=== PATIENT | male | born 1990 | race Caucasian/White ===

== ENCOUNTER 2021-01-30 06:47 | Observation (INO) | payer OTHER, SELFPAY ==
[2021-01-30] VITALS (7 sets, daily range): BP systolic 96–135; BP diastolic 54–74; PULSE 49–72; RESP 14–18; TEMP 35.7–37.1; O2SAT 94–98; BMI 34.7
--- NOTE | ~2021-01-30 | CT_ITS ---
EXAMINATION: XR CHEST CLINICAL INFORMATION: Wheezing. Swelling in redness left forearm. Limited range of motion left wrist. COMPARISON: None TECHNIQUE: 2 views of the chest were obtained. 3 mm thin axial and reformatted 1 mm thin sagittal and coronal images of left forearm were obtained. DLP 196. FINDINGS: Chest: Both lungs are fairly well-expanded and clear. The heart size and pulmonary vascularity is normal. No gross bony abnormality seen. Left forearm: There is no visible fracture, dislocation or periosteal thickening. There is moderate edema along the dorsal wrist. No evidence of abscess seen. Is minimal skin thickening and edema along the dorsal forearm port was the risk. No abscess, mass or mass effect seen. CT/CT forearm LT w con IMPRESSION: Nonspecific soft tissue swelling along the dorsal aspect of mid and distal forearm and wrist region. There is no fracture, periosteal thickening or dislocation involving the radius and ulna or carpal bones. No acute cardiopulmonary process seen on the chest x-ray.
[2021-01-30 09:09] LABS: MANUAL DIFF FLAG NO
[2021-01-30] MEDS: Ibuprofen 800 MG TABLET PO (09:10)
[2021-01-30] MEDS: oxyCODONE HCl Immed Release 5 MG TABLET PO (09:10)
[2021-01-30] MEDS: 0.9 % Sodium Chloride 2,121 ML 2121 ML IV (09:11)
[2021-01-30 09:12] LABS: Basophils Percent Auto 0.1 % (0-2); Eosinophils Absolute Auto 0.1 X10*3/uL (0.0-0.4); Eosinophils Percent Auto 0.7 % (0-4); Hematocrit 41.6 % (42-52); Hemoglobin 13.3 g/dl (14.0-18.0); Imm Gran Abs Auto 0.04 X10*3/uL (0.00-0.03); Imm Gran Pct Auto 0.4 % (0.0-0.4); Lymphocytes Absolute Auto 2.1 X10*3/uL (1.2-4.9); Lymphocytes Percent Auto 23.2 % (20-40); Mean Corpuscular Hemoglobin 25.2 pg (27.0-33.0); Mean Corpuscular Volume 78.8 fL (80-98); Mean Platelet Volume 9.3 fL (9.4-12.4); Monocytes Absolute Auto 0.8 X10*3/uL (0.1-1.2); Monocytes Percent Auto 8.5 % (2-11); Neutrophils Percent Auto 67.1 % (45-73); Platelet Count 240 X10*3/uL (160-400); Red Blood Count 5.28 X10*6/uL (4.60-5.80); White Blood Count 8.9 X10*3/uL (4.8-10.8)
[2021-01-30 09:16] LABS: INTERNATIONAL NORM RATIO 1.1 (0.9-1.1); Prothrombin Time 12.8 SEC (9.9-13.0)
[2021-01-30] MEDS: cefTRIAXone sodium 2 GM in 0.9 % Sodium Chloride 50 ML IV (09:19)
--- NOTE | 2021-01-30 09:25 | ED.SKABFB ---
HPI - Skin/Abscess/Foreign Bdy General Chief complaint: Skin/Abscess/Foreign Body Stated complaint: abscess/chills (iv drug user) Time Seen by Provider: 01/30/21 08:09 Source: patient Mode of arrival: ambulatory Limitations: no limitations History of Present Illness HPI narrative: 30-year-old male who is an IV drug user of heroin and cocaine who last used prior to arrival, diabetes and asthma presenting to the ED with complaints of redness/swelling to bilateral lower arms where he believes he may have an abscess to the left forearm with associated chills, pain and subjective fevers x3 days worse today. He denies any thoughts of SI/HI/auditory visual hallucinations thoughts of self-injury. He denies any dizziness, headaches, neck pain /stiffness, chest pain, shortness of breath, palpitations, nausea /vomiting /diarrhea / constipation, abdominal pain, back pain, dysuria, hematuria or any other symptoms complaints or concerns at this time. MD complaint: abscess/boil and other ( Redness) Onset (ago): day(s) ( Three days worse today) Location: LUE and RUE Severity: moderate Severity scale (1-10): 10 Quality: aching and constant Pain Consistency: constant Relieving factors: none Exacerbating factors: none Context: IVDA Associated symptoms: fever and chills Treatments prior to arrival: none Related Data Home Medications Medication Instructions Recorded Confirmed clonazepam 1 tab PO TID 01/30/21 01/30/21 clonidine HCl 1 tab PO TID 01/30/21 01/30/21 fluoxetine 1 cap PO QAM 01/30/21 01/30/21 gabapentin 1 cap PO BEDTIME 01/30/21 01/30/21 gabapentin 1 tab PO TID 01/30/21 01/30/21 metformin 1 tab PO BID 01/30/21 01/30/21 methadone [Methadone Intensol] 115 mg PO DAILY 01/30/21 01/30/21 mirtazapine 1 tab PO BEDTIME 01/30/21 01/30/21 Allergies Allergy/AdvReac Type Severity Reaction Status Date / Time Pertussis Vaccines Allergy Mild HIVES Unverified 04/17/20 17:14 [PERTUSSIS VACCINES] Review of Systems Review of Systems: Constitutional : positive fevers/chills Cardiovascular : No Chest Pain, No SOB Respiratory : No Dyspnea Gastrointestinal : No abdominal pain Musculoskeletal : No Joint Swelling Skin : positive skin redness/pain/swelling, No laceration, No Foreign bodies, No rash Neuro : No Weakness, No Numbness/tingling Psych : No SI/HI/thoughts of self injury Yes all other systems are reviewed and are negative [facility] Past Medical History Attestation statement: The following information was validated with the patient. Medical History Anxiety Asthma Depression Diabetes IVDU (intravenous drug user) Family History Family History (Updated 01/30/21 @ 15:20 by RAQUEL Valdovinos) Father Heart disease Social History Social History (Updated 01/30/21 @ 15:21 by RAQUEL Valdovinos) Alcohol intake: never Patient Tobacco Use Status: Current someday Tobacco user Cigarette Packs Per Day: 0.5 Use of substances other than those prescribed or required for medical reasons: No Substance Use Type: Crack/Cocaine, Heroin and IV Drugs Advance Directives: Yes Advance Directives Information Provided: No Advance Directives on File: No Physical Exam Vital Signs: Vital Signs: Last Vital Signs Temp 96.2 F L 01/30/21 14:03 Pulse 50 01/30/21 14:03 Resp 14 01/30/21 14:03 BP 96/54 L 01/30/21 14:03 Pulse Ox 97 01/30/21 14:03 Body Mass Index 34.7 vital signs have been reviewed as normal and appeared to be correct. Blood pressure normal. Heart rate normal. Respiration rate normal. Temperature normal. Oxygen saturation normal. Appearance: Alert. Oriented X3. No acute distress. Head: Normal external exam. Normocephalic. Atraumatic. Eyes: PERRLA. EOMI. Conjunctiva and sclera normal. Eyelids normal. ENT: Pharynx normal. Uvula midline. Moist mucous membranes. Neck: Normal inspection. Neck supple. FROM. No adenopathy. No meningeal signs. No neck mass noted. CVS: Normal heart rate and rhythm. Heart sound normal. Pulses normal throughout. No murmurs/rales/gallops. Respiratory: No respiratory distress. Painless inspiration. Breath sounds normal. No wheezes/rales/rhonchi noted. Chest nontender. No accessory muscle usage noted or decreased air movement noted. Back: Full range of motion noted. No rashes/lesion/induration/fluctuance or signs of infection noted. Skin: Skin warm and dry. Normal skin color. Normal skin turgor. No rashes/lacerations noted. Extremities: to left forearm at the dorsal mid to distal aspect patient is noted to have moderate erythema surrounding an injection site with induration. No fluctuance/streaking /foreign bodies noted. Although to the left wrist patient does have limited range of motion. No laxity is noted. patient also has mild surrounding erythema to other injection sites to bilateral forearms no streaking/induration /fluctuance /foreign bodies noted at this time. And patient has full range of motion of all other joints. No upper or lower extremity edema noted. No calf tenderness is noted. All other Extremities exhibit normal range of motion and nontender. Neuro: Oriented X 3. No motor deficit. No sensory deficit. Reflexes normal. Normal steady gait. No focal neuro deficits noted. Vascular: + radial pulses/+ 2 distal pedal pulses/+2 dorsalis pedis b/l. Normal cap refill. No cyanosis noted to upper extremity nails and lower extremity toes nails. Course Course Course Narrative: 8:20am - 30-year-old male who is an IV drug user of heroin and cocaine who last used prior to arrival, diabetes and asthma presenting to the ED with complaints of redness/swelling to bilateral forearms for the past 3 days worse today with associated chills and subjective fevers, Plan: Labs, Blood cultures, lactic acid. Provide a L of IV fluids. 2 g of Rocephin. 5 mg of oxycodone and 100 mg of ibuprofen for the patient's pain. Obtain a CT scan of forearm of the left with contrast to evaluate for possible abscesses or any other acute processes. Then re-evaluate. Reevaluation(s) Reevaluation #1: - Labs returned and patient with mild anemia. ESR 20. Random glucose 127. CRP 13.31. Otherwise all other labs are within normal limits. - The nurse had told me that the patient has some wheezing on exam and when I examine the patient the patient did have some wheezing therefore I obtained a chest x-ray which was negative for any acute processes. I also gave the patient 4 puffs from the albuterol inhaler and 60 mg of prednisone and his exam improved. - CT scan of left forearm with contrast negative for abscess although revealed nonspecific soft tissue swelling along the dorsal aspect of the mid and distal forearm and wrist region. No other acute processes were noted. - Therefore I consulted with who will admit at this time. Patient understands agrees with this plan. Time: 13:21 MDM - Skin/Abscess/Foreign Bdy Medical Records Attestation: I reviewed the patient's medical records. Lab Data Attestation: I reviewed the patient's lab results. Result diagrams: 01/30/21 09:03 01/30/21 09:03 Labs: Lab Results 01/30/21 01/30/21 01/30/21 Range/Units 09:03 09:03 09:03 WBC 8.9 (4.8-10.8) X10*3/uL RBC 5.28 (4.60-5.80) X10*6/uL Hgb 13.3 L (14.0-18.0) g/dl Hct 41.6 L (42-52) % MCV 78.8 L (80-98) fL MCH 25.2 L (27.0-33.0) pg MCHC 32.0 (31.0-36.0) g/dl RDW 13.0 (11.0-16.0) % Plt Count 240 (160-400) X10*3/uL MPV 9.3 L (9.4-12.4) fL Immature Gran % (Auto) 0.4 (0.0-0.4) % Neut % (Auto) 67.1 (45-73) % Lymph % (Auto) 23.2 (20-40) % [place] % (Auto) 8.5 (2-11) % Eos % (Auto) 0.7 (0-4) % Baso % (Auto) 0.1 (0-2) % Lymph # (Auto) 2.1 (1.2-4.9) X10*3/uL [place] # (Auto) 0.8 (0.1-1.2) X10*3/uL Eos # (Auto) 0.1 (0.0-0.4) X10*3/uL Baso # (Auto) 0.0 (0.0-0.2) X10*3/uL Abs Immat Gran (auto) 0.04 H (0.00-0.03) X10*3/uL Absolute Neuts (auto) 6.0 (2.0-8.3) X10*3/uL Absolute Nucleated RBC 0.000 (0.0-0.012) X10*3/uL Nucleated RBC % (auto) 0.0 (0.0-0.2) /100WBC ESR 20 H (0-15) MM/HR PT 12.8 (9.9-13.0) SEC INR 1.1 (0.9-1.1) Sodium (135-145) mmol/L Potassium (3.3-5.1) mmol/L Chloride (96-108) mmol/L Carbon Dioxide (22-29) mmol/L Anion Gap (12-20) BUN (9-16) mg/dL Creatinine (0.5-1.4) mg/dL Estim Creat Clear Calc Estimated GFR Random Glucose (60-115) mg/dL Lactic Acid (0.5-2.0) mmol/L Calcium (8.4-10.2) mg/dL Magnesium (1.6-2.6) mg/dL Total Bilirubin (0.0-1.0) mg/dL AST (5-37) U/L ALT (0-40) U/L Alkaline Phosphatase (39-117) U/L C-Reactive Protein (< or = 0.50) mg/dL Total Protein (6.5-8.0) g/dL Albumin (3.5-5.0) g/dL COVID-19 (GALDINO) (Negative) COVID-19 Clin Com 01/30/21 01/30/21 01/30/21 Range/Units 09:03 09:03 11:22 WBC (4.8-10.8) X10*3/uL RBC (4.60-5.80) X10*6/uL Hgb (14.0-18.0) g/dl Hct (42-52) % MCV (80-98) fL MCH (27.0-33.0) pg MCHC (31.0-36.0) g/dl RDW (11.0-16.0) % Plt Count (160-400) X10*3/uL MPV (9.4-12.4) fL Immature Gran % (Auto) (0.0-0.4) % Neut % (Auto) (45-73) % Lymph % (Auto) (20-40) % [place] % (Auto) (2-11) % Eos % (Auto) (0-4) % Baso % (Auto) (0-2) % Lymph # (Auto) (1.2-4.9) X10*3/uL [place] # (Auto) (0.1-1.2) X10*3/uL Eos # (Auto) (0.0-0.4) X10*3/uL Baso # (Auto) (0.0-0.2) X10*3/uL Abs Immat Gran (auto) (0.00-0.03) X10*3/uL Absolute Neuts (auto) (2.0-8.3) X10*3/uL Absolute Nucleated RBC (0.0-0.012) X10*3/uL Nucleated RBC % (auto) (0.0-0.2) /100WBC ESR (0-15) MM/HR PT (9.9-13.0) SEC INR (0.9-1.1) Sodium 137 (135-145) mmol/L Potassium 4.0 (3.3-5.1) mmol/L Chloride 102 (96-108) mmol/L Carbon Dioxide 25 (22-29) mmol/L Anion Gap 14 (12-20) BUN 12 (9-16) mg/dL Creatinine 0.97 (0.5-1.4) mg/dL Estim Creat Clear Calc 133.9 Estimated GFR > 60 Random Glucose 127 H (60-115) mg/dL Lactic Acid 1.4 (0.5-2.0) mmol/L Calcium 9.8 (8.4-10.2) mg/dL Magnesium 2.1 (1.6-2.6) mg/dL Total Bilirubin 0.6 (0.0-1.0) mg/dL AST 11 (5-37) U/L ALT 19 (0-40) U/L Alkaline Phosphatase 80 (39-117) U/L C-Reactive Protein 13.31 H (< or = 0.50) mg/dL Total Protein 7.3 (6.5-8.0) g/dL Albumin 4.0 (3.5-5.0) g/dL COVID-19 (GALDINO) Negative (Negative) COVID-19 Clin Com See Note Imaging Data CT scan of left forearm with contrast: Attestation: I personally reviewed and interpreted this imaging study as follows: Radiologist's impression: FINDINGS: Chest: Both lungs are fairly well-expanded and clear. The heart size and pulmonary vascularity is normal. No gross bony abnormality seen. Left forearm: There is no visible fracture, dislocation or periosteal thickening. There is moderate edema along the dorsal wrist. No evidence of abscess seen. Is minimal skin thickening and edema along the dorsal forearm port was the risk. No abscess, mass or mass effect seen. XR/XR chest 2V IMPRESSION: Nonspecific soft tissue swelling along the dorsal aspect of mid and distal forearm and wrist region. There is no fracture, periosteal thickening or dislocation involving the radius and ulna or carpal bones. No acute cardiopulmonary process seen on the chest x-ray. Critical Care Time Critical Care Time Critical Care Time: Yes Total Critical Care Time: 60 Attestation: I personally attest to this time spent taking care of the patient Discharge Plan Discharge Clinical Impression: Cellulitis, IVDU (intravenous drug user) Patient Disposition: Admitted As Inpatient
[2021-01-30 09:29] LABS: Lactic Acid 1.4 mmol/L (0.5-2.0)
[2021-01-30 09:34] LABS: Alanine Aminotransferase 19 U/L (0-40); Alkaline Phosphatase 80 U/L (39-117); Anion Gap 14 (12-20); Aspartate Amino Transferase 11 U/L (5-37); Bilirubin Total 0.6 mg/dL (0.0-1.0); Blood Urea Nitrogen 12 mg/dL (9-16); C Reactive Protein 13.31 mg/dL (< or = 0.50); Calcium 9.8 mg/dL (8.4-10.2); Carbon Dioxide 25 mmol/L (22-29); Chloride 102 mmol/L (96-108); Creatinine Clr Calc Pharmacy 133.9; Estimated Glomerular Filt Rate > 60; Glucose Random 127 mg/dL (60-115); Magnesium 2.1 mg/dL (1.6-2.6); Sodium 137 mmol/L (135-145); Total Protein 7.3 g/dL (6.5-8.0)
[2021-01-30 10:19] LABS: Erythrocyte Sedimentation Rate 20 MM/HR (0-15)
[2021-01-30] MEDS: Albuterol Sulfate 90 MCG 8 GM INHALER 4 PUFF INHALE (10:31)
[2021-01-30] MEDS: predniSONE 20 MG TABLET 60 MG PO (10:32)
[2021-01-30] MEDS: iohexoL 350 MG/ML 100 ML INFUS..BTL IV (10:45)
--- NOTE | 2021-01-30 10:49 | MHC.RECOVSUP ---
Recovery Support note: Patient is a 30 year old Sudanese speaking male who presented to [facility] ED due to an abscess. Patient reported IV drug use. This movie writer met with patient to discuss his substance use and treatment options. Patient reports his father this year. His fiance was supporting him through this loss however she abruptly due to endocarditis. Patient reports he was unable to manage his grief and he relapsed as a result. Patient reports he was doing really well with his recovery prior to this. Patient was attending meetings virtually and in person. Patient reports he gets take home methadone doses from [facility]. Patient reports he had a sponsor however reports he had a falling out. Patient states he got worse and worse and became a hermit. Patient reports he is disgusted with himself and he is ready to restart his recovery. Patient acknowledges that using has not helped his grief and he is interested in getting a therapist. Patient reports he has a psychiatrist who manages his medication for anxiety and depression and that he plans to have his psychiatrist refer him to therapy. Patient reports he has felt suicidal in the past however reports he has not felt suicidal in a while. Patient has a mother and a friend who are supportive. Patient reports he has been getting abscesses frequently and he does not want to lose his arm or get endocarditis. Discussed early recovery and resources with patient.
[2021-01-30 11:41] LABS: COVID-19 Test Negative (Negative)
--- NOTE | 2021-01-30 13:51 | PC.NURSE ---
THIS RN SPOKE W/ RASHAWN ARMANDO FROM [facility] VERIFYING PT'S LAST METHADONE DOSE OF 115MG 01/24, PT GIVEN 13 TAKE HOME BOTTLES OF 115MG TO COVER 01/25 TO 02/06
--- NOTE | 2021-01-30 15:10 | P.HPHOSP_ITS ---
History of Present Illness Date of Service: 01/30/21 <RAQUEL Valdovinos - Last Filed: 01/30/21 15:33> Chief Complaint: left arm pain <RAQUEL Valdovinos - Last Filed: 01/30/21 15:33> this is a 30-year-old male with a history of asthma, anxiety, IVDU on methadone who presents to the ED with complaints of pain in left arm. He injected into his left arm a few days ago and has noticed redness and swelling since that time. He has had associated fever and chills. The area is painful. X-ray showed soft tissue swelling the dorsal aspect of mid and distal forearm and wrist region. There was no evidence of abscess. In the emergency department he was afebrile. He had no leukocytosis. CRP was13, ESR 20. He was started on IV antibiotics and the decision was made to admit him for further management of left arm cellulitis. <RAQUEL Valdovinos - Last Filed: 09/21 15:33> Review of Systems Review of Systems: Yes all other systems are reviewed and are negative <RAQUEL Valdovinos - Last Filed: 01/30/21 15:33> Constitutional: Constitutional: Reports chills and Reports fever(s) <RAQUEL Valdovinos - Last Filed: 01/30/21 15:33> Cardiovascular: Cardiovascular: Denies chest pain <RAQUEL Valdovinos Last Filed: 01/30/21 15:33> Gastrointestinal: Gastrointestinal: Denies abdominal pain <RAQUEL Valdovinos Last Filed: 01/30/21 15:33> [facility] Medical History: Medical History Anxiety Asthma Depression Diabetes IVDU (intravenous drug user) <RAQUEL Valdovinos Last Filed: 01/30/21 15:33> Family History: Family History (Updated 01/30/21 @ 15:20 by RAQUEL Valdovinos) Father Heart disease <RAQUEL Valdovinos Last Filed: 01/30/21 15:33> Social History: Social History (Updated 01/30/21 @ 15:21 by RAQUEL Valdovinos) Household Members: Family Housing: House Do you presently have visiting nurse or other home services: No Alcohol intake: never Patient Tobacco Use Status: Current someday Tobacco user Tobacco use type: Cigarette Cigarette Packs Per Day: 1 Cigarettes Per Day: 20.0 Years Smoked: 14 Smoked in Last 30 Days: Yes e-Cigarette/Vaping Use: Never Used Patient Interested in Nicotine Replacement: Yes Patient Given Instructions on How to Stop Smoking: Yes Date Education Initiated: 01/30/21 Second Hand Smoke Exposure: No Use of substances other than those prescribed or required for medical reasons: Yes Substance Use Type: Crack/Cocaine and Heroin Substance Use Frequency: Daily Last Used Substance: Just Prior to Admission Currently Displaying Signs/Symptoms of Drug Intoxication Withdrawal: No Any prior treatment program specific to substance use: Yes Have you been hit, kicked, punched, or otherwise hurt by someone within the past year? If so, by whom?: No Do you feel safe in your current relationship?: No Current Relationship Is there a partner from a previous relationship who is making you feel unsafe now?: No Are you made to feel afraid or neglected: No Advance Directives: Yes Advance Directives Information Provided: No Advance Directives on File: No Advance Directives Date on File: 01/30/21 Do you have thoughts of harming others: None Do you have a plan to hurt others: No Plan Recently lost weight without trying: No Eating poorly because of decreased appetite: No Nutrition Risks: No Nutritional Risk Poor oral hygiene: No <RAQUEL Valdovinos - Last Filed: 01/30/21 15:33> Meds Allergies/Adverse reactions: Allergies Allergy/AdvReac Type Severity Reaction Status Date / Time Pertussis Vaccines Allergy Mild HIVES Verified 01/30/21 16:33 [PERTUSSIS VACCINES] <RAQUEL Valdovinos - Last Filed: 01/30/21 15:33> Active Medications: Current Medications Generic Name Dose Route Start Last Admin Trade Name Freq PRN Reason Stop Dose Admin Hydroxyzine HCl 25 mg 01/30/21 15:05 Hydroxyzine Hcl 25 Mg Tablet PO Q6H PRN withdrawal symptoms Piperacillin Sod/Tazobactam 50 mls @ 100 mls/hr 01/30/21 15:05 Sod 3.375 gm/ Sodium Chloride IV Q6H [facility] Insulin Human Lispro 0 unit 01/30/21 16:30 Insulin Lispro 100 Unit/Ml 3 Ml Vial SUBCUT QIDACHS [facility] Protocol Ketorolac Tromethamine 15 mg 01/30/21 15:05 Ketorolac Tromethamine 15 Mg/Ml Vial IVPUSH Q6H PRN Pain, Moderate (Pain Scale 4-6 Ondansetron HCl 4 mg 01/30/21 15:05 Ondansetron Hcl 4 Mg/2 Ml Vial IVPUSH Q8H PRN Nausea and Vomiting Pharmacy Consult 1 each 01/30/21 15:05 Consult Rx Vancomycin Dosing MISCELLANE DAILY PRN Consult order <RAQUEL Valdovinos - Last Filed: 01/30/21 15:33> Home medications: Home Medications Medication Instructions Recorded Confirmed Last Taken Type clonazepam 1 tab PO TID 01/30/21 01/30/21 01/29/21 History clonidine HCl 1 tab PO TID 01/30/21 01/30/21 01/30/21 History fluoxetine 1 cap PO QAM 01/30/21 01/30/21 01/30/21 History gabapentin 1 cap PO BEDTIME 01/30/21 01/30/21 01/29/21 History gabapentin 1 tab PO TID 01/30/21 01/30/21 01/30/21 History metformin 1 tab PO BID 01/30/21 01/30/21 Unknown History methadone [Methadone Intensol] 115 mg PO DAILY 01/30/21 01/30/21 01/30/21 History mirtazapine 1 tab PO BEDTIME 01/30/21 01/30/21 01/29/21 History <RAQUEL Valdovinos - Last Filed: 01/30/21 15:33> Physical Exam Vital Signs and Narrative: Vital Signs: Last Vital Signs Temp 96.2 F L 01/30/21 14:03 Pulse 50 01/30/21 14:03 Resp 14 01/30/21 14:03 BP 96/54 L 01/30/21 14:03 Pulse Ox 97 01/30/21 14:03 Body Mass Index 34.7 <RAQUEL Valdovinos - Last Filed: 01/30/21 15:33> Const: General: comfortable, no acute distress, alert and awake <RAQUEL Valdovinos - Last Filed: 01/30/21 15:33> Nutritional Appearance: well nourished and overweight <RAQUEL Valdovinos - Last Filed: 01/30/21 15:33> Orientation/consciousness: patient oriented x3 <RAQUEL Valdovinos - Last Filed: 01/30/21 15:33> HENMT: Head: Yes normocephalic and Yes atraumatic <RAQUEL Valdovinos - Last Filed: 01/30/21 15:33> Eyes: Sclerae: sclerae normal <RAQUEL Valdovinos - Last Filed: 01/30/21 15:33> Resp: Effort & Inspection: normal respiratory effort and no respiratory distr ess <RAQUEL Valdovinos - Last Filed: 01/30/21 15:33> Cardio: Rate: regular rate <RAQUEL Valdovinos - Last Filed: 01/30/21 15:33> Rhythm: regular rhythm <RAQUEL Valdovinos - Last Filed: 01/30/21 15:33> GI: Palpation (GI): Soft to palpation and nontender <RAQUEL Valdovinos - Last Filed: 01/30/21 15:33> Skin: Other: <RAQUEL Valdovinos - Last Filed: 01/30/21 15:33> Neuro: General: patient oriented x3 <RAQUEL Valdovinos - Last Filed: 01/30/21 15:33> Cranial nerves: Yes CN's II-XII intact bilaterally and Yes Bilaterally intact EOM present <RAQUEL Valdvoinos - Last Filed: 01/30/21 15:33> Results Labs CBC and Chem 7: : 01/30/21 09:03 01/30/21 09:03 <RAQUEL Valdovinos - Last Filed: 01/30/21 15:33> Labs: Laboratory Results - last 24 hr 01/30/21 01/30/21 01/30/21 09:03 09:03 09:03 MCV 78.8 L MCH 25.2 L MCHC 32.0 RDW 13.0 Plt Count 240 MPV 9.3 L Immature Gran % (Auto) 0.4 Neut % (Auto) 67.1 Lymph % (Auto) 23.2 [place] % (Auto) 8.5 Eos % (Auto) 0.7 Baso % (Auto) 0.1 Lymph # (Auto) 2.1 [place] # (Auto) 0.8 Eos # (Auto) 0.1 Baso # (Auto) 0.0 Abs Immat Gran (auto) 0.04 H Absolute Neuts (auto) 6.0 Absolute Nucleated RBC 0.000 Nucleated RBC % (auto) 0.0 ESR 20 H PT 12.8 INR 1.1 Anion Gap Estim Creat Clear Calc Estimated GFR Random Glucose Lactic Acid Calcium Magnesium Total Bilirubin AST ALT Alkaline Phosphatase C-Reactive Protein Total Protein Albumin COVID-19 (GALDINO) COVID-19 Clin Com 01/30/21 01/30/21 01/30/21 09:03 09:03 11:22 MCV MCH MCHC RDW Plt Count MPV Immature Gran % (Auto) Neut % (Auto) Lymph % (Auto) [place] % (Auto) Eos % (Auto) Baso % (Auto) Lymph # (Auto) [place] # (Auto) Eos # (Auto) Baso # (Auto) Abs Immat Gran (auto) Absolute Neuts (auto) Absolute Nucleated RBC Nucleated RBC % (auto) ESR PT INR Anion Gap 14 Estim Creat Clear Calc 133.9 Estimated GFR > 60 Random Glucose 127 H Lactic Acid 1.4 Calcium 9.8 Magnesium 2.1 Total Bilirubin 0.6 AST 11 ALT 19 Alkaline Phosphatase 80 C-Reactive Protein 13.31 H Total Protein 7.3 Albumin 4.0 COVID-19 (GALDINO) Negative COVID-19 Clin Com See Note <RAQUEL Valdovinos - Last Filed: 01/30/21 15:33> Imaging Radiologist's Impressions: Impressions Forearm CT 01/30/21 09:37 IMPRESSION: Nonspecific soft tissue swelling along the dorsal aspect of mid and distal forearm and wrist region. There is no fracture, periosteal thickening or dislocation involving the radius and ulna or carpal bones. No acute cardiopulmonary process seen on the chest x-ray. Chest X-Ray 01/30/21 10:57 IMPRESSION: Nonspecific soft tissue swelling along the dorsal aspect of mid and distal forearm and wrist region. There is no fracture, periosteal thickening or dislocation involving the radius and ulna or carpal bones. No acute cardiopulmonary process seen on the chest x-ray. <RAQUEL Valdovinos - Last Filed: 01/30/21 15:33> Assessment and Plan (1) IVDU (intravenous drug user): Status: Inactive <RAQUEL Valdovinos - Last Filed: 01/30/21 15:33> (2) Cellulitis: Status: Acute <RAQUEL Valdovinos - Last Filed: 01/30/21 15:33> (3) Diabetes: Status: Acute <RAQUEL Valdovinos - Last Filed: 01/30/21 15:33> (4) Asthma: Status: Acute <RAQUEL Valdovinos - Last Filed: 01/30/21 15:33> This is a 30-year-old male with a history anxiety, depression diabetes, asthma, IVDU on methadone presents to the emergency with left arm pain and swelling found to cellulitis left arm cellulitis in the setting IVDU and diabetes no evidence of abscess no sepsis - IV vancomycin and Zosyn - follow blood cultures - Pain control with Toradol IVDU - continue home dose of methadone - p.r.n. Atarax for withdrawal symptoms - hold clonidine due to soft blood pressure - consult to Addiction Medicine diabetes non compliant with diabetic diet or metformin - hold metformin - check HbA1c - SSI, POC tobacco dependence smoking cessation has been advised -NRT anxiety/depression -continue home clonazepam, fluoxetine, mirtazapine -will check EKG to assess Qtc dvt ppx - lovenox code status - full code Attending: Dr. Lewis <RAQUEL Valdovinos - Last Filed: 01/30/21 15:33> Quality Stroke Does the patient have a stroke diagnosis?: No <RAQUEL Valdovinos - Last Filed: 01/30/21 15:33> VTE Prior VTE?: No <RAQUEL Valdovinos - Last Filed: 01/30/21 15:33> VTE Risk Level:: Medical - moderate - high <RAQUEL Valdovinos - Last Filed: 01/30/21 15:33> VTE Device Contraindication: Treatment Not Indicated <RAQUEL Valdovinos - Last Filed: 01/30/21 15:33> VTE Drug Contraindication: N/A - Med Ordered <RAQUEL Valdovinos - Last Filed: 01/30/21 15:33>
--- NOTE | 2021-01-30 15:13 | PHA.MEDREC ---
Pharmacy Consult ? Medication Reconciliation Pharmacy has completed the medication reconciliation.
[2021-01-30] MEDS: Piperacillin Sodium/Tazobactam 3.375 GM in 0.9 % Sodium Chloride 50 ML IV ×2 (15:39→22:32)
[2021-01-30] MEDS: FLUoxetine HCl 20 MG CAPSULE 40 MG PO (15:39)
[2021-01-30] MEDS: Enoxaparin Sodium 40 MG/0.4 ML SYRINGE SUBCUT (15:39)
[2021-01-30] MEDS: Nicotine 14 MG PATCH.TD24 TRANSDERMA (15:39)
[2021-01-30] MEDS: 0.9 % Sodium Chloride 1,000 ML 100 ML IVCONT (15:55)
[2021-01-30 16:18] LABS: Estimated Average Glucose 157 mg/dL; Hemoglobin A1c % 7.1 %
[2021-01-30 16:26] LABS: Glucose, Whole Blood 164 mg/dL (60-115)
[2021-01-30] MEDS: vancomycin HCL 1,250 MG in 0.9 % Sodium Chloride 250 ML 166.67 MG IV (16:29)
[2021-01-30] MEDS: Insulin Lispro 100 UNIT/ML 3 ML VIAL SUBCUT ×2 (16:30→20:47)
--- NOTE | 2021-01-30 17:15 | PM.EVENT ---
Event Note Date of Service: 01/30/21 Event Note: Addiction note: Chart and case reviewed with RSC and RS RN. Patient established with [facility] provider, methadone dose verified and ordered. RSC to continue following and provide resources and support as needed.
[2021-01-30 20:33] LABS: Glucose, Whole Blood 336 mg/dL (60-115)
[2021-01-30] MEDS: Mirtazapine 15 MG TABLET PO (20:47)
[2021-01-30] MEDS: Gabapentin 300 MG CAPSULE PO (20:47)
[2021-01-30] MEDS: clonazePAM 1 MG TABLET PO (20:47)
[2021-01-30] MEDS: Gabapentin 600 MG TABLET PO (20:47)
--- NOTE | 2021-01-31 | ECG_ITS ---
Test Reason : wang Blood Pressure : / mmHG Vent. Rate : 040 BPM Atrial Rate : 040 BPM P-R Int : 164 ms QRS Dur : 062 ms QT Int : 526 ms P-R-T Axes : 057 034 020 degrees QTc Int : 428 ms Marked sinus bradycardia Abnormal ECG When compared to the previous EKG of Vent. rate has decreased Referred By: Lonnie Valladares Electronically Signed By:KATELYNN DE LOS SANTOS MD
[2021-01-31] MEDS: 0.9 % Sodium Chloride 1,000 ML 100 ML IVCONT (03:17)
[2021-01-31] MEDS: vancomycin HCL 1,250 MG in 0.9 % Sodium Chloride 250 ML 166.67 MG IV ×2 (04:50→16:39)
[2021-01-31] MEDS: Piperacillin Sodium/Tazobactam 3.375 GM in 0.9 % Sodium Chloride 50 ML IV ×4 (04:52→20:59)
[2021-01-31 06:55] LABS: Hematocrit 39.8 % (42-52); Hemoglobin 12.5 g/dl (14.0-18.0); Mean Corpuscular HGB Conc 31.4 g/dl (31.0-36.0); Mean Corpuscular Hemoglobin 25.2 pg (27.0-33.0); Mean Corpuscular Volume 80.1 fL (80-98); Mean Platelet Volume 10.7 fL (9.4-12.4); Platelet Count 175 X10*3/uL (160-400); Red Blood Count 4.97 X10*6/uL (4.60-5.80); Red Cell Distribution Width 13.2 % (11.0-16.0); White Blood Count 7.7 X10*3/uL (4.8-10.8)
[2021-01-31 07:13] VITALS: BP 115/62; PULSE 50; RESP 18; TEMP 35.6
[2021-01-31 07:21] LABS: Anion Gap 14 (12-20); Blood Urea Nitrogen 10 mg/dL (9-16); Carbon Dioxide 19 mmol/L (22-29); Chloride 112 mmol/L (96-108); Creatinine Clr Calc Pharmacy 168.7; Estimated Glomerular Filt Rate > 60; Glucose Random 147 mg/dL (60-115); Sodium 140 mmol/L (135-145)
[2021-01-31 07:41] LABS: Glucose, Whole Blood 137 mg/dL (60-115)
--- NOTE | 2021-01-31 08:45 | MHC.CM.PN ---
Addendum entered by Dolores Villalta 01/31/21 09:58: DARRELL 01/31/21 Original Note: MALE 30 DX IVDA ABSCESS LIVES WITH MOTHER. INDEPENDENT ALL FUNCTIONAL MOBILITY. DP HOME NO SERVICES WITH FAMILY TRANSPORT VS [facility] LT ABX VIA BLS
[2021-01-31] MEDS: Nicotine 14 MG PATCH.TD24 TRANSDERMA (09:34)
[2021-01-31] MEDS: clonazePAM 1 MG TABLET PO ×3 (09:35→20:58)
[2021-01-31] MEDS: Gabapentin 600 MG TABLET PO ×3 (09:35→20:57)
[2021-01-31] MEDS: FLUoxetine HCl 20 MG CAPSULE 40 MG PO (09:35)
[2021-01-31 10:15] VITALS: PULSE 72
[2021-01-31 10:30] VITALS: PULSE 68
[2021-01-31 10:51] VITALS: BP 114/74; PULSE 43; RESP 18; TEMP 35.9; O2SAT 98
[2021-01-31 11:19] LABS: Glucose, Whole Blood 276 mg/dL (60-115)
[2021-01-31] MEDS: Insulin Lispro 100 UNIT/ML 3 ML VIAL SUBCUT ×2 (11:51→20:58)
--- NOTE | 2021-01-31 12:43 | P.PNIM_ITS ---
Subjective Subjective Date of Service: 01/31/21 <RAQUEL Valdovinos - Last Filed: 01/31/21 12:51> 01/31/21 <Kal Ruiz MD - Last Filed: 01/31/21 15:53> Interval History: seen and examined this morning improvement in left arm pain HR noted to be in 40s, denies dizziness, SOB. states HR always low but usually in 50s & 60s <RAQUEL Valdovinos - Last Filed: 01/31/21 12:51> Review of Systems Review of Systems: Yes all other systems are reviewed and are negative <RAQUEL Valdovinos - Last Filed: 01/31/21 12:51> Constitutional Constitutional: Reports chills and Denies fever(s) <RAQUEL Valdovinos - Last Filed: 01/31/21 12:51> Cardiovascular Cardiovascular: Denies chest pain <RAQUEL Valdovinos - Last Filed: 01/31/21 12:51> Respiratory Respiratory: Denies cough <RAQUEL Valdovinos - Last Filed: 01/31/21 12:51> Gastrointestinal Gastrointestinal: Denies abdominal pain <RAQUEL Valdovinos - Last Filed: 01/31/21 12:51> Physical Exam Vital Signs: Vital Signs: Last Vital Signs Temp 96.6 F L 01/31/21 10:51 Pulse 43 L 01/31/21 10:51 Resp 18 01/31/21 10:51 BP 114/74 01/31/21 10:51 Pulse Ox 98 01/31/21 10:51 Body Mass Index 34.7 <RAQUEL Valdovinos - Last Filed: 01/31/21 12:51> Const: General: comfortable, no acute distress, alert and awake <RAQUEL Valdovinos Last Filed: 01/31/21 12:51> Nutritional Appearance: well nourished and overweight <RAQUEL Valdovinos - Last Filed: 01/31/21 12:51> Orientation/consciousness: patient oriented x3 <RAQUEL Valdovinos Last Filed: 01/31/21 12:51> HENMT: Head: Yes normocephalic and Yes atraumatic <RAQUEL Valdovinos Last Filed: 01/31/21 12:51> Eyes: Sclerae: sclerae normal <RAQUEL Valdovinos Last Filed: 01/31/21 12:51> Resp: Effort & Inspection: normal respiratory effort and no respiratory distress <RAQUEL Valdovinos Last Filed: 01/31/21 12:51> Cardio: Rate: regular rate <RAQUEL Valdovinos Last Filed: 01/31/21 12:51> Rhythm: regular rhythm <RAQUEL Valdovinos Last Filed: 01/31/21 12:51> GI: Palpation (GI): Soft to palpation and nontender <RAQUEL Valdovinos Last Filed: 01/31/21 12:51> Skin: Other: some improvement in erythema and swelling to left hand/arm <RAQUEL Valdovinos Last Filed: 01/31/21 12:51> Neuro: General: patient oriented x3 <RAQUEL Valdovinos Last Filed: 01/31/21 12:51> Cranial nerves: Yes CN's II-XII intact bilaterally and Yes Bilaterally intact EOM present <RAQUEL Valdovinos Last Filed: 01/31/21 12:51> Objective Data Current Medications Generic Name Dose Route Start Last Admin Trade Name Freq PRN Reason Stop Dose Admin Acetaminophen 650 mg 01/30/21 15:19 Acetaminophen 325 Mg Tablet PO Q6H PRN Pain, Mild (Pain Scale 1-3) Albuterol Sulfate 2.5 mg 01/30/21 15:16 Albuterol Sulfate (0.083%) 2.5 Mg/3 Ml Vial.Neb INHALE RQ4H PRN Shortness of Breath/Wheezing Clonazepam 1 mg 01/30/21 21:00 01/31/21 09:35 Clonazepam 1 Mg Tablet PO 1 mg TID SUKHDEEP Administration Docusate Sodium 100 mg 01/30/21 15:19 Docusate Sodium 100 Mg Capsule PO DAILY PRN Constipation Enoxaparin Sodium 40 mg 01/30/21 15:19 01/30/21 15:39 Enoxaparin Sodium 40 Mg/0.4 Ml Syringe SUBCUT 40 mg Q24H SUKHDEEP Administration Fluoxetine HCl 40 mg 01/30/21 15:19 01/31/21 09:35 Fluoxetine Hcl 20 Mg Capsule PO 40 mg DAILY SUKHDEEP Administration Gabapentin 300 mg 01/30/21 21:00 01/30/21 20:47 Gabapentin 300 Mg Capsule PO 300 mg BEDTIME SUKHDEEP Administration Gabapentin 600 mg 01/30/21 21:00 01/31/21 09:35 Gabapentin 600 Mg Tablet PO 600 mg TID SUKHDEEP Administration Hydroxyzine HCl 25 mg 01/30/21 15:05 Hydroxyzine Hcl 25 Mg Tablet PO Q6H PRN withdrawal symptoms Piperacillin Sod/Tazobactam 50 mls @ 100 mls/hr 01/30/21 16:00 01/31/21 10:09 Sod 3.375 gm/ Sodium Chloride IV Infused Q6H SUKHDEEP Infusion Vancomycin HCl 1,250 mg/ 250 mls @ 166.667 mls/hr 01/30/21 16:00 01/31/21 06:27 Sodium Chloride IV Infused Q12H SUKHDEEP Infusion Insulin Human Lispro 0 unit 01/30/21 16:30 01/31/21 11:51 Insulin Lispro 100 Unit/Ml 3 Ml Vial SUBCUT 6 unit QIDACHS SUKHDEEP Administration Protocol Ketorolac Tromethamine 15 mg 01/30/21 15:05 Ketorolac Tromethamine 15 Mg/Ml Vial IVPUSH Q6H PRN Pain, Moderate (Pain Scale 4-6 Magnesium Hydroxide 30 ml 01/30/21 15:19 Milk Of Magnesia 30 Ml Oral.Susp PO DAILY PRN Constipation Melatonin 6 mg 01/30/21 15:19 Melatonin 3 Mg Tablet PO BEDTIME PRN Insomnia Methadone HCl 110 mg 01/31/21 09:00 01/31/21 09:34 Methadone Hcl 1 Mg/0.1 Ml Oral.Conc PO 110 mg DAILY SUKHDEEP Administration Mirtazapine 15 mg 01/30/21 21:00 01/30/21 20:47 Mirtazapine 15 Mg Tablet PO 15 mg BEDTIME SUKHDEEP Administration Nicotine 14 mg 01/30/21 15:25 01/31/21 09:34 Nicotine 14 Mg Patch.Td24 TRANSDERMA 14 mg DAILY SUKHDEEP Administration Ondansetron HCl 4 mg 01/30/21 15:05 Ondansetron Hcl 4 Mg/2 Ml Vial IVPUSH Q8H PRN Nausea and Vomiting Pharmacy Consult 1 each 01/30/21 15:05 Consult Rx Vancomycin Dosing MISCELLANE DAILY PRN Consult order Sodium Chloride 3 ml 01/30/21 16:00 01/31/21 07:44 0.9 % Sodium Chloride Flush 3 Ml Syringe IVFLUSH Not Given QSHIFT SUKHDEEP <RAQUEL Valdovinos - Last Filed: 01/31/21 12:51> Labs CBC & Chem 7: : 01/31/21 05:55 01/31/21 05:55 <RAQUEL Valdovinos - Last Filed: 01/31/21 12:51> Labs: Laboratory Results - last 24 hr 01/30/21 01/30/21 01/30/21 09:03 16:16 20:19 WBC RBC Hgb Hct MCV MCH MCHC RDW Plt Count MPV Absolute Nucleated RBC Nucleated RBC % (auto) Sodium Potassium Chloride Carbon Dioxide Anion Gap BUN Creatinine Estim Creat Clear Calc Estimated GFR POC Glucose 164 H 336 H Random Glucose Estimat Average Glucose 157 Hemoglobin A1c % 7.1 Calcium 01/31/21 01/31/21 01/31/21 05:55 05:55 07:08 WBC 7.7 RBC 4.97 Hgb 12.5 L Hct 39.8 L MCV 80.1 MCH 25.2 L MCHC 31.4 RDW 13.2 Plt Count 175 D MPV 10.7 Absolute Nucleated RBC 0.000 Nucleated RBC % (auto) 0.0 Sodium 140 Potassium 5.0 D Chloride 112 H Carbon Dioxide 19 L Anion Gap 14 BUN 10 Creatinine 0.77 Estim Creat Clear Calc 168.7 Estimated GFR > 60 POC Glucose 137 H Random Glucose 147 H Estimat Average Glucose Hemoglobin A1c % Calcium 9.0 D 01/31/21 11:02 WBC RBC Hgb Hct MCV MCH MCHC RDW Plt Count MPV Absolute Nucleated RBC Nucleated RBC % (auto) Sodium Potassium Chloride Carbon Dioxide Anion Gap BUN Creatinine Estim Creat Clear Calc Estimated GFR POC Glucose 276 H Random Glucose Estimat Average Glucose Hemoglobin A1c % Calcium <RAQUEL Valdovinos - Last Filed: 01/31/21 12:51> Imaging CT scan of left forearm with contrast: Radiologist's impression: Impressions Forearm CT 01/30/21 09:37 IMPRESSION: Nonspecific soft tissue swelling along the dorsal aspect of mid and distal forearm and wrist region. There is no fracture, periosteal thickening or dislocation involving the radius and ulna or carpal bones. No acute cardiopulmonary process seen on the chest x-ray. Chest X-Ray 01/30/21 10:57 IMPRESSION: Nonspecific soft tissue swelling along the dorsal aspect of mid and distal forearm and wrist region. There is no fracture, periosteal thickening or dislocation involving the radius and ulna or carpal bones. No acute cardiopulmonary process seen on the chest x-ray. <RAQUEL Valdovinos - Last Filed: 01/31/21 12:51> Microbiology Microbiology Results: Microbiology 01/30/21 09:05 Blood Culture - Preliminary Blood - Venous No growth after 24 hours. 01/30/21 09:03 Blood Culture - Preliminary Blood - Venous No growth after 24 hours. <RAQUEL Valdovinos - Last Filed: 01/31/21 12:51> Quality Stroke Does the patient have a stroke diagnosis?: No <RAQUEL Valdovinos - Last Filed: 01/31/21 12:51> VTE Prior VTE?: No <RAQUEL Valdovinos - Last Filed: 01/31/21 12:51> VTE Risk Level:: Medical - moderate - high <RAQUEL Valdovinos - Last Filed: 01/31/21 12:51> VTE Device Contraindication: Treatment Not Indicated <RAQUEL Valdovinos - Last Filed: 01/31/21 12:51> VTE Drug Contraindication: N/A - Med Ordered <RAQUEL Valdovinos - Last Filed: 01/31/21 12:51> Assessment and Plan (1) IVDU (intravenous drug user): Status: Inactive <RAQUEL Valdovinos - Last Filed: 01/31/21 12:51> (2) Cellulitis: Status: Acute <RAQUEL Valdovinos - Last Filed: 01/31/21 12:51> (3) Diabetes: Status: Acute <RAQUEL Valdovinos - Last Filed: 01/31/21 12:51> (4) Asthma: Status: Acute <RAQUEL Valdovinos - Last Filed: 01/31/21 12:51> Assessment and Plan: This is a 30-year-old male with a history anxiety, depression diabetes, asthma, IVDU on methadone presents to the emergency with left arm pain and swelling found to cellulitis left arm cellulitis in the setting IVDU and diabetes no evidence of abscess on CT of forearm no sepsis - Continue IV vancomycin and Zosyn - blood cultures negative thus far - Pain control with Toradol Bradycardia HR in 40s. EKG with sinus bradycardia Reports h/o bradycardia. Asymptomatic. Seems to have good chronotropic response with ambulation -hold clonidine -tele monitor IVDU - continue home dose of methadone - p.r.n. Atarax for withdrawal symptoms - hold clonidine due to bradycardia - seen by addictions recovery specialist diabetes non compliant with diabetic diet or metformin HbA1c 7.1 - hold metformin - SSI, POC, ADA diet tobacco dependence smoking cessation has been advised -NRT anxiety/depression -continue home clonazepam, fluoxetine, mirtazapine -Qtc checked and under 500 dvt ppx - lovenox code status - full code Attending: Dr. Ruiz <RAQUEL Valdovinos - Last Filed: 01/31/21 12:51>
[2021-01-31 15:08] VITALS: BP 115/67; PULSE 51; RESP 15; TEMP 36; O2SAT 98
[2021-01-31] MEDS: Enoxaparin Sodium 40 MG/0.4 ML SYRINGE SUBCUT (16:00)
[2021-01-31 16:14] LABS: Glucose, Whole Blood 141 mg/dL (60-115)
--- NOTE | 2021-01-31 16:33 | MHC.RECOVSUP ---
Recovery Support note: This fiction and nonfiction prose writer followed up with patient to check in and see how he is doing. Patient reports he is doing well and his needs are being met. This fiction and nonfiction prose writer discussed [facility] and Recovery Coaching with patient. Patient reports he is interested in meeting with a Bridge Builder tomorrow or Tuesday if possible. If Bridge Builder is unable to meet with patient prior to discharge they will contact patient directly.
[2021-01-31] MEDS: 0.9 % Sodium Chloride Flush 3 ML SYRINGE IVFLUSH (16:40)
[2021-01-31 20:39] LABS: Glucose, Whole Blood 345 mg/dL (60-115)
[2021-01-31] MEDS: Mirtazapine 15 MG TABLET PO (20:57)
[2021-01-31] MEDS: Gabapentin 300 MG CAPSULE PO (20:57)
[2021-02-01] VITALS: BP 114/71; PULSE 44; RESP 18; TEMP 36.6; O2SAT 97
[2021-02-01] MEDS: 0.9 % Sodium Chloride Flush 3 ML SYRINGE IVFLUSH ×2 (01:13→08:38)
[2021-02-01 03:32] LABS: Vancomycin Trough 4.5 mcg/mL (10.0-20.0)
[2021-02-01] MEDS: Piperacillin Sodium/Tazobactam 3.375 GM in 0.9 % Sodium Chloride 50 ML IV (04:53)
--- NOTE | 2021-02-01 05:39 | PC.NURSE ---
Vanco Trough 4.5 (L) plan on giving dose and then awaiting next adjustment via [facility]
[2021-02-01] MEDS: vancomycin HCL 1,250 MG in 0.9 % Sodium Chloride 250 ML 166.67 MG IV (05:50)
[2021-02-01 07:30] VITALS: BP 125/81; PULSE 95; RESP 18; TEMP 36; O2SAT 96
[2021-02-01 07:48] LABS: Glucose, Whole Blood 94 mg/dL (60-115)
--- NOTE | 2021-02-01 08:21 | P.DS_ITS ---
DS: Providers Provider Date of Service: 02/01/21 Date of admission: 01/30/21 15:05 Primary care physician: Orlando Mahmood MD Consults: 01/30/21 15:05 Addiction Medicine Routine Consulting Provider: Trista Bolanos Reason for consultation: heroin/cocaine Has provider been notified: No DS: Diagnosis Discharge Diagnosis (1) IVDU (intravenous drug user): Status: Inactive (2) Cellulitis: Status: Acute (3) Diabetes: Status: Acute (4) Asthma: Status: Acute DS: Medications Discharge Medications Home Medications: Home Medications Medication Instructions Recorded Confirmed clonazepam 1 tab PO TID 01/30/21 01/30/21 clonidine HCl 1 tab PO TID 01/30/21 01/30/21 fluoxetine 1 cap PO QAM 01/30/21 01/30/21 gabapentin 1 cap PO BEDTIME 01/30/21 01/30/21 gabapentin 1 tab PO TID 01/30/21 01/30/21 metformin 1 tab PO BID 01/30/21 01/30/21 methadone [Methadone Intensol] 115 mg PO DAILY 01/30/21 01/30/21 mirtazapine 1 tab PO BEDTIME 01/30/21 01/30/21 DS: Summary Hospital Course Hospital Course: Admission HPI: 30-year-old male with a history of asthma, anxiety, IVDU on methadone who presents to the ED with complaints of pain in left arm. He injected into his left arm a few days ago and has noticed redness and swelling since that time. He has had associated fever and chills. The area is painful. X-ray showed soft tissue swelling the dorsal aspect of mid and distal forearm and wrist region. There was no evidence of abscess. In the emergency department he was afebrile. He had no leukocytosis. CRP was13, ESR 20. He was started on IV antibiotics and the decision was made to admit him for further management of left arm cellulitis. Hospital course: Patient was admitted for cellulitis involving his left arm likely related to intravenous drug use, there was no component of sepsis. He was treated with IV Zosyn and Vancomycin with good response. Blood cultures have been negative. He is afebrilew and WBC have been normal. He will be transitioned to oral Bactrim for an additional 5 days. His advised on avoiding ilicit substance, particulary intravenous opioid. Of note he was noted to have b radycardia with heart rate in 40s and we think this is related to Clonidine which is now discontinued and heart rate has improved. To continue all other home meds and to follow up with PCP. Discharge plan discussed with patient to his satisfaction and all questions answered. Final Diagnosis: Left amr cellulilitis related to intravenous use Bradycardia Secondary Diagnosis: Diabetes Opioid dependence Ashtma mood desorder Time Spent with Patient Time attestation: Total time spent providing and/or coordinating discharge services: Discharge coordination time: Greater than 30 minutes Quality: Stroke Does the patient have a stroke diagnosis?: No Physical Exam Vital Signs: Vital Signs: Last Vital Signs Temp 96.8 F 02/01/21 07:30 Pulse 95 02/01/21 07:30 Resp 18 02/01/21 07:30 BP 125/81 02/01/21 07:30 Pulse Ox 96 02/01/21 07:30 Body Mass Index 34.7 DS: Data Data Completed and Pending Labs on day of discharge: Laboratory Results - last 24 hr 01/31/21 01/31/21 01/31/21 11:02 15:59 20:24 POC Glucose 276 H 141 H 345 H Vancomycin Trough 02/01/21 02/01/21 02:55 07:29 POC Glucose 94 Vancomycin Trough 4.5 L Preliminary micro results at discharge 01/30/21 09:05 Blood Culture - Preliminary Blood - Venous No growth after 24 hours. 01/30/21 09:03 Blood Culture - Preliminary Blood - Venous No growth after 24 hours. Discharge Plan Discharge Anticipated Discharge Date/Time: 02/01/21 08:16 Patient Disposition: Home, Self-Care Referrals: Orlando Mahmood MD [Primary Care Provider] - 1 Week Discharge Medications: New sulfamethoxazole-trimethoprim [Bactrim DS] 800-160 mg tablet 1 tab PO BID Qty: 9 RF: 0 Continued fluoxetine 40 mg capsule 1 cap PO QAM RF: 0 metformin 500 mg tablet 1 tab PO BID RF: 0 gabapentin 600 mg tablet 1 tab PO TID RF: 0 clonazepam 1 mg tablet 1 tab PO TID RF: 0 gabapentin 300 mg capsule 1 cap PO BEDTIME RF: 0 mirtazapine 15 mg tablet 1 tab PO BEDTIME RF: 0 methadone [Methadone Intensol] 10 mg/mL Concentrate 115 mg PO DAILY RF: 0 Discontinued clonidine HCl 0.1 mg tablet 1 tab PO TID RF: 0 Discharge Orders: Discharge Order (Routine); Ordered 02/01/21 Ordered By: Kal Ruiz Diet: advance to usual diet and diabetic diet Activity on Discharge: As tolerated Stand Alone Forms: Patient Portal Discharge page Care Plan Goals: Full recovery from cellulitis Health Concerns: Cellulitis and opioid dependene Plan of Treatment: Take Bactrim as recommended and follow up with your Doctor in a week Stop taking clonidine as it is lowering your heart too low Assessment: Cellulitis that is improving, and take Bactrim as above.
[2021-02-01] MEDS: Nicotine 14 MG PATCH.TD24 TRANSDERMA (08:38)
[2021-02-01] MEDS: clonazePAM 1 MG TABLET PO (08:38)
[2021-02-01] MEDS: FLUoxetine HCl 20 MG CAPSULE 40 MG PO (08:38)
[2021-02-01] MEDS: Gabapentin 600 MG TABLET PO (08:38)
--- NOTE | 2021-02-01 13:49 | MHC.CM.PN ---
PATIENT WAS DISCHARGED HOME - SELF CARE.
== END 2021-02-01 09:37 | disposition home or self-care (01) ==
LOC: HO.ED 13:24 → HO.EDOVER 16:43 → HO.S3 16:43
PROVIDERS: Physician Assistant Medical; Admitting Provider Physician Assistant Medical; Emergency Provider Emergency Medicine Emergency Medical Services; PCP Internal Medicine; Visit Provider Internal Medicine
DX: F11.10 Opioid abuse, uncomplicated (principal); L03.90 Cellulitis, unspecified; E11.9 Type 2 diabetes mellitus without complications; J45.909 Unspecified asthma, uncomplicated; Z79.4 Long term (current) use of insulin
CPT/HCPCS: 36415; 71046; 73201; 80048; 80053; 80202; 82947; 83036; 83605; 83735; 85025; 85027; 85610; 85652; 86140; 87040; 87635; 93005; 96361; 96365; 96367; 96372; 96375; 99218; 99285; 99291; J0696; J1650; J2543; J3370; Q9967

== ENCOUNTER 2022-02-21 15:25 | Inpatient (IN) | payer OTHER, SELFPAY ==
[2022-02-21 16:07] VITALS: BP 115/87; PULSE 89; RESP 16; O2SAT 94; BMI 31.7
[2022-02-21 16:11] VITALS: TEMP 37.2
[2022-02-21 16:15] LABS: Glucose, Whole Blood 98 mg/dL (60-115)
--- NOTE | 2022-02-21 17:32 | MHC.RECOVSUP ---
? Reason for consult Recovery Support o Current location: ER W o Identified substance use concern: Heroin - Support ? Intervention: o Community resources provided o Harm reduction discussion ? Plan: o Patient awaiting crisis evaluation o Patient to follow up with [facility] after discharge ? Additional information: Met with Patient and he stated that first that he is seeking Medical assistance for some issue with some Abscesses his arm.. But patient also stated that he looking for help Mental.. That he been thinking about Killing himself.. I spoke with the care team about Patient.
--- NOTE | 2022-02-21 18:53 | ED.GENADULT ---
HPI - General Adult General Chief complaint: Skin/Abscess/Foreign Body Stated complaint: Abscesses from drug use Time Seen by Provider: 02/21/22 18:35 Source: patient Mode of arrival: ambulatory Limitations: no limitations Related Data Home Medications Medication Instructions Recorded Confirmed clonazepam 1 mg tablet 1 tab PO TID 01/30/21 01/30/21 fluoxetine 40 mg capsule 1 cap PO QAM 01/30/21 01/30/21 gabapentin 300 mg capsule 1 cap PO BEDTIME 01/30/21 01/30/21 gabapentin 600 mg tablet 1 tab PO TID 01/30/21 01/30/21 metformin 500 mg tablet 1 tab PO BID 01/30/21 01/30/21 methadone 10 mg/mL oral 115 mg PO DAILY 01/30/21 01/30/21 concentrate (Methadone Intensol) mirtazapine 15 mg tablet 1 tab PO BEDTIME 01/30/21 01/30/21 Previous Rx's Medication Instructions Recorded sulfamethoxazole 800 1 tab PO BID #9 tabs 02/01/21 mg-trimethoprim 160 mg tablet (Bactrim DS) Allergies Allergy/AdvReac Type Severity Reaction Status Date / Time Pertussis Vaccines Allergy Mild HIVES Verified 02/04/21 14:00 [PERTUSSIS VACCINES] Review of Systems Constitutional: Constitutional: Reports no additional constitutional complaints, Denies chills, Denies fever(s) and Denies night sweats Eyes: Eyes: Reports no additional eye complaints, Denies blurry vision, Denies change in vision, Denies diplopia, Denies eye discharge, Denies loss of vision and Denies eye pain ENT: Denies dizziness Cardiovascular: Cardiovascular: Reports no additional cardiovascular complaints, Denies chest pain, Denies lightheadedness, Denies Loss of Consciousness and Denies dyspnea Respiratory: Respiratory: Reports no additional respiratory complaints and Denies dyspnea Gastrointestinal: Gastrointestinal: Reports no additional gastrointestinal complaints, Denies abdominal pain, Denies melena, Denies hematochezia, Denies change in bowel habits and Denies change in stool character Genitourinary: Genitourinary: Reports no additional male genitourinary complaints, Denies hematuria, Denies oliguria, Denies difficulty urinating, Denies dysuria, Denies urinary frequency, Denies urinary hesitancy, Denies urinary incontinence and Denies urinary urgency Musculoskeletal: Musculoskeletal: Reports no additional musculoskeletal complaints, Denies numbness and Denies tingling Integumentary/Breasts: Comments: wounds to his right hand Neurologic: Denies dizziness, Denies loss of vision, Denies numbness and Denies tingling Psychiatric: Psychiatric: Reports no additional psychiatric complaints Endocrine: Endocrine: Reports no additional endocrine complaints Hematologic/Lymphatic: Hematologic/Lymphatic: Reports no additional hematologic/lymphatic complaints Allergic/Immunologic: Allergic/Immunologic: Reports no additional allergic/immunologic complaints PMFSH Past Medical History Attestation statement: The following information was validated with the patient. Source: old records reviewed Medical History Anxiety Asthma Depression Diabetes IVDU (intravenous drug user) Family History Family History Father Heart disease Social History Social History (Reviewed 02/22/22 @ :22 by RAQUEL Quispe) Household Members: Family Housing: House Do you presently have visiting nurse or other home services: No Alcohol intake: never Patient Tobacco Use Status: Current someday Tobacco user Tobacco use type: Cigarette Cigarette Packs Per Day: 1 Cigarettes Per Day: 20.0 Years Smoked: 14 e-Cigarette/Vaping Use: Never Used Second Hand Smoke Exposure: No Substance Use Type: Crack/Cocaine and Heroin Substance Use Frequency: Chronic Longstanding Advance Directives: Yes Advance Directives on File: Yes Advance Directives Date on File: 01/30/21 service: No Current occupational status: unemployed Physical Exam ED Vital Signs: Vital Signs - 24 hr 02/21/22 16:07 02/21/22 16:11 02/21/22 21:00 Temperature 98.9 F 98.2 F Pulse Rate 89 61 Respiratory Rate 16 16 Blood Pressure 115/87 95/66 Pulse Oximetry 94 96 Oxygen Delivery Method Room Air Room Air 02/21/22 23:38 Temperature Pulse Rate 57 Respiratory Rate 18 Blood Pressure 103/70 Pulse Oximetry 97 Oxygen Delivery Method Room Air BMI result Body Mass Index 31.7 Const General: cooperative, no acute distress, alert and awake Nutritional Appearance: well nourished Orientation/consciousness: patient oriented x3 Limitations: no limitations HENMT Head: Yes normal to inspection and Yes atraumatic Ears: hearing grossly normal bilaterally and external ears normal General nose exam: Normal external nose present, no nasal discharge noted and no epistaxis Face and sinus: Yes normal facial exam, No abrasion and No laceration Mouth: Normal oral and palatal mucosa present, no drooling and no muffled voice Eyes General: appearance normal, both eyes and all related structures Periorbital: periorbital findings normal Eyelids: Yes eyelids normal Conjunctivae: conjunctivae normal Pupils: Equal, round and reactive pupils present EOM: EOMs intact bilaterally Neck Neck: Yes normal visual inspection, Yes full ROM and Yes no lymphadenopathy Chest Chest palpation & inspection: normal inspection of the chest Resp Effort & Inspection: normal respiratory effort and able to speak in complete sentences Auscultation: clear to auscultation bilaterally Cardio Rate: regular rate Rhythm: regular rhythm GI Inspection: Yes normal to inspection Skin Other: multiple areas of erythema and warmth present to the right upper extremity. No areas of fluctuance requiring drainage. Neuro General: patient oriented x3 and moves all extremities Cranial nerves: Yes Equal, round and reactive pupils present Cognition (Neuro): normal cognition Motor exam (neuro): 5/5 motor strength present throughout Sensory Exam: Normal double simultaneous stimulation for sensation Coordination: [id number] test normal Extrem General: Yes normal to inspection, Yes full ROM and Yes capillary refill normal Psych Appearance: grossly normal Mental Status: mental status grossly normal Affect: normal affect Attitude: cooperative Thought process: Normal thought process present Thought content: Normal thought content present Insight: Good insight present (Psych) Medical Decision Making [facility] Narrative Medical decision making narrative: Patient is a 31 year old male presenting to the emergency department today with an infection to his right hand and having suicidal ideation. Patient's physical exam showed small areas of erythema and warmth to the right hand, consistent with cellulitis. Patient's blood work was unremarkable. I explained my physical exam findings as well as all test results to the patient. I answered all questions asked by the patient. Patient received PO Keflex. Patient was evaluated by [facility] who recommended the patient be an inpatient bed search. Patient to continue on oral ABX for his cellulitis. Differential Diagnosis Differential Diagnosis: cellulitis, SI Medical Records Medical records reviewed: Yes I reviewed the patient's medical records. Lab Data Lab results reviewed: Yes I reviewed the patient's lab results. Result diagrams: 02/21/22 19:17 02/21/22 19:53 Labs: Lab Results 02/21/22 02/21/22 02/21/22 Range/Units 16:11 19:17 19:53 WBC 5.6 (4.8-10.8) X10*3/uL RBC 5.60 (4.60-5.80) X10*6/uL Hgb 13.8 L (14.0-18.0) g/dl Hct 42.6 (42.0-52.0) % MCV 76.1 L (80.0-98.0) fL MCH 24.6 L (27.0-33.0) pg MCHC 32.4 (31.0-36.0) g/dl RDW 14.6 (11.0-16.0) % Plt Count 257 (160-400) X10*3/uL MPV 9.2 L (9.4-12.4) fL Immature Gran % (Auto) 0.4 (0.0-0.4) % Neut % (Auto) 63.7 (45-73) % Lymph % (Auto) 27.2 (20-40) % Crisp % (Auto) 7.2 (2-11) % Eos % (Auto) 1.3 (0-4) % Baso % (Auto) 0.2 (0-2) % Lymph # (Auto) 1.5 (1.2-4.9) X10*3/uL Crisp # (Auto) 0.4 (0.1-1.2) X10*3/uL Eos # (Auto) 0.1 (0.0-0.4) X10*3/uL Baso # (Auto) 0.0 (0.0-0.2) X10*3/uL Abs Immat Gran (auto) 0.02 (0.00-0.03) X10*3/uL Absolute Neuts (auto) 3.6 (2.0-8.3) x10*3/uL Absolute Nucleated RBC 0.000 (0.0-0.012) X10*3/uL Nucleated RBC % (auto) 0.0 (0.0-0.2) /100WBC Sodium 136 (135-145) mmol/L Potassium 3.6 D (3.3-5.1) mmol/L Chloride 102 (96-108) mmol/L Carbon Dioxide 28 (22-29) mmol/L Anion Gap 10 L (12-20) BUN 9 (9-16) mg/dL Creatinine 0.85 (0.5-1.4) mg/dL Estim Creat Clear Calc 145.0 Estimated GFR > 60 POC Glucose 98 (60-115) mg/dL Random Glucose 316 H D (60-115) mg/dL Calcium 9.1 (8.4-10.2) mg/dL Total Bilirubin < 0.2 (0.0-1.0) mg/dL AST 13 (5-37) U/L ALT 25 (0-40) U/L Alkaline Phosphatase 73 (39-117) U/L Total Protein 7.2 (6.5-8.0) g/dL Albumin 4.1 (3.5-5.0) g/dL Urine Color Urine Appearance Urine pH (5.0-8.0) Ur Specific [place] (1.005-1.025) Urine Protein (NEG-TRACE) MG/DL Urine Glucose (UA) (NEG) MG/DL Urine Ketones (NEG) MG/DL Urine Blood (NEG) Urine Nitrite (NEG) Ur Leukocyte Esterase (NEG) Urine Opiates Screen (Not Detect) Urine Fentanyl Screen (Not Detect) Ur Barbiturates Screen (Not Detect) Ur Phencyclidine Scrn (Not Detect) Ur Amphetamines Screen (Not Detect) U Benzodiazepines Scrn (Not Detect) Urine Cocaine Screen (Not Detect) U Marijuana (THC) Screen (Not Detect) 02/21/22 02/21/22 02/21/22 Range/Units 21:02 21:02 21:16 WBC (4.8-10.8) X10*3/uL RBC (4.60-5.80) X10*6/uL Hgb (14.0-18.0) g/dl Hct (42.0-52.0) % MCV (80.0-98.0) fL MCH (27.0-33.0) pg MCHC (31.0-36.0) g/dl RDW (11.0-16.0) % Plt Count (160-400) X10*3/uL MPV (9.4-12.4) fL Immature Gran % (Auto) (0.0-0.4) % Neut % (Auto) (45-73) % Lymph % (Auto) (20-40) % Crisp % (Auto) (2-11) % Eos % (Auto) (0-4) % Baso % (Auto) (0-2) % Lymph # (Auto) (1.2-4.9) X10*3/uL Crisp # (Auto) (0.1-1.2) X10*3/uL Eos # (Auto) (0.0-0.4) X10*3/uL Baso # (Auto) (0.0-0.2) X10*3/uL Abs Immat Gran (auto) (0.00-0.03) X10*3/uL Absolute Neuts (auto) (2.0-8.3) x10*3/uL Absolute Nucleated RBC (0.0-0.012) X10*3/uL Nucleated RBC % (auto) (0.0-0.2) /100WBC Sodium (135-145) mmol/L Potassium (3.3-5.1) mmol/L Chloride (96-108) mmol/L Carbon Dioxide (22-29) mmol/L Anion Gap (12-20) BUN (9-16) mg/dL Creatinine (0.5-1.4) mg/dL Estim Creat Clear Calc Estimated GFR POC Glucose 226 H (60-115) mg/dL Random Glucose (60-115) mg/dL Calcium (8.4-10.2) mg/dL Total Bilirubin (0.0-1.0) mg/dL AST (5-37) U/L ALT (0-40) U/L Alkaline Phosphatase (39-117) U/L Total Protein (6.5-8.0) g/dL Albumin (3.5-5.0) g/dL Urine Color DK YELLOW Urine Appearance CLEAR Urine pH 5.5 (5.0-8.0) Ur Specific [place] >= 1.030 H (1.005-1.025) Urine Protein TRACE (NEG-TRACE) MG/DL Urine Glucose (UA) 250 H (NEG) MG/DL Urine Ketones NEG (NEG) MG/DL Urine Blood NEG (NEG) Urine Nitrite NEG (NEG) Ur Leukocyte Esterase NEG (NEG) Urine Opiates Screen POSITIVE H (Not Detect) Urine Fentanyl Screen POSITIVE H (Not Detect) Ur Barbiturates Screen Not Detected (Not Detect) Ur Phencyclidine Scrn Not Detected (Not Detect) Ur Amphetamines Screen Not Detected (Not Detect) U Benzodiazepines Scrn POSITIVE H (Not Detect) Urine Cocaine Screen POSITIVE H (Not Detect) U Marijuana (THC) Screen Not Detected (Not Detect) Discharge Plan Discharge Clinical Impression: Cellulitis, Feeling suicidal Patient Disposition: Still a Patient Prescriptions: No Action fluoxetine 40 mg capsule 1 cap PO QAM metformin 500 mg tablet 1 tab PO BID gabapentin 600 mg tablet 1 tab PO TID clonazepam 1 mg tablet 1 tab PO TID gabapentin 300 mg capsule 1 cap PO BEDTIME Rx Instructions: takes with 600 mg dose at bedtime mirtazapine 15 mg tablet 1 tab PO BEDTIME methadone [Methadone Intensol] 10 mg/mL Concentrate 115 mg PO DAILY sulfamethoxazole-trimethoprim [Bactrim DS] 800-160 mg tablet 1 tab PO BID Qty: 9 0RF
[2022-02-21] MEDS: cephALEXin 500 MG CAPSULE PO (19:18)
[2022-02-21 19:23] LABS: MANUAL DIFF FLAG NO
[2022-02-21 19:28] LABS: Basophils Percent Auto 0.2 % (0-2); Eosinophils Absolute Auto 0.1 X10*3/uL (0.0-0.4); Eosinophils Percent Auto 1.3 % (0-4); Hematocrit 42.6 % (42.0-52.0); Hemoglobin 13.8 g/dl (14.0-18.0); Imm Gran Abs Auto 0.02 X10*3/uL (0.00-0.03); Imm Gran Pct Auto 0.4 % (0.0-0.4); Lymphocytes Absolute Auto 1.5 X10*3/uL (1.2-4.9); Lymphocytes Percent Auto 27.2 % (20-40); Mean Corpuscular HGB Conc 32.4 g/dl (31.0-36.0); Mean Corpuscular Hemoglobin 24.6 pg (27.0-33.0); Mean Corpuscular Volume 76.1 fL (80.0-98.0); Mean Platelet Volume 9.2 fL (9.4-12.4); Monocytes Absolute Auto 0.4 X10*3/uL (0.1-1.2); Monocytes Percent Auto 7.2 % (2-11); Neutrophils Absolute Auto 3.6 x10*3/uL (2.0-8.3); Neutrophils Percent Auto 63.7 % (45-73); Platelet Count 257 X10*3/uL (160-400); Red Cell Distribution Width 14.6 % (11.0-16.0); White Blood Count 5.6 X10*3/uL (4.8-10.8)
[2022-02-21 20:17] LABS: Alanine Aminotransferase 25 U/L (0-40); Albumin Level 4.1 g/dL (3.5-5.0); Alkaline Phosphatase 73 U/L (39-117); Anion Gap 10 (12-20); Aspartate Amino Transferase 13 U/L (5-37); Bilirubin Total < 0.2 mg/dL (0.0-1.0); Blood Urea Nitrogen 9 mg/dL (9-16); Calcium 9.1 mg/dL (8.4-10.2); Carbon Dioxide 28 mmol/L (22-29); Chloride 102 mmol/L (96-108); Estimated Glomerular Filt Rate > 60; Glucose Random 316 mg/dL (60-115); Potassium 3.6 mmol/L (3.3-5.1); Sodium 136 mmol/L (135-145); Total Protein 7.2 g/dL (6.5-8.0)
[2022-02-21 21:00] VITALS: BP 95/66; PULSE 61; RESP 16; TEMP 36.8; O2SAT 96
[2022-02-21 21:19] LABS: Appearance Urine CLEAR; Color Urine DK YELLOW; Glucose Urine UA 250 MG/DL (NEG); Leukocyte Esterase Urine NEG (NEG); Nitrite Urine NEG (NEG); PH 5.5 (5.0-8.0); Specific Gravity - Urine >= 1.030 (1.005-1.025); Urine Blood NEG (NEG); Urine Ketones NEG (NEG); Urine Protein TRACE MG/DL (NEG-TRACE)
[2022-02-21 21:21] LABS: Glucose, Whole Blood 226 mg/dL (60-115)
[2022-02-21 21:41] LABS: Amphetamine Screen Urine Not Detected (Not Detect); Barbiturates, Urine Not Detected (Not Detect); Benzodiazepines Screen Urine POSITIVE (Not Detect); Cannabinoid Screen Urine Not Detected (Not Detect); Cocaine Screen Urine POSITIVE (Not Detect); Fentanyl, urine POSITIVE (Not Detect); Opiate Screen Urine POSITIVE (Not Detect); Phencyclidine Screen Urine Not Detected (Not Detect)
[2022-02-21 23:38] VITALS: BP 103/70; PULSE 57; RESP 18; O2SAT 97
[2022-02-22] VITALS (7 sets, daily range): BP systolic 101–122; BP diastolic 64–80; PULSE 51–64; RESP 15–19; TEMP 36.6–36.8; O2SAT 96–98
[2022-02-22 02:03] LABS: COVID-19 Test Negative (Negative)
[2022-02-22 07:33] LABS: Glucose, Whole Blood 109 mg/dL (60-115)
[2022-02-22] MEDS: cephALEXin 500 MG CAPSULE PO ×4 (09:19→21:19)
--- NOTE | 2022-02-22 10:06 | HE.PHANOTE ---
RE METHADONE FORM RECEIVED; 115 MG LAST DOSE WAS 02/21/2022
[2022-02-22] MEDS: clonazePAM 1 MG TABLET PO ×3 (10:44→21:19)
[2022-02-22] MEDS: methADONE HCl 20 MG/2 ML ORAL.CONC 115 MG PO (11:53)
[2022-02-22] MEDS: FLUoxetine HCl 20 MG CAPSULE 40 MG PO (11:53)
--- NOTE | 2022-02-22 12:15 | PC.NURSE ---
patient awake and alert. skin pwd. resp even and non labored. speaking in full, clear sentences. continues to report feelings of SI. reports no specific plan. denies HI. patient observer in place. calm and cooperative with care.
[2022-02-22] MEDS: cloNIDine HCL 0.1 MG TABLET PO ×2 (14:46→21:19)
[2022-02-22] MEDS: Gabapentin 600 MG TABLET PO ×2 (14:47→21:19)
--- NOTE | 2022-02-22 18:24 | ECG_ITS ---
Test Reason : GENERAL MEDICAL Blood Pressure : / mmHG Vent. Rate : 049 BPM Atrial Rate : 049 BPM P-R Int : 150 ms QRS Dur : 084 ms QT Int : 480 ms P-R-T Axes : 053 036 049 degrees QTc Int : [address] elevation, consider early repolarization Borderline ECG When compared with ECG of 31-JAN-2021 08:45, ST elevation now present in Inferior leads ST elevation has replaced ST depression in Anterior leads Referred By: Svitlana Sandoval Electronically Signed By:CRISSY GONZALES
[2022-02-22] MEDS: Mirtazapine 15 MG TABLET PO (21:19)
[2022-02-22] MEDS: metFORMIN HCl 500 MG TABLET PO (21:19)
[2022-02-22] MEDS: Gabapentin 300 MG CAPSULE PO (21:21)
--- NOTE | 2022-02-22 21:30 | PC.NURSE ---
pt given evening medications with christiano risa and singh crackers. no complaints at this time
[2022-02-23 07:32] VITALS: BP 133/79; PULSE 50; RESP 16; O2SAT 99
[2022-02-23 09:20] VITALS: PULSE 67; RESP 16; O2SAT 98
[2022-02-23] MEDS: Fluticasone Propionate 100 MCG BLST.W.DEV 1 PUFF INHALE (09:20)
[2022-02-23 10:27] VITALS: BP 131/78; PULSE 52; RESP 14; O2SAT 97
[2022-02-23] MEDS: metFORMIN HCl 500 MG TABLET PO ×2 (10:28→20:23)
[2022-02-23] MEDS: Gabapentin 600 MG TABLET PO ×3 (10:28→20:23)
[2022-02-23] MEDS: FLUoxetine HCl 20 MG CAPSULE 40 MG PO (10:28)
[2022-02-23] MEDS: clonazePAM 1 MG TABLET PO ×3 (10:28→20:23)
[2022-02-23] MEDS: cephALEXin 500 MG CAPSULE PO ×4 (10:29→21:28)
[2022-02-23] MEDS: methADONE HCl 20 MG/2 ML ORAL.CONC 115 MG PO (10:29)
[2022-02-23] MEDS: cloNIDine HCL 0.1 MG TABLET PO ×3 (10:30→20:23)
[2022-02-23 12:28] LABS: COVID-19 Test Negative (Negative); IDNOW Serial# 55D5AD1C
[2022-02-23 15:00] VITALS: BP 125/80; PULSE 51; RESP 16; TEMP 36.7; O2SAT 99
[2022-02-23] MEDS: Nicotine Polacrilex Lozenge 4 MG LOZENGE BUCCAL (15:39)
[2022-02-23] MEDS: Nicotine 21 MG PATCH.TD24 TRANSDERMA (15:39)
[2022-02-23 18:00] VITALS: BP 107/74; PULSE 52; RESP 15; TEMP 36.2; O2SAT 97
[2022-02-23 18:26] VITALS: BP 116/76; PULSE 56; RESP 16; TEMP 36.2; O2SAT 97; BMI 30.9
[2022-02-23 18:47] LABS: Glucose, Whole Blood 118 mg/dL (60-115)
[2022-02-23] MEDS: Gabapentin 300 MG CAPSULE PO (20:23)
[2022-02-23] MEDS: Mirtazapine 15 MG TABLET PO (20:23)
[2022-02-23] MEDS: traZODone HCL 50 MG TABLET PO (21:50)
--- NOTE | 2022-02-23 22:59 | PC.ADMIT ---
Pt is a 31 male admitted on CV for severe depression due to the anniversary of jacinto's on 03/06/19. He is endorsing SI w/plan to OD on drugs. Pt is alert and oriented X4, VSS, Covid negative, Tox screen positive for opioids, cocaine. Pt reports being clean for a couple of months and recently relapsed due to the anniversary of jacinto's on 03/06/19. He reports 2 intentional ODs w/most current being 4months ago. Speech is regular with normal rhythm tone and erasmo. Admission orders obtained.
[2022-02-24 06:22] LABS: Glucose, Whole Blood 104 mg/dL (60-115)
[2022-02-24 08:00] VITALS: BP 124/78; PULSE 61; RESP 16; TEMP 36.6; O2SAT 97
[2022-02-24 08:47] LABS: Estimated Average Glucose 148 mg/dL; Hemoglobin A1c % 6.8 %
[2022-02-24] MEDS: Gabapentin 600 MG TABLET PO ×3 (08:55→20:38)
[2022-02-24] MEDS: cloNIDine HCL 0.1 MG TABLET PO ×3 (08:55→20:38)
[2022-02-24] MEDS: cephALEXin 500 MG CAPSULE PO ×4 (08:55→20:37)
[2022-02-24] MEDS: FLUoxetine HCl 20 MG CAPSULE 40 MG PO (08:55)
[2022-02-24] MEDS: metFORMIN HCl 500 MG TABLET PO ×2 (08:55→20:39)
[2022-02-24] MEDS: clonazePAM 1 MG TABLET PO ×3 (08:55→20:38)
[2022-02-24] MEDS: methADONE HCl 20 MG/2 ML ORAL.CONC 115 MG PO (08:57)
[2022-02-24 09:02] LABS: Alanine Aminotransferase 22 U/L (0-40); Albumin Level 4.4 g/dL (3.5-5.0); Alkaline Phosphatase 81 U/L (39-117); Anion Gap 15 (12-20); Aspartate Amino Transferase 18 U/L (5-37); Bilirubin Total 0.3 mg/dL (0.0-1.0); Blood Urea Nitrogen 14 mg/dL (9-16); Calcium 9.9 mg/dL (8.4-10.2); Carbon Dioxide 23 mmol/L (22-29); Chloride 106 mmol/L (96-108); Cholesterol 234 mg/dL; Creatinine Clr Calc Pharmacy 150.2; Estimated Glomerular Filt Rate > 60; Glucose Fasting 131 mg/dL (60-99); HDL Cholesterol 22 mg/dL; LDL Cholesterol Calculated 146 mg/dl; Magnesium 1.8 mg/dL (1.6-2.6); Potassium 4.6 mmol/L (3.3-5.1); Sodium 139 mmol/L (135-145); Triglycerides 333 mg/dL
[2022-02-24 09:07] LABS: Free T4 (Free Thyroxine) 1.02 ng/dL (0.71-1.85); Thyroid Stimulating Hormone 1.32 uIU/mL (0.32-4.0)
[2022-02-24 09:24] LABS: Folate 12.6 ng/mL (> or = 4.0); Vitamin B12 472 pg/mL (200-900)
--- NOTE | 2022-02-24 10:02 | HO.PSYADMNOT ---
HPI Date of Service: 02/24/22 Chief Complaint: Depression w/SI Polysubstance Abuse Sources of Information: patient interviewed, chart reviewed and crisis/core team assessment reviewed HPI Subjective Notes: Wilks Warning and Conditional Voluntary Guardianship: No Narrative: The patient is a 31-year-old male who presents with worsening depression thoughts of suicide. Patient has a history of recurrent depression with a history of 1 prior overdose attempt has been increasingly depressed over the past few months. Sunny Reisie the anniversary of his girlfriend's and also the his father. He has been increasingly isolated staying at his mother's house not working he does get daily methadone and has relapse with the use of intravenous heroin and cocaine use. He has required Narcan in the past. He does see Flo Strickland for medication management he is not currently in therapy and not currently active in the recovery community. He has been on Suboxone and Vivitrol in the past. Does have a history of few prior psychiatric hospitalizations. In spite of his methadone use he is prescribed clonazepam 1 mg 3 times a day gabapentin 3 times a day he denies misuse or overuse. He was feeling increasingly despondent low around the anniversary his girlfriend's in March, of note is he also was recently picked for jugular recent did spend 1 night in long term. It is unclear if this going to legal consequences. He had been on probation. Six questionable history of hypomanic episodes. He is on fluoxetine 40 mg daily mirtazapine 15 mg at bedtime but continues to have breakthrough depressive episodes Past Psychiatric History: See above history of hospitalization at [facility] and [facility] Medical Evaluation Reviewed: Yes Patient [id number] diabetic. 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 His mother is supportive his biological father this September Social History: Patient living with his mother currently unemployed history of chronic substance use he has been in and out of treatment he had been on probation. [facility]. 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 He does have a family support system Substance History: History of IV opiate cocaine use. He has been a number of different treatment programs he is getting methadone through [facility] no active engagement in recovery Trauma History: Overdose attempts with Narcan sudden of [facility] Diagn[facility] Vital Signs (24Hr): Vital Signs - 24 hr 02/23/22 10:27 02/23/22 15:00 02/23/22 18:26 Temperature 98.1 F 97.1 F Pulse Rate 52 51 56 Respiratory Rate 14 16 16 Blood Pressure 131/78 125/80 116/76 Pulse Oximetry 97 99 97 Oxygen Delivery Method Room Air Room Air Room Air 02/23/22 18:00 Temperature 97.2 F Pulse Rate 52 Respiratory Rate 15 Blood Pressure 107/74 Pulse Oximetry 97 Oxygen Delivery Method Room Air BMI result Body Mass Index 30.9 Labs Results: 02/21/22 19:17 02/24/22 08:25 Labs: Laboratory Results - last 48 hr 02/21/22 02/21/22 02/22/22 16:11 21:16 07:16 Sodium Potassium Chloride Carbon Dioxide Anion Gap BUN Creatinine Estim Creat Clear Calc Estimated GFR POC Glucose 98 226 H 109 Fasting Glucose Estimat Average Glucose Hemoglobin A1c % Calcium Magnesium Total Bilirubin AST ALT Alkaline Phosphatase Total Protein Albumin Triglycerides Cholesterol LDL Cholesterol, Calc HDL Cholesterol Vitamin B12 Folate TSH Free T4 COVID-19 (GALDINO) COVID-19 GetSet 02/23/22 02/23/22 02/24/22 12:02 18:39 06:14 Sodium Potassium Chloride Carbon Dioxide Anion Gap BUN Creatinine Estim Creat Clear Calc Estimated GFR POC Glucose 118 H 104 Fasting Glucose Estimat Average Glucose Hemoglobin A1c % Calcium Magnesium Total Bilirubin AST ALT Alkaline Phosphatase Total Protein Albumin Triglycerides Cholesterol LDL Cholesterol, Calc HDL Cholesterol Vitamin B12 Folate TSH Free T4 COVID-19 (GALDINO) Negative COVID-19 Clin Com See Note 02/24/22 02/24/22 02/24/22 08:25 08:25 08:25 Sodium 139 Potassium 4.6 D Chloride 106 Carbon Dioxide 23 Anion Gap 15 BUN 14 D Creatinine 0.81 Estim Creat Clear Calc 150.2 Estimated GFR > 60 POC Glucose Fasting Glucose 131 H Estimat Average Glucose 148 Hemoglobin A1c % 6.8 Calcium 9.9 D Magnesium 1.8 Total Bilirubin 0.3 AST 18 ALT 22 Alkaline Phosphatase 81 Total Protein 8.0 Albumin 4.4 Triglycerides 333 Cholesterol 234 LDL Cholesterol, Calc 146 HDL Cholesterol 22 Vitamin B12 472 Folate 12.6 TSH 1.32 Free T4 1.02 COVID-19 (GALDINO) COVID-19 Clin Com Meds/Allergies Meds Home Medications Medication Instructions Recorded Confirmed Type clonazepam 1 mg tablet 1 tab PO TID 01/30/21 02/22/22 History fluoxetine 40 mg capsule 1 cap PO QAM 01/30/21 02/22/22 History gabapentin 300 mg capsule 1 cap PO BEDTIME 01/30/21 02/22/22 History gabapentin 600 mg tablet 1 tab PO TID 01/30/21 02/22/22 History metformin 500 mg tablet 1 tab PO BID 01/30/21 02/22/22 History methadone 10 mg/mL oral 115 mg PO DAILY 01/30/21 02/22/22 History concentrate (Methadone Intensol) mirtazapine 15 mg tablet 1 tab PO BEDTIME 01/30/21 02/22/22 History albuterol sulfate 90 mcg/actuation 2 puff inhalation QID PRN wheezing 02/22/22 02/22/22 History aerosol inhaler (ProAir HFA) clonidine HCl 0.1 mg tablet 1 tab PO TID 02/22/22 02/22/22 History fluticasone propionate 110 1 puff inhalation BID 02/22/22 02/22/22 History mcg/actuation HFA aerosol inhaler (Flovent HFA) Allergies Allergies Allergy/AdvReac Type Severity Reaction Status Date / Time Pertussis Vaccines Allergy Mild HIVES Verified 02/04/21 14:00 [PERTUSSIS VACCINES] Mental Status Exam Mental Status Exam Patient Appearance: Well Grooomed Level of Consciousness: Awake and Appropriate Patient Behavior: Appropriate Affect Description: Constricted and Depressed Patient Cognition Impaired: No Ability to Follow Directions: Good Memory Description: Intact Hallucinations: None Delusions: Not Present Depressive Symptoms: Increased Anxiety and Thoughts of /Suicide Judgement: Fair Judgement and Insight: Patient has been increasingly despondent thoughts that he would be better off had thoughts to overdose denies plan or intent in this setting he is asking for help Assessment & Plan Assessment & Plan (1) Major depressive disorder, recurrent severe without psychotic features: Status: Acute Code(s): F33.2 - Major depressive disorder, recurrent severe without psychotic features (2) Cellulitis: Status: Acute Code(s): L03.90 - Cellulitis, unspecified (3) Opiate dependence, continuous: Status: Acute Code(s): F11.20 - Opioid dependence, uncomplicated (4) Cocaine use with cocaine-induced disorder: Status: Acute Code(s): F14.99 - Cocaine use, unspecified with unspecified cocaine-induced disorder Plan [facility] voluntary he appears safe on 15 minute checks. Trying clarify diagnosis of recur recurrent depression questionable history of hypomanic episodes. Collaborative treatment with his outpatient psychiatric provider Flo Strickland. He has been getting gabapentin and clonazepam in spite of active substance use. This should be addressed. Patient has ongoing substance use and cocaine use lack of counseling and sobriety may be significantly contributing to his to his lack of response to current psychiatric treatment and despondency would most likely benefit from more intensive treatment consider Abilify for augmentation otherwise continue 10 you for now clonazepam fluoxetine gabapentin methadone and mirtazapine. Monitor for over sedation. Coordinate care with outpatient provider social work for help with additional history and family contact Continue Bactrim for cellulitis Patient educated on: diagnosis, medication risk/benefits, substance abuse and therapeutic strategies Informed Consent: further education needed Reason for continued inpatient stay Substantial Risk for: harm to self and rapid decompensation
[2022-02-24 14:25] LABS: Glucose, Whole Blood 114 mg/dL (60-115)
[2022-02-24 14:30] VITALS: BP 106/71; PULSE 67; O2SAT 97
[2022-02-24 20:08] VITALS: BP 124/75; PULSE 54; TEMP 36.3
[2022-02-24] MEDS: Fluticasone Propionate 100 MCG BLST.W.DEV 1 PUFF INHALE (20:37)
[2022-02-24] MEDS: Gabapentin 300 MG CAPSULE PO (20:38)
[2022-02-24] MEDS: Mirtazapine 15 MG TABLET PO (20:39)
[2022-02-24] MEDS: traZODone HCL 50 MG TABLET PO (21:38)
[2022-02-25 07:00] VITALS: BMI 30.7
--- NOTE | 2022-02-25 08:00 | ECG_ITS ---
Test Reason : CHECK QTC Blood Pressure : / mmHG Vent. Rate : 043 BPM Atrial Rate : 043 BPM P-R Int : 152 ms QRS Dur : 084 ms QT Int : 464 ms P-R-T Axes : 056 034 027 degrees QTc Int : 392 ms Marked sinus bradycardia Nonspecific T wave abnormality Abnormal ECG When compared with ECG of 22-FEB-2022 18:20, No significant change was found Referred By: Ruddy Johnson Electronically Signed By:CRISSY GONZALES
[2022-02-25] MEDS: metFORMIN HCl 500 MG TABLET PO ×2 (08:19→20:01)
[2022-02-25] MEDS: Gabapentin 600 MG TABLET PO ×3 (08:19→20:01)
[2022-02-25] MEDS: methADONE HCl 20 MG/2 ML ORAL.CONC 115 MG PO (08:19)
[2022-02-25] MEDS: cephALEXin 500 MG CAPSULE PO ×4 (08:19→20:02)
[2022-02-25] MEDS: FLUoxetine HCl 20 MG CAPSULE 40 MG PO (08:19)
[2022-02-25] MEDS: cloNIDine HCL 0.1 MG TABLET PO ×3 (08:19→20:01)
[2022-02-25] MEDS: clonazePAM 1 MG TABLET PO ×3 (08:19→20:01)
[2022-02-25 08:45] VITALS: BP 132/81; PULSE 70; TEMP 36.6
[2022-02-25] MEDS: Nicotine 21 MG PATCH.TD24 TRANSDERMA (09:33)
[2022-02-25] MEDS: Fluticasone Propionate 100 MCG BLST.W.DEV 1 PUFF INHALE ×2 (09:34→20:55)
[2022-02-25] MEDS: Nicotine Polacrilex Lozenge 4 MG LOZENGE BUCCAL ×2 (13:34→15:54)
[2022-02-25 16:19] VITALS: BP 104/65; PULSE 75; TEMP 36.2; O2SAT 98
[2022-02-25] MEDS: Nicotine Polacrilex 2 MG GUM 4 MG BUCCAL (18:22)
[2022-02-25] MEDS: Mirtazapine 15 MG TABLET PO (20:01)
[2022-02-25 20:19] LABS: Glucose, Whole Blood 82 mg/dL (60-115)
[2022-02-25] MEDS: traZODone HCL 50 MG TABLET PO (20:55)
[2022-02-25] MEDS: Gabapentin 300 MG CAPSULE PO (20:57)
[2022-02-26 06:00] VITALS: BP 135/87; PULSE 63; RESP 18; TEMP 35.7; O2SAT 98
[2022-02-26 07:14] LABS: Glucose, Whole Blood 94 mg/dL (60-115)
[2022-02-26] MEDS: methADONE HCl 20 MG/2 ML ORAL.CONC 115 MG PO (08:39)
[2022-02-26] MEDS: clonazePAM 1 MG TABLET PO ×3 (08:42→21:00)
[2022-02-26] MEDS: metFORMIN HCl 500 MG TABLET PO ×2 (08:42→21:00)
[2022-02-26] MEDS: FLUoxetine HCl 20 MG CAPSULE 40 MG PO (08:43)
[2022-02-26] MEDS: cephALEXin 500 MG CAPSULE PO ×4 (08:46→21:00)
[2022-02-26] MEDS: cloNIDine HCL 0.1 MG TABLET PO ×3 (08:47→21:00)
[2022-02-26] MEDS: Fluticasone Propionate 100 MCG BLST.W.DEV 1 PUFF INHALE ×2 (08:50→21:00)
[2022-02-26] MEDS: Gabapentin 600 MG TABLET PO ×3 (08:51→21:00)
[2022-02-26] MEDS: Nicotine Polacrilex 2 MG GUM 4 MG BUCCAL ×4 (10:36→18:06)
[2022-02-26] MEDS: Nicotine 21 MG PATCH.TD24 TRANSDERMA (10:36)
[2022-02-26 18:00] VITALS: BP 119/67; PULSE 91; RESP 18; TEMP 36.5; O2SAT 98
--- NOTE | 2022-02-26 19:06 | HO.PSYCHPN ---
Subjective Subjective Date of Service: 02/26/22 Reason For Visit: Depression w/SI Polysubstance Abuse Subjective Notes: Wilks Warning and Conditional Voluntary Healthcare Proxy: No Guardianship: No Medical Problems Affecting Mental Status: No Interim History: Patient seen and discussed with team. Patient evaluated today and upon interview pt reports he is doing good feels a lot better than I was. Sleep is poor but has long hx of difficulty staying asleep, says ambien worked well in the past, denies benefit on seroquel (felt overly sedated but was on 200 mg), trazodone, clonidine, gabapentin, melatonin, antihistamines, or remeron for sleep. He wakes up 15 times, denies nightmares. No hx of sleep study. Energy is good. On antibiotic for abscess. Pt reports sx are a function of complicated bereavement due to his fiyamile passing away in mar three years ago from brain aneurysm, has difficult on anniversary. Says he also lost his dad in 2018. Hasnt been able to cut his hair since fiyamile's , feels destined to be alone and like follows him, as he has had other losses i.e. his sponsor completed suicide. Says sleep has been an issue ever since I lost her. On probation. Plan for IOP when discharges. In the milieu, patient is safe and appropriate in behavior. Denies SI/SIB/HI upon inquiry. Denies irritability or assaultive ideation. Says he feels safe. Mental Status Exam Mental Status Exam Narrative: A&O. Okay grooming, has abscess on R wrist, long hair in pony tail. Good eye contact, attentive. No Tics or Tremors. No abnormal involuntary movements. Calm, cooperative, engaged. Non-pressured speech, spontaneous with regular rate and rhythm, normal volume and prosody. No prolonged speech latency or dysarthria. Mood is ?okay,? affect is constricted. Denies SI/SIB/HI upon inquiry. Denies A/VH or delusional thought content. Thoughts are coherent, organized. No known cognitive or memory impairment. Insight/ Judgment fair and adequate. Diagnostics Vital Signs (24Hr): Vital Signs - 24 hr 02/26/22 06:00 Temperature 96.2 F L Pulse Rate 63 Respiratory Rate 18 Blood Pressure 135/87 Pulse Oximetry 98 Oxygen Delivery Method Room Air BMI result Body Mass Index 30.7 Labs Results: 02/21/22 19:17 02/24/22 08:25 Labs: Laboratory Results - last 48 hr 02/25/22 02/26/22 20:13 07:10 POC Glucose 82 94 Medications Medications Current Medications Acetaminophen (Acetaminophen 325 Mg Tablet) 650 mg PO Q6H PRN PRN Reason: Headache/Pain Mild Scale (1-3) Al Hydroxide/Mg Hydroxide (Magnesium Hydrox/Alum Hydrox 30 Ml Oral.Susp) 30 ml PO Q6H PRN PRN Reason: Heartburn/Nausea Albuterol Sulfate (Albuterol Sulfate 90 Mcg 8 Gm Inhaler) 2 puff INHALE QID PRN PRN Reason: wheezing Cephalexin HCl (Cephalexin 500 Mg Capsule) 500 mg PO QID ON LICENSE OF [facility] Last Admin: 02/26/22 17:25 Dose: 500 mg Clonazepam (Clonazepam 1 Mg Tablet) 1 mg PO TID ON LICENSE OF [facility] Last Admin: 02/26/22 14:56 Dose: 1 mg Clonidine HCl (Clonidine Hcl 0.1 Mg Tablet) 0.1 mg PO TID ON LICENSE OF [facility]; Protocol Last Admin: 02/26/22 14:56 Dose: 0.1 mg Fluoxetine HCl (Fluoxetine Hcl 20 Mg Capsule) 40 mg PO DAILY ON LICENSE OF [facility] Last Admin: 02/26/22 08:43 Dose: 40 mg Fluticasone Propionate (Fluticasone Propionate 100 Mcg Blst.W.Dev) 1 puff INHALE RBID ON LICENSE OF [facility] Last Admin: 02/26/22 08:50 Dose: 1 puff Gabapentin (Gabapentin 300 Mg Capsule) 300 mg PO BEDTIME ON LICENSE OF [facility] Last Admin: 02/25/22 20:57 Dose: 300 mg Gabapentin (Gabapentin 600 Mg Tablet) 600 mg PO TID ON LICENSE OF [facility] Last Admin: 02/26/22 14:56 Dose: 600 mg Hydroxyzine HCl (Hydroxyzine Hcl 25 Mg Tablet) 25 mg PO Q6H PRN PRN Reason: Anxiety Magnesium Hydroxide (Milk Of Magnesia 30 Ml Oral.Susp) 30 ml PO DAILY PRN PRN Reason: Constipation Metformin HCl (Metformin Hcl 500 Mg Tablet) 500 mg PO BID ON LICENSE OF [facility] Last Admin: 02/26/22 08:42 Dose: 500 mg Methadone HCl (Methadone Hcl 20 Mg/2 Ml Oral.Conc) 115 mg PO DAILY ON LICENSE OF [facility] Last Admin: 02/26/22 08:39 Dose: 115 mg Mirtazapine (Mirtazapine 15 Mg Tablet) 15 mg PO BEDTIME [facility] Last Admin: 02/25/22 20:01 Dose: 15 mg Nicotine (Nicotine 21 Mg Patch.Td24) 21 mg TRANSDERMA DAILY PRN PRN Reason: smoking cessation Last Admin: 02/26/22 10:36 Dose: 21 mg Nicotine Polacrilex (Nicotine Polacrilex Lozenge 4 Mg Lozenge) 4 mg BUCCAL Q2H PRN PRN Reason: Nicotine Cravings Last Admin: 02/25/22 15:54 Dose: 4 mg Nicotine Polacrilex (Nicotine Polacrilex 2 Mg Gum) 4 mg BUCCAL Q2H PRN PRN Reason: nicotine withdrawal Last Admin: 02/26/22 18:06 Dose: 4 mg Pharmacy Consult (Consult Rx Perform Med Rec) 1 each MISCELLANE ONCE PRN PRN Reason: Consult order Trazodone HCl (Trazodone Hcl 50 Mg Tablet) 50 mg PO BEDTIME PRN PRN Reason: Insomnia Last Admin: 02/25/22 20:55 Dose: 50 mg Allergies Allergies Allergy/AdvReac Type Severity Reaction Status Date / Time Pertussis Vaccines Allergy Mild HIVES Verified 02/04/21 14:00 [PERTUSSIS VACCINES] Assessment & Plan Assessment & Plan (1) Major depressive disorder, recurrent severe without psychotic features: Status: Acute Code(s): F33.2 - Major depressive disorder, recurrent severe without psychotic features (2) Cellulitis: Status: Acute Code(s): L03.90 - Cellulitis, unspecified (3) Opiate dependence, continuous: Status: Acute Code(s): F11.20 - Opioid dependence, uncomplicated (4) Cocaine use with cocaine-induced disorder: Status: Acute Code(s): F14.99 - Cocaine use, unspecified with unspecified cocaine-induced disorder Plan [facility] he appears safe on 15 minute checks. Trying clarify diagnosis of recur recurrent depression questionable history of hypomanic episodes. Collaborative treatment with his outpatient psychiatric provider Flo Strickland. He has been getting gabapentin and clonazepam in spite of active substance use. This should be addressed. Patient has ongoing substance use and cocaine use lack of counseling and sobriety may be significantly contributing to his to his lack of response to current psychiatric treatment and despondency would most likely benefit from more intensive treatment consider Abilify for augmentation otherwise continue 10 you for now clonazepam fluoxetine gabapentin methadone and mirtazapine. Monitor for over sedation. Coordinate care with outpatient provider social work for help with additional history and family contact Continue Bactrim for cellulitis 02/26: Decrease remeron to 7.5 mg QHS and start seroquel 100 QHS for mood and sleep, as pt has not had a seroquel trial in some time and may benefit from lower dose, as previous dose of 200 mg caused morning sedation. I spent minutes with the patient and/or on the patient floor today, greater than?50% of which was spent counseling/coordinating care. Patient educated on: medication risk/benefits Reason for contiued inpatient stay Substantial Risk for: med/psych decompensation
[2022-02-26] MEDS: Mirtazapine 15 MG TABLET PO (21:00)
[2022-02-26] MEDS: Gabapentin 300 MG CAPSULE PO (21:00)
[2022-02-26] MEDS: traZODone HCL 50 MG TABLET PO (21:00)
[2022-02-26] MEDS: QUEtiapine Fumarate 100 MG TABLET PO (22:00)
[2022-02-27 06:00] VITALS: BP 131/85; PULSE 69; RESP 16; TEMP 36.2; O2SAT 96
[2022-02-27 07:04] LABS: Glucose, Whole Blood 90 mg/dL (60-115)
[2022-02-27] MEDS: methADONE HCl 20 MG/2 ML ORAL.CONC 115 MG PO (08:20)
[2022-02-27] MEDS: Gabapentin 600 MG TABLET PO ×3 (08:23→21:01)
[2022-02-27] MEDS: cloNIDine HCL 0.1 MG TABLET PO ×3 (08:23→21:00)
[2022-02-27] MEDS: metFORMIN HCl 500 MG TABLET PO ×2 (08:23→21:00)
[2022-02-27] MEDS: cephALEXin 500 MG CAPSULE PO ×4 (08:23→21:01)
[2022-02-27] MEDS: FLUoxetine HCl 20 MG CAPSULE 40 MG PO (08:23)
[2022-02-27] MEDS: clonazePAM 1 MG TABLET PO ×3 (08:23→21:00)
[2022-02-27] MEDS: Fluticasone Propionate 100 MCG BLST.W.DEV 1 PUFF INHALE ×2 (08:28→22:09)
[2022-02-27] MEDS: Nicotine Polacrilex 2 MG GUM 4 MG BUCCAL ×4 (09:04→16:41)
[2022-02-27] MEDS: Nicotine 21 MG PATCH.TD24 TRANSDERMA (11:56)
[2022-02-27 18:00] VITALS: BP 109/78; PULSE 98; RESP 16; TEMP 36.6; O2SAT 98
[2022-02-27 19:09] LABS: Amphetamine Screen Urine Not Detected (Not Detect); Barbiturates, Urine Not Detected (Not Detect); Benzodiazepines Screen Urine POSITIVE (Not Detect); Cannabinoid Screen Urine Not Detected (Not Detect); Cocaine Screen Urine Not Detected (Not Detect); Fentanyl, urine POSITIVE (Not Detect); Opiate Screen Urine Not Detected (Not Detect); Phencyclidine Screen Urine Not Detected (Not Detect)
[2022-02-27] MEDS: Gabapentin 300 MG CAPSULE PO (21:00)
[2022-02-27] MEDS: Mirtazapine 7.5 MG TABLET PO (21:01)
[2022-02-27] MEDS: QUEtiapine Fumarate 100 MG TABLET PO (21:01)
--- NOTE | 2022-02-27 22:22 | HO.PSYCHPN ---
Subjective Subjective Date of Service: 02/27/22 Reason For Visit: Depression w/SI Polysubstance Abuse Subjective Notes: Wilks Warning and Conditional Voluntary Healthcare Proxy: No Guardianship: No Medical Problems Affecting Mental Status: No Interim History: Patient seen and discussed with team. Patient evaluated today and upon interview pt reports he feels okay. Says the seroquel 100 mg helped a lot, I didnt wake up groggy at all. He denies mood or behavioral concerns. In the milieu, patient is safe and appropriate in behavior, visible, socializing with peers. Denies SI/SIB/HI upon inquiry. Denies irritability or assaultive ideation. Says he feels safe. Medication Compliance: Yes Side effects from medications: No Attending Groups: Yes Review of Systems Acute medical concerns: No Medical Review of Systems: unchanged Mental Status Exam Mental Status Exam Narrative: A&O. Okay grooming, has abscess on R wrist, long hair in pony tail. Good eye contact, attentive. No Tics or Tremors. No abnormal involuntary movements. Calm, cooperative, engaged. Non-pressured speech, spontaneous with regular rate and rhythm, normal volume and prosody. No prolonged speech latency or dysarthria. Mood is ?okay,? affect is constricted. Denies SI/SIB/HI upon inquiry. Denies A/VH or delusional thought content. Thoughts are coherent, organized. No known cognitive or memory impairment. Insight/ Judgment fair and adequate. Diagnostics Vital Signs (24Hr): Vital Signs - 24 hr 02/27/22 18:00 02/28/22 06:00 Temperature 97.8 F Pulse Rate 98 74 Respiratory Rate 16 18 Blood Pressure 109/78 137/86 Pulse Oximetry 98 Oxygen Delivery Method Room Air BMI result Body Mass Index 30.7 Labs Results: 02/21/22 19:17 02/24/22 08:25 Labs: Laboratory Results - last 48 hr 02/27/22 02/27/22 02/27/22 07:00 18:00 22:51 POC Glucose 90 141 H Urine Opiates Screen Not Detected Urine Fentanyl Screen POSITIVE H Ur Barbiturates Screen Not Detected Ur Phencyclidine Scrn Not Detected Ur Amphetamines Screen Not Detected U Benzodiazepines Scrn POSITIVE H Urine Cocaine Screen Not Detected U Marijuana (THC) Screen Not Detected Medications Medications Current Medications Acetaminophen (Acetaminophen 325 Mg Tablet) 650 mg PO Q6H PRN PRN Reason: Headache/Pain Mild Scale (1-3) Al Hydroxide/Mg Hydroxide (Magnesium Hydrox/Alum Hydrox 30 Ml Oral.Susp) 30 ml PO Q6H PRN PRN Reason: Heartburn/Nausea Albuterol Sulfate (Albuterol Sulfate 90 Mcg 8 Gm Inhaler) 2 puff INHALE QID PRN PRN Reason: wheezing Cephalexin HCl (Cephalexin 500 Mg Capsule) 500 mg PO QID [facility] Last Admin: 02/28/22 08:24 Dose: 500 mg Clonazepam (Clonazepam 1 Mg Tablet) 1 mg PO TID [facility] Last Admin: 02/28/22 08:25 Dose: 1 mg Clonidine HCl (Clonidine Hcl 0.1 Mg Tablet) 0.1 mg PO TID [facility]; Protocol Last Admin: 02/28/22 08:24 Dose: 0.1 mg Diphenhydramine HCl (Diphenhydramine Hcl 25 Mg Tablet) 50 mg PO BEDTIME PRN PRN Reason: insomnia Fluoxetine HCl (Fluoxetine Hcl 20 Mg Capsule) 40 mg PO DAILY [facility] Last Admin: 02/28/22 08:24 Dose: 40 mg Fluticasone Propionate (Fluticasone Propionate 100 Mcg Blst.W.Dev) 1 puff INHALE RBID [facility] Last Admin: 02/28/22 08:27 Dose: 1 puff Gabapentin (Gabapentin 300 Mg Capsule) 300 mg PO BEDTIME [facility] Last Admin: 02/27/22 21:00 Dose: 300 mg Gabapentin (Gabapentin 600 Mg Tablet) 600 mg PO TID [facility] Last Admin: 02/28/22 08:25 Dose: 600 mg Hydroxyzine HCl (Hydroxyzine Hcl 25 Mg Tablet) 25 mg PO Q6H PRN PRN Reason: Anxiety Magnesium Hydroxide (Milk Of Magnesia 30 Ml Oral.Susp) 30 ml PO DAILY PRN PRN Reason: Constipation Metformin HCl (Metformin Hcl 500 Mg Tablet) 500 mg PO BID [facility] Last Admin: 02/28/22 08:24 Dose: 500 mg Methadone HCl (Methadone Hcl 20 Mg/2 Ml Oral.Conc) 115 mg PO DAILY [facility] Last Admin: 02/28/22 08:25 Dose: 115 mg Mirtazapine (Mirtazapine 7.5 Mg Tablet) 7.5 mg PO BEDTIME [facility] Last Admin: 02/27/22 21:01 Dose: 7.5 mg Nicotine (Nicotine 21 Mg Patch.Td24) 21 mg TRANSDERMA DAILY PRN PRN Reason: smoking cessation Last Admin: 02/28/22 09:19 Dose: 21 mg Nicotine Polacrilex (Nicotine Polacrilex Lozenge 4 Mg Lozenge) 4 mg BUCCAL Q2H PRN PRN Reason: Nicotine Cravings Last Admin: 02/25/22 15:54 Dose: 4 mg Nicotine Polacrilex (Nicotine Polacrilex 2 Mg Gum) 4 mg BUCCAL Q2H PRN PRN Reason: nicotine withdrawal Last Admin: 02/28/22 09:19 Dose: 4 mg Quetiapine Fumarate (Quetiapine Fumarate 100 Mg Tablet) 100 mg PO BEDTIME [facility] Last Admin: 02/27/22 21:01 Dose: 100 mg Trazodone HCl (Trazodone Hcl 50 Mg Tablet) 50 mg PO BEDTIME PRN PRN Reason: Insomnia Last Admin: 02/27/22 22:42 Dose: 50 mg Allergies Allergies Allergy/AdvReac Type Severity Reaction Status Date / Time Pertussis Vaccines Allergy Mild HIVES Verified 02/04/21 14:00 [PERTUSSIS VACCINES] Assessment & Plan Assessment & Plan (1) Major depressive disorder, recurrent severe without psychotic features: Status: Acute Code(s): F33.2 - Major depressive disorder, recurrent severe without psychotic features (2) Cellulitis: Status: Acute Code(s): L03.90 - Cellulitis, unspecified (3) Opiate dependence, continuous: Status: Acute Code(s): F11.20 - Opioid dependence, uncomplicated (4) Cocaine use with cocaine-induced disorder: Status: Acute Code(s): F14.99 - Cocaine use, unspecified with unspecified cocaine-induced disorder Plan [facility] voluntary he appears safe on 15 minute checks. Trying clarify diagnosis of recur recurrent depression questionable history of hypomanic episodes. Collaborative treatment with his outpatient psychiatric provider Flo Strickland. He has been getting gabapentin and clonazepam in spite of active substance use. This should be addressed. Patient has ongoing substance use and cocaine use lack of counseling and sobriety may be significantly contributing to his to his lack of response to current psychiatric treatment and despondency would most likely benefit from more intensive treatment consider Abilify for augmentation otherwise continue 10 you for now clonazepam fluoxetine gabapentin methadone and mirtazapine. Monitor for over sedation. Coordinate care with outpatient provider social work for help with additional history and family contact Continue Bactrim for cellulitis 02/26: Decrease remeron to 7.5 mg QHS and start seroquel 100 QHS for mood and sleep, as pt has not had a seroquel trial in some time and may benefit from lower dose, as previous dose of 200 mg caused morning sedation. 02/27: Reports his sleep was improved last night with med changes, does not want further adjustments, no signs of oversedation. He is pleasant, visible, cooperative on the unit. I spent minutes with the patient and/or on the patient floor today, greater than?50% of which was spent counseling/coordinating care. Patient educated on: diagnosis, medication risk/benefits and therapeutic strategies Reason for contiued inpatient stay Substantial Risk for: med/psych decompensation
[2022-02-27] MEDS: traZODone HCL 50 MG TABLET PO (22:42)
[2022-02-27 22:57] LABS: Glucose, Whole Blood 141 mg/dL (60-115)
--- NOTE | 2022-02-28 | ECG_ITS ---
Test Reason : cp Blood Pressure : / mmHG Vent. Rate : 057 BPM Atrial Rate : 057 BPM P-R Int : 162 ms QRS Dur : 084 ms QT Int : 418 ms P-R-T Axes : 063 030 047 degrees QTc Int : 406 ms Sinus bradycardia Nonspecific ST abnormality Abnormal ECG When compared with ECG of 25-FEB-2022 15:32, No significant change was found Referred By: Laura Hui Electronically Signed By:KATELYNN DE LOS SANTOS MD
[2022-02-28 06:00] VITALS: BP 137/86; PULSE 74; RESP 18
[2022-02-28] MEDS: metFORMIN HCl 500 MG TABLET PO ×2 (08:24→19:39)
[2022-02-28] MEDS: cephALEXin 500 MG CAPSULE PO ×4 (08:24→19:39)
[2022-02-28] MEDS: cloNIDine HCL 0.1 MG TABLET PO ×3 (08:24→19:40)
[2022-02-28] MEDS: FLUoxetine HCl 20 MG CAPSULE 40 MG PO (08:24)
[2022-02-28] MEDS: clonazePAM 1 MG TABLET PO ×3 (08:25→19:40)
[2022-02-28] MEDS: methADONE HCl 20 MG/2 ML ORAL.CONC 115 MG PO (08:25)
[2022-02-28] MEDS: Gabapentin 600 MG TABLET PO ×3 (08:25→19:39)
[2022-02-28] MEDS: Fluticasone Propionate 100 MCG BLST.W.DEV 1 PUFF INHALE ×2 (08:27→21:19)
[2022-02-28] MEDS: Nicotine 21 MG PATCH.TD24 TRANSDERMA (09:19)
[2022-02-28] MEDS: Nicotine Polacrilex 2 MG GUM 4 MG BUCCAL ×4 (09:19→21:32)
--- NOTE | 2022-02-28 10:22 | HO.PSYCHPN ---
Subjective Subjective Date of Service: 02/27/22 Reason For Visit: Depression w/SI Polysubstance Abuse Subjective Notes: Wilks Warning and Conditional Voluntary Healthcare Proxy: No Guardianship: No Medical Problems Affecting Mental Status: No Interim History: Patient seen and discussed with team. Patient evaluated today and upon interview he asks for updated results of utox, as he requested this yesterday evening due to knowing police patrol officer will want to do this with him on discharge. Pt's utox is still positive for fentanyl. He asks for another utox to be done prior to discharge. Says his sleep last night wasnt as good as the first night but is still better on seroquel, wants to take 150 mg. In the milieu, patient is safe and appropriate in behavior. Denies SI/SIB/HI upon inquiry. Denies irritability or assaultive ideation. Says he feels safe. Medication Compliance: Yes Side effects from medications: No Attending Groups: Yes Review of Systems Acute medical concerns: No Medical Review of Systems: unchanged Mental Status Exam Mental Status Exam Narrative: A&O. Okay grooming, has abscess on R wrist, long hair in pony tail. Good eye contact, attentive. No Tics or Tremors. No abnormal involuntary movements. Calm, cooperative, engaged. Non-pressured speech, spontaneous with regular rate and rhythm, normal volume and prosody. No prolonged speech latency or dysarthria. Mood is ?okay,? affect is constricted. Denies SI/SIB/HI upon inquiry. Denies A/VH or delusional thought content. Thoughts are coherent, organized. No known cognitive or memory impairment. Insight/ Judgment fair and adequate. Diagnostics Vital Signs (24Hr): Vital Signs - 24 hr 02/27/22 18:00 02/28/22 06:00 Temperature 97.8 F Pulse Rate 98 74 Respiratory Rate 16 18 Blood Pressure 109/78 137/86 Pulse Oximetry 98 Oxygen Delivery Method Room Air BMI result Body Mass Index 30.7 Labs Results: 02/21/22 19:17 02/24/22 08:25 Labs: Laboratory Results - last 48 hr 02/27/22 02/27/22 02/27/22 07:00 18:00 22:51 POC Glucose 90 141 H Urine Opiates Screen Not Detected Urine Fentanyl Screen POSITIVE H Ur Barbiturates Screen Not Detected Ur Phencyclidine Scrn Not Detected Ur Amphetamines Screen Not Detected U Benzodiazepines Scrn POSITIVE H Urine Cocaine Screen Not Detected U Marijuana (THC) Screen Not Detected Medications Medications Current Medications Acetaminophen (Acetaminophen 325 Mg Tablet) 650 mg PO Q6H PRN PRN Reason: Headache/Pain Mild Scale (1-3) Al Hydroxide/Mg Hydroxide (Magnesium Hydrox/Alum Hydrox 30 Ml Oral.Susp) 30 ml PO Q6H PRN PRN Reason: Heartburn/Nausea Albuterol Sulfate (Albuterol Sulfate 90 Mcg 8 Gm Inhaler) 2 puff INHALE QID PRN PRN Reason: wheezing Cephalexin HCl (Cephalexin 500 Mg Capsule) 500 mg PO QID [facility] Last Admin: 02/28/22 08:24 Dose: 500 mg Clonazepam (Clonazepam 1 Mg Tablet) 1 mg PO TID [facility] Last Admin: 02/28/22 08:25 Dose: 1 mg Clonidine HCl (Clonidine Hcl 0.1 Mg Tablet) 0.1 mg PO TID [facility]; Protocol Last Admin: 02/28/22 08:24 Dose: 0.1 mg Diphenhydramine HCl (Diphenhydramine Hcl 25 Mg Tablet) 50 mg PO BEDTIME PRN PRN Reason: insomnia Fluoxetine HCl (Fluoxetine Hcl 20 Mg Capsule) 40 mg PO DAILY [facility] Last Admin: 02/28/22 08:24 Dose: 40 mg Fluticasone Propionate (Fluticasone Propionate 100 Mcg Blst.W.Dev) 1 puff INHALE RBID [facility] Last Admin: 02/28/22 08:27 Dose: 1 puff Gabapentin (Gabapentin 300 Mg Capsule) 300 mg PO BEDTIME [facility] Last Admin: 02/27/22 21:00 Dose: 300 mg Gabapentin (Gabapentin 600 Mg Tablet) 600 mg PO TID [facility] Last Admin: 02/28/22 08:25 Dose: 600 mg Hydroxyzine HCl (Hydroxyzine Hcl 25 Mg Tablet) 25 mg PO Q6H PRN PRN Reason: Anxiety Magnesium Hydroxide (Milk Of Magnesia 30 Ml Oral.Susp) 30 ml PO DAILY PRN PRN Reason: Constipation Metformin HCl (Metformin Hcl 500 Mg Tablet) 500 mg PO BID [facility] Last Admin: 02/28/22 08:24 Dose: 500 mg Methadone HCl (Methadone Hcl 20 Mg/2 Ml Oral.Conc) 115 mg PO DAILY [facility] Last Admin: 02/28/22 08:25 Dose: 115 mg Mirtazapine (Mirtazapine 7.5 Mg Tablet) 7.5 mg PO BEDTIME [facility] Last Admin: 02/27/22 21:01 Dose: 7.5 mg Nicotine (Nicotine 21 Mg Patch.Td24) 21 mg TRANSDERMA DAILY PRN PRN Reason: smoking cessation Last Admin: 02/28/22 09:19 Dose: 21 mg Nicotine Polacrilex (Nicotine Polacrilex Lozenge 4 Mg Lozenge) 4 mg BUCCAL Q2H PRN PRN Reason: Nicotine Cravings Last Admin: 02/25/22 15:54 Dose: 4 mg Nicotine Polacrilex (Nicotine Polacrilex 2 Mg Gum) 4 mg BUCCAL Q2H PRN PRN Reason: nicotine withdrawal Last Admin: 02/28/22 09:19 Dose: 4 mg Quetiapine Fumarate (Quetiapine Fumarate 100 Mg Tablet) 100 mg PO BEDTIME [facility] Last Admin: 02/27/22 21:01 Dose: 100 mg Trazodone HCl (Trazodone Hcl 50 Mg Tablet) 50 mg PO BEDTIME PRN PRN Reason: Insomnia Last Admin: 02/27/22 22:42 Dose: 50 mg Allergies Allergies Allergy/AdvReac Type Severity Reaction Status Date / Time Pertussis Vaccines Allergy Mild HIVES Verified 02/04/21 14:00 [PERTUSSIS VACCINES] Assessment & Plan Assessment & Plan (1) Major depressive disorder, recurrent severe without psychotic features: Status: Acute Code(s): F33.2 - Major depressive disorder, recurrent severe without psychotic features (2) Cellulitis: Status: Acute Code(s): L03.90 - Cellulitis, unspecified (3) Opiate dependence, continuous: Status: Acute Code(s): F11.20 - Opioid dependence, uncomplicated (4) Cocaine use with cocaine-induced disorder: Status: Acute Code(s): F14.99 - Cocaine use, unspecified with unspecified cocaine-induced disorder Plan [facility] voluntary he appears safe on 15 minute checks. Trying clarify diagnosis of recur recurrent depression questionable history of hypomanic episodes. Collaborative treatment with his outpatient psychiatric provider Flo Strickland. He has been getting gabapentin and clonazepam in spite of active substance use. This should be addressed. Patient has ongoing substance use and cocaine use lack of counseling and sobriety may be significantly contributing to his to his lack of response to current psychiatric treatment and despondency would most likely benefit from more intensive treatment consider Abilify for augmentation otherwise continue 10 you for now clonazepam fluoxetine gabapentin methadone and mirtazapine. Monitor for over sedation. Coordinate care with outpatient provider social work for help with additional history and family contact Continue Bactrim for cellulitis 02/26: Decrease remeron to 7.5 mg QHS and start seroquel 100 QHS for mood and sleep, as pt has not had a seroquel trial in some time and may benefit from lower dose, as previous dose of 200 mg caused morning sedation. 02/27: Reports his sleep was improved last night with med changes, does not want further adjustments, no signs of oversedation. He is pleasant, visible, cooperative on the unit. 02/28: Pt asks for updated utox prior to discharge. Will increase seroquel to 150 mg at bedtime, may help with sleep and mood sx. Denies oversedation. I spent minutes with the patient and/or on the patient floor today, greater than?50% of which was spent counseling/coordinating care. Patient educated on: medication risk/benefits Reason for contiued inpatient stay Substantial Risk for: med/psych decompensation
[2022-02-28 11:01] LABS: Glucose, Whole Blood 165 mg/dL (60-115)
[2022-02-28 14:31] VITALS: BP 113/77; PULSE 70
[2022-02-28 18:00] VITALS: BP 121/78; PULSE 79; RESP 16; TEMP 36.6; O2SAT 99
[2022-02-28] MEDS: Gabapentin 300 MG CAPSULE PO (19:39)
[2022-02-28] MEDS: Mirtazapine 7.5 MG TABLET PO (19:39)
[2022-02-28] MEDS: QUEtiapine Fumarate 50 MG TABLET 150 MG PO (19:40)
[2022-02-28] MEDS: traZODone HCL 50 MG TABLET PO (21:33)
[2022-02-28 23:15] LABS: Glucose, Whole Blood 112 mg/dL (60-115)
[2022-03-01] MEDS: methADONE HCl 20 MG/2 ML ORAL.CONC 115 MG PO (07:52)
[2022-03-01] MEDS: Fluticasone Propionate 100 MCG BLST.W.DEV 1 PUFF INHALE ×2 (07:52→21:34)
[2022-03-01] MEDS: metFORMIN HCl 500 MG TABLET PO ×2 (07:53→20:48)
[2022-03-01] MEDS: Nicotine Polacrilex 2 MG GUM 4 MG BUCCAL ×4 (07:53→22:36)
[2022-03-01] MEDS: clonazePAM 1 MG TABLET PO ×3 (07:53→20:48)
[2022-03-01] MEDS: cloNIDine HCL 0.1 MG TABLET PO ×3 (07:53→20:48)
[2022-03-01] MEDS: Nicotine 21 MG PATCH.TD24 TRANSDERMA (07:53)
[2022-03-01] MEDS: FLUoxetine HCl 20 MG CAPSULE 40 MG PO (07:53)
[2022-03-01] MEDS: Gabapentin 600 MG TABLET PO ×3 (07:53→20:48)
[2022-03-01 07:58] VITALS: BP 128/89; PULSE 74
[2022-03-01 12:06] LABS: Glucose, Whole Blood 87 mg/dL (60-115)
[2022-03-01 14:23] VITALS: BP 125/89; PULSE 75
--- NOTE | 2022-03-01 17:25 | P.PNPSI_ITS ---
Subjective Subjective Date of Service: 03/01/22 Reason For Visit: Depression w/SI Polysubstance Abuse Subjective Notes: Wilks Warning and Conditional Voluntary Healthcare Proxy: No Guardianship: No Medical Problems Affecting Mental Status: No Interim History: Patient seen and discussed with team. Patient evaluated today and upon interview he states he is doing pretty good. Discloses he was non-adherent with prozac for the past year, now feels that he is back on it its finally starting to work. Says he didnt wake up groggy on seroquel 150 mg, likes this dose. He asked about increasing methadone, however I consulted with addiction services and this was declined. In the milieu, patient is safe and appropriate in behavior. Denies SI/SIB/HI upon inquiry. Denies irritability or assaultive ideation. Says he feels safe. Medication Compliance: No Side effects from medications: No Attending Groups: No Review of Systems Acute medical concerns: Yes Medical Review of Systems: unchanged Mental Status Exam Mental Status Exam Narrative: A&O. Okay grooming, has abscess on R wrist, long hair in pony tail. Good eye contact, attentive. No Tics or Tremors. No abnormal involuntary movements. Calm, cooperative, engaged. Non-pressured speech, spontaneous with regular rate and rhythm, normal volume and prosody. No prolonged speech latency or dysarthria. Mood is ?good,? affect is euthymic. Denies SI/SIB/HI upon inquiry. Denies A/VH or delusional thought content. Thoughts are coherent, organized. No known cognitive or memory impairment. Insight/ Judgment fair and adequate. Diagnostics Vital Signs (24Hr): Vital Signs - 24 hr 02/28/22 18:00 03/01/22 07:58 03/01/22 14:23 Temperature 98 F Pulse Rate 79 74 75 Respiratory Rate 16 Blood Pressure 121/78 128/89 125/89 Pulse Oximetry 99 Oxygen Delivery Method Room Air BMI result Body Mass Index 30.7 Labs Results: 02/21/22 19:17 02/24/22 08:25 Labs: Laboratory Results - last 48 hr 02/27/22 02/27/22 02/28/22 18:00 22:51 10:57 POC Glucose 141 H 165 H Urine Opiates Screen Not Detected Urine Fentanyl Screen POSITIVE H Ur Barbiturates Screen Not Detected Ur Phencyclidine Scrn Not Detected Ur Amphetamines Screen Not Detected U Benzodiazepines Scrn POSITIVE H Urine Cocaine Screen Not Detected U Marijuana (THC) Screen Not Detected 02/28/22 03/01/22 23:10 12:03 POC Glucose 112 87 Urine Opiates Screen Urine Fentanyl Screen Ur Barbiturates Screen Ur Phencyclidine Scrn Ur Amphetamines Screen U Benzodiazepines Scrn Urine Cocaine Screen U Marijuana (THC) Screen Medications Medications Current Medications Acetaminophen (Acetaminophen 325 Mg Tablet) 650 mg PO Q6H PRN PRN Reason: Headache/Pain Mild Scale (1-3) Al Hydroxide/Mg Hydroxide (Magnesium Hydrox/Alum Hydrox 30 Ml Oral.Susp) 30 ml PO Q6H PRN PRN Reason: Heartburn/Nausea Albuterol Sulfate (Albuterol Sulfate 90 Mcg 8 Gm Inhaler) 2 puff INHALE QID PRN PRN Reason: wheezing Clonazepam (Clonazepam 1 Mg Tablet) 1 mg PO TID [facility] Last Admin: 03/01/22 14:21 Dose: 1 mg Clonidine HCl (Clonidine Hcl 0.1 Mg Tablet) 0.1 mg PO TID [facility]; Protocol Last Admin: 03/01/22 14:21 Dose: 0.1 mg Diphenhydramine HCl (Diphenhydramine Hcl 25 Mg Tablet) 50 mg PO BEDTIME PRN PRN Reason: insomnia Fluoxetine HCl (Fluoxetine Hcl 20 Mg Capsule) 40 mg PO DAILY [facility] Last Admin: 03/01/22 07:53 Dose: 40 mg Fluticasone Propionate (Fluticasone Propionate 100 Mcg Blst.W.Dev) 1 puff INHALE RBID [facility] Last Admin: 03/01/22 07:52 Dose: 1 puff Gabapentin (Gabapentin 300 Mg Capsule) 300 mg PO BEDTIME [facility] Last Admin: 02/28/22 19:39 Dose: 300 mg Gabapentin (Gabapentin 600 Mg Tablet) 600 mg PO TID [facility] Last Admin: 03/01/22 14:21 Dose: 600 mg Hydroxyzine HCl (Hydroxyzine Hcl 25 Mg Tablet) 25 mg PO Q6H PRN PRN Reason: Anxiety Magnesium Hydroxide (Milk Of Magnesia 30 Ml Oral.Susp) 30 ml PO DAILY PRN PRN Reason: Constipation Metformin HCl (Metformin Hcl 500 Mg Tablet) 500 mg PO BID [facility] Last Admin: 03/01/22 07:53 Dose: 500 mg Methadone HCl (Methadone Hcl 20 Mg/2 Ml Oral.Conc) 115 mg PO DAILY [facility] Last Admin: 03/01/22 07:52 Dose: 115 mg Mirtazapine (Mirtazapine 7.5 Mg Tablet) 7.5 mg PO BEDTIME [facility] Last Admin: 02/28/22 19:39 Dose: 7.5 mg Nicotine (Nicotine 21 Mg Patch.Td24) 21 mg TRANSDERMA DAILY PRN PRN Reason: smoking cessation Last Admin: 03/01/22 07:53 Dose: 21 mg Nicotine Polacrilex (Nicotine Polacrilex Lozenge 4 Mg Lozenge) 4 mg BUCCAL Q2H PRN PRN Reason: Nicotine Cravings Last Admin: 02/25/22 15:54 Dose: 4 mg Nicotine Polacrilex (Nicotine Polacrilex 2 Mg Gum) 4 mg BUCCAL Q2H PRN PRN Reason: nicotine withdrawal Last Admin: 03/01/22 14:25 Dose: 4 mg Quetiapine Fumarate (Quetiapine Fumarate 50 Mg Tablet) 150 mg PO BEDTIME [facility] Last Admin: 02/28/22 19:40 Dose: 150 mg Trazodone HCl (Trazodone Hcl 50 Mg Tablet) 50 mg PO BEDTIME PRN PRN Reason: Insomnia Last Admin: 02/28/22 21:33 Dose: 50 mg Allergies Allergies Allergy/AdvReac Type Severity Reaction Status Date / Time Pertussis Vaccines Allergy Mild HIVES Verified 02/04/21 14:00 [PERTUSSIS VACCINES] Assessment & Plan Assessment & Plan (1) Major depressive disorder, recurrent severe without psychotic features: Status: Acute Code(s): F33.2 - Major depressive disorder, recurrent severe without psychotic features (2) Cellulitis: Status: Acute Code(s): L03.90 - Cellulitis, unspecified (3) Opiate dependence, continuous: Status: Acute Code(s): F11.20 - Opioid dependence, uncomplicated (4) Cocaine use with cocaine-induced disorder: Status: Acute Code(s): F14.99 - Cocaine use, unspecified with unspecified cocaine-induced disorder Plan Patient will be [facility] on a conditional voluntary he appears safe on 15 minute checks. Trying clarify diagnosis of recur recurrent depression questionable history of hypomanic episodes. Collaborative treatment with his outpatient psychiatric provider Flo Strickland. He has been ge tting gabapentin and clonazepam in spite of active substance use. This should be addressed. Patient has ongoing substance use and cocaine use lack of counseling and sobriety may be significantly contributing to his to his lack of response to current psychiatric treatment and despondency would most likely benefit from more intensive treatment consider Abilify for augmentation otherwise continue 10 you for now clonazepam fluoxetine gabapentin methadone and mirtazapine. Monitor for over sedation. Coordinate care with outpatient provider social work for help with additional history and family contact Continue Bactrim for cellulitis 02/26: Decrease remeron to 7.5 mg QHS and start seroquel 100 QHS for mood and sleep, as pt has not had a seroquel trial in some time and may benefit from lower dose, as previous dose of 200 mg caused morning sedation. 02/27: Reports his sleep was improved last night with med changes, does not want further adjustments, no signs of oversedation. He is pleasant, visible, cooperative on the unit. 02/28: Pt asks for updated utox prior to discharge. Will increase seroquel to 150 mg at bedtime, may help with sleep and mood sx. Denies oversedation. 03/01: Pt reports positive effect on medications, feels he is progressing back to baseline and he is advocating for discharge tomorrow. Feels safe. I spent minutes with the patient and/or on the patient floor today, greater than?50% of which was spent counseling/coordinating care. Patient educated on: diagnosis, medication risk/benefits and therapeutic strategies Reason for contiued inpatient stay Substantial Risk for: med/psych decompensation
[2022-03-01 18:00] VITALS: BP 114/70; PULSE 64; TEMP 36; O2SAT 97
[2022-03-01 20:34] LABS: Amphetamine Screen Urine Not Detected (Not Detect); Barbiturates, Urine Not Detected (Not Detect); Benzodiazepines Screen Urine POSITIVE (Not Detect); Cannabinoid Screen Urine Not Detected (Not Detect); Cocaine Screen Urine Not Detected (Not Detect); Fentanyl, urine POSITIVE (Not Detect); Opiate Screen Urine Not Detected (Not Detect); Phencyclidine Screen Urine Not Detected (Not Detect)
[2022-03-01] MEDS: Gabapentin 300 MG CAPSULE PO (20:48)
[2022-03-01] MEDS: QUEtiapine Fumarate 50 MG TABLET 150 MG PO (20:48)
[2022-03-01] MEDS: Mirtazapine 7.5 MG TABLET PO (20:48)
[2022-03-01] MEDS: traZODone HCL 50 MG TABLET PO (22:36)
[2022-03-02] MEDS: Magnesium Hydrox/Alum Hydrox 30 ML ORAL.SUSP PO (06:37)
[2022-03-02 08:15] VITALS: BP 127/86; PULSE 75; RESP 16; TEMP 36.8; O2SAT 98
[2022-03-02] MEDS: metFORMIN HCl 500 MG TABLET PO (08:19)
[2022-03-02] MEDS: FLUoxetine HCl 20 MG CAPSULE 40 MG PO (08:19)
[2022-03-02] MEDS: Gabapentin 600 MG TABLET PO (08:19)
[2022-03-02] MEDS: clonazePAM 1 MG TABLET PO (08:19)
[2022-03-02] MEDS: cloNIDine HCL 0.1 MG TABLET PO (08:20)
[2022-03-02] MEDS: methADONE HCl 20 MG/2 ML ORAL.CONC 115 MG PO (08:20)
[2022-03-02] MEDS: Fluticasone Propionate 100 MCG BLST.W.DEV 1 PUFF INHALE (08:23)
[2022-03-02] MEDS: Nicotine 21 MG PATCH.TD24 TRANSDERMA (09:05)
[2022-03-02] MEDS: Nicotine Polacrilex 2 MG GUM 4 MG BUCCAL (09:22)
--- NOTE | 2022-03-02 14:04 | PC.NURSE ---
Patient is alert and oriented x4. Patient reports feeling ready and safe for discharge. Denies SI/HI/AH/VH. Patient reports that he is hopeful with the future. Patient denies acute physical complaints. No issues noted or reported. Patient reports an understanding and agreement with discharge teachings/instructions.
--- NOTE | 2022-03-02 16:52 | P.DS_ITS ---
DS: Providers Provider Date of Service: 03/02/22 Date of admission: 02/23/22 12:18 Date of discharge: 03/02/22 Primary care physician: Orlando Mahmood III, MD Admitting clinician: Ruddy Johnson Attending physician on admission: Ruddy Johnson Consults: 03/01/22 19:06 Addiction Medicine Stat Consulting Provider: Trista Bolanos Reason for consultation: interested in methadone increase Attending physician on discharge: Ruddy Johnson Discharging clinician: Laura Hui DS: Diagnosis Discharge Diagnosis (1) Major depressive disorder, recurrent severe without psychotic features: Status: Acute (2) Cellulitis: Status: Acute (3) Opiate dependence, continuous: Status: Acute (4) Cocaine use with cocaine-induced disorder: Status: Acute DS: Medications Discharge Medications Home Medications: Home Medications Medication Instructions Recorded Confirmed clonazepam 1 mg tablet 1 tab PO TID 01/30/21 02/22/22 fluoxetine 40 mg capsule 1 cap PO QAM 01/30/21 02/22/22 gabapentin 300 mg capsule 1 cap PO BEDTIME 01/30/21 02/22/22 gabapentin 600 mg tablet 1 tab PO TID 01/30/21 02/22/22 metformin 500 mg tablet 1 tab PO BID 01/30/21 02/22/22 methadone 10 mg/mL oral 115 mg PO DAILY 01/30/21 02/22/22 concentrate (Methadone Intensol) albuterol sulfate 90 mcg/actuation 2 puff inhalation QID PRN wheezing 02/22/22 02/22/22 aerosol inhaler (ProAir HFA) fluticasone propionate 110 1 puff inhalation BID 02/22/22 02/22/22 mcg/actuation HFA aerosol inhaler (Flovent HFA) Previous Rx's Medication Instructions Recorded clonidine HCl 0.1 mg tablet 0.1 mg PO TID #90 tabs 03/02/22 mirtazapine 7.5 mg tablet 7.5 mg PO BEDTIME #30 tabs 03/02/22 nicotine (polacrilex) 2 mg gum 4 mg buccal Q2H PRN nicotine 03/02/22 withdrawal #20 ea nicotine 21 mg/24 hr daily 21 mg transdermal DAILY PRN 03/02/22 transdermal patch smoking cessation #28 ea quetiapine 50 mg tablet 150 mg PO BEDTIME #90 tabs 03/02/22 Mental Status Exam Mental Status Exam Narrative: A&O. Okay grooming, has abscess on R wrist, long hair in pony tail. Good eye contact, attentive. No Tics or Tremors. No abnormal involuntary movements. Calm, cooperative, engaged. Non-pressured speech, spontaneous with regular rate and rhythm, normal volume and prosody. No prolonged speech latency or dysarthria. Mood is ?better,? affect is euthymic. Denies SI/SIB/HI upon inquiry. Denies A/VH or delusional thought content. Thoughts are coherent, organized. No known cognitive or memory impairment. Insight/ Judgment fair and adequate. Data Data Completed and Pending Completed studies during hospitalization [Text1]: 02/23/22 02/24/22 02/24/22 18:39 06:14 08:25 Sodium 139 Potassium 4.6 D Chloride 106 Carbon Dioxide 23 Anion Gap 15 BUN 14 D Creatinine 0.81 Estim Creat Clear Calc 150.2 Estimated GFR > 60 POC Glucose 118 H 104 Fasting Glucose 131 H Estimat Average Glucose Hemoglobin A1c % Calcium 9.9 D Magnesium 1.8 Total Bilirubin 0.3 AST 18 ALT 22 Alkaline Phosphatase 81 Total Protein 8.0 Albumin 4.4 Triglycerides 333 Cholesterol 234 LDL Cholesterol, Calc 146 HDL Cholesterol 22 Vitamin B12 Folate TSH 1.32 Free T4 1.02 Urine Opiates Screen Urine Fentanyl Screen Ur Barbiturates Screen Ur Phencyclidine Scrn Ur Amphetamines Screen U Benzodiazepines Scrn Urine Cocaine Screen U Marijuana (THC) Screen 02/24/22 02/24/22 02/24/22 08:25 08:25 14:22 Sodium Potassium Chloride Carbon Dioxide Anion Gap BUN Creatinine Estim Creat Clear Calc Estimated GFR POC Glucose 114 Fasting Glucose Estimat Average Glucose 148 Hemoglobin A1c % 6.8 Calcium Magnesium Total Bilirubin AST ALT Alkaline Phosphatase Total Protein Albumin Triglycerides Cholesterol LDL Cholesterol, Calc HDL Cholesterol Vitamin B12 472 Folate 12.6 TSH Free T4 Urine Opiates Screen Urine Fentanyl Screen Ur Barbiturates Screen Ur Phencyclidine Scrn Ur Amphetamines Screen U Benzodiazepines Scrn Urine Cocaine Screen U Marijuana (THC) Screen 02/25/22 02/26/22 02/27/22 20:13 07:10 07:00 Sodium Potassium Chloride Carbon Dioxide Anion Gap BUN Creatinine Estim Creat Clear Calc Estimated GFR POC Glucose 82 94 90 Fasting Glucose Estimat Average Glucose Hemoglobin A1c % Calcium Magnesium Total Bilirubin AST ALT Alkaline Phosphatase Total Protein Albumin Triglycerides Cholesterol LDL Cholesterol, Calc HDL Cholesterol Vitamin B12 Folate TSH Free T4 Urine Opiates Screen Urine Fentanyl Screen Ur Barbiturates Screen Ur Phencyclidine Scrn Ur Amphetamines Screen U Benzodiazepines Scrn Urine Cocaine Screen U Marijuana (THC) Screen 02/27/22 02/27/22 02/28/22 18:00 22:51 10:57 Sodium Potassium Chloride Carbon Dioxide Anion Gap BUN Creatinine Estim Creat Clear Calc Estimated GFR POC Glucose 141 H 165 H Fasting Glucose Estimat Average Glucose Hemoglobin A1c % Calcium Magnesium Total Bilirubin AST ALT Alkaline Phosphatase Total Protein Albumin Triglycerides Cholesterol LDL Cholesterol, Calc HDL Cholesterol Vitamin B12 Folate TSH Free T4 Urine Opiates Screen Not Detected Urine Fentanyl Screen POSITIVE H Ur Barbiturates Screen Not Detected Ur Phencyclidine Scrn Not Detected Ur Amphetamines Screen Not Detected U Benzodiazepines Scrn POSITIVE H Urine Cocaine Screen Not Detected U Marijuana (THC) Screen Not Detected 02/28/22 03/01/22 03/01/22 23:10 12:03 19:52 Sodium Potassium Chloride Carbon Dioxide Anion Gap BUN Creatinine Estim Creat Clear Calc Estimated GFR POC Glucose 112 87 Fasting Glucose Estimat Average Glucose Hemoglobin A1c % Calcium Magnesium Total Bilirubin AST ALT Alkaline Phosphatase Total Protein Albumin Triglycerides Cholesterol LDL Cholesterol, Calc HDL Cholesterol Vitamin B12 Folate TSH Free T4 Urine Opiates Screen Not Detected Urine Fentanyl Screen POSITIVE H Ur Barbiturates Screen Not Detected Ur Phencyclidine Scrn Not Detected Ur Amphetamines Screen Not Detected U Benzodiazepines Scrn POSITIVE H Urine Cocaine Screen Not Detected U Marijuana (THC) Screen Not Detected DS: Summary Hospital Course Hospital Course: Andrey is a 31-year-old male who presented to [facility] ED on 02/21/2022 with worsening depression and thoughts of suicide. Patient has a history of recurrent depression with a history of 1 prior overdose attempt. He has been increasingly depressed over the past few months in the context of relapse of IV heroin and cocaine. Precipitating factors include the anniversary of his girlfriend's and also the his father.? He has been increasingly isolated, staying at his mother's house, not working. He does get daily methadone. He has required Narcan in the past.? He does see Flo Strickland for medication management but no current OP therapy, not active in the recovery community either. He has been on Suboxone and Vivitrol in the past.? Does have a history of few prior psychiatric hospitalizations. Pt had been non-adherent with his fluoxetine 40 mg daily and mirtazapine 15 mg at bedtime, which were re-started. Pt was also given bactrim for cellulitis due to abscess on wrist. Course of hospitalization: CV, 3 day notice singed 02/26: Decrease remeron to 7.5 mg QHS and start seroquel 100 QHS for mood and sleep, as pt has not had a seroquel trial in some time and may benefit from lower dose, as previous dose of 200 mg caused morning sedation. 02/27: Reports his sleep was improved last night with med changes, does not want further adjustments, no signs of oversedation. He is pleasant, visible, cooperative on the unit. 02/28: Pt asks for updated utox prior to discharge. Will increase seroquel to 150 mg at bedtime, may help with sleep and mood sx. Denies oversedation. 03/01: Pt reports positive effect on medications, feels he is progressing back to baseline and he is advocating for discharge tomorrow. Feels safe. Status at Discharge Functional status at discharge: independent ambulation Overall status at discharge: patient is progressing back to baseline Time Spent with Patient Time attestation: Total time spent providing and/or coordinating discharge services: Time spent: Less than 30 minutes Discharge Plan Discharge Anticipated Discharge Date/Time: 03/02/22 10:41 Patient Disposition: Home, Self-Care Discharge Diagnosis: MDD, recurrent. Complex Bereavement. Opioid use disorder. Paruresis (shy bladder syndrome). Referrals: [facility] [Other] - 03/02/22 2:30 pm (Referral to [facility]) Flo Strickland [Other] - 04/30/22 9:30 am (Patient follow-up with outpatient psychiatric medication provider Appointment by tele-health, but in office appointment is available if desired.) [facility] [Other] - 04/02/22 2:00 pm (Referral for [facility] ) Kera Ernst [Other] - 03/05/22 11:00 am (Referral for outpatient therapy Initial intake appointment in person at [facility] [place] [place] Timoteo,Orlando B III, MD [Primary Care Provider] - 1 Week (OFFICE CALLED NO ANSWER LEFT MESSAGE TO CALL US BACK OR CALL PT. AT HOME WITH F/U APPT.) Discharge Medications: New nicotine 21 mg/24 hr Patch 24 Hour 21 mg transdermal DAILY PRN (Reason: smoking cessation) Qty: 28 0RF mirtazapine 7.5 mg Tablet 7.5 mg PO BEDTIME Qty: 30 0RF quetiapine 50 mg Tablet 150 mg PO BEDTIME Qty: 90 0RF nicotine (polacrilex) 2 mg Gum 4 mg buccal Q2H PRN (Reason: nicotine withdrawal) Qty: 20 0RF Continued fluoxetine 40 mg capsule 1 cap PO QAM metformin 500 mg tablet 1 tab PO BID gabapentin 600 mg tablet 1 tab PO TID clonazepam 1 mg tablet 1 tab PO TID gabapentin 300 mg capsule 1 cap PO BEDTIME Rx Instructions: takes with 600 mg dose at bedtime methadone [Methadone Intensol] 10 mg/mL Concentrate 115 mg PO DAILY albuterol sulfate [ProAir HFA] 90 mcg/actuation HFA aerosol inhaler 2 puff inhalation QID PRN (Reason: wheezing) fluticasone propionate [Flovent HFA] 110 mcg/actuation HFA aerosol inhaler 1 puff inhalation BID Changed clonidine HCl 0.1 mg tablet 0.1 mg PO TID Qty: 90 0RF Discontinued mirtazapine 15 mg tablet 1 tab PO BEDTIME Discharge Orders: Discharge Order (Routine); Ordered 03/02/22 Ordered By: Laura Hui Diet: Advance to usual diet Activity on Discharge: As tolerated Stand Alone Forms: Patient Portal Discharge page, Community Support Activity Restrictions/Additional Instructions: Pt carries diagnosis of paruresis (shy bladder syndrome), which makes it difficult to produce urine in front of another person. Recommend mouth swab drug test as alternative or pt requests use of a stall be available. Care Plan Goals: Continue psychiatric medications as prescribed and follow up with outpatient referrals and PCP. Health Concerns: Substance use disorder Depression Plan of Treatment: Attend follow up appointments with OP psych services and PCP Patient will continue on psychotropic medication regimen for mood stability and sobriety Take medications as directed A one month supply of medication has been sent to your pharmacy Crisis Team if needed [phone] Call and or return if needed Assessment: Risk assessment at time of discharge:? Patient was interviewed prior to discharge and found to be fully oriented and without any SI or HI. Patient has insight and demonstrates good judgment in terms of wanting to pursue treatment. Patient is not in imminent risk of harm to self or others and has a safety plan that includes presenting to the closest ER or calling 911 if feeling unsafe.? Patient has been observed closely by nursing and unit staff throughout admission; patient has not engaged in any behaviors that suggest dangerousness to self or others and has demonstrated appropriate behaviors and impulse control. Discharge Date/Time: 03/02/22 14:35
== END 2022-03-02 14:35 | disposition home or self-care (01) | DRG 751 ==
LOC: HO.ED 02-23 07:38 → HO.PM5 02-23 12:37
PROVIDERS: Physician Assistant Medical; Registered Nurse; Admitting Provider Psychiatry & Neurology Psychiatry; Emergency Provider Emergency Medicine; PCP Internal Medicine; Visit Provider Clinical Nurse Specialist Psychiatric/Mental Health, Adult
DX: F33.2 Major depressive disorder, recurrent severe without psychotic features (principal); R45.851 Suicidal ideations; E11.9 Type 2 diabetes mellitus without complications; F17.210 Nicotine dependence, cigarettes, uncomplicated; F11.20 Opioid dependence, uncomplicated; L03.113 Cellulitis of right upper limb; F41.9 Anxiety disorder, unspecified; J45.909 Unspecified asthma, uncomplicated; Z20.822 Contact with and (suspected) exposure to COVID-19; Z71.6 Tobacco abuse counseling; Z56.0 Unemployment, unspecified; Z79.51 Long term (current) use of inhaled steroids; Z79.899 Other long term (current) drug therapy
CPT/HCPCS: 36415; 80053; 80061; 80307; 81003; 82607; 82746; 82947; 83036; 83735; 84439; 84443; 85025; 87635; 93005; 94640; 94664; 99285

== ENCOUNTER 2022-05-26 05:43 | Emergency (ER) | payer OTHER, SELFPAY ==
--- NOTE | ~2022-05-26 | CT_ITS ---
EXAMINATION: CT HEAD WITHOUT CONTRAST CLINICAL INFORMATION: Unresponsive. COMPARISON: Head CT scan dated 08/18/2017. TECHNIQUE: Contiguous axial imaging was performed from the skull base to vertex without intravenous administration of contrast. Coronal and sagittal reformatted images were obtained. This CT examination was performed using dose optimization techniques as appropriate, variously including the following: *Automated exposure control *Adjustment of mA and/or kV according to patient size (this includes techniques or standardized protocols for targeted exams where dose is matched to indication/reason for exam; i.e. extremities or head) *Use of iterative reconstruction technique DLP: 715 mGy-cm FINDINGS: The cortical sulci are normal. The lateral ventricles are symmetrical. The third and fourth ventricles are in their normal midline position. The basilar and prepontine cisterns are unremarkable. There is no acute intra or extracerebral abnormality. There is no mass effect or midline shift. Sections through the bony calvarium are unremarkable. The paranasal sinuses are clear. The bony orbits and orbital contents are unremarkable. Mild anterior nasal septal deviation, apex the left. Small mid nasal left septal spur. CT/CT head/brain wo IV con IMPRESSION: No acute intracranial pathology.
[2022-05-26 06:11] VITALS: BP 102/52; BP 94/56; PULSE 57; PULSE 91; RESP 10; TEMP 36.4; O2SAT 95; O2SAT 97; BMI 30.2
--- NOTE | 2022-05-26 06:39 | PC.NURSE ---
Pt. on color television console monitor at this time
[2022-05-26 07:16] LABS: MANUAL DIFF FLAG NO
[2022-05-26 07:17] LABS: Basophils Percent Auto 0.3 % (0-2); Eosinophils Absolute Auto 0.1 X10*3/uL (0.0-0.4); Eosinophils Percent Auto 1.7 % (0-4); Hematocrit 38.3 % (42.0-52.0); Hemoglobin 12.9 g/dl (14.0-18.0); Imm Gran Abs Auto 0.02 X10*3/uL (0.00-0.03); Imm Gran Pct Auto 0.3 % (0.0-0.4); Lymphocytes Absolute Auto 1.7 X10*3/uL (1.2-4.9); Lymphocytes Percent Auto 23.6 % (20-40); Mean Corpuscular HGB Conc 33.7 g/dl (31.0-36.0); Mean Corpuscular Hemoglobin 26.6 pg (27.0-33.0); Mean Platelet Volume 9.4 fL (9.4-12.4); Monocytes Absolute Auto 0.7 X10*3/uL (0.1-1.2); Monocytes Percent Auto 10.3 % (2-11); Neutrophils Absolute Auto 4.6 x10*3/uL (2.0-8.3); Neutrophils Percent Auto 63.8 % (45-73); Platelet Count 301 X10*3/uL (160-400); Red Blood Count 4.85 X10*6/uL (4.60-5.80); Red Cell Distribution Width 13.1 % (11.0-16.0); White Blood Count 7.2 X10*3/uL (4.8-10.8)
[2022-05-26 07:39] LABS: Alanine Aminotransferase 34 U/L (0-40); Alkaline Phosphatase 70 U/L (39-117); Anion Gap 16 (12-20); Aspartate Amino Transferase 39 U/L (5-37); Bilirubin Total 0.6 mg/dL (0.0-1.0); Blood Urea Nitrogen 11 mg/dL (9-16); Carbon Dioxide 26 mmol/L (22-29); Chloride 103 mmol/L (96-108); Estimated Glomerular Filt Rate > 60; Ethanol < 10 mg/dL; Glucose Random 90 mg/dL (60-115); Potassium 3.9 mmol/L (3.3-5.1); Sodium 141 mmol/L (135-145); Total Protein 6.8 g/dL (6.5-8.0)
[2022-05-26 07:44] LABS: Lactic Acid 0.9 mmol/L (0.5-2.0)
[2022-05-26 07:52] LABS: Acetaminophen LAB < 1 mcg/mL (<30); Salicylate < 5.0 mg/dL (15-30)
[2022-05-26] MEDS: 0.9 % Sodium Chloride 500 ML IV (08:27)
[2022-05-26] MEDS: Piperacillin Sodium/Tazobactam 3.375 GM in 0.9 % Sodium Chloride 50 ML IV (08:28)
--- NOTE | 2022-05-26 08:38 | PC.NURSE ---
pt is sleeping resp even and unlabored. lungs - diminished. heart sounds regular. bs + x 4 quads. heplock # 20 to l foot. no edema noted.
[2022-05-26 08:43] LABS: COVID-19 Test Negative (Negative)
--- NOTE | 2022-05-26 09:00 | PC.NURSE ---
patient wash and complete bed change.
[2022-05-26 09:34] VITALS: BP 88/54; PULSE 60; RESP 12; O2SAT 95
[2022-05-26] MEDS: vancomycin HCL 1,500 MG in 0.9 % Sodium Chloride 500 ML 333.33 MG IV (09:39)
[2022-05-26] MEDS: 0.9 % Sodium Chloride 1,000 ML 999 ML IV (09:42)
--- NOTE | 2022-05-26 12:15 | HO.SUDE ---
SUDE Patient is a 32 year old Vietnamese speaking male who presented to [facility] ED via EMS after being seen in the community nodding off, appearing sick. This typewriter assembly and parts inspector met with patient to offer SUDE. Patient denies recent heroin use. Patient reports he was using heroin prior to his psychiatric hospitalization on M5 in January and reports he has not used heroin intentionally since then. Patient reports he recently relapsed and started using cocaine within the past week and states he is aware that the cocaine has fentanyl in it as he tests it prior to use. Patient reports a desire to stop using again and reports he is familiar with how to access services. Patient is currently on 135mg of methadone provided through [facility]. Patient is requesting his methadone at this time. CLAUDIO completed and faxed to [facility]. Xiao at [facility] reports patient was last in the office yesterday, 05/25 and that he received 135mg and 3 take home bottles. This typewriter assembly and parts inspector instructed patient to not take the bottle assigned for today and to bring it full to the clinic during his next scheduled visit. Patient acknowledged and is familiar with OT protocol. Patient reports he has found methadone treatment to be helpful and states he started 4 years ago. Patient reports a history of overdoses but reports he has not overdosed recently. Patient reports numerous detox admissions, more than I can count. Patient is declining ATS referrals at this time. Patient denies alcohol use. Patient is comfortable with plan to discharge with antibiotic prescription. Patient reports no questions or concerns at this time. Discussed case with ED physician. Recovery Support Team available as needed.
--- NOTE | 2022-05-26 12:39 | ED.GENADULT ---
HPI - General Adult General Chief complaint: ETOH/Substance Use Stated complaint: LETHARGIC Time Seen by Provider: 05/26/22 06:46 Source: patient, EMS and old records reviewed History of Present Illness HPI narrative: Patient with a history of IV drug use disorder on methadone for opioid use disorder, presents today after being found lethargic outdoors. Patient initially very somnolent and nonverbal. No evidence of trauma. When patient eventually awoke, he denies any he has complaints other than pain in his right arm and forearm which he believes are infected. No recent illness or fevers or chills. He reports IV heroin use today. Related Data Home Medications Medication Instructions Recorded Confirmed clonazepam 1 mg tablet 1 tab PO TID 01/30/21 02/22/22 fluoxetine 40 mg capsule 1 cap PO QAM 01/30/21 02/22/22 gabapentin 300 mg capsule 1 cap PO BEDTIME 01/30/21 02/22/22 gabapentin 600 mg tablet 1 tab PO TID 01/30/21 02/22/22 metformin 500 mg tablet 1 tab PO BID 01/30/21 02/22/22 methadone 10 mg/mL oral 135 mg PO DAILY 01/30/21 05/26/22 concentrate (Methadone Intensol) albuterol sulfate 90 mcg/actuation 2 puff inhalation QID PRN wheezing 02/22/22 02/22/22 aerosol inhaler (ProAir HFA) fluticasone propionate 110 1 puff inhalation BID 02/22/22 02/22/22 mcg/actuation HFA aerosol inhaler (Flovent HFA) Previous Rx's Medication Instructions Recorded clonidine HCl 0.1 mg tablet 0.1 mg PO TID #90 tabs 03/02/22 mirtazapine 7.5 mg tablet 7.5 mg PO BEDTIME #30 tabs 03/02/22 nicotine (polacrilex) 2 mg gum 4 mg buccal Q2H PRN nicotine 03/02/22 withdrawal #20 ea nicotine 21 mg/24 hr daily 21 mg transdermal DAILY PRN 03/02/22 transdermal patch smoking cessation #28 ea quetiapine 50 mg tablet 150 mg PO BEDTIME #90 tabs 03/02/22 Allergies Allergy/AdvReac Type Severity Reaction Status Date / Time Pertussis Vaccines Allergy Mild HIVES Verified 02/04/21 14:00 [PERTUSSIS VACCINES] Review of Systems Constitutional: Comments: No fevers or chills Cardiovascular: Comments: No chest pain Respiratory: Comments: No shortness of breath Gastrointestinal: Comments: No abdominal pain or nausea or vomiting Integumentary/Breasts: Comments: Right hand and forearm redness PMFSH Past Medical History Medical History (Updated 05/26/22 @ 12:51 by Mac Jordan MD) Anxiety Asthma Cocaine use with cocaine-induced disorder Depression Diabetes IVDU (intravenous drug user) Major depressive disorder, recurrent severe without psychotic features Opiate dependence, continuous Family History Family History Father Heart disease Social History Social History Household Members: Family Household Members Other:: Mother and brother Housing: House Do you presently have visiting nurse or other home services: No Alcohol intake: never Patient Tobacco Use Status: Current everyday Tobacco user Tobacco use type: Cigarette Cigarette Packs Per Day: 1 Cigarettes Per Day: 20.0 Years Smoked: 16 e-Cigarette/Vaping Use: Currently Using Second Hand Smoke Exposure: Yes Substance Use Type: Crack/Cocaine and Heroin Advance Directives: No Advance Directives Date on File: 01/30/21 service: No Current occupational status: unemployed Sexual orientation: Straight/Heterosexual Physical Exam ED Vital Signs: Vital Signs - 24 hr 05/26/22 06:11 05/26/22 09:34 Temperature 97.6 F Pulse Rate 57 60 Respiratory Rate 10 L 12 Blood Pressure 94/56 L 88/54 L Pulse Oximetry 97 95 Oxygen Delivery Method Room Air Room Air BMI result Body Mass Index 30.2 Const Other: Initially somnolent. After several hours awake and alert in no acute distress HENMT Other: Normocephalic atraumatic Eyes Other: Pupils are midpoint. Resp Other: Clear and equal bilaterally Cardio Other: Regular rate and rhythm without murmurs rubs or gallops GI Other: Soft nontender nondistended Skin Other: Right hand and forearm with increased warmth and erythema in the areas of IV drug injection. Positive ?track ratliff?. No fluctuant areas or evidence of abscess Neuro Other: Nonfocal neuro exam Psych Other: Denies suicidal ideation Course Course Course Narrative: Opioid ingestion without bernard overdose. Observed until he was awake. Seen by care worker and offered help with detox. Substance use disorder evaluation offered Lab work is unremarkable with normal white count. Stable for discharge home Medical Decision Making Lab Data Result diagrams: 05/26/22 07:11 05/26/22 07:11 Labs: Lab Results 05/26/22 05/26/22 05/26/22 Range/Units 07:11 07:11 07:16 WBC 7.2 (4.8-10.8) X10*3/uL RBC 4.85 (4.60-5.80) X10*6/uL Hgb 12.9 L (14.0-18.0) g/dl Hct 38.3 L (42.0-52.0) % MCV 79.0 L (80.0-98.0) fL MCH 26.6 L (27.0-33.0) pg MCHC 33.7 (31.0-36.0) g/dl RDW 13.1 (11.0-16.0) % Plt Count 301 (160-400) X10*3/uL MPV 9.4 (9.4-12.4) fL Immature Gran % (Auto) 0.3 (0.0-0.4) % Neut % (Auto) 63.8 (45-73) % Lymph % (Auto) 23.6 (20-40) % Morrison % (Auto) 10.3 (2-11) % Eos % (Auto) 1.7 (0-4) % Baso % (Auto) 0.3 (0-2) % Lymph # (Auto) 1.7 (1.2-4.9) X10*3/uL Morrison # (Auto) 0.7 (0.1-1.2) X10*3/uL Eos # (Auto) 0.1 (0.0-0.4) X10*3/uL Baso # (Auto) 0.0 (0.0-0.2) X10*3/uL Abs Immat Gran (auto) 0.02 (0.00-0.03) X10*3/uL Absolute Neuts (auto) 4.6 (2.0-8.3) x10*3/uL Absolute Nucleated RBC 0.000 (0.0-0.012) X10*3/uL Nucleated RBC % (auto) 0.0 (0.0-0.2) /100WBC Sodium 141 (135-145) mmol/L Potassium 3.9 (3.3-5.1) mmol/L Chloride 103 (96-108) mmol/L Carbon Dioxide 26 (22-29) mmol/L Anion Gap 16 (12-20) BUN 11 (9-16) mg/dL Creatinine 0.68 (0.5-1.4) mg/dL Estim Creat Clear Calc 181.0 Estimated GFR > 60 Random Glucose 90 D (60-115) mg/dL Lactic Acid 0.9 (0.5-2.0) mmol/L Calcium 9.0 D (8.4-10.2) mg/dL Total Bilirubin 0.6 (0.0-1.0) mg/dL AST 39 H D (5-37) U/L ALT 34 (0-40) U/L Alkaline Phosphatase 70 (39-117) U/L Total Protein 6.8 (6.5-8.0) g/dL Albumin 4.0 (3.5-5.0) g/dL Salicylates < 5.0 L (15-30) mg/dL Acetaminophen < 1 (<30) mcg/mL Ethyl Alcohol < 10 mg/dL COVID-19 (GALDINO) (Negative) COVID-19 Clin Com 05/26/22 Range/Units 08:20 WBC (4.8-10.8) X10*3/uL RBC (4.60-5.80) X10*6/uL Hgb (14.0-18.0) g/dl Hct (42.0-52.0) % MCV (80.0-98.0) fL MCH (27.0-33.0) pg MCHC (31.0-36.0) g/dl RDW (11.0-16.0) % Plt Count (160-400) X10*3/uL MPV (9.4-12.4) fL Immature Gran % (Auto) (0.0-0.4) % Neut % (Auto) (45-73) % Lymph % (Auto) (20-40) % Morrison % (Auto) (2-11) % Eos % (Auto) (0-4) % Baso % (Auto) (0-2) % Lymph # (Auto) (1.2-4.9) X10*3/uL Morrison # (Auto) (0.1-1.2) X10*3/uL Eos # (Auto) (0.0-0.4) X10*3/uL Baso # (Auto) (0.0-0.2) X10*3/uL Abs Immat Gran (auto) (0.00-0.03) X10*3/uL Absolute Neuts (auto) (2.0-8.3) x10*3/uL Absolute Nucleated RBC (0.0-0.012) X10*3/uL Nucleated RBC % (auto) (0.0-0.2) /100WBC Sodium (135-145) mmol/L Potassium (3.3-5.1) mmol/L Chloride (96-108) mmol/L Carbon Dioxide (22-29) mmol/L Anion Gap (12-20) BUN (9-16) mg/dL Creatinine (0.5-1.4) mg/dL Estim Creat Clear Calc Estimated GFR Random Glucose (60-115) mg/dL Lactic Acid (0.5-2.0) mmol/L Calcium (8.4-10.2) mg/dL Total Bilirubin (0.0-1.0) mg/dL AST (5-37) U/L ALT (0-40) U/L Alkaline Phosphatase (39-117) U/L Total Protein (6.5-8.0) g/dL Albumin (3.5-5.0) g/dL Salicylates (15-30) mg/dL Acetaminophen (<30) mcg/mL Ethyl Alcohol mg/dL COVID-19 (GALDINO) Negative (Negative) COVID-19 Clin Com See Note Discharge Plan Discharge Clinical Impression: Opioid use disorder Patient Disposition: Home, Self-Care Instructions: Opioid Use Disorder (ED) Additional Instructions: Talk to her counselors and your methadone treatment to [facility] about today. Prescriptions: No Action fluoxetine 40 mg capsule 1 cap PO QAM metformin 500 mg tablet 1 tab PO BID gabapentin 600 mg tablet 1 tab PO TID clonazepam 1 mg tablet 1 tab PO TID gabapentin 300 mg capsule 1 cap PO BEDTIME Rx Instructions: takes with 600 mg dose at bedtime methadone [Methadone Intensol] 10 mg/mL Concentrate 135 mg PO DAILY albuterol sulfate [ProAir HFA] 90 mcg/actuation HFA aerosol inhaler 2 puff inhalation QID PRN (Reason: wheezing) fluticasone propionate [Flovent HFA] 110 mcg/actuation HFA aerosol inhaler 1 puff inhalation BID nicotine 21 mg/24 hr Patch 24 Hour 21 mg transdermal DAILY PRN (Reason: smoking cessation) Qty: 28 0RF mirtazapine 7.5 mg Tablet 7.5 mg PO BEDTIME Qty: 30 0RF quetiapine 50 mg Tablet 150 mg PO BEDTIME Qty: 90 0RF clonidine HCl 0.1 mg tablet 0.1 mg PO TID Qty: 90 0RF nicotine (polacrilex) 2 mg Gum 4 mg buccal Q2H PRN (Reason: nicotine withdrawal) Qty: 20 0RF
[2022-05-26 13:19] VITALS: BP 95/60; PULSE 61; RESP 12; TEMP 36.4; O2SAT 96
[2022-05-26] MEDS: methADONE HCl 20 MG/2 ML ORAL.CONC 135 MG PO (13:23)
== END 2022-05-26 13:54 | disposition home or self-care (01) ==
PROVIDERS: Emergency Provider Emergency Medicine; PCP Internal Medicine
DX: F11.19 Opioid abuse with unspecified opioid-induced disorder (principal); F14.10 Cocaine abuse, uncomplicated; F17.210 Nicotine dependence, cigarettes, uncomplicated; Z20.822 Contact with and (suspected) exposure to COVID-19; Z71.6 Tobacco abuse counseling; Z79.899 Other long term (current) drug therapy
CPT/HCPCS: 36415; 70450; 80053; 80143; 80179; 82077; 83605; 85025; 87040; 87635; 96361; 96365; 96366; 96375; 99284; J2543; J3370

== ENCOUNTER 2022-06-29 22:43 | Observation (INO) | payer OTHER, SELFPAY ==
--- NOTE | ~2022-06-29 | XR_ITS ---
EXAMINATION: XR CHEST CLINICAL INFORMATION: Overdose COMPARISON: 01/30/2021 TECHNIQUE: Frontal view of the chest was obtained. FINDINGS: No significant abnormality is noted involving the heart, lungs, mediastinum, bony thorax or soft tissues. XR/XR chest 1V IMPRESSION: Unremarkable examination.
[2022-06-29 22:50] VITALS: BP 131/87; PULSE 78; O2SAT 97
[2022-06-29 22:56] VITALS: BP 117/76; PULSE 73; RESP 21; O2SAT 94; BMI 29.7
--- NOTE | 2022-06-29 23:00 | ED.OVERDOSE ---
HPI - Overdose General Chief Complaint: Overdose Stated Complaint: OD Time Seen by Provider: 06/29/22 22:58 Source: EMS Mode of arrival: EMS Limitations: altered mental status History of Present Illness HPI Narrative: Patient comes to the emergency room via EMS. Patient was found in his house, overdose by his brother. According to EMS, the patient's mother reported that the patient received 5 doses of 4 mg each of Narcan (20 mg intranasal), between doses, patient woke up, vomited and then fell back asleep. Related Data Home Medications Medication Instructions Recorded Confirmed clonazepam 1 mg tablet 1 tab PO TID 01/30/21 02/22/22 fluoxetine 40 mg capsule 1 cap PO QAM 01/30/21 02/22/22 gabapentin 300 mg capsule 1 cap PO BEDTIME 01/30/21 02/22/22 gabapentin 600 mg tablet 1 tab PO TID 01/30/21 02/22/22 metformin 500 mg tablet 1 tab PO BID 01/30/21 02/22/22 methadone 10 mg/mL oral 135 mg PO DAILY 01/30/21 05/26/22 concentrate (Methadone Intensol) albuterol sulfate 90 mcg/actuation 2 puff inhalation QID PRN wheezing 02/22/22 02/22/22 aerosol inhaler (ProAir HFA) fluticasone propionate 110 1 puff inhalation BID 02/22/22 02/22/22 mcg/actuation HFA aerosol inhaler (Flovent HFA) Previous Rx's Medication Instructions Recorded clonidine HCl 0.1 mg tablet 0.1 mg PO TID #90 tabs 03/02/22 mirtazapine 7.5 mg tablet 7.5 mg PO BEDTIME #30 tabs 03/02/22 nicotine (polacrilex) 2 mg gum 4 mg buccal Q2H PRN nicotine 03/02/22 withdrawal #20 ea nicotine 21 mg/24 hr daily 21 mg transdermal DAILY PRN 03/02/22 transdermal patch smoking cessation #28 ea quetiapine 50 mg tablet 150 mg PO BEDTIME #90 tabs 03/02/22 Allergies Allergy/AdvReac Type Severity Reaction Status Date / Time Pertussis Vaccines Allergy Mild HIVES Verified 02/04/21 14:00 [PERTUSSIS VACCINES] Review of Systems Review of Systems: Yes Unobtainable due to mental status PMFSH Past Medical History Medical History Anxiety Asthma Cocaine use with cocaine-induced disorder Depression Diabetes IVDU (intravenous drug user) Major depressive disorder, recurrent severe without psychotic features Opiate dependence, continuous Family History Family History Father Heart disease Social History Social History Household Members: Family Household Members Other:: Mother and brother Housing: House Do you presently have visiting nurse or other home services: No Alcohol intake: never Patient Tobacco Use Status: Current everyday Tobacco user Tobacco use type: Cigarette Cigarette Packs Per Day: 1 Cigarettes Per Day: 20.0 Years Smoked: 16 e-Cigarette/Vaping Use: Currently Using Second Hand Smoke Exposure: Yes Substance Use Type: Crack/Cocaine and Heroin Advance Directives: No Advance Directives Information Provided: Yes Advance Directives Date on File: 01/30/21 service: No Current occupational status: unemployed Sexual orientation: Straight/Heterosexual Physical Exam Vital Signs: Vital Signs: Last Vital Signs Temp 98.6 F 06/29/22 23:46 Pulse 76 06/29/22 23:46 Resp 19 06/29/22 23:46 BP 120/68 06/29/22 23:46 Pulse Ox 98 06/29/22 23:46 O2 Del Method 06/29/22 23:46 O2 Flow Rate 2 06/29/22 23:46 BMI result Body Mass Index 29.7 Course Course Course Narrative: Patient around 414, oxygen saturation 96% on room air. Care/sude consult pending Sign-out given to Dr. Duvall Physician observation started at 00:20 Discharge Plan Discharge Clinical Impression: Drug overdose Patient Disposition: Still a Patient Prescriptions: No Action fluoxetine 40 mg capsule 1 cap PO QAM metformin 500 mg tablet 1 tab PO BID gabapentin 600 mg tablet 1 tab PO TID clonazepam 1 mg tablet 1 tab PO TID gabapentin 300 mg capsule 1 cap PO BEDTIME Rx Instructions: takes with 600 mg dose at bedtime methadone [Methadone Intensol] 10 mg/mL Concentrate 135 mg PO DAILY albuterol sulfate [ProAir HFA] 90 mcg/actuation HFA aerosol inhaler 2 puff inhalation QID PRN (Reason: wheezing) fluticasone propionate [Flovent HFA] 110 mcg/actuation HFA aerosol inhaler 1 puff inhalation BID nicotine 21 mg/24 hr Patch 24 Hour 21 mg transdermal DAILY PRN (Reason: smoking cessation) Qty: 28 0RF mirtazapine 7.5 mg Tablet 7.5 mg PO BEDTIME Qty: 30 0RF quetiapine 50 mg Tablet 150 mg PO BEDTIME Qty: 90 0RF clonidine HCl 0.1 mg tablet 0.1 mg PO TID Qty: 90 0RF nicotine (polacrilex) 2 mg Gum 4 mg buccal Q2H PRN (Reason: nicotine withdrawal) Qty: 20 0RF
--- NOTE | 2022-06-29 23:20 | PC.NURSE ---
Pt changed over into hospital gown. Pt belongings placed in personal belonging bag. Pt not alert or orientated. Pt placed on [place] Vel[place] to prevent skin breakdowns from urination until he is awake and orientated.
[2022-06-29 23:46] VITALS: BP 120/68; PULSE 76; RESP 19; TEMP 37; O2SAT 98
[2022-06-30] VITALS (10 sets, daily range): BP systolic 92–126; BP diastolic 59–88; PULSE 53–79; RESP 7–17; TEMP 36.2–37.2; O2SAT 90–99
--- NOTE | 2022-06-30 | ECG_ITS ---
Test Reason : OVERDOSE Blood Pressure : / mmHG Vent. Rate : 074 BPM Atrial Rate : 074 BPM P-R Int : 134 ms QRS Dur : 092 ms QT Int : 432 ms P-R-T Axes : 030 008 034 degrees QTc Int : 479 ms Normal sinus rhythm with sinus arrhythmia Prolonged QTc Abnormal ECG When compared with ECG of 28-FEB-2022 11:03, QT has lengthened Referred By: Kendall Kimball Electronically Signed By:Jameson Bellamy
--- NOTE | 2022-06-30 10:15 | MHC.RECOVRN ---
This documentation writer attempted to meet w/ pt, pt somnolent, alert for a moment to verbal stimuli, quickly fell back asleep. Pt unable to answer questions at this time. T/W will f/u when pt more alert.
--- NOTE | 2022-06-30 11:48 | PC.NURSE ---
MOTHER JOHN WOULD LIKE A CALL FROM [place] [phone] TEAM
[2022-06-30] MEDS: Naloxone HCl 0.4 MG/ML VIAL IVPUSH ×2 (11:49→16:12)
--- NOTE | 2022-06-30 12:11 | PC.NURSE ---
Pt had a small increase in alertness after Narcan was given.
[2022-06-30] MEDS: 0.9 % Sodium Chloride 1,000 ML 999 ML IV (14:13)
[2022-06-30 14:54] LABS: MANUAL DIFF FLAG NO
[2022-06-30 15:07] LABS: Basophils Absolute Auto 0.1 X10*3/uL (0.0-0.2); Basophils Percent Auto 0.6 % (0-2); Eosinophils Absolute Auto 0.1 X10*3/uL (0.0-0.4); Hematocrit 35.6 % (42.0-52.0); Hemoglobin 11.9 g/dl (14.0-18.0); Imm Gran Abs Auto 0.19 X10*3/uL (0.00-0.03); Imm Gran Pct Auto 2.2 % (0.0-0.4); Lymphocytes Absolute Auto 1.7 X10*3/uL (1.2-4.9); Lymphocytes Percent Auto 19.6 % (20-40); Mean Corpuscular HGB Conc 33.4 g/dl (31.0-36.0); Mean Corpuscular Volume 80.7 fL (80.0-98.0); Mean Platelet Volume 9.4 fL (9.4-12.4); Monocytes Absolute Auto 0.9 X10*3/uL (0.1-1.2); Monocytes Percent Auto 10.1 % (2-11); Neutrophils Absolute Auto 5.8 x10*3/uL (2.0-8.3); Neutrophils Percent Auto 66.5 % (45-73); Platelet Count 294 X10*3/uL (160-400); Red Blood Count 4.41 X10*6/uL (4.60-5.80); Red Cell Distribution Width 12.9 % (11.0-16.0); White Blood Count 8.6 X10*3/uL (4.8-10.8)
[2022-06-30 15:21] LABS: Acetaminophen LAB < 1 mcg/mL (<30); Alanine Aminotransferase 15 U/L (0-40); Albumin Level 3.5 g/dL (3.5-5.0); Alkaline Phosphatase 67 U/L (39-117); Anion Gap 16 (12-20); Aspartate Amino Transferase 19 U/L (5-37); Bilirubin Direct 0.2 mg/dL (0.0-0.5); Blood Urea Nitrogen 10 mg/dL (9-16); Carbon Dioxide 24 mmol/L (22-29); Chloride 106 mmol/L (96-108); Creatinine Clr Calc Pharmacy 176.9; Estimated Glomerular Filt Rate > 60; Ethanol < 10 mg/dL; Glucose Random 75 mg/dL (60-115); Lipase 5 U/L (8-78); Magnesium 1.8 mg/dL (1.6-2.6); Potassium 4.1 mmol/L (3.3-5.1); Salicylate < 5.0 mg/dL (15-30); Sodium 142 mmol/L (135-145); Total Protein 6.7 g/dL (6.5-8.0)
[2022-06-30 15:36] LABS: Bilirubin Total 0.5 mg/dL (0.0-1.0)
--- NOTE | 2022-06-30 16:30 | PHA.MEDREC ---
Pharmacy Consult ? Medication Reconciliation Pharmacy has completed the medication reconciliation.
[2022-06-30 16:41] LABS: ABG Refer to POC result
[2022-06-30 16:42] LABS: ABG Base Excess 2.6 mmol/L; ABG HCO3 25 mmol/L (22-26); ABG pCO2 33 mmHg (32-45); ABG pH 7.49 (7.35-7.45); ABG pO2 77 mmHg (83-108)
--- NOTE | 2022-06-30 18:41 | P.HPHOSP_ITS ---
History of Present Illness Date of Service: 06/30/22 Attending physician on admission: Kendall Kimball Chief Complaint: possible opiod overdose ,severe depression/SI 32-year-old male with a history anxiety, depression diabetes, asthma, IVDU? on methadone?: patient came to the hospital because of drug overdose- initially patient was lethargic- in ED was given Narcan x2 in addition to that he received 20 mg of intranasal Narcan by EMS- patient is more awake late in the evening- so called for opioid overdose admission. history taken by ED physician and patient's mother, patient could add only if little: as per patient mother patient started using cocaine / heroin again in May- last night dog was scratching his door so they found patienton the floor- Patient family also found needles and drugs on the floor- as per his mother's he has used cocaine / heroin but she does not know how much amount he used. mother Denies any other drug use. subsequently received as above Narcan by EMS- as per the patient he was vomiting afterwards and he does not remember what happened to him- but still somewhat sleepy ,could not answer all the questions. his mother added also that he is severely depressed and has mentioned multiple times use suicidal thoughts, she is concerned that he was planning to do suicide this time. Patient answers only few questions could able to tell no chest pain or shortness of breath or abdominal pain or nausea vomiting currently follow simple commands discussed with the ED in detail they still did not send urine toxicology- talked to the staff in detail to do straight cath to send the urine for toxicology.. labs reviewed: CBC, CMP, ABG seems fine chest x-ray and EKG pending Review of Systems Review of Systems: as above. [facility] Medical History (Updated 06/30/22 @ 18:58 by Kendall Kimball MD) Anxiety Asthma Cocaine use with cocaine-induced disorder Depression Diabetes Diabetes IVDU (intravenous drug user) Major depressive disorder, recurrent severe without psychotic features Opiate dependence, continuous Family History Father Heart disease Social History Household Members: Family Household Members Other:: Mother and brother Housing: House Do you presently have visiting nurse or other home services: No Alcohol intake: never Patient Tobacco Use Status: Current everyday Tobacco user Tobacco use type: Cigarette Cigarette Packs Per Day: 1 Cigarettes Per Day: 20.0 Years Smoked: 16 e-Cigarette/Vaping Use: Currently Using Second Hand Smoke Exposure: Yes Substance Use Type: Crack/Cocaine and Heroin Advance Directives: No Advance Directives Information Provided: Yes Advance Directives Date on File: 01/30/21 service: No Current occupational status: unemployed Sexual orientation: Straight/Heterosexual Meds Allergies Allergy/AdvReac Type Severity Reaction Status Date / Time Pertussis Vaccines Allergy Mild HIVES Verified 02/04/21 14:00 [PERTUSSIS VACCINES] Active Medications: Current Medications Albuterol/Ipratropium (Albuterol/Iprat 2.5/0.5mg 3 Ml Ampul.Neb) 3 ml INHALE RQ4H WHILE AWAKE SUKHDEEP Dextrose/Sodium Chloride (D5ns) 1,000 mls @ 100 mls/hr IVCONT .Q10H SUKHDEEP Naloxone HCl (Naloxone Hcl 0.4 Mg/Ml Vial) 0.4 mg IVPUSH ONCE PRN PRN Reason: overdose symptoms Sodium Chloride (0.9 % Sodium Chloride Flush 3 Ml Syringe) 3 ml IVFLUSH QSHIFT [facility] Home Medications Medication Instructions Recorded Confirmed Last Taken Type clonazepam 1 mg tablet 1 tab PO TID 01/30/21 06/30/22 02/21/22 History fluoxetine 40 mg capsule 1 cap PO DAILY 01/30/21 06/30/22 2 Days Ago History ~02/20/22 gabapentin 300 mg capsule 1 cap PO BEDTIME 01/30/21 06/30/22 2 Days Ago History ~02/20/22 gabapentin 600 mg tablet 1 tab PO TID 01/30/21 06/30/22 2 Days Ago History ~02/20/22 metformin 500 mg tablet 1 tab PO BID 01/30/21 06/30/22 2 Days Ago History ~02/20/22 methadone 10 mg/mL oral 135 mg PO DAILY 01/30/21 05/26/22 02/21/22 History concentrate (Methadone Intensol) albuterol sulfate 90 mcg/actuation 2 puff inhalation QID PRN wheezing 02/22/22 06/30/22 Unknown History aerosol inhaler (ProAir HFA) fluticasone propionate 110 1 puff inhalation BID 02/22/22 06/30/22 Unknown History mcg/actuation HFA aerosol inhaler (Flovent HFA) quetiapine 100 mg tablet 1 - 2 tab PO BEDTIME PRN Anxiety 06/30/22 06/30/22 Unknown History Physical Exam Vital Signs and Narrative: Vital Signs: Last Vital Signs Temp 97.4 F 06/30/22 16:09 Pulse 55 06/30/22 16:09 Resp 16 06/30/22 16:09 BP 118/76 06/30/22 16:09 Pulse Ox 97 06/30/22 16:09 O2 Del Method 06/30/22 16:09 O2 Flow Rate 2 06/30/22 06:01 BMI result Body Mass Index 29.7 Appearance: Alert.? Oriented X2.? somewhat somloscent.? Eyes: Pupils equal, reactive , currently does not seem pinpoint.? Sclera nonicteric.? ENT: Pharynx normal.? Moist mucous membranes. cvs: rrr, [id number] , res: clear to auscultation ,no rhonchii or wheezing abd: no rebound or guarding ,nt, bs present. ext pulses present , no cyanosis. neuro: axo3 , nonfocal. Results Labs CBC and Chem 7: 06/30/22 14:48 06/30/22 14:48 Labs: Laboratory Results - last 24 hr 06/30/22 06/30/22 06/30/22 14:48 14:48 16:35 MCV 80.7 MCH 27.0 MCHC 33.4 RDW 12.9 Plt Count 294 MPV 9.4 Immature Gran % (Auto) 2.2 H Neut % (Auto) 66.5 Lymph % (Auto) 19.6 L [place] % (Auto) 10.1 Eos % (Auto) 1.0 Baso % (Auto) 0.6 Lymph # (Auto) 1.7 [place] # (Auto) 0.9 Eos # (Auto) 0.1 Baso # (Auto) 0.1 Abs Immat Gran (auto) 0.19 H Absolute Neuts (auto) 5.8 Absolute Nucleated RBC 0.000 Nucleated RBC % (auto) 0.0 O2 Saturation 96.0 ABG pH at Pt Temp 7.49 H ABG pCO2 at Pt Temp 33 ABG pO2 at Pt Temp 77 L ABG HCO3 25 ABG Base Excess (Actual) 2.6 Anion Gap 16 Estim Creat Clear Calc 176.9 Estimated GFR > 60 Random Glucose 75 Calcium 9.0 Magnesium 1.8 Total Bilirubin 0.5 Direct Bilirubin 0.2 AST 19 D ALT 15 Alkaline Phosphatase 67 Total Protein 6.7 Albumin 3.5 Lipase 5 L Salicylates < 5.0 L Acetaminophen < 1 Ethyl Alcohol < 10 ECG Attestation: I personally reviewed and interpreted this ECG as follows: (pending) Assessment and Plan (1) Drug overdose: Status: Acute (2) Diabetes: Status: Acute Plan 32-year-old male with a history anxiety, depression diabetes, asthma, IVDU? on methadone, Severely depressed/suicidal, came with possible opioid overdose . 1. opioid overdose: more awake Narcan at bedside ekg and cxr pending to complete the workup neuro checks, monitor respiratory status, so far is sats are 97% on room air, monitor tele. 2. Suicidal/severely depressed: sitter, BH and care team evaluation patient will need BHn clearance before discharge 3. dm:fs in 75 's range npo added iv hydration fs with adjusted coverage, no coverage no coverage below 200 mg/dL. 4. asthma: no sob nebs added dvt prophylax: mech devices ,ambulation above management discussed with the patient and his mother( with patient's consent) in detail length she understand and in agreement with the plan, time spent 70 minute. Quality Stroke Does the patient have a stroke diagnosis?: No VTE Prior VTE?: No VTE Risk Level:: Medical - moderate - high VTE Device Contraindication: N/A - Device Ordered VTE Drug Contraindication: N/A - Med Ordered
[2022-06-30] MEDS: Dextrose 5 % and 0.9 % NaCl 1,000 ML 100 ML IVCONT (19:17)
--- NOTE | 2022-06-30 19:37 | PC.NURSE ---
rounding don,t ,vs taken ,pt ask for food ,so i told pt he cant have anything to eat or drink per md order .
[2022-06-30 21:48] LABS: Glucose, Whole Blood 100 mg/dL (60-115)
--- NOTE | 2022-06-30 21:59 | PC.NURSE ---
HIS PCT NOTICE THAT PT DID NOT VOID ON MY SHIFT SO I DID A BLADDER SCAN ,PT HAD 999 ML URINE IN BLADDER ,CHARLEY ALMAGUER IS AWARE .
[2022-06-30 22:47] LABS: Amphetamine Screen Urine Not Detected (Not Detect); Barbiturates, Urine Not Detected (Not Detect); Benzodiazepines Screen Urine Not Detected (Not Detect); Cannabinoid Screen Urine Not Detected (Not Detect); Cocaine Screen Urine POSITIVE (Not Detect); Fentanyl, urine POSITIVE (Not Detect); Opiate Screen Urine POSITIVE (Not Detect); Phencyclidine Screen Urine Not Detected (Not Detect)
[2022-07-01] VITALS (11 sets, daily range): BP systolic 116–137; BP diastolic 70–85; PULSE 52–81; RESP 12–16; TEMP 36.6–37.1; O2SAT 95–98
[2022-07-01] MEDS: Dextrose 5 % and 0.9 % NaCl 1,000 ML 100 ML IVCONT ×2 (05:51→19:36)
[2022-07-01 06:31] LABS: COVID-19 Test Negative (Negative); IDNOW Serial# BCCEAD1C
--- NOTE | 2022-07-01 06:31 | PC.NURSE ---
BHN smart sheet completed
[2022-07-01 07:28] LABS: Glucose, Whole Blood 94 mg/dL (60-115)
[2022-07-01] MEDS: Albuterol/Iprat 2.5/0.5MG 3 ML AMPUL.NEB INHALE ×3 (07:30→15:04)
--- NOTE | 2022-07-01 08:22 | MHC.CARE ---
Please consult CARE Team when medically cleared.
[2022-07-01] MEDS: Magnesium Oxide 400 MG TABLET PO ×2 (09:34→17:49)
--- NOTE | 2022-07-01 12:37 | MHC.CM.PN ---
CM EMT WITH PT WHO WAS SLEEPING ON APPROACH PT MINIMALLY ENGAGED AND FELL ASLEEP BETWEEN EACH QUESTION PT DOES CONFIRM HE LIVES WITH HIS MOTHER AND IS INDEPENDENT AT BASELINE PT REPORTS BEING ACTIVE WITH A MMTP, HOWEVER DOES NOT PROVIDE AGENCY NAME PT DENIES USE OF DME IT APPEARS PT IS WITHOUT A PCP, HOWEVER HE DOES NOT PROVIDE A CLEAR ANSWER HE HAS NO HCP ON FILE OBSERVATION NOTICE DELIVERED, COPY SENT TO MEDICAL RECORDS PT WILL REQUIRE A CRISIS EVAL ONCE MEDICALLY CLEARED DCP TBD PENDING CRISIS EVAL AND RECOVERY TEAM CONSULTS
--- NOTE | 2022-07-01 13:37 | HO.SUDE ---
This conventional underwriter met w/ pt, pt had eyes open, laying in bed, able to answer questions. Pt reports has been using GERARDO IV daily. Pt reports last opiate use was 1.5 weeks ago, pt reports intermittent opiate use a couple bags of heroin IV 1-2 x's per week. Pt reports no other substances used. Pt reports periodically tests GERARDO w/ fentanyl test stips and the GERARDO has tested positive for fentanyl. Pt reports is on 135mg Methadone daily at [facility]. Pt reports last dose of methadone was 06/29/22. Pt states history of various levels of substance use tx, detox, css, tss. Pt reports had a resource recovery specialist in the past. Pt states hx of 10+ overdoses, last overdose a few years ago, pt states has been hospitatlized post overdose in the past. Pt reports has been taking Gabapentin and BZO as prescribed, [facility] reviewed. Pt reports last use of prescription Gabapentin and BZO 06/29/22. Harm reduction discussed. Will f/u w/ recovery supports after evaluated by Care Team. Pt currently reporting restless legs and nausea, Provider Trista Bolanos aware. SUDE findings reported to ED RN.
[2022-07-01 14:10] LABS: Glucose, Whole Blood 121 mg/dL (60-115)
[2022-07-01 14:10] LABS: Glucose, Whole Blood 130 mg/dL (60-115)
--- NOTE | 2022-07-01 15:17 | HO.ADDICTCON ---
History of Present Illness Date of Service: 07/01/2022 Chief Complaint: ? opoids overdose Reason for Consult: opioid overdose Sources of Information: patient interviewed and chart reviewed HPI Narrative: Patient is a 32 year old male who presented to [facility] ED following suspected opioid overdose. Per ED notes, patient was found unresponsive in his room with drug paraphernalia present. Per ED notes, mother reported being concerned that this was an attempt to end his life as he has been increasingly depressed. Required multiple doses of narcan both at home and in the ED. Somnolent in ED for the entire day yesterday and unable to participate in any type of interview. Today, awake, alert and able to engage in interview. Patient seen in ED bed 9. Laying on stretcher, initially asleep, but easily awoken. Flat affect, speech clear, but very soft, poor eye contact. Minimal responses to questions. Patient reports cocaine use--aware fentanyl in it. Last dose of methadone Tuesday, 06/29. Reports [facility] is on [facility]. Denies taking more psychiatric medications than prescribed--per [facility] prescribed Gabapentin 600mg BID+900mg at HS, Klonopin 1mg TID. This underwriter inquired about withdrawal sx, patient reported restless legs and nausea. This underwriter expressed concern in restarting methadone at previous dose, given presentation yesterday. Patient shrugged and said, ok . Past Psychiatric History: See above history of hospitalization at [facility] and [facility] Review of Systems Constitutional: Reports as per HPI Diagnostics Vital Signs (24Hr): Vital Signs - 24 hr 06/30/22 16:09 06/30/22 19:27 06/30/22 18:20 Temperature 97.4 F 98.7 F 97.4 F Pulse Rate 55 55 58 Respiratory Rate 16 15 15 Blood Pressure 118/76 125/77 121/77 Pulse Oximetry 97 97 98 Oxygen Delivery Method Room Air Room Air Room Air 06/30/22 23:59 07/01/22 03:36 07/01/22 07:11 Temperature 98.4 F 98.7 F Pulse Rate 53 68 61 Respiratory Rate 16 16 Blood Pressure 124/73 129/85 137/78 Pulse Oximetry 95 97 96 Oxygen Delivery Method Room Air Room Air Room Air 07/01/22 07:31 07/01/22 10:09 07/01/22 11:16 Temperature Pulse Rate 58 81 70 Respiratory Rate 16 16 16 Blood Pressure 124/84 Pulse Oximetry 95 Oxygen Delivery Method Room Air 07/01/22 13:53 07/01/22 15:05 Temperature Pulse Rate 69 71 Respiratory Rate 14 16 Blood Pressure 126/80 Pulse Oximetry 95 Oxygen Delivery Method Room Air BMI result Body Mass Index 29.7 Labs Results: 06/30/22 14:48 06/30/22 14:48 Labs: Laboratory Results - last 48 hr 06/30/22 06/30/22 06/30/22 14:48 14:48 16:35 WBC 8.6 RBC 4.41 L Hgb 11.9 L Hct 35.6 L MCV 80.7 MCH 27.0 MCHC 33.4 RDW 12.9 Plt Count 294 MPV 9.4 Immature Gran % (Auto) 2.2 H Neut % (Auto) 66.5 Lymph % (Auto) 19.6 L [place] % (Auto) 10.1 Eos % (Auto) 1.0 Baso % (Auto) 0.6 Lymph # (Auto) 1.7 [place] # (Auto) 0.9 Eos # (Auto) 0.1 Baso # (Auto) 0.1 Abs Immat Gran (auto) 0.19 H Absolute Neuts (auto) 5.8 Absolute Nucleated RBC 0.000 Nucleated RBC % (auto) 0.0 O2 Saturation 96.0 ABG pH at Pt Temp 7.49 H ABG pCO2 at Pt Temp 33 ABG pO2 at Pt Temp 77 L ABG HCO3 25 ABG Base Excess (Actual) 2.6 Sodium 142 Potassium 4.1 Chloride 106 Carbon Dioxide 24 Anion Gap 16 BUN 10 Creatinine 0.69 Estim Creat Clear Calc 176.9 Estimated GFR > 60 POC Glucose Random Glucose 75 Calcium 9.0 Magnesium 1.8 Total Bilirubin 0.5 Direct Bilirubin 0.2 AST 19 D ALT 15 Alkaline Phosphatase 67 Total Protein 6.7 Albumin 3.5 Lipase 5 L Salicylates < 5.0 L Urine Opiates Screen Urine Fentanyl Screen Acetaminophen < 1 Ur Barbiturates Screen Ur Phencyclidine Scrn Ur Amphetamines Screen U Benzodiazepines Scrn Urine Cocaine Screen U Marijuana (THC) Screen Ethyl Alcohol < 10 COVID-19 (GALDINO) COVID-19 Clin Com 06/30/22 06/30/22 07/01/22 21:43 22:14 06:14 WBC RBC Hgb Hct MCV MCH MCHC RDW Plt Count MPV Immature Gran % (Auto) Neut % (Auto) Lymph % (Auto) [place] % (Auto) Eos % (Auto) Baso % (Auto) Lymph # (Auto) [place] # (Auto) Eos # (Auto) Baso # (Auto) Abs Immat Gran (auto) Absolute Neuts (auto) Absolute Nucleated RBC Nucleated RBC % (auto) O2 Saturation ABG pH at Pt Temp ABG pCO2 at Pt Temp ABG pO2 at Pt Temp ABG HCO3 ABG Base Excess (Actual) Sodium Potassium Chloride Carbon Dioxide Anion Gap BUN Creatinine Estim Creat Clear Calc Estimated GFR POC Glucose 100 Random Glucose Calcium Magnesium Total Bilirubin Direct Bilirubin AST ALT Alkaline Phosphatase Total Protein Albumin Lipase Salicylates Urine Opiates Screen POSITIVE H Urine Fentanyl Screen POSITIVE H Acetaminophen Ur Barbiturates Screen Not Detected Ur Phencyclidine Scrn Not Detected Ur Amphetamines Screen Not Detected U Benzodiazepines Scrn Not Detected Urine Cocaine Screen POSITIVE H U Marijuana (THC) Screen Not Detected Ethyl Alcohol COVID-19 (GALDINO) Negative COVID-19 Clin Com See Note 07/01/22 07/01/22 07/01/22 07:24 13:57 14:03 WBC RBC Hgb Hct MCV MCH MCHC RDW Plt Count MPV Immature Gran % (Auto) Neut % (Auto) Lymph % (Auto) [place] % (Auto) Eos % (Auto) Baso % (Auto) Lymph # (Auto) [place] # (Auto) Eos # (Auto) Baso # (Auto) Abs Immat Gran (auto) Absolute Neuts (auto) Absolute Nucleated RBC Nucleated RBC % (auto) O2 Saturation ABG pH at Pt Temp ABG pCO2 at Pt Temp ABG pO2 at Pt Temp ABG HCO3 ABG Base Excess (Actual) Sodium Potassium Chloride Carbon Dioxide Anion Gap BUN Creatinine Estim Creat Clear Calc Estimated GFR POC Glucose 94 121 H 130 H Random Glucose Calcium Magnesium Total Bilirubin Direct Bilirubin AST ALT Alkaline Phosphatase Total Protein Albumin Lipase Salicylates Urine Opiates Screen Urine Fentanyl Screen Acetaminophen Ur Barbiturates Screen Ur Phencyclidine Scrn Ur Amphetamines Screen U Benzodiazepines Scrn Urine Cocaine Screen U Marijuana (THC) Screen Ethyl Alcohol COVID-19 (GALDINO) COVID-19 Clin Com Imaging Radiology Impressions: ITS Impressions Chest X-Ray 06/30/22 18:43 IMPRESSION: Unremarkable examination. Mental Status Exam Mental Status Exam Patient Appearance: Disheveled Patient Orientation: Person, Place, Time and Situation Level of Consciousness: Awake Patient Behavior: Guarded, Passive and Poor Eye Contact Affect Description: Flat Medications Medications Current Medications Albuterol/Ipratropium (Albuterol/Iprat 2.5/0.5mg 3 Ml Ampul.Neb) 3 ml INHALE RQ4H WHILE AWAKE [facility] Last Admin: 07/01/22 15:04 Dose: 3 ml Dextrose (Dextrose 50 % 25 Gm/50 Ml Syringe) 25 gm IVPUSH Q15M PRN; Protocol PRN Reason: per Hypoglycemia Standing Ord. Glucose (Glucose Gel 15 Gm Gel..Gram.) 15 gm PO Q15M PRN; Protocol PRN Reason: per Hypoglycemia Standing Ord. Dextrose/Sodium Chloride (D5ns) 1,000 mls @ 100 mls/hr IVCONT .Q10H [facility] Last Admin: 07/01/22 05:51 Dose: 100 mls/hr Insulin Human Lispro (Insulin Lispro 100 Unit/Ml 3 Ml Vial) 0 unit SUBCUT QIDACHS [facility]; Protocol Last Admin: 07/01/22 15:01 Dose: Not Given Magnesium Oxide (Magnesium Oxide 400 Mg Tablet) 400 mg PO BIDPC [facility] Last Admin: 07/01/22 09:34 Dose: 400 mg Naloxone HCl (Naloxone Hcl 0.4 Mg/Ml Vial) 0.4 mg IVPUSH ONCE PRN PRN Reason: overdose symptoms Sodium Chloride (0.9 % Sodium Chloride Flush 3 Ml Syringe) 3 ml IVFLUSH QSHIFT [facility] Last Admin: 07/01/22 09:35 Dose: Not Given Allergies Allergies Allergy/AdvReac Type Severity Reaction Status Date / Time Pertussis Vaccines Allergy Mild HIVES Verified 02/04/21 14:00 [PERTUSSIS VACCINES] Assessment & Plan Assessment & Plan (1) Opioid use disorder: Status: Acute Code(s): F11.90 - Opioid use, unspecified, uncomplicated Assessment and Plan: methadone 50mg x1 verify methadone dose in AM will continue to titrate as appropriate pending crisis eval I spent __30____ minutes with the patient and/or on the patient floor today, greater than?50% of which was spent counseling/coordinating care. [facility] Past Medical History Medical History (Updated 07/01/22 @ 16:24 by Trista Bolanos CNP) Anxiety Asthma Cocaine use with cocaine-induced disorder Depression Diabetes Diabetes IVDU (intravenous drug user) Major depressive disorder, recurrent severe without psychotic features Opiate dependence, continuous Family History Family History Father Heart disease Social History Social History Household Members: Family Household Members Other:: Mother and brother Housing: House Do you presently have visiting nurse or other home services: No Alcohol intake: former Patient Tobacco Use Status: Current everyday Tobacco user Tobacco use type: Cigarette Cigarette Packs Per Day: 1 Cigarettes Per Day: 20.0 Years Smoked: 16 Smoked in Last 30 Days: No e-Cigarette/Vaping Use: Currently Using Second Hand Smoke Exposure: Yes Substance Use Type: Crack/Cocaine and Opiates Substance Use Frequency: Chronic Longstanding Last Used Substance: Hours (ago) Advance Directives: No Advance Directives Information Provided: Yes Advance Directives Date on File: 01/30/21 service: No Current occupational status: unemployed Sexual orientation: Straight/Heterosexual
--- NOTE | 2022-07-01 15:44 | HO.PM.IMPN ---
Subjective Subjective Date of Service: 07/01/22 Interval History: severe depressed ,possible cocaine overdose /mixed fantnyl use Review of Systems Patient is more awake today could able to answer most questions denies any chest pain or shortness of breath or fever or chills or cough or phlegm. Physical Exam Vital Signs: Vital Signs: Last Vital Signs Temp 98.7 F 07/01/22 07:11 Pulse 71 07/01/22 15:05 Resp 16 07/01/22 15:05 BP 126/80 07/01/22 13:53 Pulse Ox 95 07/01/22 13:53 O2 Del Method 07/01/22 13:53 O2 Flow Rate 2 06/30/22 06:01 BMI result Body Mass Index 29.7 Appearance: Alert.? Oriented x3.? Eyes: Pupils equal, reactive , currently does not seem pinpoint.? Sclera nonicteric.? ENT: Pharynx normal.? Moist mucous membranes. cvs: rrr, [id number] , res: clear to auscultation ,no rhonchii or wheezing abd: no rebound or guarding ,nt, bs present. ext pulses present , no cyanosis. neuro: axo3 , nonfocal. Objective Data Active Medications Albuterol/Ipratropium (Albuterol/Iprat 2.5/0.5mg 3 Ml Ampul.Neb) 3 ml INHALE RQ4H WHILE AWAKE [facility] Last Admin: 07/01/22 15:04 Dose: 3 ml Documented By: ANNAMARIE Dextrose (Dextrose 50 % 25 Gm/50 Ml Syringe) 25 gm IVPUSH Q15M PRN; Protocol PRN Reason: per Hypoglycemia Standing Ord. Glucose (Glucose Gel 15 Gm Gel..Gram.) 15 gm PO Q15M PRN; Protocol PRN Reason: per Hypoglycemia Standing Ord. Dextrose/Sodium Chloride (D5ns) 1,000 mls @ 100 mls/hr IVCONT .Q10H [facility] Last Admin: 07/01/22 05:51 Dose: 100 mls/hr Documented By: DUGLAS Insulin Human Lispro (Insulin Lispro 100 Unit/Ml 3 Ml Vial) 0 unit SUBCUT QIDACHS [facility]; Protocol Last Admin: 07/01/22 15:01 Dose: Not Given Documented By: DAHIANA Non-Admin Reason: No Insulin Coverage Magnesium Oxide (Magnesium Oxide 400 Mg Tablet) 400 mg PO BIDPC [facility] Last Admin: 07/01/22 09:34 Dose: 400 mg Documented By: DAHIANA Naloxone HCl (Naloxone Hcl 0.4 Mg/Ml Vial) 0.4 mg IVPUSH ONCE PRN PRN Reason: overdose symptoms Sodium Chloride (0.9 % Sodium Chloride Flush 3 Ml Syringe) 3 ml IVFLUSH QSHIFT [facility] Last Admin: 07/01/22 09:35 Dose: Not Given Documented By: DAHIANA Non-Admin Reason: IV Running Labs CBC & Chem 7: 06/30/22 14:48 06/30/22 14:48 Labs: Laboratory Results - last 24 hr 06/30/22 06/30/22 06/30/22 16:35 21:43 22:14 O2 Saturation 96.0 ABG pH at Pt Temp 7.49 H ABG pCO2 at Pt Temp 33 ABG pO2 at Pt Temp 77 L ABG HCO3 25 ABG Base Excess (Actual) 2.6 POC Glucose 100 Urine Opiates Screen POSITIVE H Urine Fentanyl Screen POSITIVE H Ur Barbiturates Screen Not Detected Ur Phencyclidine Scrn Not Detected Ur Amphetamines Screen Not Detected U Benzodiazepines Scrn Not Detected Urine Cocaine Screen POSITIVE H U Marijuana (THC) Screen Not Detected COVID-19 (GALDINO) COVID-19 Clin Com 07/01/22 07/01/22 07/01/22 06:14 07:24 13:57 O2 Saturation ABG pH at Pt Temp ABG pCO2 at Pt Temp ABG pO2 at Pt Temp ABG HCO3 ABG Base Excess (Actual) POC Glucose 94 121 H Urine Opiates Screen Urine Fentanyl Screen Ur Barbiturates Screen Ur Phencyclidine Scrn Ur Amphetamines Screen U Benzodiazepines Scrn Urine Cocaine Screen U Marijuana (THC) Screen COVID-19 (GALDINO) Negative COVID-19 Clin Com See Note 07/01/22 14:03 O2 Saturation ABG pH at Pt Temp ABG pCO2 at Pt Temp ABG pO2 at Pt Temp ABG HCO3 ABG Base Excess (Actual) POC Glucose 130 H Urine Opiates Screen Urine Fentanyl Screen Ur Barbiturates Screen Ur Phencyclidine Scrn Ur Amphetamines Screen U Benzodiazepines Scrn Urine Cocaine Screen U Marijuana (THC) Screen COVID-19 (GALDINO) COVID-19 Clin Com Assessment and Plan (1) Diabetes: Status: Acute (2) Drug overdose: Status: Acute (3) Depression: Status: Acute (4) Suicidal ideation: Status: Acute Plan 32-year-old male with a history anxiety, depression diabetes, asthma, IVDU? on methadone,? Severely depressed/suicidal,? came with? possible opioid overdose . 1. opioid overdose:ua :positive for opoids , coacaine /fentanyl awake alert ekg and cxr seemsfine ?neuro checks, monitor respiratory status, so far is sats are 97% on room air, monitor tele. 2. ? Suicidal/severely depressed: ?sitter, and care team evaluation ?patient will need BHn clearance before discharge in addition added psych consult for med management -patient may need to go to psych . 3. dm:100-120 diabeteic diet dc ivf and bo and give voiding trial fs with adjusted coverage, no coverage ? no coverage below 200 mg/dL. 4. asthma: no sob nebs added dvt prophylax: mech devices ,ambulation patient need bhn clearence, also psych input for both SI and pscyh med management. Quality Stroke Does the patient have a stroke diagnosis?: No VTE Prior VTE?: No VTE Risk Level:: Medical - moderate - high VTE Device Contraindication: N/A - Device Ordered VTE Drug Contraindication: N/A - Med Ordered
[2022-07-01 17:02] LABS: Glucose, Whole Blood 158 mg/dL (60-115)
[2022-07-01] MEDS: methADONE HCl 20 MG/2 ML ORAL.CONC 50 MG PO (17:49)
--- NOTE | 2022-07-01 18:16 | P.CNPS_ITS ---
History of Present Illness Date of Service: 07/01/2022 Chief Complaint: ? opoids overdose Reason for Consult: dispo, meds Requesting physician: Kendall Kimball Discussed with referring provider: Yes Sources of Information: patient interviewed and chart reviewed HPI Narrative: Andrey is a 32 y.o. male who carries a dx of MDD severe, recurrent and IV opioid use disorder. He has a hx of anxiety, depression, insulin dependent diabetes, and asthma. Hx of MAT on methadone. He arrived to [facility] ED on 06/29/22 after being found in his house by his family after an accidental overdose on heroin, was given 20 mg intranasal narcan at home, initially lethargic and given narcan x 2 in the ED. Pt recently admitted to in 02/24/22 to 03/01/22 for depression, SI, and substance use. He was discharged on Seroquel 150 mg HS, remeron 7.5 mg HS, klonopin 1 mg TID, Prozac 40 mg QAM, gabapentin 900 mg HS, 300 mg QAM and Qnoon, clonidine 0.1 mg TID, and methadone 115 mg daily. He remained med adherent and stable until he relapsed again in 05/2022 cocaine and heroin again in May. Pt?s mother reported concern that he is severely depressed and has suicidal ideation.? I spoke with pt. He says he is doing a little better now that he is in the hospital. Denies that his OD was intentional/ suicide attempt. Says he relapsed a month or two ago, however denies any specific triggers for his relapse. States its been alright at home. Continues to endorse passive SI, says he wants to got to sleep and not wake up. He is voluntary for an inpatient psych admission for SI and med stabilization. Continues to feel depressed. Has been non-adherent on his psych meds and methadone. Sleep is pretty shitty, energy is low. His anxiety is pretty high. Denies any recent self harm or suicide attempts. Past Psychiatric History: See above history of hospitalization at 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 His mother is supportive his biological father this September Social History: Patient living with his mother currently unemployed history of chronic substance use he has been in and out of treatment he had been on probation. He has spent time at the [facility] ED. 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 He does have a family support system Trauma History: Overdose attempts with Narcan sudden of nasima Diagn[facility] Vital Signs (24Hr): Vital Signs - 24 hr 06/30/22 19:27 06/30/22 18:20 06/30/22 23:59 Temperature 98.7 F 97.4 F 98.4 F Pulse Rate 55 58 53 Respiratory Rate 15 15 16 Blood Pressure 125/77 121/77 124/73 Pulse Oximetry 97 98 95 Oxygen Delivery Method Room Air Room Air Room Air 07/01/22 03:36 07/01/22 07:11 07/01/22 07:31 Temperature 98.7 F Pulse Rate 68 61 58 Respiratory Rate 16 16 Blood Pressure 129/85 137/78 Pulse Oximetry 97 96 Oxygen Delivery Method Room Air Room Air 07/01/22 10:09 07/01/22 11:16 07/01/22 13:53 Temperature Pulse Rate 81 70 69 Respiratory Rate 16 16 14 Blood Pressure 124/84 126/80 Pulse Oximetry 95 95 Oxygen Delivery Method Room Air Room Air 07/01/22 15:05 07/01/22 16:00 Temperature 97.8 F Pulse Rate 71 67 Respiratory Rate 16 16 Blood Pressure 119/70 Pulse Oximetry 95 Oxygen Delivery Method Room Air BMI result Body Mass Index 29.7 Labs Results: 06/30/22 14:48 06/30/22 14:48 Labs: Laboratory Results - last 48 hr 06/30/22 06/30/22 06/30/22 14:48 14:48 16:35 WBC 8.6 RBC 4.41 L Hgb 11.9 L Hct 35.6 L MCV 80.7 MCH 27.0 MCHC 33.4 RDW 12.9 Plt Count 294 MPV 9.4 Immature Gran % (Auto) 2.2 H Neut % (Auto) 66.5 Lymph % (Auto) 19.6 L [place] % (Auto) 10.1 Eos % (Auto) 1.0 Baso % (Auto) 0.6 Lymph # (Auto) 1.7 [place] # (Auto) 0.9 Eos # (Auto) 0.1 Baso # (Auto) 0.1 Abs Immat Gran (auto) 0.19 H Absolute Neuts (auto) 5.8 Absolute Nucleated RBC 0.000 Nucleated RBC % (auto) 0.0 O2 Saturation 96.0 ABG pH at Pt Temp 7.49 H ABG pCO2 at Pt Temp 33 ABG pO2 at Pt Temp 77 L ABG HCO3 25 ABG Base Excess (Actual) 2.6 Sodium 142 Potassium 4.1 Chloride 106 Carbon Dioxide 24 Anion Gap 16 BUN 10 Creatinine 0.69 Estim Creat Clear Calc 176.9 Estimated GFR > 60 POC Glucose Random Glucose 75 Calcium 9.0 Magnesium 1.8 Total Bilirubin 0.5 Direct Bilirubin 0.2 AST 19 D ALT 15 Alkaline Phosphatase 67 Total Protein 6.7 Albumin 3.5 Lipase 5 L Salicylates < 5.0 L Urine Opiates Screen Urine Fentanyl Screen Acetaminophen < 1 Ur Barbiturates Screen Ur Phencyclidine Scrn Ur Amphetamines Screen U Benzodiazepines Scrn Urine Cocaine Screen U Marijuana (THC) Screen Ethyl Alcohol < 10 COVID-19 (GALDINO) COVID-19 Clin Com 06/30/22 06/30/22 07/01/22 21:43 22:14 06:14 WBC RBC Hgb Hct MCV MCH MCHC RDW Plt Count MPV Immature Gran % (Auto) Neut % (Auto) Lymph % (Auto) [place] % (Auto) Eos % (Auto) Baso % (Auto) Lymph # (Auto) [place] # (Auto) Eos # (Auto) Baso # (Auto) Abs Immat Gran (auto) Absolute Neuts (auto) Absolute Nucleated RBC Nucleated RBC % (auto) O2 Saturation ABG pH at Pt Temp ABG pCO2 at Pt Temp ABG pO2 at Pt Temp ABG HCO3 ABG Base Excess (Actual) Sodium Potassium Chloride Carbon Dioxide Anion Gap BUN Creatinine Estim Creat Clear Calc Estimated GFR POC Glucose 100 Random Glucose Calcium Magnesium Total Bilirubin Direct Bilirubin AST ALT Alkaline Phosphatase Total Protein Albumin Lipase Salicylates Urine Opiates Screen POSITIVE H Urine Fentanyl Screen POSITIVE H Acetaminophen Ur Barbiturates Screen Not Detected Ur Phencyclidine Scrn Not Detected Ur Amphetamines Screen Not Detected U Benzodiazepines Scrn Not Detected Urine Cocaine Screen POSITIVE H U Marijuana (THC) Screen Not Detected Ethyl Alcohol COVID-19 (GALDINO) Negative COVID-19 [employer] Com See Note 07/01/22 07/01/22 07/01/22 07:24 13:57 14:03 WBC RBC Hgb Hct MCV MCH MCHC RDW Plt Count MPV Immature Gran % (Auto) Neut % (Auto) Lymph % (Auto) [place] % (Auto) Eos % (Auto) Baso % (Auto) Lymph # (Auto) [place] # (Auto) Eos # (Auto) Baso # (Auto) Abs Immat Gran (auto) Absolute Neuts (auto) Absolute Nucleated RBC Nucleated RBC % (auto) O2 Saturation ABG pH at Pt Temp ABG pCO2 at Pt Temp ABG pO2 at Pt Temp ABG HCO3 ABG Base Excess (Actual) Sodium Potassium Chloride Carbon Dioxide Anion Gap BUN Creatinine Estim Creat Clear Calc Estimated GFR POC Glucose 94 121 H 130 H Random Glucose Calcium Magnesium Total Bilirubin Direct Bilirubin AST ALT Alkaline Phosphatase Total Protein Albumin Lipase Salicylates Urine Opiates Screen Urine Fentanyl Screen Acetaminophen Ur Barbiturates Screen Ur Phencyclidine Scrn Ur Amphetamines Screen U Benzodiazepines Scrn Urine Cocaine Screen U Marijuana (THC) Screen Ethyl Alcohol COVID-19 (GALDINO) COVID-[employer]bac 07/01/22 16:58 WBC RBC Hgb Hct MCV MCH MCHC RDW Plt Count MPV Immature Gran % (Auto) Neut % (Auto) Lymph % (Auto) [place] % (Auto) Eos % (Auto) Baso % (Auto) Lymph # (Auto) [place] # (Auto) Eos # (Auto) Baso # (Auto) Abs Immat Gran (auto) Absolute Neuts (auto) Absolute Nucleated RBC Nucleated RBC % (auto) O2 Saturation ABG pH at Pt Temp ABG pCO2 at Pt Temp ABG pO2 at Pt Temp ABG HCO3 ABG Base Excess (Actual) Sodium Potassium Chloride Carbon Dioxide Anion Gap BUN Creatinine Estim Creat Clear Calc Estimated GFR POC Glucose 158 H Random Glucose Calcium Magnesium Total Bilirubin Direct Bilirubin AST ALT Alkaline Phosphatase Total Protein Albumin Lipase Salicylates Urine Opiates Screen Urine Fentanyl Screen Acetaminophen Ur Barbiturates Screen Ur Phencyclidine Scrn Ur Amphetamines Screen U Benzodiazepines Scrn Urine Cocaine Screen U Marijuana (THC) Screen Ethyl Alcohol COVID-19 (GALDINO) COVID-19 [employer] Com Imaging Radiology Impressions: ITS Impressions Chest X-Ray 06/30/22 18:43 IMPRESSION: Unremarkable examination. Mental Status Exam Mental Status Exam Narrative: A&O. Hospital attire, unkempt, long hair in pony tail. Poor eye contact, inattentive. No Tics or Tremors. No abnormal involuntary movements. Calm, cooperative, engaged. Non-pressured speech, spontaneous with regular rate and rhythm, normal volume and prosody. No prolonged speech latency or dysarthria. Mood is ?depressed,? affect is blunted. Endorses passive SI. Denies SIB/HI upon inquiry. Denies A/VH or delusional thought content. Thoughts are coherent, organized. No known cognitive or memory impairment. Insight/ Judgment limited. Medications Medications Current Medications Albuterol/Ipratropium (Albuterol/Iprat 2.5/0.5mg 3 Ml Ampul.Neb) 3 ml INHALE RQ4H WHILE AWAKE [facility] Last Admin: 07/01/22 15:04 Dose: 3 ml Dextrose (Dextrose 50 % 25 Gm/50 Ml Syringe) 25 gm IVPUSH Q15M PRN; Protocol PRN Reason: per Hypoglycemia Standing Ord. Glucose (Glucose Gel 15 Gm Gel..Gram.) 15 gm PO Q15M PRN; Protocol PRN Reason: per Hypoglycemia Standing Ord. Dextrose/Sodium Chloride (D5ns) 1,000 mls @ 100 mls/hr IVCONT .Q10H [facility] Last Admin: 07/01/22 05:51 Dose: 100 mls/hr Insulin Human Lispro (Insulin Lispro 100 Unit/Ml 3 Ml Vial) 0 unit SUBCUT QIDACHS [facility]; Protocol Last Admin: 07/01/22 17:35 Dose: Not Given Magnesium Oxide (Magnesium Oxide 400 Mg Tablet) 400 mg PO BIDPC [facility] Last Admin: 07/01/22 17:49 Dose: 400 mg Naloxone HCl (Naloxone Hcl 0.4 Mg/Ml Vial) 0.4 mg IVPUSH ONCE PRN PRN Reason: overdose symptoms Sodium Chloride (0.9 % Sodium Chloride Flush 3 Ml Syringe) 3 ml IVFLUSH QSHIFT [facility] Last Admin: 07/01/22 17:36 Dose: Not Given Allergies Allergies Allergy/AdvReac Type Severity Reaction Status Date / Time Pertussis Vaccines Allergy Mild HIVES Verified 02/04/21 14:00 [PERTUSSIS VACCINES] Assessment & Plan Assessment & Plan (1) Major depressive disorder, recurrent severe without psychotic features: Status: Acute Code(s): F33.2 - Major depressive disorder, recurrent severe without psychotic features (2) Opiate dependence, continuous: Status: Acute Code(s): F11.20 - Opioid dependence, uncomplicated Plan Andrey is a 32-year-old male who has a long history of recurrent depression with a history of 1 prior overdose attempt. Recently admitted to 01/2022 for depression, SI, and continuous relapses on IV heroin and cocaine. Has multiple traumas i.e. girlfriend, father, and sponsor all .?He is isolative, staying at his mother's house, not working. Hx of MAT, methadone. Non-adherent on psych meds or methadone. Not engaged in OP psych treatment.?Hx of prev psychiatric hospitalizations. Will restart seroquel at 100 mg HS and remeron 7.5 mg HS for sleep. Pt is voluntary for inpatient psych admission, meets criteria due to SI and risk of harm to self. -Patient is currently medically cleared. -Patient cannot leave AGAINST MEDICAL ADVICE. -Care Team evaluation for bed search. Patient will be a CV. initial treatments ordered collateral history needed I spent minutes with the patient and/or on the patient floor today, greater than?50% of which was spent counseling/coordinating care. Patient educated on: medication risk/benefits and therapeutic strategies
--- NOTE | 2022-07-01 19:07 | PC.NURSE ---
Pt sleeping at this time, respirations normal.
--- NOTE | 2022-07-01 20:47 | PC.NURSE ---
Care team at bedside.
[2022-07-01 22:08] LABS: Glucose, Whole Blood 125 mg/dL (60-115)
[2022-07-01] MEDS: QUEtiapine Fumarate 100 MG TABLET PO (22:10)
[2022-07-01] MEDS: Mirtazapine 7.5 MG TABLET PO (22:10)
--- NOTE | 2022-07-01 23:10 | PC.NURSE ---
Pt sleeping at this time, respirations regular.
[2022-07-02] MEDS: Dextrose 5 % and 0.9 % NaCl 1,000 ML 100 ML IVCONT (00:40)
[2022-07-02 00:42] VITALS: BP 116/76; PULSE 59; RESP 16; O2SAT 97
--- NOTE | 2022-07-02 00:43 | PC.NURSE ---
Pt sleeping at this time respirations regular.
--- NOTE | 2022-07-02 02:17 | PC.NURSE ---
Pt sleeping at this time respirations regular.
--- NOTE | 2022-07-02 03:10 | PC.NURSE ---
Pt was able void urine unassisted.
--- NOTE | 2022-07-02 04:05 | PC.NURSE ---
Pt sleeping at this time respirations regular.
[2022-07-02 06:07] VITALS: BP 135/87; PULSE 67; RESP 14; TEMP 36.7; O2SAT 100
--- NOTE | 2022-07-02 06:27 | PC.NURSE ---
Pt sleeping at this time respirations regular.
[2022-07-02 07:21] LABS: Glucose, Whole Blood 133 mg/dL (60-115)
[2022-07-02 07:27] VITALS: BP 121/80; PULSE 57; RESP 14; TEMP 36.7; O2SAT 98
[2022-07-02] MEDS: Albuterol/Iprat 2.5/0.5MG 3 ML AMPUL.NEB INHALE (08:23)
[2022-07-02 08:25] VITALS: PULSE 62; RESP 18; O2SAT 98
[2022-07-02 09:09] VITALS: BP 124/82; PULSE 71; RESP 15; TEMP 36.6; O2SAT 95
--- NOTE | 2022-07-02 09:30 | PC.NURSE ---
pt is a//o x 4 no sob/javan noted speaks in full sentences. lungs sightly diminished. heart sound regular. abd soft and non-tender. bx + x 4 quads. pt aware of plan of care. pt states that he is slightly si+ . md aware.
[2022-07-02] MEDS: 0.9 % Sodium Chloride Flush 3 ML SYRINGE IVFLUSH (09:34)
--- NOTE | 2022-07-02 09:51 | PC.NURSE ---
pt seen by dr. rodriges, [id number] saline d/c'd per dr. rodriges. pt aware of plan of care. pt amb (i) gait steady to bathroom and btb, pt washed up in bathroom, complete bed change. pt changed into clean hosp attire.
--- NOTE | 2022-07-02 09:51 | MHC.RECOVRN ---
This database report writer completed Methadone verification, faxed to pharmacy. This database report writer met w/ pt, pt alert, sitting in bed. Pt visibly diaphoretic, reports nausea/vomiting, restless legs, pt states I feel like shit, if i'm placed [place], i'm just going to go home and leave . This database report writer and pt discussed methadone, pt reports takes as prescribed Methadone 135mg daily, pt does receive take home bottles, pt reports no intermittent use of Methadone and states takes it daily,consistently. Provider MQ aware, to order Methadone dose.
--- NOTE | 2022-07-02 10:34 | HE.PHANOTE ---
Methadone Verification Done with [facility] [phone] with Obed Hoep RN. Last dose was 135 mg on what appears to be 06/29.
[2022-07-02 10:52] VITALS: BP 133/82; PULSE 65; RESP 16; TEMP 37; O2SAT 96
[2022-07-02] MEDS: methADONE HCl 20 MG/2 ML ORAL.CONC 135 MG PO (11:10)
[2022-07-02 12:45] LABS: Glucose, Whole Blood 124 mg/dL (60-115)
--- NOTE | 2022-07-02 12:45 | ECG_ITS ---
Test Reason : psych meds Blood Pressure : / mmHG Vent. Rate : 055 BPM Atrial Rate : 055 BPM P-R Int : 152 ms QRS Dur : 080 ms QT Int : 454 ms P-R-T Axes : 039 003 035 degrees QTc Int : 434 ms Sinus bradycardia with sinus arrhythmia Otherwise normal ECG When compared with ECG of 30-JUN-2022 18:27, QT has shortened Referred By: Rod Alvarado Electronically Signed By:Jameson Bellamy
--- NOTE | 2022-07-02 13:35 | PM.DS ---
DS: Providers Provider Date of Service: 07/02/22 Date of admission: 06/30/22 18:18 Primary care physician: Unknown Physician Consults: 06/29/22 23:15 Consult to Care Team Routine Comment: Reason for consultation: sude 06/30/22 18:31 Consult for Sitter Routine Reason for consultation: severe depressed /SI Has provider been notified: No 06/30/22 19:10 BHN [Consult to Crisis] Stat Reason for consultation: SI/DEPRESSED Has provider been notified: No Consult to Care Team Routine Comment: Reason for consultation: DEPRESSED/ SUICIDAL 07/01/22 08:00 Addiction Medicine Routine Consulting Provider: Addiction Covering Reason for consultation: possible opoiod overdose Has provider been notified: No 07/01/22 08:05 Consult to Psychiatry Routine Consulting Provider: Psych Covering Reason for consultation: possible opoid overdose /on multiple psych meds Has provider been notified: No 07/01/22 18:28 Consult to Care Team Stat Comment: Reason for consultation: pt medically cleared, dispo volunatry for inpt psych DS: Diagnosis Discharge Diagnosis (1) Major depressive disorder, recurrent severe without psychotic features: Status: Acute (2) Opiate dependence, continuous: Status: Acute (3) Suicidal ideation: Status: Acute (4) Drug overdose: Status: Acute DS: Summary Hospital Course Hospital Course: 32-year-old male with a history anxiety, depression diabetes, asthma, IVDU? on methadone?: ? patient came to the hospital because of drug overdose- initially patient was lethargic- in ED was given Narcan x2 in addition to that he received 20 mg of intranasal Narcan by EMS-? patient is more awake late in the evening- so called for opioid overdose admission. ? history taken by ED physician and patient's mother, patient could add only if little: ?as per patient mother patient started using cocaine / heroin again in May- last night dog was scratching his door so they found? patienton the floor-? Patient family also found needles and drugs on the floor- as per his mother's? he has used cocaine / heroin but she does not know how much amount he used. ? mother Denies any other drug use. ?subsequently received as above Narcan? by EMS- as per the patient he was vomiting afterwards and he does not remember what happened to him- but still somewhat sleepy ,could not answer all the questions. ?his mother added also that he is severely depressed and has mentioned multiple times use suicidal thoughts, she is concerned that he was planning to do? suicide this time. ? Patient answers only few questions could able to tell no chest pain or shortness of breath or abdominal pain or nausea vomiting currently ?follow simple commands ?discussed with the ED in detail they still did not send urine toxicology- talked to the staff in detail to do straight cath to send the urine for toxicology.. ?labs reviewed: ?CBC, CMP, ABG seems fine ?chest x-ray and EKG seems fine Hospital course: Patient was admitted for opioid overdose, also has so will depressed and suicidal ideation: Patient was initially treated with Narcan seems to be improved now mental status seems to be normal, is symptomatic. Seen by Rimma teran and psych: Patient will need inpatient management for severe depression. Psych medications are at hold because of opioid overdose further use as per psych. Also learning specialist needs to see because of methadone. Assessment and plan coordination time spent, 50 minute. Time Spent with Patient Time attestation: Total time spent providing and/or coordinating discharge services: Discharge coordination time: Greater than 30 minutes Quality: Safe Use of Opioids Does Pt have an Active Cancer Diagnosis on the Problem List?: No Quality: Stroke Does the patient have a stroke diagnosis?: No Physical Exam Vital Signs: Vital Signs: Last Vital Signs Temp 98.6 F 07/02/22 10:52 Pulse 65 07/02/22 10:52 Resp 16 07/02/22 10:52 BP 133/82 07/02/22 10:52 Pulse Ox 96 07/02/22 10:52 O2 Del Method 07/02/22 10:52 O2 Flow Rate 2 06/30/22 06:01 BMI result Body Mass Index 29.7 ?Appearance: Alert.? Oriented x3.? Eyes: Pupils equal, reactive , currently does not seem pinpoint.? Sclera nonicteric.? ENT: Pharynx normal.? Moist mucous membranes. cvs: rrr, [id number] . res: clear to auscultation ,no rhonchii or wheezing abd: no rebound or guarding ,nt, bs present. ext pulses present , no cyanosis. neuro: axo3 , nonfocal. DS: Data Data Completed and Pending Labs on day of discharge: Laboratory Results - last 24 hr 07/01/22 07/01/2207/01/22 13:57 14:03 16:58 POC Glucose 121 H 130 H 158 H 07/01/22 07/02/22 07/02/22 22:04 07:07 12:40 POC Glucose 125 H 133 H 124 H Imaging Chest x-ray: Radiologist's impression: ITS Impressions Chest X-Ray 06/30/22 18:43 IMPRESSION: Unremarkable examination. Discharge Plan Discharge Patient Disposition: Xfer Psychiatric Hosp Discharge Diagnosis: drug overdose ,opoid overdose Referrals: Physician,Unknown J [Primary Care Provider] - 1 Week Discharge Medications: Continued metformin 500 mg tablet 1 tab PO BID methadone [Methadone Intensol] 10 mg/mL Concentrate 135 mg PO DAILY albuterol sulfate [ProAir HFA] 90 mcg/actuation HFA aerosol inhaler 2 puff inhalation QID PRN (Reason: wheezing) fluticasone propionate [Flovent HFA] 110 mcg/actuation HFA aerosol inhaler 1 puff inhalation BID Held fluoxetine 40 mg capsule 1 cap PO DAILY Hold Instructions: Resume on 07/05/22. gabapentin 600 mg tablet 1 tab PO TID Hold Instructions: Resume on 07/05/22. clonazepam 1 mg tablet 1 tab PO TID Hold Instructions: Resume on 07/05/22. gabapentin 300 mg capsule 1 cap PO BEDTIME Hold Instructions: Resume on 07/05/22. Rx Instructions: takes with 600 mg dose at bedtime quetiapine 100 mg tablet 1 - 2 tab PO BEDTIME PRN (Reason: Anxiety) Hold Instructions: Resume on 07/05/22. mirtazapine 7.5 mg Tablet 7.5 mg PO BEDTIME Qty: 30 0RF Hold Instructions: Resume on 07/05/22. clonidine HCl 0.1 mg tablet 0.1 mg PO TID Qty: 90 0RF Hold Instructions: Resume on 07/05/22. Discharge Orders: Discharge Order (Routine); Ordered 07/02/22 Ordered By: Kendall Kimball Diet: Advance to usual diet Activity on Discharge: As tolerated Stand Alone Forms: Patient Portal Discharge page Care Plan Goals: Patient was admitted for opioid overdose, also has so will depressed and suicidal ideation: Patient was initially treated with Narcan seems to be improved now mental status seems to be normal, is symptomatic. Seen by Rimma an and psych: Patient will need inpatient management for severe depression. Psych medications are at hold because of opioid overdose further use as per psych. Also learning specialist needs to see because of methadone. Health Concerns: As above. Plan of Treatment: As above.
--- NOTE | 2022-07-02 13:37 | PC.NURSE ---
rn too rn report given. pt aware of plan of care
== END 2022-07-02 15:50 ==
LOC: HO.ED 06-30 14:40 → HO.EDOVER 06-30 18:25
PROVIDERS: Physician Assistant; Admitting Provider Internal Medicine; Emergency Provider Emergency Medicine; PCP Internal Medicine; Visit Provider Internal Medicine
DX: T40.1X1A Poisoning by heroin, accidental (unintentional), initial encounter (principal); T40.5X1A Poisoning by cocaine, accidental (unintentional), initial encounter; R53.83 Other fatigue; Y92.013 Bedroom of single-family (private) house as the place of occurrence of the external cause; F11.20 Opioid dependence, uncomplicated; F14.10 Cocaine abuse, uncomplicated; R45.851 Suicidal ideations; F33.2 Major depressive disorder, recurrent severe without psychotic features; Z20.822 Contact with and (suspected) exposure to COVID-19; F41.9 Anxiety disorder, unspecified; E11.9 Type 2 diabetes mellitus without complications; J45.909 Unspecified asthma, uncomplicated; F17.210 Nicotine dependence, cigarettes, uncomplicated; F17.290 Nicotine dependence, other tobacco product, uncomplicated; Z79.899 Other long term (current) drug therapy; Z79.84 Long term (current) use of oral hypoglycemic drugs
CPT/HCPCS: 36415; 51701; 71045; 80048; 80076; 80143; 80179; 80307; 82077; 82803; 82947; 83690; 83735; 85025; 87635; 93005; 94640; 96361; 96365; 96366; 96375; 96376; 99219; 99285

== ENCOUNTER 2022-07-02 18:29 | Inpatient (IN) | payer OTHER, SELFPAY ==
[2022-07-02 21:03] LABS: Glucose, Whole Blood 74 mg/dL (60-115)
[2022-07-02] MEDS: Mirtazapine 7.5 MG TABLET PO (21:05)
[2022-07-02] MEDS: hydrOXYzine HCL 25 MG TABLET PO (21:06)
[2022-07-02] MEDS: QUEtiapine Fumarate 100 MG TABLET PO (21:06)
[2022-07-02] MEDS: Acetaminophen 325 MG TABLET 650 MG PO (21:06)
--- NOTE | 2022-07-03 01:17 | PC.ADMIT ---
47 y/o Bilingual male self presented to [facility] ED requesting a psychiatric evaluation with complaint of paranoia, SI and declining mental health. States he has been non compliant with his medications. Recent discharge from [facility] last week. States that the team at [facility] felt he was leaving too early and now he agrees that he did leave too early. He has a history of medication non compliance substance abuse, and suicide attempts. He has no day structure and limited family supports. He arrived from the ED via wheelchair. Upon arrival to he was diaphoretic complaining of a headache and light sensitive. He initially went to his room and slept. He did later agree to participate in the admission process.
--- NOTE | 2022-07-03 01:34 | PC.ADMIT ---
18:00 32 y/o Emirati speaking male seen by N crisis due to referral from [facility]. Andrey was broug[place] [facility] [place] secondary to intentional overdose. He was given Narcan 4ml X4 by brother. He reported hopelessness and quoted I feel like I'm worth shit. He reports ongoing SI plan and intent to overdose and kill himself. He arrived on M5 via wheelchair. Initially on arrival he complained of a headache, light sensitivity and he was diaphoretic. He went immediately to bed. He later agreed to participate in the admission process.
--- NOTE | 2022-07-03 07:27 | P.HPPS_ITS ---
HPI Date of Service: 07/03/22 Chief Complaint: ? opioids overdose Sources of Information: patient interviewed, chart reviewed and crisis/core team assessment reviewed HPI Subjective Notes: Conditional Voluntary Healthcare Proxy: No Guardianship: No Medical Problems Affecting Mental Status: No Narrative: Pt reports he had relapse when he did cocaine laced with fenatanyl -, he is on methadone and mutlptle psychiatric medications - confirmed on the following by stop and chiop [place] 06/29Gabapentin 600mg tid and addition 300mg qhs 06/22clonazepam 1mg tid many years pharamcy reports 05/03 90 day clonidine 0.1mg tid 04/23 90 day of seroquel 100mg 1-2 qhs; mirtazapine 7.5mg, fluoxetine 40mg, Past Psychiatric History: See above history of hospitalization at [facility] and [facility] Medical Evaluation Reviewed: Yes [facility] Medical History (Updated 07/01/22 @ 23:19 by Laura Hui, DEISI) Anxiety Asthma Cocaine use with cocaine-induced disorder Depression Diabetes Diabetes IVDU (intravenous drug user) Major depressive disorder, recurrent severe without psychotic features Opiate dependence, continuous Narrative: ? OD denied by patient though report was Narcane had to be repeated multiple times- likely due to fentanyl Out patient psychiatry with Flo Strickland- private prescriber [facility] therapist- Family History: Patient lives with his mother he is currently unemployed had done [employer] in the past. His mother is supportive his biological father this September Social History: Patient living with his mother currently unemployed history of chronic substance use he has been in and out of treatment he had been on probation. He has spent time at the [place] [facility]. 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 He does have a family support system Substance History: on methadone- hx of relapse with cocaine/fenatynl resulting in od Trauma History: Overdose attempts with Narcan sudden of fiancee Diagnostics Labs Labs: Laboratory Results - last 48 hr 07/02/22 21:00 POC Glucose 74 refused lab draws today 07/03 Meds/Allergies Meds Home Medications Medication Instructions Recorded Confirmed Type clonazepam 1 mg tablet 1 tab PO TID 01/30/21 06/30/22 History fluoxetine 40 mg capsule 1 cap PO DAILY 01/30/21 06/30/22 History gabapentin 300 mg capsule 1 cap PO BEDTIME 01/30/21 06/30/22 History gabapentin 600 mg tablet 1 tab PO TID 01/30/21 06/30/22 History metformin 500 mg tablet 1 tab PO BID 01/30/21 06/30/22 History methadone 10 mg/mL oral 135 mg PO DAILY 01/30/21 05/26/22 History concentrate (Methadone Intensol) albuterol sulfate 90 mcg/actuation 2 puff inhalation QID PRN wheezing 02/22/22 06/30/22 History aerosol inhaler (ProAir HFA) fluticasone propionate 110 1 puff inhalation BID 02/22/22 06/30/22 History mcg/actuation HFA aerosol inhaler (Flovent HFA) quetiapine 100 mg tablet 1 - 2 tab PO BEDTIME PRN Anxiety 06/30/22 06/30/22 History Allergies Allergies Allergy/AdvReac Type Severity Reaction Status Date / Time Pertussis Vaccines Allergy Mild HIVES Verified 02/04/21 14:00 [PERTUSSIS VACCINES] Mental Status Exam Mental Status Exam Narrative: arm over head, minimally cooperative with interview Patient Appearance: Fatigued and Disheveled Patient Orientation: Person, Place, Time and Situation Level of Consciousness: Sedated Patient Behavior: Guarded, Passive and Resistive to Care Mood Description: Withdrawn Affect Description: Blunted Patient Cognition Impaired: No Ability to Follow Directions: Fair Speech Pattern: Mumbled Hallucinations: None Delusions: Not Present Thought Process: Goal Oriented Thought Content: positive for Intact Depressive Symptoms: Hopelessness and Isolating-Friends/Family Abnormal Motor Activity Signs and Symptoms: Psychomotor Retardation Judgement: Poor Assessment & Plan Assessment & Plan (1) Opiate dependence, continuous: Status: Acute Code(s): F11.20 - Opioid dependence, uncomplicated Assessment and Plan: complicated by being on benzodiazpines for years (2) Drug overdose: Status: Acute Code(s): T50.901A - Poisoning by unspecified drugs, medicaments and biological substances, accidental (unintentional), initial encounter Assessment and Plan: likely due to methadone/fentanyl/clonazepam/gabapentin/clonidine combo (3) Major depressive disorder, recurrent severe without psychotic features: Status: Acute Code(s): F33.2 - Major depressive disorder, recurrent severe without psychotic features Assessment and Plan: resume fluoxetine, mirtazapine and seroquel will see about other medications tomorrow Plan group/mileu therapy - though doubt pt will initially be cooperative resource building and dc planning with Tuesday Patient educated on: diagnosis, medication risk/benefits and substance abuse Informed Consent: further education needed (wants to go back on all medications NOW) Reason for continued inpatient stay Substantial Risk for: harm to self, inability to function and rapid decompensation
[2022-07-03 08:47] LABS: Glucose, Whole Blood 80 mg/dL (60-115)
[2022-07-03] MEDS: methADONE HCl 20 MG/2 ML ORAL.CONC 135 MG PO (09:18)
[2022-07-03 09:43] VITALS: BP 117/62; PULSE 60; RESP 16; TEMP 37.1; O2SAT 97
[2022-07-03 13:14] LABS: Glucose, Whole Blood 67 mg/dL (60-115)
[2022-07-03 16:14] VITALS: BP 138/84; PULSE 72; TEMP 36.6; O2SAT 98
--- NOTE | 2022-07-03 16:29 | PC.NURSE ---
Addendum entered by Justine Lucio RN 07/03/22 16:32: notified Original Note: pt refused lab draw. pt has not been eating meals and has low blood glucose levels.
--- NOTE | 2022-07-03 17:27 | PC.NURSE ---
pt refused POC at 1630. pt want to sleep. pt has not been eating
[2022-07-03] MEDS: cloNIDine HCL 0.1 MG TABLET PO (20:26)
[2022-07-03] MEDS: Mirtazapine 7.5 MG TABLET PO (20:26)
[2022-07-03] MEDS: Magnesium Oxide 400 MG TABLET PO (20:26)
[2022-07-03] MEDS: QUEtiapine Fumarate 100 MG TABLET PO (20:27)
--- NOTE | 2022-07-03 22:30 | PC.NURSE ---
pt did not eat his meals. pt only ate some toast with peanut butter. pt drank water with meds
[2022-07-04 06:00] VITALS: BP 129/82; PULSE 56; RESP 16; O2SAT 98
[2022-07-04] MEDS: methADONE HCl 20 MG/2 ML ORAL.CONC 135 MG PO (08:44)
[2022-07-04] MEDS: FLUoxetine HCl 20 MG CAPSULE 40 MG PO (08:44)
[2022-07-04] MEDS: cloNIDine HCL 0.1 MG TABLET PO ×2 (08:45→14:22)
[2022-07-04] MEDS: Magnesium Oxide 400 MG TABLET PO ×2 (08:45→14:22)
--- NOTE | 2022-07-04 10:24 | HO.PSYCHPN ---
Subjective Subjective Date of Service: 07/04/22 Reason For Visit: ? opioids overdose Subjective Notes: 3 Day Healthcare Proxy: No Guardianship: No Medical Problems Affecting Mental Status: No Interim History: Pt doesn't want to be here- says he is staying in bed as nothing to do wants to be on his old meds but provider explained to patient if he is so sedated and spending time in bed, makes no sense to resume gabapent and clonazepam which also cause sedation, interestingly patient showing no signs of withdrawl from clonazepam vss, which reportedly he has been on for years. Medication Compliance: Yes Side effects from medications: No Attending Groups: No Mental Status Exam Mental Status Exam Narrative: lying in bed, face away from provider - purposeful Patient Appearance: Disheveled and Unkempt Patient Orientation: Person, Place, Time and Situation Level of Consciousness: Awake Patient Behavior: Guarded and Passive Mood Description: Apathetic and Withdrawn Affect Description: Constricted Patient Cognition Impaired: No Ability to Follow Directions: Fair Hallucinations: None Delusions: Not Present Thought Process: Intact and Goal Oriented Thought Content: positive for Poverty of Content Judgement: Poor Diagnostics Vital Signs (24Hr): Vital Signs - 24 hr 07/03/22 16:14 07/04/22 06:00 Temperature 97.8 F Pulse Rate 72 56 Respiratory Rate 16 Blood Pressure 138/84 129/82 Pulse Oximetry 98 98 Oxygen Delivery Method Room Air Room Air Labs Labs: Laboratory Results - last 48 hr 07/02/22 07/03/22 07/03/22 21:00 08:43 13:07 POC Glucose 74 80 67 Medications Medications Current Medications Acetaminophen (Acetaminophen 325 Mg Tablet) 650 mg PO Q6H PRN PRN Reason: Headache/Pain Mild Scale (1-3) Last Admin: 07/02/22 21:06 Dose: 650 mg Al Hydroxide/Mg Hydroxide (Magnesium Hydrox/Alum Hydrox 30 Ml Oral.Susp) 30 ml PO Q6H PRN PRN Reason: Heartburn/Nausea Clonidine HCl (Clonidine Hcl 0.1 Mg Tablet) 0.1 mg PO TID [facility]; Protocol Last Admin: 07/04/22 08:45 Dose: 0.1 mg Fluoxetine HCl (Fluoxetine Hcl 20 Mg Capsule) 40 mg PO DAILY [facility] Last Admin: 07/04/22 08:44 Dose: 40 mg Hydroxyzine HCl (Hydroxyzine Hcl 25 Mg Tablet) 25 mg PO Q6H PRN PRN Reason: Anxiety Last Admin: 07/02/22 21:06 Dose: 25 mg Magnesium Hydroxide (Milk Of Magnesia 30 Ml Oral.Susp) 30 ml PO DAILY PRN PRN Reason: Constipation Magnesium Oxide (Magnesium Oxide 400 Mg Tablet) 400 mg PO BIDPC [facility] Last Admin: 07/04/22 08:45 Dose: 400 mg Methadone HCl (Methadone Hcl 20 Mg/2 Ml Oral.Conc) 135 mg PO DAILY [facility] Last Admin: 07/04/22 08:44 Dose: 135 mg Mirtazapine (Mirtazapine 7.5 Mg Tablet) 7.5 mg PO BEDTIME [facility] Last Admin: 07/03/22 20:26 Dose: 7.5 mg Quetiapine Fumarate (Quetiapine Fumarate 100 Mg Tablet) 100 mg PO BEDTIME [facility] Last Admin: 07/03/22 20:27 Dose: 100 mg Allergies Allergies Allergy/AdvReac Type Severity Reaction Status Date / Time Pertussis Vaccines Allergy Mild HIVES Verified 02/04/21 14:00 [PERTUSSIS VACCINES] Assessment & Plan Assessment & Plan (1) Opiate dependence, continuous: Status: Acute Code(s): F11.20 - Opioid dependence, uncomplicated Assessment and Plan: complicated by being on benzodiazpines for years (2) Drug overdose: Status: Acute Code(s): T50.901A - Poisoning by unspecified drugs, medicaments and biological substances, accidental (unintentional), initial encounter Assessment and Plan: likely due to methadone/fentanyl/clonazepam/gabapentin/clonidine combo (3) Major depressive disorder, recurrent severe without psychotic features: Status: Acute Code(s): F33.2 - Major depressive disorder, recurrent severe without psychotic features Assessment and Plan: resume fluoxetine, mirtazapine and seroquel will see about other medications tomorrow Plan group/mileu therapy - though doubt pt will initially be cooperative resource building and dc planning with Tuesday I spent minutes with the patient and/or on the patient floor today, greater than?50% of which was spent counseling/coordinating care. Patient educated on: medication risk/benefits and substance abuse Informed Consent: further education needed Reason for contiued inpatient stay Substantial Risk for: harm to self and rapid decompensation
[2022-07-04 18:00] VITALS: RESP 16
[2022-07-05 06:00] VITALS: BP 130/88; PULSE 60; RESP 18
[2022-07-05] MEDS: cloNIDine HCL 0.1 MG TABLET PO ×3 (07:59→20:13)
[2022-07-05] MEDS: Magnesium Oxide 400 MG TABLET PO ×2 (08:00→16:23)
[2022-07-05] MEDS: methADONE HCl 20 MG/2 ML ORAL.CONC 135 MG PO (08:00)
[2022-07-05] MEDS: FLUoxetine HCl 20 MG CAPSULE 40 MG PO (08:00)
--- NOTE | 2022-07-05 10:18 | HO.PSYCHPN ---
Subjective Subjective Date of Service: 07/05/22 Reason For Visit: ? opioids overdose Interim History: difficult with which to engage. Patient kept blanket in front of face whiule talking. He is willing to talk for a few minutes, but soon says i don't want to talk about it i just want to go home.... Pt says he's feeing better; he denies any SI at all or that recent overdsose was intentional. He says that he was on a cocaine pena and that Fentynal is in everything and he just accidentally got a batch with excess fentynal in it. Pt says medications don't help and he still has much anxiety. Pt however does not want scenario writer to change his meds or increase dose, saying i just want to go home... pt said he'd sign a CLAUDIO to talk w/ his mother. Mental Status Exam Mental Status Exam Narrative: Pt is alert and oriented; behavior is marginally cooperative, calm; patient is not in distress; dressed in casual attire with matted hair, malodorous; mood is described as ok...better but affect anxious; minimal eye contact; Speech is normal rate, volume and prosody and not pressured; psychomotor retardation present; thought process is organized and goal directed; Thought content is on going home; otherwise pertinent to relevant topics and without any delusional content, paranoid ideations or grandiosity; denies any SI/HI. There is no evidence of perceptual disturbance. Patients insight and judgment are impired, but likely at baseline. Diagnostics Vital Signs (24Hr): Vital Signs - 24 hr 07/04/22 18:00 07/05/22 06:00 Pulse Rate 60 Respiratory Rate 16 18 Blood Pressure 130/88 Oxygen Delivery Method Room Air Labs Labs: Laboratory Results - last 48 hr 07/03/22 13:07 POC Glucose 67 Medications Medications Current Medications Acetaminophen (Acetaminophen 325 Mg Tablet) 650 mg PO Q6H PRN PRN Reason: Headache/Pain Mild Scale (1-3) Last Admin: 07/02/22 21:06 Dose: 650 mg Al Hydroxide/Mg Hydroxide (Magnesium Hydrox/Alum Hydrox 30 Ml Oral.Susp) 30 ml PO Q6H PRN PRN Reason: Heartburn/Nausea Clonidine HCl (Clonidine Hcl 0.1 Mg Tablet) 0.1 mg PO TID [facility]; Protocol Last Admin: 07/05/22 07:59 Dose: 0.1 mg Fluoxetine HCl (Fluoxetine Hcl 20 Mg Capsule) 40 mg PO DAILY [facility] Last Admin: 07/05/22 08:00 Dose: 40 mg Hydroxyzine HCl (Hydroxyzine Hcl 25 Mg Tablet) 25 mg PO Q6H PRN PRN Reason: Anxiety Last Admin: 07/02/22 21:06 Dose: 25 mg Magnesium Hydroxide (Milk Of Magnesia 30 Ml Oral.Susp) 30 ml PO DAILY PRN PRN Reason: Constipation Magnesium Oxide (Magnesium Oxide 400 Mg Tablet) 400 mg PO BIDPC [facility] Last Admin: 07/05/22 08:00 Dose: 400 mg Methadone HCl (Methadone Hcl 20 Mg/2 Ml Oral.Conc) 135 mg PO DAILY [facility] Last Admin: 07/05/22 08:00 Dose: 135 mg Mirtazapine (Mirtazapine 7.5 Mg Tablet) 7.5 mg PO BEDTIME [facility] Last Admin: 07/04/22 21:03 Dose: Not Given Quetiapine Fumarate (Quetiapine Fumarate 100 Mg Tablet) 100 mg PO BEDTIME [facility] Last Admin: 07/04/22 21:03 Dose: Not Given Allergies Allergies Allergy/AdvReac Type Severity Reaction Status Date / Time Pertussis Vaccines Allergy Mild HIVES Verified 02/04/21 14:00 [PERTUSSIS VACCINES] Assessment & Plan Assessment & Plan (1) Major depressive disorder, recurrent severe without psychotic features: Status: Acute Code(s): F33.2 - Major depressive disorder, recurrent severe without psychotic features Assessment and Plan: resume fluoxetine, mirtazapine and seroquel will see about other medications tomorrow (2) Opiate dependence, continuous: Status: Acute Code(s): F11.20 - Opioid dependence, uncomplicated Assessment and Plan: complicated by being on benzodiazpines for years (3) Drug overdose: Status: Acute Code(s): T50.901A - Poisoning by unspecified drugs, medicaments and biological substances, accidental (unintentional), initial encounter Assessment and Plan: likely due to methadone/fentanyl/clonazepam/gabapentin/clonidine combo Plan 32 yo male w/ hx of depression, cocaine addiction, opioid abuse presents for depression and overdose of opioids. Pt denies SI or that oversose was anything other than an accident. Not willing to engage, does not want med changes, but says he's fine and wants to discharge home. 07/05 denies depression or SI but endorses much anxiety; does not want help, not engaged in treatment, just wants to go home. plan: 3 day notice q15min continue home meds get collateral I spent minutes with the patient and/or on the patient floor today, greater than?50% of which was spent counseling/coordinating care. Patient educated on: diagnosis, medication risk/benefits and substance abuse Informed Consent: understands, does not understand and further education needed Reason for contiued inpatient stay Substantial Risk for: rapid decompensation
[2022-07-05 14:33] VITALS: BP 113/72; PULSE 62
[2022-07-05 18:00] VITALS: BP 124/85; PULSE 73; RESP 18; O2SAT 96
[2022-07-05] MEDS: QUEtiapine Fumarate 100 MG TABLET PO (20:13)
[2022-07-05] MEDS: Mirtazapine 7.5 MG TABLET PO (20:13)
[2022-07-06 08:59] VITALS: BP 146/93; PULSE 95; RESP 16; TEMP 36.9; O2SAT 98
[2022-07-06] MEDS: Magnesium Oxide 400 MG TABLET PO ×2 (09:23→15:42)
[2022-07-06] MEDS: methADONE HCl 20 MG/2 ML ORAL.CONC 135 MG PO (09:23)
[2022-07-06] MEDS: FLUoxetine HCl 20 MG CAPSULE 40 MG PO (09:23)
[2022-07-06] MEDS: cloNIDine HCL 0.1 MG TABLET PO ×3 (09:23→19:30)
[2022-07-06] MEDS: Nicotine 21 MG PATCH.TD24 TRANSDERMA (10:50)
--- NOTE | 2022-07-06 13:13 | PC.NURSE ---
Pt had signed a 3 day on 07/03, was retracted on 07/06
[2022-07-06] MEDS: Acetaminophen 325 MG TABLET 650 MG PO (15:41)
[2022-07-06] MEDS: Mirtazapine 7.5 MG TABLET PO (19:30)
[2022-07-06 19:31] VITALS: BP 134/93; PULSE 72
[2022-07-06] MEDS: QUEtiapine Fumarate 200 MG TABLET PO (19:31)
--- NOTE | 2022-07-06 22:32 | HO.PSYCHPN ---
Subjective Subjective Date of Service: 07/06/22 Reason For Visit: ? opioids overdose Interim History: Patient opened up today and shared history. Patient shared that he is very depressed all of the time. He said this has been true since he was a kid in grade school. Patient shares that he has lots of self deprecating thoughts and feels very guilty for the trouble he has caused his family with his addiction. He also reports much anxiety that makes it difficult to interact with others and he uses the term social anxiety. Patient said that he uses to deal with these symptoms however it barely helps and he does not really get high anymore. Patient continues to deny any AVH or history of it. He also continues to deny any SI at all and that overdose was a complete accident. Patient said he is willing to retract his 3 day unit and stay on the unit for treatment He also reports hx of 1-2 hypomanic episodes, lasting for about 2 days where he was sober, hyperverbal, hyperactive, no sleep, racing thoughts and his friends that he was using cocaine when he was not. Patient lists medication history which includes Celexa, Paxil and Wellbutrin none of which is ever worked. He said that he was sober at a program for a few months during which time Remeron and Prozac which he is currently on, were partially effective reducing anxiety depression to a 7/10 Certified Registered Nurse Anesthetist discussed the possibility of bipolar depression given that SSRI's and antidepressants from to other categories have not worked. He is willing to try Latuda, Vraylar or Seroquel and television script writer reviewed risks/side effects of these medications including but not limited to tardive dyskinesia; patient participated in discussion, asking questions and understood risks/side effects and wants to continue with medication trial. Mental Status Exam Mental Status Exam Narrative: Pt is alert and oriented; behavior is cooperative, calm; patient is not in distress; dressed in hospital attire with matted hair, malodorous; mood is described as depressed...anxious and affect congruent, downcast; minimal eye contact; Speech is normal rate, volume and prosody and not pressured; no psychomotor retardation present; thought process is organized and goal directed; Thought content is on treatment; otherwise pertinent to relevant topics and without any delusional content, paranoid ideations or grandiosity; denies any SI/HI. There is no evidence of perceptual disturbance. Patients insight and judgment are impaired, but likely at baseline. Diagnostics Vital Signs (24Hr): Vital Signs - 24 hr 07/06/22 08:59 07/06/22 19:31 Temperature 98.4 F Pulse Rate 95 72 Respiratory Rate 16 Blood Pressure 146/93 H 134/93 H Pulse Oximetry 98 Oxygen Delivery Method Room Air Medications Medications Current Medications Acetaminophen (Acetaminophen 325 Mg Tablet) 650 mg PO Q6H PRN PRN Reason: Headache/Pain Mild Scale (1-3) Last Admin: 07/06/22 15:41 Dose: 650 mg Al Hydroxide/Mg Hydroxide (Magnesium Hydrox/Alum Hydrox 30 Ml Oral.Susp) 30 ml PO Q6H PRN PRN Reason: Heartburn/Nausea Clonidine HCl (Clonidine Hcl 0.1 Mg Tablet) 0.1 mg PO TID [facility]; Protocol Last Admin: 07/06/22 19:30 Dose: 0.1 mg Fluoxetine HCl (Fluoxetine Hcl 20 Mg Capsule) 40 mg PO DAILY [facility] Last Admin: 07/06/22 09:23 Dose: 40 mg Hydroxyzine HCl (Hydroxyzine Hcl 25 Mg Tablet) 25 mg PO Q6H PRN PRN Reason: Anxiety Last Admin: 07/02/22 21:06 Dose: 25 mg Magnesium Hydroxide (Milk Of Magnesia 30 Ml Oral.Susp) 30 ml PO DAILY PRN PRN Reason: Constipation Magnesium Oxide (Magnesium Oxide 400 Mg Tablet) 400 mg PO BIDPC [facility] Last Admin: 07/06/22 15:42 Dose: 400 mg Methadone HCl (Methadone Hcl 20 Mg/2 Ml Oral.Conc) 135 mg PO DAILY [facility] Last Admin: 07/06/22 09:23 Dose: 135 mg Mirtazapine (Mirtazapine 7.5 Mg Tablet) 7.5 mg PO BEDTIME [facility] Last Admin: 07/06/22 19:30 Dose: 7.5 mg Nicotine (Nicotine 21 Mg Patch.Td24) 21 mg TRANSDERMA DAILY [facility] Last Admin: 07/06/22 10:50 Dose: 21 mg Quetiapine Fumarate (Quetiapine Fumarate 200 Mg Tablet) 200 mg PO BEDTIME [facility] Last Admin: 07/06/22 19:31 Dose: 200 mg Allergies Allergies Allergy/AdvReac Type Severity Reaction Status Date / Time Pertussis Vaccines Allergy Mild HIVES Verified 02/04/21 14:00 [PERTUSSIS VACCINES] Assessment & Plan Assessment & Plan (1) Major depressive disorder, recurrent severe without psychotic features: Status: Acute Code(s): F33.2 - Major depressive disorder, recurrent severe without psychotic features Assessment and Plan: resume fluoxetine, mirtazapine and seroquel will see about other medications tomorrow (2) Opiate dependence, continuous: Status: Acute Code(s): F11.20 - Opioid dependence, uncomplicated Assessment and Plan: complicated by being on benzodiazpines for years (3) Drug overdose: Status: Acute Code(s): T50.901A - Poisoning by unspecified drugs, medicaments and biological substances, accidental (unintentional), initial encounter Assessment and Plan: likely due to methadone/fentanyl/clonazepam/gabapentin/clonidine combo Plan 32 yo male w/ hx of depression, cocaine addiction, opioid abuse presents for depression and overdose of opioids. Pt denies SI or that oversose was anything other than an accident. Not willing to engage, does not want med changes, but says he's fine and wants to discharge home. 07/05 denies depression or SI but endorses much anxiety; does not want help, not engaged in treatment, just wants to go home. 07/06 Patient opened up today and shared history. Patient shared that he is very depressed all of the time. He said this has been true since he was a kid in grade school. Patient shares that he has lots of self deprecating thoughts and feels very guilty for the trouble he has caused his family with his addiction. He also reports much anxiety that makes it difficult to interact with others and he uses the term social anxiety. Patient said that he uses to deal with these symptoms however it barely helps and he does not really get high anymore. Patient continues to deny any AVH or history of it. He also continues to deny any SI at all and that overdose was a complete accident. Patient said he is willing to retract his 3 day unit and stay on the unit for treatment He also reports hx of 1-2 hypomanic episodes, lasting for about 2 days where he was sober, hyperverbal, hyperactive, no sleep, racing thoughts and his friends that he was using cocaine when he was not. Patient lists medication history which includes Celexa, Paxil and Wellbutrin none of which is ever worked. He said that he was sober at a program for a few months during which time Bo and Prozac which he is currently on, were partially effective reducing anxiety depression to a 7/10. Certified Registered Nurse Anesthetist discussed the possibility of bipolar depression given that SSRI's and antidepressants from to other categories have not worked. He is willing to try Latuda, Vraylar or Seroquel and television script writer reviewed risks/side effects of these medications including but not limited to tardive dyskinesia; patient participated in discussion, asking questions and understood risks/side effects and wants to continue with medication trial. plan: CV (retracted 3 day) q15min InCREASE to Seroquel 200mg qhs; Latuda requires PA get collateral I spent minutes with the patient and/or on the patient floor today, greater than?50% of which was spent counseling/coordinating care. Patient educated on: diagnosis, medication risk/benefits and substance abuse Informed Consent: understands Reason for contiued inpatient stay Substantial Risk for: stable for discharge
[2022-07-07] MEDS: FLUoxetine HCl 20 MG CAPSULE 40 MG PO (08:29)
[2022-07-07] MEDS: methADONE HCl 20 MG/2 ML ORAL.CONC 135 MG PO (08:29)
[2022-07-07] MEDS: cloNIDine HCL 0.1 MG TABLET PO ×3 (08:29→19:16)
[2022-07-07] MEDS: Nicotine 21 MG PATCH.TD24 TRANSDERMA (08:30)
[2022-07-07 08:45] VITALS: BP 146/94; PULSE 88; RESP 18; TEMP 36.2; O2SAT 99
[2022-07-07] MEDS: Magnesium Oxide 400 MG TABLET PO ×2 (10:11→17:26)
--- NOTE | 2022-07-07 12:35 | HO.PSYCHPN ---
Subjective Subjective Date of Service: 07/07/22 Reason For Visit: ? opioids overdose Interim History: pt feeling tylor and says he hardodalis slept last night. He says they took away his Gabapentin and Clonazepam on admission and that they always due this to him. He says he gets Gabapentin 600mg, 600mg and 900mg and Clonzepam 1mg TID, both for years. slitting machine operator helper reviewed massPat and confirms this to be the case. Pt grateful restarted; agrees to further titration of Seroquel for depression. Mental Status Exam Mental Status Exam Narrative: Pt is alert and oriented; behavior is cooperative, calm; patient is not in distress; dressed in hospital attire with matted hair, malodorous; mood is described as anxious and affect congruent, downcast; minimal eye contact; Speech is normal rate, volume and prosody and not pressured; no psychomotor retardation present; thought process is organized and goal directed; Thought content is on treatment; otherwise pertinent to relevant topics and without any delusional content, paranoid ideations or grandiosity; denies any SI/HI. There is no evidence of perceptual disturbance. Patients insight and judgment are impaired, but likely at baseline. Diagnostics Vital Signs (24Hr): Vital Signs - 24 hr 07/06/22 19:31 07/07/22 08:45 Temperature 97.1 F Pulse Rate 72 88 Respiratory Rate 18 Blood Pressure 134/93 H 146/94 H Pulse Oximetry 99 Oxygen Delivery Method Room Air Medications Medications Current Medications Acetaminophen (Acetaminophen 325 Mg Tablet) 650 mg PO Q6H PRN PRN Reason: Headache/Pain Mild Scale (1-3) Last Admin: 07/06/22 15:41 Dose: 650 mg Al Hydroxide/Mg Hydroxide (Magnesium Hydrox/Alum Hydrox 30 Ml Oral.Susp) 30 ml PO Q6H PRN PRN Reason: Heartburn/Nausea Clonazepam (Clonazepam 1 Mg Tablet) 1 mg PO ONCE ONE Stop: 07/07/22 12:30 Clonidine HCl (Clonidine Hcl 0.1 Mg Tablet) 0.1 mg PO TID [facility]; Protocol Last Admin: 07/07/22 08:29 Dose: 0.1 mg Fluoxetine HCl (Fluoxetine Hcl 20 Mg Capsule) 40 mg PO DAILY SUKHDEEP Last Admin: 07/07/22 08:29 Dose: 40 mg Gabapentin (Gabapentin 600 Mg Tablet) 600 mg PO ONCE ONE Stop: 07/07/22 14:01 Hydroxyzine HCl (Hydroxyzine Hcl 25 Mg Tablet) 25 mg PO Q6H PRN PRN Reason: Anxiety Last Admin: 07/02/22 21:06 Dose: 25 mg Magnesium Hydroxide (Milk Of Magnesia 30 Ml Oral.Susp) 30 ml PO DAILY PRN PRN Reason: Constipation Magnesium Oxide (Magnesium Oxide 400 Mg Tablet) 400 mg PO BIDPC [facility] Last Admin: 07/07/22 10:11 Dose: 400 mg Metformin HCl (Metformin Hcl 500 Mg Tablet) 500 mg PO BIDWM SUKHDEEP Methadone HCl (Methadone Hcl 20 Mg/2 Ml Oral.Conc) 135 mg PO DAILY [facility] Last Admin: 07/07/22 08:29 Dose: 135 mg Mirtazapine (Mirtazapine 7.5 Mg Tablet) 7.5 mg PO BEDTIME [facility] Last Admin: 07/06/22 19:30 Dose: 7.5 mg Nicotine (Nicotine 21 Mg Patch.Td24) 21 mg TRANSDERMA DAILY [facility] Last Admin: 07/07/22 08:30 Dose: 21 mg Quetiapine Fumarate (Quetiapine Fumarate 300 Mg Tablet) 300 mg PO BEDTIME [facility] Allergies Allergies Allergy/AdvReac Type Severity Reaction Status Date / Time Pertussis Vaccines Allergy Mild HIVES Verified 02/04/21 14:00 [PERTUSSIS VACCINES] Assessment & Plan Assessment & Plan (1) Major depressive disorder, recurrent severe without psychotic features: Status: Acute Code(s): F33.2 - Major depressive disorder, recurrent severe without psychotic features Assessment and Plan: resume fluoxetine, mirtazapine and seroquel will see about other medications tomorrow (2) Opiate dependence, continuous: Status: Acute Code(s): F11.20 - Opioid dependence, uncomplicated Assessment and Plan: complicated by being on benzodiazpines for years (3) Drug overdose: Status: Acute Code(s): T50.901A - Poisoning by unspecified drugs, medicaments and biological substances, accidental (unintentional), initial encounter Assessment and Plan: likely due to methadone/fentanyl/clonazepam/gabapentin/clonidine combo Plan 32 yo male w/ hx of depression, cocaine addiction, opioid abuse presents for depression and overdose of opioids. Pt denies SI or that oversose was anything other than an accident. Not willing to engage, does not want med changes, but says he's fine and wants to discharge home. 07/05 denies depression or SI but endorses much anxiety; does not want help, not engaged in treatment, just wants to go home. 07/06 Patient opened up today and shared history. Patient shared that he is very depressed all of the time. He said this has been true since he was a kid in grade school. Patient shares that he has lots of self deprecating thoughts and feels very guilty for the trouble he has caused his family with his addiction. He also reports much anxiety that makes it difficult to interact with others and he uses the term social anxiety. Patient said that he uses to deal with these symptoms however it barely helps and he does not really get high anymore. Patient continues to deny any AVH or history of it. He also continues to deny any SI at all and that overdose was a complete accident. Patient said he is willing to retract his 3 day unit and stay on the unit for treatment He also reports hx of 1-2 hypomanic episodes, lasting for about 2 days where he was sober, hyperverbal, hyperactive, no sleep, racing thoughts and his friends that he was using cocaine when he was not. Patient lists medication history which includes Celexa, Paxil and Wellbutrin none of which is ever worked. He said that he was sober at a program for a few months during which time Remeron and Prozac which he is currently on, were partially effective reducing anxiety depression to a 7/10. Treatment Coordinator discussed the possibility of bipolar depression given that SSRI's and antidepressants from to other categories have not worked. He is willing to try Latuda, Vraylar or Seroquel and rfp writer reviewed risks/side effects of these medications including but not limited to tardive dyskinesia; patient participated in discussion, asking questions and understood risks/side effects and wants to continue with medication trial. 07/06 very anxious since has been off gabapentin and clonazepam; rfp writer confirmed these meds which he gets consistently as outpt. Obviously risks involved given substance abouse. Treatment Coordinator discussed with pt the high dose of clonazepam, rfp writer agrees that patient will not tolerate reduction in these meds at this time and will very likely need a prolonged taper; hope is that if depression can be better dealt with (and anxiety), then he'll need these other meds less and outpt provider can taper over time. plan: CV (retracted 3 day) q15min InCREASE to Seroquel 300mg qhs; Latuda requires PA RE-start Gabapentin 600mg/600mg/900mg (gets as outpt; stopped here on admission since sedated) RE-start Clonazepam 1mg TID; (gets as outpt; stopped here on admission since sedated) I spent minutes with the patient and/or on the patient floor today, greater than?50% of which was spent counseling/coordinating care. Patient educated on: diagnosis, medication risk/benefits and substance abuse Informed Consent: understands Reason for contiued inpatient stay Substantial Risk for: rapid decompensation
[2022-07-07] MEDS: Gabapentin 600 MG TABLET PO (12:59)
[2022-07-07] MEDS: clonazePAM 1 MG TABLET PO ×2 (12:59→19:16)
[2022-07-07] MEDS: Nicotine Polacrilex 2 MG GUM BUCCAL ×3 (14:49→21:08)
[2022-07-07] MEDS: metFORMIN HCl 500 MG TABLET PO (17:19)
[2022-07-07] MEDS: Milk of Magnesia 30 ML ORAL.SUSP PO (17:19)
[2022-07-07 17:34] VITALS: BP 111/82; PULSE 114; RESP 16; TEMP 35.7; O2SAT 98
[2022-07-07] MEDS: QUEtiapine Fumarate 300 MG TABLET PO (19:16)
[2022-07-07] MEDS: Mirtazapine 7.5 MG TABLET PO (19:16)
[2022-07-07] MEDS: Gabapentin 300 MG CAPSULE 900 MG PO (19:17)
[2022-07-08] MEDS: Nicotine 21 MG PATCH.TD24 TRANSDERMA (08:32)
[2022-07-08] MEDS: methADONE HCl 20 MG/2 ML ORAL.CONC 135 MG PO (08:32)
[2022-07-08] MEDS: FLUoxetine HCl 20 MG CAPSULE 40 MG PO (08:32)
[2022-07-08] MEDS: cloNIDine HCL 0.1 MG TABLET PO ×3 (08:33→20:30)
[2022-07-08] MEDS: Gabapentin 600 MG TABLET PO ×2 (08:33→14:22)
[2022-07-08] MEDS: Magnesium Oxide 400 MG TABLET PO ×2 (08:33→16:23)
[2022-07-08] MEDS: clonazePAM 1 MG TABLET PO ×3 (08:33→20:30)
[2022-07-08] MEDS: metFORMIN HCl 500 MG TABLET PO ×2 (08:33→16:22)
[2022-07-08 08:38] VITALS: BP 130/97; PULSE 97; RESP 18; TEMP 36.1; O2SAT 98
--- NOTE | 2022-07-08 10:12 | HO.PSYCHPN ---
Subjective Subjective Date of Service: 07/08/22 Reason For Visit: ? opioids overdose Interim History: Patient reports good mood and he is indeed with much brighter affect, social in the milieu, playing games with peers.? Patient said that he is doing much better since he was restarted on gabapentin and clonazepam.? Pt said he was so anxious before he hardly left his room but now feels much better. He also feels that his depression is significantly less and currently he is feeling quite hopeful.? Patient asks for discharge looking for to going home.? He is open to having a health care coach and is optimistic about staying sober; he is also contemplating programs.? He reports he is sleeping well and eating well and wants to keep the medications as they are.? Patient denies any SI or HI as he has consistently throughout this admission.? Mental Status Exam Mental Status Exam Narrative: Pt is alert and oriented; behavior is cooperative, calm, friendly; patient is not in distress; dressed in casual attire with matted hair but good hygiene; mood is described as good...happy and affect congruent, bright, friendlyt; eye contact appropriate; Speech is normal rate, volume and prosody and not pressured; no psychomotor retardation present; thought process is organized and goal directed; Thought content is on treatment; otherwise pertinent to relevant topics and without any delusional content, paranoid ideations or grandiosity; denies any SI/HI. There is no evidence of perceptual disturbance. Patients insight and judgment is fair and adequate. Diagnostics Vital Signs (24Hr): Vital Signs - 24 hr 07/07/22 17:34 07/08/22 08:38 Temperature 96.2 F L 96.9 F Pulse Rate 114 H 97 Respiratory Rate 16 18 Blood Pressure 111/82 130/97 H Pulse Oximetry 98 98 Oxygen Delivery Method Room Air Room Air Medications Medications Current Medications Acetaminophen (Acetaminophen 325 Mg Tablet) 650 mg PO Q6H PRN PRN Reason: Headache/Pain Mild Scale (1-3) Last Admin: 07/06/22 15:41 Dose: 650 mg Al Hydroxide/Mg Hydroxide (Magnesium Hydrox/Alum Hydrox 30 Ml Oral.Susp) 30 ml PO Q6H PRN PRN Reason: Heartburn/Nausea Clonazepam (Clonazepam 1 Mg Tablet) 1 mg PO TID [facility] Last Admin: 07/08/22 08:33 Dose: 1 mg Clonidine HCl (Clonidine Hcl 0.1 Mg Tablet) 0.1 mg PO TID [facility]; Protocol Last Admin: 07/08/22 08:33 Dose: 0.1 mg Fluoxetine HCl (Fluoxetine Hcl 20 Mg Capsule) 40 mg PO DAILY [facility] Last Admin: 07/08/22 08:32 Dose: 40 mg Gabapentin (Gabapentin 600 Mg Tablet) 600 mg PO BID@0900,1400 [facility] Last Admin: 07/08/22 08:33 Dose: 600 mg Gabapentin (Gabapentin 300 Mg Capsule) 900 mg PO BEDTIME [facility] Last Admin: 07/07/22 19:17 Dose: 900 mg Hydroxyzine HCl (Hydroxyzine Hcl 25 Mg Tablet) 25 mg PO Q6H PRN PRN Reason: Anxiety Last Admin: 07/02/22 21:06 Dose: 25 mg Magnesium Hydroxide (Milk Of Magnesia 30 Ml Oral.Susp) 30 ml PO DAILY PRN PRN Reason: Constipation Last Admin: 07/07/22 17:19 Dose: 30 ml Magnesium Oxide (Magnesium Oxide 400 Mg Tablet) 400 mg PO BIDPC [facility] Last Admin: 07/08/22 08:33 Dose: 400 mg Metformin HCl (Metformin Hcl 500 Mg Tablet) 500 mg PO BIDWM [facility] Last Admin: 07/08/22 08:33 Dose: 500 mg Methadone HCl (Methadone Hcl 20 Mg/2 Ml Oral.Conc) 135 mg PO DAILY [facility] Last Admin: 07/08/22 08:32 Dose: 135 mg Mirtazapine (Mirtazapine 7.5 Mg Tablet) 7.5 mg PO BEDTIME [facility] Last Admin: 07/07/22 19:16 Dose: 7.5 mg Nicotine (Nicotine 21 Mg Patch.Td24) 21 mg TRANSDERMA DAILY [facility] Last Admin: 07/08/22 08:32 Dose: 21 mg Nicotine Polacrilex (Nicotine Polacrilex 2 Mg Gum) 2 mg BUCCAL Q2H PRN PRN Reason: Nicotine Cravings Last Admin: 07/07/22 21:08 Dose: 2 mg Quetiapine Fumarate (Quetiapine Fumarate 300 Mg Tablet) 300 mg PO BEDTIME [facility] Last Admin: 07/07/22 19:16 Dose: 300 mg Allergies Allergies Allergy/AdvReac Type Severity Reaction Status Date / Time Pertussis Vaccines Allergy Mild HIVES Verified 02/04/21 14:00 [PERTUSSIS VACCINES] Assessment & Plan Assessment & Plan (1) Major depressive disorder, recurrent severe without psychotic features: Status: Acute Code(s): F33.2 - Major depressive disorder, recurrent severe without psychotic features Assessment and Plan: resume fluoxetine, mirtazapine and seroquel will see about other medications tomorrow (2) Opiate dependence, continuous: Status: Acute Code(s): F11.20 - Opioid dependence, uncomplicated Assessment and Plan: complicated by being on benzodiazpines for years (3) Drug overdose: Status: Acute Code(s): T50.901A - Poisoning by unspecified drugs, medicaments and biological substances, accidental (unintentional), initial encounter Assessment and Plan: likely due to methadone/fentanyl/clonazepam/gabapentin/clonidine combo Plan 32 yo male w/ hx of depression, cocaine addiction, opioid abuse presents for depression and overdose of opioids. Pt denies SI or that oversose was anything other than an accident. Not willing to engage, does not want med changes, but says he's fine and wants to discharge home. 07/05 denies depression or SI but endorses much anxiety; does not want help, not engaged in treatment, just wants to go home. 07/06 Patient opened up today and shared history. Patient shared that he is very depressed all of the time. He said this has been true since he was a kid in grade school. Patient shares that he has lots of self deprecating thoughts and feels very guilty for the trouble he has caused his family with his addiction. He also reports much anxiety that makes it difficult to interact with others and he uses the term social anxiety. Patient said that he uses to deal with these symptoms however it barely helps and he does not really get high anymore. Patient continues to deny any AVH or history of it. He also continues to deny any SI at all and that overdose was a complete accident. Patient said he is willing to retract his 3 day unit and stay on the unit for treatment He also reports hx of 1-2 hypomanic episodes, lasting for about 2 days where he was sober, hyperverbal, hyperactive, no sleep, racing thoughts and his friends that he was using cocaine when he was not. Patient lists medication history which includes Celexa, Paxil and Wellbutrin none of which is ever worked. He said that he was sober at a program for a few months during which time Remeron and Prozac which he is currently on, were partially effective reducing anxiety depression to a 7/10. Chemical Applicator discussed the possibility of bipolar depression given that SSRI's and antidepressants from to other categories have not worked. He is willing to try Latuda, Vraylar or Seroquel and sports writer reviewed risks/side effects of these medications including but not limited to tardive dyskinesia; patient participated in discussion, asking questions and understood risks/side effects and wants to continue with medication trial. 07/06 very anxious since has been off gabapentin and clonazepam; sports writer confirmed these meds which he gets consistently as outpt. Obviously risks involved given substance abouse. Chemical Applicator discussed with pt the high dose of clonazepam, sports writer agrees that patient will not tolerate reduction in these meds at this time and will very likely need a prolonged taper; hope is that if depression can be better dealt with (and anxiety), then he'll need these other meds less and outpt provider can taper over time. 07/07 improved; in milue w/ peers, bathed. 07/08 Patient reports good mood and he is indeed with much brighter affect, social in the milieu, playing games with peers.? Patient said that he is doing much better since he was restarted on gabapentin and clonazepam.? Pt said he was so anxious before he hardly left his room but now feels much better. He also feels that his depression is significantly less and currently he is feeling quite hopeful.? Patient asks for discharge looking for to going home.? He is open to having a relapse prevention pitching coach and is contemplating programs.? He reports he is sleeping well and eating well and wants to keep the medications as they are.? Patient denies any SI or HI as he has consistently throughout this admission. Patient is returning to live with his mother who is supportive.? He has outpatient services already.? Tolerating medications well including increase Seroquel.? Patient is not in imminent risk for harm to self or others and his request for discharge honored. ?? plan: CV (retracted 3 day) q15min continue Seroquel 300mg qhs; Latuda requires PA RE-start Gabapentin 600mg/600mg/900mg (gets as outpt; stopped here on admission since sedated) RE-start Clonazepam 1mg TID; (gets as outpt; stopped here on admission since sedated) I spent minutes with the patient and/or on the patient floor today, greater than?50% of which was spent counseling/coordinating care. Patient educated on: diagnosis, medication risk/benefits and substance abuse Informed Consent: understands Reason for contiued inpatient stay Substantial Risk for: stable for discharge
[2022-07-08] MEDS: Nicotine Polacrilex 2 MG GUM BUCCAL ×3 (11:28→20:31)
[2022-07-08 20:15] VITALS: BP 124/78; PULSE 65; TEMP 36.6
[2022-07-08] MEDS: QUEtiapine Fumarate 300 MG TABLET PO (20:30)
[2022-07-08] MEDS: Gabapentin 300 MG CAPSULE 900 MG PO (20:30)
[2022-07-08] MEDS: Mirtazapine 7.5 MG TABLET PO (20:30)
[2022-07-09 07:55] VITALS: BP 111/76; PULSE 98; RESP 98; TEMP 36.6; O2SAT 98
[2022-07-09] MEDS: Nicotine 21 MG PATCH.TD24 TRANSDERMA (08:30)
[2022-07-09] MEDS: FLUoxetine HCl 20 MG CAPSULE 40 MG PO (08:30)
[2022-07-09] MEDS: Gabapentin 600 MG TABLET PO (08:31)
[2022-07-09] MEDS: cloNIDine HCL 0.1 MG TABLET PO (08:31)
[2022-07-09] MEDS: metFORMIN HCl 500 MG TABLET PO (08:31)
[2022-07-09] MEDS: Magnesium Oxide 400 MG TABLET PO (08:31)
[2022-07-09] MEDS: clonazePAM 1 MG TABLET PO (08:31)
[2022-07-09] MEDS: methADONE HCl 20 MG/2 ML ORAL.CONC 135 MG PO (08:31)
--- NOTE | 2022-07-09 09:23 | PM.PSYDC ---
DS: Providers Provider Date of Service: 07/09/22 Date of admission: 07/02/22 18:29 Date of discharge: 07/09/22 Primary care physician: Unknown Physician Attending physician on admission: Judi Quevedo Consults: 07/02/22 20:09 Addiction Medicine Routine Consulting Provider: Addiction Covering Reason for consultation: possible opoiod overdose Has provider been notified: No BHN [Consult to Crisis] Stat Reason for consultation: SI/DEPRESSED Has provider been notified: No Consult for Sitter Routine Reason for consultation: severe depressed /SI Has provider been notified: No Consult to Care Team Routine Comment: Reason for consultation: DEPRESSED/ SUICIDAL Consult to Care Team Routine Comment: Reason for consultation: sude Consult to Care Team Stat Comment: Reason for consultation: pt medically cleared, dispo volunatry for inpt psych Consult to Psychiatry Routine Consulting Provider: Psych Covering Reason for consultation: possible opoid overdose /on multiple psych meds Has provider been notified: No Attending physician on discharge: Rod Alvarado DS: Diagnosis Discharge Diagnosis (1) Major depressive disorder, recurrent severe without psychotic features: Status: Acute (2) Opiate dependence, continuous: Status: Acute (3) Drug overdose: Status: Acute DS: Medications Discharge Medications Home Medications: Home Medications Medication Instructions Recorded Confirmed clonazepam 1 mg tablet 1 tab PO TID 01/30/21 06/30/22 fluoxetine 40 mg capsule 1 cap PO DAILY 01/30/21 06/30/22 gabapentin 300 mg capsule 1 cap PO BEDTIME 01/30/21 06/30/22 gabapentin 600 mg tablet 1 tab PO TID 01/30/21 06/30/22 metformin 500 mg tablet 1 tab PO BID 01/30/21 06/30/22 methadone 10 mg/mL oral 135 mg PO DAILY 01/30/21 05/26/22 concentrate (Methadone Intensol) albuterol sulfate 90 mcg/actuation 2 puff inhalation QID PRN wheezing 02/22/22 06/30/22 aerosol inhaler (ProAir HFA) fluticasone propionate 110 1 puff inhalation BID 02/22/22 06/30/22 mcg/actuation HFA aerosol inhaler (Flovent HFA) Previous Rx's Medication Instructions Recorded clonidine HCl 0.1 mg tablet 0.1 mg PO TID #90 tabs 03/02/22 mirtazapine 7.5 mg tablet 7.5 mg PO BEDTIME #30 tabs 03/02/22 nicotine (polacrilex) 2 mg gum 2 mg buccal Q2H PRN Nicotine 07/09/22 Cravings 30 days #100 ea nicotine 21 mg/24 hr daily 21 mg transdermal DAILY 28 days 07/09/22 transdermal patch #28 ea quetiapine 300 mg tablet 300 mg PO BEDTIME 30 days #30 tabs 07/09/22 Mental Status Exam Mental Status Exam Narrative: Pt is alert and oriented; behavior is cooperative, calm, friendly; patient is not in distress; dressed in casual attire with matted hair but good hygiene; mood is described as good...happy and affect congruent, bright, friendly; eye contact appropriate; Speech is normal rate, volume and prosody and not pressured; no psychomotor retardation present; thought process is organized and goal directed; Thought content is on treatment; otherwise pertinent to relevant topics and without any delusional content, paranoid ideations or grandiosity; denies any SI/HI. There is no evidence of perceptual disturbance. Patients insight and judgment is fair and adequate. Data Data Completed and Pending Completed studies during hospitalization [Text1]: 07/02/22 07/03/22 07/03/22 21:00 08:43 13:07 POC Glucose 74 80 67 DS: Summary Hospital Course Hospital Course: HPI: 32 yo male w/ hx of depression, cocaine addiction, opioid abuse presents for depression and overdose of opioids. Pt denies SI or that oversose was anything other than an accident. Not willing to engage, does not want med changes, but says he's fine and wants to discharge home. Hospital course: 07/05 denies depression or SI but endorses much anxiety; does not want help, not engaged in treatment, just wants to go home. 07/06 Patient opened up today and shared history.? Patient shared that he is very depressed all of the time.? He said this has been true since he was a kid in grade school.? Patient shares that he has lots of self deprecating thoughts and feels very guilty for the trouble he has caused his family with his addiction.? He also reports much anxiety that makes it difficult to interact with others and he uses the term social anxiety.? Patient said that he uses to deal with these symptoms however it barely helps and he does not really get high anymore.? Patient continues to deny any AVH or history of it.? He also continues to deny any SI at all and that overdose was a complete accident.? Patient said he is willing to retract his 3 day unit and stay on the unit for treatment He also reports hx of? 1-2 hypomanic episodes, lasting for about 2 days where he was sober, hyperverbal, hyperactive, no sleep, racing thoughts and his friends that he was using cocaine when he was not.? Patient lists medication history which includes Celexa, Paxil and Wellbutrin none of which is ever worked.? He said that he was sober at a program for a few months during which time Remeron and Prozac which he is currently on, were partially effective reducing anxiety depression to a 7/10. Cupola Liner Helper discussed the possibility of bipolar depression given that SSRI's and antidepressants from to other categories have not worked.? He is willing to try Latuda, Vraylar or Seroquel and journalists and other writers reviewed risks/side effects of these medications including but not limited to tardive dyskinesia; patient participated in discussion, asking questions and understood risks/side effects and wants to continue with medication trial. Patients seroquel was titrated to 300mg at bedtime with good effect and well tolerated. 07/06 very anxious since has been off gabapentin and clonazepam; journalists and other writers confirmed these meds which he gets consistently as outpt. Obviously risks involved given substance abouse. Cupola Liner Helper discussed with pt the high dose of clonazepam, journalists and other writers agrees that patient will not tolerate reduction in these meds at this time and will very likely need a prolonged taper; hope is that if depression can be better dealt with (and anxiety), then he'll need these other meds less and outpt provider can taper over time. 07/07 improved; in milue w/ peers, bathed. 07/08 Patient reports good mood and he is indeed with much brighter affect, social in the milieu, playing games with peers.? Patient said that he is doing much better since he was restarted on gabapentin and clonazepam.? Pt said he was so anxious before he hardly left his room but now feels much better. He also feels that his depression is significantly less and currently he is feeling quite hopeful.? Patient asks for discharge looking forward to going home.? 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 He reports he is sleeping well and eating well and wants to keep the medications as they are.? Patient denies any SI or HI as he has consistently throughout this admission. Patient is returning to live with his mother who is supportive.? He has outpatient services already.? Tolerating medications well including increase Seroquel.? Patient is not in imminent risk for harm to self or others and his request for discharge honored. ?? Time spent discussing smoking cessation with patient: 3 to 10 minutes Status at Discharge Functional status at discharge: independent ambulation Overall status at discharge: patient is back to baseline Time Spent with Patient Time attestation: Total time spent providing and/or coordinating discharge services: Time spent: Less than 30 minutes Discharge Plan Discharge Anticipated Discharge Date/Time: 07/09/22 13:00 Patient Disposition: Home, Self-Care Discharge Diagnosis: Bipolar disorder, type II, recurrent, in full remission Referrals: [facility] [Other] - 1 Week (Referral for outpatient therapist Patient reports he will follow-up with [facility] following discharge.) [facility] [Other] - 08/23/22 12:00 pm (Outpatient psychiatry appointment.) [facility]patient treatment ([facility]) [Other] - 07/12/22 9:30 am (Referral to [facility] for substance use treatment Patient to follow-up following discharge from [facility] regarding intake and start date for program.) Orlando Mahmood III, MD [Physician] - 1 Week (LEFT MESSAGE TO GIVE US A CALL BACK FOR FOLLOW-UP APPT. PLEASE CALL THEM TO VERIFY APPT DATE AND TIME. ) Discharge Medications: New nicotine 21 mg/24 hr Patch 24 Hour 21 mg transdermal DAILY 28 Days Qty: 28 0RF nicotine (polacrilex) 2 mg Gum 2 mg buccal Q2H PRN (Reason: Nicotine Cravings) 30 Days Qty: 100 0RF quetiapine 300 mg Tablet 300 mg PO BEDTIME 30 Days Qty: 30 1RF Continued fluoxetine 40 mg capsule 1 cap PO DAILY Hold Instructions: Resume on 07/05/22. metformin 500 mg tablet 1 tab PO BID gabapentin 600 mg tablet 1 tab PO TID Hold Instructions: Resume on 07/05/22. clonazepam 1 mg tablet 1 tab PO TID Hold Instructions: Resume on 07/05/22. gabapentin 300 mg capsule 1 cap PO BEDTIME Hold Instructions: Resume on 07/05/22. Rx Instructions: takes with 600 mg dose at bedtime methadone [Methadone Intensol] 10 mg/mL Concentrate 135 mg PO DAILY albuterol sulfate [ProAir HFA] 90 mcg/actuation HFA aerosol inhaler 2 puff inhalation QID PRN (Reason: wheezing) fluticasone propionate [Flovent HFA] 110 mcg/actuation HFA aerosol inhaler 1 puff inhalation BID mirtazapine 7.5 mg Tablet 7.5 mg PO BEDTIME Qty: 30 0RF Hold Instructions: Resume on 07/05/22. clonidine HCl 0.1 mg tablet 0.1 mg PO TID Qty: 90 0RF Hold Instructions: Resume on 07/05/22. Discontinued quetiapine 100 mg tablet 1 - 2 tab PO BEDTIME PRN (Reason: Anxiety) Hold Instructions: Resume on 07/05/22. Discharge Orders: Discharge Order (Routine); Ordered 07/02/22 Ordered By: Laura Hui Diet: Diabetic diet Activity on Discharge: As tolerated Stand Alone Forms: Patient Portal Discharge page, Community Support Care Plan Goals: Maintain mood and safe behaviors Take medications as prescribed Continue to pursue sobriety Practice coping skills Continue with outpatient providers and reach out to them as needed Health Concerns: Mood stability and behaviors Diabetes Sobriety Plan of Treatment: Follow up with your PCP, psychiatric provider and other outpatient providers regarding above concerns Take medications as prescribed Assessment: Risk assessment at time of discharge:? Patient was interviewed prior to discharge and found to be fully oriented and without any SI or HI. Patient has insight and demonstrates good judgment in terms of wanting to pursue treatment. Patient is not in imminent risk of harm to self or others and has a safety plan that includes presenting to the closest ER or calling 911 if feeling unsafe.? Patient has been observed closely by nursing and unit staff throughout admission; patient has not engaged in any behaviors that suggest dangerousness to self or others and has demonstrated appropriate behaviors and impulse control Discharge Date/Time: 07/09/22 12:53
[2022-07-09] MEDS: Nicotine Polacrilex 2 MG GUM BUCCAL (11:20)
== END 2022-07-09 12:53 | disposition home or self-care (01) | DRG 751 ==
PROVIDERS: Admitting Provider Psychiatry & Neurology Psychiatry; Visit Provider Psychiatry & Neurology Psychiatry
DX: F33.2 Major depressive disorder, recurrent severe without psychotic features (principal); R45.851 Suicidal ideations; F11.20 Opioid dependence, uncomplicated; F14.20 Cocaine dependence, uncomplicated; F17.210 Nicotine dependence, cigarettes, uncomplicated; Z71.6 Tobacco abuse counseling; Z88.7 Allergy status to serum and vaccine; Z91.51 Personal history of suicidal behavior; Z56.0 Unemployment, unspecified; Z79.51 Long term (current) use of inhaled steroids; Z79.84 Long term (current) use of oral hypoglycemic drugs; Z79.899 Other long term (current) drug therapy
CPT/HCPCS: 82947

== ENCOUNTER 2022-12-05 22:46 | Inpatient (IN) | payer OTHER, SELFPAY ==
--- NOTE | 2022-12-05 | ECG_ITS ---
Test Reason : CHEST PAIN Blood Pressure : / mmHG Vent. Rate : 083 BPM Atrial Rate : 083 BPM P-R Int : 146 ms QRS Dur : 080 ms QT Int : 348 ms P-R-T Axes : 055 027 021 degrees QTc Int : 408 ms Normal sinus rhythm Normal ECG When compared with ECG of 02-JUL-2022 12:52, Vent. rate has increased BY 28 BPM Referred By: Generic ED Physician Electronically Signed By:CRISSY GONZALES
--- NOTE | ~2022-12-05 | XR_ITS ---
EXAMINATION: XR FOREARM, RIGHT CLINICAL INFORMATION: Right forearm cellulitis COMPARISON: January 30, 2021 TECHNIQUE: AP and lateral views of the right forearm were obtained. FINDINGS: Patient status post old distal right radial fracture which has healed. There is also nonunited fracture of the ulnar styloid which is old. Edema is seen throughout the soft tissues of the right forearm and dorsum of the wrist. No acute fracture or destructive bony lesion appreciated. No periosteal new bone formation. No radiopaque foreign body. No gas within the soft tissues. No elbow effusion appreciated. XR/XR forearm RT 2V IMPRESSION: No acute fracture or dislocation of the right forearm. Diffuse edema within the soft tissues. Old healed distal radial fracture and nonunited fracture of the ulnar styloid.
--- NOTE | ~2022-12-05 | XR_ITS ---
EXAMINATION: XR CHEST CLINICAL INFORMATION: Shortness of breath COMPARISON: 06/30/2022 TECHNIQUE: Frontal view of the chest was obtained. FINDINGS: The lungs are clear with no focal consolidation. No evidence of pneumothorax, pulmonary edema, or pleural effusions. The cardiomediastinal silhouette is unremarkable. No acute osseous findings. XR/XR chest 1V IMPRESSION: No acute cardiopulmonary findings.
--- NOTE | ~2022-12-05 | US_ITS ---
EXAMINATION: US VENOUS WITH DOPPLER UPPER EXTREMITY, RIGHT CLINICAL INFORMATION: Pain and swelling COMPARISON: None available. TECHNIQUE: Ultrasound of the upper extremity is performed using compression sonography and color and pulse Doppler flow with assessment of augmentation of flow. There is also imaging and Doppler assessment of the jugular and subclavian veins. Spectral analysis with color-flow imaging is performed. FINDINGS: Respiratory variation, normal compression, and augmented flow are noted throughout the upper extremity including the axillary, brachial, cubital, and radial and ulnar veins. There is normal flow in the internal jugular and subclavian veins. There is no visible deep or superficial thrombophlebitis. There are multiple enlarged lymph nodes in the right axilla and upper arm with the largest lymph node measuring 3.1 x 1.5 x 1.5 cm and 2.5 x 1.0 x 2.4 cm. US/US venous duplex UE RT IMPRESSION: No DVT demonstrated in the right upper extremity. Multiple larger right axillary and a a prominent prominent lymph nodes. One of the lymph node is homogeneous in echotexture without any echogenic medulla and may represent inflammatory node. Correlate with clinical exam.
--- NOTE | ~2022-12-05 | CT_ITS ---
EXAMINATION: CT HAND WITHOUT CONTRAST, RIGHT CLINICAL INFORMATION: Right hand to elbow redness and swelling. Evaluate for abscess. COMPARISON: Right wrist radiographs dated 05/16/2008. TECHNIQUE: Contiguous axial CT images of the right hand were obtained without contrast. Multiplanar reformats were provided and reviewed. This CT examination was performed using dose optimization techniques as appropriate, variously including the following: *Automated exposure control *Adjustment of mA and/or kV according to patient size (this includes techniques or standardized protocols for targeted exams where dose is matched to indication/reason for exam; i.e. extremities or head) *Use of iterative reconstruction technique DLP: 139 mGy-cm FINDINGS: Corticated, unfused ulnar styloid which could represent an accessory ossicle versus remote, unfused fracture fragment. No acute fracture or dislocation. Normal carpal alignment. No joint space narrowing or marginal osteophytes. No concerning lytic or blastic osseous lesion. No cortical erosion or periosteal reaction to suggest acute osteomyelitis. Prominent circumferential subcutaneous edema with associated skin thickening, likely indicating cellulitis. No discrete, organized fluid collection, however, evaluation somewhat limited without IV contrast. No abnormal soft tissue mass. The visualized flexor and extensor tendons are grossly intact, however, evaluation is limited on CT examination. CT/CT hand RT wo IV con IMPRESSION: 1. Prominent circumferential subcutaneous edema with associated skin thickening, likely indicating cellulitis. No discrete, organized fluid collection, however, evaluation somewhat limited without IV contrast. 2. No acute osseous abnormality. No cortical erosion or periosteal reaction to suggest acute osteomyelitis.
[2022-12-05 22:58] VITALS: BP 101/49; PULSE 86; RESP 16; TEMP 38.3; O2SAT 96; BMI 26.9
[2022-12-06] VITALS (15 sets, daily range): BP systolic 84–114; BP diastolic 38–70; PULSE 45–71; RESP 10–20; TEMP 36–36.9; O2SAT 95–100; BMI 26.2
--- NOTE | 2022-12-06 00:13 | ED.SKABFB ---
HPI - Skin/Abscess/Foreign Bdy General Chief complaint: Skin/Abscess/Foreign Body Stated complaint: chest pains/ might be septic? Time Seen by Provider: 12/05/22 23:47 History of Present Illness HPI narrative: Patient is a 32-year-old male with a long history of polysubstance abuse patient injects heroin. History of diabetes. Presented today with having redness over bilateral arm having fever having generalized malaise having chest pain with the fever. The chest pain is nonspecific it is mid chest it is nonradiating. No diaphoresis. Positive for feeling weak and tired. Patient from only. Related Data Home Medications Medication Instructions Recorded Confirmed clonazepam 1 mg tablet 1 tab PO TID 01/30/21 06/30/22 fluoxetine 40 mg capsule 1 cap PO DAILY 01/30/21 06/30/22 gabapentin 300 mg capsule 1 cap PO BEDTIME 01/30/21 06/30/22 gabapentin 600 mg tablet 1 tab PO TID 01/30/21 06/30/22 metformin 500 mg tablet 1 tab PO BID 01/30/21 06/30/22 methadone 10 mg/mL oral 135 mg PO DAILY 01/30/21 05/26/22 concentrate (Methadone Intensol) albuterol sulfate 90 mcg/actuation 2 puff inhalation QID PRN wheezing 02/22/22 06/30/22 aerosol inhaler (ProAir HFA) fluticasone propionate 110 1 puff inhalation BID 02/22/22 06/30/22 mcg/actuation HFA aerosol inhaler (Flovent HFA) Previous Rx's Medication Instructions Recorded clonidine HCl 0.1 mg tablet 0.1 mg PO TID #90 tabs 03/02/22 mirtazapine 7.5 mg tablet 7.5 mg PO BEDTIME #30 tabs 03/02/22 nicotine (polacrilex) 2 mg gum 2 mg buccal Q2H PRN Nicotine 07/09/22 Cravings 30 days #100 ea nicotine 21 mg/24 hr daily 21 mg transdermal DAILY 28 days 07/09/22 transdermal patch #28 ea quetiapine 300 mg tablet 300 mg PO BEDTIME 30 days #30 tabs 07/09/22 Allergies Allergy/AdvReac Type Severity Reaction Status Date / Time Pertussis Vaccines Allergy Mild HIVES Verified 12/05/22 22:58 [PERTUSSIS VACCINES] Review of Systems Review of Systems: Positive redness to bilateral forearms PMFSH Past Medical History Attestation statement: The following information was validated with the patient. Medical History Anxiety Asthma Cocaine use with cocaine-induced disorder Depression Diabetes Diabetes IVDU (intravenous drug user) Major depressive disorder, recurrent severe without psychotic features Opiate dependence, continuous Family History Family History Father Heart disease Social History Social History Household Members: Family Household Members Other:: Mother and brother Housing: House Do you presently have visiting nurse or other home services: No Alcohol intake: never Patient Tobacco Use Status: Current everyday Tobacco user Tobacco use type: Cigarette Cigarette Packs Per Day: 30 Cigarettes Per Day: 600.0 Years Smoked: 16 Smoked in Last 30 Days: Yes e-Cigarette/Vaping Use: Currently Using Second Hand Smoke Exposure: Yes Use of substances other than those prescribed or required for medical reasons: Yes Substance Use Type: Crack/Cocaine, Heroin and IV Drugs Substance Use Frequency: Chronic Longstanding Last Used Substance: Just Prior to Admission Any prior treatment program specific to substance use: No Advance Directives: No Advance Directives Information Provided: No Advance Directives Date on File: 01/30/21 service: No Current occupational status: unemployed Sexual orientation: Straight/Heterosexual Physical Exam Vital Signs: Vital Signs: Last Vital Signs Temp 98.5 F 12/06/22 00:19 Pulse 67 12/06/22 06:58 Resp 13 12/06/22 05:29 BP 91/48 L 12/06/22 06:58 Pulse Ox 100 12/06/22 06:58 O2 Del Method Room Air 12/06/22 06:58 BMI result Body Mass Index 26.9 Appearance: Alert. Oriented X3. No acute distress. Eyes: Pupils equal, round and reactive to light. ENT: Pharynx normal. Neck: Normal inspection. Neck supple. No lymph nodes noted. No crepitus CVS: Normal heart rate and rhythm. Pulses normal. Normal S1 and S2 Respiratory: No respiratory distress. Breath sounds normal. No Wheezing. No rales Abdomen: Soft and nontender. No rigidity. No distention. good BS x4 Skin/ext : Diffuse redness warm to touch over bilateral forearms with multiple track ratliff ulcers noted. No gross fluctuance noted. Bilateral lower extremity positive redness warmth to touch. Distal pulses intact. Sensation intact over the median radial ulnar nerve, axillary nerve. Sensation over the lower extremity intact. Pulses 2+ at radial 2+ at dorsalis pedis. Extremities: Neurovascular intact to all extremities. No Lacerations. Neuro: Oriented X 3. No motor deficit. No sensory deficit. Moving all extermities. No slurred speech Medications Administered Discontinued Medications Generic Name Dose Route Start Last Admin Trade Name Freq PRN Reason Stop Dose Admin Acetaminophen 975 mg 12/06/22 00:12 12/06/22 00:26 Acetaminophen 325 Mg Tablet PO 12/06/22 00:13 Not Given ONCE ONE Sodium Chloride 1,000 mls @ 999 mls/hr 12/06/22 00:15 12/06/22 00:27 Ns IV 12/06/22 01:15 Not Given .Q1H1M SUKHDEEP Piperacillin Sod/Tazobactam 100 mls @ 200 mls/hr 12/06/22 00:10 12/06/22 00:56 Sod 4.5 gm/ Sodium Chloride IV 12/06/22 00:39 Infused ONCE ONE Infusion Sodium Chloride 2,475 mls @ 2,475 mls/hr 12/06/22 00:23 12/06/22 03:33 Ns 30 ml/kg infuse over 1 hr (2475 ml) 12/06/22 01:22 Infused IV Infusion .Q1H STA Vancomycin HCl 2,000 mg in 500 mls @ 250 mls/hr 12/06/22 00:45 12/06/22 03:35 Vancomycin/Ns IV 12/06/22 02:44 Infused ONCE ONE Infusion Protocol Medical Decision Making Medical Decision Making MDM Narrative: Positive fever with evidence of extensive cellulitis over bilateral forearm. Multiple ulcers. History of polysubstance abuse. Cultures are obtained. Antibiotics will be started. Most likely differential includes cellulitis. Other diagnosis include endocarditis. Pneumonia. No evidence of meningitis. No coughing or congestion. Will however get a chest x-ray as well. Urine is also pending. PATIENT'S FLU RSV COVID WERE ALL NEGATIVE. Lactate is less than 2. Very sleepy with obvious signs of infection in bilateral arms. Patient's blood pressure was low but patient's heart rate is in the 60s range he is very comfortable sleeping without any distress. No evidence for sepsis. My interpretation patient's chest x-ray was grossly negative for any acute evidence of pneumonia. No evidence for pneumothorax no evidence for rib fracture. Patient's flu RSV COVID were negative. My interpretation patient's EKG showed a sinus rhythm heart rate is 80 MN QRS QT within normal limits no acute ST segment elevation. Patient history not consistent with ACS. His case was discussed with the hospitalist team given the extensive nature patient has cellulitis. Differential Diagnosis Differential Diagnoses: The differential diagnosis associated with the presentation includes Cellulitis, pneumonia, viral infection Lab Data MDM Lab Attestation statement: I reviewed the patient's lab results. 12/06/22 00:12 12/06/22 00:12 Labs: Lab Results 12/06/22 12/06/22 12/06/22 Range/Units 00:12 00:12 00:12 WBC 8.7 (4.8-10.8) X10*3/uL RBC 4.49 L (4.60-5.80) X10*6/uL Hgb 9.1 L D (14.0-18.0) g/dl Hct 30.6 L (42.0-52.0) % MCV 68.2 L (80.0-98.0) fL MCH 20.3 L (27.0-33.0) pg MCHC 29.7 L (31.0-36.0) g/dl RDW 17.2 H (11.0-16.0) % Plt Count 391 D (160-400) X10*3/uL MPV 9.3 L (9.4-12.4) fL Immature Gran % (Auto) 0.3 (0.0-0.4) % Neut % (Auto) 75.3 H (45-73) % Lymph % (Auto) 16.3 L (20-40) % Hardin % (Auto) 7.4 (2-11) % Eos % (Auto) 0.5 (0-4) % Baso % (Auto) 0.2 (0-2) % Lymph # (Auto) 1.4 (1.2-4.9) X10*3/uL Hardin # (Auto) 0.7 (0.1-1.2) X10*3/uL Eos # (Auto) 0.0 (0.0-0.4) X10*3/uL Baso # (Auto) 0.0 (0.0-0.2) X10*3/uL Abs Immat Gran (auto) 0.03 (0.00-0.03) X10*3/uL Absolute Neuts (auto) 6.6 (2.0-8.3) x10*3/uL Absolute Nucleated RBC 0.000 (0.0-0.012) X10*3/uL Nucleated RBC % (auto) 0.0 (0.0-0.2) /100WBC Sodium 139 (135-145) mmol/L Potassium 4.1 (3.3-5.1) mmol/L Chloride 103 (96-108) mmol/L Carbon Dioxide 28 (22-29) mmol/L Anion Gap 12 (12-20) BUN 13 (9-16) mg/dL Creatinine 0.96 (0.5-1.4) mg/dL Estim Creat Clear Calc 110.4 Estimated GFR > 60 Random Glucose 153 H (60-115) mg/dL Lactic Acid (0.5-2.0) mmol/L Calcium 9.8 D (8.4-10.2) mg/dL Total Bilirubin 0.3 (0.0-1.0) mg/dL AST 10 (5-37) U/L ALT 10 (0-40) U/L Alkaline Phosphatase 71 (39-117) U/L Troponin I High Sens < 2.7 (<3.5-35.0) ng/L Total Protein 7.3 (6.5-8.0) g/dL Albumin 3.7 (3.5-5.0) g/dL Influenza Type A (PCR) (Negative) Influenza Type B (PCR) (Negative) RSV RNA Qual (PCR) (Negative) SARS-CoV-2 RNA (RT-PCR) (Negative) 12/06/22 12/06/22 Range/Units 00:12 01:31 WBC (4.8-10.8) X10*3/uL RBC (4.60-5.80) X10*6/uL Hgb (14.0-18.0) g/dl Hct (42.0-52.0) % MCV (80.0-98.0) fL MCH (27.0-33.0) pg MCHC (31.0-36.0) g/dl RDW (11.0-16.0) % Plt Count (160-400) X10*3/uL MPV (9.4-12.4) fL Immature Gran % (Auto) (0.0-0.4) % Neut % (Auto) (45-73) % Lymph % (Auto) (20-40) % Hardin % (Auto) (2-11) % Eos % (Auto) (0-4) % Baso % (Auto) (0-2) % Lymph # (Auto) (1.2-4.9) X10*3/uL Hardin # (Auto) (0.1-1.2) X10*3/uL Eos # (Auto) (0.0-0.4) X10*3/uL Baso # (Auto) (0.0-0.2) X10*3/uL Abs Immat Gran (auto) (0.00-0.03) X10*3/uL Absolute Neuts (auto) (2.0-8.3) x10*3/uL Absolute Nucleated RBC (0.0-0.012) X10*3/uL Nucleated RBC % (auto) (0.0-0.2) /100WBC Sodium (135-145) mmol/L Potassium (3.3-5.1) mmol/L Chloride (96-108) mmol/L Carbon Dioxide (22-29) mmol/L Anion Gap (12-20) BUN (9-16) mg/dL Creatinine (0.5-1.4) mg/dL Estim Creat Clear Calc Estimated GFR Random Glucose (60-115) mg/dL Lactic Acid 1.4 (0.5-2.0) mmol/L Calcium (8.4-10.2) mg/dL Total Bilirubin (0.0-1.0) mg/dL AST (5-37) U/L ALT (0-40) U/L Alkaline Phosphatase (39-117) U/L Troponin I High Sens (<3.5-35.0) ng/L Total Protein (6.5-8.0) g/dL Albumin (3.5-5.0) g/dL Influenza Type A (PCR) NEGATIVE (Negative) Influenza Type B (PCR) NEGATIVE (Negative) RSV RNA Qual (PCR) NEGATIVE (Negative) SARS-CoV-2 RNA (RT-PCR) NEGATIVE (Negative) Independent Interpretation I performed an independent interpretation of an: EKG Interpretation: Sinus rhythm heart rate is 80 MN QRS QTC within normal limits as no acute ST segment elevation. Radiology Impression Discussion of test interpretation with radiology: I have reviewed the radiologist's reading. Independent Historian Clinical information obtained from an independent historian. History obtained from or confirmed by: EMS External Record Review External record reviewed: Inpatient record Chronic Conditions Polysubstance abuse Social Determinants Patient?s care significantly limited by Social Determinants of Health including: Inadequate housing Drug addiction Critical Care Time Critical Care Time Critical Care Time: Yes Total Critical Care Time: 40 Attestation: I have personally provided 40 minutes of critical care time exclusive of time spent on separately billable procedures. Time includes review of lab data, radiology results, discussion with consultants, and monitoring for potential decompensation. Interventions were performed as documented above Discharge Plan Discharge Clinical Impression: Opioid use disorder, Cellulitis Patient Disposition: Admitted As Inpatient Prescriptions: No Action fluoxetine 40 mg capsule 1 cap PO DAILY Hold Instructions: Resume on 07/05/22. metformin 500 mg tablet 1 tab PO BID gabapentin 600 mg tablet 1 tab PO TID Hold Instructions: Resume on 07/05/22. clonazepam 1 mg tablet 1 tab PO TID Hold Instructions: Resume on 07/05/22. gabapentin 300 mg capsule 1 cap PO BEDTIME Hold Instructions: Resume on 07/05/22. Rx Instructions: takes with 600 mg dose at bedtime methadone [Methadone Intensol] 10 mg/mL Concentrate 135 mg PO DAILY nicotine 21 mg/24 hr Patch 24 Hour 21 mg transdermal DAILY 28 Days Qty: 28 0RF nicotine (polacrilex) 2 mg Gum 2 mg buccal Q2H PRN (Reason: Nicotine Cravings) 30 Days Qty: 100 0RF quetiapine 300 mg Tablet 300 mg PO BEDTIME 30 Days Qty: 30 1RF albuterol sulfate [ProAir HFA] 90 mcg/actuation HFA aerosol inhaler 2 puff inhalation QID PRN (Reason: wheezing) fluticasone propionate [Flovent HFA] 110 mcg/actuation HFA aerosol inhaler 1 puff inhalation BID mirtazapine 7.5 mg Tablet 7.5 mg PO BEDTIME Qty: 30 0RF Hold Instructions: Resume on 07/05/22. clonidine HCl 0.1 mg tablet 0.1 mg PO TID Qty: 90 0RF Hold Instructions: Resume on 07/05/22.
[2022-12-06 00:24] LABS: Basophils Percent Auto 0.2 % (0-2); Eosinophils Percent Auto 0.5 % (0-4); Hematocrit 30.6 % (42.0-52.0); Hemoglobin 9.1 g/dl (14.0-18.0); Imm Gran Abs Auto 0.03 X10*3/uL (0.00-0.03); Imm Gran Pct Auto 0.3 % (0.0-0.4); Lymphocytes Absolute Auto 1.4 X10*3/uL (1.2-4.9); Lymphocytes Percent Auto 16.3 % (20-40); MANUAL DIFF FLAG NO; Mean Corpuscular HGB Conc 29.7 g/dl (31.0-36.0); Mean Corpuscular Hemoglobin 20.3 pg (27.0-33.0); Mean Corpuscular Volume 68.2 fL (80.0-98.0); Mean Platelet Volume 9.3 fL (9.4-12.4); Monocytes Absolute Auto 0.7 X10*3/uL (0.1-1.2); Monocytes Percent Auto 7.4 % (2-11); Neutrophils Absolute Auto 6.6 x10*3/uL (2.0-8.3); Neutrophils Percent Auto 75.3 % (45-73); Platelet Count 391 X10*3/uL (160-400); Red Blood Count 4.49 X10*6/uL (4.60-5.80); Red Cell Distribution Width 17.2 % (11.0-16.0); White Blood Count 8.7 X10*3/uL (4.8-10.8)
[2022-12-06] MEDS: Piperacillin Sodium/Tazobactam 4.5 GM in 0.9 % Sodium Chloride 100 ML IV (00:25)
[2022-12-06] MEDS: 0.9 % Sodium Chloride 2,475 ML 2475 ML IV (00:26)
[2022-12-06 00:34] LABS: Lactic Acid 1.4 mmol/L (0.5-2.0)
[2022-12-06 00:39] LABS: Alanine Aminotransferase 10 U/L (0-40); Albumin Level 3.7 g/dL (3.5-5.0); Alkaline Phosphatase 71 U/L (39-117); Anion Gap 12 (12-20); Aspartate Amino Transferase 10 U/L (5-37); Bilirubin Total 0.3 mg/dL (0.0-1.0); Blood Urea Nitrogen 13 mg/dL (9-16); Calcium 9.8 mg/dL (8.4-10.2); Carbon Dioxide 28 mmol/L (22-29); Chloride 103 mmol/L (96-108); Creatinine Clr Calc Pharmacy 110.4; Estimated Glomerular Filt Rate > 60; Glucose Random 153 mg/dL (60-115); Potassium 4.1 mmol/L (3.3-5.1); Sodium 139 mmol/L (135-145); Total Protein 7.3 g/dL (6.5-8.0)
[2022-12-06 00:45] LABS: Troponin-I High Sensitivity < 2.7 ng/L (<3.5-35.0)
[2022-12-06] MEDS: vancomycin/NS 2,000 MG/500 ML PLAST..BAG 250 MG IV (00:59)
[2022-12-06 02:15] LABS: Influenza A PCR NEGATIVE (Negative); Influenza B PCR NEGATIVE (Negative); Resp Syncy Virus RNA Qual PCR NEGATIVE (Negative); SARS COV2 PCR INHOUSE NEGATIVE (Negative)
--- NOTE | 2022-12-06 04:06 | PC.NURSE ---
Addendum entered by Kellie Ochoa 12/06/22 04:08: Provider Dr. Haynes notified and aware. Original Note: Pt A&O to tactile stimuli, pale appearing. BP noted to be 89/40, manual BP obtained 86/38, Pt transdelenberg. IV fluids running as ordered.
--- NOTE | 2022-12-06 07:00 | PC.NURSE ---
Pt awakens to verbal stimuli, Pt sat up and given PO fluids and sandwich given, tolerating well.
--- NOTE | 2022-12-06 09:00 | P.HPHOSP_ITS ---
History of Present Illness Date of Service: 12/06/22 Chief Complaint: Redness on our arms 32-year-old male with a history anxiety, depression diabetes, asthma, IVDU? on methadone presents to the emergency with bilatareal arm pain, swelling and redness for days to weeks in areas of attempted injection. (see pictures below). He reports fever and noted to have a temp of 101. Normal WBC, he also reported vague chest pain, no sob. BP is low at 89/38 but assymptomatic at this time--prior record show chronic hypotension Review of Systems Review of Systems: Gen: + fever Resp: no sob, no cough CV: no chest, no FRANKS, no leg edema GI: No n/v, no abd pain Neuro: No confusion redness of amrs [facility] Medical History Anxiety Asthma Cocaine use with cocaine-induced disorder Depression Diabetes Diabetes IVDU (intravenous drug user) Major depressive disorder, recurrent severe without psychotic features Opiate dependence, continuous Family History Father Heart disease Social History Household Members: Family Household Members Other:: Mother and brother Housing: House Do you presently have visiting nurse or other home services: No Alcohol intake: never Patient Tobacco Use Status: Current everyday Tobacco user Tobacco use type: Cigarette Cigarette Packs Per Day: 1 Cigarettes Per Day: 20.0 Years Smoked: 15 e-Cigarette/Vaping Use: Currently Using Second Hand Smoke Exposure: Yes Substance Use Type: Crack/Cocaine and Opiates Advance Directives Date on File: 01/30/21 service: No Current occupational status: unemployed Sexual orientation: Straight/Heterosexual Meds Allergies Allergy/AdvReac Type Severity Reaction Status Date / Time Pertussis Vaccines Allergy Mild HIVES Verified 12/05/22 22:58 [PERTUSSIS VACCINES] Home Medications Medication Instructions Recorded Confirmed Last Taken Type clonazepam 1 mg tablet 1 tab PO TID 01/30/21 12/06/22 12/05/22 History fluoxetine 40 mg capsule 1 cap PO DAILY 01/30/21 12/06/22 12/05/22 History gabapentin 300 mg capsule 1 cap PO BEDTIME 01/30/21 12/06/22 2 Days Ago History ~02/20/22 gabapentin 600 mg tablet 1 tab PO TID 01/30/21 12/06/22 2 Days Ago History ~02/20/22 methadone 10 mg/mL oral 135 mg PO DAILY 01/30/21 12/06/22 12/05/22 History concentrate (Methadone Intensol) albuterol sulfate 90 mcg/actuation 2 puff inhalation QID PRN wheezing 02/22/22 12/06/22 Unknown History aerosol inhaler (ProAir HFA) quetiapine 200 mg tablet 200 mg PO BEDTIME 12/06/22 12/06/22 Unknown History Physical Exam Vital Signs and Narrative: Vital Signs: Last Vital Signs Temp 98.5 F 12/06/22 08:46 Pulse 59 12/06/22 08:46 Resp 12 12/06/22 08:46 BP 89/38 L 12/06/22 08:46 Pulse Ox 97 12/06/22 08:46 O2 Del Method Room Air 12/06/22 08:46 BMI result Body Mass Index 26.9 Const: Other: General: AO X 3, no acute distress Resp: CTA bilateral CVS: S1,S2,RRR GI: +BS, NT, no distention Skin: see picture Neuro: motor grossly intact Psych: appropriate affect Results Labs 12/06/22 00:12 12/06/22 00:12 Labs: Laboratory Results - last 24 hr 12/06/22 12/06/22 12/06/22 00:12 00:12 00:12 MCV 68.2 L MCH 20.3 L MCHC 29.7 L RDW 17.2 H Plt Count 391 D MPV 9.3 L Immature Gran % (Auto) 0.3 Neut % (Auto) 75.3 H Lymph % (Auto) 16.3 L Anson % (Auto) 7.4 Eos % (Auto) 0.5 Baso % (Auto) 0.2 Lymph # (Auto) 1.4 Anson # (Auto) 0.7 Eos # (Auto) 0.0 Baso # (Auto) 0.0 Abs Immat Gran (auto) 0.03 Absolute Neuts (auto) 6.6 Absolute Nucleated RBC 0.000 Nucleated RBC % (auto) 0.0 Anion Gap 12 Estim Creat Clear Calc 110.4 Estimated GFR > 60 Random Glucose 153 H Lactic Acid Calcium 9.8 D Total Bilirubin 0.3 AST 10 ALT 10 Alkaline Phosphatase 71 Troponin I High Sens < 2.7 Total Protein 7.3 Albumin 3.7 Influenza Type A (PCR) Influenza Type B (PCR) RSV RNA Qual (PCR) SARS-CoV-2 RNA (RT-PCR) 12/06/22 12/06/22 00:12 01:31 MCV MCH MCHC RDW Plt Count MPV Immature Gran % (Auto) Neut % (Auto) Lymph % (Auto) Anson % (Auto) Eos % (Auto) Baso % (Auto) Lymph # (Auto) Anson # (Auto) Eos # (Auto) Baso # (Auto) Abs Immat Gran (auto) Absolute Neuts (auto) Absolute Nucleated RBC Nucleated RBC % (auto) Anion Gap Estim Creat Clear Calc Estimated GFR Random Glucose Lactic Acid 1.4 Calcium Total Bilirubin AST ALT Alkaline Phosphatase Troponin I High Sens Total Protein Albumin Influenza Type A (PCR) NEGATIVE Influenza Type B (PCR) NEGATIVE RSV RNA Qual (PCR) NEGATIVE SARS-CoV-2 RNA (RT-PCR) NEGATIVE Imaging Radiologist's Impressions: Impressions Chest X-Ray 12/06/22 00:26 IMPRESSION: No acute cardiopulmonary findings. Assessment and Plan (1) Cellulitis of arm: Status: Acute (2) Opiate dependence, continuous: Status: Acute Plan 32-year-old male with a history anxiety, depression diabetes, asthma, IVDU? on methadone presents to the emergency with bilatareal left arm pain, swelling and redness consistent with cellulitis Cellulitis of both oneyda from IV drug injection and diabetes, No sepsis - IV vancomycin and Zosyn - follow blood cultures - Pain control with Toradol or Oxycodone -id consult if not improving IVDU - continue home dose of methadone -? p.r.n. Atarax for withdrawal symptoms -hold clonidine due to low BP -? consult to Addiction Medicine HypOtension--element of chronicity, not due to sepsis -hold clonidine, IVF, Anemia--acute, no source of blood loss, monitor ?diabetes ?non compliant with diabetic diet or metformin - resume metformin - check HbA1c - SSI, POC ?tobacco dependence ?smoking cessation has been advised -NRT anxiety/depression -continue home clonazepam, fluoxetine, seroquel, mirtazapine -will check EKG to assess Qtc dvt ppx - lovenox code status - full code Admit for at least 2 midngiths for IV Abx for cellulitis in pt with IV drug use and diabetes, await cultures Time Spent With Patient Time: Total time managing care of this patient today ____ minutes. Quality Stroke Does the patient have a stroke diagnosis?: No VTE Prior VTE?: No VTE Risk Level:: Medical - moderate - high VTE Device Contraindication: Treatment Not Indicated VTE Drug Contraindication: N/A - Med Ordered
--- NOTE | 2022-12-06 10:24 | PC.NURSE ---
Spoke with Dania at [facility] and did a dose verification for patient.
--- NOTE | 2022-12-06 10:25 | PHA.PROG ---
Admission Date/Time: Indication: Cellulitis, IVDU Weight in k.5 kg Adjusted body weight in K.42 kg Ocate body weight in K.7 kg Obesity Dosing Indication % IBW: 116% Serum Creatinine - Last 168 Hours 12/06/22 00:12 Creatinine 0.96 Estimated CrCl and GFR - Last 168 Hours 12/06/22 00:12 Estim Creat Clear Calc 110.4 Estimated GFR > 60 Vancomycin Loading Dose: 2000 mg Current Vancomycin Dosing Regimen: 1250 mg Q12H Date and Time for next Vancomycin Level to be drawn: 12/07 @ 1100 Pharmacist Comments on Vancomycin Plan: patient received an adequate load dose vancomycin 2000 mg in the ER 12/06 @ 0012. Maintenance dose vancomycin 1250 mg Q12H is scheduled to start 12/06 @ 1300. Expected AUC is 523 with a trough of 15.8. Level is scheduled to be drawn prior to 4th dose on 12/07 @1100. Pharmacy will monitor level daily. Kathy Storey PharmD Vancomycin dosing will take advantage of [employer] as a clinical decision support tool that uses Bayesian modeling to calculate individual patient's pharmacokinetic parameters and forecast the patient's drug concentration time course with the target goal AUC 24 range of 400 - 600 mg/L/hr.
[2022-12-06] MEDS: 0.9 % Sodium Chloride 1,000 ML 999 ML IV (10:42)
[2022-12-06] MEDS: Enoxaparin Sodium 40 MG/0.4 ML SYRINGE SUBCUT (10:45)
--- NOTE | 2022-12-06 10:45 | MHC.RECOVRN ---
Received Addiction Medicine consult. Chart reviewed. Attempted to meet with pt, pt soundly sleeping, does not wake to verbal stimuli. Will continue to follow.
[2022-12-06] MEDS: Piperacillin Sodium/Tazobactam 3.375 GM in 0.9 % Sodium Chloride 50 ML IV ×3 (10:48→21:30)
--- NOTE | 2022-12-06 12:07 | PHA.MEDREC ---
Pharmacy Consult ? Medication Reconciliation Pharmacy has completed the medication reconciliation. Patient states he is on 200 mg seroquel at bedtime. Claim history shows several different doses so 200 mg dose was entered as home dose. He states he gets 135 mg methadone through [facility] and last dose was 12/05.
[2022-12-06] MEDS: vancomycin HCL 1,250 MG in 0.9 % Sodium Chloride 250 ML 166.67 MG IV (13:37)
--- NOTE | 2022-12-06 14:01 | MHC.RECOVRN ---
Met with pt in ED9 to check in and provide support. Pt sitting in bed, eyes closed, wakes to voice. Pt appears slightly diaphoretic, pale, tired. Pt reports using heroin, 1 bundle daily, IV, as well as cocaine 1-1.5 grams daily, IV. Pt goes to [facility], reports 135 mg daily. Pt requesting scheduled daily medications. Denies questions for t/w at this time. Will continue to follow.
[2022-12-06] MEDS: FLUoxetine HCl 20 MG CAPSULE 40 MG PO (15:39)
[2022-12-06] MEDS: Nicotine 21 MG PATCH.TD24 TRANSDERMA (15:39)
[2022-12-06] MEDS: Gabapentin 600 MG TABLET PO ×2 (15:39→20:54)
--- NOTE | 2022-12-06 16:03 | HE.PHANOTE ---
RE: methadone Received verification form from nurse Rivero. Last dose from [facility] 135mg 12/05/22 @0900
--- NOTE | 2022-12-06 16:13 | P.EN_ITS ---
Event Note Date of Service: 12/06/22 Event Note: Addiction consult placed Patient seen by merchandising professor--please see note dated 12/06/22 Methadone verified by RN --should be restarted Will continue to follow Time Spent With Patient Time: Total time managing care of this patient today ____ minutes.
[2022-12-06] MEDS: methADONE HCl 20 MG/2 ML ORAL.CONC 135 MG PO (17:21)
[2022-12-06] MEDS: 0.9 % Sodium Chloride Flush 3 ML SYRINGE IVFLUSH ×2 (17:23→20:56)
[2022-12-06] MEDS: Gabapentin 300 MG CAPSULE PO (20:54)
[2022-12-06] MEDS: QUEtiapine Fumarate 200 MG TABLET PO (20:54)
[2022-12-06] MEDS: Mirtazapine 7.5 MG TABLET PO (20:54)
[2022-12-06] MEDS: clonazePAM 1 MG TABLET PO (21:02)
[2022-12-07] MEDS: vancomycin HCL 1,250 MG in 0.9 % Sodium Chloride 250 ML 166.67 MG IV (00:36)
[2022-12-07] MEDS: Piperacillin Sodium/Tazobactam 3.375 GM in 0.9 % Sodium Chloride 50 ML IV ×4 (03:36→21:21)
[2022-12-07 04:00] VITALS: BP 107/62; PULSE 50; RESP 16; TEMP 36.5; O2SAT 98
[2022-12-07 05:24] LABS: Creatinine Clr Calc Pharmacy 134.2; Estimated Glomerular Filt Rate > 60
[2022-12-07 07:41] VITALS: BP 111/67; PULSE 55; RESP 18; TEMP 36.9; O2SAT 98
[2022-12-07] MEDS: methADONE HCl 20 MG/2 ML ORAL.CONC 135 MG PO (08:29)
[2022-12-07] MEDS: Nicotine 21 MG PATCH.TD24 TRANSDERMA (08:37)
[2022-12-07] MEDS: Gabapentin 600 MG TABLET PO ×3 (08:37→21:22)
[2022-12-07] MEDS: FLUoxetine HCl 20 MG CAPSULE 40 MG PO (08:37)
[2022-12-07] MEDS: 0.9 % Sodium Chloride Flush 3 ML SYRINGE IVFLUSH ×2 (08:38→15:45)
[2022-12-07] MEDS: clonazePAM 1 MG TABLET PO ×2 (09:33→21:31)
[2022-12-07] MEDS: Enoxaparin Sodium 40 MG/0.4 ML SYRINGE SUBCUT (09:33)
--- NOTE | 2022-12-07 09:57 | HO.PM.IMPN ---
Subjective Subjective Date of Service: 12/08/22 Interval History: Follow-up on cellulitis Redness appeared to be better Physical Exam Vital Signs: Vital Signs: Last Vital Signs Temp 98.4 F 12/07/22 07:41 Pulse 55 12/07/22 07:41 Resp 18 12/07/22 07:41 BP 111/67 12/07/22 07:41 Pulse Ox 98 12/07/22 07:41 O2 Del Method Room Air 12/07/22 07:41 BMI result Body Mass Index 26.2 Const: Other: General: AO X 3, no acute distress Resp: CTA bilateral CVS: S1,S2,RRR GI: +BS, NT, no distention Skin: Previously pictured area with unless erythema, but has a hard duration on a arm Neuro: motor grossly intact Psych: appropriate affect Objective Data Active Medications Acetaminophen (Acetaminophen 325 Mg Tablet) 650 mg PO Q6H PRN PRN Reason: Pain, Mild (Pain Scale 1-3) Albuterol Sulfate (Albuterol Sulfate 90 Mcg 8 Gm Inhaler) 2 puff INHALE QID PRN PRN Reason: wheezing Clonazepam (Clonazepam 1 Mg Tablet) 1 mg PO TID PRN PRN Reason: Anxiety Last Admin: 12/07/22 09:33 Dose: 1 mg Documented By: MICHAELA Enoxaparin Sodium (Enoxaparin Sodium 40 Mg/0.4 Ml Syringe) 40 mg SUBCUT Q24H REPLACED BY [facility] Last Admin: 12/07/22 09:33 Dose: 40 mg Documented By: MICHAELA Fluoxetine HCl (Fluoxetine Hcl 20 Mg Capsule) 40 mg PO DAILY REPLACED BY [facility] Last Admin: 12/07/22 08:37 Dose: 40 mg Documented By: MICHAELA Gabapentin (Gabapentin 300 Mg Capsule) 300 mg PO BEDTIME REPLACED BY [facility] Last Admin: 12/06/22 20:54 Dose: 300 mg Documented By: NHI Gabapentin (Gabapentin 600 Mg Tablet) 600 mg PO TID REPLACED BY [facility] Last Admin: 12/07/22 08:37 Dose: 600 mg Documented By: MICHAELA Piperacillin Sod/Tazobactam (Sod 3.375 gm/ Sodium Chloride) 50 mls @ 100 mls/hr IV Q6H REPLACED BY [facility] Last Admin: 12/07/22 09:34 Dose: 100 mls/hr Documented By: MICHAELA Vancomycin HCl 1,250 mg/ (Sodium Chloride) 250 mls @ 166.667 mls/hr IV Q12H REPLACED BY [facility] Last Infusion: 12/07/22 02:07 Dose: 0 mls/hr Documented By: NHI Magnesium Hydroxide (Milk Of Magnesia 30 Ml Oral.Susp) 30 ml PO DAILY PRN PRN Reason: Constipation Melatonin (Melatonin 3 Mg Tablet) 6 mg PO BEDTIME PRN PRN Reason: Insomnia Methadone HCl (Methadone Hcl 20 Mg/2 Ml Oral.Conc) 135 mg PO DAILY REPLACED BY [facility] Last Admin: 12/07/22 08:29 Dose: 135 mg Documented By: MICHAELA Mirtazapine (Mirtazapine 7.5 Mg Tablet) 7.5 mg PO BEDTIME REPLACED BY [facility] Last Admin: 12/06/22 20:54 Dose: 7.5 mg Documented By: NHI Nicotine (Nicotine 21 Mg Patch.Td24) 21 mg TRANSDERMA DAILY REPLACED BY [facility] Last Admin: 12/07/22 08:37 Dose: 21 mg Documented By: MICHAELA Nicotine Polacrilex (Nicotine Polacrilex 2 Mg Gum) 2 mg BUCCAL Q2H PRN PRN Reason: Nicotine Cravings Ondansetron HCl (Ondansetron Hcl 4 Mg/2 Ml Vial) 4 mg IVPUSH Q8H PRN PRN Reason: Nausea and Vomiting Oxycodone HCl (Oxycodone Hcl Immed Release 5 Mg Tablet) 5 mg PO Q6H PRN PRN Reason: Pain, Severe (Pain Scale 7-10) Pharmacy Consult (Consult Rx Vancomycin Dosing) 1 each MISCELLANE DAILY PRN PRN Reason: Consult order Quetiapine Fumarate (Quetiapine Fumarate 200 Mg Tablet) 200 mg PO BEDTIME REPLACED BY [facility] Last Admin: 12/06/22 20:54 Dose: 200 mg Documented By: NHI Sodium Chloride (0.9 % Sodium Chloride Flush 3 Ml Syringe) 3 ml IVFLUSH QSHIFT REPLACED BY [facility] Last Admin: 12/07/22 08:38 Dose: 3 ml Documented By: MICHAELA Labs 12/06/22 00:12 12/07/22 04:46 Labs: Laboratory Results - last 24 hr 12/07/22 04:46 Estim Creat Clear Calc 134.2 Estimated GFR > 60 Microbiology Microbiology Results: Microbiology 12/06/22 00:12 Blood Culture - Preliminary Blood - Venous No growth after 24 hours. 12/06/22 00:12 Blood Culture - Preliminary Blood - Venous Prelim: GPC Gram Stain only Assessment and Plan (1) Cellulitis of arm: Status: Acute Plan 32-year-old male with a history anxiety, depression diabetes, asthma, IVDU? on methadone presents to the emergency with bilatareal left arm pain, swelling and redness consistent with cellulitis Cellulitis of both oneyda from IV drug injection and diabetes, No sepsis--improved - IV vancomycin and Zosyn 12/06, D#2, continue for 1 more day and reassess for PO - follow blood cultures - Pain control with Toradol or Oxycodone -id consult if not improving IVDU - continue home dose of methadone -? p.r.n. Atarax for withdrawal symptoms -hold clonidine due to low BP -?Addiction Medicine following HypOtension--element of chronicity, not due to sepsis--resolved. -hold clonidine, DC IVf Anemia-, no source of blood loss, monitor ?diabetes ?non compliant with diabetic diet or metformin - resume metformin - SSI, POC ?tobacco dependence ?smoking cessation has been advised -NRT anxiety/depression -continue home clonazepam, fluoxetine, seroquel, mirtazapine -will check EKG to assess Qtc dvt ppx - lovenox code status - full code Need for inpt: IV Abx for cellulitis in pt with IV drug use and diabetes, await cultures Time Spent With Patient Time: Total time managing care of this patient today ____ minutes. Quality Stroke Does the patient have a stroke diagnosis?: No VTE Prior VTE?: No VTE Risk Level:: Medical - moderate - high VTE Device Contraindication: Treatment Not Indicated VTE Drug Contraindication: N/A - Med Ordered
--- NOTE | 2022-12-07 11:40 | MHC.RECOVRN ---
Attempted to meet with pt in 359, pt soundly sleeping, does not wake to voice. Pt allowed to rest. T/w available if needed.
--- NOTE | 2022-12-07 12:14 | HE.PHANOTE ---
Re: vanco dosing Renal function stable. Trough is 10.0 today. Increasing dose to 1500 q12 because AUC not expected to reach 400 on previous dose. Will continue daily creatinine monitoring. Next trough 12/08 @1100.
--- NOTE | 2022-12-07 12:33 | MHC.CM.PN ---
pt lives with his mom goes to [facility] has own ride home and is jennifer odell
[2022-12-07] MEDS: vancomycin HCL 1,500 MG in 0.9 % Sodium Chloride 500 ML 333.33 MG IV (13:24)
[2022-12-07 15:59] VITALS: BP 106/69; PULSE 56; RESP 18; TEMP 36.4; O2SAT 96
[2022-12-07 20:00] VITALS: BP 135/65; PULSE 60; RESP 18; TEMP 36.5; O2SAT 98
[2022-12-07 20:59] LABS: Glucose, Whole Blood 81 mg/dL (60-115)
[2022-12-07] MEDS: Mirtazapine 7.5 MG TABLET PO (21:22)
[2022-12-07] MEDS: Gabapentin 300 MG CAPSULE PO (21:22)
[2022-12-07] MEDS: QUEtiapine Fumarate 200 MG TABLET PO (21:22)
[2022-12-07] MEDS: oxyCODONE HCl Immed Release 5 MG TABLET PO (21:31)
[2022-12-08] MEDS: Piperacillin Sodium/Tazobactam 3.375 GM in 0.9 % Sodium Chloride 50 ML IV ×4 (03:09→21:24)
[2022-12-08] MEDS: vancomycin HCL 1,500 MG in 0.9 % Sodium Chloride 500 ML 333.33 MG IV ×2 (03:09→16:11)
[2022-12-08 03:45] VITALS: BP 113/77; PULSE 61; RESP 16; TEMP 36.1; O2SAT 99
[2022-12-08 06:10] LABS: Creatinine Clr Calc Pharmacy 141.4; Estimated Glomerular Filt Rate > 60
[2022-12-08 07:02] VITALS: BP 132/89; PULSE 55; RESP 18; TEMP 36.6; O2SAT 98
[2022-12-08 07:23] LABS: Glucose, Whole Blood 78 mg/dL (60-115)
[2022-12-08] MEDS: methADONE HCl 20 MG/2 ML ORAL.CONC 135 MG PO (09:16)
[2022-12-08] MEDS: Gabapentin 600 MG TABLET PO ×3 (09:17→21:23)
[2022-12-08] MEDS: FLUoxetine HCl 20 MG CAPSULE 40 MG PO (09:17)
[2022-12-08] MEDS: Enoxaparin Sodium 40 MG/0.4 ML SYRINGE SUBCUT (09:18)
[2022-12-08] MEDS: Nicotine 21 MG PATCH.TD24 TRANSDERMA (09:18)
[2022-12-08] MEDS: 0.9 % Sodium Chloride Flush 3 ML SYRINGE IVFLUSH ×2 (09:19→15:23)
--- NOTE | 2022-12-08 09:21 | HO.PM.IMPN ---
Subjective Subjective Date of Service: 12/08/22 Interval History: Follow-up on cellulitis Redness appeared better, but still with pain and tenderness particulary in the right arm indurated Review of Systems Gen: no fever Physical Exam Vital Signs: Vital Signs: Last Vital Signs Temp 98 F 12/08/22 07:02 Pulse 55 12/08/22 07:02 Resp 18 12/08/22 07:02 BP 132/89 12/08/22 07:02 Pulse Ox 98 12/08/22 07:02 O2 Del Method Room Air 12/08/22 03:45 BMI result Body Mass Index 26.2 Const: Other: General: AO X 3, no acute distress Resp: CTA bilateral CVS: S1,S2,RRR GI: +BS, NT, no distention Skin: Previously pictured area with unless erythema, but has a hard induration on right arm Neuro: motor grossly intact Psych: appropriate affect Objective Data Active Medications Acetaminophen (Acetaminophen 325 Mg Tablet) 650 mg PO Q6H PRN PRN Reason: Pain, Mild (Pain Scale 1-3) Albuterol Sulfate (Albuterol Sulfate 90 Mcg 8 Gm Inhaler) 2 puff INHALE QID PRN PRN Reason: wheezing Clonazepam (Clonazepam 1 Mg Tablet) 1 mg PO TID PRN PRN Reason: Anxiety Last Admin: 12/07/22 21:31 Dose: 1 mg Documented By: KRISTYN Enoxaparin Sodium (Enoxaparin Sodium 40 Mg/0.4 Ml Syringe) 40 mg SUBCUT Q24H [facility] Last Admin: 12/07/22 09:33 Dose: 40 mg Documented By: MICHAELA Fluoxetine HCl (Fluoxetine Hcl 20 Mg Capsule) 40 mg PO DAILY [facility] Last Admin: 12/07/22 08:37 Dose: 40 mg Documented By: MICHAELA Gabapentin (Gabapentin 300 Mg Capsule) 300 mg PO BEDTIME [facility] Last Admin: 12/07/22 21:22 Dose: 300 mg Documented By: KRISTYN Gabapentin (Gabapentin 600 Mg Tablet) 600 mg PO TID [facility] Last Admin: 12/07/22 21:22 Dose: 600 mg Documented By: KRISTYN Glucose (Glucose Gel 15 Gm Gel..Gram.) 15 gm PO Q15M PRN; Protocol PRN Reason: per Hypoglycemia Standing Ord. Piperacillin Sod/Tazobactam (Sod 3.375 gm/ Sodium Chloride) 50 mls @ 100 mls/hr IV Q6H [facility] Last Infusion: 12/08/22 03:56 Dose: 0 mls/hr Documented By: KRISTYN Vancomycin HCl 1,500 mg/ (Sodium Chloride) 500 mls @ 333.333 mls/hr IV Q12H [facility] Last Infusion: 12/08/22 04:45 Dose: 0 mls/hr Documented By: KRISTYN Dextrose (D10) 250 mls @ 750 mls/hr IV Q15M PRN; Protocol PRN Reason: per Hypoglycemia Standing Ord. Insulin Human Lispro (Insulin Lispro 100 Unit/Ml 3 Ml Vial) 0 unit SUBCUT QIDACHS [facility]; Protocol Last Admin: 12/08/22 09:06 Dose: Not Given Documented By: MICHAELA Non-Admin Reason: No Insulin Coverage Magnesium Hydroxide (Milk Of Magnesia 30 Ml Oral.Susp) 30 ml PO DAILY PRN PRN Reason: Constipation Melatonin (Melatonin 3 Mg Tablet) 6 mg PO BEDTIME PRN PRN Reason: Insomnia Methadone HCl (Methadone Hcl 20 Mg/2 Ml Oral.Conc) 135 mg PO DAILY [facility] Last Admin: 12/07/22 08:29 Dose: 135 mg Documented By: MICHAELA Mirtazapine (Mirtazapine 7.5 Mg Tablet) 7.5 mg PO BEDTIME [facility] Last Admin: 12/07/22 21:22 Dose: 7.5 mg Documented By: KRISTYN Nicotine (Nicotine 21 Mg Patch.Td24) 21 mg TRANSDERMA DAILY [facility] Last Admin: 12/07/22 08:37 Dose: 21 mg Documented By: MICHAELA Nicotine Polacrilex (Nicotine Polacrilex 2 Mg Gum) 2 mg BUCCAL Q2H PRN PRN Reason: Nicotine Cravings Ondansetron HCl (Ondansetron Hcl 4 Mg/2 Ml Vial) 4 mg IVPUSH Q8H PRN PRN Reason: Nausea and Vomiting Oxycodone HCl (Oxycodone Hcl Immed Release 5 Mg Tablet) 5 mg PO Q6H PRN PRN Reason: Pain, Severe (Pain Scale 7-10) Last Admin: 12/07/22 21:31 Dose: 5 mg Documented By: KRISTYN Pharmacy Consult (Consult Rx Vancomycin Dosing) 1 each MISCELLANE DAILY PRN PRN Reason: Consult order Quetiapine Fumarate (Quetiapine Fumarate 200 Mg Tablet) 200 mg PO BEDTIME [facility] Last Admin: 12/07/22 21:22 Dose: 200 mg Documented By: KRISTYN Sodium Chloride (0.9 % Sodium Chloride Flush 3 Ml Syringe) 3 ml IVFLUSH QSHIFT [facility] Last Admin: 12/07/22 22:17 Dose: Not Given Documented By: KRISTYN Non-Admin Reason: IV Running Labs 12/06/22 00:12 12/08/22 05:31 Labs: Laboratory Results - last 24 hr 12/07/22 12/07/22 12/08/22 11:10 20:57 05:31 Estim Creat Clear Calc 141.4 Estimated GFR > 60 POC Glucose 81 Vancomycin Trough 10.0 12/08/22 07:01 Estim Creat Clear Calc Estimated GFR POC Glucose 78 Vancomycin Trough Microbiology Microbiology Results: Microbiology 12/06/22 00:12 Blood Culture - Preliminary Blood - Venous No growth after 48 hours. 12/06/22 00:12 Blood Culture - Final Blood - Venous Coag negative Staphylococcus Assessment and Plan (1) Cellulitis of arm: Status: Acute Plan 32-year-old male with a history anxiety, depression diabetes, asthma, IVDU? on methadone presents to the emergency with bilatareal left arm pain, swelling and redness consistent with cellulitis Cellulitis of both oneyda from IV drug injection and diabetes, No sepsis--improved - IV vancomycin and Zosyn 12/06, D#2, continue for 1 more day and reassess for PO - follow blood cultures - Pain control with Toradol or Oxycodone -US of are to rule out abscess, dvt -id consult if not improving IVDU - continue home dose of methadone -? p.r.n. Atarax for withdrawal symptoms -hold clonidine due to low BP -?Addiction Medicine following HypOtension-resolved. Anemia-, no source of blood loss, monitor ?diabetes ?non compliant with diabetic diet or metformin - resume metformin - SSI, POC ?tobacco dependence ?smoking cessation has been advised -NRT anxiety/depression -continue home clonazepam, fluoxetine, seroquel, mirtazapine -will check EKG to assess Qtc dvt ppx - lovenox code status - full code Need for inpt: IV Abx for cellulitis in pt with IV drug use and diabetes, await cultures Time Spent With Patient Time: Total time managing care of this patient today ____ minutes. Quality Stroke Does the patient have a stroke diagnosis?: No VTE Prior VTE?: No VTE Risk Level:: Medical - moderate - high VTE Device Contraindication: Treatment Not Indicated VTE Drug Contraindication: N/A - Med Ordered
[2022-12-08 11:13] LABS: Glucose, Whole Blood 140 mg/dL (60-115)
[2022-12-08] MEDS: clonazePAM 1 MG TABLET PO ×2 (11:13→21:23)
[2022-12-08 11:48] LABS: Vancomycin Random 12.8 mcg/mL (15-20)
--- NOTE | 2022-12-08 14:18 | MHC.CM.PN ---
Met with patient this am to review discharge plan. DP home with family assist and transport. Patient will resume Methadone therapy at [facility].
[2022-12-08 15:32] VITALS: BP 116/74; PULSE 50; RESP 18; TEMP 36.4; O2SAT 99
[2022-12-08 16:17] LABS: Glucose, Whole Blood 67 mg/dL (60-115)
[2022-12-08] MEDS: oxyCODONE HCl Immed Release 5 MG TABLET PO ×2 (16:18→22:26)
--- NOTE | 2022-12-08 18:27 | PC.NURSE ---
Potassium Phosphate was brought to the floor late, hence delaying infusion for PPN, pharmacy called for delivery of Potassium Phosphate
[2022-12-08 19:42] VITALS: BP 110/76; PULSE 50; RESP 16; TEMP 36.4; O2SAT 97
[2022-12-08 20:52] LABS: Glucose, Whole Blood 73 mg/dL (60-115)
[2022-12-08] MEDS: Mirtazapine 7.5 MG TABLET PO (21:23)
[2022-12-08] MEDS: Gabapentin 300 MG CAPSULE PO (21:23)
[2022-12-08] MEDS: QUEtiapine Fumarate 200 MG TABLET PO (21:24)
[2022-12-09 04:00] VITALS: BP 101/67; PULSE 52; RESP 16; TEMP 36; O2SAT 98
[2022-12-09] MEDS: vancomycin HCL 1,500 MG in 0.9 % Sodium Chloride 500 ML 333.33 MG IV ×2 (04:06→15:56)
[2022-12-09 06:56] LABS: Creatinine Clr Calc Pharmacy 153.6; Estimated Glomerular Filt Rate > 60
[2022-12-09 07:13] VITALS: BP 114/56; PULSE 55; RESP 16; TEMP 36.6; O2SAT 97
[2022-12-09 07:29] LABS: Glucose, Whole Blood 98 mg/dL (60-115)
[2022-12-09] MEDS: Gabapentin 600 MG TABLET PO ×3 (08:07→21:40)
[2022-12-09] MEDS: oxyCODONE HCl Immed Release 5 MG TABLET PO ×3 (08:08→21:40)
[2022-12-09] MEDS: Nicotine 21 MG PATCH.TD24 TRANSDERMA (08:08)
[2022-12-09] MEDS: FLUoxetine HCl 20 MG CAPSULE 40 MG PO (08:08)
[2022-12-09] MEDS: methADONE HCl 20 MG/2 ML ORAL.CONC 135 MG PO (08:08)
[2022-12-09] MEDS: Piperacillin Sodium/Tazobactam 3.375 GM in 0.9 % Sodium Chloride 50 ML IV ×3 (08:08→20:22)
[2022-12-09] MEDS: clonazePAM 1 MG TABLET PO ×3 (08:08→21:40)
[2022-12-09] MEDS: 0.9 % Sodium Chloride Flush 3 ML SYRINGE IVFLUSH ×2 (08:09→15:15)
--- NOTE | 2022-12-09 08:40 | P.PNIM_ITS ---
Subjective Subjective Date of Service: 12/09/22 Interval History: Follow-up on cellulitis arm still swollen, less red, pain, us result pending Review of Systems Gen: no fever Physical Exam Vital Signs: Vital Signs: Last Vital Signs Temp 98 F 12/09/22 07:13 Pulse 55 12/09/22 07:13 Resp 16 12/09/22 07:13 BP 114/56 L 12/09/22 07:13 Pulse Ox 97 12/09/22 07:13 O2 Del Method Room Air 12/09/22 07:13 BMI result Body Mass Index 26.2 Const: Other: General: AO X 3, no acute distress Resp: CTA bilateral CVS: S1,S2,RRR GI: +BS, NT, no distention Skin: Previously pictured area with unless erythema, but has a hard induration on right arm Neuro: motor grossly intact Psych: appropriate affect Objective Data Active Medications Acetaminophen (Acetaminophen 325 Mg Tablet) 650 mg PO Q6H PRN PRN Reason: Pain, Mild (Pain Scale 1-3) Albuterol Sulfate (Albuterol Sulfate 90 Mcg 8 Gm Inhaler) 2 puff INHALE QID PRN PRN Reason: wheezing Clonazepam (Clonazepam 1 Mg Tablet) 1 mg PO TID PRN PRN Reason: Anxiety Last Admin: 12/09/22 08:08 Dose: 1 mg Documented By: CASSIUS Enoxaparin Sodium (Enoxaparin Sodium 40 Mg/0.4 Ml Syringe) 40 mg SUBCUT Q24H [facility] Last Admin: 12/08/22 09:18 Dose: 40 mg Documented By: MICHAELA Fluoxetine HCl (Fluoxetine Hcl 20 Mg Capsule) 40 mg PO DAILY [facility] Last Admin: 12/09/22 08:08 Dose: 40 mg Documented By: CASSIUS Gabapentin (Gabapentin 300 Mg Capsule) 300 mg PO BEDTIME [facility] Last Admin: 12/08/22 21:23 Dose: 300 mg Documented By: KRISTYN Gabapentin (Gabapentin 600 Mg Tablet) 600 mg PO TID [facility] Last Admin: 12/09/22 08:07 Dose: 600 mg Documented By: CASSIUS Glucose (Glucose Gel 15 Gm Gel..Gram.) 15 gm PO Q15M PRN; Protocol PRN Reason: per Hypoglycemia Standing Ord. Dextrose (D10) 250 mls @ 750 mls/hr IV Q15M PRN; Protocol PRN Reason: per Hypoglycemia Standing Ord. Vancomycin HCl 1,500 mg/ (Sodium Chloride) 500 mls @ 333.333 mls/hr IV Q12H [facility] Last Infusion: 12/09/22 07:44 Dose: 0 mls/hr Documented By: CASSIUS Piperacillin Sod/Tazobactam (Sod 3.375 gm/ Sodium Chloride) 50 mls @ 100 mls/hr IV Q6H [facility] Last Admin: 12/09/22 08:08 Dose: 100 mls/hr Documented By: CASSIUS Insulin Human Lispro (Insulin Lispro 100 Unit/Ml 3 Ml Vial) 0 unit SUBCUT QIDACHS [facility]; Protocol Last Admin: 12/09/22 07:50 Dose: Not Given Documented By: CASSIUS Non-Admin Reason: No Insulin Coverage Magnesium Hydroxide (Milk Of Magnesia 30 Ml Oral.Susp) 30 ml PO DAILY PRN PRN Reason: Constipation Melatonin (Melatonin 3 Mg Tablet) 6 mg PO BEDTIME PRN PRN Reason: Insomnia Methadone HCl (Methadone Hcl 20 Mg/2 Ml Oral.Conc) 135 mg PO DAILY [facility] Last Admin: 12/09/22 08:08 Dose: 135 mg Documented By: CASSIUS Mirtazapine (Mirtazapine 7.5 Mg Tablet) 7.5 mg PO BEDTIME [facility] Last Admin: 12/08/22 21:23 Dose: 7.5 mg Documented By: KRISTYN Nicotine (Nicotine 21 Mg Patch.Td24) 21 mg TRANSDERMA DAILY [facility] Last Admin: 12/09/22 08:08 Dose: 21 mg Documented By: CASSIUS Nicotine Polacrilex (Nicotine Polacrilex 2 Mg Gum) 2 mg BUCCAL Q2H PRN PRN Reason: Nicotine Cravings Ondansetron HCl (Ondansetron Hcl 4 Mg/2 Ml Vial) 4 mg IVPUSH Q8H PRN PRN Reason: Nausea and Vomiting Oxycodone HCl (Oxycodone Hcl Immed Release 5 Mg Tablet) 5 mg PO Q6H PRN PRN Reason: Pain, Severe (Pain Scale 7-10) Last Admin: 12/09/22 08:08 Dose: 5 mg Documented By: CASSIUS Pharmacy Consult (Consult Rx Vancomycin Dosing) 1 each MISCELLANE DAILY PRN PRN Reason: Consult order Quetiapine Fumarate (Quetiapine Fumarate 200 Mg Tablet) 200 mg PO BEDTIME [facility] Last Admin: 12/08/22 21:24 Dose: 200 mg Documented By: KRISTYN Sodium Chloride (0.9 % Sodium Chloride Flush 3 Ml Syringe) 3 ml IVFLUSH QSHIFT [facility] Last Admin: 12/09/22 08:09 Dose: 3 ml Documented By: MAYELANM Labs 12/06/22 00:12 12/09/22 05:40 Labs: Laboratory Results - last 24 hr 12/08/22 12/08/22 12/08/22 11:08 11:09 16:04 Estim Creat Clear Calc Estimated GFR POC Glucose 140 H 67 Random Vancomycin 12.8 L 12/08/22 12/09/22 12/09/22 20:46 05:40 07:23 Estim Creat Clear Calc 153.6 Estimated GFR > 60 POC Glucose 73 98 Random Vancomycin Microbiology Microbiology Results: Microbiology 12/06/22 00:12 Blood Culture - Preliminary Blood - Venous Prelim: GPC Gram Stain only Assessment and Plan (1) Cellulitis of arm: Status: Acute Plan 32-year-old male with a history anxiety, depression diabetes, asthma, IVDU? on methadone presents to the emergency with bilatareal left arm pain, swelling and redness consistent with cellulitis Cellulitis of both oneyda from IV drug injection and diabetes, No sepsis--improved - IV vancomycin and Zosyn 12/06/22, , continue for 1 more day and reassess for PO - cultures negative - Pain control with Toradol or Oxycodone -US result depending -id consult IVDU - continue home dose of methadone -? p.r.n. Atarax for withdrawal symptoms -hold clonidine due to low BP -?Addiction Medicine following HypOtension-resolved. Anemia-, no source of blood loss, monitor ?diabetes ?non compliant with diabetic diet or metformin - resume metformin - SSI, POC ?tobacco dependence ?smoking cessation has been advised -NRT anxiety/depression -continue home clonazepam, fluoxetine, seroquel, mirtazapine -will check EKG to assess Qtc dvt ppx - lovenox code status - full code Need for inpt: IV Abx for cellulitis in pt with IV drug use and diabetes, await cultures Time Spent With Patient Time: Total time managing care of this patient today ____ minutes. Quality Stroke Does the patient have a stroke diagnosis?: No VTE Prior VTE?: No VTE Risk Level:: Medical - moderate - high VTE Device Contraindication: Treatment Not Indicated VTE Drug Contraindication: N/A - Med Ordered
[2022-12-09] MEDS: Enoxaparin Sodium 40 MG/0.4 ML SYRINGE SUBCUT (10:36)
[2022-12-09 11:23] LABS: Glucose, Whole Blood 131 mg/dL (60-115)
[2022-12-09 14:52] LABS: Vancomycin Random 12.9 mcg/mL (15-20)
[2022-12-09 15:48] VITALS: BP 109/72; PULSE 50; RESP 18; TEMP 36.4; O2SAT 97
[2022-12-09 16:08] LABS: Glucose, Whole Blood 142 mg/dL (60-115)
[2022-12-09 19:30] VITALS: BP 113/76; PULSE 50; RESP 16; TEMP 36.1; O2SAT 97
[2022-12-09 20:16] LABS: Glucose, Whole Blood 103 mg/dL (60-115)
[2022-12-09] MEDS: QUEtiapine Fumarate 200 MG TABLET PO (21:40)
[2022-12-09] MEDS: Gabapentin 300 MG CAPSULE PO (21:40)
[2022-12-09] MEDS: Mirtazapine 7.5 MG TABLET PO (21:40)
[2022-12-10] MEDS: 0.9 % Sodium Chloride Flush 3 ML SYRINGE IVFLUSH ×3 (00:09→20:48)
[2022-12-10] MEDS: Piperacillin Sodium/Tazobactam 3.375 GM in 0.9 % Sodium Chloride 50 ML IV ×4 (02:31→20:47)
[2022-12-10 03:10] VITALS: BP 112/76; PULSE 50; RESP 16; TEMP 36.3; O2SAT 95
[2022-12-10] MEDS: vancomycin HCL 1,500 MG in 0.9 % Sodium Chloride 500 ML 333.33 MG IV ×2 (03:13→16:02)
--- NOTE | 2022-12-10 07:00 | CA_ITS ---
Transthoracic Echocardiogram Patient (Last, First, Middle): Andrey Monk G Gender: Male Date of : 1990 Age: 32 Procedure Date: 12/10/2022 Procedure Type: Transthoracic Echocardiogram Location: [facility] [place] Height: 175.26 cm Weight: 80.29 kg BSA: 1.96 m2 Heart Rate: 50 bpm BP: 123 / 76 mmHg Color Sprayer: Referring MD: Kal Ruiz MD Symptoms: bacteremia Study Quality: Adequate ECG Rhythm: Bradycardia Conclusions: - The left ventricular systolic function is normal. The calculated ejection fraction is 67% by biplane method. - Moderately increased right ventricular cavity size. - No obvious valvular pathology seen on this study. Findings Left Ventricle Normal left ventricular cavity size. There is normal left ventricular wall thickness. The left ventricular systolic function is normal. The calculated ejection fraction is 67% by biplane method. There is no evidence of regional wall motion abnormalities. Diastolic function is normal for age. Right Ventricle Moderately increased right ventricular cavity size. There is normal right ventricular systolic function. Atria Both atria are normal in size. Aortic Valve There is a normal trileaflet aortic valve. There is no aortic valve stenosis. There is no aortic valve regurgitation. Mitral Valve The mitral valve appears normal. There is trace mitral valve regurgitation. There is no mitral valve stenosis. Pulmonic Valve The pulmonic valve is likely normal. Tricuspid Valve Normal tricuspid valve structure. There is no tricuspid valve regurgitation. Tricuspid regurgitation envelope is inadequate for calculation of right ventricular systolic pressure. Great Vessels The asc aorta is normal in size. Venous The inferior vena cava is dilated and collapses greater than 50% with inspiration. Pericardium/Pleural There is no evidence of pericardial effusion. Prior Study Comparison No prior study available for comparison. Recommendations, Care & Conclusions No obvious valvular pathology seen on this study. Measurements 2D Linear Measurements IVSd: 0.97 0.6-0.9/0.6-1.0 cm LVIDd: 5.16 3.9-5.3/4.2-5.9 cm LVIDd Index: 2.63 2.4-3.2/2.2-3.1 cm/m2 LVIDs: 3.18 2.0-3.6 cm LVPWd: 1.05 0.7-1.1 cm LA Diam: 3.70 2.7-3.8/3.0-4.0 cm LAIDs Index: 1.89 1.5-2.3 cm/m2 LV Mass: 241.91 67-162/88-224 g LV Mass Index: 123.42 43-95/49-115 g/m2 LVOT Diam: 2.50 3.0+(-)1.3 cm 2D Systolic Function EF 4C: 67.00 >55% EF 2C: 66.30 >55% EF BiP: 66.70 >55% Mitral Valve MV Pk E: 1.22 MV PK A: 0.46 MV Decel Time: 260.00 E/A: 2.70 E'Lateral: 13.80 E'Medial: 11.40 E/E' Med: 10.70 E/E' Lat: 8.80 PHT: 76.00 MVA PHT: 2.89 Decel [place]: 4.71 Aortic Valve AoV Pk Gabriel: 1.40 AoV Mn Gabriel: 0.90 AoV VTI: 0.35 AoV Pk Grad: 8.00 Aov Mn Grad: 4.00 ARTEMIO Cont.VTI: 3.90 LVOT LVOT Pk Gabriel: 1.14 LVOT Mn Gabriel: 0.76 LVOT VTI: 0.27 LVOT Pk Grad: 5.00 LVOT Mn Grad: 3.00 LVOT Diam: 2.50 LVOT Area: 4.91 Diastolic Function MV Pk E: 1.22 MV Pk A: 0.46 E/A: 2.70 E'Medial: 11.40 E/E' Med: 10.70 E' Laterial: 13.80 E/E' Lat: 8.80 Right Ventricle TAPSE (mm): 31.30 TVS' Gabriel: 19.30 Tricuspid Valve RA Press: 15.00 Great Vessels Aorta Sinus of Valsalva: 3.40 2.0-3.5 cm Ao Asc: 3.40 2.1-3.4 cm Pulmonary Valve PV Pk Gabriel: 1.01 Peak PV Grad: 4.00 Updated in Other Vendor System with Status of Final David Colorado MD electronically signed on 12/10/2022 2:23:30 PM with status of Final
[2022-12-10 07:04] VITALS: BP 123/76; PULSE 54; RESP 16; TEMP 36.1; O2SAT 96
[2022-12-10 07:08] LABS: Glucose, Whole Blood 78 mg/dL (60-115)
[2022-12-10 08:30] LABS: Creatinine Clr Calc Pharmacy 130.9; Estimated Glomerular Filt Rate > 60
[2022-12-10] MEDS: FLUoxetine HCl 20 MG CAPSULE 40 MG PO (08:34)
[2022-12-10] MEDS: Gabapentin 600 MG TABLET PO ×3 (08:34→20:46)
[2022-12-10] MEDS: oxyCODONE HCl Immed Release 5 MG TABLET PO ×3 (08:34→21:57)
[2022-12-10] MEDS: clonazePAM 1 MG TABLET PO ×3 (08:35→21:57)
[2022-12-10] MEDS: Nicotine 21 MG PATCH.TD24 TRANSDERMA (08:35)
[2022-12-10] MEDS: methADONE HCl 20 MG/2 ML ORAL.CONC 135 MG PO (08:35)
[2022-12-10] MEDS: Enoxaparin Sodium 40 MG/0.4 ML SYRINGE SUBCUT (09:25)
--- NOTE | 2022-12-10 09:35 | P.PNIM_ITS ---
Subjective Subjective Date of Service: 12/10/22 Interval History: Follow-up on cellulitis redness better, no fever, blood cultures were positive with staph and eliseo Physical Exam Vital Signs: Vital Signs: Last Vital Signs Temp 97 F 12/10/22 07:04 Pulse 54 12/10/22 07:04 Resp 16 12/10/22 07:04 BP 123/76 12/10/22 07:04 Pulse Ox 96 12/10/22 07:04 O2 Del Method Room Air 12/10/22 07:04 BMI result Body Mass Index 26.2 Const: Other: General: AO X 3, no acute distress Resp: CTA bilateral CVS: S1,S2,RRR GI: +BS, NT, no distention Skin: Previously pictured area with unless erythema, but has a hard induration on right arm Neuro: motor grossly intact Psych: appropriate affect Objective Data Active Medications Acetaminophen (Acetaminophen 325 Mg Tablet) 650 mg PO Q6H PRN PRN Reason: Pain, Mild (Pain Scale 1-3) Albuterol Sulfate (Albuterol Sulfate 90 Mcg 8 Gm Inhaler) 2 puff INHALE QID PRN PRN Reason: wheezing Clonazepam (Clonazepam 1 Mg Tablet) 1 mg PO TID PRN PRN Reason: Anxiety Last Admin: 12/10/22 08:35 Dose: 1 mg Documented By: CASSIUS Enoxaparin Sodium (Enoxaparin Sodium 40 Mg/0.4 Ml Syringe) 40 mg SUBCUT Q24H [facility] Last Admin: 12/10/22 09:25 Dose: 40 mg Documented By: CASSIUS Fluoxetine HCl (Fluoxetine Hcl 20 Mg Capsule) 40 mg PO DAILY [facility] Last Admin: 12/10/22 08:34 Dose: 40 mg Documented By: CASSIUS Gabapentin (Gabapentin 300 Mg Capsule) 300 mg PO BEDTIME [facility] Last Admin: 12/09/22 21:40 Dose: 300 mg Documented By: MICHAEL Gabapentin (Gabapentin 600 Mg Tablet) 600 mg PO TID [facility] Last Admin: 12/10/22 08:34 Dose: 600 mg Documented By: CASSIUS Glucose (Glucose Gel 15 Gm Gel..Gram.) 15 gm PO Q15M PRN; Protocol PRN Reason: per Hypoglycemia Standing Ord. Dextrose (D10) 250 mls @ 750 mls/hr IV Q15M PRN; Protocol PRN Reason: per Hypoglycemia Standing Ord. Vancomycin HCl 1,500 mg/ (Sodium Chloride) 500 mls @ 333.333 mls/hr IV Q12H [facility] Last Infusion: 12/10/22 04:45 Dose: 0 mls/hr Documented By: NHI Piperacillin Sod/Tazobactam (Sod 3.375 gm/ Sodium Chloride) 50 mls @ 100 mls/hr IV Q6H [facility] Last Infusion: 12/10/22 09:24 Dose: 0 mls/hr Documented By: CASSIUS Insulin Human Lispro (Insulin Lispro 100 Unit/Ml 3 Ml Vial) 0 unit SUBCUT QIDACHS [facility]; Protocol Last Admin: 12/10/22 07:21 Dose: Not Given Documented By: CASSIUS Non-Admin Reason: No Insulin Coverage Magnesium Hydroxide (Milk Of Magnesia 30 Ml Oral.Susp) 30 ml PO DAILY PRN PRN Reason: Constipation Melatonin (Melatonin 3 Mg Tablet) 6 mg PO BEDTIME PRN PRN Reason: Insomnia Methadone HCl (Methadone Hcl 20 Mg/2 Ml Oral.Conc) 135 mg PO DAILY [facility] Last Admin: 12/10/22 08:35 Dose: 135 mg Documented By: CASSIUS Mirtazapine (Mirtazapine 7.5 Mg Tablet) 7.5 mg PO BEDTIME [facility] Last Admin: 12/09/22 21:40 Dose: 7.5 mg Documented By: MICHAEL Nicotine (Nicotine 21 Mg Patch.Td24) 21 mg TRANSDERMA DAILY [facility] Last Admin: 12/10/22 08:35 Dose: 21 mg Documented By: CASSIUS Nicotine Polacrilex (Nicotine Polacrilex 2 Mg Gum) 2 mg BUCCAL Q2H PRN PRN Reason: Nicotine Cravings Ondansetron HCl (Ondansetron Hcl 4 Mg/2 Ml Vial) 4 mg IVPUSH Q8H PRN PRN Reason: Nausea and Vomiting Oxycodone HCl (Oxycodone Hcl Immed Release 5 Mg Tablet) 5 mg PO Q6H PRN PRN Reason: Pain, Severe (Pain Scale 7-10) Last Admin: 12/10/22 08:34 Dose: 5 mg Documented By: CASSIUS Pharmacy Consult (Consult Rx Vancomycin Dosing) 1 each MISCELLANE DAILY PRN PRN Reason: Consult order Quetiapine Fumarate (Quetiapine Fumarate 200 Mg Tablet) 200 mg PO BEDTIME [facility] Last Admin: 12/09/22 21:40 Dose: 200 mg Documented By: MICHAEL Sodium Chloride (0.9 % Sodium Chloride Flush 3 Ml Syringe) 3 ml IVFLUSH QSHIFT [facility] Last Admin: 12/10/22 08:36 Dose: 3 ml Documented By: CASSIUS Labs 12/06/22 00:12 12/10/22 07:55 Labs: Laboratory Results - last 24 hr 12/09/22 12/09/22 12/09/22 11:03 14:06 16:03 Estim Creat Clear Calc Estimated GFR POC Glucose 131 H 142 H Random Vancomycin 12.9 L 12/09/22 12/10/22 12/10/22 20:11 07:04 07:55 Estim Creat Clear Calc 130.9 Estimated GFR > 60 POC Glucose 103 78 Random Vancomycin Microbiology Microbiology Results: Microbiology 12/06/22 00:12 Blood Culture - Preliminary Blood - Venous Staphylococcus aureus Assessment and Plan (1) Cellulitis of arm: Status: Acute Plan 32-year-old male with a history anxiety, depression diabetes, asthma, IVDU? on methadone presents to the emergency with bilatareal left arm pain, swelling and redness consistent with cellulitis Cellulitis of both oneyda from IV drug injection and diabetes, No sepsis--improved -Staph bacteremia - IV vancomycin and Zosyn 12/06/22, , continue for 1 more day and reassess for PO - cultures negative - Pain control with Toradol or Oxycodone -US result depending -id consult epnding -repeat blood cultures IVDU - continue home dose of methadone -? p.r.n. Atarax for withdrawal symptoms -hold clonidine due to low BP -?Addiction Medicine following HypOtension-resolved. Anemia-, no source of blood loss, monitor ?diabetes ?non compliant with diabetic diet or metformin - resume metformin - SSI, POC ?tobacco dependence ?smoking cessation has been advised -NRT anxiety/depression -continue home clonazepam, fluoxetine, seroquel, mirtazapine -will check EKG to assess Qtc dvt ppx - lovenox code status - full code Need for inpt: IV Abx for cellulitis in pt with IV drug use and diabetes, await cultures Time Spent With Patient Time: Total time managing care of this patient today ____ minutes. Quality Stroke Does the patient have a stroke diagnosis?: No VTE Prior VTE?: No VTE Risk Level:: Medical - moderate - high VTE Device Contraindication: Treatment Not Indicated VTE Drug Contraindication: N/A - Med Ordered
[2022-12-10 11:20] LABS: Glucose, Whole Blood 92 mg/dL (60-115)
[2022-12-10 14:53] LABS: Vancomycin Trough 14.3 mcg/mL (10.0-20.0)
--- NOTE | 2022-12-10 15:01 | HE.PHANOTE ---
RE SHALINI CONTINUE CURRENT DOSE, NEW TROUGH FOR TOMORROW AT 1400. DID NOT SCHEDULE AFTER 3 DOSES SINCE PHARMACY WOULD NOT BE HERE KATHERYN
[2022-12-10 15:45] VITALS: BP 121/78; PULSE 53; RESP 18; TEMP 36.9; O2SAT 94
[2022-12-10 16:10] LABS: Glucose, Whole Blood 103 mg/dL (60-115)
[2022-12-10 19:14] VITALS: BP 117/71; PULSE 52; RESP 18; TEMP 36; O2SAT 97
[2022-12-10 20:20] LABS: Glucose, Whole Blood 111 mg/dL (60-115)
[2022-12-10] MEDS: Gabapentin 300 MG CAPSULE PO (20:46)
[2022-12-10] MEDS: QUEtiapine Fumarate 200 MG TABLET PO (20:46)
[2022-12-10] MEDS: Mirtazapine 7.5 MG TABLET PO (20:46)
[2022-12-10 21:23] LABS: Glucose, Whole Blood 111 mg/dL (60-115)
[2022-12-11] MEDS: Piperacillin Sodium/Tazobactam 3.375 GM in 0.9 % Sodium Chloride 50 ML IV ×3 (02:30→13:58)
[2022-12-11] MEDS: vancomycin HCL 1,500 MG in 0.9 % Sodium Chloride 500 ML 333.33 MG IV ×2 (03:04→14:34)
[2022-12-11 04:00] VITALS: BP 96/55; PULSE 52; RESP 19; O2SAT 98
[2022-12-11 06:42] LABS: Creatinine Clr Calc Pharmacy 127.7; Estimated Glomerular Filt Rate > 60
[2022-12-11 07:15] VITALS: BP 107/68; PULSE 51; RESP 18; TEMP 36.4; O2SAT 97
[2022-12-11 07:40] LABS: Glucose, Whole Blood 116 mg/dL (60-115)
[2022-12-11] MEDS: Gabapentin 600 MG TABLET PO ×3 (07:47→20:33)
[2022-12-11] MEDS: FLUoxetine HCl 20 MG CAPSULE 40 MG PO (07:47)
[2022-12-11] MEDS: Nicotine 21 MG PATCH.TD24 TRANSDERMA (07:48)
[2022-12-11] MEDS: methADONE HCl 20 MG/2 ML ORAL.CONC 135 MG PO (07:49)
[2022-12-11] MEDS: 0.9 % Sodium Chloride Flush 3 ML SYRINGE IVFLUSH ×3 (07:56→20:33)
--- NOTE | 2022-12-11 08:07 | HO.PM.IMPN ---
Subjective Subjective Date of Service: 12/11/22 Interval History: Follow-up on cellulitis arm remains swollen with some erythem Review of Systems Gen: no fever Physical Exam Vital Signs: Vital Signs: Last Vital Signs Temp 97.5 F 12/11/22 07:15 Pulse 51 12/11/22 07:15 Resp 18 12/11/22 07:15 BP 107/68 12/11/22 07:15 Pulse Ox 97 12/11/22 07:15 O2 Del Method Room Air 12/11/22 07:15 BMI result Body Mass Index 26.2 Const: Other: General: AO X 3, no acute distress Resp: CTA bilateral CVS: S1,S2,RRR GI: +BS, NT, no distention Skin: Previously pictured area with unless erythema, but has a hard induration on right arm Neuro: motor grossly intact Psych: appropriate affect Objective Data Active Medications Acetaminophen (Acetaminophen 325 Mg Tablet) 650 mg PO Q6H PRN PRN Reason: Pain, Mild (Pain Scale 1-3) Albuterol Sulfate (Albuterol Sulfate 90 Mcg 8 Gm Inhaler) 2 puff INHALE QID PRN PRN Reason: wheezing Clonazepam (Clonazepam 1 Mg Tablet) 1 mg PO TID PRN PRN Reason: Anxiety Last Admin: 12/10/22 21:57 Dose: 1 mg Documented By: NHI Enoxaparin Sodium (Enoxaparin Sodium 40 Mg/0.4 Ml Syringe) 40 mg SUBCUT Q24H [facility] Last Admin: 12/10/22 09:25 Dose: 40 mg Documented By: CASSIUS Fluoxetine HCl (Fluoxetine Hcl 20 Mg Capsule) 40 mg PO DAILY [facility] Last Admin: 12/11/22 07:47 Dose: 40 mg Documented By: DENISE Gabapentin (Gabapentin 300 Mg Capsule) 300 mg PO BEDTIME [facility] Last Admin: 12/10/22 20:46 Dose: 300 mg Documented By: NHI Gabapentin (Gabapentin 600 Mg Tablet) 600 mg PO TID [facility] Last Admin: 12/11/22 07:47 Dose: 600 mg Documented By: DENISE Glucose (Glucose Gel 15 Gm Gel..Gram.) 15 gm PO Q15M PRN; Protocol PRN Reason: per Hypoglycemia Standing Ord. Dextrose (D10) 250 mls @ 750 mls/hr IV Q15M PRN; Protocol PRN Reason: per Hypoglycemia Standing Ord. Vancomycin HCl 1,500 mg/ (Sodium Chloride) 500 mls @ 333.333 mls/hr IV Q12H [facility] Last Infusion: 12/11/22 04:39 Dose: 0 mls/hr Documented By: NHI Piperacillin Sod/Tazobactam (Sod 3.375 gm/ Sodium Chloride) 50 mls @ 100 mls/hr IV Q6H [facility] Last Admin: 12/11/22 07:51 Dose: 100 mls/hr Documented By: DENISE Insulin Human Lispro (Insulin Lispro 100 Unit/Ml 3 Ml Vial) 0 unit SUBCUT QIDACHS [facility]; Protocol Last Admin: 12/11/22 07:46 Dose: Not Given Documented By: DENISE Non-Admin Reason: No Insulin Coverage Magnesium Hydroxide (Milk Of Magnesia 30 Ml Oral.Susp) 30 ml PO DAILY PRN PRN Reason: Constipation Melatonin (Melatonin 3 Mg Tablet) 6 mg PO BEDTIME PRN PRN Reason: Insomnia Methadone HCl (Methadone Hcl 20 Mg/2 Ml Oral.Conc) 135 mg PO DAILY [facility] Last Admin: 12/11/22 07:49 Dose: 135 mg Documented By: DENISE Mirtazapine (Mirtazapine 7.5 Mg Tablet) 7.5 mg PO BEDTIME [facility] Last Admin: 12/10/22 20:46 Dose: 7.5 mg Documented By: NHI Nicotine (Nicotine 21 Mg Patch.Td24) 21 mg TRANSDERMA DAILY [facility] Last Admin: 12/11/22 07:48 Dose: 21 mg Documented By: DENISE Nicotine Polacrilex (Nicotine Polacrilex 2 Mg Gum) 2 mg BUCCAL Q2H PRN PRN Reason: Nicotine Cravings Ondansetron HCl (Ondansetron Hcl 4 Mg/2 Ml Vial) 4 mg IVPUSH Q8H PRN PRN Reason: Nausea and Vomiting Oxycodone HCl (Oxycodone Hcl Immed Release 5 Mg Tablet) 5 mg PO Q6H PRN PRN Reason: Pain, Severe (Pain Scale 7-10) Last Admin: 12/10/22 21:57 Dose: 5 mg Documented By: NHI Pharmacy Consult (Consult Rx Vancomycin Dosing) 1 each MISCELLANE DAILY PRN PRN Reason: Consult order Quetiapine Fumarate (Quetiapine Fumarate 200 Mg Tablet) 200 mg PO BEDTIME [facility] Last Admin: 12/10/22 20:46 Dose: 200 mg Documented By: NHI Sodium Chloride (0.9 % Sodium Chloride Flush 3 Ml Syringe) 3 ml IVFLUSH QSHIFT [facility] Last Admin: 12/11/22 07:56 Dose: 3 ml Documented By: PHANLYM Labs 12/06/22 00:12 12/11/22 05:46 Labs: Laboratory Results - last 24 hr 12/10/22 12/10/22 12/10/22 07:55 11:12 14:03 Estim Creat Clear Calc 130.9 Estimated GFR > 60 POC Glucose 92 Vancomycin Trough 14.3 12/10/22 12/10/22 12/10/22 16:07 20:14 21:20 Estim Creat Clear Calc Estimated GFR POC Glucose 103 111 111 Vancomycin Trough 12/11/22 12/11/22 05:46 07:19 Estim Creat Clear Calc 127.7 Estimated GFR > 60 POC Glucose 116 H Vancomycin Trough Microbiology Microbiology Results: Microbiology 12/06/22 00:12 Blood Culture - Final Blood - Venous Methicillin Res Staph Aureus Assessment and Plan (1) Cellulitis of arm: Status: Acute (2) MRSA bacteremia: Status: Acute Plan 32-year-old male with a history anxiety, depression diabetes, asthma, IVDU? on methadone presents to the emergency with bilatareal left arm pain, swelling and redness consistent with cellulitis Cellulitis of both oneyda from IV drug injection and diabetes Sepsis, MRSA bacteremia--POA -No endocarditis -Stop Zosyn 12/06 to 12/11 -Continue Vanco 12/06/22 -ID recommend care home treatment -repeat blood cultures, PICC line on Tuesday -consider MRI if arm remains swollen IVDU - continue home dose of methadone -? p.r.n. Atarax for withdrawal symptoms -hold clonidine due to low BP -?Addiction Medicine following HypOtension on admission, -resolved. Anemia-, no source of blood loss, monitor ?diabetes ?non compliant with diabetic diet or metformin - resume metformin - SSI, POC ?tobacco dependence ?smoking cessation has been advised -NRT anxiety/depression, no SI -continue home clonazepam, fluoxetine, seroquel, mirtazapine -will check EKG to assess Qtc dvt ppx - lovenox code status - full code Need for inpt: IV Abx for cellulitis and MRSA bacteremia in pt with IV drug use and diabetes, await cultures Time Spent With Patient Time: Total time managing care of this patient today ____ minutes. Quality Stroke Does the patient have a stroke diagnosis?: No VTE Prior VTE?: No VTE Risk Level:: Medical - moderate - high VTE Device Contraindication: Treatment Not Indicated VTE Drug Contraindication: N/A - Med Ordered
[2022-12-11] MEDS: clonazePAM 1 MG TABLET PO ×2 (08:42→16:20)
[2022-12-11] MEDS: oxyCODONE HCl Immed Release 5 MG TABLET PO ×2 (08:42→15:48)
[2022-12-11] MEDS: Enoxaparin Sodium 40 MG/0.4 ML SYRINGE SUBCUT (08:43)
[2022-12-11 11:24] LABS: Glucose, Whole Blood 109 mg/dL (60-115)
[2022-12-11 14:41] LABS: Vancomycin Random 13.5 mcg/mL (15-20)
--- NOTE | 2022-12-11 14:53 | HE.PHANOTE ---
Addendum entered by Olive Washington [facility] 12/12/22 14:56: through 13, AUC 465, remain on same dose, continue to monitor trends Original Note: VANCO DOSE ADJUSTMENT. BASED ON SCR AND TROUGH OF 13.5 DOSE CONTINUED AT 1500 Q 12. IF TROUGH CONTINUES TO DECREASE WILL INCREASE TO 1500Q8 TOMORROW 12/12
[2022-12-11 15:39] VITALS: BP 120/77; PULSE 52; RESP 18; TEMP 36.1; O2SAT 97
[2022-12-11 16:07] LABS: Glucose, Whole Blood 103 mg/dL (60-115)
[2022-12-11 19:54] VITALS: BP 128/81; PULSE 58; RESP 18; TEMP 36.6; O2SAT 99
[2022-12-11 20:27] LABS: Glucose, Whole Blood 112 mg/dL (60-115)
[2022-12-11] MEDS: Gabapentin 300 MG CAPSULE PO (20:33)
[2022-12-11] MEDS: QUEtiapine Fumarate 200 MG TABLET PO (20:33)
[2022-12-11] MEDS: Mirtazapine 7.5 MG TABLET PO (20:33)
[2022-12-12 03:05] VITALS: BP 106/60; PULSE 57; RESP 14; TEMP 36.6; O2SAT 99
[2022-12-12] MEDS: vancomycin HCL 1,500 MG in 0.9 % Sodium Chloride 500 ML 333.33 MG IV ×2 (03:12→15:48)
[2022-12-12 07:04] LABS: Creatinine Clr Calc Pharmacy 132.5; Estimated Glomerular Filt Rate > 60
[2022-12-12 07:36] VITALS: BP 91/60; PULSE 50; RESP 16; TEMP 36; O2SAT 96
[2022-12-12 07:45] LABS: Glucose, Whole Blood 94 mg/dL (60-115)
--- NOTE | 2022-12-12 09:01 | HO.PM.IMPN ---
Subjective Subjective Date of Service: 12/12/22 Interval History: Follow-up on cellulitis arm remains swollen with some erythema, o/w no new isses Review of Systems Gen: no fever Physical Exam Vital Signs: Vital Signs: Last Vital Signs Temp 96.8 F 12/12/22 07:36 Pulse 50 12/12/22 07:36 Resp 16 12/12/22 07:36 BP 91/60 12/12/22 07:36 Pulse Ox 96 12/12/22 07:36 O2 Del Method Room Air 12/12/22 07:36 BMI result Body Mass Index 26.2 Const: Other: General: AO X 3, no acute distress Resp: CTA bilateral CVS: S1,S2,RRR GI: +BS, NT, no distention Skin: Previously pictured area with unless erythema, but has a hard induration on right arm Neuro: motor grossly intact Psych: appropriate affect Objective Data Active Medications Acetaminophen (Acetaminophen 325 Mg Tablet) 650 mg PO Q6H PRN PRN Reason: Pain, Mild (Pain Scale 1-3) Albuterol Sulfate (Albuterol Sulfate 90 Mcg 8 Gm Inhaler) 2 puff INHALE QID PRN PRN Reason: wheezing Clonazepam (Clonazepam 1 Mg Tablet) 1 mg PO TID PRN PRN Reason: Anxiety Last Admin: 12/11/22 16:20 Dose: 1 mg Documented By: DENISE Enoxaparin Sodium (Enoxaparin Sodium 40 Mg/0.4 Ml Syringe) 40 mg SUBCUT Q24H [facility] Last Admin: 12/11/22 08:43 Dose: 40 mg Documented By: DENISE Fluoxetine HCl (Fluoxetine Hcl 20 Mg Capsule) 40 mg PO DAILY [facility] Last Admin: 12/11/22 07:47 Dose: 40 mg Documented By: DENISE Gabapentin (Gabapentin 300 Mg Capsule) 300 mg PO BEDTIME [facility] Last Admin: 12/11/22 20:33 Dose: 300 mg Documented By: NHI Gabapentin (Gabapentin 600 Mg Tablet) 600 mg PO TID [facility] Last Admin: 12/11/22 20:33 Dose: 600 mg Documented By: NHI Glucose (Glucose Gel 15 Gm Gel..Gram.) 15 gm PO Q15M PRN; Protocol PRN Reason: per Hypoglycemia Standing Ord. Dextrose (D10) 250 mls @ 750 mls/hr IV Q15M PRN; Protocol PRN Reason: per Hypoglycemia Standing Ord. Vancomycin HCl 1,500 mg/ (Sodium Chloride) 500 mls @ 333.333 mls/hr IV Q12H [facility] Last Infusion: 12/12/22 04:43 Dose: 0 mls/hr Documented By: NHI Insulin Human Lispro (Insulin Lispro 100 Unit/Ml 3 Ml Vial) 0 unit SUBCUT QIDACHS [facility]; Protocol Last Admin: 12/12/22 07:51 Dose: Not Given Documented By: MICHAELA Non-Admin Reason: No Insulin Coverage Magnesium Hydroxide (Milk Of Magnesia 30 Ml Oral.Susp) 30 ml PO DAILY PRN PRN Reason: Constipation Melatonin (Melatonin 3 Mg Tablet) 6 mg PO BEDTIME PRN PRN Reason: Insomnia Methadone HCl (Methadone Hcl 20 Mg/2 Ml Oral.Conc) 135 mg PO DAILY [facility] Last Admin: 12/11/22 07:49 Dose: 135 mg Documented By: DENISE Mirtazapine (Mirtazapine 7.5 Mg Tablet) 7.5 mg PO BEDTIME [facility] Last Admin: 12/11/22 20:33 Dose: 7.5 mg Documented By: NHI Nicotine (Nicotine 21 Mg Patch.Td24) 21 mg TRANSDERMA DAILY [facility] Last Admin: 12/11/22 07:48 Dose: 21 mg Documented By: DENISE Nicotine Polacrilex (Nicotine Polacrilex 2 Mg Gum) 2 mg BUCCAL Q2H PRN PRN Reason: Nicotine Cravings Ondansetron HCl (Ondansetron Hcl 4 Mg/2 Ml Vial) 4 mg IVPUSH Q8H PRN PRN Reason: Nausea and Vomiting Oxycodone HCl (Oxycodone Hcl Immed Release 5 Mg Tablet) 5 mg PO Q6H PRN PRN Reason: Pain, Severe (Pain Scale 7-10) Last Admin: 12/11/22 15:48 Dose: 5 mg Documented By: DENISE Pharmacy Consult (Consult Rx Vancomycin Dosing) 1 each MISCELLANE DAILY PRN PRN Reason: Consult order Quetiapine Fumarate (Quetiapine Fumarate 200 Mg Tablet) 200 mg PO BEDTIME [facility] Last Admin: 12/11/22 20:33 Dose: 200 mg Documented By: NHI Sodium Chloride (0.9 % Sodium Chloride Flush 3 Ml Syringe) 3 ml IVFLUSH QSHIFT [facility] Last Admin: 12/11/22 20:33 Dose: 3 ml Documented By: NHI Labs 12/06/22 00:12 12/12/22 05:58 Labs: Laboratory Results - last 24 hr 12/11/22 12/11/22 12/11/22 11:16 14:09 15:58 Estim Creat Clear Calc Estimated GFR POC Glucose 109 103 Random Vancomycin 13.5 L 12/11/22 12/12/22 12/12/22 20:20 05:58 07:41 Estim Creat Clear Calc 132.5 Estimated GFR > 60 POC Glucose 112 94 Random Vancomycin Microbiology Microbiology Results: Microbiology 12/11/22 08:06 Blood Culture - Final Blood - Venous Assessment and Plan (1) MRSA bacteremia: Status: Acute (2) Cellulitis of arm: Status: Acute Plan 32-year-old male with a history anxiety, depression diabetes, asthma, IVDU? on methadone presents to the emergency with bilatareal left arm pain, swelling and redness consistent with cellulitis Cellulitis of both oneyda from IV drug injection and diabetes Sepsis, MRSA bacteremia--POA -No endocarditis -Stop Zosyn 12/06 to 12/11 -Continue Vanco 12/06/22 -ID recommend halfway treatment -repeat blood cultures 12/11, PICC line on Tuesday -consider MRI if arm remains swollen IVDU - continue home dose of methadone -? p.r.n. Atarax for withdrawal symptoms -hold clonidine due to low BP -?Addiction Medicine following HypOtension on admission, -resolved. Anemia-, no source of blood loss, monitor ?diabetes ?non compliant with diabetic diet or metformin - resume metformin - SSI, POC ?tobacco dependence ?smoking cessation has been advised -NRT anxiety/depression, no SI -continue home clonazepam, fluoxetine, seroquel, mirtazapine -will check EKG to assess Qtc dvt ppx - lovenox code status - full code Need for inpt: IV Abx for cellulitis and MRSA bacteremia in pt with IV drug use and diabetes, await cultures Time Spent With Patient Time: Total time managing care of this patient today ____ minutes. Quality Stroke Does the patient have a stroke diagnosis?: No VTE Prior VTE?: No VTE Risk Level:: Medical - moderate - high VTE Device Contraindication: Treatment Not Indicated VTE Drug Contraindication: N/A - Med Ordered
[2022-12-12] MEDS: methADONE HCl 20 MG/2 ML ORAL.CONC 135 MG PO (09:49)
[2022-12-12] MEDS: Gabapentin 600 MG TABLET PO ×3 (09:49→21:16)
[2022-12-12] MEDS: Enoxaparin Sodium 40 MG/0.4 ML SYRINGE SUBCUT (09:49)
[2022-12-12] MEDS: 0.9 % Sodium Chloride Flush 3 ML SYRINGE IVFLUSH ×3 (09:49→21:16)
[2022-12-12] MEDS: Nicotine 21 MG PATCH.TD24 TRANSDERMA (09:50)
[2022-12-12] MEDS: FLUoxetine HCl 20 MG CAPSULE 40 MG PO (09:50)
[2022-12-12 11:22] LABS: Glucose, Whole Blood 169 mg/dL (60-115)
[2022-12-12] MEDS: oxyCODONE HCl Immed Release 5 MG TABLET PO ×2 (14:00→21:16)
[2022-12-12] MEDS: clonazePAM 1 MG TABLET PO ×2 (14:30→21:16)
[2022-12-12 15:28] VITALS: BP 118/73; PULSE 50; RESP 18; TEMP 36.9; O2SAT 98
[2022-12-12 16:15] LABS: Glucose, Whole Blood 136 mg/dL (60-115)
[2022-12-12 20:00] VITALS: BP 116/69; PULSE 58; RESP 19; TEMP 36.2; O2SAT 98
[2022-12-12 20:17] LABS: Glucose, Whole Blood 133 mg/dL (60-115)
[2022-12-12] MEDS: Mirtazapine 7.5 MG TABLET PO (21:16)
[2022-12-12] MEDS: QUEtiapine Fumarate 200 MG TABLET PO (21:16)
[2022-12-12] MEDS: Gabapentin 300 MG CAPSULE PO (21:16)
--- NOTE | 2022-12-12 21:18 | W.PM.IDCN ---
History of Present Illness Data of Consult Service Date: 12/10/22 Requesting physician: Kal Ruiz Primary Care Provider: Orlando Mahmood III, MD HPI Reason for consult: MRSA bacteremia He presents with redness right arm and pain in it. He has 5/8 blood culture MRSA. He has no fever or chills now. He is IV drug user. Review of Systems Review of Systems: Yes all other systems are reviewed and are negative PMFSH Past Medical History Medical History Anxiety Asthma Cocaine use with cocaine-induced disorder Depression Diabetes Diabetes IVDU (intravenous drug user) Major depressive disorder, recurrent severe without psychotic features Opiate dependence, continuous Family History Family History Father Heart disease Family history: reviewed and not pertinent Social History Social History Household Members: Family Household Members Other:: Mother and brother Housing: House Do you presently have visiting nurse or other home services: No Alcohol intake: never Patient Tobacco Use Status: Current everyday Tobacco user Tobacco use type: Cigarette Cigarette Packs Per Day: 1 Cigarettes Per Day: 20.0 Years Smoked: 15 e-Cigarette/Vaping Use: Currently Using Second Hand Smoke Exposure: Yes Substance Use Type: Crack/Cocaine and Opiates Advance Directives Date on File: 01/30/21 service: No Current occupational status: unemployed Sexual orientation: Straight/Heterosexual Meds Allergies Allergy/AdvReac Type Severity Reaction Status Date / Time Pertussis Vaccines Allergy Mild HIVES Verified 12/05/22 22:58 [PERTUSSIS VACCINES] Active Medications: Current Medications Acetaminophen (Acetaminophen 325 Mg Tablet) 650 mg PO Q6H PRN PRN Reason: Pain, Mild (Pain Scale 1-3) Albuterol Sulfate (Albuterol Sulfate 90 Mcg 8 Gm Inhaler) 2 puff INHALE QID PRN PRN Reason: wheezing Clonazepam (Clonazepam 1 Mg Tablet) 1 mg PO TID PRN PRN Reason: Anxiety Last Admin: 12/12/22 21:16 Dose: 1 mg Enoxaparin Sodium (Enoxaparin Sodium 40 Mg/0.4 Ml Syringe) 40 mg SUBCUT Q24H [facility] Last Admin: 12/12/22 09:49 Dose: 40 mg Fluoxetine HCl (Fluoxetine Hcl 20 Mg Capsule) 40 mg PO DAILY [facility] Last Admin: 12/12/22 09:50 Dose: 40 mg Gabapentin (Gabapentin 300 Mg Capsule) 300 mg PO BEDTIME [facility] Last Admin: 12/12/22 21:16 Dose: 300 mg Gabapentin (Gabapentin 600 Mg Tablet) 600 mg PO TID [facility] Last Admin: 12/12/22 21:16 Dose: 600 mg Glucose (Glucose Gel 15 Gm Gel..Gram.) 15 gm PO Q15M PRN; Protocol PRN Reason: per Hypoglycemia Standing Ord. Dextrose (D10) 250 mls @ 750 mls/hr IV Q15M PRN; Protocol PRN Reason: per Hypoglycemia Standing Ord. Vancomycin HCl 1,500 mg/ (Sodium Chloride) 500 mls @ 333.333 mls/hr IV Q12H [facility] Last Infusion: 12/12/22 18:00 Dose: Infused Insulin Human Lispro (Insulin Lispro 100 Unit/Ml 3 Ml Vial) 0 unit SUBCUT QIDACHS [facility]; Protocol Last Admin: 12/12/22 21:17 Dose: Not Given Magnesium Hydroxide (Milk Of Magnesia 30 Ml Oral.Susp) 30 ml PO DAILY PRN PRN Reason: Constipation Melatonin (Melatonin 3 Mg Tablet) 6 mg PO BEDTIME PRN PRN Reason: Insomnia Methadone HCl (Methadone Hcl 20 Mg/2 Ml Oral.Conc) 135 mg PO DAILY [facility] Last Admin: 12/12/22 09:49 Dose: 135 mg Mirtazapine (Mirtazapine 7.5 Mg Tablet) 7.5 mg PO BEDTIME [facility] Last Admin: 12/12/22 21:16 Dose: 7.5 mg Nicotine (Nicotine 21 Mg Patch.Td24) 21 mg TRANSDERMA DAILY [facility] Last Admin: 12/12/22 09:50 Dose: 21 mg Nicotine Polacrilex (Nicotine Polacrilex 2 Mg Gum) 2 mg BUCCAL Q2H PRN PRN Reason: Nicotine Cravings Ondansetron HCl (Ondansetron Hcl 4 Mg/2 Ml Vial) 4 mg IVPUSH Q8H PRN PRN Reason: Nausea and Vomiting Oxycodone HCl (Oxycodone Hcl Immed Release 5 Mg Tablet) 5 mg PO Q6H PRN PRN Reason: Pain, Severe (Pain Scale 7-10) Last Admin: 12/12/22 21:16 Dose: 5 mg Pharmacy Consult (Consult Rx Vancomycin Dosing) 1 each MISCELLANE DAILY PRN PRN Reason: Consult order Quetiapine Fumarate (Quetiapine Fumarate 200 Mg Tablet) 200 mg PO BEDTIME [facility] Last Admin: 12/12/22 21:16 Dose: 200 mg Sodium Chloride (0.9 % Sodium Chloride Flush 3 Ml Syringe) 3 ml IVFLUSH QSHIFT [facility] Last Admin: 12/12/22 21:16 Dose: 3 ml Home Medications Medication Instructions Recorded Confirmed Last Taken Type clonazepam 1 mg tablet 1 tab PO TID 01/30/21 12/06/22 12/05/22 History fluoxetine 40 mg capsule 1 cap PO DAILY 01/30/21 12/06/22 12/05/22 History gabapentin 300 mg capsule 1 cap PO BEDTIME 01/30/21 12/06/22 2 Days Ago History ~02/20/22 gabapentin 600 mg tablet 1 tab PO TID 01/30/21 12/06/22 2 Days Ago History ~02/20/22 methadone 10 mg/mL oral 135 mg PO DAILY 01/30/21 12/06/22 12/05/22 History concentrate (Methadone Intensol) albuterol sulfate 90 mcg/actuation 2 puff inhalation QID PRN wheezing 02/22/22 12/06/22 Unknown History aerosol inhaler (ProAir HFA) quetiapine 200 mg tablet 200 mg PO BEDTIME 12/06/22 12/06/22 Unknown History Physical Exam Vital Signs: Vital Signs: Last Vital Signs Temp 97.1 F 12/12/22 20:00 Pulse 58 12/12/22 20:00 Resp 19 12/12/22 20:00 BP 116/69 12/12/22 20:00 Pulse Ox 98 12/12/22 20:00 O2 Del Method Room Air 12/12/22 20:00 BMI result Body Mass Index 26.2 Const: General: cooperative HEENT: Head: Yes normal to inspection Face and sinus: Yes normal facial exam Mouth: Normal oral and palatal mucosa present Teeth and gingiva: dentition normal Eyes: General: appearance normal, both eyes and all related structures Pupils: Equal, round and reactive pupils present Resp: Effort & Inspection: normal respiratory effort Cardio: Rate: regular rate Rhythm: regular rhythm GI: Palpation (GI): Soft to palpation and nontender : General: Yes no CVA tenderness Back/Spine/Pelvis: Back: no CVA tenderness Skin: General skin exam: no rashes or lesions noted Neuro: General: moves all extremities Cranial nerves: Yes Equal, round and reactive pupils present Extrem: Other: right arm reddened with track ratliff Psych: Appearance: grossly normal Results Labs 12/06/22 00:12 12/12/22 05:58 Labs: BMP 12/12/22 05:58 Creatinine 0.80 Microbiology Microbiology Results: Microbiology 12/11/22 08:35 Blood - Venous Blood Culture - Preliminary No growth after 24 hours. 12/11/22 08:06 Blood - Venous Blood Culture - Final 12/06/22 00:12 Blood - Venous Blood Culture - Final Methicillin Res Staph Aureus 12/06/22 00:12 Blood - Venous Blood Culture - Final Coag negative Staphylococcus Assessment and Plan (1) MRSA bacteremia: Status: Acute He has MRSA blood culture,likely due to IVDU. He needs still likely four week IVDU. (2) Cellulitis of arm: Status: Acute (3) Opiate dependence, continuous: Status: Acute Plan Four weeks IV Vancomycin and weekly creatinine,Vancomycin trough Check echo Check HIV and Hepatitis C. Time Spent With Patient Time: Total time managing care of this patient today ____ minutes.
--- NOTE | 2022-12-13 00:59 | PC.NURSE ---
pt's 18G REJ IV lost, 3 different nurses tried to put new IV line in including supervisor silvering department, failed, notified called ED doctor for the ultrasound to guide the IV line. 20G SADE, 20G Lfoot. inserted.
[2022-12-13] MEDS: vancomycin HCL 1,500 MG in 0.9 % Sodium Chloride 500 ML 333.33 MG IV (03:18)
[2022-12-13 03:26] VITALS: BP 91/67; PULSE 51; RESP 14; TEMP 36.1; O2SAT 97
[2022-12-13 07:01] VITALS: BP 98/54; PULSE 54; RESP 16; TEMP 36.1; O2SAT 97
[2022-12-13 07:15] LABS: Creatinine Clr Calc Pharmacy 143.3; Estimated Glomerular Filt Rate > 60
[2022-12-13 07:23] LABS: Glucose, Whole Blood 80 mg/dL (60-115)
--- NOTE | 2022-12-13 07:45 | P.PNIM_ITS ---
Subjective Subjective Date of Service: 12/13/22 Interval History: Follow-up on cellulitis right arm in pt with iv drug use arm remains remains swelling, no signs of compartmental synd Review of Systems Gen: no fever Physical Exam Vital Signs: Vital Signs: Last Vital Signs Temp 97 F 12/13/22 07:01 Pulse 54 12/13/22 07:01 Resp 16 12/13/22 07:01 BP 98/54 L 12/13/22 07:01 Pulse Ox 97 12/13/22 07:01 O2 Del Method Room Air 12/13/22 07:01 BMI result Body Mass Index 26.2 Const: Other: General: AO X 3, no acute distress Resp: CTA bilateral CVS: S1,S2,RRR GI: +BS, NT, no distention Skin: Previously pictured area with unless erythema, but has a hard induration on right arm Neuro: motor grossly intact Psych: appropriate affect Objective Data Active Medications Acetaminophen (Acetaminophen 325 Mg Tablet) 650 mg PO Q6H PRN PRN Reason: Pain, Mild (Pain Scale 1-3) Albuterol Sulfate (Albuterol Sulfate 90 Mcg 8 Gm Inhaler) 2 puff INHALE QID PRN PRN Reason: wheezing Clonazepam (Clonazepam 1 Mg Tablet) 1 mg PO TID PRN PRN Reason: Anxiety Last Admin: 12/12/22 21:16 Dose: 1 mg Documented By: NHI Enoxaparin Sodium (Enoxaparin Sodium 40 Mg/0.4 Ml Syringe) 40 mg SUBCUT Q24H [facility] Last Admin: 12/12/22 09:49 Dose: 40 mg Documented By: MICHAELA Fluoxetine HCl (Fluoxetine Hcl 20 Mg Capsule) 40 mg PO DAILY [facility] Last Admin: 12/12/22 09:50 Dose: 40 mg Documented By: MICHAELA Gabapentin (Gabapentin 300 Mg Capsule) 300 mg PO BEDTIME [facility] Last Admin: 12/12/22 21:16 Dose: 300 mg Documented By: NHI Gabapentin (Gabapentin 600 Mg Tablet) 600 mg PO TID [facility] Last Admin: 12/12/22 21:16 Dose: 600 mg Documented By: NHI Glucose (Glucose Gel 15 Gm Gel..Gram.) 15 gm PO Q15M PRN; Protocol PRN Reason: per Hypoglycemia Standing Ord. Dextrose (D10) 250 mls @ 750 mls/hr IV Q15M PRN; Protocol PRN Reason: per Hypoglycemia Standing Ord. Vancomycin HCl 1,500 mg/ (Sodium Chloride) 500 mls @ 333.333 mls/hr IV Q12H [facility] Last Infusion: 12/13/22 04:49 Dose: 0 mls/hr Documented By: NHI Insulin Human Lispro (Insulin Lispro 100 Unit/Ml 3 Ml Vial) 0 unit SUBCUT QIDACHS [facility]; Protocol Last Admin: 12/12/22 21:17 Dose: Not Given Documented By: NHI Non-Admin Reason: No Insulin Coverage Magnesium Hydroxide (Milk Of Magnesia 30 Ml Oral.Susp) 30 ml PO DAILY PRN PRN Reason: Constipation Melatonin (Melatonin 3 Mg Tablet) 6 mg PO BEDTIME PRN PRN Reason: Insomnia Methadone HCl (Methadone Hcl 20 Mg/2 Ml Oral.Conc) 135 mg PO DAILY [facility] Last Admin: 12/12/22 09:49 Dose: 135 mg Documented By: MICHAELA Mirtazapine (Mirtazapine 7.5 Mg Tablet) 7.5 mg PO BEDTIME [facility] Last Admin: 12/12/22 21:16 Dose: 7.5 mg Documented By: NHI Nicotine (Nicotine 21 Mg Patch.Td24) 21 mg TRANSDERMA DAILY [facility] Last Admin: 12/12/22 09:50 Dose: 21 mg Documented By: MICHAELA Nicotine Polacrilex (Nicotine Polacrilex 2 Mg Gum) 2 mg BUCCAL Q2H PRN PRN Reason: Nicotine Cravings Ondansetron HCl (Ondansetron Hcl 4 Mg/2 Ml Vial) 4 mg IVPUSH Q8H PRN PRN Reason: Nausea and Vomiting Oxycodone HCl (Oxycodone Hcl Immed Release 5 Mg Tablet) 5 mg PO Q6H PRN PRN Reason: Pain, Severe (Pain Scale 7-10) Last Admin: 12/12/22 21:16 Dose: 5 mg Documented By: NHI Pharmacy Consult (Consult Rx Vancomycin Dosing) 1 each MISCELLANE DAILY PRN PRN Reason: Consult order Quetiapine Fumarate (Quetiapine Fumarate 200 Mg Tablet) 200 mg PO BEDTIME [facility] Last Admin: 12/12/22 21:16 Dose: 200 mg Documented By: NHI Sodium Chloride (0.9 % Sodium Chloride Flush 3 Ml Syringe) 3 ml IVFLUSH QSHIFT [facility] Last Admin: 12/12/22 21:16 Dose: 3 ml Documented By: NHI Labs 12/06/22 00:12 12/13/22 06:10 Labs: Laboratory Results - last 24 hr 12/12/22 12/12/22 12/12/22 07:41 11:18 14:10 Estim Creat Clear Calc Estimated GFR POC Glucose 94 169 H Vancomycin Trough 13.0 12/12/22 12/12/22 12/13/22 16:11 20:13 06:10 Estim Creat Clear Calc 143.3 Estimated GFR > 60 POC Glucose 136 H 133 H Vancomycin Trough 12/13/22 07:02 Estim Creat Clear Calc Estimated GFR POC Glucose 80 Vancomycin Trough Microbiology Microbiology Results: Microbiology 12/11/22 08:35 Blood Culture - Preliminary Blood - Venous No growth after 24 hours. Assessment and Plan (1) MRSA bacteremia: Status: Acute (2) Cellulitis of arm: Status: Acute Plan 32-year-old male with a history anxiety, depression diabetes, asthma, IVDU? on methadone presents to the emergency with bilatareal left arm pain, swelling and redness consistent with cellulitis Cellulitis of both arams R >> L from IV drug injection and diabetes Sepsis, MRSA bacteremia--POA -No endocarditis on echo -was on Zosyn 12/06 to 12/11 (6 days) -Continue Vanco 12/06/22 to present -ID recommend care home treatment -repeat blood cultures 12/11, PICC line today 12/13 -CT of the arm today IVDU - continue home dose of methadone -? p.r.n. Atarax for withdrawal symptoms -holding clonidine due to low BP -?Addiction Medicine following HypOtension on admission, -resolved, and in general runs low. Anemia-, no source of blood loss, monitor ?Diabetes ?non compliant with diabetic diet or metformin - resume metformin - SSI, POC ?Tobacco dependence ?smoking cessation has been advised -NRT anxiety/depression, no SI -continue home clonazepam, fluoxetine, seroquel, mirtazapine -will check EKG to assess Qtc dvt ppx - lovenox code status - full code Need for inpt: IV Abx for cellulitis and MRSA bacteremia in pt with IV drug use and diabetes, await cultures Time Spent With Patient Time: Total time managing care of this patient today ____ minutes. Quality Stroke Does the patient have a stroke diagnosis?: No VTE Prior VTE?: No VTE Risk Level:: Medical - moderate - high VTE Device Contraindication: Treatment Not Indicated VTE Drug Contraindication: N/A - Med Ordered
[2022-12-13] MEDS: Nicotine 21 MG PATCH.TD24 TRANSDERMA (08:09)
[2022-12-13] MEDS: Enoxaparin Sodium 40 MG/0.4 ML SYRINGE SUBCUT (08:09)
[2022-12-13] MEDS: methADONE HCl 20 MG/2 ML ORAL.CONC 135 MG PO (08:10)
[2022-12-13] MEDS: oxyCODONE HCl Immed Release 5 MG TABLET PO ×2 (08:10→16:26)
[2022-12-13] MEDS: FLUoxetine HCl 20 MG CAPSULE 40 MG PO (08:10)
[2022-12-13] MEDS: clonazePAM 1 MG TABLET PO ×2 (08:10→16:27)
[2022-12-13] MEDS: Gabapentin 600 MG TABLET PO ×3 (08:10→20:48)
[2022-12-13 09:10] LABS: Hematocrit 33.6 % (42.0-52.0); Hemoglobin 9.8 g/dl (14.0-18.0); Mean Corpuscular HGB Conc 29.2 g/dl (31.0-36.0); Mean Corpuscular Hemoglobin 20.5 pg (27.0-33.0); Mean Corpuscular Volume 70.3 fL (80.0-98.0); Mean Platelet Volume 10.1 fL (9.4-12.4); PLT CLUMP 1; Red Blood Count 4.78 X10*6/uL (4.60-5.80); Red Cell Distribution Width 17.6 % (11.0-16.0)
[2022-12-13 09:14] LABS: Platelet Count 337 X10*3/uL (160-400)
--- NOTE | 2022-12-13 09:15 | MHC.RECOVRN ---
Met with pt in 359 to provide support. Pt sitting in bed, awake, alert, easily engages in conversation. Pt reports feeling much better and is awaiting PICC line. Pt reports doing well on 135 mg methadone and had mostly been using cocaine, IV. Pt believes xylazine was in the cocaine and caused wounds on bilateral arms. Pt has been living with his mother and reports she visits the hospital every day and is supportive. Pt comfortable, denies questions or concerns at this time.
[2022-12-13 09:31] LABS: Estimated Average Glucose 103 mg/dL; Hemoglobin A1C 88.7028 umol/L; Hemoglobin A1c % 5.2 %
--- NOTE | 2022-12-13 09:44 | MHC.CM.PN ---
Addendum entered by Dina Swanson 12/13/22 09:51: [facility] can accept pending the following: Payor auth Methadone guest dosing via [employer] Less than 30 day order ATB (presently on Vanco) Original Note: Review of EMR notes pt will need 4 weeks of IV ATB for staph bacteremia: Discussed options w/pt who is in agreement with referral to [facility]. Referral placed: will upload PICC report and ATB info when available. CM to follow for finalization of d/c needs.
[2022-12-13 11:12] LABS: Glucose, Whole Blood 118 mg/dL (60-115)
[2022-12-13 16:00] VITALS: BP 118/67; PULSE 54; RESP 17; TEMP 36.7; O2SAT 96
--- NOTE | 2022-12-13 16:19 | HO.PICC ---
PICC Line Insertion NPICC Diagnosis: [MRSA BACTEREMIA] Indication: [[employer] ANTIBX] Pertinent Labs: [REVIEWED] Technique: Following informed consent including risks, benefits and alternatives and using sterile technique including cap and mask, sterile gown, glove and drape, the [LEFT] arm was prepped and draped in the usual sterile fashion of full barrier technique with CHG. Following completion of Hollins Protocol the skin and soft tissues were anesthetized with 1% Lidocaine plain. Using ultrasound guidance, [LEFT BRACHIAL] vein access was obtained ON FIRST ATTEMPT. Over an 0.018 wire through peel-away sheath, a [4 FR SINGLE LUMEN PASV] PICC line was positioned. Catheter length is [46CM] internal length, [1CM] external length, for a total trimmed length of [47CM]. The procedure was performed in [RM.272]. Tip verification was performed by Maverick Calabrese with Sherlock 3CG. Tip located in SVC. Ultrasound was used to document vein patency and for needle entry. A formal ultrasound picture and cardiac rhythm strip was recorded. [employer] Mechanic has released the line for use and it is currently dressed with a StatLock, Tegaderm, and CHG disc. Verification has been performed for blood return and line patency. Arm Circumference: [29CM] Equipment: [BARD SOLO PICC ] Catheter Type: [4FR SINGLE LUMEN PASV LINE] Lot #: [id number]
[2022-12-13] MEDS: 0.9 % Sodium Chloride Flush 3 ML SYRINGE IVFLUSH ×2 (16:30→23:25)
[2022-12-13 16:31] LABS: Glucose, Whole Blood 119 mg/dL (60-115)
[2022-12-13 17:03] LABS: Vancomycin Trough 8.8 mcg/mL (10.0-20.0)
--- NOTE | 2022-12-13 17:23 | HE.PHANOTE ---
VANCO DOSING ADJUSTMENT BASED ON SCR AND TROUGH OF 8.8 DOSE INCREASED TO 1250 Q 8. NEXT TROUGH AT 0800 12/14
[2022-12-13] MEDS: vancomycin HCL 1,250 MG in 0.9 % Sodium Chloride 250 ML 166.67 MG IV (18:01)
[2022-12-13 19:31] VITALS: BP 107/66; PULSE 53; RESP 18; TEMP 36.2; O2SAT 96
[2022-12-13 19:57] LABS: Glucose, Whole Blood 138 mg/dL (60-115)
[2022-12-13] MEDS: Mirtazapine 7.5 MG TABLET PO (20:48)
[2022-12-13] MEDS: QUEtiapine Fumarate 200 MG TABLET PO (20:48)
[2022-12-13] MEDS: Gabapentin 300 MG CAPSULE PO (20:48)
[2022-12-14] MEDS: vancomycin HCL 1,250 MG in 0.9 % Sodium Chloride 250 ML 166.67 MG IV ×3 (01:13→17:08)
[2022-12-14 03:41] VITALS: BP 106/57; PULSE 53; RESP 16; TEMP 36; O2SAT 96
[2022-12-14 06:59] VITALS: BP 98/48; PULSE 54; RESP 16; TEMP 36.2; O2SAT 96
[2022-12-14 07:06] LABS: Glucose, Whole Blood 90 mg/dL (60-115)
[2022-12-14] MEDS: Enoxaparin Sodium 40 MG/0.4 ML SYRINGE SUBCUT (08:09)
[2022-12-14] MEDS: Nicotine 21 MG PATCH.TD24 TRANSDERMA (08:10)
[2022-12-14] MEDS: methADONE HCl 20 MG/2 ML ORAL.CONC 135 MG PO (08:10)
[2022-12-14] MEDS: oxyCODONE HCl Immed Release 5 MG TABLET PO ×3 (08:11→21:43)
[2022-12-14] MEDS: Gabapentin 600 MG TABLET PO ×3 (08:11→21:43)
[2022-12-14] MEDS: 0.9 % Sodium Chloride Flush 3 ML SYRINGE IVFLUSH ×3 (08:12→23:12)
[2022-12-14] MEDS: FLUoxetine HCl 20 MG CAPSULE 40 MG PO (08:13)
[2022-12-14] MEDS: clonazePAM 1 MG TABLET PO ×3 (08:15→21:44)
[2022-12-14 08:41] LABS: Creatinine Clr Calc Pharmacy 134.2; Estimated Glomerular Filt Rate > 60; Vancomycin Random 15.7 mcg/mL (15-20)
--- NOTE | 2022-12-14 08:58 | HE.PHANOTE ---
Addendum entered by Lian Up chhaya 12/14/22 09:02: Next draw is 12/15 @0800 Original Note: Vancomycin Dosing Addendum Patients trough came back at 15.7. Continue dose 1250 mg Q8H. Predicted AUC 566 mg/L/hr.
[2022-12-14 11:09] LABS: Glucose, Whole Blood 115 mg/dL (60-115)
--- NOTE | 2022-12-14 12:49 | P.PNIM_ITS ---
Subjective Subjective Date of Service: 12/15/22 Interval History: Follow-up on cellulitis right arm in pt with iv drug use Review of Systems arm remains remains swelling no signs of compartmental synd Physical Exam Vital Signs: Vital Signs: Last Vital Signs Temp 97.1 F 12/14/22 06:59 Pulse 54 12/14/22 06:59 Resp 16 12/14/22 06:59 BP 98/48 L 12/14/22 06:59 Pulse Ox 96 12/14/22 06:59 O2 Del Method Room Air 12/14/22 06:59 BMI result Body Mass Index 26.2 General: AO X 3, no acute distress Resp:? CTA bilateral CVS: S1,S2,RRR GI: +BS, NT, no distention Skin:? Previously pictured area with unless erythema, but has a hard induration on right arm Neuro:? motor grossly intact Psych: appropriate affect Objective Data Active Medications Acetaminophen (Acetaminophen 325 Mg Tablet) 650 mg PO Q6H PRN PRN Reason: Pain, Mild (Pain Scale 1-3) Albuterol Sulfate (Albuterol Sulfate 90 Mcg 8 Gm Inhaler) 2 puff INHALE QID PRN PRN Reason: wheezing Clonazepam (Clonazepam 1 Mg Tablet) 1 mg PO TID PRN PRN Reason: Anxiety Last Admin: 12/13/22 08:10 Dose: 1 mg Documented By: CASSIUS Comments: given scan didn't go through Enoxaparin Sodium (Enoxaparin Sodium 40 Mg/0.4 Ml Syringe) 40 mg SUBCUT Q24H [facility] Last Admin: 12/14/22 08:09 Dose: 40 mg Documented By: CASSIUS Fluoxetine HCl (Fluoxetine Hcl 20 Mg Capsule) 40 mg PO DAILY [facility] Last Admin: 12/14/22 08:13 Dose: 40 mg Documented By: CASSIUS Gabapentin (Gabapentin 300 Mg Capsule) 300 mg PO BEDTIME [facility] Last Admin: 12/13/22 20:48 Dose: 300 mg Documented By: NHI Gabapentin (Gabapentin 600 Mg Tablet) 600 mg PO TID [facility] Last Admin: 12/14/22 08:11 Dose: 600 mg Documented By: CASSIUS Glucose (Glucose Gel 15 Gm Gel..Gram.) 15 gm PO Q15M PRN; Protocol PRN Reason: per Hypoglycemia Standing Ord. Dextrose (D10) 250 mls @ 750 mls/hr IV Q15M PRN; Protocol PRN Reason: per Hypoglycemia Standing Ord. Vancomycin HCl 1,250 mg/ (Sodium Chloride) 250 mls @ 166.667 mls/hr IV Q8H [facility] Last Infusion: 12/14/22 11:10 Dose: 0 mls/hr Documented By: CASSIUS Insulin Human Lispro (Insulin Lispro 100 Unit/Ml 3 Ml Vial) 0 unit SUBCUT QIDACHS [facility]; Protocol Last Admin: 12/14/22 11:01 Dose: Not Given Documented By: CASSIUS Non-Admin Reason: No Insulin Coverage Magnesium Hydroxide (Milk Of Magnesia 30 Ml Oral.Susp) 30 ml PO DAILY PRN PRN Reason: Constipation Melatonin (Melatonin 3 Mg Tablet) 6 mg PO BEDTIME PRN PRN Reason: Insomnia Methadone HCl (Methadone Hcl 20 Mg/2 Ml Oral.Conc) 135 mg PO DAILY [facility] Last Admin: 12/14/22 08:10 Dose: 135 mg Documented By: CASSIUS Mirtazapine (Mirtazapine 7.5 Mg Tablet) 7.5 mg PO BEDTIME [facility] Last Admin: 12/13/22 20:48 Dose: 7.5 mg Documented By: NHI Nicotine (Nicotine 21 Mg Patch.Td24) 21 mg TRANSDERMA DAILY [facility] Last Admin: 12/14/22 08:10 Dose: 21 mg Documented By: CASSIUS Nicotine Polacrilex (Nicotine Polacrilex 2 Mg Gum) 2 mg BUCCAL Q2H PRN PRN Reason: Nicotine Cravings Ondansetron HCl (Ondansetron Hcl 4 Mg/2 Ml Vial) 4 mg IVPUSH Q8H PRN PRN Reason: Nausea and Vomiting Oxycodone HCl (Oxycodone Hcl Immed Release 5 Mg Tablet) 5 mg PO Q6H PRN PRN Reason: Pain, Severe (Pain Scale 7-10) Last Admin: 12/14/22 08:11 Dose: 5 mg Documented By: CASSIUS Pharmacy Consult (Consult Rx Vancomycin Dosing) 1 each MISCELLANE DAILY PRN PRN Reason: Consult order Quetiapine Fumarate (Quetiapine Fumarate 200 Mg Tablet) 200 mg PO BEDTIME [facility] Last Admin: 12/13/22 20:48 Dose: 200 mg Documented By: HO.CHOIP Sodium Chloride (0.9 % Sodium Chloride Flush 3 Ml Syringe) 3 ml IVFLUSH QSHIFT [facility] Last Admin: 12/14/22 08:12 Dose: 3 ml Documented By: CASSIUS Labs 12/13/22 09:01 12/14/22 08:06 Labs: Laboratory Results - last 24 hr 12/13/22 12/13/22 12/13/22 16:24 16:27 19:34 Estim Creat Clear Calc Estimated GFR POC Glucose 119 H 138 H Vancomycin Trough 8.8 L Random Vancomycin 12/14/22 12/14/22 12/14/22 07:01 08:06 08:06 Estim Creat Clear Calc 134.2 Estimated GFR > 60 POC Glucose 90 Vancomycin Trough Random Vancomycin 15.7 12/14/22 10:59 Estim Creat Clear Calc Estimated GFR POC Glucose 115 Vancomycin Trough Random Vancomycin Microbiology Microbiology Results: Microbiology 12/11/22 08:35 Blood Culture - Preliminary Blood - Venous No growth after 48 hours. Assessment and Plan (1) MRSA bacteremia: Status: Acute (2) Cellulitis of arm: Status: Acute Plan 32-year-old male with a history anxiety, depression diabetes, asthma, IVDU? on methadone presents to the emergency with bilatareal left arm pain, swelling and redness consistent with cellulitis Cellulitis of both arams R >> L from IV drug injection and diabetes Sepsis, MRSA bacteremia--POA arm looks similar to yesterday-ct right arm:?Prominent circumferential subcutaneous edema with associated skin thickening, likely indicating cellulitis. -No endocarditis on echo -was on Zosyn 12/06 to 12/11 (6 days) -Continue Vanco 12/06/22 to present -ID recommend [facility] treatment -repeat blood cultures 12/11, PICC line today 12/13 ct right arm: worsening cellulitis , we will add ortho eval. IVDU - continue home dose of methadone -? p.r.n. Atarax for withdrawal symptoms -holding clonidine due to low BP -?Addiction Medicine following HypOtension on admission, -resolved, and in general runs low. Anemia-, no source of blood loss, monitor ?Diabetes ?non compliant with diabetic diet or metformin - resume metformin - SSI, POC ?Tobacco dependence ?smoking cessation has been advised -NRT anxiety/depression, no SI -continue home clonazepam, fluoxetine, seroquel, mirtazapine -will check EKG to assess Qtc dvt ppx - lovenox code status - full code Need for inpt: IV Abx for cellulitis and MRSA bacteremia in pt with IV drug use and diabetes, await cultures Time Spent With Patient Time: Total time managing care of this patient today ____ minutes. Quality Stroke Does the patient have a stroke diagnosis?: No VTE Prior VTE?: No VTE Risk Level:: Medical - moderate - high VTE Device Contraindication: Treatment Not Indicated VTE Drug Contraindication: N/A - Med Ordered
[2022-12-14 15:23] VITALS: BP 103/52; PULSE 55; RESP 20; TEMP 36.1; O2SAT 96
[2022-12-14 16:31] LABS: Glucose, Whole Blood 121 mg/dL (60-115)
[2022-12-14 19:20] VITALS: BP 100/58; PULSE 51; RESP 20; TEMP 36; O2SAT 97
[2022-12-14 20:23] LABS: Glucose, Whole Blood 110 mg/dL (60-115)
[2022-12-14 21:41] VITALS: BP 109/63; PULSE 55; RESP 18
[2022-12-14] MEDS: Gabapentin 300 MG CAPSULE PO (21:43)
[2022-12-14] MEDS: Mirtazapine 7.5 MG TABLET PO (21:43)
[2022-12-14] MEDS: QUEtiapine Fumarate 200 MG TABLET PO (21:43)
[2022-12-15] MEDS: vancomycin HCL 1,250 MG in 0.9 % Sodium Chloride 250 ML 166.67 MG IV (01:39)
[2022-12-15] MEDS: oxyCODONE HCl Immed Release 5 MG TABLET PO ×4 (03:32→22:04)
[2022-12-15 03:45] VITALS: BP 100/55; PULSE 53; RESP 14; TEMP 36.6; O2SAT 97
[2022-12-15 06:59] VITALS: BP 101/59; PULSE 57; RESP 16; TEMP 36.4; O2SAT 97
[2022-12-15 07:10] LABS: Glucose, Whole Blood 88 mg/dL (60-115)
[2022-12-15] MEDS: Nicotine 21 MG PATCH.TD24 TRANSDERMA (07:18)
[2022-12-15] MEDS: FLUoxetine HCl 20 MG CAPSULE 40 MG PO (07:18)
[2022-12-15] MEDS: Gabapentin 600 MG TABLET PO ×3 (07:18→22:03)
[2022-12-15] MEDS: methADONE HCl 20 MG/2 ML ORAL.CONC 135 MG PO (07:18)
[2022-12-15 09:12] LABS: Creatinine Clr Calc Pharmacy 139.5; Estimated Glomerular Filt Rate > 60
--- NOTE | 2022-12-15 09:17 | P.CONOP_ITS ---
History of Present Illness HPI Consult date: 12/15/22 Chief complaint: Cellulitis of both arms Narrative: 32 yo right hand dominant male with a history anxiety, depression diabetes, asthma, IVDU? on methadone?presented to the ER on 12/06/22 presents to the emergency with bilateral arm pain, swelling and redness for days to weeks in areas of attempted injection. He was admitted to the medicine service and have been on IV abx for the past 9 days. He reports that his symptoms have been sli ghtly improving. Complains of pain in the right forearm. Review of Systems Review of Systems: Yes all other systems are reviewed and are negative PMFSH Past Medical History Medical History Anxiety Asthma Cocaine use with cocaine-induced disorder Depression Diabetes Diabetes IVDU (intravenous drug user) Major depressive disorder, recurrent severe without psychotic features Opiate dependence, continuous Family History Family History Father Heart disease Family history: reviewed and not pertinent Social History Social History Household Members: Family Household Members Other:: Mother and brother Housing: House Do you presently have visiting nurse or other home services: No Alcohol intake: never Patient Tobacco Use Status: Current everyday Tobacco user Tobacco use type: Cigarette Cigarette Packs Per Day: 1 Cigarettes Per Day: 20.0 Years Smoked: 15 e-Cigarette/Vaping Use: Currently Using Second Hand Smoke Exposure: Yes Substance Use Type: Crack/Cocaine and Opiates Advance Directives Date on File: 01/30/21 service: No Current occupational status: unemployed Sexual orientation: Straight/Heterosexual Meds Allergies Allergy/AdvReac Type Severity Reaction Status Date / Time Pertussis Vaccines Allergy Mild HIVES Verified 12/05/22 22:58 [PERTUSSIS VACCINES] Active Medications: Current Medications Acetaminophen (Acetaminophen 325 Mg Tablet) 650 mg PO Q6H PRN PRN Reason: Pain, Mild (Pain Scale 1-3) Albuterol Sulfate (Albuterol Sulfate 90 Mcg 8 Gm Inhaler) 2 puff INHALE QID PRN PRN Reason: wheezing Clonazepam (Clonazepam 1 Mg Tablet) 1 mg PO TID PRN PRN Reason: Anxiety Last Admin: 12/14/22 21:44 Dose: 1 mg Enoxaparin Sodium (Enoxaparin Sodium 40 Mg/0.4 Ml Syringe) 40 mg SUBCUT Q24H [facility] Last Admin: 12/14/22 08:09 Dose: 40 mg Fluoxetine HCl (Fluoxetine Hcl 20 Mg Capsule) 40 mg PO DAILY [facility] Last Admin: 12/15/22 07:18 Dose: 40 mg Gabapentin (Gabapentin 300 Mg Capsule) 300 mg PO BEDTIME [facility] Last Admin: 12/14/22 21:43 Dose: 300 mg Gabapentin (Gabapentin 600 Mg Tablet) 600 mg PO TID [facility] Last Admin: 12/15/22 07:18 Dose: 600 mg Glucose (Glucose Gel 15 Gm Gel..Gram.) 15 gm PO Q15M PRN; Protocol PRN Reason: per Hypoglycemia Standing Ord. Dextrose (D10) 250 mls @ 750 mls/hr IV Q15M PRN; Protocol PRN Reason: per Hypoglycemia Standing Ord. Vancomycin HCl 1,250 mg/ (Sodium Chloride) 250 mls @ 166.667 mls/hr IV Q8H [facility] Last Infusion: 12/15/22 03:28 Dose: Infused Insulin Human Lispro (Insulin Lispro 100 Unit/Ml 3 Ml Vial) 0 unit SUBCUT QIDACHS [facility]; Protocol Last Admin: 12/15/22 07:23 Dose: Not Given Magnesium Hydroxide (Milk Of Magnesia 30 Ml Oral.Susp) 30 ml PO DAILY PRN PRN Reason: Constipation Melatonin (Melatonin 3 Mg Tablet) 6 mg PO BEDTIME PRN PRN Reason: Insomnia Methadone HCl (Methadone Hcl 20 Mg/2 Ml Oral.Conc) 135 mg PO DAILY [facility] Last Admin: 12/15/22 07:18 Dose: 135 mg Mirtazapine (Mirtazapine 7.5 Mg Tablet) 7.5 mg PO BEDTIME [facility] Last Admin: 12/14/22 21:43 Dose: 7.5 mg Nicotine (Nicotine 21 Mg Patch.Td24) 21 mg TRANSDERMA DAILY [facility] Last Admin: 12/15/22 07:18 Dose: 21 mg Nicotine Polacrilex (Nicotine Polacrilex 2 Mg Gum) 2 mg BUCCAL Q2H PRN PRN Reason: Nicotine Cravings Ondansetron HCl (Ondansetron Hcl 4 Mg/2 Ml Vial) 4 mg IVPUSH Q8H PRN PRN Reason: Nausea and Vomiting Oxycodone HCl (Oxycodone Hcl Immed Release 5 Mg Tablet) 5 mg PO Q6H PRN PRN Reason: Pain, Severe (Pain Scale 7-10) Last Admin: 12/15/22 03:32 Dose: 5 mg Pharmacy Consult (Consult Rx Vancomycin Dosing) 1 each MISCELLANE DAILY PRN PRN Reason: Consult order Quetiapine Fumarate (Quetiapine Fumarate 200 Mg Tablet) 200 mg PO BEDTIME [facility] Last Admin: 12/14/22 21:43 Dose: 200 mg Sodium Chloride (0.9 % Sodium Chloride Flush 3 Ml Syringe) 3 ml IVFLUSH QSHIFT [facility] Last Admin: 12/14/22 23:12 Dose: 3 ml Home Medications Medication Instructions Recorded Confirmed Last Taken Type clonazepam 1 mg tablet 1 tab PO TID 01/30/21 12/06/22 12/05/22 History fluoxetine 40 mg capsule 1 cap PO DAILY 01/30/21 12/06/22 12/05/22 History gabapentin 300 mg capsule 1 cap PO BEDTIME 01/30/21 12/06/22 2 Days Ago History ~02/20/22 gabapentin 600 mg tablet 1 tab PO TID 01/30/21 12/06/22 2 Days Ago History ~02/20/22 methadone 10 mg/mL oral 135 mg PO DAILY 01/30/21 12/06/22 12/05/22 History concentrate (Methadone Intensol) albuterol sulfate 90 mcg/actuation 2 puff inhalation QID PRN wheezing 02/22/22 12/06/22 Unknown History aerosol inhaler (ProAir HFA) quetiapine 200 mg tablet 200 mg PO BEDTIME 12/06/22 12/06/22 Unknown History Physical Exam Vital Signs: Vital Signs: Last Vital Signs Temp 97.5 F 12/15/22 06:59 Pulse 57 12/15/22 06:59 Resp 16 12/15/22 06:59 BP 101/59 L 12/15/22 06:59 Pulse Ox 97 12/15/22 06:59 O2 Del Method Room Air 12/15/22 06:59 BMI result Body Mass Index 26.2 Const: General: cooperative, healthy appearing and no acute distress Resp: Effort & Inspection: normal respiratory effort and able to speak in complete sentences Cardio: Rate: regular rate Peripheral pulses: Peripheral pulses 2+ throughout GI: Palpation (GI): Soft to palpation Skin: Lesions: no lesions Rashes: no rashes Extrem: Other: Right forearm multiple areas of eschar tissue from IV drug injection sites. No specific area of abscess palpable. No active drainage. Able to perform full hand, wrist, and elbow ROM. NVI. Results Labs 12/13/22 09:01 12/15/22 08:13 Labs: Abnormal lab results 12/14/22 Range/Units 16:28 POC Glucose 121 H (60-115) mg/dL H & H 12/06/22 12/13/22 Range/Units 00:12 09:01 Hgb 9.1 L D 9.8 L (14.0-18.0) g/dl Hct 30.6 L 33.6 L (42.0-52.0) % All other labs normal. Assessment and Plan (1) MRSA bacteremia: Status: Acute Continue IV abx Pain management as appropriate Continue ROM elbow, hand and wrist Discussed the case with Dr. Nash and will evaluate the patient (2) Cellulitis of arm: Status: Acute (3) Cellulitis: Status: Acute (4) Opiate dependence, continuous: Status: Acute (5) Major depressive disorder, recurrent severe without psychotic features: Status: Acute (6) Opioid use disorder: Status: Acute (7) Suicidal ideation: Status: Acute (8) Depression: Status: Acute (9) Diabetes: Status: Acute (10) Drug overdose: Status: Acute Time Spent With Patient Time: Total time managing care of this patient today ____ minutes. Procedures Date of Service Date of Service: 12/15/22
[2022-12-15 09:19] LABS: Vancomycin Random 20.1 mcg/mL (15-20)
[2022-12-15] MEDS: clonazePAM 1 MG TABLET PO ×3 (09:32→22:05)
[2022-12-15] MEDS: 0.9 % Sodium Chloride Flush 3 ML SYRINGE IVFLUSH ×2 (09:33→17:10)
--- NOTE | 2022-12-15 09:36 | HE.PHANOTE ---
Vancomycin Dosing Addendum Patients level came back this morning at 20.1. Patients level is slightly high, will decrease dose from 1250 mg Q8H to 1000 mg Q8H. Next draw tomorrow 12/16 @0800. Predicted AUC 460 mg/L/hr. Renal function is stable
[2022-12-15] MEDS: vancomycin HCL 1,000 MG in 0.9 % Sodium Chloride 250 ML 270 MG IV ×2 (09:44→17:08)
[2022-12-15] MEDS: Enoxaparin Sodium 40 MG/0.4 ML SYRINGE SUBCUT (09:45)
[2022-12-15 10:13] LABS: HIV AB/AG Nonreactive (Nonreactive); HIV Num 1 0.07 S/CO (0.00-0.99); ~HepC Num1 0.19 S/CO (0.00-0.79); ~Hepatitis C Antibody Nonreactive (Nonreactive)
[2022-12-15 11:09] LABS: Glucose, Whole Blood 168 mg/dL (60-115)
[2022-12-15] MEDS: Insulin Lispro 100 UNIT/ML 3 ML VIAL SUBCUT ×2 (11:53→20:35)
--- NOTE | 2022-12-15 12:17 | MHC.CM.PN ---
per rounds pt not ready for [facility] still following
--- NOTE | 2022-12-15 13:26 | HO.PM.IMPN ---
Subjective Subjective Date of Service: 12/15/22 Interval History: Follow-up on cellulitis right arm in pt with iv drug use Review of Systems arm remains remains swelling,moving all extermities no fevers or chills Physical Exam Vital Signs: Vital Signs: Last Vital Signs Temp 97.5 F 12/15/22 06:59 Pulse 57 12/15/22 06:59 Resp 16 12/15/22 06:59 BP 101/59 L 12/15/22 06:59 Pulse Ox 97 12/15/22 06:59 O2 Del Method Room Air 12/15/22 06:59 BMI result Body Mass Index 26.2 General: AO X 3, no acute distress Resp:? CTA bilateral CVS: S1,S2,RRR GI: +BS, NT, no distention Skin:? Previously pictured area with unless erythema, but has a hard induration on right arm seems somewhat improving Neuro:? motor grossly intact Psych: appropriate affect Objective Data Active Medications Acetaminophen (Acetaminophen 325 Mg Tablet) 650 mg PO Q6H PRN PRN Reason: Pain, Mild (Pain Scale 1-3) Albuterol Sulfate (Albuterol Sulfate 90 Mcg 8 Gm Inhaler) 2 puff INHALE QID PRN PRN Reason: wheezing Clonazepam (Clonazepam 1 Mg Tablet) 1 mg PO TID PRN PRN Reason: Anxiety Last Admin: 12/15/22 09:32 Dose: 1 mg Documented By: MICHAEL Enoxaparin Sodium (Enoxaparin Sodium 40 Mg/0.4 Ml Syringe) 40 mg SUBCUT Q24H [facility] Last Admin: 12/15/22 09:45 Dose: 40 mg Documented By: MICHAEL Fluoxetine HCl (Fluoxetine Hcl 20 Mg Capsule) 40 mg PO DAILY [facility] Last Admin: 12/15/22 07:18 Dose: 40 mg Documented By: MICHAEL Gabapentin (Gabapentin 300 Mg Capsule) 300 mg PO BEDTIME [facility] Last Admin: 12/14/22 21:43 Dose: 300 mg Documented By: CARI Gabapentin (Gabapentin 600 Mg Tablet) 600 mg PO TID [facility] Last Admin: 12/15/22 07:18 Dose: 600 mg Documented By: MICHAEL Glucose (Glucose Gel 15 Gm Gel..Gram.) 15 gm PO Q15M PRN; Protocol PRN Reason: per Hypoglycemia Standing Ord. Dextrose (D10) 250 mls @ 750 mls/hr IV Q15M PRN; Protocol PRN Reason: per Hypoglycemia Standing Ord. Vancomycin HCl 1,000 mg/ (Sodium Chloride) 270 mls @ 270 mls/hr IV Q8H [facility] Last Infusion: 12/15/22 10:56 Dose: 0 mls/hr Documented By: MICHAEL Insulin Human Lispro (Insulin Lispro 100 Unit/Ml 3 Ml Vial) 0 unit SUBCUT QIDACHS [facility]; Protocol Last Admin: 12/15/22 11:53 Dose: 2 unit Documented By: MICHAEL Magnesium Hydroxide (Milk Of Magnesia 30 Ml Oral.Susp) 30 ml PO DAILY PRN PRN Reason: Constipation Melatonin (Melatonin 3 Mg Tablet) 6 mg PO BEDTIME PRN PRN Reason: Insomnia Methadone HCl (Methadone Hcl 20 Mg/2 Ml Oral.Conc) 135 mg PO DAILY [facility] Last Admin: 12/15/22 07:18 Dose: 135 mg Documented By: MICHAEL Mirtazapine (Mirtazapine 7.5 Mg Tablet) 7.5 mg PO BEDTIME [facility] Last Admin: 12/14/22 21:43 Dose: 7.5 mg Documented By: CARI Nicotine (Nicotine 21 Mg Patch.Td24) 21 mg TRANSDERMA DAILY [facility] Last Admin: 12/15/22 07:18 Dose: 21 mg Documented By: MICHAEL Nicotine Polacrilex (Nicotine Polacrilex 2 Mg Gum) 2 mg BUCCAL Q2H PRN PRN Reason: Nicotine Cravings Ondansetron HCl (Ondansetron Hcl 4 Mg/2 Ml Vial) 4 mg IVPUSH Q8H PRN PRN Reason: Nausea and Vomiting Oxycodone HCl (Oxycodone Hcl Immed Release 5 Mg Tablet) 5 mg PO Q6H PRN PRN Reason: Pain, Severe (Pain Scale 7-10) Last Admin: 12/15/22 09:32 Dose: 5 mg Documented By: MICHAEL Pharmacy Consult (Consult Rx Vancomycin Dosing) 1 each MISCELLANE DAILY PRN PRN Reason: Consult order Quetiapine Fumarate (Quetiapine Fumarate 200 Mg Tablet) 200 mg PO BEDTIME [facility] Last Admin: 12/14/22 21:43 Dose: 200 mg Documented By: CARI Sodium Chloride (0.9 % Sodium Chloride Flush 3 Ml Syringe) 3 ml IVFLUSH QSHIFT [facility] Last Admin: 12/15/22 09:33 Dose: 3 ml Documented By: MICHAEL Labs 12/13/22 09:01 12/15/22 08:13 Labs: Laboratory Results - last 24 hr 12/14/22 12/14/22 12/15/22 16:28 20:20 07:03 Estim Creat Clear Calc Estimated GFR POC Glucose 121 H 110 88 Random Vancomycin Hepatitis C Ab (EIA) HIV 1&2 Ab/P24 Ag 4thGn 12/15/22 12/15/22 12/15/22 08:13 08:13 09:06 Estim Creat Clear Calc 139.5 Estimated GFR > 60 POC Glucose Random Vancomycin 20.1 H Hepatitis C Ab (EIA) Nonreactive HIV 1&2 Ab/P24 Ag 4thGn Nonreactive 12/15/22 11:02 Estim Creat Clear Calc Estimated GFR POC Glucose 168 H Random Vancomycin Hepatitis C Ab (EIA) HIV 1&2 Ab/P24 Ag 4thGn Assessment and Plan (1) MRSA bacteremia: Status: Acute (2) Cellulitis of arm: Status: Acute Plan 32-year-old male with a history anxiety, depression diabetes, asthma, IVDU? on methadone presents to the emergency with bilatareal left arm pain, swelling and redness consistent with cellulitis Cellulitis of both arams R >> L from IV drug injection and diabetes Sepsis, MRSA bacteremia--POA arm looks similar to yesterday-ct right arm:?Prominent circumferential subcutaneous edema with associated skin thickening, likely indicating cellulitis. -No endocarditis on echo -was on Zosyn 12/06 to 12/11 (6 days) -Continue Vanco 12/06/22 to present -ID recommend [facility] treatment -repeat blood cultures 12/11, PICC line today 12/13 ct right arm: worsening cellulitis ,ortho eval pending. IVDU - continue home dose of methadone -? p.r.n. Atarax for withdrawal symptoms -holding clonidine due to low BP -?Addiction Medicine following HypOtension on admission, -resolved, and in general runs low. Anemia-, no source of blood loss, monitor ?Diabetes ?non compliant with diabetic diet or metformin - resume metformin - SSI, POC ?Tobacco dependence ?smoking cessation has been advised -NRT anxiety/depression, no SI -continue home clonazepam, fluoxetine, seroquel, mirtazapine -will check EKG to assess Qtc dvt ppx - lovenox code status - full code Need for inpt: IV Abx for cellulitis and MRSA bacteremia in pt with IV drug use and diabetes, await cultures Time Spent With Patient Time: Total time managing care of this patient today ____ minutes. Quality Stroke Does the patient have a stroke diagnosis?: No VTE Prior VTE?: No VTE Risk Level:: Medical - moderate - high VTE Device Contraindication: Treatment Not Indicated VTE Drug Contraindication: N/A - Med Ordered
[2022-12-15 15:28] VITALS: BP 132/79; PULSE 100; RESP 18; TEMP 36.4; O2SAT 97
[2022-12-15 16:04] LABS: Glucose, Whole Blood 102 mg/dL (60-115)
[2022-12-15 19:25] VITALS: BP 150/80; PULSE 102; RESP 19; TEMP 36.4; O2SAT 94
[2022-12-15 20:14] LABS: Glucose, Whole Blood 151 mg/dL (60-115)
[2022-12-15] MEDS: Mirtazapine 7.5 MG TABLET PO (22:03)
[2022-12-15] MEDS: QUEtiapine Fumarate 200 MG TABLET PO (22:04)
[2022-12-15] MEDS: Gabapentin 300 MG CAPSULE PO (22:04)
[2022-12-16] MEDS: vancomycin HCL 1,000 MG in 0.9 % Sodium Chloride 250 ML 270 MG IV ×3 (01:49→17:35)
[2022-12-16 04:00] VITALS: BP 118/63; PULSE 80; RESP 16; TEMP 36; O2SAT 98
[2022-12-16] MEDS: Enoxaparin Sodium 40 MG/0.4 ML SYRINGE SUBCUT (08:09)
[2022-12-16] MEDS: Gabapentin 600 MG TABLET PO ×3 (08:10→21:57)
[2022-12-16] MEDS: FLUoxetine HCl 20 MG CAPSULE 40 MG PO (08:10)
[2022-12-16] MEDS: methADONE HCl 20 MG/2 ML ORAL.CONC 135 MG PO (08:10)
[2022-12-16] MEDS: 0.9 % Sodium Chloride Flush 3 ML SYRINGE IVFLUSH ×3 (08:14→17:38)
[2022-12-16 08:36] LABS: Creatinine Clr Calc Pharmacy 145.2; Estimated Glomerular Filt Rate > 60; Vancomycin Random 12.8 mcg/mL (15-20)
[2022-12-16 08:36] LABS: Glucose, Whole Blood 107 mg/dL (60-115)
--- NOTE | 2022-12-16 08:46 | HE.PHANOTE ---
Vancomycin Dosing Addendum Patients level came back at 12.8 this morning. Renal function stable, AUC within goal. Will continue with this dose of 1000 mg Q8H. Next draw is tomorrow 12/17 @1600. AUC 447 mg/L/hr.
[2022-12-16] MEDS: Nicotine 21 MG PATCH.TD24 TRANSDERMA (09:19)
[2022-12-16] MEDS: clonazePAM 1 MG TABLET PO ×2 (09:45→16:47)
[2022-12-16] MEDS: oxyCODONE HCl Immed Release 5 MG TABLET PO ×2 (09:45→21:57)
[2022-12-16 11:08] LABS: Glucose, Whole Blood 136 mg/dL (60-115)
--- NOTE | 2022-12-16 15:41 | HO.PM.IMPN ---
Subjective Subjective Date of Service: 12/16/22 Interval History: Follow-up on cellulitis right arm in pt with iv drug use Review of Systems arm swelling/erythema improved no fevers or chills no SI as per patient mentioned yesterday or today Physical Exam Vital Signs: Vital Signs: Last Vital Signs Temp 96.8 F 12/16/22 04:00 Pulse 80 12/16/22 04:00 Resp 16 12/16/22 04:00 BP 118/63 12/16/22 04:00 Pulse Ox 98 12/16/22 04:00 O2 Del Method Room Air 12/16/22 04:00 BMI result Body Mass Index 26.2 General: AO X 3, no acute distress Resp:? CTA bilateral CVS: S1,S2,RRR GI: +BS, NT, no distention Skin:? Previously pictured area with unless erythema, but has a hard induration on right arm seems somewhat improving Neuro:? motor grossly intact Psych: appropriate affect Objective Data Active Medications Acetaminophen (Acetaminophen 325 Mg Tablet) 650 mg PO Q6H PRN PRN Reason: Pain, Mild (Pain Scale 1-3) Albuterol Sulfate (Albuterol Sulfate 90 Mcg 8 Gm Inhaler) 2 puff INHALE QID PRN PRN Reason: wheezing Enoxaparin Sodium (Enoxaparin Sodium 40 Mg/0.4 Ml Syringe) 40 mg SUBCUT Q24H [facility] Last Admin: 12/16/22 08:09 Dose: 40 mg Documented By: MICHAEL Fluoxetine HCl (Fluoxetine Hcl 20 Mg Capsule) 40 mg PO DAILY [facility] Last Admin: 12/16/22 08:10 Dose: 40 mg Documented By: MICHAEL Gabapentin (Gabapentin 300 Mg Capsule) 300 mg PO BEDTIME [facility] Last Admin: 12/15/22 22:04 Dose: 300 mg Documented By: PHILIP Gabapentin (Gabapentin 600 Mg Tablet) 600 mg PO TID [facility] Last Admin: 12/16/22 15:25 Dose: 600 mg Documented By: MICHAEL Glucose (Glucose Gel 15 Gm Gel..Gram.) 15 gm PO Q15M PRN; Protocol PRN Reason: per Hypoglycemia Standing Ord. Dextrose (D10) 250 mls @ 750 mls/hr IV Q15M PRN; Protocol PRN Reason: per Hypoglycemia Standing Ord. Vancomycin HCl 1,000 mg/ (Sodium Chloride) 270 mls @ 270 mls/hr IV Q8H [facility] Last Infusion: 12/16/22 12:32 Dose: 0 mls/hr Documented By: MICHAEL Insulin Human Lispro (Insulin Lispro 100 Unit/Ml 3 Ml Vial) 0 unit SUBCUT QIDACHS [facility]; Protocol Last Admin: 12/16/22 11:22 Dose: Not Given Documented By: MICHAEL Non-Admin Reason: No Insulin Coverage Magnesium Hydroxide (Milk Of Magnesia 30 Ml Oral.Susp) 30 ml PO DAILY PRN PRN Reason: Constipation Melatonin (Melatonin 3 Mg Tablet) 6 mg PO BEDTIME PRN PRN Reason: Insomnia Methadone HCl (Methadone Hcl 20 Mg/2 Ml Oral.Conc) 135 mg PO DAILY [facility] Last Admin: 12/16/22 08:10 Dose: 135 mg Documented By: MICHAEL Mirtazapine (Mirtazapine 7.5 Mg Tablet) 7.5 mg PO BEDTIME [facility] Last Admin: 12/15/22 22:03 Dose: 7.5 mg Documented By: PHIILP Nicotine (Nicotine 21 Mg Patch.Td24) 21 mg TRANSDERMA DAILY [facility] Last Admin: 12/16/22 09:19 Dose: 21 mg Documented By: MICHAEL Nicotine Polacrilex (Nicotine Polacrilex 2 Mg Gum) 2 mg BUCCAL Q2H PRN PRN Reason: Nicotine Cravings Ondansetron HCl (Ondansetron Hcl 4 Mg/2 Ml Vial) 4 mg IVPUSH Q8H PRN PRN Reason: Nausea and Vomiting Quetiapine Fumarate (Quetiapine Fumarate 200 Mg Tablet) 200 mg PO BEDTIME [facility] Last Admin: 12/15/22 22:04 Dose: 200 mg Documented By: PHILIP Sodium Chloride (0.9 % Sodium Chloride Flush 3 Ml Syringe) 3 ml IVFLUSH QSHIFT [facility] Last Admin: 12/16/22 08:14 Dose: 3 ml Documented By: MICHAEL Labs 12/13/22 09:01 12/16/22 07:49 Labs: Laboratory Results - last 24 hr 12/15/22 12/15/22 12/16/22 16:01 20:10 07:49 Estim Creat Clear Calc Estimated GFR POC Glucose 102 151 H Random Vancomycin 12.8 L 12/16/22 12/16/22 12/16/22 07:49 08:16 11:04 Estim Creat Clear Calc 145.2 Estimated GFR > 60 POC Glucose 107 136 H Random Vancomycin Microbiology Microbiology Results: Microbiology 12/11/22 08:35 Blood Culture - Final Blood - Venous No growth after 5 days. Assessment and Plan (1) MRSA bacteremia: Status: Acute (2) Cellulitis of arm: Status: Acute Plan 32-year-old male with a history anxiety, depression diabetes, asthma, IVDU? on methadone presents to the emergency with bilatareal left arm pain, swelling and redness consistent with cellulitis Cellulitis of both arams R >> L from IV drug injection and diabetes Sepsis, MRSA bacteremia--POA arm looks similar to yesterday-ct right arm:?Prominent circumferential subcutaneous edema with associated skin thickening, likely indicating cellulitis. -No endocarditis on echo -was on Zosyn 12/06 to 12/11 (6 days) -Continue Vanco 12/06/22 to present -ID recommend senior living treatment -repeat blood cultures 12/11, PICC line today 12/13 ct right arm: worsening cellulitis ,ortho eval pending. IVDU - continue home dose of methadone -? p.r.n. Atarax for withdrawal symptoms -holding clonidine due to low BP -?Addiction Medicine following HypOtension on admission, -resolved, and in general runs low. Anemia-, no source of blood loss, monitor ?Diabetes ?non compliant with diabetic diet or metformin - resume metformin - SSI, POC ?Tobacco dependence ?smoking cessation has been advised -NRT anxiety/depression, no SI -continue home clonazepam, fluoxetine, seroquel, mirtazapine ekg qtc is 408 on admission Patient denies any suicidal ideation this time, he said he never said and suicidal ideation to anybody yesterday.so no need psych or bhn. dvt ppx - lovenox code status - full code Need for inpt: IV Abx for cellulitis and MRSA bacteremia in pt with IV drug use and diabetes, await cultures Time Spent With Patient Time: Total time managing care of this patient today ____ minutes. Quality Stroke Does the patient have a stroke diagnosis?: No VTE Prior VTE?: No VTE Risk Level:: Medical - moderate - high VTE Device Contraindication: Treatment Not Indicated VTE Drug Contraindication: N/A - Med Ordered
[2022-12-16 15:58] LABS: Glucose, Whole Blood 133 mg/dL (60-115)
[2022-12-16 16:00] VITALS: BP 130/72; PULSE 84; RESP 20; TEMP 37.2; O2SAT 98
--- NOTE | 2022-12-16 17:19 | P.CONOP_ITS ---
History of Present Illness HPI Consult date: 12/15/22 Chief complaint: Cellulitis of both arms Narrative: the patient is a 32-year-old man with active IV drug use involving both of his forearms. He was admitted with cellulitis in both forearms and multiple open are crusted over wounds. We were asked to see him and evaluate him for any operative indications. The patient has been on IV antibiotics for several days and feels like the redness and swelling is improving. He has had radiographs and a CT scan. [facility] Past Medical History Medical History Anxiety Asthma Cocaine use with cocaine-induced disorder Depression Diabetes Diabetes IVDU (intravenous drug user) Major depressive disorder, recurrent severe without psychotic features Opiate dependence, continuous Family History Family History Father Heart disease Family history: reviewed and not pertinent Social History Social History Household Members: Family Household Members Other:: Mother and brother Housing: House Do you presently have visiting nurse or other home services: No Alcohol intake: never Patient Tobacco Use Status: Current everyday Tobacco user Tobacco use type: Cigarette Cigarette Packs Per Day: 1 Cigarettes Per Day: 20.0 Years Smoked: 15 e-Cigarette/Vaping Use: Currently Using Second Hand Smoke Exposure: Yes Substance Use Type: Crack/Cocaine and Opiates Advance Directives Date on File: 01/30/21 service: No Current occupational status: unemployed Sexual orientation: Straight/Heterosexual Meds Allergies Allergy/AdvReac Type Severity Reaction Status Date / Time Pertussis Vaccines Allergy Mild HIVES Verified 12/05/22 22:58 [PERTUSSIS VACCINES] Active Medications: Current Medications Acetaminophen (Acetaminophen 325 Mg Tablet) 650 mg PO Q6H PRN PRN Reason: Pain, Mild (Pain Scale 1-3) Albuterol Sulfate (Albuterol Sulfate 90 Mcg 8 Gm Inhaler) 2 puff INHALE QID PRN PRN Reason: wheezing Clonazepam (Clonazepam 1 Mg Tablet) 1 mg PO TID PRN PRN Reason: Anxiety Last Admin: 12/16/22 16:47 Dose: 1 mg Enoxaparin Sodium (Enoxaparin Sodium 40 Mg/0.4 Ml Syringe) 40 mg SUBCUT Q24H [facility] Last Admin: 12/16/22 08:09 Dose: 40 mg Fluoxetine HCl (Fluoxetine Hcl 20 Mg Capsule) 40 mg PO DAILY [facility] Last Admin: 12/16/22 08:10 Dose: 40 mg Gabapentin (Gabapentin 300 Mg Capsule) 300 mg PO BEDTIME [facility] Last Admin: 12/15/22 22:04 Dose: 300 mg Gabapentin (Gabapentin 600 Mg Tablet) 600 mg PO TID [facility] Last Admin: 12/16/22 15:25 Dose: 600 mg Glucose (Glucose Gel 15 Gm Gel..Gram.) 15 gm PO Q15M PRN; Protocol PRN Reason: per Hypoglycemia Standing Ord. Dextrose (D10) 250 mls @ 750 mls/hr IV Q15M PRN; Protocol PRN Reason: per Hypoglycemia Standing Ord. Vancomycin HCl 1,000 mg/ (Sodium Chloride) 270 mls @ 270 mls/hr IV Q8H [facility] Last Infusion: 12/16/22 12:32 Dose: Infused Insulin Human Lispro (Insulin Lispro 100 Unit/Ml 3 Ml Vial) 0 unit SUBCUT QIDACHS [facility]; Protocol Last Admin: 12/16/22 16:32 Dose: Not Given Magnesium Hydroxide (Milk Of Magnesia 30 Ml Oral.Susp) 30 ml PO DAILY PRN PRN Reason: Constipation Melatonin (Melatonin 3 Mg Tablet) 6 mg PO BEDTIME PRN PRN Reason: Insomnia Methadone HCl (Methadone Hcl 20 Mg/2 Ml Oral.Conc) 135 mg PO DAILY [facility] Last Admin: 12/16/22 08:10 Dose: 135 mg Mirtazapine (Mirtazapine 7.5 Mg Tablet) 7.5 mg PO BEDTIME [facility] Last Admin: 12/15/22 22:03 Dose: 7.5 mg Nicotine (Nicotine 21 Mg Patch.Td24) 21 mg TRANSDERMA DAILY [facility] Last Admin: 12/16/22 09:19 Dose: 21 mg Nicotine Polacrilex (Nicotine Polacrilex 2 Mg Gum) 2 mg BUCCAL Q2H PRN PRN Reason: Nicotine Cravings Ondansetron HCl (Ondansetron Hcl 4 Mg/2 Ml Vial) 4 mg IVPUSH Q8H PRN PRN Reason: Nausea and Vomiting Oxycodone HCl (Oxycodone Hcl Immed Release 5 Mg Tablet) 5 mg PO Q6H PRN PRN Reason: Pain, Mild (Pain Scale 1-3) Quetiapine Fumarate (Quetiapine Fumarate 200 Mg Tablet) 200 mg PO BEDTIME [facility] Last Admin: 12/15/22 22:04 Dose: 200 mg Sodium Chloride (0.9 % Sodium Chloride Flush 3 Ml Syringe) 3 ml IVFLUSH QSHIFT [facility] Last Admin: 12/16/22 08:14 Dose: 3 ml Home Medications Medication Instructions Recorded Confirmed Last Taken Type clonazepam 1 mg tablet 1 tab PO TID 01/30/21 12/06/22 12/05/22 History fluoxetine 40 mg capsule 1 cap PO DAILY 01/30/21 12/06/22 12/05/22 History gabapentin 300 mg capsule 1 cap PO BEDTIME 01/30/21 12/06/22 2 Days Ago History ~02/20/22 gabapentin 600 mg tablet 1 tab PO TID 01/30/21 12/06/22 2 Days Ago History ~02/20/22 methadone 10 mg/mL oral 135 mg PO DAILY 01/30/21 12/06/22 12/05/22 History concentrate (Methadone Intensol) albuterol sulfate 90 mcg/actuation 2 puff inhalation QID PRN wheezing 02/22/22 12/06/22 Unknown History aerosol inhaler (ProAir HFA) quetiapine 200 mg tablet 200 mg PO BEDTIME 12/06/22 12/06/22 Unknown History Physical Exam Vital Signs: Vital Signs: Last Vital Signs Temp 98.9 F 12/16/22 16:00 Pulse 84 12/16/22 16:00 Resp 20 12/16/22 16:00 BP 130/72 12/16/22 16:00 Pulse Ox 98 12/16/22 16:00 O2 Del Method Room Air 12/16/22 16:00 BMI result Body Mass Index 26.2 Const: General: cooperative and no acute distress Orientation /consciousness: oriented to person and oriented to place HEENT: Head: Yes normocephalic and Yes atraumatic Eyes: EOM: EOMs intact bilaterally Resp: Effort & Inspection: normal respiratory effort and able to speak in complete sentences Cardio: Jugular venous distension: no JVD Neuro: General: oriented to person and oriented to place Extrem: Other: Evaluation of Bilateral Upper Extremity: he was able to bring his fingers closed to a fist and out into full extension without difficulty Or pain. Sensation intact to all digits and cap refill brisk. Smooth and painless wrist range of motion bilaterally. Smooth and painless elbow range of motion bilaterally including flexion extension and prono-supination. He had multiple wounds roughly 5-10 mm in diameter oriented longitudinally going up and down both forearms. He still had some areas of erythema and [place] edema, but notes that they are improving. No fluctuance or evidence of abscess at this time.. Radiographs: AP lateral of his right forearm were reviewed by me today. They show an old healed distal radius fracture and an old ulnar styloid base fracture. There are no osteolytic lesions. There were no foreign bodies. No evidence of acute fracture. CT scan of right hand and distal forearm: This showed no evidence of abscess. Findings consistent with cellulitis. Psych: Affect: normal affect Attitude: cooperative Results Labs 12/13/22 09:01 12/16/22 07:49 Labs: Abnormal lab results 12/15/22 12/16/22 12/16/22 Range/Units 20:10 07:49 11:04 POC Glucose 151 H 136 H (60-115) mg/dL Random Vancomycin 12.8 L (15-20) mcg/mL 12/16/22 Range/Units 15:54 POC Glucose 133 H (60-115) mg/dL Random Vancomycin (15-20) mcg/mL H & H 12/06/22 12/13/22 Range/Units 00:12 09:01 Hgb 9.1 L D 9.8 L (14.0-18.0) g/dl Hct 30.6 L 33.6 L (42.0-52.0) % All other labs normal. Assessment and Plan (1) Cellulitis of arm: Status: Acute Plan Assessment and plan: 1. Bilateral forearm cellulitis and multiple wounds as result of frequent IV drug use. His cellulitis appears to be improving on IV antibiotics. No operative indications at this time. I educated the patient about this condition. I encouraged him to seek treatment for his who IV drug use addiction. Time Spent With Patient Time: Total time managing care of this patient today _25___ minutes. Procedures Date of Service Date of Service: 12/16/22
[2022-12-16 19:46] VITALS: BP 147/61; PULSE 99; RESP 19; TEMP 36.4; O2SAT 98
[2022-12-16 20:09] LABS: Glucose, Whole Blood 185 mg/dL (60-115)
[2022-12-16] MEDS: QUEtiapine Fumarate 200 MG TABLET PO (21:57)
[2022-12-16] MEDS: Mirtazapine 7.5 MG TABLET PO (21:58)
[2022-12-16] MEDS: Insulin Lispro 100 UNIT/ML 3 ML VIAL SUBCUT (21:58)
[2022-12-16] MEDS: Gabapentin 300 MG CAPSULE PO (22:06)
[2022-12-17] MEDS: vancomycin HCL 1,000 MG in 0.9 % Sodium Chloride 250 ML 270 MG IV ×2 (02:04→09:39)
[2022-12-17] MEDS: clonazePAM 1 MG TABLET PO ×2 (02:06→17:11)
[2022-12-17 04:00] VITALS: BP 103/75; PULSE 76; RESP 18; TEMP 36.4; O2SAT 97
[2022-12-17 06:56] LABS: Creatinine Clr Calc Pharmacy 135.9; Estimated Glomerular Filt Rate > 60
[2022-12-17 07:35] VITALS: BP 109/72; PULSE 80; RESP 18; TEMP 36.9; O2SAT 97
[2022-12-17 07:37] LABS: Glucose, Whole Blood 92 mg/dL (60-115)
[2022-12-17] MEDS: Nicotine 21 MG PATCH.TD24 TRANSDERMA (09:31)
[2022-12-17] MEDS: Enoxaparin Sodium 40 MG/0.4 ML SYRINGE SUBCUT (09:32)
[2022-12-17] MEDS: FLUoxetine HCl 20 MG CAPSULE 40 MG PO (09:33)
[2022-12-17] MEDS: 0.9 % Sodium Chloride Flush 3 ML SYRINGE IVFLUSH ×3 (09:37→20:36)
[2022-12-17] MEDS: methADONE HCl 20 MG/2 ML ORAL.CONC 135 MG PO (09:38)
[2022-12-17] MEDS: Gabapentin 600 MG TABLET PO ×3 (09:39→20:37)
[2022-12-17 11:27] LABS: Glucose, Whole Blood 103 mg/dL (60-115)
--- NOTE | 2022-12-17 11:37 | MHC.CM.PN ---
Spoke with Flex from [facility] Opiate treatment program. She has faxed the releases. She gave instructions for the release document completion. The patient was agreeable. He signed the forms required, and they were faxed to the facility. Spoke again with Flex. Informed her that the releases have been resent. The plan is Guest dosing at [facility] Tuesday. [facility] has bben asked to go for insurance authorization. Patient will transport via [facility]
--- NOTE | 2022-12-17 14:39 | P.PNIM_ITS ---
Subjective Subjective Date of Service: 12/17/22 Interval History: Follow-up on cellulitis right arm in pt with iv drug use Review of Systems arm swelling/erythema seems improving no fevers or chills no SI as per patient mentioned yesterday or today Physical Exam Vital Signs: Vital Signs: Last Vital Signs Temp 98.4 F 12/17/22 07:35 Pulse 80 12/17/22 07:35 Resp 18 12/17/22 07:35 BP 109/72 12/17/22 07:35 Pulse Ox 97 12/17/22 07:35 O2 Del Method Room Air 12/17/22 07:35 BMI result Body Mass Index 26.2 General: AO X 3, little sleepy this morning but says did not sleep well last night. Resp:? CTA bilateral CVS: S1,S2,RRR GI: +BS, NT, no distention Skin:? Previously pictured area with unless erythema, but has a hard induration on right arm seems somewhat improving Neuro:? motor grossly intact Psych: appropriate affect Objective Data Active Medications Acetaminophen (Acetaminophen 325 Mg Tablet) 650 mg PO Q6H PRN PRN Reason: Pain, Mild (Pain Scale 1-3) Albuterol Sulfate (Albuterol Sulfate 90 Mcg 8 Gm Inhaler) 2 puff INHALE QID PRN PRN Reason: wheezing Clonazepam (Clonazepam 1 Mg Tablet) 1 mg PO TID PRN PRN Reason: Anxiety Last Admin: 12/17/22 02:06 Dose: 1 mg Documented By: KRISTYN Enoxaparin Sodium (Enoxaparin Sodium 40 Mg/0.4 Ml Syringe) 40 mg SUBCUT Q24H [facility] Last Admin: 12/17/22 09:32 Dose: 40 mg Documented By: THOM Fluoxetine HCl (Fluoxetine Hcl 20 Mg Capsule) 40 mg PO DAILY [facility] Last Admin: 12/17/22 09:33 Dose: 40 mg Documented By: THOM Gabapentin (Gabapentin 300 Mg Capsule) 300 mg PO BEDTIME [facility] Last Admin: 12/16/22 22:06 Dose: 300 mg Documented By: KRISTYN Gabapentin (Gabapentin 600 Mg Tablet) 600 mg PO TID [facility] Last Admin: 12/17/22 09:39 Dose: 600 mg Documented By: THOM Glucose (Glucose Gel 15 Gm Gel..Gram.) 15 gm PO Q15M PRN; Protocol PRN Reason: per Hypoglycemia Standing Ord. Dextrose (D10) 250 mls @ 750 mls/hr IV Q15M PRN; Protocol PRN Reason: per Hypoglycemia Standing Ord. Vancomycin HCl 1,000 mg/ (Sodium Chloride) 270 mls @ 270 mls/hr IV Q8H [facility] Last Infusion: 12/17/22 09:42 Dose: 0 mls/hr Documented By: THOM Insulin Human Lispro (Insulin Lispro 100 Unit/Ml 3 Ml Vial) 0 unit SUBCUT QIDACHS [facility]; Protocol Last Admin: 12/17/22 11:30 Dose: Not Given Documented By: THOM Non-Admin Reason: No Insulin Coverage Magnesium Hydroxide (Milk Of Magnesia 30 Ml Oral.Susp) 30 ml PO DAILY PRN PRN Reason: Constipation Melatonin (Melatonin 3 Mg Tablet) 6 mg PO BEDTIME PRN PRN Reason: Insomnia Methadone HCl (Methadone Hcl 20 Mg/2 Ml Oral.Conc) 135 mg PO DAILY [facility] Last Admin: 12/17/22 09:38 Dose: 135 mg Documented By: THOM Mirtazapine (Mirtazapine 7.5 Mg Tablet) 7.5 mg PO BEDTIME [facility] Last Admin: 12/16/22 21:58 Dose: 7.5 mg Documented By: KRISTYN Nicotine (Nicotine 21 Mg Patch.Td24) 21 mg TRANSDERMA DAILY [facility] Last Admin: 12/17/22 09:31 Dose: 21 mg Documented By: THOM Nicotine Polacrilex (Nicotine Polacrilex 2 Mg Gum) 2 mg BUCCAL Q2H PRN PRN Reason: Nicotine Cravings Ondansetron HCl (Ondansetron Hcl 4 Mg/2 Ml Vial) 4 mg IVPUSH Q8H PRN PRN Reason: Nausea and Vomiting Oxycodone HCl (Oxycodone Hcl Immed Release 5 Mg Tablet) 5 mg PO Q6H PRN PRN Reason: Pain, Mild (Pain Scale 1-3) Last Admin: 12/16/22 21:57 Dose: 5 mg Documented By: KRISTYN Quetiapine Fumarate (Quetiapine Fumarate 200 Mg Tablet) 200 mg PO BEDTIME [facility] Last Admin: 12/16/22 21:57 Dose: 200 mg Documented By: KRISTYN Sodium Chloride (0.9 % Sodium Chloride Flush 3 Ml Syringe) 3 ml IVFLUSH QSHIFT [facility] Last Admin: 12/17/22 09:37 Dose: 3 ml Documented By: THOM Labs 12/13/22 09:01 12/17/22 06:02 Labs: Laboratory Results - last 24 hr 12/16/22 12/16/22 12/17/22 15:54 20:02 06:02 Estim Creat Clear Calc 135.9 Estimated GFR > 60 POC Glucose 133 H 185 H 12/17/22 12/17/22 07:33 11:22 Estim Creat Clear Calc Estimated GFR POC Glucose 92 103 Microbiology Microbiology Results: Microbiology 12/11/22 08:35 Blood Culture - Final Blood - Venous No growth after 5 days. Assessment and Plan (1) MRSA bacteremia: Status: Acute (2) Cellulitis of arm: Status: Acute Plan 32-year-old male with a history anxiety, depression diabetes, asthma, IVDU? on methadone presents to the emergency with bilatareal? left arm pain, swelling and redness consistent with cellulitis Cellulitis of both arams R >> L from IV drug injection and diabetes Sepsis, MRSA bacteremia--POA arm looks similar to yesterday-ct right arm:?Prominent circumferential subcutaneous edema with associated skin thickening, likely indicating cellulitis. -No endocarditis on echo -was on? Zosyn 12/06 to 12/11 (6 days) -Continue Vanco 12/06/22 to present -ID recommend [facility] treatment -repeat blood cultures 12/11, PICC line today 12/13 ct right arm: worsening cellulitis ,ortho eval pending. IVDU - continue home dose of methadone -? p.r.n. Atarax for withdrawal symptoms -holding clonidine due to low BP -?Addiction Medicine following HypOtension on admission, -resolved, and in general runs low. Anemia-, no source of blood loss, monitor ?Diabetes ?non compliant with diabetic diet or metformin - resume metformin - SSI, POC ?Tobacco dependence ?smoking cessation has been advised -NRT anxiety/depression, no SI -continue home clonazepam, fluoxetine, seroquel, mirtazapine ekg qtc is 408 on admission Patient denies any suicidal ideation this time, he said he never said and suicidal ideation to anybody yesterday.so no need psych or bhn. dvt ppx - lovenox code status - full code Need for inpt: IV Abx for cellulitis and MRSA bacteremia in pt with IV drug use and diabetes, awaiting rehab placement. Time Spent With Patient Time: Total time managing care of this patient today ____ minutes. Quality Stroke Does the patient have a stroke diagnosis?: No VTE Prior VTE?: No VTE Risk Level:: Medical - moderate - high VTE Device Contraindication: Treatment Not Indicated VTE Drug Contraindication: N/A - Med Ordered
[2022-12-17 15:28] VITALS: BP 110/57; PULSE 54; RESP 16; TEMP 36.8; O2SAT 97
[2022-12-17 16:26] LABS: Glucose, Whole Blood 107 mg/dL (60-115)
[2022-12-17 16:51] LABS: Vancomycin Random 5.7 mcg/mL (15-20)
[2022-12-17] MEDS: vancomycin HCL 1,250 MG in 0.9 % Sodium Chloride 250 ML 166.67 MG IV (18:03)
[2022-12-17 19:52] VITALS: BP 132/64; PULSE 58; RESP 16; TEMP 36.3; O2SAT 96
[2022-12-17] MEDS: Mirtazapine 7.5 MG TABLET PO (20:36)
[2022-12-17] MEDS: QUEtiapine Fumarate 200 MG TABLET PO (20:37)
[2022-12-17] MEDS: oxyCODONE HCl Immed Release 5 MG TABLET PO (20:37)
[2022-12-17] MEDS: Gabapentin 300 MG CAPSULE PO (20:37)
[2022-12-18] MEDS: vancomycin HCL 1,250 MG in 0.9 % Sodium Chloride 250 ML 166.67 MG IV (02:00)
[2022-12-18 03:36] VITALS: BP 121/58; PULSE 62; RESP 16; TEMP 36.5; O2SAT 93
[2022-12-18 06:50] LABS: Creatinine Clr Calc Pharmacy 147.2; Estimated Glomerular Filt Rate > 60
[2022-12-18 07:46] VITALS: BP 101/61; PULSE 59; RESP 18; TEMP 36.2; O2SAT 98
[2022-12-18 07:52] LABS: Glucose, Whole Blood 109 mg/dL (60-115)
--- NOTE | 2022-12-18 08:50 | HE.PHANOTE ---
VANCOMYCIN ADDENDUM renal function stable, level ordered for today at 1600, no changes at this time
[2022-12-18] MEDS: vancomycin HCL 1,250 MG in 0.9 % Sodium Chloride 250 ML 166.66 MG IV (10:50)
[2022-12-18] MEDS: Nicotine 21 MG PATCH.TD24 TRANSDERMA (10:51)
[2022-12-18] MEDS: Enoxaparin Sodium 40 MG/0.4 ML SYRINGE SUBCUT (10:51)
[2022-12-18] MEDS: 0.9 % Sodium Chloride Flush 3 ML SYRINGE IVFLUSH ×3 (10:51→22:24)
[2022-12-18] MEDS: methADONE HCl 20 MG/2 ML ORAL.CONC 135 MG PO (10:51)
[2022-12-18] MEDS: FLUoxetine HCl 20 MG CAPSULE 40 MG PO (10:51)
[2022-12-18] MEDS: Gabapentin 600 MG TABLET PO ×3 (10:51→22:21)
[2022-12-18] MEDS: clonazePAM 1 MG TABLET PO ×2 (11:04→22:21)
[2022-12-18] MEDS: oxyCODONE HCl Immed Release 5 MG TABLET PO ×2 (11:04→17:40)
[2022-12-18 11:32] LABS: Glucose, Whole Blood 106 mg/dL (60-115)
--- NOTE | 2022-12-18 11:52 | P.PNIM_ITS ---
Subjective Subjective Date of Service: 12/18/22 Interval History: Follow-up on cellulitis right arm in pt with iv drug use Review of Systems arm swelling/erythema seems improving no fevers or chills no SI as per patient mentioned yesterday or today Physical Exam Vital Signs: Vital Signs: Last Vital Signs Temp 97.2 F 12/18/22 07:46 Pulse 59 12/18/22 07:46 Resp 18 12/18/22 07:46 BP 101/61 12/18/22 07:46 Pulse Ox 98 12/18/22 07:46 O2 Del Method Room Air 12/18/22 07:46 BMI result Body Mass Index 26.2 General: AO X 3, little sleepy this morning but says did not sleep well last night. Resp:? CTA bilateral CVS: S1,S2,RRR GI: +BS, NT, no distention Skin:? Previously pictured area with unless erythema, but has a hard induration on right arm seems somewhat improving Neuro:? motor grossly intact Psych: appropriate affect Objective Data Active Medications Acetaminophen (Acetaminophen 325 Mg Tablet) 650 mg PO Q6H PRN PRN Reason: Pain, Mild (Pain Scale 1-3) Albuterol Sulfate (Albuterol Sulfate 90 Mcg 8 Gm Inhaler) 2 puff INHALE QID PRN PRN Reason: wheezing Clonazepam (Clonazepam 1 Mg Tablet) 1 mg PO BID PRN PRN Reason: Anxiety Last Admin: 12/18/22 11:04 Dose: 1 mg Documented By: HUBERT Enoxaparin Sodium (Enoxaparin Sodium 40 Mg/0.4 Ml Syringe) 40 mg SUBCUT Q24H [facility] Last Admin: 12/18/22 10:51 Dose: 40 mg Documented By: HUBERT Fluoxetine HCl (Fluoxetine Hcl 20 Mg Capsule) 40 mg PO DAILY [facility] Last Admin: 12/18/22 10:51 Dose: 40 mg Documented By: HUBERT Gabapentin (Gabapentin 300 Mg Capsule) 300 mg PO BEDTIME [facility] Last Admin: 12/17/22 20:37 Dose: 300 mg Documented By: MATIAS Gabapentin (Gabapentin 600 Mg Tablet) 600 mg PO TID [facility] Last Admin: 12/18/22 10:51 Dose: 600 mg Documented By: HUBERT Glucose (Glucose Gel 15 Gm Gel..Gram.) 15 gm PO Q15M PRN; Protocol PRN Reason: per Hypoglycemia Standing Ord. Dextrose (D10) 250 mls @ 750 mls/hr IV Q15M PRN; Protocol PRN Reason: per Hypoglycemia Standing Ord. Vancomycin HCl 1,250 mg/ (Sodium Chloride) 250 mls @ 166.667 mls/hr IV Q8H [facility] Last Admin: 12/18/22 10:50 Dose: 166.66 mls/hr Documented By: HUBERT Insulin Human Lispro (Insulin Lispro 100 Unit/Ml 3 Ml Vial) 0 unit SUBCUT QIDACHS [facility]; Protocol Last Admin: 12/18/22 11:41 Dose: Not Given Documented By: HUBERT Non-Admin Reason: No Insulin Coverage Magnesium Hydroxide (Milk Of Magnesia 30 Ml Oral.Susp) 30 ml PO DAILY PRN PRN Reason: Constipation Melatonin (Melatonin 3 Mg Tablet) 6 mg PO BEDTIME PRN PRN Reason: Insomnia Methadone HCl (Methadone Hcl 20 Mg/2 Ml Oral.Conc) 135 mg PO DAILY [facility] Last Admin: 12/18/22 10:51 Dose: 135 mg Documented By: HUBERT Mirtazapine (Mirtazapine 7.5 Mg Tablet) 7.5 mg PO BEDTIME [facility] Last Admin: 12/17/22 20:36 Dose: 7.5 mg Documented By: MATIAS Nicotine (Nicotine 21 Mg Patch.Td24) 21 mg TRANSDERMA DAILY [facility] Last Admin: 12/18/22 10:51 Dose: 21 mg Documented By: HUBERT Nicotine Polacrilex (Nicotine Polacrilex 2 Mg Gum) 2 mg BUCCAL Q2H PRN PRN Reason: Nicotine Cravings Ondansetron HCl (Ondansetron Hcl 4 Mg/2 Ml Vial) 4 mg IVPUSH Q8H PRN PRN Reason: Nausea and Vomiting Oxycodone HCl (Oxycodone Hcl Immed Release 5 Mg Tablet) 5 mg PO Q6H PRN PRN Reason: Pain, Mild (Pain Scale 1-3) Last Admin: 12/18/22 11:04 Dose: 5 mg Documented By: HUBERT Quetiapine Fumarate (Quetiapine Fumarate 200 Mg Tablet) 200 mg PO BEDTIME [facility] Last Admin: 12/17/22 20:37 Dose: 200 mg Documented By: MATIAS Sodium Chloride (0.9 % Sodium Chloride Flush 3 Ml Syringe) [facility] Last Admin: 12/18/22 10:51 Dose: 3 ml Documented By: HUBERT Labs 12/13/22 09:01 12/18/22 06:03 Labs: Laboratory Results - last 24 hr 12/17/22 12/17/22 12/18/22 16:19 16:23 06:03 Estim Creat Clear Calc 147.2 Estimated GFR > 60 POC Glucose 107 Random Vancomycin 5.7 L 12/18/22 12/18/22 07:44 11:28 Estim Creat Clear Calc Estimated GFR POC Glucose 109 106 Random Vancomycin Assessment and Plan (1) MRSA bacteremia: Status: Acute (2) Cellulitis of arm: Status: Acute Plan 32-year-old male with a history anxiety, depression diabetes, asthma, IVDU? on methadone presents to the emergency with bilatareal? left arm pain, swelling and redness consistent with cellulitis Cellulitis of both arams R >> L from IV drug injection and diabetes Sepsis, MRSA bacteremia--POA arm looks similar to yesterday-ct right arm:?Prominent circumferential subcutaneous edema with associated skin thickening, likely indicating cellulitis. -No endocarditis on echo -was on? Zosyn 12/06 to 12/11 (6 days) -Continue Vanco 12/06/22 to present -ID [facility] -repeat blood cultures 12/11, PICC line today 12/13 ct right arm: worsening cellulitis ,ortho eval pending. IVDU - continue home dose of methadone -? p.r.n. Atarax for withdrawal symptoms -holding clonidine due to low BP -?Addiction Medicine following HypOtension on admission, -resolved, and in general runs low. Anemia-, no source of blood loss, monitor ?Diabetes ?non compliant with diabetic diet or metformin - resume metformin - SSI, POC ?Tobacco dependence ?smoking cessation has been advised -NRT anxiety/depression, no SI -continue home clonazepam, fluoxetine, seroquel, mirtazapine ekg qtc is 408 on admission Patient denies any suicidal ideation this time, he said he never said and suicidal ideation to anybody yesterday.so no need psych or bhn. dvt ppx - lovenox code status - full code Need for inpt: IV Abx for cellulitis and MRSA bacteremia in pt with IV drug use and diabetes, awaiting rehab placement. Time Spent With Patient Time: Total time managing care of this patient today ____ minutes. Quality Stroke Does the patient have a stroke diagnosis?: No VTE Prior VTE?: No VTE Risk Level:: Medical - moderate - high VTE Device Contraindication: Treatment Not Indicated VTE Drug Contraindication: N/A - Med Ordered
--- NOTE | 2022-12-18 11:53 | P.PNIM_ITS ---
Subjective Subjective Date of Service: 12/18/22 Interval History: Follow-up on cellulitis right arm in pt with iv drug use Review of Systems no new c/o no fever awake and sittin Physical Exam Vital Signs: Vital Signs: Last Vital Signs Temp 97.2 F 12/18/22 07:46 Pulse 59 12/18/22 07:46 Resp 18 12/18/22 07:46 BP 101/61 12/18/22 07:46 Pulse Ox 98 12/18/22 07:46 O2 Del Method Room Air 12/18/22 07:46 BMI result Body Mass Index 26.2 General: AO X 3,not in distress. Resp:? CTA bilateral CVS: S1,S2,RRR GI: +BS, NT, no distention Skin:? Previously pictured area with unless erythema, but has a hard induration on right arm seems somewhat improving Neuro:? motor grossly intact Psych: appropriate affect Objective Data Active Medications Acetaminophen (Acetaminophen 325 Mg Tablet) 650 mg PO Q6H PRN PRN Reason: Pain, Mild (Pain Scale 1-3) Albuterol Sulfate (Albuterol Sulfate 90 Mcg 8 Gm Inhaler) 2 puff INHALE QID PRN PRN Reason: wheezing Clonazepam (Clonazepam 1 Mg Tablet) 1 mg PO BID PRN PRN Reason: Anxiety Last Admin: 12/18/22 11:04 Dose: 1 mg Documented By: HUBERT Enoxaparin Sodium (Enoxaparin Sodium 40 Mg/0.4 Ml Syringe) 40 mg SUBCUT Q24H [facility] Last Admin: 12/18/22 10:51 Dose: 40 mg Documented By: HUBERT Fluoxetine HCl (Fluoxetine Hcl 20 Mg Capsule) 40 mg PO DAILY [facility] Last Admin: 12/18/22 10:51 Dose: 40 mg Documented By: HUBERT Gabapentin (Gabapentin 300 Mg Capsule) 300 mg PO BEDTIME [facility] Last Admin: 12/17/22 20:37 Dose: 300 mg Documented By: MATIAS Gabapentin (Gabapentin 600 Mg Tablet) 600 mg PO TID [facility] Last Admin: 12/18/22 10:51 Dose: 600 mg Documented By: HUBERT Glucose (Glucose Gel 15 Gm Gel..Gram.) 15 gm PO Q15M PRN; Protocol PRN Reason: per Hypoglycemia Standing Ord. Dextrose (D10) 250 mls @ 750 mls/hr IV Q15M PRN; Protocol PRN Reason: per Hypoglycemia Standing Ord. Vancomycin HCl 1,250 mg/ (Sodium Chloride) 250 mls @ 166.667 mls/hr IV Q8H [facility] Last Admin: 12/18/22 10:50 Dose: 166.66 mls/hr Documented By: HUBERT Insulin Human Lispro (Insulin Lispro 100 Unit/Ml 3 Ml Vial) 0 unit SUBCUT QIDACHS [facility]; Protocol Last Admin: 12/18/22 11:41 Dose: Not Given Documented By: HUBERT Non-Admin Reason: No Insulin Coverage Magnesium Hydroxide (Milk Of Magnesia 30 Ml Oral.Susp) 30 ml PO DAILY PRN PRN Reason: Constipation Melatonin (Melatonin 3 Mg Tablet) 6 mg PO BEDTIME PRN PRN Reason: Insomnia Methadone HCl (Methadone Hcl 20 Mg/2 Ml Oral.Conc) 135 mg PO DAILY [facility] Last Admin: 12/18/22 10:51 Dose: 135 mg Documented By: HUBERT Mirtazapine (Mirtazapine 7.5 Mg Tablet) 7.5 mg PO BEDTIME [facility] Last Admin: 12/17/22 20:36 Dose: 7.5 mg Documented By: MATIAS Nicotine (Nicotine 21 Mg Patch.Td24) 21 mg TRANSDERMA DAILY [facility] Last Admin: 12/18/22 10:51 Dose: 21 mg Documented By: HUBERT Nicotine Polacrilex (Nicotine Polacrilex 2 Mg Gum) 2 mg BUCCAL Q2H PRN PRN Reason: Nicotine Cravings Ondansetron HCl (Ondansetron Hcl 4 Mg/2 Ml Vial) 4 mg IVPUSH Q8H PRN PRN Reason: Nausea and Vomiting Oxycodone HCl (Oxycodone Hcl Immed Release 5 Mg Tablet) 5 mg PO Q6H PRN PRN Reason: Pain, Mild (Pain Scale 1-3) Last Admin: 12/18/22 11:04 Dose: 5 mg Documented By: HUBERT Quetiapine Fumarate (Quetiapine Fumarate 200 Mg Tablet) 200 mg PO BEDTIME [facility] Last Admin: 12/17/22 20:37 Dose: 200 mg Documented By: MATIAS Sodium Chloride (0.9 % Sodium Chloride Flush 3 Ml Syringe) 3 ml IVFLUSH QSHIFT [facility] Last Admin: 12/18/22 10:51 Dose: 3 ml Documented By: HUBERT Labs 12/13/22 09:01 12/18/22 06:03 Labs: Laboratory Results - last 24 hr 12/17/22 12/17/22 12/18/22 16:19 16:23 06:03 Estim Creat Clear Calc 147.2 Estimated GFR > 60 POC Glucose 107 Random Vancomycin 5.7 L 12/18/22 12/18/22 07:44 11:28 Estim Creat Clear Calc Estimated GFR POC Glucose 109 106 Random Vancomycin Assessment and Plan (1) MRSA bacteremia: Status: Acute (2) Cellulitis of arm: Status: Acute Plan 32-year-old male with a history anxiety, depression diabetes, asthma, IVDU? on methadone presents to the emergency with bilatareal? left arm pain, swelling and redness consistent with cellulitis Cellulitis of both arams R >> L from IV drug injection and diabetes Sepsis, MRSA bacteremia--POA arm looks similar to yesterday-ct right arm:?Prominent circumferential subcutaneous edema with associated skin thickening, likely indicating cellulitis. -No endocarditis on echo -was on? Zosyn 12/06 to 12/11 (6 days) -Continue Vanco 12/06/22 to present -ID recommend senior care treatment -repeat blood cultures 12/11, PICC line today 12/13 ct right arm: worsening cellulitis ,ortho eval pending. IVDU - continue home dose of methadone -? p.r.n. Atarax for withdrawal symptoms -holding clonidine due to low BP -?Addiction Medicine following HypOtension on admission, -resolved, and in general runs low. Anemia-, no source of blood loss, monitor ?Diabetes ?non compliant with diabetic diet or metformin - resume metformin - SSI, POC ?Tobacco dependence ?smoking cessation has been advised -NRT anxiety/depression, no SI -continue home clonazepam, fluoxetine, seroquel, mirtazapine ekg qtc is 408 on admission Patient denies any suicidal ideation this time, he said he never said and suicidal ideation to anybody yesterday.so no need psych or bhn. dvt ppx - lovenox code status - full code Need for inpt: IV Abx for cellulitis and MRSA bacteremia in pt with IV drug use and diabetes, awaiting rehab placement. Time Spent With Patient Time: Total time managing care of this patient today ____ minutes. Quality Stroke Does the patient have a stroke diagnosis?: No VTE Prior VTE?: No VTE Risk Level:: Medical - moderate - high VTE Device Contraindication: Treatment Not Indicated VTE Drug Contraindication: N/A - Med Ordered
[2022-12-18 15:20] VITALS: BP 106/56; PULSE 57; RESP 16; TEMP 36.6; O2SAT 98
[2022-12-18 16:15] LABS: Glucose, Whole Blood 176 mg/dL (60-115)
[2022-12-18 16:27] LABS: Vancomycin Random 19.6 mcg/mL (15-20)
[2022-12-18] MEDS: Insulin Lispro 100 UNIT/ML 3 ML VIAL SUBCUT (16:30)
[2022-12-18] MEDS: vancomycin HCL 1,000 MG in 0.9 % Sodium Chloride 250 ML 270 MG IV (17:40)
[2022-12-18 20:00] VITALS: BP 112/58; PULSE 92; RESP 16; TEMP 36.3; O2SAT 98
[2022-12-18 21:42] LABS: Glucose, Whole Blood 100 mg/dL (60-115)
[2022-12-18] MEDS: QUEtiapine Fumarate 200 MG TABLET PO (22:22)
[2022-12-18] MEDS: Gabapentin 300 MG CAPSULE PO (22:22)
[2022-12-18] MEDS: Mirtazapine 7.5 MG TABLET PO (22:22)
[2022-12-19 03:05] VITALS: BP 124/58; PULSE 54; RESP 16; TEMP 36; O2SAT 97
[2022-12-19] MEDS: oxyCODONE HCl Immed Release 5 MG TABLET PO ×4 (03:25→22:02)
[2022-12-19] MEDS: vancomycin HCL 1,000 MG in 0.9 % Sodium Chloride 250 ML 270 MG IV ×3 (03:27→18:16)
[2022-12-19 06:55] LABS: Creatinine Clr Calc Pharmacy 153.6; Estimated Glomerular Filt Rate > 60
[2022-12-19 08:00] VITALS: BP 128/85; PULSE 50; RESP 18; TEMP 36.6; O2SAT 97
[2022-12-19 08:11] LABS: Glucose, Whole Blood 86 mg/dL (60-115)
[2022-12-19] MEDS: clonazePAM 1 MG TABLET PO ×2 (10:18→16:03)
[2022-12-19] MEDS: Nicotine 21 MG PATCH.TD24 TRANSDERMA (10:18)
[2022-12-19] MEDS: FLUoxetine HCl 20 MG CAPSULE 40 MG PO (10:19)
[2022-12-19] MEDS: Gabapentin 600 MG TABLET PO ×3 (10:19→21:28)
[2022-12-19] MEDS: Enoxaparin Sodium 40 MG/0.4 ML SYRINGE SUBCUT (10:19)
[2022-12-19] MEDS: methADONE HCl 20 MG/2 ML ORAL.CONC 135 MG PO (10:19)
[2022-12-19] MEDS: 0.9 % Sodium Chloride Flush 3 ML SYRINGE IVFLUSH ×3 (10:20→21:28)
[2022-12-19 11:15] LABS: Glucose, Whole Blood 87 mg/dL (60-115)
--- NOTE | 2022-12-19 11:40 | HO.PM.IMPN ---
Subjective Subjective Date of Service: 12/19/22 Interval History: Follow-up on cellulitis right arm in pt with iv drug use Review of Systems no new c/o no fevers overnight Physical Exam Vital Signs: Vital Signs: Last Vital Signs Temp 97.8 F 12/19/22 08:00 Pulse 50 12/19/22 08:00 Resp 18 12/19/22 08:00 BP 128/85 12/19/22 08:00 Pulse Ox 97 12/19/22 08:00 O2 Del Method Room Air 12/19/22 08:00 BMI result Body Mass Index 26.2 General: AO X 3,not in distress. Resp:? CTA bilateral CVS: S1,S2,RRR GI: +BS, NT, no distention Skin:? Previously pictured area with unless erythema/induration area improving Neuro:? motor grossly intact Psych: appropriate affect Objective Data Active Medications Acetaminophen (Acetaminophen 325 Mg Tablet) 650 mg PO Q6H PRN PRN Reason: Pain, Mild (Pain Scale 1-3) Albuterol Sulfate (Albuterol Sulfate 90 Mcg 8 Gm Inhaler) 2 puff INHALE QID PRN PRN Reason: wheezing Clonazepam (Clonazepam 1 Mg Tablet) 1 mg PO BID PRN PRN Reason: Anxiety Last Admin: 12/19/22 10:18 Dose: 1 mg Documented By: HUBERT Enoxaparin Sodium (Enoxaparin Sodium 40 Mg/0.4 Ml Syringe) 40 mg SUBCUT Q24H [facility] Last Admin: 12/19/22 10:19 Dose: 40 mg Documented By: HUBERT Fluoxetine HCl (Fluoxetine Hcl 20 Mg Capsule) 40 mg PO DAILY [facility] Last Admin: 12/19/22 10:19 Dose: 40 mg Documented By: HUBERT Gabapentin (Gabapentin 300 Mg Capsule) 300 mg PO BEDTIME [facility] Last Admin: 12/18/22 22:22 Dose: 300 mg Documented By: FAITH Gabapentin (Gabapentin 600 Mg Tablet) 600 mg PO TID [facility] Last Admin: 12/19/22 10:19 Dose: 600 mg Documented By: HUBERT Glucose (Glucose Gel 15 Gm Gel..Gram.) 15 gm PO Q15M PRN; Protocol PRN Reason: per Hypoglycemia Standing Ord. Dextrose (D10) 250 mls @ 750 mls/hr IV Q15M PRN; Protocol PRN Reason: per Hypoglycemia Standing Ord. Vancomycin HCl 1,000 mg/ (Sodium Chloride) 270 mls @ 270 mls/hr IV Q8H [facility] Last Infusion: 12/19/22 11:20 Dose: 0 mls/hr Documented By: HUBERT Insulin Human Lispro (Insulin Lispro 100 Unit/Ml 3 Ml Vial) 0 unit SUBCUT QIDACHS [facility]; Protocol Last Admin: 12/19/22 08:14 Dose: Not Given Documented By: HUBERT Non-Admin Reason: No Insulin Coverage Magnesium Hydroxide (Milk Of Magnesia 30 Ml Oral.Susp) 30 ml PO DAILY PRN PRN Reason: Constipation Melatonin (Melatonin 3 Mg Tablet) 6 mg PO BEDTIME PRN PRN Reason: Insomnia Methadone HCl (Methadone Hcl 20 Mg/2 Ml Oral.Conc) 135 mg PO DAILY [facility] Last Admin: 12/19/22 10:19 Dose: 135 mg Documented By: HUBERT Mirtazapine (Mirtazapine 7.5 Mg Tablet) 7.5 mg PO BEDTIME [facility] Last Admin: 12/18/22 22:22 Dose: 7.5 mg Documented By: FAITH Nicotine (Nicotine 21 Mg Patch.Td24) 21 mg TRANSDERMA DAILY [facility] Last Admin: 12/19/22 10:18 Dose: 21 mg Documented By: HUBERT Nicotine Polacrilex (Nicotine Polacrilex 2 Mg Gum) 2 mg BUCCAL Q2H PRN PRN Reason: Nicotine Cravings Ondansetron HCl (Ondansetron Hcl 4 Mg/2 Ml Vial) 4 mg IVPUSH Q8H PRN PRN Reason: Nausea and Vomiting Oxycodone HCl (Oxycodone Hcl Immed Release 5 Mg Tablet) 5 mg PO Q6H PRN PRN Reason: Pain, Mild (Pain Scale 1-3) Last Admin: 12/19/22 10:18 Dose: 5 mg Documented By: HUBERT Quetiapine Fumarate (Quetiapine Fumarate 200 Mg Tablet) 200 mg PO BEDTIME [facility] Last Admin: 12/18/22 22:22 Dose: 200 mg Documented By: FAITH Sodium Chloride (0.9 % Sodium Chloride Flush 3 Ml Syringe) 3 ml IVFLUSH QSHIFT [facility] Last Admin: 05/21/23 10:20 Dose: 3 ml Documented By: HUBERT Labs 12/13/22 09:01 12/19/22 05:55 Labs: Laboratory Results - last 24 hr 12/18/22 12/18/22 12/18/22 15:59 16:12 21:00 Estim Creat Clear Calc Estimated GFR POC Glucose 176 H 100 Random Vancomycin 19.6 12/19/22 12/19/22 12/19/22 05:55 08:08 11:11 Estim Creat Clear Calc 153.6 Estimated GFR > 60 POC Glucose 86 87 Random Vancomycin Assessment and Plan (1) MRSA bacteremia: Status: Acute (2) Cellulitis of arm: Status: Acute Plan 32-year-old male with a history anxiety, depression diabetes, asthma, IVDU? on methadone presents to the emergency with bilatareal? left arm pain, swelling and redness consistent with cellulitis Cellulitis of both arams R >> L from IV drug injection and diabetes Sepsis, MRSA bacteremia--POA arm looks similar to yesterday-ct right arm:?Prominent circumferential subcutaneous edema with associated skin thickening, likely indicating cellulitis. -No endocarditis on echo -was on? Zosyn 12/06 to 12/11 (6 days) -Continue Vanco 12/06/22 to present -ID recommend [facility]dc treatment -repeat blood cultures 12/11, PICC line today 12/13 ct right armreviewed by ortho ,also seen by ortho-patient cellulitis seems improivng -continue iv antibiotics. IVDU - continue home dose of methadone -? p.r.n. Atarax for withdrawal symptoms -holding clonidine due to low BP -?Addiction Medicine following HypOtension on admission, -resolved, and in general runs low. Anemia-, no source of blood loss, monitor ?Diabetes ?non compliant with diabetic diet or metformin - resume metformin - SSI, POC ?Tobacco dependence ?smoking cessation has been advised -NRT anxiety/depression, no SI -continue home clonazepam, fluoxetine, seroquel, mirtazapine ekg qtc is 408 on admission Patient denies any suicidal ideation this time, he said he never said and suicidal ideation to anybody yesterday.so no need psych or bhn. dvt ppx - lovenox code status - full code Need for inpt: IV Abx for cellulitis and MRSA bacteremia in pt with IV drug use and diabetes, awaiting rehab placement. Time Spent With Patient Time: Total time managing care of this patient today ____ minutes. Quality Stroke Does the patient have a stroke diagnosis?: No VTE Prior VTE?: No VTE Risk Level:: Medical - moderate - high VTE Device Contraindication: Treatment Not Indicated VTE Drug Contraindication: N/A - Med Ordered
[2022-12-19 15:24] VITALS: BP 105/58; PULSE 65; RESP 16; TEMP 36.3; O2SAT 98
[2022-12-19 16:19] LABS: Vancomycin Random 16.4 mcg/mL (15-20)
[2022-12-19 16:32] LABS: Glucose, Whole Blood 114 mg/dL (60-115)
[2022-12-19 19:12] VITALS: BP 111/59; PULSE 55; RESP 18; TEMP 36.7; O2SAT 97
[2022-12-19 20:12] LABS: Glucose, Whole Blood 84 mg/dL (60-115)
[2022-12-19] MEDS: Gabapentin 300 MG CAPSULE PO (21:27)
[2022-12-19] MEDS: QUEtiapine Fumarate 200 MG TABLET PO (21:27)
[2022-12-19] MEDS: Mirtazapine 7.5 MG TABLET PO (21:28)
[2022-12-20 03:02] VITALS: BP 104/55; PULSE 54; RESP 16; TEMP 36.3; O2SAT 96
[2022-12-20] MEDS: vancomycin HCL 1,000 MG in 0.9 % Sodium Chloride 250 ML 270 MG IV ×3 (03:05→18:10)
[2022-12-20 07:04] LABS: Creatinine Clr Calc Pharmacy 149.3; Estimated Glomerular Filt Rate > 60
[2022-12-20 07:23] VITALS: BP 117/74; PULSE 53; RESP 16; TEMP 36.4; O2SAT 97
[2022-12-20 07:39] LABS: Glucose, Whole Blood 85 mg/dL (60-115)
[2022-12-20] MEDS: methADONE HCl 20 MG/2 ML ORAL.CONC 135 MG PO (08:25)
[2022-12-20] MEDS: Nicotine 21 MG PATCH.TD24 TRANSDERMA (08:26)
[2022-12-20] MEDS: FLUoxetine HCl 20 MG CAPSULE 40 MG PO (08:26)
[2022-12-20] MEDS: Gabapentin 600 MG TABLET PO ×3 (08:26→21:09)
[2022-12-20] MEDS: 0.9 % Sodium Chloride Flush 3 ML SYRINGE IVFLUSH ×3 (08:30→21:10)
[2022-12-20] MEDS: oxyCODONE HCl Immed Release 5 MG TABLET PO ×3 (09:12→22:54)
[2022-12-20] MEDS: clonazePAM 1 MG TABLET PO ×3 (09:12→21:09)
[2022-12-20] MEDS: Enoxaparin Sodium 40 MG/0.4 ML SYRINGE SUBCUT (09:14)
[2022-12-20 11:24] LABS: Glucose, Whole Blood 100 mg/dL (60-115)
--- NOTE | 2022-12-20 12:51 | HO.PM.IMPN ---
Subjective Subjective Date of Service: 12/20/22 Interval History: Follow-up on cellulitis right arm in pt with iv drug use Review of Systems no new c/o no fevers overnight Physical Exam Vital Signs: Vital Signs: Last Vital Signs Temp 97.6 F 12/20/22 07:23 Pulse 53 12/20/22 07:23 Resp 16 12/20/22 07:23 BP 117/74 12/20/22 07:23 Pulse Ox 97 12/20/22 07:23 O2 Del Method Room Air 12/20/22 07:23 BMI result Body Mass Index 26.2 General: AO X 3,not in distress. Resp:? CTA bilateral CVS: S1,S2,RRR GI: +BS, NT, no distention Skin:? Previously pictured area with unless erythema/induration area improving Neuro:? motor grossly intact Psych: appropriate affect Objective Data Active Medications Acetaminophen (Acetaminophen 325 Mg Tablet) 650 mg PO Q6H PRN PRN Reason: Pain, Mild (Pain Scale 1-3) Albuterol Sulfate (Albuterol Sulfate 90 Mcg 8 Gm Inhaler) 2 puff INHALE QID PRN PRN Reason: wheezing Clonazepam (Clonazepam 1 Mg Tablet) 1 mg PO BID PRN PRN Reason: Anxiety Last Admin: 12/20/22 09:12 Dose: 1 mg Documented By: ARMANDO Enoxaparin Sodium (Enoxaparin Sodium 40 Mg/0.4 Ml Syringe) 40 mg SUBCUT Q24H [facility] Last Admin: 12/20/22 09:14 Dose: 40 mg Documented By: ARMANDO Fluoxetine HCl (Fluoxetine Hcl 20 Mg Capsule) 40 mg PO DAILY [facility] Last Admin: 12/20/22 08:26 Dose: 40 mg Documented By: ARMANDO Gabapentin (Gabapentin 300 Mg Capsule) 300 mg PO BEDTIME [facility] Last Admin: 12/19/22 21:27 Dose: 300 mg Documented By: VIKAS Gabapentin (Gabapentin 600 Mg Tablet) 600 mg PO TID [facility] Last Admin: 12/20/22 08:26 Dose: 600 mg Documented By: ARMANDO Glucose (Glucose Gel 15 Gm Gel..Gram.) 15 gm PO Q15M PRN; Protocol PRN Reason: per Hypoglycemia Standing Ord. Dextrose (D10) 250 mls @ 750 mls/hr IV Q15M PRN; Protocol PRN Reason: per Hypoglycemia Standing Ord. Vancomycin HCl 1,000 mg/ (Sodium Chloride) 270 mls @ 270 mls/hr IV Q8H [facility] Last Infusion: 12/20/22 10:28 Dose: 0 mls/hr Documented By: ARMANDO Insulin Human Lispro (Insulin Lispro 100 Unit/Ml 3 Ml Vial) 0 unit SUBCUT QIDACHS [facility]; Protocol Last Admin: 12/20/22 12:04 Dose: Not Given Documented By: ARMANDO Non-Admin Reason: No Insulin Coverage Magnesium Hydroxide (Milk Of Magnesia 30 Ml Oral.Susp) 30 ml PO DAILY PRN PRN Reason: Constipation Melatonin (Melatonin 3 Mg Tablet) 6 mg PO BEDTIME PRN PRN Reason: Insomnia Methadone HCl (Methadone Hcl 20 Mg/2 Ml Oral.Conc) 135 mg PO DAILY [facility] Last Admin: 12/20/22 08:25 Dose: 135 mg Documented By: ARMANDO Mirtazapine (Mirtazapine 7.5 Mg Tablet) 7.5 mg PO BEDTIME [facility] Last Admin: 12/19/22 21:28 Dose: 7.5 mg Documented By: VIKAS Nicotine (Nicotine 21 Mg Patch.Td24) 21 mg TRANSDERMA DAILY [facility] Last Admin: 12/20/22 08:26 Dose: 21 mg Documented By: ARMANDO Nicotine Polacrilex (Nicotine Polacrilex 2 Mg Gum) 2 mg BUCCAL Q2H PRN PRN Reason: Nicotine Cravings Ondansetron HCl (Ondansetron Hcl 4 Mg/2 Ml Vial) 4 mg IVPUSH Q8H PRN PRN Reason: Nausea and Vomiting Oxycodone HCl (Oxycodone Hcl Immed Release 5 Mg Tablet) 5 mg PO Q6H PRN PRN Reason: Pain, Mild (Pain Scale 1-3) Last Admin: 12/20/22 09:12 Dose: 5 mg Documented By: ARMANDO Quetiapine Fumarate (Quetiapine Fumarate 200 Mg Tablet) 200 mg PO BEDTIME [facility] Last Admin: 12/19/22 21:27 Dose: 200 mg Documented By: VIKAS Sodium Chloride (0.9 % Sodium Chloride Flush 3 Ml Syringe) 3 ml IVFLUSH QSHIFT [facility] Last Admin: 12/20/22 08:30 Dose: 3 ml Documented By: ARMANDO Labs 12/13/22 09:01 12/20/22 06:04 Labs: Laboratory Results - last 24 hr 12/19/22 12/19/22 12/19/22 16:00 16:21 20:08 Estim Creat Clear Calc Estimated GFR POC Glucose 114 84 Random Vancomycin 16.4 12/20/22 12/20/22 12/20/22 06:04 07:25 11:19 Estim Creat Clear Calc 149.3 Estimated GFR > 60 POC Glucose 85 100 Random Vancomycin Assessment and Plan (1) MRSA bacteremia: Status: Acute (2) Cellulitis of arm: Status: Acute Plan 32-year-old male with a history anxiety, depression diabetes, asthma, IVDU? on methadone presents to the emergency with bilatareal? left arm pain, swelling and redness consistent with cellulitis Cellulitis of both arams R >> L from IV drug injection and diabetes Sepsis, MRSA bacteremia--POA arm looks similar to yesterday-ct right arm:?Prominent circumferential subcutaneous edema with associated skin thickening, likely indicating cellulitis. -No endocarditis on echo -was on? Zosyn 12/06 to 12/11 (6 days) -Continue Vanco 12/06/22 to present -ID recommend [facility] treatment -repeat blood cultures 12/11, PICC line today 12/13 ct right armreviewed by ortho ,also seen by ortho-patient cellulitis seems improivng -continue iv antibiotics. IVDU - continue home dose of methadone -? p.r.n. Atarax for withdrawal symptoms -holding clonidine due to low BP -?Addiction Medicine following HypOtension on admission, -resolved, and in general runs low. Anemia-, no source of blood loss, monitor ?Diabetes ?non compliant with diabetic diet or metformin - resume metformin - SSI, POC ?Tobacco dependence ?smoking cessation has been advised -NRT anxiety/depression, no SI -continue home clonazepam, fluoxetine, seroquel, mirtazapine ekg qtc is 408 on admission Patient denies any suicidal ideation this time, he said he never said and suicidal ideation to anybody yesterday.so no need psych or bhn. dvt ppx - lovenox code status - full code Need for inpt: IV Abx for cellulitis and MRSA bacteremia in pt with IV drug use and diabetes, awaiting rehab placement. Time Spent With Patient Time: Total time managing care of this patient today ____ minutes. Quality Stroke Does the patient have a stroke diagnosis?: No VTE Prior VTE?: No VTE Risk Level:: Medical - moderate - high VTE Device Contraindication: Treatment Not Indicated VTE Drug Contraindication: N/A - Med Ordered
--- NOTE | 2022-12-20 14:03 | MHC.CM.PN ---
CM CONTINUES TO AWAIT INSURANCE AUTH VIA [employer] AND GUEST DOSING TO BE RE-SUBMITTED BY [facility] ECHAVARRIA TO [facility] WITH CORRECT DATE. LIAISON STATES [facility] HAS CLOSED FOR THE DAY AND WILL NOT BE ABLE TO CONFIRM PT DOSING FORM WAS COMPLETED UNTIL 12/21. RACHID FROM [facility] [employer] NOTIFIED OF NEED TO RE-SUBMIT FORM WITH THE CORRECT DATE TO [facility] VIA . PT STATES HE MAY NOT WANT TO GO TO REHAB BUT WILL THINK ABOUT IT WHILE WAITING FOR AUTH. CM ENCOURAGED PT TO ACCEPT BED WHEN AUTH OBTAINED FOR BEST INTEREST OF HIS HEALTH. MADE AWARE. CM WILL CONT TO FOLLOW FOR ANY CHANGE IN DC PLAN/NEEDS.
[2022-12-20 15:39] VITALS: BP 126/67; PULSE 57; RESP 18; TEMP 36.6; O2SAT 97
[2022-12-20 16:17] LABS: Glucose, Whole Blood 92 mg/dL (60-115)
[2022-12-20 17:38] LABS: Vancomycin Random 13.6 mcg/mL (15-20)
[2022-12-20 19:31] VITALS: BP 116/65; PULSE 54; RESP 20; TEMP 36.3; O2SAT 97
[2022-12-20 20:25] LABS: Glucose, Whole Blood 91 mg/dL (60-115)
[2022-12-20] MEDS: Mirtazapine 7.5 MG TABLET PO (21:09)
[2022-12-20] MEDS: Gabapentin 300 MG CAPSULE PO (21:09)
[2022-12-20] MEDS: QUEtiapine Fumarate 200 MG TABLET PO (21:09)
[2022-12-21] MEDS: vancomycin HCL 1,000 MG in 0.9 % Sodium Chloride 250 ML 270 MG IV ×2 (01:54→09:05)
[2022-12-21 04:00] VITALS: BP 116/67; PULSE 63; RESP 16; TEMP 36.2; O2SAT 96
[2022-12-21 06:26] LABS: Creatinine Clr Calc Pharmacy 141.4; Estimated Glomerular Filt Rate > 60
[2022-12-21 07:36] VITALS: BP 104/52; PULSE 96; RESP 18; TEMP 36.2; O2SAT 96
[2022-12-21 07:55] LABS: Glucose, Whole Blood 84 mg/dL (60-115)
[2022-12-21] MEDS: Enoxaparin Sodium 40 MG/0.4 ML SYRINGE SUBCUT (09:04)
[2022-12-21] MEDS: FLUoxetine HCl 20 MG CAPSULE 40 MG PO (09:04)
[2022-12-21] MEDS: methADONE HCl 20 MG/2 ML ORAL.CONC 135 MG PO (09:04)
[2022-12-21] MEDS: Nicotine 21 MG PATCH.TD24 TRANSDERMA (09:04)
[2022-12-21] MEDS: Gabapentin 600 MG TABLET PO (09:04)
[2022-12-21] MEDS: 0.9 % Sodium Chloride Flush 3 ML SYRINGE IVFLUSH (09:05)
[2022-12-21] MEDS: oxyCODONE HCl Immed Release 5 MG TABLET PO (09:34)
[2022-12-21] MEDS: clonazePAM 1 MG TABLET PO (09:34)
--- NOTE | 2022-12-21 10:26 | P.DS_ITS ---
DS: Providers Provider Date of Service: 12/21/22 Date of admission: 12/06/22 09:25 Primary care physician: Orlando Mahmood III, MD Consults: 12/06/22 09:56 Addiction Medicine Routine Consulting Provider: Addiction Covering Reason for consultation: ivda 12/09/22 08:39 Consult to Infectious Diseases [place]ine [place] [facility] [place] Reason for consultation: cellulitis in drug user Has provider been notified: No 12/14/22 12:52 Consult to Orthopedics Routine Consulting Provider: Minna Nash Reason for consultation: ivdu-right arm cellulitis worsenin Has provider been notified: No DS: Diagnosis Discharge Diagnosis (1) MRSA bacteremia: Status: Acute (2) Cellulitis of arm: Status: Acute DS: Summary Hospital Course Hospital Course: Chief Complaint: Redness on our arms ?32-year-old male with a history anxiety, depression diabetes, asthma, IVDU? on methadone? presents to the emergency with bilatareal? arm pain, swelling and redness for days to weeks in areas of attempted injection. (see pictures below). He reports fever and noted to have a temp of 101. Normal WBC, he also reported vague chest pain, no sob. BP is low at 89/38 but assymptomatic at this time--prior record show chronic hypotension Hospital course: This patient with history of intravenous drug use presented with cellulitis of his arms associated with a fever but normal WBC he was initiated on IV antibiotics for cellulitis and ultimately grew MRSA in the blood. Further workup included a CT of the arm which showed no abscess, echocardiogram showed no endocarditis patient was seen by infectious disease and the recommendation was that the patient be treated with IV antibiotics with vancomycin for 6 weeks. Case management worked diligently to find a sniff at bed for the patient to get the IV antibiotics, a PICC line was therefore inserted he was initially agreeable to going to get the IV antibiotics however on the day of discharge he decided that he did no longer wanted to go to the SNF to complete a course of antibiotics and rather wanted to leave against medical advice, advising that time he was condition was a serious a needed IV antibiotics as extended treatment he was adamant that he did not want this and wanted to leave AMA he. He understands that IV antibiotics is the treatment of choice and that oral antibiotics may not work and is at riks for fullminatnt sepsis and even the posibility of . Of sounds mind, he states that he will take his change with oral antibiotics, additionally he is advised to avoid use of IV drug. He will be prescribed oral doxy 100 mg twice daily for 1 month, again udnerstading that this may not work. product mgmt dev manager and RN also spoke to him and could not convince him to stay Final diagnosis: MRSA sepsis MRSA bacteremia Cellulitis of the arm Intravenous drug use History of diabetes Time Spent with Patient Time attestation: Total time managing care of this patient today ____ minutes. Discharge coordination time: Greater than 30 minutes Quality: Safe Use of Opioids Does Pt have an Active Cancer Diagnosis on the Problem List?: No Quality: Stroke Does the patient have a stroke diagnosis?: No Physical Exam Vital Signs: Vital Signs: Last Vital Signs Temp 97.1 F 12/21/22 07:36 Pulse 96 12/21/22 07:36 Resp 18 12/21/22 07:36 BP 104/52 L 12/21/22 07:36 Pulse Ox 96 12/21/22 07:36 O2 Del Method Room Air 12/21/22 07:36 BMI result Body Mass Index 26.2 DS: Data Data Completed and Pending Labs on day of discharge: Laboratory Results - last 24 hr 12/20/22 12/20/22 12/20/22 11:19 16:13 16:45 Creatinine Estim Creat Clear Calc Estimated GFR POC Glucose 100 92 Random Vancomycin 13.6 L 12/20/22 12/21/22 12/21/22 20:21 05:33 07:41 Creatinine 0.75 Estim Creat Clear Calc 141.4 Estimated GFR > 60 POC Glucose 91 84 Random Vancomycin Discharge Plan Discharge Anticipated Discharge Date/Time: 12/21/22 10:12 Patient Disposition: Left Against Medical Advice Discharge Diagnosis: MRSA sepsis and bactere,oa Referrals: Orlando Mahmood III, MD [Primary Care Provider] - 1 Week Discharge Medications: New doxycycline hyclate 100 mg tablet 100 mg PO BID 30 Days Qty: 60 0RF Continued fluoxetine 40 mg capsule 1 cap PO DAILY Hold Instructions: Resume on 07/05/22. gabapentin 600 mg tablet 1 tab PO TID Hold Instructions: Resume on 07/05/22. clonazepam 1 mg tablet 1 tab PO TID Hold Instructions: Resume on 07/05/22. gabapentin 300 mg capsule 1 cap PO BEDTIME Hold Instructions: Resume on 07/05/22. Rx Instructions: takes with 600 mg dose at bedtime methadone [Methadone Intensol] 10 mg/mL Concentrate 135 mg PO DAILY nicotine 21 mg/24 hr Patch 24 Hour 21 mg transdermal DAILY 28 Days Qty: 28 0RF nicotine (polacrilex) 2 mg Gum 2 mg buccal Q2H PRN (Reason: Nicotine Cravings) 30 Days Qty: 100 0RF albuterol sulfate [ProAir HFA] 90 mcg/actuation HFA aerosol inhaler 2 puff inhalation QID PRN (Reason: wheezing) mirtazapine 7.5 mg Tablet 7.5 mg PO BEDTIME Qty: 30 0RF Hold Instructions: Resume on 07/05/22. clonidine HCl 0.1 mg tablet 0.1 mg PO TID Qty: 90 0RF Hold Instructions: Resume on 07/05/22. quetiapine 200 mg Tablet 200 mg PO BEDTIME Discharge Orders: Discharge Order (Routine); Ordered 12/21/22 Ordered By: Kal Ruiz Diet: Advance to usual diet Activity on Discharge: As tolerated Care Plan Goals: Full recovery from MRSA bacteremia Health Concerns: MRSA sepsis, bacteremia Plan of Treatment: Since you no longer want IV antibiotics or go to a facility to get the antibitiocs through PICC line, Oral Doxycyline is been given as alternate, understanding that this is not standard treatment and may not eradicate your infection and thus puttin you at risk for worsening infection and potention full blown sepsis and even , and your words accepts full responsibility for this, nurse Sparks being witnessed Take Doxcycline 100 mg twice daily for 1 month and follow up with your Doctor within a week, call for appointment Assessment: as above
--- NOTE | 2022-12-21 10:40 | MHC.CM.PN ---
DP: [facility] HAS OBTAINED INSURANCE AUTH AND [facility] HAS THE APPROPRIATE GUEST DOSING INFORMATION HOWEVER THE PT IS NOW REFUSING TO GO. MD AWARE AND PT WILL DC AMA (NEEDS REHAB FOR PICC LINE MANAGEMENT AND IV ABT) [facility] LIAISON NOTIFIED. RN AWARE. PT HAS HIS OWN RIDE HOME.
--- NOTE | 2022-12-21 11:12 | HO.REMOVAL ---
Removal of PICC/Midline Removal of PICC/Midline: Removal of PICC/Midline: 1. Date: 12/21/2022 2. Reason removed: Patient leaving AMA IVD user, order 3. Inserted length: 47 cm 4. Removed length: 47 cm 5. A dressing was placed over the site upon removal. No edema or bleeding at the site.
== END 2022-12-21 12:36 | disposition left against medical advice (07) | DRG 383 ==
LOC: HO.ED 12-06 07:33 → HO.EDOVER 12-06 10:26 → HO.S3 12-06 15:20
PROVIDERS: Internal Medicine; Admitting Provider Internal Medicine; Emergency Provider Emergency Medicine Emergency Medical Services; PCP Internal Medicine; Visit Provider Internal Medicine
DX: L03.113 Cellulitis of right upper limb (principal); I95.89 Other hypotension; F33.9 Major depressive disorder, recurrent, unspecified; E11.628 Type 2 diabetes mellitus with other skin complications; F11.20 Opioid dependence, uncomplicated; D64.9 Anemia, unspecified; B95.62 Methicillin resistant Staphylococcus aureus infection as the cause of diseases classified elsewhere; F17.210 Nicotine dependence, cigarettes, uncomplicated; F41.9 Anxiety disorder, unspecified; L03.114 Cellulitis of left upper limb; F19.10 Other psychoactive substance abuse, uncomplicated; Z71.6 Tobacco abuse counseling; Z91.148 Patient's other noncompliance with medication regimen for other reason; Z20.822 Contact with and (suspected) exposure to COVID-19; Z79.899 Other long term (current) drug therapy
CPT/HCPCS: 0241U; 36415; 36573; 71045; 73090; 73200; 80053; 80202; 82565; 82947; 83036; 83605; 84484; 85025; 85027; 86803; 87040; 87077; 87147; 87186; 87205; 87389; 93005; 93306; 93971; 99285; C1751; J1650; J2543; J3370; J3371

== ENCOUNTER 2023-02-13 19:44 | Inpatient (IN) | payer OTHER, SELFPAY ==
--- NOTE | ~2023-02-13 | XR_ITS ---
EXAMINATION: XR CHEST CLINICAL INFORMATION: Chest pain COMPARISON: None available. TECHNIQUE: 2 views of the chest were obtained. FINDINGS: No significant abnormality is noted involving the heart, lungs, mediastinum, bony thorax or soft tissues. XR/XR chest 2V IMPRESSION: Unremarkable examination.
--- NOTE | 2023-02-13 19:45 | ECG_ITS ---
Test Reason : CP Blood Pressure : / mmHG Vent. Rate : 073 BPM Atrial Rate : 073 BPM P-R Int : 158 ms QRS Dur : 084 ms QT Int : 374 ms P-R-T Axes : 063 031 044 degrees QTc Int : 412 ms Normal sinus rhythm Normal ECG When compared with ECG of 05-DEC-2022 22:53, No significant change was found Referred By: Monica Garcia Electronically Signed By:Jameson Bellamy
[2023-02-13 19:58] VITALS: BP 93/53; PULSE 76; RESP 18; TEMP 36.8; O2SAT 98; BMI 27.1
--- NOTE | 2023-02-13 19:59 | ED_ITS ---
HPI - General Adult General Chief complaint: Chest Pain Stated complaint: chest pain/ thinks he is septic Time Seen by Provider: 02/13/23 22:26 Source: patient Mode of arrival: ambulatory Limitations: no limitations History of Present Illness HPI narrative: 32yoM with a PMHx of Diabetes, IV poly substance abuse presenting to the ER with complaints of fevers, chills, multiple abscesses, chest pain over the past few days worse today. Reports ?I think I have sepsis?. Last used this morning cocaine via IV. Patient reports he is interested in detox. Patient had bilateral arm cellulitis with MRSA in the past. Related Data Home Medications Medication Instructions Recorded Confirmed clonazepam 1 mg tablet 1 tab PO TID 01/30/21 12/06/22 fluoxetine 40 mg capsule 1 cap PO DAILY 01/30/21 12/06/22 gabapentin 300 mg capsule 1 cap PO BEDTIME 01/30/21 12/06/22 gabapentin 600 mg tablet 1 tab PO TID 01/30/21 12/06/22 methadone 10 mg/mL oral 135 mg PO DAILY 01/30/21 12/06/22 concentrate (Methadone Intensol) albuterol sulfate 90 mcg/actuation 2 puff inhalation QID PRN wheezing 02/22/22 12/06/22 aerosol inhaler (ProAir HFA) quetiapine 200 mg tablet 200 mg PO BEDTIME 12/06/22 12/06/22 Previous Rx's Medication Instructions Recorded clonidine HCl 0.1 mg tablet 0.1 mg PO TID #90 tabs 03/02/22 mirtazapine 7.5 mg tablet 7.5 mg PO BEDTIME #30 tabs 03/02/22 nicotine (polacrilex) 2 mg gum 2 mg buccal Q2H PRN Nicotine 07/09/22 Cravings 30 days #100 ea nicotine 21 mg/24 hr daily 21 mg transdermal DAILY 28 days 07/09/22 transdermal patch #28 ea doxycycline hyclate 100 mg tablet 100 mg PO BID 30 days #60 tabs 12/21/22 Allergies Allergy/AdvReac Type Severity Reaction Status Date / Time Pertussis Vaccines Allergy Mild HIVES Verified 02/13/23 19:58 [PERTUSSIS VACCINES] Review of Systems Review of Systems: All other systems are reviewed and are negative Constitutional: Reports as per HPI and Reports no additional constitutional complaints Eyes: Reports as per HPI and Reports no additional eye complaints Reports system reviewed and no additional complaints, except as documented Cardiovascular: Reports as per HPI and Reports no additional cardiovascular complaints Respiratory: Reports as per HPI and Reports no additional respiratory complaints Gastrointestinal: Reports as per HPI and Reports no additional gastrointestinal complaints Genitourinary: Reports no additional female genitourinary complaints Musculoskeletal: Reports no additional musculoskeletal complaints Skin/Breast: Reports system reviewed and no additional complaints, except as d ocu Psychiatric: Reports no additional psychiatric complaints Endocrine: Reports no additional endocrine complaints Hematologic/Lymphatic: Reports no additional hematologic/lymphatic complaints Allergic/Immunologic: Reports no additional allergic/immunologic complaints Reports system reviewed and no additional complaints, except as documented and Reports Abnormal speech present PMFSH Past Medical History Medical History Anxiety Asthma Cocaine use with cocaine-induced disorder Depression Depression Diabetes Diabetes IVDU (intravenous drug user) Major depressive disorder, recurrent severe without psychotic features Opiate dependence, continuous Suicidal ideation Family History Family History Father Heart disease Social History Social History Household Members: Family Household Members Other:: Mother and brother Housing: House Do you presently have visiting nurse or other home services: No Alcohol intake: never Patient Tobacco Use Status: Current everyday Tobacco user Tobacco use type: Cigarette Cigarette Packs Per Day: 1 Cigarettes Per Day: 20.0 Years Smoked: 15 e-Cigarette/Vaping Use: Currently Using Second Hand Smoke Exposure: Yes Substance Use Type: Crack/Cocaine and Opiates Advance Directives: No Advance Directives Information Provided: No Advance Directives Date on File: 01/30/21 service: No Current occupational status: unemployed Sexual orientation: Straight/Heterosexual Physical Exam ED Vital Signs: Vital Signs - 24 hr 02/13/23 19:58 02/13/23 22:04 02/13/23 23:14 Temperature 98.2 F Pulse Rate 76 60 Respiratory Rate 18 14 Blood Pressure 93/53 L 87/41 L 91/49 L Pulse Oximetry 98 95 Oxygen Delivery Method Room Air Room Air 02/14/23 00:40 Temperature Pulse Rate 57 Respiratory Rate 14 Blood Pressure 87/50 L Pulse Oximetry 97 Oxygen Delivery Method Room Air BMI result Body Mass Index 27.1 Vital signs have been reviewed as appeared to be correct. Blood pressure normal. Heart rate normal. Respiration rate normal. Temperature normal. Oxygen saturation normal. Appearance: Alert. Oriented X3. No acute distress. Head: Normal external exam. Normocephalic. Atraumatic. No Azevedo signs noted. No raccoon eyes noted Eyes: PERRLA. EOMI. Conjunctiva and sclera normal. Eyelids normal. ENT: TM's Normal. Pharynx normal. Uvula midline. Moist mucous membranes. No trismus noted. No drooling noted. No muffled voice noted. Neck: Normal inspection. Neck supple. FROM. No adenopathy. Thyroid Normal. No meningeal signs. No neck mass noted. CVS: Normal heart rate and rhythm. Heart sound normal. No murmurs noted. Pulses normal throughout. Respiratory: No respiratory distress. Painless inspiration. Breath sounds normal. No wheezes/rales/rhonchi noted. Chest nontender. No accessory muscle usage noted or decreased air movement noted. Abdomen: Soft and nontender. Bowel sounds normal in all 4 quadrants. No distention noted. No organomegaly noted. No visible injury noted. Back: No CVA tenderness. Full range of motion noted. Skin: Bilateral forearm redness, hotness, tenderness. Extremities: No lower extremity edema. Extremities exhibit normal range of motion. Extremities nontender. Neuro: Oriented X 3. Cranial nerve exam: II-XII are grossly intact No motor deficit. No sensory deficit. Reflexes normal. Course Course Course Narrative: RME- 20PM - 32yoM with a PMHx of Diabetes, IV poly substance abuse presenting to the ER with complaints of fevers, chills, multiple abscesses, chest pain over the past few days worse today. Reports ?I think I have sepsis?. Last used this morning cocaine via IV. Patient reports he is interested in detox. Plan: Labs, EKG, chest x-ray. Patient sent back to the waiting room to be evaluated in the ED. Reevaluation(s) Reevaluation #1: 32-year-old male with history of IV drug abuse, history of MRSA and cellulitis came in after shooting IV drugs in both arms with cellulitic change on both arms, patient initially do not meet criteria for SIRS only leukocytosis while patient in the emergency department he dropped his blood pressure with normal lactic acid The case discussed with Dr. Scherer to admit to ICU overnight. patient received 2496 ml of NS and still hypotensive will start Levophed. Patient had a very difficult IV access right femoral central line was placed. Time: 02:03 Medications Administered Discontinued Medications Generic Name Dose Route Start Last Admin Trade Name Delfin PRN Reason Stop Dose Admin Sodium Chloride 2,496 mls @ 2,496 mls/hr 02/13/23 22:46 02/13/23 23:12 Ns 30 ml/kg infuse over 1 hr (2496 ml) 02/13/23 23:45 2,496 mls/hr IV Administration .Q1H STA Piperacillin Sod/Tazobactam 50 mls @ 100 mls/hr 02/13/23 22:46 02/14/23 00:00 Sod 3.375 gm/ Sodium Chloride IV 02/13/23 23:15 Infused ONCE ONE Infusion Vancomycin HCl 2,000 mg in 500 mls @ 250 mls/hr 02/13/23 23:00 02/14/23 00:19 Vancomycin/Ns IV 02/14/23 00:59 250 mls/hr ONCE ONE Administration Procedures Central Line Placement Right Femoral: Time Out Performed: Yes Patient Placed on Monitor/Pulse Ox: Yes MD Prep: mask, gown and gloves Central Line Prep: Povidone-Iodine 1% and Chlorhexidine scrub Local Anesthetic: lidocaine 1% Amount of anesthesia used (mL): 2 Ultrasound Used for Placement: Yes Central Line Lumen Inserted: triple Post Procedure: sutured in place, good blood return, all ports aspirated, flushed, capped and sterile dressing applied Patient Tolerated Procedure: no complications Medical Decision Making Differential Diagnosis Differential Diagnoses: The differential diagnosis associated with the presentation includes (Cellulitis, septic shock, severe sepsis, electrolyte abnormalities, severe anemia.) Admission/Observation Consideration of admission/observation: Escalation of care including admission/observation considered Consult Healthcare Provider Management of the patient was discussed with: Branch Library Clerk (Dr. Scherer) Lab Data MDM Lab Attestation statement: I reviewed the patient's lab results. 02/13/23 19:55 02/13/23 19:55 Labs: Lab Results 02/13/23 02/13/23 02/13/23 Range/Units 19:55 19:55 19:55 WBC 12.0 H (4.8-10.8) X10*3/uL RBC 5.83 H D (4.60-5.80) X10*6/uL Hgb 12.1 L D (14.0-18.0) g/dl Hct 39.5 L (42.0-52.0) % MCV 67.8 L (80.0-98.0) fL MCH 20.8 L (27.0-33.0) pg MCHC 30.6 L (31.0-36.0) g/dl RDW 16.8 H (11.0-16.0) % Plt Count 383 (160-400) X10*3/uL MPV 9.1 L (9.4-12.4) fL Immature Gran % (Auto) 0.2 (0.0-0.4) % Neut % (Auto) 78.2 H (45-73) % Lymph % (Auto) 16.6 L (20-40) % Baxter % (Auto) 4.7 (2-11) % Eos % (Auto) 0.1 (0-4) % Baso % (Auto) 0.2 (0-2) % Lymph # (Auto) 2.0 (1.2-4.9) X10*3/uL Baxter # (Auto) 0.6 (0.1-1.2) X10*3/uL Eos # (Auto) 0.0 (0.0-0.4) X10*3/uL Baso # (Auto) 0.0 (0.0-0.2) X10*3/uL Abs Immat Gran (auto) 0.03 (0.00-0.03) X10*3/uL Absolute Neuts (auto) 9.4 H (2.0-8.3) x10*3/uL Absolute Nucleated RBC 0.000 (0.0-0.012) X10*3/uL Nucleated RBC % (auto) 0.0 (0.0-0.2) /100WBC PT 12.7 (10.0-13.1) SEC INR 1.1 (0.9-1.1) Sodium 138 (135-145) mmol/L Potassium 4.3 (3.3-5.1) mmol/L Chloride 100 (96-108) mmol/L Carbon Dioxide 30 H (22-29) mmol/L Anion Gap 12 (12-20) BUN 16 (9-16) mg/dL Creatinine 0.99 (0.5-1.4) mg/dL Estim Creat Clear Calc 107.1 Estimated GFR > 60 Random Glucose 98 (60-115) mg/dL Lactic Acid (0.5-2.0) mmol/L Calcium 10.4 H D (8.4-10.2) mg/dL Magnesium 2.0 (1.6-2.6) mg/dL Total Bilirubin 0.3 (0.0-1.0) mg/dL AST 16 (5-37) U/L ALT 16 (0-40) U/L Alkaline Phosphatase 86 (39-117) U/L Total Creatine Kinase 65 (38-174) U/L Troponin I High Sens (<3.5-35.0) ng/L Total Protein 8.1 H (6.5-8.0) g/dL Albumin 4.2 (3.5-5.0) g/dL Influenza Type A (PCR) (Negative) Influenza Type B (PCR) (Negative) RSV RNA Qual (PCR) (Negative) SARS-CoV-2 RNA (RT-PCR) (Negative) 02/13/23 02/13/23 02/13/23 Range/Units 19:55 19:57 23:03 WBC (4.8-10.8) X10*3/uL RBC (4.60-5.80) X10*6/uL Hgb (14.0-18.0) g/dl Hct (42.0-52.0) % MCV (80.0-98.0) fL MCH (27.0-33.0) pg MCHC (31.0-36.0) g/dl RDW (11.0-16.0) % Plt Count (160-400) X10*3/uL MPV (9.4-12.4) fL Immature Gran % (Auto) (0.0-0.4) % Neut % (Auto) (45-73) % Lymph % (Auto) (20-40) % Baxter % (Auto) (2-11) % Eos % (Auto) (0-4) % Baso % (Auto) (0-2) % Lymph # (Auto) (1.2-4.9) X10*3/uL Baxter # (Auto) (0.1-1.2) X10*3/uL Eos # (Auto) (0.0-0.4) X10*3/uL Baso # (Auto) (0.0-0.2) X10*3/uL Abs Immat Gran (auto) (0.00-0.03) X10*3/uL Absolute Neuts (auto) (2.0-8.3) x10*3/uL Absolute Nucleated RBC (0.0-0.012) X10*3/uL Nucleated RBC % (auto) (0.0-0.2) /100WBC PT (10.0-13.1) SEC INR (0.9-1.1) Sodium (135-145) mmol/L Potassium (3.3-5.1) mmol/L Chloride (96-108) mmol/L Carbon Dioxide (22-29) mmol/L Anion Gap (12-20) BUN (9-16) mg/dL Creatinine (0.5-1.4) mg/dL Estim Creat Clear Calc Estimated GFR Random Glucose (60-115) mg/dL Lactic Acid 1.1 (0.5-2.0) mmol/L Calcium (8.4-10.2) mg/dL Magnesium (1.6-2.6) mg/dL Total Bilirubin (0.0-1.0) mg/dL AST (5-37) U/L ALT (0-40) U/L Alkaline Phosphatase (39-117) U/L Total Creatine Kinase (38-174) U/L Troponin I High Sens < 2.7 (<3.5-35.0) ng/L Total Protein (6.5-8.0) g/dL Albumin (3.5-5.0) g/dL Influenza Type A (PCR) NEGATIVE (Negative) Influenza Type B (PCR) NEGATIVE (Negative) RSV RNA Qual (PCR) NEGATIVE (Negative) SARS-CoV-2 RNA (RT-PCR) NEGATIVE (Negative) Independent Interpretation I performed an independent interpretation of an: Plain X-Ray (Chest: No acute intrathoracic pathology) Radiology Impression Discussion of test interpretation with radiology: I have reviewed the radiologist's reading. Critical Care Time Critical Care Time Critical Care Time: Yes Total Critical Care Time: 60 Attestation: I spent 60 minutes providing critical care service to the patient, this including time spent at the bedside to evaluate the patient, reassess the patient, monitoring vital signs, review labs, and radiographic studies, counseling the patient/family, discussing the case with consultants, disposition the patient. Discharge Plan Discharge Clinical Impression: Cellulitis of arm, Acute hypotension Patient Disposition: Admitted As Inpatient
[2023-02-13 20:01] LABS: MANUAL DIFF FLAG NO
[2023-02-13 20:03] LABS: Basophils Percent Auto 0.2 % (0-2); Eosinophils Percent Auto 0.1 % (0-4); Hematocrit 39.5 % (42.0-52.0); Hemoglobin 12.1 g/dl (14.0-18.0); Imm Gran Abs Auto 0.03 X10*3/uL (0.00-0.03); Imm Gran Pct Auto 0.2 % (0.0-0.4); Lymphocytes Percent Auto 16.6 % (20-40); Mean Corpuscular HGB Conc 30.6 g/dl (31.0-36.0); Mean Corpuscular Hemoglobin 20.8 pg (27.0-33.0); Mean Corpuscular Volume 67.8 fL (80.0-98.0); Mean Platelet Volume 9.1 fL (9.4-12.4); Monocytes Absolute Auto 0.6 X10*3/uL (0.1-1.2); Monocytes Percent Auto 4.7 % (2-11); Neutrophils Absolute Auto 9.4 x10*3/uL (2.0-8.3); Neutrophils Percent Auto 78.2 % (45-73); Platelet Count 383 X10*3/uL (160-400); Red Blood Count 5.83 X10*6/uL (4.60-5.80); Red Cell Distribution Width 16.8 % (11.0-16.0)
[2023-02-13 20:11] LABS: INTERNATIONAL NORM RATIO 1.1 (0.9-1.1); Prothrombin Time 12.7 SEC (10.0-13.1)
[2023-02-13 20:47] LABS: Alanine Aminotransferase 16 U/L (0-40); Albumin Level 4.2 g/dL (3.5-5.0); Alkaline Phosphatase 86 U/L (39-117); Anion Gap 12 (12-20); Aspartate Amino Transferase 16 U/L (5-37); Bilirubin Total 0.3 mg/dL (0.0-1.0); Blood Urea Nitrogen 16 mg/dL (9-16); Calcium 10.4 mg/dL (8.4-10.2); Carbon Dioxide 30 mmol/L (22-29); Chloride 100 mmol/L (96-108); Creatinine Clr Calc Pharmacy 107.1; Estimated Glomerular Filt Rate > 60; Glucose Random 98 mg/dL (60-115); Potassium 4.3 mmol/L (3.3-5.1); Sodium 138 mmol/L (135-145); Total Protein 8.1 g/dL (6.5-8.0)
[2023-02-13 20:56] LABS: Troponin-I High Sensitivity < 2.7 ng/L (<3.5-35.0)
[2023-02-13 20:56] LABS: Influenza A PCR NEGATIVE (Negative); Influenza B PCR NEGATIVE (Negative); Resp Syncy Virus RNA Qual PCR NEGATIVE (Negative); SARS COV2 PCR INHOUSE NEGATIVE (Negative)
[2023-02-13 22:04] VITALS: BP 87/41; PULSE 60; RESP 14; O2SAT 95
--- NOTE | 2023-02-13 22:04 | PC.NURSE ---
pt brought into ED room 18 from waiting room. labs, ekg, cxray done. pt appears very lethargic and sleepy states he is an iv drug user. vital signs updated. BP 87/41, pt states his BP is usually low. will alert MD Sandoval. call leung within reach will ctm
--- NOTE | 2023-02-13 22:47 | PC.NURSE ---
#22g iv line placed in LFA. pt very difficult stick d/t iv drug use. 1000ml normal saline fluids started. MD Christianson at bedside assessing pt. ordering blood cultures and a lactic acid
[2023-02-13] MEDS: Piperacillin Sodium/Tazobactam 3.375 GM in 0.9 % Sodium Chloride 50 ML IV (23:12)
[2023-02-13 23:14] VITALS: BP 91/49
[2023-02-13 23:23] LABS: Lactic Acid 1.1 mmol/L (0.5-2.0)
[2023-02-14] VITALS (24 sets, daily range): BP systolic 82–125; BP diastolic 44–79; PULSE 37–60; RESP 11–22; TEMP 36.1–37; O2SAT 96–100; BMI 27.1
[2023-02-14] MEDS: vancomycin/NS 2,000 MG/500 ML PLAST..BAG 250 MG IV (00:19)
--- NOTE | 2023-02-14 00:28 | PC.NURSE ---
iv fluid bolus still infusing . pt has #22g iv line - patent and flushes well but taking some time to infuse. iv zosyn complete. iv vancomycin started. pt still extremely lethargic and sleepy but responds to verbal and physical stimuli
--- NOTE | 2023-02-14 01:08 | PC.NURSE ---
MD Christianson in room attempting ultra sound guided iv so that pt has second iv line to infuse fluids more quickly. 1 liter normal saline complete thus far
--- NOTE | 2023-02-14 02:04 | PC.NURSE ---
16cm central line placed in femoral artery by MD Christianson. patent and flushing well with good blood return. iv fluids and vanomycin now running through central line. pt tolerated well.
[2023-02-14] MEDS: Ibuprofen 600 MG TABLET PO ×2 (02:10→16:42)
[2023-02-14] MEDS: Norepinephrine Bitartrate/D5W 8 MG/250 ML PLAST..BAG 7.8 MG IV (03:06)
--- NOTE | 2023-02-14 03:20 | P.HPCC_ITS ---
History of Present Illness Date of Service: 02/14/23 Attending physician on admission: Tessy Scherer Chief Complaint: Cellulitis, hypotension. Mr. oMnk is a 32-year-old male with a history of anxiety, depression, diabetes, asthma, IVDU on methadone who presented to the ER with complaints of fevers, chills, multiple abscesses, and chest pain over the last few days. The patient reported that he thought he had sepsis. He last used cocaine via IV yesterday morning. The patient was admitted for bilateral arm cellulitis with MRSA in November.??? On arrival to the emergency room, the patient's blood pressure 93/53, heart rate 76, temp 98.2, O2 sat 98% on room air. Laboratory data significant for a WBC 12.0,? lactic acid 1.1. ? Her ABG showed pH of 7.49, pCO2 33, PO2 77, HC03 25.? Chest x-ray was unremarkable. ED COURSE:? patient received 2500 mL normal saline per sepsis protocol, Zosyn 3.375 g, vanco 2 g.? He remained? hypotensive despite fluid administration and was started on levophed.? Review of Systems Constitutional: Constitutional: Reports as per HPI and Reports weight loss (Pt reports losing about 60lbs in the last few months) ENT: Reports dental pain (Right upper rear molar) Psychiatric: Psychiatric: Reports abnormal sleep pattern, Reports anxiety and Reports depression PMFSH Past Medical History Medical History Anxiety Asthma Cocaine use with cocaine-induced disorder Depression Depression Diabetes Diabetes IVDU (intravenous drug user) Major depressive disorder, recurrent severe without psychotic features Opiate dependence, continuous Suicidal ideation Functional capacity: independent ambulation Family History Family History Father Heart disease Social History Social History Household Members: Family Household Members Other:: Mother and brother Housing: Apartment Do you presently have visiting nurse or other home services: No Alcohol intake: unknown Patient Tobacco Use Status: Current everyday Tobacco user Tobacco use type: Cigarette Cigarette Packs Per Day: 1 Cigarettes Per Day: 18 Years Smoked: 15 e-Cigarette/Vaping Use: Currently Using Second Hand Smoke Exposure: Yes Substance Use Type: Crack/Cocaine Advance Directives Date on File: 01/30/21 service: No Current occupational status: unemployed Sexual orientation: Straight/Heterosexual Meds Allergies Allergy/AdvReac Type Severity Reaction Status Date / Time Pertussis Vaccines Allergy Mild HIVES Verified 02/13/23 19:58 [PERTUSSIS VACCINES] Active Medications: Current Medications Enoxaparin Sodium (Enoxaparin Sodium 40 Mg/0.4 Ml Syringe) 40 mg SUBCUT Q12H SUKHDEEP Norepinephrine Bitartrate (Levophed) 8 mg in 250 mls @ 0 mls/hr IV .Q0M SUKHDEEP; Protocol Last Admin: 02/14/23 03:06 Dose: 0.05 mcg/kg/min, 7.8 mls/hr Home Medications Medication Instructions Recorded Confirmed Last Taken Type clonazepam 1 mg tablet 1 tab PO TID 01/30/21 12/06/22 12/05/22 History fluoxetine 40 mg capsule 1 cap PO DAILY 01/30/21 12/06/22 12/05/22 History gabapentin 300 mg capsule 1 cap PO BEDTIME 01/30/21 12/06/22 2 Days Ago History ~02/20/22 gabapentin 600 mg tablet 1 tab PO TID 01/30/21 12/06/22 2 Days Ago History ~02/20/22 methadone 10 mg/mL oral 135 mg PO DAILY 01/30/21 12/06/22 12/05/22 History concentrate (Methadone Intensol) albuterol sulfate 90 mcg/actuation 2 puff inhalation QID PRN wheezing 02/22/22 12/06/22 Unknown History aerosol inhaler (ProAir HFA) quetiapine 200 mg tablet 200 mg PO BEDTIME 12/06/22 12/06/22 Unknown History Physical Exam Vital Signs: Vital Signs: Last Vital Signs Temp 98.2 F 02/13/23 19:58 Pulse 54 02/14/23 03:06 Resp 12 02/14/23 02:12 BP 89/47 L 02/14/23 03:06 Pulse Ox 100 02/14/23 02:12 O2 Del Method Room Air 02/14/23 02:12 BMI result Body Mass Index 27.1 Const: General: alert, awake and ill appearing (pale); No acute distress Nutritional Appearance: average body habitus Orientation/consciousness: patient oriented x3 Limitations: no limitations HEENT: Head: Yes normocephalic and Yes atraumatic General nose exam: Normal external nose present (Nares patent, septum midline, sinuses nontender bilaterally.) Mouth: Normal oral and palatal mucosa present (No thrush, tongue in midline, mucosa moist.) Teeth and gingiva: abnormal tooth and associated gingiva (upper right molar cracked) Throat: Yes other (No erythema, no exudate.) Eyes: Pupils: Equal, round and reactive pupils present Neck: Neck: Yes supple (no thyromegaly, trachea midline.) Carotids: normal carotid upstroke Resp: Auscultation: clear to auscultation bilaterally (normal work of breathing, no accessory muscle use), no crackles, no rales and no rhonchi Cardio: Jugular venous distension: no JVD Rate: bradycardic Rhythm: regular rhythm Heart sounds: no gallops, no murmurs and no rubs Peripheral pulses: Peripheral pulses 2+ throughout GI: Palpation (GI): Soft to palpation (nondistended.) and nontender Skin: General skin exam: erythema (Bilateral forearms tender, red, hot. Multiple scabs, track ratliff) Neuro: General: patient oriented x3 Cranial nerves: Yes CN's II-XII intact bilaterally and Yes Equal, round and reactive pupils present Cognition (Neuro): normal cognition Extrem: General: Yes full ROM, Yes capillary refill normal and Yes no clubbing, cyanosis or edema Psych: Affect: normal affect Attitude: cooperative Results Labs 02/13/23 19:55 02/13/23 19:55 Labs: Laboratory Results - last 24 hr 02/13/23 02/13/23 02/13/23 19:55 19:55 19:55 MCV 67.8 L MCH 20.8 L MCHC 30.6 L RDW 16.8 H Plt Count 383 MPV 9.1 L Immature Gran % (Auto) 0.2 Neut % (Auto) 78.2 H Lymph % (Auto) 16.6 L [place] % (Auto) 4.7 Eos % (Auto) 0.1 Baso % (Auto) 0.2 Lymph # (Auto) 2.0 [place] # (Auto) 0.6 Eos # (Auto) 0.0 Baso # (Auto) 0.0 Abs Immat Gran (auto) 0.03 Absolute Neuts (auto) 9.4 H Absolute Nucleated RBC 0.000 Nucleated RBC % (auto) 0.0 PT 12.7 INR 1.1 Anion Gap 12 Estim Creat Clear Calc 107.1 Estimated GFR > 60 Random Glucose 98 Lactic Acid Calcium 10.4 H D Magnesium 2.0 Total Bilirubin 0.3 AST 16 ALT 16 Alkaline Phosphatase 86 Total Creatine Kinase 65 Troponin I High Sens Total Protein 8.1 H Albumin 4.2 Influenza Type A (PCR) Influenza Type B (PCR) RSV RNA Qual (PCR) SARS-CoV-2 RNA (RT-PCR) 02/13/23 02/13/23 02/13/23 19:55 19:57 23:03 MCV MCH MCHC RDW Plt Count MPV Immature Gran % (Auto) Neut % (Auto) Lymph % (Auto) [place] % (Auto) Eos % (Auto) Baso % (Auto) Lymph # (Auto) [place] # (Auto) Eos # (Auto) Baso # (Auto) Abs Immat Gran (auto) Absolute Neuts (auto) Absolute Nucleated RBC Nucleated RBC % (auto) PT INR Anion Gap Estim Creat Clear Calc Estimated GFR Random Glucose Lactic Acid 1.1 Calcium Magnesium Total Bilirubin AST ALT Alkaline Phosphatase Total Creatine Kinase Troponin I High Sens < 2.7 Total Protein Albumin Influenza Type A (PCR) NEGATIVE Influenza Type B (PCR) NEGATIVE RSV RNA Qual (PCR) NEGATIVE SARS-CoV-2 RNA (RT-PCR) NEGATIVE ECG Attestation: I personally reviewed and interpreted this ECG as follows: (Normal Sinus Rhythm. HR 73. No significant change when compared to ECG 05 Dec 2022.) Imaging Radiologist's Impressions: Impressions Chest X-Ray 02/13/23 20:10 IMPRESSION: Unremarkable examination. Assessment and Plan (1) Acute hypotension: Status: Acute (2) MRSA bacteremia: Status: Acute (3) Cellulitis of arm: Status: Acute (4) Opiate dependence, continuous: Status: Acute (5) Opioid use disorder: Status: Acute (6) Major depressive disorder, recurrent severe without psychotic features: Status: Acute Plan Assessment: 32-year-old male with a history of anxiety, depression, diabetes, asthma, IVDU on methadone with complaints of fevers, chills, multiple abscesses, and chest pain admitted with cellulitis and hypotension requiring pressor support.? Neuro:? No acute issues. Cardiac: Sepsis likely due to cellulitis/abscesses from IVDU. Patient has hypotension requiring pressor support. White count is slightly elevated at 12.0. Lactic 1.1.? Pulmonary: No acute issues. Renal:? No acute issues. Endo: No acute issues.Underlying diabetes mellitus.? GI:? No acute issues. ID:? Evidence of sepsis. Volume resuscitated with 30 mL/kg crystalloids in ED.? Zosyn 3.375 mg, Vanco 2 g in ED.? Blood cultures pending. Heme/Onc: no acute issues. Psych:? IV drug abuse.? Patient requesting detox.? telephone services sales representative consult placed. Prophylaxis: Lovenox Diet: Diabetic Time Spent With Patient Time: Total time managing care of this patient today ____ minutes.
--- NOTE | 2023-02-14 03:54 | PC.NURSE ---
PT TO ICU AT 0320 FROM ER. A&OX3, FOLLOWS COMMANDS, TREADWELL. IN NO ACUTE DISTRESS. RECEIVED IBUPROFEN IN ER FOR DENTAL PAIN WITH GOOD EFFECT PER PT. BP ON ARRIVAL 82/22 WITH MAP OF 57. LEVOPHED INFUSING AND INCREASED FROM 0.05 MCG/KG/HR TO 0.07 MCG WITH GOOD EFFECT NEXT BP WAS 109/69. TLC INTACT RIGHT FEMORAL SITE. PT STATES HIS BP IS NORMALLY LOW AROUND 90'S OVER 50-60. MONITOR SHOWS SB, RATE 40'S BUT DROPPING TO 38. PT DENIES DIZZINESS AND ABLE TO FOLLOW COMMANDS. PACER PADS AT BEDSIDE. BILAT ARMS RED AND EDEMATOUS WITH MULTIPLE ABCESSES NOTED. PT HAD A SNACK OF PUDDING AND RUSS CRACKERS AND FELL ASLEEP. MOST INFORMATION FOR ADMISSION ASSESSMENT COMPLETED BUT PT ASLEEP BEFORE ALL QUESTIONS WERE ABLE TO BE ADDRESSED.
[2023-02-14] MEDS: Piperacillin Sodium/Tazobactam 3.375 GM in 0.9 % Sodium Chloride 50 ML IV ×3 (06:03→17:21)
[2023-02-14 06:53] LABS: MANUAL DIFF FLAG NO
[2023-02-14 06:55] LABS: VBG HCO3 27 mmol/L (22-26); VBG pCO2 45 mmHg; VBG pH 7.38 (7.32-7.43); VBG pO2 38 mmHg
[2023-02-14 06:59] LABS: Basophils Percent Auto 0.1 % (0-2); Eosinophils Absolute Auto 0.1 X10*3/uL (0.0-0.4); Eosinophils Percent Auto 1.3 % (0-4); Hematocrit 31.7 % (42.0-52.0); Hemoglobin 9.5 g/dl (14.0-18.0); Imm Gran Abs Auto 0.03 X10*3/uL (0.00-0.03); Imm Gran Pct Auto 0.4 % (0.0-0.4); Lymphocytes Absolute Auto 2.2 X10*3/uL (1.2-4.9); Lymphocytes Percent Auto 28.9 % (20-40); Mean Corpuscular Hemoglobin 20.8 pg (27.0-33.0); Mean Corpuscular Volume 69.4 fL (80.0-98.0); Mean Platelet Volume 9.3 fL (9.4-12.4); Monocytes Absolute Auto 0.7 X10*3/uL (0.1-1.2); Monocytes Percent Auto 9.6 % (2-11); Neutrophils Absolute Auto 4.6 x10*3/uL (2.0-8.3); Neutrophils Percent Auto 59.7 % (45-73); Platelet Count 316 X10*3/uL (160-400); Red Blood Count 4.57 X10*6/uL (4.60-5.80); Red Cell Distribution Width 16.9 % (11.0-16.0); White Blood Count 7.6 X10*3/uL (4.8-10.8)
[2023-02-14 07:06] LABS: Venous Blood Gas Refer to POC result
[2023-02-14 07:13] LABS: Anion Gap 10 (12-20); Blood Urea Nitrogen 12 mg/dL (9-16); Calcium 8.8 mg/dL (8.4-10.2); Carbon Dioxide 25 mmol/L (22-29); Chloride 108 mmol/L (96-108); Creatinine Clr Calc Pharmacy 127.7; Estimated Glomerular Filt Rate > 60; Glucose Random 161 mg/dL (60-115); Potassium 3.7 mmol/L (3.3-5.1); Sodium 139 mmol/L (135-145)
[2023-02-14 07:18] LABS: Appearance Urine Clear; Color Urine Yellow; Glucose Urine UA Negative (Negative); Leukocyte Esterase Urine Negative (Negative); Nitrite Urine Negative (Negative); PH 5.5 (5.0-9.0); Specific Gravity - Urine 1.015 (1.005-1.025); Urine Blood Negative (Negative); Urine Ketones Negative (Negative); Urine Protein Negative (Neg-Trace)
[2023-02-14 07:23] LABS: Bacteria Urine None Seen (None Seen); Hyaline Casts Urine 0-2 /LPF (0-2); RBC Urine 0-2 /HPF (0-2); Squamous Epithelial Cell Urine 0-2 /HPF (0-2); WBC Urine 0-5 /HPF (0-5)
[2023-02-14 07:27] LABS: Glucose, Whole Blood 134 mg/dL (60-115)
[2023-02-14 07:27] LABS: Amphetamine Screen Urine Not Detected (Not Detect); Barbiturates, Urine Not Detected (Not Detect); Benzodiazepines Screen Urine POSITIVE (Not Detect); Cannabinoid Screen Urine Not Detected (Not Detect); Cocaine Screen Urine POSITIVE (Not Detect); Fentanyl, urine POSITIVE (Not Detect); Opiate Screen Urine POSITIVE (Not Detect); Phencyclidine Screen Urine Not Detected (Not Detect)
--- NOTE | 2023-02-14 08:26 | PHA.PROG ---
Admission Date/Time: February 14, 2023 02:00 Indication: SKIN/SKIN TISSUE Weight in k.2 kg Adjusted body weight in Kg: [place] body weight in Kg: Obesity Dosing Indication % IBW: Serum Creatinine - Last 168 Hours 02/13/23 02/14/23 19:55 06:45 Creatinine 0.99 0.83 Estimated CrCl and GFR - Last 168 Hours 02/13/23 02/14/23 19:55 06:45 Estim Creat Clear Calc 107.1 127.7 Estimated GFR > 60 > 60 Vancomycin Loading Dose: 2000 MG Current Vancomycin Dosing Regimen: 1500 Q12H Vancomycin Monitoring using AUC goal of 400 - 600 range with trough as surrogate marker: AUC 558, TROUGH 16.2 Date and Time for next Vancomycin Level to be drawn: 02/15 @0900 Pharmacist Comments on Vancomycin Plan: Vancomycin dosing will take advantage of [employer] as a clinical decision support tool that uses Bayesian modeling to calculate individual patient's pharmacokinetic parameters and forecast the patient's drug concentration time course with the target goal AUC 24 range of 400 - 600 mg/L/hr.
--- NOTE | 2023-02-14 08:31 | PHA.MEDREC ---
Pharmacy Consult ? Medication Reconciliation Pharmacy has completed the medication reconciliation. spoke with patient. Confirmed medications. Patient reports taking methadone 135mg at [facility] and last taken yesterday 02/13.
--- NOTE | 2023-02-14 08:53 | HE.PHANOTE ---
re: methadone last dose 135 mg given at [facility] 02/12/23 verified with jason kelley [phone]
[2023-02-14] MEDS: Nicotine 21 MG PATCH.TD24 TRANSDERMA (09:41)
[2023-02-14] MEDS: methADONE HCl 20 MG/2 ML ORAL.CONC 130 MG PO (09:41)
[2023-02-14] MEDS: Enoxaparin Sodium 40 MG/0.4 ML SYRINGE SUBCUT (09:41)
--- NOTE | 2023-02-14 09:54 | MHC.CM.PN ---
Met w/pt to discuss d/c planning needs: pt states he resides w/family, is independent with all care needs, not presently working but states no barriers to care. Pt receives methadone at [facility] and will return for outpt management when d/c'd. Pt will call family for transportation. HCP declined: PCP is Dr. Mahmood. No additional needs identified.
--- NOTE | 2023-02-14 10:33 | MHC.CLN ---
RE: CONSULT PT WITH 15% NON-SIGNIFICANT WT LOSS X 1 YEAR R/T DRUG ABUSE AND CHRONIC POOR PO INTAKE DIET RX: 2000DM-PT REPORTS NONCOMPLIANCE WITH DIABETIC DIET PRIOR TO ADMISSION. PT REQUESTING REGULAR DIET UPON INTERVIEW PT RECEPTIVE TO DRINKING NUTRITION SUPPLEMENT R/T PREVIOUS WT LOSS RECOMMEND ENSURE MAX BID TO PROVIDE 350KCALS, 60G PROTEIN MONITOR PO INTAKE CLOSELY SEE ALSO FULL CLINICAL NUTRITION ASSESSMENT
[2023-02-14] MEDS: vancomycin HCL 1,500 MG in 0.9 % Sodium Chloride 500 ML 333.33 MG IV ×2 (10:34→23:29)
[2023-02-14] MEDS: Albumin Human 25 % 100 ML IV ×2 (10:34→11:47)
--- NOTE | 2023-02-14 10:54 | PC.NURSE ---
Addendum entered by Chayito Dorado RN 02/14/23 13:34: Completed two bottles on Albumin 25g 100cc. BP 84/48 MAP 60 - MD notified, pt asymptomatic - okay to continue transfer to medical floor. Maintain MAP >[address] Allison. Original Note: Levo titrated off - MAP down to 55-60 - MD notified. Albumin 100cc x2 ordered and administering. Levo continued off per MD, goal MAP >60 per MD. HR maintaining 40-50's, down to as low as 22 while asleep. Patient arousable and assymptomatic. MD notified and at bedside. HR back up to 40's, sinus. Pacer pads applied to patient.
[2023-02-14 11:40] LABS: Glucose, Whole Blood 163 mg/dL (60-115)
[2023-02-14 16:15] LABS: Glucose, Whole Blood 102 mg/dL (60-115)
--- NOTE | 2023-02-14 17:06 | PM.EVENT ---
Event Note Date of Service: 02/14/23 Event Note: day hospitalist update 32yo M with polysubstance injection drug use history admitted to ICU briefly for pressor support for septic shock Hx MRSA bacteremia Erythema of bilateral arms suspicious for cellulitis, high risk of bacteremia Downgraded to [facility]. Continue vanc + pip/leobardo. Follow BCx. Addiction Medicine consultation. Time Spent With Patient Time: Total time managing care of this patient today ____ minutes.
[2023-02-14 20:16] LABS: Glucose, Whole Blood 103 mg/dL (60-115)
[2023-02-14] MEDS: Mirtazapine 7.5 MG TABLET PO (20:20)
[2023-02-14] MEDS: Gabapentin 300 MG CAPSULE PO ×2 (20:20→21:10)
[2023-02-14] MEDS: clonazePAM 1 MG TABLET PO (21:10)
[2023-02-15] VITALS (7 sets, daily range): BP systolic 100–161; BP diastolic 56–83; PULSE 37–50; RESP 16–20; TEMP 36.1–37.1; O2SAT 98–100; BMI 28.4
[2023-02-15] MEDS: Piperacillin Sodium/Tazobactam 3.375 GM in 0.9 % Sodium Chloride 50 ML IV ×4 (00:40→17:26)
--- NOTE | 2023-02-15 00:47 | PC.NURSE ---
Pt HR went as low as 37bpm. Sinus braday. No other issues. BP is normotensive. MD notified.
[2023-02-15] MEDS: Ibuprofen 600 MG TABLET PO ×3 (01:58→22:39)
[2023-02-15 07:43] LABS: Glucose, Whole Blood 74 mg/dL (60-115)
[2023-02-15 09:09] LABS: MANUAL DIFF FLAG NO
[2023-02-15 09:12] LABS: Basophils Percent Auto 0.3 % (0-2); Eosinophils Absolute Auto 0.2 X10*3/uL (0.0-0.4); Eosinophils Percent Auto 2.4 % (0-4); Hematocrit 36.8 % (42.0-52.0); Hemoglobin 10.7 g/dl (14.0-18.0); Imm Gran Abs Auto 0.02 X10*3/uL (0.00-0.03); Imm Gran Pct Auto 0.3 % (0.0-0.4); Lymphocytes Absolute Auto 2.5 X10*3/uL (1.2-4.9); Lymphocytes Percent Auto 35.3 % (20-40); Mean Corpuscular HGB Conc 29.1 g/dl (31.0-36.0); Mean Corpuscular Hemoglobin 21.1 pg (27.0-33.0); Mean Corpuscular Volume 72.4 fL (80.0-98.0); Mean Platelet Volume 10.1 fL (9.4-12.4); Monocytes Absolute Auto 0.5 X10*3/uL (0.1-1.2); Monocytes Percent Auto 7.3 % (2-11); Neutrophils Absolute Auto 3.8 x10*3/uL (2.0-8.3); Neutrophils Percent Auto 54.4 % (45-73); Platelet Count 251 X10*3/uL (160-400); Red Blood Count 5.08 X10*6/uL (4.60-5.80); Red Cell Distribution Width 17.2 % (11.0-16.0)
[2023-02-15 09:26] LABS: Vancomycin Random 14.5 mcg/mL (15-20)
[2023-02-15 09:34] LABS: Albumin Level 3.3 g/dL (3.5-5.0); Anion Gap 14 (12-20); Blood Urea Nitrogen 10 mg/dL (9-16); Calcium 9.1 mg/dL (8.4-10.2); Carbon Dioxide 20 mmol/L (22-29); Chloride 111 mmol/L (96-108); Creatinine Clr Calc Pharmacy 165.6; Estimated Glomerular Filt Rate > 60; Glucose Random 69 mg/dL (60-115); Magnesium 2.3 mg/dL (1.6-2.6); Phosphorus 3.1 mg/dL (2.7-4.5); Potassium 4.6 mmol/L (3.3-5.1); Sodium 140 mmol/L (135-145)
--- NOTE | 2023-02-15 09:38 | HE.PHANOTE ---
Vancomycin Level 14.5 today. Renal function is stable. Continue current regimen. next level 02/16 @ 2100. Sg GarciaD
[2023-02-15] MEDS: Nicotine 21 MG PATCH.TD24 TRANSDERMA (09:41)
[2023-02-15] MEDS: methADONE HCl 20 MG/2 ML ORAL.CONC 130 MG PO (09:42)
[2023-02-15] MEDS: vancomycin HCL 1,500 MG in 0.9 % Sodium Chloride 500 ML 333.33 MG IV ×2 (09:42→22:39)
[2023-02-15] MEDS: FLUoxetine HCl 20 MG CAPSULE 40 MG PO (09:43)
[2023-02-15] MEDS: buPROPion HCl XL 150 MG TAB.ER.24H PO (09:43)
[2023-02-15 09:53] LABS: HBS Num1 14.02 mIU/mL (0-7.99); HBc Num1 0.07 S/CO (0.00-0.79); HBsAGNum1 0.41 S/CO (0.00-0.99); HIV AB/AG Nonreactive (Nonreactive); HIV Num 1 0.05 S/CO (0.00-0.99); Hepatitis B Core Antibody Nonreactive (Nonreactive); Hepatitis B Surface Antigen Negative (Negative); ~Hepatitis B Surface Antibody REACTIVE (Nonreactive)
--- NOTE | 2023-02-15 10:11 | HO.PM.IMPN ---
Subjective Subjective Date of Service: 02/15/23 Interval History: anxious no fever BP improved redness of arms improved Review of Systems Review of Systems: Yes all other systems are reviewed and are negative Physical Exam Vital Signs: Vital Signs: Last Vital Signs Temp 97.0 F 02/15/23 07:05 Pulse 40 L 02/15/23 07:05 Resp 20 02/15/23 07:05 BP 104/56 L 02/15/23 07:05 Pulse Ox 100 02/15/23 07:05 O2 Del Method Room Air 02/15/23 07:05 BMI result Body Mass Index 28.4 Gen: in no acute distress HEENT: sclera anicteric, moist mucus membranes Neck: supple Lungs: clear to auscultation bilaterally Heart: regular rate and rhythm, no murmurs Abd: soft, non-tender, non-distended Ext: no edema Skin: extensive scars/scabs on bilateral forearms with erythema improved from yesterday, no purulent discharge Neuro: alert and oriented x3, no focal findings Psych: appropriate affect Objective Data Active Medications Albuterol Sulfate (Albuterol Sulfate 90 Mcg 8 Gm Inhaler) 2 puff INHALE QID PRN PRN Reason: wheezing Bupropion HCl (Bupropion Hcl Xl 150 Mg Tab.Er.24h) 150 mg PO DAILY [facility] Last Admin: 02/15/23 09:43 Dose: 150 mg Documented By: PANTERA Clonazepam (Clonazepam 1 Mg Tablet) 1 mg PO TID [facility] Fluoxetine HCl (Fluoxetine Hcl 20 Mg Capsule) 40 mg PO DAILY [facility] Last Admin: 02/15/23 09:43 Dose: 40 mg Documented By: PANTERA Gabapentin (Gabapentin 300 Mg Capsule) 300 mg PO BEDTIME [facility] Last Admin: 02/14/23 20:20 Dose: 300 mg Documented By: JANICE Gabapentin (Gabapentin 600 Mg Tablet) 600 mg PO TID [facility] Heparin Sodium (Porcine) (Heparin Sodium,Porcine 5,000 Unit/Ml Vial) 5,000 unit SUBCUT Q8H [facility] Last Admin: 02/15/23 05:20 Dose: Not Given Documented By: JANICE Non-Admin Reason: Patient Refused Piperacillin Sod/Tazobactam (Sod 3.375 gm/ Sodium Chloride) 50 mls @ 100 mls/hr IV Q6H [facility] Last Infusion: 02/15/23 06:27 Dose: 0 mls/hr Documented By: JANICE Vancomycin HCl 1,500 mg/ (Sodium Chloride) 500 mls @ 333.333 mls/hr IV Q12H [facility] Last Admin: 02/15/23 09:42 Dose: 333.33 mls/hr Documented By: PANTERA Ibuprofen (Ibuprofen 600 Mg Tablet) 600 mg PO Q8H PRN PRN Reason: toothake Last Admin: 02/15/23 01:58 Dose: 600 mg Documented By: JANICE Methadone HCl (Methadone Hcl 20 Mg/2 Ml Oral.Conc) 130 mg PO DAILY [facility] Last Admin: 02/15/23 09:42 Dose: 130 mg Documented By: PANTERA Mirtazapine (Mirtazapine 7.5 Mg Tablet) 7.5 mg PO BEDTIME [facility] Last Admin: 02/14/23 20:20 Dose: 7.5 mg Documented By: JANICE Nicotine (Nicotine 21 Mg Patch.Td24) 21 mg TRANSDERMA DAILY [facility] Last Admin: 02/15/23 09:41 Dose: 21 mg Documented By: PANTERA Nicotine Polacrilex (Nicotine Polacrilex 2 Mg Gum) 2 mg BUCCAL Q2H PRN PRN Reason: Nicotine Cravings Pharmacy Consult (Consult Rx Vancomycin Dosing) 1 each MISCELLANE DAILY PRN PRN Reason: Consult order Labs 02/15/23 08:13 02/15/23 08:13 Labs: Laboratory Results - last 24 hr 02/14/23 02/14/23 02/14/23 11:37 16:07 20:11 MCV MCH MCHC RDW Plt Count MPV Immature Gran % (Auto) Neut % (Auto) Lymph % (Auto) [place] % (Auto) Eos % (Auto) Baso % (Auto) Lymph # (Auto) [place] # (Auto) Eos # (Auto) Baso # (Auto) Abs Immat Gran (auto) Absolute Neuts (auto) Absolute Nucleated RBC Nucleated RBC % (auto) Anion Gap Estim Creat Clear Calc Estimated GFR POC Glucose 163 H 102 103 Random Glucose Calcium Phosphorus Magnesium Albumin Random Vancomycin Hep Bs Antigen Hep Bs Antibody Hep B Core Total Ab HIV 1&2 Ab/P24 Ag 4thGn 02/15/23 02/15/23 02/15/23 07:35 08:13 08:13 MCV 72.4 L MCH 21.1 L MCHC 29.1 L RDW 17.2 H Plt Count 251 MPV 10.1 Immature Gran % (Auto) 0.3 Neut % (Auto) 54.4 Lymph % (Auto) 35.3 [place] % (Auto) 7.3 Eos % (Auto) 2.4 Baso % (Auto) 0.3 Lymph # (Auto) 2.5 [place] # (Auto) 0.5 Eos # (Auto) 0.2 Baso # (Auto) 0.0 Abs Immat Gran (auto) 0.02 Absolute Neuts (auto) 3.8 Absolute Nucleated RBC 0.000 Nucleated RBC % (auto) 0.0 Anion Gap 14 Estim Creat Clear Calc 165.6 Estimated GFR > 60 POC Glucose 74 Random Glucose 69 Calcium 9.1 Phosphorus 3.1 Magnesium 2.3 Albumin 3.3 L Random Vancomycin Hep Bs Antigen Hep Bs Antibody Hep B Core Total Ab HIV 1&2 Ab/P24 Ag 4thGn 02/15/23 02/15/23 08:13 08:13 MCV MCH MCHC RDW Plt Count MPV Immature Gran % (Auto) Neut % (Auto) Lymph % (Auto) [place] % (Auto) Eos % (Auto) Baso % (Auto) Lymph # (Auto) [place] # (Auto) Eos # (Auto) Baso # (Auto) Abs Immat Gran (auto) Absolute Neuts (auto) Absolute Nucleated RBC Nucleated RBC % (auto) Anion Gap Estim Creat Clear Calc Estimated GFR POC Glucose Random Glucose Calcium Phosphorus Magnesium Albumin Random Vancomycin 14.5 L Hep Bs Antigen Negative Hep Bs Antibody REACTIVE Hep B Core Total Ab Nonreactive HIV 1&2 Ab/P24 Ag 4thGn Nonreactive Microbiology Microbiology Results: Microbiology 02/13/23 23:09 Blood Culture - Preliminary Blood - Venous No growth after 24 hours. 02/13/23 23:03 Blood Culture - Preliminary Blood - Venous No growth after 24 hours. Assessment and Plan (1) Septic shock: Status: Acute Plan d2 32yo M with polysubstance injection drug use history admitted to ICU briefly for pressor support for septic shock Hx MRSA bacteremia Erythema of bilateral arms suspicious for cellulitis, high risk of bacteremia Downgraded to [facility] 02/14 septic shock likely skin source and high risk for MRSA bacteremia due to IDU - hypotension resolved - vanc + pip/leobardo d#2, follow BCx microcytic anemia - check iron studies, FOBT polysubstance abuse - Addiction Medicine consult - methadone, home dose confirmed - HCV Ab negative in November, HBV immune, HIV negative mood disorder - continue clonazepam, gabapentin, fluoxetine, mirtazapine VTE ppx - LMWH dispo - TBD In my clinical judgment, the patient requires continued inpatient hospitalization for the following reasons: IV ABX Time Spent With Patient Time: Total time managing care of this patient today ___35_ minutes. Quality Stroke Does the patient have a stroke diagnosis?: No VTE Prior VTE?: No VTE Risk Level:: Medical - moderate - high VTE Device Contraindication: N/A - Device Ordered VTE Drug Contraindication: N/A - Med Ordered
[2023-02-15] MEDS: clonazePAM 1 MG TABLET PO ×3 (10:32→20:26)
[2023-02-15] MEDS: Enoxaparin Sodium 40 MG/0.4 ML SYRINGE SUBCUT (10:33)
[2023-02-15 11:36] LABS: Glucose, Whole Blood 103 mg/dL (60-115)
--- NOTE | 2023-02-15 14:56 | MHC.RECOVRN ---
Met with pt in 474 after consult placed to Addiction Medicine for OUD, cocaine use. [place] [facility] [place] after presenting to ED with ?sepsis. Pt sitting in bed, awake, alert, easily engages in conversation. Pt reports doing well with opiates, however, is having difficulty abstaining from cocaine use. Pt reports cocaine use, $100 daily, IV, last use prior to admission. Pt is currently receiving methadone through [facility], 135 mg daily. Encouraged pt to discuss medications for stimulant use disorder with provider at [facility]. Pt reports he has a counselor through the [facility] but does not find them helpful and would like to begin outpatient therapy. Pt reports he has a safe place to live and mother is very supportive and happy pt came to the hospital. Discussed other resources and supports, pt declines and would not like to speak to a assistant basketball coach while here. Pt reports he has had a personal development coach in the past and is not currently interested. Pt denies other questions or concerns for t/w. CC referral placed. Plan for pt to follow up with [facility] for further stimulant use disorder support.
[2023-02-15 15:51] LABS: Glucose, Whole Blood 75 mg/dL (60-115)
[2023-02-15] MEDS: Gabapentin 600 MG TABLET PO ×2 (15:53→20:26)
[2023-02-15] MEDS: Mirtazapine 7.5 MG TABLET PO (20:26)
[2023-02-15] MEDS: Gabapentin 300 MG CAPSULE PO (20:26)
[2023-02-15 21:12] LABS: Glucose, Whole Blood 137 mg/dL (60-115)
[2023-02-15 21:46] LABS: OBS Int Ctl Valid YES; OBS1 NEGATIVE (NEGATIVE)
[2023-02-16] MEDS: Piperacillin Sodium/Tazobactam 3.375 GM in 0.9 % Sodium Chloride 50 ML IV ×2 (00:44→05:54)
[2023-02-16 04:00] VITALS: BP 112/69; PULSE 54; RESP 16; TEMP 36.4; O2SAT 98
[2023-02-16 07:24] LABS: Anion Gap 12 (12-20); Blood Urea Nitrogen 12 mg/dL (9-16); Carbon Dioxide 23 mmol/L (22-29); Chloride 111 mmol/L (96-108); Estimated Glomerular Filt Rate > 60; Glucose Random 78 mg/dL (60-115); Iron 23 mcg/dL (45-160); Percent Iron Saturation 10 % (15-50); Potassium 4.1 mmol/L (3.3-5.1); Sodium 142 mmol/L (135-145); Total Iron Binding Capacity 237 mcg/dL (228-428); Unsaturated Iron Binding 214 ug/dL
[2023-02-16 07:47] VITALS: BP 113/70; PULSE 42; RESP 20; TEMP 36.4; O2SAT 97
[2023-02-16 08:08] LABS: Glucose, Whole Blood 84 mg/dL (60-115)
[2023-02-16 08:14] LABS: Hematocrit 31.1 % (42.0-52.0); Hemoglobin 9.5 g/dl (14.0-18.0); Mean Corpuscular HGB Conc 30.5 g/dl (31.0-36.0); Mean Corpuscular Volume 68.7 fL (80.0-98.0); Mean Platelet Volume 10.1 fL (9.4-12.4); Platelet Count 264 X10*3/uL (160-400); Red Blood Count 4.53 X10*6/uL (4.60-5.80); Red Cell Distribution Width 17.2 % (11.0-16.0); White Blood Count 5.7 X10*3/uL (4.8-10.8)
[2023-02-16 08:30] LABS: Ferritin 51 ng/mL (20-250)
--- NOTE | 2023-02-16 09:07 | PM.DS ---
DS: Providers Provider Date of Service: 02/16/23 Date of admission: 02/14/23 02:00 Date of discharge: 02/16/23 Primary care physician: Orlando Mahmood III, MD Consults: 02/14/23 16:15 Addiction Medicine Routine Consulting Provider: Addiction Covering Reason for consultation: oud cocaine DS: Diagnosis Discharge Diagnosis (1) Septic shock: Status: Acute (2) Acute hypotension: Status: Acute (3) Cellulitis of arm: Status: Acute (4) Opiate dependence, continuous: Status: Acute (5) Polysubstance abuse: Status: Acute DS: Summary Hospital Course Hospital Course: from admission H+P by [employer] Philomena Bradford NP, 02/14/23: Mr. Monk is a 32-year-old male with a history of anxiety, depression, diabetes, asthma, IVDU on methadone who presented to the ER with complaints of fevers, chills, multiple abscesses, and chest pain over the last few days. The patient reported that he thought he had sepsis. He last used cocaine via IV yesterday morning. The patient was admitted for bilateral arm cellulitis with MRSA in November.??? On arrival to the emergency room, the patient's blood pressure 93/53, heart rate 76, temp 98.2, O2 sat 98% on room air. Laboratory data significant for a WBC 12.0,? lactic acid 1.1. ? Her ABG showed pH of 7.49, pCO2 33, PO2 77, HC03 25.? Chest x-ray was unremarkable. ED COURSE:? patient received 2500 mL normal saline per sepsis protocol, Zosyn 3.375 g, vanco 2 g.? He remained? hypotensive despite fluid administration and was started on levophed.? This 32yo M with polysubstance injection drug use history was briefly admitted to ICU briefly for pressor support for septic shock. He has a history of MRSA bacteremia and suspicion was high given erythema of bilateral arms, though without any drainable fluid collections. He was quickly weaned off of noreipnephrine and stepped down to the [facility] the same day. He was treated with IV vancomycin and piperacillin-tazobactam. Blood cultures resulted negative at 48 hours. Blood pressure normalized. He met with the Recovery Team and [facility] referral was placed. He was discharged home on 7 days of doxycycline plus amoxicillin-clavulanate to cover cellulitis. He should follow-up with Primary Care in 1 week. Time Spent with Patient Time attestation: Total time managing care of this patient today __35__ minutes. Discharge coordination time: Greater than 30 minutes Quality: Safe Use of Opioids Does Pt have an Active Cancer Diagnosis on the Problem List?: No Quality: Stroke Does the patient have a stroke diagnosis?: No Physical Exam Vital Signs: Vital Signs: Last Vital Signs Temp 97.6 F 02/16/23 07:47 Pulse 42 L 02/16/23 07:47 Resp 20 02/16/23 07:47 BP 113/70 02/16/23 07:47 Pulse Ox 97 02/16/23 07:47 O2 Del Method Room Air 02/16/23 07:47 BMI result Body Mass Index 28.4 Gen: in no acute distress HEENT: sclera anicteric, moist mucus membranes Neck: supple Lungs: clear to auscultation bilaterally Heart: regular rate and rhythm, no murmurs Abd: soft, non-tender, non-distended Ext: no edema Skin: extensive scars/scabs on bilateral forearms with erythema improved from yesterday, no purulent discharge Neuro: alert and oriented x3, no focal findings Psych: appropriate affect DS: Data Data Completed and Pending Completed studies during hospitalization [Text1]: Laboratory Results WBC 5.7 X10*3/uL (4.8-10.8) 02/16/23 07:44 RBC 4.53 X10*6/uL (4.60-5.80) L 02/16/23 07:44 Hgb 9.5 g/dl (14.0-18.0) L 02/16/23 07:44 Hct 31.1 % (42.0-52.0) L 02/16/23 07:44 MCV 68.7 fL (80.0-98.0) L 02/16/23 07:44 MCH 21.0 pg (27.0-33.0) L 02/16/23 07:44 MCHC 30.5 g/dl (31.0-36.0) L 02/16/23 07:44 RDW 17.2 % (11.0-16.0) H 02/16/23 07:44 Plt Count 264 X10*3/uL (160-400) 02/16/23 07:44 MPV 10.1 fL (9.4-12.4) 02/16/23 07:44 Immature Gran % (Auto) 0.3 % (0.0-0.4) 02/15/23 08:13 Neut % (Auto) 54.4 % (45-73) 02/15/23 08:13 Lymph % (Auto) 35.3 % (20-40) 02/15/23 08:13 Cobb % (Auto) 7.3 % (2-11) 02/15/23 08:13 Eos % (Auto) 2.4 % (0-4) 02/15/23 08:13 Baso % (Auto) 0.3 % (0-2) 02/15/23 08:13 Lymph # (Auto) 2.5 X10*3/uL (1.2-4.9) 02/15/23 08:13 Cobb # (Auto) 0.5 X10*3/uL (0.1-1.2) 02/15/23 08:13 Eos # (Auto) 0.2 X10*3/uL (0.0-0.4) 02/15/23 08:13 Baso # (Auto) 0.0 X10*3/uL (0.0-0.2) 02/15/23 08:13 Abs Immat Gran (auto) 0.02 X10*3/uL (0.00-0.03) 02/15/23 08:13 Absolute Neuts (auto) 3.8 x10*3/uL (2.0-8.3) 02/15/23 08:13 Absolute Nucleated RBC 0.000 X10*3/uL (0.0-0.012) 02/16/23 07:44 Nucleated RBC % (auto) 0.0 /100WBC (0.0-0.2) 02/16/23 07:44 PT 12.7 SEC (10.0-13.1) 02/13/23 19:55 INR 1.1 (0.9-1.1) 02/13/23 19:55 VBG pH 7.38 (7.32-7.43) 02/14/23 06:45 VBG pCO2 45 mmHg 02/14/23 06:45 VBG pO2 38 mmHg 02/14/23 06:45 VBG HCO3 27 mmol/L (22-26) H 02/14/23 06:45 VBG O2 Saturation 62.0 % 02/14/23 06:45 VBG Base Excess 2.0 mmol/L 02/14/23 06:45 Sodium 142 mmol/L (135-145) 02/16/23 06:38 Potassium 4.1 mmol/L (3.3-5.1) 02/16/23 06:38 Chloride 111 mmol/L (96-108) H 02/16/23 06:38 Carbon Dioxide 23 mmol/L (22-29) 02/16/23 06:38 Anion Gap 12 (12-20) 02/16/23 06:38 BUN 12 mg/dL (9-16) 02/16/23 06:38 Creatinine 0.72 mg/dL (0.5-1.4) 02/16/23 06:38 Estim Creat Clear Calc 161.0 02/16/23 06:38 Estimated GFR > 60 02/16/23 06:38 POC Glucose 84 mg/dL (60-115) 02/16/23 07:51 Random Glucose 78 mg/dL (60-115) 02/16/23 06:38 Lactic Acid 1.1 mmol/L (0.5-2.0) 02/13/23 23:03 Calcium 9.0 mg/dL (8.4-10.2) 02/16/23 06:38 Phosphorus 3.1 mg/dL (2.7-4.5) 02/15/23 08:13 Magnesium 2.3 mg/dL (1.6-2.6) 02/15/23 08:13 Iron 23 mcg/dL (45-160) L 02/16/23 06:38 TIBC 237 mcg/dL (228-428) 02/16/23 06:38 % Saturation 10 % (15-50) L 02/16/23 06:38 Unsat Iron Binding 214 ug/dL 02/16/23 06:38 Ferritin 51 ng/mL (20-250) 02/16/23 07:44 Total Bilirubin 0.3 mg/dL (0.0-1.0) 02/13/23 19:55 AST 16 U/L (5-37) 02/13/23 19:55 ALT 16 U/L (0-40) 02/13/23 19:55 Alkaline Phosphatase 86 U/L (39-117) 02/13/23 19:55 Total Creatine Kinase 65 U/L (38-174) 02/13/23 19:55 Troponin I High Sens < 2.7 ng/L (<3.5-35.0) 02/13/23 19:55 Total Protein 8.1 g/dL (6.5-8.0) H 02/13/23 19:55 Albumin 3.3 g/dL (3.5-5.0) L 02/15/23 08:13 Urine Color Yellow 02/14/23 07:07 Urine Appearance Clear 02/14/23 07:07 Urine pH 5.5 (5.0-9.0) 02/14/23 07:07 Ur Specific [place] 1.015 (1.005-1.025) 02/14/23 07:07 Urine Protein Negative mg/dL (Neg-Trace) 02/14/23 07:07 Urine Glucose (UA) Negative mg/dL (Negative) 02/14/23 07:07 Urine Ketones Negative mg/dL (Negative) 02/14/23 07:07 Urine Blood Negative (Negative) 02/14/23 07:07 Urine Nitrite Negative (Negative) 02/14/23 07:07 Ur Leukocyte Esterase Negative (Negative) 02/14/23 07:07 Urine RBC 0-2 /HPF (0-2) 02/14/23 07:07 Urine WBC 0-5 /HPF (0-5) 02/14/23 07:07 Ur Squamous Epith Cells 0-2 /HPF (0-2) 02/14/23 07:07 Urine Bacteria None Seen (None Seen) 02/14/23 07:07 Hyaline Casts 0-2 /LPF (0-2) 02/14/23 07:07 Stool Occult Blood NEGATIVE (NEGATIVE) 02/15/23 20:45 Random Vancomycin 14.5 mcg/mL (15-20) L 02/15/23 08:13 Urine Opiates Screen POSITIVE (Not Detect) H 02/14/23 07:07 Urine Fentanyl Screen POSITIVE (Not Detect) H 02/14/23 07:07 Ur Barbiturates Screen Not Detected (Not Detect) 02/14/23 07:07 Ur Phencyclidine Scrn Not Detected (Not Detect) 02/14/23 07:07 Ur Amphetamines Screen Not Detected (Not Detect) 02/14/23 07:07 U Benzodiazepines Scrn POSITIVE (Not Detect) H 02/14/23 07:07 Urine Cocaine Screen POSITIVE (Not Detect) H 02/14/23 07:07 U Marijuana (THC) Screen Not Detected (Not Detect) 02/14/23 07:07 Hep Bs Antigen Negative (Negative) 02/15/23 08:13 Hep Bs Antibody REACTIVE (Nonreactive) 02/15/23 08:13 Hep B Core Total Ab Nonreactive (Nonreactive) 02/15/23 08:13 HIV 1&2 Ab/P24 Ag 4thGn Nonreactive (Nonreactive) 02/15/23 08:13 Influenza Type A (PCR) NEGATIVE (Negative) 02/13/23 19:57 Influenza Type B (PCR) NEGATIVE (Negative) 02/13/23 19:57 RSV RNA Qual (PCR) NEGATIVE (Negative) 02/13/23 19:57 SARS-CoV-2 RNA (RT-PCR) NEGATIVE (Negative) 02/13/23 19:57 Impressions Chest X-Ray 02/13/23 20:10 IMPRESSION: Unremarkable examination. Labs on day of discharge: Microbiology 02/13/23 23:09 Blood - Venous Blood Culture - Preliminary No growth after 48 hours. 02/13/23 23:03 Blood - Venous Blood Culture - Preliminary No growth after 48 hours. Discharge Plan Discharge Anticipated Discharge Date/Time: 02/16/23 11:03 Patient Disposition: Home, Self-Care Discharge Diagnosis: septic shock from cellulitis polysubstance abuse Referrals: Orlando Mahmood III, MD [Primary Care Provider] - 1 Week Discharge Medications: New doxycycline monohydrate 100 mg tablet 100 mg PO BID Qty: 14 0RF amoxicillin-pot clavulanate 875-125 mg tablet 1 tab PO BID Qty: 14 0RF Continued fluoxetine 40 mg capsule 1 cap PO DAILY Hold Instructions: Resume on 07/05/22. gabapentin 600 mg tablet 1 tab PO TID Hold Instructions: Resume on 07/05/22. clonazepam 1 mg tablet 1 tab PO TID Hold Instructions: Resume on 07/05/22. gabapentin 300 mg capsule 1 cap PO BEDTIME Hold Instructions: Resume on 07/05/22. Rx Instructions: takes with 600 mg dose at bedtime methadone [Methadone Intensol] 10 mg/mL Concentrate 135 mg PO DAILY nicotine 21 mg/24 hr Patch 24 Hour 21 mg transdermal DAILY 28 Days Qty: 28 0RF nicotine (polacrilex) 2 mg Gum 2 mg buccal Q2H PRN (Reason: Nicotine Cravings) 30 Days Qty: 100 0RF albuterol sulfate [ProAir HFA] 90 mcg/actuation HFA aerosol inhaler 2 puff inhalation QID PRN (Reason: wheezing) mirtazapine 7.5 mg Tablet 7.5 mg PO BEDTIME Qty: 30 0RF Hold Instructions: Resume on 07/05/22. quetiapine 200 mg Tablet 100 - 200 mg PO BEDTIME PRN (Reason: Sleep) bupropion HCl 150 mg tablet extended release 24 hr 150 mg PO DAILY clonidine HCl 0.1 mg tablet 0.1 mg PO BID-TID Discharge Orders: Discharge Order (Routine); Ordered 02/16/23 Ordered By: Sofia Seymour Diet: Advance to usual diet Activity on Discharge: no drugs Stand Alone Forms: Patient Portal Discharge page Care Plan Goals: recovery from infection Health Concerns: septic shock from cellulitis polysubstance abuse Plan of Treatment: blood pressure normalized no evidence of bacteremia take doxycycline monohydrate 100 mg twice daily PLUS amoxicillin-clavulanate 100 mg twice daily for 7 days avoid substance abuse Please follow up with your primary care doctor within 1 week. Return to the hospital if you experience recurrent or worsening symptoms. Assessment: See Discharge Summary.
[2023-02-16] MEDS: Nicotine 21 MG PATCH.TD24 TRANSDERMA (09:16)
[2023-02-16] MEDS: Enoxaparin Sodium 40 MG/0.4 ML SYRINGE SUBCUT (09:17)
[2023-02-16] MEDS: methADONE HCl 20 MG/2 ML ORAL.CONC 130 MG PO (09:18)
[2023-02-16] MEDS: clonazePAM 1 MG TABLET PO (09:18)
[2023-02-16] MEDS: buPROPion HCl XL 150 MG TAB.ER.24H PO (09:18)
[2023-02-16] MEDS: Gabapentin 600 MG TABLET PO (09:19)
[2023-02-16] MEDS: FLUoxetine HCl 20 MG CAPSULE 40 MG PO (09:19)
[2023-02-16] MEDS: Ibuprofen 600 MG TABLET PO (09:19)
[2023-02-16] MEDS: vancomycin HCL 1,500 MG in 0.9 % Sodium Chloride 500 ML 333.33 MG IV (11:00)
[2023-02-16 11:11] LABS: Glucose, Whole Blood 146 mg/dL (60-115)
[2023-02-16 11:19] VITALS: BP 120/78; PULSE 51; RESP 20; TEMP 36.7; O2SAT 99
--- NOTE | 2023-02-16 11:34 | MHC.CM.PN ---
EMR reviewed and per MD rounds, pt is medically cleared for D/C home, self-care. Pts family to transport.
[2023-02-16 17:00] LABS: A. Phagocytphilium DNA,RT-PCR NOT DETECTED (NOT DETECTED); Babesia Microti DNA, RT-PCR NOT DETECTED (NOT DETECTED); Borrelia Miyamotoi,DNA RT-PCR NOT DETECTED (NOT DETECTED); E.Chaffeensis DNA RT-PCR NOT DETECTED (NOT DETECTED); Lyme(Borrelia ssp)DNA RT-PCR NOT DETECTED (NOT DETECTED)
== END 2023-02-16 11:52 | disposition home or self-care (01) | DRG 720 ==
LOC: HO.ED 02-14 02:00 → HO.EDOVER 02-14 02:08 → HO.ICU 02-14 02:30 → HO.IMC 02-14 13:21
PROVIDERS: Internal Medicine Cardiovascular Disease; Internal Medicine Pulmonary Disease; Physician Assistant Medical; Admitting Provider Nurse Practitioner Family; Emergency Provider Emergency Medicine; PCP Internal Medicine; Visit Provider Family Medicine
DX: A41.9 Sepsis, unspecified organism (principal); R65.21 Severe sepsis with septic shock; F33.2 Major depressive disorder, recurrent severe without psychotic features; F11.20 Opioid dependence, uncomplicated; F41.9 Anxiety disorder, unspecified; F19.10 Other psychoactive substance abuse, uncomplicated; D50.9 Iron deficiency anemia, unspecified; L03.113 Cellulitis of right upper limb; J45.909 Unspecified asthma, uncomplicated; L03.114 Cellulitis of left upper limb; Z20.822 Contact with and (suspected) exposure to COVID-19; Z86.14 Personal history of Methicillin resistant Staphylococcus aureus infection; Z79.899 Other long term (current) drug therapy
CPT/HCPCS: 0241U; 36415; 71046; 80048; 80053; 80202; 80307; 81001; 82040; 82272; 82550; 82728; 82803; 82947; 83540; 83605; 83735; 84100; 84484; 85025; 85027; 85610; 86704; 86706; 87040; 87340; 87389; 87798; 87801; 93005; 99285; J1650; J2543; J3370; J3371; P9047

== ENCOUNTER → 2023-02-13 19:45 | Outpatient (BNV) | payer OTHER, SELFPAY | PROVIDERS: Admitting Provider Nurse Practitioner Family; Emergency Provider Emergency Medicine; PCP Internal Medicine; Visit Provider Internal Medicine Cardiovascular Disease | DX: R07.9 Chest pain, unspecified (principal) | CPT/HCPCS: 93010 ==

== ENCOUNTER → 2023-02-14 02:00 | Outpatient (BNV) | payer OTHER, SELFPAY | PROVIDERS: Admitting Provider Nurse Practitioner Family; Emergency Provider Emergency Medicine; PCP Internal Medicine; Visit Provider Family Medicine | DX: A41.9 Sepsis, unspecified organism (principal); R65.21 Severe sepsis with septic shock; I95.9 Hypotension, unspecified; L03.119 Cellulitis of unspecified part of limb; F11.20 Opioid dependence, uncomplicated; F19.10 Other psychoactive substance abuse, uncomplicated | CPT/HCPCS: 99232; 99239; 99499 ==

== ENCOUNTER 2023-10-12 23:49 | Inpatient (IN) | payer OTHER, SELFPAY ==
--- NOTE | ~2023-10-12 | CT_ITS ---
EXAMINATION: CT FOREARM WITH CONTRAST, LEFT CLINICAL INFORMATION: Soft tissue swelling. COMPARISON: None available. TECHNIQUE: Contiguous axial noncontrast CT scan images of the left forearm obtained after the intravenous administration of 85 mL of Omnipaque 350. Sagittal and coronal reformatted images also obtained. This CT examination was performed using dose optimization techniques as appropriate, variously including the following: *Automated exposure control *Adjustment of mA and/or kV according to patient size (this includes techniques or standardized protocols for targeted exams where dose is matched to indication/reason for exam; i.e. extremities or head) *Use of iterative reconstruction technique DLP: 170 mGy-cm FINDINGS: The bony structures are unremarkable. There is diffuse forearm skin thickening with subcutaneous infiltration. There is an 8 mm hypodensity along the anterior forearm at the level of the mid radius. There is also a 1.5 cm similar collection at the same level. The soft tissues are generally heterogeneous with multiple areas of hypodensity along the lateral forearm. There is a soft tissue defect at the same level along the anterior forearm. The vascular structures are unremarkable. CT/CT forearm LT w IV con IMPRESSION: 1. Diffuse skin thickening and subcutaneous infiltration of the forearm with multiple areas of hypodensity along the anterior and lateral forearm. These could represent abscesses. 2. There is a soft tissue defect along the anterior forearm at the level of the mid radius. 3. No acute osseous abnormality.
[2023-10-13] VITALS (7 sets, daily range): BP systolic 92–130; BP diastolic 51–77; PULSE 58–82; RESP 14–18; TEMP 36.4–37.1; O2SAT 96–99; BMI 27.4
[2023-10-13 00:44] LABS: Hematocrit 30.4 % (42.0-52.0); Mean Corpuscular HGB Conc 29.6 g/dl (31.0-36.0); Mean Corpuscular Hemoglobin 18.2 pg (27.0-33.0); Mean Platelet Volume 9.1 fL (9.4-12.4); Platelet Count 331 X10*3/uL (160-400); Red Blood Count 4.94 X10*6/uL (4.60-5.80); Red Cell Distribution Width 17.8 % (11.0-16.0); White Blood Count 6.3 X10*3/uL (4.8-10.8)
[2023-10-13 00:51] LABS: Mean Corpuscular Volume 61.5 fL (80.0-98.0)
[2023-10-13 00:57] LABS: Lactic Acid 0.9 mmol/L (0.5-2.0)
[2023-10-13 01:01] LABS: Alanine Aminotransferase 18 U/L (0-40); Albumin Level 3.9 g/dL (3.5-5.0); Alkaline Phosphatase 80 U/L (39-117); Anion Gap 13 (12-20); Aspartate Amino Transferase 18 U/L (5-37); Bilirubin Total 0.2 mg/dL (0.0-1.0); Blood Urea Nitrogen 15 mg/dL (9-16); Calcium 9.4 mg/dL (8.4-10.2); Carbon Dioxide 26 mmol/L (22-29); Chloride 106 mmol/L (96-108); Creatinine Clr Calc Pharmacy 154.5; Estimated Glomerular Filt Rate > 60; Glucose Random 91 mg/dL (60-115); Sodium 141 mmol/L (135-145); Total Protein 7.6 g/dL (6.5-8.0)
--- NOTE | 2023-10-13 02:00 | PC.NURSE ---
this rn assumed care of pt from waiting room @ 0120. pt changed into hospital gown. this rn made dr espino aware of status
--- NOTE | 2023-10-13 02:50 | P.HPHOSP_ITS ---
History of Present Illness Date of Service: 10/13/23 Chief Complaint: Arm infection This is a 33-year-old male with pertinent history of mood disorder, IV drug use disorder, polysubstance use disorder presents to the emergency department for concerns of left forearm infection. Patient does have history of MRSA bacteremia. Patient states he has had a chronic wound on the left forearm but continues to inject drugs in the same forearm. He noticed pus drainage from forearm when he was injecting cocaine prior to presentation. Also endorses intermittent fevers or chills. No chest discomfort, palpitations, shortness of breath, abdominal pain, changes in urinary or bowel habits. In the emergency department, imaging concerning for abscesses along the anterior and lateral forearm. Review of Systems 2 Constitutional: Constitutional: Reports chills and Reports fever(s) Cardiovascular: Cardiovascular: Reports no additional cardiovascular complaints Respiratory: Respiratory: Reports no additional respiratory complaints Gastrointestinal: Gastrointestinal: Reports no additional gastrointestinal complaints Genitourinary: Genitourinary: Reports no additional male genitourinary complaints [facility] Medical History MRSA bacteremia Suicidal ideation Depression Diabetes Cocaine use with cocaine-induced disorder Opiate dependence, continuous Major depressive disorder, recurrent severe without psychotic features Depression Anxiety IVDU (intravenous drug user) Diabetes Asthma Family History Father Heart disease Social History Household Members: Family Household Members Other:: Mother and brother Housing: Apartment Do you presently have visiting nurse or other home services: No Alcohol intake: unknown Patient Tobacco Use Status: Current everyday Tobacco user Tobacco use type: Cigarette Cigarette Packs Per Day: 1 Cigarettes Per Day: 18 Years Smoked: 15 Smoked in Last 30 Days: Yes e-Cigarette/Vaping Use: Currently Using Second Hand Smoke Exposure: Yes Use of substances other than those prescribed or required for medical reasons: Yes Substance Use Type: Crack/Cocaine, Heroin and Marijuana Advance Directives: No Advance Directives Information Provided: Yes Advance Directives Date on File: 01/30/21 service: No Current occupational status: unemployed Sexual orientation: Straight/Heterosexual Meds Allergies Allergy/AdvReac Type Severity Reaction Status Date / Time Pertussis Vaccines Allergy Mild HIVES Verified 02/13/23 19:58 [PERTUSSIS VACCINES] Home Medications Medication Instructions Recorded Confirmed Last Taken Type clonazepam 1 mg tablet 1 tab PO TID 01/30/21 02/14/23 12/05/22 History fluoxetine 40 mg capsule 1 cap PO DAILY 01/30/21 02/14/23 12/05/22 History gabapentin 300 mg capsule 1 cap PO BEDTIME 01/30/21 02/14/23 2 Days Ago History ~02/20/22 gabapentin 600 mg tablet 1 tab PO TID 01/30/21 02/14/23 2 Days Ago History ~02/20/22 methadone 10 mg/mL oral 135 mg PO DAILY 01/30/21 02/14/23 02/12/23 History concentrate (Methadone Intensol) albuterol sulfate 90 mcg/actuation 2 puff inhalation QID PRN wheezing 02/22/22 02/14/23 Unknown History aerosol inhaler (ProAir HFA) quetiapine 200 mg tablet 100 - 200 mg PO BEDTIME PRN Sleep 12/06/22 02/14/23 Unknown History bupropion HCl 150 mg 24 hr tablet, 150 mg PO DAILY 02/14/23 02/14/23 Unknown History extended release clonidine HCl 0.1 mg tablet 0.1 mg PO BID-TID 02/14/23 02/14/23 Unknown History Physical Exam 2 Vital Signs and Narrative: Vital Signs: Last Vital Signs Temp 98.2 F 10/13/23 02:00 Pulse 82 10/13/23 02:00 Resp 16 10/13/23 02:00 BP 98/64 10/13/23 02:00 Pulse Ox 98 10/13/23 02:00 O2 Del Method Room Air 10/13/23 02:00 BMI result Body Mass Index 27.4 Middle-aged male lying in bed in no distress Neck supple, no JVD Regular rate and rhythm, S1-S2 heard Regular breath sounds bilaterally, no wheezing or crackles appreciated Abdomen soft nontender, no guarding, no rigidity Patient is awake, alert and oriented to self, place, time and person ; no focal motor deficit Psych: Normal mood No pedal edema Skin: Left forearm with erythema, warmth and tenderness as pictured below Skin: Other: Results Labs 10/13/23 00:37 10/13/23 00:37 Labs: Laboratory Results - last 24 hr 10/13/23 00:37 MCV 61.5 L MCH 18.2 L MCHC 29.6 L RDW 17.8 H Plt Count 331 D MPV 9.1 L Absolute Nucleated RBC 0.000 Nucleated RBC % (auto) 0.0 Anion Gap 13 Estim Creat Clear Calc 154.5 Estimated GFR > 60 Random Glucose 91 Lactic Acid 0.9 Calcium 9.4 Total Bilirubin 0.2 AST 18 ALT 18 Alkaline Phosphatase 80 Total Protein 7.6 Albumin 3.9 Assessment and Plan (1) Cellulitis of arm: Status: Acute Plan This is a 33-year-old male with pertinent history of mood disorder, IV drug use disorder, polysubstance use disorder presents to the emergency department for concerns of left forearm infection. #. Purulent cellulitis of left forearm with abscesses: Will admit patient and initiate empiric IV antibiotics. No sepsis. Does have a history of MRSA bacteremia, blood cultures obtained. Consulting General surgery #. Mood disorder: Continue home mood stabilizers #. Polysubstance use disorder: Monitor for withdrawal. Consulted Addiction Team #. Microcytic anemia: Obtaining iron panel Med rec pending DVT prophylaxis: Lovenox Full code Admit as inpatient and will require two night minimum hospital stay for IV antibiotics (as above), which is not possible in a lesser acute setting. Specialist consult pending Quality Stroke Does the patient have a stroke diagnosis?: No VTE Prior VTE?: No VTE Risk Level:: Medical - moderate - high VTE Device Contraindication: Treatment Not Indicated VTE Drug Contraindication: N/A - Med Ordered
--- NOTE | 2023-10-13 02:55 | ED_ITS ---
HPI - Skin/Abscess/Foreign Bdy General Chief complaint: Skin/Abscess/Foreign Body Stated complaint: Arm infected/Fever Time Seen by Provider: 10/13/23 02:42 Source: patient Mode of arrival: ambulatory Limitations: no limitations History of Present Illness HPI narrative: Patient IVDA user used cocaine and heroin has a chronic wound on the dorsal aspect of left forearm still shooting in the same wound noticed small amount of pus today feel that redness is spreading no fever no chills history of MRSA bacteremia Related Data Home Medications Medication Instructions Recorded Confirmed clonazepam 1 mg tablet 1 tab PO TID 01/30/21 02/14/23 fluoxetine 40 mg capsule 1 cap PO DAILY 01/30/21 02/14/23 gabapentin 300 mg capsule 1 cap PO BEDTIME 01/30/21 02/14/23 gabapentin 600 mg tablet 1 tab PO TID 01/30/21 02/14/23 methadone 10 mg/mL oral 135 mg PO DAILY 01/30/21 02/14/23 concentrate (Methadone Intensol) albuterol sulfate 90 mcg/actuation 2 puff inhalation QID PRN wheezing 02/22/22 02/14/23 aerosol inhaler (ProAir HFA) quetiapine 200 mg tablet 100 - 200 mg PO BEDTIME PRN Sleep 12/06/22 02/14/23 bupropion HCl 150 mg 24 hr tablet, 150 mg PO DAILY 02/14/23 02/14/23 extended release clonidine HCl 0.1 mg tablet 0.1 mg PO BID-TID 02/14/23 02/14/23 Previous Rx's Medication Instructions Recorded mirtazapine 7.5 mg tablet 7.5 mg PO BEDTIME #30 tabs 03/02/22 nicotine (polacrilex) 2 mg gum 2 mg buccal Q2H PRN Nicotine 07/09/22 Cravings 30 days #100 ea nicotine 21 mg/24 hr daily 21 mg transdermal DAILY 28 days 07/09/22 transdermal patch #28 ea amoxicillin 875 mg-potassium 1 tab PO BID #14 tabs 02/16/23 clavulanate 125 mg tablet doxycycline monohydrate 100 mg 100 mg PO BID #14 tabs 02/16/23 tablet Allergies Allergy/AdvReac Type Severity Reaction Status Date / Time Pertussis Vaccines Allergy Mild HIVES Verified 02/13/23 19:58 [PERTUSSIS VACCINES] Review of Systems 2 Review of Systems: Yes all other systems are reviewed and are negative REPLACED BY [facility] Past Medical History Medical History MRSA bacteremia Suicidal ideation Depression Diabetes Cocaine use with cocaine-induced disorder Opiate dependence, continuous Major depressive disorder, recurrent severe without psychotic features Depression Anxiety IVDU (intravenous drug user) Diabetes Asthma Family History Family History Father Heart disease Social History Social History Household Members: Family Household Members Other:: Mother and brother Housing: Apartment Do you presently have visiting nurse or other home services: No Alcohol intake: unknown Patient Tobacco Use Status: Current everyday Tobacco user Tobacco use type: Cigarette Cigarette Packs Per Day: 1 Cigarettes Per Day: 18 Years Smoked: 15 Smoked in Last 30 Days: Yes e-Cigarette/Vaping Use: Currently Using Second Hand Smoke Exposure: Yes Use of substances other than those prescribed or required for medical reasons: Yes Substance Use Type: Crack/Cocaine, Heroin and Marijuana Advance Directives: No Advance Directives Information Provided: Yes Advance Directives Date on File: 01/30/21 service: No Current occupational status: unemployed Sexual orientation: Straight/Heterosexual Physical Exam 2 Vital Signs: Vital Signs: Last Vital Signs Temp 98.2 F 10/13/23 02:00 Pulse 82 10/13/23 02:00 Resp 16 10/13/23 02:00 BP 98/64 10/13/23 02:00 Pulse Ox 98 10/13/23 02:00 O2 Del Method Room Air 10/13/23 02:00 BMI result Body Mass Index 27.4 Appearance: Alert. Oriented X3. No acute distress. Sleepy Eyes: PERRLA, No Nystagmus ENT: Pharynx normal. Oral Mucosa moist Neck: Normal inspection. Neck supple. CVS: Normal heart rate and rhythm. Pulses normal. Respiratory: No respiratory distress. Equal air entry bilateral, no wheezing/rales/rhonchi Abdomen: Soft and nontender. Bowel sounds are present, Skin: Skin warm and dry. Chronic wound left forearm with surrounding cellulitis good range of left elbow no crepitation no swelling of the volar aspect no signs of compartment syndrome, neurovascular intact Extremities: No lower extremity edema. No calf tenderness Neuro: Oriented X 3. No motor deficit. No sensory deficit.No cerebellar signs , cranial nerves II-XII intact Medical Decision Making Lab Data [facility] Lab Attestation statement: I reviewed the patient's lab results. 10/13/23 00:37 10/13/23 00:37 Labs: Lab Results 10/13/23 Range/Units 00:37 WBC 6.3 (4.8-10.8) X10*3/uL RBC 4.94 (4.60-5.80) X10*6/uL Hgb 9.0 L (14.0-18.0) g/dl Hct 30.4 L (42.0-52.0) % MCV 61.5 L (80.0-98.0) fL MCH 18.2 L (27.0-33.0) pg MCHC 29.6 L (31.0-36.0) g/dl RDW 17.8 H (11.0-16.0) % Plt Count 331 D (160-400) X10*3/uL MPV 9.1 L (9.4-12.4) fL Absolute Nucleated RBC 0.000 (0.0-0.012) X10*3/uL Nucleated RBC % (auto) 0.0 (0.0-0.2) /100WBC Sodium 141 (135-145) mmol/L Potassium 4.0 (3.3-5.1) mmol/L Chloride 106 (96-108) mmol/L Carbon Dioxide 26 (22-29) mmol/L Anion Gap 13 (12-20) BUN 15 (9-16) mg/dL Creatinine 0.68 (0.5-1.4) mg/dL Estim Creat Clear Calc 154.5 Estimated GFR > 60 Random Glucose 91 (60-115) mg/dL Lactic Acid 0.9 (0.5-2.0) mmol/L Calcium 9.4 (8.4-10.2) mg/dL Total Bilirubin 0.2 (0.0-1.0) mg/dL AST 18 (5-37) U/L ALT 18 (0-40) U/L Alkaline Phosphatase 80 (39-117) U/L Total Protein 7.6 (6.5-8.0) g/dL Albumin 3.9 (3.5-5.0) g/dL Discharge Plan Discharge Clinical Impression: Cellulitis of arm, Polysubstance abuse Patient Disposition: Admitted As Inpatient
[2023-10-13] MEDS: Piperacillin Sodium/Tazobactam 4.5 GM in 0.9 % Sodium Chloride 100 ML IV ×4 (03:20→21:55)
[2023-10-13] MEDS: Lactated Ringers 1,000 ML 999 ML IV (03:20)
[2023-10-13] MEDS: Enoxaparin Sodium 40 MG/0.4 ML SYRINGE SUBCUT (03:20)
[2023-10-13] MEDS: iohexoL 350 MG/ML 100 ML INFUS..BTL 85 ML IV (03:30)
[2023-10-13] MEDS: vancomycin/NS 2,000 MG/500 ML PLAST..BAG 250 MG IV (04:00)
--- NOTE | 2023-10-13 04:11 | PC.NURSE ---
this rn placed 20g iv in R FA. pt tolerated well 2nd set of cultures obtained. pt medicated according to mar
--- NOTE | 2023-10-13 04:12 | PC.NURSE ---
this rn attempting to medicate pt with iv vanco, this rn punctured side of tubing of bag causing leak. propellant charge zone assembler made aware. purchasing supervisor made aware. manual mix made
--- NOTE | 2023-10-13 04:33 | PC.NURSE ---
pt states methadone dose 145mg uses the clinic at [facility] states clinic does not open until 5:30 this rn made overflow rn aware
[2023-10-13] MEDS: 0.9 % Sodium Chloride 1,000 ML 999 ML IV (05:47)
[2023-10-13 06:11] LABS: MANUAL DIFF FLAG NO
[2023-10-13 06:27] LABS: Basophils Percent Auto 0.4 % (0-2); Eosinophils Absolute Auto 0.1 X10*3/uL (0.0-0.4); Hematocrit 26.9 % (42.0-52.0); Hemoglobin 7.9 g/dl (14.0-18.0); Imm Gran Abs Auto 0.02 X10*3/uL (0.00-0.03); Imm Gran Pct Auto 0.4 % (0.0-0.4); Lymphocytes Absolute Auto 2.1 X10*3/uL (1.2-4.9); Mean Corpuscular HGB Conc 29.4 g/dl (31.0-36.0); Mean Corpuscular Hemoglobin 18.1 pg (27.0-33.0); Mean Corpuscular Volume 61.7 fL (80.0-98.0); Monocytes Absolute Auto 0.6 X10*3/uL (0.1-1.2); Monocytes Percent Auto 10.8 % (2-11); Neutrophils Absolute Auto 2.7 x10*3/uL (2.0-8.3); Neutrophils Percent Auto 48.4 % (45-73); Platelet Count 309 X10*3/uL (160-400); Red Blood Count 4.36 X10*6/uL (4.60-5.80); Red Cell Distribution Width 17.7 % (11.0-16.0); White Blood Count 5.6 X10*3/uL (4.8-10.8)
[2023-10-13 06:28] LABS: Anion Gap 11 (12-20); Blood Urea Nitrogen 13 mg/dL (9-16); Calcium 8.6 mg/dL (8.4-10.2); Carbon Dioxide 24 mmol/L (22-29); Chloride 110 mmol/L (96-108); Creatinine Clr Calc Pharmacy 145.9; Estimated Glomerular Filt Rate > 60; Glucose Random 138 mg/dL (60-115); Iron 18 mcg/dL (45-160); Percent Iron Saturation 7 % (15-50); Potassium 3.7 mmol/L (3.3-5.1); Sodium 141 mmol/L (135-145); Total Iron Binding Capacity 248 mcg/dL (228-428); Unsaturated Iron Binding 230 ug/dL
--- NOTE | 2023-10-13 06:52 | PC.NURSE ---
Patient arrived to ED overflow from main ED at 04:55 this morning, awaiting bed assignment; assumed care at this time. Pt here with cellulitis of the left forearm. Arm is hot to touch, red, with dry open areas. No drainage noted. +radial and dp pulses. +cms. Pt is drowsy but alerts to name, is oriented to self, place, and time. BP remains soft per report but stable 96/51 HR 58, asymptomatic. 1L bolus infusing on arrival to unit. Additional 1L NS bolus ordered and infusing per Dr. Lilly this morning. +PERRLA 2mm. Breathing is even and unlabored without distress on RA. RR 16-18. Handoff report given to oncoming RN at 06:45.
--- NOTE | 2023-10-13 09:15 | PHA.PROG ---
Admission Date/Time: October 13, 2023 02:48 Indication: SKIN Weight in k.1 kg Adjusted body weight in K.06 Serum Creatinine - Last 168 Hours 10/13/23 10/13/23 00:37 06:02 Creatinine 0.68 0.72 Estimated CrCl and GFR - Last 168 Hours 10/13/23 10/13/23 00:37 06:02 Estim Creat Clear Calc 154.5 145.9 Estimated GFR > 60 > 60 Vancomycin Loading Dose: 2000 Current Vancomycin Dosing Regimen: 1250 mg Q12H Vancomycin Monitoring using AUC goal of 400 - 600 range with trough as surrogate marker: 463 Date and Time for next Vancomycin Level to be drawn: 10/13 @1400 Pharmacist Comments on Vancomycin Plan: Vancomycin dosing will take advantage of [employer] as a clinical decision support tool that uses Bayesian modeling to calculate individual patient's pharmacokinetic parameters and forecast the patient's drug concentration time course with the target goal AUC 24 range of 400 - 600 mg/L/hr.
[2023-10-13] MEDS: 0.9 % Sodium Chloride Flush 3 ML SYRINGE IVFLUSH ×2 (09:17→16:31)
--- NOTE | 2023-10-13 09:32 | P.CONGS_ITS ---
History of Present Illness Consult details Consult date: 10/13/23 Requesting physician: Pauline Lilly Narrative: 33-year-old male patient with history of IV drug abuse, and a previous history of ulceration of the left arm, reporting IV injection as recent as yesterday. Patient presents with increased left arm pain and redness. He has a history of MRSA bacteremia. He noted pus draining from the forearm therefore presented to the which department for further evaluation. He denies fever or chills. Workup in the emergency department revealed a normal WBC. A CT of the left forearm did reveal some areas which may be small multiple skin abscess collections. This morning he reports mainly pain throughout the left arm. Review of Systems 2 Review of Systems: Yes all other systems are reviewed and are negative PMFSH Past Medical History Medical History MRSA bacteremia Suicidal ideation Depression Diabetes Cocaine use with cocaine-induced disorder Opiate dependence, continuous Major depressive disorder, recurrent severe without psychotic features Depression Anxiety IVDU (intravenous drug user) Diabetes Asthma Family History Family History Father Heart disease Social History Social History Household Members: Family Household Members Other:: Mother and brother Housing: Apartment Do you presently have visiting nurse or other home services: No Alcohol intake: unknown Patient Tobacco Use Status: Current everyday Tobacco user Tobacco use type: Cigarette Cigarette Packs Per Day: 1 Cigarettes Per Day: 18 Years Smoked: 15 Smoked in Last 30 Days: Yes e-Cigarette/Vaping Use: Currently Using Second Hand Smoke Exposure: Yes Use of substances other than those prescribed or required for medical reasons: Yes Substance Use Type: Crack/Cocaine, Heroin and Marijuana Advance Directives: No Advance Directives Information Provided: Yes Advance Directives Date on File: 01/30/21 service: No Current occupational status: unemployed Sexual orientation: Straight/Heterosexual Meds Allergies Allergy/AdvReac Type Severity Reaction Status Date / Time Pertussis Vaccines Allergy Mild HIVES Verified 02/13/23 19:58 [PERTUSSIS VACCINES] Active Medications: Current Medications Acetaminophen (Acetaminophen 325 Mg Tablet) 650 mg PO Q6H PRN PRN Reason: Pain, Mild (Pain Scale 1-3) Enoxaparin Sodium (Enoxaparin Sodium 40 Mg/0.4 Ml Syringe) 40 mg SUBCUT Q24H [facility] Last Admin: 10/13/23 03:20 Dose: 40 mg Piperacillin Sod/Tazobactam (Sod 4.5 gm/ Sodium Chloride) 100 mls @ 200 mls/hr IV Q6H [facility] Last Admin: 10/13/23 09:17 Dose: 200 mls/hr Vancomycin HCl 1,250 mg/ (Sodium Chloride) 250 mls @ 166.667 mls/hr IV Q12H [facility] Melatonin (Melatonin 3 Mg Tablet) 6 mg PO BEDTIME PRN PRN Reason: Insomnia Ondansetron HCl (Ondansetron Hcl 4 Mg/2 Ml Vial) 4 mg IVPUSH Q8H PRN PRN Reason: Nausea and Vomiting Pharmacy Consult (Consult Rx Vancomycin Dosing) 1 each MISCELLANE DAILY PRN PRN Reason: Consult order Sodium Chloride (0.9 % Sodium Chloride Flush 3 Ml Syringe) 3 ml IVFLUSH QSHIFT [facility] Last Admin: 10/13/23 09:17 Dose: 3 ml Physical Exam 2 Vital Signs: Vital Signs: Last Vital Signs Temp 97.8 F 10/13/23 09:12 Pulse 61 10/13/23 09:12 Resp 16 10/13/23 09:12 BP 97/60 10/13/23 09:12 Pulse Ox 96 10/13/23 09:12 O2 Del Method Room Air 10/13/23 09:12 BMI result Body Mass Index 27.4 Const: General: cooperative and no acute distress Nutritional Appearance: w ell nourished Orientation/consciousness: patient oriented x3 Limitations: no limitations HEENT: Head: Yes normocephalic and Yes atraumatic Ears: hearing grossly normal bilaterally Resp: Effort & Inspection: normal respiratory effort, no audible wheezes, no cough and no respiratory distress Cardio: Jugular venous distension: no JVD GI: Inspection: Yes normal to inspection Skin: Other: Warm, dry, no rash Neuro: General: patient oriented x3 Extrem: Other: Left arm with extensive ulceration from prior IV drug injection and mild erythema throughout the forearm involving all surfaces. No particular area of increased erythema to indicate an underlying abscess. Fingers are warm with brisk capillary refill and normal range of motion. No evidence of compartment syndrome at this time. General: Yes no clubbing, cyanosis or edema Results Labs 10/13/23 06:02 10/13/23 06:02 Labs: Abnormal lab results 10/13/23 10/13/23 Range/Units 00:37 06:02 RBC 4.36 L (4.60-5.80) X10*6/uL Hgb 9.0 L 7.9 L (14.0-18.0) g/dl Hct 30.4 L 26.9 L (42.0-52.0) % MCV 61.5 L 61.7 L (80.0-98.0) fL MCH 18.2 L 18.1 L (27.0-33.0) pg MCHC 29.6 L 29.4 L (31.0-36.0) g/dl RDW 17.8 H 17.7 H (11.0-16.0) % MPV 9.1 L (9.4-12.4) fL Chloride 110 H (96-108) mmol/L Anion Gap 11 L (12-20) Random Glucose 138 H (60-115) mg/dL Iron 18 L (45-160) mcg/dL % Saturation 7 L (15-50) % Short CBC 10/13/23 10/13/23 Range/Units 00:37 06:02 WBC 6.3 5.6 (4.8-10.8) X10*3/uL Hgb 9.0 L 7.9 L (14.0-18.0) g/dl Hct 30.4 L 26.9 L (42.0-52.0) % Plt Count 331 D 309 (160-400) X10*3/uL BMP 10/13/23 10/13/23 00:37 06:02 Sodium 141 141 Potassium 4.0 3.7 Chloride 106 110 H Carbon Dioxide 26 24 BUN 15 13 Creatinine 0.68 0.72 Calcium 9.4 8.6 D Liver Function 10/13/23 Range/Units 00:37 Total Bilirubin 0.2 (0.0-1.0) mg/dL AST 18 (5-37) U/L ALT 18 (0-40) U/L Alkaline Phosphatase 80 (39-117) U/L Albumin 3.9 (3.5-5.0) g/dL All other labs normal. Assessment and Plan (1) Polysubstance abuse: Status: Acute (2) Cellulitis of arm: Qualifiers: Laterality: left Qualified Code(s): L03.114 - Cellulitis of left upper limb Status: Acute Plan 33-year-old male patient with long history of IV drug abuse, presenting with cellulitis and ulceration of the left arm from chronic IV drug injection. Despite the ulceration he continues to inject in the left arm. Examination is negative for an area of increased fluctuance. The area is diffusely erythematous suggestive of a cellulitis. Recommend elevation and IV antibiotics. No incision and drainage recommended at this time. Will continue to monitor. Procedures Date of Service Date of Service: 10/13/23
--- NOTE | 2023-10-13 09:39 | PC.NURSE ---
Methadone verified, aware, pharmacy form faxed down
--- NOTE | 2023-10-13 09:50 | HE.PHANOTE ---
METHADONE PATIENT GETS DOSED WITH [facility] [phone], LAST DOSED WITH 145 MG ON 10/10 @7536
--- NOTE | 2023-10-13 10:10 | PHA.MEDREC ---
Pharmacy Consult ? Medication Reconciliation Pharmacy has completed the medication reconciliation. Confirmed medications with patient and through claim history.
[2023-10-13] MEDS: methADONE HCl 20 MG/2 ML ORAL.CONC 145 MG PO (11:16)
--- NOTE | 2023-10-13 12:43 | PC.NURSE ---
Security checked belongings- no contraband was found
--- NOTE | 2023-10-13 13:10 | MHC.CM.PN ---
PT REPORTS HE LIVES WITH HIS MOTHER AND IS INDEPENDENT WITH CARE HE HAS NO DME AND NO SERVICES PT STATES HE HAS A HCP, COPY REQUESTED PT SAYS HE WAS ACTIVE WITH [facility] ALONSO, BUT HAS NOT BEEN IN A WHILE DCP: HOME N O SERVICES VIA PRIVATE TRANSPORT VS SNF PLACEMENT IF IV ABX ARE REQUIRED
--- NOTE | 2023-10-13 14:11 | P.PNIM_ITS ---
Subjective Subjective Date of Service: 10/13/23 Interval History: f/u on cellulitis of the arm, substance use desorder, calm cooperativ, persistent redness of the arm Physical Exam 2 Vital Signs: Vital Signs: Last Vital Signs Temp 97.8 F 10/13/23 13:57 Pulse 58 10/13/23 13:57 Resp 16 10/13/23 13:57 BP 97/60 10/13/23 09:12 Pulse Ox 99 10/13/23 13:57 O2 Del Method Room Air 10/13/23 13:57 BMI result Body Mass Index 27.4 General: AO X 3, no acute distress Resp: CTA bilateral CVS: S1,S2,RRR GI: +BS, NT, no distention Skin: Neuro: motor grossly intact Psych: appropriate affect Objective Data Active Medications Acetaminophen (Acetaminophen 325 Mg Tablet) 650 mg PO Q6H PRN PRN Reason: Pain, Mild (Pain Scale 1-3) Baclofen (Baclofen 10 Mg Tablet) 10 mg PO BEDTIME [facility] Clonazepam (Clonazepam 1 Mg Tablet) 1 mg PO TID [facility] Clonidine HCl (Clonidine Hcl 0.1 Mg Tablet) 0.1 mg PO TID [facility]; Protocol Enoxaparin Sodium (Enoxaparin Sodium 40 Mg/0.4 Ml Syringe) 40 mg SUBCUT Q24H [facility] Last Admin: 10/13/23 03:20 Dose: 40 mg Documented By: ANNALEE Fluoxetine HCl (Fluoxetine Hcl 20 Mg Capsule) 40 mg PO DAILY [facility] Gabapentin (Gabapentin 300 Mg Capsule) 300 mg PO BEDTIME [facility] Gabapentin (Gabapentin 600 Mg Tablet) 600 mg PO TID [facility] Piperacillin Sod/Tazobactam (Sod 4.5 gm/ Sodium Chloride) 100 mls @ 200 mls/hr IV Q6H [facility] Last Infusion: 10/13/23 10:21 Dose: Infused Documented By: WELLINGTON Vancomycin HCl 1,250 mg/ (Sodium Chloride) 250 mls @ 166.667 mls/hr IV Q12H [facility] Melatonin (Melatonin 3 Mg Tablet) 6 mg PO BEDTIME PRN PRN Reason: Insomnia Methadone HCl (Methadone Hcl 20 Mg/2 Ml Oral.Conc) 145 mg PO DAILY [facility] Last Admin: 10/13/23 11:16 Dose: 145 mg Documented By: WELLINGTON Ondansetron HCl (Ondansetron Hcl 4 Mg/2 Ml Vial) 4 mg IVPUSH Q8H PRN PRN Reason: Nausea and Vomiting Pharmacy Consult (Consult Rx Vancomycin Dosing) 1 each MISCELLANE DAILY PRN PRN Reason: Consult order Quetiapine Fumarate (Quetiapine Fumarate 100 Mg Tablet) 100 mg PO BEDTIME PRN PRN Reason: Sleep Sodium Chloride (0.9 % Sodium Chloride Flush 3 Ml Syringe) 3 ml IVFLUSH QSHIFT [facility] Last Admin: 10/13/23 09:17 Dose: 3 ml Documented By: WELLINGTON Labs 10/13/23 06:02 10/13/23 06:02 Labs: Laboratory Results - last 24 hr 10/13/23 10/13/23 00:37 06:02 MCV 61.5 L 61.7 L MCH 18.2 L 18.1 L MCHC 29.6 L 29.4 L RDW 17.8 H 17.7 H Plt Count 331 D 309 MPV 9.1 L 10.0 Immature Gran % (Auto) 0.4 Neut % (Auto) 48.4 Lymph % (Auto) 38.0 [place] % (Auto) 10.8 Eos % (Auto) 2.0 Baso % (Auto) 0.4 Lymph # (Auto) 2.1 [place] # (Auto) 0.6 Eos # (Auto) 0.1 Baso # (Auto) 0.0 Abs Immat Gran (auto) 0.02 Absolute Neuts (auto) 2.7 Absolute Nucleated RBC 0.000 0.000 Nucleated RBC % (auto) 0.0 0.0 Smear Path Review SEE NOTE Anion Gap 13 11 L Estim Creat Clear Calc 154.5 145.9 Estimated GFR > 60 > 60 Random Glucose 91 138 H Lactic Acid 0.9 Calcium 9.4 8.6 D Iron 18 L TIBC 248 % Saturation 7 L Unsat Iron Binding 230 Total Bilirubin 0.2 AST 18 ALT 18 Alkaline Phosphatase 80 Total Protein 7.6 Albumin 3.9 Assessment and Plan (1) Polysubstance abuse: Status: Acute (2) Cellulitis of arm: Status: Acute (3) Major depressive disorder, recurrent severe without psychotic features: Status: Acute Plan 33-year-old male with pertinent history of mood disorder, IV drug use disorder, polysubstance use disorder presents to the emergency department for concerns of left forearm infection. Purulent cellulitis of left forearm with abscesses: seen by surgery no indication for drainage, continue Vancomycin given history of MRSA, ID consult Major Depression, home mes including clonidine, seroquel, paxil, gabapentin, Psych consult Polysubstance use disorder/OUD: restartedon Methadone, clodine for withdrawal, addication med consult Microcytic anemia, iron deficiency anemia, check occult blood, no indication for transfusion at this time DVT prophylaxis: Lovenox Full code Admit as inpatient and will require two night minimum hospital stay for IV antibiotics (as above), which is not possible in a lesser acute setting. Specialist consult pending Quality Stroke Does the patient have a stroke diagnosis?: No VTE Prior VTE?: No VTE Risk Level:: Medical - moderate - high VTE Device Contraindication: Treatment Not Indicated VTE Drug Contraindication: N/A - Med Ordered
[2023-10-13 14:22] LABS: Amphetamine Screen Urine Not Detected (Not Detect); Barbiturates, Urine Not Detected (Not Detect); Cannabinoid Screen Urine Not Detected (Not Detect); Cocaine Screen Urine POSITIVE (Not Detect); Fentanyl, urine POSITIVE (Not Detect); Opiate Screen Urine POSITIVE (Not Detect); Phencyclidine Screen Urine Not Detected (Not Detect)
[2023-10-13 14:26] LABS: Benzodiazepines Screen Urine Not Detected (Not Detect)
[2023-10-13] MEDS: Gabapentin 600 MG TABLET PO (16:26)
[2023-10-13] MEDS: FLUoxetine HCl 20 MG CAPSULE 40 MG PO (16:28)
[2023-10-13] MEDS: clonazePAM 1 MG TABLET PO (16:29)
[2023-10-13] MEDS: cloNIDine HCL 0.1 MG TABLET PO (16:29)
--- NOTE | 2023-10-13 17:53 | MHC.EDTECH ---
pt ate 100% of his dinner, 480cc of fluids
[2023-10-14] VITALS (8 sets, daily range): BP systolic 99–120; BP diastolic 54–69; PULSE 46–67; RESP 16–20; TEMP 36.3–36.8; O2SAT 94–98; BMI 27.7
[2023-10-14] MEDS: 0.9 % Sodium Chloride Flush 3 ML SYRINGE IVFLUSH ×3 (00:30→23:49)
[2023-10-14] MEDS: Piperacillin Sodium/Tazobactam 4.5 GM in 0.9 % Sodium Chloride 100 ML IV ×4 (02:30→22:32)
--- NOTE | 2023-10-14 02:50 | PC.NURSE ---
Late entry; sedating evening meds held at this typewriter aligner's discretion due to pt sleeping since my arrival at 7pm. VSS and pt able to wake to verbal stimuli however pt appears sedated. Dr. Lilly made aware.
[2023-10-14 06:24] LABS: Creatinine Clr Calc Pharmacy 152.2; Estimated Glomerular Filt Rate > 60
--- NOTE | 2023-10-14 07:00 | CA_ITS ---
Transthoracic Echocardiogram Patient (Last, First, Middle): Andrey Monk G Gender: Male Date of : 1990 Age: 33 Procedure Date: 10/14/2023 Procedure Type: Transthoracic Echocardiogram Location: ER Height: 172.72 cm Weight: 83.92 kg BSA: 1.98 m2 Heart Rate: 49 bpm BP: 105 / 54 mmHg Crop Duster: KENYA Montalvo MD: Kal Ruiz MD Header Dock: Rickey Webber MD Symptoms: bacteremia Study Quality: Adequate ECG Rhythm: Bradycardia Conclusions: - Essentially normal study with no clear evidence of vegetations Findings Left Ventricle Normal left ventricular size, thickness, and systolic function. The visually estimated ejection fraction is between 60-65%. Spectral Doppler is indicative of a normal filling pattern. Right Ventricle Normal right ventricular cavity size and systolic function. Atria Both atria are normal in size. There is no evidence of interatrial shunt. Aortic Valve Normal aortic valve structure and function. There is no aortic valve stenosis. There is no aortic valve regurgitation. Mitral Valve Normal mitral valve structure and function. There is trace mitral valve regurgitation. There is no mitral valve stenosis. Pulmonic Valve The pulmonic valve is likely normal. Tricuspid Valve Normal tricuspid valve structure. Tricuspid regurgitation envelope is inadequate for calculation of right ventricular systolic pressure. Great Vessels All visible segments of the aorta are normal in size. The pulmonary artery was not well visualized. Venous The inferior vena cava is normal in size and collapses greater than 50% with inspiration. Pericardium/Pleural There is no evidence of pericardial effusion. Prior Study Comparison No significant change compared to prior study dated: 12/10/2022. RV does not appear to be enlarged on this 30. Measurements 2D Linear Measurements IVSd: 1.10 0.6-0.9/0.6-1.0 cm LVIDd: 4.95 3.9-5.3/4.2-5.9 cm LVIDd Index: 2.50 2.4-3.2/2.2-3.1 cm/m2 LVIDs: 3.16 2.0-3.6 cm LVPWd: 1.13 0.7-1.1 cm LA Diam: 3.60 2.7-3.8/3.0-4.0 cm LAIDs Index: 1.82 1.5-2.3 cm/m2 LV Mass: 258.81 67-162/88-224 g LV Mass Index: 130.71 43-95/49-115 g/m2 LVOT Diam: 2.40 3.0+(-)1.3 cm Mitral Valve MV Pk E: 1.27 MV PK A: 0.36 MV Decel Time: 242.00 E/A: 3.50 E'Lateral: 15.30 E'Medial: 10.10 E/E' Med: 12.60 E/E' Lat: 8.30 PHT: 71.00 MVA PHT: 3.10 Decel Greene: 5.26 Aortic Valve AoV Pk Gabriel: 1.32 AoV Mn Gabriel: 0.82 AoV VTI: 0.32 AoV Pk Grad: 7.00 Aov Mn Grad: 3.00 ARTEMIO Cont.VTI: 3.51 LVOT LVOT Pk Gabriel: 0.98 LVOT Mn Gabriel: 0.67 LVOT VTI: 0.25 LVOT Pk Grad: 4.00 LVOT Mn Grad: 2.00 LVOT Diam: 2.40 LVOT Area: 4.52 Diastolic Function MV Pk E: 1.27 MV Pk A: 0.36 E/A: 3.50 E'Medial: 10.10 E/E' Med: 12.60 E' Laterial: 15.30 E/E' Lat: 8.30 Tricuspid Valve TR Pk Gabriel: 1.96 TR Pk Grad: 15.00 RA Press: 3.00 Great Vessels Aorta Sinus of Valsalva: 3.50 2.0-3.5 cm Ao Asc: 3.40 2.1-3.4 cm Pulmonary Valve PV Pk Gabriel: 0.99 Peak PV Grad: 4.00 Updated in Other Vendor System with Status of Final Rickey Webber MD electronically signed on 10/14/2023 4:42:53 PM with status of Final
[2023-10-14] MEDS: clonazePAM 1 MG TABLET PO ×2 (08:39→15:41)
[2023-10-14] MEDS: FLUoxetine HCl 20 MG CAPSULE 40 MG PO (08:39)
[2023-10-14] MEDS: Gabapentin 600 MG TABLET PO ×2 (08:39→15:41)
[2023-10-14] MEDS: methADONE HCl 20 MG/2 ML ORAL.CONC 145 MG PO (08:43)
[2023-10-14] MEDS: cloNIDine HCL 0.1 MG TABLET PO ×2 (08:51→15:41)
[2023-10-14] MEDS: vancomycin HCL 1,500 MG in 0.9 % Sodium Chloride 500 ML 333.33 MG IV ×2 (09:00→20:21)
--- NOTE | 2023-10-14 11:02 | HO.PM.IMPN ---
Subjective Subjective Date of Service: 10/14/23 Interval History: f/u on cellulitis of the arm, substance use desorder, calm cooperativ, persistent redness of the arm but better Physical Exam Vital Signs: Vital Signs: Last Vital Signs Temp 98.2 F 10/14/23 07:37 Pulse 67 10/14/23 08:53 Resp 17 10/14/23 07:37 BP 105/54 L 10/14/23 08:53 Pulse Ox 94 10/14/23 07:37 O2 Del Method Room Air 10/14/23 07:37 BMI result Body Mass Index 27.4 General: AO X 3, no acute distress Resp: CTA bilateral CVS: S1,S2,RRR GI: +BS, NT, no distention Skin: 10/12 10/13 Neuro: motor grossly intact Psych: appropriate affect Objective Data Active Medications Acetaminophen (Acetaminophen 325 Mg Tablet) 650 mg PO Q6H PRN PRN Reason: Pain, Mild (Pain Scale 1-3) Baclofen (Baclofen 10 Mg Tablet) 10 mg PO BEDTIME [facility] Last Admin: 10/13/23 21:50 Dose: Not Given Documented By: SHAYLEE Non-Admin Reason: Patient Asleep Clonazepam (Clonazepam 1 Mg Tablet) 1 mg PO TID [facility] Last Admin: 10/14/23 08:39 Dose: 1 mg Documented By: AYLA Clonidine HCl (Clonidine Hcl 0.1 Mg Tablet) 0.1 mg PO TID [facility]; Protocol Last Admin: 10/14/23 08:51 Dose: 0.1 mg Documented By: AYLA Enoxaparin Sodium (Enoxaparin Sodium 40 Mg/0.4 Ml Syringe) 40 mg SUBCUT Q24H [facility] Last Admin: 10/14/23 02:35 Dose: Not Given Documented By: SHAYLEE Non-Admin Reason: Patient Refused Fluoxetine HCl (Fluoxetine Hcl 20 Mg Capsule) 40 mg PO DAILY [facility] Last Admin: 10/14/23 08:39 Dose: 40 mg Documented By: AYLA Gabapentin (Gabapentin 300 Mg Capsule) 300 mg PO BEDTIME [facility] Last Admin: 10/13/23 21:50 Dose: Not Given Documented By: SHAYLEE Non-Admin Reason: Patient Asleep Gabapentin (Gabapentin 600 Mg Tablet) 600 mg PO TID [facility] Last Admin: 10/14/23 08:39 Dose: 600 mg Documented By: AYLA Piperacillin Sod/Tazobactam (Sod 4.5 gm/ Sodium Chloride) 100 mls @ 200 mls/hr IV Q6H [facility] Last Infusion: 10/14/23 09:07 Dose: Infused Documented By: AYLA Vancomycin HCl 1,500 mg/ (Sodium Chloride) 500 mls @ 333.333 mls/hr IV Q12H [facility] Last Admin: 10/14/23 09:00 Dose: 333.33 mls/hr Documented By: AYLA Melatonin (Melatonin 3 Mg Tablet) 6 mg PO BEDTIME PRN PRN Reason: Insomnia Methadone HCl (Methadone Hcl 20 Mg/2 Ml Oral.Conc) 145 mg PO DAILY [facility] Last Admin: 10/14/23 08:43 Dose: 145 mg Documented By: AYLA Ondansetron HCl (Ondansetron Hcl 4 Mg/2 Ml Vial) 4 mg IVPUSH Q8H PRN PRN Reason: Nausea and Vomiting Pharmacy Consult (Consult Rx Vancomycin Dosing) 1 each MISCELLANE DAILY PRN PRN Reason: Consult order Quetiapine Fumarate (Quetiapine Fumarate 100 Mg Tablet) 100 mg PO BEDTIME PRN PRN Reason: Sleep Sodium Chloride (0.9 % Sodium Chloride Flush 3 Ml Syringe) 3 ml IVFLUSH QSHIFT [facility] Last Admin: 10/14/23 08:49 Dose: 3 ml Documented By: AYLA Labs 10/13/23 06:02 10/14/23 06:03 Labs: Laboratory Results - last 24 hr 10/13/23 10/14/23 14:03 06:03 Estim Creat Clear Calc 152.2 Estimated GFR > 60 Urine Opiates Screen POSITIVE H Urine Fentanyl Screen POSITIVE H Ur Barbiturates Screen Not Detected Ur Phencyclidine Scrn Not Detected Ur Amphetamines Screen Not Detected U Benzodiazepines Scrn Not Detected Urine Cocaine Screen POSITIVE H U Marijuana (THC) Screen Not Detected Microbiology Microbiology Results: Microbiology 10/13/23 03:01 Blood Culture - Final Blood - Venous Coag negative Staphylococcus 10/13/23 00:37 Blood Culture - Preliminary Blood - Venous No growth after 24 hours. Assessment and Plan (1) Polysubstance abuse: Status: Acute (2) Cellulitis of arm: Status: Acute (3) Major depressive disorder, recurrent severe without psychotic features: Status: Acute Plan 33-year-old male with pertinent history of mood disorder, IV drug use disorder, polysubstance use disorder presents to the emergency department for concerns of left forearm infection. Purulent cellulitis of left forearm with abscesses: seen by surgery no indication for drainage, Blood culture is growing 1/2 grama positive cocci continue Vancomycin given history of MRSA, ID consult echo to rule out endocarditis Major Depression, home mes including clonidine, seroquel, paxil, gabapentin, Psych consult Polysubstance use disorder/OUD (tox screen opioid, cocaine, fentanyl) continue Methadone, clodine for withdrawal, addication med consult following Microcytic anemia, iron deficiency anemia, check occult blood, no indication for transfusion at this time DVT prophylaxis: Lovenox Full code need for inpatient for IV antibiotics (as above), which is not possible in a lesser acute setting. Specialist consult pending Quality Stroke Does the patient have a stroke diagnosis?: No VTE Prior VTE?: No VTE Risk Level:: Medical - moderate - high VTE Device Contraindication: Treatment Not Indicated VTE Drug Contraindication: N/A - Med Ordered
[2023-10-14] MEDS: Nicotine 14 MG PATCH.TD24 TRANSDERMA (12:48)
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
--- NOTE | 2023-10-14 15:11 | MHC.RECOVRN ---
Met with pt in [facility] after consult placed to Addiction Medicine for [facility]. Pt had presented to the ED with possible infection to left forearm after IVDU. Upon evaluation, pt admitted for treatment of cellulitis. Pt is currently on 145 mg methadone through [facility]. Pt reports he has been doing good with heroin/fentanyl use and only uses every couple of days to come down after cocaine use. Pt reports cocaine use, $80-$150 dollars daily, IV. Pt reports he has been working with provider at [facility] to address StUD, recently began taking baclofen. Pt reports no effect on stimulant use so far. Discussed other recovery support options, pt declines referrals at this time. Pt provided with written resources as well as t/w contact information. Denies questions or concerns, will reach out if needed. Discussed with Trista Bolanos APRN.
[2023-10-14] MEDS: Nicotine Polacrilex 2 MG GUM BUCCAL ×2 (15:41→20:27)
--- NOTE | 2023-10-14 16:05 | PC.NURSE ---
Wound noted to Left arm with IVDU, wound currently open to air.
[2023-10-14] MEDS: oxyCODONE HCl Immed Release 5 MG TABLET PO (20:27)
--- NOTE | 2023-10-14 20:38 | PC.NURSE ---
Bp 104/57 pulse low 56 ,earlier pulse as low as 46 earlier ,Dr. Lilly notified,will hold Gabapentin,Clonazepam and Clonidine tonight per Dr. Lilly
[2023-10-14] MEDS: Baclofen 10 MG TABLET PO (20:46)
--- NOTE | 2023-10-14 23:08 | P.CNID_ITS ---
History of Present Illness Data of Consult Service Date: 10/14/23 Requesting physician: Kal Ruiz Primary Care Provider: Orlando Mahmood III, MD HPI Reason for consult: left arm erythema He presents with pain and itching right arm. He has concerns for last week. He has been injecting heroin into arm. He has had November 2022 sepsis MRSA bacteremia and I saw him. He has blood culture coagulase negative staph. He has no endocarditis in past or OM back. Review of Systems 2 Review of Systems: Yes all other systems are reviewed and are negative PMFSH Past Medical History Medical History MRSA bacteremia Suicidal ideation Depression Diabetes Cocaine use with cocaine-induced disorder Opiate dependence, continuous Major depressive disorder, recurrent severe without psychotic features Depression Anxiety IVDU (intravenous drug user) Diabetes Asthma Family History Family History Father Heart disease Family history: reviewed and not pertinent Social History Social History Household Members: Family Household Members Other:: Mother and brother Housing: House Do you presently have visiting nurse or other home services: No Alcohol intake: unknown Patient Tobacco Use Status: Current everyday Tobacco user Tobacco use type: Cigarette Cigarette Packs Per Day: 1 Cigarettes Per Day: 30 Years Smoked: 15 e-Cigarette/Vaping Use: Currently Using Second Hand Smoke Exposure: Yes Substance Use Type: Crack/Cocaine, Heroin and IV Drugs Advance Directives Date on File: 01/30/21 service: No Current occupational status: unemployed Sexual orientation: Straight/Heterosexual Meds Allergies Allergy/AdvReac Type Severity Reaction Status Date / Time Pertussis Vaccines Allergy Mild HIVES Verified 02/13/23 19:58 [PERTUSSIS VACCINES] Active Medications: Current Medications Acetaminophen (Acetaminophen 325 Mg Tablet) 650 mg PO Q6H PRN PRN Reason: Pain, Mild (Pain Scale 1-3) Baclofen (Baclofen 10 Mg Tablet) 10 mg PO BEDTIME [facility] Last Admin: 10/14/23 20:46 Dose: 10 mg Clonazepam (Clonazepam 1 Mg Tablet) 1 mg PO TID [facility] Last Admin: 10/14/23 20:48 Dose: Not Given Clonidine HCl (Clonidine Hcl 0.1 Mg Tablet) 0.1 mg PO TID [facility]; Protocol Last Admin: 10/14/23 20:48 Dose: Not Given Enoxaparin Sodium (Enoxaparin Sodium 40 Mg/0.4 Ml Syringe) 40 mg SUBCUT Q24H [facility] Last Admin: 10/14/23 02:35 Dose: Not Given Fluoxetine HCl (Fluoxetine Hcl 20 Mg Capsule) 40 mg PO DAILY [facility] Last Admin: 10/14/23 08:39 Dose: 40 mg Gabapentin (Gabapentin 300 Mg Capsule) 300 mg PO BEDTIME [facility] Last Admin: 10/14/23 20:49 Dose: Not Given Gabapentin (Gabapentin 600 Mg Tablet) 600 mg PO TID [facility] Last Admin: 10/14/23 20:49 Dose: Not Given Piperacillin Sod/Tazobactam (Sod 4.5 gm/ Sodium Chloride) 100 mls @ 200 mls/hr IV Q6H [facility] Last Admin: 10/14/23 22:32 Dose: 200 mls/hr Vancomycin HCl 1,500 mg/ (Sodium Chloride) 500 mls @ 333.333 mls/hr IV Q12H [facility] Last Infusion: 10/14/23 22:09 Dose: Infused Melatonin (Melatonin 3 Mg Tablet) 6 mg PO BEDTIME PRN PRN Reason: Insomnia Methadone HCl (Methadone Hcl 20 Mg/2 Ml Oral.Conc) 145 mg PO DAILY [facility] Last Admin: 10/14/23 08:43 Dose: 145 mg Nicotine (Nicotine 14 Mg Patch.Td24) 14 mg TRANSDERMA DAILY [facility] Last Admin: 10/14/23 12:48 Dose: 14 mg Nicotine Polacrilex (Nicotine Polacrilex 2 Mg Gum) 2 mg BUCCAL Q2H PRN PRN Reason: craving Last Admin: 10/14/23 20:27 Dose: 2 mg Ondansetron HCl (Ondansetron Hcl 4 Mg/2 Ml Vial) 4 mg IVPUSH Q8H PRN PRN Reason: Nausea and Vomiting Oxycodone HCl (Oxycodone Hcl Immed Release 5 Mg Tablet) 5 mg PO Q6H PRN PRN Reason: Pain, Severe (Pain Scale 7-10) Last Admin: 10/14/23 20:27 Dose: 5 mg Pharmacy Consult (Consult Rx Vancomycin Dosing) 1 each MISCELLANE DAILY PRN PRN Reason: Consult order Quetiapine Fumarate (Quetiapine Fumarate 100 Mg Tablet) 100 mg PO BEDTIME PRN PRN Reason: Sleep Sodium Chloride (0.9 % Sodium Chloride Flush 3 Ml Syringe) 3 ml IVFLUSH QSHIFT [facility] Last Admin: 10/14/23 17:06 Dose: Not Given Home Medications Medication Instructions Recorded Confirmed Last Taken Type baclofen 10 mg tablet 10 mg PO BEDTIME cocaine withdrawal 10/13/23 10/13/23 Unknown History clonazepam 1 mg tablet 1 mg PO TID 10/13/23 10/13/23 Unknown History clonidine HCl 0.1 mg tablet 0.1 mg PO TID 10/13/23 10/13/23 Unknown History fluoxetine 40 mg capsule 40 mg PO DAILY 10/13/23 10/13/23 Unknown History gabapentin 300 mg capsule 300 mg PO BEDTIME 10/13/23 10/13/23 Unknown History gabapentin 600 mg tablet 600 mg PO TID 10/13/23 10/13/23 Unknown History methadone 10 mg/mL oral 145 mg PO DAILY 10/13/23 10/13/23 10/11/23 History concentrate (Methadone Intensol) quetiapine 100 mg tablet 100 - 200 mg PO BEDTIME PRN Sleep 10/13/23 10/13/23 Unknown History Physical Exam 2 Vital Signs: Vital Signs: Last Vital Signs Temp 97.4 F 10/14/23 19:58 Pulse 56 10/14/23 19:58 Resp 16 10/14/23 19:58 BP 104/57 L 10/14/23 19:58 Pulse Ox 97 10/14/23 19:58 O2 Del Method Room Air 10/14/23 19:58 BMI result Body Mass Index 27.7 Extrem: Other: left arm scabbing and mild erythema Results Labs 10/13/23 06:02 10/14/23 06:03 Labs: BMP 10/14/23 06:03 Creatinine 0.69 Microbiology Microbiology Results: Microbiology 10/13/23 03:01 Blood - Venous Blood Culture - Final Coag negative Staphylococcus 10/13/23 00:37 Blood - Venous Blood Culture - Preliminary No growth after 24 hours. Assessment and Plan (1) Polysubstance abuse: Status: Acute (2) Cellulitis of arm: Qualifiers: Laterality: left Qualified Code(s): L03.114 - Cellulitis of left upper limb Status: Acute Plan He is on 145 a day Methadone he says at [facility]. He has mild cellulitis but mostly probably xylazine related. He has had MRSA in past bacteremia Right now cellulitis almost gone and only eschars left. Would continue Vancomycin alone If no bacteremia tomorrow and continues to be afebrile with no elevated WBC would switch to po Doxycycline for a week. Check Hepatitis C and HIV.
[2023-10-15 03:17] VITALS: BP 100/51; PULSE 50; RESP 18; TEMP 36.3; O2SAT 98
[2023-10-15 04:07] LABS: HIV AB/AG Nonreactive (Nonreactive); HIV Num 1 0.06 S/CO (0.00-0.99); ~HepC Num1 0.15 S/CO (0.00-0.79); ~Hepatitis C Antibody Nonreactive (Nonreactive)
[2023-10-15 06:58] LABS: Vancomycin Random 11.2 mcg/mL (15-20)
[2023-10-15 06:59] LABS: Creatinine Clr Calc Pharmacy 149.5; Estimated Glomerular Filt Rate > 60
[2023-10-15 07:43] VITALS: BP 104/62; PULSE 57; RESP 18; TEMP 36.8; O2SAT 98
--- NOTE | 2023-10-15 08:40 | PM.DS ---
DS: Providers Provider Date of Service: 10/15/23 Date of admission: 10/13/23 02:48 Primary care physician: Orlando Mahmood III, MD Consults: 10/13/23 02:48 Addiction Medicine Routine Consulting Provider: Addiction Covering Reason for consultation: cocaine use disorder 10/13/23 05:15 Consult to General Surgery Routine Consulting Provider: [facility] General Surgeons Reason for consultation: forearm abscesses 10/13/23 14:10 Consult to Infectious Diseases Routine Consulting Provider: [facility] Infectious Disease Reason for consultation: Celluilitis of the left arm 10/13/23 14:21 Consult to Psychiatry Routine Consulting Provider: Psych Covering Reason for consultation: major depression, med adjustment 10/14/23 16:13 Consult to Wound Care Routine Reason for consultation: wound Left ARM DS: Diagnosis Discharge Diagnosis (1) Polysubstance abuse: Status: Acute (2) Cellulitis of arm: Status: Acute DS: Summary Hospital Course Hospital Course: admission [facility] Complaint: Arm infection This is a 33-year-old male with pertinent history of mood disorder, IV drug use disorder, polysubstance use disorder presents to the emergency department for concerns of left forearm infection. Patient does have history of MRSA bacteremia. Patient states he has had a chronic wound on the left forearm but continues to inject drugs in the same forearm. He noticed pus drainage from forearm when he was injecting cocaine prior to presentation. Also endorses intermittent fevers or chills. No chest discomfort, palpitations, shortness of breath, abdominal pain, changes in urinary or bowel habits. In the emergency department, imaging concerning for abscesses along the anterior and lateral forearm. Hospital course: The patient presented with redness of the left arm from an area with old scabs from Xylazine injection and was admitted for cellulitis. He was treated with IV Vancomycin. Blood culture grew 1/2 coagulase-negative Staphylococcus. An echocardiogram showed no vegetation. The patient was evaluated by infectious disease specialists, who recommended transitioning to PO doxycycline at discharge if the culture is negative, white blood cell count (WBC) is normal, and there is no fever. Since the patient is afebrile and has normal WBC, he will be discharged with oral Doxycycline 100 mg twice daily for 7 days. he was advised to avoid substance use. Additionally, the addiction medicine team saw the patient and advised him to continue Methadone. Prior to been discharged, he voiced suicidal ideation and who evaluated by the CARE team and deemed high risk for self harm and therefore is refered for inpatient Psych admission, before that he was evaluated by Psych with no medication adjustment. Of note the patient is chronic anemic and presented with hemogoin of 9 and hematocrit of 30 and the next day dropped to 7.9 and 26, probably from diluation and when repeat 2 days later which is his baseline, the anemia is chronic and likely from chronic substance use Final diagnosis Cellulitis of the arm opioid use disorder anemia of chronic disease Major depression with SI Time Attestation Discharge Coordination Time (in mins): 35 Quality: Safe Use of Opioids Does Pt have an Active Cancer Diagnosis on the Problem List?: No Quality: Stroke Does the patient have a stroke diagnosis?: No Physical Exam Vital Signs: Vital Signs: Last Vital Signs Temp 98.2 F 10/15/23 07:43 Pulse 57 10/15/23 07:43 Resp 18 10/15/23 07:43 BP 104/62 10/15/23 07:43 Pulse Ox 98 10/15/23 07:43 O2 Del Method Room Air 10/15/23 07:43 BMI result Body Mass Index 27.7 DS: Data Data Completed and Pending Labs on day of discharge: Laboratory Results - last 24 hr 10/14/23 10/15/23 23:36 06:20 Hold Purple Top SEE NOTE Creatinine 0.76 Estim Creat Clear Calc 149.5 Estimated GFR > 60 Random Vancomycin 11.2 L Hepatitis C Ab (EIA) Nonreactive HIV 1&2 Ab/P24 Ag 4thGn Nonreactive Preliminary micro results at discharge 10/13/23 00:37 Blood Culture - Preliminary Blood - Venous No growth after 48 hours. Discharge Plan Discharge Anticipated Discharge Date/Time: 10/15/23 08:47 Patient Disposition: Xfer Psychiatric Hosp Discharge Diagnosis: Cellulitis of the left arm Referrals: Orlando Mahmood III, MD [Primary Care Provider] - 1 Week Discharge Medications: New doxycycline hyclate 100 mg tablet 100 mg PO BID 7 Days Qty: 14 0RF Continued methadone [Methadone Intensol] 10 mg/mL Concentrate 145 mg PO DAILY fluoxetine 40 mg capsule 40 mg PO DAILY clonidine HCl 0.1 mg tablet 0.1 mg PO TID clonazepam 1 mg tablet 1 mg PO TID quetiapine 100 mg tablet 100 - 200 mg PO BEDTIME PRN (Reason: Sleep) baclofen 10 mg tablet 10 mg PO BEDTIME gabapentin 300 mg capsule 300 mg PO BEDTIME gabapentin 600 mg tablet 600 mg PO TID Discharge Orders: Discharge Order (Routine); Ordered 10/17/23 Ordered By: Kal Ruiz Diet: Advance to usual diet Activity on Discharge: As tolerated Stand Alone Forms: Patient Portal Discharge page Care Plan Goals: full healing and recovery from cellulitis Health Concerns: cellulitis of the arm substance use disorder Plan of Treatment: take doxycycline as recommended and follow up with your Doctor in a week, call for appointment Assessment: see above
[2023-10-15 09:10] LABS: Hematocrit 35.4 % (42.0-52.0); Hemoglobin 10.2 g/dl (14.0-18.0); Mean Corpuscular HGB Conc 28.8 g/dl (31.0-36.0); Mean Corpuscular Hemoglobin 18.3 pg (27.0-33.0); Mean Corpuscular Volume 63.4 fL (80.0-98.0); PLT CLUMP 1; Red Blood Count 5.58 X10*6/uL (4.60-5.80); Red Cell Distribution Width 18.8 % (11.0-16.0)
[2023-10-15 09:11] LABS: Platelet Count 226 X10*3/uL (160-400); White Blood Count 6.6 X10*3/uL (4.8-10.8)
[2023-10-15] MEDS: methADONE HCl 20 MG/2 ML ORAL.CONC 145 MG PO (09:12)
[2023-10-15] MEDS: cloNIDine HCL 0.1 MG TABLET PO ×2 (09:13→15:29)
[2023-10-15] MEDS: FLUoxetine HCl 20 MG CAPSULE 40 MG PO (09:13)
[2023-10-15] MEDS: clonazePAM 1 MG TABLET PO ×3 (09:14→20:30)
[2023-10-15] MEDS: Gabapentin 600 MG TABLET PO ×3 (09:14→20:30)
[2023-10-15] MEDS: vancomycin HCL 1,000 MG in 0.9 % Sodium Chloride 250 ML 270 MG IV ×3 (09:15→23:19)
[2023-10-15] MEDS: Nicotine 14 MG PATCH.TD24 TRANSDERMA (09:16)
[2023-10-15] MEDS: 0.9 % Sodium Chloride Flush 3 ML SYRINGE IVFLUSH ×3 (09:18→23:24)
[2023-10-15] MEDS: oxyCODONE HCl Immed Release 5 MG TABLET PO (09:24)
--- NOTE | 2023-10-15 12:28 | MHC.RECOVRN ---
Met with pt to follow up and provide support. Pt laying in bed, awake, alert, engages in conversation. Pt reporting pain is still 9/10 in arm. Pt denies other concerns. Discussed with provider.
--- NOTE | 2023-10-15 13:59 | MHC.CM.PN ---
Addendum entered by Yanna Burden 10/16/23 09:00: PTS DC WAS HELD YESTERDAY CM FOLLOWING FOR CHANGING DC NEEDS Original Note: PT WILL DC HOME TODAY WITH NO SERVICES VIA PRIVATE TRANSPORT
--- NOTE | 2023-10-15 14:18 | P.PNID_ITS ---
Subjective Subjective Date of Service: 10/15/23 Critical Care Time (minutes): 15 Comment: he refues discharge,still c/o pain left arm Objective Data Labs 10/15/23 06:20 10/15/23 06:20 Labs: Laboratory Results - last 24 hr 10/14/23 10/15/23 23:36 06:20 WBC 6.6 RBC 5.58 D Hgb 10.2 L D Hct 35.4 L D MCV 63.4 L MCH 18.3 L MCHC 28.8 L RDW 18.8 H Plt Count 226 D MPV Not Reportable Absolute Nucleated RBC 0.000 Nucleated RBC % (auto) 0.0 Hold Purple Top SEE NOTE Creatinine 0.76 Estim Creat Clear Calc 149.5 Estimated GFR > 60 Random Vancomycin 11.2 L Hepatitis C Ab (EIA) Nonreactive HIV 1&2 Ab/P24 Ag 4thGn Nonreactive Microbiology Microbiology Results: Microbiology 10/13/23 00:37 Blood - Venous Blood Culture - Preliminary No growth after 48 hours. 10/13/23 03:01 Blood - Venous Blood Culture - Final Coag negative Staphylococcus Physical Exam 2 Vital Signs: Vital Signs: Last Vital Signs Temp 98.2 F 10/15/23 07:43 Pulse 57 10/15/23 07:43 Resp 18 10/15/23 07:43 BP 104/62 10/15/23 07:43 Pulse Ox 98 10/15/23 07:43 O2 Del Method Room Air 10/15/23 07:43 BMI result Body Mass Index 27.7 Skin: Other: no signs infection Assessment and Plan Assessment and plan (1) Arm ulcer: Status: Acute Plan xylazine ,cellulitis really resolved left arm If desired could do IV Vancomycin for a week at [facility] but really looks more like infection has resolved but use Benadryl or Calamine on intact skin if surrounding skin itchy Time Spent With Patient Time: Total time managing care of this patient today ____ minutes.
--- NOTE | 2023-10-15 15:19 | PM.PNGS ---
Subjective Subjective Date of Service: 10/15/23 Interval history: Patient requesting 2nd opinion left forearm wound Physical Exam Vital Signs: Vital Signs: Last Vital Signs Temp 98.2 F 10/15/23 07:43 Pulse 57 10/15/23 07:43 Resp 18 10/15/23 07:43 BP 104/62 10/15/23 07:43 Pulse Ox 98 10/15/23 07:43 O2 Del Method Room Air 10/15/23 07:43 BMI result Body Mass Index 27.7 Extrem: Other: Extremely grossly neurovascularly intact. Large eschar and edema of left forearm. No evidence of any fluctuance or abscess. Resolving cellulitis. Objective Data Active Medications Acetaminophen (Acetaminophen 325 Mg Tablet) 650 mg PO Q6H PRN PRN Reason: Pain, Mild (Pain Scale 1-3) Baclofen (Baclofen 10 Mg Tablet) 10 mg PO BEDTIME [facility] Last Admin: 10/14/23 20:46 Dose: 10 mg Documented By: LARS Clonazepam (Clonazepam 1 Mg Tablet) 1 mg PO TID [facility] Last Admin: 10/15/23 09:14 Dose: 1 mg Documented By: SUNIL Clonidine HCl (Clonidine Hcl 0.1 Mg Tablet) 0.1 mg PO TID [facility]; Protocol Last Admin: 10/15/23 09:13 Dose: 0.1 mg Documented By: SUNIL Enoxaparin Sodium (Enoxaparin Sodium 40 Mg/0.4 Ml Syringe) 40 mg SUBCUT Q24H [facility] Last Admin: 10/15/23 03:00 Dose: Not Given Documented By: CIRO Non-Admin Reason: Patient Refused Fluoxetine HCl (Fluoxetine Hcl 20 Mg Capsule) 40 mg PO DAILY [facility] Last Admin: 10/15/23 09:13 Dose: 40 mg Documented By: SUNIL Gabapentin (Gabapentin 300 Mg Capsule) 300 mg PO BEDTIME [facility] Last Admin: 10/14/23 20:49 Dose: Not Given Documented By: LARS Non-Admin Reason: held per Dr. Lilly Gabapentin (Gabapentin 600 Mg Tablet) 600 mg PO TID [facility] Last Admin: 10/15/23 09:14 Dose: 600 mg Documented By: SUNIL Vancomycin HCl 1,000 mg/ (Sodium Chloride) 270 mls @ 270 mls/hr IV Q8H [facility] Last Infusion: 10/15/23 11:10 Dose: Infused Documented By: SUNIL Melatonin (Melatonin 3 Mg Tablet) 6 mg PO BEDTIME PRN PRN Reason: Insomnia Methadone HCl (Methadone Hcl 20 Mg/2 Ml Oral.Conc) 145 mg PO DAILY [facility] Last Admin: 10/15/23 09:12 Dose: 145 mg Documented By: SUNIL Nicotine (Nicotine 14 Mg Patch.Td24) 14 mg TRANSDERMA DAILY [facility] Last Admin: 10/15/23 09:16 Dose: 14 mg Documented By: SUNIL Nicotine Polacrilex (Nicotine Polacrilex 2 Mg Gum) 2 mg BUCCAL Q2H PRN PRN Reason: craving Last Admin: 10/14/23 20:27 Dose: 2 mg Documented By: LARS Ondansetron HCl (Ondansetron Hcl 4 Mg/2 Ml Vial) 4 mg IVPUSH Q8H PRN PRN Reason: Nausea and Vomiting Oxycodone HCl (Oxycodone Hcl Immed Release 5 Mg Tablet) 5 mg PO Q6H PRN PRN Reason: Pain, Severe (Pain Scale 7-10) Last Admin: 10/15/23 09:24 Dose: 5 mg Documented By: SUNIL Pharmacy Consult (Consult Rx Vancomycin Dosing) 1 each MISCELLANE DAILY PRN PRN Reason: Consult order Quetiapine Fumarate (Quetiapine Fumarate 100 Mg Tablet) 100 mg PO BEDTIME PRN PRN Reason: Sleep Sodium Chloride (0.9 % Sodium Chloride Flush 3 Ml Syringe) 3 ml IVFLUSH QSHIFT [facility] Last Admin: 10/15/23 09:18 Dose: 3 ml Documented By: SUNIL Labs 10/15/23 06:20 10/15/23 06:20 Labs: Laboratory Results - last 24 hr 10/14/23 10/15/23 23:36 06:20 MCV 63.4 L MCH 18.3 L MCHC 28.8 L RDW 18.8 H Plt Count 226 D MPV Not Reportable Absolute Nucleated RBC 0.000 Nucleated RBC % (auto) 0.0 Hold Purple Top SEE NOTE Estim Creat Clear Calc 149.5 Estimated GFR > 60 Random Vancomycin 11.2 L Hepatitis C Ab (EIA) Nonreactive HIV 1&2 Ab/P24 Ag 4thGn Nonreactive Microbiology Microbiology Results: Microbiology 10/13/23 00:37 Blood Culture - Preliminary Blood - Venous No growth after 48 hours. Procedures Date of Service Date of Service: 10/15/23 Progress Note: A&P Assessment and plan (1) Arm ulcer: Status: Acute Plan No acute surgical issues at this time. Continue current therapy. Time Spent With Patient Time: Total time managing care of this patient today ____ minutes. Quality Stroke Does the patient have a stroke diagnosis?: No VTE Prior VTE?: No VTE Risk Level:: Medical - moderate - high VTE Device Contraindication: Treatment Not Indicated VTE Drug Contraindication: N/A - Med Ordered
[2023-10-15 15:21] VITALS: BP 100/58; PULSE 54; RESP 18; TEMP 36.2; O2SAT 98
--- NOTE | 2023-10-15 15:57 | HO.PM.IMPN ---
Subjective Subjective Date of Service: 10/15/23 Interval History: f/u on cellulitis of the arm, substance use desorder, calm cooperativ, redness is betterr Physical Exam Vital Signs: Vital Signs: Last Vital Signs Temp 97.2 F 10/15/23 15:21 Pulse 54 10/15/23 15:21 Resp 18 10/15/23 15:21 BP 100/58 L 10/15/23 15:21 Pulse Ox 98 10/15/23 15:21 O2 Del Method Room Air 10/15/23 15:21 BMI result Body Mass Index 27.7 Skin: Other: Objective Data Active Medications Acetaminophen (Acetaminophen 325 Mg Tablet) 650 mg PO Q6H PRN PRN Reason: Pain, Mild (Pain Scale 1-3) Baclofen (Baclofen 10 Mg Tablet) 10 mg PO BEDTIME [facility] Last Admin: 10/14/23 20:46 Dose: 10 mg Documented By: LARS Clonazepam (Clonazepam 1 Mg Tablet) 1 mg PO TID [facility] Last Admin: 10/15/23 15:29 Dose: 1 mg Documented By: SUNIL Clonidine HCl (Clonidine Hcl 0.1 Mg Tablet) 0.1 mg PO TID [facility]; Protocol Last Admin: 10/15/23 15:29 Dose: 0.1 mg Documented By: SUNIL Enoxaparin Sodium (Enoxaparin Sodium 40 Mg/0.4 Ml Syringe) 40 mg SUBCUT Q24H [facility] Last Admin: 10/15/23 03:00 Dose: Not Given Documented By: CIRO Non-Admin Reason: Patient Refused Fluoxetine HCl (Fluoxetine Hcl 20 Mg Capsule) 40 mg PO DAILY [facility] Last Admin: 10/15/23 09:13 Dose: 40 mg Documented By: SUNIL Gabapentin (Gabapentin 300 Mg Capsule) 300 mg PO BEDTIME [facility] Last Admin: 10/14/23 20:49 Dose: Not Given Documented By: LARS Non-Admin Reason: held per Dr. Lilly Gabapentin (Gabapentin 600 Mg Tablet) 600 mg PO TID [facility] Last Admin: 10/15/23 15:29 Dose: 600 mg Documented By: SUNIL Vancomycin HCl 1,000 mg/ (Sodium Chloride) 270 mls @ 270 mls/hr IV Q8H [facility] Last Infusion: 10/15/23 11:10 Dose: Infused Documented By: SUNIL Melatonin (Melatonin 3 Mg Tablet) 6 mg PO BEDTIME PRN PRN Reason: Insomnia Methadone HCl (Methadone Hcl 20 Mg/2 Ml Oral.Conc) 145 mg PO DAILY [facility] Last Admin: 10/15/23 09:12 Dose: 145 mg Documented By: SUNIL Nicotine (Nicotine 14 Mg Patch.Td24) 14 mg TRANSDERMA DAILY [facility] Last Admin: 10/15/23 09:16 Dose: 14 mg Documented By: SUNIL Nicotine Polacrilex (Nicotine Polacrilex 2 Mg Gum) 2 mg BUCCAL Q2H PRN PRN Reason: craving Last Admin: 10/14/23 20:27 Dose: 2 mg Documented By: LARS Ondansetron HCl (Ondansetron Hcl 4 Mg/2 Ml Vial) 4 mg IVPUSH Q8H PRN PRN Reason: Nausea and Vomiting Oxycodone HCl (Oxycodone Hcl Immed Release 5 Mg Tablet) 5 mg PO Q6H PRN PRN Reason: Pain, Severe (Pain Scale 7-10) Last Admin: 10/15/23 09:24 Dose: 5 mg Documented By: SUNIL Pharmacy Consult (Consult Rx Vancomycin Dosing) 1 each MISCELLANE DAILY PRN PRN Reason: Consult order Quetiapine Fumarate (Quetiapine Fumarate 100 Mg Tablet) 100 mg PO BEDTIME PRN PRN Reason: Sleep Sodium Chloride (0.9 % Sodium Chloride Flush 3 Ml Syringe) 3 ml IVFLUSH QSHIFT [facility] Last Admin: 10/15/23 09:18 Dose: 3 ml Documented By: SUNIL Labs 10/15/23 06:20 10/15/23 06:20 Labs: Laboratory Results - last 24 hr 10/14/23 10/15/23 23:36 06:20 MCV 63.4 L MCH 18.3 L MCHC 28.8 L RDW 18.8 H Plt Count 226 D MPV Not Reportable Absolute Nucleated RBC 0.000 Nucleated RBC % (auto) 0.0 Hold Purple Top SEE NOTE Estim Creat Clear Calc 149.5 Estimated GFR > 60 Random Vancomycin 11.2 L Hepatitis C Ab (EIA) Nonreactive HIV 1&2 Ab/P24 Ag 4thGn Nonreactive Microbiology Microbiology Results: Microbiology 10/13/23 00:37 Blood Culture - Preliminary Blood - Venous No growth after 48 hours. Assessment and Plan (1) Polysubstance abuse: Status: Acute (2) Cellulitis of arm: Status: Acute (3) Major depressive disorder, recurrent severe without psychotic features: Status: Acute Plan 33-year-old male with pertinent history of mood disorder, IV drug use disorder, polysubstance use disorder presents to the emergency department for concerns of left forearm infection. Purulent cellulitis of left forearm with abscesses: seen by surgery no indication for drainage, Blood culture is growing 1/2 grama positive cocci = coag neg staph continue Vancomycin given history of MRSA, id following, echo no endocarditis oxycodone for pain Major Depression, home meds including clonidine, seroquel, paxil, gabapentin, Psych consult noed, no change Polysubstance use disorder/OUD (tox screen opioid, cocaine, fentanyl) continue Methadone, clodine for withdrawal, addication med consult following Microcytic anemia, iron deficiency anemia, check occult blood, no indication for transfusion at this time DVT prophylaxis: Lovenox Full code need for inpatient for IV antibiotics (as above), which is not possible in a lesser acute setting. Specialist consult pending Quality Stroke Does the patient have a stroke diagnosis?: No VTE Prior VTE?: No VTE Risk Level:: Medical - moderate - high VTE Device Contraindication: Treatment Not Indicated VTE Drug Contraindication: N/A - Med Ordered
[2023-10-15] MEDS: Nicotine Polacrilex 2 MG GUM BUCCAL (17:45)
[2023-10-15] MEDS: oxyCODONE HCl Immed Release 5 MG TABLET 10 MG PO (17:48)
[2023-10-15 19:10] VITALS: BP 103/58; PULSE 51; RESP 18; TEMP 36; O2SAT 98
[2023-10-15] MEDS: Baclofen 10 MG TABLET PO (20:30)
[2023-10-15] MEDS: Gabapentin 300 MG CAPSULE PO (20:30)
[2023-10-15] MEDS: Enoxaparin Sodium 40 MG/0.4 ML SYRINGE SUBCUT (23:22)
[2023-10-16] MEDS: oxyCODONE HCl Immed Release 5 MG TABLET 10 MG PO ×4 (00:21→22:41)
[2023-10-16] MEDS: QUEtiapine Fumarate 100 MG TABLET PO (00:21)
[2023-10-16] MEDS: Nicotine Polacrilex 2 MG GUM BUCCAL ×3 (00:22→18:01)
[2023-10-16 03:18] VITALS: BP 104/61; PULSE 51; RESP 16; TEMP 36.2
[2023-10-16 06:31] LABS: Creatinine Clr Calc Pharmacy 151.5; Estimated Glomerular Filt Rate > 60; Vancomycin Trough 13.6 mcg/mL (10.0-20.0)
--- NOTE | 2023-10-16 06:42 | HE.PHANOTE ---
Vancomycin Dosing Level 13.6 today. Continue current regimen. Next level 10/16 @ 0600. Sg GarciaD
[2023-10-16 08:00] VITALS: BP 97/59; PULSE 51; RESP 18; TEMP 36; O2SAT 97
[2023-10-16] MEDS: Nicotine 14 MG PATCH.TD24 TRANSDERMA (09:34)
[2023-10-16] MEDS: 0.9 % Sodium Chloride Flush 3 ML SYRINGE IVFLUSH ×3 (09:35→21:50)
[2023-10-16] MEDS: methADONE HCl 20 MG/2 ML ORAL.CONC 145 MG PO (09:36)
[2023-10-16] MEDS: clonazePAM 1 MG TABLET PO ×3 (09:37→21:50)
[2023-10-16] MEDS: Doxycycline Monohydrate 100 MG CAPSULE PO ×2 (09:37→21:50)
[2023-10-16] MEDS: FLUoxetine HCl 20 MG CAPSULE 40 MG PO (09:37)
[2023-10-16] MEDS: Gabapentin 600 MG TABLET PO ×3 (09:38→21:50)
--- NOTE | 2023-10-16 09:46 | PC.NURSE ---
Spoke with patient about discharge home,patient states he does not want to go home because he will use drugs again,case management notified ,will discuss it with patient
--- NOTE | 2023-10-16 10:29 | MHC.CM.PN ---
CM INFORMED BY RN THAT PT STATING HE DOES NOT WANT TO RETURN HOME HE IS WORRIED HE WILL USE AGAIN. PT REQUESTING TO GO TO [facility] CM INFORMED HIM HE DID NOT HAVE A SKILL TO GO TO A SNF BUT COULD SPEAK TO [facility] ABOUT SA TREATMENT HE REPORTS HE WOULD LIKE TO REVIEW OPTIONS FOR SA TREATMENT MESSAGE SENT TO [facility], SHE WILL SEE PT WHEN AVAILABLE
--- NOTE | 2023-10-16 13:32 | MHC.RECOVRN ---
Met with pt in 359 to follow up regarding discharge planning. Pt laying in bed, awake, alert, easily engages in conversation. Discussed different levels of care, including CSS. Pt aware CSS placement would not be possible today, however, referrals could be placed and pt could follow up from home. At this point pt reported SI with a plan to overdose. Pt denies questions or concerns for t/w. and RN notified.
--- NOTE | 2023-10-16 13:57 | P.PNIM_ITS ---
Subjective Subjective Date of Service: 10/16/23 Interval History: f/u on cellulitis of the arm, substance use desorder, he is now saying he is suicidal Physical Exam 2 Vital Signs: Vital Signs: Last Vital Signs Temp 96.8 F 10/16/23 08:00 Pulse 51 10/16/23 08:00 Resp 18 10/16/23 08:00 BP 97/59 L 10/16/23 08:00 Pulse Ox 97 10/16/23 08:00 O2 Del Method Room Air 10/16/23 08:00 BMI result Body Mass Index 27.7 General: AO X 3, no acute distress Resp: CTA bilateral CVS: S1,S2,RRR GI: +BS, NT, no distention Skin: No rash Neuro: motor grossly intact Psych: appropriate affect Skin: Other: Objective Data Active Medications Acetaminophen (Acetaminophen 325 Mg Tablet) 650 mg PO Q6H PRN PRN Reason: Pain, Mild (Pain Scale 1-3) Baclofen (Baclofen 10 Mg Tablet) 10 mg PO BEDTIME [facility] Last Admin: 10/15/23 20:30 Dose: 10 mg Documented By: SAUL Clonazepam (Clonazepam 1 Mg Tablet) 1 mg PO TID [facility] Last Admin: 10/16/23 09:37 Dose: 1 mg Documented By: LARS Clonidine HCl (Clonidine Hcl 0.1 Mg Tablet) 0.1 mg PO TID [facility]; Protocol Last Admin: 10/16/23 09:38 Dose: Not Given Documented By: LARS Non-Admin Reason: low hr Doxycycline Monohydrate (Doxycycline Monohydrate 100 Mg Capsule) 100 mg PO Q12H [facility] Last Admin: 10/16/23 09:37 Dose: 100 mg Documented By: LARS Enoxaparin Sodium (Enoxaparin Sodium 40 Mg/0.4 Ml Syringe) 40 mg SUBCUT Q24H [facility] Last Admin: 10/15/23 23:22 Dose: 40 mg Documented By: SAUL Comments: PT WAS SLEEPING he was only willing to take if he has any other medications together Fluoxetine HCl (Fluoxetine Hcl 20 Mg Capsule) 40 mg PO DAILY [facility] Last Admin: 10/16/23 09:37 Dose: 40 mg Documented By: LARS Gabapentin (Gabapentin 300 Mg Capsule) 300 mg PO BEDTIME [facility] Last Admin: 10/15/23 20:30 Dose: 300 mg Documented By: SAUL Gabapentin (Gabapentin 600 Mg Tablet) 600 mg PO TID [facility] Last Admin: 10/16/23 09:38 Dose: 600 mg Documented By: LARS Melatonin (Melatonin 3 Mg Tablet) 6 mg PO BEDTIME PRN PRN Reason: Insomnia Methadone HCl (Methadone Hcl 20 Mg/2 Ml Oral.Conc) 145 mg PO DAILY [facility] Last Admin: 10/16/23 09:36 Dose: 145 mg Documented By: LARS Nicotine (Nicotine 14 Mg Patch.Td24) 14 mg TRANSDERMA DAILY [facility] Last Admin: 10/16/23 09:34 Dose: 14 mg Documented By: LARS Nicotine Polacrilex (Nicotine Polacrilex 2 Mg Gum) 2 mg BUCCAL Q2H PRN PRN Reason: craving Last Admin: 10/16/23 00:22 Dose: 2 mg Documented By: SAUL Ondansetron HCl (Ondansetron Hcl 4 Mg/2 Ml Vial) 4 mg IVPUSH Q8H PRN PRN Reason: Nausea and Vomiting Oxycodone HCl (Oxycodone Hcl Immed Release 5 Mg Tablet) 10 mg PO Q6H PRN PRN Reason: Pain, Severe (Pain Scale 7-10) Last Admin: 10/16/23 09:49 Dose: 10 mg Documented By: LARS Quetiapine Fumarate (Quetiapine Fumarate 100 Mg Tablet) 100 mg PO BEDTIME PRN PRN Reason: Sleep Last Admin: 10/16/23 00:21 Dose: 100 mg Documented By: SAUL Sodium Chloride (0.9 % Sodium Chloride Flush 3 Ml Syringe) 3 ml IVFLUSH QSHIFT [facility] Last Admin: 10/16/23 09:35 Dose: 3 ml Documented By: LARS Labs 10/15/23 06:20 10/16/23 05:48 Labs: Laboratory Results - last 24 hr 10/16/23 05:48 Estim Creat Clear Calc 151.5 Estimated GFR > 60 Vancomycin Trough 13.6 Assessment and Plan (1) Polysubstance abuse: Status: Acute (2) Cellulitis of arm: Status: Acute (3) Major depressive disorder, recurrent severe without psychotic features: Status: Acute Plan 33-year-old male with pertinent history of mood disorder, IV drug use disorder, polysubstance use disorder presents to the emergency department for concerns of left forearm infection. Crusting scabs with surounding erythem from Xylazine injection, there is no abscess on imaging or visualization and asssessed twice by surgery with no indication for intervtion, Blood culture is growing 1/2 grama positive cocci = coag neg staph Changed Vanco to PO Doxy echo no endocarditis oxycodone for pain Major Depression, home meds including clonidine, seroquel, paxil, gabapentin, Psych consult noed, no change now c/o SI--sitter consult and CARE consult tomorrow Polysubstance use disorder/OUD (tox screen opioid, cocaine, fentanyl) continue Methadone, clodine for withdrawal, addication med consult following Microcytic anemia, iron deficiency anemia, check occult blood, no indication for transfusion at this time DVT prophylaxis: Lovenox Full code need for inpatient for IV antibiotics (as above), which is not possible in a lesser acute setting. Specialist consult pending Quality Stroke Does the patient have a stroke diagnosis?: No VTE Prior VTE?: No VTE Risk Level:: Medical - moderate - high VTE Device Contraindication: Treatment Not Indicated VTE Drug Contraindication: N/A - Med Ordered
[2023-10-16 15:28] VITALS: BP 107/68; PULSE 53; RESP 18; TEMP 36.1; O2SAT 97
[2023-10-16] MEDS: cloNIDine HCL 0.1 MG TABLET PO ×2 (15:45→21:50)
[2023-10-16 20:00] VITALS: BP 102/61; PULSE 62; RESP 18; TEMP 36; O2SAT 97
[2023-10-16] MEDS: Enoxaparin Sodium 40 MG/0.4 ML SYRINGE SUBCUT (21:50)
[2023-10-16] MEDS: Gabapentin 300 MG CAPSULE PO (21:50)
[2023-10-16] MEDS: Baclofen 10 MG TABLET PO (21:50)
[2023-10-16 23:41] VITALS: RESP 16
--- NOTE | 2023-10-17 | ECG_ITS ---
Test Reason : qtc Blood Pressure : / mmHG Vent. Rate : 049 BPM Atrial Rate : 049 BPM P-R Int : 154 ms QRS Dur : 078 ms QT Int : 458 ms P-R-T Axes : 068 042 041 degrees QTc Int : 413 ms Sinus bradycardia Nonspecific ST abnormality Abnormal ECG When compared with ECG of 13-FEB-2023 19:44, Vent. rate has decreased BY 24 BPM Referred By: [facility] Electronically Signed By:CRISSY GONZALES
[2023-10-17 00:15] VITALS: RESP 14
[2023-10-17 03:20] VITALS: BP 98/51; PULSE 51; RESP 12; TEMP 36.4; O2SAT 95
[2023-10-17 07:29] VITALS: BP 91/53; PULSE 55; RESP 16; TEMP 36.2; O2SAT 96
[2023-10-17 08:40] LABS: Creatinine Clr Calc Pharmacy 136.9; Estimated Glomerular Filt Rate > 60
[2023-10-17] MEDS: FLUoxetine HCl 20 MG CAPSULE 40 MG PO (08:58)
[2023-10-17] MEDS: cloNIDine HCL 0.1 MG TABLET PO ×2 (08:58→14:14)
[2023-10-17] MEDS: Nicotine 14 MG PATCH.TD24 TRANSDERMA (08:58)
[2023-10-17] MEDS: clonazePAM 1 MG TABLET PO ×2 (08:58→14:14)
[2023-10-17] MEDS: Gabapentin 600 MG TABLET PO ×2 (08:58→14:14)
[2023-10-17] MEDS: Doxycycline Monohydrate 100 MG CAPSULE PO (08:58)
[2023-10-17] MEDS: oxyCODONE HCl Immed Release 5 MG TABLET 10 MG PO ×2 (09:04→15:11)
[2023-10-17] MEDS: Nicotine Polacrilex 2 MG GUM BUCCAL ×2 (09:04→12:23)
[2023-10-17] MEDS: 0.9 % Sodium Chloride Flush 3 ML SYRINGE IVFLUSH ×2 (09:51→15:12)
[2023-10-17] MEDS: methADONE HCl 20 MG/2 ML ORAL.CONC 145 MG PO (09:52)
--- NOTE | 2023-10-17 10:10 | MHC.CM.PN ---
Addendum entered by Anny Emerson RN 10/17/23 15:45: Patient to be admitted to . Original Note: EMR reviewed. Per MD rounds patient will require inpatient psych admission, CARE team to coordinate.
--- NOTE | 2023-10-17 10:23 | HO.PM.IMPN ---
Subjective Subjective Date of Service: 10/17/23 Physical Exam Vital Signs: Vital Signs: Last Vital Signs Temp 97.2 F 10/17/23 07:29 Pulse 55 10/17/23 07:29 Resp 16 10/17/23 07:29 BP 91/53 L 10/17/23 07:29 Pulse Ox 96 10/17/23 07:29 O2 Del Method Room Air 10/17/23 07:29 BMI result Body Mass Index 27.7 Objective Data Active Medications Acetaminophen (Acetaminophen 325 Mg Tablet) 650 mg PO Q6H PRN PRN Reason: Pain, Mild (Pain Scale 1-3) Baclofen (Baclofen 10 Mg Tablet) 10 mg PO BEDTIME [facility] Last Admin: 10/16/23 21:50 Dose: 10 mg Documented By: EDMOND Clonazepam (Clonazepam 1 Mg Tablet) 1 mg PO TID [facility] Last Admin: 10/17/23 08:58 Dose: 1 mg Documented By: CASSIUS Clonidine HCl (Clonidine Hcl 0.1 Mg Tablet) 0.1 mg PO TID [facility]; Protocol Last Admin: 10/17/23 08:58 Dose: 0.1 mg Documented By: CASSIUS Doxycycline Monohydrate (Doxycycline Monohydrate 100 Mg Capsule) 100 mg PO Q12H [facility] Last Admin: 10/17/23 08:58 Dose: 100 mg Documented By: CASSIUS Enoxaparin Sodium (Enoxaparin Sodium 40 Mg/0.4 Ml Syringe) 40 mg SUBCUT Q24H [facility] Last Admin: 10/16/23 21:50 Dose: 40 mg Documented By: EDMOND Fluoxetine HCl (Fluoxetine Hcl 20 Mg Capsule) 40 mg PO DAILY [facility] Last Admin: 10/17/23 08:58 Dose: 40 mg Documented By: CASSIUS Gabapentin (Gabapentin 300 Mg Capsule) 300 mg PO BEDTIME [facility] Last Admin: 10/16/23 21:50 Dose: 300 mg Documented By: EDMOND Gabapentin (Gabapentin 600 Mg Tablet) 600 mg PO TID [facility] Last Admin: 10/17/23 08:58 Dose: 600 mg Documented By: CASSIUS Melatonin (Melatonin 3 Mg Tablet) 6 mg PO BEDTIME PRN PRN Reason: Insomnia Methadone HCl (Methadone Hcl 20 Mg/2 Ml Oral.Conc) 145 mg PO DAILY [facility] Last Admin: 10/17/23 09:52 Dose: 145 mg Documented By: CASSIUS Nicotine (Nicotine 14 Mg Patch.Td24) 14 mg TRANSDERMA DAILY [facility] Last Admin: 10/17/23 08:58 Dose: 14 mg Documented By: CASSIUS Nicotine Polacrilex (Nicotine Polacrilex 2 Mg Gum) 2 mg BUCCAL Q2H PRN PRN Reason: craving Last Admin: 10/17/23 09:04 Dose: 2 mg Documented By: CASSIUS Ondansetron HCl (Ondansetron Hcl 4 Mg/2 Ml Vial) 4 mg IVPUSH Q8H PRN PRN Reason: Nausea and Vomiting Oxycodone HCl (Oxycodone Hcl Immed Release 5 Mg Tablet) 10 mg PO Q6H PRN PRN Reason: Pain, Severe (Pain Scale 7-10) Last Admin: 10/17/23 09:04 Dose: 10 mg Documented By: CASSIUS Quetiapine Fumarate (Quetiapine Fumarate 100 Mg Tablet) 100 mg PO BEDTIME PRN PRN Reason: Sleep Last Admin: 10/16/23 00:21 Dose: 100 mg Documented By: SAUL Sodium Chloride (0.9 % Sodium Chloride Flush 3 Ml Syringe) 3 ml IVFLUSH QSHIFT [facility] Last Admin: 10/17/23 09:51 Dose: 3 ml Documented By: CASSIUS Labs 10/15/23 06:20 10/17/23 07:52 Labs: Laboratory Results - last 24 hr 10/17/23 07:52 Estim Creat Clear Calc 136.9 Estimated GFR > 60 Vancomycin Trough 2.0 L Assessment and Plan (1) Polysubstance abuse: Status: Acute (2) Cellulitis of arm: Status: Acute (3) Major depressive disorder, recurrent severe without psychotic features: Status: Acute Plan 33-year-old male with pertinent history of mood disorder, IV drug use disorder, polysubstance use disorder presents to the emergency department for concerns of left forearm infection. Crusting scabs with surounding erythem from Xylazine injection, there is no abscess on imaging or visualization and asssessed twice by surgery with no indication for intervtion, Blood culture is growing 1/2 grama positive cocci = coag neg staph Changed Vanco to PO Doxy for 7 more days per id echo no endocarditis oxycodone for pain Major Depression, home meds including clonidine, seroquel, paxil, gabapentin, Psych consult noed, no change now c/o SI--sitter consult and CARE is recommending Psych admission Polysubstance use disorder/OUD (tox screen opioid, cocaine, fentanyl) continue Methadone, clodine for withdrawal, addication med following Microcytic anemia, iron deficiency anemia, check occult blood, no indication for transfusion at this time Low BPs assymptomatic, runs chronically low DVT prophylaxis: Lovenox Full code need for inpatient for IV antibiotics (as above), which is not possible in a lesser acute setting. Specialist consult pending Quality Stroke Does the patient have a stroke diagnosis?: No VTE Prior VTE?: No VTE Risk Level:: Medical - moderate - high VTE Device Contraindication: Treatment Not Indicated VTE Drug Contraindication: N/A - Med Ordered
--- NOTE | 2023-10-17 10:56 | MHC.CARE ---
Pt assessed by CARE Team and disposition was IPLOC.
--- NOTE | 2023-10-17 11:00 | HO.WOUND ---
Wound Consult: Initial 33yr old?M admitted to [facility] on 10/12 - See progress notes and H&P for detailed history.? Wound consult placed for Left Arm wounds secondary to IVDU injection site .? Patient agreeable to assessment and photo documentation.? Patient reports he has injected into the left arm wound site but that even when he chooses new sites he feels the left arm wound worsens. We discussed over all wound healing and in addition to wound secondary to Xylazine. He reports understanding. We discussed [employer] for wound supplies and treatment. He reports she is aware of [employer] and has used them in the past but most recently did not report the wound on his arm. We discussed treating wounds when they arrive and being easier for him to manage then allowing them to progress - he reports understanding. Left Forearm Left Forearm posterior side Etiology: Ulceration secondary to IVDU injection Measurements: Anterior site: 12cm x6cm x 0.3cm Posterior site: 4cm x 4cm x 0.2 with intact skin bridges inplace Wound Bed: Appear full and partial thickness tissue loss - difficult to assess wound bed due to adherent scab Drainage / Odor: None noted at the time of my assessment Edges: ? irregular Corinne wound: ?red erythema with firm induration, No Fluctuance noted Pain: pain reported Goals of Treatment: ? Moist wound healing with Hydrocolloid Recommendations: 1. Left Forearm - Cleanse with NS, pat dry. Cover with Hydrocolloid dressing for moist wound environment. Change every other day - every 3rd day. Inpatient wound nurse will follow for dressing change. Nutrition following Re-consult wound care Nurse for wound deterioration or wound changes
[2023-10-17] MEDS: Nicotine Polacrilex 2 MG GUM 4 MG BUCCAL (14:14)
[2023-10-17 15:28] LABS: COVID-19 Test Negative (Negative); IDNOW Serial# 152EDE1D
[2023-10-17 15:56] VITALS: BP 89/54; PULSE 54; RESP 16; TEMP 36.2; O2SAT 98
[2023-10-17 16:42] VITALS: BP 92/60
[2023-10-17 19:05] VITALS: BP 95/52; PULSE 54; RESP 18; TEMP 36.4; O2SAT 97
== END 2023-10-17 20:35 | DRG 383 ==
LOC: HO.ED 10-13 03:00 → HO.EDOVER 10-13 03:07 → HO.S3 10-14 14:31
PROVIDERS: Internal Medicine; Admitting Provider Student in an Organized Health Care Education/Training Program; Emergency Provider Internal Medicine; PCP Internal Medicine; Visit Provider Internal Medicine
DX: L03.114 Cellulitis of left upper limb (principal); F33.2 Major depressive disorder, recurrent severe without psychotic features; D50.9 Iron deficiency anemia, unspecified; F11.20 Opioid dependence, uncomplicated; F19.10 Other psychoactive substance abuse, uncomplicated; B95.7 Other staphylococcus as the cause of diseases classified elsewhere; Z20.822 Contact with and (suspected) exposure to COVID-19; L02.414 Cutaneous abscess of left upper limb; Z86.14 Personal history of Methicillin resistant Staphylococcus aureus infection; Z79.899 Other long term (current) drug therapy
CPT/HCPCS: 36415; 73201; 80048; 80053; 80202; 80307; 82565; 83540; 83605; 85025; 85027; 86803; 87040; 87147; 87205; 87389; 87635; 93005; 93306; 99285; J1650; J2543; J3370; J3371; J7120; Q9967; S9485

== ENCOUNTER 2023-10-13 02:48 | Outpatient (BNV) | payer OTHER, SELFPAY | END 2023-10-14 07:00 | PROVIDERS: Admitting Provider Student in an Organized Health Care Education/Training Program; Emergency Provider Internal Medicine; PCP Internal Medicine; Visit Provider Internal Medicine Cardiovascular Disease | DX: R78.81 Bacteremia (principal) | CPT/HCPCS: 93306 ==

== ENCOUNTER 2023-10-13 02:48 | Outpatient (BNV) | payer OTHER, SELFPAY | END 2023-10-17 15:29 | PROVIDERS: Admitting Provider Student in an Organized Health Care Education/Training Program; Emergency Provider Internal Medicine; PCP Internal Medicine; Visit Provider Internal Medicine | DX: R00.1 Bradycardia, unspecified (principal) | CPT/HCPCS: 93010 ==

== ENCOUNTER → 2023-10-13 02:48 | Outpatient (BNV) | payer OTHER, SELFPAY | PROVIDERS: Admitting Provider Student in an Organized Health Care Education/Training Program; Emergency Provider Internal Medicine; PCP Internal Medicine; Visit Provider Psychiatry & Neurology Psychiatry | DX: F33.2 Major depressive disorder, recurrent severe without psychotic features (principal); F19.10 Other psychoactive substance abuse, uncomplicated; L03.114 Cellulitis of left upper limb | CPT/HCPCS: 99222; 99233 ==

== ENCOUNTER → 2023-10-13 02:48 | Outpatient (BNV) | payer OTHER, SELFPAY | PROVIDERS: Admitting Provider Student in an Organized Health Care Education/Training Program; Emergency Provider Internal Medicine; PCP Internal Medicine; Visit Provider Surgery | DX: L98.499 Non-pressure chronic ulcer of skin of other sites with unspecified severity (principal) | CPT/HCPCS: 99222; 99231 ==

== ENCOUNTER → 2023-10-13 02:48 | Outpatient (BNV) | payer OTHER, SELFPAY | PROVIDERS: Admitting Provider Student in an Organized Health Care Education/Training Program; Emergency Provider Internal Medicine; PCP Internal Medicine; Visit Provider Student in an Organized Health Care Education/Training Program | DX: L03.114 Cellulitis of left upper limb (principal); F19.10 Other psychoactive substance abuse, uncomplicated; F33.2 Major depressive disorder, recurrent severe without psychotic features | CPT/HCPCS: 99222; 99232; 99239; 99499 ==

== ENCOUNTER → 2023-10-13 02:48 | Outpatient (BNV) | payer OTHER, SELFPAY | PROVIDERS: Admitting Provider Student in an Organized Health Care Education/Training Program; Emergency Provider Internal Medicine; PCP Internal Medicine; Visit Provider Internal Medicine | DX: F19.10 Other psychoactive substance abuse, uncomplicated (principal); L03.114 Cellulitis of left upper limb; L98.499 Non-pressure chronic ulcer of skin of other sites with unspecified severity | CPT/HCPCS: 99222; 99232 ==

== ENCOUNTER 2023-10-17 21:46 | Inpatient (IN) | payer OTHER, SELFPAY ==
[2023-10-17 23:15] VITALS: BP 98/58; PULSE 58; RESP 16; TEMP 36.4; O2SAT 99
[2023-10-18 00:28] VITALS: BMI 27.1
[2023-10-18] MEDS: Doxycycline Monohydrate 100 MG CAPSULE PO ×3 (00:53→21:36)
[2023-10-18] MEDS: oxyCODONE HCl Immed Release 5 MG TABLET 10 MG PO ×4 (00:54→21:37)
[2023-10-18] MEDS: clonazePAM 1 MG TABLET PO ×3 (00:54→21:36)
[2023-10-18] MEDS: Baclofen 10 MG TABLET PO ×2 (00:54→21:37)
[2023-10-18] MEDS: cloNIDine HCL 0.1 MG TABLET PO ×3 (00:55→21:37)
--- NOTE | 2023-10-18 04:21 | PC.ADMIT ---
Andrey Monk is a 33yo male admitted from medical unit, [facility] on CV for treatment of MDD and SI. He was reported to have made suicidal statement while is receiving treatment for cellulitis/bateracemia on medical unit at [facility]. He states if he is to be discharged he will overdose intentionally to end his life. He was medically cleared and discharged from medical unit before placed on admission to [facility]. Pt mom was concerned that Pt has been increasingly depressed, suicidal and not caring for himself. He is alert and oriented X4, mood is depressed and affect was flat, calm and cooperative during admission process. He states that I feel hopeless and cocaine use have affected my brain . He endorses SI with no plan but denies HI/AVH. Skin check done, dressed wound on left fore arm infected with cellulitis, Tox sreen was positive for cocaine and opioids. He did not sign release of information for PCP, therapist and Psychiatric. Treatment plan and safety tools initiated but yet to be signed.
[2023-10-18 07:45] VITALS: BP 76/42; PULSE 48; RESP 16; TEMP 36.4; O2SAT 98
[2023-10-18] MEDS: Nicotine 14 MG PATCH.TD24 TRANSDERMA (08:35)
[2023-10-18] MEDS: FLUoxetine HCl 20 MG CAPSULE 40 MG PO (08:35)
[2023-10-18] MEDS: Gabapentin 600 MG TABLET PO ×3 (08:35→21:38)
[2023-10-18 08:46] LABS: Alanine Aminotransferase 23 U/L (0-40); Albumin Level 3.7 g/dL (3.5-5.0); Alkaline Phosphatase 63 U/L (39-117); Anion Gap 14 (12-20); Aspartate Amino Transferase 27 U/L (5-37); Bilirubin Total 0.2 mg/dL (0.0-1.0); Blood Urea Nitrogen 19 mg/dL (9-16); Calcium 9.1 mg/dL (8.4-10.2); Carbon Dioxide 21 mmol/L (22-29); Chloride 111 mmol/L (96-108); Cholesterol 147 mg/dL (<200); Creatinine Clr Calc Pharmacy 138.2; Estimated Glomerular Filt Rate > 60; Glucose Fasting 96 mg/dL (60-99); HDL Cholesterol 25 mg/dL (>40); LDL Cholesterol Calculated 96 mg/dL (<100); Potassium 4.9 mmol/L (3.3-5.1); Sodium 141 mmol/L (135-145); Total Protein 7.1 g/dL (6.5-8.0); Triglycerides 134 mg/dL (<150)
--- NOTE | 2023-10-18 08:58 | HO.PSYADMNOT ---
HPI Date of Service: 10/18/23 Chief Complaint: Major Depression Sources of Information: patient interviewed, chart reviewed and crisis/core team assessment reviewed HPI Subjective Notes: Wilks Warning and Conditional Voluntary Narrative: Patient is a 33 year old male with hx of MDD, PTSD, opioid use d/o and cocaine use d/o was admitted from medical unit d/t suicidal ideation secondary to increased depressive symptoms. Per crisis report, pt presented to [facility] on 10/13/23 secondary to medical complaints of cellulitis. On 10/17/23, pt was referred to care team d/t suicidal ideation with plan to overdose. Pt was last admitted psychiatrically 07/2022 at [facility]. During admission assessment, pt presents calm and cooperative. Pt reports feeling depressed ; pt stated, I'm feeling depressed because of different anniversaries this time of year. My dad passed in September 2017, my fiance in October, 5 years ago. I still can't get over it. The drug addiction doesn't help. I wasn't taking my meds like I was supposed to . Pt reports he is not interested in going to a program; I'm just interested in getting my meds regulated, going to an IOP and getting a therapist . When asked how he plans on staying sober; pt stated, I've tried detox's before and they don't help. NA meetings are more helpful, so I'm going to do that and see a therapist . Pt reports he has been using 3 grams of cocaine and 10 bags of heroin daily ; pt reports he got my wound on my arm from injecting Xylazine, it eats at your skin . Pt reports suicidal ideation with plan to overdose on substances. pt denies HI/VH/AH. Pt reports his biggest motivator is his mother; pt stated, she's a good motivator to keep me alive and going . Past Psychiatric History: history of hospitalization at [facility] and [facility]. pt reports hx of multiple detox programs Flo Strickland- psychiatric provider Medical Evaluation Reviewed: Yes [facility] Medical History (Updated 10/18/23 @ 14:46 by Arlene Reina NP) Arm ulcer MRSA bacteremia Suicidal ideation Depression Diabetes Cocaine use with cocaine-induced disorder Opiate dependence, continuous Major depressive disorder, recurrent severe without psychotic features Depression Anxiety IVDU (intravenous drug user) Diabetes Asthma Family History: Pt reports hx of substance abuse. Social History: Lives with mother, step father and brother. unemployed. Substance History: pt reports using 3 grams of cocaine a day; 10 bags of heroin daily. Trauma History: yes Diagnostics Vital Signs (24Hr): Vital Signs - 24 hr 10/17/23 23:15 10/18/23 07:45 Temperature 97.5 F 97.5 F Pulse Rate 58 48 L Respiratory Rate 16 16 Blood Pressure 98/58 L 76/42 L Pulse Oximetry 99 98 Oxygen Delivery Method Room Air Room Air BMI result Body Mass Index 27.1 Labs 10/18/23 08:08 Labs: Laboratory Results - last 48 hr 10/18/23 08:08 Sodium 141 Potassium 4.9 D Chloride 111 H Carbon Dioxide 21 L Anion Gap 14 BUN 19 H Creatinine 0.76 Estim Creat Clear Calc 138.2 Estimated GFR > 60 Fasting Glucose 96 Calcium 9.1 Total Bilirubin 0.2 AST 27 ALT 23 Alkaline Phosphatase 63 Total Protein 7.1 Albumin 3.7 Triglycerides 134 Cholesterol 147 LDL Cholesterol, Calc 96 HDL Cholesterol 25 L Meds/Allergies Meds Home Medications Medication Instructions Recorded Confirmed Type baclofen 10 mg tablet 10 mg PO BEDTIME cocaine withdrawal 10/13/23 10/13/23 History clonazepam 1 mg tablet 1 mg PO TID 10/13/23 10/13/23 History clonidine HCl 0.1 mg tablet 0.1 mg PO TID 10/13/23 10/13/23 History fluoxetine 40 mg capsule 40 mg PO DAILY 10/13/23 10/13/23 History gabapentin 300 mg capsule 300 mg PO BEDTIME 10/13/23 10/13/23 History gabapentin 600 mg tablet 600 mg PO TID 10/13/23 10/13/23 History methadone 10 mg/mL oral 145 mg PO DAILY 10/13/23 10/13/23 History concentrate (Methadone Intensol) quetiapine 100 mg tablet 100 - 200 mg PO BEDTIME PRN Sleep 10/13/23 10/13/23 History Allergies Allergies Allergy/AdvReac Type Severity Reaction Status Date / Time Pertussis Vaccines Allergy Mild HIVES Verified 02/13/23 19:58 [PERTUSSIS VACCINES] Mental Status Exam Mental Status Exam Narrative: Pt is alert and oriented; behavior is cooperative and calm; dressed in casual attire; mood is described as depressed ; eye contact appropriate; Speech is normal rate, volume and prosody and not pressured; thought process is organized and goal directed; Thought content is on tx; otherwise pertinent to relevant topics and without any delusional content, paranoid ideations or grandiosity; denies HI/VH/AH. Assessment & Plan Assessment & Plan (1) Major depressive disorder, recurrent severe without psychotic features: Status: Acute Code(s): F33.2 - Major depressive disorder, recurrent severe without psychotic features (2) Opioid use disorder: Status: Acute Code(s): F11.90 - Opioid use, unspecified, uncomplicated (3) Cocaine use disorder: Status: Acute Code(s): F14.10 - Cocaine abuse, uncomplicated Plan Patient is a 33 year old male with hx of MDD, PTSD, opioid use d/o and cocaine use d/o was admitted from medical unit d/t suicidal ideation secondary to increased depressive symptoms. Plan: CV 15 minute safety checks Consult to wound care for arm continue home medications; Clonidine and klonopin decreased from TID to BID d/t pt's low BP and recent substance abuse; pt aware. Consult to addiction medication; pt interested in recovery engineer Referral to [facility] Referral to outpatient therapist. discharge planning Patient educated on: diagnosis, medication risk/benefits, substance abuse and therapeutic strategies Informed Consent: understands Reason for continued inpatient stay Substantial Risk for: harm to self and med/psych decompensation Statement Statement: I have reviewed the history and physical and performed a pertinent examination on my patient. No changes have occurred unless specified. If the History and Physical was not performed prior to admission, the Hospitalist's service will be consulted for completing the admission physical. Time Spent With Patient Time: Total time managing care of this patient today _60___ minutes.
[2023-10-18] MEDS: methADONE HCl 20 MG/2 ML ORAL.CONC 145 MG PO (09:09)
[2023-10-18 09:13] VITALS: BP 124/64; PULSE 61; RESP 16
[2023-10-18] MEDS: Nicotine Polacrilex 2 MG GUM 4 MG BUCCAL ×3 (09:31→18:28)
--- NOTE | 2023-10-18 15:51 | HO.WOUND ---
Wound Consult: Initial 33yr old?M admitted to [facility] on 10/12 - See progress notes and H&P for detailed history. Recent transfer to Behavioral Health Inpatient Unit. Wound consult Follow up for Left Arm wounds secondary to IVDU injection site. Direct care nurse reports anterior portion of the dressing is not longer staying in place. Patient agreeable to assessment and photo documentation.? Hydrocoloid dressing removed - improved wound bed - see below for details. Will switch to moist wound healing with xeroform due to patient showering and location of wound and poor hydrocolloid adherence. Will monitor for effectiveness. The Posterior site photo was not uploaded but significant improvement noted will continue with Hydrocolloid dressing. Left Forearm 10/17/23 10/18/23 - Improved wound bed Left Forearm posterior side 10/17/23 - No updated photo today but significantly improved wound beds - continue with Hydrocolloid Etiology: Ulceration secondary to IVDU injection Wound Bed: Appear full and partial thickness tissue loss - improved wound bed moist wound bed with areas of pink viable tissue and areas with yellow slough Drainage / Odor: creamy moist serosang drainage noted with dressing removal Edges: ? irregular Corinne wound: ?red erythema with firm induration, No Fluctuance noted Pain: pain reported Goals of Treatment: ? Moist wound healing with Hydrocolloid Recommendations: 1. Left Forearm Posterior Site - Cleanse with NS, pat dry. Cover with Hydrocolloid dressing for moist wound environment. Change every other day - every 3rd day. 2. Left Forearm - Anterior site - Cleanse with NS moist gauze. Cover with single layer xerform and foam dressing. May use ABD pad and tape in place of foam dressing is adherence is an issue. Change Daily. Nutrition following Re-consult wound care Nurse for wound deterioration or wound changes
[2023-10-18 20:10] VITALS: BP 100/65; PULSE 59; RESP 18; TEMP 36.6; O2SAT 99
[2023-10-18] MEDS: QUEtiapine Fumarate 100 MG TABLET PO (21:50)
[2023-10-19 07:45] VITALS: BP 93/59; PULSE 63; RESP 14; TEMP 36.2; O2SAT 98
[2023-10-19] MEDS: cloNIDine HCL 0.1 MG TABLET PO ×2 (08:58→21:04)
[2023-10-19] MEDS: Doxycycline Monohydrate 100 MG CAPSULE PO ×2 (08:59→21:04)
[2023-10-19] MEDS: FLUoxetine HCl 20 MG CAPSULE 40 MG PO (08:59)
[2023-10-19] MEDS: Gabapentin 600 MG TABLET PO ×3 (08:59→21:05)
[2023-10-19] MEDS: clonazePAM 1 MG TABLET PO ×2 (08:59→21:04)
[2023-10-19] MEDS: methADONE HCl 20 MG/2 ML ORAL.CONC 145 MG PO (09:00)
[2023-10-19] MEDS: Nicotine 14 MG PATCH.TD24 TRANSDERMA (09:00)
[2023-10-19] MEDS: oxyCODONE HCl Immed Release 5 MG TABLET 10 MG PO ×3 (09:11→21:03)
[2023-10-19] MEDS: Nicotine Polacrilex 2 MG GUM 4 MG BUCCAL ×3 (09:33→18:08)
[2023-10-19 09:46] VITALS: BP 93/59; PULSE 63; RESP 20; TEMP 36.2; O2SAT 98
--- NOTE | 2023-10-19 10:11 | HO.PSYCHPN ---
Subjective Subjective Date of Service: 10/19/23 Reason For Visit: Major Depression Subjective Notes: Conditional Voluntary Interim History: pt discussed in team; chart reviiewed; pt seen. pt on 5 min checks for safety due to continued SI with plan to overdose if he were to leave hospital. pt reports he is very anxious without clonazepam 3 times a day. he reports feeling panic and having to stay in his room because of feeling too anxious- although this credit underwriter observed him to be sitting in community space watching Tv with peers. Pt reports not being able to sleep at night. he reports hydroxyzine , trazodone, seroquel prazosin and clonidine don't help with sleep; we discussed a very low dose of mirtazepine and he agreed to try. Medication Compliance: Yes Side effects from medications: No Attending Groups: Intermittent Review of Systems low BP Medical Review of Systems: unchanged Review of Systems Constitutional: Reports as per HPI Eyes: Reports as per HPI Reports as per HPI Cardiovascular: Reports as per HPI Respiratory: Reports as per HPI Gastrointestinal: Reports as per HPI Genitourinary: Reports as per HPI Musculoskeletal: Reports as per HPI Reports as per HPI Psychiatric: Reports as per HPI Endocrine: Reports as per HPI Hematologic/Lymphatic: Reports as per HPI Allergic/Immunologic: Reports as per HPI Mental Status Exam Mental Status Exam Narrative: Pt is alert and oriented; behavior is cooperative and calm; dressed in casual attire; mood is described as depressed ; eye contact appropriate; Speech is normal rate, volume and prosody and not pressured; thought process is organized and goal directed; Thought content is on tx; otherwise pertinent to relevant topics and without any delusional content, paranoid ideations or grandiosity; denies HI/VH/AH. Diagnostics Vital Signs (24Hr): Vital Signs - 24 hr 10/18/23 20:10 10/19/23 07:45 10/19/23 09:46 Temperature 97.9 F 97.2 F 97.2 F Pulse Rate 59 63 63 Respiratory Rate 18 14 20 Blood Pressure 100/65 93/59 L 93/59 L Pulse Oximetry 99 98 98 Oxygen Delivery Method Room Air Room Air Room Air BMI result Body Mass Index 27.1 Labs 10/18/23 08:08 Labs: Laboratory Results - last 48 hr 10/18/23 08:08 Sodium 141 Potassium 4.9 D Chloride 111 H Carbon Dioxide 21 L Anion Gap 14 BUN 19 H Creatinine 0.76 Estim Creat Clear Calc 138.2 Estimated GFR > 60 Fasting Glucose 96 Calcium 9.1 Total Bilirubin 0.2 AST 27 ALT 23 Alkaline Phosphatase 63 Total Protein 7.1 Albumin 3.7 Triglycerides 134 Cholesterol 147 LDL Cholesterol, Calc 96 HDL Cholesterol 25 L Medications Medications Current Medications Acetaminophen (Acetaminophen 325 Mg Tablet) 650 mg PO Q6H PRN PRN Reason: Pain, Mild (Pain Scale 1-3) Al Hydroxide/Mg Hydroxide (Magnesium Hydrox/Alum Hydrox 30 Ml Oral.Susp) 30 ml PO Q6H PRN PRN Reason: Heartburn/Nausea Baclofen (Baclofen 10 Mg Tablet) 10 mg PO BEDTIME [facility] Last Admin: 10/18/23 21:37 Dose: 10 mg Clonazepam (Clonazepam 1 Mg Tablet) 1 mg PO BID [facility] Last Admin: 10/19/23 08:59 Dose: 1 mg Clonidine HCl (Clonidine Hcl 0.1 Mg Tablet) 0.1 mg PO BID [facility]; Protocol Last Admin: 10/19/23 08:58 Dose: 0.1 mg Doxycycline Monohydrate (Doxycycline Monohydrate 100 Mg Capsule) 100 mg PO Q12H [facility] Last Admin: 10/19/23 08:59 Dose: 100 mg Fluoxetine HCl (Fluoxetine Hcl 20 Mg Capsule) 40 mg PO DAILY [facility] Last Admin: 10/19/23 08:59 Dose: 40 mg Gabapentin (Gabapentin 600 Mg Tablet) 600 mg PO TID [facility] Last Admin: 10/19/23 08:59 Dose: 600 mg Hydroxyzine HCl (Hydroxyzine Hcl 25 Mg Tablet) 25 mg PO Q6H PRN PRN Reason: Anxiety Magnesium Hydroxide (Milk Of Magnesia 30 Ml Oral.Susp) 30 ml PO DAILY PRN PRN Reason: Constipation Melatonin (Melatonin 3 Mg Tablet) 6 mg PO BEDTIME PRN PRN Reason: Insomnia Methadone HCl (Methadone Hcl 20 Mg/2 Ml Oral.Conc) 145 mg PO DAILY [facility] Last Admin: 10/19/23 09:00 Dose: 145 mg Nicotine (Nicotine 14 Mg Patch.Td24) 14 mg TRANSDERMA DAILY [facility] Last Admin: 10/19/23 09:00 Dose: 14 mg Nicotine Polacrilex (Nicotine Polacrilex 2 Mg Gum) 4 mg BUCCAL Q4H PRN PRN Reason: craving Last Admin: 10/19/23 09:33 Dose: 4 mg Oxycodone HCl (Oxycodone Hcl Immed Release 5 Mg Tablet) 10 mg PO Q6H PRN PRN Reason: Pain, Severe (Pain Scale 7-10) Last Admin: 10/19/23 09:11 Dose: 10 mg Quetiapine Fumarate (Quetiapine Fumarate 100 Mg Tablet) 100 mg PO BEDTIME PRN PRN Reason: Sleep Last Admin: 10/18/23 21:50 Dose: 100 mg Quetiapine Fumarate (Quetiapine Fumarate 25 Mg Tablet) 25 mg PO BID PRN PRN Reason: Anxiety Allergies Allergies Allergy/AdvReac Type Severity Reaction Status Date / Time Pertussis Vaccines Allergy Mild HIVES Verified 02/13/23 19:58 [PERTUSSIS VACCINES] Assessment & Plan Assessment & Plan (1) Major depressive disorder, recurrent severe without psychotic features: Status: Acute Code(s): F33.2 - Major depressive disorder, recurrent severe without psychotic features (2) Opioid use disorder: Status: Acute Code(s): F11.90 - Opioid use, unspecified, uncomplicated (3) Cocaine use disorder: Status: Acute Code(s): F14.10 - Cocaine abuse, uncomplicated Plan Patient is a 33 year old male with hx of MDD, PTSD, opioid use d/o and cocaine use d/o was admitted from medical unit d/t suicidal ideation secondary to increased depressive symptoms. Plan: CV 15 minute safety checks Consult to wound care for arm continue home medications; Clonidine and klonopin decreased from TID to BID d/t pt's low BP and recent substance abuse; pt aware. 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 discharge planning 10/19/23 education re: low BP and to increase intake of moderate table salt/salt food and increase fluid intake. trial of remeron 3.75mg at bedtime prn insomnia no increase of clonazepam at this time due to low BP Patient educated on: diagnosis, medication risk/benefits, substance abuse, therapeutic strategies and medical condition Informed Consent: understands and further education needed Reason for continued inpatient stay Substantial Risk for: harm to self, inability to function and rapid decompensation Time Spent With Patient Time: Total time managing care of this patient today ____ minutes.
[2023-10-19 19:50] VITALS: BP 102/60; PULSE 76; RESP 16; TEMP 36.1; O2SAT 99
[2023-10-19] MEDS: Baclofen 10 MG TABLET PO (21:04)
[2023-10-20 06:00] VITALS: BP 104/60; PULSE 69; RESP 18; O2SAT 98
[2023-10-20 07:00] VITALS: BMI 27.6
[2023-10-20] MEDS: Nicotine 14 MG PATCH.TD24 TRANSDERMA (08:34)
[2023-10-20] MEDS: FLUoxetine HCl 20 MG CAPSULE 40 MG PO (08:35)
[2023-10-20] MEDS: oxyCODONE HCl Immed Release 5 MG TABLET 10 MG PO ×3 (08:35→21:24)
[2023-10-20] MEDS: Nicotine Polacrilex 2 MG GUM 4 MG BUCCAL ×3 (08:36→18:21)
[2023-10-20] MEDS: cloNIDine HCL 0.1 MG TABLET PO ×2 (08:36→21:25)
[2023-10-20] MEDS: clonazePAM 1 MG TABLET PO ×2 (08:36→21:25)
[2023-10-20] MEDS: Gabapentin 600 MG TABLET PO ×3 (08:36→21:25)
[2023-10-20] MEDS: methADONE HCl 20 MG/2 ML ORAL.CONC 145 MG PO (08:37)
[2023-10-20] MEDS: Doxycycline Monohydrate 100 MG CAPSULE PO ×2 (08:37→21:25)
--- NOTE | 2023-10-20 11:55 | P.PNPSI_ITS ---
Subjective Subjective Date of Service: 10/20/23 Reason For Visit: Major Depression Subjective Notes: Conditional Voluntary Interim History: Reviewed with Dr. Johnson. Pt reports feeling okay today; pt stated, I feel like my depression is getting better with the meds. I didn't sleep well last night because I was dreaming about drugs . pt denies SI/HI/VH/AH. Medication Compliance: Yes Side effects from medications: No Attending Groups: Intermittent Review of Systems Constitutional: Reports as per HPI Eyes: Reports as per HPI Reports as per HPI Cardiovascular: Reports as per HPI Respiratory: Reports as per HPI Gastrointestinal: Reports as per HPI Genitourinary: Reports as per HPI Musculoskeletal: Reports as per HPI Reports as per HPI Psychiatric: Reports as per HPI Endocrine: Reports as per HPI Hematologic/Lymphatic: Reports as per HPI Allergic/Immunologic: Reports as per HPI Mental Status Exam Mental Status Exam Narrative: Pt is alert and oriented; behavior is cooperative and calm; dressed in casual attire; mood is described as depressed ; eye contact appropriate; Speech is normal rate, volume and prosody and not pressured; thought process is organized; Thought content is on tx; otherwise pertinent to relevant topics and without any delusional content, paranoid ideations or grandiosity; denies SI/HI/VH/AH. Diagnostics Vital Signs (24Hr): Vital Signs - 24 hr 10/19/23 19:50 10/20/23 06:00 Temperature 97 F Pulse Rate 76 69 Respiratory Rate 16 18 Blood Pressure 102/60 104/60 Pulse Oximetry 99 98 Oxygen Delivery Method Room Air Room Air BMI result Body Mass Index 27.6 Labs 10/18/23 08:08 Medications Medications Current Medications Acetaminophen (Acetaminophen 325 Mg Tablet) 650 mg PO Q6H PRN PRN Reason: Pain, Mild (Pain Scale 1-3) Al Hydroxide/Mg Hydroxide (Magnesium Hydrox/Alum Hydrox 30 Ml Oral.Susp) 30 ml PO Q6H PRN PRN Reason: Heartburn/Nausea Baclofen (Baclofen 10 Mg Tablet) 10 mg PO BEDTIME [facility] Last Admin: 10/19/23 21:04 Dose: 10 mg Clonazepam (Clonazepam 1 Mg Tablet) 1 mg PO BID [facility] Last Admin: 10/20/23 08:36 Dose: 1 mg Clonidine HCl (Clonidine Hcl 0.1 Mg Tablet) 0.1 mg PO BID [facility]; Protocol Last Admin: 10/20/23 08:36 Dose: 0.1 mg Doxycycline Monohydrate (Doxycycline Monohydrate 100 Mg Capsule) 100 mg PO Q12H [facility] Last Admin: 10/20/23 08:37 Dose: 100 mg Fluoxetine HCl (Fluoxetine Hcl 20 Mg Capsule) 40 mg PO DAILY [facility] Last Admin: 10/20/23 08:35 Dose: 40 mg Gabapentin (Gabapentin 600 Mg Tablet) 600 mg PO TID [facility] Last Admin: 10/20/23 08:36 Dose: 600 mg Hydroxyzine HCl (Hydroxyzine Hcl 25 Mg Tablet) 25 mg PO Q6H PRN PRN Reason: Anxiety Magnesium Hydroxide (Milk Of Magnesia 30 Ml Oral.Susp) 30 ml PO DAILY PRN PRN Reason: Constipation Melatonin (Melatonin 3 Mg Tablet) 6 mg PO BEDTIME PRN PRN Reason: Insomnia Methadone HCl (Methadone Hcl 20 Mg/2 Ml Oral.Conc) 145 mg PO DAILY [facility] Last Admin: 10/20/23 08:37 Dose: 145 mg Mirtazapine (Mirtazapine 7.5 Mg Tablet) 3.75 mg PO BEDTIME PRN PRN Reason: insomnia Nicotine (Nicotine 14 Mg Patch.Td24) 14 mg TRANSDERMA DAILY [facility] Last Admin: 10/20/23 08:34 Dose: 14 mg Nicotine Polacrilex (Nicotine Polacrilex 2 Mg Gum) 4 mg BUCCAL Q2H PRN PRN Reason: craving Last Admin: 10/20/23 08:36 Dose: 4 mg Oxycodone HCl (Oxycodone Hcl Immed Release 5 Mg Tablet) 10 mg PO Q6H PRN PRN Reason: Pain, Severe (Pain Scale 7-10) Last Admin: 10/20/23 08:35 Dose: 10 mg Quetiapine Fumarate (Quetiapine Fumarate 100 Mg Tablet) 100 mg PO BEDTIME PRN PRN Reason: Sleep Last Admin: 10/18/23 21:50 Dose: 100 mg Quetiapine Fumarate (Quetiapine Fumarate 25 Mg Tablet) 25 mg PO BID PRN PRN Reason: Anxiety Allergies Allergies Allergy/AdvReac Type Severity Reaction Status Date / Time Pertussis Vaccines Allergy Mild HIVES Verified 02/13/23 19:58 [PERTUSSIS VACCINES] Assessment & Plan Assessment & Plan (1) Major depressive disorder, recurrent severe without psychotic features: Status: Acute Code(s): F33.2 - Major depressive disorder, recurrent severe without psychotic features (2) Opioid use disorder: Status: Acute Code(s): F11.90 - Opioid use, unspecified, uncomplicated (3) Cocaine use disorder: Status: Acute Code(s): F14.10 - Cocaine abuse, uncomplicated Plan Patient is a 33 year old male with hx of MDD, PTSD, opioid use d/o and cocaine use d/o was admitted from medical unit d/t suicidal ideation secondary to increased depressive symptoms. Plan: CV 15 minute safety checks Consult to wound care for arm continue home medications; Clonidine and klonopin decreased from TID to BID d/t pt's low BP and recent substance abuse; pt aware. 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 discharge planning 10/19/23 education re: low BP and to increase intake of moderate table salt/salt food and increase fluid intake. trial of remeron 3.75mg at bedtime prn insomnia no increase of clonazepam at this time due to low BP 10/19: Pt reports feeling okay today; pt stated, I feel like my depression is getting better with the meds. I didn't sleep well last night because I was dreaming about drugs . pt denies SI/HI/VH/AH. continue current tx plan. Patient educated on: diagnosis, medication risk/benefits and therapeutic strategies Informed Consent: understands Reason for continued inpatient stay Substantial Risk for: med/psych decompensation Time Spent With Patient Time: Total time managing care of this patient today _20___ minutes.
[2023-10-20 20:30] VITALS: BP 105/69; PULSE 82; RESP 16; TEMP 36.7; O2SAT 100
[2023-10-20] MEDS: Baclofen 10 MG TABLET PO (21:25)
[2023-10-20] MEDS: QUEtiapine Fumarate 100 MG TABLET PO (21:25)
[2023-10-21 06:00] VITALS: BP 99/61; PULSE 76; RESP 14; TEMP 36.6; O2SAT 98
[2023-10-21] MEDS: Gabapentin 600 MG TABLET PO ×3 (08:47→20:32)
[2023-10-21] MEDS: FLUoxetine HCl 20 MG CAPSULE 40 MG PO (08:47)
[2023-10-21] MEDS: Doxycycline Monohydrate 100 MG CAPSULE PO ×2 (08:47→20:32)
[2023-10-21] MEDS: cloNIDine HCL 0.1 MG TABLET PO ×2 (08:47→20:31)
[2023-10-21] MEDS: clonazePAM 1 MG TABLET PO ×2 (08:47→20:31)
[2023-10-21] MEDS: methADONE HCl 20 MG/2 ML ORAL.CONC 145 MG PO (08:50)
[2023-10-21] MEDS: Nicotine 14 MG PATCH.TD24 TRANSDERMA (08:56)
[2023-10-21] MEDS: oxyCODONE HCl Immed Release 5 MG TABLET 10 MG PO ×3 (08:57→20:31)
[2023-10-21] MEDS: Nicotine Polacrilex 2 MG GUM 4 MG BUCCAL ×4 (08:57→22:33)
--- NOTE | 2023-10-21 09:29 | P.PNPSI_ITS ---
Subjective Subjective Date of Service: 10/21/23 Reason For Visit: Major Depression Subjective Notes: Conditional Voluntary Interim History: Reviewed with Dr. Johnson. Pt reports feeling okay today; pt stated, I'm still interested in going to an IOP; and not a program where I can't leave . pt denies SI/HI/VH/AH. slept 8 hours last night per nursing staff. Medication Compliance: Yes Side effects from medications: No Attending Groups: Intermittent Review of Systems Constitutional: Reports as per HPI Eyes: Reports as per HPI Reports as per HPI Cardiovascular: Reports as per HPI Respiratory: Reports as per HPI Gastrointestinal: Reports as per HPI Genitourinary: Reports as per HPI Musculoskeletal: Reports as per HPI Reports as per HPI Psychiatric: Reports as per HPI Endocrine: Reports as per HPI Hematologic/Lymphatic: Reports as per HPI Allergic/Immunologic: Reports as per HPI Mental Status Exam Mental Status Exam Narrative: Pt is alert and oriented; behavior is cooperative and calm; dressed in casual attire; mood is described as depressed ; eye contact appropriate; Speech is normal rate, volume and prosody and not pressured; thought process is organized; Thought content is on tx; otherwise pertinent to relevant topics and without any delusional content, paranoid ideations or grandiosity; denies SI/HI/VH/AH. Diagnostics Vital Signs (24Hr): Vital Signs - 24 hr 10/20/23 20:30 10/21/23 06:00 Temperature 98.1 F 97.9 F Pulse Rate 82 76 Respiratory Rate 16 14 Blood Pressure 105/69 99/61 Pulse Oximetry 100 98 Oxygen Delivery Method Room Air Room Air BMI result Body Mass Index 27.6 Labs 10/18/23 08:08 Medications Medications Current Medications Acetaminophen (Acetaminophen 325 Mg Tablet) 650 mg PO Q6H PRN PRN Reason: Pain, Mild (Pain Scale 1-3) Al Hydroxide/Mg Hydroxide (Magnesium Hydrox/Alum Hydrox 30 Ml Oral.Susp) 30 ml PO Q6H PRN PRN Reason: Heartburn/Nausea Baclofen (Baclofen 10 Mg Tablet) 10 mg PO BEDTIME [facility] Last Admin: 10/20/23 21:25 Dose: 10 mg Clonazepam (Clonazepam 1 Mg Tablet) 1 mg PO BID [facility] Last Admin: 10/21/23 08:47 Dose: 1 mg Clonidine HCl (Clonidine Hcl 0.1 Mg Tablet) 0.1 mg PO BID [facility]; Protocol Last Admin: 10/21/23 08:47 Dose: 0.1 mg Doxycycline Monohydrate (Doxycycline Monohydrate 100 Mg Capsule) 100 mg PO Q12H [facility] Last Admin: 10/21/23 08:47 Dose: 100 mg Fluoxetine HCl (Fluoxetine Hcl 20 Mg Capsule) 40 mg PO DAILY [facility] Last Admin: 10/21/23 08:47 Dose: 40 mg Gabapentin (Gabapentin 600 Mg Tablet) 600 mg PO TID [facility] Last Admin: 10/21/23 08:47 Dose: 600 mg Hydroxyzine HCl (Hydroxyzine Hcl 25 Mg Tablet) 25 mg PO Q6H PRN PRN Reason: Anxiety Magnesium Hydroxide (Milk Of Magnesia 30 Ml Oral.Susp) 30 ml PO DAILY PRN PRN Reason: Constipation Melatonin (Melatonin 3 Mg Tablet) 6 mg PO BEDTIME PRN PRN Reason: Insomnia Methadone HCl (Methadone Hcl 20 Mg/2 Ml Oral.Conc) 145 mg PO DAILY [facility] Last Admin: 10/21/23 08:50 Dose: 145 mg Mirtazapine (Mirtazapine 7.5 Mg Tablet) 3.75 mg PO BEDTIME PRN PRN Reason: insomnia Nicotine (Nicotine 14 Mg Patch.Td24) 14 mg TRANSDERMA DAILY [facility] Last Admin: 10/21/23 08:56 Dose: 14 mg Nicotine Polacrilex (Nicotine Polacrilex 2 Mg Gum) 4 mg BUCCAL Q2H PRN PRN Reason: craving Last Admin: 10/21/23 08:57 Dose: 4 mg Oxycodone HCl (Oxycodone Hcl Immed Release 5 Mg Tablet) 10 mg PO Q6H PRN PRN Reason: Pain, Severe (Pain Scale 7-10) Last Admin: 10/21/23 08:57 Dose: 10 mg Quetiapine Fumarate (Quetiapine Fumarate 100 Mg Tablet) 100 mg PO BEDTIME PRN PRN Reason: Sleep Last Admin: 10/20/23 21:25 Dose: 100 mg Quetiapine Fumarate (Quetiapine Fumarate 25 Mg Tablet) 25 mg PO BID PRN PRN Reason: Anxiety Allergies Allergies Allergy/AdvReac Type Severity Reaction Status Date / Time Pertussis Vaccines Allergy Mild HIVES Verified 02/13/23 19:58 [PERTUSSIS VACCINES] Assessment & Plan Assessment & Plan (1) Major depressive disorder, recurrent severe without psychotic features: Status: Acute Code(s): F33.2 - Major depressive disorder, recurrent severe without psychotic features (2) Opioid use disorder: Status: Acute Code(s): F11.90 - Opioid use, unspecified, uncomplicated (3) Cocaine use disorder: Status: Acute Code(s): F14.10 - Cocaine abuse, uncomplicated Plan Patient is a 33 year old male with hx of MDD, PTSD, opioid use d/o and cocaine use d/o was admitted from medical unit d/t suicidal ideation secondary to increased depressive symptoms. Plan: CV 15 minute safety checks Consult to wound care for arm continue home medications; Clonidine and klonopin decreased from TID to BID d/t pt's low BP and recent substance abuse; pt aware. 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 discharge planning 10/19/23 education re: low BP and to increase intake of moderate table salt/salt food and increase fluid intake. trial of remeron 3.75mg at bedtime prn insomnia no increase of clonazepam at this time due to low BP 10/19: Pt reports feeling okay today; pt stated, I feel like my depression is getting better with the meds. I didn't sleep well last night because I was dreaming about drugs . pt denies SI/HI/VH/AH. continue current tx plan. 10/20: pt stated, I'm still interested in going to an IOP; and not a program where I can't leave . pt denies SI/HI/VH/AH. slept 8 hours last night per nursing staff. Patient educated on: diagnosis, medication risk/benefits and substance abuse Informed Consent: understands Reason for continued inpatient stay Substantial Risk for: med/psych decompensation Time Spent With Patient Time: Total time managing care of this patient today _20___ minutes.
--- NOTE | 2023-10-21 16:13 | HO.WOUND ---
Wound Consult: Follow up 33yr old?[place] [facility] [place] See progress notes and H&P for detailed history. Recent transfer to [facility]. Wound consult Follow up for Left Arm wounds secondary to IVDU injection site. Patient reports dressing was just changed approximately i hr ago and prefers I defer assessment to another day. Patient reports increased comfort and he feels redness / erythema has lessened - will attempt to assess early next week. No new topical recommendations at this time continue with current orders. Recommendations: 1. Left Forearm Posterior Site - Cleanse with NS, pat dry. Cover with Hydrocolloid dressing for moist wound environment. Change every other day - every 3rd day. 2. Left Forearm - Anterior site - Cleanse with NS moist gauze. Cover with single layer xerform and foam dressing. May use ABD pad and tape in place of foam dressing is adherence is an issue. Change Daily. Nutrition following
[2023-10-21 20:00] VITALS: BP 117/74; PULSE 85; RESP 16; TEMP 36.3; O2SAT 100
[2023-10-21] MEDS: QUEtiapine Fumarate 100 MG TABLET PO (20:32)
[2023-10-21] MEDS: Baclofen 10 MG TABLET PO (20:32)
--- NOTE | 2023-10-22 07:24 | HO.PSYCHPN ---
Subjective Subjective Date of Service: 10/22/23 Reason For Visit: Major Depression Subjective Notes: Conditional Voluntary Interim History: Reviewed with Dr. Johnson. active on unit. social with peers, attending groups. Pt reports feeling like my depression is getting better but I'm still anxious ; pt denies SI/HI/VH/AH. Medication Compliance: Yes Side effects from medications: No Attending Groups: Yes Review of Systems Constitutional: Reports as per HPI Eyes: Reports as per HPI Reports as per HPI Cardiovascular: Reports as per HPI Respiratory: Reports as per HPI Gastrointestinal: Reports as per HPI Genitourinary: Reports as per HPI Musculoskeletal: Reports as per HPI Reports as per HPI Psychiatric: Reports as per HPI Endocrine: Reports as per HPI Hematologic/Lymphatic: Reports as per HPI Allergic/Immunologic: Reports as per HPI Mental Status Exam Mental Status Exam Narrative: Pt is alert and oriented; behavior is cooperative and calm; dressed in casual attire; mood is described as better ; eye contact appropriate; Speech is normal rate, volume and prosody and not pressured; thought process is organized; Thought content is on tx; otherwise pertinent to relevant topics and without any delusional content, paranoid ideations or grandiosity; denies SI/HI/VH/AH. Diagnostics Vital Signs (24Hr): Vital Signs - 24 hr 10/21/23 20:00 Temperature 97.4 F Pulse Rate 85 Respiratory Rate 16 Blood Pressure 117/74 Pulse Oximetry 100 Oxygen Delivery Method Room Air BMI result Body Mass Index 27.6 Labs 10/18/23 08:08 Medications Medications Current Medications Acetaminophen (Acetaminophen 325 Mg Tablet) 650 mg PO Q6H PRN PRN Reason: Pain, Mild (Pain Scale 1-3) Al Hydroxide/Mg Hydroxide (Magnesium Hydrox/Alum Hydrox 30 Ml Oral.Susp) 30 ml PO Q6H PRN PRN Reason: Heartburn/Nausea Baclofen (Baclofen 10 Mg Tablet) 10 mg PO BEDTIME [facility] Last Admin: 10/21/23 20:32 Dose: 10 mg Clonazepam (Clonazepam 1 Mg Tablet) 1 mg PO BID [facility] Last Admin: 10/21/23 20:31 Dose: 1 mg Clonidine HCl (Clonidine Hcl 0.1 Mg Tablet) 0.1 mg PO BID [facility]; Protocol Last Admin: 10/21/23 20:31 Dose: 0.1 mg Doxycycline Monohydrate (Doxycycline Monohydrate 100 Mg Capsule) 100 mg PO Q12H [facility] Last Admin: 10/21/23 20:32 Dose: 100 mg Fluoxetine HCl (Fluoxetine Hcl 20 Mg Capsule) 40 mg PO DAILY [facility] Last Admin: 10/21/23 08:47 Dose: 40 mg Gabapentin (Gabapentin 600 Mg Tablet) 600 mg PO TID [facility] Last Admin: 10/21/23 20:32 Dose: 600 mg Hydroxyzine HCl (Hydroxyzine Hcl 25 Mg Tablet) 25 mg PO Q6H PRN PRN Reason: Anxiety Magnesium Hydroxide (Milk Of Magnesia 30 Ml Oral.Susp) 30 ml PO DAILY PRN PRN Reason: Constipation Melatonin (Melatonin 3 Mg Tablet) 6 mg PO BEDTIME PRN PRN Reason: Insomnia Methadone HCl (Methadone Hcl 20 Mg/2 Ml Oral.Conc) 145 mg PO DAILY [facility] Last Admin: 10/21/23 08:50 Dose: 145 mg Mirtazapine (Mirtazapine 7.5 Mg Tablet) 3.75 mg PO BEDTIME PRN PRN Reason: insomnia Nicotine (Nicotine 14 Mg Patch.Td24) 14 mg TRANSDERMA DAILY [facility] Last Admin: 10/21/23 08:56 Dose: 14 mg Nicotine Polacrilex (Nicotine Polacrilex 2 Mg Gum) 4 mg BUCCAL Q2H PRN PRN Reason: craving Last Admin: 10/21/23 22:33 Dose: 4 mg Oxycodone HCl (Oxycodone Hcl Immed Release 5 Mg Tablet) 10 mg PO Q6H PRN PRN Reason: Pain, Severe (Pain Scale 7-10) Last Admin: 10/21/23 20:31 Dose: 10 mg Quetiapine Fumarate (Quetiapine Fumarate 100 Mg Tablet) 100 mg PO BEDTIME PRN PRN Reason: Sleep Last Admin: 10/21/23 20:32 Dose: 100 mg Quetiapine Fumarate (Quetiapine Fumarate 25 Mg Tablet) 25 mg PO BID PRN PRN Reason: Anxiety Allergies Allergies Allergy/AdvReac Type Severity Reaction Status Date / Time Pertussis Vaccines Allergy Mild HIVES Verified 02/13/23 19:58 [PERTUSSIS VACCINES] Assessment & Plan Assessment & Plan (1) Major depressive disorder, recurrent severe without psychotic features: Status: Acute Code(s): F33.2 - Major depressive disorder, recurrent severe without psychotic features (2) Opioid use disorder: Status: Acute Code(s): F11.90 - Opioid use, unspecified, uncomplicated (3) Cocaine use disorder: Status: Acute Code(s): F14.10 - Cocaine abuse, uncomplicated Plan Patient is a 33 year old male with hx of MDD, PTSD, opioid use d/o and cocaine use d/o was admitted from medical unit d/t suicidal ideation secondary to increased depressive symptoms. Plan: CV 15 minute safety checks Consult to wound care for arm continue home medications; Clonidine and klonopin decreased from TID to BID d/t pt's low BP and recent substance abuse; pt aware. 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 discharge planning 10/19/23 education re: low BP and to increase intake of moderate table salt/salt food and increase fluid intake. trial of remeron 3.75mg at bedtime prn insomnia no increase of clonazepam at this time due to low BP 10/19: Pt reports feeling okay today; pt stated, I feel like my depression is getting better with the meds. I didn't sleep well last night because I was dreaming about drugs . pt denies SI/HI/VH/AH. continue current tx plan. 10/20: pt stated, I'm still interested in going to an IOP; and not a program where I can't leave . pt denies SI/HI/VH/AH. slept 8 hours last night per nursing staff. 10/21: active on unit. social with peers, attending groups. Pt reports feeling like my depression is getting better but I'm still anxious ; pt denies SI/HI/VH/AH. continue current tx plan. Patient educated on: medication risk/benefits Informed Consent: understands Reason for continued inpatient stay Substantial Risk for: med/psych decompensation Time Spent With Patient Time: Total time managing care of this patient today _20___ minutes.
[2023-10-22 07:35] VITALS: BP 100/53; PULSE 52; RESP 14; TEMP 36.4; O2SAT 98
[2023-10-22] MEDS: methADONE HCl 20 MG/2 ML ORAL.CONC 145 MG PO (08:40)
[2023-10-22] MEDS: Nicotine 14 MG PATCH.TD24 TRANSDERMA (08:42)
[2023-10-22] MEDS: cloNIDine HCL 0.1 MG TABLET PO ×2 (08:43→20:57)
[2023-10-22] MEDS: Gabapentin 600 MG TABLET PO ×3 (08:43→20:57)
[2023-10-22] MEDS: oxyCODONE HCl Immed Release 5 MG TABLET 10 MG PO ×3 (08:43→22:00)
[2023-10-22] MEDS: clonazePAM 1 MG TABLET PO ×2 (08:43→20:57)
[2023-10-22] MEDS: Doxycycline Monohydrate 100 MG CAPSULE PO ×2 (08:44→20:57)
[2023-10-22] MEDS: FLUoxetine HCl 20 MG CAPSULE 40 MG PO (08:44)
[2023-10-22] MEDS: Nicotine Polacrilex 2 MG GUM 4 MG BUCCAL ×3 (09:14→17:19)
[2023-10-22] MEDS: hydrOXYzine HCL 25 MG TABLET PO (17:49)
[2023-10-22] MEDS: QUEtiapine Fumarate 25 MG TABLET PO ×2 (17:49→22:58)
[2023-10-22 20:30] VITALS: BP 113/60; PULSE 65; RESP 18; TEMP 36.8; O2SAT 98
[2023-10-22] MEDS: QUEtiapine Fumarate 100 MG TABLET PO (20:57)
[2023-10-22] MEDS: Mirtazapine 7.5 MG TABLET 3.75 MG PO (20:58)
[2023-10-22] MEDS: Baclofen 10 MG TABLET PO (20:58)
[2023-10-22] MEDS: Melatonin 3 MG TABLET 6 MG PO (22:58)
[2023-10-23 07:20] VITALS: BP 108/58; PULSE 56; RESP 14; TEMP 37; O2SAT 98
[2023-10-23 07:56] VITALS: BP 108/60; PULSE 66; RESP 20; TEMP 37; O2SAT 98
[2023-10-23] MEDS: FLUoxetine HCl 20 MG CAPSULE 40 MG PO (08:33)
[2023-10-23] MEDS: Nicotine 14 MG PATCH.TD24 TRANSDERMA (08:33)
[2023-10-23] MEDS: oxyCODONE HCl Immed Release 5 MG TABLET 10 MG PO ×3 (08:33→21:05)
[2023-10-23] MEDS: Gabapentin 600 MG TABLET PO ×3 (08:34→21:05)
[2023-10-23] MEDS: cloNIDine HCL 0.1 MG TABLET PO ×2 (08:34→21:06)
[2023-10-23] MEDS: methADONE HCl 20 MG/2 ML ORAL.CONC 145 MG PO (08:34)
[2023-10-23] MEDS: clonazePAM 1 MG TABLET PO ×2 (08:34→21:05)
[2023-10-23] MEDS: Doxycycline Monohydrate 100 MG CAPSULE PO ×2 (08:34→21:05)
[2023-10-23] MEDS: Nicotine Polacrilex 2 MG GUM 4 MG BUCCAL ×2 (09:30→14:19)
--- NOTE | 2023-10-23 11:53 | P.PNPSI_ITS ---
Subjective Subjective Date of Service: 10/23/23 Reason For Visit: Major Depression Subjective Notes: Conditional Voluntary Interim History: Reviewed with Dr. Johnson. active on unit. social with peers, attending groups. Pt stated, My depression isn't so bad today. I'm trying to be hopeful. My mom is going to be visiting me today. She's always supportive .; pt denies SI/HI/VH/AH. Pt requesting for remeron to be increased to 7.5mg PO PRN for sleep. Medication Compliance: Yes Side effects from medications: No Attending Groups: Yes Review of Systems Constitutional: Reports as per HPI Eyes: Reports as per HPI Reports as per HPI Cardiovascular: Reports as per HPI Respiratory: Reports as per HPI Gastrointestinal: Reports as per HPI Genitourinary: Reports as per HPI Musculoskeletal: Reports as per HPI Skin/Breast: Reports as per HPI Reports as per HPI Psychiatric: Reports as per HPI Endocrine: Reports as per HPI Hematologic/Lymphatic: Reports as per HPI Allergic/Immunologic: Reports as per HPI Mental Status Exam Mental Status Exam Narrative: Pt is alert and oriented; behavior is cooperative and calm; dressed in casual attire; mood is described as better ; eye contact appropriate; Speech is normal rate, volume and prosody and not pressured; thought process is organized; Thought content is on tx; otherwise pertinent to relevant topics and without any delusional content, paranoid ideations or grandiosity; denies SI/HI/VH/AH. Diagnostics Vital Signs (24Hr): Vital Signs - 24 hr 10/22/23 20:30 10/23/23 07:20 10/23/23 07:56 Temperature 98.2 F 98.6 F 98.6 F Pulse Rate 65 56 66 Respiratory Rate 18 14 20 Blood Pressure 113/60 108/58 L 108/60 Pulse Oximetry 98 98 98 Oxygen Delivery Method Room Air Room Air Room Air BMI result Body Mass Index 27.6 Labs 10/18/23 08:08 Medications Medications Current Medications Acetaminophen (Acetaminophen 325 Mg Tablet) 650 mg PO Q6H PRN PRN Reason: Pain, Mild (Pain Scale 1-3) Al Hydroxide/Mg Hydroxide (Magnesium Hydrox/Alum Hydrox 30 Ml Oral.Susp) 30 ml PO Q6H PRN PRN Reason: Heartburn/Nausea Baclofen (Baclofen 10 Mg Tablet) 10 mg PO BEDTIME [facility] Last Admin: 10/22/23 20:58 Dose: 10 mg Clonazepam (Clonazepam 1 Mg Tablet) 1 mg PO BID [facility] Last Admin: 10/23/23 08:34 Dose: 1 mg Clonidine HCl (Clonidine Hcl 0.1 Mg Tablet) 0.1 mg PO BID [facility]; Protocol Last Admin: 10/23/23 08:34 Dose: 0.1 mg Doxycycline Monohydrate (Doxycycline Monohydrate 100 Mg Capsule) 100 mg PO Q12H [facility] Last Admin: 10/23/23 08:34 Dose: 100 mg Fluoxetine HCl (Fluoxetine Hcl 20 Mg Capsule) 40 mg PO DAILY [facility] Last Admin: 10/23/23 08:33 Dose: 40 mg Gabapentin (Gabapentin 600 Mg Tablet) 600 mg PO TID [facility] Last Admin: 10/23/23 08:34 Dose: 600 mg Hydroxyzine HCl (Hydroxyzine Hcl 25 Mg Tablet) 25 mg PO Q6H PRN PRN Reason: Anxiety Last Admin: 10/22/23 17:49 Dose: 25 mg Magnesium Hydroxide (Milk Of Magnesia 30 Ml Oral.Susp) 30 ml PO DAILY PRN PRN Reason: Constipation Melatonin (Melatonin 3 Mg Tablet) 6 mg PO BEDTIME PRN PRN Reason: Insomnia Last Admin: 10/22/23 22:58 Dose: 6 mg Methadone HCl (Methadone Hcl 20 Mg/2 Ml Oral.Conc) 145 mg PO DAILY [facility] Last Admin: 10/23/23 08:34 Dose: 145 mg Mirtazapine (Mirtazapine 7.5 Mg Tablet) 3.75 mg PO BEDTIME PRN PRN Reason: insomnia Last Admin: 10/22/23 20:58 Dose: 3.75 mg Nicotine (Nicotine 14 Mg Patch.Td24) 14 mg TRANSDERMA DAILY [facility] Last Admin: 10/23/23 08:33 Dose: 14 mg Nicotine Polacrilex (Nicotine Polacrilex 2 Mg Gum) 4 mg BUCCAL Q2H PRN PRN Reason: craving Last Admin: 10/23/23 09:30 Dose: 4 mg Oxycodone HCl (Oxycodone Hcl Immed Release 5 Mg Tablet) 10 mg PO Q6H PRN PRN Reason: Pain, Severe (Pain Scale 7-10) Last Admin: 10/23/23 08:33 Dose: 10 mg Quetiapine Fumarate (Quetiapine Fumarate 100 Mg Tablet) 100 mg PO BEDTIME PRN PRN Reason: Sleep Last Admin: 10/22/23 20:57 Dose: 100 mg Quetiapine Fumarate (Quetiapine Fumarate 25 Mg Tablet) 25 mg PO BID PRN PRN Reason: Anxiety Last Admin: 10/22/23 22:58 Dose: 25 mg Allergies Allergies Allergy/AdvReac Type Severity Reaction Status Date / Time Pertussis Vaccines Allergy Mild HIVES Verified 02/13/23 19:58 [PERTUSSIS VACCINES] Assessment & Plan Assessment & Plan (1) Major depressive disorder, recurrent severe without psychotic features: Status: Acute Code(s): F33.2 - Major depressive disorder, recurrent severe without psychotic features (2) Opioid use disorder: Status: Acute Code(s): F11.90 - Opioid use, unspecified, uncomplicated (3) Cocaine use disorder: Status: Acute Code(s): F14.10 - Cocaine abuse, uncomplicated Plan Patient is a 33 year old male with hx of MDD, PTSD, opioid use d/o and cocaine use d/o was admitted from medical unit d/t suicidal ideation secondary to increased depressive symptoms. Plan: CV 15 minute safety checks Consult to wound care for arm continue home medications; Clonidine and klonopin decreased from TID to BID d/t pt's low BP and recent substance abuse; pt aware. 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 discharge planning 10/19/23 education re: low BP and to increase intake of moderate table salt/salt food and increase fluid intake. trial of remeron 3.75mg at bedtime prn insomnia no increase of clonazepam at this time due to low BP 10/19: Pt reports feeling okay today; pt stated, I feel like my depression is getting better with the meds. I didn't sleep well last night because I was dreaming about drugs . pt denies SI/HI/VH/AH. continue current tx plan. 10/20: pt stated, I'm still interested in going to an IOP; and not a program where I can't leave . pt denies SI/HI/VH/AH. slept 8 hours last night per nursing staff. 10/21: active on unit. social with peers, attending groups. Pt reports feeling like my depression is getting better but I'm still anxious ; pt denies SI/HI/VH/AH. continue current tx plan. 10/22: active on unit. social with peers, attending groups. Pt stated, My depression isn't so bad today. I'm trying to be hopeful. My mom is going to be visiting me today. She's always supportive .; pt denies SI/HI/VH/AH. Pt requesting for remeron to be increased to 7.5mg PO PRN for sleep. Patient educated on: diagnosis, medication risk/benefits and therapeutic strategies Informed Consent: understands Reason for continued inpatient stay Substantial Risk for: med/psych decompensation Time Spent With Patient Time: Total time managing care of this patient today _20___ minutes.
[2023-10-23] MEDS: hydrOXYzine HCL 25 MG TABLET PO (17:57)
[2023-10-23] MEDS: QUEtiapine Fumarate 25 MG TABLET PO (17:57)
[2023-10-23] MEDS: Baclofen 10 MG TABLET PO (21:06)
[2023-10-23] MEDS: QUEtiapine Fumarate 100 MG TABLET PO (21:06)
[2023-10-23] MEDS: Mirtazapine 7.5 MG TABLET PO (21:07)
[2023-10-23 21:10] VITALS: BP 109/62; PULSE 64; RESP 18; TEMP 36.3; O2SAT 98
[2023-10-24 07:50] VITALS: BP 106/65; PULSE 55; RESP 18; TEMP 36.4; O2SAT 97
[2023-10-24] MEDS: Gabapentin 600 MG TABLET PO ×3 (08:45→21:01)
[2023-10-24] MEDS: clonazePAM 1 MG TABLET PO ×2 (08:45→21:01)
[2023-10-24] MEDS: FLUoxetine HCl 20 MG CAPSULE 40 MG PO (08:45)
[2023-10-24] MEDS: Doxycycline Monohydrate 100 MG CAPSULE PO ×2 (08:46→21:01)
[2023-10-24] MEDS: Nicotine Polacrilex 2 MG GUM 4 MG BUCCAL ×3 (08:47→18:49)
[2023-10-24] MEDS: oxyCODONE HCl Immed Release 5 MG TABLET 10 MG PO ×3 (08:47→21:04)
[2023-10-24] MEDS: cloNIDine HCL 0.1 MG TABLET PO ×2 (08:47→21:01)
[2023-10-24] MEDS: Nicotine 14 MG PATCH.TD24 TRANSDERMA (08:48)
[2023-10-24] MEDS: methADONE HCl 20 MG/2 ML ORAL.CONC 145 MG PO (08:49)
--- NOTE | 2023-10-24 09:05 | P.PNPSI_ITS ---
Subjective Subjective Date of Service: 10/24/23 Reason For Visit: Major Depression Subjective Notes: Conditional Voluntary Interim History: Reviewed with Dr. Johnson. Pt reports feeling okay today; he reports visit with mother went well yesterday. Pt waiting to find out which IOP he will be able to attend. Denies SI/HI/VH/AH. Planning for discharge this week. Medication Compliance: Yes Side effects from medications: No Attending Groups: Yes Review of Systems Constitutional: Reports as per HPI Eyes: Reports as per HPI Reports as per HPI Cardiovascular: Reports as per HPI Respiratory: Reports as per HPI Gastrointestinal: Reports as per HPI Genitourinary: Reports as per HPI Musculoskeletal: Reports as per HPI Skin/Breast: Reports as per HPI Reports as per HPI Psychiatric: Reports as per HPI Endocrine: Reports as per HPI Hematologic/Lymphatic: Reports as per HPI Allergic/Immunologic: Reports as per HPI Mental Status Exam Mental Status Exam Narrative: Pt is alert and oriented; behavior is cooperative and calm; dressed in casual attire; mood is described as okay ; eye contact appropriate; Speech is normal rate, volume and prosody and not pressured; thought process is organized; Thought content is on tx; otherwise pertinent to relevant topics and without any delusional content, paranoid ideations or grandiosity; denies SI/HI/VH/AH. Diagnostics Vital Signs (24Hr): Vital Signs - 24 hr 10/23/23 21:10 10/24/23 07:50 Temperature 97.3 F 97.5 F Pulse Rate 64 55 Respiratory Rate 18 18 Blood Pressure 109/62 106/65 Pulse Oximetry 98 97 Oxygen Delivery Method Room Air Room Air BMI result Body Mass Index 27.6 Labs 10/18/23 08:08 Medications Medications Current Medications Acetaminophen (Acetaminophen 325 Mg Tablet) 650 mg PO Q6H PRN PRN Reason: Pain, Mild (Pain Scale 1-3) Al Hydroxide/Mg Hydroxide (Magnesium Hydrox/Alum Hydrox 30 Ml Oral.Susp) 30 ml PO Q6H PRN PRN Reason: Heartburn/Nausea Baclofen (Baclofen 10 Mg Tablet) 10 mg PO BEDTIME SUKHDEEP Last Admin: 10/23/23 21:06 Dose: 10 mg Clonazepam (Clonazepam 1 Mg Tablet) 1 mg PO BID [facility]EP Last Admin: 10/24/23 08:45 Dose: 1 mg Clonidine HCl (Clonidine Hcl 0.1 Mg Tablet) 0.1 mg PO BID [facility]; Protocol Last Admin: 10/24/23 08:47 Dose: 0.1 mg Doxycycline Monohydrate (Doxycycline Monohydrate 100 Mg Capsule) 100 mg PO Q12H [facility] Last Admin: 10/24/23 08:46 Dose: 100 mg Fluoxetine HCl (Fluoxetine Hcl 20 Mg Capsule) 40 mg PO DAILY [facility] Last Admin: 10/24/23 08:45 Dose: 40 mg Gabapentin (Gabapentin 600 Mg Tablet) 600 mg PO TID [facility] Last Admin: 10/24/23 08:45 Dose: 600 mg Hydroxyzine HCl (Hydroxyzine Hcl 25 Mg Tablet) 25 mg PO Q6H PRN PRN Reason: Anxiety Last Admin: 10/23/23 17:57 Dose: 25 mg Magnesium Hydroxide (Milk Of Magnesia 30 Ml Oral.Susp) 30 ml PO DAILY PRN PRN Reason: Constipation Melatonin (Melatonin 3 Mg Tablet) 6 mg PO BEDTIME PRN PRN Reason: Insomnia Last Admin: 10/22/23 22:58 Dose: 6 mg Methadone HCl (Methadone Hcl 20 Mg/2 Ml Oral.Conc) 145 mg PO DAILY [facility] Last Admin: 10/24/23 08:49 Dose: 145 mg Mirtazapine (Mirtazapine 7.5 Mg Tablet) 7.5 mg PO BEDTIME PRN PRN Reason: insomnia Last Admin: 10/23/23 21:07 Dose: 7.5 mg Nicotine (Nicotine 14 Mg Patch.Td24) 14 mg TRANSDERMA DAILY [facility] Last Admin: 10/24/23 08:48 Dose: 14 mg Nicotine Polacrilex (Nicotine Polacrilex 2 Mg Gum) 4 mg BUCCAL Q2H PRN PRN Reason: craving Last Admin: 10/24/23 08:47 Dose: 4 mg Oxycodone HCl (Oxycodone Hcl Immed Release 5 Mg Tablet) 10 mg PO Q6H PRN PRN Reason: Pain, Severe (Pain Scale 7-10) Last Admin: 10/24/23 08:47 Dose: 10 mg Quetiapine Fumarate (Quetiapine Fumarate 100 Mg Tablet) 100 mg PO BEDTIME PRN PRN Reason: Sleep Last Admin: 10/23/23 21:06 Dose: 100 mg Quetiapine Fumarate (Quetiapine Fumarate 25 Mg Tablet) 25 mg PO BID PRN PRN Reason: Anxiety Last Admin: 10/23/23 17:57 Dose: 25 mg Allergies Allergies Allergy/AdvReac Type Severity Reaction Status Date / Time Pertussis Vaccines Allergy Mild HIVES Verified 02/13/23 19:58 [PERTUSSIS VACCINES] Assessment & Plan Assessment & Plan (1) Major depressive disorder, recurrent severe without psychotic features: Status: Acute Code(s): F33.2 - Major depressive disorder, recurrent severe without psychotic features (2) Opioid use disorder: Status: Acute Code(s): F11.90 - Opioid use, unspecified, uncomplicated (3) Cocaine use disorder: Status: Acute Code(s): F14.10 - Cocaine abuse, uncomplicated Plan Patient is a 33 year old male with hx of MDD, PTSD, opioid use d/o and cocaine use d/o was admitted from medical unit d/t suicidal ideation secondary to increased depressive symptoms. Plan: CV 15 minute safety checks Consult to wound care for arm continue home medications; Clonidine and klonopin decreased from TID to BID d/t pt's low BP and recent substance abuse; pt aware. 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 discharge planning 10/19/23 education re: low BP and to increase intake of moderate table salt/salt food and increase fluid intake. trial of remeron 3.75mg at bedtime prn insomnia no increase of clonazepam at this time due to low BP 10/19: Pt reports feeling okay today; pt stated, I feel like my depression is getting better with the meds. I didn't sleep well last night because I was dreaming about drugs . pt denies SI/HI/VH/AH. continue current tx plan. 10/20: pt stated, I'm still interested in going to an IOP; and not a program where I can't leave . pt denies SI/HI/VH/AH. slept 8 hours last night per nursing staff. 10/21: active on unit. social with peers, attending groups. Pt reports feeling like my depression is getting better but I'm still anxious ; pt denies SI/HI/VH/AH. continue current tx plan. 10/22: active on unit. social with peers, attending groups. Pt stated, My depression isn't so bad today. I'm trying to be hopeful. My mom is going to be visiting me today. She's always supportive .; pt denies SI/HI/VH/AH. Pt requesting for remeron to be increased to 7.5mg PO PRN for sleep. 10/23: Pt reports feeling okay today; he reports visit with mother went well yesterday. Pt waiting to find out which IOP he will be able to attend. Denies SI/HI/VH/AH. Planning for discharge this week. Patient educated on: diagnosis and medication risk/benefits Informed Consent: understands Reason for continued inpatient stay Substantial Risk for: med/psych decompensation Time Spent With Patient Time: Total time managing care of this patient today _20___ minutes.
[2023-10-24] MEDS: hydrOXYzine HCL 25 MG TABLET PO (12:34)
[2023-10-24] MEDS: QUEtiapine Fumarate 25 MG TABLET PO (12:34)
[2023-10-24 21:00] VITALS: BP 101/60; PULSE 65; RESP 18; TEMP 36.8; O2SAT 100
[2023-10-24] MEDS: Baclofen 10 MG TABLET PO (21:01)
[2023-10-24] MEDS: QUEtiapine Fumarate 100 MG TABLET PO (21:05)
[2023-10-24] MEDS: Mirtazapine 7.5 MG TABLET PO (21:05)
[2023-10-25] MEDS: Nicotine Polacrilex 2 MG GUM 4 MG BUCCAL ×4 (04:07→18:33)
[2023-10-25] MEDS: oxyCODONE HCl Immed Release 5 MG TABLET 10 MG PO ×2 (04:07→10:16)
--- NOTE | 2023-10-25 04:09 | PC.NURSE ---
Andrey reporting left arm pain 9/10, was given oxycodone 10 mg PO prn
[2023-10-25 07:39] VITALS: BP 104/61; PULSE 60; RESP 14; TEMP 36.3; O2SAT 99
--- NOTE | 2023-10-25 09:13 | P.PNPSI_ITS ---
Subjective Subjective Date of Service: 10/25/23 Reason For Visit: Major Depression Subjective Notes: Conditional Voluntary Interim History: Reviewed with Dr. Johnson. Pt reports feeling good today; pt stated, I feel ready to go. My mom is going to bring me to meetings until the IOP starts . Pt reports he plans on following up with outpatient providers regarding his arm and mental health. Denies SI/HI/VH/AH. Medication Compliance: Yes Side effects from medications: No Attending Groups: Yes Review of Systems Constitutional: Reports as per HPI Eyes: Reports as per HPI Reports as per HPI Cardiovascular: Reports as per HPI Respiratory: Reports as per HPI Gastrointestinal: Reports as per HPI Genitourinary: Reports as per HPI Musculoskeletal: Reports as per HPI Skin/Breast: Reports as per HPI Reports as per HPI Psychiatric: Reports as per HPI Endocrine: Reports as per HPI Hematologic/Lymphatic: Reports as per HPI Allergic/Immunologic: Reports as per HPI Mental Status Exam Mental Status Exam Narrative: Pt is alert and oriented; behavior is cooperative and calm; dressed in casual attire; mood is described as good ; eye contact appropriate; Speech is normal rate, volume and prosody and not pressured; thought process is organized; Thought content is on tx; otherwise pertinent to relevant topics and without any delusional content, paranoid ideations or grandiosity; denies SI/HI/VH/AH. Diagnostics Vital Signs (24Hr): Vital Signs - 24 hr 10/24/23 21:00 10/25/23 07:39 Temperature 98.3 F 97.4 F Pulse Rate 65 60 Respiratory Rate 18 14 Blood Pressure 101/60 104/61 Pulse Oximetry 100 99 Oxygen Delivery Method Room Air Room Air BMI result Body Mass Index 27.6 Labs 10/18/23 08:08 Medications Medications Current Medications Acetaminophen (Acetaminophen 325 Mg Tablet) 650 mg PO Q6H PRN PRN Reason: Pain, Mild (Pain Scale 1-3) Al Hydroxide/Mg Hydroxide (Magnesium Hydrox/Alum Hydrox 30 Ml Oral.Susp) 30 ml PO Q6H PRN PRN Reason: Heartburn/Nausea Baclofen (Baclofen 10 Mg Tablet) 10 mg PO BEDTIME SUKH[facility]EP Last Admin: 10/24/23 21:01 Dose: 10 mg Clonazepam (Clonazepam 1 Mg Tablet) 1 mg PO BID [facility] Last Admin: 10/24/23 21:01 Dose: 1 mg Clonidine HCl (Clonidine Hcl 0.1 Mg Tablet) 0.1 mg PO BID [facility]; Protocol Last Admin: 10/24/23 21:01 Dose: 0.1 mg Doxycycline Monohydrate (Doxycycline Monohydrate 100 Mg Capsule) 100 mg PO Q12H [facility] Last Admin: 10/24/23 21:01 Dose: 100 mg Fluoxetine HCl (Fluoxetine Hcl 20 Mg Capsule) 40 mg PO DAILY [facility] Last Admin: 10/24/23 08:45 Dose: 40 mg Gabapentin (Gabapentin 600 Mg Tablet) 600 mg PO TID [facility] Last Admin: 10/24/23 21:01 Dose: 600 mg Hydroxyzine HCl (Hydroxyzine Hcl 25 Mg Tablet) 25 mg PO Q6H PRN PRN Reason: Anxiety Last Admin: 10/24/23 12:34 Dose: 25 mg Magnesium Hydroxide (Milk Of Magnesia 30 Ml Oral.Susp) 30 ml PO DAILY PRN PRN Reason: Constipation Melatonin (Melatonin 3 Mg Tablet) 6 mg PO BEDTIME PRN PRN Reason: Insomnia Last Admin: 10/22/23 22:58 Dose: 6 mg Methadone HCl (Methadone Hcl 20 Mg/2 Ml Oral.Conc) 145 mg PO DAILY [facility] Last Admin: 10/24/23 08:49 Dose: 145 mg Mirtazapine (Mirtazapine 7.5 Mg Tablet) 7.5 mg PO BEDTIME PRN PRN Reason: insomnia Last Admin: 10/24/23 21:05 Dose: 7.5 mg Nicotine (Nicotine 14 Mg Patch.Td24) 14 mg TRANSDERMA DAILY [facility] Last Admin: 10/24/23 08:48 Dose: 14 mg Nicotine Polacrilex (Nicotine Polacrilex 2 Mg Gum) 4 mg BUCCAL Q2H PRN PRN Reason: craving Last Admin: 10/25/23 04:07 Dose: 4 mg Oxycodone HCl (Oxycodone Hcl Immed Release 5 Mg Tablet) 10 mg PO Q6H PRN PRN Reason: Pain, Severe (Pain Scale 7-10) Last Admin: 10/25/23 04:07 Dose: 10 mg Quetiapine Fumarate (Quetiapine Fumarate 100 Mg Tablet) 100 mg PO BEDTIME PRN PRN Reason: Sleep Last Admin: 10/24/23 21:05 Dose: 100 mg Quetiapine Fumarate (Quetiapine Fumarate 25 Mg Tablet) 25 mg PO BID PRN PRN Reason: Anxiety Last Admin: 10/24/23 12:34 Dose: 25 mg Allergies Allergies Allergy/AdvReac Type Severity Reaction Status Date / Time Pertussis Vaccines Allergy Mild HIVES Verified 02/13/23 19:58 [PERTUSSIS VACCINES] Assessment & Plan Assessment & Plan (1) Major depressive disorder, recurrent severe without psychotic features: Status: Acute Code(s): F33.2 - Major depressive disorder, recurrent severe without psychotic features (2) Opioid use disorder: Status: Acute Code(s): F11.90 - Opioid use, unspecified, uncomplicated (3) Cocaine use disorder: Status: Acute Code(s): F14.10 - Cocaine abuse, uncomplicated Plan Patient is a 33 year old male with hx of MDD, PTSD, opioid use d/o and cocaine use d/o was admitted from medical unit d/t suicidal ideation secondary to increased depressive symptoms. Plan: CV 15 minute safety checks Consult to wound care for arm continue home medications; Clonidine and klonopin decreased from TID to BID d/t pt's low BP and recent substance abuse; pt aware. 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 discharge planning 10/19/23 education re: low BP and to increase intake of moderate table salt/salt food and increase fluid intake. trial of remeron 3.75mg at bedtime prn insomnia no increase of clonazepam at this time due to low BP 10/19: Pt reports feeling okay today; pt stated, I feel like my depression is getting better with the meds. I didn't sleep well last night because I was dreaming about drugs . pt denies SI/HI/VH/AH. continue current tx plan. 10/20: pt stated, I'm still interested in going to an IOP; and not a program where I can't leave . pt denies SI/HI/VH/AH. slept 8 hours last night per nursing staff. 10/21: active on unit. social with peers, attending groups. Pt reports feeling like my depression is getting better but I'm still anxious ; pt denies SI/HI/VH/AH. continue current tx plan. 10/22: active on unit. social with peers, attending groups. Pt stated, My depression isn't so bad today. I'm trying to be hopeful. My mom is going to be visiting me today. She's always supportive .; pt denies SI/HI/VH/AH. Pt requesting for remeron to be increased to 7.5mg PO PRN for sleep. 10/23: Pt reports feeling okay today; he reports visit with mother went well yesterday. Pt waiting to find out which IOP he will be able to attend. Denies SI/HI/VH/AH. Planning for discharge this week. 10/24: Pt reports feeling good today; pt stated, I feel ready to go. My mom is going to bring me to meetings until the IOP starts . Pt reports he plans on following up with outpatient providers regarding his arm and mental health. Denies SI/HI/VH/AH. Patient educated on: diagnosis, medication risk/benefits, substance abuse and therapeutic strategies Informed Consent: understands Reason for continued inpatient stay Substantial Risk for: stable for discharge Time Spent With Patient Time: Total time managing care of this patient today _20___ minutes.
[2023-10-25] MEDS: FLUoxetine HCl 20 MG CAPSULE 40 MG PO (09:33)
[2023-10-25] MEDS: Gabapentin 600 MG TABLET PO ×3 (09:34→20:28)
[2023-10-25] MEDS: clonazePAM 1 MG TABLET PO ×2 (09:34→20:28)
[2023-10-25] MEDS: Doxycycline Monohydrate 100 MG CAPSULE PO (09:34)
[2023-10-25] MEDS: cloNIDine HCL 0.1 MG TABLET PO ×2 (09:35→20:29)
[2023-10-25] MEDS: methADONE HCl 20 MG/2 ML ORAL.CONC 145 MG PO (09:37)
[2023-10-25] MEDS: Nicotine 14 MG PATCH.TD24 TRANSDERMA (09:39)
--- NOTE | 2023-10-25 10:28 | HO.WOUND ---
Wound Consult: Follow up 33yr old?[place] [facility] [place] - See progress notes and H&P for detailed history. Recent transfer to [facility] Inpatient Unit. Wound consult Follow up for Left Arm wounds secondary to IVDU injection site. Patient agreeable to assessment and photo documentation.? Hydrocoloid dressing and xeroform dressing removed - improved wound bed - see below for details. Will switch back to hydrocolloid dressing with ABD pad taped in place Change every 3 days. Hydrocolloid dressing. Discharge supplies provided to patient for use at home. Patient aware of [facility] and topical care instructions. Left Forearm 10/17/23 initial assessment 10/18/23 - Improved wound bed 10/25/23 Continued Improved Wound bed Left Forearm posterior side 10/17/23 10/25/23 Left posterior forearm - resurfacing wound beds Etiology: Ulceration secondary to IVDU injection Wound Bed: Significantly improved wound bed appearsance - resurfacing in all areas - there appears to be areas of full and partial thickness tissue loss Drainage / Odor: clear serosang drainage no odor noted Edges: ? irregular Corinne wound: ?red erythema with soft induration, No Fluctuance noted Pain: mild pain reported Goals of Treatment: ? Moist wound healing with Hydrocolloid Recommendations: 1. Left Forearm Posterior Site / Anterior site - Cleanse with NS, pat dry. Cover with Hydrocolloid dressing for moist wound environment. Change every other day - every 3rd day. Re-consult wound care Nurse for wound deterioration or wound changes
[2023-10-25] MEDS: QUEtiapine Fumarate 25 MG TABLET PO (14:11)
[2023-10-25] MEDS: hydrOXYzine HCL 25 MG TABLET PO (14:11)
[2023-10-25 20:21] VITALS: BP 109/60; PULSE 66; RESP 16; TEMP 36.3; O2SAT 97
[2023-10-25] MEDS: Mirtazapine 7.5 MG TABLET PO (20:28)
[2023-10-25] MEDS: QUEtiapine Fumarate 100 MG TABLET PO (20:28)
[2023-10-25] MEDS: Melatonin 3 MG TABLET 6 MG PO (20:28)
[2023-10-25] MEDS: Baclofen 10 MG TABLET PO (20:29)
[2023-10-26] MEDS: oxyCODONE HCl Immed Release 5 MG TABLET 10 MG PO (04:29)
[2023-10-26] MEDS: cloNIDine HCL 0.1 MG TABLET PO (08:21)
[2023-10-26] MEDS: Gabapentin 600 MG TABLET PO (08:21)
[2023-10-26] MEDS: Nicotine 14 MG PATCH.TD24 TRANSDERMA (08:21)
[2023-10-26] MEDS: methADONE HCl 20 MG/2 ML ORAL.CONC 145 MG PO (08:21)
[2023-10-26] MEDS: FLUoxetine HCl 20 MG CAPSULE 40 MG PO (08:21)
[2023-10-26] MEDS: clonazePAM 1 MG TABLET PO (08:27)
[2023-10-26] MEDS: Nicotine Polacrilex 2 MG GUM 4 MG BUCCAL (08:41)
[2023-10-26] MEDS: Naloxone HCl Nasal TAKE HOME 4 MG SPRAY 8 MG NOSTRILALT (09:11)
--- NOTE | 2023-10-26 09:24 | P.DS_ITS ---
DS: Providers Provider Date of Service: 10/26/23 Date of admission: 10/17/23 21:46 Date of discharge: 10/26/23 Primary care physician: Nonstaff Physician Admitting clinician: Arlene Reina Attending physician on admission: Rdudy Johnson Consults: 10/17/23 23:57 Addiction Medicine Stat Consulting Provider: Addiction Covering Reason for consultation: Cocaine withdrawal Has provider been notified: Yes 10/18/23 09:42 Consult to Wound Care Routine Reason for consultation: wound management Has provider been notified: Yes Attending physician on discharge: Ruddy Johnson Discharging clinician: Arlene Reina DS: Diagnosis Discharge Diagnosis (1) Major depressive disorder, recurrent severe without psychotic features: Status: Acute (2) Opioid use disorder: Status: Acute (3) Cocaine use disorder: Status: Acute DS: Medications Discharge Medications Home Medications: Home Medications Medication Instructions Recorded Confirmed baclofen 10 mg tablet 10 mg PO BEDTIME cocaine withdrawal 10/13/23 10/20/23 fluoxetine 40 mg capsule 40 mg PO DAILY 10/13/23 10/20/23 gabapentin 600 mg tablet 600 mg PO TID 10/13/23 10/20/23 methadone 10 mg/mL oral 145 mg PO DAILY 10/13/23 10/20/23 concentrate (Methadone Intensol) quetiapine 100 mg tablet 100 - 200 mg PO BEDTIME PRN Sleep 10/13/23 10/20/23 Previous Rx's Medication Instructions Recorded clonazepam 1 mg tablet 1 mg PO BID #0 tabs 10/25/23 clonidine HCl 0.1 mg tablet 0.1 mg PO BID #0 tabs 10/25/23 oxycodone 10 mg tablet 10 mg PO Q12H PRN severe pain 10/26/23 (scale score 7-10) 1 day #2 tabs Mental Status Exam Mental Status Exam Narrative: Pt is alert and oriented; behavior is cooperative and calm; dressed in casual attire; mood is described as good ; eye contact appropriate; Speech is normal rate, volume and prosody and not pressured; thought process is organized; Thought content is on tx; otherwise pertinent to relevant topics and without any delusional content, paranoid ideations or grandiosity; denies SI/HI/VH/AH. DS: Summary Hospital Course Hospital Course: Patient is a 33 year old male with hx of MDD, PTSD, opioid use d/o and cocaine use d/o was admitted from medical unit d/t suicidal ideation secondary to increased depressive symptoms. Per crisis report, pt presented to [facility] on 10/13/23 secondary to medical complaints of cellulitis. On 10/17/23, pt was referred to care team d/t suicidal ideation with plan to overdose. Pt was last admitted psychiatrically 07/2022 at [facility]. During admission assessment, pt presents calm and cooperative. Pt reports feeling depressed ; pt stated, I'm feeling depressed because of different anniversaries this time of year. My dad passed in September 2017, my fiance in October, 5 years ago. I still can't get over it. The drug addiction doesn't help. I wasn't taking my meds like I was supposed to . Pt reports he is not interested in going to a program; I'm just interested in getting my meds regulated, going to an IOP and getting a therapist . When asked how he plans on staying sober; pt stated, I've tried detox's before and they don't help. NA meetings are more helpful, so I'm going to do that and see a therapist . Pt reports he has been using 3 grams of cocaine and 10 bags of heroin daily ; pt reports he got my wound on my arm from injecting Xylazine, it eats at your skin . Pt reports suicidal ideation with plan to overdose on substances. pt denies HI/VH/AH. Pt reports his biggest motivator is his mother; pt stated, she's a good motivator to keep me alive and going . During hospital course, CV 15 minute safety checks Consult to wound care for arm continue home medications; Clonidine and klonopin decreased from TID to BID d/t pt's low BP and recent substance abuse; pt aware. 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 discharge planning education re: low BP and to increase intake of moderate table salt/salt food and increase fluid intake. trial of remeron 3.75mg at bedtime prn insomnia no increase of clonazepam at this time due to low BP Pt reports feeling okay today; pt stated, I feel like my depression is getting better with the meds. I didn't sleep well last night because I was dreaming about drugs . pt denies SI/HI/VH/AH. continue current tx plan. pt stated, I'm still interested in going to an IOP; and not a program where I can't leave . pt denies SI/HI/VH/AH. slept 8 hours last night per nursing staff. active on unit. social with peers, attending groups. Pt reports feeling like my depression is getting better but I'm still anxious ; pt denies SI/HI/VH/AH. continue current tx plan. active on unit. social with peers, attending groups. Pt stated, My depression isn't so bad today. I'm trying to be hopeful. My mom is going to be visiting me today. She's always supportive .; pt denies SI/HI/VH/AH. Pt requesting for remeron to be increased to 7.5mg PO PRN for sleep. Pt reports feeling okay today; he reports visit with mother went well yesterday. Pt waiting to find out which IOP he will be able to attend. Denies SI/HI/VH/AH. Planning for discharge this week. Pt reports feeling good today; pt stated, I feel ready to go. My mom is going to bring me to meetings until the IOP starts . Pt reports he plans on following up with outpatient providers regarding his arm and mental health. Denies SI/HI/VH/AH. Time spent discussing smoking cessation with patient: 3 to 10 minutes Status at Discharge Cognitive/behavioral status at discharge: Patient was interviewed prior to discharge and found to be fully oriented and without any SI or HI. Patient has insight and demonstrates good judgment in terms of wanting to pursue treatment. Patient has a safety plan that includes presenting to the closest ER or calling 911 if feeling unsafe. Functional status at discharge: independent ambulation Overall status at discharge: patient is back to baseline Time Spent with Patient Time attestation: Total time managing care of this patient today _30___ minutes. Time spent: Less than 30 minutes Discharge Plan Discharge Anticipated Discharge Date/Time: 10/26/23 11:30 Patient Disposition: Home, Self-Care Discharge Diagnosis: MDD, cocaine use d/o, opioid use d/o Referrals: Flo Strickland (Psychiatry) [Other] - 10/27/23 2:00 pm [facility] (Therapy) [Other] - 10/28/23 11:00 am (IN OFFICE APPOINTMENT -Please arrive fifteen minutes early to your appointment in order to fill out necessary paperwork. ) Intensive Outpatient Program (IOP) [Other] - 10/27/23 9:30 am (*This is your intake appointment for the IOP program* THIS APPOINTMENT WILL BE DONE OVER THE PHONE) [facility] [Provider Group] - 1 Week Discharge Medications: New clonidine HCl 0.1 mg Tablet 0.1 mg PO BID Qty: 0 0RF Protocol: Hold for SBP< HOLD for SBP < : 90 clonazepam 1 mg Tablet 1 mg PO BID Qty: 0 0RF oxycodone 10 mg tablet 10 mg PO Q12H PRN (Reason: severe pain (scale score 7-10)) 1 Days Qty: 2 0RF Rx Instructions: Partial Fill upon patient request. Continued methadone [Methadone Intensol] 10 mg/mL Concentrate 145 mg PO DAILY fluoxetine 40 mg capsule 40 mg PO DAILY quetiapine 100 mg tablet 100 - 200 mg PO BEDTIME PRN (Reason: Sleep) baclofen 10 mg tablet 10 mg PO BEDTIME gabapentin 600 mg tablet 600 mg PO TID Discontinued clonidine HCl 0.1 mg tablet 0.1 mg PO TID clonazepam 1 mg tablet 1 mg PO TID gabapentin 300 mg capsule 300 mg PO BEDTIME doxycycline hyclate 100 mg tablet 100 mg PO BID 7 Days Qty: 14 0RF Discharge Orders: Discharge Order (Routine); Ordered 10/26/23 Ordered By: Arlene Reina Diet: Regular diet Activity on Discharge: As tolerated Stand Alone Forms: Patient Portal Discharge page, Community Support Activity Restrictions/Additional Instructions: Topical Wound Care Recommendations: Left Forearm Posterior Site / Anterior site - Cleanse with NS or routine showering, pat dry. Cover with Hydrocolloid dressing for moist wound environment. Change every other day - every 3rd day. Care Plan Goals: Maintain mood and safe behaviors Take medications as prescribed Continue to pursue sobriety Practice coping skills Continue with outpatient providers and reach out to them as needed Health Concerns: Mood stability and behaviors Sobriety Plan of Treatment: Follow up with your PCP, psychiatric provider and other outpatient providers regarding above concerns Take medications as prescribed Assessment: Patient was interviewed prior to discharge and found to be fully oriented and without any SI or HI. Patient has insight and demonstrates good judgment in terms of wanting to pursue treatment. Patient has a safety plan that includes presenting to the closest ER or calling 911 if feeling unsafe.
[2023-10-26 10:01] VITALS: BP 121/61; PULSE 70; RESP 20; TEMP 36.2; O2SAT 98
== END 2023-10-26 11:20 | disposition home or self-care (01) | DRG 751 ==
PROVIDERS: Admitting Provider Registered Nurse; Responsible Provider Registered Nurse; Visit Provider Psychiatry & Neurology Psychiatry
DX: F33.2 Major depressive disorder, recurrent severe without psychotic features (principal); R45.851 Suicidal ideations; F11.20 Opioid dependence, uncomplicated; F14.10 Cocaine abuse, uncomplicated; F43.10 Post-traumatic stress disorder, unspecified; F17.210 Nicotine dependence, cigarettes, uncomplicated; Z71.6 Tobacco abuse counseling; Z79.899 Other long term (current) drug therapy
CPT/HCPCS: 36415; 80053; 80061; 90686

== ENCOUNTER → 2023-10-17 21:46 | Outpatient (BNV) | payer OTHER, SELFPAY | PROVIDERS: Admitting Provider Registered Nurse; Responsible Provider Registered Nurse; Visit Provider Registered Nurse | DX: F33.2 Major depressive disorder, recurrent severe without psychotic features (principal); F14.10 Cocaine abuse, uncomplicated; F11.90 Opioid use, unspecified, uncomplicated | CPT/HCPCS: 90792; 99231; 99232; 99238 ==

== ENCOUNTER 2023-12-04 23:30 | Inpatient (IN) | payer OTHER, SELFPAY ==
[2023-12-04 23:35] VITALS: BP 118/75; PULSE 104; RESP 16; TEMP 37.2; O2SAT 96; BMI 27.9
[2023-12-05] VITALS (7 sets, daily range): BP systolic 91–115; BP diastolic 51–66; PULSE 64–92; RESP 12–20; TEMP 36.6–37.1; O2SAT 94–97
[2023-12-05 00:19] LABS: Lactic Acid 0.8 mmol/L (0.5-2.0)
[2023-12-05 00:24] LABS: Alanine Aminotransferase 17 U/L (0-40); Albumin Level 3.8 g/dL (3.5-5.0); Alkaline Phosphatase 81 U/L (39-117); Anion Gap 15 (12-20); Aspartate Amino Transferase 15 U/L (5-37); Bilirubin Total 0.2 mg/dL (0.0-1.0); Blood Urea Nitrogen 15 mg/dL (9-16); C Reactive Protein 5.65 mg/dL (< or = 0.50); Calcium 9.8 mg/dL (8.4-10.2); Carbon Dioxide 24 mmol/L (22-29); Chloride 103 mmol/L (96-108); Estimated Glomerular Filt Rate > 60; Glucose Random 108 mg/dL (60-115); Sodium 138 mmol/L (135-145); Total Protein 7.9 g/dL (6.5-8.0)
--- NOTE | 2023-12-05 00:51 | ED_ITS ---
HPI - Skin/Abscess/Foreign Bdy General Chief complaint: Skin/Abscess/Foreign Body Stated complaint: left arm infection, right arm no feeling Time Seen by Provider: 12/05/23 00:38 Source: patient Mode of arrival: ambulatory Limitations: no limitations History of Present Illness HPI narrative: 33-year-old male with a history of diabetes, asthma, anxiety, depression, MRSA bacteremia, cocaine and opiate injection use disorder, arms skin ulcers who presents emergency department for evaluation of cellulitis to the left and right forearms and right hand weakness with wrist drop x2 days. Patient states that 2 days prior he injected into his right wrist, passed out and then when he woke up his right hand and wrist were uncoordinated and weak which is new. He states that he has had fever, chills, cough, chest pain, myalgias and arthralgias. Patient continues to inject heroin and cocaine 10-15 times a day. Patient was recently hospitalized here from until 10/17/2023 for cellulitis. Related Data Home Medications ?Medication ?Instructions ?Recorded ?Confirmed baclofen 10 mg tablet 10 mg PO BEDTIME cocaine withdrawal 10/13/23 10/20/23 fluoxetine 40 mg capsule 40 mg PO DAILY 10/13/23 10/20/23 gabapentin 600 mg tablet 600 mg PO TID 10/13/23 10/20/23 methadone 10 mg/mL oral 145 mg PO DAILY 10/13/23 10/20/23 concentrate (Methadone Intensol) quetiapine 100 mg tablet 100 - 200 mg PO BEDTIME PRN Sleep 10/13/23 10/20/23 Previous Rx's ?Medication ?Instructions ?Recorded clonazepam 1 mg tablet 1 mg PO BID #0 tabs 10/25/23 clonidine HCl 0.1 mg tablet 0.1 mg PO BID #0 tabs 10/25/23 oxycodone 10 mg tablet 10 mg PO Q12H PRN severe pain 10/26/23 (scale score 7-10) 1 day #2 tabs Allergies Allergy/AdvReac Type Severity Reaction Status Date / Time Pertussis Vaccines Allergy Mild HIVES Verified 12/04/23 23:39 [PERTUSSIS VACCINES] Review of Systems 2 Review of Systems: Yes all other systems are reviewed and are negative PMFSH Past Medical History Medical History (Updated 12/05/23 @ 01:21 by Stephen Carlos MD) Arm ulcer MRSA bacteremia Suicidal ideation Depression Diabetes Cocaine use with cocaine-induced disorder Opiate dependence, continuous Major depressive disorder, recurrent severe without psychotic features Depression Anxiety IVDU (intravenous drug user) Diabetes Asthma Family History Family History Father Heart disease Social History Social History Household Members: Family Household Members Other:: Mother and brother Housing: House Do you presently have visiting nurse or other home services: No Alcohol intake: unknown Comment: 1:1 sitter present for SI plan Patient Tobacco Use Status: Current everyday Tobacco user Tobacco use type: Cigarette Cigarette Packs Per Day: 1 Cigarettes Per Day: 30 Years Smoked: 15 e-Cigarette/Vaping Use: Former Use Second Hand Smoke Exposure: No Substance Use Type: Crack/Cocaine, Heroin, Marijuana and Opiates Advance Directives: No Advance Directives Information Provided: No Advance Directives Date on File: 01/30/21 Do you have a plan to hurt others: No Plan service: No Current occupational status: unemployed Sexual orientation: Straight/Heterosexual Physical Exam 2 Vital Signs: Vital Signs: Last Vital Signs Temp 98.6 F 12/05/23 00:32 Pulse 92 12/05/23 00:32 Resp 17 12/05/23 00:32 BP 115/66 12/05/23 00:32 Pulse Ox 97 12/05/23 00:32 O2 Del Method Room Air 12/05/23 00:32 BMI result Body Mass Index 27.9 Vital signs were normal Exam: General: Awake, alert in no distress Head: Normocephalic, atraumatic EENT: PERRL, Lids normal, sclera normal, conjunctiva normal, nose normal , ears normal, throat without erythema or exudates Neck: Supple, no adenopathy Lung: breath sounds symmetric, no wheezing, rales or rhonchi Chest: symmetric movement, nontender Heart: regular rate and rhythm, normal S1, S2 no murmurs or rubs Abdomen: soft, non-tender, nondistended, normal bowel sounds Back: no vertebral tenderness, no CVAT Extremities: Patient has significant erythema with soft tissue swelling of his left arm from his elbow to his hand with chronic appearing skin ulcers, the erythema is warm to the touch. Patient also has erythema with increased warmth and chronic appearing skin ulcers to the right medial aspect of the elbow and forearm. Patient has a right wrist drop Neuro: Awake, alert, oriented, normal speech, cranial nerves intact, moves all extremities symmetrically Psych: Pleasant, cooperative Medications Administered Generic Name Dose Route Start Last Admin Trade Name Roldanq PRN Reason Stop Dose Admin Sodium Chloride 1,000 mls @ 999 mls/hr 12/05/23 00:53 12/05/23 01:12 Ns IV 12/05/23 01:53 999 mls/hr .Q1H1M STA Administration Piperacillin Sod/Tazobactam 100 mls @ 200 mls/hr 12/05/23 01:14 12/05/23 01:23 Sod 4.5 gm/ Sodium Chloride IV 12/05/23 01:43 200 mls/hr ONCE ONE Administration Medical Decision Making Medical Decision Making [facility] Narrative: 33-year-old male with a history of diabetes, asthma, anxiety, depression, MRSA bacteremia, cocaine and opiate injection use disorder, arms skin ulcers who presents emergency department for evaluation of cellulitis to the left and right forearms and right hand weakness with wrist drop x2 days. He injects 10-15 bags of heroin and cocaine daily. He states that he has had fever, chills, cough, chest pain, myalgias and arthralgias. Patient continues to inject heroin and cocaine 10-15 times a day. Patient was recently hospitalized here from until 10/17/2023 for cellulitis. Vital signs were normal. Physical examination is consistent with cellulitis to the left arm from the elbow to the hand and the right lateral aspect of the elbow and forearm. Patient also has right hand wrist drop consistent with radial nerve palsy which occurred after the patient injected heroin and cocaine and fell asleep. 01:16 Differential diagnosis: ?Includes but is not limited to cellulitis, bacteremia, radial nerve (Tuesday night) palsy, anemia, electrolyte abnormalities Following evaluation was ordered: CBC, CMP, lactic acid, CRP, ESR, blood cultures x2 Patient was initially treated with the following: Vancomycin 2 g IV, Zosyn 4.5 g IV, normal saline x1 L IV Course: 01:16 My interpretation patient's laboratory evaluation as follows: WBC was normal 9600. Anemia with an H&H of 8.1 and 27.4. Elevated platelet count of 209430. CMP was normal. CRP elevated 5.65. ESR is pending. The patient's right wrist drop is consistent with radial nerve palsy from the patient falling asleep after injecting drugs and most likely compressing his radial nerve in the axilla. Patient was placed in a right wrist splint. Patient will need admission for treatment of his cellulitis. I discuss the patient's presentation over tiger text with the covering hospitalist, Dr. Gregorio. Admission/Observation Consideration of admission/observation: Escalation of care including admission/observation considered Lab Data [facility] Lab Attestation statement: I reviewed the patient's lab results. 12/05/23 01:01 12/05/23 00:01 Labs: Lab Results 12/05/23 12/05/23 Range/Units 00:01 01:01 WBC 9.2 (4.8-10.8) X10*3/uL RBC 4.43 L D (4.60-5.80) X10*6/uL Hgb 8.1 L D (14.0-18.0) g/dl Hct 27.4 L D (42.0-52.0) % MCV 61.9 L (80.0-98.0) fL MCH 18.3 L (27.0-33.0) pg MCHC 29.6 L (31.0-36.0) g/dl RDW 17.4 H (11.0-16.0) % Plt Count 410 H D (160-400) X10*3/uL MPV 9.8 (9.4-12.4) fL Absolute Nucleated RBC 0.000 (0.0-0.012) X10*3/uL Nucleated RBC % (auto) 0.0 (0.0-0.2) /100WBC Sodium 138 (135-145) mmol/L Potassium 4.0 (3.3-5.1) mmol/L Chloride 103 (96-108) mmol/L Carbon Dioxide 24 (22-29) mmol/L Anion Gap 15 (12-20) BUN 15 (9-16) mg/dL Creatinine 0.73 (0.5-1.4) mg/dL Estim Creat Clear Calc 156.0 Estimated GFR > 60 Random Glucose 108 (60-115) mg/dL Lactic Acid 0.8 1.1 (0.5-2.0) mmol/L Calcium 9.8 D (8.4-10.2) mg/dL Total Bilirubin 0.2 (0.0-1.0) mg/dL AST 15 (5-37) U/L ALT 17 (0-40) U/L Alkaline Phosphatase 81 (39-117) U/L C-Reactive Protein 5.65 H (< or = 0.50) mg/dL Total Protein 7.9 (6.5-8.0) g/dL Albumin 3.8 (3.5-5.0) g/dL External Record Review External record reviewed: Inpatient record Chronic Conditions Patient?s care impacted by: Other (Injection drug use) Discharge Plan Discharge Clinical Impression: Cellulitis of arm, left, Cellulitis of arm, right, Acute radial nerve palsy of left upper extremity Patient Disposition: Admitted As Inpatient Print Language: Salvadorean
[2023-12-05 01:09] LABS: Hematocrit 27.4 % (42.0-52.0); Hemoglobin 8.1 g/dl (14.0-18.0); Mean Corpuscular HGB Conc 29.6 g/dl (31.0-36.0); Mean Corpuscular Hemoglobin 18.3 pg (27.0-33.0); Mean Platelet Volume 9.8 fL (9.4-12.4); Platelet Count 410 X10*3/uL (160-400); Red Blood Count 4.43 X10*6/uL (4.60-5.80); Red Cell Distribution Width 17.4 % (11.0-16.0); White Blood Count 9.2 X10*3/uL (4.8-10.8)
[2023-12-05] MEDS: 0.9 % Sodium Chloride 1,000 ML 999 ML IV (01:12)
[2023-12-05 01:13] LABS: Mean Corpuscular Volume 61.9 fL (80.0-98.0)
[2023-12-05 01:23] LABS: Lactic Acid 1.1 mmol/L (0.5-2.0)
[2023-12-05] MEDS: Piperacillin Sodium/Tazobactam 4.5 GM in 0.9 % Sodium Chloride 100 ML IV (01:23)
[2023-12-05 01:51] LABS: Erythrocyte Sedimentation Rate 31 MM/HR (0-15)
[2023-12-05] MEDS: vancomycin/NS 2,000 MG/500 ML PLAST..BAG 250 MG IV (02:12)
--- NOTE | 2023-12-05 03:07 | PC.NURSE ---
Pt has been falling asleep while eating sherbert and in the middle of conversations. Pt admitted to using multiple bags of heroin and some cocaine prior to coming to ED around 10PM
[2023-12-05 05:27] LABS: MANUAL DIFF FLAG NO
[2023-12-05 05:29] LABS: Basophils Percent Auto 0.3 % (0-2); Eosinophils Absolute Auto 0.2 X10*3/uL (0.0-0.4); Eosinophils Percent Auto 1.7 % (0-4); Hematocrit 26.2 % (42.0-52.0); Hemoglobin 7.6 g/dl (14.0-18.0); Imm Gran Abs Auto 0.06 X10*3/uL (0.00-0.03); Imm Gran Pct Auto 0.6 % (0.0-0.4); Lymphocytes Absolute Auto 2.2 X10*3/uL (1.2-4.9); Lymphocytes Percent Auto 20.6 % (20-40); Mean Corpuscular Hemoglobin 18.1 pg (27.0-33.0); Mean Platelet Volume 9.6 fL (9.4-12.4); Monocytes Absolute Auto 0.9 X10*3/uL (0.1-1.2); Monocytes Percent Auto 8.7 % (2-11); Neutrophils Absolute Auto 7.2 x10*3/uL (2.0-8.3); Neutrophils Percent Auto 68.1 % (45-73); Platelet Count 383 X10*3/uL (160-400); Red Blood Count 4.19 X10*6/uL (4.60-5.80); Red Cell Distribution Width 17.7 % (11.0-16.0); White Blood Count 10.6 X10*3/uL (4.8-10.8)
[2023-12-05 05:30] LABS: Mean Corpuscular Volume 62.5 fL (80.0-98.0)
--- NOTE | 2023-12-05 06:00 | PM.IMHP ---
History of Present Illness Date of Service: 12/05/23 Attending physician on admission: Monserrat Jaimes Chief Complaint: Left arm swelling Andrey Monk is a 33 years old man with past medical history significant for IVDU (cocaine and opiate), asthma, anxiety, depression, MRSA bacteremia and arm skin ulcers presents to the ED for left and right for him + right hand weakness with wrist drop for 2 days. He has been injecting 10-15 bags of heroin and cocaine daily. He was recently (September 2023) hospitalized here for cellulitis. The right wrist drop occurred after he injected heroin and cocaine and fell asleep. In the ED, he was found to have stable vital signs. Blood workup showed no leukocytosis. Hemoglobin is 7.6 (it was 10.2 2 months ago). CRP is elevated, 5.65 There are no electrolyte imbalances. Renal function and LFTs are normal. ED tx: Velcro splint to the right wrist. Zosyn 4.5 mg IV, vancomycin 2 g IV. Review of Systems Review of Systems: Yes Other (currently intoxicated) [facility] Medical History (Updated 12/05/23 @ 01:21 by Stephen Carlos MD) Arm ulcer MRSA bacteremia Suicidal ideation Depression Diabetes Cocaine use with cocaine-induced disorder Opiate dependence, continuous Major depressive disorder, recurrent severe without psychotic features Depression Anxiety IVDU (intravenous drug user) Diabetes Asthma Family History Father Heart disease Social History Household Members: Family Household Members Other:: Mother and brother Housing: House Do you presently have visiting nurse or other home services: No Alcohol intake: unknown Comment: 1:1 sitter present for SI plan Patient Tobacco Use Status: Current everyday Tobacco user Tobacco use type: Cigarette Cigarette Packs Per Day: 1 Cigarettes Per Day: 30 Years Smoked: 15 Smoked in Last 30 Days: Yes e-Cigarette/Vaping Use: Former Use Second Hand Smoke Exposure: No Use of substances other than those prescribed or required for medical reasons: Yes Substance Use Type: Crack/Cocaine and Heroin Substance Use Frequency: Daily Advance Directives: No Advance Directives Information Provided: No Advance Directives Date on File: 01/30/21 Do you have a plan to hurt others: No Plan service: No Current occupational status: unemployed Sexual orientation: Straight/Heterosexual Meds Allergies Allergy/AdvReac Type Severity Reaction Status Date / Time Pertussis Vaccines Allergy Mild HIVES Verified 12/04/23 23:39 [PERTUSSIS VACCINES] Active Medications: Current Medications Acetaminophen (Acetaminophen 325 Mg Tablet) 975 mg PO Q6H PRN PRN Reason: mild pain, headache or fever Melatonin (Melatonin 3 Mg Tablet) 6 mg PO BEDTIME PRN PRN Reason: Insomnia Ondansetron HCl (Ondansetron Hcl 4 Mg/2 Ml Vial) 4 mg IVPUSH Q8H PRN PRN Reason: Nausea and Vomiting Pharmacy Consult (Consult Rx Vancomycin Dosing) 1 each MISCELLANE DAILY PRN PRN Reason: Consult order Sodium Chloride (0.9 % Sodium Chloride Flush 3 Ml Syringe) 3 ml IVFLUSH [facility] Home Medications ?Medication ?Instructions ?Recorded ?Confirmed ?Last Taken ?Type baclofen 10 mg tablet 10 mg PO BEDTIME cocaine withdrawal 10/13/23 10/20/23 Unknown History fluoxetine 40 mg capsule 40 mg PO DAILY 10/13/23 10/20/23 Unknown History gabapentin 600 mg tablet 600 mg PO TID 10/13/23 10/20/23 Unknown History methadone 10 mg/mL oral 145 mg PO DAILY 10/13/23 10/20/23 10/11/23 History concentrate (Methadone Intensol) quetiapine 100 mg tablet 100 - 200 mg PO BEDTIME PRN Sleep 10/13/23 10/20/23 Unknown History Physical Exam Vital Signs and Narrative: Vital Signs: Last Vital Signs Temp 97.8 F 12/05/23 05:11 Pulse 64 12/05/23 05:11 Resp 13 12/05/23 05:11 BP 97/59 L 12/05/23 05:11 Pulse Ox 96 12/05/23 05:11 O2 Del Method Room Air 12/05/23 05:11 BMI result Body Mass Index 27.9 Constitutional - Intoxicated. Opening eyes upon calling his name but fell asleep quickly. Eyes - PERRLA, EOMI Heart - RRR, No edema Lungs - Normal lung expansion, Normal respiratory effort, No respiratory distress, CTA bilaterally Abdomen - NT / ND; +BS; No rebound or guarding Extremities: Musculoskeletal - Normal inspection, normal ROM Skin - Warm/Dry Neurological - Intoxicated Results Labs 12/05/23 05:04 12/05/23 00:01 Labs: Laboratory Results - last 24 hr 12/05/23 12/05/23 12/05/23 00:01 01:01 05:04 MCV 61.9 L 62.5 L MCH 18.3 L 18.1 L MCHC 29.6 L 29.0 L RDW 17.4 H 17.7 H Plt Count 410 H D 383 MPV 9.8 9.6 Immature Gran % (Auto) 0.6 H Neut % (Auto) 68.1 Lymph % (Auto) 20.6 Mcintosh % (Auto) 8.7 Eos % (Auto) 1.7 Baso % (Auto) 0.3 Lymph # (Auto) 2.2 Mcintosh # (Auto) 0.9 Eos # (Auto) 0.2 Baso # (Auto) 0.0 Abs Immat Gran (auto) 0.06 H Absolute Neuts (auto) 7.2 Absolute Nucleated RBC 0.000 0.000 Nucleated RBC % (auto) 0.0 0.0 ESR 31 H Anion Gap 15 Estim Creat Clear Calc 156.0 Estimated GFR > 60 Random Glucose 108 Lactic Acid 0.8 1.1 Calcium 9.8 D Total Bilirubin 0.2 AST 15 ALT 17 Alkaline Phosphatase 81 Total Creatine Kinase 50 C-Reactive Protein 5.65 H Total Protein 7.9 Albumin 3.8 Assessment and Plan (1) Acute radial nerve palsy of left upper extremity: Status: Acute (2) Cellulitis of arm, right: Status: Acute (3) Cellulitis of arm, left: Status: Acute Plan Andrey Monk is a 33 years old man admitted with: Right forearm cellulitis associated with multiple infected ulcers secondary to IV drug use. Continue empiric IV antibiotic therapy with Zosyn and vancomycin. Blood culture obtained -will follow results. Left forearm cellulitis + infected ulcers; improving (see pics from September). Right wrist drop secondary to radial nerve palsy. Velcro splint x 4-6 weeks. IVDU. Cocaine and opiates. Patient is currently intoxicated. On methadone?? Addiction medicine consult. Worsening microcytic anemia. Likely secondary to iron deficiency due to infection and poor nutrition. Iron sulfate daily. Continue to monitor. Mood disorder. Continue mood stabilizers Code status: Full DVT prophylaxis: Early ambulation Patient will require at least 2 midnights for right arm cellulitis and multiple infected ulcers treatment with IV antibiotics. Quality Stroke Does the patient have a stroke diagnosis?: No VTE Prior VTE?: No VTE Risk Level:: Medical - low VTE Device Contraindication: Treatment Not Indicated VTE Drug Contraindication: Treatment Not Indicated
[2023-12-05 06:01] LABS: Anion Gap 13 (12-20); Blood Urea Nitrogen 13 mg/dL (9-16); Calcium 8.6 mg/dL (8.4-10.2); Carbon Dioxide 25 mmol/L (22-29); Chloride 106 mmol/L (96-108); Creatinine Clr Calc Pharmacy 158.2; Estimated Glomerular Filt Rate > 60; Glucose Random 93 mg/dL (60-115); Potassium 3.9 mmol/L (3.3-5.1); Sodium 140 mmol/L (135-145)
--- NOTE | 2023-12-05 06:43 | PHA.PROG ---
Admission Date/Time: December 05, 2023 02:53 Indication: skin Weight in k.6 kg Adjusted body weight in Kg: Dyke body weight in Kg: Obesity Dosing Indication % IBW: Serum Creatinine - Last 168 Hours 12/05/23 12/05/23 00:01 05:04 Creatinine 0.73 0.72 Estimated CrCl and GFR - Last 168 Hours 12/05/23 12/05/23 00:01 05:04 Estim Creat Clear Calc 156.0 158.2 Estimated GFR > 60 > 60 Vancomycin Loading Dose: 2000mg x 1 Current Vancomycin Dosing Regimen: 1250mg Q12H Vancomycin Monitoring using AUC goal of 400 - 600 range with trough as surrogate marker: 463mg/L Date and Time for next Vancomycin Level to be drawn: 12/05 @2100 Pharmacist Comments on Vancomycin Plan: Predicted trough of 13.6 mg/L. Will continue to monitor renal function and adjust accordingly Vancomycin dosing will take advantage of [employer] as a clinical decision support tool that uses Bayesian modeling to calculate individual patient's pharmacokinetic parameters and forecast the patient's drug concentration time course with the target goal AUC 24 range of 400 - 600 mg/L/hr.
[2023-12-05] MEDS: 0.9 % Sodium Chloride Flush 3 ML SYRINGE IVFLUSH ×2 (07:32→15:59)
[2023-12-05] MEDS: Piperacillin Sodium/Tazobactam 3.375 GM in 0.9 % Sodium Chloride 50 ML IV ×3 (07:32→20:08)
--- NOTE | 2023-12-05 07:44 | PC.NURSE ---
assumed care of pt at 0700, pt remains drowsy, difficulty keeping eyes open, per pt used a few minutes PHYSICAL THERAPIST ASSISTANT at ED, pt belongings searched by security - pt notified that he is unable to use vape in the hospital. provider contacted for nicotine patches per pt request. pt requesting methadone verification - Wanda.
--- NOTE | 2023-12-05 09:00 | PC.NURSE ---
Methadone Verification: Andi , Kerry, RN 145mg - last dose given 12/03/23 @ 0901, w 1 take home dose for 12/03. verification for faxed to pharmacy.
--- NOTE | 2023-12-05 09:16 | PM.EVENT ---
Event Note Date of Service: 12/05/23 Event Note: The patient was seen this morning in ED Laying comfortable in his bed Continue IV antibiotics Pending addiction team evaluation Restart Methadone watch for withdrawal symptoms Time Spent With Patient Time: Total time managing care of this patient today ____ minutes.
[2023-12-05 10:42] LABS: Amphetamine Screen Urine Not Detected (Not Detect); Barbiturates, Urine Not Detected (Not Detect); Benzodiazepines Screen Urine POSITIVE (Not Detect); Buprenorphine Scr Not Detected (Not Detect); Cannabinoid Screen Urine Not Detected (Not Detect); Cocaine Screen Urine POSITIVE (Not Detect); Fentanyl, urine POSITIVE (Not Detect); Methadone Screen, Urine Positive (Not Detect); Opiate Screen Urine POSITIVE (Not Detect); Oxycodone Screen Urine Not Detected (Not Detect); Phencyclidine Screen Urine Not Detected (Not Detect)
--- NOTE | 2023-12-05 10:51 | PC.NURSE ---
pharmacy contacted for ferrous sulfate liquid - not in ED pyxis..
[2023-12-05] MEDS: vancomycin HCL 1,250 MG in 0.9 % Sodium Chloride 250 ML 166.67 MG IV ×2 (10:58→22:41)
[2023-12-05] MEDS: Ferrous Sulfate 300 MG/5 ML LIQUID PO (11:03)
--- NOTE | 2023-12-05 11:08 | PC.NURSE ---
pt medicated per MAR, remains tired, but is able to maintain conversation and participate in care at this point with out falling asleep. would to left arm flushed w NS, cleaned and wrapped w nonadhesive dressing.
--- NOTE | 2023-12-05 11:17 | MHC.CM.PN ---
Attempted to meet with patient in regards to discharge planning. Patient currently sleeping. No family present. Will attempt to meet again. Continue to monitor for d/c needs.
--- NOTE | 2023-12-05 11:20 | HE.PHANOTE ---
RE METHADONE Patient recieves methadone from [place] [phone], patient last doses with 145 mg with 1 take home bottle on 12/03/23 @0901. take home bottle was for 12/04/23
--- NOTE | 2023-12-05 11:40 | PHA.MEDREC ---
Pharmacy Consult ? Medication Reconciliation Pharmacy has completed the medication reconciliation. Patient confirmed all meds, but could not recall the name of any meds (Had to be provided name to recognize them.)
[2023-12-05] MEDS: Nicotine 14 MG PATCH.TD24 TRANSDERMA (13:08)
[2023-12-05] MEDS: methADONE HCl 20 MG/2 ML ORAL.CONC 145 MG PO (13:09)
--- NOTE | 2023-12-05 15:21 | PM.EVENT ---
Event Note Date of Service: 12/05/23 Event Note: Addiction consult placed Chart reviewed, methadone dose verified and administered. Patient will be seen in AM by Recovery Team (12/06/23) Time Spent With Patient Time: Total time managing care of this patient today ____ minutes.
[2023-12-05] MEDS: Gabapentin 600 MG TABLET PO ×2 (15:59→20:04)
[2023-12-05] MEDS: clonazePAM 1 MG TABLET PO ×2 (15:59→20:04)
[2023-12-05] MEDS: Gabapentin 300 MG CAPSULE PO (20:04)
[2023-12-05] MEDS: Mirtazapine 7.5 MG TABLET PO (20:04)
[2023-12-05] MEDS: cloNIDine HCL 0.1 MG TABLET PO (20:04)
[2023-12-05] MEDS: Baclofen 10 MG TABLET PO (20:04)
[2023-12-05] MEDS: QUEtiapine Fumarate 100 MG TABLET PO (20:04)
[2023-12-06] MEDS: 0.9 % Sodium Chloride Flush 3 ML SYRINGE IVFLUSH ×4 (00:21→20:41)
[2023-12-06] MEDS: Piperacillin Sodium/Tazobactam 3.375 GM in 0.9 % Sodium Chloride 50 ML IV ×4 (00:21→20:53)
[2023-12-06 02:55] VITALS: BP 103/54; PULSE 69; RESP 16; TEMP 36.9; O2SAT 95
[2023-12-06 06:32] LABS: Anion Gap 13 (12-20); Blood Urea Nitrogen 8 mg/dL (9-16); Calcium 9.4 mg/dL (8.4-10.2); Carbon Dioxide 25 mmol/L (22-29); Chloride 109 mmol/L (96-108); Estimated Glomerular Filt Rate > 60; Glucose Random 93 mg/dL (60-115); Potassium 4.2 mmol/L (3.3-5.1); Sodium 143 mmol/L (135-145)
[2023-12-06 06:54] LABS: Hematocrit 28.2 % (42.0-52.0); Hemoglobin 8.2 g/dl (14.0-18.0); Mean Corpuscular HGB Conc 29.1 g/dl (31.0-36.0); Mean Corpuscular Hemoglobin 18.6 pg (27.0-33.0); Mean Platelet Volume 9.9 fL (9.4-12.4); NRBC Pct Auto 0.4 /100WBC (0.0-0.2); Platelet Count 367 X10*3/uL (160-400); Red Blood Count 4.42 X10*6/uL (4.60-5.80); White Blood Count 5.5 X10*3/uL (4.8-10.8)
[2023-12-06 07:01] LABS: Mean Corpuscular Volume 63.8 fL (80.0-98.0)
[2023-12-06 07:19] VITALS: BP 110/65; PULSE 69; RESP 18; TEMP 36.7; O2SAT 95
[2023-12-06 07:56] VITALS: BP 110/65
[2023-12-06] MEDS: Nicotine 14 MG PATCH.TD24 TRANSDERMA (07:56)
[2023-12-06] MEDS: Ferrous Sulfate 300 MG/5 ML LIQUID PO (07:56)
[2023-12-06] MEDS: Gabapentin 600 MG TABLET PO ×3 (07:56→20:41)
[2023-12-06] MEDS: FLUoxetine HCl 20 MG CAPSULE 40 MG PO (07:56)
[2023-12-06] MEDS: cloNIDine HCL 0.1 MG TABLET PO ×2 (07:56→20:38)
[2023-12-06] MEDS: clonazePAM 1 MG TABLET PO ×3 (07:57→20:41)
[2023-12-06] MEDS: methADONE HCl 20 MG/2 ML ORAL.CONC 145 MG PO (08:03)
--- NOTE | 2023-12-06 09:16 | MHC.CM.PN ---
Patient is from home w/ his mother. Functionally independent. States PCP is Orlando Mahmood MD, but unsure if he is still active as he hasn't had a recent visit. No HCP on file. Would like to complete one when he is feeling better. Methadone through [facility]. DP: Home self care via private transport vs SNF for IV abx. CM will continue to follow for dc needs.
[2023-12-06] MEDS: Acetaminophen 325 MG TABLET 975 MG PO ×2 (10:30→16:00)
[2023-12-06] MEDS: Ibuprofen 400 MG TABLET PO ×2 (11:36→17:10)
[2023-12-06] MEDS: vancomycin HCL 1,250 MG in 0.9 % Sodium Chloride 250 ML 166.66 MG IV (11:37)
--- NOTE | 2023-12-06 15:28 | P.PNIM_ITS ---
Subjective Subjective Date of Service: 12/06/23 Interval History: seen and evaluated this morning complaining of pain in his forearm denies any fever or chills no significant withdrawal symptoms Review of Systems Review of Systems: Yes all other systems are reviewed and are negative Physical Exam 2 Vital Signs: Vital Signs: Last Vital Signs Temp 98.1 F 12/06/23 07:19 Pulse 69 12/06/23 07:19 Resp 18 12/06/23 07:19 BP 110/65 12/06/23 07:56 Pulse Ox 95 12/06/23 07:19 O2 Del Method Room Air 12/06/23 07:19 BMI result Body Mass Index 27.9 Const: Other: Constitutional : Awake, interactive, not in distress Neck : Normal inspection, Supple Cardiovascular : RRR, no JVP, no lower extremity edema Respiratory : good bilateral air entry, no crackles, wheezes or rhonchi Gastrointestinal: soft, lax, Normal bowel sounds, Non tender Skin : Warm, Dry, bilateral forearm cellulitis and multiple injection sites with erythema and tenderness but no drainage Neurological : Alert & oriented x3, No focal deficit Objective Data Active Medications Acetaminophen (Acetaminophen 325 Mg Tablet) 975 mg PO QSHIFT [facility] Last Admin: 12/06/23 10:30 Dose: 975 mg Documented By: FELICITY Albuterol Sulfate (Albuterol Sulfate (0.083%) 2.5 Mg/3 Ml Vial.Neb) 2.5 mg INHALE Q4H PRN PRN Reason: Wheezing Baclofen (Baclofen 10 Mg Tablet) 10 mg PO BEDTIME [facility] Last Admin: 12/05/23 20:04 Dose: 10 mg Documented By: GASPER Clonazepam (Clonazepam 1 Mg Tablet) 1 mg PO TID [facility] Last Admin: 12/06/23 14:52 Dose: 1 mg Documented By: FELICITY Clonidine HCl (Clonidine Hcl 0.1 Mg Tablet) 0.1 mg PO BID [facility]; Protocol Last Admin: 12/06/23 07:56 Dose: 0.1 mg Documented By: FELICITY Ferrous Sulfate (Ferrous Sulfate 300 Mg/5 Ml Liquid) 300 mg PO DAILY [facility] Last Admin: 12/06/23 07:56 Dose: 300 mg Documented By: FELICITY Fluoxetine HCl (Fluoxetine Hcl 20 Mg Capsule) 40 mg PO DAILY [facility] Last Admin: 12/06/23 07:56 Dose: 40 mg Documented By: FELICITY Gabapentin (Gabapentin 300 Mg Capsule) 300 mg PO BEDTIME [facility] Last Admin: 12/05/23 20:04 Dose: 300 mg Documented By: GASPER Gabapentin (Gabapentin 600 Mg Tablet) 600 mg PO TID [facility] Last Admin: 12/06/23 14:52 Dose: 600 mg Documented By: FELICITY Piperacillin Sod/Tazobactam (Sod 3.375 gm/ Sodium Chloride) 50 mls @ 100 mls/hr IV Q6H [facility] Last Infusion: 12/06/23 15:27 Dose: Infused Documented By: FELICITY Vancomycin HCl 1,250 mg/ (Sodium Chloride) 250 mls @ 166.667 mls/hr IV Q12H [facility] Last Infusion: 12/06/23 13:12 Dose: Infused Documented By: FELICITY Ibuprofen (Ibuprofen 400 Mg Tablet) 400 mg PO TIDWM [facility] Last Admin: 12/06/23 11:47 Dose: Not Given Documented By: FELICITY Non-Admin Reason: first dose given late Melatonin (Melatonin 3 Mg Tablet) 6 mg PO BEDTIME PRN PRN Reason: Insomnia Methadone HCl (Methadone Hcl 20 Mg/2 Ml Oral.Conc) 145 mg PO DAILY [facility] Last Admin: 12/06/23 08:03 Dose: 145 mg Documented By: FELICITY Mirtazapine (Mirtazapine 7.5 Mg Tablet) 7.5 mg PO BEDTIME [facility] Last Admin: 12/05/23 20:04 Dose: 7.5 mg Documented By: GASPER Nicotine (Nicotine 14 Mg Patch.Td24) 14 mg TRANSDERMA DAILY [facility] Last Admin: 12/06/23 07:56 Dose: 14 mg Documented By: FELICITY Ondansetron HCl (Ondansetron Hcl 4 Mg/2 Ml Vial) 4 mg IVPUSH Q8H PRN PRN Reason: Nausea and Vomiting Pharmacy Consult (Consult Rx Vancomycin Dosing) 1 each MISCELLANE DAILY PRN PRN Reason: Consult order Quetiapine Fumarate (Quetiapine Fumarate 100 Mg Tablet) 100 mg PO BEDTIME PRN PRN Reason: Sleep Last Admin: 12/05/23 20:04 Dose: 100 mg Documented By: GASPER Sodium Chloride (0.9 % Sodium Chloride Flush 3 Ml Syringe) 3 ml IVFLUSH QSHIFT [facility] Last Admin: 12/06/23 07:57 Dose: 3 ml Documented By: FELICITY Labs 12/06/23 05:37 12/06/23 05:37 Labs: Laboratory Results - last 24 hr 12/06/23 05:37 MCV 63.8 L MCH 18.6 L MCHC 29.1 L RDW 18.0 H Plt Count 367 MPV 9.9 Absolute Nucleated RBC 0.020 H Nucleated RBC % (auto) 0.4 H Anion Gap 13 Estim Creat Clear Calc 170.0 Estimated GFR > 60 Random Glucose 93 Calcium 9.4 D Microbiology Microbiology Results: Microbiology 12/05/23 01:01 Blood Culture - Preliminary Blood - Venous No growth after 24 hours. 12/05/23 01:01 Blood Culture - Preliminary Blood - Venous No growth after 24 hours. Assessment and Plan (1) Acute radial nerve palsy of left upper extremity: Status: Acute (2) Cellulitis of arm, right: Status: Acute (3) Cellulitis of arm, left: Status: Acute (4) Cocaine use disorder: Status: Acute Plan Andrey Monk is a 33 years old man admitted with: # Right forearm cellulitis associated with multiple infected ulcers secondary to IV drug use. Continue IV antibiotic therapy with Zosyn and vancomycin. Pending Blood culture follow vanco trough # Left forearm cellulitis + infected ulcers improving (see pics from September). # Right wrist drop secondary to radial nerve palsy. Velcro splint x 4-6 weeks. # IVDU. Cocaine and opiates. restart Methadone Addiction team to try to place him at inpatient facility # microcytic anemia. secondary to iron deficiency due to infection and poor nutrition. Iron sulfate daily. Continue to monitor. # Mood disorder. Continue mood stabilizers Code status: Full DVT prophylaxis: Early ambulation Patient will require overnight for right arm cellulitis and multiple infected ulcers treatment with IV antibiotics pending final cultures Quality Stroke Does the patient have a stroke diagnosis?: No VTE Prior VTE?: No VTE Risk Level:: Medical - low VTE Device Contraindication: Treatment Not Indicated VTE Drug Contraindication: Treatment Not Indicated
[2023-12-06 15:29] VITALS: BP 109/58; PULSE 51; RESP 18; TEMP 36.1; O2SAT 95
--- NOTE | 2023-12-06 16:23 | HO.ADDICTPRO ---
Subjective Subjective Date of Service: 12/06/23 Reason For Visit: left forearm celllulitis Interim History: Patient medically admitted with cellulitis of the right arm and right wrist drop (nerve palsy). Known to this press writer and [facility]. Has been receiving home dose of methadone since admission yesterday. Seen in room 387. Sleeping upon arrival, but woke easily to voice and engaged in discussion. Earlier patient had reported to hospitalist that he would be interested in entering some sort of reatment program. This press writer discussed with patient. He expressed interest in [facility]. Reviewed admission requirements from most [facility] facilities as requiring at least 2 weeks with no substance use. Patient aware of this, but does not wish to enter ATS facility (detox) as entry point to treatment system. He is hopeful that he will have more time medically admitted and then admission to [facility] would be more of a consideration. He appears comfortable, though somewhat unkempt and sweaty. Denies any withdrawal sx. Review of Systems Acute medical concerns: Yes Review of Systems Constitutional: Reports as per HPI Mental Status Exam Mental Status Exam Patient Appearance: Unkempt Level of Consciousness: Awake and Appropriate Patient Behavior: Appropriate and Talkative Mood Description: Calm Affect Description: Calm Ability to Follow Directions: Excellent Speech Pattern: Clear Thought Process: Intact Thought Content: positive for Intact Judgement: Good Diagnostics Vital Signs (24Hr): Vital Signs - 24 hr 12/05/23 19:22 12/05/23 20:04 12/06/23 02:55 Temperature 98.2 F 98.5 F Pulse Rate 76 69 Respiratory Rate 20 16 Blood Pressure 98/53 L 98/53 L 103/54 L Pulse Oximetry 94 95 Oxygen Delivery Method Room Air Room Air 12/06/23 07:19 12/06/23 07:56 12/06/23 15:29 Temperature 98.1 F 96.9 F Pulse Rate 69 51 Respiratory Rate 18 18 Blood Pressure 110/65 110/65 109/58 L Pulse Oximetry 95 95 Oxygen Delivery Method Room Air Room Air BMI result Body Mass Index 27.9 Labs 12/06/23 05:37 12/06/23 05:37 Labs: Laboratory Results - last 48 hr 12/05/23 12/05/23 12/05/23 00:01 01:01 05:04 WBC 9.2 10.6 RBC 4.43 L D 4.19 L Hgb 8.1 L D 7.6 L Hct 27.4 L D 26.2 L MCV 61.9 L 62.5 L MCH 18.3 L 18.1 L MCHC 29.6 L 29.0 L RDW 17.4 H 17.7 H Plt Count 410 H D 383 MPV 9.8 9.6 Immature Gran % (Auto) 0.6 H Neut % (Auto) 68.1 Lymph % (Auto) 20.6 [place] % (Auto) 8.7 Eos % (Auto) 1.7 Baso % (Auto) 0.3 Lymph # (Auto) 2.2 [place] # (Auto) 0.9 Eos # (Auto) 0.2 Baso # (Auto) 0.0 Abs Immat Gran (auto) 0.06 H Absolute Neuts (auto) 7.2 Absolute Nucleated RBC 0.000 0.000 Nucleated RBC % (auto) 0.0 0.0 ESR 31 H Sodium 138 140 Potassium 4.0 3.9 Chloride 103 106 Carbon Dioxide 24 25 Anion Gap 15 13 BUN 15 13 Creatinine 0.73 0.72 Estim Creat Clear Calc 156.0 158.2 Estimated GFR > 60 > 60 Random Glucose 108 93 Lactic Acid 0.8 1.1 Calcium 9.8 D 8.6 D Total Bilirubin 0.2 AST 15 ALT 17 Alkaline Phosphatase 81 Total Creatine Kinase 50 C-Reactive Protein 5.65 H Total Protein 7.9 Albumin 3.8 Urine Opiates Screen Ur Buprenorphine Scrn Ur Oxycodone Screen Urine Methadone Screen Urine Fentanyl Screen Ur Barbiturates Screen Ur Phencyclidine Scrn Ur Amphetamines Screen U Benzodiazepines Scrn Urine Cocaine Screen U Marijuana (THC) Screen 12/05/23 12/06/23 10:22 05:37 WBC 5.5 RBC 4.42 L Hgb 8.2 L Hct 28.2 L MCV 63.8 L MCH 18.6 L MCHC 29.1 L RDW 18.0 H Plt Count 367 MPV 9.9 Immature Gran % (Auto) Neut % (Auto) Lymph % (Auto) [place] % (Auto) Eos % (Auto) Baso % (Auto) Lymph # (Auto) [place] # (Auto) Eos # (Auto) Baso # (Auto) Abs Immat Gran (auto) Absolute Neuts (auto) Absolute Nucleated RBC 0.020 H Nucleated RBC % (auto) 0.4 H ESR Sodium 143 Potassium 4.2 Chloride 109 H Carbon Dioxide 25 Anion Gap 13 BUN 8 L Creatinine 0.67 Estim Creat Clear Calc 170.0 Estimated GFR > 60 Random Glucose 93 Lactic Acid Calcium 9.4 D Total Bilirubin AST ALT Alkaline Phosphatase Total Creatine Kinase C-Reactive Protein Total Protein Albumin Urine Opiates Screen POSITIVE H Ur Buprenorphine Scrn Not Detected Ur Oxycodone Screen Not Detected Urine Methadone Screen Positive H Urine Fentanyl Screen POSITIVE H Ur Barbiturates Screen Not Detected Ur Phencyclidine Scrn Not Detected Ur Amphetamines Screen Not Detected U Benzodiazepines Scrn POSITIVE H Urine Cocaine Screen POSITIVE H U Marijuana (THC) Screen Not Detected Medications Medications Current Medications Acetaminophen (Acetaminophen 325 Mg Tablet) 975 mg PO QSHIFT [facility] Last Admin: 12/06/23 10:30 Dose: 975 mg Albuterol Sulfate (Albuterol Sulfate (0.083%) 2.5 Mg/3 Ml Vial.Neb) 2.5 mg INHALE Q4H PRN PRN Reason: Wheezing Baclofen (Baclofen 10 Mg Tablet) 10 mg PO BEDTIME [facility] Last Admin: 12/05/23 20:04 Dose: 10 mg Clonazepam (Clonazepam 1 Mg Tablet) 1 mg PO TID [facility] Last Admin: 12/06/23 14:52 Dose: 1 mg Clonidine HCl (Clonidine Hcl 0.1 Mg Tablet) 0.1 mg PO BID [facility]; Protocol Last Admin: 12/06/23 07:56 Dose: 0.1 mg Ferrous Sulfate (Ferrous Sulfate 300 Mg/5 Ml Liquid) 300 mg PO DAILY [facility] Last Admin: 12/06/23 07:56 Dose: 300 mg Fluoxetine HCl (Fluoxetine Hcl 20 Mg Capsule) 40 mg PO DAILY [facility] Last Admin: 12/06/23 07:56 Dose: 40 mg Gabapentin (Gabapentin 300 Mg Capsule) 300 mg PO BEDTIME [facility] Last Admin: 12/05/23 20:04 Dose: 300 mg Gabapentin (Gabapentin 600 Mg Tablet) 600 mg PO TID [facility] Last Admin: 12/06/23 14:52 Dose: 600 mg Piperacillin Sod/Tazobactam (Sod 3.375 gm/ Sodium Chloride) 50 mls @ 100 mls/hr IV Q6H [facility] Last Infusion: 12/06/23 15:27 Dose: Infused Vancomycin HCl 1,250 mg/ (Sodium Chloride) 250 mls @ 166.667 mls/hr IV Q12H [facility] Last Infusion: 12/06/23 13:12 Dose: Infused Ibuprofen (Ibuprofen 400 Mg Tablet) 400 mg PO TIDWM [facility] Last Admin: 12/06/23 11:47 Dose: Not Given Melatonin (Melatonin 3 Mg Tablet) 6 mg PO BEDTIME PRN PRN Reason: Insomnia Methadone HCl (Methadone Hcl 20 Mg/2 Ml Oral.Conc) 145 mg PO DAILY [facility] Last Admin: 12/06/23 08:03 Dose: 145 mg Mirtazapine (Mirtazapine 7.5 Mg Tablet) 7.5 mg PO BEDTIME [facility] Last Admin: 12/05/23 20:04 Dose: 7.5 mg Nicotine (Nicotine 14 Mg Patch.Td24) 14 mg TRANSDERMA DAILY [facility] Last Admin: 12/06/23 07:56 Dose: 14 mg Ondansetron HCl (Ondansetron Hcl 4 Mg/2 Ml Vial) 4 mg IVPUSH Q8H PRN PRN Reason: Nausea and Vomiting Pharmacy Consult (Consult Rx Vancomycin Dosing) 1 each MISCELLANE DAILY PRN PRN Reason: Consult order Quetiapine Fumarate (Quetiapine Fumarate 100 Mg Tablet) 100 mg PO BEDTIME PRN PRN Reason: Sleep Last Admin: 12/05/23 20:04 Dose: 100 mg Sodium Chloride (0.9 % Sodium Chloride Flush 3 Ml Syringe) 3 ml IVFLUSH QSHIFT [facility] Last Admin: 12/06/23 07:57 Dose: 3 ml Allergies Allergies Allergy/AdvReac Type Severity Reaction Status Date / Time Pertussis Vaccines Allergy Mild HIVES Verified 12/04/23 23:39 [PERTUSSIS VACCINES] Assessment & Plan Assessment & Plan (1) Opioid use disorder: Status: Acute Code(s): F11.90 - Opioid use, unspecified, uncomplicated Assessment and Plan: 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
[2023-12-06 19:30] VITALS: BP 94/50; PULSE 60; RESP 18; TEMP 36.4; O2SAT 97
[2023-12-06 20:38] VITALS: BP 96/51
[2023-12-06] MEDS: QUEtiapine Fumarate 100 MG TABLET PO (20:38)
[2023-12-06] MEDS: Mirtazapine 7.5 MG TABLET PO (20:41)
[2023-12-06] MEDS: Gabapentin 300 MG CAPSULE PO (20:41)
[2023-12-06] MEDS: Baclofen 10 MG TABLET PO (20:41)
[2023-12-06] MEDS: traMADoL HCL 50 MG TABLET 25 MG PO (21:11)
[2023-12-06 21:58] LABS: Vancomycin Trough 8.1 mcg/mL (10.0-20.0)
[2023-12-06] MEDS: vancomycin HCL 1,000 MG in 0.9 % Sodium Chloride 250 ML 270 MG IV (22:13)
[2023-12-07] MEDS: Piperacillin Sodium/Tazobactam 3.375 GM in 0.9 % Sodium Chloride 50 ML IV ×4 (01:39→20:19)
[2023-12-07 03:55] VITALS: BP 100/58; PULSE 57; RESP 16; TEMP 36; O2SAT 98
[2023-12-07] MEDS: vancomycin HCL 1,000 MG in 0.9 % Sodium Chloride 250 ML 270 MG IV ×2 (06:08→22:25)
[2023-12-07 08:00] VITALS: BP 102/61; PULSE 54; RESP 14; TEMP 36; O2SAT 94
[2023-12-07] MEDS: methADONE HCl 20 MG/2 ML ORAL.CONC 145 MG PO (08:14)
[2023-12-07] MEDS: Acetaminophen 325 MG TABLET 975 MG PO ×2 (08:15→15:25)
[2023-12-07] MEDS: clonazePAM 1 MG TABLET PO ×3 (08:15→20:19)
[2023-12-07] MEDS: Ibuprofen 400 MG TABLET PO ×2 (08:15→11:40)
[2023-12-07] MEDS: Gabapentin 600 MG TABLET PO ×3 (08:15→20:19)
[2023-12-07] MEDS: Ferrous Sulfate 300 MG/5 ML LIQUID PO (08:15)
[2023-12-07] MEDS: Nicotine 14 MG PATCH.TD24 TRANSDERMA (08:15)
[2023-12-07] MEDS: FLUoxetine HCl 20 MG CAPSULE 40 MG PO (08:15)
[2023-12-07] MEDS: cloNIDine HCL 0.1 MG TABLET PO ×2 (08:15→20:20)
[2023-12-07] MEDS: 0.9 % Sodium Chloride Flush 3 ML SYRINGE IVFLUSH ×3 (08:17→20:20)
--- NOTE | 2023-12-07 08:27 | HE.PHANOTE ---
Re: Jeff When inputting into insight, current dose of 1,000mg Q8H was returning subtherapeautic with predicted AUC 395. Next dose 5/8 @ 1500 increased to 1250mg Q8H, with predicted AUC 493, and predicted trough 12.9. Next trough 5/8 at 2100.
[2023-12-07 10:21] LABS: Anion Gap 15 (12-20); Blood Urea Nitrogen 12 mg/dL (9-16); Calcium 9.3 mg/dL (8.4-10.2); Carbon Dioxide 24 mmol/L (22-29); Chloride 108 mmol/L (96-108); Creatinine Clr Calc Pharmacy 147.9; Estimated Glomerular Filt Rate > 60; Glucose Random 194 mg/dL (60-115); Potassium 4.1 mmol/L (3.3-5.1); Sodium 143 mmol/L (135-145)
--- NOTE | 2023-12-07 11:25 | HO.PM.IMPN ---
Subjective Subjective Date of Service: 12/07/23 Interval History: still with right hand nerve palsy Physical Exam Vital Signs: Vital Signs: Last Vital Signs Temp 96.8 F 12/07/23 08:00 Pulse 54 12/07/23 08:00 Resp 14 12/07/23 08:00 BP 102/61 12/07/23 08:00 Pulse Ox 94 12/07/23 08:00 O2 Del Method Room Air 12/07/23 08:00 BMI result Body Mass Index 27.9 Const: Other: Constitutional : Awake, interactive, not in distress Neck : Normal inspection, Supple Cardiovascular : RRR, no JVP, no lower extremity edema Respiratory : good bilateral air entry, no crackles, wheezes or rhonchi Gastrointestinal: soft, lax, Normal bowel sounds, Non tender Skin : Warm, Dry, bilateral forearm cellulitis and multiple injection sites with erythema and tenderness but no drainage Neurological : Alert & oriented x3, No focal deficit Objective Data Active Medications Acetaminophen (Acetaminophen 325 Mg Tablet) 975 mg PO QSHIFT [facility] Last Admin: 12/07/23 08:15 Dose: 975 mg Documented By: NEREIDA Albuterol Sulfate (Albuterol Sulfate (0.083%) 2.5 Mg/3 Ml Vial.Neb) 2.5 mg INHALE Q4H PRN PRN Reason: Wheezing Baclofen (Baclofen 10 Mg Tablet) 10 mg PO BEDTIME [facility] Last Admin: 12/06/23 20:41 Dose: 10 mg Documented By: GASPER Clonazepam (Clonazepam 1 Mg Tablet) 1 mg PO TID [facility] Last Admin: 12/07/23 08:15 Dose: 1 mg Documented By: NEREIDA Clonidine HCl (Clonidine Hcl 0.1 Mg Tablet) 0.1 mg PO BID [facility]; Protocol Last Admin: 12/07/23 08:15 Dose: 0.1 mg Documented By: NEREIDA Ferrous Sulfate (Ferrous Sulfate 300 Mg/5 Ml Liquid) 300 mg PO DAILY [facility] Last Admin: 12/07/23 08:15 Dose: 300 mg Documented By: NEREIDA Fluoxetine HCl (Fluoxetine Hcl 20 Mg Capsule) 40 mg PO DAILY [facility] Last Admin: 12/07/23 08:15 Dose: 40 mg Documented By: NEREIDA Gabapentin (Gabapentin 300 Mg Capsule) 300 mg PO BEDTIME [facility] Last Admin: 12/06/23 20:41 Dose: 300 mg Documented By: GASPER Gabapentin (Gabapentin 600 Mg Tablet) 600 mg PO TID [facility] Last Admin: 12/07/23 08:15 Dose: 600 mg Documented By: NEREIDA Piperacillin Sod/Tazobactam (Sod 3.375 gm/ Sodium Chloride) 50 mls @ 100 mls/hr IV Q6H [facility] Last Infusion: 12/07/23 09:27 Dose: Infused Documented By: NEREIDA Vancomycin HCl 1,250 mg/ (Sodium Chloride) 250 mls @ 166.667 mls/hr IV Q8H [facility] Ibuprofen (Ibuprofen 400 Mg Tablet) 400 mg PO TIDWM [facility] Last Admin: 12/07/23 08:15 Dose: 400 mg Documented By: NEREIDA Melatonin (Melatonin 3 Mg Tablet) 6 mg PO BEDTIME PRN PRN Reason: Insomnia Methadone HCl (Methadone Hcl 20 Mg/2 Ml Oral.Conc) 145 mg PO DAILY [facility] Last Admin: 12/07/23 08:14 Dose: 145 mg Documented By: NEREIDA Mirtazapine (Mirtazapine 7.5 Mg Tablet) 7.5 mg PO BEDTIME [facility] Last Admin: 12/06/23 20:41 Dose: 7.5 mg Documented By: GASPER Nicotine (Nicotine 14 Mg Patch.Td24) 14 mg TRANSDERMA DAILY [facility] Last Admin: 12/07/23 08:15 Dose: 14 mg Documented By: NEREIDA Ondansetron HCl (Ondansetron Hcl 4 Mg/2 Ml Vial) 4 mg IVPUSH Q8H PRN PRN Reason: Nausea and Vomiting Pharmacy Consult (Consult Rx Vancomycin Dosing) 1 each MISCELLANE DAILY PRN PRN Reason: Consult order Quetiapine Fumarate (Quetiapine Fumarate 100 Mg Tablet) 100 mg PO BEDTIME PRN PRN Reason: Sleep Last Admin: 12/06/23 20:38 Dose: 100 mg Documented By: GASPER Sodium Chloride (0.9 % Sodium Chloride Flush 3 Ml Syringe) 3 ml IVFLUSH QSHIFT [facility] Last Admin: 12/07/23 08:17 Dose: 3 ml Documented By: NEREIDA Labs 12/06/23 05:37 12/07/23 09:41 Labs: Laboratory Results - last 24 hr 12/06/23 12/07/23 20:55 09:41 Anion Gap 15 Estim Creat Clear Calc 147.9 Estimated GFR > 60 Random Glucose 194 H Calcium 9.3 Vancomycin Trough 8.1 L Microbiology Microbiology Results: Microbiology 12/05/23 01:01 Blood Culture - Preliminary Blood - Venous No growth after 48 hours. 12/05/23 01:01 Blood Culture - Preliminary Blood - Venous No growth after 48 hours. Assessment and Plan (1) Acute radial nerve palsy of left upper extremity: Status: Acute (2) Cellulitis of arm, right: Status: Acute (3) Cellulitis of arm, left: Status: Acute (4) Cocaine use disorder: Status: Acute Plan 33M PMH ivda, mild intermittent asthma, anxiety, depression, MRSA bacteremia presented with right hand drop and left elbow erythema and pain Right forearm and left forearm cellulitis associated with multiple infected ulcers secondary to IV drug use. Continue IV antibiotic therapy with Zosyn and vancomycin. Improving, cultures negative Wound care Right wrist drop secondary to radial nerve palsy. Velcro splint x 4-6 weeks. ortho eval Opiate dependence with withdrawal Addiction team appreciated, continue methadone Chronic microcytic anemia. secondary to iron deficiency due to infection and poor nutrition. Iron sulfate daily. Code status: Full reason for continued hospitalization: Wound care pending Quality Stroke Does the patient have a stroke diagnosis?: No VTE Prior VTE?: No VTE Risk Level:: Medical - low VTE Device Contraindication: Treatment Not Indicated VTE Drug Contraindication: Treatment Not Indicated
--- NOTE | 2023-12-07 11:44 | PM.PNORT ---
Subjective Subjective Date of Service: 12/07/23 Interval history: HPI narrative: 33-year-old male with a history of diabetes, asthma, anxiety, depression, MRSA bacteremia, cocaine and opiate injection use disorder, arms skin ulcers who presents emergency department for evaluation of cellulitis to the left and right forearms and right hand weakness with wrist drop x2 days. Patient states that 2 days prior he injected into his right wrist, passed out and then when he woke up his right hand and wrist were uncoordinated and weak which is new. He states that he has had fever, chills, cough, chest pain, myalgias and arthralgias. Patient continues to inject heroin and cocaine 10-15 times a day. Physical Exam Vital Signs: Vital Signs: Last Vital Signs Temp 96.8 F 12/07/23 08:00 Pulse 54 12/07/23 08:00 Resp 14 12/07/23 08:00 BP 102/61 12/07/23 08:00 Pulse Ox 94 12/07/23 08:00 O2 Del Method Room Air 12/07/23 08:00 BMI result Body Mass Index 27.9 Procedures Date of Service Date of Service: 12/07/23 Progress Note: A&P Time Spent With Patient Time: Total time managing care of this patient today ____ minutes. Quality Stroke Does the patient have a stroke diagnosis?: No VTE Prior VTE?: No VTE Risk Level:: Medical - low VTE Device Contraindication: Treatment Not Indicated VTE Drug Contraindication: Treatment Not Indicated
--- NOTE | 2023-12-07 11:45 | MHC.RECOVRN ---
Addendum entered by Savanah Morrison 12/07/23 15:45: Met with pt to follow up and provide support. Pt sitting in bed, awake, alert, easily engages in conversation. Pt reports feeling as good as I can be. Discussed CSS level of care, pt reports he is waiting regardless until after his mom comes back from [place] (leaving on the 18) due to having pets at home. Educated pt on smoothest transition being from ATS to CSS, pt verbalizes understanding. Discussed harm reduction, pt informed t/w he utilizes [employer] for safer injecting supplies. Pt denies questions or concerns for t/w. Original Note: Attempted to meet with pt to follow up. Pt sleeping soundly, does not wake to voice. Resources left at bedside, including ATS and CSS information. T/w available as needed.
--- NOTE | 2023-12-07 12:53 | PM.CNOR ---
History of Present Illness HPI Consult date: 12/07/23 Chief complaint: left forearm celllulitis Narrative: 33-year-old male with a history of diabetes, asthma, anxiety, depression, MRSA bacteremia, cocaine and opiate injection use disorder, arms skin ulcers admitted to medicine for treatment of cellulitis to the left and right forearms. He has right hand weakness with wrist drop x2 days. Patient states that 2 days prior he injected into his right wrist, passed out and then when he woke up his right hand and wrist were uncoordinated and weak which is new. He is unsure how long he was down. Orthopedics was consulted for recommendations. Review of Systems Review of Systems: Yes all other systems are reviewed and are negative [facility] Past Medical History Medical History (Updated 12/07/23 @ 12:53 by Keyla Romano PA-C) Arm ulcer MRSA bacteremia Suicidal ideation Depression Diabetes Cocaine use with cocaine-induced disorder Opiate dependence, continuous Major depressive disorder, recurrent severe without psychotic features Depression Anxiety IVDU (intravenous drug user) Diabetes Asthma Family History Family History Father Heart disease Social History Social History Household Members: Family Household Members Other:: Mother and brother Housing: House Do you presently have visiting nurse or other home services: No Alcohol intake: unknown Comment: 1:1 sitter present for SI plan Patient Tobacco Use Status: Current everyday Tobacco user Tobacco use type: Cigarette Cigarette Packs Per Day: 1.5 Cigarettes Per Day: 30.0 Years Smoked: 15 e-Cigarette/Vaping Use: Former Use Second Hand Smoke Exposure: No Substance Use Type: Crack/Cocaine and Heroin Advance Directives Date on File: 01/30/21 service: No Current occupational status: unemployed Sexual orientation: Straight/Heterosexual Meds Allergies Allergy/AdvReac Type Severity Reaction Status Date / Time Pertussis Vaccines Allergy Mild HIVES Verified 12/04/23 23:39 [PERTUSSIS VACCINES] Active Medications: Current Medications Acetaminophen (Acetaminophen 325 Mg Tablet) 975 mg PO [facility] Last Admin: 12/07/23 08:15 Dose: 975 mg Albuterol Sulfate (Albuterol Sulfate (0.083%) 2.5 Mg/3 Ml Vial.Neb) 2.5 mg INHALE Q4H PRN PRN Reason: Wheezing Baclofen (Baclofen 10 Mg Tablet) 10 mg PO BEDTIME [facility] Last Admin: 12/06/23 20:41 Dose: 10 mg Clonazepam (Clonazepam 1 Mg Tablet) 1 mg PO TID [facility] Last Admin: 12/07/23 08:15 Dose: 1 mg Clonidine HCl (Clonidine Hcl 0.1 Mg Tablet) 0.1 mg PO BID [facility]; Protocol Last Admin: 12/07/23 08:15 Dose: 0.1 mg Ferrous Sulfate (Ferrous Sulfate 300 Mg/5 Ml Liquid) 300 mg PO DAILY [facility] Last Admin: 12/07/23 08:15 Dose: 300 mg Fluoxetine HCl (Fluoxetine Hcl 20 Mg Capsule) 40 mg PO DAILY [facility] Last Admin: 12/07/23 08:15 Dose: 40 mg Gabapentin (Gabapentin 300 Mg Capsule) 300 mg PO BEDTIME [facility] Last Admin: 12/06/23 20:41 Dose: 300 mg Gabapentin (Gabapentin 600 Mg Tablet) 600 mg PO TID [facility] Last Admin: 12/07/23 08:15 Dose: 600 mg Piperacillin Sod/Tazobactam (Sod 3.375 gm/ Sodium Chloride) 50 mls @ 100 mls/hr IV Q6H [facility] Last Infusion: 12/07/23 09:27 Dose: Infused Vancomycin HCl 1,250 mg/ (Sodium Chloride) 250 mls @ 166.667 mls/hr IV Q8H [facility] Ibuprofen (Ibuprofen 400 Mg Tablet) 400 mg PO TIDWM [facility] Last Admin: 12/07/23 11:40 Dose: 400 mg Melatonin (Melatonin 3 Mg Tablet) 6 mg PO BEDTIME PRN PRN Reason: Insomnia Methadone HCl (Methadone Hcl 20 Mg/2 Ml Oral.Conc) 145 mg PO DAILY [facility] Last Admin: 12/07/23 08:14 Dose: 145 mg Mirtazapine (Mirtazapine 7.5 Mg Tablet) 7.5 mg PO BEDTIME [facility] Last Admin: 12/06/23 20:41 Dose: 7.5 mg Nicotine (Nicotine 14 Mg Patch.Td24) 14 mg TRANSDERMA DAILY [facility] Last Admin: 12/07/23 08:15 Dose: 14 mg Ondansetron HCl (Ondansetron Hcl 4 Mg/2 Ml Vial) 4 mg IVPUSH Q8H PRN PRN Reason: Nausea and Vomiting Pharmacy Consult (Consult Rx Vancomycin Dosing) 1 each MISCELLANE DAILY PRN PRN Reason: Consult order Quetiapine Fumarate (Quetiapine Fumarate 100 Mg Tablet) 100 mg PO BEDTIME PRN PRN Reason: Sleep Last Admin: 12/06/23 20:38 Dose: 100 mg Sodium Chloride (0.9 % Sodium Chloride Flush 3 Ml Syringe) 3 ml IVFLUSH QSHIFT [facility] Last Admin: 12/07/23 08:17 Dose: 3 ml Home Medications ?Medication ?Instructions ?Recorded ?Confirmed ?Last Taken ?Type baclofen 10 mg tablet 10 mg PO BEDTIME cocaine withdrawal 10/13/23 12/05/23 12/04/23 History fluoxetine 40 mg capsule 40 mg PO DAILY 10/13/23 12/05/23 12/04/23 History gabapentin 600 mg tablet 600 mg PO TID 10/13/23 12/05/23 12/04/23 History methadone 10 mg/mL oral 145 mg PO DAILY 10/13/23 12/05/23 12/04/23 History concentrate (Methadone Intensol) quetiapine 100 mg tablet 100 mg PO BEDTIME PRN Sleep 10/13/23 12/05/23 12/04/23 History clonazepam 1 mg tablet 1 mg PO TID 12/05/23 12/05/23 12/04/23 History gabapentin 300 mg capsule 300 mg PO BEDTIME 12/05/23 12/05/23 12/04/23 History ibuprofen 200 mg tablet 400 mg PO Q6H PRN Pain 12/05/23 12/05/23 12/04/23 History mirtazapine 7.5 mg tablet 7.5 mg PO BEDTIME 12/05/23 12/05/23 12/04/23 History Physical Exam Vital Signs: Vital Signs: Last Vital Signs Temp 96.8 F 12/07/23 08:00 Pulse 54 12/07/23 08:00 Resp 14 12/07/23 08:00 BP 102/61 12/07/23 08:00 Pulse Ox 94 12/07/23 08:00 O2 Del Method Room Air 12/07/23 08:00 BMI result Body Mass Index 27.9 Const: General: cooperative and no acute distress Orientation/consciousness: patient oriented x3 Resp: Effort & Inspection: normal respiratory effort and able to speak in complete sentences Cardio: Peripheral pulses: Peripheral pulses 2+ throughout Neuro: General: patient oriented x3 Extrem: Other: Right wrist has ulcerations throughout the arm which is being treated by the medical team with IV antibiotics. Is able to initiate wrist extension but it is weak. He can initiate thumb abduction. He has difficulty with extension of his index middle ring and small finger. Can make a full fist. He has decreased sensation throughout the digits. And his pulses are intact. Compartments are soft. Results Labs 12/06/23 05:37 12/07/23 09:41 Labs: Abnormal lab results 12/06/23 12/07/23 Range/Units 20:55 09:41 Random Glucose 194 H (60-115) mg/dL Vancomycin Trough 8.1 L (10.0-20.0) mcg/mL H & H 12/05/23 12/05/23 12/06/23 Range/Units 01:01 05:04 05:37 Hgb 8.1 L D 7.6 L 8.2 L (14.0-18.0) g/dl Hct 27.4 L D 26.2 L 28.2 L (42.0-52.0) % All other labs normal. Assessment and Plan (1) Right radial nerve palsy: Status: Acute Plan Case was discussed with Dr. Nash -comfort wrist splint for support -work on ROM -explained resolution can be weeks to months with fingers being last to regain fxn/sensation -f/u out patient as needed. Procedures Date of Service Date of Service: 12/07/23
[2023-12-07] MEDS: vancomycin HCL 1,250 MG in 0.9 % Sodium Chloride 250 ML 166.67 MG IV (15:01)
[2023-12-07 15:51] VITALS: BP 110/61; PULSE 54; RESP 16; TEMP 37; O2SAT 97
--- NOTE | 2023-12-07 17:48 | MHC.RECOVSUP ---
? Reason for consult: Recovery Suport o Current location: 387-1 o Identified substance use concern: NA - Support ? Intervention: o <del>ATS</del> <del>bed</del> <del>search</del> <del>started/completed/in</del> <del>process</del> <del>o</del> <del>MAT</del> <del>started</del> <del>or</del> <del>to</del> <del>be</del> <del>started</del> <del>o</del> <del>Community</del> <del>resources</del> <del>provided</del> <del>o</del> <del>Harm</del> <del>reduction</del> <del>discussion</del> <del>?</del> <del>Plan:</del> <del>o</del> <del>Referral</del> <del>to</del> <del>[facility]</del> <del>o</del> <del>Bed</del> <del>search</del> <del>in</del> <del>progress</del> <del>to</del> <del>o</del> <del>Follow</del> <del>up</del> <del>tomorrow</del> <del>o</del> <del>Patient</del> <del>awaiting</del> <del>crisis</del> <del>evaluation</del> <del>o</del> <del>Patient</del> <del>to</del> <del>follow</del> <del>up</del> <del>with</del> <del>[facility]</del> <del>after</del> <del>discharge</del> ? Additional information: [employer] Setup Worker attempted to interview patient. But Patient did not want to wake up. Resources was left by the bed.
--- NOTE | 2023-12-07 18:23 | PC.NURSE ---
At approximately 1615 pt was in BR. T room notified staff that pt entered BR with something orange/red resembling a syringe/needle. This RN asked pt if he had any syringes or needles on his person and he denied. Security called. This RN notfied pt that security was called. Pt admitted to this RN that he injected 2 bags of heroin into his right arm while in the BR. Pt pulled an uncapped needle out of his negro pocket and placed on the bed. Dr Mason notified. No other paraphernalia was found, security placed pt belonging in 4th floor locker. Pt dozing intermittently but easliy arousable. Bilateral arms wrapped with DSD
[2023-12-07 19:27] VITALS: BP 110/69; PULSE 56; RESP 15; TEMP 36; O2SAT 95
[2023-12-07] MEDS: Mirtazapine 7.5 MG TABLET PO (20:19)
[2023-12-07] MEDS: QUEtiapine Fumarate 100 MG TABLET PO (20:19)
[2023-12-07] MEDS: Gabapentin 300 MG CAPSULE PO (20:19)
[2023-12-07] MEDS: Baclofen 10 MG TABLET PO (20:19)
[2023-12-07 20:20] VITALS: BP 110/69
[2023-12-07] MEDS: traMADoL HCL 50 MG TABLET PO (20:55)
[2023-12-07 21:36] LABS: Vancomycin Random 16.1 mcg/mL (15-20)
[2023-12-08] MEDS: Piperacillin Sodium/Tazobactam 3.375 GM in 0.9 % Sodium Chloride 50 ML IV ×2 (02:04→07:45)
[2023-12-08 04:00] VITALS: BP 100/64; PULSE 50; RESP 16; TEMP 36.2; O2SAT 97
[2023-12-08] MEDS: vancomycin HCL 1,000 MG in 0.9 % Sodium Chloride 250 ML 270 MG IV (06:21)
[2023-12-08 06:35] LABS: Creatinine Clr Calc Pharmacy 162.7; Estimated Glomerular Filt Rate > 60
[2023-12-08 07:42] VITALS: BP 96/50; PULSE 54; RESP 14; TEMP 36.1; O2SAT 98
[2023-12-08] MEDS: 0.9 % Sodium Chloride Flush 3 ML SYRINGE IVFLUSH (07:44)
[2023-12-08] MEDS: Ibuprofen 400 MG TABLET PO (07:45)
[2023-12-08] MEDS: Acetaminophen 325 MG TABLET 975 MG PO (07:45)
--- NOTE | 2023-12-08 09:13 | P.DS_ITS ---
DS: Providers Provider Date of Service: 12/08/23 Date of admission: 12/05/23 02:53 Primary care physician: Orlando Mahmood III, MD Consults: 12/05/23 06:21 Addiction Medicine Routine Consulting Provider: Addiction Covering Reason for consultation: IV drug use: Cocaine and opiates Has provider been notified: No 12/07/23 09:26 Consult to Wound Care Routine Reason for consultation: bilateral UE ivda wounds 12/07/23 11:30 Consult to Orthopedics Routine Consulting Provider: [facility] Reason for consultation: ivda, right wrist drop DS: Diagnosis Discharge Diagnosis (1) Right radial nerve palsy: Status: Acute DS: Summary Hospital Course Hospital Course: from initial hpi: 33 years old man with past medical history significant for IVDU (cocaine and opiate), asthma, anxiety, depression, MRSA bacteremia and arm skin ulcers presents to the ED for left and right for him + right hand weakness with wrist drop for 2 days. He has been injecting 10-15 bags of heroin and cocaine daily. He was recently (September 2023) hospitalized here for cellulitis. The right wrist drop occurred after he injected heroin and cocaine and fell asleep. In the ED, he was found to have stable vital signs. Blood workup showed no leukocytosis. Hemoglobin is 7.6 (it was 10.2 2 months ago). CRP is elevated, 5.65 There are no electrolyte imbalances. Renal function and LFTs are normal. ED tx: Velcro splint to the right wrist. Zosyn 4.5 mg IV, vancomycin 2 g IV. hospital course: Patient was admitted for right forearm and left forearm cellulitis associated with multiple infected ulcer secondary to IV drug use. He was treated with broad-spectrum IV vancomycin Zosyn. Cultures were negative. Cellulitis improved and will be transitioned to 5 more days of doxycycline. He will follow up with wound care as outpatient. For his right wrist drop secondary to radial nerve palsy was seen by Orthopedics who recommended velcro splint for 4-6 weeks. For opiate dependence with withdrawal he was seen by addiction team and was continued on his methadone replacement therapy. For chronic microcytic anemia due to chronic iron deficiency was continued on iron sulfate. Patient is feeling better will be discharged home. Time Attestation Discharge Coordination Time (in mins): 35 Quality: Safe Use of Opioids Does Pt have an Active Cancer Diagnosis on the Problem List?: No Quality: Stroke Does the patient have a stroke diagnosis?: No Physical Exam Vital Signs: Vital Signs: Last Vital Signs Temp 97 F 12/08/23 07:42 Pulse 54 12/08/23 07:42 Resp 14 12/08/23 07:42 BP 96/50 L 12/08/23 07:42 Pulse Ox 98 12/08/23 07:42 O2 Del Method Room Air 12/08/23 07:42 BMI result Body Mass Index 27.9 Const: General: cooperative and no acute distress Orientation/consciousness: patient oriented x3 Resp: Effort & Inspection: normal respiratory effort and able to speak in complete sentences Cardio: Peripheral pulses: Peripheral pulses 2+ throughout Neuro: General: patient oriented x3 Extrem: Other: Right wrist has ulcerations throughout the arm which is being treated by the medical team with IV antibiotics. Is able to initiate wrist extension but it is weak. He can initiate thumb abduction. He has difficulty with extension of his index middle ring and small finger. Can make a full fist. He has decreased sensation throughout the digits. And his pulses are intact. Compartments are soft. DS: Data Data Completed and Pending Completed studies during hospitalization [Text1]: Procedures Insertion of Infusion Device into Superior Vena Cava, Percutaneous Approach (12/06/22) Introduction of Vasopressor into Peripheral Vein, Percutaneous Approach (02/14/23) Ultrasonography of Superior Vena Cava, Guidance (12/06/22) Labs on day of discharge: Laboratory Results - last 24 hr 12/07/23 12/07/23 12/08/23 09:41 21:08 06:11 Hold Purple Top Cancelled Sodium 143 Potassium 4.1 Chloride 108 Carbon Dioxide 24 Anion Gap 15 BUN 12 Creatinine 0.77 0.70 Estim Creat Clear Calc 147.9 162.7 Estimated GFR > 60 > 60 Random Glucose 194 H Calcium 9.3 Random Vancomycin 16.1 Preliminary micro results at discharge 12/05/23 01:01 Blood Culture - Preliminary Blood - Venous No growth after 48 hours. 12/05/23 01:01 Blood Culture - Preliminary Blood - Venous No growth after 48 hours. Discharge Plan Discharge Anticipated Discharge Date/Time: 12/08/23 09:06 Patient Disposition: Home, Self-Care Discharge Diagnosis: cellulitis, right radial nerve palsy Referrals: Orlando Mahmood III, MD [Primary Care Provider] - 1 Week Discharge Medications: New doxycycline hyclate 100 mg capsule 100 mg PO BID Qty: 10 0RF Continued methadone [Methadone Intensol] 10 mg/mL Concentrate 145 mg PO DAILY fluoxetine 40 mg capsule 40 mg PO DAILY quetiapine 100 mg tablet 100 mg PO BEDTIME PRN (Reason: Sleep) baclofen 10 mg tablet 10 mg PO BEDTIME gabapentin 600 mg tablet 600 mg PO TID ibuprofen 200 mg Tablet 400 mg PO Q6H PRN (Reason: Pain) gabapentin 300 mg capsule 300 mg PO BEDTIME mirtazapine 7.5 mg tablet 7.5 mg PO BEDTIME clonazepam 1 mg tablet 1 mg PO TID clonidine HCl 0.1 mg Tablet 0.1 mg PO BID Qty: 0 0RF Protocol: Hold for SBP< HOLD for SBP < : 90 Discharge Orders: Discharge Order (Routine); Ordered 12/08/23 Ordered By: Andrew Mason Diet: Advance to usual diet Activity on Discharge: As tolerated Stand Alone Forms: Patient Portal Discharge page Print Language: Swedish Care Plan Goals: recovery Health Concerns: cellulitis, opiate dependence, radial nerve palsy Plan of Treatment: 5 days doxy, follow up with wound care, methadone clinic, wrist brace for 2 weeks Assessment: see above
[2023-12-08 09:18] VITALS: BP 102/60
[2023-12-08] MEDS: Gabapentin 600 MG TABLET PO (09:18)
[2023-12-08] MEDS: clonazePAM 1 MG TABLET PO (09:18)
[2023-12-08] MEDS: cloNIDine HCL 0.1 MG TABLET PO (09:18)
[2023-12-08] MEDS: Nicotine 14 MG PATCH.TD24 TRANSDERMA (09:18)
[2023-12-08] MEDS: FLUoxetine HCl 20 MG CAPSULE 40 MG PO (09:18)
[2023-12-08] MEDS: methADONE HCl 20 MG/2 ML ORAL.CONC 145 MG PO (09:19)
--- NOTE | 2023-12-08 09:39 | MHC.CM.PN ---
EMR reviewed. Patient is medically cleared for dc home self care. Referral faxed to [facility] wound clinic. Patient aware. Patient has his own ride home at approx 10am. RN aware.
--- NOTE | 2023-12-08 09:49 | HO.WOUND ---
Addendum entered by Josselyn Hatch RN 12/08/23 11:10: 12/08/23 Todays assessment 12/08/23 Todays assessment Original Note: Wound Consult: Initial 33yr old?M admitted to [facility] on 12/04 - See progress notes and H&P for detailed history. Wound consult Follow up Bilateral Arm wounds secondary to IVDU injection site. Patient agreeable to assessment and photo documentation.? Etiology: Ulceration secondary to IVDU injection Wound Bed: Appear full and partial thickness tissue loss - pink viable tissue and areas with yellow slough with areas of adherent scabs Drainage / Odor: Mild odor noted - no drainage observed Edges: ? irregular Corinne wound: ?pink pigmentation with firm induration, No Fluctuance noted no s/s of infection Pain: mild pain reported Goals of Treatment: ? Moist wound healing with Hydrocolloid Recommendations: 1. Left Forearm - Cleanse with NS, pat dry. Cover with Hydrocolloid dressing for moist wound environment. Change every other day - every 3rd day. 2. Right Forearm - Cleanse with NS, pat dry. Lightly pack depth of central wound with cut piece of hydrofiber - Cover with Hydrocolloid dressing for moist wound environment. Change every other day - every 3rd day. Re-consult wound care Nurse for wound deterioration or wound changes
== END 2023-12-08 10:49 | disposition home or self-care (01) | DRG 383 ==
LOC: HO.ED 12-05 01:21 → HO.EDOVER 12-05 03:14 → HO.S3 12-05 13:49
PROVIDERS: Student in an Organized Health Care Education/Training Program; Admitting Provider Internal Medicine; Emergency Provider Emergency Medicine Emergency Medical Services; PCP Internal Medicine; Visit Provider Internal Medicine
DX: L03.113 Cellulitis of right upper limb (principal); D50.9 Iron deficiency anemia, unspecified; E11.9 Type 2 diabetes mellitus without complications; F17.210 Nicotine dependence, cigarettes, uncomplicated; F11.23 Opioid dependence with withdrawal; F32.A Depression, unspecified; G56.31 Lesion of radial nerve, right upper limb; L03.114 Cellulitis of left upper limb; Z71.6 Tobacco abuse counseling; L98.499 Non-pressure chronic ulcer of skin of other sites with unspecified severity; J45.909 Unspecified asthma, uncomplicated; F41.9 Anxiety disorder, unspecified; Z79.899 Other long term (current) drug therapy
CPT/HCPCS: 36415; 80048; 80053; 80202; 80307; 82550; 82565; 83605; 85025; 85027; 85652; 86140; 87040; 99221; 99285; J2543; J3370; J3371

== ENCOUNTER → 2023-12-05 02:53 | Outpatient (BNV) | payer OTHER, SELFPAY | PROVIDERS: Admitting Provider Internal Medicine; Emergency Provider Emergency Medicine Emergency Medical Services; PCP Internal Medicine; Visit Provider Nurse Practitioner Psychiatric/Mental Health | DX: F11.90 Opioid use, unspecified, uncomplicated (principal) | CPT/HCPCS: 99231; 99499 ==

== ENCOUNTER → 2023-12-05 02:53 | Outpatient (BNV) | payer OTHER, SELFPAY | PROVIDERS: Admitting Provider Internal Medicine; Emergency Provider Emergency Medicine Emergency Medical Services; PCP Internal Medicine; Visit Provider Physician Assistant | DX: G56.31 Lesion of radial nerve, right upper limb (principal) | CPT/HCPCS: 99222 ==

== ENCOUNTER → 2023-12-05 02:53 | Outpatient (BNV) | payer OTHER, SELFPAY | PROVIDERS: Admitting Provider Internal Medicine; Emergency Provider Emergency Medicine Emergency Medical Services; PCP Internal Medicine; Visit Provider Internal Medicine | DX: G56.31 Lesion of radial nerve, right upper limb (principal) | CPT/HCPCS: 99223; 99232; 99239; 99499 ==

== ENCOUNTER 2024-01-01 02:11 | Inpatient (IN) | payer OTHER, SELFPAY ==
[2024-01-01] VITALS (9 sets, daily range): BP systolic 86–145; BP diastolic 45–86; PULSE 53–115; RESP 13–20; TEMP 36.1–37.2; O2SAT 96–99; BMI 25.8; BMI 28.3
--- NOTE | ~2024-01-01 | CT_ITS ---
EXAMINATION: CT FOREARM WITH CONTRAST, RIGHT CLINICAL INFORMATION: Extensive wound. Forearm cellulitis. COMPARISON: Radiographs of the right forearm from 01/01/2024. TECHNIQUE: Multidetector CT imaging examination of the right forearm was performed with intravenous administration of 85 mL Omnipaque 350. This CT examination was performed using dose optimization techniques as appropriate, variously including the following: *Automated exposure control *Adjustment of mA and/or kV according to patient size (this includes techniques or standardized protocols for targeted exams where dose is matched to indication/reason for exam; i.e. extremities or head) *Use of iterative reconstruction technique DLP: 205 mGy-cm FINDINGS: Bones have normal alignment at the elbow and wrist. Again noted is the old healed fracture of the distal radial diaphysis. The well-corticated ossicle projecting distal to the ulnar styloid is probably sequela of remote trauma. There is no acute osseous injury. No osseous erosion or periostitis. No elbow joint effusion. There is superficial tissue loss and irregular contour of the soft tissues of the proximal, ulnar aspect of the forearm at the site of the extensive wound. No radiopaque foreign body in this area. There is extensive edema of the subcutaneous tissues of the forearm. Peripheral to the site of the wound, there are multiple areas of hypodensity in the subcutaneous tissues. Given the extent of the soft tissue wound, these abnormalities are suspicious for phlegmonous changes and ill-defined pockets of abscess formation, difficult to individually measure due to the confluence of hypodense areas and extensive surrounding tissue edema. Several of the small hypodense foci of suspected abscess formation in the proximal posterior forearm are seen on coronal reformatted images 13-20 of series 7, and one of the pockets is 0.6 cm. Other irregular hypodense foci at the margin of the wound can be seen on coronal reformatted images 25-35, series 7, where findings include faint peripheral enhancement around an irregular hypodense area in the proximal ulnar aspect of the forearm that measures 2.2 x 1.2 x 2.2 cm (axial images 325-345, series 10). There is diffuse skin thickening of the forearm. The observation of edema and mild amount of fluid along the surface of the deep fascia of the forearm is probably secondary to cellulitis. Fasciitis is considered less likely since there is no overt inflammation involving underlying muscles or suspicious pockets of fluid tracking along the intermuscular tissue planes. No deep soft tissue gas, intramuscular abscess, hematoma or mass. CT/CT forearm RT w IV con IMPRESSION: There is an superficial soft tissue wound of the proximal ulnar aspect of the forearm. The edema and fluid attenuation in the subcutaneous compartment of the forearm is highly suggestive of cellulitis. Also, there are multiple pockets of more intense edema/fluid that exhibit faint peripheral enhancement in the proximal ulnar aspect of the forearm at the margin of the wound and these are suspicious for superficial tissue abscesses. However, there is no deep abscess involving muscles or intermuscular tissue planes, and no evidence of osteomyelitis.
--- NOTE | ~2024-01-01 | XR_ITS ---
EXAMINATION: XR FOREARM, RIGHT CLINICAL INFORMATION: Extensive wound COMPARISON: 12/15/2022 TECHNIQUE: AP and lateral views of the right forearm were obtained. FINDINGS: Articular alignment appears anatomic. No acute fracture is seen. Redemonstrated chronic ulnar styloid fracture. There is soft tissue swelling greatest in the proximal to mid forearm along with soft tissue gas and suspected laceration along the ulnar aspect. XR/XR forearm RT 2V IMPRESSION: Soft tissue swelling/injury and gas along the ulnar aspect of the proximal to mid forearm. No acute osseous findings identified.
[2024-01-01 02:58] LABS: MANUAL DIFF FLAG NO
[2024-01-01 02:59] LABS: Basophils Percent Auto 0.1 % (0-2); Eosinophils Absolute Auto 0.1 X10*3/uL (0.0-0.4); Eosinophils Percent Auto 1.5 % (0-4); Hemoglobin 7.5 g/dl (14.0-18.0); Imm Gran Abs Auto 0.03 X10*3/uL (0.00-0.03); Imm Gran Pct Auto 0.4 % (0.0-0.4); Lymphocytes Absolute Auto 1.2 X10*3/uL (1.2-4.9); Lymphocytes Percent Auto 15.2 % (20-40); Mean Platelet Volume 9.5 fL (9.4-12.4); Monocytes Absolute Auto 0.7 X10*3/uL (0.1-1.2); Neutrophils Percent Auto 73.8 % (45-73); Platelet Count 480 X10*3/uL (160-400); Red Blood Count 4.16 X10*6/uL (4.60-5.80); Red Cell Distribution Width 17.3 % (11.0-16.0); White Blood Count 8.1 X10*3/uL (4.8-10.8)
[2024-01-01 03:00] LABS: Mean Corpuscular Volume 60.1 fL (80.0-98.0)
[2024-01-01 03:09] LABS: Lactic Acid 0.9 mmol/L (0.5-2.0)
[2024-01-01 03:14] LABS: Alanine Aminotransferase 18 U/L (0-40); Albumin Level 3.6 g/dL (3.5-5.0); Alkaline Phosphatase 70 U/L (39-117); Anion Gap 15 (12-20); Aspartate Amino Transferase 18 U/L (5-37); Bilirubin Total 0.2 mg/dL (0.0-1.0); Blood Urea Nitrogen 13 mg/dL (9-16); Calcium 9.6 mg/dL (8.4-10.2); Carbon Dioxide 25 mmol/L (22-29); Chloride 102 mmol/L (96-108); Creatinine Clr Calc Pharmacy 129.7; Estimated Glomerular Filt Rate > 60; Glucose Random 102 mg/dL (60-115); Potassium 3.9 mmol/L (3.3-5.1); Sodium 138 mmol/L (135-145); Total Protein 7.7 g/dL (6.5-8.0)
--- NOTE | 2024-01-01 08:55 | ED.WOUNDLAC ---
HPI - Wound/Laceration General Chief Complaint: Wound/Laceration Stated Complaint: infection in arm Time Seen by Provider: 01/01/24 08:19 Source: patient Mode of arrival: ambulatory Limitations: no limitations History of Present Illness HPI narrative: Patient is a 33-year-old male who presents to the emergency department for evaluation concern for worsening infection to his right forearm. He reports a recent admission 1 month ago for cellulitis to the bilateral arms. He admits to intravenous heroin and cocaine usage but states he is not been injecting into the right forearm since his recent admission. He reports compliance and completing his course of oral antibiotics he was given. He states that he believes things were getting better but have since worsened again, it is unclear over how much time. He reports that he believes there is is xylasine in the heroin that he is receiving Related Data Home Medications ?Medication ?Instructions ?Recorded ?Confirmed baclofen 10 mg tablet 10 mg PO BEDTIME cocaine withdrawal 10/13/23 01/01/24 fluoxetine 40 mg capsule 40 mg PO DAILY 10/13/23 01/01/24 gabapentin 600 mg tablet 600 mg PO TID 10/13/23 01/01/24 methadone 10 mg/mL oral 140 mg PO DAILY 10/13/23 12/05/23 concentrate (Methadone Intensol) quetiapine 100 mg tablet 100 mg PO BEDTIME PRN Sleep 10/13/23 01/01/24 clonazepam 1 mg tablet 1 mg PO TID 12/05/23 01/01/24 gabapentin 300 mg capsule 300 mg PO BEDTIME 12/05/23 01/01/24 ibuprofen 200 mg tablet 400 mg PO Q6H PRN Pain 12/05/23 01/01/24 mirtazapine 7.5 mg tablet 7.5 mg PO BEDTIME 12/05/23 01/01/24 Previous Rx's ?Medication ?Instructions ?Recorded clonidine HCl 0.1 mg tablet 0.1 mg PO BID #0 tabs 10/25/23 Allergies Allergy/AdvReac Type Severity Reaction Status Date / Time Pertussis Vaccines Allergy Mild HIVES Verified 01/01/24 02:18 [PERTUSSIS VACCINES] Review of Systems Review of Systems: Yes all other systems are reviewed and are negative PMFSH Past Medical History Attestation statement: The following information was validated with the patient. Source: old records reviewed Medical History Arm ulcer MRSA bacteremia Suicidal ideation Depression Diabetes Cocaine use with cocaine-induced disorder Opiate dependence, continuous Major depressive disorder, recurrent severe without psychotic features Depression Anxiety IVDU (intravenous drug user) Diabetes Asthma Family History Family History Father Heart disease Social History Social History Household Members: Family Household Members Other:: Mother and brother Housing: House Do you presently have visiting nurse or other home services: No Alcohol intake: unknown Comment: 1:1 sitter present for SI plan Patient Tobacco Use Status: Former Tobacco user Tobacco use type: Cigarette Cigarette Packs Per Day: 1.5 Cigarettes Per Day: 30.0 Years Smoked: 15 Smoked in Last 30 Days: Yes e-Cigarette/Vaping Use: Former Use Second Hand Smoke Exposure: No Use of substances other than those prescribed or required for medical reasons: Yes Substance Use Type: Crack/Cocaine and Heroin Advance Directives: No Advance Directives Information Provided: Yes Advance Directives Date on File: 01/30/21 Do you have a plan to hurt others: No Plan Nutrition Risks: No Nutritional Risk service: No Current occupational status: unemployed Sexual orientation: Straight/Heterosexual Physical Exam Vital Signs: Vital Signs: Last Vital Signs Temp 98.6 F 01/01/24 15:53 Pulse 56 01/01/24 15:53 Resp 13 01/01/24 15:53 BP 94/54 L 01/01/24 15:53 Pulse Ox 99 01/01/24 15:53 O2 Del Method Room Air 01/01/24 15:53 BMI result Body Mass Index 25.8 Appearance: Alert.?Oriented to person, place and time. No acute distress.?Normal affect. Eyes: Pupils equal, round and reactive to light.? ENT: Pharynx normal.?? Neck: Normal inspection.? Neck supple.?? CVS: Heart sounds normal. Normal heart rate and rhythm.? Pulses normal.?? Respiratory: No respiratory distress.? Lung sounds clear to auscultation bilaterally?? Abdomen: Soft and non-tender. Normoactive bowel sounds.? Skin: Skin warm and dry.? Normal skin color.? ??Right forearm with extensive erythema soft tissue swelling and ulceration of the skin with exudate Extremities: No lower extremity edema.? 2+ radial pulse bilaterally Neuro: Moves all extremities spontaneously. Sensation intact bilaterally. Ambulates with normal steady gait. Medications Administered Generic Name Dose Route Start Last Admin Trade Name Delfin PRN Reason Stop Dose Admin Acetaminophen 975 mg 01/01/24 16:00 01/01/24 15:55 Acetaminophen 325 Mg Tablet PO Not Given QSHIFT SUKHDEEP Clonazepam 1 mg 01/01/24 15:00 01/01/24 15:53 Clonazepam 1 Mg Tablet PO 1 mg TID SUKHDEEP Administration Enoxaparin Sodium 40 mg 01/01/24 11:00 01/01/24 12:04 Enoxaparin Sodium 40 Mg/0.4 Ml Syringe SUBCUT 40 mg Q24H SUKHDEEP Administration Gabapentin 600 mg 01/01/24 15:00 01/01/24 15:53 Gabapentin 600 Mg Tablet PO 600 mg TID SUKHDEEP Administration Piperacillin Sod/Tazobactam 50 mls @ 100 mls/hr 01/01/24 15:00 01/01/24 17:12 Sod 3.375 gm/ Sodium Chloride IV Infused Q6H SUKHDEEP Infusion Lactated Ringer's 1,000 mls @ 100 mls/hr 01/01/24 10:30 01/01/24 10:45 Lr IVCONT 100 mls/hr .Q10H SUKHDEEP Administration Ibuprofen 400 mg 01/01/24 16:00 01/01/24 15:53 Ibuprofen 400 Mg Tablet PO 400 mg QSHIFT SUKHDEEP Administration Sodium Chloride 3 ml 01/01/24 16:00 01/01/24 15:55 0.9 % Sodium Chloride Flush 3 Ml Syringe IVFLUSH 3 ml QSDEFT SUKHDEEP Administration Discontinued Medications Generic Name Dose Route Start Last Admin Trade Name Delfin PRN Reason Stop Dose Admin Sodium Chloride 1,000 mls @ 999 mls/hr 01/01/24 08:45 01/01/24 10:35 Ns IV 01/01/24 09:45 Infused .Q1H1M SUKHDEEP Infusion Piperacillin Sod/Tazobactam 100 mls @ 200 mls/hr 01/01/24 08:44 01/01/24 10:09 Sod 4.5 gm/ Sodium Chloride IV 01/01/24 09:13 Infused ONCE ONE Infusion Vancomycin HCl 2,000 mg in 500 mls @ 250 mls/hr 01/01/24 08:58 01/01/24 12:45 Vancomycin/Ns IV 01/01/24 10:57 Infused ONCE ONE Infusion Iohexol 100 ml 01/01/24 09:53 01/01/24 09:54 Iohexol 350 Mg/Ml 100 Ml Infus..Btl IV 01/01/24 09:54 85 ml ONCE ONE Administration Medical Decision Making Medical Decision Making [facility] Narrative: Patient is a 33-year-old male with past medical history of diabetes, asthma, anxiety, depression, MRSA bacteremia, polysubstance use disorder presenting to emergency department for evaluation of progressive right forearm cellulitis as per HPI and physical exam portion of this note. Was admitted to [facility] 12/05/2023 and discharged 12/08/2023 for bilateral forearm cellulitis and he was advised to follow-up with wound care which he unfortunately did not. Worsening infection to the forearm, blood cultures and lactic acid were obtained; no lactic acidosis. Covered with Zosyn and vancomycin. Planning for admission to medicine service will consult General surgery. Differential Diagnosis Differential Diagnoses: The differential diagnosis associated with the presentation includes (Cellulitis, osteomyelitis, bacteremia) Admission/Observation Consideration of admission/observation: Escalation of care including admission/observation considered Consult Healthcare Provider Management of the patient was discussed with: Hospitalist (Admitted to medicine service, accepting hospitalist Dr. Conner) and Co Founder And Ceo (General surgery, Dr. Aburto ; recommends admission to medicine and she will consult for additional orders and management) Lab Data [facility] Lab Attestation statement: I reviewed the patient's lab results. CBC is without leukocytosis, microcytic anemia that appears consistent with baseline, no active bleeding, no indication for transfusion, thrombocytosis with platelet 480,000. No electrolyte derangement. No MARIANGEL. Transaminases within normal range. 01/01/24 02:47 01/01/24 02:47 Labs: Lab Results 01/01/24 01/01/24 Range/Units 02:47 02:48 WBC 8.1 (4.8-10.8) X10*3/uL RBC 4.16 L (4.60-5.80) X10*6/uL Hgb 7.5 L (14.0-18.0) g/dl Hct 25.0 L (42.0-52.0) % MCV 60.1 L (80.0-98.0) fL MCH 18.0 L (27.0-33.0) pg MCHC 30.0 L (31.0-36.0) g/dl RDW 17.3 H (11.0-16.0) % Plt Count 480 H D (160-400) X10*3/uL MPV 9.5 (9.4-12.4) fL Immature Gran % (Auto) 0.4 (0.0-0.4) % Neut % (Auto) 73.8 H (45-73) % Lymph % (Auto) 15.2 L (20-40) % [place] % (Auto) 9.0 (2-11) % Eos % (Auto) 1.5 (0-4) % Baso % (Auto) 0.1 (0-2) % Lymph # (Auto) 1.2 (1.2-4.9) X10*3/uL [place] # (Auto) 0.7 (0.1-1.2) X10*3/uL Eos # (Auto) 0.1 (0.0-0.4) X10*3/uL Baso # (Auto) 0.0 (0.0-0.2) X10*3/uL Abs Immat Gran (auto) 0.03 (0.00-0.03) X10*3/uL Absolute Neuts (auto) 6.0 (2.0-8.3) x10*3/uL Absolute Nucleated RBC 0.000 (0.0-0.012) X10*3/uL Nucleated RBC % (auto) 0.0 (0.0-0.2) /100WBC Sodium 138 (135-145) mmol/L Potassium 3.9 (3.3-5.1) mmol/L Chloride 102 (96-108) mmol/L Carbon Dioxide 25 (22-29) mmol/L Anion Gap 15 (12-20) BUN 13 (9-16) mg/dL Creatinine 0.81 (0.5-1.4) mg/dL Estim Creat Clear Calc 129.7 Estimated GFR > 60 Random Glucose 102 (60-115) mg/dL Lactic Acid 0.9 (0.5-2.0) mmol/L Calcium 9.6 (8.4-10.2) mg/dL Total Bilirubin 0.2 (0.0-1.0) mg/dL AST 18 (5-37) U/L ALT 18 (0-40) U/L Alkaline Phosphatase 70 (39-117) U/L Total Protein 7.7 (6.5-8.0) g/dL Albumin 3.6 (3.5-5.0) g/dL Independent Interpretation I performed an independent interpretation of an: Plain X-Ray (No acute osseous abnormality on XR) Radiology Impression Discussion of test interpretation with radiology: I have reviewed the radiologist's reading. Radiologist Impression: XR/XR forearm RT 2V IMPRESSION: Soft tissue swelling/injury and gas along the ulnar aspect of the proximal to mid forearm. No acute osseous findings identified. CT/CT forearm RT w IV con IMPRESSION: There is an superficial soft tissue wound of the proximal ulnar aspect of the forearm. The edema and fluid attenuation in the subcutaneous compartment of the forearm is highly suggestive of cellulitis. Also, there are multiple pockets of more intense edema/fluid that exhibit faint peripheral enhancement in the proximal ulnar aspect of the forearm at the margin of the wound and these are suspicious for superficial tissue abscesses. However, there is no deep abscess involving muscles or intermuscular tissue planes, and no evidence of osteomyelitis. External Record Review External record reviewed: Inpatient record (As noted above) Prescription Management I considered prescription management with: Antibiotic Discharge Plan Discharge Clinical Impression: Arm ulcer, Opioid use disorder Cellulitis of arm Qualifiers: Laterality: left Qualified Code(s): L03.114 - Cellulitis of left upper limb Patient Disposition: Admitted As Inpatient
--- NOTE | 2024-01-01 09:09 | PC.NURSE ---
Pt alert/oriented,sleepy but awakes easily. Last use yesterday. Recently sober but relapsed d/t friend committing suicide Pt states recent admission for left arm infection and returns today for right arm infection. Admits to IVDA with heroin and cocaine but denies inject into right arm affected site. Security to bedside to search belongings. Skin is pale, warm and dry. Breathing even/unlabored.
[2024-01-01] MEDS: Piperacillin Sodium/Tazobactam 4.5 GM in 0.9 % Sodium Chloride 100 ML IV (09:34)
[2024-01-01] MEDS: 0.9 % Sodium Chloride 1,000 ML 999 ML IV (09:34)
--- NOTE | 2024-01-01 09:39 | PC.NURSE ---
pt returned from CT scan, IVF started, IV abx started per order, pt a&ox3, pt c/0 rt arm pain 05/10, call leung within reach, will continue to monitor
[2024-01-01] MEDS: iohexoL 350 MG/ML 100 ML INFUS..BTL IV (09:54)
--- NOTE | 2024-01-01 10:22 | P.HPHOSP_ITS ---
History of Present Illness Date of Service: 01/01/24 Chief Complaint: Deep skin infection RUE A 33 years old male with PMH of drug abuse, recent cellulitis who presented to the hospital with worsening RUE open wounds with associated pain and drainage. He reports finishing the antibiotics he was prescribed on discharge but continued to inject himself wherever he can. Noticed the wounds are getting larger but could not come to ED for evaluation any earlier. Not septic. started on IV antibiotics and admitted for further work up. Review of Systems 2 Review of Systems: No fever, chills but has weakness No chest pain, palpitation No shortness of breath or coughing No abdominal pain, nausea or vomiting No urinary symptoms RUE wounds with sinuses and drainage PMFSH Medical History Arm ulcer MRSA bacteremia Suicidal ideation Depression Diabetes Cocaine use with cocaine-induced disorder Opiate dependence, continuous Major depressive disorder, recurrent severe without psychotic features Depression Anxiety IVDU (intravenous drug user) Diabetes Asthma Family History Father Heart disease Social History Household Members: Family Household Members Other:: Mother and brother Housing: House Do you presently have visiting nurse or other home services: No Alcohol intake: unknown Comment: 1:1 sitter present for SI plan Patient Tobacco Use Status: Former Tobacco user Tobacco use type: Cigarette Cigarette Packs Per Day: 1.5 Cigarettes Per Day: 30.0 Years Smoked: 15 Smoked in Last 30 Days: Yes e-Cigarette/Vaping Use: Former Use Second Hand Smoke Exposure: No Use of substances other than those prescribed or required for medical reasons: Yes Substance Use Type: Crack/Cocaine and Heroin Advance Directives: No Advance Directives Information Provided: Yes Advance Directives Date on File: 01/30/21 Do you have a plan to hurt others: No Plan Nutrition Risks: No Nutritional Risk service: No Current occupational status: unemployed Sexual orientation: Straight/Heterosexual Meds Allergies Allergy/AdvReac Type Severity Reaction Status Date / Time Pertussis Vaccines Allergy Mild HIVES Verified 01/01/24 02:18 [PERTUSSIS VACCINES] Active Medications: Current Medications Acetaminophen (Acetaminophen 325 Mg Tablet) 975 mg PO QSHIFT [facility] Enoxaparin Sodium (Enoxaparin Sodium 40 Mg/0.4 Ml Syringe) 40 mg SUBCUT Q24H [facility] Vancomycin HCl (Vancomycin/Ns) 2,000 mg in 500 mls @ 250 mls/hr IV ONCE ONE Stop: 01/01/24 10:57 Piperacillin Sod/Tazobactam (Sod 3.375 gm/ Sodium Chloride) 50 mls @ 100 mls/hr IV Q6H [facility] Ibuprofen ([facility] 400 Mg Tablet) [facility] S[facility]ate (Morphine Sulfate 4 Mg/Ml Cartridge) 2 mg IVPUSH Q4H PRN; Protocol PRN Reason: Pain, Severe (Pain Scale 7-10) Ondansetron HCl (Ondansetron Hcl 4 Mg/2 Ml Vial) 4 mg IVPUSH Q8H PRN PRN Reason: Nausea and Vomiting Pharmacy Consult (Consult Rx Vancomycin Dosing) 1 each MISCELLANE DAILY PRN PRN Reason: Consult order Sodium Chloride (0.9 % Sodium Chloride Flush 3 Ml Syringe) 3 ml IVFLUSH [facility] Home Medications ?Medication ?Instructions ?Recorded ?Confirmed ?Last Taken ?Type baclofen 10 mg tablet 10 mg PO BEDTIME cocaine withdrawal 10/13/23 01/01/24 12/31/23 History fluoxetine 40 mg capsule 40 mg PO DAILY 10/13/23 01/01/24 12/31/23 History gabapentin 600 mg tablet 600 mg PO TID 10/13/23 01/01/24 12/31/23 History methadone 10 mg/mL oral 140 mg PO DAILY 10/13/23 12/05/23 01/01/24 History concentrate (Methadone Intensol) quetiapine 100 mg tablet 100 mg PO BEDTIME PRN Sleep 10/13/23 01/01/24 12/04/23 History clonazepam 1 mg tablet 1 mg PO TID 12/05/23 01/01/24 12/31/23 History gabapentin 300 mg capsule 300 mg PO BEDTIME 12/05/23 01/01/24 12/31/23 History ibuprofen 200 mg tablet 400 mg PO Q6H PRN Pain 12/05/23 01/01/24 12/04/23 History mirtazapine 7.5 mg tablet 7.5 mg PO BEDTIME 12/05/23 01/01/24 12/31/23 History Physical Exam 2 Vital Signs and Narrative: Vital Signs: Last Vital Signs Temp 98.1 F 01/01/24 07:44 Pulse 67 01/01/24 09:59 Resp 15 01/01/24 09:59 BP 97/45 L 01/01/24 09:59 Pulse Ox 98 01/01/24 09:59 O2 Del Method Room Air 01/01/24 09:59 BMI result Body Mass Index 25.8 Const: Other: Constitutional : Awake, interactive Neck : Normal inspection, Supple Cardiovascular : RRR, no JVP, no lower extremity edema Respiratory : good bilateral air entry, no crackles, wheezes or rhonchi Gastrointestinal: soft, lax, Normal bowel sounds, Non tender Skin : Warm, Dry, bilateral forearms multiple injection sites with erythema and tenderness. worsened RUE extremity wounds with sinuses , erythema and thick drainage with exposure of deep tissues Neurological : Alert & oriented x3, No focal deficit Results Labs 01/01/24 02:47 01/01/24 02:47 Labs: Laboratory Results - last 24 hr 01/01/24 01/01/24 02:47 02:48 MCV 60.1 L MCH 18.0 L MCHC 30.0 L RDW 17.3 H Plt Count 480 H D MPV 9.5 Immature Gran % (Auto) 0.4 Neut % (Auto) 73.8 H Lymph % (Auto) 15.2 L [place] % (Auto) 9.0 Eos % (Auto) 1.5 Baso % (Auto) 0.1 Lymph # (Auto) 1.2 [place] # (Auto) 0.7 Eos # (Auto) 0.1 Baso # (Auto) 0.0 Abs Immat Gran (auto) 0.03 Absolute Neuts (auto) 6.0 Absolute Nucleated RBC 0.000 Nucleated RBC % (auto) 0.0 Anion Gap 15 Estim Creat Clear Calc 129.7 Estimated GFR > 60 Random Glucose 102 Lactic Acid 0.9 Calcium 9.6 Total Bilirubin 0.2 AST 18 ALT 18 Alkaline Phosphatase 70 Total Protein 7.7 Albumin 3.6 Imaging Radiologist's Impressions: Impressions Forearm X-Ray 01/01/24 02:57 IMPRESSION: Soft tissue swelling/injury and gas along the ulnar aspect of the proximal to mid forearm. No acute osseous findings identified. Assessment and Plan (1) Cocaine use disorder: Status: Acute (2) Polysubstance abuse: Status: Acute (3) Cellulitis of arm: Qualifiers: Laterality: left Qualified Code(s): L03.114 - Cellulitis of left upper limb Status: Acute (4) Abscess of forearm, right: Status: Acute Plan A 33 years old male with PMH of drug abuse, recent cellulitis who presented to the hospital with worsening RUE open wounds with associated pain and drainage. # Right forearm deep tissue infection with multiple infected ulcers secondary to IV drug use. Not septic Pending cultures CT showing possible abscess in rt forearm IV antibiotic therapy with Zosyn and vancomycin. Surgery evaluation follow vanco trough # Left forearm cellulitis + infected ulcers Treat with antibiotics as well # recent Right wrist drop secondary to radial nerve palsy. was on Velcro splint x 4-6 weeks. improved. # IVDU. Cocaine and opiates. restart Methadone home dose Addiction team consult to try to place him at inpatient facility # microcytic anemia. secondary to iron deficiency due to infection and poor nutrition. Iron sulfate daily. Continue to monitor. # Mood disorder. Continue mood stabilizers Code status: Full DVT prophylaxis: Early ambulation Patient will require >2 overnight hospital inpatient stay for right arm cellulitis and deep tissue infection for treatment with IV antibiotics pending final cultures and surgical evaluation Quality Stroke Does the patient have a stroke diagnosis?: No VTE Prior VTE?: No VTE Risk Level:: Medical - moderate - high VTE Device Contraindication: Treatment Not Indicated VTE Drug Contraindication: N/A - Med Ordered
[2024-01-01] MEDS: Lactated Ringers 1,000 ML 100 ML IVCONT ×2 (10:45→20:12)
[2024-01-01] MEDS: vancomycin/NS 2,000 MG/500 ML PLAST..BAG 250 MG IV (10:45)
--- NOTE | 2024-01-01 10:55 | PHA.PROG ---
Admission Date/Time: Indication: ssti Weight in k.379 kg Adjusted body weight in K.1 kg [place] body weight in K.7 kg Obesity Dosing Indication % IBW: Serum Creatinine - Last 168 Hours 01/01/24 02:47 Creatinine 0.81 Estimated CrCl and GFR - Last 168 Hours 01/01/24 02:47 Estim Creat Clear Calc 129.7 Estimated GFR > 60 Vancomycin Loading Dose: 2000 mg Current Vancomycin Dosing Regimen: 1500 mg q12h Vancomycin Monitoring using AUC goal of 400 - 600 range with trough as surrogate marker: predicted auc [id number] Date and Time for next Vancomycin Level to be drawn: random 01/02/24 @0800 Pharmacist Comments on Vancomycin Plan: Vancomycin dosing will take advantage of [employer] as a clinical decision support tool that uses Bayesian modeling to calculate individual patient's pharmacokinetic parameters and forecast the patient's drug concentration time course with the target goal AUC 24 range of 400 - 600 mg/L/hr.
[2024-01-01] MEDS: Enoxaparin Sodium 40 MG/0.4 ML SYRINGE SUBCUT (12:04)
--- NOTE | 2024-01-01 14:02 | PM.CNGS ---
History of Present Illness Consult details Consult date: 01/01/24 Narrative: Patient is a 33-year-old male who is here back in early November with bilateral arm wounds secondary to IV drug abuse injection site. There was no need for any debridements and he was treated with antibiotics and plan was to follow up as an outpatient and wound care however he never did this. He said he was clean for a week and then started using drugs again when 1 of his friends from suicide. He returns with bilateral cellulitis and right arm with open wounds. Imaging does not show any deeper abscesses. He has a history of MRSA in the past. Review of Systems Review of Systems: Yes all other systems are reviewed and are negative PMFSH Past Medical History Medical History Arm ulcer MRSA bacteremia Suicidal ideation Depression Diabetes Cocaine use with cocaine-induced disorder Opiate dependence, continuous Major depressive disorder, recurrent severe without psychotic features Depression Anxiety IVDU (intravenous drug user) Diabetes Asthma Family History Family History Father Heart disease Social History Social History Household Members: Family Household Members Other:: Mother and brother Housing: House Do you presently have visiting nurse or other home services: No Alcohol intake: unknown Comment: 1:1 sitter present for SI plan Patient Tobacco Use Status: Former Tobacco user Tobacco use type: Cigarette Cigarette Packs Per Day: 1.5 Cigarettes Per Day: 30.0 Years Smoked: 15 Smoked in Last 30 Days: Yes e-Cigarette/Vaping Use: Former Use Second Hand Smoke Exposure: No Use of substances other than those prescribed or required for medical reasons: Yes Substance Use Type: Crack/Cocaine and Heroin Advance Directives: No Advance Directives Information Provided: Yes Advance Directives Date on File: 01/30/21 Do you have a plan to hurt others: No Plan Nutrition Risks: No Nutritional Risk service: No Current occupational status: unemployed Sexual orientation: Straight/Heterosexual Meds Allergies Allergy/AdvReac Type Severity Reaction Status Date / Time Pertussis Vaccines Allergy Mild HIVES Verified 01/01/24 02:18 [PERTUSSIS VACCINES] Active Medications: Current Medications Acetaminophen (Acetaminophen 325 Mg Tablet) [facility] Enoxaparin Sodium (Enoxaparin Sodium 40 Mg/0.4 Ml Syringe) 40 mg SUBCUT Q24H [facility] Last Admin: 01/01/24 12:04 Dose: 40 mg Piperacillin Sod/Tazobactam (Sod 3.375 gm/ Sodium Chloride) 50 mls @ 100 mls/hr IV Q6H [facility] Lactated Ringer's (Lr) 1,000 mls @ 100 mls/hr IVCONT .Q10H [facility] Last Admin: 01/01/24 10:45 Dose: 100 mls/hr Vancomycin HCl 1,500 mg/ (Sodium Chloride) 500 mls @ 333.333 mls/hr IV Q12H [facility] Ibuprofen (Ibuprofen 400 Mg Tablet) [facility] Morphine Sulfate (Morphine Sulfate 4 Mg/Ml Cartridge) 2 mg IVPUSH Q4H PRN; Protocol PRN Reason: Pain, Severe (Pain Scale 7-10) Ondansetron HCl (Ondansetron Hcl 4 Mg/2 Ml Vial) 4 mg IVPUSH Q8H PRN PRN Reason: Nausea and Vomiting Pharmacy Consult (Consult Rx Vancomycin Dosing) 1 each MISCELLANE DAILY PRN PRN Reason: Consult order Sodium Chloride (0.9 % Sodium Chloride Flush 3 Ml Syringe) 3 ml IVFLUSH [facility] Home Medications ?Medication ?Instructions ?Recorded ?Confirmed ?Last Taken ?Type baclofen 10 mg tablet 10 mg PO BEDTIME cocaine withdrawal 10/13/23 01/01/24 12/31/23 History fluoxetine 40 mg capsule 40 mg PO DAILY 10/13/23 01/01/24 12/31/23 History gabapentin 600 mg tablet 600 mg PO TID 10/13/23 01/01/24 12/31/23 History methadone 10 mg/mL oral 140 mg PO DAILY 10/13/23 12/05/23 01/01/24 History concentrate (Methadone Intensol) quetiapine 100 mg tablet 100 mg PO BEDTIME PRN Sleep 10/13/23 01/01/24 12/04/23 History clonazepam 1 mg tablet 1 mg PO TID 12/05/23 01/01/24 12/31/23 History gabapentin 300 mg capsule 300 mg PO BEDTIME 12/05/23 01/01/24 12/31/23 History ibuprofen 200 mg tablet 400 mg PO Q6H PRN Pain 12/05/23 01/01/24 12/04/23 History mirtazapine 7.5 mg tablet 7.5 mg PO BEDTIME 12/05/23 01/01/24 12/31/23 History Physical Exam Vital Signs: Vital Signs: Last Vital Signs Temp 98.1 F 01/01/24 07:44 Pulse 67 01/01/24 09:59 Resp 15 01/01/24 09:59 BP 97/45 L 01/01/24 09:59 Pulse Ox 98 01/01/24 09:59 O2 Del Method Room Air 01/01/24 09:59 BMI result Body Mass Index 25.8 Const: General: cooperative Skin: Other: Patient's left arm has some induration mild erythema but no significant open wounds The right arm on the dorsal lower aspect has multiple open raw areas as well as indurated skin tissue. The area is tender to palpation. Obvious cellulitis but no draining purulent spots. Refer to images Results Labs 01/01/24 02:47 01/01/24 02:47 Labs: Abnormal lab results 01/01/24 Range/Units 02:47 RBC 4.16 L (4.60-5.80) X10*6/uL Hgb 7.5 L (14.0-18.0) g/dl Hct 25.0 L (42.0-52.0) % MCV 60.1 L (80.0-98.0) fL MCH 18.0 L (27.0-33.0) pg MCHC 30.0 L (31.0-36.0) g/dl RDW 17.3 H (11.0-16.0) % Plt Count 480 H D (160-400) X10*3/uL Neut % (Auto) 73.8 H (45-73) % Lymph % (Auto) 15.2 L (20-40) % Short CBC 01/01/24 Range/Units 02:47 WBC 8.1 (4.8-10.8) X10*3/uL Hgb 7.5 L (14.0-18.0) g/dl Hct 25.0 L (42.0-52.0) % Plt Count 480 H D (160-400) X10*3/uL BMP 01/01/24 02:47 Sodium 138 Potassium 3.9 Chloride 102 Carbon Dioxide 25 BUN 13 Creatinine 0.81 Calcium 9.6 Liver Function 01/01/24 Range/Units 02:47 Total Bilirubin 0.2 (0.0-1.0) mg/dL AST 18 (5-37) U/L ALT 18 (0-40) U/L Alkaline Phosphatase 70 (39-117) U/L Albumin 3.6 (3.5-5.0) g/dL All other labs normal. Imaging Additional studies: Chart - [facility] ? Diagnostics Subcategory All Activity ??:?? All Time ??:?? All Subcategories Filter Laboratory Imaging Microbiology Pathology Blood Bank Tests Cardiovascular Other Specialty DATE TYPE STATUS REF RANGE/AUTHOR Hx Today 09:[address] Signed Anselmo Carr Today 02:57 Forearm X-Ray Signed Stephen Linn 10/13/23 03:[address] Signed Pancho Foy 02/13/23 20:10 Chest X-Ray Signed David Hui 12/21/22 11:12 Midline Removal Signed Katy Pedro 12/15/22 11:38 Forearm X-Ray Signed Thierry Quinteros 12/13/22 16:19 PICC Line Insertion Signed Karine Corona 12/13/22 14:[address] Signed Ellis Menjivar 12/08/22 12:00 Venous Duplex Signed Maury Guerra 12/06/22 00:26 Chest X-Ray Signed Stephen Linn 06/30/22 18:43 Chest X-Ray Signed David Hui 05/26/22 08:[address] Signed Ten Rodriguez 01/30/21 10:57 Chest X-Ray Signed Maury Guerra 01/30/21 09:[address] Signed Maury Guerra Joshua G Acute 33, M?1990 MRN#? [id number] ADM IN,?Emergency Department??ED Bed 16?-ED16? 5ft 9in 175lb BSA: 1.97m? BMI: 25.8kg/m? Acc#? [id number] Full Code Historical Visits Allergies Pertussis Vaccines (PERTUSSIS VACCINES) HIVES Problems ? ONSET Abscess of forearm, right Right radial nerve palsy Cocaine use disorder Arm ulcer Polysubstance abuse Cellulitis of arm Major depressive disorder, recurrent severe without psychotic features Opioid use disorder Vital Signs Today 15:53 BP 94/54?L Pulse 56? Resp 13? Temp 98.6 F? O2 Sat 99? Delivery Room Air? Home Meds Not Confirmed Prescription Monitoring Program Total 658 MME/Day Unconfirmed MEDICATIONS (INSTRUCTIONS) LAST TAKEN Active baclofen 10 mgPOBEDTIMEcocaine withdrawal 12/31/23 clonazepam 1 mgPOTID 12/31/23 clonidine HCl 0.1 mgPOBID#0 tabs 12/31/23 fluoxetine 40 mgPODAILY 12/31/23 gabapentin 600 mgPOTID 12/31/23 gabapentin 300 mgPOBEDTIME 12/31/23 ibuprofen 400 [id number] Unknown ??methadone [Methadone Intensol] ??140 mgPODAILY 01/01/24 658 MME/Day mirtazapine 7.5 mgPOBEDTIME 12/31/23 quetiapine 100 mgPOBEDTIMEPRNSleep Unknown My Widget No Data to Display Diagnostics Reports Andrey Monk?(c)??33??M??1990 ? Allergy/Adv: Pertussis Vaccines (More??) Close Forearm CT (Signed) Anselmo Carr - 01/01/24 Forearm X-Ray (Signed) Stephen Linn - 01/01/[address] (Signed) Pancho Foy - 10/13/23 Chest X-Ray (Signed) David Hui - 02/13/23 Midline Removal (Signed) Katy Pedro - 12/21/22 Forearm X-Ray (Signed) Thierry Quinteros - 12/15/22 PICC Line Insertion (Signed) Karine Corona - 12/13/[address] (Signed) Ellis Menjivar - 12/13/22 Venous Duplex (Signed) Maury Guerra - 12/08/22 Chest X-Ray (Signed) Stephen Linn - 12/06/22 Chest X-Ray (Signed) David Hui - 06/30/[address] (Signed) Ten Rodriguez - 05/26/22 Chest X-Ray (Signed) Maury Guerra - 01/30/[address] (Signed) Maury Guerra - 07/02/21 Launch?Image [address] [address] [address] Scan Report Signed Patient: Andrey Monk MR#: [id number] : 1990 Acct:[id number] Age/Sex: 33 / M ADM Date: 01/01/24 Loc: HO.ED Attending Dr: Ordering Physician: Bianca Romero CNP Date of Service: 01/01/24 Procedure(s): CT forearm RT w IV con Accession Number(s): [id number] cc: Bianca Romero CNP; Physician,Unknown ~ EXAMINATION: CT FOREARM WITH CONTRAST, RIGHT CLINICAL INFORMATION: Extensive wound. Forearm cellulitis. COMPARISON: Radiographs of the right forearm from 01/01/2024. TECHNIQUE: Multidetector CT imaging examination of the right forearm was performed with intravenous administration of 85 mL Omnipaque 350. This CT examination was performed using dose optimization techniques as appropriate, variously including the following: *Automated exposure control *Adjustment of mA and/or kV according to patient size (this includes techniques or standardized protocols for targeted exams where dose is matched to indication/reason for exam; i.e. extremities or head) *Use of iterative reconstruction technique DLP: 205 mGy-cm FINDINGS: Bones have normal alignment at the elbow and wrist. Again noted is the old healed fracture of the distal radial diaphysis. The well-corticated ossicle projecting distal to the ulnar styloid is probably sequela of remote trauma. There is no acute osseous injury. No osseous erosion or periostitis. No elbow joint effusion. There is superficial tissue loss and irregular contour of the soft tissues of the proximal, ulnar aspect of the forearm at the site of the extensive wound. No radiopaque foreign body in this area. There is extensive edema of the subcutaneous tissues of the forearm. Peripheral to the site of the wound, there are multiple areas of hypodensity in the subcutaneous tissues. Given the extent of the soft tissue wound, these abnormalities are suspicious for phlegmonous changes and ill-defined pockets of abscess formation, difficult to individually measure due to the confluence of hypodense areas and extensive surrounding tissue edema. Several of the small hypodense foci of suspected abscess formation in the proximal posterior forearm are seen on coronal reformatted images 13-20 of series 7, and one of the pockets is 0.6 cm. Other irregular hypodense foci at the margin of the wound can be seen on coronal reformatted images 25-35, series 7, where findings include faint peripheral enhancement around an irregular hypodense area in the proximal ulnar aspect of the forearm that measures 2.2 x 1.2 x 2.2 cm (axial images 325-345, series 10). There is diffuse skin thickening of the forearm. The observation of edema and mild amount of fluid along the surface of the deep fascia of the forearm is probably secondary to cellulitis. Fasciitis is considered less likely since there is no overt inflammation involving underlying muscles or suspicious pockets of fluid tracking along the intermuscular tissue planes. No deep soft tissue gas, intramuscular abscess, hematoma or mass. CT/CT forearm RT w IV con IMPRESSION: There is an superficial soft tissue wound of the proximal ulnar aspect of the forearm. The edema and fluid attenuation in the subcutaneous compartment of the forearm is highly suggestive of cellulitis. Also, there are multiple pockets of more intense edema/fluid that exhibit faint peripheral enhancement in the proximal ulnar aspect of the forearm at the margin of the wound and these are suspicious for superficial tissue abscesses. However, there is no deep abscess involving muscles or intermuscular tissue planes, and no evidence of osteomyelitis. 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 He did have this issue before and did not come in for follow-up. Imaging does not show any undrained deeper abscess areas. This point plan to use Santyl to the areas or if not available just wet to dry for now. Maybe eventually switch to some wound dress the right now he needs IV antibiotics. Eventually patient can be followed in wound care as an outpatient. Procedures Date of Service Date of Service: 01/01/24
--- NOTE | 2024-01-01 14:11 | PHA.MEDREC ---
Pharmacy Consult ? Medication Reconciliation Pharmacy has completed the medication reconciliation. Despite claim history showing a last fill date for fluoxetine on 04/2023, patient states they still take it. Leaving on med rec since patient attests to taking it.
[2024-01-01] MEDS: Ibuprofen 400 MG TABLET PO (15:53)
[2024-01-01] MEDS: Piperacillin Sodium/Tazobactam 3.375 GM in 0.9 % Sodium Chloride 50 ML IV ×2 (15:53→21:25)
[2024-01-01] MEDS: Gabapentin 600 MG TABLET PO ×2 (15:53→21:23)
[2024-01-01] MEDS: clonazePAM 1 MG TABLET PO ×2 (15:53→21:23)
[2024-01-01] MEDS: 0.9 % Sodium Chloride Flush 3 ML SYRINGE IVFLUSH (15:55)
[2024-01-01 19:28] LABS: Glucose, Whole Blood 71 mg/dL (60-115)
--- NOTE | 2024-01-01 19:39 | PC.NURSE ---
assumed care of pt 1915, bp low as documented Nkechi GARCÍA made aware. pt axox4 arousable to name speaking full clear sentences, reports some dizziness, appears diaphoretic. poc 71. pt provided dinner tray. PA to bedside; to bolus the rest of the maintenance fluids of LR and 500mL of another bag of LR. pt only has 1 IV in L. foot d/t being difficult stick. bp improved slightly at 1935 as documented. sinus wang on monitor which is baseline per provider. afebrile. no further orders at this time. call leung within reach.
[2024-01-01] MEDS: Lactated Ringers 500 ML 999 ML IV (20:02)
[2024-01-01] MEDS: Collagenase Clostridium Hist. 30 GM TUBE 1 APPL TOPICAL (20:39)
[2024-01-01] MEDS: Morphine Sulfate 2 MG/ML CARTRIDGE IVPUSH (21:22)
[2024-01-01] MEDS: Mirtazapine 7.5 MG TABLET PO (21:23)
[2024-01-01] MEDS: QUEtiapine Fumarate 100 MG TABLET PO (21:23)
[2024-01-01] MEDS: Baclofen 10 MG TABLET PO (21:23)
[2024-01-01] MEDS: Gabapentin 300 MG CAPSULE PO (21:23)
[2024-01-01] MEDS: Nicotine 21 MG PATCH.TD24 TRANSDERMA (21:40)
[2024-01-01] MEDS: vancomycin HCL 1,500 MG in 0.9 % Sodium Chloride 500 ML 333.33 MG IV (21:59)
[2024-01-02] MEDS: Ibuprofen 400 MG TABLET PO ×3 (00:17→15:00)
[2024-01-02 01:47] VITALS: BP 91/54; PULSE 54; RESP 18; TEMP 36.6; O2SAT 96
[2024-01-02] MEDS: Piperacillin Sodium/Tazobactam 3.375 GM in 0.9 % Sodium Chloride 50 ML IV ×4 (04:22→20:27)
[2024-01-02 07:06] VITALS: BP 90/50; PULSE 50; RESP 16; TEMP 36.5; O2SAT 98
--- NOTE | 2024-01-02 07:51 | PC.NURSE ---
Methadone clinical called[facility] in [place], confirm 140mg Methadone, Paper faxed to pharmacy at this time.
[2024-01-02] MEDS: Morphine Sulfate 4 MG/ML CARTRIDGE 2 MG IVPUSH ×3 (08:01→20:26)
[2024-01-02] MEDS: Gabapentin 600 MG TABLET PO ×3 (08:03→20:29)
[2024-01-02] MEDS: FLUoxetine HCl 20 MG CAPSULE 40 MG PO (08:03)
[2024-01-02] MEDS: clonazePAM 1 MG TABLET PO ×3 (08:03→20:29)
[2024-01-02] MEDS: 0.9 % Sodium Chloride Flush 3 ML SYRINGE IVFLUSH ×3 (08:03→20:26)
[2024-01-02] MEDS: Collagenase Clostridium Hist. 30 GM TUBE 1 APPL TOPICAL (08:04)
--- NOTE | 2024-01-02 08:21 | HE.PHANOTE ---
METHADONE Pt receives from Wanda Pandey, per Kerry in clinic. Pt last received 140 mg on 01/01/24 at 1119.
[2024-01-02 08:30] VITALS: BP 92/52; PULSE 58
[2024-01-02] MEDS: methADONE HCl 20 MG/2 ML ORAL.CONC 140 MG PO (08:52)
--- NOTE | 2024-01-02 09:22 | PC.NURSE ---
Nurse KHOURY asked if she could place a US Guided IV for this patient.
--- NOTE | 2024-01-02 10:11 | MHC.CM.PN ---
Addendum entered by Aimee Hartman RN 01/02/24 16:29: CM MET W/PT WHO NOW REPORTS HE IS INTERESTED IN IPLOC HE IS SEVERELY DEPRESSED AND HAS HAD VAGUE SI, HOSPITALIST AWARE VIA TIGER AND PT WILL BE SEEN BY [facility] PRIOR TO DC, CM ALSO DID ATTEMPT TO CONTACT [facility] [place] WITH NO LUCK CM TRANSFERRED MULTIPLE TIMES AND WAS TOLD TO CONTACT [phone] HOWEVER THERE WAS NO ANSWER AND NO MESSAGING SYSTEM PICKED UP. Addendum entered by Aimee Hartman RN 01/02/24 13:23: HOSPITALIST REPORTS PT WILL LIKELY BE CLEARED FOR DC TOMORROW 01/02, CM TO LET PT KNOW HE WAS PLANNING ON CONTACTING HIS MOTHER. Addendum entered by Aimee Hartman RN 01/02/24 13:00: CM MET W/PT WHO REPORTS HE HAS NOT SEEN HIS PCP IN OVER ONE YEAR AND HIS PSYCHIATRIST [facility] HAS BEEN PRESCRIBING HIS MEDICATION, PT REPORTS HIS MOTHER IS HIS HCP AND DECLINES TO COMPLETE A NEW ONE AT TIME OF INTERVIEW. PT ALSO REPORTS THAT HE DOES NOT WANT SA TX/DETOX BECAUSE HE DOESN'T LIKE THE PEOPLE IN THOSE PROGRAMS EVEN THOUGH HIS MOTHER WANTS HIM TO GET TX PRIOR TO RETURNING HOME. Original Note: EMR REVIEWED, PT ADMITTED W/WORSENING RUE WOUND, DEEP SKIN INFECTION, CM MET W/PT WHO REPORTS HE LIVES W/HIS MOTHER AND IS INDEP AT BASELINE, HOSPITALIST ENTERED ROOM AND CM TO REVISIT.
[2024-01-02] MEDS: vancomycin HCL 1,500 MG in 0.9 % Sodium Chloride 500 ML 333.33 MG IV (10:32)
--- NOTE | 2024-01-02 10:45 | HO.PM.IMPN ---
Subjective Subjective Date of Service: 01/02/24 Interval History: f/u on cellulis of r forearm unchanged, has pain, looks similar to last admission Physical Exam Vital Signs: Vital Signs: Last Vital Signs Temp 97.7 F 01/02/24 07:06 Pulse 58 01/02/24 08:30 Resp 16 01/02/24 07:06 BP 92/52 L 01/02/24 08:30 Pulse Ox 98 01/02/24 07:06 O2 Del Method Room Air 01/02/24 07:06 BMI result Body Mass Index 28.3 General: AO X 3, no acute distress Resp: CTA bilateral CVS: S1,S2,RRR GI: +BS, NT, no distention Skin: Neuro: motor grossly intact Psych: appropriate affect Const: Other: Constitutional : Awake, interactive Neck : Normal inspection, Supple Cardiovascular : RRR, no JVP, no lower extremity edema Respiratory : good bilateral air entry, no crackles, wheezes or rhonchi Gastrointestinal: soft, lax, Normal bowel sounds, Non tender Skin : Warm, Dry, bilateral forearms multiple injection sites with erythema and tenderness. worsened RUE extremity wounds with sinuses , erythema and thick drainage with exposure of deep tissues Neurological : Alert & oriented x3, No focal deficit General: cooperative Objective Data Active Medications Acetaminophen (Acetaminophen 325 Mg Tablet) 975 mg PO QSHIFT [facility] Last Admin: 01/02/24 08:03 Dose: Not Given Documented By: ORTIZ Non-Admin Reason: Patient Refused Baclofen (Baclofen 10 Mg Tablet) 10 mg PO BEDTIME [facility] Last Admin: 01/01/24 21:23 Dose: 10 mg Documented By: GASPER Clonazepam (Clonazepam 1 Mg Tablet) 1 mg PO TID [facility] Last Admin: 01/02/24 08:03 Dose: 1 mg Documented By: ORTIZ Collagenase (Collagenase Clostridium Hist. 30 Gm Tube) 1 appl TOPICAL DAILY [facility]; Protocol Last Admin: 01/02/24 08:04 Dose: 1 appl Documented By: ORTIZ Enoxaparin Sodium (Enoxaparin Sodium 40 Mg/0.4 Ml Syringe) 40 mg SUBCUT Q24H [facility] Last Admin: 01/02/24 10:44 Dose: Not Given Documented By: ORTIZ Non-Admin Reason: Patient Refused Fluoxetine HCl (Fluoxetine Hcl 20 Mg Capsule) 40 mg PO DAILY [facility] Last Admin: 01/02/24 08:03 Dose: 40 mg Documented By: ORTIZ Gabapentin (Gabapentin 600 Mg Tablet) 600 mg PO TID [facility] Last Admin: 01/02/24 08:03 Dose: 600 mg Documented By: ORTIZ Gabapentin (Gabapentin 300 Mg Capsule) 300 mg PO BEDTIME [facility] Last Admin: 01/01/24 21:23 Dose: 300 mg Documented By: GASPER Piperacillin Sod/Tazobactam (Sod 3.375 gm/ Sodium Chloride) 50 mls @ 100 mls/hr IV Q6H [facility] Last Infusion: 01/02/24 08:52 Dose: Infused Documented By: ORTIZ Lactated Ringer's (Lr) 1,000 mls @ 100 mls/hr IVCONT .Q10H [facility] Last Admin: 01/02/24 05:52 Dose: Not Given Documented By: CIRO Non-Admin Reason: IV Running Vancomycin HCl 1,500 mg/ (Sodium Chloride) 500 mls @ 333.333 mls/hr IV Q12H [facility] Last Admin: 01/02/24 10:32 Dose: 333.33 mls/hr Documented By: ORTIZ Ibuprofen (Ibuprofen 400 Mg Tablet) 400 mg PO QSHIFT [facility] Last Admin: 01/02/24 08:03 Dose: 400 mg Documented By: ORTIZ Methadone HCl (Methadone Hcl 20 Mg/2 Ml Oral.Conc) 140 mg PO DAILY [facility] Last Admin: 01/02/24 08:52 Dose: 140 mg Documented By: ORTIZ Mirtazapine (Mirtazapine 7.5 Mg Tablet) 7.5 mg PO BEDTIME [facility] Last Admin: 01/01/24 21:23 Dose: 7.5 mg Documented By: GASPER Morphine Sulfate (Morphine Sulfate 4 Mg/Ml Cartridge) 2 mg IVPUSH Q4H PRN; Protocol PRN Reason: Pain, Severe (Pain Scale 7-10) Last Admin: 01/02/24 08:01 Dose: 2 mg Documented By: ORTIZ Ondansetron HCl (Ondansetron Hcl 4 Mg/2 Ml Vial) 4 mg IVPUSH Q8H PRN PRN Reason: Nausea and Vomiting Pharmacy Consult (Consult Rx Vancomycin Dosing) 1 each MISCELLANE DAILY PRN PRN Reason: Consult order Quetiapine Fumarate (Quetiapine Fumarate 100 Mg Tablet) 100 mg PO BEDTIME PRN PRN Reason: Sleep Last Admin: 01/01/24 21:23 Dose: 100 mg Documented By: GASPER Sodium Chloride (0.9 % Sodium Chloride Flush 3 Ml Syringe) 3 ml IVFLUSH QSHIFT [facility] Last Admin: 01/02/24 08:03 Dose: 3 ml Documented By: ORTIZ Labs 01/01/24 02:47 01/01/24 02:47 Labs: Laboratory Results - last 24 hr 01/01/24 01/02/24 19:22 09:39 POC Glucose 71 Random Vancomycin 10.0 L Microbiology Microbiology Results: Microbiology 01/01/24 02:47 Blood Culture - Preliminary Blood - Venous No growth after 24 hours. 01/01/24 02:48 Blood Culture - Preliminary Blood - Venous No growth after 24 hours. Assessment and Plan (1) Abscess of forearm, right: Status: Acute (2) Right radial nerve palsy: Status: Acute Plan A 33 years old male with PMH of drug abuse, recent cellulitis who presented to the hospital with worsening RUE open wounds with associated pain and drainage. # Right forearm deep tissue infection with multiple infected ulcers secondary to habitual IV xylazine ingestion into the site evaluated by surgery with no evidence of deep abscess; recommendation: Santyl to the areas or if not available just wet to dry and IV Abx IV antibiotic therapy with Zosyn and vancomycin. ID consult # recent Right wrist drop secondary to radial nerve palsy. was on Velcro splint x 4-6 weeks. improved. # IVDU. Cocaine and opiates. restart Methadone home dose Addiction team consult to try to place him at inpatient facility # microcytic anemia. secondary to iron deficiency due to infection and poor nutrition. Iron sulfate daily. Continue to monitor. # Mood disorder. Continue mood stabilizers Code status: Full DVT prophylaxis: Early ambulation need for inpatient: r right arm cellulitis and deep tissue infection for treatment with IV antibiotics pending final cultures and surgical evaluation Quality Stroke Does the patient have a stroke diagnosis?: No VTE Prior VTE?: No VTE Risk Level:: Medical - moderate - high VTE Device Contraindication: Treatment Not Indicated VTE Drug Contraindication: N/A - Med Ordered
[2024-01-02 11:20] LABS: Hematocrit 22.7 % (42.0-52.0); Mean Corpuscular HGB Conc 29.1 g/dl (31.0-36.0); Mean Corpuscular Hemoglobin 17.8 pg (27.0-33.0); Mean Platelet Volume 9.9 fL (9.4-12.4); NRBC Pct Auto 0.9 /100WBC (0.0-0.2); Platelet Count 350 X10*3/uL (160-400); Red Blood Count 3.71 X10*6/uL (4.60-5.80); Red Cell Distribution Width 17.8 % (11.0-16.0); White Blood Count 4.7 X10*3/uL (4.8-10.8)
[2024-01-02 11:24] LABS: Anion Gap 11 (12-20); Blood Urea Nitrogen 9 mg/dL (9-16); Carbon Dioxide 25 mmol/L (22-29); Chloride 111 mmol/L (96-108); Creatinine Clr Calc Pharmacy 154.9; Estimated Glomerular Filt Rate > 60; Glucose Random 178 mg/dL (60-115); Hemoglobin 6.6 g/dl (14.0-18.0); Mean Corpuscular Volume 61.2 fL (80.0-98.0); Potassium 4.1 mmol/L (3.3-5.1); Sodium 143 mmol/L (135-145)
--- NOTE | 2024-01-02 11:59 | P.PNADD_ITS ---
Subjective Subjective Date of Service: 01/02/24 Reason For Visit: worsening RUE wound, Deep skin infection Interim History: Patient medically admitted with abscess secondary to IVDU Known to this advertising copywriter from previous admissions to [facility], most recently one month ago Patient established with [facility] treatment--methadone 140mg daily. Consult requested to possibly assist patient with referral to inpatient addiction treatment. Patient seen in room 353. Resting comfortably upon this writers arrival. Easily woke when to voice. He reports he finally slept last evening. Reports that he is comfortable related to withdrawal, but does report pain with wounds on underside of right forearm. Making self deprecating statements, I did this to myself...what kind of person keeps using with all of these wounds...I guess I must want pain or something, my head is not right . Denies any type of suicidal ideation, appears to be more frustration related to ongoing use and subsequent medical issues. Discussed consult request. Patient states he is not interested in admission to [facility] or [facility] level of care. I am tried of going to treatment, I feel like I need to try something different . This advertising copywriter inquired what he had in mind and he mentioned medical respite. Informed patient that t/w is unfamiliar with this level of care and criteria for admission, but would discuss with CM. Patient agreeable. Review of Systems Constitutional: Reports as per HPI Mental Status Exam Mental Status Exam Patient Appearance: Disheveled Level of Consciousness: Drowsy (but able to wake and talk ) Patient Behavior: Guarded Mood Description: Blunted Affect Description: Blunted Speech Pattern: Clear Diagnostics Vital Signs (24Hr): Vital Signs - 24 hr 01/01/24 15:53 01/01/24 19:20 01/01/24 19:37 Temperature 98.6 F 97.8 F Pulse Rate 56 58 53 Respiratory Rate 13 14 15 Blood Pressure 94/54 L 86/50 L 90/52 L Pulse Oximetry 99 99 98 Oxygen Delivery Method Room Air Room Air Room Air 01/01/24 19:58 01/01/24 20:44 01/01/24 21:05 Temperature 97.0 F Pulse Rate 57 58 58 Respiratory Rate 15 18 Blood Pressure 95/48 L 94/51 L 98/52 L Pulse Oximetry 96 98 Oxygen Delivery Method Room Air Room Air 01/02/24 01:47 01/02/24 07:06 01/02/24 08:30 Temperature 97.8 F 97.7 F Pulse Rate 54 50 58 Respiratory Rate 18 16 Blood Pressure 91/54 L 90/50 L 92/52 L Pulse Oximetry 96 98 Oxygen Delivery Method Room Air Room Air BMI result Body Mass Index 28.3 Labs 01/02/24 10:44 01/02/24 10:44 Labs: Laboratory Results - last 48 hr 01/01/24 01/01/24 01/01/24 02:47 02:48 19:22 WBC 8.1 RBC 4.16 L Hgb 7.5 L Hct 25.0 L MCV 60.1 L MCH 18.0 L MCHC 30.0 L RDW 17.3 H Plt Count 480 H D MPV 9.5 Immature Gran % (Auto) 0.4 Neut % (Auto) 73.8 H Lymph % (Auto) 15.2 L Towner % (Auto) 9.0 Eos % (Auto) 1.5 Baso % (Auto) 0.1 Lymph # (Auto) 1.2 Towner # (Auto) 0.7 Eos # (Auto) 0.1 Baso # (Auto) 0.0 Abs Immat Gran (auto) 0.03 Absolute Neuts (auto) 6.0 Absolute Nucleated RBC 0.000 Nucleated RBC % (auto) 0.0 Hold Purple Top Sodium 138 Potassium 3.9 Chloride 102 Carbon Dioxide 25 Anion Gap 15 BUN 13 Creatinine 0.81 Estim Creat Clear Calc 129.7 Estimated GFR > 60 POC Glucose 71 Random Glucose 102 Lactic Acid 0.9 Calcium 9.6 Total Bilirubin 0.2 AST 18 ALT 18 Alkaline Phosphatase 70 Total Protein 7.7 Albumin 3.6 Random Vancomycin 01/02/24 01/02/24 01/02/24 09:39 10:44 11:05 WBC 4.7 L RBC 3.71 L Hgb 6.6 L* Hct 22.7 L MCV 61.2 L MCH 17.8 L MCHC 29.1 L RDW 17.8 H Plt Count 350 D MPV 9.9 Immature Gran % (Auto) Neut % (Auto) Lymph % (Auto) Towner % (Auto) Eos % (Auto) Baso % (Auto) Lymph # (Auto) Towner # (Auto) Eos # (Auto) Baso # (Auto) Abs Immat Gran (auto) Absolute Neuts (auto) Absolute Nucleated RBC 0.040 H Nucleated RBC % (auto) 0.9 H Hold Purple Top SEE NOTE Sodium 143 Potassium 4.1 Chloride 111 H Carbon Dioxide 25 Anion Gap 11 L BUN 9 Creatinine 0.74 Estim Creat Clear Calc 154.9 Estimated GFR > 60 POC Glucose Random Glucose 178 H Lactic Acid Calcium 9.0 D Total Bilirubin AST ALT Alkaline Phosphatase Total Protein Albumin Random Vancomycin 10.0 L Imaging Radiology Impressions: ITS Impressions Forearm X-Ray 01/01/24 02:57 IMPRESSION: Soft tissue swelling/injury and gas along the ulnar aspect of the proximal to mid forearm. No acute osseous findings identified. Forearm CT 01/01/24 09:52 IMPRESSION: There is an superficial soft tissue wound of the proximal ulnar aspect of the forearm. The edema and fluid attenuation in the subcutaneous compartment of the forearm is highly suggestive of cellulitis. Also, there are multiple pockets of more intense edema/fluid that exhibit faint peripheral enhancement in the proximal ulnar aspect of the forearm at the margin of the wound and these are suspicious for superficial tissue abscesses. However, there is no deep abscess involving muscles or intermuscular tissue planes, and no evidence of osteomyelitis. Medications Medications Current Medications Acetaminophen (Acetaminophen 325 Mg Tablet) 975 mg PO QSHIFT [facility] Last Admin: 01/02/24 08:03 Dose: Not Given Baclofen (Baclofen 10 Mg Tablet) 10 mg PO BEDTIME [facility] Last Admin: 01/01/24 21:23 Dose: 10 mg Clonazepam (Clonazepam 1 Mg Tablet) 1 mg PO TID [facility] Last Admin: 01/02/24 08:03 Dose: 1 mg Collagenase (Collagenase Clostridium Hist. 30 Gm Tube) 1 appl TOPICAL DAILY [facility]; Protocol Last Admin: 01/02/24 08:04 Dose: 1 appl Enoxaparin Sodium (Enoxaparin Sodium 40 Mg/0.4 Ml Syringe) 40 mg SUBCUT Q24H [facility] Last Admin: 01/02/24 10:44 Dose: Not Given Fluoxetine HCl (Fluoxetine Hcl 20 Mg Capsule) 40 mg PO DAILY [facility] Last Admin: 01/02/24 08:03 Dose: 40 mg Gabapentin (Gabapentin 600 Mg Tablet) 600 mg PO TID [facility] Last Admin: 01/02/24 08:03 Dose: 600 mg Gabapentin (Gabapentin 300 Mg Capsule) 300 mg PO BEDTIME [facility] Last Admin: 01/01/24 21:23 Dose: 300 mg Piperacillin Sod/Tazobactam (Sod 3.375 gm/ Sodium Chloride) 50 mls @ 100 mls/hr IV Q6H [facility] Last Infusion: 01/02/24 08:52 Dose: Infused Lactated Ringer's (Lr) 1,000 mls @ 100 mls/hr IVCONT .Q10H [facility] Last Infusion: 01/02/24 11:58 Dose: 100 mls/hr Vancomycin HCl 1,500 mg/ (Sodium Chloride) 500 mls @ 333.333 mls/hr IV Q12H [facility] Last Admin: 01/02/24 10:32 Dose: 333.33 mls/hr Ibuprofen (Ibuprofen 400 Mg Tablet) 400 mg PO QSHIFT [facility] Last Admin: 01/02/24 08:03 Dose: 400 mg Methadone HCl (Methadone Hcl 20 Mg/2 Ml Oral.Conc) 140 mg PO DAILY [facility] Last Admin: 01/02/24 08:52 Dose: 140 mg Mirtazapine (Mirtazapine 7.5 Mg Tablet) 7.5 mg PO BEDTIME [facility] Last Admin: 01/01/24 21:23 Dose: 7.5 mg Morphine Sulfate (Morphine Sulfate 4 Mg/Ml Cartridge) 2 mg IVPUSH Q4H PRN; Protocol PRN Reason: Pain, Severe (Pain Scale 7-10) Last Admin: 01/02/24 08:01 Dose: 2 mg Ondansetron HCl (Ondansetron Hcl 4 Mg/2 Ml Vial) 4 mg IVPUSH Q8H PRN PRN Reason: Nausea and Vomiting Pharmacy Consult (Consult Rx Vancomycin Dosing) 1 each MISCELLANE DAILY PRN PRN Reason: Consult order Quetiapine Fumarate (Quetiapine Fumarate 100 Mg Tablet) 100 mg PO BEDTIME PRN PRN Reason: Sleep Last Admin: 01/01/24 21:23 Dose: 100 mg Sodium Chloride (0.9 % Sodium Chloride Flush 3 Ml Syringe) [facility] Last Admin: 01/02/24 08:03 Dose: 3 ml Allergies Allergies Allergy/AdvReac Type Severity Reaction Status Date / Time Pertussis Vaccines Allergy Mild HIVES Verified 01/01/24 02:18 [PERTUSSIS VACCINES] Assessment & Plan Assessment & Plan (1) Opioid use disorder: Status: Acute Code(s): F11.90 - Opioid use, unspecified, uncomplicated Assessment and Plan: * Patient is not interested in referral to additional addiction treatment at this time * discussed patient's request with CM--she was aware and aqwas planning on discussing further with patient * will follow up prior to discharge to review risk reduction Total time managing care of this patient today ___25_ minutes.
--- NOTE | 2024-01-02 14:20 | W.PM.IDCN ---
History of Present Illness Data of Consult Service Date: 01/02/24 Requesting physician: Kal Ruiz Primary Care Provider: Orlando Mahomod III, MD HPI Reason for consult: IVDA,arm redness He presents with right arm swelling and redness. He had symptoms last month and took po antibiotics. He has no fever or chills. He has xylazine in heroin. Review of Systems Review of Systems: Yes all other systems are reviewed and are negative PMFSH Past Medical History Medical History Arm ulcer MRSA bacteremia Suicidal ideation Depression Diabetes Cocaine use with cocaine-induced disorder Opiate dependence, continuous Major depressive disorder, recurrent severe without psychotic features Depression Anxiety IVDU (intravenous drug user) Diabetes Asthma Family History Family History Father Heart disease Family history: reviewed and not pertinent Social History Social History Household Members: Family Household Members Other:: Mother and brother Housing: House Do you presently have visiting nurse or other home services: No Alcohol intake: unknown Comment: 1:1 sitter present for SI plan Patient Tobacco Use Status: Current everyday Tobacco user Tobacco use type: Cigarette Cigarette Packs Per Day: 1.5 Cigarettes Per Day: 30.0 Years Smoked: 15 e-Cigarette/Vaping Use: Former Use Second Hand Smoke Exposure: No Substance Use Type: Crack/Cocaine, Heroin and IV Drugs Advance Directives Date on File: 01/30/21 service: No Current occupational status: unemployed Sexual orientation: Straight/Heterosexual Meds Allergies Allergy/AdvReac Type Severity Reaction Status Date / Time Pertussis Vaccines Allergy Mild HIVES Verified 01/01/24 02:18 [PERTUSSIS VACCINES] Active Medications: Current Medications Acetaminophen (Acetaminophen 325 Mg Tablet) 975 mg PO QSHIFT [facility] Last Admin: 01/02/24 08:03 Dose: Not Given Baclofen (Baclofen 10 Mg Tablet) 10 mg PO BEDTIME [facility] Last Admin: 01/01/24 21:23 Dose: 10 mg Clonazepam (Clonazepam 1 Mg Tablet) 1 mg PO TID [facility] Last Admin: 01/02/24 08:03 Dose: 1 mg Collagenase (Collagenase Clostridium Hist. 30 Gm Tube) 1 appl TOPICAL DAILY [facility]; Protocol Last Admin: 01/02/24 08:04 Dose: 1 appl Enoxaparin Sodium (Enoxaparin Sodium 40 Mg/0.4 Ml Syringe) 40 mg SUBCUT Q24H [facility] Last Admin: 01/02/24 10:44 Dose: Not Given Fluoxetine HCl (Fluoxetine Hcl 20 Mg Capsule) 40 mg PO DAILY [facility] Last Admin: 01/02/24 08:03 Dose: 40 mg Gabapentin (Gabapentin 600 Mg Tablet) 600 mg PO TID [facility] Last Admin: 01/02/24 08:03 Dose: 600 mg Gabapentin (Gabapentin 300 Mg Capsule) 300 mg PO BEDTIME [facility] Last Admin: 01/01/24 21:23 Dose: 300 mg Piperacillin Sod/Tazobactam (Sod 3.375 gm/ Sodium Chloride) 50 mls @ 100 mls/hr IV Q6H [facility] Last Infusion: 01/02/24 08:52 Dose: Infused Lactated Ringer's (Lr) 1,000 mls @ 100 mls/hr IVCONT .Q10H [facility] Last Infusion: 01/02/24 11:58 Dose: 100 mls/hr Vancomycin HCl 1,500 mg/ (Sodium Chloride) 500 mls @ 333.333 mls/hr IV Q12H [facility] Last Infusion: 01/02/24 12:03 Dose: Infused Ibuprofen (Ibuprofen 400 Mg Tablet) 400 mg PO QSHIFT [facility] Last Admin: 01/02/24 08:03 Dose: 400 mg Methadone HCl (Methadone Hcl 20 Mg/2 Ml Oral.Conc) 140 mg PO DAILY [facility] Last Admin: 01/02/24 08:52 Dose: 140 mg Mirtazapine (Mirtazapine 7.5 Mg Tablet) 7.5 mg PO BEDTIME [facility] Last Admin: 01/01/24 21:23 Dose: 7.5 mg Morphine Sulfate (Morphine Sulfate 4 Mg/Ml Cartridge) 2 mg IVPUSH Q4H PRN; Protocol PRN Reason: Pain, Severe (Pain Scale 7-10) Last Admin: 01/02/24 08:01 Dose: 2 mg Ondansetron HCl (Ondansetron Hcl 4 Mg/2 Ml Vial) 4 mg IVPUSH Q8H PRN PRN Reason: Nausea and Vomiting Pharmacy Consult (Consult Rx Vancomycin Dosing) 1 each MISCELLANE DAILY PRN PRN Reason: Consult order Quetiapine Fumarate (Quetiapine Fumarate 100 Mg Tablet) 100 mg PO BEDTIME PRN PRN Reason: Sleep Last Admin: 01/01/24 21:23 Dose: 100 mg Sodium Chloride (0.9 % Sodium Chloride Flush 3 Ml [facility]ringe) [facility] Admin: 01/02/24 08:03 Dose: 3 ml Home Medications ?Medication ?Instructions ?Recorded ?Confirmed ?Last Taken ?Type baclofen 10 mg tablet 10 mg PO BEDTIME cocaine withdrawal 10/13/23 01/01/24 12/31/23 History fluoxetine 40 mg capsule 40 mg PO DAILY 10/13/23 01/01/24 12/31/23 History gabapentin 600 mg tablet 600 mg PO TID 10/13/23 01/01/24 12/31/23 History methadone 10 mg/mL oral 140 mg PO DAILY 10/13/23 01/02/24 01/01/24 11:20 History concentrate (Methadone Intensol) quetiapine 100 mg tablet 100 mg PO BEDTIME PRN Sleep 10/13/23 01/01/24 12/04/23 History clonazepam 1 mg tablet 1 mg PO TID 12/05/23 01/01/24 12/31/23 History gabapentin 300 mg capsule 300 mg PO BEDTIME 12/05/23 01/01/24 12/31/23 History ibuprofen 200 mg tablet 400 mg PO Q6H PRN Pain 12/05/23 01/01/24 12/04/23 History mirtazapine 7.5 mg tablet 7.5 mg PO BEDTIME 12/05/23 01/01/24 12/31/23 History Physical Exam Vital Signs: Vital Signs: Last Vital Signs Temp 97.7 F 01/02/24 07:06 Pulse 58 01/02/24 08:30 Resp 16 01/02/24 07:06 BP 92/52 L 01/02/24 08:30 Pulse Ox 98 01/02/24 07:06 O2 Del Method Room Air 01/02/24 07:06 BMI result Body Mass Index 28.3 Const: General: cooperative HEENT: Head: Yes normal to inspection Face and sinus: Yes normal facial exam Mouth: Normal oral and palatal mucosa present Teeth and gingiva: dentition normal Eyes: General: appearance normal, both eyes and all related structures Pupils: Equal, round and reactive pupils present Resp: Effort & Inspection: normal respiratory effort Cardio: Rate: regular rate Rhythm: regular rhythm GI: Palpation (GI): Soft to palpation and nontender : General: Yes no CVA tenderness Back/Spine/Pelvis: Back: no CVA tenderness Skin: General skin exam: no rashes or lesions noted Neuro: General: moves all extremities Cranial nerves: Yes Equal, round and reactive pupils present Extrem: Other: volar arm surface resolving cellulitis Psych: Appearance: grossly normal Results Labs 01/02/24 10:44 01/02/24 10:44 Labs: Short CBC 01/02/24 Range/Units 10:44 WBC 4.7 L (4.8-10.8) X10*3/uL Hgb 6.6 L* (14.0-18.0) g/dl Hct 22.7 L (42.0-52.0) % Plt Count 350 D (160-400) X10*3/uL BMP 01/02/24 10:44 Sodium 143 Potassium 4.1 Chloride 111 H Carbon Dioxide 25 BUN 9 Creatinine 0.74 Calcium 9.0 D Microbiology Microbiology Results: Microbiology 01/01/24 02:47 Blood - Venous Blood Culture - Preliminary No growth after 24 hours. 01/01/24 02:48 Blood - Venous Blood Culture - Preliminary No growth after 24 hours. Assessment and Plan (1) Abscess of forearm, right: Status: Acute (2) Polysubstance abuse: Status: Acute (3) Cellulitis of arm: Qualifiers: Laterality: left Qualified Code(s): L03.114 - Cellulitis of left upper limb Status: Acute Plan Resolving cellulitis superinfection arm He has no bactermia He has anemia?origin Check HIV and Hepatitis C again. Would give po Augmentin and Doxycycline for ten days.
[2024-01-02 15:08] VITALS: BP 122/56; PULSE 60; RESP 18; TEMP 36.7; O2SAT 97
--- NOTE | 2024-01-02 15:22 | HO.WOUND ---
Wound Consult: Initial 33yr old?M admitted to [facility] on 01/01/24 - See progress notes and H&P for detailed history. Wound consult placed for Right Arm wounds secondary to IVDU injection site. Patient agreeable to assessment and photo documentation.? Patient with recent admissions and discharges see chart for details. Patient was seen this admission by General Surgery - Dr. Aburto recommends Santyl for enzymatic debridement and out patient wound clinic follow up. Right Forearm Etiology: Ulceration secondary to IVDU injection Wound Bed: Appear full and partial thickness tissue loss - pink viable tissue and areas with yellow slough with areas of adherent scabs Drainage / Odor: Mild odor noted - small amount of yellow serosang drainage noted on dry lincoln pad no dressing in place at the time of my arrival Edges: ? irregular Pia wound: Warm to touch, + radial pulse noted, denies numbness and tingling, +swelling and pink red erythema noted. No Fluctuance noted Pain: significant pain reported Goals of Treatment: ? Enzymatic debridement with Santly Recommendations: 1. Left Forearm - Stable intact scabs may keep open to air. 2. Right Forearm - Cleanse with NS, pat dry.?Apply barrier to the immediate pia wound, apply thick layer of Santyl to entire wound bed, cover with xeroform, secure ABD Pad, and gauze wrap, change Daily. Recommend follow up out patient Wound Clinic at [address] [place] [id number] and to call for an appointment at time of discharge. [phone].? Re-consult wound care Nurse for wound deterioration or wound changes
--- NOTE | 2024-01-02 16:15 | PC.NURSE ---
Pt allegedly told CM that he had SI. Pt denied this all day. Question if he makes these statements for attention vs real SI? This behavior has been displayed in previous admissions when the patient was told he was being discharged.
[2024-01-02 19:08] VITALS: BP 113/56; PULSE 53; RESP 18; TEMP 36.3; O2SAT 98
[2024-01-02] MEDS: Mirtazapine 7.5 MG TABLET PO (20:29)
[2024-01-02] MEDS: Gabapentin 300 MG CAPSULE PO (20:29)
[2024-01-02] MEDS: QUEtiapine Fumarate 100 MG TABLET PO (20:30)
[2024-01-02] MEDS: Baclofen 10 MG TABLET PO (20:30)
[2024-01-02 20:43] LABS: Vancomycin Random 10.3 mcg/mL (15-20)
--- NOTE | 2024-01-02 20:54 | HE.PHANOTE ---
RE vanco Level on 01/01 came back at 10.3mg/L; changed dose to 1000mg Q8H with predicted trough of 12mg/L and AUC of 434mg/L. Next level to be drawn 01/02 @1999
[2024-01-02] MEDS: vancomycin HCL 1,000 MG in 0.9 % Sodium Chloride 250 ML 270 MG IV (21:00)
[2024-01-02] MEDS: Lactated Ringers 1,000 ML 100 ML IVCONT (21:02)
[2024-01-03] VITALS (7 sets, daily range): BP systolic 115–132; BP diastolic 55–63; PULSE 52–68; RESP 14–18; TEMP 36.2–36.6; O2SAT 95–98
--- NOTE | 2024-01-03 | ECG_ITS ---
Test Reason : substance use Blood Pressure : / mmHG Vent. Rate : 058 BPM Atrial Rate : 058 BPM P-R Int : 158 ms QRS Dur : 080 ms QT Int : 418 ms P-R-T Axes : 060 039 036 degrees QTc Int : 410 ms Sinus bradycardia Otherwise normal ECG When compared with ECG of 17-OCT-2023 15:29, No significant change was found Referred By: [facility] Electronically Signed By:KATELYNN DE LOS SANTOS MD
[2024-01-03] MEDS: Piperacillin Sodium/Tazobactam 3.375 GM in 0.9 % Sodium Chloride 50 ML IV ×2 (02:22→08:08)
[2024-01-03] MEDS: Morphine Sulfate 4 MG/ML CARTRIDGE 2 MG IVPUSH ×4 (03:47→19:49)
[2024-01-03 05:11] LABS: HIV AB/AG Nonreactive (Nonreactive); HIV Num 1 0.09 S/CO (0.00-0.99)
[2024-01-03 05:14] LABS: ~HepC Num1 0.27 S/CO (0.00-0.79); ~Hepatitis C Antibody Nonreactive (Nonreactive)
[2024-01-03] MEDS: vancomycin HCL 1,000 MG in 0.9 % Sodium Chloride 250 ML 270 MG IV (05:28)
[2024-01-03] MEDS: Ibuprofen 400 MG TABLET PO ×2 (08:09→16:05)
[2024-01-03] MEDS: Gabapentin 600 MG TABLET PO ×3 (08:09→21:20)
[2024-01-03] MEDS: methADONE HCl 20 MG/2 ML ORAL.CONC 140 MG PO (08:09)
[2024-01-03] MEDS: clonazePAM 1 MG TABLET PO ×3 (08:09→21:20)
[2024-01-03] MEDS: FLUoxetine HCl 20 MG CAPSULE 40 MG PO (08:09)
[2024-01-03] MEDS: 0.9 % Sodium Chloride Flush 3 ML SYRINGE IVFLUSH (08:10)
[2024-01-03] MEDS: Lactated Ringers 1,000 ML 100 ML IVCONT (09:03)
[2024-01-03] MEDS: Nicotine Polacrilex 2 MG GUM BUCCAL ×2 (09:03→19:50)
[2024-01-03] MEDS: Collagenase Clostridium Hist. 30 GM TUBE 1 APPL TOPICAL (09:09)
--- NOTE | 2024-01-03 09:30 | P.PNIM_ITS ---
Subjective Subjective Date of Service: 01/03/24 Interval History: f/u on cellulis of r forearm report SI overnight and now has sitter no change in skin Physical Exam 2 Vital Signs: Vital Signs: Last Vital Signs Temp 98 F 01/03/24 07:49 Pulse 60 01/03/24 07:49 Resp 16 01/03/24 07:49 BP 119/55 L 01/03/24 07:49 Pulse Ox 98 01/03/24 07:49 O2 Del Method Room Air 01/03/24 07:49 BMI result Body Mass Index 28.3 General: AO X 3, no acute distress Resp: CTA bilateral CVS: S1,S2,RRR GI: +BS, NT, no distention Skin: 01/01 unchanged Neuro: motor grossly intact Psych: appropriate affect Const: Other: Constitutional : Awake, interactive Neck : Normal inspection, Supple Cardiovascular : RRR, no JVP, no lower extremity edema Respiratory : good bilateral air entry, no crackles, wheezes or rhonchi Gastrointestinal: soft, lax, Normal bowel sounds, Non tender Skin : Warm, Dry, bilateral forearms multiple injection sites with erythema and tenderness. worsened RUE extremity wounds with sinuses , erythema and thick drainage with exposure of deep tissues Neurological : Alert & oriented x3, No focal deficit General: cooperative Objective Data Active Medications Acetaminophen (Acetaminophen 325 Mg Tablet) 975 mg PO QSHIFT [facility] Last Admin: 01/03/24 08:10 Dose: Not Given Documented By: ARMANDO Non-Admin Reason: Patient Refused Baclofen (Baclofen 10 Mg Tablet) 10 mg PO BEDTIME [facility] Last Admin: 01/02/24 20:30 Dose: 10 mg Documented By: GASPER Clonazepam (Clonazepam 1 Mg Tablet) 1 mg PO TID [facility] Last Admin: 01/03/24 08:09 Dose: 1 mg Documented By: ARMANDO Collagenase (Collagenase Clostridium Hist. 30 Gm Tube) 1 appl TOPICAL DAILY [facility]; Protocol Last Admin: 01/03/24 09:09 Dose: 1 appl Documented By: ARMANDO Enoxaparin Sodium (Enoxaparin Sodium 40 Mg/0.4 Ml Syringe) 40 mg SUBCUT Q24H [facility] Last Admin: 01/02/24 10:44 Dose: Not Given Documented By: ORTIZ Non-Admin Reason: Patient Refused Fluoxetine HCl (Fluoxetine Hcl 20 Mg Capsule) 40 mg PO DAILY [facility] Last Admin: 01/03/24 08:09 Dose: 40 mg Documented By: ARMANDO Gabapentin (Gabapentin 600 Mg Tablet) 600 mg PO TID [facility] Last Admin: 01/03/24 08:09 Dose: 600 mg Documented By: ARMANDO Gabapentin (Gabapentin 300 Mg Capsule) 300 mg PO BEDTIME [facility] Last Admin: 01/02/24 20:29 Dose: 300 mg Documented By: GASPER Piperacillin Sod/Tazobactam (Sod 3.375 gm/ Sodium Chloride) 50 mls @ 100 mls/hr IV Q6H [facility] Last Infusion: 01/03/24 09:09 Dose: Infused Documented By: ARMANDO Lactated Ringer's (Lr) 1,000 mls @ 100 mls/hr IVCONT .Q10H [facility] Last Admin: 01/03/24 09:03 Dose: 100 mls/hr Documented By: ARMANDO Vancomycin HCl 1,000 mg/ (Sodium Chloride) 270 mls @ 270 mls/hr IV Q8H [facility] Last Infusion: 01/03/24 06:28 Dose: Infused Documented By: GASPER Ibuprofen (Ibuprofen 400 Mg Tablet) 400 mg PO QSHIFT [facility] Last Admin: 01/03/24 08:09 Dose: 400 mg Documented By: ARMANDO Methadone HCl (Methadone Hcl 20 Mg/2 Ml Oral.Conc) 140 mg PO DAILY [facility] Last Admin: 01/03/24 08:09 Dose: 140 mg Documented By: ARMANDO Mirtazapine (Mirtazapine 7.5 Mg Tablet) 7.5 mg PO BEDTIME [facility] Last Admin: 01/02/24 20:29 Dose: 7.5 mg Documented By: GASPER Morphine Sulfate (Morphine Sulfate 4 Mg/Ml Cartridge) 2 mg IVPUSH Q4H PRN; Protocol PRN Reason: Pain, Severe (Pain Scale 7-10) Last Admin: 01/03/24 09:03 Dose: 2 mg Documented By: ARMANDO Nicotine Polacrilex (Nicotine Polacrilex 2 Mg Gum) 2 mg BUCCAL Q2H PRN PRN Reason: Craving Last Admin: 01/03/24 09:03 Dose: 2 mg Documented By: ARMANDO Ondansetron HCl (Ondansetron Hcl 4 Mg/2 Ml Vial) 4 mg IVPUSH Q8H PRN PRN Reason: Nausea and Vomiting Pharmacy Consult (Consult Rx Vancomycin Dosing) 1 each MISCELLANE DAILY PRN PRN Reason: Consult order Quetiapine Fumarate (Quetiapine Fumarate 100 Mg Tablet) 100 mg PO BEDTIME PRN PRN Reason: Sleep Last Admin: 01/02/24 20:30 Dose: 100 mg Documented By: GASPER Sodium Chloride (0.9 % Sodium Chloride Flush 3 Ml Syringe) 3 ml IVFLUSH QSHIFT [facility] Last Admin: 01/03/24 08:10 Dose: 3 ml Documented By: ARMANDO Labs 01/02/24 10:44 01/02/24 10:44 Labs: Laboratory Results - last 24 hr 01/02/24 01/02/24 01/02/24 09:39 10:44 11:05 MCV 61.2 L MCH 17.8 L MCHC 29.1 L RDW 17.8 H Plt Count 350 D MPV 9.9 Absolute Nucleated RBC 0.040 H Nucleated RBC % (auto) 0.9 H Hold Purple Top SEE NOTE Anion Gap 11 L Estim Creat Clear Calc 154.9 Estimated GFR > 60 Random Glucose 178 H Calcium 9.0 D Random Vancomycin 10.0 L Hepatitis C Ab (EIA) HIV 1&2 Ab/P24 Ag 4thGn 01/02/24 01/02/24 15:51 20:02 MCV MCH MCHC RDW Plt Count MPV Absolute Nucleated RBC Nucleated RBC % (auto) Hold Purple Top Anion Gap Estim Creat Clear Calc Estimated GFR Random Glucose Calcium Random Vancomycin 10.3 L Hepatitis C Ab (EIA) Nonreactive HIV 1&2 Ab/P24 Ag 4thGn Nonreactive Microbiology Microbiology Results: Microbiology 01/01/24 02:47 Blood Culture - Preliminary Blood - Venous No growth after 48 hours. 01/01/24 02:48 Blood Culture - Preliminary Blood - Venous No growth after 48 hours. Assessment and Plan (1) Abscess of forearm, right: Status: Acute (2) Right radial nerve palsy: Status: Acute Plan A 33 years old male with PMH of drug abuse, recent cellulitis who presented to the hospital with worsening RUE open wounds with associated pain and drainage. # Right forearm deep tissue infection with multiple infected ulcers secondary to habitual IV xylazine ingestion into the site evaluated by surgery with no evidence of deep abscess; recommendation: Santyl to the areas or if not available just wet to dry ID recommend PO Doxy+ Augmentin. Stop Vanco and Zosyn today # recent Right wrist drop secondary to radial nerve palsy. was on Velcro splint x 4-6 weeks. improved. # IVDU. Cocaine and opiates. continue methadone seen by addition med: Not interested in further treatment or options # chronic microcytic anemia. -monitor, transfuse for Hct <22 # Mood disorder. Continue mood stabilizers #depresson/SI--CARE team consult Code status: Full DVT prophylaxis: Early ambulation need for inpatient: r right arm cellulitis and deep tissue infection for treatment with IV antibiotics pending final cultures and surgical evaluation Quality Stroke Does the patient have a stroke diagnosis?: No VTE Prior VTE?: No VTE Risk Level:: Medical - moderate - high VTE Device Contraindication: Treatment Not Indicated VTE Drug Contraindication: N/A - Med Ordered
[2024-01-03 10:01] LABS: Creatinine Clr Calc Pharmacy 143.2; Estimated Glomerular Filt Rate > 60
[2024-01-03 10:12] LABS: Hematocrit 23.6 % (42.0-52.0); Mean Corpuscular HGB Conc 29.2 g/dl (31.0-36.0); Mean Corpuscular Hemoglobin 17.7 pg (27.0-33.0); Mean Platelet Volume 9.9 fL (9.4-12.4); Platelet Count 413 X10*3/uL (160-400); Red Cell Distribution Width 17.8 % (11.0-16.0); White Blood Count 6.5 X10*3/uL (4.8-10.8)
[2024-01-03 10:18] LABS: Mean Corpuscular Volume 60.5 fL (80.0-98.0)
[2024-01-03 10:19] LABS: Amphetamine Screen Urine Not Detected (Not Detect); Barbiturates, Urine Not Detected (Not Detect); Benzodiazepines Screen Urine Not Detected (Not Detect); Buprenorphine Scr Not Detected (Not Detect); Cannabinoid Screen Urine Not Detected (Not Detect); Cocaine Screen Urine POSITIVE (Not Detect); Fentanyl, urine POSITIVE (Not Detect); Methadone Screen, Urine Positive (Not Detect); Opiate Screen Urine POSITIVE (Not Detect); Oxycodone Screen Urine Not Detected (Not Detect); Phencyclidine Screen Urine Not Detected (Not Detect)
[2024-01-03 10:33] LABS: Hemoglobin 6.9 g/dl (14.0-18.0)
--- NOTE | 2024-01-03 11:04 | MHC.RECOVRN ---
Met with pt to check in and provide support. Pt laying in bed, asleep, wakes to voice. Pt reports not sleeping well last night. Reports SI and states I need more time, I can't go back out there right now. Discussed pts substance use and harm reduction strategies. Pt reports desire to abstain from substances, however, plans to switch from IV to INH if he does return to use. Pt familiar with [employer] and harm reduction techniques. Pt denies questions or concerns at this time.
[2024-01-03] MEDS: Doxycycline Monohydrate 100 MG CAPSULE PO ×2 (11:24→21:20)
[2024-01-03] MEDS: Amoxicillin/Potassium Clav 875 MG TABLET PO ×2 (11:24→21:20)
--- NOTE | 2024-01-03 13:49 | PM.GICN ---
History of Present Illness Data of Consult Service Date: 01/03/24 Requesting physician: [facility] Primary Care Provider: Orlando Mahmood III, MD HPI Reason for consult: anemia 33 yr old m who I am seeing for assessment of anemia patient initially admitted with b/l arm abscesses and ulcers on background of IVDA. He was noted to have acute on chronic microcytic anemia. On questioning he admits to months of on and off rectal bleeding with darkish blood mixed with stool. He also has hard stools and strains. He has noted intermittent bouts of 7/10 crampy periumbilical pain, without any triggers or releiving factors and no radiation. He does use ibuprofen but on and off and only recently. He denies nausea, emesis, gerd, and no nose bleeds, gum bleeding, hematuria. His appetite is not good. iron sat was low 12% but ferritin was 57. Review of Systems Review of Systems: Constitutional : -Weight loss, No Fever, No Chills ENT/Mouth : No sore throat, No Rhinorrhea Eyes: No Swelling, No Redness Cardiovascular : No Chest Pain, No SOB, No Edema Respiratory : No Cough, No Sputum, No Wheezing Gastrointestinal : see HPI Genitourinary : NO Dysuria, No Urinary Frequency, No Hematuria, No Urgency Musculoskeletal : + joint pain, No Myalgias, No Joint Swelling Skin : celulitis, ulcers Neuro : No Weakness, No Numbness, No Dizziness, No Headache Psych : No Anxiety/Panic, No Depression Heme/Lymph: No Bruising, No Lymphadenopathy Endocrine : No Polyuria, No Polydipsia All other systems reviewed and are negative. [facility] Past Medical History Medical History Arm ulcer MRSA bacteremia Suicidal ideation Depression Diabetes Cocaine use with cocaine-induced disorder Opiate dependence, continuous Major depressive disorder, recurrent severe without psychotic features Depression Anxiety IVDU (intravenous drug user) Diabetes Asthma Family History Family History Father Heart disease Pertinent family history: no FH of crc, crohns ibd Family history: reviewed and not pertinent Social History Social History Household Members: Family Household Members Other:: Mother and brother Housing: House Do you presently have visiting nurse or other home services: No Alcohol intake: unknown Comment: 1:1 sitter present for SI plan Patient Tobacco Use Status: Current everyday Tobacco user Tobacco use type: Cigarette Cigarette Packs Per Day: 1.5 Cigarettes Per Day: 30.0 Years Smoked: 15 e-Cigarette/Vaping Use: Former Use Second Hand Smoke Exposure: No Substance Use Type: Crack/Cocaine, Heroin and IV Drugs Advance Directives Date on File: 01/30/21 service: No Current occupational status: unemployed Sexual orientation: Straight/Heterosexual Meds Allergies Allergy/AdvReac Type Severity Reaction Status Date / Time Pertussis Vaccines Allergy Mild HIVES Verified 01/01/24 02:18 [PERTUSSIS VACCINES] Active Medications: Current Medications Acetaminophen (Acetaminophen 325 Mg Tablet) 975 mg PO QSHIFT [facility] Last Admin: 01/03/24 08:10 Dose: Not Given Amoxicillin/Clavulanate Potassium (Amoxicillin/Potassium Clav 875 Mg Tablet) 875 mg PO Q12H [facility] Last Admin: 01/03/24 11:24 Dose: 875 mg Baclofen (Baclofen 10 Mg Tablet) 10 mg PO BEDTIME [facility] Last Admin: 01/02/24 20:30 Dose: 10 mg Bisacodyl (Bisacodyl 5 Mg Tablet.Dr) 20 mg PO ONCE ONE Stop: 01/03/24 13:46 Clonazepam (Clonazepam 1 Mg Tablet) 1 mg PO TID [facility] Last Admin: 01/03/24 08:09 Dose: 1 mg Collagenase (Collagenase Clostridium Hist. 30 Gm Tube) 1 appl TOPICAL DAILY [facility]; Protocol Last Admin: 01/03/24 09:09 Dose: 1 appl Doxycycline Monohydrate (Doxycycline Monohydrate 100 Mg Capsule) 100 mg PO Q12H [facility] Last Admin: 01/03/24 11:24 Dose: 100 mg Enoxaparin Sodium (Enoxaparin Sodium 40 Mg/0.4 Ml Syringe) 40 mg SUBCUT Q24H [facility] Last Admin: 01/03/24 11:25 Dose: Not Given Fluoxetine HCl (Fluoxetine Hcl 20 Mg Capsule) 40 mg PO DAILY [facility] Last Admin: 01/03/24 08:09 Dose: 40 mg Gabapentin (Gabapentin 600 Mg Tablet) 600 mg PO TID [facility] Last Admin: 01/03/24 08:09 Dose: 600 mg Gabapentin (Gabapentin 300 Mg Capsule) 300 mg PO BEDTIME [facility] Last Admin: 01/02/24 20:29 Dose: 300 mg Ibuprofen (Ibuprofen 400 Mg Tablet) [facility] Last Admin: 01/03/24 08:09 Dose: 400 mg Methadone HCl (Methadone Hcl 20 Mg/2 Ml Oral.Conc) 140 mg PO DAILY [facility] Last Admin: 01/03/24 08:09 Dose: 140 mg Mirtazapine (Mirtazapine 7.5 Mg Tablet) 7.5 mg PO BEDTIME [facility] Last Admin: 01/02/24 20:29 Dose: 7.5 mg Morphine Sulfate (Morphine Sulfate 4 Mg/Ml Cartridge) 2 mg IVPUSH Q4H PRN; Protocol PRN Reason: Pain, Severe (Pain Scale 7-10) Last Admin: 01/03/24 09:03 Dose: 2 mg Nicotine Polacrilex (Nicotine Polacrilex 2 Mg Gum) 2 mg BUCCAL Q2H PRN PRN Reason: Craving Last Admin: 01/03/24 09:03 Dose: 2 mg Ondansetron HCl (Ondansetron Hcl 4 Mg/2 Ml Vial) 4 mg IVPUSH Q8H PRN PRN Reason: Nausea and Vomiting Pharmacy Consult (Consult Rx Vancomycin Dosing) 1 each MISCELLANE DAILY PRN PRN Reason: Consult order Polyethylene Glycol/Electrolytes (Peg 3350/Na Sulf,Bicarb,Cl/Kcl 4,000 Ml Soln.Recon) 240 ml PO Q10M [facility] Stop: 01/03/24 20:41 Quetiapine Fumarate (Quetiapine Fumarate 100 Mg Tablet) 100 mg PO BEDTIME PRN PRN Reason: Sleep Last Admin: 01/02/24 20:30 Dose: 100 mg Sodium Biphosphate/Sodium Phosphate (Sodium Phosphate,Chowan-Dibasic 133 Ml Enema) 133 ml WI ONCE PRN PRN Reason: Consult order Sodium Chloride (0.9 % Sodium Chloride Flush 3 Ml Syringe) [facility] Last Admin: 01/03/24 08:10 Dose: 3 ml Home Medications ?Medication ?Instructions ?Recorded ?Confirmed ?Last Taken ?Type baclofen 10 mg tablet 10 mg PO BEDTIME cocaine withdrawal 10/13/23 01/01/24 12/31/23 History fluoxetine 40 mg capsule 40 mg PO DAILY 10/13/23 01/01/24 12/31/23 History gabapentin 600 mg tablet 600 mg PO TID 10/13/23 01/01/24 12/31/23 History methadone 10 mg/mL oral 140 mg PO DAILY 10/13/23 01/02/24 01/01/24 11:20 History concentrate (Methadone Intensol) quetiapine 100 mg tablet 100 mg PO BEDTIME PRN Sleep 10/13/23 01/01/24 12/04/23 History clonazepam 1 mg tablet 1 mg PO TID 12/05/23 01/01/24 12/31/23 History gabapentin 300 mg capsule 300 mg PO BEDTIME 12/05/23 01/01/24 12/31/23 History ibuprofen 200 mg tablet 400 mg PO Q6H PRN Pain 12/05/23 01/01/24 12/04/23 History mirtazapine 7.5 mg tablet 7.5 mg PO BEDTIME 12/05/23 01/01/24 12/31/23 History Physical Exam Vital Signs: Vital Signs: Last Vital Signs Temp 98 F 01/03/24 07:49 Pulse 60 01/03/24 11:53 Resp 16 01/03/24 07:49 BP 119/55 L 01/03/24 11:53 Pulse Ox 98 01/03/24 11:53 O2 Del Method Room Air 01/03/24 07:49 BMI result Body Mass Index 28.3 EXAM: GENERAL: The patient is well developed and nontoxic. VITAL SIGNS:see workflow HEENT: Nonicteric sclerae, PERRLA, EOMI. Oropharynx clear. Moist mucous membranes. Conjunctivae appear well perfused. No thyroid mass. CHEST: Chest wall is nontender. HEART: Regular rate and rhythm without murmurs. LUNGS: Clear to auscultation bilaterally. ABDOMEN: Soft, positive bowel sounds, nontender, no organomegaly.no flank tenderness SKIN: Bandage on right arm, with dressing. left arm skin dry and patchy red areas NEUROLOGIC: Cranial nerves II-XII intact without motor/sensory deficit. Psych: normal affect Results Labs 01/03/24 09:58 01/03/24 09:31 Labs: Short CBC 01/03/24 Range/Units 09:58 WBC 6.5 (4.8-10.8) X10*3/uL Hgb 6.9 L* (14.0-18.0) g/dl Hct 23.6 L (42.0-52.0) % Plt Count 413 H (160-400) X10*3/uL BMP 01/03/24 09:31 Creatinine 0.80 Microbiology Microbiology Results: Microbiology 01/01/24 02:47 Blood - Venous Blood Culture - Preliminary No growth after 48 hours. 01/01/24 02:48 Blood - Venous Blood Culture - Preliminary No growth after 48 hours. Assessment and Plan (1) Microcytic anemia: Status: Acute Plan 1/ Acute on chronic microcytic anemia with c/o overt GIB ddx: hemorrhoids, colitis, neoplasia could also be an element of ACD due to his chronic arm wounds as well as malnutrition- Hep C and HIV neg PLAN: 1/ EGD and colo tomorrow 2/ golyte tonight with clears, will add dulcolax, senna and enema today to facilitate prep 3/ can add low dose PPI IV for the moment Procedures Date of Service Date of Service: 01/03/24
[2024-01-03 14:24] LABS: Iron 24 mcg/dL (45-160); Percent Iron Saturation 12 % (15-50); Total Iron Binding Capacity 202 mcg/dL (228-428); Unsaturated Iron Binding 178 ug/dL
[2024-01-03 14:33] LABS: Ferritin 57 ng/mL (20-250); Thyroid Stimulating Hormone 1.29 uIU/mL (0.32-4.0)
[2024-01-03 14:41] LABS: Folate 8.6 ng/mL (> or = 4.0); Vitamin B12 371 pg/mL (200-900)
[2024-01-03] MEDS: bisacodyL 5 MG TABLET.DR 20 MG PO (16:05)
--- NOTE | 2024-01-03 16:23 | MHC.CM.PN ---
EMR REVIEWED, PER CARE TEAM PT SEE BY PROVIDER WHO REPORTED TO PT THAT PT WOULD BE SEC 35'D IF PT WENT TO UNIT, PT DECLINED IPLOC D/T NOT WANTING TO BE SEC 35'D. PT STILL REFUSING SA TX AND HAS BEEN BY RECOVERY TEAM PROVIDER AND RN ON SEPARATE OCCASIONS. CM ALSO CONTACTED SAMPLE PREPARATION SUPERVISOR RESPITE WAS TRANSFERRED MULTIPLE TIMES AND DIRECTED CM TO CONTACT MULTIPLE DIFFERENT NUMBERS AND CM LEFT MESSAGE FOR DIRECTOR FOR SAMPLE PREPARATION SUPERVISOR RESPITE DANIELLE AT [phone], NO ANSWER AND DETAILED MESSAGE LEFT, THESE CALLS INCLUDED NOHO/SFLD/GFLD. CM ALSO COONTACTED [facility] RESPITE AND SPOKE W/STAFF WHO REPORT PT WILL NEED A CRISIS EVAL COMPLETED ON DAY OF DC AND WILL NEED TO SEE IF PT WOULD QUALIFY, CM DISCUSSED W/OLEGTEAM WHO RECOMMEND PT PRESENT TO LIVING RM TO AWAIT A [facility] CRISIS EVAL AND THEY CAN PLACE HIM IN RESPITE IF APPROPRIATE. OF NOTE THERE ARE OPTIONS FOR PT TO HAVE INPT SA TX HOWEVER PT REFUSES AND DOES NOT WANT TO BE AROUND SUBSTANCE ABUSERS. ANTIC PT WILL BE CLEARED FOR DC TOMORROW 01/03, CM WILL REQUEST NEW PT/HOSPITAL FOLLOW-UP APPT W/PREVIOUS OR NEW PCP AND PROVIDE BUS PASSES OR LYFT IF PT HAS AN ADDRESS TO GO TO.
[2024-01-03] MEDS: PEG 3350/Na Sulf,Bicarb,Cl/KCL 4,000 ML SOLN.RECON 4000 ML PO (18:01)
[2024-01-03] MEDS: Baclofen 10 MG TABLET PO (21:20)
[2024-01-03] MEDS: Mirtazapine 7.5 MG TABLET PO (21:20)
[2024-01-03] MEDS: Gabapentin 300 MG CAPSULE PO (21:21)
--- NOTE | 2024-01-03 23:00 | PC.NURSE ---
Assumed care of patient at this time.
[2024-01-04] VITALS (13 sets, daily range): BP systolic 87–132; BP diastolic 48–88; PULSE 46–54; RESP 13–18; TEMP 36–36.9; O2SAT 97–99; BMI 25.8
[2024-01-04] MEDS: 0.9 % Sodium Chloride Flush 3 ML SYRINGE IVFLUSH ×2 (00:44→11:27)
[2024-01-04] MEDS: Ibuprofen 400 MG TABLET PO ×3 (00:44→16:17)
[2024-01-04] MEDS: ondansetron HCL 4 MG/2 ML VIAL IVPUSH (00:44)
[2024-01-04 08:20] LABS: Hematocrit 21.1 % (42.0-52.0); Mean Corpuscular HGB Conc 28.9 g/dl (31.0-36.0); Mean Corpuscular Hemoglobin 17.6 pg (27.0-33.0); Platelet Count 396 X10*3/uL (160-400); Red Blood Count 3.46 X10*6/uL (4.60-5.80); Red Cell Distribution Width 17.7 % (11.0-16.0); White Blood Count 7.1 X10*3/uL (4.8-10.8)
[2024-01-04 08:30] LABS: Hemoglobin 6.1 g/dl (14.0-18.0)
[2024-01-04 08:33] LABS: Estimated Glomerular Filt Rate > 60
--- NOTE | 2024-01-04 09:40 | MHC.CM.PN ---
EMR REVIEWED, PT'S HGB DECREASED FROM 6.9 TO 6.1, ANTIC PT WILL BE TRANSFUSED, NO PLNA FOR DC AT THIS TIME, CM WILL CONT TO FOLLOW AND RETURN CALL FROM ENGINE ASSEMBLER RESPITE INSURANCE DEFENSE ATTORNEY.
--- NOTE | 2024-01-04 09:45 | P.PNIM_ITS ---
Subjective Subjective Date of Service: 01/04/24 Interval History: f/u on cellulis of r forearm denies SI, H/H lower, no active bleed Physical Exam 2 Vital Signs: Vital Signs: Last Vital Signs Temp 97.1 F 01/04/24 08:00 Pulse 50 01/04/24 08:00 Resp 16 01/04/24 08:00 BP 123/88 01/04/24 08:00 Pulse Ox 97 01/04/24 08:00 O2 Del Method Room Air 01/04/24 08:00 BMI result Body Mass Index 28.3 General: AO X 3, no acute distress Resp: CTA bilateral CVS: S1,S2,RRR GI: +BS, NT, no distention Skin: 01/01 essentially unchanged Neuro: motor grossly intact Psych: appropriate affect Const: General: cooperative Objective Data Active Medications Acetaminophen (Acetaminophen 325 Mg Tablet) 975 mg PO QSHIFT [facility] Last Admin: 01/04/24 00:44 Dose: Not Given Documented By: PAULIE Non-Admin Reason: Patient Refused Amoxicillin/Clavulanate Potassium (Amoxicillin/Potassium Clav 875 Mg Tablet) 875 mg PO Q12H [facility] Last Admin: 01/03/24 21:20 Dose: 875 mg Documented By: ARMANDO Baclofen (Baclofen 10 Mg Tablet) 10 mg PO BEDTIME [facility] Last Admin: 01/03/24 21:20 Dose: 10 mg Documented By: ARMANDO Clonazepam (Clonazepam 1 Mg Tablet) 1 mg PO TID [facility] Last Admin: 01/03/24 21:20 Dose: 1 mg Documented By: ARMANDO Collagenase (Collagenase Clostridium Hist. 30 Gm Tube) 1 appl TOPICAL DAILY [facility]; Protocol Last Admin: 01/03/24 09:09 Dose: 1 appl Documented By: ARMANDO Doxycycline Monohydrate (Doxycycline Monohydrate 100 Mg Capsule) 100 mg PO Q12H [facility] Last Admin: 01/03/24 21:20 Dose: 100 mg Documented By: ARMANDO Enoxaparin Sodium (Enoxaparin Sodium 40 Mg/0.4 Ml Syringe) 40 mg SUBCUT Q24H [facility] Last Admin: 01/03/24 11:25 Dose: Not Given Documented By: ARMANDO Non-Admin Reason: Patient Refused Fluoxetine HCl (Fluoxetine Hcl 20 Mg Capsule) 40 mg PO DAILY [facility] Last Admin: 01/03/24 08:09 Dose: 40 mg Documented By: ARMANDO Gabapentin (Gabapentin 600 Mg Tablet) 600 mg PO TID [facility] Last Admin: 01/03/24 21:20 Dose: 600 mg Documented By: ARMANDO Gabapentin (Gabapentin 300 Mg Capsule) 300 mg PO BEDTIME [facility] Last Admin: 01/03/24 21:21 Dose: 300 mg Documented By: ARMANDO Sodium Chloride (Ns) 100 mls @ 100 mls/hr IV ONCE ONE Stop: 01/04/24 10:12 Sodium Chloride (Ns) 100 mls @ 100 mls/hr IV ONCE ONE Stop: 01/04/24 10:12 [facility]uprofen ([facility] 400 Mg Tablet) [facility] Last Admin: 01/04/24 00:44 Dose: 400 mg Documented By: PAULIE Methadone HCl (Methadone Hcl 20 Mg/2 Ml Oral.Conc) 140 mg PO DAILY [facility] Last Admin: 01/03/24 08:09 Dose: 140 mg Documented By: ARMANDO Mirtazapine (Mirtazapine 7.5 Mg Tablet) 7.5 mg PO BEDTIME [facility] Last Admin: 01/03/24 21:20 Dose: 7.5 mg Documented By: ARMANDO Morphine Sulfate (Morphine Sulfate 4 Mg/Ml Cartridge) 2 mg IVPUSH Q4H PRN; Protocol PRN Reason: Pain, Severe (Pain Scale 7-10) Last Admin: 01/03/24 19:49 Dose: 2 mg Documented By: ARMANDO Nicotine Polacrilex (Nicotine Polacrilex 2 Mg Gum) 2 mg BUCCAL Q2H PRN PRN Reason: Craving Last Admin: 01/03/24 19:50 Dose: 2 mg Documented By: ARMANDO Ondansetron HCl (Ondansetron Hcl 4 Mg/2 Ml Vial) 4 mg IVPUSH Q8H PRN PRN Reason: Nausea and Vomiting Last Admin: 01/04/24 00:44 Dose: 4 mg Documented By: PAULIE Pharmacy Consult (Consult Rx Vancomycin Dosing) 1 each MISCELLANE DAILY PRN PRN Reason: Consult order Quetiapine Fumarate (Quetiapine Fumarate 100 Mg Tablet) 100 mg PO BEDTIME PRN PRN Reason: Sleep Last Admin: 01/02/24 20:30 Dose: 100 mg Documented By: GASPER Sodium Biphosphate/Sodium Phosphate (Sodium Phosphate,[place]-Dibasic 133 Ml Enema) 133 ml AR ONCE PRN PRN Reason: Consult order Sodium Chloride (0.9 % Sodium Chloride Flush 3 Ml Syringe) 3 ml IVFLUSH QSHIFT [facility] Last Admin: 01/04/24 00:44 Dose: 3 ml Documented By: PAULIE Labs 01/04/24 08:08 01/04/24 08:07 Labs: Laboratory Results - last 24 hr 01/02/24 01/03/24 01/03/24 15:51 09:31 09:58 MCV 60.5 L MCH 17.7 L MCHC 29.2 L RDW 17.8 H Plt Count 413 H MPV 9.9 Absolute Nucleated RBC 0.000 Nucleated RBC % (auto) 0.0 Estim Creat Clear Calc 143.2 Estimated GFR > 60 Iron 24 L TIBC 202 L % Saturation 12 L Unsat Iron Binding 178 Ferritin 57 Vitamin B12 371 Folate 8.6 TSH 1.29 Urine Opiates Screen Ur Buprenorphine Scrn Ur Oxycodone Screen Urine Methadone Screen Urine Fentanyl Screen Ur Barbiturates Screen Ur Phencyclidine Scrn Ur Amphetamines Screen U Benzodiazepines Scrn Urine Cocaine Screen U Marijuana (THC) Screen Blood Type Antibody Screen Crossmatch 01/03/24 01/04/24 01/04/24 Unknown 08:07 08:08 MCV 61.0 L MCH 17.6 L MCHC 28.9 L RDW 17.7 H Plt Count 396 MPV 10.0 Absolute Nucleated RBC 0.000 Nucleated RBC % (auto) 0.0 Estim Creat Clear Calc 157.0 Estimated GFR > 60 Iron TIBC % Saturation Unsat Iron Binding Ferritin Vitamin B12 Folate TSH Urine Opiates Screen POSITIVE H Ur Buprenorphine Scrn Not Detected Ur Oxycodone Screen Not Detected Urine Methadone Screen Positive H Urine Fentanyl Screen POSITIVE H Ur Barbiturates Screen Not Detected Ur Phencyclidine Scrn Not Detected Ur Amphetamines Screen Not Detected U Benzodiazepines Scrn Not Detected Urine Cocaine Screen POSITIVE H U Marijuana (THC) Screen Not Detected Blood Type Antibody Screen Crossmatch 01/04/24 08:35 MCV MCH MCHC RDW Plt Count MPV Absolute Nucleated RBC Nucleated RBC % (auto) Estim Creat Clear Calc Estimated GFR Iron TIBC % Saturation Unsat Iron Binding Ferritin Vitamin B12 Folate TSH Urine Opiates Screen Ur Buprenorphine Scrn Ur Oxycodone Screen Urine Methadone Screen Urine Fentanyl Screen Ur Barbiturates Screen Ur Phencyclidine Scrn Ur Amphetamines Screen U Benzodiazepines Scrn Urine Cocaine Screen U Marijuana (THC) Screen Blood Type O Positive Antibody Screen NEGATIVE Crossmatch See Detail Assessment and Plan (1) Abscess of forearm, right: Status: Acute (2) Right radial nerve palsy: Status: Acute Plan A 33 years old male with PMH of drug abuse, recent cellulitis who presented to the hospital with worsening RUE open wounds with associated pain and drainage. Right forearm deep tissue infection with multiple infected ulcers secondary to habitual IV xylazine ingestion into the site evaluated by surgery with no evidence of deep abscess; recommendation: Santyl to the areas or if not available just wet to dry ID recommend PO Doxy+ Augmentin. Stop Vanco and Zosyn today recent Right wrist drop secondary to radial nerve palsy. was on Velcro splint x 4-6 weeks. improved. IVDU. Cocaine and opiates. continue methadone seen by addition med: Not interested in further treatment or options Acute on chronic anemia, no obvious active bleed, -agreable to work up with EGD+ Colonoscopy -transfuse 2 units Mood disorder. Continue mood stabilizers depresson: Denying SI, and doesn't want Psych admission DC sitter Code status: Full DVT prophylaxis: Early ambulation need for inpatient: r right arm cellulitis and deep tissue infection for treatment with IV antibiotics pending final cultures and surgical evaluation Quality Stroke Does the patient have a stroke diagnosis?: No VTE Prior VTE?: No VTE Risk Level:: Medical - moderate - high VTE Device Contraindication: Treatment Not Indicated VTE Drug Contraindication: N/A - Med Ordered
--- NOTE | 2024-01-04 10:15 | PM.PNGS ---
Subjective Subjective Date of Service: 01/04/24 Interval history: Says he is ?okay? he is to undergo EGD and colonoscopy for anemia, no signs of active bleeding No complaints with regards to his right upper arm wound Physical Exam Vital Signs: Vital Signs: Last Vital Signs Temp 97.1 F 01/04/24 08:00 Pulse 50 01/04/24 08:00 Resp 16 01/04/24 08:00 BP 123/88 01/04/24 08:00 Pulse Ox 97 01/04/24 08:00 O2 Del Method Room Air 01/04/24 08:00 BMI result Body Mass Index 28.3 Const: General: comfortable and no acute distress Resp: Effort & Inspection: normal respiratory effort Cardio: Rate: regular rate GI: Palpation (GI): Soft to palpation, not firm and nontender Extrem: Other: Right upper arm open wound still with some exudates but much improved, no cellulitis Objective Data Active Medications Acetaminophen (Acetaminophen 325 Mg Tablet) 975 mg PO QSHIFT [facility] Last Admin: 01/04/24 00:44 Dose: Not Given Documented By: PAULIE Non-Admin Reason: Patient Refused Amoxicillin/Clavulanate Potassium (Amoxicillin/Potassium Clav 875 Mg Tablet) 875 mg PO Q12H [facility] Last Admin: 01/03/24 21:20 Dose: 875 mg Documented By: ARMANDO Baclofen (Baclofen 10 Mg Tablet) 10 mg PO BEDTIME [facility] Last Admin: 01/03/24 21:20 Dose: 10 mg Documented By: ARMANDO Clonazepam (Clonazepam 1 Mg Tablet) 1 mg PO TID [facility] Last Admin: 01/03/24 21:20 Dose: 1 mg Documented By: ARMANDO Collagenase (Collagenase Clostridium Hist. 30 Gm Tube) 1 appl TOPICAL DAILY [facility]; Protocol Last Admin: 01/03/24 09:09 Dose: 1 appl Documented By: ARMANDO Doxycycline Monohydrate (Doxycycline Monohydrate 100 Mg Capsule) 100 mg PO Q12H [facility] Last Admin: 01/03/24 21:20 Dose: 100 mg Documented By: ARMANDO Enoxaparin Sodium (Enoxaparin Sodium 40 Mg/0.4 Ml Syringe) 40 mg SUBCUT Q24H [facility] Last Admin: 01/03/24 11:25 Dose: Not Given Documented By: ARMANDO Non-Admin Reason: Patient Refused Fluoxetine HCl (Fluoxetine Hcl 20 Mg Capsule) 40 mg PO DAILY [facility] Last Admin: 01/03/24 08:09 Dose: 40 mg Documented By: ARMANDO Gabapentin (Gabapentin 600 Mg Tablet) 600 mg PO TID [facility] Last Admin: 01/03/24 21:20 Dose: 600 mg Documented By: ARMANDO Gabapentin (Gabapentin 300 Mg Capsule) 300 mg PO BEDTIME [facility] Last Admin: 01/03/24 21:21 Dose: 300 mg Documented By: ARMANDO Ibuprofen (Ibuprofen 400 Mg Tablet) 400 mg PO QSHIFT [facility] Last Admin: 01/04/24 00:44 Dose: 400 mg Documented By: PAULIE Methadone HCl (Methadone Hcl 20 Mg/2 Ml Oral.Conc) 140 mg PO DAILY [facility] Last Admin: 01/03/24 08:09 Dose: 140 mg Documented By: ARMANDO Mirtazapine (Mirtazapine 7.5 Mg Tablet) 7.5 mg PO BEDTIME [facility] Last Admin: 01/03/24 21:20 Dose: 7.5 mg Documented By: ARMANDO Morphine Sulfate (Morphine Sulfate 4 Mg/Ml Cartridge) 2 mg IVPUSH Q4H PRN; Protocol PRN Reason: Pain, Severe (Pain Scale 7-10) Last Admin: 01/03/24 19:49 Dose: 2 mg Documented By: ARMANDO Nicotine Polacrilex (Nicotine Polacrilex 2 Mg Gum) 2 mg BUCCAL Q2H PRN PRN Reason: Craving Last Admin: 01/03/24 19:50 Dose: 2 mg Documented By: ARMANDO Ondansetron HCl (Ondansetron Hcl 4 Mg/2 Ml Vial) 4 mg IVPUSH Q8H PRN PRN Reason: Nausea and Vomiting Last Admin: 01/04/24 00:44 Dose: 4 mg Documented By: PAULIE Pharmacy Consult (Consult Rx Vancomycin Dosing) 1 each MISCELLANE DAILY PRN PRN Reason: Consult order Quetiapine Fumarate (Quetiapine Fumarate 100 Mg Tablet) 100 mg PO BEDTIME PRN PRN Reason: Sleep Last Admin: 01/02/24 20:30 Dose: 100 mg Documented By: GASPER Sodium Biphosphate/Sodium Phosphate (Sodium Phosphate,[place]-Dibasic 133 Ml Enema) 133 ml OR ONCE PRN PRN Reason: Consult order Sodium Chloride (0.9 % Sodium Chloride Flush 3 Ml Syringe) 3 ml IVFLUSH QSHIFT [facility] Last Admin: 01/04/24 00:44 Dose: 3 ml Documented By: PAULIE Labs 01/04/24 08:08 01/04/24 08:07 Labs: Laboratory Results - last 24 hr 01/02/24 01/03/24 01/03/24 15:51 09:31 09:58 MCV 60.5 L MCH 17.7 L MCHC 29.2 L RDW 17.8 H Plt Count 413 H MPV 9.9 Absolute Nucleated RBC 0.000 Nucleated RBC % (auto) 0.0 Estim Creat Clear Calc Estimated GFR Iron 24 L TIBC 202 L % Saturation 12 L Unsat Iron Binding 178 Ferritin 57 Vitamin B12 371 Folate 8.6 TSH 1.29 Urine Opiates Screen Ur Buprenorphine Scrn Ur Oxycodone Screen Urine Methadone Screen Urine Fentanyl Screen Ur Barbiturates Screen Ur Phencyclidine Scrn Ur Amphetamines Screen U Benzodiazepines Scrn Urine Cocaine Screen U Marijuana (THC) Screen Blood Type Antibody Screen Crossmatch 01/03/24 01/04/24 01/04/24 Unknown 08:07 08:08 MCV 61.0 L MCH 17.6 L MCHC 28.9 L RDW 17.7 H Plt Count 396 MPV 10.0 Absolute Nucleated RBC 0.000 Nucleated RBC % (auto) 0.0 Estim Creat Clear Calc 157.0 Estimated GFR > 60 Iron TIBC % Saturation Unsat Iron Binding Ferritin Vitamin B12 Folate TSH Urine Opiates Screen POSITIVE H Ur Buprenorphine Scrn Not Detected Ur Oxycodone Screen Not Detected Urine Methadone Screen Positive H Urine Fentanyl Screen POSITIVE H Ur Barbiturates Screen Not Detected Ur Phencyclidine Scrn Not Detected Ur Amphetamines Screen Not Detected U Benzodiazepines Scrn Not Detected Urine Cocaine Screen POSITIVE H U Marijuana (THC) Screen Not Detected Blood Type Antibody Screen Crossmatch 01/04/24 08:35 MCV MCH MCHC RDW Plt Count MPV Absolute Nucleated RBC Nucleated RBC % (auto) Estim Creat Clear Calc Estimated GFR Iron TIBC % Saturation Unsat Iron Binding Ferritin Vitamin B12 Folate TSH Urine Opiates Screen Ur Buprenorphine Scrn Ur Oxycodone Screen Urine Methadone Screen Urine Fentanyl Screen Ur Barbiturates Screen Ur Phencyclidine Scrn Ur Amphetamines Screen U Benzodiazepines Scrn Urine Cocaine Screen U Marijuana (THC) Screen Blood Type O Positive Antibody Screen NEGATIVE Crossmatch See Detail Procedures Date of Service Date of Service: 01/04/24 Progress Note: A&P Assessment and plan (1) Arm ulcer: Status: Acute Assessment and Plan: From recently infected access sites for drug abuse Much improved Would continue with Santyl dressings as recommended by wound care Patient to undergo EGD and colonoscopy as workup for his chronic anemia Time Spent With Patient Time: Total time managing care of this patient today ____ minutes. Quality Stroke Does the patient have a stroke diagnosis?: No VTE Prior VTE?: No VTE Risk Level:: Medical - moderate - high VTE Device Contraindication: Treatment Not Indicated VTE Drug Contraindication: N/A - Med Ordered
[2024-01-04] MEDS: FLUoxetine HCl 20 MG CAPSULE 40 MG PO (10:26)
[2024-01-04] MEDS: Gabapentin 600 MG TABLET PO ×3 (10:26→21:41)
[2024-01-04] MEDS: Amoxicillin/Potassium Clav 875 MG TABLET PO ×2 (10:26→21:41)
[2024-01-04] MEDS: Doxycycline Monohydrate 100 MG CAPSULE PO ×2 (10:26→21:41)
[2024-01-04] MEDS: clonazePAM 1 MG TABLET PO ×3 (10:27→21:41)
[2024-01-04] MEDS: methADONE HCl 20 MG/2 ML ORAL.CONC 140 MG PO (10:27)
[2024-01-04] MEDS: Morphine Sulfate 4 MG/ML CARTRIDGE 2 MG IVPUSH ×3 (10:38→21:40)
--- NOTE | 2024-01-04 10:59 | MHC.IC ---
Contact precautions in place due to OPEN WOUNDS/potentially MRSA. Pt has recent history of MRSA.
--- NOTE | 2024-01-04 13:12 | P.CONAN_ITS ---
[facility] Active Problems Active Problems: All Active Problems Microcytic anemia (Acute) Abscess of forearm, right (Acute) Right radial nerve palsy (Acute) Cocaine use disorder (Acute) Arm ulcer (Acute) Polysubstance abuse (Acute) Cellulitis of arm (Acute) Major depressive disorder, recurrent severe without psychotic features (Acute) Opioid use disorder (Acute) Past Medical History Medical History Arm ulcer MRSA bacteremia Suicidal ideation Depression Diabetes Cocaine use with cocaine-induced disorder Opiate dependence, continuous Major depressive disorder, recurrent severe without psychotic features Depression Anxiety IVDU (intravenous drug user) Diabetes Asthma Functional capacity: wheelchair bound Family History Family History Father Heart disease Family history of problems with anesthesia: No Surgical History History of Problems with Anesthesia: No Social History Social History Household Members: Family Household Members Other:: Mother and brother Housing: House Do you presently have visiting nurse or other home services: No Alcohol intake: unknown Comment: 1:1 sitter Patient Tobacco Use Status: Current everyday Tobacco user Tobacco use type: Cigarette Cigarette Packs Per Day: 1.5 Cigarettes Per Day: 30.0 Years Smoked: 15 e-Cigarette/Vaping Use: Former Use Second Hand Smoke Exposure: No Substance Use Type: Crack/Cocaine, Heroin and IV Drugs Advance Directives Date on File: 01/30/21 service: No Current occupational status: unemployed Sexual orientation: Straight/Heterosexual Meds Allergies Allergy/AdvReac Type Severity Reaction Status Date / Time Pertussis Vaccines Allergy Mild HIVES Verified 01/01/24 02:18 [PERTUSSIS VACCINES] Active Medications: Current Medications Acetaminophen (Acetaminophen 325 Mg Tablet) 975 mg PO QSHIFT [facility] Last Admin: 01/04/24 10:38 Dose: Not Given Amoxicillin/Clavulanate Potassium (Amoxicillin/Potassium Clav 875 Mg Tablet) 875 mg PO Q12H [facility] Last Admin: 01/04/24 10:26 Dose: 875 mg Baclofen (Baclofen 10 Mg Tablet) 10 mg PO BEDTIME [facility] Last Admin: 01/03/24 21:20 Dose: 10 mg Clonazepam (Clonazepam 1 Mg Tablet) 1 mg PO TID [facility] Last Admin: 01/04/24 10:27 Dose: 1 mg Collagenase (Collagenase Clostridium Hist. 30 Gm Tube) 1 appl TOPICAL DAILY [facility]; Protocol Last Admin: 01/04/24 10:39 Dose: Not Given Doxycycline Monohydrate (Doxycycline Monohydrate 100 Mg Capsule) 100 mg PO Q12H [facility] Last Admin: 01/04/24 10:26 Dose: 100 mg Enoxaparin Sodium (Enoxaparin Sodium 40 Mg/0.4 Ml Syringe) 40 mg SUBCUT Q24H [facility] Last Admin: 01/04/24 11:55 Dose: Not Given Fluoxetine HCl (Fluoxetine Hcl 20 Mg Capsule) 40 mg PO DAILY [facility] Last Admin: 01/04/24 10:26 Dose: 40 mg Gabapentin (Gabapentin 600 Mg Tablet) 600 mg PO TID [facility] Last Admin: 01/04/24 10:26 Dose: 600 mg Gabapentin (Gabapentin 300 Mg Capsule) 300 mg PO BEDTIME [facility] Last Admin: 01/03/24 21:21 Dose: 300 mg Ibuprofen (Ibuprofen 400 Mg Tablet) 400 mg PO QSHIFT [facility] Last Admin: 01/04/24 10:27 Dose: 400 mg Methadone HCl (Methadone Hcl 20 Mg/2 Ml Oral.Conc) 140 mg PO DAILY [facility] Last Admin: 01/04/24 10:27 Dose: 140 mg Mirtazapine (Mirtazapine 7.5 Mg Tablet) 7.5 mg PO BEDTIME [facility] Last Admin: 01/03/24 21:20 Dose: 7.5 mg Morphine Sulfate (Morphine Sulfate 4 Mg/Ml Cartridge) 2 mg IVPUSH Q4H PRN; Protocol PRN Reason: Pain, Severe (Pain Scale 7-10) Last Admin: 01/04/24 10:38 Dose: 2 mg Nicotine Polacrilex (Nicotine Polacrilex 2 Mg Gum) 2 mg BUCCAL Q2H PRN PRN Reason: Craving Last Admin: 01/03/24 19:50 Dose: 2 mg Ondansetron HCl (Ondansetron Hcl 4 Mg/2 Ml Vial) 4 mg IVPUSH Q8H PRN PRN Reason: Nausea and Vomiting Last Admin: 01/04/24 00:44 Dose: 4 mg Pharmacy Consult (Consult Rx Vancomycin Dosing) 1 each MISCELLANE DAILY PRN PRN Reason: Consult order Quetiapine Fumarate (Quetiapine Fumarate 100 Mg Tablet) 100 mg PO BEDTIME PRN PRN Reason: Sleep Last Admin: 01/02/24 20:30 Dose: 100 mg Sodium Biphosphate/Sodium Phosphate (Sodium Phosphate,Boundary-Dibasic 133 Ml Enema) 133 ml [place] ONCE PRN PRN Reason: Consult order Sodium Chloride (0.9 % Sodium Chloride Flush 3 Ml Syringe) 3 ml IVFLUSH QSHIFT [facility] Last Admin: 01/04/24 11:27 Dose: 3 ml Home Medications ?Medication ?Instructions ?Recorded ?Confirmed ?Last Taken ?Type baclofen 10 mg tablet 10 mg PO BEDTIME cocaine withdrawal 10/13/23 01/01/24 12/31/23 History fluoxetine 40 mg capsule 40 mg PO DAILY 10/13/23 01/01/24 12/31/23 History gabapentin 600 mg tablet 600 mg PO TID 10/13/23 01/01/24 12/31/23 History methadone 10 mg/mL oral 140 mg PO DAILY 10/13/23 01/02/24 01/01/24 11:20 History concentrate (Methadone Intensol) quetiapine 100 mg tablet 100 mg PO BEDTIME PRN Sleep 10/13/23 01/01/24 12/04/23 History clonazepam 1 mg tablet 1 mg PO TID 12/05/23 01/01/24 12/31/23 History gabapentin 300 mg capsule 300 mg PO BEDTIME 12/05/23 01/01/24 12/31/23 History ibuprofen 200 mg tablet 400 mg PO Q6H PRN Pain 12/05/23 01/01/24 12/04/23 History mirtazapine 7.5 mg tablet 7.5 mg PO BEDTIME 12/05/23 01/01/24 12/31/23 History Exam Height,Weight and Vital Signs: Height 5 ft 9 in Weight 86.8 kg Last Vital Signs Temp 97.0 F 01/04/24 12:05 Pulse 50 01/04/24 12:05 Resp 16 01/04/24 12:05 BP 122/57 L 01/04/24 12:05 Pulse Ox 97 01/04/24 08:00 O2 Del Method Room Air 01/04/24 08:00 Pertinent Lab Results Pertinent Lab Results: lLaboratory Tests 01/01/24 01/01/24 01/01/24 02:47 02:48 19:22 WBC 8.1 RBC 4.16 L Hgb 7.5 L Hct 25.0 L MCV 60.1 L MCH 18.0 L MCHC 30.0 L RDW 17.3 H Plt Count 480 H D MPV 9.5 Immature Gran % (Auto) 0.4 Neut % (Auto) 73.8 H Lymph % (Auto) 15.2 L Boundary % (Auto) 9.0 Eos % (Auto) 1.5 Baso % (Auto) 0.1 Lymph # (Auto) 1.2 Boundary # (Auto) 0.7 Eos # (Auto) 0.1 Baso # (Auto) 0.0 Abs Immat Gran (auto) 0.03 Absolute Neuts (auto) 6.0 Absolute Nucleated RBC 0.000 Nucleated RBC % (auto) 0.0 Hold Purple Top Sodium 138 Potassium 3.9 Chloride 102 Carbon Dioxide 25 Anion Gap 15 BUN 13 Creatinine 0.81 Estim Creat Clear Calc 129.7 Estimated GFR > 60 POC Glucose 71 Random Glucose 102 Lactic Acid 0.9 Calcium 9.6 Iron TIBC % Saturation Unsat Iron Binding Ferritin Total Bilirubin 0.2 AST 18 ALT 18 Alkaline Phosphatase 70 Total Protein 7.7 Albumin 3.6 Vitamin B12 Folate TSH Random Vancomycin Urine Opiates Screen Ur Buprenorphine Scrn Ur Oxycodone Screen Urine Methadone Screen Urine Fentanyl Screen Ur Barbiturates Screen Ur Phencyclidine Scrn Ur Amphetamines Screen U Benzodiazepines Scrn Urine Cocaine Screen U Marijuana (THC) Screen Hepatitis C Ab (EIA) HIV 1&2 Ab/P24 Ag 4thGn Blood Type Antibody Screen Crossmatch 01/02/24 01/02/24 01/02/24 09:39 10:44 11:05 WBC 4.7 L RBC 3.71 L Hgb 6.6 L* Hct 22.7 L MCV 61.2 L MCH 17.8 L MCHC 29.1 L RDW 17.8 H Plt Count 350 D MPV 9.9 Immature Gran % (Auto) Neut % (Auto) Lymph % (Auto) Boundary % (Auto) Eos % (Auto) Baso % (Auto) Lymph # (Auto) Boundary # (Auto) Eos # (Auto) Baso # (Auto) Abs Immat Gran (auto) Absolute Neuts (auto) Absolute Nucleated RBC 0.040 H Nucleated RBC % (auto) 0.9 H Hold Purple Top SEE NOTE Sodium 143 Potassium 4.1 Chloride 111 H Carbon Dioxide 25 Anion Gap 11 L BUN 9 Creatinine 0.74 Estim Creat Clear Calc 154.9 Estimated GFR > 60 POC Glucose Random Glucose 178 H Lactic Acid Calcium 9.0 D Iron TIBC % Saturation Unsat Iron Binding Ferritin Total Bilirubin AST ALT Alkaline Phosphatase Total Protein Albumin Vitamin B12 Folate TSH Random Vancomycin 10.0 L Urine Opiates Screen Ur Buprenorphine Scrn Ur Oxycodone Screen Urine Methadone Screen Urine Fentanyl Screen Ur Barbiturates Screen Ur Phencyclidine Scrn Ur Amphetamines Screen U Benzodiazepines Scrn Urine Cocaine Screen U Marijuana (THC) Screen Hepatitis C Ab (EIA) HIV 1&2 Ab/P24 Ag 4thGn Blood Type Antibody Screen Crossmatch 01/02/24 01/02/24 01/03/24 15:51 20:02 09:31 WBC RBC Hgb Hct MCV MCH MCHC RDW Plt Count MPV Immature Gran % (Auto) Neut % (Auto) Lymph % (Auto) Boundary % (Auto) Eos % (Auto) Baso % (Auto) Lymph # (Auto) Boundary # (Auto) Eos # (Auto) Baso # (Auto) Abs Immat Gran (auto) Absolute Neuts (auto) Absolute Nucleated RBC Nucleated RBC % (auto) Hold Purple Top Sodium Potassium Chloride Carbon Dioxide Anion Gap BUN Creatinine 0.80 Estim Creat Clear Calc 143.2 Estimated GFR > 60 POC Glucose Random Glucose Lactic Acid Calcium Iron 24 L TIBC 202 L % Saturation 12 L Unsat Iron Binding 178 Ferritin 57 Total Bilirubin AST ALT Alkaline Phosphatase Total Protein Albumin Vitamin B12 371 Folate 8.6 TSH 1.29 Random Vancomycin 10.3 L Urine Opiates Screen Ur Buprenorphine Scrn Ur Oxycodone Screen Urine Methadone Screen Urine Fentanyl Screen Ur Barbiturates Screen Ur Phencyclidine Scrn Ur Amphetamines Screen U Benzodiazepines Scrn Urine Cocaine Screen U Marijuana (THC) Screen Hepatitis C Ab (EIA) Nonreactive HIV 1&2 Ab/P24 Ag 4thGn Nonreactive Blood Type Antibody Screen Crossmatch 01/03/24 01/03/24 01/04/24 09:58 Unknown 08:07 WBC 6.5 RBC 3.90 L Hgb 6.9 L* Hct 23.6 L MCV 60.5 L MCH 17.7 L MCHC 29.2 L RDW 17.8 H Plt Count 413 H MPV 9.9 Immature Gran % (Auto) Neut % (Auto) Lymph % (Auto) Boundary % (Auto) Eos % (Auto) Baso % (Auto) Lymph # (Auto) Boundary # (Auto) Eos # (Auto) Baso # (Auto) Abs Immat Gran (auto) Absolute Neuts (auto) Absolute Nucleated RBC 0.000 Nucleated RBC % (auto) 0.0 Hold Purple Top Sodium Potassium Chloride Carbon Dioxide Anion Gap BUN Creatinine 0.73 Estim Creat Clear Calc 157.0 Estimated GFR > 60 POC Glucose Random Glucose Lactic Acid Calcium Iron TIBC % Saturation Unsat Iron Binding Ferritin Total Bilirubin AST ALT Alkaline Phosphatase Total Protein Albumin Vitamin B12 Folate TSH Random Vancomycin Urine Opiates Screen POSITIVE H Ur Buprenorphine Scrn Not Detected Ur Oxycodone Screen Not Detected Urine Methadone Screen Positive H Urine Fentanyl Screen POSITIVE H Ur Barbiturates Screen Not Detected Ur Phencyclidine Scrn Not Detected Ur Amphetamines Screen Not Detected U Benzodiazepines Scrn Not Detected Urine Cocaine Screen POSITIVE H U Marijuana (THC) Screen Not Detected Hepatitis C Ab (EIA) HIV 1&2 Ab/P24 Ag 4thGn Blood Type Antibody Screen Crossmatch 01/04/24 01/04/24 08:08 08:35 WBC 7.1 RBC 3.46 L Hgb 6.1 L* Hct 21.1 L MCV 61.0 L MCH 17.6 L MCHC 28.9 L RDW 17.7 H Plt Count 396 MPV 10.0 Immature Gran % (Auto) Neut % (Auto) Lymph % (Auto) Boundary % (Auto) Eos % (Auto) Baso % (Auto) Lymph # (Auto) Boundary # (Auto) Eos # (Auto) Baso # (Auto) Abs Immat Gran (auto) Absolute Neuts (auto) Absolute Nucleated RBC 0.000 Nucleated RBC % (auto) 0.0 Hold Purple Top Sodium Potassium Chloride Carbon Dioxide Anion Gap BUN Creatinine Estim Creat Clear Calc Estimated GFR POC Glucose Random Glucose Lactic Acid Calcium Iron TIBC % Saturation Unsat Iron Binding Ferritin Total Bilirubin AST ALT Alkaline Phosphatase Total Protein Albumin Vitamin B12 Folate TSH Random Vancomycin Urine Opiates Screen Ur Buprenorphine Scrn Ur Oxycodone Screen Urine Methadone Screen Urine Fentanyl Screen Ur Barbiturates Screen Ur Phencyclidine Scrn Ur Amphetamines Screen U Benzodiazepines Scrn Urine Cocaine Screen U Marijuana (THC) Screen Hepatitis C Ab (EIA) HIV 1&2 Ab/P24 Ag 4thGn Blood Type O Positive Antibody Screen NEGATIVE Crossmatch See Detail Airway Mallampati Class: II (loose tooth top right) TM Dist: >3cm Neck ROM: Full Heart: rr Lungs: cta Assessment and Plan Assessment Anesthesia Assessment: Anesthesia Plan Discussed and Chart Reviewed Final Anesthetic Review Family History of Problems with Anesthesia: No History of Problems with Anesthesia: No NPO: Yes ASA Class: III Final Preanesthetic Review: No Changes in Pt Med Stat, Meds/Allgs Chart Reviewed and Consent Obtained/Reviewed Patient Risk: Low Procedure Risk: Intermediate Anesthetic Plan Anesthetic Plan: MAC: Disposition: Standard PACU
[2024-01-04] MEDS: Dextrose 5 % 100 ML 20 ML IV (13:35)
[2024-01-04 13:42] LABS: Glucose, Whole Blood 59 mg/dL (60-115)
--- NOTE | 2024-01-04 13:42 | P.PNGI_ITS ---
Subjective Subjective Date of Service: 01/04/24 Interval History: No abdominal pain took prep and noted some blood in stool overnight no nausea or vomiting Critical Care Time (minutes): 0 Physical Exam 2 Vital Signs: Vital Signs: Last Vital Signs Temp 97.0 F 01/04/24 12:05 Pulse 50 01/04/24 12:05 Resp 16 01/04/24 12:05 BP 122/57 L 01/04/24 12:05 Pulse Ox 97 01/04/24 08:00 O2 Del Method Room Air 01/04/24 08:00 BMI result Body Mass Index 28.3 EXAM: GENERAL: The patient is well developed and nontoxic. VITAL SIGNS:see workflow HEENT: Nonicteric sclerae, PERRLA, EOMI. Oropharynx clear. Moist mucous membranes. Conjunctivae appear pale. No thyroid mass. CHEST: Chest wall is nontender. HEART: Regular rate and rhythm without murmurs. LUNGS: Clear to auscultation bilaterally. ABDOMEN: Soft, positive bowel sounds, nontender, no organomegaly.no flank tenderness SKIN: bandages on arms NEUROLOGIC: Cranial nerves II-XII intact without motor/sensory deficit. Psych: normal affect Objective Data Labs 01/04/24 08:08 01/04/24 08:07 Labs: Laboratory Results - last 24 hr 01/02/24 01/03/24 01/04/24 15:51 09:31 08:07 WBC RBC Hgb Hct MCV MCH MCHC RDW Plt Count MPV Absolute Nucleated RBC Nucleated RBC % (auto) Creatinine 0.73 Estim Creat Clear Calc 157.0 Estimated GFR > 60 POC Glucose Iron 24 L TIBC 202 L % Saturation 12 L Unsat Iron Binding 178 Ferritin 57 Vitamin B12 371 Folate 8.6 TSH 1.29 Blood Type Antibody Screen Crossmatch 01/04/24 01/04/24 01/04/24 08:08 08:35 13:34 WBC 7.1 RBC 3.46 L Hgb 6.1 L* Hct 21.1 L MCV 61.0 L MCH 17.6 L MCHC 28.9 L RDW 17.7 H Plt Count 396 MPV 10.0 Absolute Nucleated RBC 0.000 Nucleated RBC % (auto) 0.0 Creatinine Estim Creat Clear Calc Estimated GFR POC Glucose 59 L* Iron TIBC % Saturation Unsat Iron Binding Ferritin Vitamin B12 Folate TSH Blood Type O Positive Antibody Screen NEGATIVE Crossmatch See Detail Microbiology Microbiology Results: Microbiology 01/01/24 02:47 Blood - Venous Blood Culture - Preliminary No growth after 48 hours. 01/01/24 02:48 Blood - Venous Blood Culture - Preliminary No growth after 48 hours. Procedures Date of Service Date of Service: 01/04/24 Progress Note: A&P Assessment and plan (1) Microcytic anemia: Status: Acute Assessment and Plan: 1/ Acute on chronci anemia with rectal bleeding, could be low lying colonic lesion, or upper Gi bleed e.g PUD Plan: 1/ Agree w/ transfusion 1 u PRBC 2/ cont with PPI 3/ EGd and colo today Time Spent With Patient Time: Total time managing care of this patient today ____ minutes. Quality Stroke Does the patient have a stroke diagnosis?: No VTE Prior VTE?: No VTE Risk Level:: Medical - moderate - high VTE Device Contraindication: Treatment Not Indicated VTE Drug Contraindication: N/A - Med Ordered
--- NOTE | 2024-01-04 13:44 | MHC.SHP ---
Pre-Procedural Eval Section A - 24 Hr Update-Section A only Date of Service: 01/04/24 The patient is an INPATIENT: Yes The patient has been examined within 24 hours of the surgical procedure. The History & Physical has been completed within 30 days and I have reviewed it.: Yes Section B - Complete if H&P > 30 days Chief Complaint: worsening RUE wound, Deep skin infection Allergies: Allergies Allergy/AdvReac Type Severity Reaction Status Date / Time Pertussis Vaccines Allergy Mild HIVES Verified 01/01/24 02:18 [PERTUSSIS VACCINES] Plan Diagnosis/Plan: Unchanged I have reviewed the history and physical and performed a pertinent physical examination on my patient. No changes have occurred unless specified.egd, colo Time Spent With Patient Time: Total time managing care of this patient today ____ minutes.
[2024-01-04] MEDS: Lactated Ringers 1,000 ML 100 ML IVCONT ×2 (13:58→20:01)
[2024-01-04 14:05] LABS: Glucose, Whole Blood 83 mg/dL (60-115)
--- NOTE | 2024-01-04 14:06 | HO.OPN-COLON ---
Colonoscopy Operative Note Operative Note Date of Service: 01/04/24 Narrative: Operative Information Procedure Description: EGD, Colonoscopy Indication: anemia, rectal bleeding Anesthesia: MAC FLEXIBLE TRANSORAL UPPER GASTROINTESTINAL ENDOSCOPY AND COLONOSCOPY PROCEDURE NOTE UPPER ENDOSCOPY Consent: Indications for the procedure and potential complications of bleeding, perforation, reaction to medications and missed diagnosis were discussed with the patient and informed consent was obtained. Instrument: Olympus GIF H 190 J mid size upper endoscope Monitoring: Vital signs and clinical assessment, continuous EKG monitoring, Pulse oximetry, Carbon Dioxide monitoring and blood pressure monitoring were done throughout the procedure. Procedure: The patient was placed in the left lateral decubitis position and pre-procedure medications were administered and a bite block was placed. The endoscope was inserted into the mouth and advanced under direct vision to the third part of duodenum. A careful inspection was made as the upper endoscope was withdrawn including a retroflexed examination of the proximal stomach; Findings and interventions are described below. Findings: Larynx:normal Esophagus: GE junction at 40 cm, diaphragm hiatus at 40 cm, normal mucosa Stomach: mild erythema. Biopsies were obtained. Grade 2 flap valve on retroflexed examination of the cardia. Duodenum: Normal bulb and descending duodenum, bx taken to r/o celiac sprue Intervention: Biopsies as noted above, COLONOSCOPY Instrument: Olympus variable stiffness pediatric scope 190L Colonoscopy Monitoring: Vital signs and clinical assessment, continuous EKG monitoring, Pulse oximetry, Carbon Dioxide monitoring and blood pressure monitoring were done throughout the procedure. Colon withdrawal time was 22 minutes. Procedure: The patient was placed in the left lateral decubitis position and pre-procedure medications were administered. After a digital rectal examination of the ano-rectum, the video colonoscope was inserted into the rectum and advanced through the colon to the cecum/TI. The colonoscope was slowly withdrawn in a retrograde panoramic fashion and the colon mucosa was carefully examined including a retroflexed view of the rectum. Findings and interventions are described below. Procedure Difficulty:moderate Findings: Terminal Ileum-normal Cecum:normal Ascending Colon: normal Transverse Colon -normal Descending Colon:normal Sigmoid Colon: normal Rectum: Retroflexion with small internal hemorrhoids, grade I, mild erythema in rectum, bx taken Anorectum - normal Colon preparation: [place] Bowel Preparation Scale Right colon; 1-2 Transverse colon: 1-2 Left colon; 1-2 (0 = Unprepared colon segment with mucosa not seen due to solid stool that cannot be cleared. 1 = Portion of mucosa of the colon segment seen, but other areas of the colon segment not well seen due to staining, residual stool and/or opaque liquid. 2 = Minor amount of residual staining, small fragments of stool and/or opaque liquid, but mucosa of colon segment seen well. 3 = Entire mucosa of colon segment seen well with no residual staining, small fragments of stool or opaque liquid) Impression and Post Procedure Diagnosis: Endoscopy Findings: mild gastritis Colonoscopy Findings: internal hemorrhoids mild rectal erythema ? prep artifact Plan: Await Pathology results Repeat Colonoscopy as needed High fiber diet leaflet avoid straining at stool, epsom salts and sitz bath, anusol supps or cream if has objective evidence of GI bleeding then can consider capsule, but there was no blood seen in colon or TI or upper GI Above findings were reviewed with the patient and relevant handouts were provided if indicated.
--- NOTE | 2024-01-04 16:43 | PC.NURSE ---
Patient arrived to the unit from PACU with blood still transfusing, pump reading stated 153ml to be infused. Transfusion started at 1150 after confirming with nurse in preop that it was ok to send patient to them with blood transfusing. At 1550 patient was transfer back to the room with 153ml left to be infused and total time of infusion was over 4hrs. Transfusion was stopped and 153ml of blood wasted. notified and second unit of blood started.
--- NOTE | 2024-01-04 18:48 | MHC.RECOVSUP ---
? Reason for consult Recovery support o Current location: 353-1 o Identified substance use concern: Heroin - Support ? Intervention: o Community resources provided o Harm reduction discussion ? Plan: o Patient to follow up with [facility] after discharge ? Additional information: Met with patient and we talked about Recovery and Harm reduction.. We talked about different pathways to recovery.. He stated that he needs a therapist That he always depressed. patient stated that he has to do something..
[2024-01-04] MEDS: Mirtazapine 7.5 MG TABLET PO (21:41)
[2024-01-04] MEDS: Gabapentin 300 MG CAPSULE PO (21:41)
[2024-01-04] MEDS: Baclofen 10 MG TABLET PO (21:41)
[2024-01-05 02:37] VITALS: BP 133/77; PULSE 50; RESP 16; TEMP 36.5; O2SAT 100
[2024-01-05] MEDS: Morphine Sulfate 4 MG/ML CARTRIDGE 2 MG IVPUSH ×5 (02:39→21:27)
[2024-01-05] MEDS: Lactated Ringers 1,000 ML 100 ML IVCONT (02:40)
[2024-01-05 06:09] LABS: Glucose, Whole Blood 51 mg/dL (60-115)
[2024-01-05 07:17] VITALS: BP 132/65; PULSE 65; RESP 16; TEMP 36.4; O2SAT 97
[2024-01-05] MEDS: Ibuprofen 400 MG TABLET PO ×2 (08:27→15:23)
[2024-01-05] MEDS: FLUoxetine HCl 20 MG CAPSULE 40 MG PO (08:27)
[2024-01-05] MEDS: Gabapentin 600 MG TABLET PO ×3 (08:27→21:27)
[2024-01-05] MEDS: methADONE HCl 20 MG/2 ML ORAL.CONC 140 MG PO (08:28)
[2024-01-05] MEDS: clonazePAM 1 MG TABLET PO ×3 (08:28→21:27)
[2024-01-05] MEDS: Collagenase Clostridium Hist. 30 GM TUBE 1 APPL TOPICAL (08:29)
--- NOTE | 2024-01-05 09:07 | P.PNIM_ITS ---
Subjective Subjective Date of Service: 01/05/24 Interval History: f/u on cellulis of r forearm denies SI, H/H lower, no active bleed Physical Exam 2 Vital Signs: Vital Signs: Last Vital Signs Temp 97.6 F 01/05/24 07:17 Pulse 65 01/05/24 07:17 Resp 16 01/05/24 07:17 BP 132/65 01/05/24 07:17 Pulse Ox 97 01/05/24 07:17 O2 Del Method Room Air 01/05/24 07:17 BMI result Body Mass Index 25.8 Const: General: cooperative Objective Data Active Medications Acetaminophen (Acetaminophen 325 Mg Tablet) 975 mg PO QSHIFT [facility] Last Admin: 01/05/24 08:27 Dose: Not Given Documented By: JOSE L Non-Admin Reason: Patient Refused Amoxicillin/Clavulanate Potassium (Amoxicillin/Potassium Clav 875 Mg Tablet) 875 mg PO Q12H [facility] Last Admin: 01/04/24 21:41 Dose: 875 mg Documented By: VIKAS Baclofen (Baclofen 10 Mg Tablet) 10 mg PO BEDTIME [facility] Last Admin: 01/04/24 21:41 Dose: 10 mg Documented By: VIKAS Clonazepam (Clonazepam 1 Mg Tablet) 1 mg PO TID [facility] Last Admin: 01/05/24 08:28 Dose: 1 mg Documented By: JOSE L Collagenase (Collagenase Clostridium Hist. 30 Gm Tube) 1 appl TOPICAL DAILY [facility]; Protocol Last Admin: 01/05/24 08:29 Dose: 1 appl Documented By: JOSE L Doxycycline Monohydrate (Doxycycline Monohydrate 100 Mg Capsule) 100 mg PO Q12H [facility] Last Admin: 01/04/24 21:41 Dose: 100 mg Documented By: VIKAS Enoxaparin Sodium (Enoxaparin Sodium 40 Mg/0.4 Ml Syringe) 40 mg SUBCUT Q24H [facility] Last Admin: 01/04/24 11:55 Dose: Not Given Documented By: SUNIL Non-Admin Reason: scheduled for procedure Fluoxetine HCl (Fluoxetine Hcl 20 Mg Capsule) 40 mg PO DAILY [facility] Last Admin: 01/05/24 08:27 Dose: 40 mg Documented By: JOSE L Gabapentin (Gabapentin 600 Mg Tablet) 600 mg PO TID [facility] Last Admin: 06/06/24 08:27 Dose: 600 mg Documented By: JOSE L Gabapentin (Gabapentin 300 Mg Capsule) 300 mg PO BEDTIME [facility] Last Admin: 01/04/24 21:41 Dose: 300 mg Documented By: VIKAS Dextrose (D5w) 100 mls @ 0 mls/hr IV .Q0M PRN PRN Reason: Per Protocol Last Infusion: 01/04/24 16:24 Dose: Infused Documented By: BROViral Ibuprofen (Ibuprofen 400 Mg Tablet) 400 mg PO QSHIFT [facility] Last Admin: 01/05/24 08:27 Dose: 400 mg Documented By: JOSE L Methadone HCl (Methadone Hcl 20 Mg/2 Ml Oral.Conc) 140 mg PO DAILY [facility] Last Admin: 01/05/24 08:28 Dose: 140 mg Documented By: JOSE L Mirtazapine (Mirtazapine 7.5 Mg Tablet) 7.5 mg PO BEDTIME [facility] Last Admin: 01/04/24 21:41 Dose: 7.5 mg Documented By: VIKAS Morphine Sulfate (Morphine Sulfate 4 Mg/Ml Cartridge) 2 mg IVPUSH Q4H PRN; Protocol PRN Reason: Pain, Severe (Pain Scale 7-10) Last Admin: 01/05/24 08:42 Dose: 2 mg Documented By: JOSE L Nicotine Polacrilex (Nicotine Polacrilex 2 Mg Gum) 2 mg BUCCAL Q2H PRN PRN Reason: Craving Last Admin: 01/03/24 19:50 Dose: 2 mg Documented By: ARMANDO Ondansetron HCl (Ondansetron Hcl 4 Mg/2 Ml Vial) 4 mg IVPUSH Q8H PRN PRN Reason: Nausea and Vomiting Last Admin: 01/04/24 00:44 Dose: 4 mg Documented By: PAULIE Pharmacy Consult (Consult Rx Vancomycin Dosing) 1 each MISCELLANE DAILY PRN PRN Reason: Consult order Quetiapine Fumarate (Quetiapine Fumarate 100 Mg Tablet) 100 mg PO BEDTIME PRN PRN Reason: Sleep Last Admin: 01/02/24 20:30 Dose: 100 mg Documented By: GASPER Sodium Biphosphate/Sodium Phosphate (Sodium Phosphate,Nye-Dibasic 133 Ml Enema) 133 ml [place] ONCE PRN PRN Reason: Consult order Sodium Chloride (0.9 % Sodium Chloride Flush 3 Ml Syringe) 3 ml IVFLUSH QSHIFT [facility] Last Admin: 01/05/24 07:15 Dose: Not Given Documented By: JOSE L Non-Admin Reason: IV Running Labs 01/04/24 08:08 01/04/24 08:07 Labs: Laboratory Results - last 24 hr 01/04/24 01/04/24 01/04/24 08:35 13:34 13:57 POC Glucose 59 L* 51 L* Blood Type O Positive Antibody Screen NEGATIVE Crossmatch See Detail 01/04/24 13:58 POC Glucose 83 Blood Type Antibody Screen Crossmatch Assessment and Plan (1) Abscess of forearm, right: Status: Acute (2) Right radial nerve palsy: Status: Acute Plan A 33 years old male with PMH of drug abuse, recent cellulitis who presented to the hospital with worsening RUE open wounds with associated pain and drainage. Right forearm deep tissue infection with multiple infected ulcers secondary to habitual IV xylazine ingestion into the site evaluated by surgery with no evidence of deep abscess; recommendation: Santyl to the areas or if not available just wet to dry ID recommend PO Doxy+ Augmentin. Stopped Vanco and Zosyn today recent Right wrist drop secondary to radial nerve palsy. was on Velcro splint x 4-6 weeks. improved. IVDU. Cocaine and opiates. continue methadone seen by addition med: Not interested in further treatment or options Acute on chronic anemia, no obvious active bleed, - EGD+ Colonoscopy--mild gastritis and non-bleeding internal hemorrhoid -transfused 2 units--check CBC Mood disorder. Continue mood stabilizers depresson: Denying SI, and doesn't want Psych admission Code status: Full DVT prophylaxis: Early ambulation need for inpatient: r right arm cellulitis and deep tissue infection for treatment with IV antibiotics pending final cultures and surgical evaluation Dispo: home Quality Stroke Does the patient have a stroke diagnosis?: No VTE Prior VTE?: No VTE Risk Level:: Medical - moderate - high VTE Device Contraindication: Treatment Not Indicated VTE Drug Contraindication: N/A - Med Ordered
[2024-01-05] MEDS: Amoxicillin/Potassium Clav 875 MG TABLET PO ×2 (09:09→21:27)
[2024-01-05] MEDS: Doxycycline Monohydrate 100 MG CAPSULE PO ×2 (09:09→21:27)
--- NOTE | 2024-01-05 09:13 | HO.POSTANES ---
Post Anesthesia Evaluation Post Anesthesia Evaluation Date of Service: 01/05/24 Vital Signs: Vital Signs Temp Pulse Resp BP Pulse Ox O2 Del Method 01/05/24 07:17 97.6 F 65 16 132/65 97 Room Air 01/05/24 02:37 97.7 F 50 16 133/77 100 Room Air Anesthesia: Monitored Mental Status: Awake Pain Control: Satisfactory Nausea/Vomiting: None Hydration: Adequate Anesthesia-Related Issues: No Anes. Related Issues
[2024-01-05 09:36] LABS: Hematocrit 28.9 % (42.0-52.0); Hemoglobin 8.5 g/dl (14.0-18.0); Mean Corpuscular HGB Conc 29.4 g/dl (31.0-36.0); Mean Corpuscular Hemoglobin 19.2 pg (27.0-33.0); Mean Corpuscular Volume 65.2 fL (80.0-98.0); Mean Platelet Volume 9.9 fL (9.4-12.4); Platelet Count 480 X10*3/uL (160-400); Red Blood Count 4.43 X10*6/uL (4.60-5.80); Red Cell Distribution Width 21.7 % (11.0-16.0); White Blood Count 7.4 X10*3/uL (4.8-10.8)
[2024-01-05 11:18] VITALS: O2SAT 97
[2024-01-05 15:23] VITALS: BP 131/60; PULSE 50; RESP 18; TEMP 36.6; O2SAT 97
[2024-01-05] MEDS: Nicotine Polacrilex 2 MG GUM BUCCAL (15:23)
[2024-01-05] MEDS: 0.9 % Sodium Chloride Flush 3 ML SYRINGE IVFLUSH ×2 (15:24→21:28)
[2024-01-05 19:22] VITALS: BP 133/60; PULSE 50; RESP 18; TEMP 36.1; O2SAT 97
--- NOTE | 2024-01-05 20:42 | P.PNADD_ITS ---
Subjective Subjective Date of Service: 01/05/24 Reason For Visit: worsening RUE wound, Deep skin infection Interim History: Patient seen in follow up Medically cleared and requesting information on [facility] services Seen by this ghost writer in room 353. Awake, alert, pleasant and engaged in interview. He reports that he does not want to go back home as he knows he will start using again. Discussed options --which are limited due to short period of time medically admitted. ATS level of care most realistic option given that he has been in hospital 4 days. CSS level of care, requires btwn 1-2 weeks (usually the latter). This ghost writer provided patient with information for both CSS and ATS and advised him to start calling facilities while awaiting discharge. Patient agreeable. Review of Systems Acute medical concerns: Yes Medical Review of Systems: unchanged Mental Status Exam Mental Status Exam Patient Appearance: Unkempt Level of Consciousness: Awake and Appropriate Patient Behavior: Appropriate Mood Description: Calm Affect Description: Sad Speech Pattern: Clear Thought Process: Goal Oriented Thought Content: positive for Intact Judgement: Fair Diagnostics Vital Signs (24Hr): Vital Signs - 24 hr 01/05/24 02:37 01/05/24 07:17 01/05/24 11:18 Temperature 97.7 F 97.6 F Pulse Rate 50 65 Respiratory Rate 16 16 Blood Pressure 133/77 132/65 Pulse Oximetry 100 97 97 Oxygen Delivery Method Room Air Room Air Room Air 01/05/24 15:23 01/05/24 19:22 Temperature 97.9 F 97 F Pulse Rate 50 50 Respiratory Rate 18 18 Blood Pressure 131/60 133/60 Pulse Oximetry 97 97 Oxygen Delivery Method Room Air Room Air BMI result Body Mass Index 25.8 Labs 01/05/24 09:01 01/04/24 08:07 Labs: Laboratory Results - last 48 hr 01/04/24 01/04/24 01/04/24 08:07 08:08 08:35 WBC 7.1 RBC 3.46 L Hgb 6.1 L* Hct 21.1 L MCV 61.0 L MCH 17.6 L MCHC 28.9 L RDW 17.7 H Plt Count 396 MPV 10.0 Absolute Nucleated RBC 0.000 Nucleated RBC % (auto) 0.0 Hold Purple Top Creatinine 0.73 Estim Creat Clear Calc 157.0 Estimated GFR > 60 POC Glucose Hold Yellow Top Blood Type O Positive Antibody Screen NEGATIVE Crossmatch See Detail 01/04/24 01/04/24 01/04/24 13:34 13:57 13:58 WBC RBC Hgb Hct MCV MCH MCHC RDW Plt Count MPV Absolute Nucleated RBC Nucleated RBC % (auto) Hold Purple Top Creatinine Estim Creat Clear Calc Estimated GFR POC Glucose 59 L* 51 L* 83 Hold Yellow Top Blood Type Antibody Screen Crossmatch 01/05/24 09:01 WBC 7.4 RBC 4.43 L D Hgb 8.5 L D Hct 28.9 L D MCV 65.2 L MCH 19.2 L MCHC 29.4 L RDW 21.7 H Plt Count 480 H MPV 9.9 Absolute Nucleated RBC 0.000 Nucleated RBC % (auto) 0.0 Hold Purple Top SEE NOTE Creatinine Estim Creat Clear Calc Estimated GFR POC Glucose Hold Yellow Top See Note Blood Type Antibody Screen Crossmatch Imaging Radiology Impressions: ITS Impressions Forearm X-Ray 01/01/24 02:57 IMPRESSION: Soft tissue swelling/injury and gas along the ulnar aspect of the proximal to mid forearm. No acute osseous findings identified. Forearm CT 01/01/24 09:52 IMPRESSION: There is an superficial soft tissue wound of the proximal ulnar aspect of the forearm. The edema and fluid attenuation in the subcutaneous compartment of the forearm is highly suggestive of cellulitis. Also, there are multiple pockets of more intense edema/fluid that exhibit faint peripheral enhancement in the proximal ulnar aspect of the forearm at the margin of the wound and these are suspicious for superficial tissue abscesses. However, there is no deep abscess involving muscles or intermuscular tissue planes, and no evidence of osteomyelitis. Medications Medications Current Medications Acetaminophen (Acetaminophen 325 Mg Tablet) 975 mg PO QSHIFT [facility] Last Admin: 01/05/24 15:13 Dose: Not Given Amoxicillin/Clavulanate Potassium (Amoxicillin/Potassium Clav 875 Mg Tablet) 875 mg PO Q12H [facility] Last Admin: 01/05/24 09:09 Dose: 875 mg Baclofen (Baclofen 10 Mg Tablet) 10 mg PO BEDTIME [facility] Last Admin: 01/04/24 21:41 Dose: 10 mg Clonazepam (Clonazepam 1 Mg Tablet) 1 mg PO TID [facility] Last Admin: 01/05/24 15:23 Dose: 1 mg Collagenase (Collagenase Clostridium Hist. 30 Gm Tube) 1 appl TOPICAL DAILY [facility]; Protocol Last Admin: 01/05/24 08:29 Dose: 1 appl Doxycycline Monohydrate (Doxycycline Monohydrate 100 Mg Capsule) 100 mg PO Q12H [facility] Last Admin: 01/05/24 09:09 Dose: 100 mg Enoxaparin Sodium (Enoxaparin Sodium 40 Mg/0.4 Ml Syringe) 40 mg SUBCUT Q24H [facility] Last Admin: 01/05/24 10:57 Dose: Not Given Fluoxetine HCl (Fluoxetine Hcl 20 Mg Capsule) 40 mg PO DAILY [facility] Last Admin: 01/05/24 08:27 Dose: 40 mg Gabapentin (Gabapentin 600 Mg Tablet) 600 mg PO TID [facility] Last Admin: 01/05/24 15:23 Dose: 600 mg Gabapentin (Gabapentin 300 Mg Capsule) 300 mg PO BEDTIME [facility] Last Admin: 01/04/24 21:41 Dose: 300 mg Dextrose (D5w) 100 mls @ 0 mls/hr IV .Q0M PRN PRN Reason: Per Protocol Last Infusion: 01/04/24 16:24 Dose: Infused [facility]upro[facility] ([facility] 400 Mg Tablet) [facility] Admin: 01/05/24 15:23 Dose: 400 mg Methadone HCl (Methadone Hcl 20 Mg/2 Ml Oral.Conc) 140 mg PO DAILY [facility] Last Admin: 01/05/24 08:28 Dose: 140 mg Mirtazapine (Mirtazapine 7.5 Mg Tablet) 7.5 mg PO BEDTIME [facility] Last Admin: 01/04/24 21:41 Dose: 7.5 mg Morphine Sulfate (Morphine Sulfate 4 Mg/Ml Cartridge) 2 mg IVPUSH Q4H PRN; Protocol PRN Reason: Pain, Severe (Pain Scale 7-10) Last Admin: 01/05/24 17:39 Dose: 2 mg Nicotine Polacrilex (Nicotine Polacrilex 2 Mg Gum) 2 mg BUCCAL Q2H PRN PRN Reason: Craving Last Admin: 01/05/24 15:23 Dose: 2 mg Ondansetron HCl (Ondansetron Hcl 4 Mg/2 Ml Vial) 4 mg IVPUSH Q8H PRN PRN Reason: Nausea and Vomiting Last Admin: 01/04/24 00:44 Dose: 4 mg Pharmacy Consult (Consult Rx Vancomycin Dosing) 1 each MISCELLANE DAILY PRN PRN Reason: Consult order Quetiapine Fumarate (Quetiapine Fumarate 100 Mg Tablet) 100 mg PO BEDTIME PRN PRN Reason: Sleep Last Admin: 01/02/24 20:30 Dose: 100 mg Sodium Biphosphate/Sodium Phosphate (Sodium Phosphate,[place]-Dibasic 133 Ml Enema) 133 ml ME ONCE PRN PRN Reason: Consult order Sodium Chloride (0.9 % Sodium Chloride Flush 3 Ml Syringe) 3 ml IVFLUSH QSHIFT [facility] Last Admin: 01/05/24 15:24 Dose: 3 ml Allergies Allergies Allergy/AdvReac Type Severity Reaction Status Date / Time Pertussis Vaccines Allergy Mild HIVES Verified 01/01/24 02:18 [PERTUSSIS VACCINES] Assessment & Plan Assessment & Plan (1) Opioid use disorder: Status: Acute Code(s): F11.90 - Opioid use, unspecified, uncomplicated Assessment and Plan: * patient unable to find placement after calling facilities * expressing discouragement and anxiety about having to return home --verbalizing that structured facility is helpful to him in abstaining from use * concerned about his ongoing use and the chronic wounds on his forearms from xylazine * case discussed with CM and Dr. Johnson (per patient request) Total time managing care of this patient today __40__ minutes.
[2024-01-05] MEDS: Gabapentin 300 MG CAPSULE PO (21:27)
[2024-01-05] MEDS: Mirtazapine 7.5 MG TABLET PO (21:27)
[2024-01-05] MEDS: Baclofen 10 MG TABLET PO (21:27)
[2024-01-06 02:56] VITALS: BP 131/77; PULSE 52; RESP 18; TEMP 36.1; O2SAT 99
[2024-01-06] MEDS: Morphine Sulfate 4 MG/ML CARTRIDGE 2 MG IVPUSH ×2 (03:08→08:08)
[2024-01-06 07:23] VITALS: BP 132/70; PULSE 53; RESP 12; TEMP 36; O2SAT 97
[2024-01-06] MEDS: Ibuprofen 400 MG TABLET PO (08:08)
[2024-01-06] MEDS: FLUoxetine HCl 20 MG CAPSULE 40 MG PO (08:09)
[2024-01-06] MEDS: methADONE HCl 20 MG/2 ML ORAL.CONC 140 MG PO (08:09)
[2024-01-06] MEDS: 0.9 % Sodium Chloride Flush 3 ML SYRINGE IVFLUSH ×2 (08:09→14:33)
[2024-01-06] MEDS: Gabapentin 600 MG TABLET PO ×2 (08:09→14:33)
[2024-01-06] MEDS: clonazePAM 1 MG TABLET PO ×2 (08:09→14:33)
[2024-01-06] MEDS: Collagenase Clostridium Hist. 30 GM TUBE 1 APPL TOPICAL (08:09)
--- NOTE | 2024-01-06 08:31 | MHC.CM.PN ---
EMR REVIEWED, PT SEEN BY [facility], PT NOW [facility] BED SEARCH, CM WILL FOLLOW FOR TRANSPORT IF NOT PLACED AT [facility].
[2024-01-06] MEDS: Amoxicillin/Potassium Clav 875 MG TABLET PO (09:30)
[2024-01-06] MEDS: Doxycycline Monohydrate 100 MG CAPSULE PO (09:30)
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
[2024-01-06] MEDS: Nicotine Polacrilex 2 MG GUM BUCCAL (10:45)
[2024-01-06] MEDS: Omeprazole 20 MG CAPSULE.DR PO (11:50)
[2024-01-06 11:57] VITALS: O2SAT 97
[2024-01-06] MEDS: oxyCODONE HCl Immed Release 5 MG TABLET PO (14:33)
[2024-01-06 15:46] VITALS: BP 136/79; PULSE 56; RESP 20; TEMP 36; O2SAT 98
== END 2024-01-06 15:28 | DRG 383 ==
LOC: HO.ED 09:10 → HO.EDOVER 11:00 → HO.S3 20:09
PROVIDERS: Internal Medicine; Internal Medicine Gastroenterology; Admitting Provider Student in an Organized Health Care Education/Training Program; Emergency Provider Emergency Medicine; PCP Internal Medicine; Visit Provider Internal Medicine
PROC: 0DB98ZX Excision of Duodenum, Via Natural or Artificial Opening Endoscopic, Diagnostic (ICD-10-PCS; principal; 2024-01-04 14:00)
DX: L02.413 Cutaneous abscess of right upper limb (principal); K29.71 Gastritis, unspecified, with bleeding; D50.9 Iron deficiency anemia, unspecified; F11.20 Opioid dependence, uncomplicated; F17.210 Nicotine dependence, cigarettes, uncomplicated; F14.10 Cocaine abuse, uncomplicated; F32.A Depression, unspecified; K64.8 Other hemorrhoids; G56.31 Lesion of radial nerve, right upper limb; L98.499 Non-pressure chronic ulcer of skin of other sites with unspecified severity; F19.10 Other psychoactive substance abuse, uncomplicated; L03.114 Cellulitis of left upper limb; Z71.6 Tobacco abuse counseling; Z79.899 Other long term (current) drug therapy
CPT/HCPCS: 36415; 73090; 73201; 80048; 80053; 80202; 80307; 82565; 82607; 82728; 82746; 82947; 83540; 83605; 84443; 85025; 85027; 86803; 86850; 86900; 86901; 86923; 87040; 87389; 88305; 88313; 88342; 93005; 97161; 99285; J1650; J2270; J2405; J2543; J2704; J3370; J3371; J7120; P9016; Q9967; S9485

== ENCOUNTER 2024-01-01 10:14 | Outpatient (BNV) | payer OTHER, SELFPAY | END 2024-01-03 10:12 | PROVIDERS: Admitting Provider Student in an Organized Health Care Education/Training Program; Emergency Provider Emergency Medicine; PCP Internal Medicine; Visit Provider Internal Medicine Cardiovascular Disease | DX: R00.0 Tachycardia, unspecified (principal) | CPT/HCPCS: 93010 ==

== ENCOUNTER → 2024-01-01 10:14 | Outpatient (BNV) | payer OTHER, SELFPAY | PROVIDERS: Admitting Provider Student in an Organized Health Care Education/Training Program; Emergency Provider Emergency Medicine; PCP Internal Medicine; Visit Provider Internal Medicine Gastroenterology | DX: D50.9 Iron deficiency anemia, unspecified (principal); K29.70 Gastritis, unspecified, without bleeding; K62.5 Hemorrhage of anus and rectum; K64.0 First degree hemorrhoids | CPT/HCPCS: 43239; 45380; 99232 ==

== ENCOUNTER → 2024-01-01 10:14 | Outpatient (BNV) | payer OTHER, SELFPAY | PROVIDERS: Admitting Provider Student in an Organized Health Care Education/Training Program; Emergency Provider Emergency Medicine; PCP Internal Medicine; Visit Provider Nurse Practitioner Psychiatric/Mental Health | DX: F11.90 Opioid use, unspecified, uncomplicated (principal) | CPT/HCPCS: 99231; 99232 ==

== ENCOUNTER → 2024-01-01 10:14 | Outpatient (BNV) | payer OTHER, SELFPAY | PROVIDERS: Admitting Provider Student in an Organized Health Care Education/Training Program; Emergency Provider Emergency Medicine; Visit Provider Student in an Organized Health Care Education/Training Program | DX: F11.90 Opioid use, unspecified, uncomplicated (principal) | CPT/HCPCS: 99223; 99232; 99239 ==

== ENCOUNTER → 2024-01-01 10:14 | Outpatient (BNV) | payer OTHER, SELFPAY | PROVIDERS: Admitting Provider Student in an Organized Health Care Education/Training Program; Emergency Provider Emergency Medicine; PCP Internal Medicine; Visit Provider Internal Medicine | DX: L02.413 Cutaneous abscess of right upper limb (principal); F19.10 Other psychoactive substance abuse, uncomplicated; L03.114 Cellulitis of left upper limb | CPT/HCPCS: 99222 ==

== ENCOUNTER → 2024-01-01 10:14 | Outpatient (BNV) | payer OTHER, SELFPAY | PROVIDERS: Admitting Provider Student in an Organized Health Care Education/Training Program; Emergency Provider Emergency Medicine; Visit Provider Surgery | DX: L98.499 Non-pressure chronic ulcer of skin of other sites with unspecified severity (principal) | CPT/HCPCS: 99222; 99231 ==

== ENCOUNTER 2024-01-06 15:48 | Inpatient (IN) | payer OTHER, SELFPAY ==
[2024-01-06 16:20] VITALS: BP 120/74; PULSE 80; RESP 18; TEMP 36.9; O2SAT 96
[2024-01-06 16:45] VITALS: BMI 28.8
[2024-01-06] MEDS: Nicotine Polacrilex 2 MG GUM 4 MG BUCCAL ×2 (16:54→20:55)
[2024-01-06] MEDS: Collagenase Clostridium Hist. 30 GM TUBE 1 APPL TOPICAL (18:24)
--- NOTE | 2024-01-06 18:54 | PC.NURSE ---
Andrey was admitted to [facility] at 1615 from [place] [id number] on CV for treatment of ptsd and polysubstance abuse. Pt was inpt on [facility] for infected wound right arm and anemia. He recently relapsed on heroin and cocaine after a friend completed suicide. When being dc from pt reported si with a plan to overdose on street drugs and was sent to [facility]. He is alert, fully oriented, calm, pleasant and cooperative. Mood is depressed. Affect is sad He denies hallucinations and shows no overt psychosis Thought process is linear. Hed denies ideation, plan or intent to harm self or others. Appetite is good with 15 lb weight gain.? Sleep is interupted by uncontrolled pain. Focus is good. Medical Issues?include right arm wound, asthma Physical complaint? Goal of admission is to goet a referral to IOP and new outpt psychiatrist He is on q 15 minute Safety Checks
[2024-01-06 20:00] VITALS: BP 113/70; PULSE 52; RESP 16; TEMP 37.2; O2SAT 98
[2024-01-06] MEDS: Mirtazapine 7.5 MG TABLET PO (20:19)
[2024-01-06] MEDS: Doxycycline Monohydrate 100 MG CAPSULE PO (20:19)
[2024-01-06] MEDS: Gabapentin 600 MG TABLET PO (20:19)
[2024-01-06] MEDS: Baclofen 10 MG TABLET PO (20:19)
[2024-01-06] MEDS: clonazePAM 1 MG TABLET PO (20:19)
[2024-01-06] MEDS: Amoxicillin/Potassium Clav 875 MG TABLET PO (20:20)
[2024-01-06] MEDS: Gabapentin 300 MG CAPSULE PO (20:20)
[2024-01-06] MEDS: oxyCODONE HCl Immed Release 5 MG TABLET PO (20:20)
[2024-01-07] MEDS: QUEtiapine Fumarate 100 MG TABLET PO (01:20)
[2024-01-07] MEDS: oxyCODONE HCl Immed Release 5 MG TABLET PO ×3 (04:53→18:55)
[2024-01-07] MEDS: Nicotine Polacrilex 2 MG GUM 4 MG BUCCAL ×3 (04:53→13:22)
[2024-01-07 07:41] VITALS: BP 110/66; PULSE 60; RESP 14; TEMP 36.9; O2SAT 96
[2024-01-07] MEDS: Amoxicillin/Potassium Clav 875 MG TABLET PO ×2 (09:11→20:45)
[2024-01-07] MEDS: methADONE HCl 20 MG/2 ML ORAL.CONC 140 MG PO (09:11)
[2024-01-07] MEDS: FLUoxetine HCl 20 MG CAPSULE 40 MG PO (09:11)
[2024-01-07] MEDS: Gabapentin 600 MG TABLET PO ×3 (09:11→20:45)
[2024-01-07] MEDS: Collagenase Clostridium Hist. 30 GM TUBE 1 APPL TOPICAL (09:11)
[2024-01-07] MEDS: Nicotine 21 MG PATCH.TD24 TRANSDERMA (09:11)
[2024-01-07] MEDS: Omeprazole 20 MG CAPSULE.DR PO (09:11)
[2024-01-07] MEDS: Doxycycline Monohydrate 100 MG CAPSULE PO ×2 (09:11→20:45)
[2024-01-07] MEDS: clonazePAM 1 MG TABLET PO ×3 (09:11→20:45)
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
[2024-01-07] MEDS: Ibuprofen 600 MG TABLET PO ×2 (16:04→20:45)
[2024-01-07 20:00] VITALS: BP 112/67; PULSE 58; RESP 16; TEMP 36.3; O2SAT 97
[2024-01-07] MEDS: Baclofen 10 MG TABLET PO (20:45)
[2024-01-07] MEDS: Mirtazapine 7.5 MG TABLET PO (20:45)
[2024-01-07] MEDS: Gabapentin 300 MG CAPSULE PO (20:45)
[2024-01-08] MEDS: oxyCODONE HCl Immed Release 5 MG TABLET PO ×5 (00:22→21:35)
[2024-01-08] MEDS: hydrOXYzine HCL 50 MG TABLET PO ×3 (00:22→21:44)
[2024-01-08] MEDS: Omeprazole 20 MG CAPSULE.DR PO (05:48)
[2024-01-08] MEDS: Nicotine Polacrilex 2 MG GUM 4 MG BUCCAL ×5 (05:49→21:44)
[2024-01-08 07:30] VITALS: BP 100/56; PULSE 51; RESP 14; TEMP 36.4; O2SAT 96
[2024-01-08] MEDS: methADONE HCl 20 MG/2 ML ORAL.CONC 140 MG PO (08:27)
[2024-01-08] MEDS: Ibuprofen 600 MG TABLET PO ×4 (08:27→21:36)
[2024-01-08] MEDS: Nicotine 21 MG PATCH.TD24 TRANSDERMA (08:28)
[2024-01-08] MEDS: FLUoxetine HCl 20 MG CAPSULE 40 MG PO (08:28)
[2024-01-08] MEDS: Gabapentin 600 MG TABLET PO ×3 (08:28→21:36)
[2024-01-08] MEDS: clonazePAM 1 MG TABLET PO ×3 (08:28→21:36)
[2024-01-08] MEDS: Amoxicillin/Potassium Clav 875 MG TABLET PO ×2 (08:47→21:35)
[2024-01-08] MEDS: Doxycycline Monohydrate 100 MG CAPSULE PO ×2 (08:47→21:36)
--- NOTE | 2024-01-08 15:29 | HO.PSYCHPN ---
Subjective Subjective Date of Service: 01/08/24 Reason For Visit: crisis Interim History: no issues. feeling well. mother visited. per staff, bright, visible, eating. anx /. pain meds effective. no issues. Mental Status Exam Mental Status Exam Narrative: adequately dressed and groomed. lesion on left forearm. cooperative. no PMA/PMR. speech nml rate, amount, loudness, tone, latency. thoughts linear and logical. affect flexible, normo-intense, non-labile. mood OK. no SI/SIBI/HI/AVH expressed. Diagnostics Vital Signs (24Hr): Vital Signs - 24 hr 01/07/24 20:00 01/08/24 07:30 Temperature 97.4 F 97.6 F Pulse Rate 58 51 Respiratory Rate 16 14 Blood Pressure 112/67 100/56 L Pulse Oximetry 97 96 Oxygen Delivery Method Room Air Room Air BMI result Body Mass Index 28.8 Medications Medications Current Medications Al Hydroxide/Mg Hydroxide (Magnesium Hydrox/Alum Hydrox 30 Ml Oral.Susp) 30 ml PO Q6H PRN PRN Reason: Heartburn/Nausea Amoxicillin/Clavulanate Potassium (Amoxicillin/Potassium Clav 875 Mg Tablet) 875 mg PO Q12H [facility] Last Admin: 01/08/24 08:47 Dose: 875 mg Baclofen (Baclofen 10 Mg Tablet) 10 mg PO BEDTIME [facility] Last Admin: 01/07/24 20:45 Dose: 10 mg Clonazepam (Clonazepam 1 Mg Tablet) 1 mg PO TID [facility] Last Admin: 01/08/24 14:01 Dose: 1 mg Collagenase (Collagenase Clostridium Hist. 30 Gm Tube) 1 appl TOPICAL DAILY [facility]; Protocol Last Admin: 01/08/24 09:12 Dose: Not Given Doxycycline Monohydrate (Doxycycline Monohydrate 100 Mg Capsule) 100 mg PO Q12H [facility] Last Admin: 01/08/24 08:47 Dose: 100 mg Fluoxetine HCl (Fluoxetine Hcl 20 Mg Capsule) 40 mg PO DAILY [facility] Last Admin: 01/08/24 08:28 Dose: 40 mg Gabapentin (Gabapentin 600 Mg Tablet) 600 mg PO TID [facility] Last Admin: 01/08/24 14:01 Dose: 600 mg Gabapentin (Gabapentin 300 Mg Capsule) 300 mg PO BEDTIME [facility] Last Admin: 01/07/24 20:45 Dose: 300 mg Hydrocortisone (Hydrocortisone 2.5 % Rectal Cr 30 Gm Tube) 1 appl [place] BEDTIME [facility] Last Admin: 01/07/24 20:51 Dose: Not Given Hydroxyzine HCl (Hydroxyzine Hcl 50 Mg Tablet) 50 mg PO Q4H PRN PRN Reason: Anxiety Last Admin: 01/08/24 08:47 Dose: 50 mg Ibuprofen (Ibuprofen 600 Mg Tablet) 600 mg PO QID [facility] Last Admin: 01/08/24 14:01 Dose: 600 mg Magnesium Hydroxide (Milk Of Magnesia 30 Ml Oral.Susp) 30 ml PO DAILY PRN PRN Reason: Constipation Methadone HCl (Methadone Hcl 20 Mg/2 Ml Oral.Conc) 140 mg PO DAILY [facility] Last Admin: 01/08/24 08:27 Dose: 140 mg Mirtazapine (Mirtazapine 7.5 Mg Tablet) 7.5 mg PO BEDTIME [facility] Last Admin: 01/07/24 20:45 Dose: 7.5 mg Nicotine (Nicotine 21 Mg Patch.Td24) 21 mg TRANSDERMA DAILY [facility] Last Admin: 01/08/24 08:28 Dose: 21 mg Nicotine Polacrilex (Nicotine Polacrilex 2 Mg Gum) 4 mg BUCCAL Q2H PRN PRN Reason: Nicotine Cravings Last Admin: 01/08/24 11:29 Dose: 4 mg Omeprazole (Omeprazole 20 Mg Capsule.Dr) 20 mg PO DAILY@0630 [facility] Last Admin: 01/08/24 05:48 Dose: 20 mg Oxycodone HCl (Oxycodone Hcl Immed Release 5 Mg Tablet) 5 mg PO Q4H PRN PRN Reason: Pain, Severe (Pain Scale 7-10) Last Admin: 01/08/24 11:29 Dose: 5 mg Quetiapine Fumarate (Quetiapine Fumarate 100 Mg Tablet) 100 mg PO BEDTIME PRN PRN Reason: Sleep Last Admin: 01/07/24 01:20 Dose: 100 mg Trazodone HCl (Trazodone Hcl 50 Mg Tablet) 50 mg PO BEDTIME MRX1 PRN PRN Reason: Insomnia Allergies Allergies Allergy/AdvReac Type Severity Reaction Status Date / Time Pertussis Vaccines Allergy Mild HIVES Verified 01/01/24 02:18 [PERTUSSIS VACCINES] Assessment & Plan Assessment & Plan (1) Polysubstance abuse: Status: Acute Code(s): F19.10 - Other psychoactive substance abuse, uncomplicated (2) Mood disorder: Status: Acute Code(s): F39 - Unspecified mood [affective] disorder Plan 01/06: continue/restart outpt med regimen. refer for therapy and IOP/PHP. 01/07: feeling well. pain managed with increased oxycodone availability. continue current mgmt. Reason for continued inpatient stay Substantial Risk for: inability to function Time Spent With Patient Time: Total time managing care of this patient today ____ minutes.
[2024-01-08] MEDS: Collagenase Clostridium Hist. 30 GM TUBE 1 APPL TOPICAL (17:18)
[2024-01-08 20:11] VITALS: BP 93/54; PULSE 55; RESP 16; TEMP 36.3; O2SAT 95
--- NOTE | 2024-01-08 20:42 | PC.NURSE ---
Dsg change done on Reg[place] on 01/08/24. Wound looks well approximated, some yellow drainage but non odorous. Pt tolerated dsg change well. PRN pain medication taken prior to dsg change with good affect.
[2024-01-08] MEDS: Baclofen 10 MG TABLET PO (21:35)
[2024-01-08] MEDS: Mirtazapine 7.5 MG TABLET PO (21:36)
[2024-01-08] MEDS: Gabapentin 300 MG CAPSULE PO (21:36)
[2024-01-08] MEDS: QUEtiapine Fumarate 100 MG TABLET PO (21:44)
[2024-01-09] MEDS: traZODone HCL 50 MG TABLET PO (00:26)
[2024-01-09] MEDS: Omeprazole 20 MG CAPSULE.DR PO (05:35)
[2024-01-09] MEDS: Nicotine Polacrilex 2 MG GUM 4 MG BUCCAL ×3 (05:35→16:32)
[2024-01-09] MEDS: oxyCODONE HCl Immed Release 5 MG TABLET PO ×4 (05:35→21:34)
[2024-01-09 08:00] VITALS: BP 114/85; PULSE 70; RESP 16; TEMP 36.8; O2SAT 97
[2024-01-09] MEDS: methADONE HCl 20 MG/2 ML ORAL.CONC 140 MG PO (08:21)
[2024-01-09] MEDS: Nicotine 21 MG PATCH.TD24 TRANSDERMA (08:21)
[2024-01-09] MEDS: Amoxicillin/Potassium Clav 875 MG TABLET PO ×2 (08:22→21:34)
[2024-01-09] MEDS: Ibuprofen 600 MG TABLET PO ×4 (08:22→21:34)
[2024-01-09] MEDS: Collagenase Clostridium Hist. 30 GM TUBE 1 APPL TOPICAL (08:23)
[2024-01-09] MEDS: clonazePAM 1 MG TABLET PO ×3 (08:23→21:34)
[2024-01-09] MEDS: Gabapentin 600 MG TABLET PO ×3 (08:23→21:33)
[2024-01-09] MEDS: Doxycycline Monohydrate 100 MG CAPSULE PO ×2 (08:23→21:34)
[2024-01-09] MEDS: FLUoxetine HCl 20 MG CAPSULE 40 MG PO (08:23)
--- NOTE | 2024-01-09 11:07 | HO.PSYCHPN ---
Subjective Subjective Date of Service: 01/09/24 Reason For Visit: crisis Subjective Notes: Conditional Voluntary Interim History: Reviewed with Dr. Johnson. Attending groups. storage brine worker, Maria T, present. Pt reports feeling good today; pt stated, I'm not feeling depressed. I always have a little bit of anxiety. I came here because I wanted a couple more days of sobriety. When I left here last time, I was good for week and a half then I relapsed because my friend . Pt reports he is not interested in going to a program and just wants IOP and a therapist . Pt reports he did not follow up with his IOP or therapist appointments that were set up during his last admission on M3. We discussed possible Section 35, pt stated, if I want to use then I'm going to use in a program. I've been to detox 15-16 times. It's not going to stop me from using. The last time I was Section 35'd I was there for 45 days . pt denies SI/HI/VH/AH. T/W spoke to pt's mother, Kelsea,via phone today, who reported pt is allowed to return home after discharge. She reported concerns of pt's substance use. Pt stated, I tried sectioning him a year ago. I don't sleep at night unless he is in a program. I have thought about filing on him again. I want him to get better. I'd rather him get the help than go to his . Medication Compliance: Yes Side effects from medications: No Attending Groups: Yes Review of Systems Constitutional: Reports as per HPI Eyes: Reports as per HPI Reports as per HPI Cardiovascular: Reports as per HPI Respiratory: Reports as per HPI Gastrointestinal: Reports as per HPI Genitourinary: Reports as per HPI Musculoskeletal: Reports as per HPI Skin/Breast: Reports as per HPI Reports as per HPI Psychiatric: Reports as per HPI Endocrine: Reports as per HPI Hematologic/Lymphatic: Reports as per HPI Allergic/Immunologic: Reports as per HPI Mental Status Exam Mental Status Exam Narrative: Pt is alert and oriented; behavior is cooperative, friendly and calm; dressed in casual attire; mood is described as good ; eye contact appropriate; Speech is normal rate, volume and not pressured; thought process is organized; Thought content is on tx; otherwise pertinent to relevant topics and without any delusional content, paranoid ideations or grandiosity; denies SI/HI/VH/AH. Diagnostics Vital Signs (24Hr): Vital Signs - 24 hr 01/08/24 20:11 01/09/24 08:00 Temperature 97.4 F 98.2 F Pulse Rate 55 70 Respiratory Rate 16 16 Blood Pressure 93/54 L 114/85 Pulse Oximetry 95 97 Oxygen Delivery Method Room Air Room Air BMI result Body Mass Index 28.8 Medications Medications Current Medications Al Hydroxide/Mg Hydroxide (Magnesium Hydrox/Alum Hydrox 30 Ml Oral.Susp) 30 ml PO Q6H PRN PRN Reason: Heartburn/Nausea Amoxicillin/Clavulanate Potassium (Amoxicillin/Potassium Clav 875 Mg Tablet) 875 mg PO Q12H [facility] Last Admin: 01/09/24 08:22 Dose: 875 mg Baclofen (Baclofen 10 Mg Tablet) 10 mg PO BEDTIME [facility] Last Admin: 01/08/24 21:35 Dose: 10 mg Clonazepam (Clonazepam 1 Mg Tablet) 1 mg PO TID [facility] Last Admin: 01/09/24 08:23 Dose: 1 mg Collagenase (Collagenase Clostridium Hist. 30 Gm Tube) 1 appl TOPICAL DAILY [facility]; Protocol Last Admin: 01/09/24 08:23 Dose: 1 appl Doxycycline Monohydrate (Doxycycline Monohydrate 100 Mg Capsule) 100 mg PO Q12H [facility] Last Admin: 01/09/24 08:23 Dose: 100 mg Fluoxetine HCl (Fluoxetine Hcl 20 Mg Capsule) 40 mg PO DAILY [facility] Last Admin: 01/09/24 08:23 Dose: 40 mg Gabapentin (Gabapentin 600 Mg Tablet) 600 mg PO TID [facility] Last Admin: 01/09/24 08:23 Dose: 600 mg Gabapentin (Gabapentin 300 Mg Capsule) 300 mg PO BEDTIME [facility] Last Admin: 01/08/24 21:36 Dose: 300 mg Hydrocortisone (Hydrocortisone 2.5 % Rectal Cr 30 Gm Tube) 1 appl SD BEDTIME [facility] Last Admin: 01/08/24 22:29 Dose: Not Given Hydroxyzine HCl (Hydroxyzine Hcl 50 Mg Tablet) 50 mg PO Q4H PRN PRN Reason: Anxiety Last Admin: 01/08/24 21:44 Dose: 50 mg Ibuprofen (Ibuprofen 600 Mg Tablet) 600 mg PO QID [facility] Last Admin: 01/09/24 08:22 Dose: 600 mg Magnesium Hydroxide (Milk Of Magnesia 30 Ml Oral.Susp) 30 ml PO DAILY PRN PRN Reason: Constipation Methadone HCl (Methadone Hcl 20 Mg/2 Ml Oral.Conc) 140 mg PO DAILY [facility] Last Admin: 01/09/24 08:21 Dose: 140 mg Mirtazapine (Mirtazapine 7.5 Mg Tablet) 7.5 mg PO BEDTIME [facility] Last Admin: 01/08/24 21:36 Dose: 7.5 mg Nicotine (Nicotine 21 Mg Patch.Td24) 21 mg TRANSDERMA DAILY [facility] Last Admin: 01/09/24 08:21 Dose: 21 mg Nicotine Polacrilex (Nicotine Polacrilex 2 Mg Gum) 4 mg BUCCAL Q2H PRN PRN Reason: Nicotine Cravings Last Admin: 01/09/24 08:46 Dose: 4 mg Omeprazole (Omeprazole 20 Mg Capsule.Dr) 20 mg PO DAILY@0630 [facility] Last Admin: 01/09/24 05:35 Dose: 20 mg Oxycodone HCl (Oxycodone Hcl Immed Release 5 Mg Tablet) 5 mg PO Q4H PRN PRN Reason: Pain, Severe (Pain Scale 7-10) Last Admin: 01/09/24 05:35 Dose: 5 mg Quetiapine Fumarate (Quetiapine Fumarate 100 Mg Tablet) 100 mg PO BEDTIME PRN PRN Reason: Sleep Last Admin: 01/08/24 21:44 Dose: 100 mg Trazodone HCl (Trazodone Hcl 50 Mg Tablet) 50 mg PO BEDTIME MRX1 PRN PRN Reason: Insomnia Last Admin: 01/09/24 00:26 Dose: 50 mg Allergies Allergies Allergy/AdvReac Type Severity Reaction Status Date / Time Pertussis Vaccines Allergy Mild HIVES Verified 01/01/24 02:18 [PERTUSSIS VACCINES] Assessment & Plan Assessment & Plan (1) Polysubstance abuse: Status: Acute Code(s): F19.10 - Other psychoactive substance abuse, uncomplicated (2) Mood disorder: Status: Acute Code(s): F39 - Unspecified mood [affective] disorder Plan 01/06: continue/restart outpt med regimen. refer for therapy and IOP/PHP. 01/07: feeling well. pain managed with increased oxycodone availability. continue current mgmt. 01/08: Attending groups. storage brine workerMaria T, present. Pt reports feeling good today; pt stated, I'm not feeling depressed. I always have a little bit of anxiety. I came here because I wanted a couple more days of sobriety. When I left here last time, I was good for week and a half then I relapsed because my friend . Pt reports he is not interested in going to a program and just wants IOP and a therapist . Pt reports he did not follow up with his IOP or therapist appointments that were set up during his last admission on M3. We discussed possible Section 35, pt stated, if I want to use then I'm going to use in a program. I've been to detox 15-16 times. It's not going to stop me from using. The last time I was Section 35'd I was there for 45 days . pt denies SI/HI/VH/AH. T/W spoke to pt's mother, Kelsea,via phone today, who reported pt is allowed to return home after discharge. She reported concerns of pt's substance use. Pt stated, I tried sectioning him a year ago. I don't sleep at night unless he is in a program. I have thought about filing on him again. I want him to get better. I'd rather him get the help than go to his . Patient educated on: diagnosis, medication risk/benefits, substance abuse and therapeutic strategies Guardian/Caregiver educated on: diagnosis, medication risk/benefits, substance abuse and therapeutic strategies Informed Consent: understands Reason for continued inpatient stay Substantial Risk for: med/psych decompensation Time Spent With Patient Time: Total time managing care of this patient today _30___ minutes.
[2024-01-09 20:00] VITALS: BP 103/59; PULSE 50; RESP 16; TEMP 36.7; O2SAT 96
[2024-01-09 21:30] VITALS: BP 131/74; PULSE 74; RESP 16
[2024-01-09] MEDS: Gabapentin 300 MG CAPSULE PO (21:33)
[2024-01-09] MEDS: Baclofen 10 MG TABLET PO (21:33)
[2024-01-09] MEDS: hydrOXYzine HCL 50 MG TABLET PO (21:33)
[2024-01-09] MEDS: Mirtazapine 7.5 MG TABLET PO (21:33)
[2024-01-09] MEDS: QUEtiapine Fumarate 100 MG TABLET PO (21:34)
[2024-01-10] MEDS: Nicotine Polacrilex 2 MG GUM 4 MG BUCCAL ×4 (05:58→18:22)
[2024-01-10] MEDS: oxyCODONE HCl Immed Release 5 MG TABLET PO (05:58)
[2024-01-10] MEDS: Omeprazole 20 MG CAPSULE.DR PO (05:58)
[2024-01-10 07:55] VITALS: BP 103/60; PULSE 62; RESP 14; TEMP 36.6; O2SAT 98
[2024-01-10] MEDS: methADONE HCl 20 MG/2 ML ORAL.CONC 140 MG PO (08:01)
[2024-01-10] MEDS: Gabapentin 600 MG TABLET PO ×3 (08:02→20:50)
[2024-01-10] MEDS: clonazePAM 1 MG TABLET PO ×3 (08:02→20:51)
[2024-01-10] MEDS: FLUoxetine HCl 20 MG CAPSULE 40 MG PO (08:02)
[2024-01-10] MEDS: Ibuprofen 600 MG TABLET PO ×4 (08:03→20:50)
[2024-01-10] MEDS: Doxycycline Monohydrate 100 MG CAPSULE PO ×2 (08:04→20:51)
[2024-01-10] MEDS: Amoxicillin/Potassium Clav 875 MG TABLET PO ×2 (08:04→20:51)
[2024-01-10] MEDS: Nicotine 21 MG PATCH.TD24 TRANSDERMA (08:09)
[2024-01-10] MEDS: Collagenase Clostridium Hist. 30 GM TUBE 1 APPL TOPICAL (09:35)
--- NOTE | 2024-01-10 09:55 | HO.PSYCHPN ---
Subjective Subjective Date of Service: 01/10/24 Reason For Visit: crisis Subjective Notes: Conditional Voluntary Interim History: Reviewed with Dr. Johnson. Pt reports feeling okay ; pt stated, I'm anxious about you guys Section 35'ing me. I would have never came here if I knew you guys might do this. If you do, I'm going to flip out when I find out. I will get out of there and get high and my mom can go to my . It would be resentful . Pt denies SI/HI/VH/AH. Medication Compliance: Yes Side effects from medications: No Attending Groups: Yes Review of Systems Constitutional: Reports as per HPI Eyes: Reports as per HPI Reports as per HPI Cardiovascular: Reports as per HPI Respiratory: Reports as per HPI Gastrointestinal: Reports as per HPI Genitourinary: Reports as per HPI Musculoskeletal: Reports as per HPI Skin/Breast: Reports as per HPI Reports as per HPI Psychiatric: Reports as per HPI Endocrine: Reports as per HPI Hematologic/Lymphatic: Reports as per HPI Allergic/Immunologic: Reports as per HPI Mental Status Exam Mental Status Exam Narrative: Pt is alert and oriented; behavior is cooperative, irritable; dressed in casual attire; mood is described as good ; eye contact appropriate; Speech is normal rate, volume and not pressured; thought process is organized; Thought content is on tx and discharge; otherwise pertinent to relevant topics and without any delusional content, paranoid ideations or grandiosity; denies SI/HI/VH/AH. Diagnostics Vital Signs (24Hr): Vital Signs - 24 hr 01/09/24 20:00 01/09/24 21:30 01/10/24 07:55 Temperature 98.0 F 97.8 F Pulse Rate 50 74 62 Respiratory Rate 16 16 14 Blood Pressure 103/59 L 131/74 103/60 Pulse Oximetry 96 98 Oxygen Delivery Method Room Air Room Air BMI result Body Mass Index 28.8 Medications Medications Current Medications Al Hydroxide/Mg Hydroxide (Magnesium Hydrox/Alum Hydrox 30 Ml Oral.Susp) 30 ml PO Q6H PRN PRN Reason: Heartburn/Nausea Amoxicillin/Clavulanate Potassium (Amoxicillin/Potassium Clav 875 Mg Tablet) 875 mg PO Q12H [facility] Last Admin: 01/10/24 08:04 Dose: 875 mg Baclofen (Baclofen 10 Mg Tablet) 10 mg PO BEDTIME [facility] Last Admin: 01/09/24 21:33 Dose: 10 mg Clonazepam (Clonazepam 1 Mg Tablet) 1 mg PO TID [facility] Last Admin: 01/10/24 08:02 Dose: 1 mg Collagenase (Collagenase Clostridium Hist. 30 Gm Tube) 1 appl TOPICAL DAILY [facility]; Protocol Last Admin: 01/10/24 09:35 Dose: 1 appl Doxycycline Monohydrate (Doxycycline Monohydrate 100 Mg Capsule) 100 mg PO Q12H [facility] Last Admin: 01/10/24 08:04 Dose: 100 mg Fluoxetine HCl (Fluoxetine Hcl 20 Mg Capsule) 40 mg PO DAILY [facility] Last Admin: 01/10/24 08:02 Dose: 40 mg Gabapentin (Gabapentin 600 Mg Tablet) 600 mg PO TID [facility] Last Admin: 01/10/24 08:02 Dose: 600 mg Gabapentin (Gabapentin 300 Mg Capsule) 300 mg PO BEDTIME [facility] Last Admin: 01/09/24 21:33 Dose: 300 mg Hydrocortisone (Hydrocortisone 2.5 % Rectal Cr 30 Gm Tube) 1 appl [place] BEDTIME [facility] Last Admin: 01/09/24 23:14 Dose: Not Given Hydroxyzine HCl (Hydroxyzine Hcl 50 Mg Tablet) 50 mg PO Q4H PRN PRN Reason: Anxiety Last Admin: 01/09/24 21:33 Dose: 50 mg Ibuprofen (Ibuprofen 600 Mg Tablet) 600 mg PO QID [facility] Last Admin: 01/10/24 08:03 Dose: 600 mg Magnesium Hydroxide (Milk Of Magnesia 30 Ml Oral.Susp) 30 ml PO DAILY PRN PRN Reason: Constipation Methadone HCl (Methadone Hcl 20 Mg/2 Ml Oral.Conc) 140 mg PO DAILY [facility] Last Admin: 01/10/24 08:01 Dose: 140 mg Mirtazapine (Mirtazapine 7.5 Mg Tablet) 7.5 mg PO BEDTIME [facility] Last Admin: 01/09/24 21:33 Dose: 7.5 mg Nicotine (Nicotine 21 Mg Patch.Td24) 21 mg TRANSDERMA DAILY [facility] Last Admin: 01/10/24 08:09 Dose: 21 mg Nicotine Polacrilex (Nicotine Polacrilex 2 Mg Gum) 4 mg BUCCAL Q2H PRN PRN Reason: Nicotine Cravings Last Admin: 01/10/24 09:14 Dose: 4 mg Omeprazole (Omeprazole 20 Mg Capsule.Dr) 20 mg PO DAILY@0630 [facility] Last Admin: 01/10/24 05:58 Dose: 20 mg Oxycodone HCl (Oxycodone Hcl Immed Release 5 Mg Tablet) 5 mg PO Q4H PRN PRN Reason: Pain, Severe (Pain Scale 7-10) Last Admin: 01/10/24 05:58 Dose: 5 mg Quetiapine Fumarate (Quetiapine Fumarate 100 Mg Tablet) 100 mg PO BEDTIME PRN PRN Reason: Sleep Last Admin: 01/09/24 21:34 Dose: 100 mg Trazodone HCl (Trazodone Hcl 50 Mg Tablet) 50 mg PO BEDTIME MRX1 PRN PRN Reason: Insomnia Last Admin: 01/09/24 00:26 Dose: 50 mg Allergies Allergies Allergy/AdvReac Type Severity Reaction Status Date / Time Pertussis Vaccines Allergy Mild HIVES Verified 01/01/24 02:18 [PERTUSSIS VACCINES] Assessment & Plan Assessment & Plan (1) Polysubstance abuse: Status: Acute Code(s): F19.10 - Other psychoactive substance abuse, uncomplicated (2) Mood disorder: Status: Acute Code(s): F39 - Unspecified mood [affective] disorder Plan 01/06: continue/restart outpt med regimen. refer for therapy and IOP/PHP. 01/07: feeling well. pain managed with increased oxycodone availability. continue current mgmt. 01/08: Attending groups. tin workerMaria T, present. Pt reports feeling good today; pt stated, I'm not feeling depressed. I always have a little bit of anxiety. I came here because I wanted a couple more days of sobriety. When I left here last time, I was good for week and a half then I relapsed because my friend . Pt reports he is not interested in going to a program and just wants IOP and a therapist . Pt reports he did not follow up with his IOP or therapist appointments that were set up during his last admission on M3. We discussed possible Section 35, pt stated, if I want to use then I'm going to use in a program. I've been to detox 15-16 times. It's not going to stop me from using. The last time I was Section 35'd I was there for 45 days . pt denies SI/HI/VH/AH. T/W spoke to pt's mother, Kelsea,via phone today, who reported pt is allowed to return home after discharge. She reported concerns of pt's substance use. Pt stated, I tried sectioning him a year ago. I don't sleep at night unless he is in a program. I have thought about filing on him again. I want him to get better. I'd rather him get the help than go to his . 01/09: Pt reports feeling okay ; pt stated, I'm anxious about you guys Section 35'ing me. I would have never came here if I knew you guys might do this. If you do, I'm going to flip out when I find out. I will get out of there and get high and my mom can go to my . It would be resentful . Pt denies SI/HI/VH/AH. Continue current tx plan. Patient educated on: diagnosis, medication risk/benefits and substance abuse Informed Consent: understands Reason for continued inpatient stay Substantial Risk for: med/psych decompensation Time Spent With Patient Time: Total time managing care of this patient today _20___ minutes.
--- NOTE | 2024-01-10 10:00 | HO.WOUND ---
Wound Consult: Follow up 33yr old?M admitted to [facility] on 01/01/24 and transitioned to Inpatient Behavioral Health Unit 01/06/24 - See progress notes and H&P for detailed history. Wound consult follow up for Right Arm wounds secondary to IVDU injection site. Patient agreeable to assessment and photo documentation.? Patient with recent admissions and discharges see chart for details. Patient was seen this admission by General Surgery - Dr. Aburto recommends Santyl for enzymatic debridement and out patient wound clinic follow up. Right Forearm 01/02/24 Right Forearm - improving overall Etiology: Ulceration secondary to IVDU injection Wound Bed: Overall improving remains with deeper areas of ulceration and adherent moist yellow slough - areas of pink viable tissue Drainage / Odor: No odor noted - creamy yellow drainage and scant serosanginous drainage noted Edges: ? irregular Pia wound: maceration noted to intact skin bridges - improved erythema and swelling, + radial pulse noted, denies numbness and tingling. No Fluctuance noted Pain: mild pain reported Goals of Treatment: ?Left upper area that remains with black brown slough to received Santly remained of wound bed with use Durafiber AG for moisture management. Left forearm with scab noted - patient report he does find he is scratching at night without knowing it - Topical Hydrocolloid applied to minimize scratching and trauma and allow for moist wound healing. Recommendations: 1. Left Forearm - Hydrocolloid to be applied. May change every 3 days but may stay in place for up to 5-7 days. 2. Right Forearm - Cleanse with NS, pat dry.?Apply Triad barrier to the immediate pia wound and intact macerated skin bridges. To the black necrotic tissue at 11 o'clock apply thick layer of Santyl, to remaining ulcerated areas lightly pack with Durafiber AG, cover with dry gauze, ABD Pad, and netting, change Santyl portion daily, Durafiber every other day. Recommend follow up out patient Wound Clinic at [address] [place] [id number] and to call for an appointment at time of discharge. [phone].? Re-consult wound care Nurse for wound deterioration or wound changes
[2024-01-10 20:00] VITALS: BP 92/60; PULSE 60; RESP 16; TEMP 36.3; O2SAT 97
[2024-01-10] MEDS: Baclofen 10 MG TABLET PO (20:49)
[2024-01-10] MEDS: Mirtazapine 7.5 MG TABLET PO (20:49)
[2024-01-10] MEDS: Gabapentin 300 MG CAPSULE PO (20:50)
[2024-01-11] MEDS: Omeprazole 20 MG CAPSULE.DR PO (05:53)
[2024-01-11] MEDS: Nicotine Polacrilex 2 MG GUM 4 MG BUCCAL ×2 (05:53→10:06)
[2024-01-11 07:58] VITALS: BP 99/68; PULSE 74; RESP 18; TEMP 36.6; O2SAT 98
[2024-01-11] MEDS: methADONE HCl 20 MG/2 ML ORAL.CONC 140 MG PO (08:10)
[2024-01-11] MEDS: Doxycycline Monohydrate 100 MG CAPSULE PO (08:12)
[2024-01-11] MEDS: FLUoxetine HCl 20 MG CAPSULE 40 MG PO (08:13)
[2024-01-11] MEDS: Ibuprofen 600 MG TABLET PO (08:13)
[2024-01-11] MEDS: clonazePAM 1 MG TABLET PO (08:13)
[2024-01-11] MEDS: Nicotine 21 MG PATCH.TD24 TRANSDERMA (08:14)
[2024-01-11] MEDS: Gabapentin 600 MG TABLET PO (08:14)
[2024-01-11] MEDS: Collagenase Clostridium Hist. 30 GM TUBE 1 APPL TOPICAL (08:19)
[2024-01-11] MEDS: oxyCODONE HCl Immed Release 5 MG TABLET PO (08:35)
[2024-01-11] MEDS: Amoxicillin/Potassium Clav 875 MG TABLET PO (10:04)
[2024-01-11] MEDS: Naloxone HCl Nasal TAKE HOME 4 MG SPRAY 8 MG NOSTRILALT (10:08)
--- NOTE | 2024-01-11 11:36 | PM.PSYDC ---
DS: Providers Provider Date of Service: 01/11/24 Date of admission: 01/06/24 15:48 Date of discharge: 01/11/24 Primary care physician: Unknown Physician Attending physician on admission: Christopher Paiz Consults: 01/09/24 16:12 Consult to Wound Care Routine Reason for consultation: Right Forearm Wound Attending physician on discharge: Ruddy Johnson Discharging clinician: Arlene Reina DS: Diagnosis Discharge Diagnosis (1) Polysubstance abuse: Status: Acute (2) Mood disorder: Status: Acute DS: Medications Discharge Medications Home Medications: Home Medications ?Medication ?Instructions ?Recorded ?Confirmed baclofen 10 mg tablet 10 mg PO BEDTIME cocaine withdrawal 10/13/23 01/06/24 fluoxetine 40 mg capsule 40 mg PO DAILY 10/13/23 01/06/24 gabapentin 600 mg tablet 600 mg PO TID 10/13/23 01/06/24 methadone 10 mg/mL oral 140 mg PO DAILY 10/13/23 01/06/24 concentrate (Methadone Intensol) quetiapine 100 mg tablet 100 mg PO BEDTIME PRN Sleep 10/13/23 01/06/24 clonazepam 1 mg tablet 1 mg PO TID 12/05/23 01/06/24 gabapentin 300 mg capsule 300 mg PO BEDTIME 12/05/23 01/06/24 mirtazapine 7.5 mg tablet 7.5 mg PO BEDTIME 12/05/23 01/06/24 Previous Rx's ?Medication ?Instructions ?Recorded amoxicillin 875 mg-potassium 1 tab PO Q12H #10 tabs 01/06/24 clavulanate 125 mg tablet collagenase clostridium histo. 250 1 appl topical DAILY #30 grams 01/06/24 unit/gram topical ointment (Santyl) doxycycline monohydrate 100 mg 100 mg PO Q12H #10 caps 01/06/24 capsule omeprazole 20 mg capsule,delayed 20 mg PO DAILY@0630 #30 caps 01/06/24 release Mental Status Exam Mental Status Exam Narrative: Pt is alert and oriented; behavior is cooperative, irritable; dressed in casual attire; mood is described as good ; eye contact appropriate; Speech is normal rate, volume and not pressured; thought process is organized; Thought content is on tx and discharge; otherwise pertinent to relevant topics and without any delusional content, paranoid ideations or grandiosity; denies SI/HI/VH/AH. DS: Summary Hospital Course Hospital Course: per CARE team evaluation, pt was referred for eval from medical floor after having been treated for infection in his arm due to IVDU. on being informed of plan for discharge, pt endorsed SI and requested admission to psych unit. per CARE team eval, this appears to be a pattern of behavior from pt, ie the malingering of Sx for secondary gain of housing/board. he declined referrals for substance use treatment. utox POS for opiates, fentanyl, methadone, benzo, cocaine. pt is prescribed methadone and benzos. on admission to psych unit, pt expresses interest in PHP and therapy referrals. continues to decline referral for substance use treatment. would like to continue/restart previous medications. in addition, c/o pain due to forearm lesion, asking for increased dosing of oxycodone. dosing increased from Q6H to Q4H. no other complaints or requests presently. continue/restart outpt med regimen. refer for therapy and IOP/PHP. feeling well. pain managed with increased oxycodone availability. continue current mgmt. Attending groups. personal support workerMaria T, present. Pt reports feeling good today; pt stated, I'm not feeling depressed. I always have a little bit of anxiety. I came here because I wanted a couple more days of sobriety. When I left here last time, I was good for week and a half then I relapsed because my friend . Pt reports he is not interested in going to a program and just wants IOP and a therapist . Pt reports he did not follow up with his IOP or therapist appointments that were set up during his last admission on [facility]. We discussed possible Section 35, pt stated, if I want to use then I'm going to use in a program. I've been to detox 15-16 times. It's not going to stop me from using. The last time I was Section 35'd I was there for 45 days . pt denies SI/HI/VH/AH. T/W spoke to pt's mother, Kelsea,via phone today, who reported pt is allowed to return home after discharge. She reported concerns of pt's substance use. Pt stated, I tried sectioning him a year ago. I don't sleep at night unless he is in a program. I have thought about filing on him again. I want him to get better. I'd rather him get the help than go to his . Pt reports feeling okay ; pt stated, I'm anxious about you guys Section 35'ing me. I would have never came here if I knew you guys might do this. If you do, I'm going to flip out when I find out. I will get out of there and get high and my mom can go to my . It would be resentful . Pt denies SI/HI/VH/AH. Continue current tx plan. Treatment team determined to Section 35 patient d/t safety concerns of pt relapsing given his hx; which could result in overdose or worsening wounds With potential disability given necrotic tissue difficulty healing patient's lack of sobriety and continued injections despite medical consequences Patient has been hospitalized for left and right arm cellulitis associated with contaminated heroin. Patient previously had stated he would do IOP but then did not follow-up. Refused referral to more intensive addiction treatment despite severity of his wounds and potential long-term consequences. He also did not follow-up previously with wound care referral. The patient's mother had spoken to the nurse practitioner Arlene Reina prior to filing the section 35 and reportedly was in favor and later on the morning of filing the section 35 was quite anxious and stated that she would take off a week wks work to stay with him, later stated she was concerned he would do something if he was treated through Section 35. Patient's mother was given information regarding the court hearing and access to the court Dr. Johnson obtained warrant from [facility] [address] on 01/11/24; [place] Police Officers arrived to unit and escorted pt to [facility] court for hearing on 01/11/24. Pt was notified; he presents calm, irritated but cooperative. Pt's mother, Kelsea, notified of Section 35 warrant. Time spent discussing smoking cessation with patient: 3 to 10 minutes Status at Discharge Cognitive/behavioral status at discharge: Patient was interviewed prior to discharge and found to be fully oriented and without SI or HI. Patient has insight and demonstrates good judgment in terms of wanting to pursue treatment. Patient has a safety plan that includes presenting to the closest ER or calling 911 if feeling unsafe. Functional status at discharge: independent ambulation Overall status at discharge: patient is back to baseline Time Spent with Patient Time attestation: Total time managing care of this patient today _20___ minutes. Time spent: Less than 30 minutes Discharge Plan Discharge Anticipated Discharge Date/Time: 01/11/24 10:00 Patient Disposition: Xfer Other Discharge Diagnosis: MDD, opioid use d/o, cocaine use d/o Referrals: Physician,Unknown J [Primary Care Provider] - 1 Week Discharge Medications: Continued methadone [Methadone Intensol] 10 mg/mL Concentrate 140 mg PO DAILY fluoxetine 40 mg capsule 40 mg PO DAILY quetiapine 100 mg tablet 100 mg PO BEDTIME PRN (Reason: Sleep) baclofen 10 mg tablet 10 mg PO BEDTIME gabapentin 600 mg tablet 600 mg PO TID gabapentin 300 mg capsule 300 mg PO BEDTIME mirtazapine 7.5 mg tablet 7.5 mg PO BEDTIME clonazepam 1 mg tablet 1 mg PO TID doxycycline monohydrate 100 mg Capsule 100 mg PO Q12H Qty: 10 0RF omeprazole 20 mg Capsule,Delayed Release(Dr/Ec) 20 mg PO DAILY@0630 Qty: 30 0RF Santyl 250 unit/gram Ointment 1 appl topical DAILY Qty: 30 0RF Protocol: Apply to: Apply to: right arm open wounds amoxicillin-pot clavulanate 875-125 mg Tablet 1 tab PO Q12H Qty: 10 0RF Discharge Orders: Discharge Order (Routine); Ordered 01/11/24 Ordered By: Arlene Reina Diet: Regular diet Activity on Discharge: As tolerated Stand Alone Forms: Patient Portal Discharge page, Community Support Print Language: East [place]se Activity Restrictions/Additional Instructions: Topical Wound Care Recommendations: 1. Left Forearm - Hydrocolloid to be applied. May change every 3 days but may stay in place for up to 5-7 days. 2. Right Forearm - Cleanse with NS, pat dry.?Apply Triad barrier to the immediate pia wound and intact macerated skin bridges. To the black necrotic tissue at 11 o'clock apply thick layer of Santyl, to remaining ulcerated areas lightly pack with Durafiber AG, cover with dry gauze, ABD Pad, and netting, change Santyl portion daily, Durafiber every other day. Recommend follow up out patient Wound Clinic at [address] [place] [id number] and to call for an appointment at time of discharge. [phone].? Care Plan Goals: Maintain mood and safe behaviors Take medications as prescribed Continue to pursue sobriety Practice coping skills Continue with outpatient providers and reach out to them as needed Health Concerns: Mood stability and behaviors Sobriety Plan of Treatment: Follow up with your PCP, psychiatric provider and other outpatient providers regarding above concerns Take medications as prescribed Assessment: Patient was interviewed prior to discharge and found to be fully oriented and without SI or HI. Patient has insight and demonstrates good judgment in terms of wanting to pursue treatment. Patient has a safety plan that includes presenting to the closest ER or calling 911 if feeling unsafe. Discharge Date/Time: 01/11/24 10:22
--- NOTE | 2024-01-12 10:07 | PC.NURSE ---
Update: Pt was court commited to [place] on a Section 35 for treatment.
== END 2024-01-11 10:22 | disposition other institution (70) | DRG 754 ==
PROVIDERS: Admitting Provider Internal Medicine; Responsible Provider Registered Nurse; Visit Provider Psychiatry & Neurology Psychiatry
DX: F32.9 Major depressive disorder, single episode, unspecified (principal); R45.851 Suicidal ideations; F11.20 Opioid dependence, uncomplicated; F17.210 Nicotine dependence, cigarettes, uncomplicated; F19.10 Other psychoactive substance abuse, uncomplicated; Z71.6 Tobacco abuse counseling; Z79.899 Other long term (current) drug therapy

== ENCOUNTER → 2024-01-06 15:48 | Outpatient (BNV) | payer OTHER, SELFPAY | PROVIDERS: Admitting Provider Internal Medicine; Visit Provider Psychiatry & Neurology Psychiatry | DX: F39 Unspecified mood [affective] disorder (principal); F19.10 Other psychoactive substance abuse, uncomplicated | CPT/HCPCS: 99222; 99231; 99232; 99233; 99238 ==

== ENCOUNTER 2024-02-07 12:58 | Outpatient (RCR) | payer OTHER, SELFPAY | END 2024-03-23 10:02 | disposition admitted as inpatient to this hospital (09) | LOC: HO.WCC 12:58 | PROVIDERS: PCP Internal Medicine; Visit Provider Physician Assistant | DX: L98.492 Non-pressure chronic ulcer of skin of other sites with fat layer exposed (principal); F11.20 Opioid dependence, uncomplicated; F14.90 Cocaine use, unspecified, uncomplicated; F17.200 Nicotine dependence, unspecified, uncomplicated | CPT/HCPCS: 11042 ==

== ENCOUNTER 2024-02-27 21:20 | Emergency (ER) | payer OTHER, SELFPAY ==
--- NOTE | ~2024-02-27 | XR_ITS ---
EXAMINATION: PORTABLE CHEST 1 VIEW CLINICAL INFORMATION: OD unresponsive, ? Aspiration pna. COMPARISON: 02/13/2023. TECHNIQUE: Portable frontal view of the chest was obtained. FINDINGS: The lungs are hypoexpanded. No focal infiltrate, effusion, edema, or pneumothorax. Cardiac and mediastinal silhouettes are within normal limits for technique. No acute bony abnormality seen. XR/XR chest 1V IMPRESSION: No evidence of acute disease.
--- NOTE | ~2024-02-27 | CT_ITS ---
EXAMINATION: CT head/brain wo IV con, CT cervical spine wo IV con INDICATION INFORMATION: Reason for Exam ams found on ground s/p od COMPARISON: CT head without contrast 05/26/2022 TECHNIQUE: Separate noncontrast CT examinations of the head and cervical spine were performed. Coronal and sagittal images were created for each examination at the technologist workstation. This CT examination was performed using dose optimization techniques as appropriate, variously including the following: *Automated exposure control *Adjustment of mA and/or kV according to patient size (this includes techniques or standardized protocols for targeted exams where dose is matched to indication/reason for exam; i.e. extremities or head) *Use of iterative reconstruction technique DLP: 1092.63 mGy-cm FINDINGS: Motion degraded examination Head: No acute osseous or soft tissue abnormality. The mastoid air cells and visualized portions of the paranasal sinuses are well aerated. There is no evidence of acute intracranial hemorrhage or territorial infarction. No abnormal mass effect or midline shift is seen. [place] to white matter differentiation is well preserved. No extra-axial fluid collections are identified. No hydrocephalus. No significant volume loss. There is no abnormal attenuation within the brain parenchyma. Cervical spine: Motion limits sensitivity for acute nondisplaced fracture. There is no evidence of acute cervical spine fracture. Vertebral bodies remain normal in height. Cervical straightening. No significant spondylolisthesis. Disc space heights are maintained. No pre- or paravertebral soft tissue abnormality is identified. Visualized portions of the lung apices are unremarkable. The thyroid gland is unremarkable. CT/CT cervical spine wo IV con IMPRESSION: Within the limitations of motion artifact: 1. No acute intracranial abnormality. 2. No cervical spine fracture or traumatic malalignment.
[2024-02-27 21:26] VITALS: BP 120/68; BP 156/87; PULSE 115; PULSE 95; RESP 20; TEMP 36.6; O2SAT 96; BMI 31.6
--- NOTE | 2024-02-27 21:27 | ED.GENADULT ---
HPI - General Adult General Chief complaint: ETOH/Substance Use Stated complaint: DRUG USE COMPLAINING OF CP Time Seen by Provider: 02/27/24 21:20 Source: EMS and police Mode of arrival: EMS Limitations: altered mental status History of Present Illness ED Provider: Juan MARRERO HPI narrative: 33 yo male history of microcytic anemia, mood disorder, cocaine use disorder, major depression, polysubstance abuse, opiate abuse, IVDA presenting to the emergency department status post overdose, requiring 2 rounds of intranasal Narcan for patient to come to, he was found at home by his family on the ground, not on blood thinners. Patient very altered likely from substances unable to provide history review of systems. He was brought in by EMS and police. Acting erratic Related Data Home Medications ?Medication ?Instructions ?Recorded ?Confirmed baclofen 10 mg tablet 10 mg PO BEDTIME cocaine withdrawal 10/13/23 01/06/24 fluoxetine 40 mg capsule 40 mg PO DAILY 10/13/23 01/06/24 gabapentin 600 mg tablet 600 mg PO TID 10/13/23 01/06/24 methadone 10 mg/mL oral 140 mg PO DAILY 10/13/23 01/06/24 concentrate (Methadone Intensol) quetiapine 100 mg tablet 100 mg PO BEDTIME PRN Sleep 10/13/23 01/06/24 clonazepam 1 mg tablet 1 mg PO TID 12/05/23 01/06/24 gabapentin 300 mg capsule 300 mg PO BEDTIME 12/05/23 01/06/24 mirtazapine 7.5 mg tablet 7.5 mg PO BEDTIME 12/05/23 01/06/24 Previous Rx's ?Medication ?Instructions ?Recorded amoxicillin 875 mg-potassium 1 tab PO Q12H #10 tabs 01/06/24 clavulanate 125 mg tablet collagenase clostridium histo. 250 1 appl topical DAILY #30 grams 01/06/24 unit/gram topical ointment (Santyl) doxycycline monohydrate 100 mg 100 mg PO Q12H #10 caps 01/06/24 capsule omeprazole 20 mg capsule,delayed 20 mg PO DAILY@0630 #30 caps 01/06/24 release naloxone 4 mg/actuation nasal 4 mg intranasal Q2M PRN opioid 01/12/24 spray (Narcan) overdose #2 ea Allergies Allergy/AdvReac Type Severity Reaction Status Date / Time Pertussis Vaccines Allergy Mild HIVES Verified 02/27/24 21:29 [PERTUSSIS VACCINES] Review of Systems Review of Systems: Yes Unobtainable due to mental status PMFSH Past Medical History Attestation statement: The following information was validated with the patient. Source: old records reviewed and nursing notes reviewed Medical History Arm ulcer MRSA bacteremia Suicidal ideation Depression Diabetes Cocaine use with cocaine-induced disorder Opiate dependence, continuous Major depressive disorder, recurrent severe without psychotic features Depression Anxiety IVDU (intravenous drug user) Diabetes Asthma Family History Family History Father Heart disease Social History Social History Household Members: Family Household Members Other:: mother Housing: House Do you presently have visiting nurse or other home services: No Alcohol intake: unknown Comment: 1:1 sitter Patient Tobacco Use Status: Current everyday Tobacco user Tobacco use type: Cigarette Cigarette Packs Per Day: 1 Cigarettes Per Day: 20.0 Years Smoked: 15 e-Cigarette/Vaping Use: Former Use Second Hand Smoke Exposure: No Substance Use Type: Crack/Cocaine, Heroin and Other Advance Directives: No Advance Directives Information Provided: Yes Advance Directives Date on File: 01/30/21 service: No Current occupational status: unemployed Sexual orientation: Straight/Heterosexual Physical Exam ED Vital Signs: Vital Signs - 24 hr 02/27/24 21:26 02/28/24 00:59 Temperature 97.8 F 97.7 F Pulse Rate 95 78 Respiratory Rate 20 20 Blood Pressure 120/68 111/68 Pulse Oximetry 96 95 Oxygen Delivery Method Room Air Room Air BMI result Body Mass Index 31.6 vss Appearance: Awake, alert, erratic movements, not following commands..? No acute distress.? Head: Normocephalic, atraumatic, no step-offs or deformities Eyes: Pupils equal, round and reactive to light.? ENT: Pharynx normal.? Neck: Normal inspection.? Neck supple.? CVS: Normal heart rate and rhythm.? Pulses normal.? Respiratory: No respiratory distress.? Breath sounds normal.? Abdomen: Soft and nontender.? Skin: Skin warm and dry.? Normal skin color.? Normal skin turgor.? Extremities: No lower extremity edema.? No calf ttp. 5/5 strength to bilateral upper and lower extremities Neuro: Awake, alert, erratic movements, not following commands..? No acute distress.? Under the influence of drugs, unable to perform neurological assessment. Patient intermittently following directions. Course Reevaluation(s) Reevaluation #1: X-ray no evidence of acute disease. Patient refusing labs as he is a very difficult stick he has refused more than 3 or 4 times nursing staff has tried, tics have tried. And he is adamantly refusing. CT head and neck pending. Time: 00:15 Reevaluation #2: still no labs. CT head pending. Patients VSS. He is now sleeping. No acute distress. Patient has the right to refuse labs, will have nursing reapproach to see if he has changed his mind. This time patient placed into observation to allow more time to be seen by care team for polysubstance abuse possible detox. EMS did note initially he made suicidal comments however when he arrives here to the department he is far too altered to obtain an accurate history and physical. Will put in a care team consult. Medical Decision Making Medical Decision Making [facility] Narrative: 2128 33 yo m presents w/ polysubstance abuse and OD requiring two rounds of intranasal narcan found on the ground by family unclear how long he was down for PE awake, moving all extremities, evidently under the influence of drugs Hx and pe concerning for poly substance. No signs of truama to chest, abd or pelvis. Will rule out trauma to head, cervical spine. Will rule out metabolic derangements and rhabdo. Will also obtain chest x-ray to rule out possible aspiration. Plan labs, imaging, urine. Differential Diagnosis Differential Diagnoses: The differential diagnosis associated with the presentation includes Hx and pe concerning for poly substance. No signs of truama to chest, abd or pelvis. Will rule out trauma to head, cervical spine. Will rule out metabolic derangements and rhabdo. Will also obtain chest x-ray to rule out possible aspiration. Admission/Observation Consideration of admission/observation: Escalation of care including admission/observation considered No indicaiton Lab Data [facility] Lab Attestation statement: I reviewed the patient's lab results. 02/27/24 21:59 02/27/24 21:59 Independent Interpretation I performed an independent interpretation of an: EKG (Vent. Rate : 080 BPM Atrial Rate : 080 BPM P-R Int : 146 ms QRS Dur : 090 ms QT Int : 404 ms P-R-T Axes : 039 010 049 degrees QTc Int : 465 ms Normal sinus rhythm Normal ECG When compared with ECG of 03-JAN-2024 10:12, QT has lengthened ), Plain X-Ray (XR/XR chest 1V IMPRESSION: No evidence of acute disease.) and CT Scan (CT/CT cervical spine wo IV con IMPRESSION: Within the limitations of motion artifact: 1. No acute intracranial abnormality. 2. No cervical spine fracture or traumatic malalignment. ) Radiology Impression Discussion of test interpretation with radiology: I have reviewed the radiologist's reading. External Record Review External record reviewed: Inpatient record, Office record, Outpatient record, Prior outpatient labs, Prior outpatient radiology, Primary care record and Outside ED record Chronic Conditions Patient?s care impacted by: Other (polysubstance ) Critical Care Time Critical Care Time Critical Care Time: No Discharge Plan Discharge Clinical Impression: Opioid use disorder, Polysubstance abuse Patient Disposition: Still a Patient Prescriptions: No Action methadone [Methadone Intensol] 10 mg/mL Concentrate 140 mg PO DAILY fluoxetine 40 mg capsule 40 mg PO DAILY quetiapine 100 mg tablet 100 mg PO BEDTIME PRN (Reason: Sleep) baclofen 10 mg tablet 10 mg PO BEDTIME gabapentin 600 mg tablet 600 mg PO TID gabapentin 300 mg capsule 300 mg PO BEDTIME mirtazapine 7.5 mg tablet 7.5 mg PO BEDTIME clonazepam 1 mg tablet 1 mg PO TID doxycycline monohydrate 100 mg Capsule 100 mg PO Q12H Qty: 10 0RF omeprazole 20 mg Capsule,Delayed Release(Dr/Ec) 20 mg PO DAILY@0630 Qty: 30 0RF Santyl 250 unit/gram Ointment 1 appl topical DAILY Qty: 30 0RF Protocol: Apply to: Apply to: right arm open wounds amoxicillin-pot clavulanate 875-125 mg Tablet 1 tab PO Q12H Qty: 10 0RF naloxone [Narcan] 4 mg/actuation spray,non-aerosol 4 mg intranasal Q2M PRN (Reason: opioid overdose) Qty: 2 0RF Rx Instructions: spray 1 dose into ONE nostril; alternate nostrils w each dose until help arrives Print Language: Setswana
[2024-02-27 23:04] VITALS: PULSE 77
--- NOTE | 2024-02-27 23:04 | PC.NURSE ---
pt biba from home after family found pt unresponsive and surrounded by needles/paraphernalia. 4mg nasal narcan administered by family, 4mg nasal narcan administered by PD. on arrival pt is axox4. to ems pt made vague SI comments however denies SI/Hi to this RN. pt changed over by security belongings to decon. resp even and unlabored vss. 1:1 sitter at bedside. 3x attempt for blood draw; 1 hemolyzed per LAB. 2x unable to obtain pt difficult stick. pt refused further blood draws. PA made aware. pt swearing at staff however redirectable and resting comfortably in stretcher at this time. cows score 2 at this time.
[2024-02-28] VITALS (9 sets, daily range): BP systolic 107–122; BP diastolic 59–85; PULSE 63–82; RESP 14–20; TEMP 36.5–37.1; O2SAT 94–98
--- NOTE | 2024-02-28 00:15 | ECG_ITS ---
Test Reason : POLSUBSTANCE Blood Pressure : / mmHG Vent. Rate : 080 BPM Atrial Rate : 080 BPM P-R Int : 146 ms QRS Dur : 090 ms QT Int : 404 ms P-R-T Axes : 039 010 049 degrees QTc Int : 465 ms Normal sinus rhythm Normal ECG When compared with ECG of 03-JAN-2024 10:12, QT has lengthened Referred By: Brittaney Javed Electronically Signed By:Jameson Bellamy
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
--- NOTE | 2024-02-28 04:53 | PC.NURSE ---
this rn assumed care of pt, pt resting in stretcher, no acute distress noted. pt alert to touch at this time. 1:1 sitter at bedside. pt in green gown at this time.
--- NOTE | 2024-02-28 07:08 | PC.NURSE ---
Pt sleeping at this time, easily awakes with touch. Breathing even and unlabored. 1:[address] Will continue to monitor, plan is for care team meeting today.
--- NOTE | 2024-02-28 08:11 | PC.NURSE ---
Pt noted to have leaking abrasion right forearm, red and appears possibly infected. Reports this was from recently wont give more info. Pt is now allowing for blood work, tech reports he will attempt.
--- NOTE | 2024-02-28 08:24 | PC.NURSE ---
Pt reports chest pain for multiple days, has had it since he presented to ED yesterday, left sided chest tightness. Tech drawing labs at this time. NSR on bedside pattern room attendant. Provider aware. Pt calm and cooperative, CIWA 2.
[2024-02-28 08:55] LABS: Appearance Urine Clear; Color Urine Dark Yellow; Glucose Urine UA Negative (Negative); Leukocyte Esterase Urine Negative (Negative); Nitrite Urine Negative (Negative); PH 5.5 (5.0-9.0); Specific Gravity - Urine >= 1.030 (1.005-1.025); UMIC TRIGGER UACC YES; Urine Blood Negative (Negative); Urine Ketones Trace mg/dL (Negative); Urine Protein 100 (2+) mg/dL (Neg-Trace)
--- NOTE | 2024-02-28 08:57 | PC.NURSE ---
Pt very hard stick, PA attempting with ultrasound to get labs.
[2024-02-28 08:59] LABS: Amphetamine Screen Urine Not Detected (Not Detect); Barbiturates, Urine Not Detected (Not Detect); Benzodiazepines Screen Urine POSITIVE (Not Detect); Buprenorphine Scr Not Detected (Not Detect); Cannabinoid Screen Urine Not Detected (Not Detect); Cocaine Screen Urine POSITIVE (Not Detect); Fentanyl, urine POSITIVE (Not Detect); Methadone Screen, Urine Positive (Not Detect); Opiate Screen Urine POSITIVE (Not Detect); Oxycodone Screen Urine Not Detected (Not Detect); Phencyclidine Screen Urine Not Detected (Not Detect)
[2024-02-28 09:07] LABS: Bacteria Urine None Seen (None Seen); Hyaline Casts Urine 0-2 /LPF (0-2); RBC Urine 0-2 /HPF (0-2); Squamous Epithelial Cell Urine 0-2 /HPF (0-2); WBC Urine 0-5 /HPF (0-5)
[2024-02-28 09:19] LABS: MANUAL DIFF FLAG NO
[2024-02-28 09:26] LABS: Basophils Percent Auto 0.3 % (0-2); Eosinophils Absolute Auto 0.1 X10*3/uL (0.0-0.4); Eosinophils Percent Auto 1.4 % (0-4); Hematocrit 36.2 % (42.0-52.0); Hemoglobin 10.9 g/dl (14.0-18.0); Imm Gran Abs Auto 0.06 X10*3/uL (0.00-0.03); Imm Gran Pct Auto 0.7 % (0.0-0.4); Lymphocytes Percent Auto 22.5 % (20-40); Mean Corpuscular HGB Conc 30.1 g/dl (31.0-36.0); Mean Corpuscular Hemoglobin 20.2 pg (27.0-33.0); Mean Corpuscular Volume 67.2 fL (80.0-98.0); Mean Platelet Volume 9.1 fL (9.4-12.4); Monocytes Absolute Auto 1.2 X10*3/uL (0.1-1.2); Monocytes Percent Auto 13.3 % (2-11); Neutrophils Absolute Auto 5.6 x10*3/uL (2.0-8.3); Neutrophils Percent Auto 61.8 % (45-73); Platelet Count 299 X10*3/uL (160-400); Red Blood Count 5.39 X10*6/uL (4.60-5.80); White Blood Count 9.1 X10*3/uL (4.8-10.8)
[2024-02-28 09:32] LABS: Influenza A PCR NEGATIVE (Negative); Influenza B PCR NEGATIVE (Negative); Resp Syncy Virus RNA Qual PCR NEGATIVE (Negative); SARS COV2 PCR INHOUSE NEGATIVE (Negative)
[2024-02-28 09:37] LABS: Acetaminophen LAB < 3 mcg/mL (<30); Alanine Aminotransferase 21 U/L (0-40); Albumin Level 4.2 g/dL (3.5-5.0); Alkaline Phosphatase 81 U/L (39-117); Anion Gap 11 (12-20); Aspartate Amino Transferase 25 U/L (5-37); Bilirubin Total 0.8 mg/dL (0.0-1.0); Blood Urea Nitrogen 18 mg/dL (9-16); Calcium 9.8 mg/dL (8.4-10.2); Carbon Dioxide 29 mmol/L (22-29); Chloride 104 mmol/L (96-108); Creatinine Clr Calc Pharmacy 165.8; Estimated Glomerular Filt Rate > 60; Ethanol < 10 mg/dL; Glucose Random 171 mg/dL (60-115); Magnesium 2.3 mg/dL (1.6-2.6); Potassium 3.7 mmol/L (3.3-5.1); Salicylate < 5.0 mg/dL (15-30); Sodium 140 mmol/L (135-145)
--- NOTE | 2024-02-28 09:39 | PC.NURSE ---
Pt calm and cooperative, pleasant. Denies SI or HI at this time. 1:[address] Care team at bedside.
[2024-02-28 09:45] LABS: Troponin-I High Sensitivity < 2.7 ng/L (<3.5-35.0)
--- NOTE | 2024-02-28 09:54 | HE.PHANOTE ---
RE: METHADONE DOSING Last methadone dose of 170 mg was given on 02/27/24 @0971 at [facility] [phone] per Kerry WHITEHEAD.
[2024-02-28] MEDS: methADONE HCl 20 MG/2 ML ORAL.CONC 100 MG PO (10:10)
[2024-02-28] MEDS: methADONE HCl 20 MG/2 ML ORAL.CONC 70 MG PO (10:11)
--- NOTE | 2024-02-28 14:13 | MHC.CARE ---
Pt was seen by CARE team and will be a voluntary dual diagnosis bed search.
[2024-02-28 20:56] LABS: Glucose, Whole Blood 78 mg/dL (60-115)
[2024-02-29] MEDS: QUEtiapine Fumarate 100 MG TABLET PO (00:34)
[2024-02-29] MEDS: Mirtazapine 7.5 MG TABLET PO (00:34)
[2024-02-29] MEDS: clonazePAM 1 MG TABLET PO ×2 (00:34→08:23)
[2024-02-29] MEDS: Gabapentin 300 MG CAPSULE PO (00:35)
[2024-02-29] MEDS: cloNIDine HCL 0.1 MG TABLET PO ×2 (00:35→08:23)
[2024-02-29 06:00] VITALS: RESP 14
--- NOTE | 2024-02-29 06:42 | PHA.MEDREC ---
Pharmacy Consult ? Medication Reconciliation Pharmacy has completed the medication reconciliation. Pharmacy reviewed med rec done by nursing.
--- NOTE | 2024-02-29 07:07 | PC.NURSE ---
assumed care of patient at 0645, patient appears to be sleeping, respirations even and unlabored, no apparent distress noted. Continue plan of care for dual dx bedsearch
[2024-02-29] MEDS: FLUoxetine HCl 20 MG CAPSULE 40 MG PO (08:23)
[2024-02-29] MEDS: methADONE HCl 20 MG/2 ML ORAL.CONC 175 MG PO (08:23)
[2024-02-29] MEDS: metFORMIN HCl 500 MG TABLET PO (08:23)
[2024-02-29] MEDS: Gabapentin 600 MG TABLET PO (08:23)
--- NOTE | 2024-02-29 08:29 | MHC.CARE ---
Patient has been accepted for dual bed today @ [facility] [address] [place] [id number] ETA 1pm. Accepting physician Dr. Hensley, N2N is not needed per facility, pod RN Emilee notified of acceptance to the facility and is aware to book transport.
--- NOTE | 2024-02-29 08:47 | MHC.CARE ---
Clarification of the location of acceptance for Andrey is to [facility] is [address] [place] [address] Per Dina @ [facility].
[2024-02-29 09:08] VITALS: BP 107/58; PULSE 89; TEMP 36.9; O2SAT 98
--- NOTE | 2024-02-29 09:18 | PC.NURSE ---
Patient reporting tongue discomfort and some sort of infection. Upon examination, it is noted that patient has some kind of oral bacterial or fungal infection present. Patient reports moderate discomfort and reports relief with cold fluids or ice. MD Romano made aware via tiger text at 0918. Awaiting response at this time
[2024-02-29 11:00] VITALS: BP 125/65; PULSE 78; TEMP 37.1; O2SAT 97
[2024-02-29 11:08] VITALS: BP 126/65; PULSE 78; RESP 16; TEMP 37.1; O2SAT 97
== END 2024-02-29 12:04 ==
PROVIDERS: Emergency Medicine; Physician Assistant; Emergency Provider Emergency Medicine Emergency Medical Services; PCP Internal Medicine
DX: R07.89 Other chest pain (principal); F11.10 Opioid abuse, uncomplicated; R94.31 Abnormal electrocardiogram [ECG] [EKG]; F33.1 Major depressive disorder, recurrent, moderate; F14.10 Cocaine abuse, uncomplicated; T50.991A Poisoning by other drugs, medicaments and biological substances, accidental (unintentional), initial encounter; R40.4 Transient alteration of awareness; Y92.89 Other specified places as the place of occurrence of the external cause; Z79.899 Other long term (current) drug therapy; Z03.818 Encounter for observation for suspected exposure to other biological agents ruled out
CPT/HCPCS: 0241U; 36415; 70450; 71045; 72125; 80053; 80143; 80179; 80307; 81001; 82947; 83735; 84484; 85025; 93005; 99285; S9485

== ENCOUNTER → 2024-02-28 00:15 | Outpatient (BNV) | payer OTHER, SELFPAY | PROVIDERS: Emergency Provider Emergency Medicine Emergency Medical Services; Visit Provider Internal Medicine Cardiovascular Disease | DX: I45.81 Long QT syndrome (principal) | CPT/HCPCS: 93010 ==

== ENCOUNTER 2024-09-27 08:02 | Inpatient (IN) | payer OTHER, SELFPAY ==
[2024-09-27] VITALS (29 sets, daily range): BP systolic 100–156; BP diastolic 49–98; PULSE 55–118; RESP 18–40; TEMP 34.9–37.9; O2SAT 97–100; BMI 28.7; BMI 29.0
--- NOTE | ~2024-09-27 | CT_ITS ---
EXAMINATION: CT CERVICAL SPINE WITHOUT CONTRAST CLINICAL INFORMATION: Trauma. Intubated. COMPARISON: 02/28/2024. TECHNIQUE: Spiral CT imaging of the cervical spine performed in axial plane without contrast. Multiplanar reformatted images were constructed from the axial data set. This CT examination was performed using dose optimization techniques as appropriate, variously including the following: *Automated exposure control *Adjustment of mA and/or kV according to patient size (this includes techniques or standardized protocols for targeted exams where dose is matched to indication/reason for exam; i.e. extremities or head) *Use of iterative reconstruction technique FINDINGS: CORONAL ALIGNMENT: -Normal allowing for leftward head tilt. SAGITTAL ALIGNMENT: -Normal lordosis. No subluxations. C1-C2 AND CRANIOCERVICAL JUNCTION: -Intact and normally aligned. VERTEBRAL BODIES AND FACETS: -No fracture, compression deformity, or suspicious bone lesion. -Normal facet alignment.. DISCS: -Preserved. CENTRAL CANAL: -No evidence of high-grade central canal narrowing or large disc herniation allowing for modality limitations. PREVERTEBRAL AND PARAVERTEBRAL SOFT TISSUES: -There is no evidence of prevertebral soft tissue swelling. -Endotracheal tube in place, in good position within the distal trachea. -Orogastric tube curls in the posterior nasopharynx, and ultimately the tip is located next to the endotracheal tube within the trachea. Recommendation is made for repositioning of this device. LUNG APICES: -Clear bilaterally. CT/CT cervical spine wo IV con IMPRESSION: 1. No CT evidence for acute cervical spine injury or fracture. 2. Endotracheal tube in good position. 3. Orogastric tube loops in the posterior nasopharynx, with the tip in the distal trachea immediately abutting the endotracheal tube. This device should be repositioned. Electronically signed by: Adelso Munoz MD 09/27/2024 12:46 PM [facility] [place]
--- NOTE | ~2024-09-27 | CT_ITS ---
EXAMINATION: CT CHEST WITH IV CONTRAST, CT ABDOMEN PELVIS WITH IV CONTRAST INDICATION: ? pneumonia, abdominal pain. COMPARISON: None. TECHNIQUE: CT scan of the chest, abdomen and pelvis was performed following administration of 85 mL Omnipaque 350 using standard departmental protocol. Coronal and sagittal reformatted images were generated and reviewed. Oral contrast material was not administered at the request of the referring physician. This CT exam was performed with one or more of the following dose reduction techniques: automated exposure control, adjustment of the mA and/or kV according to patient size, use of iterative reconstruction technique. DLP: 1714 mGy-cm CHEST: LINES/TUBES: Endotracheal tube is noted with its tip just above the javier. An orogastric tube terminates at the thoracic inlet. A glue bone crusher image demonstrates the tube to be coiled in the nasopharynx. A left subclavian central venous catheter terminates in the superior vena cava. THYROID: The thyroid is unremarkable. LUNGS: There is near complete opacification of the right lower lobe with associated volume loss, compatible with atelectasis. Patchy airspace opacities seen in the left lower lobe, consistent with atelectasis or pneumonia. MEDIASTINUM: There is no mediastinal lymphadenopathy. ELIZABETH: There is no hilar lymphadenopathy. CARDIOVASCULATURE: The heart is normal in size. There is no pericardial effusion. The thoracic aorta is normal in caliber. DEGREE OF CORONARY CALCIFICATION: none PLEURA: There is no pleural effusion. No pneumothorax. MAIN AIRWAYS: The mainstem bronchi and proximal branches are patent. AXILLA: There is no axillary lymphadenopathy. SOFT TISSUES: Unremarkable. BONES: The bones are intact. ABDOMEN: LIVER: The liver is normal in size and contour. No liver mass is identified. The hepatic and portal veins are patent. GALLBLADDER / BILE DUCTS: The gallbladder is distended, without evidence of calcified stones. There is no intra or extrahepatic biliary ductal dilatation. SPLEEN: The spleen is enlarged. No focal splenic lesion is identified. PANCREAS: The pancreas is unremarkable in appearance. ADRENAL GLANDS: Within normal limits. KIDNEYS/RETROPERITONEUM: No renal calculi are identified. There is no hydronephrosis. No renal masses are identified. LYMPH NODES: No abdominal or pelvic lymphadenopathy. VASCULATURE: The abdominal aorta is normal in caliber. MESENTERY/PERITONEUM: No free fluid. No masses. There is no free intraperitoneal gas. STOMACH: The stomach is collapsed, limiting evaluation. SMALL BOWEL: The small bowel is normal in caliber. COLON: There is a large amount of stool throughout the colon. APPENDIX: Normal. URINARY BLADDER/PELVIC ORGANS: The urinary bladder is collapsed with Velásquez catheter. The prostate is normal in size. BONES / SOFT TISSUES: No suspicious bony or soft tissue abnormalities. CT/CT abdomen pelvis w IV con IMPRESSION: 1. The tip of the endotracheal tube is just above the javier. Repositioning is suggested. 2. The tip of the orogastric tube is at the thoracic inlet. The glue bone crusher image demonstrates the tube to be coiled in the nasopharynx. Repositioning is recommended. 3. Findings consistent with near complete atelectasis of the right lower lobe. 4. Left lower lobe atelectasis versus pneumonia. 4. Splenomegaly. 5. Large amount of stool throughout the colon. 6. These findings were discussed with Dr. Sagastume in the emergency room on 09/27/2024 at 12:40 PM. Electronically signed by: Sang Moscoso MD 09/27/2024 12:40 PM [facility]
--- NOTE | ~2024-09-27 | CT_ITS ---
EXAMINATION: CT HEAD WITHOUT CONTRAST CLINICAL INFORMATION: COMPARISON: None available. TECHNIQUE: Contiguous axial imaging was performed from the skull base to vertex without intravenous administration of contrast. This CT examination was performed using dose optimization techniques as appropriate, variously including the following: *Automated exposure control *Adjustment of mA and/or kV according to patient size (this includes techniques or standardized protocols for targeted exams where dose is matched to indication/reason for exam; i.e. extremities or head) *Use of iterative reconstruction technique FINDINGS: A note on the brim stitcher projection, the NG tube is noted to be coiled within the posterior nasopharynx, with the tip terminating just below the thoracic inlet. There is no evidence of intracranial hemorrhage or extra-axial fluid collection. There is no mass effect, or edema. No CT evidence of acute territorial infarct. Ventricles, sulci, and cisterns are normal in size and configuration for patient age. No hydrocephalus. No midline shift. Negative hyperdense MCA sign. Negative insular ribbon sign. No white matter abnormalities. Normal pituitary. There is mild cerebellar tonsillar ectopia without meeting criteria for a Chiari I information. Globes and orbital contents image normally. No extracranial soft tissue abnormalities. Fluid within the nasopharynx nonspecific in the setting of intubation. NG tube noted within the posterior nasopharynx, uncoiled. The paranasal sinuses, mastoid air cells, and tympanic cavities are normally aerated. No suspicious bony abnormalities. There are no acute fractures evident. CT/CT head/brain wo IV con IMPRESSION: 1. No acute intracranial abnormality. 2. Mild cerebellar tonsillar ectopia not meeting criteria for Chiari I malformation. 3. Patient is intubated. Enteric tube present, coiled in the posterior nasopharynx. The tip appears located within the trachea abutting the endotracheal tube. This should be repositioned. Electronically signed by: Adelso Munoz MD 09/27/2024 12:37 PM [facility] [place]
--- NOTE | ~2024-09-27 | XR_ITS ---
EXAMINATION: XR CHEST 1 VIEW HISTORY: intubation COMPARISON: Comparison is made with the prior examination dated 02/27/2024. FINDINGS: Two AP portable views of the chest performed at 10:30 and 10:34 AM are submitted. On the film taken at 10:30 AM, the endotracheal tube tip is approximately 5.2 cm above the javier. On the film taken at 10:34 AM, the tip of the endotracheal tube is approximately 2 cm above the javier. An additional tube is seen with its tip at the thoracic inlet. There are low lung volumes. There is opacification of the medial aspect of the left lung base, consistent with atelectasis or pneumonia. There is no pleural effusion, pneumothorax, or pulmonary vascular congestion. The heart is normal in size. The bones are intact. XR/XR chest 1V IMPRESSION: 1. The tip of the endotracheal tube on the final image is approximately 2 cm above the javier. 2. An additional tube is seen with its tip at the level of the thoracic inlet which may represent an orogastric tube. Clinical correlation is required. 3. Low lung volumes. Left lower lobe atelectasis versus pneumonia. Electronically signed by: Sang Moscoso MD 09/27/2024 11:05 AM [facility]
--- NOTE | ~2024-09-27 | XR_ITS ---
EXAMINATION: XR CHEST CLINICAL INFORMATION: NG position COMPARISON: September 27, 2024 at 11:02 AM. TECHNIQUE: Frontal view of the chest was obtained. FINDINGS: The NG tube is in the medial right lower hemithorax above the right hemidiaphragm. Endotracheal tube remains imaging position. Right-sided central venous line remains at the SVC. Patchy opacity right lower XR/XR chest 1V IMPRESSION: NG tube in the airway, likely right mainstem bronchus to the right middle lung lobe rhonchi resulting in partial atelectasis. Discussed with the medical team taking care of patient at the time of the interpretation, 1:39 PM. Electronically signed by: Sheldon Nunes MD 09/27/2024 01:41 PM [facility]
--- NOTE | ~2024-09-27 | XR_ITS ---
EXAMINATION: XR CHEST 1 VIEW HISTORY: line placement COMPARISON: Comparison is made with the prior examination performed earlier in the day at 10:30 AM. FINDINGS: A single AP portable view of the chest performed at 11:02 AM is submitted. An endotracheal tube is again noted. The tip is approximately 3.5 cm above the javier. An adjacent linear opacity may represent the tip of an orogastric tube at the level of the thoracic inlet. A right internal jugular central venous catheter is noted with its tip in the distal superior vena cava. The lateral aspect of the left lung base is excluded. Again seen is opacity in the retrocardiac left lower lobe, consistent with atelectasis or pneumonia. There is no pleural effusion, pneumothorax, or pulmonary vascular congestion. The heart is normal in size. The bones are intact. XR/XR chest 1V IMPRESSION: 1. The tip of the right internal jugular central venous catheter is in the distal superior vena cava. No pneumothorax. 2. ET tube in place. An adjacent linear opacity may represent an orogastric tube with its tip of the thoracic inlet. If an orogastric tube has been placed, repositioning is recommended. Electronically signed by: Sang Moscoso MD 09/27/2024 11:15 AM [facility] [place]
--- NOTE | ~2024-09-27 | CT_ITS ---
EXAMINATION: CT CHEST WITH IV CONTRAST, CT ABDOMEN PELVIS WITH IV CONTRAST INDICATION: ? pneumonia, abdominal pain. COMPARISON: None. TECHNIQUE: CT scan of the chest, abdomen and pelvis was performed following administration of 85 mL Omnipaque 350 using standard departmental protocol. Coronal and sagittal reformatted images were generated and reviewed. Oral contrast material was not administered at the request of the referring physician. This CT exam was performed with one or more of the following dose reduction techniques: automated exposure control, adjustment of the mA and/or kV according to patient size, use of iterative reconstruction technique. DLP: 1714 mGy-cm CHEST: LINES/TUBES: Endotracheal tube is noted with its tip just above the javier. An orogastric tube terminates at the thoracic inlet. A salt refiner image demonstrates the tube to be coiled in the nasopharynx. A left subclavian central venous catheter terminates in the superior vena cava. THYROID: The thyroid is unremarkable. LUNGS: There is near complete opacification of the right lower lobe with associated volume loss, compatible with atelectasis. Patchy airspace opacities seen in the left lower lobe, consistent with atelectasis or pneumonia. MEDIASTINUM: There is no mediastinal lymphadenopathy. ELIZABETH: There is no hilar lymphadenopathy. CARDIOVASCULATURE: The heart is normal in size. There is no pericardial effusion. The thoracic aorta is normal in caliber. DEGREE OF CORONARY CALCIFICATION: none PLEURA: There is no pleural effusion. No pneumothorax. MAIN AIRWAYS: The mainstem bronchi and proximal branches are patent. AXILLA: There is no axillary lymphadenopathy. SOFT TISSUES: Unremarkable. BONES: The bones are intact. ABDOMEN: LIVER: The liver is normal in size and contour. No liver mass is identified. The hepatic and portal veins are patent. GALLBLADDER / BILE DUCTS: The gallbladder is distended, without evidence of calcified stones. There is no intra or extrahepatic biliary ductal dilatation. SPLEEN: The spleen is enlarged. No focal splenic lesion is identified. PANCREAS: The pancreas is unremarkable in appearance. ADRENAL GLANDS: Within normal limits. KIDNEYS/RETROPERITONEUM: No renal calculi are identified. There is no hydronephrosis. No renal masses are identified. LYMPH NODES: No abdominal or pelvic lymphadenopathy. VASCULATURE: The abdominal aorta is normal in caliber. MESENTERY/PERITONEUM: No free fluid. No masses. There is no free intraperitoneal gas. STOMACH: The stomach is collapsed, limiting evaluation. SMALL BOWEL: The small bowel is normal in caliber. COLON: There is a large amount of stool throughout the colon. APPENDIX: Normal. URINARY BLADDER/PELVIC ORGANS: The urinary bladder is collapsed with Velásquez catheter. The prostate is normal in size. BONES / SOFT TISSUES: No suspicious bony or soft tissue abnormalities. CT/CT chest w IV con IMPRESSION: 1. The tip of the endotracheal tube is just above the javier. Repositioning is suggested. 2. The tip of the orogastric tube is at the thoracic inlet. The salt refiner image demonstrates the tube to be coiled in the nasopharynx. Repositioning is recommended. 3. Findings consistent with near complete atelectasis of the right lower lobe. 4. Left lower lobe atelectasis versus pneumonia. 4. Splenomegaly. 5. Large amount of stool throughout the colon. 6. These findings were discussed with Dr. Sagastume in the emergency room on 09/27/2024 at 12:40 PM. Electronically signed by: Sang Moscoso MD 09/27/2024 12:40 PM [facility] [place]
[2024-09-27 08:17] LABS: Glucose, Whole Blood 91 mg/dL (60-115)
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
[2024-09-27] MEDS: LORazepam 2 MG/ML VIAL IM (08:38)
[2024-09-27] MEDS: 0.9 % Sodium Chloride 1,000 ML 999 ML IVCONT ×2 (08:56→12:45)
[2024-09-27] MEDS: Piperacillin Sodium/Tazobactam 4.5 GM in 0.9 % Sodium Chloride 100 ML IV (08:56)
--- NOTE | 2024-09-27 09:00 | PC.NURSE ---
Ptthrashing uncontrollably on stretcher; pt medicated w/ ativan per orders; able to obtain vs; MD able to obtain 18 G US IV LUE; meds gv iv per orders; wounds to chrissie arms dressed per md
[2024-09-27 09:04] LABS: Venous Blood Gas Refer to POC result
[2024-09-27 09:05] LABS: Basophils Percent Auto 0.3 % (0-2); Eosinophils Absolute Auto 0.1 X10*3/uL (0.0-0.4); Eosinophils Percent Auto 0.5 % (0-4); Hematocrit 31.9 % (42.0-52.0); Hemoglobin 9.2 g/dl (14.0-18.0); Imm Gran Abs Auto 0.05 X10*3/uL (0.00-0.03); Imm Gran Pct Auto 0.4 % (0.0-0.4); Lymphocytes Absolute Auto 1.3 X10*3/uL (1.2-4.9); Lymphocytes Percent Auto 11.5 % (20-40); MANUAL DIFF FLAG NO; Mean Corpuscular HGB Conc 28.8 g/dl (31.0-36.0); Mean Corpuscular Hemoglobin 17.3 pg (27.0-33.0); Mean Platelet Volume 8.9 fL (9.4-12.4); Monocytes Absolute Auto 0.6 X10*3/uL (0.1-1.2); Neutrophils Absolute Auto 9.2 x10*3/uL (2.0-8.3); Neutrophils Percent Auto 82.3 % (45-73); Platelet Count 597 X10*3/uL (160-400); Red Blood Count 5.31 X10*6/uL (4.60-5.80); Red Cell Distribution Width 17.3 % (11.0-16.0); White Blood Count 11.2 X10*3/uL (4.8-10.8)
[2024-09-27 09:06] LABS: VBG Base Excess 2.8 mmol/L; VBG HCO3 24 mmol/L (22-26); VBG pCO2 29 mmHg; VBG pH 7.52 (7.32-7.43); VBG pO2 45 mmHg
[2024-09-27 09:08] LABS: Mean Corpuscular Volume 60.1 fL (80.0-98.0)
[2024-09-27] MEDS: Haloperidol Lactate 5 MG/ML VIAL IVPUSH (09:24)
[2024-09-27] MEDS: ondansetron HCL 4 MG/2 ML VIAL IVPUSH (09:24)
[2024-09-27 09:34] LABS: Lactic Acid 2.5 mmol/L (0.5-2.0)
[2024-09-27 09:42] LABS: Alanine Aminotransferase 14 U/L (0-40); Alkaline Phosphatase 101 U/L (39-117); Anion Gap 17 (12-20); Aspartate Amino Transferase 27 U/L (5-37); Bilirubin Total 0.3 mg/dL (0.0-1.0); Blood Urea Nitrogen 15 mg/dL (9-16); Calcium 10.2 mg/dL (8.4-10.2); Carbon Dioxide 23 mmol/L (22-29); Chloride 104 mmol/L (96-108); Creatinine Clr Calc Pharmacy 153.1; Estimated Glomerular Filt Rate > 60; Glucose Random 80 mg/dL (60-115); Sodium 140 mmol/L (135-145); Total Protein 8.9 g/dL (6.5-8.0)
[2024-09-27] MEDS: LORazepam 2 MG/ML VIAL 1 MG IVPUSH ×2 (09:48→09:55)
[2024-09-27] MEDS: Acetaminophen 1,000 MG/100 ML PIGGYBACK 400 MG IV (09:51)
[2024-09-27 09:52] LABS: Glucose, Whole Blood 115 mg/dL (60-115)
[2024-09-27] MEDS: Midazolam HCl 2 MG/2 ML VIAL IVPUSH (10:13)
[2024-09-27] MEDS: Succinylcholine Chloride 200 MG/10 ML VIAL 100 MG IVPUSH (10:21)
[2024-09-27] MEDS: Etomidate 20 MG/10 ML VIAL IVPUSH (10:21)
[2024-09-27] MEDS: Rocuronium Bromide 50 MG/5 ML VIAL IVPUSH ×2 (10:50→13:15)
[2024-09-27] MEDS: fentaNYL citrate/PF 100 MCG/2 ML VIAL 200 MCG IVPUSH ×2 (10:59→12:55)
[2024-09-27 11:01] LABS: Reflex Lactate? Lactic Acid Added
[2024-09-27] MEDS: fentaNYL citrate/NS 1,000 MCG/100 ML PLAST..BAG 2.5 MCG IVCONT ×2 (11:01→12:46)
[2024-09-27 11:21] LABS: Amphetamine Screen Urine Not Detected (Not Detect); Barbiturates, Urine Not Detected (Not Detect); Benzodiazepines Screen Urine Not Detected (Not Detect); Buprenorphine Scr Not Detected (Not Detect); Cannabinoid Screen Urine Not Detected (Not Detect); Cocaine Screen Urine POSITIVE (Not Detect); Fentanyl, urine POSITIVE (Not Detect); Methadone Screen, Urine Positive (Not Detect); Opiate Screen Urine Not Detected (Not Detect); Oxycodone Screen Urine Not Detected (Not Detect); Phencyclidine Screen Urine Not Detected (Not Detect)
[2024-09-27] MEDS: Midazolam HCl 2 MG/2 ML VIAL 4 MG IVPUSH ×2 (11:22→14:20)
[2024-09-27] MEDS: dexmedeTOMIDidine HCL/NS 400 MCG/100 ML INFUS..BTL 22.95 MCG IVCONT (11:32)
[2024-09-27] MEDS: iohexoL 350 MG/ML 100 ML INFUS..BTL IV (11:50)
[2024-09-27] MEDS: vancomycin HCL 1,500 MG in 0.9 % Sodium Chloride 500 ML 333.33 MG IV (12:14)
[2024-09-27] MEDS: propofoL 1,000 MG/100 ML VIAL 27.54 MG IVCONT ×4 (12:19→20:49)
[2024-09-27 12:31] LABS: ABG Base Excess -3.9 mmol/L; ABG HCO3 20 mmol/L (22-26); ABG pCO2 33 mmHg (32-45); ABG pH 7.38 (7.35-7.45); ABG pO2 148 mmHg (83-108)
[2024-09-27] MEDS: Norepinephrine Bitartrate/D5W 8 MG/250 ML PLAST..BAG 8.61 MG IVCONT (12:57)
[2024-09-27 13:01] LABS: ~Lactic Acid-LAB USE ONLY 0.5 mmol/L (0.5-2.0)
--- NOTE | 2024-09-27 13:12 | PC.NURSE ---
Precedex d/c'd d/t ?bradycardia. Fent increased to 150mcg/hr NGT removed d/t incorrect placement s/p chest xray
[2024-09-27] MEDS: Atropine Sulfate 1 MG/10 ML SYRINGE IVPUSH (13:15)
--- NOTE | 2024-09-27 13:16 | ECG_ITS ---
Test Reason : OD Blood Pressure : */* mmHG Vent. Rate : 80 BPM Atrial Rate : 80 BPM P-R Int : 166 ms QRS Dur : 90 ms QT Int : 372 ms P-R-T Axes : 72 32 36 degrees QTcB Int : 429 ms Normal sinus rhythm Nonspecific T wave abnormality Abnormal ECG When compared with ECG of 28-Feb-2024 00:57, No significant change was found Referred By: Frederic Allison Electronically Signed By: Jameson Bellamy
--- NOTE | 2024-09-27 13:20 | PC.NURSE ---
Pt bradycardic to 30 bpm; MD at bedside; precedex dc'd and 1 amp of atropine pushed per verbal order from dr marques; hr 68 at this time; bp 109/55; ekg completed
--- OUTSIDE RECORDS SUMMARY | 2024-09-27 13:30 | XMS_ITS | Clinical Summary ---
Author Organization [facility] Address [address] [place] [address] Phone Care Team Providers Care Intervention Specialist Name Role Phone Orlando Mahmood MD Primary Care Provider [phone] Allergies Active Allergy Reactions Criticality Noted Date Comments Haloperidol Cardiac Issue High 06/12/2024 PT reports tardive dyskinesia as a reaction to taking haldol. Pertussis Vaccine,Adsorbed Unknown High 06/12/2024 PT reports unaware of reaction type told my parent Medications methadone (DOLOPHINE) 10 mg/mL concentrated solution Take 17 mL (170 mg total) by mouth 1 (one) time each day. Max Daily Amount: 170 mg Active gabapentin (NEURONTIN) 600 mg tablet Take 1 tablet (600 mg total) by mouth 3 (three) times a day. Active gabapentin (NEURONTIN) 300 mg capsule Take 1 capsule (300 mg total) by mouth at bedtime. at bedtime 4 Active FLUoxetine (PROzac) 10 mg capsule Take 1 capsule (10 mg total) by mouth 1 (one) time each day. 4 Active cloNIDine (CATAPRES) 0.1 mg tablet Take 1 tablet (0.1 mg total) by mouth 2 (two) times a day. Active clonazePAM (KlonoPIN) 1 mg tablet Take 1 tablet (1 mg total) by mouth 3 (three) times a day. Max Daily Amount: 3 mg Active baclofen (LIORESAL) 10 mg tablet Take 1 tablet (10 mg total) by mouth 2 (two) times a day. 4 Active albuterol HFA (PROAIR HFA ; PROVENTIL HFA ; VENTOLIN HFA) 90 mcg/actuation inhaler Inhale 2 puffs by mouth every 6 (six) hours if needed for wheezing. 2 Active mirtazapine (REMERON) 7.5 mg tablet Take 1 tablet (7.5 mg total) by mouth at bedtime. at bedtime 4 Active QUEtiapine (SEROquel) 100 mg tablet Take 1 tablet (100 mg total) by mouth at bedtime. 4 Active silver sulfADIAZINE (SILVADENE, SSD) 1 % cream Apply topically 1 (one) time each day. 50 g 4 06/14/20 25 Active Active Problems Problem Noted Date Diagnosed Date Opioid use disorder, severe, dependence 06/12/20 24 Active intravenous drug use 06/12/2024 Resolved Problems Problem Noted Date Diagnosed Date Resolved Date Cellulitis and abscess of upper extremity 06/12/2024 06/14/2024 Lower extremity cellulitis 06/12/2024 1 08/14/2023 Microcytic anemia 06/12/2024 06/14/2024 Tobacco dependence due to cigarettes 06/12/2024 06/14/2024 Immunizations Name Administration Dates Next Due DTP 1990 [id number] (Pentacel) 2mo to less than 5yo 08/10/1991,1990,1990,1989 Diptheria & Tetanus, 6wks to less than 7yo 05/03/1995,11/19/1991,1990,1990 Influenza Quadravalent, MDCK , 0.5ml, preservative free (Flucelvax) 6mo and older 05/22/2020 Influenza trivalent, with preservative (Fluzone; Afluria) 6mo and older 07/06/2005,05/09/2004,07/19/2001,1999,05/11/1999,05/27/1998 MMR, measles mumps and rubel la Live (Priorix; M-M-R II) 12mo and older 08/10/1991 OPV 05/03/1995, 2,1990,1989 PPD Test 04/20/1991 Td Tetanus diptheria (Tdvax) 7yo and older 05/22/2020,03/19/2002 Surgical History Surgery Date Site/Laterality Comments TYMPANOSTOMY TUBE PLACEMENT PROCEDURE: HISTORICAL PE TUBES Medical History Medical History Date Comments Unspecified asthma(493.90) DX:Un specified asthma(493.90); COMMENT: infancy onset; hosp and in PICU as a baby; on advair 500/50 since ?2002 Varicella without mention of complication , DX:Varicella without mention of complication Closed fracture of shaft of clavicle , DX:Closed fracture of shaft of clavicle; COMMENT: R clavicle x 2 Closed fracture of shaft of radius with ulna 05/01/2004 DX:Closed fracture of shaft of radius with ulna; COMMENT: fracture distal radius and ulna [place] (myocardial infarction) ([facility]) 2018 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 Asthma Family History Medical History Relation Name Comments Heart attack Father Heart attack Maternal Grandfather Alzheimer's disease Maternal Grandmother Pneumonia Paternal Grandmother Relation Name Status Comments Father Maternal Grandfather Maternal Grandmother Mother Alive Paternal Grandfather Alive Paternal Grandmother Social History Tobacco Use Types Packs/Day Years Used Date Smoking Tobacco: Every Day Cigarettes Smokeless Tobacco: Current Alcohol Use Standard Drinks/Week Comments Never 0 (1 standard drink = 0.6 oz pur e alcohol) Interpersonal Safety Answer Date Record ed Physical Abuse 06/13/2024 Verbal Abuse 06/13/2024 Sex and Gender Information Value Date Recorded Sex Assigned at Male 06/12/2024 5:36 PM EST Legal Sex Male 9:04 PM EST Gender Identity Male 06/12/2024 5:36 PM EST Sexual Orientation Not on file Obstetrics History Last Filed Vital Signs Vital Sign Reading Time Taken Comments Blood Pressure 99/71 06/14/2024 2:49 PM EST Pulse 45 06/14/2024 2:49 PM EST Temperature 36.5 ??C (97.7 ??F) 06/14/2024 2:49 PM ES T Respiratory Rate 18 06/14/2024 2:49 PM EST Oxygen Saturation 100% 06/14/2024 7:37 AM EST Inhaled Oxygen Concentration - - Weight 86.2 kg (190 lb) 06/12/2024 10:40 AM EST Height 177.8 cm (5' 10 ) 06/12/2024 10:40 AM EST Body Mass Index 27.26 06/12/2024 10:40 AM EST Plan of Treatment Health Maintenance Due Date Last Done Comments Diabetes: Annual Foot Exam 2000 Diabetes: Annual Retina Eye Exam 2000 Hepatitis A Vaccines (1 of 2 - Risk 2-dose series) 2009 Hepatitis B Vaccines (1 of 3 - 19+ 3-dose series) 2009 Pneumococcal Vaccine: Pediatrics (0 to 5 Years) and At-Risk Patients (6 to 64 Years) (2 of 2 - PCV) 08/19/2018 08/19/2017 Depression Screening 07/03/2022 HIV Screening 07/03/2022 Hepatitis C Screening 07/03/2022 Social Influencers of Health Screening 07/03/2022 Diabetes: Annual Urine Albumin-Creatinine Ratio (uACR) 07/17/2022 COVID-19 Vaccine ( season) 2024 06/16/2022, 03/17/2022, 03/27/2021 Influenza Vaccine (#1) 2024 4, 05/22/2020, 05/14/2017, Additional history exists Diabetes: Blood Sugar Control Test (HGBA1C) 12/10/2024 06/12/2024 Cholesterol Screening (Lipid Panel) 05/22/2025 05/22/2020 Diabetes: Annual GFR (Glomerular Filtration Rate) 06/14/2025 06/14/2024, 06/12/2024, 06/12/2024, Additional history exists DTaP,Tdap,and Td Vaccines (8 - Td or Tdap) 05/22/2030 05/22/2020, 03/19/2002, 05/03/1995, Additional history exists HIB Vaccines Completed 08/10/1991, 08/01, 1990, Additional history exists MMR Vaccines Completed 08/10/1991 IPV Vaccines Completed 05/03/1995, 10/31, 08/10/1991, Additional history exists HPV Vaccines Aged Out No longer eligi ble based on patient's age to complete this topic Meningococcal ACWY Vaccine Aged Out N o longer eligible based on patient's age to complete this topic Meningococcal B Vacine Aged Out No lo nger eligible based on patient's age to complete this topic RSV Immunization Patients Under 20 months Aged Out No longer eligible based on patient's age to complete this topic Varicella Vaccines Aged Out No longer eligible based on patient's age to complete this topic Procedures Procedure Name Priority Date/Time Associated Diagnosis Comments BASIC METABOLIC PANEL Routine 06/14/2024 8:23 AM EST HEMOGLOBIN A1C Add-On 06/12/2024 6:46 PM EST LIPID PANEL Routine 05/22/2020 from Last 3 Months or Most Recently Relevant to Health Maintenance Results * (ABNORMAL) Basic metabolic panel (06/14/2024 8:23 AM EST) Sodium 143 133 - 145 mmol/L LAB CHEMISTRY METHOD 06/14/2024 9:25 AM [facility] Potassium 4.2 3.5 - 5.5 mmol/L LAB CHEMISTRY METHOD 06/14/2024 9:25 AM [facility] Chloride 112(H) 96 - 110 mmol/L LAB CHEMISTRY METHOD 06/14/2024 9:25 AM [facility] CO2 27 21 - 32 mmol/L LAB CHEMISTRY METHOD 06/14/2024 9:25 AM [facility] Anion Gap 4 3 - 11 LAB CHEMISTRY METHOD 06/14/2024 9:25 AM [facility] Glucose 81 70 - 100 mg/dL LAB CHEMISTRY METHOD 06/14/2024 9:25 AM [facility] BUN 6 5 - 25 mg/dL LAB CHEMISTRY METHOD 06/14/2024 9:25 AM [facility] Comment:Results verified by repeat testing Creatinine 0.68(L) 0.70 - 1.30 mg/dL LAB CHEMISTRY METHOD 06/14/2024 9:25 AM [facility] eGFR 125 >=60 mL/min/1. 73m2 LAB CHEMISTRY METHOD 06/14/2024 9:25 AM EST [facility] Comment:Calculation based on the??Chronic Kidney Disease Epidemiology Collaboration (CKD-EPI) equation refit??without adjustment for race. BUN/Creatinine Ratio 8.8 LAB CHEMISTRY METHOD 06/14/2024 9:25 AM [facility] Calcium 9.7 8.5 - 10.5 mg/dL LAB CHEMISTRY METHOD 06/14/2024 9:25 AM [facility] Blood Venous blood specimen / Unknown Venipuncture / Unknown 06/14/2024 8:23 AM EST 06/14/2024 8:43 AM EST Lupillo Mcbride MD LAB BLOOD ORDERABLES Final Resul t Performing Organization Address [facility]/ZIP Co de Phone Number [facility] [address] [place] [address], [place] [phone] * Hemoglobin A1c (06/12/2024 6:46 PM EST) Pathologist [facility] Hemoglobin A1C 6.3 <6.5 % LAB CHEMISTRY METHOD 06/13/2024 12:53 PM EST [facility] Mean Bld Glu Estim. 134 mg/dL LAB CHEMISTRY METHOD 06/13/2024 12:53 PM [facility] Blood Venous blood specimen / Unknown Venipuncture / Unknown 06/12/2024 6:46 PM EST 06/12/2024 6:51 PM EST Aaron Cooper MD LAB BLOOD ORDERABLES Final Result [facility] [address] [place] [address], [place] [phone] * (ABNORMAL) Lipid panel (05/22/2020) LDL/HDL Ratio 8(A) 0 - 4 Triglycerides 303(A) 0 - 150 mg/dL Cholesterol 186 0 - 200 mg/dL HDL 24(A) >=40 mg/dL LDL Cholesterol 102(A) 0 - 100 mg/dL Blood Venous blood specimen / Unknown us Historical Provider LAB BLOOD ORDERABLES Zulma l Result from Last 3 Months or Most Recently Relevant to Health Maintenance Additional Health Concerns Infection Onset Date Last Indicated MRSA 06/12/2024 06/12/2024 Insurance MEDICAID - [place] [facility] [email or web address] PLAN Advance Directives * Full Code - Default (Latest Code Status on File) Date Activated Date Inactivated Comments 06/12/2024 11:17 PM 06/14/2024 7:01 PM This is o rder is used when code status has not been discussed with the patient, or code status is otherwise unknown/unconfirmed To update the patient's code status, place a code status order. Do not modify or discontinue any currently active code status orders. Care Teams Intervention Specialist Relationship Specialty Start Date End Date Orlando Mahmood MD [address] [place] [id number] PCP - General Internal Medicine 06/12/24
--- NOTE | 2024-09-27 13:51 | PHA.MEDREC ---
Addendum entered by Chema Cook [facility] 09/27/24 14:26: MED REC CHECKED BY [facility] Original Note: Pharmacy Consult ? Medication Reconciliation Pharmacy has completed the medication reconciliation. Spoke with patients mother over the phone and she was able to confirm the patients medications except for the Mirtazapine and Quetiapine; looking in claims Mirtazipine was filled 08/03 for 90 days and Quetiapine was filled 06/13 for 90 days written as needed. The patients mother was not sure the last time her son took his medications.
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
[2024-09-27] MEDS: Cisatracurium Besylate 20 MG/10 ML VIAL 10 MG IVPUSH (14:30)
[2024-09-27] MEDS: Midazolam HCl/NS 50 MG/50 ML PLAST..BAG IVCONT ×2 (14:45→23:08)
--- NOTE | 2024-09-27 15:52 | P.HPCC_ITS ---
History of Present Illness Date of Service: 09/27/24 Chief Complaint: Encephalopathy 34-year-old gentleman with underlying history of polysubstance abuse, diabetes mellitus, MRSA cellulitis admitted on 09/27/2024 with polysubstance abuse requiring multiple sedative drips and intubation for airway protection. Also noted to have excoriations of bilateral arms. Review of Systems 2 Review of Systems: Yes unobtainable due to endotracheal tube PMFSH Past Medical History Medical History (Updated 09/27/24 @ 15:55 by Frederic Allison MD) Arm ulcer MRSA bacteremia Suicidal ideation Depression Diabetes Cocaine use with cocaine-induced disorder Opiate dependence, continuous Major depressive disorder, recurrent severe without psychotic features Depression Anxiety IVDU (intravenous drug user) Diabetes Asthma Family History Family History Father Heart disease Social History Social History Household Members: Family Household Members Other:: mother Housing: House Do you presently have visiting nurse or other home services: No Alcohol intake: unknown Comment: 1:1 sitter Patient Tobacco Use Status: Current everyday Tobacco user Tobacco use type: Cigarette Cigarette Packs Per Day: 1 Cigarettes Per Day: 20.0 Years Smoked: 15 e-Cigarette/Vaping Use: Former Use Second Hand Smoke Exposure: No Substance Use Type: Crack/Cocaine and Heroin Advance Directives: No Advance Directives Information Provided: Yes Advance Directives Date on File: 01/30/21 Do you have a plan to hurt others: No Plan service: No Current occupational status: unemployed Sexual orientation: Straight/Heterosexual Meds Allergies Allergy/AdvReac Type Severity Reaction Status Date / Time Pertussis Vaccines Allergy Mild HIVES Verified 09/27/24 08:23 [PERTUSSIS VACCINES] Active Medications: Current Medications Heparin Sodium (Porcine) (Heparin Sodium,Porcine 5,000 Unit/Ml Vial) 5,000 unit SUBCUT Q8H SUKHDEEP Fentanyl (Sublimaze/Ns) 1,000 mcg in 100 mls @ 0 mls/hr IVCONT .Q0M SUKHDEEP; Protocol Last Titration: 09/27/24 14:05 Dose: 175 mcg/hr, 17.5 mls/hr Dexmedetomidine HCl (Precedex) 400 mcg in 100 mls @ 0 mls/hr IVCONT .Q0M SUKHDEEP; Protocol Last Titration: 09/27/24 13:10 Dose: 0 mcg/kg/hr, 0 mls/hr Propofol (Diprivan) 1,000 mg in 100 mls @ 0 mls/hr IVCONT .Q0M SUKHDEEP; Protocol Last Admin: 09/27/24 13:43 Dose: 50 mcg/kg/min, 27.54 mls/hr Norepinephrine Bitartrate (Levophed) 8 mg in 250 mls @ 0 mls/hr IVCONT .Q0M SUKHDEEP; Protocol Last Titration: 09/27/24 13:16 Dose: 0.07 mcg/kg/min, 12.05 mls/hr Midazolam HCl (Versed) 50 mg in 50 mls @ 2 mls/hr IVCONT .Q24H SUKHDEEP; Protocol Last Admin: 09/27/24 14:45 Dose: 2 mg/hr, 2 mls/hr Naloxone HCl (Naloxone Hcl 0.4 Mg/Ml Vial) 0.2 mg IVPUSH Q2M PRN PRN Reason: Excessive sedation or RR < 8 Home Medications ?Medication ?Instructions ?Recorded ?Confirmed ?Last Taken ?Type methadone 10 mg/mL oral 170 mg PO DAILY 10/13/23 02/28/24 02/27/24 09:19 History concentrate (Methadone Intensol) clonazepam 1 mg tablet 1 mg PO TID 02/28/24 09/27/24 02/27/24 20:00 History clonidine HCl 0.1 mg tablet 0.1 mg PO TID 02/28/24 09/27/24 02/27/24 20:00 History gabapentin 300 mg capsule 300 mg PO BEDTIME 02/28/24 09/27/24 02/26/24 21:00 History gabapentin 600 mg tablet 600 mg PO TID 02/28/24 09/27/24 02/27/24 17:00 History mirtazapine 7.5 mg tablet 7.5 mg PO BEDTIME 02/28/24 09/27/24 02/26/24 21:00 History quetiapine 100 mg tablet 100 - 200 mg PO BEDTIME PRN 02/28/24 09/27/24 Unknown History Insomnia Physical Exam 2 Vital Signs: Vital Signs: Last Vital Signs Temp 100.2 F 09/27/24 09:58 Pulse 65 09/27/24 15:00 Resp 18 09/27/24 15:00 BP 102/60 09/27/24 15:00 Pulse Ox 100 09/27/24 15:00 O2 Del Method Mechanical Ventil ation 09/27/24 15:00 O2 Flow Rate 30 09/27/24 15:00 FiO2 30 09/27/24 13:05 BMI result Body Mass Index 29.0 Const: General: no acute distress and other (Sedated on ventilatory support) Eyes: Sclerae: sclerae normal EOM: EOMs intact bilaterally Neck: Neck: Yes no lymphadenopathy, Yes trachea midline and Yes supple Resp: Effort & Inspection: normal respiratory effort and no respiratory distress Auscultation: clear to auscultation bilaterally Cardio: Rate: regular rate Rhythm: regular rhythm Heart sounds: no gallops, no murmurs and no rubs GI: Palpation (GI): Soft to palpation and Other GI palpation findings present ( Nontender) Auscultation: normal bowel sounds Extrem: Other: Bilateral upper extremity excoriations General: Yes no pedal edema, No clubbing and No cyanosis Results Labs 09/27/24 08:49 09/27/24 08:49 Labs: Laboratory Results - last 24 hr 09/27/24 09/27/24 09/27/24 08:13 08:49 09:02 MCV 60.1 L MCH 17.3 L MCHC 28.8 L RDW 17.3 H Plt Count 597 H D MPV 8.9 L Immature Gran % (Auto) 0.4 Neut % (Auto) 82.3 H Lymph % (Auto) 11.5 L Hartley % (Auto) 5.0 Eos % (Auto) 0.5 Baso % (Auto) 0.3 Lymph # (Auto) 1.3 Hartley # (Auto) 0.6 Eos # (Auto) 0.1 Baso # (Auto) 0.0 Abs Immat Gran (auto) 0.05 H Absolute Neuts (auto) 9.2 H Absolute Nucleated RBC 0.000 Nucleated RBC % (auto) 0.0 O2 Saturation ABG pH at Pt Temp ABG pCO2 at Pt Temp ABG pO2 at Pt Temp ABG HCO3 ABG Base Excess (Actual) VBG pH 7.52 H VBG pCO2 29 VBG pO2 45 VBG HCO3 24 VBG O2 Saturation 78.0 VBG Base Excess 2.8 Anion Gap 17 Estim Creat Clear Calc 153.1 Estimated GFR > 60 POC Glucose 91 Random Glucose 80 Lactic Acid 2.5 H* Lactic Acid F/U @ 2Hr Calcium 10.2 Total Bilirubin 0.3 AST 27 ALT 14 Alkaline Phosphatase 101 Total Protein 8.9 H Albumin 4.0 Urine Opiates Screen Ur Buprenorphine Scrn Ur Oxycodone Screen Urine Methadone Screen Urine Fentanyl Screen Ur Barbiturates Screen Ur Phencyclidine Scrn Ur Amphetamines Screen U Benzodiazepines Scrn Urine Cocaine Screen U Marijuana (THC) Screen 09/27/24 09/27/24 09/27/24 09:43 10:56 12:27 MCV MCH MCHC RDW Plt Count MPV Immature Gran % (Auto) Neut % (Auto) Lymph % (Auto) Hartley % (Auto) Eos % (Auto) Baso % (Auto) Lymph # (Auto) Hartley # (Auto) Eos # (Auto) Baso # (Auto) Abs Immat Gran (auto) Absolute Neuts (auto) Absolute Nucleated RBC Nucleated RBC % (auto) O2 Saturation 100.0 ABG pH at Pt Temp 7.38 ABG pCO2 at Pt Temp 33 ABG pO2 at Pt Temp 148 H ABG HCO3 20 L ABG Base Excess (Actual) -3.9 VBG pH VBG pCO2 VBG pO2 VBG HCO3 VBG O2 Saturation VBG Base Excess Anion Gap Estim Creat Clear Calc Estimated GFR POC Glucose 115 Random Glucose Lactic Acid Lactic Acid F/U @ 2Hr Calcium Total Bilirubin AST ALT Alkaline Phosphatase Total Protein Albumin Urine Opiates Screen Not Detected Ur Buprenorphine Scrn Not Detected Ur Oxycodone Screen Not Detected Urine Methadone Screen Positive H Urine Fentanyl Screen POSITIVE H Ur Barbiturates Screen Not Detected Ur Phencyclidine Scrn Not Detected Ur Amphetamines Screen Not Detected U Benzodiazepines Scrn Not Detected Urine Cocaine Screen POSITIVE H U Marijuana (THC) Screen Not Detected 09/27/24 12:38 MCV MCH MCHC RDW Plt Count MPV Immature Gran % (Auto) Neut % (Auto) Lymph % (Auto) Hartley % (Auto) Eos % (Auto) Baso % (Auto) Lymph # (Auto) Hartley # (Auto) Eos # (Auto) Baso # (Auto) Abs Immat Gran (auto) Absolute Neuts (auto) Absolute Nucleated RBC Nucleated RBC % (auto) O2 Saturation ABG pH at Pt Temp ABG pCO2 at Pt Temp ABG pO2 at Pt Temp ABG HCO3 ABG Base Excess (Actual) VBG pH VBG pCO2 VBG pO2 VBG HCO3 VBG O2 Saturation VBG Base Excess Anion Gap Estim Creat Clear Calc Estimated GFR POC Glucose Random Glucose Lactic Acid Lactic Acid F/U @ 2Hr 0.5 Calcium Total Bilirubin AST ALT Alkaline Phosphatase Total Protein Albumin Urine Opiates Screen Ur Buprenorphine Scrn Ur Oxycodone Screen Urine Methadone Screen Urine Fentanyl Screen Ur Barbiturates Screen Ur Phencyclidine Scrn Ur Amphetamines Screen U Benzodiazepines Scrn Urine Cocaine Screen U Marijuana (THC) Screen Imaging Radiologist's Impressions: Impressions Abdomen/Pelvis CT 09/27/24 08:51 IMPRESSION: 1. The tip of the endotracheal tube is just above the javier. Repositioning is suggested. 2. The tip of the orogastric tube is at the thoracic inlet. The renewable energy project manager image demonstrates the tube to be coiled in the nasopharynx. Repositioning is recommended. 3. Findings consistent with near complete atelectasis of the right lower lobe. 4. Left lower lobe atelectasis versus pneumonia. 4. Splenomegaly. 5. Large amount of stool throughout the colon. 6. These findings were discussed with Dr. Sagastume in the emergency room on 09/27/2024 at 12:40 PM. Electronically signed by: Sang Moscoso MD 09/27/2024 12:40 PM [employer] RP Cervical Spine CT 09/27/24 08:51 IMPRESSION: 1. No CT evidence for acute cervical spine injury or fracture. 2. Endotracheal tube in good position. 3. Orogastric tube loops in the posterior nasopharynx, with the tip in the distal trachea immediately abutting the endotracheal tube. This device should be repositioned. Electronically signed by: Adelso Munoz MD 09/27/2024 12:46 PM EST RP Chest X-Ray 09/27/24 10:26 IMPRESSION: 1. The tip of the endotracheal tube on the final image is approximately 2 cm above the javier. 2. An additional tube is seen with its tip at the level of the thoracic inlet which may represent an orogastric tube. Clinical correlation is required. 3. Low lung volumes. Left lower lobe atelectasis versus pneumonia. Electronically signed by: Sang Moscoso MD 09/27/2024 11:05 AM EST RP Chest X-Ray 09/27/24 11:00 IMPRESSION: 1. The tip of the right internal jugular central venous catheter is in the distal superior vena cava. No pneumothorax. 2. ET tube in place. An adjacent linear opacity may represent an orogastric tube with its tip of the thoracic inlet. If an orogastric tube has been placed, repositioning is recommended. Electronically signed by: Sang Moscoso MD 09/27/2024 11:15 AM EST RP Chest CT 09/27/24 11:39 IMPRESSION: 1. The tip of the endotracheal tube is just above the javier. Repositioning is suggested. 2. The tip of the orogastric tube is at the thoracic inlet. The renewable energy project manager image demonstrates the tube to be coiled in the nasopharynx. Repositioning is recommended. 3. Findings consistent with near complete atelectasis of the right lower lobe. 4. Left lower lobe atelectasis versus pneumonia. 4. Splenomegaly. 5. Large amount of stool throughout the colon. 6. These findings were discussed with Dr. Sagastume in the emergency room on 09/27/2024 at 12:40 PM. Electronically signed by: Sang Moscoso MD 09/27/2024 12:40 PM EST RP Head CT 09/27/24 11:39 IMPRESSION: 1. No acute intracranial abnormality. 2. Mild cerebellar tonsillar ectopia not meeting criteria for Chiari I malformation. 3. Patient is intubated. Enteric tube present, coiled in the posterior nasopharynx. The tip appears located within the trachea abutting the endotracheal tube. This should be repositioned. Electronically signed by: Adelso Munoz MD 09/27/2024 12:37 PM EST RP Chest X-Ray 09/27/24 12:48 IMPRESSION: NG tube in the airway, likely right mainstem bronchus to the right middle lung lobe rhonchi resulting in partial atelectasis. Discussed with the medical team taking care of patient at the time of the interpretation, 1:39 PM. Electronically signed by: Sheldon Nunes MD 09/27/2024 01:41 PM EST RP Assessment and Plan (1) Polysubstance abuse: Status: Acute (2) Overdose: Qualifiers: Encounter type: initial encounter Injury intent: accidental or unintentional Qualified Code(s): T50.901A - Poisoning by unspecified drugs, medicaments and biological substances, accidental (unintentional), initial encounter Status: Acute (3) Acute encephalopathy: Status: Acute (4) Diabetes: Status: Acute Plan Assessment: 34-year-old gentleman with underlying diabetes mellitus and prior history of MRSA cellulitis admitted with overdose on the background of polysubstance abuse requiring multiple sedative drips and intubation for airway protection Plan: Neuro: Acute encephalopathy secondary to polysubstance abuse, continue to titrate off sedative drips as tolerated. Cardiac: No acute issues. Pulmonary: Intubated for airway protection, continue to titrate off as tolerated. Renal: No acute issues. Endo: No acute issues. Underlying history of diabetes mellitus, sliding scale insulin protocol. GI: No acute issues. ID: Prior history of MRSA cellulitis, now with bilateral upper extremity excretions, empiric coverage with vancomycin. Heme/Onc: No acute issues. Psych: No acute issues. Miscellaneous: No acute issues. Prophylaxis: Heparin, famotidine Diet: NPO Critical care time spent: 60 minutes
--- NOTE | 2024-09-27 16:12 | PHA.PROG ---
Admission Date/Time: September 27, 2024 12:08 Indication: Other Weight in k.8 kg Adjusted body weight in Kg: Shiloh body weight in Kg: Obesity Dosing Indication % IBW: BMI 29 Serum Creatinine - Last 168 Hours 09/27/24 08:49 Creatinine 0.77 Estimated CrCl and GFR - Last 168 Hours 09/27/24 08:49 Estim Creat Clear Calc 153.1 Estimated GFR > 60 Vancomycin Loading Dose: 1500mg x1 Current Vancomycin Dosing Regimen: 1000mg Q8H Vancomycin Monitoring using AUC goal of 400 - 600 range with trough as surrogate marker: 552 Date and Time for next Vancomycin Level to be drawn: 09/28 @1900 Pharmacist Comments on Vancomycin Plan: Patient was loaded with wrong dose so starting off with 1000mg Q8H as renal function appears to be stable so targeting a little higher trough since load was incorrect. Predicted trough 18.3. To be adjusted per renal fx in the am if dosing is too aggressive and per trough in the pm. Vancomycin dosing will take advantage of [employer] as a clinical decision support tool that uses Bayesian modeling to calculate individual patient's pharmacokinetic parameters and forecast the patient's drug concentration time course with the target goal AUC 24 range of 400 - 600 mg/L/hr.
[2024-09-27 16:45] LABS: Glucose, Whole Blood 96 mg/dL (60-115)
--- NOTE | 2024-09-27 18:06 | HO.SKINPHOTO ---
Location: Category: Stage: Length: Width: Depth: cm Category: Stage: Length: Width: Depth: cm Location: Category: Stage: Length: Width: Depth: cm Location: Category: Stage: Length: Width: Depth: cm Location: Category: Stage: Length: Width: Depth: cm Location: Category: Stage: Length: Width: Depth: cm
--- NOTE | 2024-09-27 18:16 | PC.NURSE ---
Arrived to floor intubated with sedation. Patient not tolerating vent; IV push versed given with little affect. IV push nimbex given with positive affect. Patient became restless again, Versed drip started. Multiple wounds noted, pics uploaded to plant production manager. See skin notes
[2024-09-27] MEDS: fentaNYL citrate/NS 1,000 MCG/100 ML PLAST..BAG 20 MCG IVCONT ×2 (18:24→23:10)
[2024-09-27] MEDS: Cisatracurium Besylate 100 MG in 0.9 % Sodium Chloride 40 ML 5.51 MG IVCONT (20:13)
[2024-09-27] MEDS: vancomycin HCL 1,000 MG in 0.9 % Sodium Chloride 250 ML 270 MG IV (20:33)
[2024-09-27] MEDS: Chlorhexidine Gluc Oral Rinse 15 ML MOUTHWASH BUCCAL (20:33)
[2024-09-27] MEDS: Heparin Sodium,Porcine 5,000 UNIT/ML VIAL 5000 UNIT SUBCUT (20:35)
[2024-09-27 22:54] LABS: Glucose, Whole Blood 77 mg/dL (60-115)
[2024-09-28] VITALS (38 sets, daily range): BP systolic 112–168; BP diastolic 60–87; PULSE 54–91; RESP 15–22; TEMP 35–37.3; O2SAT 95–100; BMI 34.9
[2024-09-28] MEDS: propofoL 1,000 MG/100 ML VIAL 27.54 MG IVCONT ×7 (00:24→21:42)
[2024-09-28] MEDS: Cisatracurium Besylate 100 MG in 0.9 % Sodium Chloride 40 ML 5.51 MG IVCONT (00:52)
[2024-09-28] MEDS: fentaNYL citrate/NS 1,000 MCG/100 ML PLAST..BAG 20 MCG IVCONT ×5 (04:03→22:55)
[2024-09-28] MEDS: vancomycin HCL 1,000 MG in 0.9 % Sodium Chloride 250 ML 270 MG IV ×2 (04:11→12:11)
[2024-09-28] MEDS: Heparin Sodium,Porcine 5,000 UNIT/ML VIAL 5000 UNIT SUBCUT ×3 (04:13→21:27)
[2024-09-28 04:16] LABS: Glucose, Whole Blood 82 mg/dL (60-115)
[2024-09-28 05:17] LABS: VBG Base Excess -1.9 mmol/L; VBG HCO3 23 mmol/L (22-26); VBG pCO2 39 mmHg; VBG pH 7.36 (7.32-7.43); VBG pO2 55 mmHg
[2024-09-28 05:18] LABS: Venous Blood Gas Refer to POC result
[2024-09-28 05:42] LABS: MANUAL DIFF FLAG NO
[2024-09-28 05:45] LABS: Basophils Percent Auto 0.2 % (0-2); Eosinophils Percent Auto 0.5 % (0-4); Hematocrit 26.6 % (42.0-52.0); Hemoglobin 7.6 g/dl (14.0-18.0); Imm Gran Abs Auto 0.05 X10*3/uL (0.00-0.03); Imm Gran Pct Auto 0.6 % (0.0-0.4); Lymphocytes Absolute Auto 1.5 X10*3/uL (1.2-4.9); Lymphocytes Percent Auto 16.8 % (20-40); Mean Corpuscular HGB Conc 28.6 g/dl (31.0-36.0); Mean Corpuscular Hemoglobin 17.6 pg (27.0-33.0); Mean Platelet Volume 9.1 fL (9.4-12.4); Monocytes Absolute Auto 0.8 X10*3/uL (0.1-1.2); Monocytes Percent Auto 8.9 % (2-11); Neutrophils Absolute Auto 6.3 x10*3/uL (2.0-8.3); Platelet Count 390 X10*3/uL (160-400); Red Blood Count 4.31 X10*6/uL (4.60-5.80); Red Cell Distribution Width 16.9 % (11.0-16.0); White Blood Count 8.6 X10*3/uL (4.8-10.8)
[2024-09-28 05:46] LABS: Mean Corpuscular Volume 61.7 fL (80.0-98.0)
[2024-09-28 05:47] LABS: Glucose, Whole Blood 89 mg/dL (60-115)
[2024-09-28 06:01] LABS: Alanine Aminotransferase 11 U/L (0-40); Albumin Level 2.9 g/dL (3.5-5.0); Alkaline Phosphatase 81 U/L (39-117); Anion Gap 11 (12-20); Aspartate Amino Transferase 23 U/L (5-37); Bilirubin Total 0.1 mg/dL (0.0-1.0); Blood Urea Nitrogen 7 mg/dL (9-16); Calcium 8.3 mg/dL (8.4-10.2); Carbon Dioxide 20 mmol/L (22-29); Chloride 113 mmol/L (96-108); Estimated Glomerular Filt Rate > 60; Glucose Random 79 mg/dL (60-115); Magnesium 1.8 mg/dL (1.6-2.6); Phosphorus 3.1 mg/dL (2.7-4.5); Potassium 3.4 mmol/L (3.3-5.1); Sodium 141 mmol/L (135-145); Total Protein 6.5 g/dL (6.5-8.0)
--- NOTE | 2024-09-28 06:25 | PC.NURSE ---
care assumed 7pm..remains intubated/vcv vent support...propofol 50 mcg/kg/min/versed 2 mg/hr/fentanyl 200 mcg/hr...remained with forceful cough effort and weakly rogers but not to command..vent dysynchrony...per provider started nimbex drip @ 2 mcg/kg/min...return of vent synchrony...remains with tof 4/4 and assists vent to rate up to 22...provider aware..levophed drip weaned off overnight ..bp stable...ladonnadeda bo with 50--90 cc/hr yellow urine...wounds to both forearms remain wrapped...mother provided with update via phone this am
[2024-09-28] MEDS: Potassium Chloride/H20 40 MEQ/100 ML PIGGYBACK 50 MEQ IV (08:11)
[2024-09-28] MEDS: Albumin Human 25 % 100 ML IV ×3 (08:11→19:39)
[2024-09-28] MEDS: Chlorhexidine Gluc Oral Rinse 15 ML MOUTHWASH BUCCAL ×3 (08:12→21:27)
[2024-09-28] MEDS: Famotidine/PF 20 MG/2 ML VIAL IVPUSH (08:12)
[2024-09-28 11:24] LABS: Glucose, Whole Blood 72 mg/dL (60-115)
--- NOTE | 2024-09-28 11:31 | MHC.CLN ---
PT IS INTUBATED AND SEDATED DISCUSSED AT ROUNDS WITH MD CURRENTLY NPO IF TF NEEDED; RECOMMEND PROMOTE AT MAX GOAL RATE 55ML/HR WITH 240ML FWF Q 4 HRS TO PROVIDE 1320KCALS (2047KCALS WITH SEDATION; 23KCALS/KG), 82.5G PROTEIN, 2547ML TOTAL WATER FROM FORMULA AND FLUSHES (29ML/KG) MONITOR TOLERANCE AND LYTES FOLLOWING FOR DIET ADVANCEMENT SEE ALSO FULL CLINICAL NUTRITION ASSESSMENT
--- NOTE | 2024-09-28 12:12 | P.PNCC_ITS ---
Subjective Subjective Date of Service: 09/28/24 Interval History: 34-year-old gentleman with underlying history of polysubstance abuse, diabetes mellitus, MRSA cellulitis admitted on 09/27/2024 with polysubstance abuse requiring multiple sedative drips and intubation for airway protection. Also noted to have excoriations of bilateral arms. No events overnight. Critical Care Time (minutes): 45 Physical Exam 2 Vital Signs: Vital Signs: Last Vital Signs Temp 97.4 F 09/28/24 08:00 Pulse 54 09/28/24 11:00 Resp 18 09/28/24 11:00 BP 115/68 09/28/24 11:00 Pulse Ox 100 09/28/24 11:00 O2 Del Method Mechanical Ventil ation 09/28/24 11:00 O2 Flow Rate 30 09/27/24 15:00 FiO2 09/28/24 11:49 BMI result Body Mass Index 34.9 Const: General: no acute distress and other (Sedated on ventilatory support) Eyes: Sclerae: sclerae normal Neck: Neck: Yes no lymphadenopathy, Yes trachea midline and Yes supple Resp: Auscultation: clear to auscultation bilaterally Cardio: Rate: regular rate Rhythm: regular rhythm Heart sounds: no gallops, no murmurs and no rubs GI: Palpation (GI): Soft to palpation and Other GI palpation findings present ( Nontender) Auscultation: normal bowel sounds Extrem: General: Yes no pedal edema, No clubbing and No cyanosis Objective Data Labs 09/28/24 05:08 09/28/24 05:08 Labs: Laboratory Results - last 24 hr 09/27/24 09/27/24 09/27/24 12:27 12:38 16:42 WBC RBC Hgb Hct MCV MCH MCHC RDW Plt Count MPV Immature Gran % (Auto) Neut % (Auto) Lymph % (Auto) [place] % (Auto) Eos % (Auto) Baso % (Auto) Lymph # (Auto) [place] # (Auto) Eos # (Auto) Baso # (Auto) Abs Immat Gran (auto) Absolute Neuts (auto) Absolute Nucleated RBC Nucleated RBC % (auto) O2 Saturation 100.0 ABG pH at Pt Temp 7.38 ABG pCO2 at Pt Temp 33 ABG pO2 at Pt Temp 148 H ABG HCO3 20 L ABG Base Excess (Actual) -3.9 VBG pH VBG pCO2 VBG pO2 VBG HCO3 VBG O2 Saturation VBG Base Excess Sodium Potassium Chloride Carbon Dioxide Anion Gap BUN Creatinine Estim Creat Clear Calc Estimated GFR POC Glucose 96 Random Glucose Lactic Acid F/U @ 2Hr 0.5 Calcium Phosphorus Magnesium Total Bilirubin AST ALT Alkaline Phosphatase Total Protein Albumin 09/27/24 09/28/24 09/28/24 22:50 04:08 05:08 WBC 8.6 RBC 4.31 L Hgb 7.6 L Hct 26.6 L MCV 61.7 L MCH 17.6 L MCHC 28.6 L RDW 16.9 H Plt Count 390 D MPV 9.1 L Immature Gran % (Auto) 0.6 H Neut % (Auto) 73.0 Lymph % (Auto) 16.8 L [place] % (Auto) 8.9 Eos % (Auto) 0.5 Baso % (Auto) 0.2 Lymph # (Auto) 1.5 [place] # (Auto) 0.8 Eos # (Auto) 0.0 Baso # (Auto) 0.0 Abs Immat Gran (auto) 0.05 H Absolute Neuts (auto) 6.3 Absolute Nucleated RBC 0.000 Nucleated RBC % (auto) 0.0 O2 Saturation ABG pH at Pt Temp ABG pCO2 at Pt Temp ABG pO2 at Pt Temp ABG HCO3 ABG Base Excess (Actual) VBG pH VBG pCO2 VBG pO2 VBG HCO3 VBG O2 Saturation VBG Base Excess Sodium 141 Potassium 3.4 Chloride 113 H Carbon Dioxide 20 L Anion Gap 11 L BUN 7 L Creatinine 0.61 Estim Creat Clear Calc 212.0 Estimated GFR > 60 POC Glucose 77 82 Random Glucose 79 Lactic Acid F/U @ 2Hr Calcium 8.3 L D Phosphorus 3.1 Magnesium 1.8 Total Bilirubin 0.1 AST 23 ALT 11 Alkaline Phosphatase 81 Total Protein 6.5 Albumin 2.9 L 09/28/24 09/28/24 09/28/24 05:13 05:44 11:19 WBC RBC Hgb Hct MCV MCH MCHC RDW Plt Count MPV Immature Gran % (Auto) Neut % (Auto) Lymph % (Auto) [place] % (Auto) Eos % (Auto) Baso % (Auto) Lymph # (Auto) [place] # (Auto) Eos # (Auto) Baso # (Auto) Abs Immat Gran (auto) Absolute Neuts (auto) Absolute Nucleated RBC Nucleated RBC % (auto) O2 Saturation ABG pH at Pt Temp ABG pCO2 at Pt Temp ABG pO2 at Pt Temp ABG HCO3 ABG Base Excess (Actual) VBG pH 7.36 VBG pCO2 39 VBG pO2 55 VBG HCO3 23 VBG O2 Saturation 84.0 VBG Base Excess -1.9 Sodium Potassium Chloride Carbon Dioxide Anion Gap BUN Creatinine Estim Creat Clear Calc Estimated GFR POC Glucose 89 72 Random Glucose Lactic Acid F/U @ 2Hr Calcium Phosphorus Magnesium Total Bilirubin AST ALT Alkaline Phosphatase Total Protein Albumin Microbiology Microbiology Results: Microbiology 09/27/24 08:49 Blood - Venous Blood Culture - Preliminary No growth after 24 hours. 09/27/24 08:49 Blood - Venous Blood Culture - Preliminary No growth after 24 hours. Progress Note: A&P Assessment and plan (1) Polysubstance abuse: Status: Acute (2) Acute encephalopathy: Status: Acute Plan Assessment: 34-year-old gentleman with underlying diabetes mellitus and prior history of MRSA cellulitis admitted with overdose on the background of polysubstance abuse requiring multiple sedative drips and intubation for airway protection Plan: Neuro: Acute encephalopathy secondary to polysubstance abuse, continue to titrate off sedative drips as tolerated. Cardiac: No acute issues. Pulmonary: Intubated for airway protection, continue to titrate off as tolerated. Renal: No acute issues. Endo: No acute issues. Underlying history of diabetes mellitus, sliding scale insulin protocol. GI: No acute issues. ID: Prior history of MRSA cellulitis, now with bilateral upper extremity excretions, empiric coverage with vancomycin. Heme/Onc: No acute issues. Psych: No acute issues. Miscellaneous: No acute issues. Prophylaxis: Heparin, famotidine Diet: NPO Critical care time spent: 45 minutes Quality Stroke Does the patient have a stroke diagnosis?: No VTE Prior VTE?: No VTE Risk Level:: Medical - moderate - high VTE Device Contraindication: Treatment Not Indicated VTE Drug Contraindication: N/A - Med Ordered
--- NOTE | 2024-09-28 13:52 | MHC.CM.PN ---
Addendum entered by Radha Dallas 09/28/24 14:18: NOTED TO HAVE METHADONE DOSING THROUGH [facility] IN PAST VISIT. Original Note: PT REMAINS IN ICU, INTUBATED AND SEDATED. CM GATHERED HX FROM CHART, PT LIVES WITH HIS MOTHER, FUNCTIONALLY INDEPENDENT. PAST ADMISSION, STATES HIS MOTHER IS HCP BUT NO FORM ON FILE. CM WILL CONTINUE TO FOLLOW AND GLEAN MORE INFORMATION WHEN PT ABLE TO PARTICIPATE.
[2024-09-28 14:07] LABS: MANUAL DIFF FLAG NO
[2024-09-28 14:12] LABS: Basophils Percent Auto 0.1 % (0-2); Eosinophils Percent Auto 0.1 % (0-4); Hematocrit 25.7 % (42.0-52.0); Hemoglobin 7.4 g/dl (14.0-18.0); Imm Gran Abs Auto 0.05 X10*3/uL (0.00-0.03); Imm Gran Pct Auto 0.5 % (0.0-0.4); Lymphocytes Absolute Auto 1.3 X10*3/uL (1.2-4.9); Lymphocytes Percent Auto 14.2 % (20-40); Mean Corpuscular HGB Conc 28.8 g/dl (31.0-36.0); Mean Corpuscular Hemoglobin 17.5 pg (27.0-33.0); Mean Platelet Volume 8.9 fL (9.4-12.4); Monocytes Absolute Auto 0.8 X10*3/uL (0.1-1.2); Monocytes Percent Auto 8.8 % (2-11); Neutrophils Absolute Auto 7.1 x10*3/uL (2.0-8.3); Neutrophils Percent Auto 76.3 % (45-73); Platelet Count 387 X10*3/uL (160-400); Red Blood Count 4.23 X10*6/uL (4.60-5.80); Red Cell Distribution Width 17.1 % (11.0-16.0); White Blood Count 9.3 X10*3/uL (4.8-10.8)
[2024-09-28 14:14] LABS: Mean Corpuscular Volume 60.8 fL (80.0-98.0)
[2024-09-28] MEDS: Midazolam HCl/NS 50 MG/50 ML PLAST..BAG IVCONT (14:46)
[2024-09-28 18:07] LABS: Glucose, Whole Blood 55 mg/dL (60-115)
[2024-09-28] MEDS: Dextrose 50 % 25 GM/50 ML SYRINGE IVPUSH (18:14)
[2024-09-28 19:06] LABS: Glucose, Whole Blood 133 mg/dL (60-115)
--- NOTE | 2024-09-28 19:40 | PC.NURSE ---
N- patient taken off Nimbex today, continues on Propofol, Versed and Fentanyl, Please see MAR. Patient opens eyes to verbal stimuli and nods appropriately.? CV- patient off pressors, BP stable and no edema noted.? GI- No BM noted, NPO no OG tube in place for now. - Velásquez in place draining clear yellow urine. Wounds to forearms changed by wound nurse, AG applied, DSD in place Patients POC decreased this evening to 55, 1 amp D50 given and increased to 130?s
--- NOTE | 2024-09-28 19:41 | HO.WOUND ---
Wound Consult: Initial 34yr old?male admitted to [facility] on 09/27/24- See progress notes and H&P for detailed history.? Wound consult placed for Bilateral Arms.? Patient intubated and remains in ICU level of care. ? Bilateral Forearm Etiology: Ulceration secondary to IVDU suspect Xylazine wounds - ??Present on Admission Wound Bed: pink moist wound beds with yellow slough noted - scattered areas of dry thick eschar Drainage / Odor: yellow nguyen malodor noted Edges: ? irregular and unattached Corinne wound: ?pink erythema No Induration, Fluctuance or Warmth noted Goals of Treatment: ? Durafiber AG for moisture management and odor control Recommendations: 1. Turn and Reposition every 2 hours and as needed for patient comfort.? Use pillows or wedges to support off loading positions. 2. Off Load all bony prominences with use of pillows and heel boots if needed.? Apply Preventative foams where needed. ? 3. Monitor for incontinence and moisture control, use barrier creams when needed for prevention and treatment. 4. Provide adequate and supplemental nutrition.? 5. Continue low air loss mattress. / Isotour bed in use 6. When applicable maintain blood glucose levels per Providers order. 7. Bilateral Forearm - Cleanse with NS moist gauze, pat dry. Apply durafiber AG to wound bed cover with dry gauze ABD pad and wrap. Change every other day. Re-consult wound care Nurse for wound deterioration or wound changes.
[2024-09-28 20:48] LABS: Vancomycin Random 8.4 mcg/mL (15-20)
[2024-09-28] MEDS: vancomycin HCL 1,500 MG in 0.9 % Sodium Chloride 500 ML 333.33 MG IV (21:31)
[2024-09-28 23:32] LABS: Glucose, Whole Blood 59 mg/dL (60-115)
[2024-09-28] MEDS: Dextrose 5 % and Lactated Ring 1,000 ML 100 ML IVCONT (23:47)
[2024-09-29] VITALS (25 sets, daily range): BP systolic 112–140; BP diastolic 57–86; PULSE 70–93; RESP 14–80; TEMP 35–37.3; O2SAT 90–100; BMI 34.7
[2024-09-29] MEDS: Albumin Human 25 % 100 ML IV (01:04)
[2024-09-29] MEDS: propofoL 1,000 MG/100 ML VIAL 27.54 MG IVCONT ×2 (01:25→03:53)
[2024-09-29 02:38] LABS: Glucose, Whole Blood 93 mg/dL (60-115)
[2024-09-29] MEDS: Piperacillin Sodium/Tazobactam 4.5 GM in 0.9 % Sodium Chloride 100 ML IV ×4 (03:00→21:46)
[2024-09-29] MEDS: fentaNYL citrate/NS 1,000 MCG/100 ML PLAST..BAG 20 MCG IVCONT (03:50)
[2024-09-29] MEDS: Heparin Sodium,Porcine 5,000 UNIT/ML VIAL 5000 UNIT SUBCUT ×3 (04:01→21:45)
[2024-09-29] MEDS: vancomycin HCL 1,500 MG in 0.9 % Sodium Chloride 500 ML 333.33 MG IV ×2 (04:01→13:32)
[2024-09-29 05:35] LABS: VBG Base Excess 2.3 mmol/L; VBG HCO3 23 mmol/L (22-26); VBG pCO2 25 mmHg; VBG pH 7.57 (7.32-7.43); VBG pO2 56 mmHg
[2024-09-29 05:55] LABS: MANUAL DIFF FLAG NO
[2024-09-29 05:57] LABS: Basophils Percent Auto 0.3 % (0-2); Eosinophils Absolute Auto 0.1 X10*3/uL (0.0-0.4); Eosinophils Percent Auto 1.5 % (0-4); Hematocrit 23.4 % (42.0-52.0); Imm Gran Abs Auto 0.03 X10*3/uL (0.00-0.03); Imm Gran Pct Auto 0.5 % (0.0-0.4); Lymphocytes Absolute Auto 1.6 X10*3/uL (1.2-4.9); Lymphocytes Percent Auto 23.5 % (20-40); Mean Corpuscular HGB Conc 29.1 g/dl (31.0-36.0); Mean Corpuscular Hemoglobin 17.5 pg (27.0-33.0); Mean Platelet Volume 9.3 fL (9.4-12.4); Monocytes Absolute Auto 0.7 X10*3/uL (0.1-1.2); Monocytes Percent Auto 10.2 % (2-11); Neutrophils Absolute Auto 4.2 x10*3/uL (2.0-8.3); Platelet Count 321 X10*3/uL (160-400); Red Blood Count 3.88 X10*6/uL (4.60-5.80); Red Cell Distribution Width 16.7 % (11.0-16.0); White Blood Count 6.6 X10*3/uL (4.8-10.8)
[2024-09-29 06:03] LABS: Mean Corpuscular Volume 60.3 fL (80.0-98.0)
[2024-09-29 06:04] LABS: Hemoglobin 6.8 g/dl (14.0-18.0)
[2024-09-29 06:12] LABS: Alanine Aminotransferase 10 U/L (0-40); Albumin Level 3.6 g/dL (3.5-5.0); Alkaline Phosphatase 66 U/L (39-117); Anion Gap 13 (12-20); Aspartate Amino Transferase 21 U/L (5-37); Bilirubin Total 0.2 mg/dL (0.0-1.0); Blood Urea Nitrogen 3 mg/dL (9-16); Calcium 8.7 mg/dL (8.4-10.2); Carbon Dioxide 22 mmol/L (22-29); Chloride 111 mmol/L (96-108); Creatinine Clr Calc Pharmacy 204.8; Estimated Glomerular Filt Rate > 60; Glucose Random 94 mg/dL (60-115); Magnesium 1.8 mg/dL (1.6-2.6); Phosphorus 2.3 mg/dL (2.7-4.5); Sodium 143 mmol/L (135-145); Total Protein 6.8 g/dL (6.5-8.0)
[2024-09-29 06:12] LABS: Glucose, Whole Blood 99 mg/dL (60-115)
--- NOTE | 2024-09-29 06:45 | PC.NURSE ---
2000: Upon initial assessment, patient arousable to name/verbal stimuli. RASS -2, Able to open eyes and briefly track speaker, nod/shake head for yes/no, and move all extremities despite propofol gtt, fentanyl gtt, and versed gtt for sedation (see MAR). SR on tele, [id number].Patient continues on mechanical ventilation, #7.5 ETT, 24cm?@ lip. See vent assessment. Patient largely synchronous?with the vent, occasionally stacking?breaths. Lung sounds clear, diminished in the?bases, abdomen soft and nontender. Velásquez catheter in place draining pale yellow urine, OUP 200-300mL/hr. Extensive ulcerations to bilateral arms, wound RN following?(see photos). Patient repositioned Q2 for comfort, call leung within reach, bed alarm on.? 2200: Patient more alert, able to write to communicate needs. Tracks speaker, and has prolonged awakening to voice. Positioned?for comfort, watching TV, call leung in hand.? 0600: Patient washed up for the morning, alert, conversing via writing. Per DEISI Chery, patient sedation off, PSV trial started, RT to bedside.? 0620: Patient extubated without incident. Call leung in hand, bed locked in lowest possible position, bed alarm on. 0645: Patient's mother/HCP updated via phone. Now: Report given to oncoming RN.
[2024-09-29] MEDS: Potassium Phosphate/NS 15 MMOL/250 ML PLAST..BAG 62.5 MMOL IV ×4 (08:30→23:07)
[2024-09-29] MEDS: Famotidine/PF 20 MG/2 ML VIAL IVPUSH (08:30)
--- NOTE | 2024-09-29 09:36 | HE.PHANOTE ---
METHADONE METHADONE VERIFICATION FORM RECEIVED. PATIENTS DOSE IS 170 MG. LAST RECEIVED DOSE ON 09/25/24 @0837. [facility] [phone].
--- NOTE | 2024-09-29 09:41 | P.PNCC_ITS ---
Subjective Subjective Date of Service: 09/29/24 Interval History: 34-year-old gentleman with underlying history of polysubstance abuse, diabetes mellitus, MRSA cellulitis admitted on 09/27/2024 with polysubstance abuse requiring multiple sedative drips and intubation for airway protection. Also noted to have excoriations of bilateral arms. Cephalopathy improved in patient extubated overnight 09/29/2024. No events overnight. Critical Care Time (minutes): 45 Physical Exam 2 Vital Signs: Vital Signs: Last Vital Signs Temp 98.1 F 09/29/24 08:54 Pulse 88 09/29/24 08:54 Resp 20 09/29/24 09:00 BP 140/80 H 09/29/24 09:00 Pulse Ox 95 09/29/24 09:00 O2 Del Method Room Air 09/29/24 09:00 O2 Flow Rate 30 09/27/24 15:00 FiO2 25 09/29/24 06:00 BMI result Body Mass Index 34.7 Const: General: no acute distress, alert and awake Eyes: Sclerae: sclerae normal EOM: EOMs intact bilaterally Neck: Neck: Yes no lymphadenopathy, Yes trachea midline and Yes supple Resp: Effort & Inspection: normal respiratory effort and no respiratory distress Auscultation: clear to auscultation bilaterally Cardio: Rate: regular rate Rhythm: regular rhythm Heart sounds: no gallops, no murmurs and no rubs GI: Palpation (GI): Soft to palpation and Other GI palpation findings present ( Nontender) Auscultation: normal bowel sounds Extrem: General: Yes no pedal edema, No clubbing and No cyanosis Objective Data Labs 09/29/24 05:28 09/29/24 05:28 Labs: Laboratory Results - last 24 hr 09/28/24 09/28/24 09/28/24 11:19 13:52 18:04 WBC 9.3 RBC 4.23 L Hgb 7.4 L Hct 25.7 L MCV 60.8 L MCH 17.5 L MCHC 28.8 L RDW 17.1 H Plt Count 387 MPV 8.9 L Immature Gran % (Auto) 0.5 H Neut % (Auto) 76.3 H Lymph % (Auto) 14.2 L [place] % (Auto) 8.8 Eos % (Auto) 0.1 Baso % (Auto) 0.1 Lymph # (Auto) 1.3 [place] # (Auto) 0.8 Eos # (Auto) 0.0 Baso # (Auto) 0.0 Abs Immat Gran (auto) 0.05 H Absolute Neuts (auto) 7.1 Absolute Nucleated RBC 0.000 Nucleated RBC % (auto) 0.0 VBG pH VBG pCO2 VBG pO2 VBG HCO3 VBG O2 Saturation VBG Base Excess Sodium Potassium Chloride Carbon Dioxide Anion Gap BUN Creatinine Estim Creat Clear Calc Estimated GFR POC Glucose 72 55 L* Random Glucose Calcium Phosphorus Magnesium Total Bilirubin AST ALT Alkaline Phosphatase Total Protein Albumin Random Vancomycin Blood Type Antibody Screen Crossmatch 09/28/24 09/28/24 09/28/24 19:02 19:12 23:29 WBC RBC Hgb Hct MCV MCH MCHC RDW Plt Count MPV Immature Gran % (Auto) Neut % (Auto) Lymph % (Auto) [place] % (Auto) Eos % (Auto) Baso % (Auto) Lymph # (Auto) [place] # (Auto) Eos # (Auto) Baso # (Auto) Abs Immat Gran (auto) Absolute Neuts (auto) Absolute Nucleated RBC Nucleated RBC % (auto) VBG pH VBG pCO2 VBG pO2 VBG HCO3 VBG O2 Saturation VBG Base Excess Sodium Potassium Chloride Carbon Dioxide Anion Gap BUN Creatinine Estim Creat Clear Calc Estimated GFR POC Glucose 133 H 59 L* Random Glucose Calcium Phosphorus Magnesium Total Bilirubin AST ALT Alkaline Phosphatase Total Protein Albumin Random Vancomycin 8.4 L Blood Type Antibody Screen Crossmatch 09/29/24 09/29/24 09/29/24 02:34 05:28 05:31 WBC 6.6 RBC 3.88 L Hgb 6.8 L* Hct 23.4 L MCV 60.3 L MCH 17.5 L MCHC 29.1 L RDW 16.7 H Plt Count 321 MPV 9.3 L Immature Gran % (Auto) 0.5 H Neut % (Auto) 64.0 Lymph % (Auto) 23.5 [place] % (Auto) 10.2 Eos % (Auto) 1.5 Baso % (Auto) 0.3 Lymph # (Auto) 1.6 [place] # (Auto) 0.7 Eos # (Auto) 0.1 Baso # (Auto) 0.0 Abs Immat Gran (auto) 0.03 Absolute Neuts (auto) 4.2 Absolute Nucleated RBC 0.000 Nucleated RBC % (auto) 0.0 VBG pH 7.57 H VBG pCO2 25 VBG pO2 56 VBG HCO3 23 VBG O2 Saturation 91.0 VBG Base Excess 2.3 Sodium 143 Potassium 3.0 L Chloride 111 H Carbon Dioxide 22 Anion Gap 13 BUN 3 L Creatinine 0.63 Estim Creat Clear Calc 204.8 Estimated GFR > 60 POC Glucose 93 Random Glucose 94 Calcium 8.7 Phosphorus 2.3 L Magnesium 1.8 Total Bilirubin 0.2 AST 21 ALT 10 Alkaline Phosphatase 66 Total Protein 6.8 Albumin 3.6 Random Vancomycin Blood Type Antibody Screen Crossmatch 09/29/24 09/29/24 06:08 07:20 WBC RBC Hgb Hct MCV MCH MCHC RDW Plt Count MPV Immature Gran % (Auto) Neut % (Auto) Lymph % (Auto) [place] % (Auto) Eos % (Auto) Baso % (Auto) Lymph # (Auto) [place] # (Auto) Eos # (Auto) Baso # (Auto) Abs Immat Gran (auto) Absolute Neuts (auto) Absolute Nucleated RBC Nucleated RBC % (auto) VBG pH VBG pCO2 VBG pO2 VBG HCO3 VBG O2 Saturation VBG Base Excess Sodium Potassium Chloride Carbon Dioxide Anion Gap BUN Creatinine Estim Creat Clear Calc Estimated GFR POC Glucose 99 Random Glucose Calcium Phosphorus Magnesium Total Bilirubin AST ALT Alkaline Phosphatase Total Protein Albumin Random Vancomycin Blood Type O Positive Antibody Screen NEGATIVE Crossmatch See Detail Microbiology Microbiology Results: Microbiology 09/27/24 08:49 Blood - Venous Blood Culture - Preliminary Prelim: GNR Gram Stain only 09/27/24 08:49 Blood - Venous Blood Culture - Preliminary No growth after 24 hours. Progress Note: A&P Assessment and plan (1) Soft tissue infection: Status: Acute (2) Acute encephalopathy: Status: Acute (3) Polysubstance abuse: Status: Acute Plan Assessment: 34-year-old gentleman with underlying diabetes mellitus and prior history of MRSA cellulitis admitted with overdose on the background of polysubstance abuse requiring multiple sedative drips and intubation for airway protection Plan: Neuro: Acute encephalopathy secondary to polysubstance abuse, resolved. Continue baseline methadone Cardiac: No acute issues. Pulmonary: Intubated for airway protection, extubated uneventfully overnight. Renal: No acute issues. Endo: No acute issues. Underlying history of diabetes mellitus, sliding scale insulin protocol. GI: No acute issues. ID: Prior history of MRSA cellulitis, now with bilateral upper extremity excretions, 1/2 blood cultures growing Gram-negative organisms, continue broad- spectrum antibiotics. Heme/Onc: No acute issues. Psych: No acute issues. Miscellaneous: No acute issues. Prophylaxis: Heparin Diet: Diabetic Critical care time spent: 45 minutes Quality Stroke Does the patient have a stroke diagnosis?: No VTE Prior VTE?: No VTE Risk Level:: Medical - moderate - high VTE Device Contraindication: Treatment Not Indicated VTE Drug Contraindication: N/A - Med Ordered
[2024-09-29] MEDS: methADONE HCl 20 MG/2 ML ORAL.CONC 170 MG PO (09:42)
--- NOTE | 2024-09-29 09:51 | MHC.RECOVRN ---
Briefly met with pt in 262 after RN notified t/w pt was experiencing withdrawal. Pts mother, Kelsea, at bedside and present for conversation with pts permission. Pt sitting in bed, awake, alert, does not engage much in conversation due to pain and being uncomfortable. Reports it hurts to talk. Pt familiar with t/w from previous consults. Pt appears diaphoretic, restless, rhinorrhea and yawning noted. Pt reports body aches and need to frequently shift positions. Pts RN has verified methadone dose of 170 mg, last dosed 09/25. Spoke with Trista Bolanos APRN, okay to give full dose. Pt denies questions or concerns at this time. Will continue to follow and complete full assessment when pt able to participate in discussion.
[2024-09-29] MEDS: Dextrose 5 % and Lactated Ring 1,000 ML 100 ML IVCONT (10:00)
--- NOTE | 2024-09-29 10:14 | PM.EVENT ---
Event Note Date of Service: 09/30/24 Event Note: 34-year-old gentleman with underlying history of polysubstance abuse, diabetes mellitus, MRSA cellulitis admitted on 09/27/2024 with polysubstance abuse requiring multiple sedative drips for agitation , intubated for airway protection. Also noted to have excoriations of bilateral arms. Encephalopathy improved and patient extubated overnight 09/29/2024 and doing well. Transition to medical service discussed with intensivisit, vitals, medication, diagnostics reviewed. Noted to have hemoglobin 6.8. no active bleed Time Spent With Patient Time: Total time managing care of this patient today ____ minutes.
[2024-09-29 11:36] LABS: Venous Blood Gas Refer to POC result
[2024-09-29 11:41] LABS: Glucose, Whole Blood 205 mg/dL (60-115)
--- NOTE | 2024-09-29 14:40 | PC.NURSE ---
Assumed care of patient 0700 TLC right IJ sterile dressing changed, new biopatch applied. Kphos replacement given per orders, 1 unit RBCs transfused per orders Methadone dose 170 mg verified with Andi Pandey. Last dose 09/25. Methadone orders intiated by and given to patient. Recovery team to pt bedside to discuss withdrawal symptoms (yawning, diaphoretic, restless). Pt reports symptoms improved after methadone. Pt provided bed bath with CHG wipes. Velásquez removed 13:30 prior to plan for transfer to [facility]. Pt provided urinal to void.
[2024-09-29] MEDS: cloNIDine HCL 0.1 MG TABLET PO ×2 (14:58→21:45)
[2024-09-29] MEDS: clonazePAM 1 MG TABLET PO ×2 (14:58→21:45)
[2024-09-29] MEDS: Gabapentin 600 MG TABLET PO ×2 (14:58→21:45)
--- NOTE | 2024-09-29 17:00 | PC.NURSE ---
Pt has limited vein options for IV access due to b/l arm wounds. Discussed with MD; will leave TLC right IJ in place due to difficult access and need for IV antibiotics. Dsg last changed 09/29 07:30AM. Velásquez removed, pt voided once on commode at 15:00. Pt DTV again 21:00
[2024-09-29 19:37] LABS: Vancomycin Random 14.9 mcg/mL (15-20)
--- NOTE | 2024-09-29 20:21 | HE.PHANOTE ---
VANCO DOSE ADJUSTMENT BASED ON SCR AND TROUGH OF 14.9 DOSE CONTINUED AT 1500 Q 8H. NEXT LEVEL 09/30 @ 1700
[2024-09-29 21:31] LABS: Glucose, Whole Blood 153 mg/dL (60-115)
[2024-09-29] MEDS: Mirtazapine 7.5 MG TABLET PO (21:45)
[2024-09-29] MEDS: Gabapentin 300 MG CAPSULE PO (21:45)
[2024-09-30] VITALS (7 sets, daily range): BP systolic 111–131; BP diastolic 66–85; PULSE 81–96; RESP 16–20; TEMP 37.1–38.2; O2SAT 95–96; BMI 34.8
[2024-09-30] MEDS: vancomycin HCL 1,500 MG in 0.9 % Sodium Chloride 500 ML 333.33 MG IV ×3 (00:11→21:12)
[2024-09-30] MEDS: Piperacillin Sodium/Tazobactam 4.5 GM in 0.9 % Sodium Chloride 100 ML IV ×4 (05:00→20:34)
[2024-09-30] MEDS: Heparin Sodium,Porcine 5,000 UNIT/ML VIAL 5000 UNIT SUBCUT ×2 (05:09→12:40)
[2024-09-30] MEDS: Acetaminophen 325 MG TABLET 650 MG PO ×2 (05:21→16:20)
[2024-09-30 07:42] LABS: Glucose, Whole Blood 126 mg/dL (60-115)
[2024-09-30 08:23] LABS: MANUAL DIFF FLAG NO
[2024-09-30 08:26] LABS: Basophils Percent Auto 0.3 % (0-2); Eosinophils Absolute Auto 0.2 X10*3/uL (0.0-0.4); Eosinophils Percent Auto 2.2 % (0-4); Hematocrit 30.4 % (42.0-52.0); Imm Gran Abs Auto 0.02 X10*3/uL (0.00-0.03); Imm Gran Pct Auto 0.3 % (0.0-0.4); Lymphocytes Absolute Auto 0.6 X10*3/uL (1.2-4.9); Lymphocytes Percent Auto 8.2 % (20-40); Mean Corpuscular HGB Conc 29.6 g/dl (31.0-36.0); Mean Corpuscular Hemoglobin 18.3 pg (27.0-33.0); Mean Platelet Volume 9.2 fL (9.4-12.4); Monocytes Absolute Auto 0.5 X10*3/uL (0.1-1.2); Monocytes Percent Auto 6.8 % (2-11); Neutrophils Percent Auto 82.2 % (45-73); Platelet Count 355 X10*3/uL (160-400); Red Blood Count 4.91 X10*6/uL (4.60-5.80); Red Cell Distribution Width 19.4 % (11.0-16.0); White Blood Count 7.3 X10*3/uL (4.8-10.8)
[2024-09-30 08:27] LABS: Mean Corpuscular Volume 61.9 fL (80.0-98.0)
[2024-09-30 08:30] LABS: Venous Blood Gas Refer to POC result
[2024-09-30 08:31] LABS: VBG Base Excess 9.7 mmol/L; VBG HCO3 32 mmol/L (22-26); VBG pCO2 35 mmHg; VBG pH 7.56 (7.32-7.43); VBG pO2 53 mmHg
[2024-09-30] MEDS: Gabapentin 600 MG TABLET PO ×3 (08:38→20:34)
[2024-09-30] MEDS: methADONE HCl 20 MG/2 ML ORAL.CONC 170 MG PO (08:38)
[2024-09-30] MEDS: cloNIDine HCL 0.1 MG TABLET PO ×3 (08:38→20:35)
[2024-09-30] MEDS: clonazePAM 1 MG TABLET PO ×3 (08:38→20:35)
[2024-09-30 08:39] LABS: Albumin Level 3.6 g/dL (3.5-5.0); Anion Gap 13 (12-20); Blood Urea Nitrogen 6 mg/dL (9-16); Calcium 9.1 mg/dL (8.4-10.2); Carbon Dioxide 22 mmol/L (22-29); Chloride 111 mmol/L (96-108); Creatinine Clr Calc Pharmacy 192.5; Estimated Glomerular Filt Rate > 60; Glucose Random 117 mg/dL (60-115); Magnesium 1.5 mg/dL (1.6-2.6); Phosphorus 2.4 mg/dL (2.7-4.5); Potassium 3.5 mmol/L (3.3-5.1); Sodium 142 mmol/L (135-145)
--- NOTE | 2024-09-30 11:57 | HO.PM.IMPN ---
Subjective Subjective Date of Service: 09/30/24 Interval History: f/u on metabolic encephalopathy with agitation, substance use and needing intubation for airway protection Physical Exam Vital Signs: Vital Signs: Last Vital Signs Temp 99.1 F 09/30/24 11:13 Pulse 90 09/30/24 11:13 Resp 16 09/30/24 11:13 BP 114/68 09/30/24 11:13 Pulse Ox 96 09/30/24 11:13 O2 Del Method Room Air 09/30/24 11:13 O2 Flow Rate 30 09/27/24 15:00 FiO2 25 09/29/24 06:00 BMI result Body Mass Index 34.7 Const: Other: General: AO X 3, no acute distress Resp: CTA bilateral CVS: S1,S2,RRR GI: +BS, NT, no distention Skin: see pic of amrs Neuro: motor grossly intact Psych: appropriate affect Objective Data Active Medications Acetaminophen (Acetaminophen 325 Mg Tablet) 650 mg PO Q6H PRN PRN Reason: Fever >100.4 Last Admin: 09/30/24 05:21 Dose: 650 mg Documented By: CINDI Clonazepam (Clonazepam 1 Mg Tablet) 1 mg PO TID [facility] Last Admin: 09/30/24 08:38 Dose: 1 mg Documented By: SURINDER Clonidine HCl (Clonidine Hcl 0.1 Mg Tablet) 0.1 mg PO TID [facility]; Protocol Last Admin: 09/30/24 08:38 Dose: 0.1 mg Documented By: SURINDER Gabapentin (Gabapentin 300 Mg Capsule) 300 mg PO BEDTIME [facility] Last Admin: 09/29/24 21:45 Dose: 300 mg Documented By: CINDI Gabapentin (Gabapentin 600 Mg Tablet) 600 mg PO TID [facility] Last Admin: 09/30/24 08:38 Dose: 600 mg Documented By: SURINDER Heparin Sodium (Porcine) (Heparin Sodium,Porcine 5,000 Unit/Ml Vial) 5,000 unit SUBCUT Q8H [facility] Last Admin: 09/30/24 05:09 Dose: 5,000 unit Documented By: CINDI Vancomycin HCl 1,500 mg/ (Sodium Chloride) 500 mls @ 333.333 mls/hr IV Q8H [facility] Last Admin: 09/30/24 11:11 Dose: Not Given Documented By: SURINDER Non-Admin Reason: previous shift. Piperacillin Sod/Tazobactam (Sod 4.5 gm/ Sodium Chloride) 100 mls @ 200 mls/hr IV Q6H [facility] Last Infusion: 09/30/24 11:11 Dose: Infused Documented By: SURINDER Insulin Human Lispro (Insulin Lispro 100 Unit/Ml 3 Ml Vial) 0 unit SUBCUT QIDACHS [facility]; Protocol Last Admin: 09/30/24 07:45 Dose: Not Given Documented By: SURINDER Non-Admin Reason: No Insulin Coverage Methadone HCl (Methadone Hcl 20 Mg/2 Ml Oral.Conc) 170 mg PO DAILY@0800 [facility] Last Admin: 09/30/24 08:38 Dose: 170 mg Documented By: SURINDER Co-signed By: ANN Mirtazapine (Mirtazapine 7.5 Mg Tablet) 7.5 mg PO BEDTIME [facility] Last Admin: 09/29/24 21:45 Dose: 7.5 mg Documented By: CINDI Naloxone HCl (Naloxone Hcl 0.4 Mg/Ml Vial) 0.2 mg IVPUSH Q2M PRN PRN Reason: Excessive sedation or RR < 8 Pharmacy Consult (Consult Rx Vancomycin Dosing) 1 each MISCELLANE DAILY PRN PRN Reason: Consult order Quetiapine Fumarate (Quetiapine Fumarate 100 Mg Tablet) 100 mg PO BEDTIME PRN PRN Reason: Insomnia Labs 09/30/24 08:18 10/01/24 06:03 Labs: Laboratory Results - last 24 hr 09/29/24 09/29/24 09/29/24 07:20 18:58 21:27 MCV MCH MCHC RDW Plt Count MPV Immature Gran % (Auto) Neut % (Auto) Lymph % (Auto) [place] % (Auto) Eos % (Auto) Baso % (Auto) Lymph # (Auto) [place] # (Auto) Eos # (Auto) Baso # (Auto) Abs Immat Gran (auto) Absolute Neuts (auto) Absolute Nucleated RBC Nucleated RBC % (auto) VBG pH VBG pCO2 VBG pO2 VBG HCO3 VBG O2 Saturation VBG Base Excess Anion Gap Estim Creat Clear Calc Estimated GFR POC Glucose 153 H Random Glucose Calcium Phosphorus Magnesium Albumin Random Vancomycin 14.9 L Crossmatch See Detail 09/30/24 09/30/24 09/30/24 07:36 08:18 08:26 MCV 61.9 L MCH 18.3 L MCHC 29.6 L RDW 19.4 H Plt Count 355 MPV 9.2 L Immature Gran % (Auto) 0.3 Neut % (Auto) 82.2 H Lymph % (Auto) 8.2 L [place] % (Auto) 6.8 Eos % (Auto) 2.2 Baso % (Auto) 0.3 Lymph # (Auto) 0.6 L [place] # (Auto) 0.5 Eos # (Auto) 0.2 Baso # (Auto) 0.0 Abs Immat Gran (auto) 0.02 Absolute Neuts (auto) 6.0 Absolute Nucleated RBC 0.000 Nucleated RBC % (auto) 0.0 VBG pH 7.56 H VBG pCO2 35 VBG pO2 53 VBG HCO3 32 H VBG O2 Saturation 87.0 VBG Base Excess 9.7 Anion Gap 13 Estim Creat Clear Calc 192.5 Estimated GFR > 60 POC Glucose 126 H Random Glucose 117 H Calcium 9.1 Phosphorus 2.4 L Magnesium 1.5 L Albumin 3.6 Random Vancomycin Crossmatch Microbiology Microbiology Results: Microbiology 09/27/24 08:49 Blood Culture - Preliminary Blood - Venous Gram negative tricia 09/27/24 08:49 Blood Culture - Preliminary Blood - Venous No growth after 48 hours. Assessment and Plan (1) Right radial nerve palsy: Status: Resolved Plan A 34 years old male with PMH of drug abuse, recent cellulitis who presented to the hospital with worsening RUE open wounds with associated pain and drainage. Bilateral forearm infection with multiple infected ulcers secondary to habitual IV xylazine ingestion into the site--see pictures Continue Abx Surgery for need for debridment Wound care consult continue Zosyn and vanco, change to PO Doxy and Augmentin later oxycodone for pain s/p Intubation in ICU d/t agitation, encephalopathy related to drug use, presently at baseline mentals status IVDU. Fentanyl, cocaine continue methadone Addiction med consult Mood disorder/deppression no SI Continue continue home meds Code status: Full DVT prophylaxis: Early ambulation need for inpatient: r right arm cellulitis and deep tissue infection for treatment with IV antibiotics pending final cultures and surgical evaluation Dispo: home Quality Stroke Does the patient have a stroke diagnosis?: No VTE Prior VTE?: No VTE Risk Level:: Medical - moderate - high VTE Device Contraindication: Treatment Not Indicated VTE Drug Contraindication: N/A - Med Ordered
[2024-09-30] MEDS: Magnesium Sulfate/H2O 2 GM/50 ML PIGGYBACK IV (12:16)
[2024-09-30 12:38] LABS: Glucose, Whole Blood 108 mg/dL (60-115)
[2024-09-30] MEDS: oxyCODONE HCl Immed Release 5 MG TABLET 10 MG PO ×2 (12:39→19:06)
[2024-09-30 16:03] LABS: Glucose, Whole Blood 104 mg/dL (60-115)
[2024-09-30] MEDS: Nicotine 14 MG PATCH.TD24 TRANSDERMA (17:15)
[2024-09-30] MEDS: Nicotine Polacrilex 2 MG GUM BUCCAL (17:15)
--- NOTE | 2024-09-30 18:17 | PC.NURSE ---
Pt arrived from [facility] 1630 nto room 379. Settled and orderes transferred. Pt alert and oriented, calm and cooperative. Dressings to bilateral forarms changed while on [facility] - CDI. TL IJ intact for IV access
[2024-09-30 19:24] LABS: Vancomycin Random 9.8 mcg/mL (15-20)
--- NOTE | 2024-09-30 19:41 | HE.PHANOTE ---
VANCO DOSE ADJUSTMENT BASED ON SCR AND TROUGH DOSE CONTINUED AT 1500 Q 8 BECAUSE OF MISSED AM DOSE. LEVEL ORDERED FOR 10/01 @ 1100
[2024-09-30] MEDS: Mirtazapine 7.5 MG TABLET PO (20:35)
[2024-09-30] MEDS: Gabapentin 300 MG CAPSULE PO (20:35)
[2024-10-01 03:40] VITALS: BP 109/56; PULSE 87; RESP 18; TEMP 36.8; O2SAT 94
[2024-10-01] MEDS: Piperacillin Sodium/Tazobactam 4.5 GM in 0.9 % Sodium Chloride 100 ML IV ×4 (04:40→20:49)
[2024-10-01] MEDS: vancomycin HCL 1,500 MG in 0.9 % Sodium Chloride 500 ML 333.33 MG IV (05:15)
[2024-10-01 06:28] LABS: Creatinine Clr Calc Pharmacy 198.8; Estimated Glomerular Filt Rate > 60
[2024-10-01 07:00] VITALS: BP 118/65; PULSE 85; RESP 16; TEMP 37.9; O2SAT 93
[2024-10-01 07:24] LABS: Anion Gap 14 (12-20); Carbon Dioxide 19 mmol/L (22-29); Chloride 111 mmol/L (96-108); Potassium 4.2 mmol/L (3.3-5.1); Sodium 140 mmol/L (135-145)
[2024-10-01] MEDS: methADONE HCl 20 MG/2 ML ORAL.CONC 170 MG PO (07:40)
[2024-10-01 07:50] LABS: Estimated Average Glucose 123 mg/dL; Hemoglobin A1C 98.5554 umol/L; Hemoglobin A1c % 5.9 % (<6.0); Total Hemoglobin (HGBA1C) 2399.5261 umol/L
[2024-10-01] MEDS: oxyCODONE HCl Immed Release 5 MG TABLET 10 MG PO ×4 (08:02→23:05)
--- NOTE | 2024-10-01 08:25 | P.CONGS_ITS ---
History of Present Illness Consult details Consult date: 10/01/24 Narrative: 34-year-old male patient well known to the surgical service with a history of IV drug use presenting with bilateral upper extremity skin ulcerations. He was readmitted on 09/27/2024 with a history of opioid overdose, found unresponsive at home. He was subsequently given Narcan and presented to the emergency department for further evaluation. He has a prior history of MRSA bacteremia. Surgical consultation was requested for management of the bilateral forearm skin ulcerations. Review of Systems 2 Review of Systems: Yes Unobtainable due to mental condition PMFSH Past Medical History Medical History (Updated 09/27/24 @ 15:55 by Frederic Allison MD) Arm ulcer MRSA bacteremia Suicidal ideation Depression Diabetes Cocaine use with cocaine-induced disorder Opiate dependence, continuous Major depressive disorder, recurrent severe without psychotic features Depression Anxiety IVDU (intravenous drug user) Diabetes Asthma Family History Family History Father Heart disease Social History Social History Household Members: Family Household Members Other:: mother Housing: House Housing Other:: lives with parents Do you presently have visiting nurse or other home services: No Alcohol intake: unknown Comment: intubated/sedated..bilateral wrist restraints for airway/line safety Patient Tobacco Use Status: Current everyday Tobacco user Tobacco use type: Cigarette Cigarette Packs Per Day: 1 Cigarettes Per Day: 15 Years Smoked: 15 Smoked in Last 30 Days: Yes e-Cigarette/Vaping Use: Never Used Patient Interested in Nicotine Replacement: No Patient Given Instructions on How to Stop Smoking: No Second Hand Smoke Exposure: Yes Use of substances other than those prescribed or required for medical reasons: Yes Substance Use Type: Crack/Cocaine, Heroin, Marijuana, Opiates and Tranquilizers Substance Use Type Other:: methadone Substance Use Frequency: Daily Last Used Substance: Hours (ago) Currently Displaying Signs/Symptoms of Drug Intoxication Withdrawal: No Other Past Substance Use Problem:: Mom states she did not know he was using. Any prior treatment program specific to substance use: Yes (gets methadone daily) Have you been hit, kicked, punched, or otherwise hurt by someone within the past year? If so, by whom?: No (Per mother) Do you feel safe in your current relationship?: No Current Relationship Is there a partner from a previous relationship who is making you feel unsafe now?: No (per mother) Are you made to feel afraid or neglected: No (per mother) Spiritual Healthcare Practices: no per mother Gnosticism Healthcare Practices: no per mother Cultural Healthcare Practices: no per mother Advance Directives: No Advance Directives Information Provided: Yes Advance Directives on File: No Advance Directives Date on File: 01/30/21 Do you have a plan to hurt others: No Plan Recently lost weight without trying: No How much weight loss: Unsure Eating poorly because of decreased appetite: No Nutrition screen score: 2 Nutrition Risks: Dental problems Poor oral hygiene: Yes (wanted to go to dentist, been a year co sore teeth) service: No Current occupational status: unemployed Sexual orientation: Straight/Heterosexual Meds Allergies Allergy/AdvReac Type Severity Reaction Status Date / Time Pertussis Vaccines Allergy Mild HIVES Verified 09/27/24 08:23 [PERTUSSIS VACCINES] Active Medications: Current Medications Acetaminophen (Acetaminophen 325 Mg Tablet) 650 mg PO Q6H PRN PRN Reason: Fever >100.4 Last Admin: 09/30/24 16:20 Dose: 650 mg Clonazepam (Clonazepam 1 Mg Tablet) 1 mg PO TID [facility] Last Admin: 09/30/24 20:35 Dose: 1 mg Clonidine HCl (Clonidine Hcl 0.1 Mg Tablet) 0.1 mg PO TID [facility]; Protocol Last Admin: 09/30/24 20:35 Dose: 0.1 mg Gabapentin (Gabapentin 300 Mg Capsule) 300 mg PO BEDTIME [facility] Last Admin: 09/30/24 20:35 Dose: 300 mg Gabapentin (Gabapentin 600 Mg Tablet) 600 mg PO TID [facility] Last Admin: 09/30/24 20:34 Dose: 600 mg Heparin Sodium (Porcine) (Heparin Sodium,Porcine 5,000 Unit/Ml Vial) 5,000 unit SUBCUT Q8H [facility] Last Admin: 10/01/24 04:40 Dose: Not Given Vancomycin HCl 1,500 mg/ (Sodium Chloride) 500 mls @ 333.333 mls/hr IV Q8H [facility] Last Infusion: 10/01/24 06:58 Dose: Infused Piperacillin Sod/Tazobactam (Sod 4.5 gm/ Sodium Chloride) 100 mls @ 200 mls/hr IV Q6H [facility] Last Infusion: 10/01/24 05:16 Dose: Infused Methadone HCl (Methadone Hcl 20 Mg/2 Ml Oral.Conc) 170 mg PO DAILY@0800 [facility] Last Admin: 10/01/24 07:40 Dose: 170 mg Mirtazapine (Mirtazapine 7.5 Mg Tablet) 7.5 mg PO BEDTIME [facility] Last Admin: 09/30/24 20:35 Dose: 7.5 mg Naloxone HCl (Naloxone Hcl 0.4 Mg/Ml Vial) 0.2 mg IVPUSH Q2M PRN PRN Reason: Excessive sedation or RR < 8 Nicotine (Nicotine 14 Mg Patch.Td24) 14 mg TRANSDERMA DAILY [facility] Last Admin: 09/30/24 17:15 Dose: 14 mg Nicotine Polacrilex (Nicotine Polacrilex 2 Mg Gum) 2 mg BUCCAL Q2H PRN PRN Reason: Nicotine Cravings Last Admin: 09/30/24 17:15 Dose: 2 mg Oxycodone HCl (Oxycodone Hcl Immed Release 5 Mg Tablet) 10 mg PO Q6H PRN PRN Reason: Pain, Severe (Pain Scale 7-10) Last Admin: 10/01/24 08:02 Dose: 10 mg Pharmacy Consult (Consult Rx Vancomycin Dosing) 1 each MISCELLANE DAILY PRN PRN Reason: Consult order Quetiapine Fumarate (Quetiapine Fumarate 100 Mg Tablet) 100 mg PO BEDTIME PRN PRN Reason: Insomnia Home Medications ?Medication ?Instructions ?Recorded ?Confirmed ?Last Taken ?Type methadone 10 mg/mL oral 170 mg PO DAILY 10/13/23 02/28/24 02/27/24 09:19 History concentrate (Methadone Intensol) clonazepam 1 mg tablet 1 mg PO TID 02/28/24 09/27/24 02/27/24 20:00 History clonidine HCl 0.1 mg tablet 0.1 mg PO TID 02/28/24 09/27/24 02/27/24 20:00 History gabapentin 300 mg capsule 300 mg PO BEDTIME 02/28/24 09/27/24 02/26/24 21:00 History gabapentin 600 mg tablet 600 mg PO TID 02/28/24 09/27/24 02/27/24 17:00 History mirtazapine 7.5 mg tablet 7.5 mg PO BEDTIME 02/28/24 09/27/24 02/26/24 21:00 History quetiapine 100 mg tablet 100 - 200 mg PO BEDTIME PRN 02/28/24 09/27/24 Unknown History Insomnia Physical Exam 2 Vital Signs: Vital Signs: Last Vital Signs Temp 100.2 F 10/01/24 07:00 Pulse 85 10/01/24 07:00 Resp 16 10/01/24 07:00 BP 118/65 10/01/24 07:00 Pulse Ox 93 10/01/24 07:00 O2 Del Method Room Air 10/01/24 07:00 O2 Flow Rate 30 09/27/24 15:00 FiO2 25 09/29/24 06:00 BMI result Body Mass Index 34.8 Const: General: cooperative and no acute distress Nutritional Appearance: w ell nourished Orientation/consciousness: patient oriented x3 Limitations: no limitations HEENT: Head: Yes normocephalic and Yes atraumatic Ears: hearing grossly normal bilaterally Resp: Effort & Inspection: normal respiratory effort, no audible wheezes, no cough and no respiratory distress Cardio: Jugular venous distension: no JVD GI: Inspection: Yes normal to inspection Skin: Other: Warm, dry, no rash Neuro: General: patient oriented x3 Extrem: Other: Bilateral forearm dressings intact, recently changed. Photos reviewed and extensive crusting noted with open wounds throughout the bilateral upper extremities. General: Yes no clubbing, cyanosis or edema Results Labs 09/30/24 08:18 10/01/24 06:03 Labs: Abnormal lab results 09/30/24 09/30/24 09/30/24 Range/Units 08:18 08:26 18:57 Hgb 9.0 L D (14.0-18.0) g/dl Hct 30.4 L D (42.0-52.0) % MCV 61.9 L (80.0-98.0) fL MCH 18.3 L (27.0-33.0) pg MCHC 29.6 L (31.0-36.0) g/dl RDW 19.4 H (11.0-16.0) % MPV 9.2 L (9.4-12.4) fL Neut % (Auto) 82.2 H (45-73) % Lymph % (Auto) 8.2 L (20-40) % Lymph # (Auto) 0.6 L (1.2-4.9) X10*3/uL VBG pH 7.56 H (7.32-7.43) VBG HCO3 32 H (22-26) mmol/L Chloride 111 H (96-108) mmol/L Carbon Dioxide (22-29) mmol/L BUN 6 L (9-16) mg/dL Random Glucose 117 H (60-115) mg/dL Phosphorus 2.4 L (2.7-4.5) mg/dL Magnesium 1.5 L (1.6-2.6) mg/dL Random Vancomycin 9.8 L (15-20) mcg/mL 10/01/24 Range/Units 06:03 Hgb (14.0-18.0) g/dl Hct (42.0-52.0) % MCV (80.0-98.0) fL MCH (27.0-33.0) pg MCHC (31.0-36.0) g/dl RDW (11.0-16.0) % MPV (9.4-12.4) fL Neut % (Auto) (45-73) % Lymph % (Auto) (20-40) % Lymph # (Auto) (1.2-4.9) X10*3/uL VBG pH (7.32-7.43) VBG HCO3 (22-26) mmol/L Chloride 111 H (96-108) mmol/L Carbon Dioxide 19 L (22-29) mmol/L BUN (9-16) mg/dL Random Glucose (60-115) mg/dL Phosphorus (2.7-4.5) mg/dL Magnesium (1.6-2.6) mg/dL Random Vancomycin (15-20) mcg/mL Short CBC 09/30/24 Range/Units 08:18 WBC 7.3 (4.8-10.8) X10*3/uL Hgb 9.0 L D (14.0-18.0) g/dl Hct 30.4 L D (42.0-52.0) % Plt Count 355 (160-400) X10*3/uL BMP 09/30/24 10/01/24 08:18 06:03 Sodium 142 140 Potassium 3.5 4.2 Chloride 111 H 111 H Carbon Dioxide 22 19 L BUN 6 L Creatinine 0.67 0.65 Calcium 9.1 Liver Function 09/30/24 Range/Units 08:18 Albumin 3.6 (3.5-5.0) g/dL All other labs normal. Assessment and Plan (1) Soft tissue infection: Status: Acute (2) Arm ulcer: Qualifiers: Non-pressure ulcer stage: unspecified non-pressure ulcer stage Q ualified Code(s): L98.499 - Non-pressure chronic ulcer of skin of other sites with unspecified severity Status: Acute Plan 34-year-old male with a prior history of IV drug use presenting with recent overdose found to have extensive ulceration of bilateral upper extremities. He is awaiting evaluation by the wound care nurse. I will tentatively schedule him for tomorrow for OR debridement of these ulcerations. We will probably require skin grafting in the future although the patient is not exceptionally reliable which would make wound healing difficult. Procedures Date of Service Date of Service: 10/01/24
[2024-10-01] MEDS: Nicotine Polacrilex 2 MG GUM BUCCAL ×5 (08:40→23:11)
[2024-10-01] MEDS: cloNIDine HCL 0.1 MG TABLET PO ×3 (08:40→20:48)
[2024-10-01] MEDS: Nicotine 14 MG PATCH.TD24 TRANSDERMA (08:40)
[2024-10-01] MEDS: clonazePAM 1 MG TABLET PO ×3 (08:41→20:48)
[2024-10-01] MEDS: Gabapentin 600 MG TABLET PO ×3 (08:41→20:49)
--- NOTE | 2024-10-01 11:44 | MHC.CM.PN ---
Per MD rounds patient not medically cleared for dc. Awaiting wound nurse consult and possible debridement in OR tomorrow. Patient reports he lives at home w/ his mother. Functionally independent. Denies use of services or DME. PCP Orlando Mahmood MD Reports he has an HCP naming his mother, Kelsea, as HCA. Copy requested. Previously followed by [facility] wound clinic. Methadone is through [facility]. Reports he has met w/ addiction team and does not feel he needs additional support from them at this time. DP: Goal is home w/ wound clinic f/u. Would be open to VNA if recommended, no agency preference. Mom to transport.
[2024-10-01 12:25] LABS: Vancomycin Random 16.9 mcg/mL (15-20)
[2024-10-01] MEDS: Heparin Sodium,Porcine 5,000 UNIT/ML VIAL 5000 UNIT SUBCUT ×2 (13:39→20:49)
[2024-10-01] MEDS: vancomycin HCL 1,500 MG in 0.9 % Sodium Chloride 500 ML 333 MG IV ×2 (13:40→20:51)
[2024-10-01 15:13] VITALS: BP 115/68; PULSE 71; RESP 16; TEMP 36.6; O2SAT 97
--- NOTE | 2024-10-01 16:14 | MHC.RECOVRN ---
Met with pt to follow up and provide support. Pt reports doing well other than pain. Pt also reports he is not receiving his Baclofen. Discussed possible debridement, pt agreeable. Denies other questions or concerns. Discussed with Trista Bolanos APRN.
[2024-10-01] MEDS: Acetaminophen 325 MG TABLET 650 MG PO (18:39)
[2024-10-01 19:59] VITALS: BP 112/56; PULSE 78; RESP 18; TEMP 37.3; O2SAT 95
[2024-10-01] MEDS: Mirtazapine 7.5 MG TABLET PO (20:48)
[2024-10-01] MEDS: Gabapentin 300 MG CAPSULE PO (20:49)
[2024-10-01 23:47] VITALS: BP 94/67; PULSE 80; RESP 17; TEMP 37.1; O2SAT 95
[2024-10-02] VITALS (9 sets, daily range): BP systolic 99–133; BP diastolic 46–69; PULSE 70–94; RESP 14–16; TEMP 36.1–37.4; O2SAT 95–98
[2024-10-02] MEDS: Dextrose 5 % and Lactated Ring 1,000 ML 125 ML IVCONT ×2 (00:45→09:13)
[2024-10-02] MEDS: Piperacillin Sodium/Tazobactam 4.5 GM in 0.9 % Sodium Chloride 100 ML IV ×4 (04:09→21:38)
[2024-10-02] MEDS: vancomycin HCL 1,500 MG in 0.9 % Sodium Chloride 500 ML 333.33 MG IV (04:09)
[2024-10-02 06:36] LABS: Creatinine Clr Calc Pharmacy 187.3; Estimated Glomerular Filt Rate > 60
[2024-10-02] MEDS: cloNIDine HCL 0.1 MG TABLET PO ×3 (07:58→21:37)
[2024-10-02] MEDS: Nicotine Polacrilex 2 MG GUM BUCCAL (07:58)
[2024-10-02] MEDS: Gabapentin 600 MG TABLET PO ×3 (07:58→21:37)
[2024-10-02] MEDS: clonazePAM 1 MG TABLET PO ×3 (07:59→21:38)
[2024-10-02] MEDS: Nicotine 14 MG PATCH.TD24 TRANSDERMA (08:00)
--- NOTE | 2024-10-02 08:12 | MHC.SHP ---
Pre-Procedural Eval Section A - 24 Hr Update-Section A only Date of Service: 10/02/24 The patient is an INPATIENT: Yes Changes since office visit: Yes Patient answered all questions; No Cold of Flu in the past 2 weeks, No New Medical Problems and No Changes in Medication The patient has been examined within 24 hours of the surgical procedure. The History & Physical has been completed within 30 days and I have reviewed it.: Yes Section B - Complete if H&P > 30 days Chief Complaint: Polysubstance abuse Allergies: Allergies Allergy/AdvReac Type Severity Reaction Status Date / Time Pertussis Vaccines Allergy Mild HIVES Verified 09/27/24 08:23 [PERTUSSIS VACCINES] Plan Diagnosis/Plan: Unchanged I have reviewed the history and physical and performed a pertinent physical examination on my patient. No changes have occurred unless specified. Time Spent With Patient Time: Total time managing care of this patient today ____ minutes.
[2024-10-02] MEDS: oxyCODONE HCl Immed Release 5 MG TABLET 10 MG PO ×2 (09:12→16:40)
[2024-10-02] MEDS: Baclofen 10 MG TABLET PO ×2 (10:51→21:37)
[2024-10-02] MEDS: methADONE HCl 20 MG/2 ML ORAL.CONC 170 MG PO (11:10)
--- NOTE | 2024-10-02 11:48 | HO.PM.IMPN ---
Subjective Subjective Date of Service: 10/02/24 Interval History: f/u on metabolic encephalopathy with agitation, substance use and needing intubation for airway protection and possible infected wounds of the arm Physical Exam Vital Signs: Vital Signs: Last Vital Signs Temp 97.9 F 10/02/24 07:02 Pulse 75 10/02/24 07:02 Resp 16 10/02/24 07:02 BP 116/63 10/02/24 07:02 Pulse Ox 97 10/02/24 07:02 O2 Del Method Room Air 10/02/24 07:02 O2 Flow Rate 30 09/27/24 15:00 FiO2 25 09/29/24 06:00 BMI result Body Mass Index 34.8 Objective Data Active Medications Acetaminophen (Acetaminophen 325 Mg Tablet) 650 mg PO Q6H PRN PRN Reason: Fever >100.4 Last Admin: 10/01/24 18:39 Dose: 650 mg Documented By: DEANDRE Baclofen (Baclofen 10 Mg Tablet) 10 mg PO BID [facility] Last Admin: 10/02/24 10:51 Dose: 10 mg Documented By: TALITA Clonazepam (Clonazepam 1 Mg Tablet) 1 mg PO TID [facility] Last Admin: 10/02/24 07:59 Dose: 1 mg Documented By: TALITA Clonidine HCl (Clonidine Hcl 0.1 Mg Tablet) 0.1 mg PO TID [facility]; Protocol Last Admin: 10/02/24 07:58 Dose: 0.1 mg Documented By: TALITA Gabapentin (Gabapentin 300 Mg Capsule) 300 mg PO BEDTIME [facility] Last Admin: 10/01/24 20:49 Dose: 300 mg Documented By: ROGELIO Gabapentin (Gabapentin 600 Mg Tablet) 600 mg PO TID [facility] Last Admin: 10/02/24 07:58 Dose: 600 mg Documented By: TALITA Heparin Sodium (Porcine) (Heparin Sodium,Porcine 5,000 Unit/Ml Vial) 5,000 unit SUBCUT Q8H [facility] Last Admin: 10/02/24 04:09 Dose: Not Given Documented By: ROGELIO Non-Admin Reason: Patient Refused Vancomycin HCl 1,500 mg/ (Sodium Chloride) 500 mls @ 333.333 mls/hr IV Q8H [facility] Last Infusion: 10/02/24 05:42 Dose: Infused Documented By: ROGELIO Piperacillin Sod/Tazobactam (Sod 4.5 gm/ Sodium Chloride) 100 mls @ 200 mls/hr IV Q6H [facility] Last Infusion: 10/02/24 08:42 Dose: Infused Documented By: CASSIUS Dextrose/Lactated Ringer's (D5lr) 1,000 mls @ 125 mls/hr IVCONT .Q8H [facility] Last Admin: 10/02/24 09:13 Dose: 125 mls/hr Documented By: TALITA Methadone HCl (Methadone Hcl 20 Mg/2 Ml Oral.Conc) 170 mg PO DAILY@0800 [facility] Last Admin: 10/02/24 11:10 Dose: 170 mg Documented By: TALITA Co-signed By: HUBERT Mirtazapine (Mirtazapine 7.5 Mg Tablet) 7.5 mg PO BEDTIME [facility] Last Admin: 10/01/24 20:48 Dose: 7.5 mg Documented By: CK-LISETTE Naloxone HCl (Naloxone Hcl 0.4 Mg/Ml Vial) 0.2 mg IVPUSH Q2M PRN PRN Reason: Excessive sedation or RR < 8 Nicotine (Nicotine 14 Mg Patch.Td24) 14 mg TRANSDERMA DAILY [facility] Last Admin: 10/02/24 08:00 Dose: 14 mg Documented By: TALITA Nicotine Polacrilex (Nicotine Polacrilex 2 Mg Gum) 2 mg BUCCAL Q2H PRN PRN Reason: Nicotine Cravings Last Admin: 10/02/24 07:58 Dose: 2 mg Documented By: TALITA Oxycodone HCl (Oxycodone Hcl Immed Release 5 Mg Tablet) 10 mg PO Q4H PRN PRN Reason: Pain, Severe (Pain Scale 7-10) Last Admin: 10/02/24 09:12 Dose: 10 mg Documented By: TALITA Pharmacy Consult (Consult Rx Vancomycin Dosing) 1 each MISCELLANE DAILY PRN PRN Reason: Consult order Quetiapine Fumarate (Quetiapine Fumarate 100 Mg Tablet) 100 mg PO BEDTIME PRN PRN Reason: Insomnia Labs 09/30/24 08:18 10/02/24 05:59 Labs: Laboratory Results - last 24 hr 10/01/24 10/02/24 12:00 05:59 Hold Purple Top SEE NOTE Estim Creat Clear Calc 187.3 Estimated GFR > 60 Random Vancomycin 16.9 Microbiology Microbiology Results: Microbiology 09/27/24 08:49 Blood Culture - Final Blood - Venous No growth after 5 days. 09/27/24 08:49 Blood Culture - Preliminary Blood - Venous Acinetobacter haemolyticus Assessment and Plan (1) Right radial nerve palsy: Status: Resolved Plan A 34 years old male with PMH of drug abuse, recent cellulitis who presented to the hospital with worsening RUE open wounds with associated pain and drainage. Bilateral forearm infection with multiple infected ulcers secondary to habitual IV xylazine ingestion into the site--see pictures Continue Abx Surgery for need for debridment Wound care consult continue Zosyn and vanco, change to PO Doxy and Augmentin later oxycodone for pain s/p Intubation in ICU d/t agitation, encephalopathy related to drug use, presently at baseline mentals status IVDU. Fentanyl, cocaine continue methadone Addiction med consult Mood disorder/deppression no SI Continue continue home meds Code status: Full DVT prophylaxis: Early ambulation need for inpatient: r right arm cellulitis and deep tissue infection for treatment with IV antibiotics pending final cultures and surgical evaluation Dispo: home Quality Stroke Does the patient have a stroke diagnosis?: No VTE Prior VTE?: No VTE Risk Level:: Medical - moderate - high VTE Device Contraindication: Treatment Not Indicated VTE Drug Contraindication: N/A - Med Ordered
[2024-10-02 13:59] LABS: Vancomycin Random 23.4 mcg/mL (15-20)
--- NOTE | 2024-10-02 14:14 | HE.PHANOTE ---
RE: VANCO DOSING Trough came back as 23.4 mg/L. Dose is decreased to 1250 mg q12h, starting @199910/02/24. Next trough is scheduled for 10/03/24 @1800.
--- NOTE | 2024-10-02 15:02 | W.PM.OPN ---
Operative Note Operative Note Date of Service: 10/02/24 Narrative: Preoperative diagnosis: Bilateral upper extremity skin ulceration Postoperative diagnosis: Same Procedure: Debridement of bilateral upper extremity skin ulcers Surgeon: Vimal Prakash MD Unattended Ground Sensor Specialist: Yaneth Ramirez PA-C; PETE Torres Anesthesia: General LMA Indications for procedure: 34-year-old male patient with history of IV drug use presenting with expanding bilateral upper extremity skin ulceration from previous IV drug use. On examination he has multiple areas of necrotic skin and exudate impeding wound healing. Pre-debridement: left arm Pre-debridement right arm: Operative findings: Bilateral upper extremity wounds debrided to viable tissue. Post debridement right arm: Post debridement left arm: Specimen: None Estimated blood loss: 10 mL Complications: None Procedure details: Patient was brought to the OR placed in a supine position. After administering general anesthesia the patient's bilateral upper extremities were prepped with Betadine and draped in a sterile fashion. A surgical time-out was called the consent confirmed. Patient has been on regular antibiotics antibiotics (vancomycin and Zosyn) and Venodyne boots were in place. Beginning of the left arm the callus and necrotic skin was excised using a combination of curette and forceps dissection. Healthy bleeding tissue was identified following the debridement. An area of 7 by 5 cm was debrided of skin and callus. Attention was then directed to the right arm were again curette and forceps was used to debride the callus and necrotic skin. An area measuring approximately 5 x 3 cm was debrided on the right arm. Following debridement wounds were dressed with silver alginate followed by fluff gauze and Kerlix. The patient tolerated the procedure well. Sponge, instrument, and needle counts reported as correct. The patient was transferred to PACU in stable condition.
--- NOTE | 2024-10-02 15:29 | P.PNADD_ITS ---
Subjective Subjective Date of Service: 10/02/24 Reason For Visit: Polysubstance abuse Interim History: Patient seen in follow up for OUD Patient awake, alert, verbalizing anxiety and frustration as methadone dose had not yet been administered (1020am) Appearing restless and slightly diaphoretic. He inquires about pain medications stating that current medications that are ordered are not sufficient Current order is for oxycodone 10mg q 4hrs. He is concerned about pain following OR procedure and requesting dose be increased or another medication be added Review of Systems Constitutional: Reports as per HPI, Reports body ache(s) and Reports malaise Musculoskeletal: Reports arthralgias Psychiatric: Reports anxiety Mental Status Exam Mental Status Exam Patient Appearance: Appropriate Level of Consciousness: Awake, Appropriate and Alert Patient Behavior: Appropriate and Talkative Mood Description: Anxious Affect Description: Appropriate and Anxious Speech Pattern: Clear Delusions: Not Present Thought Process: Intact Thought Content: positive for Intact Judgement: Good Diagnostics Vital Signs (24Hr): Vital Signs - 24 hr 10/01/24 19:59 10/01/24 23:47 10/02/24 03:10 Temperature 99.2 F 98.7 F 97 F Pulse Rate 78 80 70 Respiratory Rate 18 17 16 Blood Pressure 112/56 L 94/67 101/57 L Pulse Oximetry 95 95 96 Oxygen Delivery Method Room Air Room Air Room Air Oxygen Flow Rate Fraction of Inspired Oxygen 10/02/24 07:02 10/02/24 12:58 10/02/24 15:10 Temperature 97.9 F 98.9 F 99.3 F Pulse Rate 75 88 87 Respiratory Rate 16 16 14 Blood Pressure 116/63 99/65 128/46 L Pulse Oximetry 97 96 98 Oxygen Delivery Method Room Air Room Air Nasal Cannula Oxygen Flow Rate 2 Fraction of Inspired Oxygen 10/02/24 15:15 10/02/24 15:20 10/02/24 15:25 Temperature Pulse Rate 81 84 83 Respiratory Rate 14 16 16 Blood Pressure 133/47 L 121/59 L 128/53 L Pulse Oximetry 97 97 97 Oxygen Delivery Method Room Air Room Air Room Air Oxygen Flow Rate 2 Fraction of Inspired Oxygen 25 BMI result Body Mass Index 34.8 Labs 09/30/24 08:18 10/02/24 05:59 Labs: Laboratory Results - last 48 hr 09/30/24 09/30/24 09/30/24 08:18 15:59 18:57 Hold Purple Top Sodium Potassium Chloride Carbon Dioxide Anion Gap Creatinine Estim Creat Clear Calc Estimated GFR POC Glucose 104 Estimat Average Glucose 123 Hemoglobin A1c % 5.9 Random Vancomycin 9.8 L 10/01/24 10/01/24 10/02/24 06:03 12:00 05:59 Hold Purple Top SEE NOTE Sodium 140 Potassium 4.2 Chloride 111 H Carbon Dioxide 19 L Anion Gap 14 Creatinine 0.65 0.69 Estim Creat Clear Calc 198.8 187.3 Estimated GFR > 60 > 60 POC Glucose Estimat Average Glucose Hemoglobin A1c % Random Vancomycin 16.9 10/02/24 11:09 Hold Purple Top Sodium Potassium Chloride Carbon Dioxide Anion Gap Creatinine Estim Creat Clear Calc Estimated GFR POC Glucose Estimat Average Glucose Hemoglobin A1c % Random Vancomycin 23.4 H Imaging Radiology Impressions: ITS Impressions Abdomen/Pelvis CT 09/27/24 08:51 IMPRESSION: 1. The tip of the endotracheal tube is just above the javier. Repositioning is suggested. 2. The tip of the orogastric tube is at the thoracic inlet. The chinese medicine practitioner image demonstrates the tube to be coiled in the nasopharynx. Repositioning is recommended. 3. Findings consistent with near complete atelectasis of the right lower lobe. 4. Left lower lobe atelectasis versus pneumonia. 4. Splenomegaly. 5. Large amount of stool throughout the colon. 6. These findings were discussed with Dr. Sagastume in the emergency room on 09/27/2024 at 12:40 PM. Electronically signed by: Sang Moscoso MD 09/27/2024 12:40 PM EST RP Cervical Spine CT 09/27/24 08:[address]: [address] evidence for acute cervical spine injury or fracture. 2. Endotracheal tube in good position. 3. Orogastric tube loops in the posterior nasopharynx, with the tip in the distal trachea immediately abutting the endotracheal tube. This device should be repositioned. Electronically signed by: Adelso Munoz MD 09/27/2024 12:46 PM EST RP Chest X-Ray 09/27/24 10:26 IMPRESSION: 1. The tip of the endotracheal tube on the final image is approximately 2 cm above the javier. 2. An additional tube is seen with its tip at the level of the thoracic inlet which may represent an orogastric tube. Clinical correlation is required. 3. Low lung volumes. Left lower lobe atelectasis versus pneumonia. Electronically signed by: Sang Moscoso MD 09/27/2024 11:05 AM EST RP Chest X-Ray 09/27/24 11:00 IMPRESSION: 1. The tip of the right internal jugular central venous catheter is in the distal superior vena cava. No pneumothorax. 2. ET tube in place. An adjacent linear opacity may represent an orogastric tube with its tip of the thoracic inlet. If an orogastric tube has been placed, repositioning is recommended. Electronically signed by: Sang Moscoso MD 09/27/2024 11:15 AM EST RP Chest CT 09/27/24 11:39 IMPRESSION: 1. The tip of the endotracheal tube is just above the javier. Repositioning is suggested. 2. The tip of the orogastric tube is at the thoracic inlet. The chinese medicine practitioner image demonstrates the tube to be coiled in the nasopharynx. Repositioning is recommended. 3. Findings consistent with near complete atelectasis of the right lower lobe. 4. Left lower lobe atelectasis versus pneumonia. 4. Splenomegaly. 5. Large amount of stool throughout the colon. 6. These findings were discussed with Dr. Sagastume in the emergency room on 09/27/2024 at 12:40 PM. Electronically signed by: Sang Moscoso MD 09/27/2024 12:40 PM EST RP Head CT 09/27/24 11:39 IMPRESSION: 1. No acute intracranial abnormality. 2. Mild cerebellar tonsillar ectopia not meeting criteria for Chiari I malformation. 3. Patient is intubated. Enteric tube present, coiled in the posterior nasopharynx. The tip appears located within the trachea abutting the endotracheal tube. This should be repositioned. Electronically signed by: Adelso Munoz MD 09/27/2024 12:37 PM EST RP Chest X-Ray 09/27/24 12:48 IMPRESSION: NG tube in the airway, likely right mainstem bronchus to the right middle lung lobe rhonchi resulting in partial atelectasis. Discussed with the medical team taking care of patient at the time of the interpretation, 1:39 PM. Electronically signed by: Sheldon Nunes MD 09/27/2024 01:41 PM [facility] Medications Medications Current Medications Acetaminophen (Acetaminophen 325 Mg Tablet) 650 mg PO Q6H PRN PRN Reason: Fever >100.4 Last Admin: 10/01/24 18:39 Dose: 650 mg Baclofen (Baclofen 10 Mg Tablet) 10 mg PO BID [facility] Last Admin: 10/02/24 10:51 Dose: 10 mg Clonazepam (Clonazepam 1 Mg Tablet) 1 mg PO TID [facility] Last Admin: 10/02/24 07:59 Dose: 1 mg Clonidine HCl (Clonidine Hcl 0.1 Mg Tablet) 0.1 mg PO TID [facility]; Protocol Last Admin: 10/02/24 07:58 Dose: 0.1 mg Gabapentin (Gabapentin 300 Mg Capsule) 300 mg PO BEDTIME [facility] Last Admin: 10/01/24 20:49 Dose: 300 mg Gabapentin (Gabapentin 600 Mg Tablet) 600 mg PO TID [facility] Last Admin: 10/02/24 07:58 Dose: 600 mg Heparin Sodium (Porcine) (Heparin Sodium,Porcine 5,000 Unit/Ml Vial) 5,000 unit SUBCUT Q8H [facility] Last Admin: 10/02/24 04:09 Dose: Not Given Piperacillin Sod/Tazobactam (Sod 4.5 gm/ Sodium Chloride) 100 mls @ 200 mls/hr IV Q6H [facility] Last Infusion: 10/02/24 08:42 Dose: Infused Dextrose/Lactated Ringer's (D5lr) 1,000 mls @ 125 mls/hr IVCONT .Q8H [facility] Last Infusion: 10/02/24 12:07 Dose: 0 mls/hr Vancomycin HCl 1,250 mg/ (Sodium Chloride) 250 mls @ 166.667 mls/hr IV Q12H [facility] Methadone HCl (Methadone Hcl 20 Mg/2 Ml Oral.Conc) 170 mg PO DAILY@0800 [facility] Last Admin: 10/02/24 11:10 Dose: 170 mg Mirtazapine (Mirtazapine 7.5 Mg Tablet) 7.5 mg PO BEDTIME [facility] Last Admin: 10/01/24 20:48 Dose: 7.5 mg Naloxone HCl (Naloxone Hcl 0.4 Mg/Ml Vial) 0.2 mg IVPUSH Q2M PRN PRN Reason: Excessive sedation or RR < 8 Nicotine (Nicotine 14 Mg Patch.Td24) 14 mg TRANSDERMA DAILY [facility] Last Admin: 10/02/24 08:00 Dose: 14 mg Nicotine Polacrilex (Nicotine Polacrilex 2 Mg Gum) 2 mg BUCCAL Q2H PRN PRN Reason: Nicotine Cravings Last Admin: 10/02/24 07:58 Dose: 2 mg Oxycodone HCl (Oxycodone Hcl Immed Release 5 Mg Tablet) 10 mg PO Q4H PRN PRN Reason: Pain, Severe (Pain Scale 7-10) Last Admin: 10/02/24 09:12 Dose: 10 mg Pharmacy Consult (Consult Rx Vancomycin Dosing) 1 each MISCELLANE DAILY PRN PRN Reason: Consult order Quetiapine Fumarate (Quetiapine Fumarate 100 Mg Tablet) 100 mg PO BEDTIME PRN PRN Reason: Insomnia Allergies Allergies Allergy/AdvReac Type Severity Reaction Status Date / Time Pertussis Vaccines Allergy Mild HIVES Verified 09/27/24 08:23 [PERTUSSIS VACCINES] Assessment & Plan Assessment & Plan (1) Opioid use disorder: Status: Acute Code(s): F11.90 - Opioid use, unspecified, uncomplicated Assessment and Plan: * continue methadone dose as ordered--if pain persists, can split dose to see if this provides some relief * discussed pain management concerns with attending, Dr. Ruiz * will check in tomorrow Total time managing care of this patient today _30___ minutes.
[2024-10-02] MEDS: Heparin Sodium,Porcine 5,000 UNIT/ML VIAL 5000 UNIT SUBCUT ×2 (15:58→21:38)
[2024-10-02] MEDS: vancomycin HCL 1,250 MG in 0.9 % Sodium Chloride 250 ML 166.67 MG IV (19:51)
[2024-10-02] MEDS: Gabapentin 300 MG CAPSULE PO (21:37)
[2024-10-02] MEDS: Morphine Sulfate 2 MG/ML CARTRIDGE IVPUSH (21:37)
[2024-10-02] MEDS: Mirtazapine 7.5 MG TABLET PO (21:38)
[2024-10-02] MEDS: QUEtiapine Fumarate 100 MG TABLET PO (21:42)
[2024-10-03] MEDS: Dextrose 5 % and Lactated Ring 1,000 ML 125 ML IVCONT (00:34)
[2024-10-03] MEDS: Piperacillin Sodium/Tazobactam 4.5 GM in 0.9 % Sodium Chloride 100 ML IV ×4 (02:18→22:19)
[2024-10-03] MEDS: oxyCODONE HCl Immed Release 5 MG TABLET PO (02:23)
[2024-10-03 03:20] VITALS: BP 107/62; PULSE 66; RESP 18; TEMP 37.1; O2SAT 95
[2024-10-03 06:24] LABS: Creatinine Clr Calc Pharmacy 184.6; Estimated Glomerular Filt Rate > 60
[2024-10-03 08:13] VITALS: BP 104/65; PULSE 64; RESP 16; TEMP 37; O2SAT 96
[2024-10-03] MEDS: methADONE HCl 20 MG/2 ML ORAL.CONC 170 MG PO (08:49)
[2024-10-03] MEDS: clonazePAM 1 MG TABLET PO ×3 (08:50→20:18)
[2024-10-03] MEDS: cloNIDine HCL 0.1 MG TABLET PO ×3 (08:50→20:18)
[2024-10-03] MEDS: Gabapentin 600 MG TABLET PO ×3 (08:50→20:17)
[2024-10-03] MEDS: Baclofen 10 MG TABLET PO ×2 (08:50→20:17)
[2024-10-03] MEDS: Nicotine 14 MG PATCH.TD24 TRANSDERMA (08:54)
[2024-10-03] MEDS: vancomycin HCL 1,250 MG in 0.9 % Sodium Chloride 250 ML 166.67 MG IV (08:55)
--- NOTE | 2024-10-03 10:10 | HO.POSTANES ---
Post Anesthesia Evaluation Post Anesthesia Evaluation Date of Service: 10/03/24 Vital Signs: Vital Signs Temp Pulse Resp BP Pulse Ox O2 Del Method 10/03/24 08:13 98.6 F 64 16 104/65 96 Room Air 10/03/24 03:20 98.8 F 66 18 107/62 95 Room Air Anesthesia: General LMA Mental Status: Awake Pain Control: Satisfactory Nausea/Vomiting: None Hydration: Adequate Anesthesia-Related Issues: No Anes. Related Issues
[2024-10-03] MEDS: Morphine Sulfate 2 MG/ML CARTRIDGE IVPUSH (11:19)
--- NOTE | 2024-10-03 13:32 | MHC.CM.PN ---
Per MD rounds patient not medically cleared for dc. CM will continue to follow.
[2024-10-03] MEDS: Nicotine Polacrilex 2 MG GUM BUCCAL ×2 (13:33→20:27)
[2024-10-03] MEDS: Heparin Sodium,Porcine 5,000 UNIT/ML VIAL 5000 UNIT SUBCUT ×2 (13:33→20:23)
--- NOTE | 2024-10-03 14:17 | P.PNGS_ITS ---
Subjective Subjective Date of Service: 10/03/24 Interval history: Sleepy this morning. Reports pain at forearms. Physical Exam 2 Vital Signs: Vital Signs: Last Vital Signs Temp 98.6 F 10/03/24 08:13 Pulse 64 10/03/24 08:13 Resp 16 10/03/24 08:13 BP 104/65 10/03/24 08:13 Pulse Ox 96 10/03/24 08:13 O2 Del Method Room Air 10/03/24 08:13 O2 Flow Rate 2 10/02/24 15:25 FiO2 25 10/02/24 15:25 BMI result Body Mass Index 34.8 Const: General: comfortable and tired appearing Extrem: Other: dressings c/d/i on b/l forearms Objective Data Active Medications Acetaminophen (Acetaminophen 325 Mg Tablet) 650 mg PO Q6H PRN PRN Reason: Fever >100.4 Last Admin: 10/01/24 18:39 Dose: 650 mg Documented By: DEANDRE Baclofen (Baclofen 10 Mg Tablet) 10 mg PO BID [facility] Last Admin: 10/03/24 08:50 Dose: 10 mg Documented By: TALITA Clonazepam (Clonazepam 1 Mg Tablet) 1 mg PO TID [facility] Last Admin: 10/03/24 08:50 Dose: 1 mg Documented By: TALITA Clonidine HCl (Clonidine Hcl 0.1 Mg Tablet) 0.1 mg PO TID [facility]; Protocol Last Admin: 10/03/24 08:50 Dose: 0.1 mg Documented By: TALITA Gabapentin (Gabapentin 300 Mg Capsule) 300 mg PO BEDTIME [facility] Last Admin: 10/02/24 21:37 Dose: 300 mg Documented By: RUTHIE Gabapentin (Gabapentin 600 Mg Tablet) 600 mg PO TID [facility] Last Admin: 10/03/24 08:50 Dose: 600 mg Documented By: TALITA Heparin Sodium (Porcine) (Heparin Sodium,Porcine 5,000 Unit/Ml Vial) 5,000 unit SUBCUT Q8H [facility] Last Admin: 10/03/24 13:33 Dose: 5,000 unit Documented By: TALITA Piperacillin Sod/Tazobactam (Sod 4.5 gm/ Sodium Chloride) 100 mls @ 200 mls/hr IV Q6H [facility] Last Infusion: 10/03/24 12:19 Dose: Infused Documented By: TALITA Vancomycin HCl 1,250 mg/ (Sodium Chloride) 250 mls @ 166.667 mls/hr IV Q12H [facility] Last Infusion: 10/03/24 12:19 Dose: Infused Documented By: TALITA Methadone HCl (Methadone Hcl 20 Mg/2 Ml Oral.Conc) 170 mg PO DAILY@0800 [facility] Last Admin: 10/03/24 08:49 Dose: 170 mg Documented By: TALITA Co-signed By: CASSIUS Mirtazapine (Mirtazapine 7.5 Mg Tablet) 7.5 mg PO BEDTIME [facility] Last Admin: 10/02/24 21:38 Dose: 7.5 mg Documented By: RUTHIE Morphine Sulfate (Morphine Sulfate 2 Mg/Ml Cartridge) 2 mg IVPUSH Q4H PRN; Protocol PRN Reason: Pain, Severe (Pain Scale 7-10) Last Admin: 10/03/24 11:19 Dose: 2 mg Documented By: TALITA Naloxone HCl (Naloxone Hcl 0.4 Mg/Ml Vial) 0.2 mg IVPUSH Q2M PRN PRN Reason: Excessive sedation or RR < 8 Nicotine (Nicotine 14 Mg Patch.Td24) 14 mg TRANSDERMA DAILY [facility] Last Admin: 10/03/24 08:54 Dose: 14 mg Documented By: TALITA Nicotine Polacrilex (Nicotine Polacrilex 2 Mg Gum) 2 mg BUCCAL Q2H PRN PRN Reason: Nicotine Cravings Last Admin: 10/03/24 13:33 Dose: 2 mg Documented By: TALITA Oxycodone HCl (Oxycodone Hcl Immed Release 5 Mg Tablet) 5 mg PO Q4H PRN PRN Reason: Pain, Moderate(Pain Scale 4-6) Last Admin: 10/03/24 02:23 Dose: 5 mg Documented By: RUTHIE Pharmacy Consult (Consult Rx Vancomycin Dosing) 1 each MISCELLANE DAILY PRN PRN Reason: Consult order Quetiapine Fumarate (Quetiapine Fumarate 100 Mg Tablet) 100 mg PO BEDTIME PRN PRN Reason: Insomnia Last Admin: 10/02/24 21:42 Dose: 100 mg Documented By: RUTHIE Labs 09/30/24 08:18 10/03/24 05:40 Labs: Laboratory Results - last 24 hr 10/03/24 05:40 Hold Purple Top SEE NOTE Estim Creat Clear Calc 184.6 Estimated GFR > 60 Microbiology Microbiology Results: Microbiology 09/27/24 08:49 Blood Culture - Preliminary Blood - Venous Acinetobacter haemolyticus 09/27/24 08:49 Blood Culture - Final Blood - Venous No growth after 5 days. Procedures Date of Service Date of Service: 10/03/24 Progress Note: A&P Assessment and plan (1) Arm ulcer: Status: Acute (2) Acute encephalopathy: Status: Acute Plan POD #1 s/p debridement of bilateral upper extremity skin ulcers. Dressings clean and intact this morning. Will plan for dressing change tomorrow. Time Spent With Patient Time: Total time managing care of this patient today ____ minutes. Quality Stroke Does the patient have a stroke diagnosis?: No VTE Prior VTE?: No VTE Risk Level:: Medical - moderate - high VTE Device Contraindication: Treatment Not Indicated VTE Drug Contraindication: N/A - Med Ordered
[2024-10-03 15:10] VITALS: BP 114/66; PULSE 87; RESP 15; TEMP 36.1; O2SAT 94
--- NOTE | 2024-10-03 17:06 | HO.PM.IMPN ---
Subjective Subjective Date of Service: 10/03/24 Interval History: Complaining of bilateral arm pain requesting for higher dose of narcotics, does not want to go up on dose of methadone Tolerating diet denies nausea, no vomiting, no abdominal pain, last bowel movement September 29. Review of Systems All other system reviewed and are negative. Physical Exam Vital Signs: Vital Signs: Last Vital Signs Temp 96.9 F 10/03/24 15:10 Pulse 87 10/03/24 15:10 Resp 15 10/03/24 15:10 BP 114/66 10/03/24 15:10 Pulse Ox 94 10/03/24 15:10 O2 Del Method Room Air 10/03/24 15:10 O2 Flow Rate 2 10/02/24 15:25 FiO2 25 10/02/24 15:25 BMI result Body Mass Index 34.8 Const: Other: General resting comfortably in no acute distress. Neck no JVD. CVS regular rate rhythm, Respiratory lungs clear to auscultation, no respiratory distress Gastrointestinal abdomen soft, non tender, bowel sounds audible Extremities LE no edema. Bilateral upper extremity dressing in place no drainage noted Neuro non focal Psych appropriate affect Objective Data Active Medications Acetaminophen (Acetaminophen 325 Mg Tablet) 650 mg PO Q6H PRN PRN Reason: Fever >100.4 Last Admin: 10/01/24 18:39 Dose: 650 mg Documented By: DEANDRE Baclofen (Baclofen 10 Mg Tablet) 10 mg PO BID [facility] Last Admin: 10/03/24 08:50 Dose: 10 mg Documented By: TALITA Clonazepam (Clonazepam 1 Mg Tablet) 1 mg PO TID [facility] Last Admin: 10/03/24 15:38 Dose: 1 mg Documented By: TALITA Clonidine HCl (Clonidine Hcl 0.1 Mg Tablet) 0.1 mg PO TID [facility]; Protocol Last Admin: 10/03/24 15:38 Dose: 0.1 mg Documented By: TALITA Gabapentin (Gabapentin 300 Mg Capsule) 300 mg PO BEDTIME [facility] Last Admin: 10/02/24 21:37 Dose: 300 mg Documented By: RUTHIE Gabapentin (Gabapentin 600 Mg Tablet) 600 mg PO TID [facility] Last Admin: 10/03/24 15:38 Dose: 600 mg Documented By: TALITA Heparin Sodium (Porcine) (Heparin Sodium,Porcine 5,000 Unit/Ml Vial) 5,000 unit SUBCUT Q8H [facility] Last Admin: 10/03/24 13:33 Dose: 5,000 unit Documented By: TALITA Piperacillin Sod/Tazobactam (Sod 4.5 gm/ Sodium Chloride) 100 mls @ 200 mls/hr IV Q6H [facility] Last Admin: 10/03/24 15:40 Dose: 200 mls/hr Documented By: TALITA Vancomycin HCl 1,250 mg/ (Sodium Chloride) 250 mls @ 166.667 mls/hr IV Q12H [facility] Last Infusion: 10/03/24 12:19 Dose: Infused Documented By: TALITA Methadone HCl (Methadone Hcl 20 Mg/2 Ml Oral.Conc) 170 mg PO DAILY@0800 [facility] Last Admin: 10/03/24 08:49 Dose: 170 mg Documented By: TALITA Co-signed By: CASSIUS Mirtazapine (Mirtazapine 7.5 Mg Tablet) 7.5 mg PO BEDTIME [facility] Last Admin: 10/02/24 21:38 Dose: 7.5 mg Documented By: RUTHIE Morphine Sulfate (Morphine Sulfate 2 Mg/Ml Cartridge) 2 mg IVPUSH Q4H PRN; Protocol PRN Reason: Pain, Severe (Pain Scale 7-10) Last Admin: 10/03/24 11:19 Dose: 2 mg Documented By: TALITA Naloxone HCl (Naloxone Hcl 0.4 Mg/Ml Vial) 0.2 mg IVPUSH Q2M PRN PRN Reason: Excessive sedation or RR < 8 Nicotine (Nicotine 14 Mg Patch.Td24) 14 mg TRANSDERMA DAILY [facility] Last Admin: 10/03/24 08:54 Dose: 14 mg Documented By: TALITA Nicotine Polacrilex (Nicotine Polacrilex 2 Mg Gum) 2 mg BUCCAL Q2H PRN PRN Reason: Nicotine Cravings Last Admin: 10/03/24 13:33 Dose: 2 mg Documented By: TALITA Oxycodone HCl (Oxycodone Hcl Immed Release 5 Mg Tablet) 5 mg PO Q4H PRN PRN Reason: Pain, Moderate(Pain Scale 4-6) Last Admin: 10/03/24 02:23 Dose: 5 mg Documented By: RUTHIE Pharmacy Consult (Consult Rx Vancomycin Dosing) 1 each MISCELLANE DAILY PRN PRN Reason: Consult order Quetiapine Fumarate (Quetiapine Fumarate 100 Mg Tablet) 100 mg PO BEDTIME PRN PRN Reason: Insomnia Last Admin: 10/02/24 21:42 Dose: 100 mg Documented By: RUTHIE Labs 09/30/24 08:18 10/03/24 05:40 Labs: Laboratory Results - last 24 hr 10/03/24 05:40 Hold Purple Top SEE NOTE Estim Creat Clear Calc 184.6 Estimated GFR > 60 Microbiology Microbiology Results: Microbiology 09/27/24 08:49 Blood Culture - Preliminary Blood - Venous Acinetobacter haemolyticus Assessment and Plan (1) Acute encephalopathy: Status: Acute (2) Mood disorder: Status: Acute (3) Soft tissue infection: Status: Acute Plan 34 years old male with PMH of drug abuse, recent cellulitis who presented to the hospital with worsening RUE open wounds with associated pain and drainage. Bilateral forearm infection with multiple infected ulcers secondary to habitual IV xylazine ingestion into the site--see pictures Blood culture /2 positive for Acinetobacter haemolyticus, no fevers, normal WBC On IV vancomycin and Zosyn since 09/27 Underwent debridement by General surgery on 10/02 please see pictures in surgical progress notes Continue dressing changes ID consult Increase dose of oxycodone and morphine due to acute pain post debridement s/p Intubation in ICU d/t agitation, encephalopathy related to drug use, resolved IVDU. Fentanyl, cocaine continue methadone Being followed by Addiction Team Mood disorder/depression no SI Continue continue home meds Code status: Full DVT prophylaxis: Early ambulation need for inpatient: r right arm cellulitis and deep tissue infection for treatment with IV antibiotics and close post debridement care Dispo: home Quality Stroke Does the patient have a stroke diagnosis?: No VTE Prior VTE?: No VTE Risk Level:: Medical - moderate - high VTE Device Contraindication: Treatment Not Indicated VTE Drug Contraindication: N/A - Med Ordered
[2024-10-03] MEDS: Morphine Sulfate 2 MG/ML CARTRIDGE 3 MG IVPUSH ×2 (17:26→22:16)
[2024-10-03 19:00] LABS: Vancomycin Random 8.8 mcg/mL (15-20)
[2024-10-03 19:17] VITALS: BP 115/69; PULSE 85; RESP 16; TEMP 36.9; O2SAT 94
[2024-10-03] MEDS: oxyCODONE HCl Immed Release 5 MG TABLET 7.5 MG PO (20:16)
[2024-10-03] MEDS: Gabapentin 300 MG CAPSULE PO (20:17)
[2024-10-03] MEDS: Mirtazapine 7.5 MG TABLET PO (20:18)
[2024-10-03] MEDS: vancomycin HCL 1,500 MG in 0.9 % Sodium Chloride 500 ML 333.33 MG IV (20:23)
[2024-10-04 04:00] VITALS: BP 111/66; PULSE 69; RESP 16; TEMP 36.1; O2SAT 96
[2024-10-04] MEDS: Morphine Sulfate 2 MG/ML CARTRIDGE 3 MG IVPUSH ×2 (04:04→09:13)
[2024-10-04] MEDS: Piperacillin Sodium/Tazobactam 4.5 GM in 0.9 % Sodium Chloride 100 ML IV ×2 (04:12→09:16)
[2024-10-04] MEDS: Heparin Sodium,Porcine 5,000 UNIT/ML VIAL 5000 UNIT SUBCUT ×3 (04:12→20:28)
[2024-10-04 07:05] VITALS: BP 109/65; PULSE 67; RESP 18; TEMP 36.1; O2SAT 95
[2024-10-04 07:20] LABS: Estimated Glomerular Filt Rate > 60
[2024-10-04] MEDS: methADONE HCl 20 MG/2 ML ORAL.CONC 170 MG PO (07:33)
[2024-10-04] MEDS: vancomycin HCL 1,500 MG in 0.9 % Sodium Chloride 500 ML 333.33 MG IV (07:34)
[2024-10-04] MEDS: cloNIDine HCL 0.1 MG TABLET PO ×3 (08:30→20:27)
[2024-10-04] MEDS: clonazePAM 1 MG TABLET PO ×3 (08:31→20:28)
[2024-10-04] MEDS: Nicotine 14 MG PATCH.TD24 TRANSDERMA (08:31)
[2024-10-04] MEDS: Baclofen 10 MG TABLET PO ×2 (08:31→20:28)
[2024-10-04] MEDS: Gabapentin 600 MG TABLET PO ×3 (08:31→20:27)
[2024-10-04] MEDS: Nicotine Polacrilex 2 MG GUM BUCCAL ×4 (08:39→18:28)
[2024-10-04] MEDS: oxyCODONE HCl Immed Release 5 MG TABLET 7.5 MG PO ×3 (11:08→22:06)
--- NOTE | 2024-10-04 12:02 | PM.PNGS ---
Subjective Subjective Date of Service: 10/04/24 Interval history: Continues to c/o pain at wound sites. Reports morphine does not really alleviate pain at all and wears off quickly. Physical Exam Vital Signs: Vital Signs: Last Vital Signs Temp 97.0 F 10/04/24 07:05 Pulse 67 10/04/24 07:05 Resp 18 10/04/24 07:05 BP 109/65 10/04/24 07:05 Pulse Ox 95 10/04/24 07:05 O2 Del Method Room Air 10/04/24 07:05 O2 Flow Rate 2 10/02/24 15:25 FiO2 25 10/02/24 15:25 BMI result Body Mass Index 34.8 Const: General: comfortable, no acute distress and alert Skin: Other: left and right forearm ulcers with good granulation tissue, no necrosis or purulence noted, some scattered healed epidermis right forearm Objective Data Active Medications Acetaminophen (Acetaminophen 325 Mg Tablet) 650 mg PO Q6H PRN PRN Reason: Fever >100.4 Last Admin: 10/01/24 18:39 Dose: 650 mg Documented By: DEANDRE Baclofen (Baclofen 10 Mg Tablet) 10 mg PO BID [facility] Last Admin: 10/04/24 08:31 Dose: 10 mg Documented By: MICHAEL Clonazepam (Clonazepam 1 Mg Tablet) 1 mg PO TID [facility] Last Admin: 10/04/24 08:31 Dose: 1 mg Documented By: MICHAEL Clonidine HCl (Clonidine Hcl 0.1 Mg Tablet) 0.1 mg PO TID [facility]; Protocol Last Admin: 10/04/24 08:30 Dose: 0.1 mg Documented By: MICHAEL Gabapentin (Gabapentin 300 Mg Capsule) 300 mg PO BEDTIME [facility] Last Admin: 10/03/24 20:17 Dose: 300 mg Documented By: ADA Gabapentin (Gabapentin 600 Mg Tablet) 600 mg PO TID [facility] Last Admin: 10/04/24 08:31 Dose: 600 mg Documented By: MICHAEL Heparin Sodium (Porcine) (Heparin Sodium,Porcine 5,000 Unit/Ml Vial) 5,000 unit SUBCUT Q8H [facility] Last Admin: 10/04/24 04:12 Dose: 5,000 unit Documented By: ADA Hydromorphone HCl (Hydromorphone Hcl 0.5 Mg/0.5 Ml Syringe) 0.5 mg IVPUSH ONCE ONE; Protocol Stop: 10/04/24 12:01 Hydromorphone HCl (Hydromorphone Hcl 0.5 Mg/0.5 Ml Syringe) 0.5 mg IVPUSH Q4H PRN; Protocol PRN Reason: Pain, Severe (Pain Scale 7-10) Piperacillin Sod/Tazobactam (Sod 4.5 gm/ Sodium Chloride) 100 mls @ 200 mls/hr IV Q6H [facility] Last Infusion: 10/04/24 09:57 Dose: Infused Documented By: MICHAEL Methadone HCl (Methadone Hcl 20 Mg/2 Ml Oral.Conc) 170 mg PO DAILY@0800 [facility] Last Admin: 10/04/24 07:33 Dose: 170 mg Documented By: MICHAEL Co-signed By: SAUMYA Mirtazapine (Mirtazapine 7.5 Mg Tablet) 7.5 mg PO BEDTIME [facility] Last Admin: 10/03/24 20:18 Dose: 7.5 mg Documented By: ADA Naloxone HCl (Naloxone Hcl 0.4 Mg/Ml Vial) 0.2 mg IVPUSH Q2M PRN PRN Reason: Excessive sedation or RR < 8 Nicotine (Nicotine 14 Mg Patch.Td24) 14 mg TRANSDERMA DAILY [facility] Last Admin: 10/04/24 08:31 Dose: 14 mg Documented By: MICHAEL Nicotine Polacrilex (Nicotine Polacrilex 2 Mg Gum) 2 mg BUCCAL Q2H PRN PRN Reason: Nicotine Cravings Last Admin: 10/04/24 11:07 Dose: 2 mg Documented By: MICHAEL Oxycodone HCl (Oxycodone Hcl Immed Release 5 Mg Tablet) 7.5 mg PO Q4H PRN PRN Reason: Pain, Moderate(Pain Scale 4-6) Last Admin: 10/04/24 11:08 Dose: 7.5 mg Documented By: MICHAEL Pharmacy Consult (Consult Rx Vancomycin Dosing) 1 each MISCELLANE DAILY PRN PRN Reason: Consult order Quetiapine Fumarate (Quetiapine Fumarate 100 Mg Tablet) 100 mg PO BEDTIME PRN PRN Reason: Insomnia Last Admin: 10/02/24 21:42 Dose: 100 mg Documented By: RUTHIE Labs 09/30/24 08:18 10/04/24 05:44 Labs: Laboratory Results - last 24 hr 10/03/24 10/04/24 18:35 05:44 Hold Purple Top SEE NOTE Estim Creat Clear Calc 190.0 Estimated GFR > 60 Random Vancomycin 8.8 L Microbiology Microbiology Results: Microbiology 09/27/24 08:49 Blood Culture - Preliminary Blood - Venous Acinetobacter haemolyticus Procedures Date of Service Date of Service: 10/04/24 Progress Note: A&P Assessment and plan (1) Arm ulcer: Status: Acute Plan POD #2 s/p debridement of bilateral upper extremity skin ulcers. Ulcers overall clean appearing and granulating well. No further debridement needed. Can continue local wound care with curad oil based dressing to wound base itself followed silver alginate, fluffs, kerlix and stockinette; change every other day. Time Spent With Patient Time: Total time managing care of this patient today ____ minutes. Quality Stroke Does the patient have a stroke diagnosis?: No VTE Prior VTE?: No VTE Risk Level:: Medical - moderate - high VTE Device Contraindication: Treatment Not Indicated VTE Drug Contraindication: N/A - Med Ordered
[2024-10-04] MEDS: HYDROmorphone HCl 0.5 MG/0.5 ML SYRINGE IVPUSH ×3 (12:08→20:49)
--- NOTE | 2024-10-04 12:41 | HO.PM.IMPN ---
Subjective Subjective Date of Service: 10/04/24 Interval History: Good pain control, tolerating diet, no constipation, dressing change by General surgery, denies fever, no chills, no acute events overnight Review of Systems All other system reviewed and are negative. Physical Exam Vital Signs: Vital Signs: Last Vital Signs Temp 97.0 F 10/04/24 07:05 Pulse 67 10/04/24 07:05 Resp 18 10/04/24 07:05 BP 109/65 10/04/24 07:05 Pulse Ox 95 10/04/24 07:05 O2 Del Method Room Air 10/04/24 07:05 O2 Flow Rate 2 10/02/24 15:25 FiO2 25 10/02/24 15:25 BMI result Body Mass Index 34.8 Const: Other: General resting comfortably in no acute distress. Neck no JVD. CVS regular rate rhythm, Respiratory lungs clear to auscultation, no respiratory distress Gastrointestinal abdomen soft, non tender, bowel sounds audible Extremities LE no edema. Bilateral upper extremity dressing in place no drainage noted Neuro non focal Psych appropriate affect Objective Data Active Medications Acetaminophen (Acetaminophen 325 Mg Tablet) 650 mg PO Q6H PRN PRN Reason: Fever >100.4 Last Admin: 10/01/24 18:39 Dose: 650 mg Documented By: DEANDRE Baclofen (Baclofen 10 Mg Tablet) 10 mg PO BID [facility] Last Admin: 10/04/24 08:31 Dose: 10 mg Documented By: MICHAEL Clonazepam (Clonazepam 1 Mg Tablet) 1 mg PO TID [facility] Last Admin: 10/04/24 08:31 Dose: 1 mg Documented By: MICHAEL Clonidine HCl (Clonidine Hcl 0.1 Mg Tablet) 0.1 mg PO TID [facility]; Protocol Last Admin: 10/04/24 08:30 Dose: 0.1 mg Documented By: MICHAEL Gabapentin (Gabapentin 300 Mg Capsule) 300 mg PO BEDTIME [facility] Last Admin: 10/03/24 20:17 Dose: 300 mg Documented By: ADA Gabapentin (Gabapentin 600 Mg Tablet) 600 mg PO TID [facility] Last Admin: 10/04/24 08:31 Dose: 600 mg Documented By: MICHAEL Heparin Sodium (Porcine) (Heparin Sodium,Porcine 5,000 Unit/Ml Vial) 5,000 unit SUBCUT Q8H [facility] Last Admin: 10/04/24 12:08 Dose: 5,000 unit Documented By: MICHAEL Hydromorphone HCl (Hydromorphone Hcl 0.5 Mg/0.5 Ml Syringe) 0.5 mg IVPUSH Q4H PRN; Protocol PRN Reason: Pain, Severe (Pain Scale 7-10) Piperacillin Sod/Tazobactam (Sod 4.5 gm/ Sodium Chloride) 100 mls @ 200 mls/hr IV Q6H [facility] Last Infusion: 10/04/24 09:57 Dose: Infused Documented By: MICHAEL Methadone HCl (Methadone Hcl 20 Mg/2 Ml Oral.Conc) 170 mg PO DAILY@0800 [facility] Last Admin: 10/04/24 07:33 Dose: 170 mg Documented By: MICHAEL Co-signed By: SAUMYA Mirtazapine (Mirtazapine 7.5 Mg Tablet) 7.5 mg PO BEDTIME [facility] Last Admin: 10/03/24 20:18 Dose: 7.5 mg Documented By: ADA Naloxone HCl (Naloxone Hcl 0.4 Mg/Ml Vial) 0.2 mg IVPUSH Q2M PRN PRN Reason: Excessive sedation or RR < 8 Nicotine (Nicotine 14 Mg Patch.Td24) 14 mg TRANSDERMA DAILY [facility] Last Admin: 10/04/24 08:31 Dose: 14 mg Documented By: MICHAEL Nicotine Polacrilex (Nicotine Polacrilex 2 Mg Gum) 2 mg BUCCAL Q2H PRN PRN Reason: Nicotine Cravings Last Admin: 10/04/24 11:07 Dose: 2 mg Documented By: MICHAEL Oxycodone HCl (Oxycodone Hcl Immed Release 5 Mg Tablet) 7.5 mg PO Q4H PRN PRN Reason: Pain, Moderate(Pain Scale 4-6) Last Admin: 10/04/24 11:08 Dose: 7.5 mg Documented By: MICHAEL Pharmacy Consult (Consult Rx Vancomycin Dosing) 1 each MISCELLANE DAILY PRN PRN Reason: Consult order Quetiapine Fumarate (Quetiapine Fumarate 100 Mg Tablet) 100 mg PO BEDTIME PRN PRN Reason: Insomnia Last Admin: 10/02/24 21:42 Dose: 100 mg Documented By: RUTHIE Labs 09/30/24 08:18 10/04/24 05:44 Labs: Laboratory Results - last 24 hr 10/03/24 10/04/24 18:35 05:44 Hold Purple Top SEE NOTE Estim Creat Clear Calc 190.0 Estimated GFR > 60 Random Vancomycin 8.8 L Microbiology Microbiology Results: Microbiology 09/27/24 08:49 Blood Culture - Preliminary Blood - Venous Acinetobacter haemolyticus Assessment and Plan (1) Acute encephalopathy: Status: Acute (2) Soft tissue infection: Status: Acute Plan 34 years old male with PMH of drug abuse, recent cellulitis who presented to the hospital with worsening RUE open wounds with associated pain and drainage. Bilateral forearm infection with multiple infected ulcers secondary to habitual IV xylazine ingestion into the site--see pictures Blood culture 08/02 positive for Acinetobacter haemolyticus, no fevers, normal WBC s/p IV vancomycin 09/27 thru 10/03 and cont. iv Zosyn since 09/27 Underwent debridement by General surgery on 10/02 Ulcers look clean with granulation tissue, dressing change by General surgery today, they recommend local wound care with curette all base dressing to wound base itself followed by silver alginate, fluffs, Kerlix and change every other day ID consult for choice and duration of antibiotic on oxycodone and iv morphine for pain, DC IV morphine after today s/p Intubation in ICU d/t agitation, encephalopathy related to drug use, resolved IVDU. Fentanyl, cocaine continue methadone Being followed by Addiction Team Mood disorder/depression no SI Continue continue home meds Code status: Full DVT prophylaxis: Early ambulation need for inpatient: b/l deep tissue infection for treatment with IV antibiotics and close post debridement care Dispo: home Quality Stroke Does the patient have a stroke diagnosis?: No VTE Prior VTE?: No VTE Risk Level:: Medical - moderate - high VTE Device Contraindication: Treatment Not Indicated VTE Drug Contraindication: N/A - Med Ordered
[2024-10-04] MEDS: levoFLOXacin 500 MG TABLET PO (14:14)
[2024-10-04] MEDS: Amoxicillin/Potassium Clav 875 MG TABLET PO (14:14)
[2024-10-04 15:03] VITALS: BP 122/81; PULSE 105; RESP 16; TEMP 36.3; O2SAT 96
[2024-10-04 19:15] VITALS: BP 120/74; PULSE 84; RESP 16; TEMP 36.1; O2SAT 95
[2024-10-04] MEDS: Mirtazapine 7.5 MG TABLET PO (20:27)
[2024-10-04] MEDS: Gabapentin 300 MG CAPSULE PO (20:27)
--- NOTE | 2024-10-04 23:52 | P.CNID_ITS ---
History of Present Illness Data of Consult Service Date: 10/04/24 Requesting physician: Clarence Lewis Primary Care Provider: Orlando Mahmood III, MD HPI Reason for consult: acenitobacter hemolyticus bacteremia, arm wounds He presents with bilateral arm wounds. He injects xylazine with fentanyl into arms He denies endocarditis or spinal OM. He has one blood culture back on 09/27 acenitobacter hemolyticus and one coag neg staph. He feels better and is getting arm wounds debrided. Review of Systems 2 Review of Systems: Yes all other systems are reviewed and are negative [facility] Past Medical History Medical History (Updated 10/04/24 @ 23:56 by Lachelle Peterson MD) Bacteremia Arm ulcer MRSA bacteremia Suicidal ideation Depression Cocaine use with cocaine-induced disorder Opiate dependence, continuous Major depressive disorder, recurrent severe without psychotic features Depression Anxiety IVDU (intravenous drug user) Asthma Family History Family History Father Heart disease Family history: reviewed and not pertinent Social History Social History Household Members: Family Household Members Other:: mother Housing: House Housing Other:: lives with parents Are you a primary emergency care attendant to a significant other at home: No Do you presently have visiting nurse or other home services: No Alcohol intake: unknown Comment: counts correct Patient Tobacco Use Status: Current everyday Tobacco user Tobacco use type: Cigarette Cigarette Packs Per Day: 1 Cigarettes Per Day: 20.0 Years Smoked: 15 Smoked in Last 30 Days: Yes e-Cigarette/Vaping Use: Never Used Patient Interested in Nicotine Replacement: No Patient Given Instructions on How to Stop Smoking: No Second Hand Smoke Exposure: No Use of substances other than those prescribed or required for medical reasons: Yes Substance Use Type: Crack/Cocaine, Heroin, Marijuana, Opiates and Tranquilizers Substance Use Type Other:: methadone Substance Use Frequency: Daily Last Used Substance: Hours (ago) Currently Displaying Signs/Symptoms of Drug Intoxication Withdrawal: No Other Past Substance Use Problem:: Mom states she did not know he was using. Any prior treatment program specific to substance use: Yes (gets methadone daily) Have you been hit, kicked, punched, or otherwise hurt by someone within the past year? If so, by whom?: No Do you feel safe in your current relationship?: No Current Relationship Is there a partner from a previous relationship who is making you feel unsafe now?: No (per mother) Are you made to feel afraid or neglected: No (per mother) Spiritual Healthcare Practices: no per mother [facility] Practices: no per mother Cultural Healthcare Practices: no per mother Are you DNR?: No Advance Directives: No Advance Directives Information Provided: Yes Advance Directives on File: No Advance Directives Date on File: 01/30/21 Do you have a plan to hurt others: No Plan Recently lost weight without trying: No How much weight loss: Unsure Eating poorly because of decreased appetite: No Nutrition screen score: 2 Nutrition Risks: No Nutritional Risk Poor oral hygiene: No service: No Current occupational status: unemployed Sexual orientation: Straight/Heterosexual Meds Allergies Allergy/AdvReac Type Severity Reaction Status Date / Time Pertussis Vaccines Allergy Mild HIVES Verified 09/27/24 08:23 [PERTUSSIS VACCINES] Active Medications: Current Medications Acetaminophen (Acetaminophen 325 Mg Tablet) 650 mg PO Q6H PRN PRN Reason: Fever >100.4 Last Admin: 10/01/24 18:39 Dose: 650 mg Amoxicillin/Clavulanate Potassium (Amoxicillin/Potassium Clav 875 Mg Tablet) 875 mg PO Q12H [facility] Last Admin: 10/04/24 14:14 Dose: 875 mg Baclofen (Baclofen 10 Mg Tablet) 10 mg PO BID [facility] Last Admin: 10/04/24 20:28 Dose: 10 mg Clonazepam (Clonazepam 1 Mg Tablet) 1 mg PO TID [facility] Last Admin: 10/04/24 20:28 Dose: 1 mg Clonidine HCl (Clonidine Hcl 0.1 Mg Tablet) 0.1 mg PO TID [facility]; Protocol Last Admin: 10/04/24 20:27 Dose: 0.1 mg Gabapentin (Gabapentin 300 Mg Capsule) 300 mg PO BEDTIME [facility] Last Admin: 10/04/24 20:27 Dose: 300 mg Gabapentin (Gabapentin 600 Mg Tablet) 600 mg PO TID [facility] Last Admin: 10/04/24 20:27 Dose: 600 mg Heparin Sodium (Porcine) (Heparin Sodium,Porcine 5,000 Unit/Ml Vial) 5,000 unit SUBCUT Q8H [facility] Last Admin: 10/04/24 20:28 Dose: 5,000 unit Hydromorphone HCl (Hydromorphone Hcl 0.5 Mg/0.5 Ml Syringe) 0.5 mg IVPUSH Q4H PRN; Protocol PRN Reason: Pain, Severe (Pain Scale 7-10) Last Admin: 10/04/24 20:49 Dose: 0.5 mg Levofloxacin (Levofloxacin 500 Mg Tablet) 500 mg PO Q24H [facility] Last Admin: 10/04/24 14:14 Dose: 500 mg Methadone HCl (Methadone Hcl 20 Mg/2 Ml Oral.Conc) 170 mg PO DAILY@0800 [facility] Last Admin: 10/04/24 07:33 Dose: 170 mg Mirtazapine (Mirtazapine 7.5 Mg Tablet) 7.5 mg PO BEDTIME [facility] Last Admin: 10/04/24 20:27 Dose: 7.5 mg Naloxone HCl (Naloxone Hcl 0.4 Mg/Ml Vial) 0.2 mg IVPUSH Q2M PRN PRN Reason: Excessive sedation or RR < 8 Nicotine (Nicotine 14 Mg Patch.Td24) 14 mg TRANSDERMA DAILY [facility] Last Admin: 10/04/24 08:31 Dose: 14 mg Nicotine Polacrilex (Nicotine Polacrilex 2 Mg Gum) 2 mg BUCCAL Q2H PRN PRN Reason: Nicotine Cravings Last Admin: 10/04/24 18:28 Dose: 2 mg Oxycodone HCl (Oxycodone Hcl Immed Release 5 Mg Tablet) 7.5 mg PO Q4H PRN PRN Reason: Pain, Moderate(Pain Scale 4-6) Last Admin: 10/04/24 22:06 Dose: 7.5 mg Quetiapine Fumarate (Quetiapine Fumarate 100 Mg Tablet) 100 mg PO BEDTIME PRN PRN Reason: Insomnia Last Admin: 10/02/24 21:42 Dose: 100 mg Home Medications ?Medication ?Instructions ?Recorded ?Confirmed ?Last Taken ?Type methadone 10 mg/mL oral 170 mg PO DAILY 10/13/23 02/28/24 02/27/24 09:19 History concentrate (Methadone Intensol) clonazepam 1 mg tablet 1 mg PO TID 02/28/24 09/27/24 02/27/24 20:00 History clonidine HCl 0.1 mg tablet 0.1 mg PO TID 02/28/24 09/27/24 02/27/24 20:00 History gabapentin 300 mg capsule 300 mg PO BEDTIME 02/28/24 09/27/24 02/26/24 21:00 History gabapentin 600 mg tablet 600 mg PO TID 02/28/24 09/27/24 02/27/24 17:00 History mirtazapine 7.5 mg tablet 7.5 mg PO BEDTIME 02/28/24 09/27/24 02/26/24 21:00 History quetiapine 100 mg tablet 100 - 200 mg PO BEDTIME PRN 02/28/24 09/27/24 Unknown History Insomnia Physical Exam 2 Vital Signs: Vital Signs: Last Vital Signs Temp 96.9 F 10/04/24 19:15 Pulse 84 10/04/24 19:15 Resp 16 10/04/24 19:15 BP 120/74 10/04/24 19:15 Pulse Ox 95 10/04/24 19:15 O2 Del Method Room Air 10/04/24 19:15 O2 Flow Rate 2 10/02/24 15:25 FiO2 25 10/02/24 15:25 BMI result Body Mass Index 34.8 Extrem: Other: arms bilateral eschars Results Labs 09/30/24 08:18 10/04/24 05:44 Labs: BMP 10/04/24 05:44 Creatinine 0.68 Microbiology Microbiology Results: Microbiology 09/27/24 08:49 Blood - Venous Blood Culture - Preliminary Acinetobacter haemolyticus 09/27/24 08:49 Blood - Venous Blood Culture - Final No growth after 5 days. Assessment and Plan (1) Acute encephalopathy: Status: Acute (2) Opioid use disorder: Status: Acute (3) Arm ulcer: Qualifiers: Non-pressure ulcer stage: unspecified non-pressure ulcer stage Q ualified Code(s): L98.499 - Non-pressure chronic ulcer of skin of other sites with unspecified severity Status: Acute (4) Bacteremia: Status: Acute Plan He has possible contaminant or organism from arm wounds. Only one positive blood culture. He [facility]. There are no signs of OM or endocarditis clinically. Switch to po Augmentin and Levaquin for seven days. Follow up with his Methadone clinic at [facility].
[2024-10-05] MEDS: Amoxicillin/Potassium Clav 875 MG TABLET PO (01:29)
[2024-10-05 04:00] VITALS: BP 107/57; PULSE 70; RESP 18; TEMP 36.4; O2SAT 98
[2024-10-05] MEDS: HYDROmorphone HCl 0.5 MG/0.5 ML SYRINGE IVPUSH ×2 (04:41→09:38)
[2024-10-05] MEDS: Heparin Sodium,Porcine 5,000 UNIT/ML VIAL 5000 UNIT SUBCUT (04:42)
[2024-10-05 07:04] VITALS: BP 98/54; PULSE 68; RESP 17; TEMP 36.6; O2SAT 98
[2024-10-05] MEDS: methADONE HCl 20 MG/2 ML ORAL.CONC 170 MG PO (07:32)
[2024-10-05] MEDS: Nicotine 14 MG PATCH.TD24 TRANSDERMA (08:32)
[2024-10-05] MEDS: Gabapentin 600 MG TABLET PO (08:33)
[2024-10-05] MEDS: cloNIDine HCL 0.1 MG TABLET PO (08:33)
[2024-10-05] MEDS: Baclofen 10 MG TABLET PO (08:33)
[2024-10-05] MEDS: oxyCODONE HCl Immed Release 5 MG TABLET 7.5 MG PO (08:33)
[2024-10-05] MEDS: clonazePAM 1 MG TABLET PO (08:33)
--- NOTE | 2024-10-05 10:44 | MHC.CM.PN ---
Per MD rounds patient medically cleared for dc home w/ new VNA services via [facility] [facility] for wound care. Patient's mother will transport home ~12pm. RN aware.
[2024-10-05 11:24] VITALS: BP 117/59; PULSE 70; RESP 16; TEMP 36; O2SAT 97
--- NOTE | 2024-10-05 11:30 | P.F2F_ITS ---
Service Date Service Date: 10/05/24 Encounter Date of encounter: 10/05/24 Reasons for Services Signs and symptoms assessed: Bilateral arm wounds/encephalopathy resolved Reason for group home: wound care Homebound: Leaving the home is medically contraindicated at this time without the asist of a device and/or another person due th the listed conditions above and below. Reason homebound: weakness related to hospital stay Certification: Based on the above findings, I certify that this patient is confined to the home and needs intermittent group home care, physical therapy and/or speech therapy, or continues to need occupational therapy. The patient is under my care, and I have initiated the establishment of the plan of care. The patient will be followed by a physician who will periodically review the plan of care. Time Spent With Patient Time: Total time managing care of this patient today ____ minutes.
--- NOTE | 2024-10-05 11:31 | PM.DS ---
DS: Providers Provider Date of Service: 10/05/24 Date of admission: 09/27/24 12:08 Date of discharge: 10/05/24 Primary care physician: Orlando Mahmood III, MD Consults: 09/27/24 18:19 Consult to Wound Care Routine Reason for consultation: Arm wounds and finger wound 09/29/24 14:05 Addiction Medicine Routine Consulting Provider: Addiction Covering Reason for consultation: opioid use disorder 09/30/24 12:18 Consult to General Surgery Routine Consulting Provider: [facility] General Surgeons Reason for consultation: ? need for debridment of arm wound 10/03/24 17:15 Consult to Infectious Diseases Routine Consulting Provider: [facility] Reason for consultation: acinobacter haemolyticus Has provider been notified: No DS: Diagnosis Discharge Diagnosis (1) Acute encephalopathy: Status: Acute (2) Opioid use disorder: Status: Acute (3) Arm ulcer: Status: Acute (4) Bacteremia: Status: Acute DS: Summary Hospital Course Hospital Course: History of presenting illness : Date of Service: 09/27/24 Chief Complaint: Encephalopathy 34-year-old gentleman with underlying history of polysubstance abuse, diabetes mellitus, MRSA cellulitis admitted on 09/27/2024 with polysubstance abuse requiring multiple sedative drips and intubation for airway protection. Also noted to have excoriations of bilateral arms. Hospital course. 34 years old male with PMH of drug abuse, admitted to intensive care unit due to agitation, encephalopathy related to multiple drugs, requiring intubation for airway protection, postextubation patient transferred to medical floor. Bilateral forearm infection with multiple infected ulcers secondary to habitual IV xylazine injection into the site treated with IV vancomycin and IV Zosyn 09/27 thru 10/03, Blood culture 08/02 positive for Acinetobacter haemolyticus, had no fevers, normal WBC subsequently antibiotic changed to by mouth Levaquin and Augmentin, patient underwent debridement of bilateral wounds by General surgery on 10/02, Ulcers look clean with granulation tissue, general surgery recommend local wound care curad oil base dressing to wound base itself, followed by silver alginate, fluffs, Kerlix and change every other day, being discharged with VNA services. Recommend to continue oxycodone 5 mg to 7.5 mg for jujkuzxs-vb-dudsgy pain, outpatient follow-up with general surgery continue wound care as recommended. IVDU U tox positive for Fentanyl, cocaine, seen by Addiction Team continued of methadone. Mood disorder/depression Continue continue home meds. Tobacco use disorder counseling done recommend nicotine patch.. Time Attestation Discharge Coordination Time (in mins): 40 Quality: Safe Use of Opioids Does Pt have an Active Cancer Diagnosis on the Problem List?: No Quality: Stroke Does the patient have a stroke diagnosis?: No Physical Exam Vital Signs: Vital Signs: Last Vital Signs Temp 96.8 F 10/05/24 11:24 Pulse 70 10/05/24 11:24 Resp 16 10/05/24 11:24 BP 117/59 L 10/05/24 11:24 Pulse Ox 97 10/05/24 11:24 O2 Del Method Room Air 10/05/24 11:24 O2 Flow Rate 2 10/02/24 15:25 FiO2 25 10/02/24 15:25 BMI result Body Mass Index 34.8 Const: Other: General resting comfortably in no acute distress. Neck no JVD. CVS regular rate rhythm, Respiratory lungs clear to auscultation, no respiratory distress Gastrointestinal abdomen soft, non tender, bowel sounds audible Extremities LE no edema. Bilateral forearm ulcers looks clean, granulating well, no discharge, no foul odor Neuro non focal Psych appropriate affect DS: Data Data Completed and Pending Completed studies during hospitalization [Text1]: Procedures Excision of Duodenum, Via Natural or Artificial Opening Endoscopic, Diagnostic (01/01/24) Excision of Rectum, Via Natural or Artificial Opening Endoscopic, Diagnostic (01/01/24) Excision of Stomach, Pylorus, Via Natural or Artificial Opening Endoscopic, Diagnostic (01/01/24) Insertion of Infusion Device into Superior Vena Cava, Percutaneous Approach (12/06/22) Introduction of Vasopressor into Peripheral Vein, Percutaneous Approach (02/14/23) Transfusion of Nonautologous Red Blood Cells into Peripheral Vein, Percutaneous Approach (01/01/24) Ultrasonography of Superior Vena Cava, Guidance (12/06/22) Labs on day of discharge: Preliminary micro results at discharge 09/27/24 08:49 Blood Culture - Preliminary Blood - Venous Acinetobacter haemolyticus Discharge Plan Discharge Anticipated Discharge Date/Time: 10/05/24 11:16 Patient Disposition: Home Health Service Discharge Diagnosis: Acute toxic metabolic encephalopathy resolved Bilateral forearm infection Referrals: [facility] [Other] - 1 Week ([facility] will provide nursing for wound care) Orlando Mahmood III, MD [Primary Care Provider] - 1 Week Discharge Medications: New nicotine 14 mg/24 hr Patch 24 Hour 14 mg transdermal DAILY Qty: 30 0RF levofloxacin 500 mg Tablet 500 mg PO Q24H Qty: 6 0RF amoxicillin-pot clavulanate 875-125 mg Tablet 1 tab PO Q12H Qty: 12 0RF oxycodone 5 mg Tablet 5 mg PO Q4H PRN (Reason: Pain, Moderate(Pain Scale 4-6)) Qty: 24 0RF Rx Instructions: Partial Fill upon patient request. Take 1-//2 tablet as needed for hjepnmtz-yr-hfelww pain Continued methadone [Methadone Intensol] 10 mg/mL Concentrate 170 mg PO DAILY clonidine HCl 0.1 mg tablet 0.1 mg PO TID gabapentin 600 mg tablet 600 mg PO TID clonazepam 1 mg tablet 1 mg PO TID quetiapine 100 mg tablet 100 - 200 mg PO BEDTIME PRN (Reason: Insomnia) gabapentin 300 mg capsule 300 mg PO BEDTIME mirtazapine 7.5 mg tablet 7.5 mg PO BEDTIME Discharge Orders: Discharge Order (Routine); Ordered 10/05/24 Ordered By: Clarence Lewis Diet: Advance to usual diet Activity on Discharge: As tolerated Stand Alone Forms: Patient Portal Discharge page Print Language: Serbian Care Plan Goals: Bilateral upper extremity skin ulcers continue local wound care with curad oil based dressing to wound base itself followed silver alginate, fluffs, kerlix and stockinette; change every other day. Take oxycodone 5-7.5 mg as needed every 4 hours for wdzzczaf-as-sgjdzs pain, continue dressing change as above Continue methadone Take Levaquin and Augmentin for 6 more days as prescribed Health Concerns: Continue all home medications as above Plan of Treatment: Outpatient follow-up with primary care physician call for appointment Outpatient follow-up with general surgeon Dr. Prakash for wound check in 7-10 days call for appointment Assessment: As above
== END 2024-10-05 11:41 | disposition home health service (06) | DRG 812 ==
LOC: HO.ED 11:12 → HO.EDOVER 12:22 → HO.ICU 13:27 → HO.IMC 09-29 17:14 → HO.S3 09-30 15:57
PROVIDERS: Internal Medicine; Surgery; Admitting Provider Internal Medicine Pulmonary Disease; Emergency Provider Emergency Medicine; PCP Internal Medicine; Visit Provider Hospitalist
PROC: 0HBEXZZ Excision of Left Lower Arm Skin, External Approach (ICD-10-PCS; principal; 2024-10-02 16:10)
DX: T50.901A Poisoning by unspecified drugs, medicaments and biological substances, accidental (unintentional), initial encounter (principal); G92.8 Other toxic encephalopathy; I96 Gangrene, not elsewhere classified; F17.210 Nicotine dependence, cigarettes, uncomplicated; F11.20 Opioid dependence, uncomplicated; F32.A Depression, unspecified; B96.89 Other specified bacterial agents as the cause of diseases classified elsewhere; Z71.6 Tobacco abuse counseling; F19.10 Other psychoactive substance abuse, uncomplicated; L98.499 Non-pressure chronic ulcer of skin of other sites with unspecified severity; T42.7 Poisoning by, adverse effect of and underdosing of unspecified antiepileptic and sedative-hypnotic drugs; Z86.14 Personal history of Methicillin resistant Staphylococcus aureus infection; Z79.899 Other long term (current) drug therapy
CPT/HCPCS: 36415; 70450; 71045; 71260; 72125; 74177; 80048; 80051; 80053; 80202; 80307; 82040; 82565; 82803; 82947; 83036; 83605; 83735; 84100; 85025; 86850; 86900; 86901; 86923; 87040; 87205; 93005; 94002; 94003; 99284; J0131; J0330; J0461; J1171; J1630; J1644; J2003; J2060; J2250; J2251; J2270; J2405; J2543; J2704; J2795; J3010; J3370; J3371; J3475; J3480; P9016; P9047; Q9967; S9485

== ENCOUNTER → 2024-09-27 10:26 | Outpatient (BNV) | payer OTHER, SELFPAY | PROVIDERS: Emergency Provider Emergency Medicine; Visit Provider Radiology Diagnostic Radiology | DX: J98.11 Atelectasis (principal); R16.1 Splenomegaly, not elsewhere classified; K59.00 Constipation, unspecified; Z93.0 Tracheostomy status; Q04.8 Other specified congenital malformations of brain | CPT/HCPCS: 70450; 71045; 71260; 72125; 74177 ==

== ENCOUNTER 2024-09-27 12:08 | Outpatient (BNV) | payer OTHER, SELFPAY | END 2024-09-27 13:16 | PROVIDERS: Admitting Provider Internal Medicine Pulmonary Disease; Emergency Provider Emergency Medicine; PCP Internal Medicine; Visit Provider Internal Medicine Cardiovascular Disease | DX: R94.31 Abnormal electrocardiogram [ECG] [EKG] (principal); T50.901A Poisoning by unspecified drugs, medicaments and biological substances, accidental (unintentional), initial encounter | CPT/HCPCS: 93010 ==

== ENCOUNTER → 2024-09-27 12:08 | Outpatient (BNV) | payer OTHER, SELFPAY | PROVIDERS: Admitting Provider Internal Medicine Pulmonary Disease; Emergency Provider Emergency Medicine; PCP Internal Medicine; Visit Provider Surgery | DX: L98.499 Non-pressure chronic ulcer of skin of other sites with unspecified severity (principal); G93.40 Encephalopathy, unspecified | CPT/HCPCS: 11042; 11045; 99222; 99232 ==

== ENCOUNTER → 2024-09-27 12:08 | Outpatient (BNV) | payer OTHER, SELFPAY | PROVIDERS: Admitting Provider Internal Medicine Pulmonary Disease; Emergency Provider Emergency Medicine; Visit Provider Internal Medicine Pulmonary Disease | DX: F19.10 Other psychoactive substance abuse, uncomplicated (principal); T50.901A Poisoning by unspecified drugs, medicaments and biological substances, accidental (unintentional), initial encounter; G93.40 Encephalopathy, unspecified; E11.9 Type 2 diabetes mellitus without complications | CPT/HCPCS: 99291 ==

== ENCOUNTER → 2024-09-27 12:08 | Outpatient (BNV) | payer OTHER, SELFPAY | PROVIDERS: Admitting Provider Internal Medicine Pulmonary Disease; Emergency Provider Emergency Medicine; PCP Internal Medicine; Visit Provider Nurse Practitioner Psychiatric/Mental Health | DX: F11.90 Opioid use, unspecified, uncomplicated (principal) | CPT/HCPCS: 99232 ==

== ENCOUNTER → 2024-09-27 12:08 | Outpatient (BNV) | payer OTHER, SELFPAY | PROVIDERS: Admitting Provider Internal Medicine Pulmonary Disease; Emergency Provider Emergency Medicine; PCP Internal Medicine; Visit Provider Internal Medicine | DX: G93.40 Encephalopathy, unspecified (principal); F39 Unspecified mood [affective] disorder; L08.9 Local infection of the skin and subcutaneous tissue, unspecified | CPT/HCPCS: 99232; 99233; 99239; 99499; G0180 ==

== ENCOUNTER → 2024-09-27 12:08 | Outpatient (BNV) | payer OTHER, SELFPAY | PROVIDERS: Admitting Provider Internal Medicine Pulmonary Disease; Emergency Provider Emergency Medicine; PCP Internal Medicine; Visit Provider Internal Medicine | DX: G93.40 Encephalopathy, unspecified (principal); F11.90 Opioid use, unspecified, uncomplicated; L98.499 Non-pressure chronic ulcer of skin of other sites with unspecified severity; R78.81 Bacteremia | CPT/HCPCS: 99222 ==

== ENCOUNTER 2024-10-19 11:01 | Outpatient (AMB) | payer OTHER, SELFPAY ==
--- NOTE | 2024-10-19 10:59 | MHC.OFFVIS ---
Vital Signs 10/19/24 11:11 Height 5 ft 10 in Weight 193 lb 6 oz BMI 27.7 BP 137/76 Blood Pressure Location Lt brachial Position Sitting Pulse 79 Intake Visit Reasons: Debridement of b/l upper extremity skin ulcers Intake Note: Patient is seen in office for post debridment of bilateral upper extremity skin ulcers. Pt c/o: not healing as expected on the left arm, has nurse coming in twice a weeks and wrapping the area, currently is not covered, pt states is itchy and uncomfortable when covering, right arm is healing area is dry and no discharge ont he right side Direct Chill Caster Required: No Accompanied by: Self / Same As Patient Allergies Pertussis Vaccines [PERTUSSIS VACCINES] Allergy (Mild, Verified 10/19/24 11:12) HIVES HPI Comments Details: 34-year-old male returning for postoperative wound check after debridement of bilateral upper extremities. He has been followed by VNA who was performing dressing changes using Xeroform. He presents today however with no dressings in place. He reports that he continues to inject heroin as recently as today. He reports that it is a bad time for him with the of a close friend. He knows if he continues with the injections he may lose his arm is considering checking in for rehab. He denies significant pain in either arm. [facility] Medical History Bacteremia Arm ulcer MRSA bacteremia Suicidal ideation Depression Cocaine use with cocaine-induced disorder Opiate dependence, continuous Major depressive disorder, recurrent severe without psychotic features Depression Anxiety IVDU (intravenous drug user) Asthma Surgical History History of surgery (10/02/24) Family History Father Heart disease Social History Household Members: Family Household Members Other:: mother Housing: House Housing Other:: lives with parents Are you a primary patient care representative to a significant other at home: No Do you presently have visiting nurse or other home services: No Alcohol intake: unknown Comment: counts correct Patient Tobacco Use Status: Current everyday Tobacco user Tobacco use type: Cigarette Cigarette Packs Per Day: 1 Cigarettes Per Day: 20.0 Years Smoked: 15 e-Cigarette/Vaping Use: Never Used Second Hand Smoke Exposure: No Substance Use Type: Crack/Cocaine, Heroin, Marijuana, Opiates and Tranquilizers Advance Directives Date on File: 01/30/21 service: No Current occupational status: unemployed Sexual orientation: Straight/Heterosexual Review of Systems Const All systems reviewed & are unremarkable except as noted in HPI and below Physical Exam Vital Signs: Last Vital Signs Pulse 79 10/19/24 11:11 BP 137/76 10/19/24 11:11 BMI result Body Mass Index 27.7 Const General: anxious and intoxicated appearing Nutritional Appearance: thin Orientation/consciousness: patient oriented x3 Resp Effort & Inspection: normal respiratory effort Neuro General: patient oriented x3 Extrem Other: Left forearm with evidence of healing but some crusted lesions laterally. There is some swelling in the arm possibly due to recent IV drug use. Wounds were dressed with a nonadherent dressing followed by fluff gauze and Kerlix bilaterally. No debridement was performed today. Assessment & Plan Assessment & Plan (1) Soft tissue infection: Code(s): L08.9 - Local infection of the skin and subcutaneous tissue, unspecified Category: Medical Plan 34-year-old male patient with history of IV drug abuse and probable zylozine injection with resulting skin ulceration bilaterally. He underwent debridement in the OR and does show some signs of improvement. Unfortunately his returned to IV drug use in the left arm. He should continue with daily dressing changes and local wound care. He will follow-up in approximately 1 month. Coding Level of Care Code Est Pt Level 3 (54526) Diagnoses Soft tissue infection L08.9
[2024-10-19 11:11] VITALS: BP 137/76; PULSE 79; BMI 27.7
--- OUTSIDE RECORDS SUMMARY | 2024-10-19 13:31 | XMS_ITS | Clinical Summary ---
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 [...] mmol/L LAB CHEMISTRY METHOD 06/14/2024 9:25 AM [facility] Potassium 4.2 3.5 - 5.5 mmol/L LAB CHEMISTRY METHOD 06/14/2024 9:25 AM [facility] Chloride 112(H) 96 - 110 mmol/L LAB CHEMISTRY METHOD 06/14/2024 9:25 AM [facility] CO2 27 21 - 32 mmol/L LAB CHEMISTRY METHOD 06/14/2024 9:25 AM [facility] Anion Gap 4 3 - 11 LAB CHEMISTRY METHOD 06/14/2024 9:25 AM [facility] Glucose 81 70 - 100 mg/dL LAB CHEMISTRY METHOD 06/14/2024 9:25 AM [facility] BUN 6 5 - 25 mg/dL LAB CHEMISTRY METHOD 06/14/2024 9:25 AM [facility] Comment:Results verified by repeat testing Creatinine 0.68(L) 0.70 - 1.30 mg/dL LAB CHEMISTRY METHOD 06/14/2024 9:25 AM [facility] eGFR 125 >=60 mL/min/1. 73m2 LAB CHEMISTRY METHOD 06/14/2024 9:[address] [facility] Comment:Calculation based on the??Chronic Kidney Disease Epidemiology Collaboration (CKD-EPI) equation refit??without adjustment for race. BUN/Creatinine Ratio 8.8 LAB CHEMISTRY METHOD 06/14/2024 9:25 AM [facility] Calcium 9.7 8.5 - 10.5 mg/dL LAB CHEMISTRY METHOD 06/14/2024 9:25 AM [facility] Blood Venous blood specimen / Unknown Venipuncture / Unknown 06/14/2024 8:23 AM EST 06/14/2024 8:43 AM EST Lupillo Mcbride MD LAB BLOOD ORDERABLES Final Resul t Performing Organization Address [facility]/ZIP Co de Phone Number [facility] [address] [place] [address], [place] [phone] * Hemoglobin A1c (06/12/2024 6:46 PM EST) Pathologist [facility] Hemoglobin A1C 6.3 <6.5 % LAB CHEMISTRY METHOD 06/13/2024 12:[address] [facility] Mean Bld Glu Estim. 134 mg/dL LAB CHEMISTRY METHOD 06/13/2024 12:53 PM [facility] Blood Venous blood specimen / Unknown Venipuncture / Unknown 06/12/2024 6:46 PM EST 06/12/2024 6:51 PM EST Aaron Cooper MD LAB BLOOD ORDERABLES Final Result [facility] [address] [place] [address], [place] [phone] * (ABNORMAL) Lipid panel (05/22/2020) LDL/HDL Ratio [...] MRSA 06/12/2024 06/12/2024 Insurance MEDICAID - [place] [facility] Advance Directives * Full Code - [...] currently active code status orders. Care Teams Label Printing Machinist Relationship Specialty Start Date End Date Orlando Mahmood MD [address] [place] [id number] PCP - General Internal Medicine 11/12/24
== END 2024-10-19 11:14 | disposition home or self-care (01) ==
LOC: HO.HGS 11:02
PROVIDERS: PCP Internal Medicine; Visit Provider Surgery
DX: L08.9 Local infection of the skin and subcutaneous tissue, unspecified (principal)
CPT/HCPCS: 99213

== ENCOUNTER → 2024-10-19 11:01 | Outpatient (BNVA) | payer OTHER, SELFPAY | PROVIDERS: PCP Internal Medicine; Visit Provider Surgery | DX: L08.9 Local infection of the skin and subcutaneous tissue, unspecified (principal) | CPT/HCPCS: 99212 ==

== ENCOUNTER 2025-01-31 23:35 | Inpatient (IN) | payer OTHER, SELFPAY ==
--- NOTE | ~2025-01-31 | XR_ITS ---
CLINICAL HISTORY: seizure, concern for aspiraiton. 1 view chest x-ray. Comparison: CR/SR - XR CHEST 1V - 09/27/24 13:04 EST Findings: Lung volumes are small. The lungs appear clear. There is no consolidation, effusion, or pneumothorax. Cardiomediastinal silhouette is within normal limits. IMPRESSION: No acute cardiopulmonary abnormality. This document has been electronically signed by: Magan Chicas MD on 02/01/2025 02:55:15
--- NOTE | ~2025-01-31 | CT_ITS ---
CLINICAL HISTORY: non focal encephalopathy , seizure CT head without contrast Comparison: CT/CT/SR - CT HEAD/BRAIN WO IV CON - 09/27/24 11:39 EST Findings: There is no acute intracranial hemorrhage. Ventricles are of normal size and shape. No mass effect or midline shift is present. The govea-white matter differentiation appears normal. The visualized portions of the orbits, paranasal sinuses, and mastoids are unremarkable. No fractures are identified. IMPRESSION: No acute intracranial abnormality. This document has been electronically signed by: Magna Chicas MD on 02/01/2025 03:35:17
--- NOTE | ~2025-01-31 | CT_ITS ---
CLINICAL HISTORY: severe deep necrotic infection CT left upper extremity with contrast Comparison: CT - CT FOREARM LT W IV CON - 10/13/23 03:09 EDT Findings: Study is limited by artifact from imaging the patient's forearm alongside his body. There is subcutaneous soft tissue induration and multiple superficial ulcerations in the soft tissues of the forearm. There is no subcutaneous gas. There is no evidence of an abscess. There is no evidence of osteomyelitis. IMPRESSION: No subcutaneous gas or evidence of an abscess. This document has been electronically signed by: Magan Chicas MD on 02/01/2025 03:18:17
[2025-01-31 23:42] VITALS: BP 140/80; PULSE 120; O2SAT 100
--- NOTE | 2025-01-31 23:45 | ED_ITS ---
HPI - Seizure General Chief Complaint: Overdose Stated Complaint: COCAINE OVERDOSE Time Seen by Provider: 01/31/25 23:43 History of Present Illness ED Provider: Teofilo Morataya MD HPI Narrative: 34-year-old male with history of IV cocaine and opioid use disorder, chronic wounds,? Epileptic disorder, mostly history provided by EMS BLS crew picked him up at the house and was met by ALS crew EN route. Patient per family had convulsive episode with tongue biting just prior to calling EMS. Patient endorses using 3 bags and IV cocaine all injecting. Prior to this episode he was in his normal state of health he says he had a normal day ate food was feeling generally well. EMS describes him as postictal slowly improving mentation throughout transport. Sinus rhythm vitals stable. Patient is poor historian likely slightly postictal and/or sedated due to poly substance intake prior to arrival. He denies fever headache shortness of breath abdominal pain says the wounds on his arms are rather chronic without much significant abrupt changes recently. Endorses taking clonidine and Prozac daily not missing medication doses. Prior MRSA+ Blood Cx 09/2024 Blood Cx: PSYCHROBACTER PULMONIS/FAECALIS/URATIVORANS Related Data Home Medications ?Medication ?Instructions ?Recorded ?Confirmed methadone 10 mg/mL oral 170 mg PO DAILY 10/13/2312/23 concentrate (Methadone Intensol) clonazepam 1 mg tablet 1 mg PO TID 02/28/24 5 clonidine HCl 0.1 mg tablet 0.1 mg PO TID 02/28/2411/23 gabapentin 300 mg capsule 300 mg PO BEDTIME 02/28/24 0 02/01/25 gabapentin 600 mg tablet 600 mg PO TID 02/28/2402/01 mirtazapine 7.5 mg tablet 7.5 mg PO BEDTIME 02/28/24 0 02/01/25 quetiapine 100 mg tablet 100 - 200 mg PO BEDTIME PRN 02/28/24 02/01/25 Insomnia escitalopram oxalate 10 mg tablet 10 mg PO QAM 5 02/01/25 Allergies Allergy/AdvReac Type Severity Reaction Status Date / Time Pertussis Vaccines Allergy Mild HIVES Verified 01/31/25 23:49 (PERTUSSIS VACCINES) [facility] Past Medical History Medical History Bacteremia Arm ulcer MRSA bacteremia Suicidal ideation Depression Cocaine use with cocaine-induced disorder Opiate dependence, continuous Major depressive disorder, recurrent severe without psychotic features Depression Anxiety IVDU (intravenous drug user) Asthma Surgical History History of surgery (10/02/24) Family History Family History Father Heart disease Social History Social History Household Members: Unknown / Unable to assess Household Members Other:: mother Housing: Unknown / Unable to assess Housing Other:: lives with parents Are you a primary anesthesiologist and critical care to a significant other at home: No Do you presently have visiting nurse or other home services: No Alcohol intake: unknown Comment: seizure precations Patient Tobacco Use Status: Tobacco use Unknown Tobacco use type: Cigarette Cigarette Packs Per Day: 1 Cigarettes Per Day: 20.0 Years Smoked: 15 Smoked in Last 30 Days: No e-Cigarette/Vaping Use: Never Used Second Hand Smoke Exposure: No Use of substances other than those prescribed or required for medical reasons: Yes Substance Use Type: Crack/Cocaine and Tranquilizers Currently Displaying Signs/Symptoms of Drug Intoxication Withdrawal: No Advance Directives: No Advance Directives Date on File: 01/30/21 Do you have a plan to hurt others: No Plan service: No Current occupational status: unemployed Sexual orientation: Straight/Heterosexual Physical Exam 2 Vital Signs: Vital Signs: Last Vital Signs Temp 97.7 F 02/04/25 12:00 Pulse 64 02/04/25 12:00 Resp 18 02/04/25 12:00 BP 100/53 L 02/04/25 12:00 Pulse Ox 98 02/04/25 12:00 O2 Del Method Room Air 02/04/25 12:00 BMI result Body Mass Index 30.2 Const: Other: EXAM: Gen: Sleepy, arousable. Slightly disheveled poorly kempt. Deep but chronic wounds on the extremities see photos below. No obvious head trauma Head: Atraumatic Eyes: Anicteric, Normal conjunctiva. ENT: Moist mucosa, no pallor. ? Neck: Supple. Skin: ?No observable rash or bruising on exposed or examined skin except for arms: Right forearm: This as compared to a photo documented in 01/01/2024 Left dorsal forearm: As compared to 12/05/2023 photo this has worsened significantly Respiratory: Breathing comfortably, No distress.Clear to auscultation bilaterally, symmetric chest expansion, No wheeze, rales, ronchi. Cardiovascular: Regular rate and rhythm. No murmurs or rub. Well perfused periphery, warm extremities. No edema. ? Abdominal: No FOCAL TENDERNESS. Soft, no objective distension. No palpable masses or obvious organomegaly. ?No guarding, no rebound tenderness or other peritoneal findings. : No flank tenderness. Neuro: Alert. Gross movement of all extremities intact. ? Psych: Calm. Cooperative. MSK: No grossly visible deformity. Poorly kempt feet Vital signs: See flowsheet Medications Administered Generic Name Dose Route Start Last Admin Trade Name Freq PRN Reason Stop Dose Admin Baclofen 10 mg 02/01/25 09:00 02/04/25 08:16 Baclofen 10 Mg Tablet PO 10 mg BID SUKHDEEP Administration Ceftriaxone Sodium 1 gm 02/03/25 11:00 02/04/25 12:08 Ceftriaxone Sodium 1 Gm Vial IVPUSH 1 gm Q24H SUKHDEEP Administration Clonazepam 1 mg 02/01/25 13:01 02/04/25 12:52 Clonazepam 1 Mg Tablet PO 1 mg TID PRN Administration anxiety/restlessness Clonidine HCl 0.1 mg 02/01/25 09:00 02/04/25 14:30 Clonidine Hcl 0.1 Mg Tablet PO 0.1 mg TID SUKHDEEP Administration Protocol Escitalopram Oxalate 10 mg 02/01/25 13:00 02/04/25 08:17 Escitalopram Oxalate 10 Mg Tablet PO 10 mg DAILY SUKHDEEP Administration Gabapentin 600 mg 02/01/25 09:00 02/04/25 14:30 Gabapentin 600 Mg Tablet PO 600 mg TID SUKHDEEP Administration Gabapentin 300 mg 02/01/25 21:00 02/03/25 21:07 Gabapentin 300 Mg Capsule PO 300 mg BEDTIME SUKHDEEP Administration Doxycycline Hyclate 100 mg/ 250 mls @ 166.67 mls/hr 02/03/25 10:00 02/04/25 12:05 Sodium Chloride IV Infused Q12H SUKHDEEP Infusion Methadone HCl 170 mg 02/02/25 13:55 02/04/25 08:13 Methadone Hcl 20 Mg/2 Ml Oral.Conc PO 170 mg DAILY SUKHDEEP Administration Mirtazapine 7.5 mg 02/01/25 21:00 02/03/25 21:07 Mirtazapine 7.5 Mg Tablet PO 7.5 mg BEDTIME SUKHDEEP Administration Nicotine 21 mg 02/01/25 09:00 02/04/25 08:17 Nicotine 21 Mg Patch.Td24 TRANSDERMA 21 mg DAILY SUKHDEEP Administration Ondansetron HCl 4 mg 02/01/25 04:02 02/02/25 13:41 Ondansetron Hcl 4 Mg/2 Ml Vial IVPUSH 4 mg Q8H PRN Administration Nausea and Vomiting Oxycodone HCl 5 mg 02/01/25 04:02 02/04/25 15:03 Oxycodone Hcl Immed Release 5 Mg Tablet PO 5 mg Q6H PRN Administration Pain, Severe (Pain Scale 7-10) Sodium Chloride 3 ml 02/01/25 08:00 02/04/25 14:31 0.9 % Sodium Chloride Flush 3 Ml Syringe IVFLUSH 3 ml QSHIFT SUKHDEEP Administration Discontinued Medications Generic Name Dose Route Start Last Admin Trade Name Freq PRN Reason Stop Dose Admin Clonazepam 1 mg 02/01/25 09:00 02/01/25 08:01 Clonazepam 1 Mg Tablet PO 1 mg TID SUKHDEEP Administration Piperacillin Sod/Tazobactam 50 mls @ 100 mls/hr 01/31/25 23:55 02/01/25 00:47 Sod 3.375 gm/ Sodium Chloride IV 02/01/25 00:24 Infused ONCE ONE Infusion Vancomycin HCl 2,000 mg in 500 mls @ 250 mls/hr 01/31/25 23:55 02/01/25 02:34 Vancomycin/Ns IV 02/01/25 01:54 Infused ONCE ONE Infusion Lactated Ringer's 1,000 mls @ 999 mls/hr 01/31/25 23:45 02/01/25 01:10 Lr IV 02/01/25 00:45 Infused .Q1H1M SUKHDEEP Infusion Potassium Chloride 10 meq in 100 mls @ 100 mls/hr 02/01/25 01:23 02/01/25 02:36 Potassium Chloride/H20 IV 02/01/25 02:22 Infused ONCE ONE Infusion Lactated Ringer's 1,000 mls @ 999 mls/hr 02/01/25 01:30 02/01/25 02:35 Lr IV 02/01/25 02:30 Infused .Q1H1M SUKHDEEP Infusion Lactated Ringer's 1,000 mls @ 125 mls/hr 02/01/25 04:00 02/04/25 12:03 Lr IVCONT Infused .Q8H SUKHDEEP Infusion Piperacillin Sod/Tazobactam 50 mls @ 100 mls/hr 02/01/25 06:00 02/03/25 06:45 Sod 3.375 gm/ Sodium Chloride IV Infused Q6H SUKHDEEP Infusion Iohexol 85 ml 02/01/25 01:50 02/01/25 01:51 Iohexol 350 Mg/Ml 100 Ml Infus..Btl IV 02/01/25 01:51 85 ml ONCE ONE Administration Medical Decision Making Medical Decision Making MDM Narrative: Medical Decision Makin-year-old male with polysubstance use disorder cocaine and opioids today with rescue naloxone by family members. They witnessed convulsive seizure unclear whether the patient has underlying seizure disorder I do not see this documented anywhere in the past. Could be provoked by cocaine. He does have a tongue bite suggesting that this was real tonic-clonic seizure. Patient looks either sedated, postictal and chronically ill on arrival. No obvious trauma family says he was not a chair throughout this convulsive episode. Severe deep although likely chronic wounds on the right and left arm. Right arm looks similar to a photo taken in the chart from about a year ago. Left arm much worse than a photo taken a year ago. Some mild surrounding erythema though crusting and various channels with discharge. Both of these were cultured. Blood cultures drawn. Broad-spectrum antibiotics initiated. Patient mildly tachycardic on arrival but not febrile. No hypotension Testing Interpreted Independently: ECG: Sinus tachycardia rate of 111. QTC 465. No acute ischemic changes. Radiology or Lab testing Results Reviewed: Not Applicable Consults: Not Applicable Independent Historians/External Chart Reviews: Reviewed previous blood cultures, previous infectious disease notes and ER visits. Social Determinants of Health Impacting MDM/Planning: Polysubstance use disorder Lab Data 02/03/25 06:52 02/03/25 06:52 Labs: Lab Results 01/31/25 02/01/25 02/01/25 Range/Units 23:45 00:07 02:20 WBC 8.5 (4.8-10.8) X10*3/uL RBC 4.60 (4.60-5.80) X10*6/uL Hgb 8.0 L (14.0-18.0) g/dl Hct 27.7 L (42.0-52.0) % MCV 60.2 L (80.0-98.0) fL MCH 17.4 L (27.0-33.0) pg MCHC 28.9 L (31.0-36.0) g/dl RDW 17.2 H (11.0-16.0) % Plt Count 437 H (160-400) X10*3/uL MPV 9.4 (9.4-12.4) fL Immature Gran % (Auto) 0.4 (0.0-0.4) % Neut % (Auto) 76.6 H (45-73) % Lymph % (Auto) 12.0 L (20-40) % Hardeman % (Auto) 10.1 (2-11) % Eos % (Auto) 0.7 (0-4) % Baso % (Auto) 0.2 (0-2) % Lymph # (Auto) 1.0 L (1.2-4.9) X10*3/uL Hardeman # (Auto) 0.9 (0.1-1.2) X10*3/uL Eos # (Auto) 0.1 (0.0-0.4) X10*3/uL Baso # (Auto) 0.0 (0.0-0.2) X10*3/uL Abs Immat Gran (auto) 0.03 (0.00-0.03) X10*3/uL Absolute Neuts (auto) 6.5 (2.0-8.3) x10*3/uL Absolute Nucleated RBC 0.000 (0.0-0.012) X10*3/uL Nucleated RBC % (auto) 0.0 (0.0-0.2) /100WBC Smear Path Review Cancelled ESR 28 H (0-15) MM/HR Sodium 140 (135-145) mmol/L Potassium 3.3 D (3.3-5.1) mmol/L Chloride 107 (96-108) mmol/L Carbon Dioxide 23 (22-29) mmol/L Anion Gap 13 (12-20) BUN 18 H (9-16) mg/dL Creatinine 0.67 (0.5-1.4) mg/dL Estim Creat Clear Calc 180.0 Estimated GFR > 60 POC Glucose 126 H (60-115) mg/dL Random Glucose 78 (60-115) mg/dL Estimat Average Glucose 131 mg/dL Hemoglobin A1c % 6.2 H (<6.0) % Lactic Acid 2.6 H* (0.5-2.0) mmol/L Lactic Acid F/U @ 2Hr 0.7 (0.5-2.0) mmol/L Calcium 8.8 (8.4-10.2) mg/dL Iron 19 L (45-160) mcg/dL TIBC 303 (228-428) mcg/dL % Saturation 6 L (15-50) % Unsat Iron Binding 284 ug/dL Total Bilirubin 0.2 (0.0-1.0) mg/dL AST 31 (5-37) U/L ALT 16 (0-40) U/L Alkaline Phosphatase 84 (39-117) U/L Troponin I High Sens < 2.7 (<3.5-35.0) ng/L C-Reactive Protein 2.56 H (< or = 0.50) mg/dL Total Protein 7.3 (6.5-8.0) g/dL Albumin 3.8 (3.5-5.0) g/dL Prolactin 6.6 (2.0-18.0) ng/mL Independent Interpretation I performed an independent interpretation of an: CT Scan Radiology Impression Discussion of test interpretation with radiology: I have reviewed the radiologist's reading. Radiologist Impression: There is no acute intracranial hemorrhage. Ventricles are of normal size and shape. No mass effect or midline shift is present. The govea-white matter differentiation appears normal. The visualized portions of the orbits, paranasal sinuses, and mastoids are unremarkable. No fractures are identified. IMPRESSION: No acute intracranial abnormality. Study is limited by artifact from imaging the patient's forearm alongside his body. There is subcutaneous soft tissue induration and multiple superficial ulcerations in the soft tissues of the forearm. There is no subcutaneous gas. There is no evidence of an abscess. There is no evidence of osteomyelitis. IMPRESSION: No subcutaneous gas or evidence of an abscess. Procedures Procedure Narrative Procedure Narrative: Ultrasound Guided Peripheral Intravenous Catheter Placement Indication: Intravenous Access Location: Right basilic Provider: Lester I was approached by nursing staff and informed that multiple unsuccessful attempts had been made to establish IV access in the patient. The patients arm was surveyed with the ultrasound for verification of vessel collapsibility, patency, depth and caliber, as well as identification of nearby structures. The target area was prepped with chlorhexidine. A tourniquet was placed proximally on the extremity. Under real-time ultrasound guidance, an 20 G 10cm BARD Powerglide Midline Non Tunnelled Catheter] was advanced into the target vein. Dark blood was visualized in the flash chamber. The catheter was easily advanced into the vein. The catheter was evacuated of air and flushed with sterile saline. The catheter was secured in place with a tegaderm. The patient tolerated the procedure well and there were no complications. Estimated Blood Loss: 1mL Total Time for Procedure: 5min Images Stored CPT: 51162; 71088 Discharge Plan Discharge Clinical Impression: Opioid use disorder, Polysubstance abuse, Seizure Ulcer of upper extremity Qualifiers: Non-pressure ulcer stage: unspecified non-pressure ulcer stage Qualified Code(s): L98.499 - Non-pressure chronic ulcer of skin of other sites with unspecified severity Overdose Qualifiers: Encounter type: initial encounter Injury intent: accidental or unintentional Q ualified Code(s): T50.901A - Poisoning by unspecified drugs, medicaments and biological substances, accidental (unintentional), initial encounter Patient Disposition: Admitted As Inpatient Interventions: Admission Worksheet (ED) Last Done: 02/01/25 08:22 Discharge Date/Time: 02/01/25 09:03
[2025-01-31 23:47] VITALS: BP 135/78; PULSE 122; RESP 17; TEMP 36.9; O2SAT 99; BMI 30.2
[2025-02-01] VITALS (15 sets, daily range): BP systolic 97–138; BP diastolic 57–86; PULSE 73–131; RESP 14–156; TEMP 36.3–37.2; O2SAT 93–100
--- NOTE | 2025-02-01 | ECG_ITS ---
Test Reason : OVRDOSED Blood Pressure : */* mmHG Vent. Rate : 111 BPM Atrial Rate : 111 BPM P-R Int : 178 ms QRS Dur : 84 ms QT Int : 342 ms P-R-T Axes : 82 53 49 degrees QTcB Int : 465 ms Sinus tachycardia Otherwise normal ECG When compared with ECG of 27-Sep-2024 13:16, No significant change was found Referred By: Helena Black Electronically Signed By: KATELYNN DE LOS SANTOS MD
--- NOTE | 2025-02-01 00:10 | ECG_ITS ---
Test Reason : TACHY Blood Pressure : */* mmHG Vent. Rate : 128 BPM Atrial Rate : * BPM P-R Int : * ms QRS Dur : 78 ms QT Int : 402 ms P-R-T Axes : * 26 76 degrees QTcB Int : 586 ms Sinus tachycardia Cannot rule out Inferior infarct , age undetermined Abnormal ECG When compared with ECG of 01-Feb-2025 00:11, Vent. rate has increased Minimal criteria for Inferior infarct are now Present Referred By: Helena Black Electronically Signed By: KATELYNN DE LOS SANTOS MD
[2025-02-01] MEDS: Lactated Ringers 1,000 ML 999 ML IV ×2 (00:13→01:36)
[2025-02-01 00:14] LABS: MANUAL DIFF FLAG NO
[2025-02-01 00:27] LABS: Glucose, Whole Blood 126 mg/dL (60-115)
--- NOTE | 2025-02-01 00:32 | PC.NURSE ---
abx started prior to obtaining 2nd blood culture d/t difficult stick. 6x attempt. midline access by MD and 2nd set obtained.
[2025-02-01 00:34] LABS: Alanine Aminotransferase 16 U/L (0-40); Albumin Level 3.8 g/dL (3.5-5.0); Alkaline Phosphatase 84 U/L (39-117); Anion Gap 13 (12-20); Aspartate Amino Transferase 31 U/L (5-37); Blood Urea Nitrogen 18 mg/dL (9-16); Calcium 8.8 mg/dL (8.4-10.2); Carbon Dioxide 23 mmol/L (22-29); Chloride 107 mmol/L (96-108); Creatinine Clr Calc Pharmacy 180.0; Estimated Glomerular Filt Rate > 60; Potassium 3.3 mmol/L (3.3-5.1); Sodium 140 mmol/L (135-145); Total Protein 7.3 g/dL (6.5-8.0)
[2025-02-01] MEDS: vancomycin/NS 2,000 MG/500 ML PLAST..BAG 250 MG IV (00:34)
[2025-02-01 00:39] LABS: Troponin-I High Sensitivity < 2.7 ng/L (<3.5-35.0)
[2025-02-01 01:14] LABS: Hematocrit 27.7 % (42.0-52.0); Hemoglobin 8.0 g/dl (14.0-18.0); Imm Gran Abs Auto 0.03 X10*3/uL (0.00-0.03); Imm Gran Pct Auto 0.4 % (0.0-0.4); Lymphocytes Absolute Auto 1.0 X10*3/uL (1.2-4.9); Mean Corpuscular HGB Conc 28.9 g/dl (31.0-36.0); Mean Corpuscular Hemoglobin 17.4 pg (27.0-33.0); Mean Corpuscular Volume 60.2 fL (80.0-98.0); NRBC Abs Auto 0.000 X10*3/uL (0.0-0.012); NRBC Pct Auto 0.0 /100WBC (0.0-0.2); Platelet Count 437 X10*3/uL (160-400); Red Blood Count 4.60 X10*6/uL (4.60-5.80); White Blood Count 8.5 X10*3/uL (4.8-10.8)
[2025-02-01] MEDS: Potassium Chloride/H20 10 MEQ/100 ML PIGGYBACK 100 MEQ IV (01:36)
[2025-02-01] MEDS: iohexoL 350 MG/ML 100 ML INFUS..BTL 85 ML IV (01:51)
[2025-02-01 02:12] LABS: Reflex Lactate? Lactic Acid Added
[2025-02-01 02:40] LABS: ~Lactic Acid-LAB USE ONLY 0.7 mmol/L (0.5-2.0)
--- NOTE | 2025-02-01 04:07 | PM.IMHP ---
History of Present Illness Date of Service: 02/01/25 Attending physician on admission: Dominic Valderrama Chief Complaint: seizure Patient is a 34-year-old male with a past medical history significant for polysubstance use including IV cocaine and heroin, chronic wounds in the upper extremities previously followed by wound care, ?epileptic disorder, history of MRSA bacteremia and mild intermittent asthma, who arrived to the ED via EMS after being picked up at home for a convulsive witnessed seizure. Patient does have signs of tongue biting and has been postictal since arrival with normal sinus rhythm. Prior to EMS being called she reported that the patient used 3 bags of heroin +IV cocaine not that much per pt. The upper extremity wounds appear worsened from previous photos in the patient's chart, specifically the left upper forearm. The patient is still post ictal at this time and the history was difficult to obtain. Pt was reportedly given naloxone prior to EMS arriving. Review of Systems Review of Systems: Yes Unobtainable due to mental condition PMFSH Medical History Bacteremia Arm ulcer MRSA bacteremia Suicidal ideation Depression Cocaine use with cocaine-induced disorder Opiate dependence, continuous Major depressive disorder, recurrent severe without psychotic features Depression Anxiety IVDU (intravenous drug user) Asthma Functional capacity: independent ambulation Family History Father Heart disease Surgical History History of surgery (10/02/24) Social History Household Members: Family Household Members Other:: mother Housing: House Housing Other:: lives with parents Are you a primary child care provider to a significant other at home: No Do you presently have visiting nurse or other home services: No Alcohol intake: unknown Comment: counts correct Patient Tobacco Use Status: Current everyday Tobacco user Tobacco use type: Cigarette Cigarette Packs Per Day: 1 Cigarettes Per Day: 20.0 Years Smoked: 15 Smoked in Last 30 Days: No e-Cigarette/Vaping Use: Never Used Second Hand Smoke Exposure: No Use of substances other than those prescribed or required for medical reasons: Yes Substance Use Type: Crack/Cocaine and Tranquilizers Advance Directives: No Advance Directives Date on File: 01/30/21 Do you have a plan to hurt others: No Plan service: No Current occupational status: unemployed Sexual orientation: Straight/Heterosexual Meds Allergies Allergy/AdvReac Type Severity Reaction Status Date / Time Pertussis Vaccines Allergy Mild HIVES Verified 01/31/25 23:49 (PERTUSSIS VACCINES) Active Medications: Current Medications Acetaminophen (Acetaminophen 325 Mg Tablet) 975 mg PO Q6H PRN PRN Reason: Pain, Mild 1-3,fever,headache Calcium Carbonate (Calcium Carbonate 750 Mg Tab.Chew) 750 mg PO Q4H PRN PRN Reason: Heartburn Diazepam (Diazepam 10 Mg/2 Ml Cartridge) 5 mg IVPUSH Q3H PRN PRN Reason: Seizures Lactated Ringer's (Lr) 1,000 mls @ 80 mls/hr IVCONT .[id number] SUKHDEEP Piperacillin Sod/Tazobactam (Sod 3.375 gm/ Sodium Chloride) 50 mls @ 100 mls/hr IV Q6H SUKHDEEP Magnesium Hydroxide (Milk Of Magnesia 30 Ml Oral.Susp) 30 ml PO DAILY PRN PRN Reason: Constipation Melatonin (Melatonin 3 Mg Tablet) 6 mg PO BEDTIME PRN PRN Reason: Insomnia Ondansetron HCl (Ondansetron Hcl 4 Mg/2 Ml Vial) 4 mg IVPUSH Q8H PRN PRN Reason: Nausea and Vomiting Oxycodone HCl (Oxycodone Hcl Immed Release 5 Mg Tablet) 5 mg PO Q6H PRN PRN Reason: Pain, Severe (Pain Scale 7-10) Pharmacy Consult (Consult Rx Vancomycin Dosing) 1 each MISCELLANE DAILY PRN PRN Reason: Consult order Sodium Chloride (0.9 % Sodium Chloride Flush 3 Ml Syringe) 3 ml IVFLUSH QSHIFT SUKHDEEP Tramadol HCl (Tramadol Hcl 50 Mg Tablet) 50 mg PO Q6H PRN PRN Reason: Pain, Moderate(Pain Scale 4-6) Home Medications ?Medication ?Instructions ?Recorded ?Confirmed ?Last Taken ?Type methadone 10 mg/mL oral 170 mg PO DAILY 10/13/23 02/28/24 02/27/24 09:19 History concentrate (Methadone Intensol) clonazepam 1 mg tablet 1 mg PO TID 02/28/24 09/27/24 02/27/24 20:00 History clonidine HCl 0.1 mg tablet 0.1 mg PO TID 02/28/24 09/27/24 02/27/24 20:00 History gabapentin 300 mg capsule 300 mg PO BEDTIME 02/28/24 09/27/24 02/26/24 21:00 History gabapentin 600 mg tablet 600 mg PO TID 02/28/24 09/27/24 02/27/24 17:00 History mirtazapine 7.5 mg tablet 7.5 mg PO BEDTIME 02/28/24 09/27/24 02/26/24 21:00 History quetiapine 100 mg tablet 100 - 200 mg PO BEDTIME PRN 02/28/24 09/27/24 Unknown History Insomnia Physical Exam Vital Signs and Narrative: Vital Signs: Last Vital Signs Temp 98.6 F 02/01/25 02:21 Pulse 104 H 02/01/25 02:21 Resp 156 H 02/01/25 02:21 BP 114/62 02/01/25 03:13 Pulse Ox 96 02/01/25 02:21 O2 Del Method Room Air 02/01/25 02:21 BMI result Body Mass Index 30.2 General: AOx3, no acute distress, drowsy but responsive to questions. poor hygiene. Resp: CTA bilaterally CVS: RRR, +murmur GI: +BS, NT, no distention Skin: Warm, dry Neuro: Cranial nerves II-XII grossly intact bilaterally. Motor grossly intact bilaterally Extremities: No LE edema. wounds upper extremities wrapped. see ED note for photos. Psych: Appropriate affect Results Labs 02/01/25 00:07 02/01/25 00:07 Labs: Laboratory Results - last 24 hr 01/31/25 02/01/25 02/01/25 23:45 00:07 02:20 MCV 60.2 L MCH 17.4 L MCHC 28.9 L RDW 17.2 H Plt Count 437 H MPV 9.4 Immature Gran % (Auto) 0.4 Neut % (Auto) 76.6 H Lymph % (Auto) 12.0 L [place] % (Auto) 10.1 Eos % (Auto) 0.7 Baso % (Auto) 0.2 Lymph # (Auto) 1.0 L [place] # (Auto) 0.9 Eos # (Auto) 0.1 Baso # (Auto) 0.0 Abs Immat Gran (auto) 0.03 Absolute Neuts (auto) 6.5 Absolute Nucleated RBC 0.000 Nucleated RBC % (auto) 0.0 ESR 28 H Anion Gap 13 Estim Creat Clear Calc 180.0 Estimated GFR > 60 POC Glucose 126 H Random Glucose 78 Lactic Acid 2.6 H* Lactic Acid F/U @ 2Hr 0.7 Calcium 8.8 Total Bilirubin 0.2 AST 31 ALT 16 Alkaline Phosphatase 84 Troponin I High Sens < 2.7 C-Reactive Protein 2.56 H Total Protein 7.3 Albumin 3.8 Assessment and Plan (1) Seizure: Status: Acute (2) Polysubstance abuse: Status: Acute (3) Cocaine use disorder: Status: Acute (4) Overdose: Qualifiers: Encounter type: initial encounter Injury intent: accidental or unintentional Qualified Code(s): T50.901A - Poisoning by unspecified drugs, medicaments and biological substances, accidental (unintentional), initial encounter Status: Acute (5) Arm ulcer: Qualifiers: Non-pressure ulcer stage: unspecified non-pressure ulcer stage Qualified Code(s): L98.499 - Non-pressure chronic ulcer of skin of other sites with unspecified severity Status: Acute (6) Bacterial skin infection of upper extremity: Status: Acute (7) Microcytic anemia: Status: Acute (8) Class 1 obesity: Status: Acute (9) Tobacco use disorder: Status: Acute Plan Patient is a 34-year-old male with a past medical history significant for polysubstance use including IV cocaine and heroin, chronic wounds in the upper extremities previously followed by wound care, ?epileptic disorder, history of MRSA bacteremia and mild intermittent asthma, who arrived to the ED via EMS after being picked up at home for a convulsive witnessed seizure. seizure, clonic, witnessed - pt denies hx of seizure disorder but has had seizures from drug use - reported drug use prior to seizure - post ictal state currently - EEG - CT head negative - MRI brain with and without contrast - lactic acid elevated, indicative of seizure. repeat lactic acid normal - prolactin pending - continue gabapentin, clonopin, baclofen (unknown reason why and if still taking) - seizure precautions - NPO - neurology consult - LR 80/hr - diazepam 5mg IV PRN seizure polysubstance abuse/overdose, likely cause of seizure - pt reports IVDU, heroin and cocaine [employer]. also on gabapentin, clonopin, ?baclofen and methadone - utox + for methadone, fentanyl , cocaine - received naloxone prior to EMS arrival - will need methadone dose confirmed in AM - addiction med consult chronic upper extremity wounds with superimposed infection in IVDU - no leukocytosis, tachycardic from substance use, lactic acid elevated due to seizure, blood cultures x2 pending, no sepsis - CT L forearm neagtive for gases or abscess - ESR 28, CRP 2.56 - vanco and zosyn - vascular, ID and wound consults ?debridement - echo due to murmur - monitor CBC elevated blood glucose - A1c 6.2% - monitor POC microcytic anemia - hgb 8.0, hct 27.7, mcv 60.2 - iron panel, B12 and folate - pt denies any bleeding sources - OBS x1 ordered - monitor CBC - no need for blood transfusion at this time mild intermittent asthma, no acute exacerbation class 1 obesity - BMI 30.2 - weight loss encouraged tobacco use disorder - nicotine patch - smoking cessation encouraged med rec pending full code VTE prophy: pneumoboots pending anemia eval Pt with witnessed seizure likely from OD and substance use, complicated by infected wounds LUE, requiring admission for at least 2 midnights stay for further evaluation, monitoring, IV abx and specialist consultations. Quality Stroke Does the patient have a stroke diagnosis?: No VTE Prior VTE?: No VTE Risk Level:: Medical - moderate - high VTE Device Contraindication: N/A - Device Ordered VTE Drug Contraindication: Treatment Not Indicated
[2025-02-01 04:32] LABS: Appearance Urine Clear; Glucose Urine UA Negative (Negative); PH 5.5 (5.0-9.0); Specific Gravity - Urine >= 1.030 (1.005-1.025)
[2025-02-01] MEDS: Lactated Ringers 1,000 ML 80 ML IVCONT (04:33)
[2025-02-01 04:37] LABS: Iron 19 mcg/dL (45-160); Percent Iron Saturation 6 % (15-50); Total Iron Binding Capacity 303 mcg/dL (228-428); Unsaturated Iron Binding 284 ug/dL
[2025-02-01 04:38] LABS: Hemoglobin A1C 92.4450 umol/L; Total Hemoglobin (HGBA1C) 2111.1833 umol/L
[2025-02-01 04:39] LABS: Cannabinoid Screen Urine Not Detected (Not Detect)
[2025-02-01 06:10] LABS: Anion Gap 11 (12-20); Blood Urea Nitrogen 12 mg/dL (9-16); Calcium 8.3 mg/dL (8.4-10.2); Carbon Dioxide 25 mmol/L (22-29); Chloride 108 mmol/L (96-108); Creatinine Clr Calc Pharmacy 208.0; Estimated Glomerular Filt Rate > 60; Magnesium 1.9 mg/dL (1.6-2.6); Potassium 3.6 mmol/L (3.3-5.1); Sodium 140 mmol/L (135-145)
[2025-02-01 06:42] LABS: Folate 9.9 ng/mL (> or = 4.0); Vitamin B12 452 pg/mL (200-900)
[2025-02-01] MEDS: 0.9 % Sodium Chloride Flush 3 ML SYRINGE IVFLUSH (06:49)
[2025-02-01 06:58] LABS: Hematocrit 25.0 % (42.0-52.0); Hemoglobin 7.2 g/dl (14.0-18.0); Mean Corpuscular HGB Conc 28.8 g/dl (31.0-36.0); Mean Corpuscular Hemoglobin 17.2 pg (27.0-33.0); NRBC Abs Auto 0.000 X10*3/uL (0.0-0.012); NRBC Pct Auto 0.0 /100WBC (0.0-0.2); Platelet Count 380 X10*3/uL (160-400); Red Blood Count 4.19 X10*6/uL (4.60-5.80); White Blood Count 7.6 X10*3/uL (4.8-10.8)
--- NOTE | 2025-02-01 07:00 | CA_ITS ---
Transthoracic Echocardiogram Patient (Last, First, Middle): Andrey Monk G Gender: Male Date of : 1990 Age: 34 Procedure Date: 02/01/2025 Procedure Type: Transthoracic Echocardiogram [place] [facility] [place] Height: 177.8 cm Weight: 95.26 kg BSA: 2.13 m2 Heart Rate: 130 bpm BP: 115 / 76 mmHg Playground Attendant: SADE Referring MD: Helena Black PA-C Symptoms: murmur, IVDU Study Quality: Adequate w/Contrast ECG Rhythm: Tachycardia Conclusions: - Essentially normal study without any clear evidence of vegetations Findings Procedure Information Contrast agent, definity, is being given per protocol without apparent complications. The study quality is limited by an uncooperative patient. Left Ventricle Normal left ventricular size and systolic function. There is mildly increased left ventricular wall thickness. The visually estimated ejection fraction is between 65-70%. Spectral Doppler is indicative of an impaired relaxation filling pattern. E/E prime ratio is <8, consistent with normal filling pressures. Evidence suggests grade I (mild) diastolic dysfunction. Right Ventricle Normal right ventricular cavity size and systolic function. Atria The left atrium is normal in size. There is no evidence of interatrial shunt. The right atrium is normal in size. Aortic Valve Normal aortic valve structure and function. There is no aortic valve stenosis. There is no aortic valve regurgitation. Mitral Valve Normal mitral valve structure and function. There is trace mitral valve regurgitation. There is no mitral valve stenosis. Pulmonic Valve The pulmonic valve is likely normal. Tricuspid Valve Normal tricuspid valve structure. Tricuspid regurgitation envelope is inadequate for calculation of right ventricular systolic pressure. Normal right atrial pressure. Great Vessels All visible segments of the aorta are normal in size. The pulmonary artery was not well visualized. Venous The inferior vena cava is normal in size and collapses greater than 50% with inspiration. Pericardium/Pleural There is no evidence of pericardial effusion. Prior Study Comparison No significant change compared to prior study dated: 10/14/2023. Measurements 2D Linear Measurements IVSd: 1.19 0.6-0.9/0.6-1.0 cm LVIDd: 3.87 3.9-5.3/4.2-5.9 cm LVIDd Index: 1.82 2.4-3.2/2.2-3.1 cm/m2 LVIDs: 2.16 2.0-3.6 cm LVPWd: 1.30 0.7-1.1 cm LA Diam: 3.30 2.7-3.8/3.0-4.0 cm LAIDs Index: 1.55 1.5-2.3 cm/m2 LV Mass: 207.27 67-162/88-224 g LV Mass Index: 97.31 43-95/49-115 g/m2 LVOT Diam: 2.20 3.0+(-)1.3 cm 2D Systolic Function EF 4C: 64.00 >55% EF 2C: 71.60 >55% EF BiP: 67.80 >55% Mitral Valve MV Pk E: 1.10 MV PK A: 1.27 MV Decel Time: 169.00 E/A: 0.90 E'Lateral: 22.50 E'Medial: 22.10 E/E' Med: 5.00 E/E' Lat: 4.90 PHT: 49.00 MVA PHT: 4.49 Decel Harrison: 6.54 Aortic Valve AoV Pk Gabriel: 1.63 AoV Mn Gabriel: 1.15 AoV VTI: 0.23 AoV Pk Grad: 11.00 Aov Mn Grad: 6.00 ARTEMIO Cont.VTI: 3.37 LVOT LVOT Pk Gabriel: 1.33 LVOT Mn Gabriel: 0.98 LVOT VTI: 0.21 LVOT Pk Grad: 7.00 LVOT Mn Grad: 4.00 LVOT Diam: 2.20 LVOT Area: 3.80 Diastolic Function MV Pk E: 1.10 MV Pk A: 1.27 E/A: 0.90 E'Medial: 22.10 E/E' Med: 5.00 E' Laterial: 22.50 E/E' Lat: 4.90 Right Ventricle TAPSE (mm): 25.70 TVS' Gabriel: 15.20 Tricuspid Valve RA Press: 3.00 Great Vessels Aorta Sinus of Valsalva: 3.80 2.0-3.5 cm Ao Asc: 3.90 2.1-3.4 cm Ao Arch: 2.60 Pulmonary Valve PV Pk Gabriel: 0.98 Peak PV Grad: 4.00 Updated in Other Vendor System with Status of Final Rickey Webber MD electronically signed on 02/01/2025 11:43:39 AM with status of Final
--- NOTE | 2025-02-01 07:06 | PC.NURSE ---
pt hr reported to Helena GARCÍA, ekg ordered done and picture sent to [facility]ah[facility].
[2025-02-01 07:08] LABS: Mean Corpuscular Volume 59.7 fL (80.0-98.0)
--- NOTE | 2025-02-01 07:27 | PHA.MEDREC ---
Pharmacy Consult ? Medication Reconciliation Pharmacy has completed the medication reconciliation. Utilized claim history
--- NOTE | 2025-02-01 07:55 | HO.PM.IMPN ---
Subjective Subjective Date of Service: 02/02/25 Interval History: f/u on seizure no further seizure Physical Exam Vital Signs: Vital Signs: Last Vital Signs Temp 97.9 F 02/01/25 06:31 Pulse 131 H 02/01/25 06:31 Resp 14 02/01/25 06:31 BP 119/74 02/01/25 06:31 Pulse Ox 97 02/01/25 04:06 O2 Del Method Room Air 02/01/25 06:31 BMI result Body Mass Index 30.2 Const: Other: General: AO X 3, no acute distress Resp: CTA bilateral CVS: S1,S2,RRR GI: +BS, NT, no distention Skin: w Neuro: motor grossly intact Psych: appropriate affect Objective Data Active Medications Acetaminophen (Acetaminophen 325 Mg Tablet) 975 mg PO Q6H PRN PRN Reason: Pain, Mild 1-3,fever,headache Baclofen (Baclofen 10 Mg Tablet) 10 mg PO BID SUKHDEEP Calcium Carbonate (Calcium Carbonate 750 Mg Tab.Chew) 750 mg PO Q4H PRN PRN Reason: Heartburn Clonazepam (Clonazepam 1 Mg Tablet) 1 mg PO TID SUKHDEEP Clonidine HCl (Clonidine Hcl 0.1 Mg Tablet) 0.1 mg PO TID SUKHDEEP; Protocol Diazepam (Diazepam 10 Mg/2 Ml Cartridge) 5 mg IVPUSH Q3H PRN PRN Reason: Seizures Gabapentin (Gabapentin 600 Mg Tablet) 600 mg PO TID SUKHDEEP Gabapentin (Gabapentin 300 Mg Capsule) 300 mg PO BEDTIME [facility] Lactated Ringer's (Lr) 1,000 mls @ 80 mls/hr IVCONT .[id number] [facility] Last Admin: 02/01/25 04:33 Dose: 80 mls/hr Documented By: CLARICE Piperacillin Sod/Tazobactam (Sod 3.375 gm/ Sodium Chloride) 50 mls @ 100 mls/hr IV Q6H [facility] Last Admin: 02/01/25 06:48 Dose: 100 mls/hr Documented By: ABRAN Magnesium Hydroxide (Milk Of Magnesia 30 Ml Oral.Susp) 30 ml PO DAILY PRN PRN Reason: Constipation Melatonin (Melatonin 3 Mg Tablet) 6 mg PO BEDTIME PRN PRN Reason: Insomnia Nicotine (Nicotine 21 Mg Patch.Td24) 21 mg TRANSDERMA DAILY [facility] Ondansetron HCl (Ondansetron Hcl 4 Mg/2 Ml Vial) 4 mg IVPUSH Q8H PRN PRN Reason: Nausea and Vomiting Oxycodone HCl (Oxycodone Hcl Immed Release 5 Mg Tablet) 5 mg PO Q6H PRN PRN Reason: Pain, Severe (Pain Scale 7-10) Sodium Chloride (0.9 % Sodium Chloride Flush 3 Ml Syringe) 3 ml IVFLUSH QSHIFT [facility] Last Admin: 02/01/25 06:49 Dose: 3 ml Documented By: ABRAN Tramadol HCl (Tramadol Hcl 50 Mg Tablet) 50 mg PO Q6H PRN PRN Reason: Pain, Moderate(Pain Scale 4-6) Labs 02/02/25 06:31 02/02/25 06:31 Labs: Laboratory Results - last 24 hr 01/31/25 02/01/25 02/01/25 23:45 00:07 02:20 MCV 60.2 L MCH 17.4 L MCHC 28.9 L RDW 17.2 H Plt Count 437 H MPV 9.4 Immature Gran % (Auto) 0.4 Neut % (Auto) 76.6 H Lymph % (Auto) 12.0 L [place] % (Auto) 10.1 Eos % (Auto) 0.7 Baso % (Auto) 0.2 Lymph # (Auto) 1.0 L [place] # (Auto) 0.9 Eos # (Auto) 0.1 Baso # (Auto) 0.0 Abs Immat Gran (auto) 0.03 Absolute Neuts (auto) 6.5 Absolute Nucleated RBC 0.000 Nucleated RBC % (auto) 0.0 Smear Path Review Cancelled ESR 28 H Anion Gap 13 Estim Creat Clear Calc 180.0 Estimated GFR > 60 POC Glucose 126 H Random Glucose 78 Estimat Average Glucose 131 Hemoglobin A1c % 6.2 H Lactic Acid 2.6 H* Lactic Acid F/U @ 2Hr 0.7 Calcium 8.8 Magnesium Iron 19 L TIBC 303 % Saturation 6 L Unsat Iron Binding 284 Total Bilirubin 0.2 AST 31 ALT 16 Alkaline Phosphatase 84 Troponin I High Sens < 2.7 C-Reactive Protein 2.56 H Total Protein 7.3 Albumin 3.8 Vitamin B12 Folate Hold Red Top Urine Color Urine Appearance Urine pH Ur Specific [place] Urine Protein Urine Glucose (UA) Urine Ketones Urine Blood Urine Nitrite Ur Leukocyte Esterase Urine RBC Urine WBC Ur Squamous Epith Cells Urine Bacteria Hyaline Casts Urine Opiates Screen Ur Buprenorphine Scrn Ur Oxycodone Screen Urine Methadone Screen Urine Fentanyl Screen Ur Barbiturates Screen Ur Phencyclidine Scrn Ur Amphetamines Screen U Benzodiazepines Scrn Urine Cocaine Screen U Marijuana (THC) Screen 02/01/25 02/01/25 04:21 05:28 MCV 59.7 L MCH 17.2 L MCHC 28.8 L RDW 17.2 H Plt Count 380 MPV 9.4 Immature Gran % (Auto) Neut % (Auto) Lymph % (Auto) [place] % (Auto) Eos % (Auto) Baso % (Auto) Lymph # (Auto) [place] # (Auto) Eos # (Auto) Baso # (Auto) Abs Immat Gran (auto) Absolute Neuts (auto) Absolute Nucleated RBC 0.000 Nucleated RBC % (auto) 0.0 Smear Path Review ESR Anion Gap 11 L Estim Creat Clear Calc 208.0 Estimated GFR > 60 POC Glucose Random Glucose 105 Estimat Average Glucose Hemoglobin A1c % Lactic Acid Lactic Acid F/U @ 2Hr Calcium 8.3 L Magnesium 1.9 Iron TIBC % Saturation Unsat Iron Binding Total Bilirubin AST ALT Alkaline Phosphatase Troponin I High Sens C-Reactive Protein Total Protein Albumin Vitamin B12 452 Folate 9.9 Hold Red Top See Note Urine Color Yellow Urine Appearance Clear Urine pH 5.5 Ur Specific [place] >= 1.030 H Urine Protein Negative Urine Glucose (UA) Negative Urine Ketones Negative Urine Blood Negative Urine Nitrite Negative Ur Leukocyte Esterase Negative Urine RBC 0-2 Urine WBC 0-5 Ur Squamous Epith Cells 0-2 Urine Bacteria None Seen Hyaline Casts 0-2 Urine Opiates Screen Not Detected Ur Buprenorphine Scrn Not Detected Ur Oxycodone Screen Not Detected Urine Methadone Screen Positive H Urine Fentanyl Screen POSITIVE H Ur Barbiturates Screen Not Detected Ur Phencyclidine Scrn Not Detected Ur Amphetamines Screen Not Detected U Benzodiazepines Scrn Not Detected Urine Cocaine Screen POSITIVE H U Marijuana (THC) Screen Not Detected Assessment and Plan (1) Diabetes: Status: Acute Plan Patient is a 34-year-old male with a past medical history significant for polysubstance use including IV cocaine and heroin, chronic wounds in the upper extremities previously followed by wound care, ?epileptic disorder, history of MRSA bacteremia and mild intermittent asthma, who arrived to the ED via EMS after being picked up at home for a convulsive witnessed seizure. seizure, clonic, witnessed - pt denies hx of seizure disorder but has had seizures from drug use, likely drug related, ct ok, eeg pending, not sure if MRI is warranted will discuss with Neuro, PRN diazepam for recurrent seizure, hold antiepileptics for now. Seen by Neuro. likely drug related, for now hold MRI polysubstance abuse/overdose, likely cause of seizure, +Fentanyl and cocaine.. On prescribed methadone, gabaenting chronic upper extremity wounds with superimposed infection in IVDU follow culture continue vanco and zosyn echo for concern of murmur ID, vascular, surgery/wound consult for possible debridment elevated blood glucose A1c 6.2% monitor POC microcytic anemia hgb 8.0, hct 27.7, mcv 60.2-->Hgb 7.2/25--> 7.5/26 likely chronic disease and chronic external blood loss from wound mild intermittent asthma, no acute exacerbation class 1 obesity BMI 30.2 weight loss encouraged tobacco use disorder nicotine patch smoking cessation encouraged full code VTE prophy: pneumoboots pending anemia eval Quality Stroke Does the patient have a stroke diagnosis?: No VTE Prior VTE?: No VTE Risk Level:: Medical - moderate - high VTE Device Contraindication: N/A - Device Ordered VTE Drug Contraindication: Treatment Not Indicated
[2025-02-01] MEDS: Nicotine 21 MG PATCH.TD24 TRANSDERMA (08:00)
[2025-02-01 08:47] LABS: Troponin-I High Sensitivity < 2.7 ng/L (<3.5-35.0)
[2025-02-01 09:24] LABS: Glucose, Whole Blood 116 mg/dL (60-115)
[2025-02-01 11:51] LABS: Glucose, Whole Blood 102 mg/dL (60-115)
--- NOTE | 2025-02-01 12:37 | PM.NEUROCN ---
History of Present Illness Data of Consult Service Date: 02/01/25 Primary Care Provider: Unknown Physician HPI Reason for consult: Convulsion 34 years old man with polysubstance abuse including cocaine and heroin was brought to hospital for a convulsion type of episode. He was unable to provide any history and has been stuporous to unresponsive sensory arrived. His tox screen was positive for multiple drugs including cocaine. Hemoglobin was quite low. He also suffered from wounds in upper extremities and apparently was getting treatment from that through wound care. He was not febrile. Review of Systems Review of Systems: Could not be done with a [facility] Past Medical History Medical History Bacteremia Arm ulcer MRSA bacteremia Suicidal ideation Depression Cocaine use with cocaine-induced disorder Opiate dependence, continuous Major depressive disorder, recurrent severe without psychotic features Depression Anxiety IVDU (intravenous drug user) Asthma Family History Family History Father Heart disease Surgical History Surgical History History of surgery (10/02/24) Social History Social History Household Members: Unknown / Unable to assess Household Members Other:: mother Housing: Unknown / Unable to assess Housing Other:: lives with parents Are you a primary director of medicare to a significant other at home: No Do you presently have visiting nurse or other home services: No Alcohol intake: unknown Comment: counts correct Patient Tobacco Use Status: Tobacco use Unknown Tobacco use type: Cigarette Cigarette Packs Per Day: 1 Cigarettes Per Day: 20.0 Years Smoked: 15 Smoked in Last 30 Days: No e-Cigarette/Vaping Use: Never Used Second Hand Smoke Exposure: No Use of substances other than those prescribed or required for medical reasons: Yes Substance Use Type: Crack/Cocaine and Tranquilizers Advance Directives: No Advance Directives Date on File: 01/30/21 Do you have a plan to hurt others: No Plan service: No Current occupational status: unemployed Sexual orientation: Straight/Heterosexual Meds Allergies Allergy/AdvReac Type Severity Reaction Status Date / Time Pertussis Vaccines Allergy Mild HIVES Verified 01/31/25 23:49 (PERTUSSIS VACCINES) Active Medications: Current Medications Acetaminophen (Acetaminophen 325 Mg Tablet) 975 mg PO Q6H PRN PRN Reason: Pain, Mild 1-3,fever,headache Baclofen (Baclofen 10 Mg Tablet) 10 mg PO BID [facility] Last Admin: 02/01/25 08:01 Dose: 10 mg Calcium Carbonate (Calcium Carbonate 750 Mg Tab.Chew) 750 mg PO Q4H PRN PRN Reason: Heartburn Clonazepam (Clonazepam 1 Mg Tablet) 1 mg PO TID [facility] Last Admin: 02/01/25 08:01 Dose: 1 mg Clonidine HCl (Clonidine Hcl 0.1 Mg Tablet) 0.1 mg PO TID [facility]; Protocol Last Admin: 02/01/25 08:01 Dose: 0.1 mg Diazepam (Diazepam 10 Mg/2 Ml Cartridge) 5 mg IVPUSH Q3H PRN PRN Reason: Seizures Gabapentin (Gabapentin 600 Mg Tablet) 600 mg PO TID [facility] Last Admin: 02/01/25 08:01 Dose: 600 mg Gabapentin (Gabapentin 300 Mg Capsule) 300 mg PO BEDTIME [facility] Lactated Ringer's (Lr) 1,000 mls @ 80 mls/hr IVCONT .[id number] [facility] Last Admin: 02/01/25 04:33 Dose: 80 mls/hr Piperacillin Sod/Tazobactam (Sod 3.375 gm/ Sodium Chloride) 50 mls @ 100 mls/hr IV Q6H [facility] Last Admin: 02/01/25 12:13 Dose: 100 mls/hr Magnesium Hydroxide (Milk Of Magnesia 30 Ml Oral.Susp) 30 ml PO DAILY PRN PRN Reason: Constipation Melatonin (Melatonin 3 Mg Tablet) 6 mg PO BEDTIME PRN PRN Reason: Insomnia Nicotine (Nicotine 21 Mg Patch.Td24) 21 mg TRANSDERMA DAILY [facility] Last Admin: 02/01/25 08:00 Dose: 21 mg Ondansetron HCl (Ondansetron Hcl 4 Mg/2 Ml Vial) 4 mg IVPUSH Q8H PRN PRN Reason: Nausea and Vomiting Oxycodone HCl (Oxycodone Hcl Immed Release 5 Mg Tablet) 5 mg PO Q6H PRN PRN Reason: Pain, Severe (Pain Scale 7-10) Sodium Chloride (0.9 % Sodium Chloride Flush 3 Ml Syringe) 3 ml IVFLUSH QSHIFT [facility] Last Admin: 02/01/25 06:49 Dose: 3 ml Tramadol HCl (Tramadol Hcl 50 Mg Tablet) 50 mg PO Q6H PRN PRN Reason: Pain, Moderate(Pain Scale 4-6) Home Medications ?Medication ?Instructions ?Recorded ?Confirmed ?Last Taken ?Type methadone 10 mg/mL oral 170 mg PO DAILY 10/13/23 02/28/24 02/27/24 09:19 History concentrate (Methadone Intensol) clonazepam 1 mg tablet 1 mg PO TID 02/28/24 02/01/25 02/27/24 20:00 History clonidine HCl 0.1 mg tablet 0.1 mg PO TID 02/28/24 02/01/25 02/27/24 20:00 History gabapentin 300 mg capsule 300 mg PO BEDTIME 02/28/24 02/01/25 02/26/24 21:00 History gabapentin 600 mg tablet 600 mg PO TID 02/28/24 02/01/25 02/27/24 17:00 History mirtazapine 7.5 mg tablet 7.5 mg PO BEDTIME 02/28/24 02/01/25 02/26/24 21:00 History quetiapine 100 mg tablet 100 - 200 mg PO BEDTIME PRN 02/28/24 02/01/25 Unknown History Insomnia escitalopram oxalate 10 mg tablet 10 mg PO QAM 02/01/25 02/01/25 Unknown History Physical Exam Vital Signs: Vital Signs: Last Vital Signs Temp 97.5 F 02/01/25 12:00 Pulse 105 H 02/01/25 12:00 Resp 18 02/01/25 12:00 BP 129/84 02/01/25 12:00 Pulse Ox 95 02/01/25 12:00 O2 Del Method Room Air 02/01/25 12:00 BMI result Body Mass Index 30.2 Neuro: Other: Very drowsy and barely responsive to sternal rub. No obvious abnormal posturing. Eyes were midline with no nystagmus. Plantars were flexor. Exam was limited. Results Labs 02/01/25 05:28 02/01/25 05:28 Labs: Short CBC 02/01/25 02/01/25 Range/Units 00:07 05:28 WBC 8.5 7.6 (4.8-10.8) X10*3/uL Hgb 8.0 L 7.2 L (14.0-18.0) g/dl Hct 27.7 L 25.0 L (42.0-52.0) % Plt Count 437 H 380 (160-400) X10*3/uL BMP 02/01/25 02/01/25 00:07 05:28 Sodium 140 140 Potassium 3.3 D 3.6 Chloride 107 108 Carbon Dioxide 23 25 BUN 18 H 12 Creatinine 0.67 0.58 Calcium 8.8 8.3 L Liver Function 02/01/25 Range/Units 00:07 Total Bilirubin 0.2 (0.0-1.0) mg/dL AST 31 (5-37) U/L ALT 16 (0-40) U/L Alkaline Phosphatase 84 (39-117) U/L Albumin 3.8 (3.5-5.0) g/dL Urine 02/01/25 Range/Units 04:21 Urine Color Yellow Urine Appearance Clear Urine pH 5.5 (5.0-9.0) Ur Specific [place] >= 1.030 H (1.005-1.025) Urine Protein Negative (Neg-Trace) mg/dL Urine Glucose (UA) Negative (Negative) mg/dL Noncontrast head CT did not reveal any significant abnormality. Microbiology Microbiology Results: Microbiology 02/01/25 00:39 Arm Right Gram Stain - Final 02/01/25 00:39 Arm Left Gram Stain - Final Assessment and Plan (1) Seizure: Status: Acute 34 years old man with polysubstance abuse including cocaine was brought to hospital apparently after it convulsion type of episode. At this time he was stuporous likely due to multiple factors including drugs. For now, nursing care is recommended until chemical were out of his system and better examination can be done. Long-term management dependent upon management of drug abuse. Epilepsy is a possibility but convulsion might have been related to chemicals. Procedures Date of Service Date of Service: 02/01/25
[2025-02-01 15:13] LABS: Glucose, Whole Blood 106 mg/dL (60-115)
--- NOTE | 2025-02-01 15:25 | HO.SUDE ---
Attempted to meet with pt. in 445- in the AM and again in the PM for SUDE and ACS consult Pt sleeping and did not awaken to voice (calling name seveal times). Pt has been minimally responsive all day per notes. Will re attempt assessment when pt. able to participate. ACS available PRN during pt stay.
[2025-02-01] MEDS: Lactated Ringers 1,000 ML 125 ML IVCONT ×2 (16:01→23:20)
[2025-02-01 22:34] LABS: Glucose, Whole Blood 69 mg/dL (60-115)
[2025-02-01 22:34] LABS: Glucose, Whole Blood 89 mg/dL (60-115)
[2025-02-02] VITALS (9 sets, daily range): BP systolic 95–144; BP diastolic 47–74; PULSE 59–78; RESP 16–20; TEMP 36.2–37.1; O2SAT 96–98
[2025-02-02] MEDS: Lactated Ringers 1,000 ML 125 ML IVCONT ×2 (06:24→18:15)
[2025-02-02 07:14] LABS: Hematocrit 26.0 % (42.0-52.0); Hemoglobin 7.5 g/dl (14.0-18.0); Mean Corpuscular HGB Conc 28.8 g/dl (31.0-36.0); Mean Corpuscular Hemoglobin 17.2 pg (27.0-33.0); NRBC Abs Auto 0.000 X10*3/uL (0.0-0.012); NRBC Pct Auto 0.0 /100WBC (0.0-0.2); PLT CLUMP 1; Red Blood Count 4.37 X10*6/uL (4.60-5.80)
[2025-02-02 07:17] LABS: Mean Corpuscular Volume 59.5 fL (80.0-98.0)
[2025-02-02 07:34] LABS: Anion Gap 16 (12-20); Blood Urea Nitrogen 8 mg/dL (9-16); Calcium 8.5 mg/dL (8.4-10.2); Carbon Dioxide 21 mmol/L (22-29); Chloride 108 mmol/L (96-108); Creatinine Clr Calc Pharmacy 194.6; Estimated Glomerular Filt Rate > 60; Magnesium 1.8 mg/dL (1.6-2.6); Potassium 3.7 mmol/L (3.3-5.1); Sodium 141 mmol/L (135-145)
[2025-02-02 07:46] LABS: Glucose, Whole Blood 84 mg/dL (60-115)
[2025-02-02 07:55] LABS: Thyroid Stimulating Hormone 1.03 uIU/mL (0.32-4.0); White Blood Count 7.9 X10*3/uL (4.8-10.8)
[2025-02-02] MEDS: Nicotine 21 MG PATCH.TD24 TRANSDERMA (09:32)
--- NOTE | 2025-02-02 09:57 | P.CONGS_ITS ---
History of Present Illness Consult details Consult date: 02/02/25 Requesting physician: Kal Ruiz Narrative: 34-year-old male patient with history of IV drug use presenting after having a seizure at home. Patient had used 3 bags heroin prior to this. He reports injecting in his arms. He is well known to our service with bilateral arm ulceration due to IV injections. He previously underwent operative debridement of the bilateral arm ulcers on 10/02/2024 with the intention of eventually placing skin grafts to close the wound. Patient was lost to follow up and continues to inject in his arms on a regular basis. Surgical consultation was requested for possible debridement of the bilateral arm ulceration. Review of Systems 2 Review of Systems: Yes Unobtainable due to mental status PMFSH Past Medical History Medical History Bacteremia Arm ulcer MRSA bacteremia Suicidal ideation Depression Cocaine use with cocaine-induced disorder Opiate dependence, continuous Major depressive disorder, recurrent severe without psychotic features Depression Anxiety IVDU (intravenous drug user) Asthma Family History Family History Father Heart disease Surgical History Surgical History History of surgery (10/02/24) Social History Social History Household Members: Unknown / Unable to assess Household Members Other:: mother Housing: Unknown / Unable to assess Housing Other:: lives with parents Are you a primary student career development specialist to a significant other at home: No Do you presently have visiting nurse or other home services: No Alcohol intake: unknown Comment: counts correct Patient Tobacco Use Status: Tobacco use Unknown Tobacco use type: Cigarette Cigarette Packs Per Day: 1 Cigarettes Per Day: 20.0 Years Smoked: 15 e-Cigarette/Vaping Use: Never Used Second Hand Smoke Exposure: No Substance Use Type: Crack/Cocaine and Tranquilizers Advance Directives Date on File: 01/30/21 service: No Current occupational status: unemployed Sexual orientation: Straight/Heterosexual Meds Allergies Allergy/AdvReac Type Severity Reaction Status Date / Time Pertussis Vaccines Allergy Mild HIVES Verified 01/31/25 23:49 (PERTUSSIS VACCINES) Active Medications: Current Medications Acetaminophen (Acetaminophen 325 Mg Tablet) 975 mg PO Q6H PRN PRN Reason: Pain, Mild 1-3,fever,headache Baclofen (Baclofen 10 Mg Tablet) 10 mg PO BID [facility] Last Admin: 02/02/25 09:32 Dose: 10 mg Calcium Carbonate (Calcium Carbonate 750 Mg Tab.Chew) 750 mg PO Q4H PRN PRN Reason: Heartburn Clonazepam (Clonazepam 1 Mg Tablet) 1 mg PO TID PRN PRN Reason: anxiety/restlessness Clonidine HCl (Clonidine Hcl 0.1 Mg Tablet) 0.1 mg PO TID [facility]; Protocol Last Admin: 02/02/25 09:32 Dose: 0.1 mg Diazepam (Diazepam 10 Mg/2 Ml Cartridge) 5 mg IVPUSH Q3H PRN PRN Reason: Seizures Escitalopram Oxalate (Escitalopram Oxalate 10 Mg Tablet) 10 mg PO DAILY [facility] Last Admin: 02/02/25 09:32 Dose: 10 mg Gabapentin (Gabapentin 600 Mg Tablet) 600 mg PO TID [facility] Last Admin: 02/02/25 09:32 Dose: 600 mg Gabapentin (Gabapentin 300 Mg Capsule) 300 mg PO BEDTIME [facility] Last Admin: 02/01/25 20:43 Dose: Not Given Lactated Ringer's (Lr) 1,000 mls @ 125 mls/hr IVCONT .Q8H [facility] Last Admin: 02/02/25 06:24 Dose: 125 mls/hr Piperacillin Sod/Tazobactam (Sod 3.375 gm/ Sodium Chloride) 50 mls @ 100 mls/hr IV Q6H [facility] Last Infusion: 02/02/25 06:29 Dose: Infused Magnesium Hydroxide (Milk Of Magnesia 30 Ml Oral.Susp) 30 ml PO DAILY PRN PRN Reason: Constipation Melatonin (Melatonin 3 Mg Tablet) 6 mg PO BEDTIME PRN PRN Reason: Insomnia Mirtazapine (Mirtazapine 7.5 Mg Tablet) 7.5 mg PO BEDTIME [facility] Last Admin: 02/01/25 20:19 Dose: 7.5 mg Nicotine (Nicotine 21 Mg Patch.Td24) 21 mg TRANSDERMA DAILY [facility] Last Admin: 02/02/25 09:32 Dose: 21 mg Ondansetron HCl (Ondansetron Hcl 4 Mg/2 Ml Vial) 4 mg IVPUSH Q8H PRN PRN Reason: Nausea and Vomiting Oxycodone HCl (Oxycodone Hcl Immed Release 5 Mg Tablet) 5 mg PO Q6H PRN PRN Reason: Pain, Severe (Pain Scale 7-10) Quetiapine Fumarate (Quetiapine Fumarate 100 Mg Tablet) 100 mg PO BEDTIME PRN PRN Reason: Insomnia Sodium Chloride (0.9 % Sodium Chloride Flush 3 Ml Syringe) [facility] Admin: 02/02/25 09:34 Dose: Not Given Tramadol HCl (Tramadol Hcl 50 Mg Tablet) 50 mg PO Q6H PRN PRN Reason: Pain, Moderate(Pain Scale 4-6) Home Medications ?Medication ?Instructions ?Recorded ?Confirmed ?Last Taken ?Type methadone 10 mg/mL oral 170 mg PO DAILY 10/13/2302/27/24 09:19 History concentrate (Methadone Intensol) clonazepam 1 mg tablet 1 mg PO TID 02/28/24 5 02/27/24 20:00 History clonidine HCl 0.1 mg tablet 0.1 mg PO TID 02/28/2411/2302/27/24 20:00 History gabapentin 300 mg capsule 300 mg PO BEDTIME 02/28/24 0 02/01/25 02/26/24 21:00 History gabapentin 600 mg tablet 600 mg PO TID 02/28/2402/0102/27/24 17:00 History mirtazapine 7.5 mg tablet 7.5 mg PO BEDTIME 02/28/24 0 02/01/25 02/26/24 21:00 History quetiapine 100 mg tablet 100 - 200 mg PO BEDTIME PRN 02/28/24 02/01/25 Unknown History Insomnia escitalopram oxalate 10 mg tablet 10 mg PO QAM 5 02/01/25 Unknown History Physical Exam 2 Vital Signs: Vital Signs: Last Vital Signs Temp 98.8 F 02/02/25 07:49 Pulse 62 02/02/25 07:49 Resp 18 02/02/25 07:49 BP 125/56 L 02/02/25 07:49 Pulse Ox 98 02/02/25 07:49 O2 Del Method Room Air 02/02/25 07:49 BMI result Body Mass Index 30.2 Const: General: ill appearing and lethargic; No well groomed O rientation/consciousness: lethargic Resp: Effort & Inspection: normal respiratory effort GI: Inspection: Yes normal to inspection Extrem: Other: Bilateral upper extremity ulceration noted on ED photos. Wounds are currently dressed with clean dry dressings. Results Labs 02/02/25 06:31 02/02/25 06:31 Labs: Abnormal lab results 02/02/25 Range/Units 06:31 RBC 4.37 L (4.60-5.80) X10*6/uL Hgb 7.5 L (14.0-18.0) g/dl Hct 26.0 L (42.0-52.0) % MCV 59.5 L (80.0-98.0) fL MCH 17.2 L (27.0-33.0) pg MCHC 28.8 L (31.0-36.0) g/dl RDW 17.4 H (11.0-16.0) % Carbon Dioxide 21 L (22-29) mmol/L BUN 8 L (9-16) mg/dL Short CBC 02/02/25 Range/Units 06:31 WBC 7.9 (4.8-10.8) X10*3/uL Hgb 7.5 L (14.0-18.0) g/dl Hct 26.0 L (42.0-52.0) % Plt Count TNP BMP 02/02/25 06:31 Sodium 141 Potassium 3.7 Chloride 108 Carbon Dioxide 21 L BUN 8 L Creatinine 0.62 Calcium 8.5 Urine 02/01/25 Range/Units 04:21 Urine Color Yellow Urine Appearance Clear Urine pH 5.5 (5.0-9.0) Ur Specific [place] >= 1.030 H (1.005-1.025) Urine Protein Negative (Neg-Trace) mg/dL Urine Glucose (UA) Negative (Negative) mg/dL All other labs normal. Assessment and Plan (1) Soft tissue infection: Status: Acute (2) Arm ulcer: Qualifiers: Non-pressure ulcer stage: unspecified non-pressure ulcer stage Q ualified Code(s): L98.499 - Non-pressure chronic ulcer of skin of other sites with unspecified severity Status: Acute Plan 34-year-old male patient again returning with bilateral upper extremity ulcerations which would require debridement in the OR. Chances of these wounds healing is extremely poor and would require patient cooperation and close follow-up which would not be possible with [facility]. I discussed returning to the OR to debride the ulcers once he is medically clear following his seizure. He expressed understanding and agrees with the plan. Long-term wound management we will continue to be a problem without long-term inpatient care. Procedures Date of Service Date of Service: 02/02/25
--- NOTE | 2025-02-02 10:02 | MHC.CM.PN ---
DX SEIZURE DISORDER, ZIGGY ARM WOUNDS Pt lives with his Mother. He is independent with all functional mobility. He receives Methadone from [email or web address] Surgical consult complete debridement of ziggy UE planned for Tuesday or Tuesday of next week. A new HCP has been documented and scanned into the patients EMR. No PCP, C Brochure provided. DP home self care resume Methadone program @ [email or web address]. Patient will arrange for transport home. vs community resources provided by the Recovery team.
--- NOTE | 2025-02-02 10:49 | HE.PHANOTE ---
METHADONE Last dosed 170mg on 01/31/25 @0557. Pt given 6 take home bottles per CHARLEY Barrett at [facility] .
[2025-02-02 11:49] LABS: Glucose, Whole Blood 85 mg/dL (60-115)
--- NOTE | 2025-02-02 12:44 | HO.ADDICTCON ---
History of Present Illness Date of Service: 02/02/2025 Chief Complaint: seizure Reason for Consult: EL[place] Sources of Information: patient interviewed and chart reviewed HPI Narrative: Patient is a 34 year old male with hisory of ELMER, medically admitted following witnessed seizure. Well known to [facility] via previously admissions. Patient unable to wake and participate in interview when seen by this signwriter--would briefly open eyes to voice, then quickly fall back to sleep. Appearing diaphoretic. UDS +fentanyl and cocaine. methadone 170mg QD--dose verified. IN ED reported IVDU. HIV and Hepatitis screen -, 2023. Past Psychiatric History: hosps: 6-7 SA: reports 1, 5+ yrs ago, via intentional overdose on heroin SIB: denies HIB: denies Flo Strickland- psychiatric provider ([facility] in [place]) no therapist. Review of Systems Review of Systems Yes Unobtainable due to mental status Diagnostics Vital Signs (24Hr): Vital Signs - 24 hr 02/01/25 15:54 02/01/25 19:20 02/01/25 23:40 Temperature 98.9 F 98.9 F 98.8 F Pulse Rate 120 H 89 73 Respiratory Rate 18 16 16 Blood Pressure 126/86 114/66 138/61 Pulse Oximetry 93 100 96 Oxygen Delivery Method Room Air Room Air Room Air 02/02/25 03:42 02/02/25 07:49 02/02/25 11:54 Temperature 98.2 F 98.8 F 97.2 F Pulse Rate 73 62 78 Respiratory Rate 16 18 18 Blood Pressure 144/55 H 125/56 L 136/71 Pulse Oximetry 96 98 98 Oxygen Delivery Method Room Air Room Air Room Air BMI result Body Mass Index 30.2 Labs 02/02/25 06:31 02/02/25 06:31 Labs: Laboratory Results - last 48 hr 01/31/25 02/01/25 02/01/25 23:45 00:07 02:20 WBC 8.5 RBC 4.60 Hgb 8.0 L Hct 27.7 L MCV 60.2 L MCH 17.4 L MCHC 28.9 L RDW 17.2 H Plt Count 437 H MPV 9.4 Immature Gran % (Auto) 0.4 Neut % (Auto) 76.6 H Lymph % (Auto) 12.0 L [place] % (Auto) 10.1 Eos % (Auto) 0.7 Baso % (Auto) 0.2 Lymph # (Auto) 1.0 L [place] # (Auto) 0.9 Eos # (Auto) 0.1 Baso # (Auto) 0.0 Abs Immat Gran (auto) 0.03 Absolute Neuts (auto) 6.5 Absolute Nucleated RBC 0.000 Nucleated RBC % (auto) 0.0 Smear Path Review Cancelled ESR 28 H Sodium 140 Potassium 3.3 D Chloride 107 Carbon Dioxide 23 Anion Gap 13 BUN 18 H Creatinine 0.67 Estim Creat Clear Calc 180.0 Estimated GFR > 60 POC Glucose 126 H Random Glucose 78 Estimat Average Glucose 131 Hemoglobin A1c % 6.2 H Lactic Acid 2.6 H* Lactic Acid F/U @ 2Hr 0.7 Calcium 8.8 Magnesium Iron 19 L TIBC 303 % Saturation 6 L Unsat Iron Binding 284 Total Bilirubin 0.2 AST 31 ALT 16 Alkaline Phosphatase 84 Troponin I High Sens < 2.7 C-Reactive Protein 2.56 H Total Protein 7.3 Albumin 3.8 Vitamin B12 Folate TSH Hold Red Top Urine Color Urine Appearance Urine pH Ur Specific Eleele Urine Protein Urine Glucose (UA) Urine Ketones Urine Blood Urine Nitrite Ur Leukocyte Esterase Urine RBC Urine WBC Ur Squamous Epith Cells Urine Bacteria Hyaline Casts Urine Opiates Screen Ur Buprenorphine Scrn Ur Oxycodone Screen Urine Methadone Screen Urine Fentanyl Screen Ur Barbiturates Screen Ur Phencyclidine Scrn Ur Amphetamines Screen U Benzodiazepines Scrn Urine Cocaine Screen U Marijuana (THC) Screen 02/01/25 02/01/25 02/01/25 04:21 05:28 08:00 WBC 7.6 RBC 4.19 L Hgb 7.2 L Hct 25.0 L MCV 59.7 L MCH 17.2 L MCHC 28.8 L RDW 17.2 H Plt Count 380 MPV 9.4 Immature Gran % (Auto) Neut % (Auto) Lymph % (Auto) [place] % (Auto) Eos % (Auto) Baso % (Auto) Lymph # (Auto) [place] # (Auto) Eos # (Auto) Baso # (Auto) Abs Immat Gran (auto) Absolute Neuts (auto) Absolute Nucleated RBC 0.000 Nucleated RBC % (auto) 0.0 Smear Path Review ESR Sodium 140 Potassium 3.6 Chloride 108 Carbon Dioxide 25 Anion Gap 11 L BUN 12 Creatinine 0.58 Estim Creat Clear Calc 208.0 Estimated GFR > 60 POC Glucose Random Glucose 105 Estimat Average Glucose Hemoglobin A1c % Lactic Acid Lactic Acid F/U @ 2Hr Calcium 8.3 L Magnesium 1.9 Iron TIBC % Saturation Unsat Iron Binding Total Bilirubin AST ALT Alkaline Phosphatase Troponin I High Sens < 2.7 C-Reactive Protein Total Protein Albumin Vitamin B12 452 Folate 9.9 TSH Hold Red Top See Note Urine Color Yellow Urine Appearance Clear Urine pH 5.5 Ur Specific Eleele >= 1.030 H Urine Protein Negative Urine Glucose (UA) Negative Urine Ketones Negative Urine Blood Negative Urine Nitrite Negative Ur Leukocyte Esterase Negative Urine RBC 0-2 Urine WBC 0-5 Ur Squamous Epith Cells 0-2 Urine Bacteria None Seen Hyaline Casts 0-2 Urine Opiates Screen Not Detected Ur Buprenorphine Scrn Not Detected Ur Oxycodone Screen Not Detected Urine Methadone Screen Positive H Urine Fentanyl Screen POSITIVE H Ur Barbiturates Screen Not Detected Ur Phencyclidine Scrn Not Detected Ur Amphetamines Screen Not Detected U Benzodiazepines Scrn Not Detected Urine Cocaine Screen POSITIVE H U Marijuana (THC) Screen Not Detected 02/01/25 02/01/25 02/01/25 09:18 11:40 15:02 WBC RBC Hgb Hct MCV MCH MCHC RDW Plt Count MPV Immature Gran % (Auto) Neut % (Auto) Lymph % (Auto) [place] % (Auto) Eos % (Auto) Baso % (Auto) Lymph # (Auto) [place] # (Auto) Eos # (Auto) Baso # (Auto) Abs Immat Gran (auto) Absolute Neuts (auto) Absolute Nucleated RBC Nucleated RBC % (auto) Smear Path Review ESR Sodium Potassium Chloride Carbon Dioxide Anion Gap BUN Creatinine Estim Creat Clear Calc Estimated GFR POC Glucose 116 H 102 106 Random Glucose Estimat Average Glucose Hemoglobin A1c % Lactic Acid Lactic Acid F/U @ 2Hr Calcium Magnesium Iron TIBC % Saturation Unsat Iron Binding Total Bilirubin AST ALT Alkaline Phosphatase Troponin I High Sens C-Reactive Protein Total Protein Albumin Vitamin B12 Folate TSH Hold Red Top Urine Color Urine Appearance Urine pH Ur Specific Eleele Urine Protein Urine Glucose (UA) Urine Ketones Urine Blood Urine Nitrite Ur Leukocyte Esterase Urine RBC Urine WBC Ur Squamous Epith Cells Urine Bacteria Hyaline Casts Urine Opiates Screen Ur Buprenorphine Scrn Ur Oxycodone Screen Urine Methadone Screen Urine Fentanyl Screen Ur Barbiturates Screen Ur Phencyclidine Scrn Ur Amphetamines Screen U Benzodiazepines Scrn Urine Cocaine Screen U Marijuana (THC) Screen 02/01/25 02/01/25 02/02/25 20:25 22:31 06:31 WBC 7.9 RBC 4.37 L Hgb 7.5 L Hct 26.0 L MCV 59.5 L MCH 17.2 L MCHC 28.8 L RDW 17.4 H Plt Count TNP MPV TNP Immature Gran % (Auto) Neut % (Auto) Lymph % (Auto) [place] % (Auto) Eos % (Auto) Baso % (Auto) Lymph # (Auto) [place] # (Auto) Eos # (Auto) Baso # (Auto) Abs Immat Gran (auto) Absolute Neuts (auto) Absolute Nucleated RBC 0.000 Nucleated RBC % (auto) 0.0 Smear Path Review ESR Sodium 141 Potassium 3.7 Chloride 108 Carbon Dioxide 21 L Anion Gap 16 BUN 8 L Creatinine 0.62 Estim Creat Clear Calc 194.6 Estimated GFR > 60 POC Glucose 69 89 Random Glucose 69 Estimat Average Glucose Hemoglobin A1c % Lactic Acid Lactic Acid F/U @ 2Hr Calcium 8.5 Magnesium 1.8 Iron TIBC % Saturation Unsat Iron Binding Total Bilirubin AST ALT Alkaline Phosphatase Troponin I High Sens C-Reactive Protein Total Protein Albumin Vitamin B12 Folate TSH 1.03 Hold Red Top Urine Color Urine Appearance Urine pH Ur Specific Eleele Urine Protein Urine Glucose (UA) Urine Ketones Urine Blood Urine Nitrite Ur Leukocyte Esterase Urine RBC Urine WBC Ur Squamous Epith Cells Urine Bacteria Hyaline Casts Urine Opiates Screen Ur Buprenorphine Scrn Ur Oxycodone Screen Urine Methadone Screen Urine Fentanyl Screen Ur Barbiturates Screen Ur Phencyclidine Scrn Ur Amphetamines Screen U Benzodiazepines Scrn Urine Cocaine Screen U Marijuana (THC) Screen 02/02/25 02/02/25 07:36 11:40 WBC RBC Hgb Hct MCV MCH MCHC RDW Plt Count MPV Immature Gran % (Auto) Neut % (Auto) Lymph % (Auto) [place] % (Auto) Eos % (Auto) Baso % (Auto) Lymph # (Auto) [place] # (Auto) Eos # (Auto) Baso # (Auto) Abs Immat Gran (auto) Absolute Neuts (auto) Absolute Nucleated RBC Nucleated RBC % (auto) Smear Path Review ESR Sodium Potassium Chloride Carbon Dioxide Anion Gap BUN Creatinine Estim Creat Clear Calc Estimated GFR POC Glucose 84 85 Random Glucose Estimat Average Glucose Hemoglobin A1c % Lactic Acid Lactic Acid F/U @ 2Hr Calcium Magnesium Iron TIBC % Saturation Unsat Iron Binding Total Bilirubin AST ALT Alkaline Phosphatase Troponin I High Sens C-Reactive Protein Total Protein Albumin Vitamin B12 Folate TSH Hold Red Top Urine Color Urine Appearance Urine pH Ur Specific Ele[place] Urine Protein Urine Glucose (UA) Urine Ketones Urine Blood Urine Nitrite Ur Leukocyte Esterase Urine RBC Urine WBC Ur Squamous Epith Cells Urine Bacteria Hyaline Casts Urine Opiates Screen Ur Buprenorphine Scrn Ur Oxycodone Screen Urine Methadone Screen Urine Fentanyl Screen Ur Barbiturates Screen Ur Phencyclidine Scrn Ur Amphetamines Screen U Benzodiazepines Scrn Urine Cocaine Screen U Marijuana (THC) Screen Mental Status Exam Mental Status Exam Patient Appearance: Perspiring Level of Consciousness: Drowsy Medications Medications Current Medications Acetaminophen (Acetaminophen 325 Mg Tablet) 975 mg PO Q6H PRN PRN Reason: Pain, Mild 1-3,fever,headache Baclofen (Baclofen 10 Mg Tablet) 10 mg PO BID [facility] Last Admin: 02/02/25 09:32 Dose: 10 mg Calcium Carbonate (Calcium Carbonate 750 Mg Tab.Chew) 750 mg PO Q4H PRN PRN Reason: Heartburn Clonazepam (Clonazepam 1 Mg Tablet) 1 mg PO TID PRN PRN Reason: anxiety/restlessness Clonidine HCl (Clonidine Hcl 0.1 Mg Tablet) 0.1 mg PO TID [facility]; Protocol Last Admin: 02/02/25 09:32 Dose: 0.1 mg Diazepam (Diazepam 10 Mg/2 Ml Cartridge) 5 mg IVPUSH Q3H PRN PRN Reason: Seizures Escitalopram Oxalate (Escitalopram Oxalate 10 Mg Tablet) 10 mg PO DAILY [facility] Last Admin: 02/02/25 09:32 Dose: 10 mg Gabapentin (Gabapentin 600 Mg Tablet) 600 mg PO TID [facility] Last Admin: 02/02/25 09:32 Dose: 600 mg Gabapentin (Gabapentin 300 Mg Capsule) 300 mg PO BEDTIME [facility] Last Admin: 02/01/25 20:43 Dose: Not Given Lactated Ringer's (Lr) 1,000 mls @ 125 mls/hr IVCONT .Q8H [facility] Last Infusion: 02/02/25 12:13 Dose: 0 mls/hr Piperacillin Sod/Tazobactam (Sod 3.375 gm/ Sodium Chloride) 50 mls @ 100 mls/hr IV Q6H [facility] Last Infusion: 02/02/25 06:29 Dose: Infused Magnesium Hydroxide (Milk Of Magnesia 30 Ml Oral.Susp) 30 ml PO DAILY PRN PRN Reason: Constipation Melatonin (Melatonin 3 Mg Tablet) 6 mg PO BEDTIME PRN PRN Reason: Insomnia Mirtazapine (Mirtazapine 7.5 Mg Tablet) 7.5 mg PO BEDTIME [facility] Last Admin: 02/01/25 20:19 Dose: 7.5 mg Nicotine (Nicotine 21 Mg Patch.Td24) 21 mg TRANSDERMA DAILY [facility] Last Admin: 02/02/25 09:32 Dose: 21 mg Ondansetron HCl (Ondansetron Hcl 4 Mg/2 Ml Vial) 4 mg IVPUSH Q8H PRN PRN Reason: Nausea and Vomiting Oxycodone HCl (Oxycodone Hcl Immed Release 5 Mg Tablet) 5 mg PO Q6H PRN PRN Reason: Pain, Severe (Pain Scale 7-10) Quetiapine Fumarate (Quetiapine Fumarate 100 Mg Tablet) 100 mg PO BEDTIME PRN PRN Reason: Insomnia Sodium Chloride (0.9 % Sodium Chloride Flush 3 Ml Syringe) 3 ml IVFLUSH QSHIFT [facility] Last Admin: 02/02/25 09:34 Dose: Not Given Tramadol HCl (Tramadol Hcl 50 Mg Tablet) 50 mg PO Q6H PRN PRN Reason: Pain, Moderate(Pain Scale 4-6) Allergies Allergies Allergy/AdvReac Type Severity Reaction Status Date / Time Pertussis Vaccines Allergy Mild HIVES Verified 01/31/25 23:49 (PERTUSSIS VACCINES) Assessment & Plan Assessment & Plan (1) Opioid use disorder: Status: Acute Code(s): F11.90 - Opioid use, unspecified, uncomplicated Assessment and Plan: methadone dose verified -resume once mentation improves. Monitor for withdrawal somnolence may be in part due to cocaine withdrawal will follow up in AM Total time managing care of this patient today 15____ minutes. [facility] Past Medical History Medical History Bacteremia Arm ulcer MRSA bacteremia Suicidal ideation Depression Cocaine use with cocaine-induced disorder Opiate dependence, continuous Major depressive disorder, recurrent severe without psychotic features Depression Anxiety IVDU (intravenous drug user) Asthma Family History Family History Father Heart disease Surgical History Surgical History History of surgery (10/02/24) Social History Social History Household Members: Unknown / Unable to assess Household Members Other:: mother Housing: Unknown / Unable to assess Housing Other:: lives with parents Are you a primary pet care worker to a significant other at home: No Do you presently have visiting nurse or other home services: No Alcohol intake: unknown Comment: seizure precations Patient Tobacco Use Status: Tobacco use Unknown Tobacco use type: Cigarette Cigarette Packs Per Day: 1 Cigarettes Per Day: 20.0 Years Smoked: 15 Smoked in Last 30 Days: No e-Cigarette/Vaping Use: Never Used Second Hand Smoke Exposure: No Use of substances other than those prescribed or required for medical reasons: Yes Substance Use Type: Crack/Cocaine and Tranquilizers Currently Displaying Signs/Symptoms of Drug Intoxication Withdrawal: No Advance Directives: No Advance Directives Date on File: 01/30/21 Do you have a plan to hurt others: No Plan service: No Current occupational status: unemployed Sexual orientation: Straight/Heterosexual
[2025-02-02] MEDS: methADONE HCl 20 MG/2 ML ORAL.CONC 170 MG PO (14:23)
[2025-02-02 15:42] LABS: Glucose, Whole Blood 105 mg/dL (60-115)
--- NOTE | 2025-02-02 16:52 | HO.SKINPHOTO ---
Location: Category: Stage: Length: Width: Depth: cm Location: Category: Stage: Length: Width: Depth: cm Location: L forearm Category: Stage: Length: Width: Depth: cm Location: Category: Stage: Length: Width: Depth: cm Location: Category: Stage: Length: Width: Depth: cm Location: Category: Stage: Length: Width: Depth: cm R forearm
--- NOTE | 2025-02-02 17:00 | PC.NURSE ---
pt unable to tolerate MRI. attempted 2x, 2nd attempt after medicating with methadone. Dr. sheehan aware.
[2025-02-02] MEDS: 0.9 % Sodium Chloride Flush 3 ML SYRINGE IVFLUSH ×2 (18:15→21:54)
[2025-02-02 21:22] LABS: Glucose, Whole Blood 130 mg/dL (60-115)
--- NOTE | 2025-02-02 23:30 | W.PM.IDCN ---
History of Present Illness Data of Consult Service Date: 02/02/25 Requesting physician: Kal Ruiz Primary Care Provider: Unknown Physician HPI Reason for consult: arm wounds,chronic He presents with seizure. He has no fever or chills. He has xylazine use and chronic necrotic area right arm. He has no fever or chills. He has used xylazine and has chronic necrotic appearing arms Review of Systems Review of Systems: Yes all other systems are reviewed and are negative PMFSH Past Medical History Medical History Bacteremia Arm ulcer MRSA bacteremia Suicidal ideation Depression Cocaine use with cocaine-induced disorder Opiate dependence, continuous Major depressive disorder, recurrent severe without psychotic features Depression Anxiety IVDU (intravenous drug user) Asthma Family History Family History Father Heart disease Surgical History Surgical History History of surgery (10/02/24) Social History Social History Household Members: Unknown / Unable to assess Household Members Other:: mother Housing: Unknown / Unable to assess Housing Other:: lives with parents Are you a primary patient care representative to a significant other at home: No Do you presently have visiting nurse or other home services: No Alcohol intake: unknown Comment: seizure precations Patient Tobacco Use Status: Tobacco use Unknown Tobacco use type: Cigarette Cigarette Packs Per Day: 1 Cigarettes Per Day: 20.0 Years Smoked: 15 Smoked in Last 30 Days: No e-Cigarette/Vaping Use: Never Used Second Hand Smoke Exposure: No Use of substances other than those prescribed or required for medical reasons: Yes Substance Use Type: Crack/Cocaine and Tranquilizers Currently Displaying Signs/Symptoms of Drug Intoxication Withdrawal: No Advance Directives: No Advance Directives Date on File: 01/30/21 Do you have a plan to hurt others: No Plan service: No Current occupational status: unemployed Sexual orientation: Straight/Heterosexual Meds Allergies Allergy/AdvReac Type Severity Reaction Status Date / Time Pertussis Vaccines Allergy Mild HIVES Verified 01/31/25 23:49 (PERTUSSIS VACCINES) Active Medications: Current Medications Acetaminophen (Acetaminophen 325 Mg Tablet) 975 mg PO Q6H PRN PRN Reason: Pain, Mild 1-3,fever,headache Baclofen (Baclofen 10 Mg Tablet) 10 mg PO BID [facility] Last Admin: 02/02/25 21:49 Dose: 10 mg Calcium Carbonate (Calcium Carbonate 750 Mg Tab.Chew) 750 mg PO Q4H PRN PRN Reason: Heartburn Clonazepam (Clonazepam 1 Mg Tablet) 1 mg PO TID PRN PRN Reason: anxiety/restlessness Clonidine HCl (Clonidine Hcl 0.1 Mg Tablet) 0.1 mg PO TID [facility]; Protocol Last Admin: 02/02/25 21:49 Dose: 0.1 mg Diazepam (Diazepam 10 Mg/2 Ml Cartridge) 5 mg IVPUSH Q3H PRN PRN Reason: Seizures Escitalopram Oxalate (Escitalopram Oxalate 10 Mg Tablet) 10 mg PO DAILY [facility] Last Admin: 02/02/25 09:32 Dose: 10 mg Gabapentin (Gabapentin 600 Mg Tablet) 600 mg PO TID [facility] Last Admin: 02/02/25 21:49 Dose: 600 mg Gabapentin (Gabapentin 300 Mg Capsule) 300 mg PO BEDTIME [facility] Last Admin: 02/02/25 21:49 Dose: 300 mg Lactated Ringer's (Lr) 1,000 mls @ 125 mls/hr IVCONT .Q8H [facility] Last Admin: 02/02/25 18:15 Dose: 125 mls/hr Piperacillin Sod/Tazobactam (Sod 3.375 gm/ Sodium Chloride) 50 mls @ 100 mls/hr IV Q6H [facility] Last Infusion: 02/02/25 19:21 Dose: Infused Magnesium Hydroxide (Milk Of Magnesia 30 Ml Oral.Susp) 30 ml PO DAILY PRN PRN Reason: Constipation Melatonin (Melatonin 3 Mg Tablet) 6 mg PO BEDTIME PRN PRN Reason: Insomnia Methadone HCl (Methadone Hcl 20 Mg/2 Ml Oral.Conc) 170 mg PO DAILY [facility] Last Admin: 02/02/25 14:23 Dose: 170 mg Mirtazapine (Mirtazapine 7.5 Mg Tablet) 7.5 mg PO BEDTIME [facility] Last Admin: 02/02/25 21:49 Dose: 7.5 mg Nicotine (Nicotine 21 Mg Patch.Td24) 21 mg TRANSDERMA DAILY [facility] Last Admin: 02/02/25 09:32 Dose: 21 mg Ondansetron HCl (Ondansetron Hcl 4 Mg/2 Ml Vial) 4 mg IVPUSH Q8H PRN PRN Reason: Nausea and Vomiting Last Admin: 02/02/25 13:41 Dose: 4 mg Oxycodone HCl (Oxycodone Hcl Immed Release 5 Mg Tablet) 5 mg PO Q6H PRN PRN Reason: Pain, Severe (Pain Scale 7-10) Quetiapine Fumarate (Quetiapine Fumarate 100 Mg Tablet) 100 mg PO BEDTIME PRN PRN Reason: Insomnia Sodium Chloride (0.9 % Sodium Chloride Flush 3 Ml Syringe) 3 ml IVFLUSH QSHIFT [facility] Last Admin: 02/02/25 21:54 Dose: 3 ml Tramadol HCl (Tramadol Hcl 50 Mg Tablet) 50 mg PO Q6H PRN PRN Reason: Pain, Moderate(Pain Scale 4-6) Home Medications ?Medication ?Instructions ?Recorded ?Confirmed ?Last Taken ?Type methadone 10 mg/mL oral 170 mg PO DAILY 10/13/23 02/02/25 01/31/25 05:57 History concentrate (Methadone Intensol) clonazepam 1 mg tablet 1 mg PO TID 02/28/24 02/01/25 02/27/24 20:00 History clonidine HCl 0.1 mg tablet 0.1 mg PO TID 02/28/24 02/01/25 02/27/24 20:00 History gabapentin 300 mg capsule 300 mg PO BEDTIME 02/28/24 02/01/25 02/26/24 21:00 History gabapentin 600 mg tablet 600 mg PO TID 02/28/24 02/01/25 02/27/24 17:00 History mirtazapine 7.5 mg tablet 7.5 mg PO BEDTIME 02/28/24 02/01/25 02/26/24 21:00 History quetiapine 100 mg tablet 100 - 200 mg PO BEDTIME PRN 02/28/24 02/01/25 Unknown History Insomnia escitalopram oxalate 10 mg tablet 10 mg PO QAM 02/01/25 02/01/25 Unknown History Physical Exam Vital Signs: Vital Signs: Last Vital Signs Temp 97.4 F 02/02/25 23:20 Pulse 68 02/02/25 23:20 Resp 16 02/02/25 23:20 BP 118/62 02/02/25 23:20 Pulse Ox 97 02/02/25 23:20 O2 Del Method Room Air 02/02/25 23:20 BMI result Body Mass Index 30.2 Cardio: Other: 2/6 JANIS Extrem: Other: eschars left arm,some surrounding minor cellulitis Results Labs 02/02/25 06:31 02/02/25 06:31 Labs: Short CBC 02/02/25 Range/Units 06:31 WBC 7.9 (4.8-10.8) X10*3/uL Hgb 7.5 L (14.0-18.0) g/dl Hct 26.0 L (42.0-52.0) % Plt Count TNP BMP 02/02/25 06:31 Sodium 141 Potassium 3.7 Chloride 108 Carbon Dioxide 21 L BUN 8 L Creatinine 0.62 Calcium 8.5 Microbiology Microbiology Results: Microbiology 02/01/25 00:39 Arm Right Gram Stain - Final 02/01/25 00:39 Arm Right Routine Culture - Preliminary Staphylococcus aureus Group G streptococcus 02/01/25 00:39 Arm Left Gram Stain - Final 02/01/25 00:39 Arm Left Routine Culture - Preliminary Staphylococcus aureus Group G streptococcus 01/31/25 00:25 Blood - Venous Blood Culture - Preliminary No growth after 24 hours. 02/01/25 00:08 Blood - Venous Blood Culture - Preliminary No growth after 24 hours. Assessment and Plan (1) Opioid use disorder: Status: Acute (2) Cocaine use disorder: Status: Acute (3) Bacterial skin infection of upper extremity: Status: Acute Plan Chronic wounds upper extremities,longstanding with no recent bacteremia. Superficial swab of skin with no polys not that relevant here. He has no fever or leukocytosis or OM or elevated acute inflammatory markers. This is most likely xylazine toxicity or less likely pyoderma gangrenosum. Would stop Vancomycin and Zosyn if no endocarditis on TTE and no bacteremia and give po Doxycycline for three weeks if no further debridement to be done. Recheck HIV and Hepatitis C.
[2025-02-03 04:00] VITALS: BP 124/68; PULSE 60; RESP 16; TEMP 37; O2SAT 99
[2025-02-03 07:28] LABS: Hematocrit 24.8 % (42.0-52.0); Hemoglobin 7.1 g/dl (14.0-18.0); Mean Corpuscular HGB Conc 28.6 g/dl (31.0-36.0); Mean Corpuscular Hemoglobin 17.2 pg (27.0-33.0); NRBC Abs Auto 0.000 X10*3/uL (0.0-0.012); NRBC Pct Auto 0.0 /100WBC (0.0-0.2); Red Blood Count 4.12 X10*6/uL (4.60-5.80)
[2025-02-03 07:29] LABS: Mean Corpuscular Volume 60.2 fL (80.0-98.0); Platelet Count 291 X10*3/uL (160-400); White Blood Count 6.1 X10*3/uL (4.8-10.8)
[2025-02-03 07:38] LABS: Glucose, Whole Blood 95 mg/dL (60-115)
[2025-02-03 07:42] LABS: Anion Gap 12 (12-20); Blood Urea Nitrogen 10 mg/dL (9-16); Calcium 8.5 mg/dL (8.4-10.2); Carbon Dioxide 22 mmol/L (22-29); Chloride 110 mmol/L (96-108); Creatinine Clr Calc Pharmacy 185.6; Estimated Glomerular Filt Rate > 60; Magnesium 1.8 mg/dL (1.6-2.6); Potassium 3.4 mmol/L (3.3-5.1); Sodium 141 mmol/L (135-145)
[2025-02-03 07:55] VITALS: BP 105/55; PULSE 66; RESP 18; TEMP 36.6; O2SAT 98
--- NOTE | 2025-02-03 09:26 | P.PNIM_ITS ---
Subjective Subjective Date of Service: 02/03/25 Interval History: f/u on seizure no further seizure could not do MRI Physical Exam 2 Vital Signs: Vital Signs: Last Vital Signs Temp 97.9 F 02/03/25 07:55 Pulse 66 02/03/25 07:55 Resp 18 02/03/25 07:55 BP 105/55 L 02/03/25 07:55 Pulse Ox 98 02/03/25 07:55 O2 Del Method Room Air 02/03/25 07:55 BMI result Body Mass Index 30.2 Objective Data Active Medications Acetaminophen (Acetaminophen 325 Mg Tablet) 975 mg PO Q6H PRN PRN Reason: Pain, Mild 1-3,fever,headache Baclofen (Baclofen 10 Mg Tablet) 10 mg PO BID [facility] Last Admin: 02/02/25 21:49 Dose: 10 mg Documented By: DANIKA Calcium Carbonate (Calcium Carbonate 750 Mg Tab.Chew) 750 mg PO Q4H PRN PRN Reason: Heartburn Clonazepam (Clonazepam 1 Mg Tablet) 1 mg PO TID PRN PRN Reason: anxiety/restlessness Clonidine HCl (Clonidine Hcl 0.1 Mg Tablet) 0.1 mg PO TID [facility]; Protocol Last Admin: 02/02/25 21:49 Dose: 0.1 mg Documented By: DANIKA Diazepam (Diazepam 10 Mg/2 Ml Cartridge) 5 mg IVPUSH Q3H PRN PRN Reason: Seizures Escitalopram Oxalate (Escitalopram Oxalate 10 Mg Tablet) 10 mg PO DAILY [facility] Last Admin: 02/02/25 09:32 Dose: 10 mg Documented By: AGUS Gabapentin (Gabapentin 600 Mg Tablet) 600 mg PO TID [facility] Last Admin: 02/02/25 21:49 Dose: 600 mg Documented By: DANIKA Gabapentin (Gabapentin 300 Mg Capsule) 300 mg PO BEDTIME [facility] Last Admin: 02/02/25 21:49 Dose: 300 mg Documented By: DANIKA Lactated Ringer's (Lr) 1,000 mls @ 125 mls/hr IVCONT .Q8H [facility] Last Infusion: 02/03/25 00:55 Dose: Infused Documented By: SIMONA Piperacillin Sod/Tazobactam (Sod 3.375 gm/ Sodium Chloride) 50 mls @ 100 mls/hr IV Q6H [facility] Last Infusion: 02/03/25 06:45 Dose: Infused Documented By: DANIKA Magnesium Hydroxide (Milk Of Magnesia 30 Ml Oral.Susp) 30 ml PO DAILY PRN PRN Reason: Constipation Melatonin (Melatonin 3 Mg Tablet) 6 mg PO BEDTIME PRN PRN Reason: Insomnia Methadone HCl (Methadone Hcl 20 Mg/2 Ml Oral.Conc) 170 mg PO DAILY [facility] Last Admin: 02/02/25 14:23 Dose: 170 mg Documented By: AGUS Co-signed By: HARRIS Mirtazapine (Mirtazapine 7.5 Mg Tablet) 7.5 mg PO BEDTIME [facility] Last Admin: 02/02/25 21:49 Dose: 7.5 mg Documented By: DANIKA Nicotine (Nicotine 21 Mg Patch.Td24) 21 mg TRANSDERMA DAILY [facility] Last Admin: 02/02/25 09:32 Dose: 21 mg Documented By: AGUS Ondansetron HCl (Ondansetron Hcl 4 Mg/2 Ml Vial) 4 mg IVPUSH Q8H PRN PRN Reason: Nausea and Vomiting Last Admin: 02/02/25 13:41 Dose: 4 mg Documented By: AGUS Oxycodone HCl (Oxycodone Hcl Immed Release 5 Mg Tablet) 5 mg PO Q6H PRN PRN Reason: Pain, Severe (Pain Scale 7-10) Quetiapine Fumarate (Quetiapine Fumarate 100 Mg Tablet) 100 mg PO BEDTIME PRN PRN Reason: Insomnia Sodium Chloride (0.9 % Sodium Chloride Flush 3 Ml Syringe) 3 ml IVFLUSH QSHIFT [facility] Last Admin: 02/02/25 21:54 Dose: 3 ml Documented By: DANIKA Tramadol HCl (Tramadol Hcl 50 Mg Tablet) 50 mg PO Q6H PRN PRN Reason: Pain, Moderate(Pain Scale 4-6) Labs 02/03/25 06:52 02/03/25 06:52 Labs: Laboratory Results - last 24 hr 02/01/25 02/02/25 02/02/25 00:07 11:40 15:22 MCV MCH MCHC RDW Plt Count MPV Absolute Nucleated RBC Nucleated RBC % (auto) Anion Gap Estim Creat Clear Calc Estimated GFR POC Glucose 85 105 Random Glucose Calcium Magnesium Prolactin 6.6 02/02/25 02/03/25 02/03/25 21:17 06:52 07:34 MCV 60.2 L MCH 17.2 L MCHC 28.6 L RDW 17.2 H Plt Count 291 MPV 9.8 Absolute Nucleated RBC 0.000 Nucleated RBC % (auto) 0.0 Anion Gap 12 Estim Creat Clear Calc 185.6 Estimated GFR > 60 POC Glucose 130 H 95 Random Glucose 104 Calcium 8.5 Magnesium 1.8 Prolactin Microbiology Microbiology Results: Microbiology 02/01/25 00:39 Gram Stain - Final Arm Right Routine Culture - Final Methicillin Res Staph Aureus Group G streptococcus 02/01/25 00:39 Gram Stain - Final Arm Left Routine Culture - Final Methicillin Res Staph Aureus Group G streptococcus 01/31/25 00:25 Blood Culture - Preliminary Blood - Venous No growth after 48 hours. 02/01/25 00:08 Blood Culture - Preliminary Blood - Venous No growth after 48 hours. 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 seizure, clonic, witnessed - pt denies hx of seizure disorder but has had seizures from drug use, likely drug related, ct ok, eeg pending, not sure if MRI is warranted will discuss with Neuro, PRN diazepam for recurrent seizure, hold antiepileptics for now. Seen by Neuro. likely drug related, for now hold MRI polysubstance abuse/overdose, likely cause of seizure, +Fentanyl and cocaine.. On prescribed methadone, gabaenting chronic upper extremity wounds with superimposed infection in IVDU follow culture continue vanco and zosyn echo for concern of murmur ID, vascular Surgery considering debridement in the OR elevated blood glucose A1c 6.2% monitor POC microcytic anemia hgb 8.0, hct 27.7, mcv 60.2-->Hgb 7.2/25--> 7.5/26 likely chronic disease and chronic external blood loss from wound mild intermittent asthma, no acute exacerbation class 1 obesity BMI 30.2 weight loss encouraged tobacco use disorder nicotine patch smoking cessation encouraged full code VTE prophy: pneumoboots pending anemia eval Quality Stroke Does the patient have a stroke diagnosis?: No VTE Prior VTE?: No VTE Risk Level:: Medical - moderate - high VTE Device Contraindication: N/A - Device Ordered VTE Drug Contraindication: Treatment Not Indicated
[2025-02-03] MEDS: Lactated Ringers 1,000 ML 125 ML IVCONT ×3 (09:47→23:29)
[2025-02-03] MEDS: methADONE HCl 20 MG/2 ML ORAL.CONC 170 MG PO (09:47)
[2025-02-03] MEDS: Nicotine 21 MG PATCH.TD24 TRANSDERMA (09:58)
[2025-02-03] MEDS: 0.9 % Sodium Chloride Flush 3 ML SYRINGE IVFLUSH ×2 (09:59→21:13)
[2025-02-03 11:24] LABS: Glucose, Whole Blood 208 mg/dL (60-115)
[2025-02-03 11:41] VITALS: BP 117/64; PULSE 63; RESP 18; TEMP 36.8; O2SAT 98
--- NOTE | 2025-02-03 13:51 | HO.SKINPHOTO ---
Location: R forearm Location: L forearm
[2025-02-03 15:31] LABS: Glucose, Whole Blood 56 mg/dL (60-115)
[2025-02-03 15:44] VITALS: BP 110/57; PULSE 75; RESP 18; TEMP 37.1; O2SAT 94
[2025-02-03 16:01] LABS: Glucose, Whole Blood 97 mg/dL (60-115)
[2025-02-03 19:31] VITALS: BP 111/64; PULSE 79; RESP 17; TEMP 36.8; O2SAT 97
[2025-02-03 21:00] LABS: Glucose, Whole Blood 150 mg/dL (60-115)
[2025-02-03 23:16] VITALS: BP 101/65; PULSE 69; RESP 16; TEMP 36.7; O2SAT 95
[2025-02-04 03:06] VITALS: BP 92/47; PULSE 72; RESP 16; TEMP 36.6; O2SAT 98
[2025-02-04] MEDS: Lactated Ringers 1,000 ML 125 ML IVCONT (05:06)
[2025-02-04 07:40] LABS: Glucose, Whole Blood 88 mg/dL (60-115)
[2025-02-04 07:52] VITALS: BP 108/65; PULSE 62; RESP 18; TEMP 36.6; O2SAT 97
[2025-02-04] MEDS: methADONE HCl 20 MG/2 ML ORAL.CONC 170 MG PO (08:13)
[2025-02-04] MEDS: Nicotine 21 MG PATCH.TD24 TRANSDERMA (08:17)
[2025-02-04] MEDS: 0.9 % Sodium Chloride Flush 3 ML SYRINGE IVFLUSH ×3 (08:18→22:20)
--- NOTE | 2025-02-04 08:30 | PM.PNGS ---
Subjective Subjective Date of Service: 02/04/25 Interval history: Feels a little better this morning. Some pain at left arm. Physical Exam Vital Signs: Vital Signs: Last Vital Signs Temp 97.9 F 02/04/25 07:52 Pulse 62 02/04/25 07:52 Resp 18 02/04/25 07:52 BP 108/65 02/04/25 07:52 Pulse Ox 97 02/04/25 07:52 O2 Del Method Room Air 02/04/25 07:52 BMI result Body Mass Index 30.2 Const: General: comfortable, no acute distress and alert Orientation/consciousness: patient oriented x3 Resp: Effort & Inspection: normal respiratory effort Skin: Other: b/l upper extremities with dressings intact Neuro: General: patient oriented x3 and moves all extremities Objective Data Active Medications Acetaminophen (Acetaminophen 325 Mg Tablet) 975 mg PO Q6H PRN PRN Reason: Pain, Mild 1-3,fever,headache Baclofen (Baclofen 10 Mg Tablet) 10 mg PO BID [facility] Last Admin: 02/04/25 08:16 Dose: 10 mg Documented By: [place] Calcium Carbonate (Calcium Carbonate 750 Mg Tab.Chew) 750 mg PO Q4H PRN PRN Reason: Heartburn Ceftriaxone Sodium (Ceftriaxone Sodium 1 Gm Vial) 1 gm IVPUSH Q24H [facility] Last Admin: 02/03/25 09:59 Dose: 1 gm Documented By: AGUS Clonazepam (Clonazepam 1 Mg Tablet) 1 mg PO TID PRN PRN Reason: anxiety/restlessness Clonidine HCl (Clonidine Hcl 0.1 Mg Tablet) 0.1 mg PO TID [facility]; Protocol Last Admin: 02/04/25 08:16 Dose: 0.1 mg Documented By: [place] Diazepam (Diazepam 10 Mg/2 Ml Cartridge) 5 mg IVPUSH Q3H PRN PRN Reason: Seizures Escitalopram Oxalate (Escitalopram Oxalate 10 Mg Tablet) 10 mg PO DAILY [facility] Last Admin: 02/04/25 08:17 Dose: 10 mg Documented By: [place] Gabapentin (Gabapentin 600 Mg Tablet) 600 mg PO TID [facility] Last Admin: 02/04/25 08:17 Dose: 600 mg Documented By: [place] Gabapentin (Gabapentin 300 Mg Capsule) 300 mg PO BEDTIME [facility] Last Admin: 02/03/25 21:07 Dose: 300 mg Documented By: STARLA Doxycycline Hyclate 100 mg/ (Sodium Chloride) 250 mls @ 166.67 mls/hr IV Q12H [facility] Last Infusion: 02/03/25 22:38 Dose: Infused Documented By: STARLA Magnesium Hydroxide (Milk Of Magnesia 30 Ml Oral.Susp) 30 ml PO DAILY PRN PRN Reason: Constipation Melatonin (Melatonin 3 Mg Tablet) 6 mg PO BEDTIME PRN PRN Reason: Insomnia Methadone HCl (Methadone Hcl 20 Mg/2 Ml Oral.Conc) 170 mg PO DAILY [facility] Last Admin: 02/04/25 08:13 Dose: 170 mg Documented By: OH Co-signed By: GABBY Mirtazapine (Mirtazapine 7.5 Mg Tablet) 7.5 mg PO BEDTIME [facility] Last Admin: 02/03/25 21:07 Dose: 7.5 mg Documented By: STARLA Nicotine (Nicotine 21 Mg Patch.Td24) 21 mg TRANSDERMA DAILY [facility] Last Admin: 02/04/25 08:17 Dose: 21 mg Documented By: OH Ondansetron HCl (Ondansetron Hcl 4 Mg/2 Ml Vial) 4 mg IVPUSH Q8H PRN PRN Reason: Nausea and Vomiting Last Admin: 02/02/25 13:41 Dose: 4 mg Documented By: AGUS Oxycodone HCl (Oxycodone Hcl Immed Release 5 Mg Tablet) 5 mg PO Q6H PRN PRN Reason: Pain, Severe (Pain Scale 7-10) Quetiapine Fumarate (Quetiapine Fumarate 100 Mg Tablet) 100 mg PO BEDTIME PRN PRN Reason: Insomnia Sodium Chloride (0.9 % Sodium Chloride Flush 3 Ml Syringe) 3 ml IVFLUSH QSHIFT [facility] Last Admin: 02/04/25 08:18 Dose: 3 ml Documented By: OH Tramadol HCl (Tramadol Hcl 50 Mg Tablet) 50 mg PO Q6H PRN PRN Reason: Pain, Moderate(Pain Scale 4-6) Labs 02/03/25 06:52 02/03/25 06:52 Labs: Laboratory Results - last 24 hr 02/03/25 02/03/25 02/03/25 11:07 15:08 15:57 POC Glucose 208 H 56 L* 97 02/03/25 02/04/25 20:49 07:37 POC Glucose 150 H 88 Microbiology Microbiology Results: Microbiology 02/01/25 00:39 Gram Stain - Final Arm Right Routine Culture - Final Methicillin Res Staph Aureus Group G streptococcus 02/01/25 00:39 Gram Stain - Final Arm Left Routine Culture - Final Methicillin Res Staph Aureus Group G streptococcus Procedures Date of Service Date of Service: 02/04/25 Progress Note: A&P Assessment and plan (1) Bacterial skin infection of upper extremity: Status: Acute (2) Arm ulcer: Status: Acute Plan He appears more alert this morning. Will plan for debridement of b/l UE ulcers in OR tomorrow, he has been tenatively added onto the schedule. Cont daily dressing changes with nonadherent dressing with xeroformor adaptic/telfa followed by abd dressings and flor wrap. He is comfortable with plan. Time Spent With Patient Time: Total time managing care of this patient today ____ minutes. Quality Stroke Does the patient have a stroke diagnosis?: No VTE Prior VTE?: No VTE Risk Level:: Medical - moderate - high VTE Device Contraindication: N/A - Device Ordered VTE Drug Contraindication: Treatment Not Indicated
--- NOTE | 2025-02-04 10:20 | MHC.CM.PN ---
Per ROUNDS discussion, Patient is not yet medically cleared for dc today (debridement tomorrow); home is the goal (no PCP) and CM will continue to follow.
--- NOTE | 2025-02-04 11:40 | P.CONGS_ITS ---
History of Present Illness Consult details Consult date: 02/04/25 Reason for consult: other Narrative: Upper extremity ulcers. Very complex 34-year-old gentleman with history of IV drug abuse presented after having a seizure at home. He had reportedly used heroin prior to that. He has done multiple upper extremity IV injections. He has now developed several ulcerations throughout the upper extremity. He has been consulted by General surgery for these upper extremity ulcerations. Request for vascular surgery consult for any vascular compromise. Review of Systems 2 Review of Systems: Yes all other systems are reviewed and are negative Constitutional: Constitutional: Reports no additional constitutional complaints ENT: Reports Normal hearing present Cardiovascular: Cardiovascular: Denies chest pain, Denies chest pain at rest, Denies chest pain with activity and Denies pedal edema Respiratory: Respiratory: Denies cough Gastrointestinal: Gastrointestinal: Denies abdominal pain Musculoskeletal: Musculoskeletal: Denies abnormal gait, Denies muscle cramps and Denies radiating pain into limb Integumentary/Breasts: Skin/Breast: Denies skin ulcer and Denies wounds Neurologic: Reports Normal hearing present and Denies abnormal gait Psychiatric: Psychiatric: Reports no additional psychiatric complaints PMFSH Past Medical History Medical History Bacteremia Arm ulcer MRSA bacteremia Suicidal ideation Depression Cocaine use with cocaine-induced disorder Opiate dependence, continuous Major depressive disorder, recurrent severe without psychotic features Depression Anxiety IVDU (intravenous drug user) Asthma Family History Family History Father Heart disease Surgical History Surgical History History of surgery (10/02/24) Social History Social History Household Members: Unknown / Unable to assess Household Members Other:: mother Housing: Unknown / Unable to assess Housing Other:: lives with parents Are you a primary senior caregiver to a significant other at home: No Do you presently have visiting nurse or other home services: No Alcohol intake: unknown Comment: seizure precations Patient Tobacco Use Status: Tobacco use Unknown Tobacco use type: Cigarette Cigarette Packs Per Day: 1 Cigarettes Per Day: 20.0 Years Smoked: 15 Smoked in Last 30 Days: No e-Cigarette/Vaping Use: Never Used Second Hand Smoke Exposure: No Use of substances other than those prescribed or required for medical reasons: Yes Substance Use Type: Crack/Cocaine and Tranquilizers Currently Displaying Signs/Symptoms of Drug Intoxication Withdrawal: No Advance Directives: No Advance Directives Date on File: 01/30/21 Do you have a plan to hurt others: No Plan service: No Current occupational status: unemployed Sexual orientation: Straight/Heterosexual Meds Allergies Allergy/AdvReac Type Severity Reaction Status Date / Time Pertussis Vaccines Allergy Mild HIVES Verified 01/31/25 23:49 (PERTUSSIS VACCINES) Active Medications: Current Medications Acetaminophen (Acetaminophen 325 Mg Tablet) 975 mg PO Q6H PRN PRN Reason: Pain, Mild 1-3,fever,headache Baclofen (Baclofen 10 Mg Tablet) 10 mg PO BID [facility] Last Admin: 02/04/25 08:16 Dose: 10 mg Calcium Carbonate (Calcium Carbonate 750 Mg Tab.Chew) 750 mg PO Q4H PRN PRN Reason: Heartburn Ceftriaxone Sodium (Ceftriaxone Sodium 1 Gm Vial) 1 gm IVPUSH Q24H [facility] Last Admin: 02/03/25 09:59 Dose: 1 gm Clonazepam (Clonazepam 1 Mg Tablet) 1 mg PO TID PRN PRN Reason: anxiety/restlessness Clonidine HCl (Clonidine Hcl 0.1 Mg Tablet) 0.1 mg PO TID [facility]; Protocol Last Admin: 02/04/25 08:16 Dose: 0.1 mg Diazepam (Diazepam 10 Mg/2 Ml Cartridge) 5 mg IVPUSH Q3H PRN PRN Reason: Seizures Escitalopram Oxalate (Escitalopram Oxalate 10 Mg Tablet) 10 mg PO DAILY [facility] Last Admin: 02/04/25 08:17 Dose: 10 mg Gabapentin (Gabapentin 600 Mg Tablet) 600 mg PO TID [facility] Last Admin: 02/04/25 08:17 Dose: 600 mg Gabapentin (Gabapentin 300 Mg Capsule) 300 mg PO BEDTIME [facility] Last Admin: 02/03/25 21:07 Dose: 300 mg Doxycycline Hyclate 100 mg/ (Sodium Chloride) 250 mls @ 166.67 mls/hr IV Q12H [facility] Last Admin: 02/04/25 09:42 Dose: 166.67 mls/hr Magnesium Hydroxide (Milk Of Magnesia 30 Ml Oral.Susp) 30 ml PO DAILY PRN PRN Reason: Constipation Melatonin (Melatonin 3 Mg Tablet) 6 mg PO BEDTIME PRN PRN Reason: Insomnia Methadone HCl (Methadone Hcl 20 Mg/2 Ml Oral.Conc) 170 mg PO DAILY [facility] Last Admin: 02/04/25 08:13 Dose: 170 mg Mirtazapine (Mirtazapine 7.5 Mg Tablet) 7.5 mg PO BEDTIME [facility] Last Admin: 02/03/25 21:07 Dose: 7.5 mg Nicotine (Nicotine 21 Mg Patch.Td24) 21 mg TRANSDERMA DAILY [facility] Last Admin: 02/04/25 08:17 Dose: 21 mg Ondansetron HCl (Ondansetron Hcl 4 Mg/2 Ml Vial) 4 mg IVPUSH Q8H PRN PRN Reason: Nausea and Vomiting Last Admin: 02/02/25 13:41 Dose: 4 mg Oxycodone HCl (Oxycodone Hcl Immed Release 5 Mg Tablet) 5 mg PO Q6H PRN PRN Reason: Pain, Severe (Pain Scale 7-10) Quetiapine Fumarate (Quetiapine Fumarate 100 Mg Tablet) 100 mg PO BEDTIME PRN PRN Reason: Insomnia Sodium Chloride (0.9 % Sodium Chloride Flush 3 Ml Syringe) 3 ml IVFLUSH QSHIFT [facility] Last Admin: 02/04/25 08:18 Dose: 3 ml Tramadol HCl (Tramadol Hcl 50 Mg Tablet) 50 mg PO Q6H PRN PRN Reason: Pain, Moderate(Pain Scale 4-6) Home Medications ?Medication ?Instructions ?Recorded ?Confirmed ?Last Taken ?Type methadone 10 mg/mL oral 170 mg PO DAILY 10/13/2312/2301/31/25 05:57 History concentrate (Methadone Intensol) clonazepam 1 mg tablet 1 mg PO TID 02/28/24 5 02/27/24 20:00 History clonidine HCl 0.1 mg tablet 0.1 mg PO TID 02/28/2411/2302/27/24 20:00 History gabapentin 300 mg capsule 300 mg PO BEDTIME 02/28/24 0 02/01/25 02/26/24 21:00 History gabapentin 600 mg tablet 600 mg PO TID 02/28/2402/0102/27/24 17:00 History mirtazapine 7.5 mg tablet 7.5 mg PO BEDTIME 02/28/24 0 02/01/25 02/26/24 21:00 History quetiapine 100 mg tablet 100 - 200 mg PO BEDTIME PRN 02/28/24 02/01/25 Unknown History Insomnia escitalopram oxalate 10 mg tablet 10 mg PO QAM 5 02/01/25 Unknown History Physical Exam 2 Vital Signs: Vital Signs: Last Vital Signs Temp 97.9 F 02/04/25 07:52 Pulse 62 02/04/25 07:52 Resp 18 02/04/25 07:52 BP 108/65 02/04/25 07:52 Pulse Ox 97 02/04/25 07:52 O2 Del Method Room Air 02/04/25 07:52 BMI result Body Mass Index 30.2 Const: General: cooperative, healthy appearing and comfortable O rientation/consciousness: oriented to person, oriented to place and oriented to time HEENT: Head: Yes normal to inspection Neck: Neck: Yes normal visual inspection Carotids: no bruits Chest: Chest palpation & inspection: normal inspection of the chest Resp: Effort & Inspection: normal respiratory effort and able to speak in complete sentences Auscultation: clear to auscultation bilaterally, no crackles, no rales, no rhonchi and no wheezes Cardio: Other: Patient has palpable brachial radial ulnar pulses bilaterally. Rate: regular rate Rhythm: regular rhythm Heart sounds: S1 normal heart sound present and S2 normal heart sound present Bruits: no carotid bruits Peripheral pulses: Peripheral pulses 2+ throughout GI: Inspection: Yes normal to inspection Skin: Wounds: no wounds Hair: normal Neuro: General: oriented to person, oriented to place and oriented to time Cranial nerves: Yes CN's II-XII intact bilaterally and Yes Normal hearing present Cognition (Neuro): normal cognition Motor exam (neuro): 5/5 motor strength present throughout Extrem: Other: venous exam: No significant superficial varicosities or spider telangiectasias, minimal edema General: No clubbing, No cyanosis and No edema Psych: Appearance: grossly normal Mental Status: mental status grossly normal Speech and movement: Normal speech and movement present Results Labs 02/03/25 06:52 02/03/25 06:52 Labs: Abnormal lab results 02/03/25 02/03/25 Range/Units 15:08 20:49 POC Glucose 56 L* 150 H (60-115) mg/dL Urine 07/04/25 Range/Units 04:21 Urine Color Yellow Urine Appearance Clear Urine pH 5.5 (5.0-9.0) Ur Specific [place] >= 1.030 H (1.005-1.025) Urine Protein Negative (Neg-Trace) mg/dL Urine Glucose (UA) Negative (Negative) mg/dL All other labs normal. Assessment and Plan (1) Arm ulcer: Qualifiers: Non-pressure ulcer stage: unspecified non-pressure ulcer stage Q ualified Code(s): L98.499 - Non-pressure chronic ulcer of skin of other sites with unspecified severity Status: Acute Plan In short patient has upper extremity ulcers skin has necrosis with surrounding erythema. [place] with General surgery about debridement and local wound care. Antibiotics as needed. In addition a sincere conversation needs to be had with the patient about risk factor modification and continued behavior may be life threatening. From a vascular standpoint patient has adequate arterial supply to heal wounds. We will follow on an as-needed basis. Thank you for allowing us to assist in his care. Procedures Date of Service Date of Service: 02/04/25
[2025-02-04 11:43] LABS: Glucose, Whole Blood 213 mg/dL (60-115)
[2025-02-04 12:00] VITALS: BP 100/53; PULSE 64; RESP 18; TEMP 36.5; O2SAT 98
[2025-02-04] MEDS: oxyCODONE HCl Immed Release 5 MG TABLET PO (15:03)
[2025-02-04 15:23] LABS: Glucose, Whole Blood 103 mg/dL (60-115)
[2025-02-04 15:45] VITALS: BP 103/61; PULSE 68; RESP 18; TEMP 37.1; O2SAT 97
[2025-02-04 17:19] VITALS: BP 108/60; PULSE 63; RESP 16; TEMP 36.9; O2SAT 98
[2025-02-04 20:51] LABS: Glucose, Whole Blood 129 mg/dL (60-115)
[2025-02-04 23:10] VITALS: BP 103/59; PULSE 71; RESP 16; TEMP 36.5; O2SAT 96
[2025-02-05] VITALS (11 sets, daily range): BP systolic 97–145; BP diastolic 52–84; PULSE 62–125; RESP 5–16; TEMP 36.1–36.7; O2SAT 90–98
[2025-02-05 07:39] LABS: Glucose, Whole Blood 101 mg/dL (60-115)
--- NOTE | 2025-02-05 08:06 | P.PNGS_ITS ---
Subjective Subjective Date of Service: 02/05/25 Interval history: Patient awake and alert this morning, ready for surgery today. Physical Exam 2 Vital Signs: Vital Signs: Last Vital Signs Temp 97.8 F 02/05/25 07:34 Pulse 62 02/05/25 07:34 Resp 14 02/05/25 07:34 BP 112/63 02/05/25 07:34 Pulse Ox 93 02/05/25 07:34 O2 Del Method Room Air 02/05/25 07:34 BMI result Body Mass Index 30.2 Const: General: comfortable Nutritional Appearance: well nourished O rientation/consciousness: patient oriented x3 Resp: Effort & Inspection: normal respiratory effort, no audible wheezes, no cough and no respiratory distress Neuro: General: patient oriented x3 Extrem: Other: Upper extremity wounds covered with clean dressings, no discharge noted. No edema noted at the hands. Objective Data Active Medications Acetaminophen (Acetaminophen 325 Mg Tablet) 975 mg PO Q6H PRN PRN Reason: Pain, Mild 1-3,fever,headache Baclofen (Baclofen 10 Mg Tablet) 10 mg PO BID [facility] Last Admin: 02/04/25 22:20 Dose: 10 mg Documented By: VIKAS Calcium Carbonate (Calcium Carbonate 750 Mg Tab.Chew) 750 mg PO Q4H PRN PRN Reason: Heartburn Ceftriaxone Sodium (Ceftriaxone Sodium 1 Gm Vial) 1 gm IVPUSH Q24H [facility] Last Admin: 02/04/25 12:08 Dose: 1 gm Documented By: OH Clonazepam (Clonazepam 1 Mg Tablet) 1 mg PO TID PRN PRN Reason: anxiety/restlessness Last Admin: 02/04/25 22:37 Dose: 1 mg Documented By: VIKAS Clonidine HCl (Clonidine Hcl 0.1 Mg Tablet) 0.1 mg PO TID [facility]; Protocol Last Admin: 02/04/25 22:19 Dose: 0.1 mg Documented By: VIKAS Diazepam (Diazepam 10 Mg/2 Ml Cartridge) 5 mg IVPUSH Q3H PRN PRN Reason: Seizures Escitalopram Oxalate (Escitalopram Oxalate 10 Mg Tablet) 10 mg PO DAILY [facility] Last Admin: 02/04/25 08:17 Dose: 10 mg Documented By: OH Gabapentin (Gabapentin 600 Mg Tablet) 600 mg PO TID [facility] Last Admin: 02/04/25 22:19 Dose: 600 mg Documented By: VIKAS Gabapentin (Gabapentin 300 Mg Capsule) 300 mg PO BEDTIME [facility] Last Admin: 02/04/25 22:20 Dose: 300 mg Documented By: VIKAS Doxycycline Hyclate 100 mg/ (Sodium Chloride) 250 mls @ 166.67 mls/hr IV Q12H [facility] Last Infusion: 02/05/25 00:04 Dose: Infused Documented By: VIKAS Magnesium Hydroxide (Milk Of Magnesia 30 Ml Oral.Susp) 30 ml PO DAILY PRN PRN Reason: Constipation Melatonin (Melatonin 3 Mg Tablet) 6 mg PO BEDTIME PRN PRN Reason: Insomnia Methadone HCl (Methadone Hcl 20 Mg/2 Ml Oral.Conc) 170 mg PO DAILY [facility] Last Admin: 02/04/25 08:13 Dose: 170 mg Documented By: OH Co-signed By: GABBY Mirtazapine (Mirtazapine 7.5 Mg Tablet) 7.5 mg PO BEDTIME [facility] Last Admin: 02/04/25 22:20 Dose: 7.5 mg Documented By: VIKAS Nicotine (Nicotine 21 Mg Patch.Td24) 21 mg TRANSDERMA DAILY [facility] Last Admin: 02/04/25 08:17 Dose: 21 mg Documented By: OH Nicotine Polacrilex (Nicotine Polacrilex 2 Mg Gum) 2 mg BUCCAL Q2H PRN PRN Reason: Nicotine Cravings Last Admin: 02/04/25 18:51 Dose: 2 mg Documented By: LARS Ondansetron HCl (Ondansetron Hcl 4 Mg/2 Ml Vial) 4 mg IVPUSH Q8H PRN PRN Reason: Nausea and Vomiting Last Admin: 02/02/25 13:41 Dose: 4 mg Documented By: SHAINACIKYMBERLY Oxycodone HCl (Oxycodone Hcl Immed Release 5 Mg Tablet) 5 mg PO Q6H PRN PRN Reason: Pain, Severe (Pain Scale 7-10) Last Admin: 02/04/25 15:03 Dose: 5 mg Documented By: OH Quetiapine Fumarate (Quetiapine Fumarate 100 Mg Tablet) 100 mg PO BEDTIME PRN PRN Reason: Insomnia Sodium Chloride (0.9 % Sodium Chloride Flush 3 Ml Syringe) 3 ml IVFLUSH QSHIFT [facility] Last Admin: 02/04/25 22:20 Dose: 3 ml Documented By: VIKAS Tramadol HCl (Tramadol Hcl 50 Mg Tablet) 50 mg PO Q6H PRN PRN Reason: Pain, Moderate(Pain Scale 4-6) Labs 02/03/25 06:52 02/03/25 06:52 Labs: Laboratory Results - last 24 hr 02/04/25 02/04/25 02/04/25 11:20 15:09 20:42 POC Glucose 213 H 103 129 H 02/05/25 07:34 POC Glucose 101 Procedures Date of Service Date of Service: 02/05/25 Progress Note: A&P Assessment and plan (1) Soft tissue infection: Status: Acute (2) Bacterial skin infection of upper extremity: Status: Acute Plan 34-year-old male patient with history of IV drug use with bilateral upper extremity ulceration. I reviewed the procedure, risks, and alternatives of debridement of the bilateral arm ulcers and he consents to the surgery. Time Spent With Patient Time: Total time managing care of this patient today ____ minutes. Quality Stroke Does the patient have a stroke diagnosis?: No VTE Prior VTE?: No VTE Risk Level:: Medical - moderate - high VTE Device Contraindication: N/A - Device Ordered VTE Drug Contraindication: Treatment Not Indicated
--- NOTE | 2025-02-05 08:14 | MHC.SHP ---
Pre-Procedural Eval Section A - 24 Hr Update-Section A only Date of Service: 02/05/25 The patient is an INPATIENT: No Changes since office visit: Yes Patient answered all questions; No Cold of Flu in the past 2 weeks, No New Medical Problems and No Changes in Medication The patient has been examined within 24 hours of the surgical procedure. The History & Physical has been completed within 30 days and I have reviewed it.: Yes Section B - Complete if H&P > 30 days Chief Complaint: seizure Allergies: Allergies Allergy/AdvReac Type Severity Reaction Status Date / Time Pertussis Vaccines Allergy Mild HIVES Verified 01/31/25 23:49 (PERTUSSIS VACCINES) Plan Diagnosis/Plan: Unchanged I have reviewed the history and physical and performed a pertinent physical examination on my patient. No changes have occurred unless specified. Time Spent With Patient Time: Total time managing care of this patient today ____ minutes.
[2025-02-05] MEDS: Nicotine 21 MG PATCH.TD24 TRANSDERMA (08:29)
[2025-02-05] MEDS: 0.9 % Sodium Chloride Flush 3 ML SYRINGE IVFLUSH ×3 (08:30→22:02)
[2025-02-05] MEDS: methADONE HCl 20 MG/2 ML ORAL.CONC 170 MG PO (08:33)
--- NOTE | 2025-02-05 09:23 | HO.PM.IMPN ---
Subjective Subjective Date of Service: 02/05/25 Interval History: f/u on seizure no further seizure could not do MRI Physical Exam Vital Signs: Vital Signs: Last Vital Signs Temp 97.8 F 02/05/25 07:34 Pulse 62 02/05/25 07:34 Resp 14 02/05/25 07:34 BP 112/63 02/05/25 07:34 Pulse Ox 93 02/05/25 07:34 O2 Del Method Room Air 02/05/25 07:34 BMI result Body Mass Index 30.2 General: AO X 3, no acute distress Resp: CTA bilateral CVS: S1,S2,RRR GI: +BS, NT, no distention Skin: see earlier pictures for wounds on arms Neuro: motor grossly intact Psych: appropriate affect Objective Data Active Medications Acetaminophen (Acetaminophen 325 Mg Tablet) 975 mg PO Q6H PRN PRN Reason: Pain, Mild 1-3,fever,headache Baclofen (Baclofen 10 Mg Tablet) 10 mg PO BID [facility] Last Admin: 02/05/25 08:29 Dose: 10 mg Documented By: LARS Calcium Carbonate (Calcium Carbonate 750 Mg Tab.Chew) 750 mg PO Q4H PRN PRN Reason: Heartburn Ceftriaxone Sodium (Ceftriaxone Sodium 1 Gm Vial) 1 gm IVPUSH Q24H [facility] Last Admin: 02/04/25 12:08 Dose: 1 gm Documented By: OH Clonazepam (Clonazepam 1 Mg Tablet) 1 mg PO TID PRN PRN Reason: anxiety/restlessness Last Admin: 02/05/25 08:39 Dose: 1 mg Documented By: LARS Clonidine HCl (Clonidine Hcl 0.1 Mg Tablet) 0.1 mg PO TID [facility]; Protocol Last Admin: 02/05/25 08:28 Dose: 0.1 mg Documented By: LARS Diazepam (Diazepam 10 Mg/2 Ml Cartridge) 5 mg IVPUSH Q3H PRN PRN Reason: Seizures Escitalopram Oxalate (Escitalopram Oxalate 10 Mg Tablet) 10 mg PO DAILY [facility] Last Admin: 02/05/25 08:29 Dose: 10 mg Documented By: LARS Gabapentin (Gabapentin 600 Mg Tablet) 600 mg PO TID [facility] Last Admin: 02/05/25 08:29 Dose: 600 mg Documented By: LARS Gabapentin (Gabapentin 300 Mg Capsule) 300 mg PO BEDTIME [facility] Last Admin: 02/04/25 22:20 Dose: 300 mg Documented By: VIKAS Doxycycline Hyclate 100 mg/ (Sodium Chloride) 250 mls @ 166.67 mls/hr IV Q12H [facility] Last Admin: 02/05/25 09:15 Dose: 166.67 mls/hr Documented By: LARS Magnesium Hydroxide (Milk Of Magnesia 30 Ml Oral.Susp) 30 ml PO DAILY PRN PRN Reason: Constipation Melatonin (Melatonin 3 Mg Tablet) 6 mg PO BEDTIME PRN PRN Reason: Insomnia Methadone HCl (Methadone Hcl 20 Mg/2 Ml Oral.Conc) 170 mg PO DAILY [facility] Last Admin: 02/05/25 08:33 Dose: 170 mg Documented By: LARS Co-signed By: CASSIUS Mirtazapine (Mirtazapine 7.5 Mg Tablet) 7.5 mg PO BEDTIME [facility] Last Admin: 02/04/25 22:20 Dose: 7.5 mg Documented By: VIKAS Nicotine (Nicotine 21 Mg Patch.Td24) 21 mg TRANSDERMA DAILY [facility] Last Admin: 02/05/25 08:29 Dose: 21 mg Documented By: LARS Nicotine Polacrilex (Nicotine Polacrilex 2 Mg Gum) 2 mg BUCCAL Q2H PRN PRN Reason: Nicotine Cravings Last Admin: 02/04/25 18:51 Dose: 2 mg Documented By: LARS Ondansetron HCl (Ondansetron Hcl 4 Mg/2 Ml Vial) 4 mg IVPUSH Q8H PRN PRN Reason: Nausea and Vomiting Last Admin: 02/02/25 13:41 Dose: 4 mg Documented By: AGUS Oxycodone HCl (Oxycodone Hcl Immed Release 5 Mg Tablet) 5 mg PO Q6H PRN PRN Reason: Pain, Severe (Pain Scale 7-10) Last Admin: 02/04/25 15:03 Dose: 5 mg Documented By: OH Quetiapine Fumarate (Quetiapine Fumarate 100 Mg Tablet) 100 mg PO BEDTIME PRN PRN Reason: Insomnia Sodium Chloride (0.9 % Sodium Chloride Flush 3 Ml Syringe) 3 ml IVFLUSH QSHIFT [facility] Last Admin: 02/05/25 08:30 Dose: 3 ml Documented By: HO.BEIT Tramadol HCl (Tramadol Hcl 50 Mg Tablet) 50 mg PO Q6H PRN PRN Reason: Pain, Moderate(Pain Scale 4-6) Labs 02/03/25 06:52 02/03/25 06:52 Labs: Laboratory Results - last 24 hr 02/04/25 02/04/25 02/04/25 11:20 15:09 20:42 POC Glucose 213 H 103 129 H 02/05/25 07:34 POC Glucose 101 Microbiology Microbiology Results: Microbiology 02/01/25 00:39 Gram Stain - Final Arm Right Routine Culture - Final Methicillin Res Staph Aureus Group G streptococcus 02/01/25 00:39 Gram Stain - Final Arm Left Routine Culture - Final Methicillin Res Staph Aureus Group G streptococcus 01/31/25 00:25 Blood Culture - Preliminary Blood - Venous No growth after 48 hours. 02/01/25 00:08 Blood Culture - Preliminary Blood - Venous No growth after 48 hours. 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 seizure, clonic, witnessed - pt denies hx of seizure disorder but has had seizures from drug use, likely drug related, ct ok, eeg pending, not sure if MRI is warranted will discuss with Neuro, PRN diazepam for recurrent seizure, hold antiepileptics for now. Seen by Neuro. likely drug related, for now hold MRI polysubstance abuse/overdose, likely cause of seizure, +Fentanyl and cocaine.. On prescribed methadone, gabaenting chronic upper extremity wounds with superimposed infection in IVDU wound culture MRSA and strep was on vanco and zosyn, now ceftriaxone and doxy echo no vegetations ID, vascular for debridment in OR today ` elevated blood glucose A1c 6.2% monitor POC microcytic anemia hgb 8.0, hct 27.7, mcv 60.2-->Hgb 7.2/25--> 7.5/26 likely chronic disease and chronic external blood loss from wound mild intermittent asthma, no acute exacerbation class 1 obesity BMI 30.2 weight loss encouraged tobacco use disorder nicotine patch smoking cessation encouraged full code VTE prophy: pneumoboots pending anemia eval Quality Stroke Does the patient have a stroke diagnosis?: No VTE Prior VTE?: No VTE Risk Level:: Medical - moderate - high VTE Device Contraindication: N/A - Device Ordered VTE Drug Contraindication: Treatment Not Indicated
--- NOTE | 2025-02-05 10:49 | PC.NURSE ---
H&H today was 7.1, 24.8. made anesthesia aware. reviewed chart and ok'd to proceed per Dr. Peoples
[2025-02-05] MEDS: Albuterol Sulfate (0.083%) 2.5 MG/3 ML VIAL.NEB INHALE (11:15)
[2025-02-05] MEDS: Lactated Ringers 500 ML 20 ML IVCONT (11:36)
--- NOTE | 2025-02-05 12:08 | P.CONAN_ITS ---
HPI - Anesthesia Eval Consult details Narrative: arm debridement PMFSH Active Problems Active Problems: All Active Problems Tobacco use disorder (Acute) Class 1 obesity (Acute) Bacterial skin infection of upper extremity (Acute) Seizure (Acute) Acute encephalopathy (Acute) Respiratory failure (Acute) Soft tissue infection (Acute) Overdose (Acute) Mood disorder (Acute) Microcytic anemia (Acute) Cocaine use disorder (Acute) Polysubstance abuse (Acute) Opioid use disorder (Acute) Diabetes (Acute) Bacteremia (Acute) Arm ulcer (Acute) Major depressive disorder, recurrent severe without psychotic features (Acute) Past Medical History Medical History Bacteremia Arm ulcer MRSA bacteremia Suicidal ideation Depression Cocaine use with cocaine-induced disorder Opiate dependence, continuous Major depressive disorder, recurrent severe without psychotic features Depression Anxiety IVDU (intravenous drug user) Asthma Functional capacity: independent ambulation Family History Family History Father Heart disease Family history of problems with anesthesia: No Surgical History Surgical History History of surgery on right wrist History of surgery (10/02/24) History of Problems with Anesthesia: No Social History Social History Household Members: Unknown / Unable to assess Household Members Other:: mother Housing: Unknown / Unable to assess Housing Other:: lives with parents Are you a primary tree care foreman to a significant other at home: No Do you presently have visiting nurse or other home services: No Alcohol intake: unknown Comment: seizure precations Patient Tobacco Use Status: Current everyday Tobacco user Tobacco use type: Cigarette Cigarette Packs Per Day: 1 Cigarettes Per Day: 20.0 Years Smoked: 15 Smoked in Last 30 Days: No e-Cigarette/Vaping Use: Never Used Second Hand Smoke Exposure: No Use of substances other than those prescribed or required for medical reasons: Yes Substance Use Type: Crack/Cocaine and Tranquilizers Substance Use Type Other:: last used January 31 or Currently Displaying Signs/Symptoms of Drug Intoxication Withdrawal: No Are you DNR?: No Advance Directives: No Advance Directives Date on File: 01/30/21 Do you have a plan to hurt others: No Plan service: No Current occupational status: unemployed Sexual orientation: Straight/Heterosexual Meds Allergies Allergy/AdvReac Type Severity Reaction Status Date / Time Pertussis Vaccines Allergy Mild HIVES Verified 01/31/25 23:49 (PERTUSSIS VACCINES) haloperidol (From Haldol) Allergy Anaphylaxis Verified 02/05/25 10:27 Active Medications: Current Medications Acetaminophen (Acetaminophen 325 Mg Tablet) 975 mg PO Q6H PRN PRN Reason: Pain, Mild 1-3,fever,headache Baclofen (Baclofen 10 Mg Tablet) 10 mg PO BID [facility] Last Admin: 02/05/25 08:29 Dose: 10 mg Calcium Carbonate (Calcium Carbonate 750 Mg Tab.Chew) 750 mg PO Q4H PRN PRN Reason: Heartburn Ceftriaxone Sodium (Ceftriaxone Sodium 1 Gm Vial) 1 gm IVPUSH Q24H [facility] Last Admin: 02/04/25 12:08 Dose: 1 gm Clonazepam (Clonazepam 1 Mg Tablet) 1 mg PO TID PRN PRN Reason: anxiety/restlessness Last Admin: 02/05/25 08:39 Dose: 1 mg Clonidine HCl (Clonidine Hcl 0.1 Mg Tablet) 0.1 mg PO TID [facility]; Protocol Last Admin: 02/05/25 08:28 Dose: 0.1 mg Diazepam (Diazepam 10 Mg/2 Ml Cartridge) 5 mg IVPUSH Q3H PRN PRN Reason: Seizures Escitalopram Oxalate (Escitalopram Oxalate 10 Mg Tablet) 10 mg PO DAILY [facility] Last Admin: 02/05/25 08:29 Dose: 10 mg Gabapentin (Gabapentin 600 Mg Tablet) 600 mg PO TID [facility] Last Admin: 02/05/25 08:29 Dose: 600 mg Gabapentin (Gabapentin 300 Mg Capsule) 300 mg PO BEDTIME [facility] Last Admin: 02/04/25 22:20 Dose: 300 mg Doxycycline Hyclate 100 mg/ (Sodium Chloride) 250 mls @ 166.67 mls/hr IV Q12H [facility] Last Admin: 02/05/25 09:15 Dose: 166.67 mls/hr Lactated Ringer's (Lr) 500 mls @ 20 mls/hr IVCONT .Q24H [facility] Last Admin: 02/05/25 11:36 Dose: 20 mls/hr Magnesium Hydroxide (Milk Of Magnesia 30 Ml Oral.Susp) 30 ml PO DAILY PRN PRN Reason: Constipation Melatonin (Melatonin 3 Mg Tablet) 6 mg PO BEDTIME PRN PRN Reason: Insomnia Methadone HCl (Methadone Hcl 20 Mg/2 Ml Oral.Conc) 170 mg PO DAILY [facility] Last Admin: 02/05/25 08:33 Dose: 170 mg Mirtazapine (Mirtazapine 7.5 Mg Tablet) 7.5 mg PO BEDTIME [facility] Last Admin: 02/04/25 22:20 Dose: 7.5 mg Nicotine (Nicotine 21 Mg Patch.Td24) 21 mg TRANSDERMA DAILY [facility] Last Admin: 02/05/25 08:29 Dose: 21 mg Nicotine Polacrilex (Nicotine Polacrilex 2 Mg Gum) 2 mg BUCCAL Q2H PRN PRN Reason: Nicotine Cravings Last Admin: 02/04/25 18:51 Dose: 2 mg Ondansetron HCl (Ondansetron Hcl 4 Mg/2 Ml Vial) 4 mg IVPUSH Q8H PRN PRN Reason: Nausea and Vomiting Last Admin: 02/02/25 13:41 Dose: 4 mg Oxycodone HCl (Oxycodone Hcl Immed Release 5 Mg Tablet) 5 mg PO Q6H PRN PRN Reason: Pain, Severe (Pain Scale 7-10) Last Admin: 02/04/25 15:03 Dose: 5 mg Quetiapine Fumarate (Quetiapine Fumarate 100 Mg Tablet) 100 mg PO BEDTIME PRN PRN Reason: Insomnia Sodium Chloride (0.9 % Sodium Chloride Flush 3 Ml Syringe) 3 ml IVFLUSH QSHIFT [facility] Last Admin: 02/05/25 08:30 Dose: 3 ml Tramadol HCl (Tramadol Hcl 50 Mg Tablet) 50 mg PO Q6H PRN PRN Reason: Pain, Moderate(Pain Scale 4-6) Home Medications ?Medication ?Instructions ?Recorded ?Confirmed ?Last Taken ?Type methadone 10 mg/mL oral 170 mg PO DAILY 10/13/2312/2301/31/25 05:57 History concentrate (Methadone Intensol) clonazepam 1 mg tablet 1 mg PO TID 02/28/24 5 02/27/24 20:00 History clonidine HCl 0.1 mg tablet 0.1 mg PO TID 02/28/2411/2302/27/24 20:00 History gabapentin 300 mg capsule 300 mg PO BEDTIME 02/28/24 0 02/01/25 02/26/24 21:00 History gabapentin 600 mg tablet 600 mg PO TID 02/28/2402/0102/27/24 17:00 History mirtazapine 7.5 mg tablet 7.5 mg PO BEDTIME 02/28/24 0 02/01/25 02/26/24 21:00 History quetiapine 100 mg tablet 100 - 200 mg PO BEDTIME PRN 02/28/24 02/01/25 Unknown History Insomnia escitalopram oxalate 10 mg tablet 10 mg PO QAM 5 02/01/25 Unknown History Exam Height,Weight and Vital Signs: Height 5 ft 10 in Weight 95.4 kg Last Vital Signs Temp 97.9 F 02/05/25 10:37 Pulse 62 02/05/25 10:37 Resp 15 02/05/25 10:37 BP 97/59 L 02/05/25 10:37 Pulse Ox 95 02/05/25 10:37 O2 Del Method Room Air 02/05/25 10:37 Pertinent Lab Results Pertinent Lab Results: Laboratory Tests 01/31/25 02/01/25 02/01/25 23:45 00:07 02:20 WBC 8.5 RBC 4.60 Hgb 8.0 L Hct 27.7 L MCV 60.2 L MCH 17.4 L MCHC 28.9 L RDW 17.2 H Plt Count 437 H MPV 9.4 Immature Gran % (Auto) 0.4 Neut % (Auto) 76.6 H Lymph % (Auto) 12.0 L Bonner % (Auto) 10.1 Eos % (Auto) 0.7 Baso % (Auto) 0.2 Lymph # (Auto) 1.0 L Bonner # (Auto) 0.9 Eos # (Auto) 0.1 Baso # (Auto) 0.0 Abs Immat Gran (auto) 0.03 Absolute Neuts (auto) 6.5 Absolute Nucleated RBC 0.000 Nucleated RBC % (auto) 0.0 Smear Path Review Cancelled ESR 28 H Sodium 140 Potassium 3.3 D Chloride 107 Carbon Dioxide 23 Anion Gap 13 BUN 18 H Creatinine 0.67 Estim Creat Clear Calc 180.0 Estimated GFR > 60 POC Glucose 126 H Random Glucose 78 Estimat Average Glucose 131 Hemoglobin A1c % 6.2 H Lactic Acid 2.6 H* Lactic Acid F/U @ 2Hr 0.7 Calcium 8.8 Magnesium Iron 19 L TIBC 303 % Saturation 6 L Unsat Iron Binding 284 Total Bilirubin 0.2 AST 31 ALT 16 Alkaline Phosphatase 84 Troponin I High Sens < 2.7 C-Reactive Protein 2.56 H Total Protein 7.3 Albumin 3.8 Vitamin B12 Folate TSH Prolactin 6.6 Hold Red Top Urine Color Urine Appearance Urine pH Ur Specific [place] Urine Protein Urine Glucose (UA) Urine Ketones Urine Blood Urine Nitrite Ur Leukocyte Esterase Urine RBC Urine WBC Ur Squamous Epith Cells Urine Bacteria Hyaline Casts Urine Opiates Screen Ur Buprenorphine Scrn Ur Oxycodone Screen Urine Methadone Screen Urine Fentanyl Screen Ur Barbiturates Screen Ur Phencyclidine Scrn Ur Amphetamines Screen U Benzodiazepines Scrn Urine Cocaine Screen U Marijuana (THC) Screen 02/01/25 02/01/25 02/01/25 04:21 05:28 08:00 WBC 7.6 RBC 4.19 L Hgb 7.2 L Hct 25.0 L MCV 59.7 L MCH 17.2 L MCHC 28.8 L RDW 17.2 H Plt Count 380 MPV 9.4 Immature Gran % (Auto) Neut % (Auto) Lymph % (Auto) Bonner % (Auto) Eos % (Auto) Baso % (Auto) Lymph # (Auto) Bonner # (Auto) Eos # (Auto) Baso # (Auto) Abs Immat Gran (auto) Absolute Neuts (auto) Absolute Nucleated RBC 0.000 Nucleated RBC % (auto) 0.0 Smear Path Review ESR Sodium 140 Potassium 3.6 Chloride 108 Carbon Dioxide 25 Anion Gap 11 L BUN 12 Creatinine 0.58 Estim Creat Clear Calc 208.0 Estimated GFR > 60 POC Glucose Random Glucose 105 Estimat Average Glucose Hemoglobin A1c % Lactic Acid Lactic Acid F/U @ 2Hr Calcium 8.3 L Magnesium 1.9 Iron TIBC % Saturation Unsat Iron Binding Total Bilirubin AST ALT Alkaline Phosphatase Troponin I High Sens < 2.7 C-Reactive Protein Total Protein Albumin Vitamin B12 452 Folate 9.9 TSH Prolactin Hold Red Top See Note Urine Color Yellow Urine Appearance Clear Urine pH 5.5 Ur Specific [place] >= 1.030 H Urine Protein Negative Urine Glucose (UA) Negative Urine Ketones Negative Urine Blood Negative Urine Nitrite Negative Ur Leukocyte Esterase Negative Urine RBC 0-2 Urine WBC 0-5 Ur Squamous Epith Cells 0-2 Urine Bacteria None Seen Hyaline Casts 0-2 Urine Opiates Screen Not Detected Ur Buprenorphine Scrn Not Detected Ur Oxycodone Screen Not Detected Urine Methadone Screen Positive H Urine Fentanyl Screen POSITIVE H Ur Barbiturates Screen Not Detected Ur Phencyclidine Scrn Not Detected Ur Amphetamines Screen Not Detected U Benzodiazepines Scrn Not Detected Urine Cocaine Screen POSITIVE H U Marijuana (THC) Screen Not Detected 02/01/25 02/01/25 02/01/25 09:18 11:40 15:02 WBC RBC Hgb Hct MCV MCH MCHC RDW Plt Count MPV Immature Gran % (Auto) Neut % (Auto) Lymph % (Auto) Bonner % (Auto) Eos % (Auto) Baso % (Auto) Lymph # (Auto) Bonner # (Auto) Eos # (Auto) Baso # (Auto) Abs Immat Gran (auto) Absolute Neuts (auto) Absolute Nucleated RBC Nucleated RBC % (auto) Smear Path Review ESR Sodium Potassium Chloride Carbon Dioxide Anion Gap BUN Creatinine Estim Creat Clear Calc Estimated GFR POC Glucose 116 H 102 106 Random Glucose Estimat Average Glucose Hemoglobin A1c % Lactic Acid Lactic Acid F/U @ 2Hr Calcium Magnesium Iron TIBC % Saturation Unsat Iron Binding Total Bilirubin AST ALT Alkaline Phosphatase Troponin I High Sens C-Reactive Protein Total Protein Albumin Vitamin B12 Folate TSH Prolactin Hold Red Top Urine Color Urine Appearance Urine pH Ur Specific [place] Urine Protein Urine Glucose (UA) Urine Ketones Urine Blood Urine Nitrite Ur Leukocyte Esterase Urine RBC Urine WBC Ur Squamous Epith Cells Urine Bacteria Hyaline Casts Urine Opiates Screen Ur Buprenorphine Scrn Ur Oxycodone Screen Urine Methadone Screen Urine Fentanyl Screen Ur Barbiturates Screen Ur Phencyclidine Scrn Ur Amphetamines Screen U Benzodiazepines Scrn Urine Cocaine Screen U Marijuana (THC) Screen 02/01/25 02/01/25 02/02/25 20:25 22:31 06:31 WBC 7.9 RBC 4.37 L Hgb 7.5 L Hct 26.0 L MCV 59.5 L MCH 17.2 L MCHC 28.8 L RDW 17.4 H Plt Count TNP MPV TNP Immature Gran % (Auto) Neut % (Auto) Lymph % (Auto) Bonner % (Auto) Eos % (Auto) Baso % (Auto) Lymph # (Auto) Bonner # (Auto) Eos # (Auto) Baso # (Auto) Abs Immat Gran (auto) Absolute Neuts (auto) Absolute Nucleated RBC 0.000 Nucleated RBC % (auto) 0.0 Smear Path Review ESR Sodium 141 Potassium 3.7 Chloride 108 Carbon Dioxide 21 L Anion Gap 16 BUN 8 L Creatinine 0.62 Estim Creat Clear Calc 194.6 Estimated GFR > 60 POC Glucose 69 89 Random Glucose 69 Estimat Average Glucose Hemoglobin A1c % Lactic Acid Lactic Acid F/U @ 2Hr Calcium 8.5 Magnesium 1.8 Iron TIBC % Saturation Unsat Iron Binding Total Bilirubin AST ALT Alkaline Phosphatase Troponin I High Sens C-Reactive Protein Total Protein Albumin Vitamin B12 Folate TSH 1.03 Prolactin Hold Red Top Urine Color Urine Appearance Urine pH Ur Specific [place] Urine Protein Urine Glucose (UA) Urine Ketones Urine Blood Urine Nitrite Ur Leukocyte Esterase Urine RBC Urine WBC Ur Squamous Epith Cells Urine Bacteria Hyaline Casts Urine Opiates Screen Ur Buprenorphine Scrn Ur Oxycodone Screen Urine Methadone Screen Urine Fentanyl Screen Ur Barbiturates Screen Ur Phencyclidine Scrn Ur Amphetamines Screen U Benzodiazepines Scrn Urine Cocaine Screen U Marijuana (THC) Screen 02/02/25 02/02/25 02/02/25 07:36 11:40 15:22 WBC RBC Hgb Hct MCV MCH MCHC RDW Plt Count MPV Immature Gran % (Auto) Neut % (Auto) Lymph % (Auto) Bonner % (Auto) Eos % (Auto) Baso % (Auto) Lymph # (Auto) Bonner # (Auto) Eos # (Auto) Baso # (Auto) Abs Immat Gran (auto) Absolute Neuts (auto) Absolute Nucleated RBC Nucleated RBC % (auto) Smear Path Review ESR Sodium Potassium Chloride Carbon Dioxide Anion Gap BUN Creatinine Estim Creat Clear Calc Estimated GFR POC Glucose 84 85 105 Random Glucose Estimat Average Glucose Hemoglobin A1c % Lactic Acid Lactic Acid F/U @ 2Hr Calcium Magnesium Iron TIBC % Saturation Unsat Iron Binding Total Bilirubin AST ALT Alkaline Phosphatase Troponin I High Sens C-Reactive Protein Total Protein Albumin Vitamin B12 Folate TSH Prolactin Hold Red Top Urine Color Urine Appearance Urine pH Ur Specific [place] Urine Protein Urine Glucose (UA) Urine Ketones Urine Blood Urine Nitrite Ur Leukocyte Esterase Urine RBC Urine WBC Ur Squamous Epith Cells Urine Bacteria Hyaline Casts Urine Opiates Screen Ur Buprenorphine Scrn Ur Oxycodone Screen Urine Methadone Screen Urine Fentanyl Screen Ur Barbiturates Screen Ur Phencyclidine Scrn Ur Amphetamines Screen U Benzodiazepines Scrn Urine Cocaine Screen U Marijuana (THC) Screen 02/02/25 02/03/25 02/03/25 21:17 06:52 07:34 WBC 6.1 RBC 4.12 L Hgb 7.1 L Hct 24.8 L MCV 60.2 L MCH 17.2 L MCHC 28.6 L RDW 17.2 H Plt Count 291 MPV 9.8 Immature Gran % (Auto) Neut % (Auto) Lymph % (Auto) Bonner % (Auto) Eos % (Auto) Baso % (Auto) Lymph # (Auto) Bonner # (Auto) Eos # (Auto) Baso # (Auto) Abs Immat Gran (auto) Absolute Neuts (auto) Absolute Nucleated RBC 0.000 Nucleated RBC % (auto) 0.0 Smear Path Review ESR Sodium 141 Potassium 3.4 Chloride 110 H Carbon Dioxide 22 Anion Gap 12 BUN 10 Creatinine 0.65 Estim Creat Clear Calc 185.6 Estimated GFR > 60 POC Glucose 130 H 95 Random Glucose 104 Estimat Average Glucose Hemoglobin A1c % Lactic Acid Lactic Acid F/U @ 2Hr Calcium 8.5 Magnesium 1.8 Iron TIBC % Saturation Unsat Iron Binding Total Bilirubin AST ALT Alkaline Phosphatase Troponin I High Sens C-Reactive Protein Total Protein Albumin Vitamin B12 Folate TSH Prolactin Hold Red Top Urine Color Urine Appearance Urine pH Ur Specific [place] Urine Protein Urine Glucose (UA) Urine Ketones Urine Blood Urine Nitrite Ur Leukocyte Esterase Urine RBC Urine WBC Ur Squamous Epith Cells Urine Bacteria Hyaline Casts Urine Opiates Screen Ur Buprenorphine Scrn Ur Oxycodone Screen Urine Methadone Screen Urine Fentanyl Screen Ur Barbiturates Screen Ur Phencyclidine Scrn Ur Amphetamines Screen U Benzodiazepines Scrn Urine Cocaine Screen U Marijuana (THC) Screen 02/03/25 02/03/25 02/03/25 11:07 15:08 15:57 WBC RBC Hgb Hct MCV MCH MCHC RDW Plt Count MPV Immature Gran % (Auto) Neut % (Auto) Lymph % (Auto) Bonner % (Auto) Eos % (Auto) Baso % (Auto) Lymph # (Auto) Bon[place] # (Auto) Eos # (Auto) Baso # (Auto) Abs Immat Gran (auto) Absolute Neuts (auto) Absolute Nucleated RBC Nucleated RBC % (auto) Smear Path Review ESR Sodium Potassium Chloride Carbon Dioxide Anion Gap BUN Creatinine Estim Creat Clear Calc Estimated GFR POC Glucose 208 H 56 L* 97 Random Glucose Estimat Average Glucose Hemoglobin A1c % Lactic Acid Lactic Acid F/U @ 2Hr Calcium Magnesium Iron TIBC % Saturation Unsat Iron Binding Total Bilirubin AST ALT Alkaline Phosphatase Troponin I High Sens C-Reactive Protein Total Protein Albumin Vitamin B12 Folate TSH Prolactin Hold Red Top Urine Color Urine Appearance Urine pH Ur Specific [place] Urine Protein Urine Glucose (UA) Urine Ketones Urine Blood Urine Nitrite Ur Leukocyte Esterase Urine RBC Urine WBC Ur Squamous Epith Cells Urine Bacteria Hyaline Casts Urine Opiates Screen Ur Buprenorphine Scrn Ur Oxycodone Screen Urine Methadone Screen Urine Fentanyl Screen Ur Barbiturates Screen Ur Phencyclidine Scrn Ur Amphetamines Screen U Benzodiazepines Scrn Urine Cocaine Screen U Marijuana (THC) Screen 02/03/25 02/04/25 02/04/25 20:49 07:37 11:20 WBC RBC Hgb Hct MCV MCH MCHC RDW Plt Count MPV Immature Gran % (Auto) Neut % (Auto) Lymph % (Auto) Bonner % (Auto) Eos % (Auto) Baso % (Auto) Lymph # (Auto) Bonner # (Auto) Eos # (Auto) Baso # (Auto) Abs Immat Gran (auto) Absolute Neuts (auto) Absolute Nucleated RBC Nucleated RBC % (auto) Smear Path Review ESR Sodium Potassium Chloride Carbon Dioxide Anion Gap BUN Creatinine Estim Creat Clear Calc Estimated GFR POC Glucose 150 H 88 213 H Random Glucose Estimat Average Glucose Hemoglobin A1c % Lactic Acid Lactic Acid F/U @ 2Hr Calcium Magnesium Iron TIBC % Saturation Unsat Iron Binding Total Bilirubin AST ALT Alkaline Phosphatase Troponin I High Sens C-Reactive Protein Total Protein Albumin Vitamin B12 Folate TSH Prolactin Hold Red Top Urine Color Urine Appearance Urine pH Ur Specific [place] Urine Protein Urine Glucose (UA) Urine Ketones Urine Blood Urine Nitrite Ur Leukocyte Esterase Urine RBC Urine WBC Ur Squamous Epith Cells Urine Bacteria Hyaline Casts Urine Opiates Screen Ur Buprenorphine Scrn Ur Oxycodone Screen Urine Methadone Screen Urine Fentanyl Screen Ur Barbiturates Screen Ur Phencyclidine Scrn Ur Amphetamines Screen U Benzodiazepines Scrn Urine Cocaine Screen U Marijuana (THC) Screen 02/04/25 02/04/25 02/05/25 15:09 20:42 07:34 WBC RBC Hgb Hct MCV MCH MCHC RDW Plt Count MPV Immature Gran % (Auto) Neut % (Auto) Lymph % (Auto) Bonner % (Auto) Eos % (Auto) Baso % (Auto) Lymph # (Auto) Bonner # (Auto) Eos # (Auto) Baso # (Auto) Abs Immat Gran (auto) Absolute Neuts (auto) Absolute Nucleated RBC Nucleated RBC % (auto) Smear Path Review ESR Sodium Potassium Chloride Carbon Dioxide Anion Gap BUN Creatinine Estim Creat Clear Calc Estimated GFR POC Glucose 103 129 H 101 Random Glucose Estimat Average Glucose Hemoglobin A1c % Lactic Acid Lactic Acid F/U @ 2Hr Calcium Magnesium Iron TIBC % Saturation Unsat Iron Binding Total Bilirubin AST ALT Alkaline Phosphatase Troponin I High Sens C-Reactive Protein Total Protein Albumin Vitamin B12 Folate TSH Prolactin Hold Red Top Urine Color Urine Appearance Urine pH Ur Specific [place] Urine Protein Urine Glucose (UA) Urine Ketones Urine Blood Urine Nitrite Ur Leukocyte Esterase Urine RBC Urine WBC Ur Squamous Epith Cells Urine Bacteria Hyaline Casts Urine Opiates Screen Ur Buprenorphine Scrn Ur Oxycodone Screen Urine Methadone Screen Urine Fentanyl Screen Ur Barbiturates Screen Ur Phencyclidine Scrn Ur Amphetamines Screen U Benzodiazepines Scrn Urine Cocaine Screen U Marijuana (THC) Screen Airway Mallampati Class: II TM Dist: >3cm Neck ROM: Full Heart: rrr Lungs: cta Assessment and Plan Assessment Anesthesia Assessment: Anesthesia Plan Discussed and Chart Reviewed Final Anesthetic Review Family History of Problems with Anesthesia: No History of Problems with Anesthesia: No NPO: Yes ASA Class: III Final Preanesthetic Review: No Changes in Pt Med Stat, Meds/Allgs Chart Reviewed, Consent Obtained/Reviewed and Anes Risks/Benef Reviewed Patient Risk: Intermediate Procedure Risk: Low Anesthetic Plan Anesthetic Plan: GA and Regional Block Disposition: Standard PACU
--- NOTE | 2025-02-05 13:01 | P.OP_ITS ---
Operative Note Operative Note Date of Service: 02/05/25 Narrative: Preoperative diagnosis: Bilateral upper extremity ulcers Postoperative diagnosis: Same Procedure: Debridement of bilateral upper extremity ulcers Surgeon: Vimal Prakash MD Facility Operations Manager: Yaneth Ramirez PA-C; Ravinder Melara PA-C, Scott FREEMAN, Shiloh Loaiza, MS-3 Anesthesia: General LMA Indications for procedure: 34-year-old male patient presenting with extensive areas of upper extremity skin ulcerations secondary to IV drug use with xylozene previously debrided of the necrotic skin and exudate now presenting for repeat debridement in the OR. Area measures approximately 10 x 10 cm on the left and 5 x 5 cm in the right. Operative findings: Necrotic exudate involving the upper extremities bilaterally with a an area debrided 10 x 10 cm on the left and 5 x 5 cm on the right involving the epidermis only. Specimen: None Estimated blood loss: 2 mL Complications: None Procedure details: Patient was brought to the OR and placed in a supine position. After administering general anesthesia the patient's bilateral arms were prepped with Betadine and draped in a sterile fashion. A surgical time-out was called the consent confirmed. Patient received preoperative antibiotics and Venodyne boots were in place. Local anesthesia was not used. A forceps was used to debride the overlying exudate from the wounds involving both the left and right upper extremities. The area measuring 10 x 10 cm in the left and 5 x 5 cm on the right was debrided of the necrotic epidermis and overlying exudate down to healthy viable tissue. Hemostasis was assured using light pressure. A similar procedure was used on the right side as well. When this was completed the wounds were dressed with Xeroform followed by fluff gauze, ABD pad and Kerlix. The patient tolerated the procedure well. Sponge, instrument, needle counts reported as correct. The patient was transferred to PACU in stable condition.
[2025-02-05 13:56] LABS: Glucose, Whole Blood 94 mg/dL (60-115)
--- NOTE | 2025-02-05 16:00 | HO.WOUND ---
Wound Consult: Initial 34yr old?male admitted to [facility] on 02/01/25 - See progress notes and H&P for detailed history.? Wound consult placed for Bilateral arm wounds secondary to ELMER. Chart review reveals patient is followed by general surgery and is scheduled for surgical debirdement in the OR later today. Will defer topical orders to general surgery. Please re-consult if topical orders are needed.
[2025-02-05 16:13] LABS: Glucose, Whole Blood 180 mg/dL (60-115)
[2025-02-05 16:49] LABS: OBS Int Ctl Valid YES; OBS Lot 0124; OBS1 NEGATIVE (NEGATIVE)
[2025-02-05 20:32] LABS: Glucose, Whole Blood 176 mg/dL (60-115)
--- NOTE | 2025-02-05 23:19 | PM.DS ---
DS: Providers Provider Date of Service: 02/05/25 Date of admission: 02/01/25 03:48 Date of discharge: 02/05/25 Primary care physician: Orlando Mahmood III, MD Consults: 02/01/25 03:53 Addiction Medicine Provider Routine Consulting Provider: Addiction Covering Reason for consultation: [place] Has provider been notified: No Consult to Infectious Diseases Routine Consulting Provider: [facility] Reason for consultation: chronic wounds upper extremities, hx MRSA bacteremia Has provider been notified: No Consult to Neurology Routine Consulting Provider: [facility] [place] [place] Reason for consultation: seizure Has provider been notified: No Consult to Vascular Surgery Routine Consulting Provider: [facility] Reason for consultation: chronic wounds upper extremities, worsening Has provider been notified: No Consult to Wound Care Routine Reason for consultation: wounds upper extremities, chronic, worsening 02/02/25 08:17 Consult to General Surgery Routine Consulting Provider: [facility] Reason for consultation: Arm wounds ? need debridment Has provider been notified: No DS: Diagnosis Discharge Diagnosis (1) Diabetes: Status: Acute DS: Summary Hospital Course Hospital Course: HE LEFT AMA! Patient is a 34-year-old male with a past medical history significant for polysubstance use including IV cocaine and heroin, chronic wounds in the upper extremities previously followed by wound care, ?epileptic disorder, history of MRSA bacteremia and mild intermittent asthma, who arrived to the ED via EMS after being picked up at home for a convulsive witnessed seizure. seizure, reported as tonic clonic, witnessed - pt denies hx of seizure disorder but has had seizures from drug use, likely drug related, ct ok, eeg pending, not sure if MRI is warranted will discuss with Neuro, PRN diazepam for recurrent seizure, hold antiepileptics for now. Seen by Neuro. likely drug related, MRI was requested he could not tolerate, EEG was pending. He was also been treated for chronic wounds on both arm with cultures goriwng Group G strep and MRSA and was on Vanco and Zosyn, later changed to ceftriaxone and Doxycyline. He had debridement of the wound in the OR on 02/05, He was seen by the addiction team and was given methadone. He left AMA after my shift on 02/05 Problems polysubstance abuse/overdose, likely cause of seizure, +Fentanyl and cocaine.. On prescribed methadone, gabaenting chronic upper extremity wounds with superimposed infection in IVDU wound culture MRSA and strep was on vanco and zosyn, now ceftriaxone and doxy echo no vegetations. Had OR debridment on 02/05 elevated blood glucose A1c 6.2% monitor POC microcytic anemia hgb 8.0, hct 27.7, mcv 60.2-->Hgb 7.2--> 7.5 likely chronic disease and chronic external blood loss from wound mild intermittent asthma, no acute exacerbation class 1 obesity BMI 30.2 weight loss encouraged tobacco use disorder nicotine patch smoking cessation encouraged Time Attestation Discharge Coordination Time (in mins): 45 Quality: Safe Use of Opioids Does Pt have an Active Cancer Diagnosis on the Problem List?: No Quality: Stroke Does the patient have a stroke diagnosis?: No Physical Exam Vital Signs: Vital Signs: Last Vital Signs Temp 96.9 F 02/05/25 23:20 Pulse 125 H 02/05/25 23:20 Resp 16 02/05/25 23:20 BP 137/84 02/05/25 23:20 Pulse Ox 96 02/05/25 23:20 O2 Del Method Room Air 02/05/25 23:20 O2 Flow Rate 2 02/05/25 13:20 BMI result Body Mass Index 30.2 DS: Data Data Completed and Pending Completed studies during hospitalization [Text1]: Procedures Excision of Duodenum, Via Natural or Artificial Opening Endoscopic, Diagnostic (01/01/24) Excision of Left Lower Arm Skin, External Approach (09/27/24) Excision of Rectum, Via Natural or Artificial Opening Endoscopic, Diagnostic (01/01/24) Excision of Right Lower Arm Skin, External Approach (09/27/24) Excision of Stomach, Pylorus, Via Natural or Artificial Opening Endoscopic, Diagnostic (01/01/24) Insertion of Endotracheal Airway into Trachea, Via Natural or Artificial Opening (09/27/24) Insertion of Infusion Device into Superior Vena Cava, Percutaneous Approach (09/27/24) Insertion of Infusion Device into Upper Vein, Percutaneous Approach (09/27/24) Introduction of Vasopressor into Peripheral Vein, Percutaneous Approach (09/27/24) Respiratory Ventilation, 24-96 Consecutive Hours (09/27/24) Transfusion of Nonautologous Red Blood Cells into Peripheral Vein, Percutaneous Approach (09/27/24) Ultrasonography of Superior Vena Cava, Guidance (09/27/24) Labs on day of discharge: Laboratory Results - last 24 hr 02/05/25 02/05/25 02/05/25 07:34 13:52 16:02 POC Glucose 101 94 180 H Stool Occult Blood 02/05/25 02/05/25 16:40 20:28 POC Glucose 176 H Stool Occult Blood NEGATIVE Discharge Plan Discharge Anticipated Discharge Date/Time: 02/05/25 23:55 Patient Disposition: Left Against Medical Advice Discharge Diagnosis: Seizure, opioid use disorder, infected wound of arms, Referrals: Orlando Mahmood III, MD [Primary Care Provider, Medical] - 1 Week Discharge Medications: No Action methadone [Methadone Intensol] 10 mg/mL Concentrate 170 mg PO DAILY clonidine HCl 0.1 mg tablet 0.1 mg PO TID gabapentin 600 mg tablet 600 mg PO TID clonazepam 1 mg tablet 1 mg PO TID quetiapine 100 mg tablet 100 - 200 mg PO BEDTIME PRN (Reason: Insomnia) gabapentin 300 mg capsule 300 mg PO BEDTIME mirtazapine 7.5 mg tablet 7.5 mg PO BEDTIME escitalopram oxalate 10 mg tablet 10 mg PO QAM Discharge Orders: Discharge Order (Routine); Ordered 02/06/25 Ordered By: Kal Ruiz Diet: Advance to usual diet Print Language: Croatian Care Plan Goals: left ama Health Concerns: left ama Plan of Treatment: left ama Assessment: left ama Discharge Date/Time: 02/06/25 00:50
--- NOTE | 2025-02-05 23:51 | MHC.PIE ---
p; dirty syringe found on bed as pt ambulated to bathroom, when asked, pt admitted to shooting up in room. i; security notified p; pt now wants to leave AMA i; dr slade notified. nursing sup notified e; dr slade and nursing sup in room spoken with pt, pt adamant on leaving AMA, midline rt ua d/c before pt left unit.
--- NOTE | 2025-02-05 23:58 | PM.EVENT ---
Event Note Date of Service: 02/05/25 Event Note: Nursing asked to have pt seen as pt requesting to leave AMA as soon as a ride is available. Per nursing, earlier, pt was found to have drug paraphanelia in his room and items were confiscated by secutiry. Pt seen and interviewed. Pt is currently alert and orientated X3 and does not appear to be under the influence of illicit drugs. Pt explained that something personal is happening and he needs to leave to deal with it. Pt states he will be back. Reviewed current tx plan to include IV ABX and the severity of his wounds, especially if pt continues to use IV drugs. Pt could be risking his health and life and the outcome can include loss of his life ultimately. Pt told that every time he leaves, he slows progression of healing by attending, Dr. Lilly. Pt expressed complete understanding and states he knows what the risks are by leaving AMA but he has chosen to leave with the understanding that he will not receive RX for ABX. Pt did agree to go to wound care clinic in the AM for visit and overview of care needs. MIDLINE will be removed by nursing and pt will sign the necessary paperwork. Time Spent With Patient Time: Total time managing care of this patient today ____ minutes.
--- NOTE | 2025-02-06 10:19 | HO.POSTANES ---
Post Anesthesia Evaluation Post Anesthesia Evaluation Date of Service: 02/06/25 Vital Signs: Vital Signs Temp Pulse Resp BP Pulse Ox O2 Del Method 02/05/25 23:20 96.9 F 125 H 16 137/84 96 Room Air Anesthesia: General LMA Comments: Pt left AMA overnight. See discharge summary. Pt was stable at time of discharge per note.
--- NOTE | 2025-02-06 12:45 | HO.POSTANES ---
Post Anesthesia Evaluation Post Anesthesia Evaluation Date of Service: 02/06/25 Anesthesia: General Mental Status: Awake Pain Control: Satisfactory Nausea/Vomiting: None Hydration: Adequate Anesthesia-Related Issues: No Anes. Related Issues
--- NOTE | 2025-02-25 07:26 | P.CDIM_ITS ---
PROVIDER RESPONSE TEXT: To clarify, the appropriate diagnosis supported by the clinical indicators: Non-excisional debridement QUERY TEXT: PHYSICIAN'S DOCUMENTATION REQUEST Date of Query: 02/21/2025 10:36 AM EDT Patient Name: Andrey Monk Admit Date: 02/01/2025 Dear Vimal Prakash MD, A review of the medical record indicates additional documentation may be needed. Please review below and update the documentation accordingly. Clinical Indicators: Per Operative note 02/05/25: forceps used to debride the overlying exudate from the wounds involving both the left and right upper extremities Could you provide, in the Progress Notes, further clarification regarding the type of the debridement? Excisional debridement Non-excisional debridement Other (explain) Clinically unable to determine (explain) Thank you, Amira Galindo RN Use of terms such as suspected, likely, concern for, or probable (associated with a specific diagnosis that is being evaluated, monitored, or treated as if it exists) are acceptable and can be coded in the inpatient setting, when documented at the time of discharge. Please use your independent medical judgment in providing your response. THIS QUERY IS PART OF THE PERMANENT MEDICAL RECORD
== END 2025-02-06 00:50 | disposition left against medical advice (07) | DRG 812 ==
LOC: HO.ED 02-01 01:54 → HO.EDOVER 02-01 04:09 → HO.IMC 02-01 07:39 → HO.S3 02-04 15:42
PROVIDERS: Emergency Medicine; Surgery; Admitting Provider Physician Assistant; Emergency Provider Emergency Medicine; PCP Internal Medicine; Visit Provider Internal Medicine
PROC: 0HDEXZZ Extraction of Left Lower Arm Skin, External Approach (ICD-10-PCS; principal; 2025-02-05 11:30)
DX: T50.911A Poisoning by multiple unspecified drugs, medicaments and biological substances, accidental (unintentional), initial encounter (principal); I96 Gangrene, not elsewhere classified; R56.9 Unspecified convulsions; D50.9 Iron deficiency anemia, unspecified; E66.811 Obesity, class 1; B95.62 Methicillin resistant Staphylococcus aureus infection as the cause of diseases classified elsewhere; F11.20 Opioid dependence, uncomplicated; F17.210 Nicotine dependence, cigarettes, uncomplicated; F14.93 Cocaine use, unspecified with withdrawal; T50.995S Adverse effect of other drugs, medicaments and biological substances, sequela; L98.499 Non-pressure chronic ulcer of skin of other sites with unspecified severity; F19.10 Other psychoactive substance abuse, uncomplicated; J45.20 Mild intermittent asthma, uncomplicated; Z71.3 Dietary counseling and surveillance; Z68.30 Body mass index [BMI] 30.0-30.9, adult; Z71.6 Tobacco abuse counseling; Z79.899 Other long term (current) drug therapy
CPT/HCPCS: 36415; 70450; 71045; 73201; 80048; 80053; 80307; 81001; 82272; 82607; 82746; 82947; 83036; 83540; 83605; 83735; 84146; 84443; 84484; 85025; 85027; 85652; 86140; 87040; 87070; 87077; 87147; 87186; 87205; 93005; 93306; 99285; J0696; J1100; J1271; J2003; J2405; J2543; J2704; J2795; J3010; J3373; J3480; J7120; Q9957; Q9967; S9485

== ENCOUNTER → 2025-02-01 00:10 | Outpatient (BNV) | payer OTHER, SELFPAY | PROVIDERS: Admitting Provider Physician Assistant; Emergency Provider Emergency Medicine; Visit Provider Internal Medicine Cardiovascular Disease | DX: R01.1 Cardiac murmur, unspecified (principal); I51.89 Other ill-defined heart diseases; R00.0 Tachycardia, unspecified | CPT/HCPCS: 93010; 93306 ==

== ENCOUNTER → 2025-02-01 03:48 | Outpatient (BNV) | payer OTHER, SELFPAY | PROVIDERS: Admitting Provider Physician Assistant; Emergency Provider Emergency Medicine; Visit Provider Surgery | DX: L08.9 Local infection of the skin and subcutaneous tissue, unspecified (principal); L98.499 Non-pressure chronic ulcer of skin of other sites with unspecified severity | CPT/HCPCS: 99222 ==

== ENCOUNTER → 2025-02-01 03:48 | Outpatient (BNV) | payer OTHER, SELFPAY | PROVIDERS: Admitting Provider Physician Assistant; Emergency Provider Emergency Medicine; Visit Provider Psychiatry & Neurology Neurology | DX: R56.9 Unspecified convulsions (principal) | CPT/HCPCS: 99222 ==

== ENCOUNTER → 2025-02-01 03:48 | Outpatient (BNV) | payer OTHER, SELFPAY | PROVIDERS: Admitting Provider Physician Assistant; Emergency Provider Emergency Medicine; Visit Provider Internal Medicine | DX: L08.9 Local infection of the skin and subcutaneous tissue, unspecified (principal); F14.10 Cocaine abuse, uncomplicated; F11.90 Opioid use, unspecified, uncomplicated | CPT/HCPCS: 99222 ==

== ENCOUNTER → 2025-02-01 03:48 | Outpatient (BNV) | payer OTHER, SELFPAY | PROVIDERS: Admitting Provider Physician Assistant; Emergency Provider Emergency Medicine; PCP Internal Medicine; Visit Provider Surgery Vascular Surgery | DX: L98.499 Non-pressure chronic ulcer of skin of other sites with unspecified severity (principal) | CPT/HCPCS: 99222 ==

== ENCOUNTER → 2025-02-01 03:48 | Outpatient (BNV) | payer OTHER, SELFPAY | PROVIDERS: Admitting Provider Physician Assistant; Emergency Provider Emergency Medicine; Visit Provider Internal Medicine | DX: E11.9 Type 2 diabetes mellitus without complications (principal) | CPT/HCPCS: 99223; 99232; 99239; 99499 ==

== ENCOUNTER → 2025-02-01 03:48 | Outpatient (BNV) | payer OTHER, SELFPAY | PROVIDERS: Admitting Provider Physician Assistant; Emergency Provider Emergency Medicine; Visit Provider Nurse Practitioner Psychiatric/Mental Health | DX: F11.90 Opioid use, unspecified, uncomplicated (principal) | CPT/HCPCS: 99221 ==

== ENCOUNTER → 2025-02-01 | Outpatient (BNV) | payer OTHER, SELFPAY | PROVIDERS: Emergency Provider Emergency Medicine; Visit Provider Radiology Diagnostic Radiology | DX: M72.6 Necrotizing fasciitis (principal); G93.49 Other encephalopathy; R56.9 Unspecified convulsions | CPT/HCPCS: 70450; 71045; 73201 ==

== ENCOUNTER 2025-03-01 18:49 | Inpatient (IN) | payer OTHER, SELFPAY ==
--- NOTE | 2025-03-01 | ECG_ITS ---
Test Reason : SOB Blood Pressure : */* mmHG Vent. Rate : 75 BPM Atrial Rate : 75 BPM P-R Int : 172 ms QRS Dur : 94 ms QT Int : 428 ms P-R-T Axes : 62 30 46 degrees QTcB Int : 477 ms Normal sinus rhythm Normal ECG When compared with ECG of 01-Feb-2025 06:41, Sinus rhythm has replaced Junctional rhythm Vent. rate has decreased by 53 bpm Minimal criteria for Inferior infarct are no longer Present Referred By: Generic ED Physician Electronically Signed By: KATELYNN DE LOS SANTOS MD
--- NOTE | ~2025-03-01 | CT_ITS ---
CLINICAL HISTORY: infection abscess Contrast-enhanced CT of the right forearm Indication: Abscess Comparison: 01/01/2024 Findings: Soft tissue thickening and regions of ulceration and subcutaneous edema without evidence of drainable abscess or drainable fluid collection. No evidence of osteomyelitis. Impression: Skin changes and subcutaneous edema without evidence of drainable abscess. Given limitations, ultrasound may better evaluate for subtle fluid pockets. This document has been electronically signed by: Chris Soto MD on 03/01/2025 22:57:38
--- NOTE | ~2025-03-01 | CT_ITS ---
CLINICAL HISTORY: r o retroperitoneal bleed - PT INJECTED ON PRIOR CT CT abdomen and pelvis without contrast. Patient received contrast at 8:00 p.m. Indication: Retroperitoneal bleed Comparison: CT/SR - UPPER EXTREMITIES FOREARM_WITH_IV (ADULT) - 03/01/25 21:47 EDT Findings: The lung bases are clear, given limitations of motion. Noncontrasted liver is normal. Gallbladder is distended. Spleen is normal. Pancreas is normal. Kidneys are imaged in the excretory phase from prior contrast administration. No ureteral lithiasis or hydroureter. Contrast is present within the bladder. Stomach is partially distended. Small bowel is normal. Moderate stool burden in the ascending, transverse, descending and sigmoid colon. The appendix is normal. No retroperitoneal collection. No presacral hematoma. Osseous structures are normal. Inguinal canals are normal. No bowel obstruction, pneumoperitoneum, or pneumatosis. No acute fracture. IMPRESSION: No acute intra-abdominal, pelvic, or retroperitoneal findings. This document has been electronically signed by: Serg Bates III, MD PHD on 03/02/2025 02:16:59
--- NOTE | ~2025-03-01 | CT_ITS ---
CLINICAL HISTORY: infection, abscess Contrast-enhanced CT of the left forearm Indication: Abscess Comparison: 02/01/2025 Findings: There remains skin thickening and subcutaneous edema with no convincing evidence of drainable abscess. Mild degenerative changes of the visualized elbow and wrist. No evidence of osteomyelitis. Impression: No soft tissue gas or definite drainable abscess. Given limitations, this may be better evaluated by ultrasound. This document has been electronically signed by: Chris Soto MD on 03/01/2025 22:56:45
--- NOTE | ~2025-03-01 | CT_ITS ---
CLINICAL HISTORY: AMS CT head without contrast Comparison: CT/REG/DE/SR - CT HEAD/BRAIN WO IV CON - 09/27/24 11:[address]/DE/SR - CT HEAD/BRAIN WO IV CON - 02/28/24 00:26 EDT Findings: No intra-axial mass, midline shift, hydrocephalus, or acute hemorrhage. Similar faint left frontal low-density, axial 34. Probable sequelae of prior trauma. Otherwise no significant atrophy-like change or white matter disease. The visualized paranasal sinuses and mastoid air cells are normal. The orbits are unremarkable. No skull fracture. IMPRESSION: 1. No acute intracranial findings. This document has been electronically signed by: Chris Soto MD on 03/02/2025 05:37:38
[2025-03-01 18:58] VITALS: BP 142/77; BP 158/65; PULSE 83; PULSE 90; RESP 19; TEMP 36.4; O2SAT 97; BMI 29.9
[2025-03-01 19:03] VITALS: BP 158/65; PULSE 83; RESP 19; TEMP 36.4; O2SAT 97
[2025-03-01 20:17] LABS: Hematocrit 24.3 % (42.0-52.0); Imm Gran Abs Auto 0.05 X10*3/uL (0.00-0.03); Imm Gran Pct Auto 0.4 % (0.0-0.4); Lymphocytes Absolute Auto 1.0 X10*3/uL (1.2-4.9); MANUAL DIFF FLAG SCAN; Mean Corpuscular HGB Conc 28.4 g/dl (31.0-36.0); Mean Corpuscular Hemoglobin 16.5 pg (27.0-33.0); NRBC Abs Auto 0.000 X10*3/uL (0.0-0.012); NRBC Pct Auto 0.0 /100WBC (0.0-0.2); PLT CLUMP 1; Red Blood Count 4.19 X10*6/uL (4.60-5.80); SCAN SMEAR FLAG 1
[2025-03-01 20:22] LABS: Hemoglobin 6.9 g/dl (14.0-18.0)
[2025-03-01 20:23] LABS: Mean Corpuscular Volume 58.0 fL (80.0-98.0); White Blood Count 11.8 X10*3/uL (4.8-10.8)
[2025-03-01 20:40] LABS: Platelet Count 307 X10*3/uL (160-400)
[2025-03-01 20:42] LABS: Acetaminophen LAB < 3 mcg/mL (<30); Salicylate < 5.0 mg/dL (15-30)
[2025-03-01 20:43] LABS: Alanine Aminotransferase 12 U/L (0-40); Albumin Level 3.9 g/dL (3.5-5.0); Alkaline Phosphatase 82 U/L (39-117); Anion Gap 12 (12-20); Aspartate Amino Transferase 35 U/L (5-37); Blood Urea Nitrogen 21 mg/dL (9-16); Calcium 9.1 mg/dL (8.4-10.2); Carbon Dioxide 22 mmol/L (22-29); Chloride 108 mmol/L (96-108); Creatinine Clr Calc Pharmacy 182.1; Estimated Glomerular Filt Rate > 60; Potassium 3.9 mmol/L (3.3-5.1); Sodium 138 mmol/L (135-145); Total Protein 7.3 g/dL (6.5-8.0)
[2025-03-01 21:05] LABS: Hematocrit 23.7 % (42.0-52.0); Imm Gran Abs Auto 0.05 X10*3/uL (0.00-0.03); Imm Gran Pct Auto 0.4 % (0.0-0.4); Lymphocytes Absolute Auto 0.7 X10*3/uL (1.2-4.9); Mean Corpuscular HGB Conc 29.1 g/dl (31.0-36.0); Mean Corpuscular Hemoglobin 16.9 pg (27.0-33.0); NRBC Abs Auto 0.000 X10*3/uL (0.0-0.012); NRBC Pct Auto 0.0 /100WBC (0.0-0.2); Platelet Count 408 X10*3/uL (160-400); Red Blood Count 4.08 X10*6/uL (4.60-5.80); White Blood Count 12.2 X10*3/uL (4.8-10.8)
[2025-03-01 21:06] LABS: MANUAL DIFF FLAG NO; Mean Corpuscular Volume 58.1 fL (80.0-98.0)
[2025-03-01 21:10] LABS: Hemoglobin 6.9 g/dl (14.0-18.0)
[2025-03-01 21:21] LABS: Alanine Aminotransferase 15 U/L (0-40); Albumin Level 3.9 g/dL (3.5-5.0); Alkaline Phosphatase 84 U/L (39-117); Anion Gap 13 (12-20); Aspartate Amino Transferase 31 U/L (5-37); Blood Urea Nitrogen 21 mg/dL (9-16); Calcium 9.0 mg/dL (8.4-10.2); Carbon Dioxide 25 mmol/L (22-29); Chloride 107 mmol/L (96-108); Creatinine Clr Calc Pharmacy 185.0; Estimated Glomerular Filt Rate > 60; Potassium 3.7 mmol/L (3.3-5.1); Salicylate < 5.0 mg/dL (15-30); Sodium 141 mmol/L (135-145); Total Protein 7.2 g/dL (6.5-8.0)
[2025-03-01 21:37] LABS: OBS Int Ctl Valid YES; OBS1 NEGATIVE (NEGATIVE)
[2025-03-01 21:43] VITALS: BP 110/66; PULSE 81; RESP 12; TEMP 36.6; O2SAT 98
--- NOTE | 2025-03-01 21:45 | PC.NURSE ---
Santhosh Mabry, started 2 ultra sound IV's, recollect in labs, pt had bilateral arm wounds, provider clean and applied dressing. pt taken to CT Scan.
[2025-03-01] MEDS: iohexoL 350 MG/ML 100 ML INFUS..BTL IV (22:08)
--- NOTE | 2025-03-01 22:30 | PC.NURSE ---
medicated per mar, pt reposition in bed.
[2025-03-01 22:43] VITALS: BP 94/42; PULSE 79; RESP 15; TEMP 36.8
--- NOTE | 2025-03-01 22:49 | PC.NURSE ---
1st unit of blood started.
--- NOTE | 2025-03-01 22:51 | PC.NURSE ---
pt lethargic, able to be awaken and answer questions appropriately
[2025-03-01 23:00] VITALS: BP 93/41; PULSE 70; RESP 12; TEMP 36.5
[2025-03-01 23:44] VITALS: BP 92/38; PULSE 65; RESP 14; O2SAT 98
[2025-03-02] VITALS (18 sets, daily range): BP systolic 98–164; BP diastolic 38–71; PULSE 51–80; RESP 10–21; TEMP 36.1–37.6; O2SAT 97–100; BMI 29.8
--- NOTE | 2025-03-02 00:15 | ED.GENADULT ---
HPI - General Adult General Chief complaint: Overdose Stated complaint: OD, 8MG NARCAN GIVEN Time Seen by Provider: 03/01/25 19:57 Source: EMS Limitations: other (Opiate withdrawal) History of Present Illness ED Provider: Susan Velásquez PA-C HPI narrative: 34-year-old male with a history of polysubstance abuse, IV drug abuse, known microcytic anemia, mood disorder, depression, diabetes who presents after overdose. EMS was called to the home after his brother found him unconscious. He was given 8 mg total of intranasal Narcan, the patient then became responsive. Patient admits to injecting fentanyl. Denies SI or HI. History limited as the patient is not willing to engage in conversation so as to obtain detailed history. Related Data Home Medications ?Medication ?Instructions ?Recorded ?Confirmed methadone 10 mg/mL oral 170 mg PO DAILY 10/13/23 02/02/25 concentrate (Methadone Intensol) clonazepam 1 mg tablet 1 mg PO TID 02/28/24 02/01/25 clonidine HCl 0.1 mg tablet 0.1 mg PO TID 02/28/24 02/01/25 gabapentin 300 mg capsule 300 mg PO BEDTIME 02/28/24 02/01/25 gabapentin 600 mg tablet 600 mg PO TID 02/28/24 02/01/25 mirtazapine 7.5 mg tablet 7.5 mg PO BEDTIME 02/28/24 02/01/25 quetiapine 100 mg tablet 100 - 200 mg PO BEDTIME PRN 02/28/24 02/01/25 Insomnia escitalopram oxalate 10 mg tablet 10 mg PO QAM 02/01/25 02/01/25 Allergies Allergy/AdvReac Type Severity Reaction Status Date / Time Pertussis Vaccines Allergy Mild HIVES Verified 03/01/25 19:03 (PERTUSSIS VACCINES) haloperidol (From Haldol) Allergy Anaphylaxis Verified 03/01/25 19:03 Review of Systems Review of Systems: Unable to obtain as the patient is not forthcoming about details surrounding his emergency room visit, will not engage in conversation Yes all other systems are reviewed and are negative PMFSH Past Medical History Attestation statement: The following information was validated with the patient. Medical History Bacteremia Arm ulcer MRSA bacteremia Suicidal ideation Depression Cocaine use with cocaine-induced disorder Opiate dependence, continuous Major depressive disorder, recurrent severe without psychotic features Depression Anxiety IVDU (intravenous drug user) Asthma Surgical History History of surgery on right wrist History of surgery (10/02/24) Family History Family History Father Heart disease Social History Social History Household Members: Unknown / Unable to assess Household Members Other:: mother Housing: Unknown / Unable to assess Housing Other:: lives with parents Are you a primary child care cook to a significant other at home: No Do you presently have visiting nurse or other home services: No Alcohol intake: unknown Comment: COUNTS CORRECT Patient Tobacco Use Status: Current everyday Tobacco user Tobacco use type: Cigarette Cigarette Packs Per Day: 1 Cigarettes Per Day: 20.0 Years Smoked: 15 Smoked in Last 30 Days: Yes e-Cigarette/Vaping Use: Never Used Second Hand Smoke Exposure: No Use of substances other than those prescribed or required for medical reasons: Yes Substance Use Type: Other Substance Use Type Other:: fentanyl Substance Use Frequency: Daily Last Used Substance: Just Prior to Admission Advance Directives: No Advance Directives Information Provided: No Advance Directives Date on File: 01/30/21 Do you have a plan to hurt others: No Plan service: No Current occupational status: unemployed Sexual orientation: Straight/Heterosexual Physical Exam ED Vital Signs: Vital Signs - 24 hr 03/01/25 18:58 03/01/25 19:03 03/01/25 21:43 Temperature 97.6 F 97.6 F 97.8 F Pulse Rate 83 83 81 Respiratory Rate 19 19 12 Blood Pressure 158/65 H 158/65 H 110/66 Pulse Oximetry 97 97 98 Oxygen Delivery Method Room Air Room Air Room Air 03/01/25 22:43 03/01/25 23:00 03/01/25 23:44 Temperature 98.3 F 97.7 F Pulse Rate 79 70 65 Respiratory Rate 15 12 14 Blood Pressure 94/42 L 93/41 L 92/38 L Pulse Oximetry 98 Oxygen Delivery Method Room Air 03/02/25 00:25 03/02/25 00:49 Temperature 97.9 F 97.7 F Pulse Rate 70 64 Respiratory Rate 14 12 Blood Pressure 98/43 L 98/65 Pulse Oximetry Oxygen Delivery Method BMI result Body Mass Index 29.9 Const Other: Awake, appears older than stated age, diaphoretic Orientation/consciousness: oriented to person Eyes Other: Pinpoint pupils Resp Effort & Inspection: normal respiratory effort Cardio Other: Normal peripheral perfusion Skin Other: Warm dry no rash Neuro Other: Uncooperative, Unable to obtain as the patient is not forthcoming about details surrounding his emergency room visit, will not engage in conversation....... However, he does express dissatisfaction with the attempts to examine him General: oriented to person, no focal motor deficits and CN's II-XI intact bilaterally Extrem Other: Psych Other: Uncooperative, Unable to obtain as the patient is not forthcoming about details surrounding his emergency room visit, will not engage in conversation....... However, he does express dissatisfaction with the attempts to examine him Medications Administered Discontinued Medications Generic Name Dose Route Start Last Admin Trade Name Freq PRN Reason Stop Dose Admin Vancomycin HCl 1,500 mg/ 500 mls @ 333.333 mls/hr 03/01/25 21:23 03/01/25 23:45 Sodium Chloride IV 03/01/25 22:52 Infused POSTOP ONE Infusion Piperacillin Sod/Tazobactam 50 mls @ 100 mls/hr 03/01/25 23:00 03/02/25 00:26 Sod 3.375 gm/ Sodium Chloride IV 03/01/25 23:29 Infused ONCE ONE Infusion Iohexol 100 ml 03/01/25 21:58 03/01/25 22:08 Iohexol 350 Mg/Ml 100 Ml Infus..Btl IV 03/01/25 21:59 100 ml ONCE ONE Administration Procedures Procedure Narrative Procedure Narrative: Ultrasound-guided IV Bilateral 18 gauge 1-3/4 inch IVs placed in bilateral upper extremities. Adequate blood flow, flushes well, secured with Tegaderm Medical Decision Making Medical Decision Making MDM Narrative: 34-year-old male with a history of polysubstance abuse, IV drug abuse, known microcytic anemia, mood disorder, depression, diabetes who presents after overdose. EMS was called to the home after his brother found him unconscious. He was given 8 mg total of intranasal Narcan, the patient then became responsive. Patient admits to injecting fentanyl. Denies SI or HI. History limited as the patient is not willing to engage in conversation so as to obtain detailed history. Problem: Substance abuse, mental illness, known microcytic anemia, diabetes History: Per EMS I have considered the following differential diagnoses: Overdose, SI, HI, anemia, GI bleed, cellulitis, purulent cellulitis, osteomyelitis , need for detox Plan: Patient initially presents as an overdose, he denies SI or HI. Screening labs were in process, he is found to be critically anemic, no evidence of active GI bleeding on guaiac. We will order type and screen and blood product. Lastly, he has acute on chronic wounds bilateral forearms, concerned for potential underlying abscesses. We will obtain CT scans. Adding blood cultures and lactic, I will be starting vanco and Zosyn. Drug screen and ethanol ordered, he may require care team versus disaster recovery specialist during his assessment. I have independently reviewed the following tests: Labs: Leukocytosis with left shift, critical anemia, hemoglobin 6.9, hematocrit 23.7, no electrolyte abnormality, lactic 0.7, ethanol less than 10, drug screen pending CT right forearm:Impression: Skin changes and subcutaneous edema without evidence of drainable abscess. Given limitations, ultrasound may better evaluate for subtle fluid pockets. CT left forearm: mpression: No soft tissue gas or definite drainable abscess. Given limitations, this may be better evaluated by ultrasound. Lab Data 03/01/25 20:58 03/01/25 20:58 Labs: Lab Results 03/01/25 03/01/25 03/01/25 Range/Units 20:08 20:58 21:32 WBC 11.8 H 12.2 H (4.8-10.8) X10*3/uL RBC 4.19 L 4.08 L (4.60-5.80) X10*6/uL Hgb 6.9 L* 6.9 L* (14.0-18.0) g/dl Hct 24.3 L 23.7 L (42.0-52.0) % MCV 58.0 L 58.1 L (80.0-98.0) fL MCH 16.5 L 16.9 L (27.0-33.0) pg MCHC 28.4 L 29.1 L (31.0-36.0) g/dl RDW 16.7 H 16.7 H (11.0-16.0) % Plt Count 307 408 H D (160-400) X10*3/uL MPV 10.1 9.4 (9.4-12.4) fL Immature Gran % (Auto) 0.4 0.4 (0.0-0.4) % Neut % (Auto) 85.6 H 88.7 H (45-73) % Lymph % (Auto) 8.0 L 5.8 L (20-40) % Campbell % (Auto) 4.8 4.4 (2-11) % Eos % (Auto) 1.0 0.5 (0-4) % Baso % (Auto) 0.2 0.2 (0-2) % Lymph # (Auto) 1.0 L 0.7 L (1.2-4.9) X10*3/uL Campbell # (Auto) 0.6 0.5 (0.1-1.2) X10*3/uL Eos # (Auto) 0.1 0.1 (0.0-0.4) X10*3/uL Baso # (Auto) 0.0 0.0 (0.0-0.2) X10*3/uL Abs Immat Gran (auto) 0.05 H 0.05 H (0.00-0.03) X10*3/uL Absolute Neuts (auto) 10.1 H 10.8 H (2.0-8.3) x10*3/uL Absolute Nucleated RBC 0.000 0.000 (0.0-0.012) X10*3/uL Nucleated RBC % (auto) 0.0 0.0 (0.0-0.2) /100WBC Smear Tech's Comments VERIFIED Sodium 138 141 (135-145) mmol/L Potassium 3.9 3.7 (3.3-5.1) mmol/L Chloride 108 107 (96-108) mmol/L Carbon Dioxide 22 25 (22-29) mmol/L Anion Gap 12 13 (12-20) BUN 21 H 21 H (9-16) mg/dL Creatinine 0.64 0.63 (0.5-1.4) mg/dL Estim Creat Clear Calc 182.1 185.0 Estimated GFR > 60 > 60 Random Glucose 91 96 (60-115) mg/dL Lactic Acid 0.7 (0.5-2.0) mmol/L Calcium 9.1 D 9.0 (8.4-10.2) mg/dL Total Bilirubin 0.2 0.2 (0.0-1.0) mg/dL AST 35 31 (5-37) U/L ALT 12 15 (0-40) U/L Alkaline Phosphatase 82 84 (39-117) U/L Total Protein 7.3 7.2 (6.5-8.0) g/dL Albumin 3.9 3.9 (3.5-5.0) g/dL Stool Occult Blood NEGATIVE (NEGATIVE) Salicylates < 5.0 L < 5.0 L (15-30) mg/dL Acetaminophen < 3 (<30) mcg/mL Ethyl Alcohol < 10 < 10 mg/dL Blood Type O Positive Antibody Screen NEGATIVE Crossmatch See Detail Critical Care Time Critical Care Time Critical Care Time: Yes Total Critical Care Time: 30 Attestation: I Susan Velásquez PA-C have personally performed 30 minutes of critical care time not including lines and procedures; sepsis evaluation, IV antibiotics, critical anemia requiring transfusion Discharge Plan Discharge Clinical Impression: Drug overdose, Microcytic anemia, Arm ulcer, Cellulitis Patient Disposition: Admitted As Inpatient Print Language: Vincentian
--- NOTE | 2025-03-02 00:49 | PM.IMHP ---
History of Present Illness Date of Service: 03/02/25 Attending physician on admission: Dominic Valderrama Chief Complaint: OD Patient is a 34-year-old male with a past medical history significant for polysubstance use including IV cocaine and heroin, chronic wounds in the upper extremities previously followed by wound care, ?epileptic disorder, history of MRSA bacteremia and mild intermittent asthma, who presented to the ED due to an overdose. the pt received 8mg intranasal narcan with response. Pt complained of bilateral leg pain, 10/10 and SOB. he admitted to using IV fentanyl. the pt is obtunded and did not wake for H&P. w/u in ED withleukocytosis and anemia with chronic bilateral UE wounds with superimposed infection. hgb 6.9, negative stool guiac. Review of Systems Review of Systems: Yes Unobtainable due to mental condition PMFSH Medical History Bacteremia Arm ulcer MRSA bacteremia Suicidal ideation Depression Cocaine use with cocaine-induced disorder Opiate dependence, continuous Major depressive disorder, recurrent severe without psychotic features Depression Anxiety IVDU (intravenous drug user) Asthma Family History Father Heart disease Surgical History History of surgery on right wrist History of surgery (10/02/24) Social History Household Members: Unknown / Unable to assess Household Members Other:: mother Housing: Unknown / Unable to assess Housing Other:: lives with parents Are you a primary daycare provider to a significant other at home: No Do you presently have visiting nurse or other home services: No Alcohol intake: unknown Comment: COUNTS CORRECT Patient Tobacco Use Status: Current everyday Tobacco user Tobacco use type: Cigarette Cigarette Packs Per Day: 1 Cigarettes Per Day: 20.0 Years Smoked: 15 Smoked in Last 30 Days: Yes e-Cigarette/Vaping Use: Never Used Second Hand Smoke Exposure: No Use of substances other than those prescribed or required for medical reasons: Yes Substance Use Type: Other Substance Use Type Other:: fentanyl Substance Use Frequency: Daily Last Used Substance: Just Prior to Admission Advance Directives: No Advance Directives Information Provided: No Advance Directives Date on File: 01/30/21 Do you have a plan to hurt others: No Plan service: No Current occupational status: unemployed Sexual orientation: Straight/Heterosexual Meds Allergies Allergy/AdvReac Type Severity Reaction Status Date / Time Pertussis Vaccines Allergy Mild HIVES Verified 03/01/25 19:03 (PERTUSSIS VACCINES) haloperidol (From Haldol) Allergy Anaphylaxis Verified 03/01/25 19:03 Active Medications: Current Medications Acetaminophen (Acetaminophen 325 Mg Tablet) 650 mg PO Q6H PRN PRN Reason: Pain, Mild 1-3,fever,headache Calcium Carbonate (Calcium Carbonate 750 Mg Tab.Chew) 750 mg PO Q4H PRN PRN Reason: Heartburn Morphine Sulfate (Morphine Sulfate 4 Mg/Ml Cartridge) 2 mg IVPUSH Q4H PRN; Protocol PRN Reason: Pain, Severe (Pain Scale 7-10) Nicotine (Nicotine 21 Mg Patch.Td24) 21 mg TRANSDERMA DAILY SUKHDEEP Ondansetron HCl (Ondansetron Hcl 4 Mg/2 Ml Vial) 4 mg IVPUSH Q8H PRN PRN Reason: Nausea and Vomiting Oxycodone HCl (Oxycodone Hcl Immed Release 5 Mg Tablet) 5 mg PO Q6H PRN PRN Reason: Pain, Moderate(Pain Scale 4-6) Polyethylene Glycol (Polyethylene Glycol 3350 17 Gm Powd.Pack) 17 gm PO DAILY PRN PRN Reason: Constipation Home Medications ?Medication ?Instructions ?Recorded ?Confirmed ?Last Taken ?Type methadone 10 mg/mL oral 170 mg PO DAILY 10/13/23 02/02/25 01/31/25 05:57 History concentrate (Methadone Intensol) clonazepam 1 mg tablet 1 mg PO TID 02/28/24 02/01/25 02/27/24 20:00 History clonidine HCl 0.1 mg tablet 0.1 mg PO TID 02/28/24 02/01/25 02/27/24 20:00 History gabapentin 300 mg capsule 300 mg PO BEDTIME 02/28/24 02/01/25 02/26/24 21:00 History gabapentin 600 mg tablet 600 mg PO TID 02/28/24 02/01/25 02/27/24 17:00 History mirtazapine 7.5 mg tablet 7.5 mg PO BEDTIME 02/28/24 02/01/25 02/26/24 21:00 History quetiapine 100 mg tablet 100 - 200 mg PO BEDTIME PRN 02/28/24 02/01/25 Unknown History Insomnia escitalopram oxalate 10 mg tablet 10 mg PO QAM 02/01/25 02/01/25 Unknown History Physical Exam Vital Signs and Narrative: Vital Signs: Last Vital Signs Temp 97.9 F 03/02/25 00:25 Pulse 70 03/02/25 00:25 Resp 14 03/02/25 00:25 BP 98/43 L 03/02/25 00:25 Pulse Ox 98 03/01/25 23:44 O2 Del Method Room Air 03/01/25 23:44 BMI result Body Mass Index 29.9 General: obtunded, NAD Resp: CTA bilaterally CVS: RRR +murmur GI: +BS, NT, no distention Skin: Warm, dry. bilateral UE wounds, just dressed by ED. see photos in ED note. Neuro: Cranial nerves II-XII grossly intact bilaterally. Motor grossly intact bilaterally Extremities: No LE edema Psych: Appropriate affect Results Labs 03/01/25 20:58 03/01/25 20:58 Labs: Laboratory Results - last 24 hr 03/01/25 03/01/25 03/01/25 20:08 20:58 21:32 MCV 58.0 L 58.1 L MCH 16.5 L 16.9 L MCHC 28.4 L 29.1 L RDW 16.7 H 16.7 H Plt Count 307 408 H D MPV 10.1 9.4 Immature Gran % (Auto) 0.4 0.4 Neut % (Auto) 85.6 H 88.7 H Lymph % (Auto) 8.0 L 5.8 L Mason % (Auto) 4.8 4.4 Eos % (Auto) 1.0 0.5 Baso % (Auto) 0.2 0.2 Lymph # (Auto) 1.0 L 0.7 L Mason # (Auto) 0.6 0.5 Eos # (Auto) 0.1 0.1 Baso # (Auto) 0.0 0.0 Abs Immat Gran (auto) 0.05 H 0.05 H Absolute Neuts (auto) 10.1 H 10.8 H Absolute Nucleated RBC 0.000 0.000 Nucleated RBC % (auto) 0.0 0.0 Smear Tech's Comments VERIFIED Anion Gap 12 13 Estim Creat Clear Calc 182.1 185.0 Estimated GFR > 60 > 60 Random Glucose 91 96 Lactic Acid 0.7 Calcium 9.1 D 9.0 Total Bilirubin 0.2 0.2 AST 35 31 ALT 12 15 Alkaline Phosphatase 82 84 Total Protein 7.3 7.2 Albumin 3.9 3.9 Stool Occult Blood NEGATIVE Salicylates < 5.0 L < 5.0 L Acetaminophen < 3 Ethyl Alcohol < 10 < 10 Blood Type O Positive Antibody Screen NEGATIVE Crossmatch See Detail Assessment and Plan (1) Drug overdose: Status: Acute (2) Acute encephalopathy: Status: Acute (3) Bacterial skin infection of upper extremity: Status: Acute (4) Chronic wound: Status: Acute (5) Microcytic anemia: Status: Acute (6) Polysubstance abuse: Status: Acute Plan Patient is a 34-year-old male with a past medical history significant for polysubstance use including IV cocaine and heroin, chronic wounds in the upper extremities previously followed by wound care, ?epileptic disorder, history of MRSA bacteremia and mild intermittent asthma, who presented to the ED due to an overdose. acute toxic encephalopathy secondary to drug overdose, IV fentanyl - received 8mg intranasal narcan with response, currently obtunded RR 10-12. not hypoxic. - give additional 4mg intranasal narcan - addiction med consult - Utox not yet done - monitor RR chronic bilateral UE wounds with superimposed infection - WBC 12.2, vitals stable, lactic acid normal, blood culturesx2 pending, no sepsis - bilateral UE CTs: Skin changes and subcutaneous edema without evidence of drainable abscess. Given limitations, ultrasound may better evaluate for subtle fluid pockets. - started on vancomycin and zosyn in ED, continue - ID, vascular, and wound care consults - appreciate specialist input on bilateral UE US - monitor CBC and BMP acute on chronic microcytic anemia - hgb 6.9, hct 23.7, mcv 58.1 - likely due to chronic UE wounds - FOBT negative - 2U PRBC ordered - A/P CT to r/o retroperitoneal bleed - monitor CBC B LE pain? - mention of BLE pain in triage note, not mentioned in ED provider note - pt unable to give history at this time - no tachycardia or hypoxia - re-evaluate when pt alert and able to give further history mild intermittent asthma, no acute exacerbation - albuterol PRN tobacco use disorder - nicotine patch - smoking cessation encouraged full code VTE prophy: pneumoboots pending anemia eval Pt with overdose complicated by acute on chronic anemia requiring blood transfusion and chronic wounds with superimposed infection, requiring admission for at least 2 midnights stay for IV abx, consultations and monitoring. Quality Stroke Does the patient have a stroke diagnosis?: No VTE Prior VTE?: No VTE Risk Level:: Medical - moderate - high VTE Device Contraindication: N/A - Device Ordered VTE Drug Contraindication: Treatment Not Indicated
[2025-03-02] MEDS: Naloxone HCl Nasal 4 MG SPRAY NOSTRILALT (01:46)
--- NOTE | 2025-03-02 02:51 | PC.NURSE ---
bladder scanned patient for greater than 695 attempted to straight cath with 16 [place] there was resistance and blood, attempted 2nd time with 16 [place] and still unable to obtain urine and blood clots around tube. inpatient Dr canela
--- NOTE | 2025-03-02 03:03 | PM.EVENT ---
Event Note Date of Service: 03/02/25 Event Note: initally pt did not respond to intranasal narcan per nurse after >15 minutes pt woke. now responsive. pupils dilated. tremulous. pt admits to IV heroin. aside from chills he is currently asx. RR improved to 22. no chest pain, SOB, nausea, vomting, abd pain or urinary sx. has not urinated since arrival. bladder scan with 695. straight cath unsuccessful with resistance and blood. urology consult placed and order for bo catheter. Time Spent With Patient Time: Total time managing care of this patient today ____ minutes.
--- NOTE | 2025-03-02 03:22 | PC.NURSE ---
assembler crimper Jasmin attempted to place catheter, unsuccessful, patient very uncomfortable and clots seen in catheter tip
[2025-03-02 04:30] LABS: Cannabinoid Screen Urine Not Detected (Not Detect)
[2025-03-02 05:18] LABS: MANUAL DIFF FLAG NO
[2025-03-02 05:21] LABS: Hematocrit 27.8 % (42.0-52.0); Hemoglobin 8.4 g/dl (14.0-18.0); Imm Gran Abs Auto 0.04 X10*3/uL (0.00-0.03); Imm Gran Pct Auto 0.6 % (0.0-0.4); Lymphocytes Absolute Auto 1.0 X10*3/uL (1.2-4.9); Mean Corpuscular HGB Conc 30.2 g/dl (31.0-36.0); Mean Corpuscular Hemoglobin 18.6 pg (27.0-33.0); NRBC Abs Auto 0.000 X10*3/uL (0.0-0.012); NRBC Pct Auto 0.0 /100WBC (0.0-0.2); Platelet Count 375 X10*3/uL (160-400); Red Blood Count 4.51 X10*6/uL (4.60-5.80); White Blood Count 7.2 X10*3/uL (4.8-10.8)
[2025-03-02 05:28] LABS: Mean Corpuscular Volume 61.6 fL (80.0-98.0)
[2025-03-02 05:50] LABS: Anion Gap 16 (12-20); Blood Urea Nitrogen 17 mg/dL (9-16); Calcium 8.6 mg/dL (8.4-10.2); Carbon Dioxide 19 mmol/L (22-29); Chloride 109 mmol/L (96-108); Creatinine Clr Calc Pharmacy 211.9; Estimated Glomerular Filt Rate > 60; Potassium 4.1 mmol/L (3.3-5.1); Sodium 140 mmol/L (135-145)
--- NOTE | 2025-03-02 07:38 | PHA.PROG ---
Admission Date/Time: March 02, 2025 00:41 Indication: skin + skin structure Weight in k.9 kg Adjusted body weight in Kg: [place] body weight in Kg: Obesity Dosing Indication % IBW: BMI 29.9 Serum Creatinine - Last 168 Hours 03/01/25 03/01/25 03/02/25 20:08 20:58 05:14 Creatinine 0.64 0.63 0.55 Estimated CrCl and GFR - Last 168 Hours 03/01/25 03/01/25 03/02/25 20:08 20:58 05:14 Estim Creat Clear Calc 182.1 185.0 211.9 Estimated GFR > 60 > 60 > 60 Vancomycin Loading Dose: 1500mg X1 Current Vancomycin Dosing Regimen: 1000mg Q8H Vancomycin Monitoring using AUC goal of 400 - 600 range with trough as surrogate marker: 552 Date and Time for next Vancomycin Level to be drawn: 03/03 @0600 Pharmacist Comments on Vancomycin Plan: Pt's renal function good but BMI high, loaded incorrectly so starting off more aggressive to target trough of 18.3 but will change as needed to adjust once patient is in range. Vancomycin dosing will take advantage of [employer] as a clinical decision support tool that uses Bayesian modeling to calculate individual patient's pharmacokinetic parameters and forecast the patient's drug concentration time course with the target goal AUC 24 range of 400 - 600 mg/L/hr.
--- NOTE | 2025-03-02 08:54 | PC.NURSE ---
pt sleeping, wakes to verbal stimuli briefly then goes back to sleep. RR 14, SpO2 99%. bo patent, draining clear yellow urine
--- NOTE | 2025-03-02 09:50 | P.PNIM_ITS ---
Subjective Subjective Date of Service: 03/02/25 Interval History: tired Physical Exam 2 Exam: Exam: lethargic, pale, oriented to self and place, poor insight, lungs clear Vital Signs: Vital Signs: Last Vital Signs Temp 98.1 F 03/02/25 06:05 Pulse 70 03/02/25 06:13 Resp 15 03/02/25 06:13 BP 111/66 03/02/25 06:13 Pulse Ox 98 03/02/25 06:13 O2 Del Method Room Air 03/02/25 06:05 BMI result Body Mass Index 29.9 Objective Data Active Medications Acetaminophen (Acetaminophen 325 Mg Tablet) 650 mg PO Q6H PRN PRN Reason: Pain, Mild 1-3,fever,headache Calcium Carbonate (Calcium Carbonate 750 Mg Tab.Chew) 750 mg PO Q4H PRN PRN Reason: Heartburn Clonazepam (Clonazepam 1 Mg Tablet) 1 mg PO TID SUKHDEEP Gabapentin (Gabapentin 300 Mg Capsule) 300 mg PO BEDTIME SUKHDEEP Gabapentin (Gabapentin 600 Mg Tablet) 600 mg PO TID SUKHDEEP Piperacillin Sod/Tazobactam (Sod 3.375 gm/ Sodium Chloride) 50 mls @ 100 mls/hr IV Q6H [facility] Last Infusion: 03/02/25 07:15 Dose: Infused Documented By: LILLIAM Vancomycin HCl 1,000 mg/ (Sodium Chloride) 270 mls @ 270 mls/hr IV Q8H [facility] Last Infusion: 03/02/25 09:44 Dose: Infused Documented By: LILLIAM Morphine Sulfate (Morphine Sulfate 4 Mg/Ml Cartridge) 2 mg IVPUSH Q4H PRN; Protocol PRN Reason: Pain, Severe (Pain Scale 7-10) Nicotine (Nicotine 21 Mg Patch.Td24) 21 mg TRANSDERMA DAILY [facility] Ondansetron HCl (Ondansetron Hcl 4 Mg/2 Ml Vial) 4 mg IVPUSH Q8H PRN PRN Reason: Nausea and Vomiting Oxycodone HCl (Oxycodone Hcl Immed Release 5 Mg Tablet) 5 mg PO Q6H PRN PRN Reason: Pain, Moderate(Pain Scale 4-6) Pharmacy Consult (Consult Rx Vancomycin Dosing) 1 each MISCELLANE DAILY PRN PRN Reason: Consult order Polyethylene Glycol (Polyethylene Glycol 3350 17 Gm Powd.Pack) 17 gm PO DAILY PRN PRN Reason: Constipation Labs 03/02/25 05:14 03/02/25 05:14 Labs: Laboratory Results - last 24 hr 03/01/25 03/01/25 03/01/25 20:08 20:58 21:32 MCV 58.0 L 58.1 L MCH 16.5 L 16.9 L MCHC 28.4 L 29.1 L RDW 16.7 H 16.7 H Plt Count 307 408 H D MPV 10.1 9.4 Immature Gran % (Auto) 0.4 0.4 Neut % (Auto) 85.6 H 88.7 H Lymph % (Auto) 8.0 L 5.8 L [place] % (Auto) 4.8 4.4 Eos % (Auto) 1.0 0.5 Baso % (Auto) 0.2 0.2 Lymph # (Auto) 1.0 L 0.7 L [place] # (Auto) 0.6 0.5 Eos # (Auto) 0.1 0.1 Baso # (Auto) 0.0 0.0 Abs Immat Gran (auto) 0.05 H 0.05 H Absolute Neuts (auto) 10.1 H 10.8 H Absolute Nucleated RBC 0.000 0.000 Nucleated RBC % (auto) 0.0 0.0 Smear Tech's Comments VERIFIED Anion Gap 12 13 Estim Creat Clear Calc 182.1 185.0 Estimated GFR > 60 > 60 Random Glucose 91 96 Lactic Acid 0.7 Calcium 9.1 D 9.0 Total Bilirubin 0.2 0.2 AST 35 31 ALT 12 15 Alkaline Phosphatase 82 84 Total Protein 7.3 7.2 Albumin 3.9 3.9 Stool Occult Blood NEGATIVE Salicylates < 5.0 L < 5.0 L Urine Opiates Screen Ur Buprenorphine Scrn Ur Oxycodone Screen Urine Methadone Screen Urine Fentanyl Screen Acetaminophen < 3 Ur Barbiturates Screen Ur Phencyclidine Scrn Ur Amphetamines Screen U Benzodiazepines Scrn Urine Cocaine Screen U Marijuana (THC) Screen Ethyl Alcohol < 10 < 10 Blood Type O Positive Antibody Screen NEGATIVE Crossmatch See Detail 03/02/25 03/02/25 04:12 05:14 MCV 61.6 L MCH 18.6 L MCHC 30.2 L RDW 20.3 H Plt Count 375 MPV 9.4 Immature Gran % (Auto) 0.6 H Neut % (Auto) 78.0 H Lymph % (Auto) 13.7 L [place] % (Auto) 7.1 Eos % (Auto) 0.3 Baso % (Auto) 0.3 Lymph # (Auto) 1.0 L [place] # (Auto) 0.5 Eos # (Auto) 0.0 Baso # (Auto) 0.0 Abs Immat Gran (auto) 0.04 H Absolute Neuts (auto) 5.6 Absolute Nucleated RBC 0.000 Nucleated RBC % (auto) 0.0 Smear Tech's Comments Anion Gap 16 Estim Creat Clear Calc 211.9 Estimated GFR > 60 Random Glucose 94 Lactic Acid Calcium 8.6 Total Bilirubin AST ALT Alkaline Phosphatase Total Protein Albumin Stool Occult Blood Salicylates Urine Opiates Screen POSITIVE H Ur Buprenorphine Scrn Not Detected Ur Oxycodone Screen Not Detected Urine Methadone Screen Positive H Urine Fentanyl Screen POSITIVE H Acetaminophen Ur Barbiturates Screen Not Detected Ur Phencyclidine Scrn Not Detected Ur Amphetamines Screen Not Detected U Benzodiazepines Scrn Not Detected Urine Cocaine Screen POSITIVE H U Marijuana (THC) Screen Not Detected Ethyl Alcohol Blood Type Antibody Screen Crossmatch Assessment and Plan (1) Polysubstance abuse: Status: Acute Plan 34M PMH polysubstance dependence, mood disorder, IV drug use, recent MRSA bacteremia, presented with altered mental status Acute toxic metabolic encephalopathy due to unintentional opiate overdose Mental status improving Addiction eval Recent MRSA bacteremia and chronic left upper extremity wounds with cellulitis Continue vancomycin and Zosyn and follow up repeat cultures Acute on chronic anemia Suspect combination of chronic iron-deficiency and inflammatory Severely microcytic ? Thalassemia Transfuse 2 units PRBC, monitor DVT prophylaxis - mechanical due to anemia Full code reason for continued hospitalization: Blood cultures pending Quality Stroke Does the patient have a stroke diagnosis?: No VTE Prior VTE?: No VTE Risk Level:: Medical - moderate - high VTE Device Contraindication: N/A - Device Ordered VTE Drug Contraindication: Treatment Not Indicated
--- NOTE | 2025-03-02 09:53 | PM.CNGS ---
History of Present Illness Consult details Consult date: 02/02/25 Requesting physician: Kal Ruiz Narrative: 34-year-old male patient well known to the service with history of IV drug use with bilateral upper extremity ulcerations. He previously underwent operative debridement of the bilateral arm ulceration on 10/02/2024 and 02/05/2025. He subsequently signed out AMA and has not followed up for wound care. He continues to use IV drugs including fentanyl. Surgical consultation was requested for possible debridement of bilateral arm ulceration. Review of Systems Review of Systems: Yes Unobtainable due to mental status PMFSH Past Medical History Medical History Bacteremia Arm ulcer MRSA bacteremia Suicidal ideation Depression Cocaine use with cocaine-induced disorder Opiate dependence, continuous Major depressive disorder, recurrent severe without psychotic features Depression Anxiety IVDU (intravenous drug user) Asthma Family History Family History Father Heart disease Surgical History Surgical History History of surgery on right wrist History of surgery (10/02/24) Social History Social History Household Members: Unknown / Unable to assess Household Members Other:: mother Housing: Unknown / Unable to assess Housing Other:: lives with parents Are you a primary day care supervisor to a significant other at home: No Do you presently have visiting nurse or other home services: No Alcohol intake: unknown Comment: COUNTS CORRECT Patient Tobacco Use Status: Current everyday Tobacco user Tobacco use type: Cigarette Cigarette Packs Per Day: 1 Cigarettes Per Day: 20.0 Years Smoked: 15 Smoked in Last 30 Days: Yes e-Cigarette/Vaping Use: Never Used Second Hand Smoke Exposure: No Use of substances other than those prescribed or required for medical reasons: Yes Substance Use Type: Other Substance Use Type Other:: fentanyl Substance Use Frequency: Daily Last Used Substance: Just Prior to Admission Advance Directives: No Advance Directives Information Provided: No Advance Directives Date on File: 01/30/21 Do you have a plan to hurt others: No Plan service: No Current occupational status: unemployed Sexual orientation: Straight/Heterosexual Meds Allergies Allergy/AdvReac Type Severity Reaction Status Date / Time Pertussis Vaccines Allergy Mild HIVES Verified 03/01/25 19:03 (PERTUSSIS VACCINES) haloperidol (From Haldol) Allergy Anaphylaxis Verified 03/01/25 19:03 Active Medications: Current Medications Acetaminophen (Acetaminophen 325 Mg Tablet) 650 mg PO Q6H PRN PRN Reason: Pain, Mild 1-3,fever,headache Calcium Carbonate (Calcium Carbonate 750 Mg Tab.Chew) 750 mg PO Q4H PRN PRN Reason: Heartburn Clonazepam (Clonazepam 1 Mg Tablet) 1 mg PO TID [facility] Gabapentin (Gabapentin 300 Mg Capsule) 300 mg PO BEDTIME [facility] Gabapentin (Gabapentin 600 Mg Tablet) 600 mg PO TID [facility] Piperacillin Sod/Tazobactam (Sod 3.375 gm/ Sodium Chloride) 50 mls @ 100 mls/hr IV Q6H [facility] Last Infusion: 03/02/25 07:15 Dose: Infused Vancomycin HCl 1,000 mg/ (Sodium Chloride) 270 mls @ 270 mls/hr IV Q8H [facility] Last Infusion: 03/02/25 09:44 Dose: Infused Morphine Sulfate (Morphine Sulfate 4 Mg/Ml Cartridge) 2 mg IVPUSH Q4H PRN; Protocol PRN Reason: Pain, Severe (Pain Scale 7-10) Nicotine (Nicotine 21 Mg Patch.Td24) 21 mg TRANSDERMA DAILY [facility] Ondansetron HCl (Ondansetron Hcl 4 Mg/2 Ml Vial) 4 mg IVPUSH Q8H PRN PRN Reason: Nausea and Vomiting Oxycodone HCl (Oxycodone Hcl Immed Release 5 Mg Tablet) 5 mg PO Q6H PRN PRN Reason: Pain, Moderate(Pain Scale 4-6) Pharmacy Consult (Consult Rx Vancomycin Dosing) 1 each MISCELLANE DAILY PRN PRN Reason: Consult order Polyethylene Glycol (Polyethylene Glycol 3350 17 Gm Powd.Pack) 17 gm PO DAILY PRN PRN Reason: Constipation Home Medications ?Medication ?Instructions ?Recorded ?Confirmed ?Last Taken ?Type methadone 10 mg/mL oral 170 mg PO DAILY 10/13/23 02/02/25 01/31/25 05:57 History concentrate (Methadone Intensol) clonazepam 1 mg tablet 1 mg PO TID 02/28/24 02/01/25 02/27/24 20:00 History clonidine HCl 0.1 mg tablet 0.1 mg PO TID 02/28/24 02/01/25 02/27/24 20:00 History gabapentin 300 mg capsule 300 mg PO BEDTIME 02/28/24 02/01/25 02/26/24 21:00 History gabapentin 600 mg tablet 600 mg PO TID 02/28/24 02/01/25 02/27/24 17:00 History mirtazapine 7.5 mg tablet 7.5 mg PO BEDTIME 02/28/24 02/01/25 02/26/24 21:00 History quetiapine 100 mg tablet 100 - 200 mg PO BEDTIME PRN 02/28/24 02/01/25 Unknown History Insomnia escitalopram oxalate 10 mg tablet 10 mg PO QAM 02/01/25 02/01/25 Unknown History Physical Exam Vital Signs: Vital Signs: Last Vital Signs Temp 98.1 F 03/02/25 06:05 Pulse 70 03/02/25 06:13 Resp 15 03/02/25 06:13 BP 111/66 03/02/25 06:13 Pulse Ox 98 03/02/25 06:13 O2 Del Method Room Air 03/02/25 06:05 BMI result Body Mass Index 29.9 Const: General: patient obtunded and poor hygiene Nutritional Appearance: thin Orientation/consciousness: patient obtunded HEENT: Head: Yes normocephalic and Yes atraumatic Resp: Effort & Inspection: normal respiratory effort, no audible wheezes, no cough and no respiratory distress Skin: Other: See extremities below Neuro: General: patient obtunded Extrem: Other: Bilateral upper extremity ulceration including left arm with extensive ulceration with crusted epidermal lesions but underlying granulation tissue. To a lesser degree the right arm has a small area of ulceration which is essentially unchanged from previous examinations. Wounds were dressed with Xeroform and dry sterile dressings. Results Labs 03/02/25 05:14 03/02/25 05:14 Labs: Abnormal lab results 03/01/25 03/01/25 03/02/25 Range/Units 20:08 20:58 04:12 WBC 11.8 H 12.2 H (4.8-10.8) X10*3/uL RBC 4.19 L 4.08 L (4.60-5.80) X10*6/uL Hgb 6.9 L* 6.9 L* (14.0-18.0) g/dl Hct 24.3 L 23.7 L (42.0-52.0) % MCV 58.0 L 58.1 L (80.0-98.0) fL MCH 16.5 L 16.9 L (27.0-33.0) pg MCHC 28.4 L 29.1 L (31.0-36.0) g/dl RDW 16.7 H 16.7 H (11.0-16.0) % Plt Count 408 H D (160-400) X10*3/uL Immature Gran % (Auto) (0.0-0.4) % Neut % (Auto) 85.6 H 88.7 H (45-73) % Lymph % (Auto) 8.0 L 5.8 L (20-40) % Lymph # (Auto) 1.0 L 0.7 L (1.2-4.9) X10*3/uL Abs Immat Gran (auto) 0.05 H 0.05 H (0.00-0.03) X10*3/uL Absolute Neuts (auto) 10.1 H 10.8 H (2.0-8.3) x10*3/uL Chloride (96-108) mmol/L Carbon Dioxide (22-29) mmol/L BUN 21 H 21 H (9-16) mg/dL Salicylates < 5.0 L < 5.0 L (15-30) mg/dL Urine Opiates Screen POSITIVE H (Not Detect) Urine Methadone Screen Positive H (Not Detect) ng/mL Urine Fentanyl Screen POSITIVE H (Not Detect) Urine Cocaine Screen POSITIVE H (Not Detect) Crossmatch See Detail 03/02/25 Range/Units 05:14 WBC (4.8-10.8) X10*3/uL RBC 4.51 L (4.60-5.80) X10*6/uL Hgb 8.4 L D (14.0-18.0) g/dl Hct 27.8 L (42.0-52.0) % MCV 61.6 L (80.0-98.0) fL MCH 18.6 L (27.0-33.0) pg MCHC 30.2 L (31.0-36.0) g/dl RDW 20.3 H (11.0-16.0) % Plt Count (160-400) X10*3/uL Immature Gran % (Auto) 0.6 H (0.0-0.4) % Neut % (Auto) 78.0 H (45-73) % Lymph % (Auto) 13.7 L (20-40) % Lymph # (Auto) 1.0 L (1.2-4.9) X10*3/uL Abs Immat Gran (auto) 0.04 H (0.00-0.03) X10*3/uL Absolute Neuts (auto) (2.0-8.3) x10*3/uL Chloride 109 H (96-108) mmol/L Carbon Dioxide 19 L (22-29) mmol/L BUN 17 H (9-16) mg/dL Salicylates (15-30) mg/dL Urine Opiates Screen (Not Detect) Urine Methadone Screen (Not Detect) ng/mL Urine Fentanyl Screen (Not Detect) Urine Cocaine Screen (Not Detect) Crossmatch Short CBC 03/01/25 03/01/25 03/02/25 Range/Units 20:08 20:58 05:14 WBC 11.8 H 12.2 H 7.2 (4.8-10.8) X10*3/uL Hgb 6.9 L* 6.9 L* 8.4 L D (14.0-18.0) g/dl Hct 24.3 L 23.7 L 27.8 L (42.0-52.0) % Plt Count 307 408 H D 375 (160-400) X10*3/uL BMP 03/01/25 03/01/25 03/02/25 20:08 20:58 05:14 Sodium 138 141 140 Potassium 3.9 3.7 4.1 Chloride 108 107 109 H Carbon Dioxide 22 25 19 L BUN 21 H 21 H 17 H Creatinine 0.64 0.63 0.55 Calcium 9.1 D 9.0 8.6 Liver Function 03/01/25 03/01/25 Range/Units 20:08 20:58 Total Bilirubin 0.2 0.2 (0.0-1.0) mg/dL AST 35 31 (5-37) U/L ALT 12 15 (0-40) U/L Alkaline Phosphatase 82 84 (39-117) U/L Albumin 3.9 3.9 (3.5-5.0) g/dL All other labs normal. Assessment and Plan (1) Arm ulcer: Qualifiers: Non-pressure ulcer stage: unspecified non-pressure ulcer stage Qualified Code(s): L98.499 - Non-pressure chronic ulcer of skin of other sites with unspecified severity Status: Acute (2) Chronic wound: Status: Acute Plan 34-year-old male patient presenting with bilateral upper extremity skin ulceration from IV drug use. Previous debridements most recently performed on 02/05/2025 revealed mainly crusted epidermal lesions bilaterally but overall the underlying wounds are granulating. Recommend continuing local wound care. No surgical intervention is recommended at this time. Procedures Date of Service Date of Service: 03/02/25
--- NOTE | 2025-03-02 10:16 | PC.NURSE ---
Held clonozapam and gabapentin due to pt being very sleepy
--- NOTE | 2025-03-02 12:32 | PHA.MEDREC ---
Addendum entered by Shayy Webber RPh 03/02/25 12:43: reviewed by [facility]. Original Note: Pharmacy Consult ? Medication Reconciliation Pharmacy has completed the medication reconciliation. Used claim history to confirm medications. [facility] doxepin has not been picked up yet. Doxycycline has been picked up, added to med rec (filled 02/26 x 10 DS). Gave RN phone number for Andi to confirm methadone .
--- NOTE | 2025-03-02 15:18 | MHC.RECOVRN ---
Attempted to meet with pt x2, however pt somnolent, unable to meaningfully participate in discussion, not opening eyes, however overall does not appear to be in any acute discomfort, respirations are even. Will attempt to meet with pt again at a later time.
[2025-03-02] MEDS: oxyCODONE HCl Immed Release 5 MG TABLET PO (18:04)
[2025-03-03 03:31] VITALS: BP 145/74; PULSE 57; RESP 16; TEMP 36.9; O2SAT 98
[2025-03-03 06:58] LABS: Anion Gap 15 (12-20); Blood Urea Nitrogen 13 mg/dL (9-16); Calcium 8.6 mg/dL (8.4-10.2); Carbon Dioxide 21 mmol/L (22-29); Chloride 109 mmol/L (96-108); Creatinine Clr Calc Pharmacy 200.6; Estimated Glomerular Filt Rate > 60; Potassium 3.5 mmol/L (3.3-5.1); Sodium 141 mmol/L (135-145)
--- NOTE | 2025-03-03 07:11 | HE.PHANOTE ---
RE VANCO DOSING INCREASING DOSE TO 1250 Q8 HOURS HOPING TO ACHIEVE GREATER TROUGH AND AUC. WILL RECHECK TROUGH 03/04 @0600. EXPECTED AUC 526 AND TROUGH 15.8.
[2025-03-03 08:00] VITALS: BP 136/73; PULSE 56; RESP 16; TEMP 37.6; O2SAT 99
[2025-03-03 08:42] LABS: Hematocrit 27.7 % (42.0-52.0); Hemoglobin 8.3 g/dl (14.0-18.0); Imm Gran Abs Auto 0.05 X10*3/uL (0.00-0.03); Imm Gran Pct Auto 0.7 % (0.0-0.4); Lymphocytes Absolute Auto 1.3 X10*3/uL (1.2-4.9); MANUAL DIFF FLAG SCAN; Mean Corpuscular HGB Conc 30.0 g/dl (31.0-36.0); Mean Corpuscular Hemoglobin 18.4 pg (27.0-33.0); Mean Corpuscular Volume 61.3 fL (80.0-98.0); NRBC Abs Auto 0.020 X10*3/uL (0.0-0.012); NRBC Pct Auto 0.3 /100WBC (0.0-0.2); PLT CLUMP 1; Red Blood Count 4.52 X10*6/uL (4.60-5.80); SCAN SMEAR FLAG 1; White Blood Count 7.0 X10*3/uL (4.8-10.8)
--- NOTE | 2025-03-03 08:49 | P.PNIM_ITS ---
Subjective Subjective Date of Service: 03/03/25 Interval History: tired Physical Exam 2 Vital Signs: Vital Signs: Last Vital Signs Temp 99.6 F 03/03/25 08:00 Pulse 56 03/03/25 08:00 Resp 16 03/03/25 08:00 BP 136/73 03/03/25 08:00 Pulse Ox 99 03/03/25 08:00 O2 Del Method Room Air 03/03/25 08:00 BMI result Body Mass Index 29.8 Const: General: patient obtunded and poor hygiene Nutritional Appearance: t hin Orientation/consciousness: patient obtunded HEENT: Head: Yes normocephalic and Yes atraumatic Resp: Effort & Inspection: normal respiratory effort, no audible wheezes, no cough and no respiratory distress Skin: Other: See extremities below Neuro: General: patient obtunded Extrem: Other: Bilateral upper extremity ulceration including left arm with extensive ulceration with crusted epidermal lesions but underlying granulation tissue. To a lesser degree the right arm has a small area of ulceration which is essentially unchanged from previous examinations. Wounds were dressed with Xeroform and dry sterile dressings. Objective Data Active Medications Acetaminophen (Acetaminophen 325 Mg Tablet) 650 mg PO Q6H PRN PRN Reason: Pain, Mild 1-3,fever,headache Calcium Carbonate (Calcium Carbonate 750 Mg Tab.Chew) 750 mg PO Q4H PRN PRN Reason: Heartburn Clonazepam (Clonazepam 1 Mg Tablet) 1 mg PO TID [facility] Last Admin: 03/02/25 21:17 Dose: 1 mg Documented By: TRISTAN Clonidine HCl (Clonidine Hcl 0.1 Mg Tablet) 0.1 mg PO TID [facility]; Protocol Last Admin: 03/02/25 21:18 Dose: 0.1 mg Documented By: TRISTAN Escitalopram Oxalate (Escitalopram Oxalate 10 Mg Tablet) 10 mg PO DAILY [facility] Gabapentin (Gabapentin 300 Mg Capsule) 300 mg PO BEDTIME [facility] Last Admin: 03/02/25 21:17 Dose: 300 mg Documented By: TRISTAN Gabapentin (Gabapentin 600 Mg Tablet) 600 mg PO TID [facility] Last Admin: 03/02/25 21:17 Dose: 600 mg Documented By: TRISTAN Piperacillin Sod/Tazobactam (Sod 3.375 gm/ Sodium Chloride) 50 mls @ 100 mls/hr IV Q6H [facility] Last Infusion: 03/03/25 06:09 Dose: Infused Documented By: TRISTAN Vancomycin HCl 1,250 mg/ (Sodium Chloride) 250 mls @ 166.667 mls/hr IV Q8H [facility] Mirtazapine (Mirtazapine 7.5 Mg Tablet) 7.5 mg PO BEDTIME [facility] Last Admin: 03/02/25 21:17 Dose: 7.5 mg Documented By: TRISTAN Morphine Sulfate (Morphine Sulfate 4 Mg/Ml Cartridge) 2 mg IVPUSH Q4H PRN; Protocol PRN Reason: Pain, Severe (Pain Scale 7-10) Nicotine (Nicotine 21 Mg Patch.Td24) 21 mg TRANSDERMA DAILY [facility] Last Admin: 03/02/25 10:16 Dose: Not Given Documented By: [place] Non-Admin Reason: Patient Asleep Ondansetron HCl (Ondansetron Hcl 4 Mg/2 Ml Vial) 4 mg IVPUSH Q8H PRN PRN Reason: Nausea and Vomiting Oxycodone HCl (Oxycodone Hcl Immed Release 5 Mg Tablet) 5 mg PO Q6H PRN PRN Reason: Pain, Moderate(Pain Scale 4-6) Last Admin: 03/02/25 18:04 Dose: 5 mg Documented By: DEANDRE Pharmacy Consult (Consult Rx Vancomycin Dosing) 1 each MISCELLANE DAILY PRN PRN Reason: Consult order Polyethylene Glycol (Polyethylene Glycol 3350 17 Gm Powd.Pack) 17 gm PO DAILY PRN PRN Reason: Constipation Labs 03/02/25 05:14 03/03/25 06:21 Labs: Laboratory Results - last 24 hr 03/03/25 06:21 Anion Gap 15 Estim Creat Clear Calc 200.6 Estimated GFR > 60 Random Glucose 82 Calcium 8.6 Random Vancomycin 11.6 L Microbiology Microbiology Results: Microbiology 03/01/25 21:05 Blood Culture - Preliminary Blood - Venous No growth after 24 hours. 03/01/25 20:58 Blood Culture - Preliminary Blood - Venous No growth after 24 hours. Assessment and Plan (1) Polysubstance abuse: Status: Acute Plan 34M PMH polysubstance dependence, mood disorder, IV drug use, recent MRSA bacteremia, presented with altered mental status Acute toxic metabolic encephalopathy due to unintentional opiate overdose Mental status improving Addiction eval Recent MRSA bacteremia and chronic left upper extremity wounds with cellulitis Continue vancomycin and Zosyn and follow up repeat cultures - so far negative, follow up Id surgery aprpeciated - local care to wounds Acute on chronic anemia Suspect combination of chronic iron-deficiency and inflammatory Severely microcytic ? Thalassemia Transfused 2 units PRBC, improved DVT prophylaxis - mechanical due to anemia Full code reason for continued hospitalization: iv abx Quality Stroke Does the patient have a stroke diagnosis?: No VTE Prior VTE?: No VTE Risk Level:: Medical - moderate - high VTE Device Contraindication: N/A - Device Ordered VTE Drug Contraindication: Treatment Not Indicated
[2025-03-03] MEDS: Nicotine 21 MG PATCH.TD24 TRANSDERMA (09:52)
--- NOTE | 2025-03-03 10:24 | HO.ADDICT_ITS ---
History of Present Illness Date of Service: 03/03/2025 Chief Complaint: anemia,OD Reason for Consult: OUD s/p overdose Sources of Information: patient interviewed and chart reviewed HPI Narrative: Patient is a 34 year old male with history of OUD and chronic wound of the arm -secondary to IVDU. Medically admitted following opioid overdose, microcytic anemia requiring transfusion, and chronic wound of BUE. Patient well know to t/w and ACS via previous admissions. He reports he has been using 2-3 bundles of fentanyl daily, and also taking his methadone consistently He states that he did purchase opiates from a different person this time, and this may be why OD occurred. He believes it may have been superman bags. T/w shared increase in overdoses over the last month, many reporting superman bags. Reporting some malaise as he has not received his methadone dose yet, otherwise feeling okay. Does not appear diaphoretic or restless. Reporting strong supports and connected to MV OTP Past Psychiatric History: hosps: 6-7 SA: reports 1, 5+ yrs ago, via intentional overdose on heroin SIB: denies HIB: denies Flo Strickland- psychiatric provider ([facility] in [place]) no therapist. Review of Systems Constitutional: Reports as per HPI and Reports no additional constitutional complaints Diagnostics Vital Signs (24Hr): Vital Signs - 24 hr 03/02/25 12:07 03/02/25 13:22 03/02/25 16:00 Temperature 98.4 F 98.9 F Pulse Rate 63 55 72 Respiratory Rate 13 18 18 Blood Pressure 101/38 L 132/63 138/65 Pulse Oximetry 97 98 97 Oxygen Delivery Method Room Air Room Air Room Air 03/02/25 19:11 03/02/25 21:18 03/02/25 23:13 Temperature 99.7 F 96.9 F Pulse Rate 73 51 Respiratory Rate 16 18 Blood Pressure 164/66 H 164/66 H 135/71 Pulse Oximetry 97 98 Oxygen Delivery Method Room Air Room Air 03/03/25 03:31 03/03/25 08:00 Temperature 98.4 F 99.6 F Pulse Rate 57 56 Respiratory Rate 16 16 Blood Pressure 145/74 H 136/73 Pulse Oximetry 98 99 Oxygen Delivery Method Room Air Room Air BMI result Body Mass Index 29.8 Labs 03/03/25 08:34 03/03/25 06:21 Labs: Laboratory Results - last 48 hr 03/01/25 03/01/25 03/01/25 20:08 20:58 21:32 WBC 11.8 H 12.2 H RBC 4.19 L 4.08 L Hgb 6.9 L* 6.9 L* Hct 24.3 L 23.7 L MCV 58.0 L 58.1 L MCH 16.5 L 16.9 L MCHC 28.4 L 29.1 L RDW 16.7 H 16.7 H Plt Count 307 408 H D MPV 10.1 9.4 Immature Gran % (Auto) 0.4 0.4 Neut % (Auto) 85.6 H 88.7 H Lymph % (Auto) 8.0 L 5.8 L [place] % (Auto) 4.8 4.4 Eos % (Auto) 1.0 0.5 Baso % (Auto) 0.2 0.2 Lymph # (Auto) 1.0 L 0.7 L [place] # (Auto) 0.6 0.5 Eos # (Auto) 0.1 0.1 Baso # (Auto) 0.0 0.0 Abs Immat Gran (auto) 0.05 H 0.05 H Absolute Neuts (auto) 10.1 H 10.8 H Absolute Nucleated RBC 0.000 0.000 Nucleated RBC % (auto) 0.0 0.0 Smear Tech's Comments VERIFIED Sodium 138 141 Potassium 3.9 3.7 Chloride 108 107 Carbon Dioxide 22 25 Anion Gap 12 13 BUN 21 H 21 H Creatinine 0.64 0.63 Estim Creat Clear Calc 182.1 185.0 Estimated GFR > 60 > 60 Random Glucose 91 96 Lactic Acid 0.7 Calcium 9.1 D 9.0 Total Bilirubin 0.2 0.2 AST 35 31 ALT 12 15 Alkaline Phosphatase 82 84 Total Protein 7.3 7.2 Albumin 3.9 3.9 Stool Occult Blood NEGATIVE Random Vancomycin Salicylates < 5.0 L < 5.0 L Urine Opiates Screen Ur Buprenorphine Scrn Ur Oxycodone Screen Urine Methadone Screen Urine Fentanyl Screen Acetaminophen < 3 Ur Barbiturates Screen Ur Phencyclidine Scrn Ur Amphetamines Screen U Benzodiazepines Scrn Urine Cocaine Screen U Marijuana (THC) Screen Ethyl Alcohol < 10 < 10 Blood Type O Positive Antibody Screen NEGATIVE Crossmatch See Detail 03/02/25 03/02/25 03/03/25 04:12 05:14 06:21 WBC 7.2 RBC 4.51 L Hgb 8.4 L D Hct 27.8 L MCV 61.6 L MCH 18.6 L MCHC 30.2 L RDW 20.3 H Plt Count 375 MPV 9.4 Immature Gran % (Auto) 0.6 H Neut % (Auto) 78.0 H Lymph % (Auto) 13.7 L [place] % (Auto) 7.1 Eos % (Auto) 0.3 Baso % (Auto) 0.3 Lymph # (Auto) 1.0 L [place] # (Auto) 0.5 Eos # (Auto) 0.0 Baso # (Auto) 0.0 Abs Immat Gran (auto) 0.04 H Absolute Neuts (auto) 5.6 Absolute Nucleated RBC 0.000 Nucleated RBC % (auto) 0.0 Smear Tech's Comments Sodium 140 141 Potassium 4.1 3.5 Chloride 109 H 109 H Carbon Dioxide 19 L 21 L Anion Gap 16 15 BUN 17 H 13 Creatinine 0.55 0.58 Estim Creat Clear Calc 211.9 200.6 Estimated GFR > 60 > 60 Random Glucose 94 82 Lactic Acid Calcium 8.6 8.6 Total Bilirubin AST ALT Alkaline Phosphatase Total Protein Albumin Stool Occult Blood Random Vancomycin 11.6 L Salicylates Urine Opiates Screen POSITIVE H Ur Buprenorphine Scrn Not Detected Ur Oxycodone Screen Not Detected Urine Methadone Screen Positive H Urine Fentanyl Screen POSITIVE H Acetaminophen Ur Barbiturates Screen Not Detected Ur Phencyclidine Scrn Not Detected Ur Amphetamines Screen Not Detected U Benzodiazepines Scrn Not Detected Urine Cocaine Screen POSITIVE H U Marijuana (THC) Screen Not Detected Ethyl Alcohol Blood Type Antibody Screen Crossmatch 03/03/25 08:34 WBC 7.0 RBC 4.52 L Hgb 8.3 L Hct 27.7 L MCV 61.3 L MCH 18.4 L MCHC 30.0 L RDW 20.7 H Plt Count TNP MPV TNP Immature Gran % (Auto) 0.7 H Neut % (Auto) 71.3 Lymph % (Auto) 18.8 L [place] % (Auto) 8.3 Eos % (Auto) 0.6 Baso % (Auto) 0.3 Lymph # (Auto) 1.3 [place] # (Auto) 0.6 Eos # (Auto) 0.0 Baso # (Auto) 0.0 Abs Immat Gran (auto) 0.05 H Absolute Neuts (auto) 5.0 Absolute Nucleated RBC 0.020 H Nucleated RBC % (auto) 0.3 H Smear Tech's Comments VERIFIED Sodium Potassium Chloride Carbon Dioxide Anion Gap BUN Creatinine Estim Creat Clear Calc Estimated GFR Random Glucose Lactic Acid Calcium Total Bilirubin AST ALT Alkaline Phosphatase Total Protein Albumin Stool Occult Blood Random Vancomycin Salicylates Urine Opiates Screen Ur Buprenorphine Scrn Ur Oxycodone Screen Urine Methadone Screen Urine Fentanyl Screen Acetaminophen Ur Barbiturates Screen Ur Phencyclidine Scrn Ur Amphetamines Screen U Benzodiazepines Scrn Urine Cocaine Screen U Marijuana (THC) Screen Ethyl Alcohol Blood Type Antibody Screen Crossmatch Mental Status Exam Mental Status Exam Patient Appearance: Appropriate Level of Consciousness: Awake, Appropriate and Alert Patient Behavior: Appropriate and Cooperative Affect Description: Appropriate Speech Pattern: Clear Hallucinations: None Thought Process: Intact Thought Content: positive for Intact Judgement: Fair Medications Medications Current Medications Acetaminophen (Acetaminophen 325 Mg Tablet) 650 mg PO Q6H PRN PRN Reason: Pain, Mild 1-3,fever,headache Calcium Carbonate (Calcium Carbonate 750 Mg Tab.Chew) 750 mg PO Q4H PRN PRN Reason: Heartburn Clonazepam (Clonazepam 1 Mg Tablet) 1 mg PO TID [facility] Last Admin: 03/03/25 09:43 Dose: 1 mg Clonidine HCl (Clonidine Hcl 0.1 Mg Tablet) 0.1 mg PO TID [facility]; Protocol Last Admin: 03/03/25 09:43 Dose: 0.1 mg Escitalopram Oxalate (Escitalopram Oxalate 10 Mg Tablet) 10 mg PO DAILY [facility] Last Admin: 03/03/25 09:42 Dose: 10 mg Gabapentin (Gabapentin 300 Mg Capsule) 300 mg PO BEDTIME [facility] Last Admin: 03/02/25 21:17 Dose: 300 mg Gabapentin (Gabapentin 600 Mg Tablet) 600 mg PO TID [facility] Last Admin: 03/03/25 09:43 Dose: 600 mg Piperacillin Sod/Tazobactam (Sod 3.375 gm/ Sodium Chloride) 50 mls @ 100 mls/hr IV Q6H [facility] Last Infusion: 03/03/25 06:09 Dose: Infused Vancomycin HCl 1,250 mg/ (Sodium Chloride) 250 mls @ 166.667 mls/hr IV Q8H [facility] Last Admin: 03/03/25 09:37 Dose: 166.67 mls/hr Mirtazapine (Mirtazapine 7.5 Mg Tablet) 7.5 mg PO BEDTIME [facility] Last Admin: 03/02/25 21:17 Dose: 7.5 mg Morphine Sulfate (Morphine Sulfate 4 Mg/Ml Cartridge) 2 mg IVPUSH Q4H PRN; Protocol PRN Reason: Pain, Severe (Pain Scale 7-10) Nicotine (Nicotine 21 Mg Patch.Td24) 21 mg TRANSDERMA DAILY [facility] Last Admin: 03/03/25 09:52 Dose: 21 mg Ondansetron HCl (Ondansetron Hcl 4 Mg/2 Ml Vial) 4 mg IVPUSH Q8H PRN PRN Reason: Nausea and Vomiting Oxycodone HCl (Oxycodone Hcl Immed Release 5 Mg Tablet) 5 mg PO Q6H PRN PRN Reason: Pain, Moderate(Pain Scale 4-6) Last Admin: 03/02/25 18:04 Dose: 5 mg Pharmacy Consult (Consult Rx Vancomycin Dosing) 1 each MISCELLANE DAILY PRN PRN Reason: Consult order Polyethylene Glycol (Polyethylene Glycol 3350 17 Gm Powd.Pack) 17 gm PO DAILY PRN PRN Reason: Constipation Allergies Allergies Allergy/AdvReac Type Severity Reaction Status Date / Time Pertussis Vaccines Allergy Mild HIVES Verified 03/01/25 19:03 (PERTUSSIS VACCINES) haloperidol (From Haldol) Allergy Anaphylaxis Verified 03/01/25 19:03 Assessment & Plan Assessment & Plan (1) Opioid use disorder: Status: Acute Code(s): F11.90 - Opioid use, unspecified, uncomplicated Assessment and Plan: * restart methadone * overdose prevention discussion * take home narcan at discharge * advertising designer to follow up Total time managing care of this patient today __35__ minutes. PMFSH Past Medical History Medical History Bacteremia Arm ulcer MRSA bacteremia Suicidal ideation Depression Cocaine use with cocaine-induced disorder Opiate dependence, continuous Major depressive disorder, recurrent severe without psychotic features Depression Anxiety IVDU (intravenous drug user) Asthma Family History Family History Father Heart disease Surgical History Surgical History History of surgery on right wrist History of surgery (10/02/24) Social History Social History Household Members: Family Household Members Other:: mother Housing: House Housing Other:: lives with parents Are you a primary care advocate to a significant other at home: No Do you presently have visiting nurse or other home services: No Alcohol intake: unknown Comment: COUNTS CORRECT Patient Tobacco Use Status: Current everyday Tobacco user Tobacco use type: Cigarette Cigarette Packs Per Day: 1 Cigarettes Per Day: 20.0 Years Smoked: 10 e-Cigarette/Vaping Use: Never Used Second Hand Smoke Exposure: Yes Substance Use Type: Other Advance Directives Date on File: 01/30/21 service: No Current occupational status: unemployed Sexual orientation: Straight/Heterosexual
--- NOTE | 2025-03-03 10:31 | PM.UROCN ---
History of Present Illness Consult details Consult date: 03/03/25 Narrative: Called to evaluate due to urinary retention. 34-year-old male with a history of polysubstance abuse, IV drug abuse, known microcytic anemia, mood disorder, depression, diabetes who presents after overdose. EMS was called to the home after his brother found him unconscious. He was given 8 mg total of intranasal Narcan, the patient then became responsive. h/o bilateral arm ulceration seen by gen surgery. Velásquez inserted. CTAP- no acute process Review of Systems Review of Systems: Yes all other systems are reviewed and are negative Constitutional: Constitutional: Reports no additional constitutional complaints Eyes: Eyes: Reports no additional eye complaints ENT: Reports system reviewed and no additional complaints, except as documented Cardiovascular: Cardiovascular: Reports no additional cardiovascular complaints Respiratory: Respiratory: Reports no additional respiratory complaints Gastrointestinal: Gastrointestinal: Reports no additional gastrointestinal complaints Genitourinary: Genitourinary: Reports as per HPI Musculoskeletal: Musculoskeletal: Reports no additional musculoskeletal complaints Integumentary/Breasts: Skin/Breast: Reports system reviewed and no additional complaints, except as docu Neurologic: Reports system reviewed and no additional complaints, except as documented Psychiatric: Psychiatric: Reports no additional psychiatric complaints Endocrine: Endocrine: Reports no additional endocrine complaints Hematologic/Lymphatic: Hematologic/Lymphatic: Reports no additional hematologic/lymphatic complaints Allergic/Immunologic: Allergic/Immunologic: Reports no additional allergic/immunologic complaints PMFSH Past Medical History Medical History Bacteremia Arm ulcer MRSA bacteremia Suicidal ideation Depression Cocaine use with cocaine-induced disorder Opiate dependence, continuous Major depressive disorder, recurrent severe without psychotic features Depression Anxiety IVDU (intravenous drug user) Asthma Family History Family History Father Heart disease Surgical History Surgical History History of surgery on right wrist History of surgery (10/02/24) Social History Social History Household Members: Family Household Members Other:: mother Housing: House Housing Other:: lives with parents Are you a primary care consultant to a significant other at home: No Do you presently have visiting nurse or other home services: No Alcohol intake: unknown Comment: COUNTS CORRECT Patient Tobacco Use Status: Current everyday Tobacco user Tobacco use type: Cigarette Cigarette Packs Per Day: 1 Cigarettes Per Day: 20.0 Years Smoked: 10 e-Cigarette/Vaping Use: Never Used Second Hand Smoke Exposure: Yes Substance Use Type: Other Advance Directives Date on File: 01/30/21 service: No Current occupational status: unemployed Sexual orientation: Straight/Heterosexual Meds Allergies Allergy/AdvReac Type Severity Reaction Status Date / Time Pertussis Vaccines Allergy Mild HIVES Verified 03/01/25 19:03 (PERTUSSIS VACCINES) haloperidol (From Haldol) Allergy Anaphylaxis Verified 03/01/25 19:03 Active Medications: Current Medications Acetaminophen (Acetaminophen 325 Mg Tablet) 650 mg PO Q6H PRN PRN Reason: Pain, Mild 1-3,fever,headache Calcium Carbonate (Calcium Carbonate 750 Mg Tab.Chew) 750 mg PO Q4H PRN PRN Reason: Heartburn Clonazepam (Clonazepam 1 Mg Tablet) 1 mg PO TID [facility] Last Admin: 03/03/25 09:43 Dose: 1 mg Clonidine HCl (Clonidine Hcl 0.1 Mg Tablet) 0.1 mg PO TID [facility]; Protocol Last Admin: 03/03/25 09:43 Dose: 0.1 mg Escitalopram Oxalate (Escitalopram Oxalate 10 Mg Tablet) 10 mg PO DAILY [facility] Last Admin: 03/03/25 09:42 Dose: 10 mg Gabapentin (Gabapentin 300 Mg Capsule) 300 mg PO BEDTIME [facility] Last Admin: 03/02/25 21:17 Dose: 300 mg Gabapentin (Gabapentin 600 Mg Tablet) 600 mg PO TID [facility] Last Admin: 03/03/25 09:43 Dose: 600 mg Piperacillin Sod/Tazobactam (Sod 3.375 gm/ Sodium Chloride) 50 mls @ 100 mls/hr IV Q6H [facility] Last Infusion: 03/03/25 06:09 Dose: Infused Vancomycin HCl 1,250 mg/ (Sodium Chloride) 250 mls @ 166.667 mls/hr IV Q8H [facility] Last Admin: 03/03/25 09:37 Dose: 166.67 mls/hr Mirtazapine (Mirtazapine 7.5 Mg Tablet) 7.5 mg PO BEDTIME [facility] Last Admin: 03/02/25 21:17 Dose: 7.5 mg Morphine Sulfate (Morphine Sulfate 4 Mg/Ml Cartridge) 2 mg IVPUSH Q4H PRN; Protocol PRN Reason: Pain, Severe (Pain Scale 7-10) Nicotine (Nicotine 21 Mg Patch.Td24) 21 mg TRANSDERMA DAILY [facility] Last Admin: 03/03/25 09:52 Dose: 21 mg Ondansetron HCl (Ondansetron Hcl 4 Mg/2 Ml Vial) 4 mg IVPUSH Q8H PRN PRN Reason: Nausea and Vomiting Oxycodone HCl (Oxycodone Hcl Immed Release 5 Mg Tablet) 5 mg PO Q6H PRN PRN Reason: Pain, Moderate(Pain Scale 4-6) Last Admin: 03/02/25 18:04 Dose: 5 mg Pharmacy Consult (Consult Rx Vancomycin Dosing) 1 each MISCELLANE DAILY PRN PRN Reason: Consult order Polyethylene Glycol (Polyethylene Glycol 3350 17 Gm Powd.Pack) 17 gm PO DAILY PRN PRN Reason: Constipation Home Medications ?Medication ?Instructions ?Recorded ?Confirmed ?Last Taken ?Type methadone 10 mg/mL oral 170 mg PO DAILY 10/13/23 02/02/25 01/31/25 05:57 History concentrate (Methadone Intensol) clonazepam 1 mg tablet 1 mg PO TID 02/28/24 03/02/25 02/27/24 20:00 History clonidine HCl 0.1 mg tablet 0.1 mg PO TID 02/28/24 03/02/25 02/27/24 20:00 History gabapentin 300 mg capsule 300 mg PO BEDTIME 02/28/24 03/02/25 02/26/24 21:00 History gabapentin 600 mg tablet 600 mg PO TID 02/28/24 03/02/25 02/27/24 17:00 History mirtazapine 7.5 mg tablet 7.5 mg PO BEDTIME 02/28/24 03/02/25 02/26/24 21:00 History quetiapine 100 mg tablet 100 - 200 mg PO BEDTIME PRN 02/28/24 03/02/25 Unknown History Insomnia escitalopram oxalate 10 mg tablet 10 mg PO DAILY 02/01/25 03/02/25 Unknown History doxycycline monohydrate 100 mg 100 mg PO BID 03/02/25 03/02/25 Unknown History tablet Physical Exam Vital Signs: Vital Signs: Last Vital Signs Temp 99.6 F 03/03/25 08:00 Pulse 56 03/03/25 08:00 Resp 16 03/03/25 08:00 BP 136/73 03/03/25 08:00 Pulse Ox 99 03/03/25 08:00 O2 Del Method Room Air 03/03/25 08:00 BMI result Body Mass Index 29.8 Results Labs 03/03/25 08:34 03/03/25 06:21 Labs: Abnormal lab results 03/03/25 03/03/25 Range/Units 06:21 08:34 RBC 4.52 L (4.60-5.80) X10*6/uL Hgb 8.3 L (14.0-18.0) g/dl Hct 27.7 L (42.0-52.0) % MCV 61.3 L (80.0-98.0) fL MCH 18.4 L (27.0-33.0) pg MCHC 30.0 L (31.0-36.0) g/dl RDW 20.7 H (11.0-16.0) % Immature Gran % (Auto) 0.7 H (0.0-0.4) % Lymph % (Auto) 18.8 L (20-40) % Abs Immat Gran (auto) 0.05 H (0.00-0.03) X10*3/uL Absolute Nucleated RBC 0.020 H (0.0-0.012) X10*3/uL Nucleated RBC % (auto) 0.3 H (0.0-0.2) /100WBC Chloride 109 H (96-108) mmol/L Carbon Dioxide 21 L (22-29) mmol/L Random Vancomycin 11.6 L (15-20) mcg/mL Short CBC 03/03/25 Range/Units 08:34 WBC 7.0 (4.8-10.8) X10*3/uL Hgb 8.3 L (14.0-18.0) g/dl Hct 27.7 L (42.0-52.0) % Plt Count TNP BMP 03/03/25 06:21 Sodium 141 Potassium 3.5 Chloride 109 H Carbon Dioxide 21 L BUN 13 Creatinine 0.58 Calcium 8.6 Imaging Additional studies: Date of Service: 03/02/25 CLINICAL HISTORY: r o retroperitoneal bleed - PT INJECTED ON PRIOR CT CT abdomen and pelvis without contrast. Patient received contrast at 8:00 p.m. Indication: Retroperitoneal bleed Comparison: CT/SR - UPPER EXTREMITIES FOREARM_WITH_IV (ADULT) - 03/01/25 21:47 EDT Findings: The lung bases are clear, given limitations of motion. Noncontrasted liver is normal. Gallbladder is distended. Spleen is normal. Pancreas is normal. Kidneys are imaged in the excretory phase from prior contrast administration. No ureteral lithiasis or hydroureter. Contrast is present within the bladder. Stomach is partially distended. Small bowel is normal. Moderate stool burden in the ascending, transverse, descending and sigmoid colon. The appendix is normal. No retroperitoneal collection. No presacral hematoma. Osseous structures are normal. Inguinal canals are normal. No bowel obstruction, pneumoperitoneum, or pneumatosis. No acute fracture. IMPRESSION: No acute intra-abdominal, pelvic, or retroperitoneal findings. Assessment and Plan (1) Urinary retention: Status: Acute Plan Patient denies prior issues with urination. Voiding trial once patient ambulatory Procedures Date of Service Date of Service: 03/03/25
--- NOTE | 2025-03-03 11:36 | MHC.CM.PN ---
PATIENT LIVES IN A HOME W/ HIS MOTHER. FUNCTIONALLY INDEPENDENT. DENIES USE OF DME OR SERVICES. CHRONIC WOUNDS TO BUE'S. REPORTS HE WAS SUPPOSED TO FOLLOW UP W/ [facility], BUT STOPPED GOING TO [facility]. HE INTENDS TO F/U AFTER DC. NO PCP. G BROCURE PROVIDED. HCP ON FILE AND VERIFIED. [facility] IS HIS MOTHER, JOHN. DP: GOAL IS HOME SELF CARE, MOTHER TO TRANSPORT. CM WILL CONTINUE TO FOLLOW.
[2025-03-03 11:52] VITALS: BP 114/59; PULSE 71; RESP 20; TEMP 36.9; O2SAT 94
--- NOTE | 2025-03-03 12:00 | PC.NURSE ---
Left message for Andi asking for call back to verify Methadone
--- NOTE | 2025-03-03 12:43 | PM.EVENT ---
Event Note Date of Service: 03/03/25 Event Note: Addiction note Per RN, difficulty obtaining methadone dose verification Methadone 100mg ordered. Once dose verified, remainder of dose to be administered. Time Spent With Patient Time: Total time managing care of this patient today ____ minutes.
--- NOTE | 2025-03-03 13:30 | HE.PHANOTE ---
RE METHADONE; UNABLE TO CONFIRM DOSING AT THIS TIME LAST DOSE VERIFICATION UNABLE TO BE OBTAINED. DOSING OF 100 MG GIVEN PER TREVER MEDEL AND MEDICAL RECORDS SHOWING 170 MG LAST GIVEN AT THIS FACILITY ON 02/05/25. TREVER MEDEL PLANS TO GIVE REMAINDER OF DOSE ONCE FULL VERIFICATION CAN BE OBTAINED. BASED ON HER RECOMMENDATION AND THIS [facility] CLINICAL JUDGEMENT, CHOSE TO VERIFY DOSE OF 100 MG FOR ONE TIME TODAY
[2025-03-03] MEDS: methADONE HCl 20 MG/2 ML ORAL.CONC 100 MG PO (13:35)
--- NOTE | 2025-03-03 15:17 | MHC.RECOVRN ---
Attempted to meet with pt x2 after receiving addiction consult for a SUDE, following an opioid overdose, requiring resuscitation with Narcan. Pt is laying in bed and snoring while asleep with equal and unlabored respirations. Attempted to wake up pt however pt wakes up for 1 second then falls back asleep. ACS team to continue to follow pt for recovery needs. Unable to meaningfully participate in evaluation at this time.
[2025-03-03 15:29] VITALS: BP 125/65; PULSE 63; RESP 16; TEMP 36.4; O2SAT 97
[2025-03-03] MEDS: oxyCODONE HCl Immed Release 5 MG TABLET PO (16:24)
[2025-03-03 20:00] VITALS: BP 140/62; PULSE 63; RESP 17; TEMP 37.1; O2SAT 96
[2025-03-03 20:35] VITALS: RESP 18
[2025-03-04] VITALS: BP 122/65; PULSE 70; RESP 16; TEMP 37.2; O2SAT 95
[2025-03-04 04:00] VITALS: BP 123/58; PULSE 73; RESP 16; TEMP 37.2; O2SAT 96
--- NOTE | 2025-03-04 06:17 | HE.PHANOTE ---
METHADONE CONFIRMATION FORM RECEIVED. PATIENT TAKES 170MG FROM [facility] LAST DOSE 02/28 @ WITH TAKE HOME TO LAST UNTIL 03/03
[2025-03-04 07:07] VITALS: BP 116/63; PULSE 73; RESP 18; TEMP 36.6; O2SAT 97
[2025-03-04 07:47] LABS: MANUAL DIFF FLAG NO
--- NOTE | 2025-03-04 08:05 | P.CONGS_ITS ---
History of Present Illness Consult details Consult date: 03/04/25 Reason for consult: wound care Narrative: Complex 34-year-old gentleman well known to us with a history of polysubstance abuse including use of IV cocaine and heroin presents for follow-up regarding nonhealing upper extremity wounds. He presented to the ER again with an overdose. He was given Narcan. Noted to have upper extremity wounds. At that time his brought in for also a decreased hemoglobin. He now presents to us for vascular evaluation. Review of Systems 2 Review of Systems: Yes all other systems are reviewed and are negative Constitutional: Constitutional: Reports no additional constitutional complaints ENT: Reports Normal hearing present Cardiovascular: Cardiovascular: Denies chest pain, Denies chest pain at rest, Denies chest pain with activity and Denies pedal edema Respiratory: Respiratory: Denies cough Gastrointestinal: Gastrointestinal: Denies abdominal pain Musculoskeletal: Musculoskeletal: Denies abnormal gait, Denies muscle cramps and Denies radiating pain into limb Integumentary/Breasts: Skin/Breast: Denies skin ulcer and Denies wounds Neurologic: Reports Normal hearing present and Denies abnormal gait Psychiatric: Psychiatric: Reports no additional psychiatric complaints PMFSH Past Medical History Medical History Bacteremia Arm ulcer MRSA bacteremia Suicidal ideation Depression Cocaine use with cocaine-induced disorder Opiate dependence, continuous Major depressive disorder, recurrent severe without psychotic features Depression Anxiety IVDU (intravenous drug user) Asthma Family History Family History Father Heart disease Surgical History Surgical History History of surgery on right wrist History of surgery (10/02/24) Social History Social History Household Members: Family Household Members Other:: mother Housing: House Housing Other:: lives with parents Are you a primary adult live in caregiver to a significant other at home: No Do you presently have visiting nurse or other home services: No Alcohol intake: unknown Comment: COUNTS CORRECT Patient Tobacco Use Status: Current everyday Tobacco user Tobacco use type: Cigarette Cigarette Packs Per Day: 1 Cigarettes Per Day: 20.0 Years Smoked: 10 e-Cigarette/Vaping Use: Never Used Second Hand Smoke Exposure: Yes Substance Use Type: Other Advance Directives Date on File: 01/30/21 service: No Current occupational status: unemployed Sexual orientation: Straight/Heterosexual Meds Allergies Allergy/AdvReac Type Severity Reaction Status Date / Time Pertussis Vaccines Allergy Mild HIVES Verified 03/01/25 19:03 (PERTUSSIS VACCINES) haloperidol (From Haldol) Allergy Anaphylaxis Verified 03/01/25 19:03 Active Medications: Current Medications Acetaminophen (Acetaminophen 325 Mg Tablet) 650 mg PO Q6H PRN PRN Reason: Pain, Mild 1-3,fever,headache Calcium Carbonate (Calcium Carbonate 750 Mg Tab.Chew) 750 mg PO Q4H PRN PRN Reason: Heartburn Clonazepam (Clonazepam 1 Mg Tablet) 1 mg PO TID SKUHDE[facility] Last Admin: 03/03/25 20:27 Dose: 1 mg Clonidine HCl (Clonidine Hcl 0.1 Mg Tablet) 0.1 mg PO TID SUKHDEEP; Protocol Last Admin: 03/03/25 20:27 Dose: 0.1 mg Escitalopram Oxalate (Escitalopram Oxalate 10 Mg Tablet) 10 mg PO DAILY [facility] Last Admin: 03/03/25 09:42 Dose: 10 mg Gabapentin (Gabapentin 300 Mg Capsule) 300 mg PO BEDTIME SUKHDEEP Last Admin: 03/03/25 20:27 Dose: 300 mg Gabapentin (Gabapentin 600 Mg Tablet) 600 mg PO TID [facility] Last Admin: 03/03/25 20:27 Dose: 600 mg Piperacillin Sod/Tazobactam (Sod 3.375 gm/ Sodium Chloride) 50 mls @ 100 mls/hr IV Q6H SUKH[facility] Last Infusion: 03/04/25 05:53 Dose: Infused Vancomycin HCl 1,250 mg/ (Sodium Chloride) 250 mls @ 166.667 mls/hr IV Q8H [facility] Last Infusion: 03/04/25 01:35 Dose: Infused Mirtazapine (Mirtazapine 7.5 Mg Tablet) 7.5 mg PO BEDTIME SUKHDEEP Last Admin: 03/03/25 20:27 Dose: 7.5 mg Morphine Sulfate (Morphine Sulfate 4 Mg/Ml Cartridge) 2 mg IVPUSH Q4H PRN; Protocol PRN Reason: Pain, Severe (Pain Scale 7-10) Last Admin: 03/03/25 20:35 Dose: 2 mg Nicotine (Nicotine 21 Mg Patch.Td24) 21 mg TRANSDERMA DAILY [facility] Last Admin: 03/03/25 09:52 Dose: 21 mg Ondansetron HCl (Ondansetron Hcl 4 Mg/2 Ml Vial) 4 mg IVPUSH Q8H PRN PRN Reason: Nausea and Vomiting Last Admin: 03/03/25 16:24 Dose: 4 mg Oxycodone HCl (Oxycodone Hcl Immed Release 5 Mg Tablet) 5 mg PO Q6H PRN PRN Reason: Pain, Moderate(Pain Scale 4-6) Last Admin: 03/03/25 16:24 Dose: 5 mg Pharmacy Consult (Consult Rx Vancomycin Dosing) 1 each MISCELLANE DAILY PRN PRN Reason: Consult order Polyethylene Glycol (Polyethylene Glycol 3350 17 Gm Powd.Pack) 17 gm PO DAILY PRN PRN Reason: Constipation Home Medications ?Medication ?Instructions ?Recorded ?Confirmed ?Last Taken ?Type methadone 10 mg/mL oral 170 mg PO DAILY 10/13/2311/2303/03/25 History concentrate (Methadone Intensol) clonazepam 1 mg tablet 1 mg PO TID 02/28/24 5 02/27/24 20:00 History clonidine HCl 0.1 mg tablet 0.1 mg PO TID 02/28/2409/2502/27/24 20:00 History gabapentin 300 mg capsule 300 mg PO BEDTIME 02/28/24 0 03/02/25 02/26/24 21:00 History gabapentin 600 mg tablet 600 mg PO TID 02/28/2403/0202/27/24 17:00 History mirtazapine 7.5 mg tablet 7.5 mg PO BEDTIME 02/28/24 0 03/02/25 02/26/24 21:00 History quetiapine 100 mg tablet 100 - 200 mg PO BEDTIME PRN 02/28/24 03/02/25 Unknown History Insomnia escitalopram oxalate 10 mg tablet 10 mg PO DAILY 02/0103/02/25 Unknown History doxycycline monohydrate 100 mg 100 mg PO BID 03/02/25 03/02/25 Unknown History tablet Physical Exam 2 Vital Signs: Vital Signs: Last Vital Signs Temp 97.9 F 03/04/25 07:07 Pulse 73 03/04/25 07:07 Resp 18 03/04/25 07:07 BP 116/63 03/04/25 07:07 Pulse Ox 97 03/04/25 07:07 O2 Del Method Room Air 03/04/25 07:07 BMI result Body Mass Index 29.8 Const: General: cooperative, healthy appearing and comfortable O rientation/consciousness: oriented to person, oriented to place and oriented to time HEENT: Head: Yes normal to inspection Neck: Neck: Yes normal visual inspection Carotids: no bruits Chest: Chest palpation & inspection: normal inspection of the chest Resp: Effort & Inspection: normal respiratory effort and able to speak in complete sentences Auscultation: clear to auscultation bilaterally, no crackles, no rales, no rhonchi and no wheezes Cardio: Other: Palpable brachial radial ulnar pulses bilaterally Rate: regular rate Rhythm: regular rhythm Heart sounds: S1 normal heart sound present and S2 normal heart sound present Bruits: no carotid bruits Peripheral pulses: Peripheral pulses 2+ throughout GI: Inspection: Yes normal to inspection Skin: Other: Bilateral upper extremity skin ulceration Wounds: no wounds Hair: normal Neuro: General: oriented to person, oriented to place and oriented to time Cranial nerves: Yes CN's II-XII intact bilaterally and Yes Normal hearing present Cognition (Neuro): normal cognition Motor exam (neuro): 5/5 motor strength present throughout Extrem: Other: venous exam: No significant superficial varicosities or spider telangiectasias, minimal edema General: No clubbing, No cyanosis and No edema Psych: Appearance: grossly normal Mental Status: mental status grossly normal Speech and movement: Normal speech and movement present Results Labs 03/03/25 08:34 03/03/25 06:21 Labs: Abnormal lab results 03/03/25 Range/Units 08:34 RBC 4.52 L (4.60-5.80) X10*6/uL Hgb 8.3 L (14.0-18.0) g/dl Hct 27.7 L (42.0-52.0) % MCV 61.3 L (80.0-98.0) fL MCH 18.4 L (27.0-33.0) pg MCHC 30.0 L (31.0-36.0) g/dl RDW 20.7 H (11.0-16.0) % Immature Gran % (Auto) 0.7 H (0.0-0.4) % Lymph % (Auto) 18.8 L (20-40) % Abs Immat Gran (auto) 0.05 H (0.00-0.03) X10*3/uL Absolute Nucleated RBC 0.020 H (0.0-0.012) X10*3/uL Nucleated RBC % (auto) 0.3 H (0.0-0.2) /100WBC Short CBC 03/03/25 Range/Units 08:34 WBC 7.0 (4.8-10.8) X10*3/uL Hgb 8.3 L (14.0-18.0) g/dl Hct 27.7 L (42.0-52.0) % Plt Count TNP All other labs normal. Assessment and Plan (1) Arm ulcer: Qualifiers: Non-pressure ulcer stage: unspecified non-pressure ulcer stage Q ualified Code(s): L98.499 - Non-pressure chronic ulcer of skin of other sites with unspecified severity Status: Acute Plan In short patient has chronic nonhealing wounds. The current time would continue with local wound care. I did have a discussion with him about risk factor modification. Should it continue this route I do not think this will heal in any shape performed. Continue with medical workup. Will follow up with us on an as-needed basis. Thank you for allowing us to assist in his care Procedures Date of Service Date of Service: 03/04/25
[2025-03-04 08:11] LABS: Hematocrit 30.1 % (42.0-52.0); Hemoglobin 8.6 g/dl (14.0-18.0); Imm Gran Abs Auto 0.08 X10*3/uL (0.00-0.03); Imm Gran Pct Auto 0.9 % (0.0-0.4); Lymphocytes Absolute Auto 1.7 X10*3/uL (1.2-4.9); Mean Corpuscular HGB Conc 28.6 g/dl (31.0-36.0); Mean Corpuscular Hemoglobin 17.9 pg (27.0-33.0); Mean Corpuscular Volume 62.7 fL (80.0-98.0); NRBC Abs Auto 0.000 X10*3/uL (0.0-0.012); NRBC Pct Auto 0.0 /100WBC (0.0-0.2); Platelet Count 376 X10*3/uL (160-400); Red Blood Count 4.80 X10*6/uL (4.60-5.80); White Blood Count 8.5 X10*3/uL (4.8-10.8)
[2025-03-04] MEDS: Nicotine 21 MG PATCH.TD24 TRANSDERMA (08:20)
[2025-03-04 08:23] LABS: Anion Gap 13 (12-20); Blood Urea Nitrogen 12 mg/dL (9-16); Calcium 8.9 mg/dL (8.4-10.2); Carbon Dioxide 21 mmol/L (22-29); Chloride 113 mmol/L (96-108); Creatinine Clr Calc Pharmacy 147.3; Estimated Glomerular Filt Rate > 60; Potassium 3.9 mmol/L (3.3-5.1); Sodium 143 mmol/L (135-145)
--- NOTE | 2025-03-04 09:20 | HE.PHANOTE ---
VANCO DOSE ADJUSTMENT BASED ON SCR AND TROUGH OF 18 DOSE DECREASED TO 1000 Q 8H. NEXT LEVEL 03/05 @ 0800
--- NOTE | 2025-03-04 09:51 | P.PNIM_ITS ---
Subjective Subjective Date of Service: 03/04/25 Interval History: tired ENT Ears, Nose, Mouth, and Throat: Reports Normal hearing present Neurologic Neurologic: Reports Normal hearing present Physical Exam 2 Vital Signs: Vital Signs: Last Vital Signs Temp 97.9 F 03/04/25 07:07 Pulse 73 03/04/25 07:07 Resp 18 03/04/25 07:07 BP 116/63 03/04/25 07:07 Pulse Ox 97 03/04/25 07:07 O2 Del Method Room Air 03/04/25 07:07 BMI result Body Mass Index 29.8 Const: General: cooperative, healthy appearing and comfortable O rientation/consciousness: oriented to person, oriented to place and oriented to time HEENT: Head: Yes normal to inspection Neck: Neck: Yes normal visual inspection Carotids: no bruits Chest: Chest palpation & inspection: normal inspection of the chest Resp: Effort & Inspection: normal respiratory effort and able to speak in complete sentences Auscultation: clear to auscultation bilaterally, no crackles, no rales, no rhonchi and no wheezes Cardio: Other: Palpable brachial radial ulnar pulses bilaterally Rate: regular rate Rhythm: regular rhythm Heart sounds: S1 normal heart sound present and S2 normal heart sound present Bruits: no carotid bruits Peripheral pulses: Peripheral pulses 2+ throughout GI: Inspection: Yes normal to inspection Skin: Other: Bilateral upper extremity skin ulceration Wounds: no wounds Hair: normal Neuro: General: oriented to person, oriented to place and oriented to time Cranial nerves: Yes CN's II-XII intact bilaterally and Yes Normal hearing present Cognition (Neuro): normal cognition Motor exam (neuro): 5/5 motor strength present throughout Extrem: Other: venous exam: No significant superficial varicosities or spider telangiectasias, minimal edema General: No clubbing, No cyanosis and No edema Psych: Appearance: grossly normal Mental Status: mental status grossly normal Speech and movement: Normal speech and movement present Objective Data Active Medications Acetaminophen (Acetaminophen 325 Mg Tablet) 650 mg PO Q6H PRN PRN Reason: Pain, Mild 1-3,fever,headache Calcium Carbonate (Calcium Carbonate 750 Mg Tab.Chew) 750 mg PO Q4H PRN PRN Reason: Heartburn Clonazepam (Clonazepam 1 Mg Tablet) 1 mg PO TID COUNTS INCLUDE 234 BEDS AT THE [facility] Last Admin: 03/04/25 08:19 Dose: 1 mg Documented By: [place] Clonidine HCl (Clonidine Hcl 0.1 Mg Tablet) 0.1 mg PO TID COUNTS INCLUDE 234 BEDS AT THE [facility]; Protocol Last Admin: 03/04/25 08:20 Dose: 0.1 mg Documented By: [place] Escitalopram Oxalate (Escitalopram Oxalate 10 Mg Tablet) 10 mg PO DAILY COUNTS INCLUDE 234 BEDS AT THE [facility] Last Admin: 03/04/25 08:20 Dose: 10 mg Documented By: [place] Gabapentin (Gabapentin 300 Mg Capsule) 300 mg PO BEDTIME COUNTS INCLUDE 234 BEDS AT THE [facility] Last Admin: 03/03/25 20:27 Dose: 300 mg Documented By: DANIKA Gabapentin (Gabapentin 600 Mg Tablet) 600 mg PO TID COUNTS INCLUDE 234 BEDS AT THE [facility] Last Admin: 03/04/25 08:19 Dose: 600 mg Documented By: [place] Piperacillin Sod/Tazobactam (Sod 3.375 gm/ Sodium Chloride) 50 mls @ 100 mls/hr IV Q6H COUNTS INCLUDE 234 BEDS AT THE [facility] Last Infusion: 03/04/25 05:53 Dose: Infused Documented By: DANIKA Vancomycin HCl 1,000 mg/ (Sodium Chloride) 270 mls @ 270 mls/hr IV Q8H COUNTS INCLUDE 234 BEDS AT THE [facility] Mirtazapine (Mirtazapine 7.5 Mg Tablet) 7.5 mg PO BEDTIME COUNTS INCLUDE 234 BEDS AT THE [facility] Last Admin: 03/03/25 20:27 Dose: 7.5 mg Documented By: DANIKA Morphine Sulfate (Morphine Sulfate 4 Mg/Ml Cartridge) 2 mg IVPUSH Q4H PRN; Protocol PRN Reason: Pain, Severe (Pain Scale 7-10) Last Admin: 03/03/25 20:35 Dose: 2 mg Documented By: DANIKA Nicotine (Nicotine 21 Mg Patch.Td24) 21 mg TRANSDERMA DAILY COUNTS INCLUDE 234 BEDS AT THE [facility] Last Admin: 03/04/25 08:20 Dose: 21 mg Documented By: [place] Ondansetron HCl (Ondansetron Hcl 4 Mg/2 Ml Vial) 4 mg IVPUSH Q8H PRN PRN Reason: Nausea and Vomiting Last Admin: 03/03/25 16:24 Dose: 4 mg Documented By: DENISE Oxycodone HCl (Oxycodone Hcl Immed Release 5 Mg Tablet) 5 mg PO Q6H PRN PRN Reason: Pain, Moderate(Pain Scale 4-6) Last Admin: 03/03/25 16:24 Dose: 5 mg Documented By: DENISE Pharmacy Consult (Consult Rx Vancomycin Dosing) 1 each MISCELLANE DAILY PRN PRN Reason: Consult order Polyethylene Glycol (Polyethylene Glycol 3350 17 Gm Powd.Pack) 17 gm PO DAILY PRN PRN Reason: Constipation Labs 03/04/25 07:40 03/04/25 07:41 Labs: Laboratory Results - last 24 hr 03/02/25 03/04/25 03/04/25 05:14 07:40 07:41 MCV 62.7 L MCH 17.9 L MCHC 28.6 L RDW 21.5 H Plt Count 376 MPV 10.0 Immature Gran % (Auto) 0.9 H Neut % (Auto) 68.8 Lymph % (Auto) 19.7 L [place] % (Auto) 9.0 Eos % (Auto) 1.2 Baso % (Auto) 0.4 Lymph # (Auto) 1.7 [place] # (Auto) 0.8 Eos # (Auto) 0.1 Baso # (Auto) 0.0 Abs Immat Gran (auto) 0.08 H Absolute Neuts (auto) 5.8 Absolute Nucleated RBC 0.000 Nucleated RBC % (auto) 0.0 Smear Path Review Cancelled Anion Gap 13 Estim Creat Clear Calc 147.3 Estimated GFR > 60 Random Glucose 100 Calcium 8.9 Random Vancomycin 18.0 Microbiology Microbiology Results: Microbiology 03/01/25 21:05 Blood Culture - Preliminary Blood - Venous No growth after 48 hours. 03/01/25 20:58 Blood Culture - Preliminary Blood - Venous No growth after 48 hours. Assessment and Plan (1) Polysubstance abuse: Status: Acute Plan 34M PMH polysubstance dependence, mood disorder, IV drug use, recent MRSA bacteremia, presented with altered mental status Acute toxic metabolic encephalopathy due to unintentional opiate overdose Mental status improving Addiction eval Recent MRSA and group g strep bacteremia and chronic left upper extremity wounds with cellulitis Continue vancomycin and Zosyn and follow up repeat cultures - so far negative, follow up Id surgery aprpeciated - local care to wounds Acute on chronic anemia Suspect combination of chronic iron-deficiency and inflammatory Severely microcytic ? Thalassemia Transfused 2 units PRBC, improved DVT prophylaxis - mechanical due to anemia Full code reason for continued hospitalization: iv abx Quality Stroke Does the patient have a stroke diagnosis?: No VTE Prior VTE?: No VTE Risk Level:: Medical - moderate - high VTE Device Contraindication: N/A - Device Ordered VTE Drug Contraindication: Treatment Not Indicated
[2025-03-04] MEDS: methADONE HCl 20 MG/2 ML ORAL.CONC 170 MG PO (10:27)
--- NOTE | 2025-03-04 11:05 | MHC.CM.PN ---
EMR REVIEWED, PER MD NOTE PT WILL REMAIN INPT FOR CONT'D IV ABX, ID/WOUND CONSULTS PENDING, CM WILL CONT TO FOLLOW DC NEEDS.
[2025-03-04 11:13] VITALS: BP 124/74; PULSE 91; RESP 18; TEMP 36.9; O2SAT 97
[2025-03-04] MEDS: oxyCODONE HCl Immed Release 5 MG TABLET PO (11:39)
--- NOTE | 2025-03-04 12:45 | P.CDIM_ITS ---
PROVIDER RESPONSE TEXT: To clarify, the appropriate diagnosis supported by the clinical indicators: Other (explain): blood loss unliikely QUERY TEXT: PHYSICIAN'S DOCUMENTATION REQUEST Date of Query: 03/04/2025 12:33 PM EDT Patient Name: Andrey Monk Admit Date: 03/02/2025 Dear Andrew Mason MD, A review of the medical record indicates additional documentation may be needed. Please review below and update the documentation accordingly. Clinical Indicators: Progress note 03/04/25 - Acute on chronic anemia Suspect combination of chronic iron deficiency and inflammatory. Transfused 2 units PRBC. H/H 6.9/23.7 BP 94/42 L Based on the above, could you clarify which of the following is the most likely type of anemia you are evaluating, treating, and/or monitoring? Iron deficiency anemia due to/secondary to chronic blood loss possible, suspected, probable, cannot rule out et c. Iron deficiency anemia due to/secondary to acute on chronic blood loss suspected, possible, probable etc. Other (explain) Clinically unable to determine (explain) Thank you, Ofe Gregory, CCS, CDIS Use of terms such as suspected, likely, concern for, or probable (associated with a specific diagnosis that is being evaluated, monitored, or treated as if it exists) are acceptable and can be coded in the inpatient setting, when documented at the time of discharge. Please use your independent medical judgment in providing your response. THIS QUERY IS PART OF THE PERMANENT MEDICAL RECORD
[2025-03-04 15:17] VITALS: BP 130/80; PULSE 100; RESP 18; TEMP 36.6; O2SAT 97
--- NOTE | 2025-03-04 15:31 | HO.WOUND ---
Wound Consult: Initial 34yr old?male admitted to [facility] on 03/02/25- See progress notes and H&P for detailed history.? Wound consult placed for Bilateral Arms.? Patient agreeable to assessment and is known to this writer technical publications from prior admissions. Patient expressed increased anxiety more recently which lead to his more recent substance use. We discussed harm reduction and not injecting into wounds. He reports understanding and follows with outpt wound clinic and is aware of [facility] programs. Bilateral Forearm Etiology: Ulceration secondary to IVDU suspect Xylazine wounds - ??Present on Admission Wound Bed: pink moist wound beds with yellow slough noted - scattered areas of dry thick eschar Drainage / Odor: yellow nguyen malodor noted Edges: ? irregular and unattached Corinne wound: ?pink erythema No Induration, Fluctuance or Warmth noted Goals of Treatment: ? Durafiber AG for moisture management and odor control and right forearm with hydrocolloid for moisture control and moist wound healing. Recommendations: 1. Turn and Reposition every 2 hours and as needed for patient comfort.? Use pillows or wedges to support off loading positions. 2. Off Load all bony prominences with use of pillows and heel boots if needed.? Apply Preventative foams where needed. ? 3. Monitor for incontinence and moisture control, use barrier creams when needed for prevention and treatment. 4. Provide adequate and supplemental nutrition.? 5. Continue low air loss mattress. / Isotour bed in use 6. When applicable maintain blood glucose levels per Providers order. Left Forearm - Cleanse with NS moist gauze, pat dry. Apply durafiber AG to wound bed cover with dry gauze ABD pad and wrap. Change every other day. Right Forearm - Cleanse with NS moist gauze, pat dry. Apply Hydrocolloid to wound bed cover with dry gauze ABD pad and wrap. Change every 3 days and PRN. Re-consult wound care Nurse for wound deterioration or wound changes.
--- NOTE | 2025-03-04 16:47 | W.PM.IDCN ---
History of Present Illness Data of Consult Service Date: 03/04/25 Requesting physician: Andrew Mason Primary Care Provider: Unknown Physician HPI Reason for consult: concern over encephalopathy He is here for evaluation encephalopathy He has no fever or chills at this time Review of Systems Review of Systems: Yes all other systems are reviewed and are negative [facility] Past Medical History Medical History Bacteremia Arm ulcer MRSA bacteremia Suicidal ideation Depression Cocaine use with cocaine-induced disorder Opiate dependence, continuous Major depressive disorder, recurrent severe without psychotic features Depression Anxiety IVDU (intravenous drug user) Asthma Family History Family History Father Heart disease Family history: reviewed and not pertinent Surgical History Surgical History History of surgery on right wrist History of surgery (10/02/24) Social History Social History Household Members: Family Household Members Other:: mother Housing: House Housing Other:: lives with parents Are you a primary healthcare marketer to a significant other at home: No Do you presently have visiting nurse or other home services: No Alcohol intake: unknown Comment: COUNTS CORRECT Patient Tobacco Use Status: Current everyday Tobacco user Tobacco use type: Cigarette Cigarette Packs Per Day: 1 Cigarettes Per Day: 20.0 Years Smoked: 10 e-Cigarette/Vaping Use: Never Used Second Hand Smoke Exposure: Yes Substance Use Type: Other Advance Directives Date on File: 01/30/21 service: No Current occupational status: unemployed Sexual orientation: Straight/Heterosexual Meds Allergies Allergy/AdvReac Type Severity Reaction Status Date / Time Pertussis Vaccines Allergy Mild HIVES Verified 03/01/25 19:03 (PERTUSSIS VACCINES) haloperidol (From Haldol) Allergy Anaphylaxis Verified 03/01/25 19:03 Active Medications: Current Medications Acetaminophen (Acetaminophen 325 Mg Tablet) 650 mg PO Q6H PRN PRN Reason: Pain, Mild 1-3,fever,headache Calcium Carbonate (Calcium Carbonate 750 Mg Tab.Chew) 750 mg PO Q4H PRN PRN Reason: Heartburn Clonazepam (Clonazepam 1 Mg Tablet) 1 mg PO TID SUKHDEEP Last Admin: 03/04/25 16:07 Dose: 1 mg Clonidine HCl (Clonidine Hcl 0.1 Mg Tablet) 0.1 mg PO TID [facility]; Protocol Last Admin: 03/04/25 16:07 Dose: 0.1 mg Escitalopram Oxalate (Escitalopram Oxalate 10 Mg Tablet) 10 mg PO DAILY [facility] Last Admin: 03/04/25 08:20 Dose: 10 mg Gabapentin (Gabapentin 300 Mg Capsule) 300 mg PO BEDTIME [facility] Last Admin: 03/03/25 20:27 Dose: 300 mg Gabapentin (Gabapentin 600 Mg Tablet) 600 mg PO TID [facility] Last Admin: 03/04/25 16:07 Dose: 600 mg Piperacillin Sod/Tazobactam (Sod 3.375 gm/ Sodium Chloride) 50 mls @ 100 mls/hr IV Q6H [facility] Last Infusion: 03/04/25 12:21 Dose: Infused Vancomycin HCl 1,000 mg/ (Sodium Chloride) 270 mls @ 270 mls/hr IV Q8H [facility] Methadone HCl (Methadone Hcl 20 Mg/2 Ml Oral.Conc) 170 mg PO DAILY@0800 [facility] Mirtazapine (Mirtazapine 7.5 Mg Tablet) 7.5 mg PO BEDTIME [facility] Last Admin: 03/03/25 20:27 Dose: 7.5 mg Morphine Sulfate (Morphine Sulfate 4 Mg/Ml Cartridge) 2 mg IVPUSH Q4H PRN; Protocol PRN Reason: Pain, Severe (Pain Scale 7-10) Last Admin: 03/04/25 13:54 Dose: 2 mg Naloxone HCl (Naloxone Hcl 0.4 Mg/Ml Vial) 0.4 mg IVPUSH Q5M PRN PRN Reason: resp rate < 10 Nicotine (Nicotine 21 Mg Patch.Td24) 21 mg TRANSDERMA DAILY [facility] Last Admin: 03/04/25 08:20 Dose: 21 mg Ondansetron HCl (Ondansetron Hcl 4 Mg/2 Ml Vial) 4 mg IVPUSH Q8H PRN PRN Reason: Nausea and Vomiting Last Admin: 03/03/25 16:24 Dose: 4 mg Oxycodone HCl (Oxycodone Hcl Immed Release 5 Mg Tablet) 5 mg PO Q6H PRN PRN Reason: Pain, Moderate(Pain Scale 4-6) Last Admin: 03/04/25 11:39 Dose: 5 mg Pharmacy Consult (Consult Rx Vancomycin Dosing) 1 each MISCELLANE DAILY PRN PRN Reason: Consult order Polyethylene Glycol (Polyethylene Glycol 3350 17 Gm Powd.Pack) 17 gm PO DAILY PRN PRN Reason: Constipation Home Medications ?Medication ?Instructions ?Recorded ?Confirmed ?Last Taken ?Type methadone 10 mg/mL oral 170 mg PO DAILY 10/13/23 03/04/25 03/03/25 History concentrate (Methadone Intensol) clonazepam 1 mg tablet 1 mg PO TID 02/28/24 03/02/25 02/27/24 20:00 History clonidine HCl 0.1 mg tablet 0.1 mg PO TID 02/28/24 03/02/25 02/27/24 20:00 History gabapentin 300 mg capsule 300 mg PO BEDTIME 02/28/24 03/02/25 02/26/24 21:00 History gabapentin 600 mg tablet 600 mg PO TID 02/28/24 03/02/25 02/27/24 17:00 History mirtazapine 7.5 mg tablet 7.5 mg PO BEDTIME 02/28/24 03/02/25 02/26/24 21:00 History quetiapine 100 mg tablet 100 - 200 mg PO BEDTIME PRN 02/28/24 03/02/25 Unknown History Insomnia escitalopram oxalate 10 mg tablet 10 mg PO DAILY 02/01/25 03/02/25 Unknown History doxycycline monohydrate 100 mg 100 mg PO BID 03/02/25 03/02/25 Unknown History tablet Physical Exam Vital Signs: Vital Signs: Last Vital Signs Temp 97.9 F 03/04/25 15:17 Pulse 100 03/04/25 15:17 Resp 18 03/04/25 15:17 BP 130/80 03/04/25 15:17 Pulse Ox 97 03/04/25 15:17 O2 Del Method Room Air 03/04/25 15:17 BMI result Body Mass Index 29.8 Const: General: cooperative HEENT: Head: Yes normal to inspection Face and sinus: Yes normal facial exam Mouth: Normal oral and palatal mucosa present Teeth and gingiva: dentition normal Eyes: General: appearance normal, both eyes and all related structures Pupils: Equal, round and reactive pupils present Resp: Effort & Inspection: normal respiratory effort Cardio: Rate: regular rate Rhythm: regular rhythm GI: Palpation (GI): Soft to palpation and nontender : General: Yes no CVA tenderness Back/Spine/Pelvis: Back: no CVA tenderness Skin: General skin exam: no rashes or lesions noted Neuro: General: moves all extremities Cranial nerves: Yes Equal, round and reactive pupils present Extrem: Other: arm redness Psych: Appearance: grossly normal Results Labs 03/04/25 07:40 03/04/25 07:41 Labs: Short CBC 03/04/25 Range/Units 07:40 WBC 8.5 (4.8-10.8) X10*3/uL Hgb 8.6 L (14.0-18.0) g/dl Hct 30.1 L (42.0-52.0) % Plt Count 376 (160-400) X10*3/uL BMP 03/04/25 07:41 Sodium 143 Potassium 3.9 Chloride 113 H Carbon Dioxide 21 L BUN 12 Creatinine 0.79 Calcium 8.9 Microbiology Microbiology Results: Microbiology 03/01/25 21:05 Blood - Venous Blood Culture - Preliminary No growth after 48 hours. 03/01/25 20:58 Blood - Venous Blood Culture - Preliminary No growth after 48 hours. Assessment and Plan (1) Major depressive disorder, recurrent severe without psychotic features: Status: Acute (2) Opioid use disorder: Status: Acute (3) Polysubstance abuse: Status: Acute Plan encephalopathy possible drug use reaspn skin lesions chronic Po Doxycycline for a week on discharge.
--- NOTE | 2025-03-04 18:02 | PC.NURSE ---
This RN entered room to administer morning dose of methadone. As entering the pt visitor was leaving. Pt appeared fidgety, appeared to be trying to tuck something under thee sheets. After administration of methadone, this RN wanted to assess pt mobility. When patient got up, a syringe was seen in the bed sheets. I then proceeded to ask the pt what is this? . he then stated its cocaine . Pt stated the visitor was his sister. Syringe was taken from pt and security was called. was notified and camera put in room with restrictions to visitors. Education given to pt on hospital policy and rules. Pt very apologetic.
--- NOTE | 2025-03-04 19:10 | P.EN_ITS ---
Event Note Date of Service: 03/04/25 Event Note: Nurse reported that patient does not want to stay in the hospital anymore. Patient is awake, alert and oriented x4 at the time of my evaluation. He wants to leave the hospital for unknown reason and is not willing to continue hospital stay. He has capacity and understands the risks of leaving AMA including worsening of infection, sepsis and/or . Blood cultures negative at the time of discharge. Reviewed Infectious Disease notes and will send a prescri ption for doxycycline twice daily x 7 days. Time Spent With Patient Time: Total time managing care of this patient today ____ minutes.
--- NOTE | 2025-03-05 06:52 | PM.DS ---
DS: Providers Provider Date of Service: 03/04/25 Date of admission: 03/02/25 00:41 Date of discharge: 03/04/25 Primary care physician: Unknown Physician Consults: 03/02/25 00:41 Addiction Medicine Provider Routine Consulting Provider: Addiction Covering Reason for consultation: OD, polysubstance abuse Has provider been notified: No Consult to Vascular Surgery Routine Consulting Provider: [facility] [place] Vascular Services Reason for consultation: bilateral UE wounds Has provider been notified: No Consult to Wound Care Routine Reason for consultation: bilateral UE wounds 03/02/25 00:45 Consult to Infectious Diseases Routine Consulting Provider: [facility] Infectious Disease Center Reason for consultation: upper extremities wounds, bilateral, chronic Has provider been notified: No 03/02/25 02:53 Consult to Urology Routine Consulting Provider: [facility] Urology Services Reason for consultation: urinary retention Has provider been notified: No DS: Diagnosis Discharge Diagnosis (1) Major depressive disorder, recurrent severe without psychotic features: Status: Acute (2) Opioid use disorder: Status: Acute (3) Polysubstance abuse: Status: Acute DS: Summary Hospital Course Hospital Course: from initial hpi: 34-year-old male with a past medical history significant for polysubstance use including IV cocaine and heroin, chronic wounds in the upper extremities previously followed by wound care, ?epileptic disorder, history of MRSA bacteremia and mild intermittent asthma, who presented to the ED due to an overdose. the pt received 8mg intranasal narcan with response. Pt complained of bilateral leg pain, 10/10 and SOB. he admitted to using IV fentanyl. the pt is obtunded and did not wake for H&P. w/u in ED withleukocytosis and anemia with chronic bilateral UE wounds with superimposed infection. hgb 6.9, negative stool guiac. hospital course: She was admitted for acute toxic metabolic encephalopathy due to unintentional opiate overdose. Mental status returned to baseline. Was seen by Addiction who provided patient with methadone. For recent MRSA and group G strep bacteremia and chronic left upper extremity wounds with cellulitis was continued on vancomycin Zosyn, repeat culture was negative, was seen by surgery who felt no surgical intervention needed. Was seen by infectious disease who recommended discharged on 1 week of doxycycline. For acute on chronic anemia likely combination of chronic iron-deficiency and inflammatory was transfused 2 units PRBC and improved appropriately. Patient left against medical advice. Time Attestation Discharge Coordination Time (in mins): 34 Quality: Safe Use of Opioids Does Pt have an Active Cancer Diagnosis on the Problem List?: No Quality: Stroke Does the patient have a stroke diagnosis?: No Physical Exam Vital Signs: Vital Signs: Last Vital Signs Temp 97.9 F 03/04/25 15:17 Pulse 100 03/04/25 15:17 Resp 18 03/04/25 15:17 BP 130/80 03/04/25 15:17 Pulse Ox 97 03/04/25 15:17 O2 Del Method Room Air 03/04/25 15:17 BMI result Body Mass Index 29.8 Const: General: cooperative HEENT: Head: Yes normal to inspection Face and sinus: Yes normal facial exam Mouth: Normal oral and palatal mucosa present Teeth and gingiva: dentition normal Eyes: General: appearance normal, both eyes and all related structures Pupils: Equal, round and reactive pupils present Resp: Effort & Inspection: normal respiratory effort Cardio: Rate: regular rate Rhythm: regular rhythm GI: Palpation (GI): Soft to palpation and nontender : General: Yes no CVA tenderness Back/Spine/Pelvis: Back: no CVA tenderness Skin: General skin exam: no rashes or lesions noted Neuro: General: moves all extremities Cranial nerves: Yes Equal, round and reactive pupils present Extrem: Other: arm redness Psych: Appearance: grossly normal DS: Data Data Completed and Pending Completed studies during hospitalization [Text1]: Procedures Excision of Duodenum, Via Natural or Artificial Opening Endoscopic, Diagnostic (01/01/24) Excision of Left Lower Arm Skin, External Approach (09/27/24) Excision of Rectum, Via Natural or Artificial Opening Endoscopic, Diagnostic (01/01/24) Excision of Right Lower Arm Skin, External Approach (09/27/24) Excision of Stomach, Pylorus, Via Natural or Artificial Opening Endoscopic, Diagnostic (01/01/24) Extraction of Left Lower Arm Skin, External Approach (02/01/25) Extraction of Right Lower Arm Skin, External Approach (02/01/25) Insertion of Endotracheal Airway into Trachea, Via Natural or Artificial Opening (09/27/24) Insertion of Infusion Device into Superior Vena Cava, Percutaneous Approach (09/27/24) Insertion of Infusion Device into Upper Vein, Percutaneous Approach (02/01/25) Introduction of Vasopressor into Peripheral Vein, Percutaneous Approach (09/27/24) Respiratory Ventilation, 24-96 Consecutive Hours (09/27/24) Transfusion of Nonautologous Red Blood Cells into Peripheral Vein, Percutaneous Approach (09/27/24) Ultrasonography of Superior Vena Cava, Guidance (09/27/24) Labs on day of discharge: Laboratory Results - last 24 hr 03/04/25 03/04/25 07:40 07:41 WBC 8.5 RBC 4.80 Hgb 8.6 L Hct 30.1 L MCV 62.7 L MCH 17.9 L MCHC 28.6 L RDW 21.5 H Plt Count 376 MPV 10.0 Immature Gran % (Auto) 0.9 H Neut % (Auto) 68.8 Lymph % (Auto) 19.7 L [place] % (Auto) 9.0 Eos % (Auto) 1.2 Baso % (Auto) 0.4 Lymph # (Auto) 1.7 [place] # (Auto) 0.8 Eos # (Auto) 0.1 Baso # (Auto) 0.0 Abs Immat Gran (auto) 0.08 H Absolute Neuts (auto) 5.8 Absolute Nucleated RBC 0.000 Nucleated RBC % (auto) 0.0 Sodium 143 Potassium 3.9 Chloride 113 H Carbon Dioxide 21 L Anion Gap 13 BUN 12 Creatinine 0.79 Estim Creat Clear Calc 147.3 Estimated GFR > 60 Random Glucose 100 Calcium 8.9 Random Vancomycin 18.0 Preliminary micro results at discharge 03/01/25 21:05 Blood Culture - Preliminary Blood - Venous No growth after 48 hours. 03/01/25 20:58 Blood Culture - Preliminary Blood - Venous No growth after 48 hours. Discharge Plan Discharge Patient Disposition: Left Against Medical Advice Discharge Diagnosis: od Referrals: Physician,Unknown J [Primary Care Provider, Medical] - 1 Week Discharge Medications: Continued doxycycline monohydrate 100 mg tablet 100 mg PO BID 7 Days Qty: 14 0RF No Action methadone [Methadone Intensol] 10 mg/mL Concentrate 170 mg PO DAILY clonidine HCl 0.1 mg tablet 0.1 mg PO TID gabapentin 600 mg tablet 600 mg PO TID clonazepam 1 mg tablet 1 mg PO TID quetiapine 100 mg tablet 100 - 200 mg PO BEDTIME PRN (Reason: Insomnia) gabapentin 300 mg capsule 300 mg PO BEDTIME mirtazapine 7.5 mg tablet 7.5 mg PO BEDTIME escitalopram oxalate 10 mg tablet 10 mg PO DAILY Discharge Orders: Discharge Order (Routine); Ordered 03/05/25 Ordered By: Andrew Mason Print Language: Kiswahili Care Plan Goals: recovery Health Concerns: left ama Plan of Treatment: left ama Assessment: left ama Discharge Date/Time: 03/04/25 19:36
== END 2025-03-04 19:36 | disposition left against medical advice (07) | DRG 812 ==
LOC: HO.ED 03-02 01:08 → HO.EDOVER 03-02 01:46 → HO.IMC 03-02 12:10
PROVIDERS: Physician Assistant Medical; Admitting Provider Physician Assistant; Emergency Provider Emergency Medicine; Visit Provider Internal Medicine
DX: T40.411A Poisoning by fentanyl or fentanyl analogs, accidental (unintentional), initial encounter (principal); G92.8 Other toxic encephalopathy; F17.210 Nicotine dependence, cigarettes, uncomplicated; F11.20 Opioid dependence, uncomplicated; D50.9 Iron deficiency anemia, unspecified; F19.10 Other psychoactive substance abuse, uncomplicated; R33.9 Retention of urine, unspecified; J45.20 Mild intermittent asthma, uncomplicated; L98.499 Non-pressure chronic ulcer of skin of other sites with unspecified severity; L03.114 Cellulitis of left upper limb; Z71.6 Tobacco abuse counseling; Z86.14 Personal history of Methicillin resistant Staphylococcus aureus infection; Z79.899 Other long term (current) drug therapy
CPT/HCPCS: 36415; 70450; 73201; 74176; 80048; 80053; 80143; 80179; 80202; 80307; 82272; 83605; 85025; 86850; 86900; 86901; 86923; 87040; 93005; 99285; J2270; J2405; J2543; J3374; P9016; Q9967; S9485

== ENCOUNTER → 2025-03-01 19:24 | Outpatient (BNV) | payer OTHER, SELFPAY | PROVIDERS: Admitting Provider Physician Assistant; Emergency Provider Emergency Medicine; Visit Provider Internal Medicine Cardiovascular Disease | DX: R06.02 Shortness of breath (principal) | CPT/HCPCS: 93010 ==

== ENCOUNTER → 2025-03-01 21:23 | Outpatient (BNV) | payer OTHER, SELFPAY | PROVIDERS: Emergency Provider Emergency Medicine; Visit Provider Radiology Vascular & Interventional Radiology | DX: R22.32 Localized swelling, mass and lump, left upper limb (principal); R22.31 Localized swelling, mass and lump, right upper limb | CPT/HCPCS: 73201 ==

== ENCOUNTER 2025-03-02 00:41 | Outpatient (BNV) | payer OTHER, SELFPAY | END 2025-03-02 23:58 | PROVIDERS: Admitting Provider Physician Assistant; Emergency Provider Emergency Medicine; Visit Provider Radiology Diagnostic Radiology | DX: K68.3 Retroperitoneal hematoma (principal); R41.82 Altered mental status, unspecified | CPT/HCPCS: 70450; 74176 ==

== ENCOUNTER → 2025-03-02 00:41 | Outpatient (BNV) | payer OTHER, SELFPAY | PROVIDERS: Admitting Provider Physician Assistant; Emergency Provider Emergency Medicine; Visit Provider Nurse Practitioner Psychiatric/Mental Health | DX: F11.90 Opioid use, unspecified, uncomplicated (principal) | CPT/HCPCS: 99222; 99499 ==

== ENCOUNTER → 2025-03-02 00:41 | Outpatient (BNV) | payer OTHER, SELFPAY | PROVIDERS: Admitting Provider Physician Assistant; Emergency Provider Emergency Medicine; Visit Provider Internal Medicine | DX: G93.40 Encephalopathy, unspecified (principal); F19.10 Other psychoactive substance abuse, uncomplicated; F11.90 Opioid use, unspecified, uncomplicated; F33.2 Major depressive disorder, recurrent severe without psychotic features | CPT/HCPCS: 99232 ==

== ENCOUNTER → 2025-03-02 00:41 | Outpatient (BNV) | payer OTHER, SELFPAY | PROVIDERS: Admitting Provider Physician Assistant; Emergency Provider Emergency Medicine; Visit Provider Urology | DX: R33.9 Retention of urine, unspecified (principal) | CPT/HCPCS: 99222 ==

== ENCOUNTER → 2025-03-02 00:41 | Outpatient (BNV) | payer OTHER, SELFPAY | PROVIDERS: Admitting Provider Physician Assistant; Emergency Provider Emergency Medicine; Visit Provider Surgery | DX: L98.499 Non-pressure chronic ulcer of skin of other sites with unspecified severity (principal); T14.8XXA Other injury of unspecified body region, initial encounter | CPT/HCPCS: 99222 ==

== ENCOUNTER → 2025-03-02 00:41 | Outpatient (BNV) | payer OTHER, SELFPAY | PROVIDERS: Admitting Provider Physician Assistant; Emergency Provider Emergency Medicine; Visit Provider Surgery Vascular Surgery | DX: L98.499 Non-pressure chronic ulcer of skin of other sites with unspecified severity (principal) | CPT/HCPCS: 99222 ==

== ENCOUNTER → 2025-03-02 00:41 | Outpatient (BNV) | payer OTHER, SELFPAY | PROVIDERS: Admitting Provider Physician Assistant; Emergency Provider Emergency Medicine; Visit Provider Physician Assistant | DX: F19.10 Other psychoactive substance abuse, uncomplicated (principal) | CPT/HCPCS: 99499 ==

== ENCOUNTER → 2025-03-25 04:20 | Outpatient (BNV) | payer OTHER, SELFPAY | PROVIDERS: PCP Internal Medicine; Visit Provider Radiology Vascular & Interventional Radiology | DX: S69.92XA Unspecified injury of left wrist, hand and finger(s), initial encounter (principal); V89.2XXA Person injured in unspecified motor-vehicle accident, traffic, initial encounter | CPT/HCPCS: 73110 ==

== ENCOUNTER 2025-03-25 05:02 | Emergency (ER) | payer OTHER, SELFPAY ==
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
[2025-03-25] VITALS (11 sets, daily range): BP systolic 94–145; BP diastolic 44–88; PULSE 70–102; RESP 14–18; TEMP 36.4–36.8; O2SAT 95–98; BMI 29.6
--- NOTE | ~2025-03-25 | XR_ITS ---
CLINICAL HISTORY: Pain 3 view right wrist Comparison: None provided Findings: No fractures or dislocations. 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 No significant loss of joint space, osteophyte, or erosions. No radiopaque foreign body. IMPRESSION: 1. No acute findings This document has been electronically signed by: Chris Soto MD on 03/25/2025 05:50:37
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
--- NOTE | 2025-03-25 07:44 | PC.NURSE ---
PT A&O X4 but extremely drowsy. Provider notified. BP also low Dr Garsia aware. Other VSS. Afebrile. Bilat arm wounds draining bloody drainage, Will be redressed after provider eval.
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
--- NOTE | 2025-03-25 10:05 | PC.NURSE ---
Pt remains somnolent but arousable. VSS BP still lower than admission BP. Pt asymtomatic.
--- NOTE | 2025-03-25 13:51 | PC.NURSE ---
Pt remains arousable with stable VS. Still very drowsy.
== END 2025-03-25 14:21 | disposition home or self-care (01) ==
PROVIDERS: Emergency Provider Emergency Medicine; PCP Internal Medicine
DX: S60.211A Contusion of right wrist, initial encounter (principal); M25.531 Pain in right wrist; W19.XXXA Unspecified fall, initial encounter; Y93.9 Activity, unspecified; Y92.9 Unspecified place or not applicable; Y99.8 Other external cause status; F17.210 Nicotine dependence, cigarettes, uncomplicated; Z79.899 Other long term (current) drug therapy
CPT/HCPCS: 73110; 99283; 99284

== ENCOUNTER 2025-04-28 16:31 | Inpatient (IN) | payer OTHER, SELFPAY ==
--- NOTE | ~2025-04-28 | CT_ITS ---
CLINICAL HISTORY: CP, hx of IVDA, r o septic emboli CT angiography of the chest with IV contrast. 3D/MIP post processing reconstructions were performed. COMPARISON: CT abdomen and dated 03/02/25 at 00:[address] chest dated 09/27/24 at 11:39 EST FINDINGS: Motion and contrast bolus timing limits evaluation of the distal pulmonary arteries. No intraluminal filling defects within the main or lobar pulmonary arteries to suggest pulmonary embolism. No evidence of right heart strain. RV to LV ratio of 0.9. Visualized thyroid is unremarkable. Multiple enlarged left axillary lymph nodes. For example left axillary lymph node measuring 2.5 x 1.8 cm (series 7, image 26), previously measured 2.0 x 1.7 cm. Ascending aorta and main pulmonary artery are normal in caliber. No pericardial effusion. Normal esophagus. No mediastinal or hilar lymphadenopathy. No pleural effusion. No consolidation. Trachea and central airways are clear. No significant bronchial wall thickening. No bronchiectasis. Spleen is enlarged measuring up to 14.9 cm in width, previously measured 14.8 cm. No acute fracture or suspicious bone lesion. IMPRESSION: 1. No evidence of pulmonary embolism within the main or lobar pulmonary arteries. Motion and contrast bolus timing limits evaluation of the distal pulmonary arteries. 2. No acute intrathoracic findings. No evidence of pneumonia. 3. Similar appearance of splenomegaly and enlarged left axillary lymph nodes. This document has been electronically signed by: Rahul Chapin MD on 04/28/2025 19:57:53
[2025-04-28 16:38] VITALS: BP 140/79; BP 142/90; PULSE 88; PULSE 96; RESP 18; TEMP 37.3; O2SAT 100; O2SAT 97
--- NOTE | 2025-04-28 16:46 | ECG_ITS ---
Test Reason : OVER DOSE Blood Pressure : */* mmHG Vent. Rate : 88 BPM Atrial Rate : 88 BPM P-R Int : 166 ms QRS Dur : 94 ms QT Int : 396 ms P-R-T Axes : 50 34 52 degrees QTcB Int : 479 ms Normal sinus rhythm Normal ECG When compared with ECG of 01-Mar-2025 19:24, No significant change was found Referred By: Generic ED Physician Electronically Signed By: Jameson Bellamy
[2025-04-28 16:53] VITALS: PULSE 88; O2SAT 98
--- NOTE | 2025-04-28 16:55 | PC.NURSE ---
Addendum entered by Aimee Vazquez RN 04/28/25 17:01: Pt refusing labs at this time, pt agreeable to attempt lab draw again little while Original Note: Pt BIBA from home after collapsing in kitchen and receiving Narcan x 1 dose by family member. Pt is A/O x 3 on arrival, report pain in BUE. Dressings noted to BUE- pt states he has chronic wounds from drug use. Changed over with security and belongings placed on [employer] shelf 3. EKG obtained and lab collection pending..
--- NOTE | 2025-04-28 17:22 | ED.OVERDOSE ---
HPI - Overdose General Chief Complaint: Overdose Stated Complaint: 9mg narcan given, did 9 bags today, methadone pt Time Seen by Provider: 04/28/25 17:00 Source: patient, EMS and old records reviewed Mode of arrival: ambulatory Limitations: no limitations History of Present Illness ED Provider: Lizbeth Mcclelland PA-C HPI Narrative: This is a 35yo male with a PMH of urinary retention, poly-substance use disorder, mood disorder, and major depressive disorder presents to the ED after an apparent accidental overdose. Patient reports that upon waking this morning he used approximately 9 bags of cocaine and heroin. His mother, who was at home at the time, administered Narcan and called 911. He denies chest pain, cough, shortness of breath, palpitations, trauma, headache, or abdominal pain. MD complaint: accidental overdose Onset (ago): minute(s) Intent: unknown How Overdose Was Discovered: called 911 Context: Intentional Overdose: drug/ETOH problems Context: Accidental Overdose: wanted to get high Associated symptoms: depression Treatments Prior to Arrival: narcan Related Data Home Medications ?Medication ?Instructions ?Recorded ?Confirmed methadone 10 mg/mL oral 170 mg PO DAILY 10/13/23 03/04/25 concentrate (Methadone Intensol) clonazepam 1 mg tablet 1 mg PO TID 02/28/24 03/02/25 clonidine HCl 0.1 mg tablet 0.1 mg PO TID 02/28/24 03/02/25 gabapentin 300 mg capsule 300 mg PO BEDTIME 02/28/24 03/02/25 gabapentin 600 mg tablet 600 mg PO TID 02/28/24 03/02/25 mirtazapine 7.5 mg tablet 7.5 mg PO BEDTIME 02/28/24 03/02/25 quetiapine 100 mg tablet 100 - 200 mg PO BEDTIME PRN 02/28/24 03/02/25 Insomnia escitalopram oxalate 10 mg tablet 10 mg PO DAILY 02/01/25 03/02/25 Previous Rx's ?Medication ?Instructions ?Recorded doxycycline monohydrate 100 mg 100 mg PO BID 7 days #14 tabs 03/04/25 tablet Allergies Allergy/AdvReac Type Severity Reaction Status Date / Time Pertussis Vaccines Allergy Mild HIVES Verified 04/28/25 16:43 (PERTUSSIS VACCINES) haloperidol (From Haldol) Allergy Anaphylaxis Verified 04/28/25 16:43 Review of Systems Review of Systems: Constitutional : No Fever, No Chills ENT/Mouth : No sore throat, No Rhinorrhea Eyes: No Eye Pain, No Swelling, No Redness Cardiovascular : No Chest Pain, No SOB Respiratory : No Cough, No Sputum Gastrointestinal : No Nausea, No Vomiting, No Diarrhea, No abdominal Pain Genitourinary : No Dysuria, No Hematuria Musculoskeletal : No joint pain, No Myalgias, No Joint Swelling Skin : No Skin Lesions Neuro : No Weakness, No Numbness, No Headache All other systems reviewed and are negative Yes all other systems are reviewed and are negative Constitutional: Constitutional: Reports as per HPI [facility] Past Medical History Medical History Bacteremia Arm ulcer MRSA bacteremia Suicidal ideation Depression Cocaine use with cocaine-induced disorder Opiate dependence, continuous Major depressive disorder, recurrent severe without psychotic features Depression Anxiety IVDU (intravenous drug user) Asthma Surgical History History of surgery on right wrist History of surgery (10/02/24) Family History Family History Father Heart disease Social History Social History Household Members: Family Household Members Other:: mother Housing: House Housing Other:: lives with parents Are you a primary home care physical therapist to a significant other at home: No Do you presently have visiting nurse or other home services: No Alcohol intake: unknown Comment: COUNTS CORRECT Patient Tobacco Use Status: Current everyday Tobacco user Tobacco use type: Cigarette Cigarette Packs Per Day: 1 Cigarettes Per Day: 20.0 Years Smoked: 10 Smoked in Last 30 Days: Yes e-Cigarette/Vaping Use: Never Used Second Hand Smoke Exposure: Yes Use of substances other than those prescribed or required for medical reasons: Yes Substance Use Type: Heroin Substance Use Frequency: Daily Substance Use Frequency Other:: approx 6-7 bags/day Last Used Substance: Just Prior to Admission Advance Directives: No Advance Directives Information Provided: Yes Advance Directives Date on File: 01/30/21 service: No Current occupational status: unemployed Sexual orientation: Straight/Heterosexual Physical Exam Vital Signs: Vital Signs: Last Vital Signs Temp 99.2 F 04/28/25 16:38 Pulse 79 04/28/25 19:54 Resp 18 04/28/25 19:54 BP 103/67 04/28/25 19:54 Pulse Ox 97 04/28/25 19:54 O2 Del Method Room Air 04/28/25 19:54 BMI result Body Mass Index 30.0 Const: General: awake, ill appearing, lethargic and tired appearing Orientation/consciousness: patient oriented x3 and lethargic Limitations: no limitations HEENT: Head: Yes normocephalic and Yes atraumatic Ears: hearing grossly normal bilaterally General nose exam: Normal external nose present Face and sinus: Yes normal facial exam Mouth: Normal oral and palatal mucosa present, oropharynx normal and moist mucous membranes Throat: Yes posterior oropharynx normal Eyes: General: appearance normal, both eyes and all related structures Eyelids: Yes eyelids normal Conjunctivae: conjunctivae normal Sclerae: sclerae normal Pupils: Equal, round and reactive pupils present EOM: EOMs intact bilaterally Direct Ophthalmoscopy: normal light reflex Neck: Neck: Yes normal visual inspection, Yes full ROM and Yes no lymphadenopathy Lymphatic: no lymphadenopathy noted Chest: Chest palpation & inspection: normal inspection of the chest Resp: Effort & Inspection: normal respiratory effort Auscultation: clear to auscultation bilaterally Cardio: Rate: regular rate Rhythm: regular rhythm Heart sounds: S1 normal heart sound present and S2 normal heart sound present GI: Other: rectal examination with light brown stool. Inspection: Yes normal to inspection Auscultation: normal bowel sounds Skin: Other: Left forearm with extensive old chronic wounds noted, with surrounding erythema and warmth, extending into the dorsum of the left hand. Right arm overlying the posterior forearm just distal to the olecranon there is a old chronic wound noted, no surrounding erythema. General skin exam: no rashes or lesions noted Trauma: no lacerations or abrasions Wounds: no wounds Neuro: General: patient oriented x3 and moves all extremities Cranial nerves: Yes Equal, round and reactive pupils present Extrem: General: Yes normal to inspection Right upper extremity: normal to inspection Left upper extremity: normal to inspection Right lower extremity: normal to inspection Left lower extremity: normal to inspection Psych: Mental Status: mental status grossly normal Speech and movement: Slowed movement present (Neuro) Affect: Indifferent affect present Medications Administered Discontinued Medications Generic Name Dose Route Start Last Admin Trade Name Freq PRN Reason Stop Dose Admin Acetaminophen 1,000 mg in 100 mls @ 400 mls/hr 04/28/25 18:05 04/28/25 18:51 Ofirmev IV 04/28/25 18:19 Infused ONCE ONE Infusion Vancomycin HCl 2,000 mg in 500 mls @ 250 mls/hr 04/28/25 18:05 04/28/25 18:32 Vancomycin/Ns IV 04/28/25 20:04 250 mls/hr ONCE ONE Administration Doxycycline Hyclate 100 mg/ 250 mls @ 166.67 mls/hr 04/28/25 18:05 04/28/25 18:26 Sodium Chloride IV 04/28/25 19:34 166.67 mls/hr ONCE ONE Administration Iohexol 100 ml 04/28/25 19:25 04/28/25 19:25 Iohexol 350 Mg/Ml 100 Ml Infus..Btl IV 04/28/25 19:26 60 ml ONCE ONE Administration Medical Decision Making Medical Decision Making MDM Narrative: 35 yo male with a history of cocaine use disorder, opioid use disorder, tobacco use disorder, major depressive disorder, and mood disorder presents after reported use of 9 bags of cocaine and heroin this morning. Most likely diagnosis is acute opoid overdose given heroin use and reversal with naloxone. Cocaine intoxication also considered given concurrent reported use, which carries risk of arrhythmia. myocardial ischemic, and agitation, through patient is currently hemodynamically stable without chest pain, palpitations, and a NSR ECG was obtained. Polysubstance overdose considered given the combination of stimulants and opoids, placing the patient at a higher risk of cardiovascular and respiratory complications. Aspiration event considered but less likely given absence of respiratory distress, cough, or hypoxia. Trauma considered but less likely as no injury or fall was reported. Diagnostics ordered include CBC, CMP, UA, drug screen, lactic acid, ethanol, salicylate, CK, EKG, and CT angiography. Clinical picture is most consistent with opiod overdose in the setting of polysubstance use, improved after naloxone. 8:19 PM 04/28/2025 (Lizbeth Mcclelland PA-C): Labs returned, he has no leukocytosis, he does have a microcytic anemia with an H&H of 7.3/26.2, previous H&Hs reveal similar however this is about 1 unit lower. Chemistry revealing no significant electrolyte derangement. Troponin less than 2.7, CPK 36. Patient has extensive wounds noted to his upper extremities, he has a history of chronic wounds however they do appear to be cellulitic in nature. He already is seeing Wound Care for this. CTA was obtained, no PE noted. EKG within normal ranges. Reviewed case with my attending physician, Dr. Carlos, left arm does appear to be more cellulitic in nature, patient would benefit from admission for cellulitis. Sent message to Dr. Valderrama for admission given anemia, cellulitis. Sign out given to Akosua Velásquez pending ?admission. Differential Diagnosis Differential Diagnoses: The differential diagnosis associated with the presentation includes Admission/Observation Consideration of admission/observation: Escalation of care including admission/observation considered Lab Data [facility] Lab Attestation statement: I reviewed the patient's lab results. See MDM and course 04/28/25 18:19 04/28/25 18:19 Labs: Lab Results 04/28/25 04/28/25 04/28/25 Range/Units 18:18 18:19 20:50 WBC 8.4 (4.8-10.8) X10*3/uL RBC 4.33 L (4.60-5.80) X10*6/uL Hgb 7.3 L (14.0-18.0) g/dl Hct 26.2 L (42.0-52.0) % MCV 60.5 L (80.0-98.0) fL MCH 16.9 L (27.0-33.0) pg MCHC 27.9 L (31.0-36.0) g/dl RDW 18.6 H (11.0-16.0) % Plt Count 360 (160-400) X10*3/uL MPV 9.4 (9.4-12.4) fL Immature Gran % (Auto) 0.6 H (0.0-0.4) % Neut % (Auto) 82.2 H (45-73) % Lymph % (Auto) 9.9 L (20-40) % Cook % (Auto) 6.5 (2-11) % Eos % (Auto) 0.6 (0-4) % Baso % (Auto) 0.2 (0-2) % Lymph # (Auto) 0.8 L (1.2-4.9) X10*3/uL Cook # (Auto) 0.5 (0.1-1.2) X10*3/uL Eos # (Auto) 0.1 (0.0-0.4) X10*3/uL Baso # (Auto) 0.0 (0.0-0.2) X10*3/uL Abs Immat Gran (auto) 0.05 H (0.00-0.03) X10*3/uL Absolute Neuts (auto) 6.9 (2.0-8.3) x10*3/uL Absolute Nucleated RBC 0.000 (0.0-0.012) X10*3/uL Nucleated RBC % (auto) 0.0 (0.0-0.2) /100WBC Sodium 141 (135-145) mmol/L Potassium 4.0 (3.3-5.1) mmol/L Chloride 108 (96-108) mmol/L Carbon Dioxide 26 (22-29) mmol/L Anion Gap 11 L (12-20) BUN 20 H (9-16) mg/dL Creatinine 0.61 (0.5-1.4) mg/dL Estim Creat Clear Calc 189.5 Estimated GFR > 60 Random Glucose 94 (60-115) mg/dL Lactic Acid 0.7 (0.5-2.0) mmol/L Calcium 9.3 (8.4-10.2) mg/dL Total Bilirubin 0.2 (0.0-1.0) mg/dL AST 21 (5-37) U/L ALT 12 (0-40) U/L Alkaline Phosphatase 77 (39-117) U/L Total Creatine Kinase 36 L (38-174) U/L Troponin I High Sens < 2.7 (<3.5-35.0) ng/L Total Protein 7.4 (6.5-8.0) g/dL Albumin 4.2 (3.5-5.0) g/dL Stool Occult Blood NEGATIVE (NEGATIVE) Salicylates < 5.0 L (15-30) mg/dL Ethyl Alcohol < 10 mg/dL Independent Interpretation I performed an independent interpretation of an: EKG Interpretation: Normal sinus rhythm at a ventricular rate of 88 beats per minute, VA interval 166, QT QTC 396/476, no STEMI Radiology Impression Discussion of test interpretation with radiology: I have reviewed the radiologist's reading. Radiologist Impression: COMPARISON: CT abdomen and dated 03/02/25 at 00:[address] chest dated 09/27/24 at 11:39 EST FINDINGS: Motion and contrast bolus timing limits evaluation of the distal pulmonary arteries. No intraluminal filling defects within the main or lobar pulmonary arteries to suggest pulmonary embolism. No evidence of right heart strain. RV to LV ratio of 0.9. Visualized thyroid is unremarkable. Multiple enlarged left axillary lymph nodes. For example left axillary lymph node measuring 2.5 x 1.8 cm (series 7, image 26), previously measured 2.0 x 1.7 cm. Ascending aorta and main pulmonary artery are normal in caliber. No pericardial effusion. Normal esophagus. No mediastinal or hilar lymphadenopathy. No pleural effusion. No consolidation. Trachea and central airways are clear. No significant bronchial wall thickening. No bronchiectasis. Spleen is enlarged measuring up to 14.9 cm in width, previously measured 14.8 cm. No acute fracture or suspicious bone lesion. IMPRESSION: 1. No evidence of pulmonary embolism within the main or lobar pulmonary arteries. Motion and contrast bolus timing limits evaluation of the distal pulmonary arteries. 2. No acute intrathoracic findings. No evidence of pneumonia. 3. Similar appearance of splenomegaly and enlarged left axillary lymph nodes. This document has been electronically signed by: Rahul Chapin MD on 04/28/2025 19:57:53 Dictated By: Rahul Chapin MD Critical Care Time Critical Care Time Critical Care Time: Yes Total Critical Care Time: 40 Attestation: I have personally provided critical care time exclusive of time spent on separately billable procedures. Time includes review of lab data, radiology results, discussion with consultants, and monitoring for potential decompensation. Intervention performed as documented. Discharge Plan Discharge Clinical Impression: Cellulitis, Overdose, Microcytic anemia Patient Disposition: Admitted As Inpatient Print Language: Chinese
--- OUTSIDE RECORDS SUMMARY | 2025-04-28 17:46 | XMS_ITS | Clinical Summary ---
Author Organization [facility] Address [address] [place] [address] Phone Care Team Providers Care Dental Director Name Role Phone Unknown, Unknown MD Primary [...] file Medical Devices Not on file Insurance [employer] [place] [address] [place] [id number] ACO [facility] [facility] Care Teams Dental Director Relationship Specialty Start Date End Date Unknown, Unknown, PCP - General 03/04/24 Additional Source Comments The information contained in this document represents components of the legal health record. It is not the complete legal health record.[facility]
--- OUTSIDE RECORDS SUMMARY | 2025-04-28 17:46 | XMS_ITS ---
Author Name [facility] Organization Unknown Care Team Organization Name Specialty Phone Email Start Date End Da te [facility] ZIA CRUZ Primary Care 06/08/2022 4
--- OUTSIDE RECORDS SUMMARY | 2025-04-28 17:46 | XMS_ITS | Clinical Summary ---
Author Organization [facility] Address [address] [place] [address] Phone Care Team Providers Care Quality Rep Name Role Phone Orlando Mahmood MD Primary Care Provider [phone] Allergies Active Allergy Reactions Criticality Noted Date Comments Haloperidol Cardiac Issue High 06/12/2024 PT reports tardive dyskinesia as a reaction to taking haldol. Pertussis Vaccine,Adsorbed Unknown High 06/12/2024 PT reports unaware of reaction type told my parent Medications methadone (DOLOPHINE) 10 mg/mL concentrated solution Take 17 mL (170 mg total) by mouth 1 (one) time each day. Active gabapentin (NEURONTIN) 600 mg tablet Take [...] mouth 3 (three) times a day. Active baclofen (LIORESAL) 10 mg tablet Take [...] day. 50 g 4 06/14/20 25 Active Additional Information Patient not taking.Reported on 03/08/2025 escitalopram (LEXAPRO) 10 mg tablet Take 1 tablet (10 mg total) by mouth 1 (one) time each day in the morning. 5 Active omeprazole (PriLOSEC) [address] capsule Take 1 capsule (20 mg total) by mouth 1 (one) time each day. Do not crush or chew. 90 capsule 1 5 09/04/19 26 Active ferrous sulfate 325 mg (65 mg iron) EC tablet Take 1 tablet (325 mg total) by mouth 3 (three) times a day with meals. Do not crush, chew, or split. 90 each 11 5 03/08/20 26 Active Active Problems Problem Noted Date Diagnosed Date Opioid use disorder, severe, dependence (CMS/[facility] V24, [facility] V28) 06/12/2024 Active intravenous drug use 06/12/2024 Resolved Problems Problem Noted Date Diagnosed Date Resolved Date Cellulitis and abscess of upper extremity 06/12/2024 06/14/2024 Lower extremity cellulitis 06/12/2024 1 08/14/2023 Microcytic anemia 06/12/2024 06/14/2024 Tobacco dependence due to cigarettes 06/12/2024 06/14/2024 Encounters Date Type Department Care Team Description 03/20/2025 3:26 PM EDT - 03/20/2025 3:53 PM EDT Emergency [facility] Emergency [address] [place] [address] Discharge Disposition: Home or Self Care 03/11/2025 Telephone Adult Medicine [address] [phone] Orlando Mahmood MD 03/08/2025 1:30 PM EDT Office Visit Adult Medicine [address] [phone] Orlando Mahmood MD Polysubstance abuse ([facility] V24, [facility] V28) (Primary Dx); Iron deficiency anemia, unspecified iron deficiency anemia type; Leukocytosis, unspecified type; Gastroesophageal reflux disease, unspecified whether esophagitis present; Active intravenous drug use; Chronic wound 02/12/2025 Telephone Adult Medicine [address] [phone] Stanley Walls RN from Last 3 Months Immunizations Immunization Administration Dates Next Due DTP 1990 [id number] (Pentacel) 2mo to less than 5yo 08/10/1991,1990,1990,1989 [...] ulna; COMMENT: fracture distal radius and ulna PR (myocardial infarction) ( [facility] V24, [facility] V28) 2017 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6 oz pur e alcohol) Interpersonal Safety Answer Date Record ed Physical Abuse Unrecognized value 06/13/2024 Verbal Abuse Unrecognized value 06/13/2024 Sex and Gender Information Value Date Recorded Sex Assigned at Male 06/12/2024 5:36 PM EST Legal Sex Male 9:04 PM EST Gender Identity Male 06/12/2024 5:36 PM EST Sexual Orientation Not on file Obstetrics History Last Filed Vital Signs Vital Sign Reading Time Taken Comments Blood Pressure 114/74 03/08/2025 1:25 PM EDT Pulse 86 03/08/2025 1:25 PM EDT Temperature 36.4 C (97.6 F) 03/08/2025 1:25 PM EDT Respiratory Rate 14 03/08/2025 1:25 PM EDT Oxygen Saturation 98% 03/08/2025 1:25 PM EDT Inhaled Oxygen Concentration - - Weight 91.6 kg (202 lb) 03/08/2025 1:25 PM EDT Height 177.8 cm (5' 10 ) 03/08/2025 1:25 PM EDT Body Mass Index 28.98 03/08/2025 1:25 PM EDT Plan of Treatment Upcoming Encounters Date Type Department Care Team (Late st Contact Info) Description 06/12/2025 1:40 PM EST Consult Gastroenterology - [place] [address] [facility] [address] [place] [id number] Holly Anderson NP [address] [facility] [address] [place] [address] Health Maintenance Due Date Last Done Comments Diabetes: Annual Foot Exam 2000 Diabetes: Annual Retina Eye Exam 2000 Hepatitis A Vaccines (1 of 2 - Risk 2-dose series) 2009 Hepatitis B Vaccines (1 of 3 - 19+ 3-dose series) 2009 HPV Vaccines (1 - 3-dose SCDM series) 2017 Pneumococcal Vaccine: Pediatrics (0 to 5 Years) and At-Risk Patients (6 to 49 Years) (2 of 2 - PCV) 08/19/2018 08/19/2017 HIV Screening 07/03/2022 Hepatitis C Screening 07/03/2022 Social Influencers of Health Screening 07/03/2022 Diabetes: Annual Urine Albumin-Creatinine Ratio (uACR) 07/17/2022 Depression Screening 08/01/2024 Diabetes: Blood Sugar Control Test (HGBA1C) 12/10/2024 06/12/2024 COVID-19 Vaccine ( season) 2025 06/16/2022, 03/17/2022, 03/27/2021 Influenza Vaccine (#1) 2025 , 05/22/2020, 05/14/2017, Additional history exists Cholesterol Screening (Lipid Panel) 05/22/2025 05/22/2020 Diabetes: Annual GFR (Glomerular Filtration Rate) 06/14/2025 06/14/2024, 06/12/2024, 06/12/2024, Additional history exists DTaP,Tdap,and Td Vaccines (8 - Td or Tdap) 05/22/2030 05/22/2020, 03/19/2002, 05/03/1995, Additional history exists RSV Immunization Adult Patients (1 - 1-dose 75+ series) 2065 HIB Vaccines Completed 08/10/1991, 08/01, 1990, Additional history exists MMR Vaccines Completed 08/10/1991 IPV Vaccines Completed 05/03/1995, 10/31, 08/10/1991, Additional history exists Meningococcal ACWY Vaccine Aged Out N o longer eligible based on patient's age to complete this topic Meningococcal B Vaccine Aged Out No l onger eligible based on patient's age to complete this topic RSV Immunization Patients Under 20 months Aged Out No longer eligible based on patient's age to complete this topic Varicella Vaccines Aged Out No longer eligible based on patient's age to complete this topic Procedures Procedure Name Priority Date/Time Associated Diagnosis Comments CBC WITH AUTO DIFFERENTIAL Routine 03/08/2025 2:30 PM EDT Iron deficiency anemia, unspecified iron deficiency anemia type Leukocytosis, unspecified type CBC AND DIFFERENTIAL Routine 03/08/2025 2:30 PM EDT Iron deficiency anemia, unspecified iron deficiency anemia type Leukocytosis, unspecified type BASIC METABOLIC PANEL Routine 06/14/2024 8:23 AM EST HEMOGLOBIN A1C Add-On 06/12/2024 6:46 PM EST LIPID PANEL Routine 05/22/2020 from Last 3 Months or Most Recently Relevant to Health Maintenance Results * (ABNORMAL) CBC auto differential (03/08/2025 2:30 PM EDT) WBC 7.5 4.8 - 10.8 K/mcL LAB HEMETOLOGY METHOD 03/08/2025 4:47 PM EDT [facility] RBC 5.00 4.50 - 5.50 M/mcL LAB HEMETOLOGY METHOD 03/08/2025 4:47 PM EDT [facility] Hemoglobin 8.9(L) 13.5 - 17.5 g/dL LAB HEMETOLOGY METHOD 03/08/2025 4:47 PM EDT [facility] Hematocrit 32.5(L) 42.0 - 54.0 % LAB [facility]OLOGY [facility] MCV 64.6(L) 79.0 - 98.0 FL LAB HEMETOLOGY METHOD [facility]25 [facility] MCH 17.7(L) 27.0 - 32.0 pcg LAB HEMETOLOGY METHOD 03/[facility]25 [facility] MCHC 27.4(L) 32.0 - 37.0 g/dL LAB HEMETOLOGY METHOD 03/08/2025 4:47 PM [facility] RDW 20.9(H) 11.0 - 15.0 % LAB HEMETOLOGY METHOD 03/08/2025 4:47 PM [facility] Platelets 395 130 - 400 K/mcL LAB HEMETOLOGY METHOD 03/08/2025 4:47 PM [facility] MPV 10.5 7.0 - 11.0 FL LAB HEMETOLOGY METHOD 03/08/2025 4:47 PM [facility] NRBC 0.0 <1.0 % LAB HEMETOLOGY METHOD 03/08/2025 4:47 PM [facility] NRBC Absolute 0.00 <0.10 K/mcL LAB HEMETOLOGY METHOD 03/08/2025 4:47 PM [facility] Neutrophils Relative 56.4 % LAB HEMETOLOGY METHOD 03/08/2025 4:47 PM [facility] Lymphocytes Relative 27.2 % LAB HEMETOLOGY METHOD [facility] Monocytes Relative 11.3 % LAB HEMETOLOGY METHOD 03/08/2025 4:47 PM [facility] Eosinophils Relative 4.5 % LAB HEMETOLOGY METHOD 03/08/2025 4:47 PM EDT [facility] Basophils Relative 0.3 % LAB HEMETOLOGY METHOD 03/08/2025 4:47 PM EDT [facility] Immature Granulocytes Relative 0.3 % LAB HEMETOLOGY METHOD 03/08/2025 4:47 PM EDT [facility] Neutrophils Absolute 4.22 1.50 - 7.00 K/mcL LAB HEMETOLOGY METHOD 03/08/2025 4:47 PM EDT [facility] Lymphocytes Absolute 2.04 1.00 - 5.00 K/mcL LAB HEMETOLOGY METHOD 03/08/2025 4:47 PM EDT [facility] Monocytes Absolute 0.85 0.20 - 1.00 K/mcL LAB HEMETOLOGY METHOD [facility] Eosinophils Absolute 0.34 0.00 - 0.50 K/mcL LAB HEMETOLOGY METHOD 03/08/2025 4:47 PM EDT [facility] Basophils Absolute 0.02 0.00 - 0.20 K/mcL LAB HEMETOLOGY METHOD 03/08/2025 4:47 PM EDT [facility] Immature Granulocytes Absolute 0.02 0.00 - 0.03 K/mcL LAB HEMETOLOGY METHOD 03/08/2025 4:47 PM [facility] Blood Venous blood specimen / Unknown Venipuncture / Unknown 03/08/2025 2:30 PM EDT 03/08/2025 2:30 PM EDT us Orlando Mahmood MD LAB BLOOD ORDERABLES Final Resu lt [facility] [address] [place] [address], * (ABNORMAL) Basic metabolic panel (06/14/2024 8:23 AM EST) Pathologist [facility] Sodium 143 133 - 145 mmol/L LAB CHEMISTRY METHOD 06/14/2024 9:25 AM [facility] Potassium 4.2 3.5 - 5.5 mmol/L LAB CHEMISTRY METHOD 06/14/2024 9:25 AM [facility] Chloride 112(H) 96 - 110 mmol/L LAB CHEMISTRY METHOD 06/14/2024 9:25 AM [facility] CO2 27 21 - 32 mmol/L LAB CHEMISTRY METHOD 06/14/2024 9:25 AM [facility] Anion Gap 4 3 - 11 LAB CHEMISTRY METHOD 06/14/2024 9:25 AM [facility] Glucose 81 70 - 100 mg/dL LAB CHEMISTRY METHOD 06/14/2024 9:25 AM [facility] BUN 6 5 - 25 mg/dL LAB CHEMISTRY METHOD 06/14/2024 9:25 AM [facility] Comment:Results verified by repeat testing Creatinine 0.68(L) 0.70 - 1.30 mg/dL LAB CHEMISTRY METHOD 06/14/2024 9:25 AM [facility] eGFR 125 >=60 mL/min/1. 73m2 LAB CHEMISTRY METHOD 06/14/2024 9:25 AM [facility] Comment:Calculation based on the Chronic Kidney Disease Epidemiology Collaboration (CKD-EPI) equation refit without adjustment for race. BUN/Creatinine Ratio 8.8 LAB CHEMISTRY METHOD 06/14/2024 9:25 AM [facility] Calcium 9.7 8.5 - 10.5 mg/dL LAB CHEMISTRY METHOD 06/14/2024 9:25 AM [facility] Blood Venous blood specimen / Unknown Venipuncture / Unknown 06/14/2024 8:23 AM EST 06/14/2024 8:43 AM EST us Lupillo Mcbride MD LAB BLOOD ORDERABLES Final Resul t [facility] [address] [place] [address], [place] [phone] * Hemoglobin A1c (06/12/2024 6:46 PM EST) [facility] Hemoglobin A1C 6.3 <6.5 % LAB CHEMISTRY METHOD 06/13/2024 12:53 PM EST [facility] Mean Bld Glu Estim. 134 mg/dL LAB CHEMISTRY METHOD 06/13/2024 12:53 PM EST [facility] Blood Venous blood specimen / Unknown Venipuncture / Unknown 06/12/2024 6:46 PM EST 06/12/2024 6:51 PM EST Aaron Cooper MD LAB BLOOD ORDERABLES Final Result [facility] [address] [place] [address], [place] [phone] * (ABNORMAL) Lipid panel (05/22/2020) [facility] LDL/HDL Ratio 8(A) 0 - 4 Triglycerides 303(A) 0 - 150 mg/dL Cholesterol 186 0 - 200 mg/dL HDL 24(A) >=40 mg/dL LDL Cholesterol 102(A) 0 - 100 mg/dL Blood Venous blood specimen / Unknown Sandro Lopez MD LAB BLOOD ORDERABLES Zulma l Result from Last 3 Months or Most Recently Relevant to Health Maintenance Additional Health Concerns Infection Onset Date Last Indicated MRSA 06/12/2024 06/12/2024 Insurance [facility] [employer] [facility] Advance Directives * Full Code - [...] currently active code status orders. Care Teams Quality Rep Relationship Specialty Start Date End Date Orlando Mahmood MD [address] [place] [phone] PCP - General Internal Medicine 06/12/24
--- NOTE | 2025-04-28 17:50 | PC.NURSE ---
Addendum entered by Aimee Vazquez RN 04/28/25 18:39: Additional RN able to obtain IV on pt right foot, provider aware. Mediations per MAR Original Note: Provider pt not allowing labs, ED PA at bedside. Notified provider of pt oral temp and appears to be diaphoretic, also reports chest pain. Dressing removed from BUE and wounds assessed by provider. Attempting to get labs and IV access, pt difficult stick.
[2025-04-28 18:26] LABS: MANUAL DIFF FLAG NO
[2025-04-28] MEDS: vancomycin/NS 2,000 MG/500 ML PLAST..BAG 250 MG IV (18:32)
[2025-04-28 18:34] LABS: Hematocrit 26.2 % (42.0-52.0); Hemoglobin 7.3 g/dl (14.0-18.0); Imm Gran Abs Auto 0.05 X10*3/uL (0.00-0.03); Imm Gran Pct Auto 0.6 % (0.0-0.4); Lymphocytes Absolute Auto 0.8 X10*3/uL (1.2-4.9); Mean Corpuscular HGB Conc 27.9 g/dl (31.0-36.0); Mean Corpuscular Hemoglobin 16.9 pg (27.0-33.0); NRBC Abs Auto 0.000 X10*3/uL (0.0-0.012); NRBC Pct Auto 0.0 /100WBC (0.0-0.2); Platelet Count 360 X10*3/uL (160-400); Red Blood Count 4.33 X10*6/uL (4.60-5.80); White Blood Count 8.4 X10*3/uL (4.8-10.8)
[2025-04-28 18:52] LABS: Alanine Aminotransferase 12 U/L (0-40); Albumin Level 4.2 g/dL (3.5-5.0); Alkaline Phosphatase 77 U/L (39-117); Anion Gap 11 (12-20); Aspartate Amino Transferase 21 U/L (5-37); Blood Urea Nitrogen 20 mg/dL (9-16); Calcium 9.3 mg/dL (8.4-10.2); Carbon Dioxide 26 mmol/L (22-29); Chloride 108 mmol/L (96-108); Creatinine Clr Calc Pharmacy 189.5; Estimated Glomerular Filt Rate > 60; Potassium 4.0 mmol/L (3.3-5.1); Sodium 141 mmol/L (135-145); Total Protein 7.4 g/dL (6.5-8.0)
[2025-04-28 18:52] LABS: Salicylate < 5.0 mg/dL (15-30)
[2025-04-28 18:57] LABS: Troponin-I High Sensitivity < 2.7 ng/L (<3.5-35.0)
[2025-04-28 19:20] LABS: Mean Corpuscular Volume 60.5 fL (80.0-98.0)
[2025-04-28] MEDS: iohexoL 350 MG/ML 100 ML INFUS..BTL IV (19:25)
--- NOTE | 2025-04-28 19:27 | PC.NURSE ---
RN took over care of pt at 1900; pt is AxOx3. He is drowsy but arousable. He is diaphoretic. Afebrile; Pt able to make needs known. PT on environmental monitoring technician- will continue to monitor.
[2025-04-28 19:54] VITALS: BP 103/67; PULSE 79; RESP 18; O2SAT 97
[2025-04-28 20:56] LABS: OBS1 NEGATIVE (NEGATIVE)
[2025-04-28 20:57] LABS: OBS Int Ctl Valid YES
--- NOTE | 2025-04-28 21:45 | PM.IMHP ---
History of Present Illness Date of Service: 04/28/25 Attending physician on admission: Dominic Valderrama Chief Complaint: overdose Pt is a 35 yo male with PMH ELMER (started 15 years ago) on methadone, use of IVD and continuing upper arm infections in B forearms (L hand dominant), Bacteremia, urinary retention, Tobacco dependnece, MDD, chromic anemia BIBA after being receiving narcan for taking 9 baggies of heroin. Pt was found by his mother and administered the narcan and then called 911. Pt has notable wounds on B forearms from IVDA. Pt states he obtains his methadone weekly and took his last dose yesterday. Pt states he was not feeling suicidal when he took the large amount of heroin. Pt states it was accidental. Pt states this is it, I want to live . Pt denies current chest pain, SOB at rest, is alert and orientated X3, able to participate in exam and answer questions, follow commands and can protect his airway. Request from ED for admisison for B cellulitis from IVDA and pt is asking for help with his addiction. Pt currently denies CP, SOB at rest, JUNIOR, abd pain, N/V but has been having chills and fever over the last few weeks intermittently. Pt wore long sleeves when picking up his methadone. Pt was following with wound care, but reports noncompliance. Pt has not sought medical care for noted wounds. Pt denies hx of Hep C, B and HIV and is ok with testing this admission. Pt denies issues with alcohol use. Work up in ED notes CTA to rule out PE and septic emboli of the lungs. CTA neg for PE with no acute intrathoracic findings including PNA. Splenomagly noted and plts are WNL. Enlarged left axillary lymph nodes also reported. Pt currently afebrile, no luekocytosis, hemodynamics relatively stable with HR sometimes dipping in the 50s with normal GA and Qtc 479. MG pending. H/H 7.3/26.2, repeat H/H pending. Stool for occult in ED negative. Pt was started on Vancomycin and Doxycyline but changing to Vanco and ANcef for now. BC pending. UA pending. Urine toxicology screen also pending. Upon review of pt's medical record, pt did have surgery with Dr. Prakash September of 2024 for ulcers on B upper exteremities. Review of Systems Review of Systems: Pt currently denies CP, SOB at rest, JUNIOR, abd pain, N/V but has been having chills and fever over the last few weeks intermittently. Pt wore long sleeves when picking up his methadone. Pt has not sought medical care for noted wounds. Yes all other systems are reviewed and are negative [facility] Medical History Prediabetes Bacteremia Arm ulcer MRSA bacteremia Suicidal ideation Depression Cocaine use with cocaine-induced disorder Opiate dependence, continuous Major depressive disorder, recurrent severe without psychotic features Depression Anxiety IVDU (intravenous drug user) Asthma Cognitive capacity: A?O X3 Functional capacity: independent ambulation Family History Father Heart disease Surgical History History of surgery on right wrist History of surgery (10/02/24) Social History Household Members: Other Household Members Other:: mom Housing: House Housing Other:: lives with parents Are you a primary home care music therapist to a significant other at home: No Do you presently have visiting nurse or other home services: No Alcohol intake: unknown Comment: COUNTS CORRECT Patient Tobacco Use Status: Current everyday Tobacco user Tobacco use type: Cigarette Cigarette Packs Per Day: 1 Cigarettes Per Day: 20.0 Years Smoked: 10 Smoked in Last 30 Days: Yes e-Cigarette/Vaping Use: Currently Using Patient Interested in Nicotine Replacement: Yes Patient Given Instructions on How to Stop Smoking: Yes Date Education Initiated: 04/29/25 Second Hand Smoke Exposure: No Use of substances other than those prescribed or required for medical reasons: Yes Substance Use Type: Heroin Substance Use Frequency: Daily Substance Use Frequency Other:: approx 6-7 bags/day Last Used Substance: Just Prior to Admission Have you been hit, kicked, punched, or otherwise hurt by someone within the past year? If so, by whom?: No Do you feel safe in your current relationship?: Yes Is there a partner from a previous relationship who is making you feel unsafe now?: No Are you made to feel afraid or neglected: No Advance Directives: No Advance Directives Information Provided: Yes Advance Directives on File: No Advance Directives Date on File: 01/30/21 Do you have a plan to hurt others: No Plan Recently lost weight without trying: No Eating poorly because of decreased appetite: No Nutrition Risks: No Nutritional Risk Poor oral hygiene: No service: No Current occupational status: unemployed Sexual orientation: Straight/Heterosexual Meds Allergies Allergy/AdvReac Type Severity Reaction Status Date / Time Pertussis Vaccines Allergy Mild HIVES Verified 04/28/25 16:43 (PERTUSSIS VACCINES) haloperidol (From Haldol) Allergy Anaphylaxis Verified 04/28/25 16:43 Active Medications: Current Medications Acetaminophen (Acetaminophen 325 Mg Tablet) 650 mg PO Q6H PRN PRN Reason: Pain, Mild 1-3,fever,headache Albuterol/Ipratropium (Albuterol/Iprat 2.5/0.5mg 3 Ml Ampul.Neb) 3 ml INHALE Q4H PRN PRN Reason: Shortness of Breath/Wheezing Calcium Carbonate (Calcium Carbonate 750 Mg Tab.Chew) 750 mg PO Q4H PRN PRN Reason: Heartburn Enoxaparin Sodium (Enoxaparin Sodium 40 Mg/0.4 Ml Syringe) 40 mg SUBCUT Q24H SUKHDEEP Lactated Ringer's (Lr) 1,000 mls @ 100 mls/hr IVCONT .Q10H SUKHDEEP Magnesium Hydroxide (Milk Of Magnesia 30 Ml Oral.Susp) 30 ml PO DAILY PRN PRN Reason: Constipation Melatonin (Melatonin 3 Mg Tablet) 6 mg PO BEDTIME PRN PRN Reason: Insomnia Ondansetron HCl (Ondansetron Hcl 4 Mg/2 Ml Vial) 4 mg IVPUSH Q8H PRN PRN Reason: Nausea and Vomiting Polyethylene Glycol (Polyethylene Glycol 3350 17 Gm Powd.Pack) 17 gm PO DAILY PRN PRN Reason: Constipation Sodium Chloride (0.9 % Sodium Chloride Flush 3 Ml Syringe) 3 ml IVFLUSH QSHIFT [facility] Home Medications ?Medication ?Instructions ?Recorded ?Confirmed ?Last Taken ?Type methadone 10 mg/mL oral 170 mg PO DAILY 10/13/23 03/04/25 03/03/25 History concentrate (Methadone Intensol) clonazepam 1 mg tablet 1 mg PO TID 02/28/24 03/02/25 02/27/24 20:00 History clonidine HCl 0.1 mg tablet 0.1 mg PO TID 02/28/24 03/02/25 02/27/24 20:00 History gabapentin 300 mg capsule 300 mg PO BEDTIME 02/28/24 03/02/25 02/26/24 21:00 History gabapentin 600 mg tablet 600 mg PO TID 02/28/24 03/02/25 02/27/24 17:00 History mirtazapine 7.5 mg tablet 7.5 mg PO BEDTIME 02/28/24 03/02/25 02/26/24 21:00 History quetiapine 100 mg tablet 100 - 200 mg PO BEDTIME PRN 02/28/24 03/02/25 Unknown History Insomnia escitalopram oxalate 10 mg tablet 10 mg PO DAILY 02/01/25 03/02/25 Unknown History Physical Exam Vital Signs and Narrative: Vital Signs: Last Vital Signs Temp 99.2 F 04/28/25 16:38 Pulse 79 04/28/25 19:54 Resp 18 04/28/25 19:54 BP 103/67 04/28/25 19:54 Pulse Ox 97 04/28/25 19:54 O2 Del Method Room Air 04/28/25 19:54 BMI result Body Mass Index 30.0 Alert and orientated X3, groggy initially once awake able to protect airway and answer questions and follow commands Neuro: CN II-X11 intact, no deficits, visual acuity intact EYES: PERRLA, EOM intact, sclerae nonicteric ENT: hearing intact, no issues with swallowing, uvula midline, lips moist, nares patent no epistaxis Cardiac: S1 S2 RRR, tachycardic, no murmur, no JVD, no edema in Lower ext Pulmonary: lungs diminished bilaterally Abdominal: BS active in all 4 quadrants, no guarding, tenderness, rebounding MSK: strength 4/5 upper and lower extremities : no CVA tenderness no bladder distension Extremities: no edema in lower extremities, PT and DP pulses palpable +2 Psych: mood stable, judgement and insight fair Skin: Large ulceration left arm, forearm secondary to IV drug abuse, considered chronic in nature but with evidence of eschar/granulation with bounding radial and ulnar pulses as well as brachial pulses. Right forearm currently covered with dry clean dressing. Patient pale Results Labs 04/28/25 23:23 04/28/25 23:23 Labs: Laboratory Results - last 24 hr 04/28/25 04/28/25 04/28/25 18:18 18:19 20:50 MCV 60.5 L MCH 16.9 L MCHC 27.9 L RDW 18.6 H Plt Count 360 MPV 9.4 Immature Gran % (Auto) 0.6 H Neut % (Auto) 82.2 H Lymph % (Auto) 9.9 L [place] % (Auto) 6.5 Eos % (Auto) 0.6 Baso % (Auto) 0.2 Lymph # (Auto) 0.8 L [place] # (Auto) 0.5 Eos # (Auto) 0.1 Baso # (Auto) 0.0 Abs Immat Gran (auto) 0.05 H Absolute Neuts (auto) 6.9 Absolute Nucleated RBC 0.000 Nucleated RBC % (auto) 0.0 Anion Gap 11 L Estim Creat Clear Calc 189.5 Estimated GFR > 60 Random Glucose 94 Lactic Acid 0.7 Calcium 9.3 Total Bilirubin 0.2 AST 21 ALT 12 Alkaline Phosphatase 77 Total Creatine Kinase 36 L Troponin I High Sens < 2.7 Total Protein 7.4 Albumin 4.2 Stool Occult Blood NEGATIVE Salicylates < 5.0 L Ethyl Alcohol < 10 ECG Attestation: I personally reviewed and interpreted this ECG as follows: (ST no ischemic changes ) Imaging Radiologist's Impressions: CTA IMPRESSION: 1. No evidence of pulmonary embolism within the main or lobar pulmonary arteries. Motion and contrast bolus timing limits evaluation of the distal pulmonary arteries. 2. No acute intrathoracic findings. No evidence of pneumonia. 3. Similar appearance of splenomegaly and enlarged left axillary lymph nodes. Assessment and Plan (1) Arm ulcer: Qualifiers: Non-pressure ulcer stage: unspecified non-pressure ulcer stage Qualified Code(s): L98.499 - Non-pressure chronic ulcer of skin of other sites with unspecified severity Status: Acute (2) Cellulitis: Qualifiers: Laterality: unspecified laterality Site of cellulitis: extremity Site of cellulitis of extremity: upper extremity Qualified Code(s): L03.119 - Cellulitis of unspecified part of limb Status: Acute (3) Overdose: Qualifiers: Encounter type: initial encounter Injury intent: accidental or unintentional Qualified Code(s): T50.901A - Poisoning by unspecified drugs, medicaments and biological substances, accidental (unintentional), initial encounter Status: Acute Plan Pt is a 35 yo male with PMH ELMER (started 15 years ago) on methadone, use of IVD and continuing upper arm infections in B forearms (L hand dominant), Bacteremia, urinary retention, Tobacco dependence, MDD, chromic anemia BIBA after being receiving narcan for taking 9 baggies of heroin. Pt also noted to have cellulitis, ulcerations BUE in forearms. Request for admission to treat infections BUE's with IVDA. BUE cellulitis with ulcerations secondary to IVDA CT scan of B forearms ordered to rule out nectrotizing fascitis Pt now on Vanco and Ancef, hx of MRSA General surgery consulted ID consulted TTE to rule out endocarditis Lactic Acid and WBCs WNL BC pending UA pending (rule out additional source of infection) CTA neg for PE, PNA or acute disease including aspiration IVF continue Accidental Overdose on Heroin, required one narcan Apparently, time down is unknown, neuro exam WNL currently - attempted to call patient's mother but no answer COWS ordered, valium Prn Addictions consulted Pt is requesting help NO SI, HI, Hallucinations, Encephalopathy No evidence of aspiration Telemetry, continuous pulse ox ELMER on methadone Pt last took methadone 04/27 Pt received methadone via [facility] as na outpatient, kevyn will seek confirmation dose, can give 30 mg X1 if needed Bradycardia with prolonged Qtc (479) ECG notes normal GA, no block Pt states normally on clonidine, will not administer Continue telemetry MG 2.1 QTC 477 March of 2025, patient has remained on methadone TSH with reflex pending Acute Anemia with hx of Microcytic Anemia H/H 7.3/26.2, repeat H/H 7.3, 26 - no current indication for transfusion as hemodynamics are stable Type and screen ordered Iron panel and B12 pending Stool for occult neg in ED, Occ X3 ordered Protonix IV BID ordered Urinary Retention Bladder scan now >500, pt refusing straight catheterization after attempting to void X2 Pt educated on importance of emptying bladder UA and drug screen pending MDD Psychiatry consulted Pt is asking for help overall with situaiton to include depression, active IVDA, overdose, and methadone DVT Prophylaxis: Lovenox MED REC PENDING FULL CODE Quality Stroke Does the patient have a stroke diagnosis?: No Reason for No Anti-thrombotic by Day Two: N/A - Med Ordered VTE Prior VTE?: No VTE Risk Level:: Medical - moderate - high VTE Device Contraindication: N/A - Device Ordered VTE Drug Contraindication: N/A - Med Ordered
--- NOTE | 2025-04-28 21:59 | PHA.PROG ---
Admission Date/Time: April 28, 2025 21:42 Indication: SKIN INFECTION Weight in k.2 kg Adjusted body weight in Kg: [place] body weight in Kg: Obesity Dosing Indication % IBW: Serum Creatinine - Last 168 Hours 04/28/25 18:19 Creatinine 0.61 Estimated CrCl and GFR - Last 168 Hours 04/28/25 18:19 Estim Creat Clear Calc 189.5 Estimated GFR > 60 Vancomycin Loading Dose: 2000 Current Vancomycin Dosing Regimen: 1500 Q12H Vancomycin Monitoring using AUC goal of 400 - 600 range with trough as surrogate marker: 553 Date and Time for next Vancomycin Level to be drawn: 04/29/25 @1700 Pharmacist Comments on Vancomycin Plan: Vancomycin dosing will take advantage of [employer] as a clinical decision support tool that uses Bayesian modeling to calculate individual patient's pharmacokinetic parameters and forecast the patient's drug concentration time course with the target goal AUC 24 range of 400 - 600 mg/L/hr.
[2025-04-28] MEDS: Lactated Ringers 1,000 ML 100 ML IVCONT (22:12)
[2025-04-28 23:03] LABS: Iron 12 mcg/dL (45-160); Percent Iron Saturation 4 % (15-50); Total Iron Binding Capacity 308 mcg/dL (228-428); Unsaturated Iron Binding 296 ug/dL
[2025-04-28 23:31] LABS: Hematocrit 26.0 % (42.0-52.0); Hemoglobin 7.3 g/dl (14.0-18.0)
[2025-04-28 23:48] LABS: Anion Gap 10 (12-20); Blood Urea Nitrogen 15 mg/dL (9-16); Calcium 8.9 mg/dL (8.4-10.2); Carbon Dioxide 24 mmol/L (22-29); Chloride 110 mmol/L (96-108); Creatinine Clr Calc Pharmacy 214.1; Estimated Glomerular Filt Rate > 60; Magnesium 2.1 mg/dL (1.6-2.6); Potassium 3.9 mmol/L (3.3-5.1); Sodium 140 mmol/L (135-145)
[2025-04-29] VITALS (8 sets, daily range): BP systolic 103–143; BP diastolic 53–74; PULSE 55–93; RESP 16–18; TEMP 36.1–37.5; O2SAT 96–100; BMI 29.9
--- NOTE | 2025-04-29 01:25 | HO.NURTONUR ---
Bladder scan done, pt has over >500mL in bladder. RN tried to straight cath- unsucessful. Pt insiited on trying to urinate on his own, no success. RN tried to straight cath pt again with another RN and a coude- pt refused and stated he wanted to try again to urinate on his own.
--- NOTE | 2025-04-29 01:28 | HO.NURTONUR ---
RN checked on pt- still unable to urinate on his own- will attempt straight cath again with another RN and a coude.
--- NOTE | 2025-04-29 01:37 | HO.NURTONUR ---
RN tried to straight cath pt again with male RN by her side- pt refused. Pt was educated on the importance of this straight cath and getting the urine out of his bladder- pt stated I don't care, I'll take my chances. I'll go on my own. MD and new RN taking over pts care on floor made aware.
--- NOTE | 2025-04-29 04:39 | PC.ADMIT ---
Patient arrived to S4 from ED alert/oriented, looks unkempt and sweaty, no socks on feet, feet very dirty. IV in right foot with IV fluids infusing. Dressing on Left forearm falling off, no dressing on right forearm wound. Patient has >500ml in bladder and RN states unable to catheterize him on first attempt and patient would not allow a second attempt. Patient reports he cannot urinate d/t anxiety but doesnt have an issue at home. RN re-dressed left forearm dressing which is extensive and deep with yellowish slough. Outer edges pink and raised. RN added durafiber for wound base and wrapped in abd pad and gauze. Right forearm wound is on the underside of his arm close to elbow. This wound is dry and much smaller than left. Dura fiber applied to base, covered with telfa. RN attempted right bicep access twice without success. Patient will need US guided and currently nobody on the shift who is qualified.
[2025-04-29 05:35] LABS: Appearance Urine Clear; Glucose Urine UA Negative (Negative); PH 6.0 (5.0-9.0); Specific Gravity - Urine >= 1.030 (1.005-1.025); UMIC TRIGGER UACC YES
[2025-04-29 06:09] LABS: Cannabinoid Screen Urine Not Detected (Not Detect)
[2025-04-29 07:08] LABS: MANUAL DIFF FLAG NO
[2025-04-29 07:14] LABS: Hematocrit 26.5 % (42.0-52.0); Hemoglobin 7.3 g/dl (14.0-18.0); Imm Gran Abs Auto 0.02 X10*3/uL (0.00-0.03); Imm Gran Pct Auto 0.3 % (0.0-0.4); Lymphocytes Absolute Auto 1.5 X10*3/uL (1.2-4.9); Mean Corpuscular HGB Conc 27.5 g/dl (31.0-36.0); Mean Corpuscular Hemoglobin 16.9 pg (27.0-33.0); NRBC Abs Auto 0.000 X10*3/uL (0.0-0.012); NRBC Pct Auto 0.0 /100WBC (0.0-0.2); Platelet Count 325 X10*3/uL (160-400); Red Blood Count 4.33 X10*6/uL (4.60-5.80); White Blood Count 6.0 X10*3/uL (4.8-10.8)
[2025-04-29 07:17] LABS: Mean Corpuscular Volume 61.2 fL (80.0-98.0)
[2025-04-29 07:22] LABS: Hemoglobin A1C 75.7375 umol/L; Total Hemoglobin (HGBA1C) 1918.1631 umol/L
[2025-04-29 07:36] LABS: Alanine Aminotransferase 9 U/L (0-40); Albumin Level 3.3 g/dL (3.5-5.0); Alkaline Phosphatase 64 U/L (39-117); Anion Gap 10 (12-20); Aspartate Amino Transferase 20 U/L (5-37); Blood Urea Nitrogen 12 mg/dL (9-16); Calcium 8.7 mg/dL (8.4-10.2); Carbon Dioxide 24 mmol/L (22-29); Chloride 110 mmol/L (96-108); Creatinine Clr Calc Pharmacy 217.7; Estimated Glomerular Filt Rate > 60; Potassium 3.7 mmol/L (3.3-5.1); Sodium 140 mmol/L (135-145); Total Protein 6.3 g/dL (6.5-8.0)
[2025-04-29 07:52] LABS: HBS Num1 12.07 mIU/mL (0-7.99); HBc Num1 0.07 S/CO (0.00-0.79); HBsAGNum1 0.34 S/CO (0.00-0.99); HIV Num 1 0.05 S/CO (0.00-0.99); Hepatitis A Antibody IgM 0.25 Index (0-0.79); Hepatitis B Surface Antigen Negative (Negative); ~HepC Num1 0.11 S/CO (0.00-0.79); ~Hepatitis A Antibody IgM Nonreactive (Nonreactive); ~Hepatitis B Surface Antibody REACTIVE (Nonreactive); ~Hepatitis C Antibody Nonreactive (Nonreactive)
[2025-04-29 07:58] LABS: Vitamin B12 322 pg/mL (200-900)
[2025-04-29] MEDS: Lactated Ringers 1,000 ML 100 ML IVCONT (08:09)
--- NOTE | 2025-04-29 08:41 | PM.CNGS ---
History of Present Illness Consult details Consult date: 04/29/25 Reason for consult: wound care (forearm wound) Narrative: 35 year old male with a history of IDVU, MDD, chronic wounds of forearms admitted after overdose, seen in consult for bilateral forearm wounds. Patient is well known to the service, s/p multiple debridements in the OR and at bedside most recently in january. He reports the left is worse than the right, pain in both arms. He admits to injecting directly into this arm. He denies fevers or chills. Has some drainage from the right site, the left side is mostly thick scabbing and scarring PMFSH Past Medical History Medical History (Updated 04/29/25 @ 12:45 by Ravinder Melara PA-C) Prediabetes Bacteremia Arm ulcer MRSA bacteremia Suicidal ideation Depression Cocaine use with cocaine-induced disorder Opiate dependence, continuous Major depressive disorder, recurrent severe without psychotic features Depression Anxiety IVDU (intravenous drug user) Asthma Family History Family History Father Heart disease Surgical History Surgical History History of surgery on right wrist History of surgery (10/02/24) Social History Social History Household Members: Other Household Members Other:: mom Housing: House Housing Other:: lives with parents Are you a primary animal care service worker to a significant other at home: No Do you presently have visiting nurse or other home services: No Alcohol intake: unknown Comment: refused bed alarm Patient Tobacco Use Status: Current everyday Tobacco user Tobacco use type: Cigarette Cigarette Packs Per Day: 1 Cigarettes Per Day: 20.0 Years Smoked: 10 Smoked in Last 30 Days: Yes e-Cigarette/Vaping Use: Currently Using Patient Interested in Nicotine Replacement: Yes Patient Given Instructions on How to Stop Smoking: Yes Date Education Initiated: 04/29/25 Second Hand Smoke Exposure: No Use of substances other than those prescribed or required for medical reasons: Yes Substance Use Type: Heroin Substance Use Frequency: Daily Substance Use Frequency Other:: approx 6-7 bags/day Last Used Substance: Just Prior to Admission Currently Displaying Signs/Symptoms of Drug Intoxication Withdrawal: Yes Have you been hit, kicked, punched, or otherwise hurt by someone within the past year? If so, by whom?: No Do you feel safe in your current relationship?: Yes Is there a partner from a previous relationship who is making you feel unsafe now?: No Are you made to feel afraid or neglected: No Advance Directives: No Advance Directives Information Provided: Yes Advance Directives on File: No Advance Directives Date on File: 01/30/21 Do you have a plan to hurt others: No Plan Recently lost weight without trying: No Eating poorly because of decreased appetite: No Nutrition Risks: No Nutritional Risk Poor oral hygiene: No service: No Current occupational status: unemployed Sexual orientation: Straight/Heterosexual Meds Allergies Allergy/AdvReac Type Severity Reaction Status Date / Time Pertussis Vaccines Allergy Mild HIVES Verified 04/28/25 16:43 (PERTUSSIS VACCINES) haloperidol (From Haldol) Allergy Anaphylaxis Verified 04/28/25 16:43 Active Medications: Current Medications Acetaminophen (Acetaminophen 325 Mg Tablet) 650 mg PO Q6H PRN PRN Reason: Pain, Mild 1-3,fever,headache Albuterol/Ipratropium (Albuterol/Iprat 2.5/0.5mg 3 Ml Ampul.Neb) 3 ml INHALE RQ4H PRN PRN Reason: Shortness of Breath/Wheezing Calcium Carbonate (Calcium Carbonate 750 Mg Tab.Chew) 750 mg PO Q4H PRN PRN Reason: Heartburn Dextrose (Dextrose 50 % 25 Gm/50 Ml Syringe) 25 gm IVPUSH Q15M PRN; Protocol PRN Reason: per Hypoglycemia Standing Ord. Diazepam (Diazepam 10 Mg/2 Ml Cartridge) 10 mg IVPUSH Q6H PRN PRN Reason: Opiate Withdrawal Enoxaparin Sodium (Enoxaparin Sodium 40 Mg/0.4 Ml Syringe) 40 mg SUBCUT Q24H [facility] Last Admin: 04/28/25 22:12 Dose: 40 mg Glucose (Glucose Gel 15 Gm Gel..Gram.) 15 gm PO Q15M PRN; Protocol PRN Reason: per Hypoglycemia Standing Ord. Lactated Ringer's (Lr) 1,000 mls @ 125 mls/hr IVCONT .Q8H [facility] Last Admin: 04/29/25 08:09 Dose: 100 mls/hr Vancomycin HCl 1,500 mg/ (Sodium Chloride) 500 mls @ 333.333 mls/hr IV Q12H [facility] Insulin Human Lispro (Insulin Lispro 100 Unit/Ml 3 Ml Vial) 0 unit SUBCUT QIDACHS [facility]; Protocol Magnesium Hydroxide (Milk Of Magnesia 30 Ml Oral.Susp) 30 ml PO DAILY PRN PRN Reason: Constipation Melatonin (Melatonin 3 Mg Tablet) 6 mg PO BEDTIME PRN PRN Reason: Insomnia Ondansetron HCl (Ondansetron Hcl 4 Mg/2 Ml Vial) 4 mg IVPUSH Q8H PRN PRN Reason: Nausea and Vomiting Pantoprazole Sodium (Pantoprazole Sodium 40 Mg/10 Ml Vial) 40 mg IVPUSH BID@0630,1630 [facility] Last Admin: 04/29/25 06:20 Dose: Not Given Pharmacy Consult (Consult Rx Vancomycin Dosing) 1 each MISCELLANE DAILY PRN PRN Reason: Consult order Polyethylene Glycol (Polyethylene Glycol 3350 17 Gm Powd.Pack) 17 gm PO DAILY PRN PRN Reason: Constipation Sodium Chloride (0.9 % Sodium Chloride Flush 3 Ml Syringe) 3 ml IVFLUSH QSHIFT [facility] Last Admin: 04/29/25 08:10 Dose: Not Given Home Medications ?Medication ?Instructions ?Recorded ?Confirmed ?Last Taken ?Type methadone 10 mg/mL oral 170 mg PO DAILY 10/13/23 03/04/25 03/03/25 History concentrate (Methadone Intensol) clonazepam 1 mg tablet 1 mg PO TID 02/28/24 04/29/25 04/28/25 History clonidine HCl 0.1 mg tablet 0.1 mg PO TID 02/28/24 04/29/25 04/28/25 History gabapentin 300 mg capsule 300 mg PO BEDTIME 02/28/24 04/29/25 04/28/25 History gabapentin 600 mg tablet 600 mg PO TID 02/28/24 04/29/25 04/28/25 History mirtazapine 7.5 mg tablet 7.5 mg PO BEDTIME 02/28/24 04/29/25 04/28/25 History quetiapine 100 mg tablet 100 - 200 mg PO BEDTIME PRN 02/28/24 04/29/25 Unknown History Insomnia escitalopram oxalate 10 mg tablet 10 mg PO DAILY 02/01/25 04/29/25 04/28/25 History doxepin 10 mg capsule 10 - 20 mg PO BEDTIME PRN 04/29/25 04/29/25 Unknown History Anxiety/Sleep omeprazole 20 mg capsule,delayed 20 mg PO DAILY@0630 04/29/25 04/29/25 04/28/25 History release Physical Exam Vital Signs: Vital Signs: Last Vital Signs Temp 97.4 F 04/29/25 02:43 Pulse 56 04/29/25 02:43 Resp 18 04/29/25 02:43 BP 120/71 04/29/25 02:43 Pulse Ox 99 04/29/25 02:43 O2 Del Method Room Air 04/29/25 02:43 BMI result Body Mass Index 29.9 Const: General: no acute distress and lethargic Orientation/consciousness: patient oriented x3 and lethargic Neuro: General: patient oriented x3 Extrem: Other: bilateral forearm wounds, see ED note for pictures Results Labs 04/29/25 06:59 04/29/25 06:59 Labs: Abnormal lab results 04/28/25 04/28/25 04/28/25 Range/Units 18:18 18:19 23:23 RBC 4.33 L (4.60-5.80) X10*6/uL Hgb 7.3 L 7.3 L (14.0-18.0) g/dl Hct 26.2 L 26.0 L (42.0-52.0) % MCV 60.5 L (80.0-98.0) fL MCH 16.9 L (27.0-33.0) pg MCHC 27.9 L (31.0-36.0) g/dl RDW 18.6 H (11.0-16.0) % Immature Gran % (Auto) 0.6 H (0.0-0.4) % Neut % (Auto) 82.2 H (45-73) % Lymph % (Auto) 9.9 L (20-40) % [place] % (Auto) (2-11) % Lymph # (Auto) 0.8 L (1.2-4.9) X10*3/uL Abs Immat Gran (auto) 0.05 H (0.00-0.03) X10*3/uL ESR 21 H (0-15) MM/HR Chloride 110 H (96-108) mmol/L Anion Gap 11 L 10 L (12-20) BUN 20 H (9-16) mg/dL Iron 12 L (45-160) mcg/dL % Saturation 4 L (15-50) % Total Creatine Kinase 36 L (38-174) U/L C-Reactive Protein 3.12 H (< or = 0.50) mg/dL Total Protein (6.5-8.0) g/dL Albumin (3.5-5.0) g/dL Ur Specific [place] (1.005-1.025) Urine Blood (Negative) Urine RBC (0-2) /HPF Random Vancomycin (15-20) mcg/mL Salicylates < 5.0 L (15-30) mg/dL Urine Opiates Screen (Not Detect) Urine Methadone Screen (Not Detect) ng/mL Urine Fentanyl Screen (Not Detect) Urine Cocaine Screen (Not Detect) 04/29/25 04/29/25 Range/Units 05:15 06:59 RBC 4.33 L (4.60-5.80) X10*6/uL Hgb 7.3 L (14.0-18.0) g/dl Hct 26.5 L (42.0-52.0) % MCV 61.2 L (80.0-98.0) fL MCH 16.9 L (27.0-33.0) pg MCHC 27.5 L (31.0-36.0) g/dl RDW 18.6 H (11.0-16.0) % Immature Gran % (Auto) (0.0-0.4) % Neut % (Auto) (45-73) % Lymph % (Auto) (20-40) % [place] % (Auto) 11.5 H (2-11) % Lymph # (Auto) (1.2-4.9) X10*3/uL Abs Immat Gran (auto) (0.00-0.03) X10*3/uL ESR (0-15) MM/HR Chloride 110 H (96-108) mmol/L Anion Gap 10 L (12-20) BUN (9-16) mg/dL Iron (45-160) mcg/dL % Saturation (15-50) % Total Creatine Kinase (38-174) U/L C-Reactive Protein (< or = 0.50) mg/dL Total Protein 6.3 L (6.5-8.0) g/dL Albumin 3.3 L (3.5-5.0) g/dL Ur Specific [place] >= 1.030 H (1.005-1.025) Urine Blood Small (1+) H (Negative) Urine RBC 11-20 H (0-2) /HPF Random Vancomycin 7.9 L (15-20) mcg/mL Salicylates (15-30) mg/dL Urine Opiates Screen POSITIVE H (Not Detect) Urine Methadone Screen Positive H (Not Detect) ng/mL Urine Fentanyl Screen POSITIVE H (Not Detect) Urine Cocaine Screen POSITIVE H (Not Detect) Short CBC 04/28/25 04/28/25 04/29/25 Range/Units 18:19 23:23 06:59 WBC 8.4 6.0 (4.8-10.8) X10*3/uL Hgb 7.3 L 7.3 L 7.3 L (14.0-18.0) g/dl Hct 26.2 L 26.0 L 26.5 L (42.0-52.0) % Plt Count 360 325 (160-400) X10*3/uL BMP 04/28/25 04/28/25 04/29/25 18:19 23:23 06:59 Sodium 141 140 140 Potassium 4.0 3.9 3.7 Chloride 108 110 H 110 H Carbon Dioxide 26 24 24 BUN 20 H 15 12 Creatinine 0.61 0.54 0.53 Calcium 9.3 8.9 8.7 Cardiac Enzymes 04/28/25 Range/Units 18:19 Total Creatine Kinase 36 L (38-174) U/L Liver Function 04/28/25 04/29/25 Range/Units 18:19 06:59 Total Bilirubin 0.2 0.3 (0.0-1.0) mg/dL AST 21 20 (5-37) U/L ALT 12 9 (0-40) U/L Alkaline Phosphatase 77 64 (39-117) U/L Albumin 4.2 3.3 L (3.5-5.0) g/dL Urine 04/29/25 Range/Units 05:15 Urine Color Yellow Urine Appearance Clear Urine pH 6.0 (5.0-9.0) Ur Specific [place] >= 1.030 H (1.005-1.025) Urine Protein Trace (Neg-Trace) mg/dL Urine Glucose (UA) Negative (Negative) mg/dL All other labs normal. Assessment and Plan (1) Chronic wound: Status: Acute (2) Cellulitis: Qualifiers: Laterality: unspecified laterality Site of cellulitis: extremity Site of cellulitis of extremity: upper extremity Qualified Code(s): L03.119 - Cellulitis of unspecified part of limb Status: Acute (3) Arm ulcer: Qualifiers: Non-pressure ulcer stage: unspecified non-pressure ulcer stage Qualified Code(s): L98.499 - Non-pressure chronic ulcer of skin of other sites with unspecified severity Status: Acute Plan 35 year old male admitted after overdose, seen in consult for bilateral forearm wounds. he has pain in both upper extremities, worse in the left, this is the more significant wound. I saw this patient alongside dejan and jessica from wound care. At this point i do not thing the wounds need debridement in the OR, there is some thick scabbing and necrosis that was debrided with the previous dressing and the wound bed looks viable. We will attempt to soften some of this scabbing with xeroform and continue to debride at bedside throughout this admission. Dressings per wound care recommendations continue IV ABX daily dressing changes while inpatient Procedures Date of Service Date of Service: 04/29/25
--- NOTE | 2025-04-29 08:42 | PHA.MEDREC ---
Addendum entered by Donna Herndon RPh 04/29/25 09:16: REVIEWED BY PHARMACIST Addendum entered by Daysi Miranda 04/29/25 08:45: Patient not taking Iron tablet anymore; didn't like how it made him feel. Original Note: Pharmacy Consult ? Medication Reconciliation Pharmacy has completed the medication reconciliation. Spoke with pt and he confirmed his medications. Pt confirmed he takes the Gabapentin 600mg caps TID and 300mg at bedtime with a 600mg cap for a total night dose of 900mg. Pt confirmed his Methadone, taking 170mg daily and states he gets [facility] and states he took it yesterday.
[2025-04-29 09:25] LABS: Glucose, Whole Blood 82 mg/dL (60-115)
--- NOTE | 2025-04-29 09:54 | HO.PM.IMPN ---
Subjective Subjective Date of Service: 04/29/25 Interval History: feeling ill Physical Exam Exam: Exam: lethargic, non participatory chronic lesions on arms with some surrounding erythema abd soft non tender Vital Signs: Vital Signs: Last Vital Signs Temp 99.0 F 04/29/25 08:00 Pulse 62 04/29/25 08:00 Resp 18 04/29/25 08:00 BP 128/53 L 04/29/25 08:00 Pulse Ox 100 04/29/25 08:00 O2 Del Method Room Air 04/29/25 08:00 BMI result Body Mass Index 29.9 Objective Data Active Medications Acetaminophen (Acetaminophen 325 Mg Tablet) 650 mg PO Q6H PRN PRN Reason: Pain, Mild 1-3,fever,headache Albuterol/Ipratropium (Albuterol/Iprat 2.5/0.5mg 3 Ml Ampul.Neb) 3 ml INHALE RQ4H PRN PRN Reason: Shortness of Breath/Wheezing Calcium Carbonate (Calcium Carbonate 750 Mg Tab.Chew) 750 mg PO Q4H PRN PRN Reason: Heartburn Dextrose (Dextrose 50 % 25 Gm/50 Ml Syringe) 25 gm IVPUSH Q15M PRN; Protocol PRN Reason: per Hypoglycemia Standing Ord. Diazepam (Diazepam 10 Mg/2 Ml Cartridge) 10 mg IVPUSH Q6H PRN PRN Reason: Opiate Withdrawal Enoxaparin Sodium (Enoxaparin Sodium 40 Mg/0.4 Ml Syringe) 40 mg SUBCUT Q24H [facility] Last Admin: 04/28/25 22:12 Dose: 40 mg Documented By: DAVID Glucose (Glucose Gel 15 Gm Gel..Gram.) 15 gm PO Q15M PRN; Protocol PRN Reason: per Hypoglycemia Standing Ord. Lactated Ringer's (Lr) 1,000 mls @ 125 mls/hr IVCONT .Q8H [facility] Last Admin: 04/29/25 08:09 Dose: 100 mls/hr Documented By: YESENIA Vancomycin HCl 1,500 mg/ (Sodium Chloride) 500 mls @ 333.333 mls/hr IV Q12H [facility] Insulin Human Lispro (Insulin Lispro 100 Unit/Ml 3 Ml Vial) 0 unit SUBCUT QIDACHS [facility]; Protocol Last Admin: 04/29/25 09:40 Dose: Not Given Documented By: YESENIA Non-Admin Reason: No Insulin Coverage Magnesium Hydroxide (Milk Of Magnesia 30 Ml Oral.Susp) 30 ml PO DAILY PRN PRN Reason: Constipation Melatonin (Melatonin 3 Mg Tablet) 6 mg PO BEDTIME PRN PRN Reason: Insomnia Mirtazapine (Mirtazapine 7.5 Mg Tablet) 7.5 mg PO BEDTIME [facility] Ondansetron HCl (Ondansetron Hcl 4 Mg/2 Ml Vial) 4 mg IVPUSH Q8H PRN PRN Reason: Nausea and Vomiting Pantoprazole Sodium (Pantoprazole Sodium 40 Mg/10 Ml Vial) 40 mg IVPUSH BID@0630,1630 [facility] Last Admin: 04/29/25 06:20 Dose: Not Given Documented By: TRISTAN Non-Admin Reason: poor iv access Pharmacy Consult (Consult Rx Vancomycin Dosing) 1 each MISCELLANE DAILY PRN PRN Reason: Consult order Polyethylene Glycol (Polyethylene Glycol 3350 17 Gm Powd.Pack) 17 gm PO DAILY PRN PRN Reason: Constipation Sodium Chloride (0.9 % Sodium Chloride Flush 3 Ml Syringe) 3 ml IVFLUSH QSHIFT [facility] Last Admin: 04/29/25 08:10 Dose: Not Given Documented By: YESENIA Non-Admin Reason: IV Running Labs 04/29/25 06:59 04/29/25 06:59 Labs: Laboratory Results - last 24 hr 04/28/25 04/28/25 04/28/25 18:18 18:19 20:50 MCV 60.5 L MCH 16.9 L MCHC 27.9 L RDW 18.6 H Plt Count 360 MPV 9.4 Immature Gran % (Auto) 0.6 H Neut % (Auto) 82.2 H Lymph % (Auto) 9.9 L [place] % (Auto) 6.5 Eos % (Auto) 0.6 Baso % (Auto) 0.2 Lymph # (Auto) 0.8 L [place] # (Auto) 0.5 Eos # (Auto) 0.1 Baso # (Auto) 0.0 Abs Immat Gran (auto) 0.05 H Absolute Neuts (auto) 6.9 Absolute Nucleated RBC 0.000 Nucleated RBC % (auto) 0.0 Smear Path Review Cancelled ESR Anion Gap 11 L Estim Creat Clear Calc 189.5 Estimated GFR > 60 POC Glucose Random Glucose 94 Estimat Average Glucose Hemoglobin A1c % Lactic Acid 0.7 Calcium 9.3 Magnesium Iron 12 L TIBC 308 % Saturation 4 L Unsat Iron Binding 296 Total Bilirubin 0.2 AST 21 ALT 12 Alkaline Phosphatase 77 Total Creatine Kinase 36 L Troponin I High Sens < 2.7 C-Reactive Protein Total Protein 7.4 Albumin 4.2 Vitamin B12 TSH Urine Color Urine Appearance Urine pH Ur Specific [place] Urine Protein Urine Glucose (UA) Urine Ketones Urine Blood Urine Nitrite Ur Leukocyte Esterase Urine RBC Urine WBC Ur Squamous Epith Cells Urine Bacteria Hyaline Casts Stool Occult Blood NEGATIVE Random Vancomycin Salicylates < 5.0 L Urine Opiates Screen Ur Buprenorphine Scrn Ur Oxycodone Screen Urine Methadone Screen Urine Fentanyl Screen Ur Barbiturates Screen Ur Phencyclidine Scrn Ur Amphetamines Screen U Benzodiazepines Scrn Urine Cocaine Screen U Marijuana (THC) Screen Ethyl Alcohol < 10 Hepatitis A IgM Ab Hep Bs Antigen Hep Bs Antibody Hep B Core Total Ab Hepatitis C Ab (EIA) HIV 1&2 Ab/P24 Ag 4thGn Blood Type Antibody Screen 04/28/25 04/29/25 04/29/25 23:23 05:15 06:59 MCV 61.2 L MCH 16.9 L MCHC 27.5 L RDW 18.6 H Plt Count 325 MPV 9.8 Immature Gran % (Auto) 0.3 Neut % (Auto) 62.1 Lymph % (Auto) 24.4 [place] % (Auto) 11.5 H Eos % (Auto) 1.5 Baso % (Auto) 0.2 Lymph # (Auto) 1.5 [place] # (Auto) 0.7 Eos # (Auto) 0.1 Baso # (Auto) 0.0 Abs Immat Gran (auto) 0.02 Absolute Neuts (auto) 3.7 Absolute Nucleated RBC 0.000 Nucleated RBC % (auto) 0.0 Smear Path Review ESR 21 H Anion Gap 10 L 10 L Estim Creat Clear Calc 214.1 217.7 Estimated GFR > 60 > 60 POC Glucose Random Glucose 103 93 Estimat Average Glucose 120 Hemoglobin A1c % 5.8 Lactic Acid 0.7 Calcium 8.9 8.7 Magnesium 2.1 Iron TIBC % Saturation Unsat Iron Binding Total Bilirubin 0.3 AST 20 ALT 9 Alkaline Phosphatase 64 Total Creatine Kinase Troponin I High Sens C-Reactive Protein 3.12 H Total Protein 6.3 L Albumin 3.3 L Vitamin B12 322 TSH 0.68 Urine Color Yellow Urine Appearance Clear Urine pH 6.0 Ur Specific [place] >= 1.030 H Urine Protein Trace Urine Glucose (UA) Negative Urine Ketones Negative Urine Blood Small (1+) H Urine Nitrite Negative Ur Leukocyte Esterase Negative Urine RBC 11-20 H Urine WBC 0-5 Ur Squamous Epith Cells 0-2 Urine Bacteria None Seen Hyaline Casts 0-2 Stool Occult Blood Random Vancomycin 7.9 L Salicylates Urine Opiates Screen POSITIVE H Ur Buprenorphine Scrn Not Detected Ur Oxycodone Screen Not Detected Urine Methadone Screen Positive H Urine Fentanyl Screen POSITIVE H Ur Barbiturates Screen Not Detected Ur Phencyclidine Scrn Not Detected Ur Amphetamines Screen Not Detected U Benzodiazepines Scrn Not Detected Urine Cocaine Screen POSITIVE H U Marijuana (THC) Screen Not Detected Ethyl Alcohol Hepatitis A IgM Ab Nonreactive Hep Bs Antigen Negative Hep Bs Antibody REACTIVE Hep B Core Total Ab Nonreactive Hepatitis C Ab (EIA) Nonreactive HIV 1&2 Ab/P24 Ag 4thGn Nonreactive Blood Type O Positive Antibody Screen NEGATIVE 04/29/25 09:19 MCV MCH MCHC RDW Plt Count MPV Immature Gran % (Auto) Neut % (Auto) Lymph % (Auto) [place] % (Auto) Eos % (Auto) Baso % (Auto) Lymph # (Auto) [place] # (Auto) Eos # (Auto) Baso # (Auto) Abs Immat Gran (auto) Absolute Neuts (auto) Absolute Nucleated RBC Nucleated RBC % (auto) Smear Path Review ESR Anion Gap Estim Creat Clear Calc Estimated GFR POC Glucose 82 Random Glucose Estimat Average Glucose Hemoglobin A1c % Lactic Acid Calcium Magnesium Iron TIBC % Saturation Unsat Iron Binding Total Bilirubin AST ALT Alkaline Phosphatase Total Creatine Kinase Troponin I High Sens C-Reactive Protein Total Protein Albumin Vitamin B12 TSH Urine Color Urine Appearance Urine pH Ur Specific [place] Urine Protein Urine Glucose (UA) Urine Ketones Urine Blood Urine Nitrite Ur Leukocyte Esterase Urine RBC Urine WBC Ur Squamous Epith Cells Urine Bacteria Hyaline Casts Stool Occult Blood Random Vancomycin Salicylates Urine Opiates Screen Ur Buprenorphine Scrn Ur Oxycodone Screen Urine Methadone Screen Urine Fentanyl Screen Ur Barbiturates Screen Ur Phencyclidine Scrn Ur Amphetamines Screen U Benzodiazepines Scrn Urine Cocaine Screen U Marijuana (THC) Screen Ethyl Alcohol Hepatitis A IgM Ab Hep Bs Antigen Hep Bs Antibody Hep B Core Total Ab Hepatitis C Ab (EIA) HIV 1&2 Ab/P24 Ag 4thGn Blood Type Antibody Screen Assessment and Plan (1) Mood disorder: Status: Acute Plan 35M PMH IVDA, mood disorder, chornic bilateral arm wounds, presented AMS Acute toxic metabolic encephalopathy due to unintentional opiate overdose Slowly improving, addiction eval Chronic bilateral arm wounds with superimposed acute cellulitis DC Ancef, continue IV vanco, follow up cultures, surgical eval Chronic inflammatory and iron-deficiency anemia Stable Urinary retention Due to encephalopathy, monitor Mood disorder Psych eval DVT prophylaxis with Lovenox Full code reason for continued hospitalization: Awaiting cultures, ongoing encephalopathy Quality Stroke Does the patient have a stroke diagnosis?: No Reason for No Anti-thrombotic by Day Two: N/A - Med Ordered VTE Prior VTE?: No VTE Risk Level:: Medical - moderate - high VTE Device Contraindication: N/A - Device Ordered VTE Drug Contraindication: N/A - Med Ordered
[2025-04-29 11:21] LABS: Glucose, Whole Blood 96 mg/dL (60-115)
[2025-04-29] MEDS: methADONE HCl 20 MG/2 ML ORAL.CONC 75 MG PO (12:44)
--- NOTE | 2025-04-29 15:18 | HO.ADDICT_ITS ---
History of Present Illness Date of Service: 04/29/2025 Chief Complaint: B cellulitis , Drug Overdose Reason for Consult: OUD Sources of Information: patient interviewed (minimal participation d/t drowsiness) and chart reviewed HPI Narrative: Patient is a 35 year old male with OUD, who presented to [facility] ED following reported overdose at home requiring narcan administration In ED, chronic arm showing concern for acute cellulitis, and patient medically admitted. Patient well known to t/w and ACS via previous admissions. Most recent approx a month ago following overdose. Seen in room 486. He is drowsy, but wakes easily to voice. He appears to be resting comfortably. When asked how he was feeling he replied fine . When asked if he was hungry, he replied no . And then quickly back to sleep. Prior to being seen by t/w, he was administered methadone 75mg as RN reported acute withdrawal sx. While patient reported last dose of methadone was yesterday and was 170mg, this has not been verified, which is why reduced dose was administered. Past Psychiatric History: hosps: 6-7 SA: reports 1, 5+ yrs ago, via intentional overdose on heroin SIB: denies HIB: denies Flo Strickland- psychiatric provider ([facility] in [place]) no therapist. Medical Evaluation Reviewed: Yes Review of Systems Review of Systems Yes Unobtainable due to mental status (limited due to drowsiness) Diagnostics Vital Signs (24Hr): Vital Signs - 24 hr 04/28/25 16:38 04/28/25 16:53 04/28/25 19:54 Temperature 99.2 F Pulse Rate 88 88 79 Respiratory Rate 18 18 Blood Pressure 140/79 H 103/67 Pulse Oximetry 97 98 97 Oxygen Delivery Method Room Air Room Air Room Air 04/29/25 01:08 04/29/25 02:43 04/29/25 08:00 Temperature 97.4 F 99.0 F Pulse Rate 79 56 62 Respiratory Rate 18 18 18 Blood Pressure 103/67 120/71 128/53 L Pulse Oximetry 97 99 100 Oxygen Delivery Method Room Air Room Air Room Air 04/29/25 12:00 Temperature 97.2 F Pulse Rate 60 Respiratory Rate 16 Blood Pressure 143/74 H Pulse Oximetry 100 Oxygen Delivery Method Room Air BMI result Body Mass Index 29.9 Labs 04/29/25 06:59 04/29/25 06:59 Labs: Laboratory Results - last 48 hr 04/28/25 04/28/25 04/28/25 18:18 18:19 20:50 WBC 8.4 RBC 4.33 L Hgb 7.3 L Hct 26.2 L MCV 60.5 L MCH 16.9 L MCHC 27.9 L RDW 18.6 H Plt Count 360 MPV 9.4 Immature Gran % (Auto) 0.6 H Neut % (Auto) 82.2 H Lymph % (Auto) 9.9 L Edgar % (Auto) 6.5 Eos % (Auto) 0.6 Baso % (Auto) 0.2 Lymph # (Auto) 0.8 L Edgar # (Auto) 0.5 Eos # (Auto) 0.1 Baso # (Auto) 0.0 Abs Immat Gran (auto) 0.05 H Absolute Neuts (auto) 6.9 Absolute Nucleated RBC 0.000 Nucleated RBC % (auto) 0.0 Smear Path Review Cancelled ESR Sodium 141 Potassium 4.0 Chloride 108 Carbon Dioxide 26 Anion Gap 11 L BUN 20 H Creatinine 0.61 Estim Creat Clear Calc 189.5 Estimated GFR > 60 POC Glucose Random Glucose 94 Estimat Average Glucose Hemoglobin A1c % Lactic Acid 0.7 Calcium 9.3 Magnesium Iron 12 L TIBC 308 % Saturation 4 L Unsat Iron Binding 296 Total Bilirubin 0.2 AST 21 ALT 12 Alkaline Phosphatase 77 Total Creatine Kinase 36 L Troponin I High Sens < 2.7 C-Reactive Protein Total Protein 7.4 Albumin 4.2 Vitamin B12 TSH Urine Color Urine Appearance Urine pH Ur Specific Lynn Urine Protein Urine Glucose (UA) Urine Ketones Urine Blood Urine Nitrite Ur Leukocyte Esterase Urine RBC Urine WBC Ur Squamous Epith Cells Urine Bacteria Hyaline Casts Stool Occult Blood NEGATIVE Random Vancomycin Salicylates < 5.0 L Urine Opiates Screen Ur Buprenorphine Scrn Ur Oxycodone Screen Urine Methadone Screen Urine Fentanyl Screen Ur Barbiturates Screen Ur Phencyclidine Scrn Ur Amphetamines Screen U Benzodiazepines Scrn Urine Cocaine Screen U Marijuana (THC) Screen Ethyl Alcohol < 10 Hepatitis A IgM Ab Hep Bs Antigen Hep Bs Antibody Hep B Core Total Ab Hepatitis C Ab (EIA) HIV 1&2 Ab/P24 Ag 4thGn Blood Type Antibody Screen 04/28/25 04/29/25 04/29/25 23:23 05:15 06:59 WBC 6.0 RBC 4.33 L Hgb 7.3 L 7.3 L Hct 26.0 L 26.5 L MCV 61.2 L MCH 16.9 L MCHC 27.5 L RDW 18.6 H Plt Count 325 MPV 9.8 Immature Gran % (Auto) 0.3 Neut % (Auto) 62.1 Lymph % (Auto) 24.4 Edgar % (Auto) 11.5 H Eos % (Auto) 1.5 Baso % (Auto) 0.2 Lymph # (Auto) 1.5 Edgar # (Auto) 0.7 Eos # (Auto) 0.1 Baso # (Auto) 0.0 Abs Immat Gran (auto) 0.02 Absolute Neuts (auto) 3.7 Absolute Nucleated RBC 0.000 Nucleated RBC % (auto) 0.0 Smear Path Review ESR 21 H Sodium 140 140 Potassium 3.9 3.7 Chloride 110 H 110 H Carbon Dioxide 24 24 Anion Gap 10 L 10 L BUN 15 12 Creatinine 0.54 0.53 Estim Creat Clear Calc 214.1 217.7 Estimated GFR > 60 > 60 POC Glucose Random Glucose 103 93 Estimat Average Glucose 120 Hemoglobin A1c % 5.8 Lactic Acid 0.7 Calcium 8.9 8.7 Magnesium 2.1 Iron TIBC % Saturation Unsat Iron Binding Total Bilirubin 0.3 AST 20 ALT 9 Alkaline Phosphatase 64 Total Creatine Kinase Troponin I High Sens C-Reactive Protein 3.12 H Total Protein 6.3 L Albumin 3.3 L Vitamin B12 322 TSH 0.68 Urine Color Yellow Urine Appearance Clear Urine pH 6.0 Ur Specific Lynn >= 1.030 H Urine Protein Trace Urine Glucose (UA) Negative Urine Ketones Negative Urine Blood Small (1+) H Urine Nitrite Negative Ur Leukocyte Esterase Negative Urine RBC 11-20 H Urine WBC 0-5 Ur Squamous Epith Cells 0-2 Urine Bacteria None Seen Hyaline Casts 0-2 Stool Occult Blood Random Vancomycin 7.9 L Salicylates Urine Opiates Screen POSITIVE H Ur Buprenorphine Scrn Not Detected Ur Oxycodone Screen Not Detected Urine Methadone Screen Positive H Urine Fentanyl Screen POSITIVE H Ur Barbiturates Screen Not Detected Ur Phencyclidine Scrn Not Detected Ur Amphetamines Screen Not Detected U Benzodiazepines Scrn Not Detected Urine Cocaine Screen POSITIVE H U Marijuana (THC) Screen Not Detected Ethyl Alcohol Hepatitis A IgM Ab Nonreactive Hep Bs Antigen Negative Hep Bs Antibody REACTIVE Hep B Core Total Ab Nonreactive Hepatitis C Ab (EIA) Nonreactive HIV 1&2 Ab/P24 Ag 4thGn Nonreactive Blood Type O Positive Antibody Screen NEGATIVE 04/29/25 04/29/25 09:19 11:14 WBC RBC Hgb Hct MCV MCH MCHC RDW Plt Count MPV Immature Gran % (Auto) Neut % (Auto) Lymph % (Auto) Edgar % (Auto) Eos % (Auto) Baso % (Auto) Lymph # (Auto) Edgar # (Auto) Eos # (Auto) Baso # (Auto) Abs Immat Gran (auto) Absolute Neuts (auto) Absolute Nucleated RBC Nucleated RBC % (auto) Smear Path Review ESR Sodium Potassium Chloride Carbon Dioxide Anion Gap BUN Creatinine Estim Creat Clear Calc Estimated GFR POC Glucose 82 96 Random Glucose Estimat Average Glucose Hemoglobin A1c % Lactic Acid Calcium Magnesium Iron TIBC % Saturation Unsat Iron Binding Total Bilirubin AST ALT Alkaline Phosphatase Total Creatine Kinase Troponin I High Sens C-Reactive Protein Total Protein Albumin Vitamin B12 TSH Urine Color Urine Appearance Urine pH Ur Specific Lynn Urine Protein Urine Glucose (UA) Urine Ketones Urine Blood Urine Nitrite Ur Leukocyte Esterase Urine RBC Urine WBC Ur Squamous Epith Cells Urine Bacteria Hyaline Casts Stool Occult Blood Random Vancomycin Salicylates Urine Opiates Screen Ur Buprenorphine Scrn Ur Oxycodone Screen Urine Methadone Screen Urine Fentanyl Screen Ur Barbiturates Screen Ur Phencyclidine Scrn Ur Amphetamines Screen U Benzodiazepines Scrn Urine Cocaine Screen U Marijuana (THC) Screen Ethyl Alcohol Hepatitis A IgM Ab Hep Bs Antigen Hep Bs Antibody Hep B Core Total Ab Hepatitis C Ab (EIA) HIV 1&2 Ab/P24 Ag 4thGn Blood Type Antibody Screen Mental Status Exam Mental Status Exam Patient Appearance: Unkempt Level of Consciousness: Drowsy Medications Medications Current Medications Acetaminophen (Acetaminophen 325 Mg Tablet) 650 mg PO Q6H PRN PRN Reason: Pain, Mild 1-3,fever,headache Albuterol/Ipratropium (Albuterol/Iprat 2.5/0.5mg 3 Ml Ampul.Neb) 3 ml INHALE RQ4H PRN PRN Reason: Shortness of Breath/Wheezing Calcium Carbonate (Calcium Carbonate 750 Mg Tab.Chew) 750 mg PO Q4H PRN PRN Reason: Heartburn Dextrose (Dextrose 50 % 25 Gm/50 Ml Syringe) 25 gm IVPUSH Q15M PRN; Protocol PRN Reason: per Hypoglycemia Standing Ord. Diazepam (Diazepam 10 Mg/2 Ml Cartridge) 10 mg IVPUSH Q6H PRN PRN Reason: Opiate Withdrawal Enoxaparin Sodium (Enoxaparin Sodium 40 Mg/0.4 Ml Syringe) 40 mg SUBCUT Q24H [facility] Last Admin: 04/28/25 22:12 Dose: 40 mg Glucose (Glucose Gel 15 Gm Gel..Gram.) 15 gm PO Q15M PRN; Protocol PRN Reason: per Hypoglycemia Standing Ord. Vancomycin HCl 1,500 mg/ (Sodium Chloride) 500 mls @ 333.333 mls/hr IV Q12H [facility] Last Infusion: 04/29/25 14:12 Dose: Infused Insulin Human Lispro (Insulin Lispro 100 Unit/Ml 3 Ml Vial) 0 unit SUBCUT QIDACHS [facility]; Protocol Last Admin: 04/29/25 12:27 Dose: Not Given Magnesium Hydroxide (Milk Of Magnesia 30 Ml Oral.Susp) 30 ml PO DAILY PRN PRN Reason: Constipation Melatonin (Melatonin 3 Mg Tablet) 6 mg PO BEDTIME PRN PRN Reason: Insomnia Mirtazapine (Mirtazapine 7.5 Mg Tablet) 7.5 mg PO BEDTIME SUKHDEEP Ondansetron HCl (Ondansetron Hcl 4 Mg/2 Ml Vial) 4 mg IVPUSH Q8H PRN PRN Reason: Nausea and Vomiting Pantoprazole Sodium (Pantoprazole Sodium 40 Mg/10 Ml Vial) 40 mg IVPUSH BID@0630,1630 [facility] Last Admin: 04/29/25 06:20 Dose: Not Given Pharmacy Consult (Consult Rx Vancomycin Dosing) 1 each MISCELLANE DAILY PRN PRN Reason: Consult order Polyethylene Glycol (Polyethylene Glycol 3350 17 Gm Powd.Pack) 17 gm PO DAILY PRN PRN Reason: Constipation Sodium Chloride (0.9 % Sodium Chloride Flush 3 Ml Syringe) 3 ml IVFLUSH QSHIFT [facility] Last Admin: 04/29/25 08:10 Dose: Not Given Allergies Allergies Allergy/AdvReac Type Severity Reaction Status Date / Time Pertussis Vaccines Allergy Mild HIVES Verified 04/28/25 16:43 (PERTUSSIS VACCINES) haloperidol (From Haldol) Allergy Anaphylaxis Verified 04/28/25 16:43 Assessment & Plan Assessment & Plan (1) Opioid use disorder: Status: Acute Code(s): F11.90 - Opioid use, unspecified, uncomplicated Assessment and Plan: * methadone 75mg X1. Remainder of methadone can be ordered once verified and patient is not as sedated * pending ID consult * rod welder to follow up and discuss/reinforce overdose prevention strategies Total time managing care of this patient today _30___ minutes. [facility] Past Medical History Medical History (Updated 04/29/25 @ 12:45 by Ravinder Melara PA-C) Prediabetes Bacteremia Arm ulcer MRSA bacteremia Suicidal ideation Depression Cocaine use with cocaine-induced disorder Opiate dependence, continuous Major depressive disorder, recurrent severe without psychotic features Depression Anxiety IVDU (intravenous drug user) Asthma Family History Family History Father Heart disease Surgical History Surgical History History of surgery on right wrist History of surgery (10/02/24) Social History Social History Household Members: Other Household Members Other:: mom Housing: House Housing Other:: lives with parents Are you a primary healthcare project manager to a significant other at home: No Do you presently have visiting nurse or other home services: No Alcohol intake: unknown Comment: refused bed alarm Patient Tobacco Use Status: Current everyday Tobacco user Tobacco use type: Cigarette Cigarette Packs Per Day: 1 Cigarettes Per Day: 20.0 Years Smoked: 10 Smoked in Last 30 Days: Yes e-Cigarette/Vaping Use: Currently Using Patient Interested in Nicotine Replacement: Yes Patient Given Instructions on How to Stop Smoking: Yes Date Education Initiated: 04/29/25 Second Hand Smoke Exposure: No Use of substances other than those prescribed or required for medical reasons: Yes Substance Use Type: Heroin Substance Use Frequency: Daily Substance Use Frequency Other:: approx 6-7 bags/day Last Used Substance: Just Prior to Admission Currently Displaying Signs/Symptoms of Drug Intoxication Withdrawal: Yes Have you been hit, kicked, punched, or otherwise hurt by someone within the past year? If so, by whom?: No Do you feel safe in your current relationship?: Yes Is there a partner from a previous relationship who is making you feel unsafe now?: No Are you made to feel afraid or neglected: No Advance Directives: No Advance Directives Information Provided: Yes Advance Directives on File: No Advance Directives Date on File: 01/30/21 Do you have a plan to hurt others: No Plan Recently lost weight without trying: No Eating poorly because of decreased appetite: No Nutrition Risks: No Nutritional Risk Poor oral hygiene: No service: No Current occupational status: unemployed Sexual orientation: Straight/Heterosexual
--- NOTE | 2025-04-29 15:44 | HO.WOUND ---
Wound Consult: Initial 35yr old?male admitted to [facility] on 04/28/25- See progress notes and H&P for detailed history.? Wound consult placed for Bilateral Arms.? Patient agreeable to assessment and is known to this machine sign writer from prior admissions. Patient is in active withdrawals per direct care nurse - providers aware -medicated per orders. Patient was agreeable to my assessment but quickly fell back to sleep and withdrawn from his environment. Will discuss harm reduction and community resources at future time when patient is more appropriate for conversation. Left Forearm Left Forearm Right Forearm Bilateral Forearm Etiology: Ulceration secondary to IVDU suspect Xylazine wounds Left Forearm 13cm x 11cm x 0.3cm Right Forearm 5cm x 4cm x 0.3cm Wound Bed: pink moist wound beds on left forearm - scattered areas of dry thick eschar Drainage / Odor: yellow nguyen no odor noted Edges: ? irregular and unattached Corinne wound: ?pink erythema No Induration, Fluctuance or Warmth noted Left forearm noted for swelling Goals of Treatment: ? Durafiber AG for moisture management Recommendations: 1. Turn and Reposition every 2 hours and as needed for patient comfort.? Use pillows or wedges to support off loading positions. 2. Off Load all bony prominences with use of pillows and heel boots if needed.? Apply Preventative foams where needed. ? 3. Monitor for incontinence and moisture control, use barrier creams when needed for prevention and treatment. 4. Provide adequate and supplemental nutrition.? Bilateral Forearm - Cleanse with NS moist gauze, pat dry. Apply durafiber AG to open central wound bed on left arm, cover with xeroform followed by dry gauze ABD pad and wrap. Change daily. Re-consult wound care Nurse for wound deterioration or wound changes.
--- NOTE | 2025-04-29 15:45 | MHC.CM.PN ---
CM attempted to speak with pt. x 2 today, he is soundly sleeping, will see him tomorrow.
--- NOTE | 2025-04-29 15:51 | W.PM.IDCN ---
History of Present Illness Data of Consult Service Date: 04/29/25 Requesting physician: Andrew Mason Primary Care Provider: Unknown Physician HPI Reason for consult: bilateral wounds He presents with bilateral exudate and eschar legs. He has no fever or chills. He has had wounds for several months. Review of Systems Review of Systems: Yes all other systems are reviewed and are negative PMFSH Past Medical History Medical History Prediabetes Bacteremia Arm ulcer MRSA bacteremia Suicidal ideation Depression Cocaine use with cocaine-induced disorder Opiate dependence, continuous Major depressive disorder, recurrent severe without psychotic features Depression Anxiety IVDU (intravenous drug user) Asthma Family History Family History Father Heart disease Family history: reviewed and not pertinent Surgical History Surgical History History of surgery on right wrist History of surgery (10/02/24) Social History Social History Household Members: Other Household Members Other:: mom Housing: House Housing Other:: lives with parents Are you a primary dog daycare provider to a significant other at home: No Do you presently have visiting nurse or other home services: No Alcohol intake: unknown Comment: refused bed alarm Patient Tobacco Use Status: Current everyday Tobacco user Tobacco use type: Cigarette Cigarette Packs Per Day: 1 Cigarettes Per Day: 20.0 Years Smoked: 10 Smoked in Last 30 Days: Yes e-Cigarette/Vaping Use: Currently Using Patient Interested in Nicotine Replacement: Yes Patient Given Instructions on How to Stop Smoking: Yes Date Education Initiated: 04/29/25 Second Hand Smoke Exposure: No Use of substances other than those prescribed or required for medical reasons: Yes Substance Use Type: Heroin Substance Use Frequency: Daily Substance Use Frequency Other:: approx 6-7 bags/day Last Used Substance: Just Prior to Admission Currently Displaying Signs/Symptoms of Drug Intoxication Withdrawal: Yes Have you been hit, kicked, punched, or otherwise hurt by someone within the past year? If so, by whom?: No Do you feel safe in your current relationship?: Yes Is there a partner from a previous relationship who is making you feel unsafe now?: No Are you made to feel afraid or neglected: No Advance Directives: No Advance Directives Information Provided: Yes Advance Directives on File: No Advance Directives Date on File: 01/30/21 Do you have a plan to hurt others: No Plan Recently lost weight without trying: No Eating poorly because of decreased appetite: No Nutrition Risks: No Nutritional Risk Poor oral hygiene: No service: No Current occupational status: unemployed Sexual orientation: Straight/Heterosexual Meds Allergies Allergy/AdvReac Type Severity Reaction Status Date / Time Pertussis Vaccines Allergy Mild HIVES Verified 04/28/25 16:43 (PERTUSSIS VACCINES) haloperidol (From Haldol) Allergy Anaphylaxis Verified 04/28/25 16:43 Active Medications: Current Medications Acetaminophen (Acetaminophen 325 Mg Tablet) 650 mg PO Q6H PRN PRN Reason: Pain, Mild 1-3,fever,headache Albuterol/Ipratropium (Albuterol/Iprat 2.5/0.5mg 3 Ml Ampul.Neb) 3 ml INHALE RQ4H PRN PRN Reason: Shortness of Breath/Wheezing Calcium Carbonate (Calcium Carbonate 750 Mg Tab.Chew) 750 mg PO Q4H PRN PRN Reason: Heartburn Dextrose (Dextrose 50 % 25 Gm/50 Ml Syringe) 25 gm IVPUSH Q15M PRN; Protocol PRN Reason: per Hypoglycemia Standing Ord. Diazepam (Diazepam 10 Mg/2 Ml Cartridge) 10 mg IVPUSH Q6H PRN PRN Reason: Opiate Withdrawal Enoxaparin Sodium (Enoxaparin Sodium 40 Mg/0.4 Ml Syringe) 40 mg SUBCUT Q24H [facility] Last Admin: 04/28/25 22:12 Dose: 40 mg Glucose (Glucose Gel 15 Gm Gel..Gram.) 15 gm PO Q15M PRN; Protocol PRN Reason: per Hypoglycemia Standing Ord. Vancomycin HCl 1,500 mg/ (Sodium Chloride) 500 mls @ 333.333 mls/hr IV Q12H [facility] Last Infusion: 04/29/25 14:12 Dose: Infused Insulin Human Lispro (Insulin Lispro 100 Unit/Ml 3 Ml Vial) 0 unit SUBCUT QIDACHS [facility]; Protocol Last Admin: 04/29/25 12:27 Dose: Not Given Magnesium Hydroxide (Milk Of Magnesia 30 Ml Oral.Susp) 30 ml PO DAILY PRN PRN Reason: Constipation Melatonin (Melatonin 3 Mg Tablet) 6 mg PO BEDTIME PRN PRN Reason: Insomnia Mirtazapine (Mirtazapine 7.5 Mg Tablet) 7.5 mg PO BEDTIME [facility] Ondansetron HCl (Ondansetron Hcl 4 Mg/2 Ml Vial) 4 mg IVPUSH Q8H PRN PRN Reason: Nausea and Vomiting Pantoprazole Sodium (Pantoprazole Sodium 40 Mg/10 Ml Vial) 40 mg IVPUSH BID@0630,1630 [facility] Last Admin: 04/29/25 06:20 Dose: Not Given Pharmacy Consult (Consult Rx Vancomycin Dosing) 1 each MISCELLANE DAILY PRN PRN Reason: Consult order Polyethylene Glycol (Polyethylene Glycol 3350 17 Gm Powd.Pack) 17 gm PO DAILY PRN PRN Reason: Constipation Sodium Chloride (0.9 % Sodium Chloride Flush 3 Ml Syringe) 3 ml IVFLUSH QSHIFT [facility] Last Admin: 04/29/25 08:10 Dose: Not Given Home Medications ?Medication ?Instructions ?Recorded ?Confirmed ?Last Taken ?Type methadone 10 mg/mL oral 170 mg PO DAILY 10/13/23 03/04/25 03/03/25 History concentrate (Methadone Intensol) clonazepam 1 mg tablet 1 mg PO TID 02/28/24 04/29/25 04/28/25 History clonidine HCl 0.1 mg tablet 0.1 mg PO TID 02/28/24 04/29/25 04/28/25 History gabapentin 300 mg capsule 300 mg PO BEDTIME 02/28/24 04/29/25 04/28/25 History gabapentin 600 mg tablet 600 mg PO TID 02/28/24 04/29/25 04/28/25 History mirtazapine 7.5 mg tablet 7.5 mg PO BEDTIME 02/28/24 04/29/25 04/28/25 History quetiapine 100 mg tablet 100 - 200 mg PO BEDTIME PRN 02/28/24 04/29/25 Unknown History Insomnia escitalopram oxalate 10 mg tablet 10 mg PO DAILY 02/01/25 04/29/25 04/28/25 History doxepin 10 mg capsule 10 - 20 mg PO BEDTIME PRN 04/29/25 04/29/25 Unknown History Anxiety/Sleep omeprazole 20 mg capsule,delayed 20 mg PO DAILY@0630 04/29/25 04/29/25 04/28/25 History release Physical Exam Vital Signs: Vital Signs: Last Vital Signs Temp 97 F 04/29/25 15:26 Pulse 55 04/29/25 15:26 Resp 18 04/29/25 15:26 BP 137/68 04/29/25 15:26 Pulse Ox 98 04/29/25 15:26 O2 Del Method Room Air 04/29/25 15:26 BMI result Body Mass Index 29.9 Const: General: cooperative HEENT: Head: Yes normal to inspection Face and sinus: Yes normal facial exam Mouth: Normal oral and palatal mucosa present Teeth and gingiva: dentition normal Eyes: General: appearance normal, both eyes and all related structures Pupils: Equal, round and reactive pupils present Resp: Effort & Inspection: normal respiratory effort Cardio: Rate: regular rate Rhythm: regular rhythm GI: Palpation (GI): Soft to palpation and nontender : General: Yes no CVA tenderness Back/Spine/Pelvis: Back: no CVA tenderness Skin: General skin exam: no rashes or lesions noted Neuro: General: moves all extremities Cranial nerves: Yes Equal, round and reactive pupils present Extrem: Other: scaly bilateral legs eschar Psych: Appearance: grossly normal Results Labs 04/29/25 06:59 04/29/25 06:59 Labs: Short CBC 04/28/25 04/28/25 04/29/25 Range/Units 18:19 23:23 06:59 WBC 8.4 6.0 (4.8-10.8) X10*3/uL Hgb 7.3 L 7.3 L 7.3 L (14.0-18.0) g/dl Hct 26.2 L 26.0 L 26.5 L (42.0-52.0) % Plt Count 360 325 (160-400) X10*3/uL BMP 04/28/25 04/28/25 04/29/25 18:19 23:23 06:59 Sodium 141 140 140 Potassium 4.0 3.9 3.7 Chloride 108 110 H 110 H Carbon Dioxide 26 24 24 BUN 20 H 15 12 Creatinine 0.61 0.54 0.53 Calcium 9.3 8.9 8.7 Cardiac Enzymes 04/28/25 Range/Units 18:19 Total Creatine Kinase 36 L (38-174) U/L Liver Function 09/28/25 09/29/25 Range/Units 18:19 06:59 Total Bilirubin 0.2 0.3 (0.0-1.0) mg/dL AST 21 20 (5-37) U/L ALT 12 9 (0-40) U/L Alkaline Phosphatase 77 64 (39-117) U/L Albumin 4.2 3.3 L (3.5-5.0) g/dL Urine 04/29/25 Range/Units 05:15 Urine Color Yellow Urine Appearance Clear Urine pH 6.0 (5.0-9.0) Ur Specific [place] >= 1.030 H (1.005-1.025) Urine Protein Trace (Neg-Trace) mg/dL Urine Glucose (UA) Negative (Negative) mg/dL Assessment and Plan (1) Major depressive disorder, recurrent severe without psychotic features: Status: Acute (2) Opioid use disorder: Status: Acute (3) Cellulitis: Qualifiers: Laterality: unspecified laterality Site of cellulitis: extremity Site of cellulitis of extremity: upper extremity Qualified Code(s): L03.119 - Cellulitis of unspecified part of limb Status: Acute Plan He has likely xylazine from substance use disorder. Would give po Doxycycline for 10 days likely cover any superficial infection,
[2025-04-29 16:08] LABS: Glucose, Whole Blood 85 mg/dL (60-115)
[2025-04-29] MEDS: 0.9 % Sodium Chloride Flush 3 ML SYRINGE IVFLUSH ×3 (16:38→21:17)
--- NOTE | 2025-04-29 16:55 | MHC.RECOVRN ---
T/W attempted to meet with pt. in 485-1 to complete Eval and offer support Pt resting and would only awake breifly to loud voice and touch. Will re attempt once pt more alert. Call placed to [facility] to confirm methadone dosing. Dose verified and sent to pharmacy. Information also communicated to Trista Bolanos NP.
[2025-04-29] MEDS: diazePAM 10 MG/2 ML CARTRIDGE IVPUSH (17:57)
--- NOTE | 2025-04-29 19:29 | HE.PHANOTE ---
RE: METHADONE CHARLEY Bird from [facility] confirmed patient dose is 170 mg. Patient was given a dose and 3 take home bottles on 04/25/25 @1028.
[2025-04-29 20:07] LABS: Glucose, Whole Blood 130 mg/dL (60-115)
[2025-04-30 03:21] VITALS: BP 132/64; PULSE 62; RESP 16; TEMP 37.3; O2SAT 99
[2025-04-30 06:55] LABS: Creatinine Clr Calc Pharmacy 198.9; Estimated Glomerular Filt Rate > 60
--- NOTE | 2025-04-30 07:09 | HE.PHANOTE ---
RE VANCO DOSING TROUGH TODAY 11.4. SCR STABLE. WILL CHANGE DOSE TO 1250 Q8 HOURS AND RECHECK LEVEL 101/1 @0600 TO ENSURE SAFE AND EFFICACIOUS DOSING.
[2025-04-30 07:56] VITALS: BP 118/64; PULSE 56; RESP 18; TEMP 36.6; O2SAT 96
[2025-04-30 07:57] LABS: Glucose, Whole Blood 101 mg/dL (60-115)
--- NOTE | 2025-04-30 08:35 | PM.PNGS ---
Subjective Subjective Date of Service: 04/30/25 Interval history: Doing better today, still withdrawing. seems more comfortable. Pain improved a bit, remains worse in the left arm Physical Exam Vital Signs: Vital Signs: Last Vital Signs Temp 97.8 F 04/30/25 07:56 Pulse 56 04/30/25 07:56 Resp 18 04/30/25 07:56 BP 118/64 04/30/25 07:56 Pulse Ox 96 04/30/25 07:56 O2 Del Method Room Air 04/30/25 07:56 BMI result Body Mass Index 29.9 Const: General: comfortable and no acute distress Orientation/consciousness: patient oriented x3 Resp: Effort & Inspection: normal respiratory effort and able to speak in complete sentences Neuro: General: patient oriented x3 Extrem: Other: Left Forearm 13cm x 11cm x 0.3cm Central area of pink tissue, slough on dressings. surrounded by thick eschar Right Forearm 5cm x 4cm x 0.3cm thick eschar, no active draingage Objective Data Active Medications Acetaminophen (Acetaminophen 325 Mg Tablet) 650 mg PO Q6H PRN PRN Reason: Pain, Mild 1-3,fever,headache Albuterol/Ipratropium (Albuterol/Iprat 2.5/0.5mg 3 Ml Ampul.Neb) 3 ml INHALE RQ4H PRN PRN Reason: Shortness of Breath/Wheezing Calcium Carbonate (Calcium Carbonate 750 Mg Tab.Chew) 750 mg PO Q4H PRN PRN Reason: Heartburn Dextrose (Dextrose 50 % 25 Gm/50 Ml Syringe) 25 gm IVPUSH Q15M PRN; Protocol PRN Reason: per Hypoglycemia Standing Ord. Diazepam (Diazepam 10 Mg/2 Ml Cartridge) 10 mg IVPUSH Q6H PRN PRN Reason: Opiate Withdrawal Last Admin: 04/29/25 17:57 Dose: 10 mg Documented By: YESENIA Enoxaparin Sodium (Enoxaparin Sodium 40 Mg/0.4 Ml Syringe) 40 mg SUBCUT Q24H SUKHDEEP Last Admin: 04/29/25 21:13 Dose: 40 mg Documented By: STARLA Glucose (Glucose Gel 15 Gm Gel..Gram.) 15 gm PO Q15M PRN; Protocol PRN Reason: per Hypoglycemia Standing Ord. Vancomycin HCl 1,250 mg/ (Sodium Chloride) 250 mls @ 166.667 mls/hr IV Q8H [facility] Last Infusion: 04/30/25 08:27 Dose: 0 mls/hr Documented By: GRANT Insulin Human Lispro (Insulin Lispro 100 Unit/Ml 3 Ml Vial) 0 unit SUBCUT QIDACHS [facility]; Protocol Last Admin: 04/30/25 07:58 Dose: Not Given Documented By: GRANT Non-Admin Reason: Glucose out of range Magnesium Hydroxide (Milk Of Magnesia 30 Ml Oral.Susp) 30 ml PO DAILY PRN PRN Reason: Constipation Melatonin (Melatonin 3 Mg Tablet) 6 mg PO BEDTIME PRN PRN Reason: Insomnia Mirtazapine (Mirtazapine 7.5 Mg Tablet) 7.5 mg PO BEDTIME [facility] Last Admin: 04/29/25 21:49 Dose: Not Given Documented By: STARLA Non-Admin Reason: Patient Asleep Ondansetron HCl (Ondansetron Hcl 4 Mg/2 Ml Vial) 4 mg IVPUSH Q8H PRN PRN Reason: Nausea and Vomiting Pantoprazole Sodium (Pantoprazole Sodium 40 Mg/10 Ml Vial) 40 mg IVPUSH BID@0630,1630 [facility] Last Admin: 04/30/25 05:27 Dose: 40 mg Documented By: STARLA Pharmacy Consult (Consult Rx Vancomycin Dosing) 1 each MISCELLANE DAILY PRN PRN Reason: Consult order Polyethylene Glycol (Polyethylene Glycol 3350 17 Gm Powd.Pack) 17 gm PO DAILY PRN PRN Reason: Constipation Sodium Chloride (0.9 % Sodium Chloride Flush 3 Ml Syringe) 3 ml IVFLUSH QSHIFT [facility] Last Admin: 04/29/25 21:17 Dose: 3 ml Documented By: STARLA Labs 04/29/25 06:59 04/30/25 06:35 Labs: Laboratory Results - last 24 hr 04/29/25 04/29/25 04/29/25 09:19 11:14 16:00 Estim Creat Clear Calc Estimated GFR POC Glucose 82 96 85 Random Vancomycin 04/29/25 04/30/25 04/30/25 20:03 06:35 07:51 Estim Creat Clear Calc 198.9 Estimated GFR > 60 POC Glucose 130 H 101 Random Vancomycin 11.4 L Microbiology Microbiology Results: Microbiology 04/28/25 18:18 Blood Culture - Preliminary Blood - Venous No growth after 24 hours. 04/28/25 18:18 Blood Culture - Preliminary Blood - Venous No growth after 24 hours. Procedures Date of Service Date of Service: 04/30/25 Progress Note: A&P Assessment and plan (1) Polysubstance abuse: Status: Acute (2) Arm ulcer: Status: Acute Plan 35 year old male admitted after OD, followed by general surgery for wound care, bilateral forearm wounds. Doing better today, continues to withdraw, but participated in evaluation. Still has some pain in the arms, worse in the left. Denies fevers or chills. Wounds appear similar today, there remains a central area of oink healthy tissue on the wound bed on the left arm surroundned by a thick eschar. Right arm has thick eschar, unable to see the wound bed. We will continue with recommendations from wound care, Josselyn did not think this needed OR debridement at this time. Dressings as follows, durafiber on healthy tissue, xeroform over the rest of the eschar to soften for bedside debridment. cover with guaze and kerlix. Contniue IV abx daily dressing changes as above. will attempt debridment tomorrow Time Spent With Patient Time: Total time managing care of this patient today ____ minutes. Quality Stroke Does the patient have a stroke diagnosis?: No Reason for No Anti-thrombotic by Day Two: N/A - Med Ordered VTE Prior VTE?: No VTE Risk Level:: Medical - moderate - high VTE Device Contraindication: N/A - Device Ordered VTE Drug Contraindication: N/A - Med Ordered
--- NOTE | 2025-04-30 08:59 | MHC.CM.PN ---
Pt. lives with family, he does not have a PCP, brochure to be provided. Pt. goes to [facility] for Methadone. He does not use home health services or DME. He can arrange a ride home at [place]. DCP: In H&P is stated that pt. is seeking services for mental health / Addiction, ? care team eval to assist with DCP. CM to follow for DC needs.
--- NOTE | 2025-04-30 09:58 | PM.DS ---
DS: Providers Provider Date of Service: 04/30/25 Date of admission: 04/28/25 21:42 Date of discharge: 04/30/25 Primary care physician: Unknown Physician Consults: 04/28/25 21:46 Addiction Medicine Provider Routine Consulting Provider: Addiction Covering Reason for consultation: overdose req narcan, on methadone Consult to Psychiatry Routine Consulting Provider: [facility] Psych Covering Reason for consultation: overdose req narcan, MDD Has provider been notified: No 04/28/25 22:23 Consult to General Surgery Routine Consulting Provider: [facility] General Surgeons Reason for consultation: B celluliits, IVDA 04/28/25 22:24 Consult to Infectious Diseases Routine Consulting Provider: [facility] Infectious Disease Center Reason for consultation: B celluilitis IVDA 04/29/25 07:31 Consult to Wound Care Routine Reason for consultation: Forearm wounds DS: Diagnosis Discharge Diagnosis (1) Polysubstance abuse: Status: Acute (2) Arm ulcer: Status: Acute DS: Summary Hospital Course Hospital Course: from initial hpi: 35 yo male with PMH ELMER (started 15 years ago) on methadone, use of IVD and continuing upper arm infections in B forearms (L hand dominant), Bacteremia, urinary retention, Tobacco dependnece, MDD, chromic anemia BIBA after being receiving narcan for taking 9 baggies of heroin. Pt was found by his mother and administered the narcan and then called 911. Pt has notable wounds on B forearms from IVDA. Pt states he obtains his methadone weekly and took his last dose yesterday. Pt states he was not feeling suicidal when he took the large amount of heroin. Pt states it was accidental. Pt states this is it, I want to live . Pt denies current chest pain, SOB at rest, is alert and orientated X3, able to participate in exam and answer questions, follow commands and can protect his airway. Request from ED for admisison for B cellulitis from IVDA and pt is asking for help with his addiction. Pt currently denies CP, SOB at rest, JUNIOR, abd pain, N/V but has been having chills and fever over the last few weeks intermittently. Pt wore long sleeves when picking up his methadone. Pt was following with wound care, but reports noncompliance. Pt has not sought medical care for noted wounds. Pt denies hx of Hep C, B and HIV and is ok with testing this admission. Pt denies issues with alcohol use. Work up in ED notes CTA to rule out PE and septic emboli of the lungs. CTA neg for PE with no acute intrathoracic findings including PNA. Splenomagly noted and plts are WNL. Enlarged left axillary lymph nodes also reported. Pt currently afebrile, no luekocytosis, hemodynamics relatively stable with HR sometimes dipping in the 50s with normal FL and Qtc 479. MG pending. H/H 7.3/26.2, repeat H/H pending. Stool for occult in ED negative. Pt was started on Vancomycin and Doxycyline but changing to Vanco and ANcef for now. BC pending. UA pending. Urine toxicology screen also pending. Upon review of pt's medical record, pt did have surgery with Dr. Prakash September of 2024 for ulcers on B upper exteremities. hospital course: Patient was admitted for acute toxic metabolic encephalopathy due to unintentional opiate overdose. Patient was monitored and resolved. Was seen by addiction who continued methadone for opiate dependence with withdrawal. For chronic bilateral arm wounds with superimposed acute cellulitis was seen by surgery felt no intervention required was seen by infectious disease who recommended 10 days of doxycycline. Inpatient patient was treated with IV vancomycin. For chronic inflammatory and iron-deficiency anemia remained stable. For urinary retention due to encephalopathy this resolved as patient mental status improved. For mood disorder was continued on mood stabilizers. Patient is feeling better and will be discharged home. Time Attestation Discharge Coordination Time (in mins): 33 Quality: Safe Use of Opioids Does Pt have an Active Cancer Diagnosis on the Problem List?: No Quality: Stroke Does the patient have a stroke diagnosis?: No Physical Exam Vital Signs: Vital Signs: Last Vital Signs Temp 97.8 F 04/30/25 07:56 Pulse 56 04/30/25 07:56 Resp 18 04/30/25 07:56 BP 118/64 04/30/25 07:56 Pulse Ox 96 04/30/25 07:56 O2 Del Method Room Air 04/30/25 07:56 BMI result Body Mass Index 29.9 Const: General: comfortable and no acute distress Orientation/consciousness: patient oriented x3 Resp: Effort & Inspection: normal respiratory effort and able to speak in complete sentences Neuro: General: patient oriented x3 Extrem: Other: Left Forearm 13cm x 11cm x 0.3cm Central area of pink tissue, slough on dressings. surrounded by thick eschar Right Forearm 5cm x 4cm x 0.3cm thick eschar, no active draingage DS: Data Data Completed and Pending Completed studies during hospitalization [Text1]: Procedures Excision of Duodenum, Via Natural or Artificial Opening Endoscopic, Diagnostic (01/01/24) Excision of Left Lower Arm Skin, External Approach (09/27/24) Excision of Rectum, Via Natural or Artificial Opening Endoscopic, Diagnostic (01/01/24) Excision of Right Lower Arm Skin, External Approach (09/27/24) Excision of Stomach, Pylorus, Via Natural or Artificial Opening Endoscopic, Diagnostic (01/01/24) Extraction of Left Lower Arm Skin, External Approach (02/01/25) Extraction of Right Lower Arm Skin, External Approach (02/01/25) Insertion of Endotracheal Airway into Trachea, Via Natural or Artificial Opening (09/27/24) Insertion of Infusion Device into Superior Vena Cava, Percutaneous Approach (09/27/24) Insertion of Infusion Device into Upper Vein, Percutaneous Approach (02/01/25) Introduction of Vasopressor into Peripheral Vein, Percutaneous Approach (09/27/24) Respiratory Ventilation, 24-96 Consecutive Hours (09/27/24) Transfusion of Nonautologous Red Blood Cells into Peripheral Vein, Percutaneous Approach (03/02/25) Ultrasonography of Superior Vena Cava, Guidance (09/27/24) Labs on day of discharge: Laboratory Results - last 24 hr 04/29/25 04/29/25 04/29/25 11:14 16:00 20:03 Creatinine Estim Creat Clear Calc Estimated GFR POC Glucose 96 85 130 H Random Vancomycin 04/30/25 04/30/25 06:35 07:51 Creatinine 0.58 Estim Creat Clear Calc 198.9 Estimated GFR > 60 POC Glucose 101 Random Vancomycin 11.4 L Preliminary micro results at discharge 04/28/25 18:18 Blood Culture - Preliminary Blood - Venous No growth after 24 hours. 04/28/25 18:18 Blood Culture - Preliminary Blood - Venous No growth after 24 hours. Discharge Plan Discharge Anticipated Discharge Date/Time: 04/30/25 09:56 Patient Disposition: Home, Self-Care Discharge Diagnosis: od, cellulitis Referrals: Physician,Unknown J [Primary Care Provider, Medical] - 1 Week Discharge Medications: New doxycycline hyclate 100 mg capsule 100 mg PO BID Qty: 20 0RF Continued methadone [Methadone Intensol] 10 mg/mL Concentrate 170 mg PO DAILY Patient Comments: 170 MG GIVEN ON 04/25/25 WITH 3 TAKE HOME BOTTLES PER ARIEL GALLAGHERTA doxepin 10 mg capsule 10 - 20 mg PO BEDTIME PRN (Reason: Anxiety/Sleep) omeprazole 20 mg capsule,delayed release(DR/EC) 20 mg PO DAILY@0630 clonidine HCl 0.1 mg tablet 0.1 mg PO TID gabapentin 600 mg tablet 600 mg PO TID Rx Instructions: TAKEN WITH 300MG CAP FOR TOTAL NIGHT DOSE OF: 900MG clonazepam 1 mg tablet 1 mg PO TID quetiapine 100 mg tablet 100 - 200 mg PO BEDTIME PRN (Reason: Insomnia) gabapentin 300 mg capsule 300 mg PO BEDTIME Rx Instructions: TAKEN WITH 600MG CAP FOR TOTAL NIGHT DOSE:900MG mirtazapine 7.5 mg tablet 7.5 mg PO BEDTIME escitalopram oxalate 10 mg tablet 10 mg PO DAILY Discharge Orders: Discharge Order (Routine); Ordered 04/30/25 Ordered By: Andrew Mason Diet: Advance to usual diet Activity on Discharge: As tolerated Stand Alone Forms: Patient Portal Discharge page Print Language: Afghan Care Plan Goals: recovery Health Concerns: consuelo patel Plan of Treatment: 10 days doxy, no drugs Assessment: see above
--- NOTE | 2025-04-30 10:20 | MHC.CM.PN ---
Pt. has been medically cleared to [place], he will go home via family transport, plan is self care.
[2025-04-30] MEDS: methADONE HCl 20 MG/2 ML ORAL.CONC 170 MG PO (11:25)
[2025-04-30] MEDS: Naloxone HCl Nasal TAKE HOME 4 MG SPRAY 8 MG NOSTRILALT (11:25)
[2025-04-30 11:28] LABS: Glucose, Whole Blood 166 mg/dL (60-115)
[2025-04-30 11:39] VITALS: BP 129/76; PULSE 64; RESP 18; TEMP 36.8; O2SAT 99
== END 2025-04-30 13:01 | disposition home or self-care (01) | DRG 816 ==
LOC: HO.ED 21:49 → HO.EDOVER 21:50 → HO.IMC 04-29 01:07
PROVIDERS: Physician Assistant Medical; Admitting Provider Nurse Practitioner Family; Emergency Provider Emergency Medicine Emergency Medical Services; Visit Provider Internal Medicine
DX: T40.1X1A Poisoning by heroin, accidental (unintentional), initial encounter (principal); G92.8 Other toxic encephalopathy; D50.9 Iron deficiency anemia, unspecified; F11.20 Opioid dependence, uncomplicated; F17.210 Nicotine dependence, cigarettes, uncomplicated; F19.90 Other psychoactive substance use, unspecified, uncomplicated; F32.9 Major depressive disorder, single episode, unspecified; T50.995S Adverse effect of other drugs, medicaments and biological substances, sequela; L98.499 Non-pressure chronic ulcer of skin of other sites with unspecified severity; L03.114 Cellulitis of left upper limb; L03.113 Cellulitis of right upper limb; R94.31 Abnormal electrocardiogram [ECG] [EKG]; R33.9 Retention of urine, unspecified; T40.5X1A Poisoning by cocaine, accidental (unintentional), initial encounter; Z86.14 Personal history of Methicillin resistant Staphylococcus aureus infection; Z71.6 Tobacco abuse counseling; Z79.899 Other long term (current) drug therapy
CPT/HCPCS: 36415; 71275; 80048; 80053; 80179; 80202; 80307; 81001; 82272; 82550; 82565; 82607; 82947; 83036; 83540; 83605; 83735; 84443; 84484; 85014; 85018; 85025; 85652; 86140; 86704; 86706; 86709; 86803; 86850; 86900; 86901; 87040; 87340; 87389; 93005; 99285; J0131; J0690; J1271; J1650; J2470; J3360; J3373; J3374; J7120; Q9967

== ENCOUNTER → 2025-04-28 16:46 | Outpatient (BNV) | payer OTHER, SELFPAY | PROVIDERS: Admitting Provider Nurse Practitioner Family; Emergency Provider Emergency Medicine Emergency Medical Services; Visit Provider Internal Medicine Cardiovascular Disease | DX: T43.691A Poisoning by other psychostimulants, accidental (unintentional), initial encounter (principal) | CPT/HCPCS: 93010 ==

== ENCOUNTER → 2025-04-28 18:05 | Outpatient (BNV) | payer OTHER, SELFPAY | PROVIDERS: Emergency Provider Emergency Medicine Emergency Medical Services; Visit Provider Radiology Diagnostic Radiology | DX: R07.9 Chest pain, unspecified (principal); R16.1 Splenomegaly, not elsewhere classified; R59.0 Localized enlarged lymph nodes | CPT/HCPCS: 71275 ==

== ENCOUNTER → 2025-04-28 21:42 | Outpatient (BNV) | payer OTHER, SELFPAY | PROVIDERS: Admitting Provider Nurse Practitioner Family; Emergency Provider Emergency Medicine Emergency Medical Services; Visit Provider Internal Medicine | DX: L98.499 Non-pressure chronic ulcer of skin of other sites with unspecified severity (principal); L03.119 Cellulitis of unspecified part of limb; T50.901A Poisoning by unspecified drugs, medicaments and biological substances, accidental (unintentional), initial encounter | CPT/HCPCS: 99223; 99233; 99239 ==

== ENCOUNTER → 2025-04-28 21:42 | Outpatient (BNV) | payer OTHER, SELFPAY | PROVIDERS: Admitting Provider Nurse Practitioner Family; Emergency Provider Emergency Medicine Emergency Medical Services | DX: L98.499 Non-pressure chronic ulcer of skin of other sites with unspecified severity (principal); T14.8XXA Other injury of unspecified body region, initial encounter; L03.119 Cellulitis of unspecified part of limb | CPT/HCPCS: 99222; 99232 ==

== ENCOUNTER → 2025-04-28 21:42 | Outpatient (BNV) | payer OTHER, SELFPAY | PROVIDERS: Admitting Provider Nurse Practitioner Family; Emergency Provider Emergency Medicine Emergency Medical Services; Visit Provider Internal Medicine | DX: F33.2 Major depressive disorder, recurrent severe without psychotic features (principal); F11.90 Opioid use, unspecified, uncomplicated; L03.119 Cellulitis of unspecified part of limb | CPT/HCPCS: 99222 ==

== ENCOUNTER → 2025-04-28 21:42 | Outpatient (BNV) | payer OTHER, SELFPAY | PROVIDERS: Admitting Provider Nurse Practitioner Family; Emergency Provider Emergency Medicine Emergency Medical Services; Visit Provider Nurse Practitioner Psychiatric/Mental Health | DX: F11.90 Opioid use, unspecified, uncomplicated (principal) | CPT/HCPCS: 99221 ==

== ENCOUNTER 2025-05-17 10:15 | Outpatient (RCR) | payer OTHER, SELFPAY | END 2025-07-29 16:15 | disposition home or self-care (01) | LOC: HO.WCC 10:15 | PROVIDERS: PCP Internal Medicine; Visit Provider Surgery Vascular Surgery | DX: L98.492 Non-pressure chronic ulcer of skin of other sites with fat layer exposed (principal); M61.032 Myositis ossificans traumatica, left forearm; M61.03 Myositis ossificans traumatica, forearm; L03.114 Cellulitis of left upper limb; F42.4 Excoriation (skin-picking) disorder; F11.90 Opioid use, unspecified, uncomplicated; F14.90 Cocaine use, unspecified, uncomplicated; F17.200 Nicotine dependence, unspecified, uncomplicated; I25.2 Old myocardial infarction; Z79.2 Long term (current) use of antibiotics | CPT/HCPCS: 11042; 11045; 99212; 99213; 99214 ==